=== PATIENT | male | born 1950 | race Caucasian/White ===

== ENCOUNTER 2023-04-04 08:30 | Observation (INO) | payer MEDICARE, SELFPAY ==
[2023-04-04] VITALS (8 sets, daily range): BP systolic 93–149; BP diastolic 61–101; PULSE 55–84; RESP 16–18; TEMP 36.4–36.7; O2SAT 92–99; BMI 20.8; BMI 21.0
--- NOTE | 2023-04-04 09:00 | ED_ITS ---
HPI - General Adult General Chief complaint: Urogenital-Male Stated complaint: BLOOD IN URINE Time Seen by Provider: 04/04/23 08:40 Source: patient Source information: patient Mode of arrival: walk-in Limitations: no limitations History of Present Illness HPI narrative: 73-year-old male presents to the emergency department for blood in the toilet. He urinated and defecated during the night and there was blood in it. He doesn't have any abdominal pain now. He doesn't seem take any blood thinners. He has a history of some dementia and isn't able to provide extensive history. Related Data Home Medications Medication Instructions Recorded Confirmed aspirin 81 mg chewable tablet 1 tab PO DAILY 04/04/23 04/04/23 carbidopa 25 mg-levodopa 100 mg 1 tab PO TID 04/04/23 04/04/23 tablet donepezil 10 mg tablet 10 mg PO BEDTIME 04/04/23 04/04/23 potassium chloride 20 mEq 20 meq PO BID 04/04/23 04/04/23 tablet,extended release(part/cryst) (Klor-Con M) Allergies Allergy/AdvReac Type Severity Reaction Status Date / Time Penicillins Allergy Intermediate Verified 04/04/23 08:48 PFSH PFSH Social History Smoking status: Former smoker Exam Narrative Exam Narrative: Nurses note and vital signs reviewed and patient is not hypoxic. General: The patient appears well and in no apparent distress. Patient is resting comfortably on cart. Skin: Warm, dry, no pallor noted. There is no rash noted. Head: Normocephalic, atraumatic Eye: Normal conjunctiva, no drainage Ears, Nose, Mouth, and Throat: oral mucosa is moist. Nares patent. Cardiovascular: Regular Rate and Rhythm Respiratory: Patient is in no distress, no accessory muscle use, lungs are clear to auscultation, no wheezing, rales or rhonchi Back: non-tender GI: no tenderness to palpation, no masses appreciated. No rebound, guarding, or rigidity noted. rectal portion shows no external hemorrhoids. Musculoskeletal: The patient has no evidence of calf tenderness, no pitting edema, symmetrical pulses noted bilaterally Neurological: A&O, normal speech Psychiatric: Cooperative Constitutional Vital Signs, click to edit/add: Last Vital Signs Temp 97.6 F 04/04/23 08:38 Pulse 81 04/04/23 11:26 Resp 18 04/04/23 11:26 BP 149/100 H 04/04/23 11:26 Pulse Ox 98 04/04/23 11:26 O2 Del Method Room Air 04/04/23 08:38 Course Vital Signs Vital signs: Vital Signs Temperature 97.6 F 04/04/23 08:38 Pulse Rate 84 04/04/23 08:38 Respiratory Rate 16 04/04/23 08:38 Blood Pressure 130/101 H 04/04/23 08:38 Pulse Oximetry 98 04/04/23 08:38 Oxygen Delivery Method Room Air 04/04/23 08:38 Temperature 97.6 F 04/04/23 08:38 Pulse Rate 81 04/04/23 11:26 Respiratory Rate 18 04/04/23 11:26 Blood Pressure 149/100 H 04/04/23 11:26 Pulse Oximetry 98 04/04/23 11:26 Oxygen Delivery Method Room Air 04/04/23 08:38 Medical Decision Making MDM Narrative Medical decision making narrative: The patient is found to have acute diverticulitis. He will be admitted for IV antibiotics, Cipro and Flagyl was started here. Treatment diagnosis and disposition were discussed with the patient. Differential Diagnosis Differential Diagnosis: acute diverticulitis, abscess, perforation, polyp, upper GI bleed Lab Data Lab results reviewed: Yes I reviewed the patient's lab results Labs: Lab Results 04/04/23 04/04/23 Range/Units 08:08 11:32 WBC 8.1 (4.0-11.0) 10^3/uL RBC 4.53 L (4.70-6.10) 10^6/uL Hgb 12.9 L (14.0-18.0) g/dL Hct 40.0 L (42.0-54.0) % MCV 88.3 (80.0-94.0) fL MCH 28.5 (25.9-34.0) pg MCHC 32.3 (29.9-35.2) g/dL RDW 16.0 H (11.0-15.0) % Plt Count 267 (150-450) 10^3/uL MPV 9.5 (9.5-13.5) fL Neut % (Auto) 69.5 (43.0-75.0) % Lymph % (Auto) 19.9 L (20.5-60.0) % [place] % (Auto) 8.4 (1.7-12.0) % Eos % (Auto) 1.4 (0.9-7.0) % Baso % (Auto) 0.6 (0.2-2.0) % Neut # (Auto) 5.6 (1.4-6.5) 10^3/uL Lymph # (Auto) 1.6 (1.2-3.8) 10^3/uL [place] # (Auto) 0.7 (0.3-0.8) 10^3/uL Eos # (Auto) 0.1 (0.0-0.7) 10^3/uL Baso # (Auto) 0.1 (0.0-0.1) 10^3/uL Abs Immat Gran (auto) 0.02 (0.00-0.03) 10^3/uL Imm/Tot Granulo (auto) 0.2 (0.0-0.5) % Sodium 137 (136-145) mmol/L Potassium 4.3 (3.5-5.1) mmol/L Chloride 105 (98-107) mmol/L Carbon Dioxide 24.8 (21.0-32.0) mmol/L Anion Gap 11.5 BUN 18.0 (7.0-18.0) mg/dL Creatinine 1.67 H (0.70-1.30) mg/dL Est GFR ( Amer) 49 L (>=60) Est GFR (Non-Af Amer) 41 L (>=60) BUN/Creatinine Ratio 10.8 Glucose 84 (74-106) mg/dL Calcium 8.9 (8.5-10.1) mg/dL Urine Color Lt. yellow (YELLOW) Urine Clarity Clear (CLEAR) Urine pH 5.5 (5.0-9.0) Ur Specific [place] <=1.005 A (1.005-1.025) Urine Protein Negative (NEG/TRACE) mg/dL Urine Glucose (UA) Negative (NEGATIVE) mg/dL Urine Ketones Negative (NEGATIVE) mg/dL Urine Occult Blood Negative (NEGATIVE) Urine Nitrite Negative (NEGATIVE) Urine Bilirubin Negative (NEGATIVE) Urine Urobilinogen 0.2 (0.2-1.0) EU/dL Ur Leukocyte Esterase Negative (NEGATIVE) Discharge Plan Discharge Chief Complaint: Urogenital-Male Clinical Impression: Acute diverticulitis Patient Disposition: Admitted As Inpatient Time of Disposition Decision: 12:05 Condition: Good Prescriptions / Home Meds: No Action donepezil 10 mg tablet 10 mg PO BEDTIME Patient Comments: 1-2 tabs potassium chloride [Klor-Con M20] 20 mEq tablet,ER particles/crystals 20 meq PO BID aspirin 81 mg tablet,chewable 1 tab PO DAILY carbidopa-levodopa 25-100 mg tablet 1 tab PO TID Referrals: Uche Mike MD [Primary Care Provider] - 1 week
[2023-04-04 09:11] LABS: Basophils Absolute Auto 0.1 10^3/uL (0.0-0.1); Basophils Percent Auto 0.6 % (0.2-2.0); Eosinophils Absolute Auto 0.1 10^3/uL (0.0-0.7); Eosinophils Percent Auto 1.4 % (0.9-7.0); Hemoglobin 12.9 g/dL (14.0-18.0); Immature Granulocytes Abs Auto 0.02 10^3/uL (0.00-0.03); Immature Granulocytes Pct Auto 0.2 % (0.0-0.5); Lymphocytes Absolute Auto 1.6 10^3/uL (1.2-3.8); Lymphocytes Percent Auto 19.9 % (20.5-60.0); Mean Corpuscular HGB Conc 32.3 g/dL (29.9-35.2); Mean Corpuscular Hemoglobin 28.5 pg (25.9-34.0); Mean Corpuscular Volume 88.3 fL (80.0-94.0); Mean Platelet Volume 9.5 fL (9.5-13.5); Monocytes Absolute Auto 0.7 10^3/uL (0.3-0.8); Monocytes Percent Auto 8.4 % (1.7-12.0); Neutrophils Absolute Auto 5.6 10^3/uL (1.4-6.5); Neutrophils Percent Auto 69.5 % (43.0-75.0); Platelet Count 267 10^3/uL (150-450); Red Blood Count 4.53 10^6/uL (4.70-6.10); White Blood Count 8.1 10^3/uL (4.0-11.0)
--- NOTE | 2023-04-04 09:16 | CT_ITS ---
The [address] [address] Patient Name: EFRAÍN RAMON MRN: [id number] date: 1950 Sex: M Assigned Patient Location: ER Current Patient Location: ER Accession/Order Number: [id number] Exam Date: 04/04/2023 09:53 Report Date: 04/04/2023 10:31 At the request of: ODELL RODRÍGUEZ Procedure: CT abdomen pelvis w con EXAM: CT abdomen pelvis w con HISTORY: rectal bleeding COMPARISON: 07/29/2022. TECHNIQUE: Axial CT imaging was performed through the abdomen and pelvis with intravenous contrast. Multiplanar reformats were performed. Dose reduction techniques were achieved by using automated exposure control and/or adjustment of mA and/or kV according to patient size and/or use of iterative reconstruction technique. FINDINGS: Lung bases: Chronic granulomatous calcifications are demonstrated within lung bases. GI upper: Unremarkable. Liver: Hepatic steatosis. Normal size and contour. Gallbladder: Cholecystectomy. Biliary system: No intra or extrahepatic biliary ductal dilatation. Spleen: Normal size. Pancreas: Unremarkable. Adrenal glands: Normal adrenal glands. Kidneys/ureters: Normal contours. No hydronephrosis or ureterolithiasis. No nephrolithiasis. Simple fluid attenuation bilateral renal cysts are again demonstrated. Vessels: No aneurysmal dilatation of the aorta. Atherosclerotic disease is noted. Lymph Nodes: No lymphadenopathy. Small bowel: No wall thickening or dilatation. Colon: No dilatation. Colonic diverticulosis. There is mild wall thickening and adjacent stranding associated with the proximal sigmoid colon. No active extravasation is appreciated on single phase of contrast. Appendix: No findings of appendicitis. Peritoneal cavity: No free fluid or peritoneum. Lower : Treatment related findings of the prostate. Bones: Degenerative findings without acute bony abnormality. Soft tissues: No acute finding. Additional findings: None. IMPRESSION: 1. Findings suspicious for mild, uncomplicated acute diverticulitis the proximal sigmoid colon. 2. Please see above for additional findings/discussion. Electronically authenticated by: VALENTINO CUELLAR Date: 04/04/2023 10:31
[2023-04-04 09:27] LABS: Anion Gap 11.5; BUN Creatinine Ratio 10.8; Calcium 8.9 mg/dL (8.5-10.1); Carbon Dioxide 24.8 mmol/L (21.0-32.0); Chloride 105 mmol/L (98-107); Estimated GFR (African America 49 (>=60); Estimated GFR (Non-African Ame 41 (>=60); Glucose 84 mg/dL (74-106); Potassium 4.3 mmol/L (3.5-5.1); Sodium 137 mmol/L (136-145)
[2023-04-04] MEDS: CIPROFLOXACIN IN 5 % DEXTROSE 400 MG/200 ML PIGGYBACK IV (10:44)
[2023-04-04] MEDS: METRONIDAZOLE/SODIUM CHLORIDE 500 MG/100 ML PREMIX 100 MG IV ×3 (11:44→23:13)
[2023-04-04 11:49] LABS: Bilirubin Urine NEGATIVE (NEGATIVE); Blood Urine NEGATIVE (NEGATIVE); Clarity Urine CLEAR (CLEAR); Color Urine LT. YELLOW (YELLOW); Glucose Urine UA NEGATIVE (NEGATIVE); Ketones Urine NEGATIVE (NEGATIVE); Leukocyte Esterase Urine NEGATIVE (NEGATIVE); Nitrite Urine NEGATIVE (NEGATIVE); Protein Urine NEGATIVE (NEG/TRACE); Specific Gravity Urine <=1.005 (1.005-1.025); Urobilinogen Urine 0.2 EU/dL (0.2-1.0); pH Urine 5.5 (5.0-9.0)
[2023-04-04 11:51] LABS: Urine Microscopic Indicated NO
--- NOTE | 2023-04-04 14:03 | P.HP_ITS ---
H&P: HPI History of Present Illness Chief complaint: BLOOD IN URINE Narrative: Patient managed with in ER for acute abdominal pain. Also some altered mental status. In ER found to have acute diverticulitis with complication of the altered mental status. Patient will be admitted for work-up and treatment of sa wv Review of Systems ROS Status of ROS 10 or more systems reviewed and unremarkable except as noted in history and below [facility] Medical History (Updated 04/04/23 @ 14:50 by Yancy Grayson) Surgical History (Updated 04/04/23 @ 14:50 by Yancy Grayson) Social History Smoking status: Former smoker Meds Home Medications and Allergies Home Medications Medication Instructions Recorded Confirmed Type aspirin 81 mg chewable tablet 1 tab PO DAILY 04/04/23 04/04/23 History carbidopa 25 mg-levodopa 100 mg 1 tab PO TID 04/04/23 04/04/23 History tablet donepezil 10 mg tablet 10 mg PO BEDTIME 04/04/23 04/04/23 History potassium chloride 20 mEq 20 meq PO BID 04/04/23 04/04/23 History tablet,extended release(part/cryst) (Klor-Con M) Allergies Allergy/AdvReac Type Severity Reaction Status Date / Time Penicillins Allergy Intermediate Verified 04/04/23 08:48 Exam Constitutional Vital Signs, click to edit/add: Last Vital Signs Temp 97.7 F 04/04/23 13:13 Pulse 55 L 04/04/23 13:13 Resp 18 04/04/23 13:13 BP 148/85 H 04/04/23 13:13 Pulse Ox 95 04/04/23 13:13 O2 Del Method Room Air 04/04/23 13:13 Documenting provider has reviewed patient's vital signs: yes Common normals: no apparent distress Exam limitations: altered mental status (Confusion as to time period) Respiratory Common normals: normal respiratory effort, no retractions, no use of accessory muscles and clear to auscultation bilaterally Cardio Common normals: regular rate, regular rhythm and no murmurs GI Common normals: Normal to inspection, nondistended, normoactive bowel sounds present Inspection: normal to inspection Palpation: tender Details: LLQ Neuro Speech: speech normal Gait (neuro): normal gait Sensory exam: extremities Results Labs Labs: Short CBC 04/04/23 Range/Units 08:08 WBC 8.1 (4.0-11.0) 10^3/uL Hgb 12.9 L (14.0-18.0) g/dL Hct 40.0 L (42.0-54.0) % Plt Count 267 (150-450) 10^3/uL BMP 04/04/23 08:08 Sodium 137 Potassium 4.3 Chloride 105 Carbon Dioxide 24.8 BUN 18.0 Creatinine 1.67 H Glucose 84 Calcium 8.9 Urine 04/04/23 Range/Units 11:32 Urine Color Lt. yellow (YELLOW) Urine Clarity Clear (CLEAR) Urine pH 5.5 (5.0-9.0) Ur Specific [place] <=1.005 A (1.005-1.025) Urine Protein Negative (NEG/TRACE) mg/dL Urine Glucose (UA) Negative (NEGATIVE) mg/dL Assessment and Plan Assessment and Plan (1) Acute diverticulitis: (2) Hypokalemia: (3) Parkinsons disease: Plan Uncontrolled hypertension sick and increasing abdominal pain secondary to acute diverticulitis resulting in altered mental status. Continue with IV antibiotics. If patient much improved tomorrow possible discharge to home tomorrow. Iron deficiency anemia-monitor daily Chronic kidney disease stage II-deteriorated secondary to the above-Continue with current managementRepeat labs in a.m. Mild dementia at home is on medication, will continue with that. Parkinson's disease-maintain current medication
[2023-04-04 14:35] LABS: C Reactive Protein 0.2 mg/dL (<=1.0)
[2023-04-04] MEDS: CARBIDOPA PO ×2 (14:40→17:08)
[2023-04-04] MEDS: LEVODOPA PO ×2 (14:40→17:08)
[2023-04-04] MEDS: LACTATED RINGER'S SOLUTION 1,000 ML 50 ML IV (14:40)
[2023-04-04] MEDS: HYOSCYAMINE SULFATE 0.125 MG TAB.SUBL PO ×2 (17:08→21:10)
[2023-04-04] MEDS: PANTOPRAZOLE SODIUM 40 MG VIAL IV (17:08)
[2023-04-04] MEDS: CIPROFLOXACIN IN 5 % DEXTROSE 400 MG/200 ML PIGGYBACK 200 MG IV (21:10)
[2023-04-04] MEDS: DONEPEZIL HCL 10 MG TABLET PO (21:11)
[2023-04-04] MEDS: L. ACIDOPHILUS/L.BULGARICUS 1 PACKET GRAN.PACK PO (21:11)
[2023-04-04] MEDS: POTASSIUM CHLORIDE 10 MEQ ER TABLET 20 MEQ PO (21:11)
[2023-04-05 05:05] LABS: Basophils Percent Auto 0.5 % (0.2-2.0); Eosinophils Absolute Auto 0.1 10^3/uL (0.0-0.7); Eosinophils Percent Auto 1.7 % (0.9-7.0); Hemoglobin 11.8 g/dL (14.0-18.0); Immature Granulocytes Abs Auto 0.04 10^3/uL (0.00-0.03); Immature Granulocytes Pct Auto 0.5 % (0.0-0.5); Lymphocytes Absolute Auto 1.6 10^3/uL (1.2-3.8); Lymphocytes Percent Auto 20.5 % (20.5-60.0); Mean Corpuscular HGB Conc 31.9 g/dL (29.9-35.2); Mean Corpuscular Hemoglobin 28.2 pg (25.9-34.0); Mean Corpuscular Volume 88.5 fL (80.0-94.0); Mean Platelet Volume 9.9 fL (9.5-13.5); Monocytes Absolute Auto 0.7 10^3/uL (0.3-0.8); Monocytes Percent Auto 9.3 % (1.7-12.0); Neutrophils Absolute Auto 5.1 10^3/uL (1.4-6.5); Neutrophils Percent Auto 67.5 % (43.0-75.0); Platelet Count 242 10^3/uL (150-450); Red Blood Count 4.18 10^6/uL (4.70-6.10); Red Cell Distribution Width 16.2 % (11.0-15.0); White Blood Count 7.6 10^3/uL (4.0-11.0)
[2023-04-05 05:39] LABS: Alanine Aminotransferase <6 U/L (16-63); Albumin Globulin Ratio 0.9; Albumin Level 2.9 g/dL (3.4-5.0); Alkaline Phosphatase 72 U/L (46-116); Anion Gap 10.2; Aspartate Amino Transferase 14 U/L (15-37); BUN Creatinine Ratio 10.8; Bilirubin Total 0.7 mg/dL (0.2-1.0); Calcium 8.5 mg/dL (8.5-10.1); Carbon Dioxide 24.6 mmol/L (21.0-32.0); Chloride 107 mmol/L (98-107); Estimated GFR (African America 44 (>=60); Estimated GFR (Non-African Ame 36 (>=60); Globulin 3.1 g/dL; Glucose 92 mg/dL (74-106); Potassium 4.8 mmol/L (3.5-5.1); Sodium 137 mmol/L (136-145)
[2023-04-05] MEDS: METRONIDAZOLE/SODIUM CHLORIDE 500 MG/100 ML PREMIX 100 MG IV ×2 (05:45→11:36)
[2023-04-05] MEDS: CARBIDOPA PO ×2 (05:46→11:36)
[2023-04-05] MEDS: LEVODOPA PO ×2 (05:46→11:36)
[2023-04-05 05:47] VITALS: BP 107/70; PULSE 60; RESP 18; TEMP 36.8; O2SAT 96
[2023-04-05] MEDS: HYOSCYAMINE SULFATE 0.125 MG TAB.SUBL PO ×2 (07:51→11:36)
[2023-04-05] MEDS: ENSURE HP 237 ML LIQUID PO (08:28)
[2023-04-05] MEDS: POTASSIUM CHLORIDE 10 MEQ ER TABLET 20 MEQ PO (08:28)
[2023-04-05] MEDS: L. ACIDOPHILUS/L.BULGARICUS 1 PACKET GRAN.PACK PO (08:28)
[2023-04-05] MEDS: 0.9 % SODIUM CHLORIDE 1,000 ML 500 ML IV (08:28)
[2023-04-05] MEDS: CIPROFLOXACIN IN 5 % DEXTROSE 400 MG/200 ML PIGGYBACK 200 MG IV (10:28)
--- NOTE | 2023-04-05 10:35 | P.DS_ITS ---
DS: Providers Provider Date of admission: 04/04/23 12:25 Primary care physician: Uche Mike MD Consults: 04/04/23 13:43 Physical Therapy Eval and Treat Routine DS: Diagnosis Discharge Diagnosis (1) Acute diverticulitis: (2) Hypokalemia: (3) Parkinsons disease: Plan Uncontrolled hypertension sick and increasing abdominal pain secondary to acute diverticulitis resulting in altered mental status.? Iron deficiency anemia Chronic kidney disease stage II Mild dementia at home Parkinson's disease DS: Summary Hospital Course Hospital Course: Pt admitted with altered mental status, worse than baseline, and llq abd pain and ct findings of acute diverticulitis. With altered mental status elected to admit for IV antibiotics. Pt wbc count is good this am, he feels back to baseline., Pain is much improved. ambulating well in room. Will discharge to home in improving condition, medications see list, see me in office next week Status at Discharge Functional status at discharge: uses cane/walker Overall status at discharge: patient is back to baseline Time Spent with Patient Time attestation: Total time spent providing and/or coordinating discharge services: Exam Constitutional Vital Signs, click to edit/add: Last Vital Signs Temp 98.2 F 04/05/23 05:47 Pulse 60 04/05/23 05:47 Resp 18 04/05/23 05:47 BP 107/70 04/05/23 05:47 Pulse Ox 96 04/05/23 05:47 O2 Del Method Room Air 04/05/23 05:47 Common normals: no apparent distress and oriented x3 HENMT Common normals: normocephalic Chest Common normals: inspection of chest normal Respiratory Common normals: normal respiratory effort and clear to auscultation bilaterally Cardio Common normals: regular rate, regular rhythm and no murmurs GI Common normals: Normal to inspection, nondistended, normoactive bowel sounds present, soft to palpation and non-tender (much improved) DS: Data Data Completed and Pending Labs on day of discharge: Labs from last 24 hours 04/05/23 04/04/23 04/04/23 04:20 14:05 11:32 WBC 7.6 RBC 4.18 L Hgb 11.8 L Hct 37.0 L MCV 88.5 MCH 28.2 MCHC 31.9 RDW 16.2 H Plt Count 242 MPV 9.9 Neut % (Auto) 67.5 Lymph % (Auto) 20.5 [place] % (Auto) 9.3 Eos % (Auto) 1.7 Baso % (Auto) 0.5 Neut # (Auto) 5.1 Lymph # (Auto) 1.6 [place] # (Auto) 0.7 Eos # (Auto) 0.1 Baso # (Auto) 0.0 Abs Immat Gran (auto) 0.04 H Imm/Tot Granulo (auto) 0.5 Sodium 137 Potassium 4.8 Chloride 107 Carbon Dioxide 24.6 Anion Gap 10.2 BUN 20.0 H Creatinine 1.85 H Est GFR ( Amer) 44 L Est GFR (Non-Af Amer) 36 L BUN/Creatinine Ratio 10.8 Glucose 92 Lactate 1.0 Calcium 8.5 Total Bilirubin 0.7 AST 14 L ALT <6 L Alkaline Phosphatase 72 C-Reactive Protein 0.2 Total Protein 6.0 L Albumin 2.9 L Globulin 3.1 Albumin/Globulin Ratio 0.9 Urine Color Lt. yellow Urine Clarity Clear Urine pH 5.5 Ur Specific [place] <=1.005 A Urine Protein Negative Urine Glucose (UA) Negative Urine Ketones Negative Urine Occult Blood Negative Urine Nitrite Negative Urine Bilirubin Negative Urine Urobilinogen 0.2 Ur Leukocyte Esterase Negative Discharge Plan Discharge Disposition: Home, Self-Care Condition: Good Discharge Medications: New ciprofloxacin HCl [Cipro] 500 mg tablet 500 mg PO Q12H Qty: 20 0RF metronidazole 500 mg tablet 500 mg PO TID Qty: 30 0RF Continued potassium chloride [Klor-Con M20] 20 mEq tablet,ER particles/crystals 20 meq PO BID aspirin 81 mg tablet,chewable 1 tab PO DAILY carbidopa-levodopa 25-100 mg tablet 1 tab PO TID Activity: increase activity as tolerated Diet: advance to your usual diet Patient Instructions: Diverticulitis (DC) Forms: Portal Instructions Follow Up Appointments: Follow up with Dr Mike in 1 week [phone] Discharge Date/Time: 04/05/23 12:57
[2023-04-05 12:05] VITALS: O2SAT 99
--- NOTE | 2023-04-09 10:37 | CM.DCFOLLOWU ---
Third attempt at completing a discharge follow up phone call and the patient did not answer.
== END 2023-04-05 12:57 | disposition home or self-care (01) ==
LOC: ER 12:05 → MS 16:46
PROVIDERS: Admitting Provider Family Medicine; Emergency Provider Emergency Medicine; PCP Family Medicine; Visit Provider Family Medicine
DX: K57.32 Diverticulitis of large intestine without perforation or abscess without bleeding (principal); E87.6 Hypokalemia; G20 Parkinson's disease; R41.82 Altered mental status, unspecified; D50.9 Iron deficiency anemia, unspecified; I12.9 Hypertensive chronic kidney disease with stage 1 through stage 4 chronic kidney disease, or unspecified chronic kidney disease; N18.2 Chronic kidney disease, stage 2 (mild); F02.80 Dementia in other diseases classified elsewhere, unspecified severity, without behavioral disturbance, psychotic disturbance, mood disturbance, and anxiety; Z87.891 Personal history of nicotine dependence; Z79.82 Long term (current) use of aspirin; Z79.899 Other long term (current) drug therapy
CPT/HCPCS: 36415; 74177; 80048; 80053; 81003; 83605; 85025; 86140; 94667; 94668; 94761; 96365; 96366; 96367; 96375; 96376; 99285; G0328; G0378; Q9966

== ENCOUNTER 2023-04-13 08:21 | Outpatient (OUT) | payer MEDICARE, SELFPAY ==
--- NOTE | 2023-04-13 | PCN_ITS ---
CARDIAC STRESS TEST Requesting Physician:? Procedure Date:? 04/13/2023 This was a treadmill stress test performed at the [facility] on 04/13/2023.? Informed consent was obtained.? The patient was attached to electrocardiographic monitoring.? Baseline ECG was obtained.? The patient exercised on the treadmill according to the Abner protocol for 4 minutes and 8 seconds and reached stage 2 and achieved 7 METS.? Resting heart rate was 76 BPM and peak heart rate was 127 BPM, representing 85% of maximal predicted heart rate. Resting blood pressure was 116/94 and peak blood pressure was 152/102.? Resting ECG showed normal sinus rhythm with poor R-wave progression. ECG during exercise showed evidence of sinus tachycardia with occasional PVCs.? There was no evidence of ischemic ECG changes noted.? SUMMARY OF THE FINDINGS: 1.? Negative treadmill exercise stress test for exercise induced ischemic ECG changes. 2.? Duran treadmill score of +4 is associated with intermediate risk for intermediate manager cardiac events.? 3.? Resting hypertension with appropriate blood pressure response to exercise. MTDD
== END 2023-04-13 08:22 | disposition home or self-care (01) ==
LOC: CARD 08:22
PROVIDERS: PCP Family Medicine; Visit Provider Nurse Practitioner
DX: I44.30 Unspecified atrioventricular block (principal); R94.31 Abnormal electrocardiogram [ECG] [EKG]
CPT/HCPCS: 93017

== ENCOUNTER 2023-05-18 16:18 | Outpatient (OUT) | payer MEDICARE, SELFPAY | END 2023-05-18 16:19 | disposition home or self-care (01) | LOC: PST 16:18 | PROVIDERS: PCP Family Medicine; Visit Provider Surgery | DX: Z01.818 Encounter for other preprocedural examination (principal); K62.5 Hemorrhage of anus and rectum; R93.5 Abnormal findings on diagnostic imaging of other abdominal regions, including retroperitoneum ==

== ENCOUNTER 2023-05-25 14:27 | Outpatient (OUT) | payer MEDICARE, SELFPAY | END 2023-05-25 14:28 | disposition home or self-care (01) | LOC: PST 14:27 | PROVIDERS: PCP Family Medicine; Visit Provider Surgery | DX: Z01.818 Encounter for other preprocedural examination (principal); K62.5 Hemorrhage of anus and rectum; R93.5 Abnormal findings on diagnostic imaging of other abdominal regions, including retroperitoneum ==

== ENCOUNTER 2023-05-27 08:35 | Day surgery (SDC) | payer MEDICARE, SELFPAY ==
--- NOTE | 2023-05-27 | OP_ITS ---
OPERATION DATE: ??05/27/2023 PREOPERATIVE DIAGNOSIS:? Rectal bleeding, abnormal CT scan. POSTOPERATIVE DIAGNOSIS:? Moderate sigmoid diverticulosis.? PROCEDURE:? Colonoscopy to cecum. SURGEON:? Payam Ojeda M.D. ANESTHESIA:? Monitored anesthesia care. ESTIMATED BLOOD LOSS:? Zero. INDICATIONS AND CONSENT:? Patient is a 73-year-old male presents for episode of rectal bleeding.? CT scan revealed sigmoid diverticulosis.? Indications, risks, benefits, alternatives of proceeding with colonoscopy were explained extensively to the patient, including the risks of bleeding, colon perforation or anesthetic complications.? All of his questions were answered.? Informed consent was obtained. PROCEDURE:? Patient brought to the operating room, placed in the left lateral decubitus position.? Monitored anesthesia care was provided.? Rectal exam was performed which revealed no masses or blood.? The scope was then inserted into the anal canal.? Under direct visualization was advanced.? It was advanced to the cecum where cecal markings were clearly identified.? Upon withdrawal of the scope, mucosal surfaces were carefully examined.? There were no mass lesions or polyps.? No inflammatory changes or ulcerations.? There was moderate sigmoid diverticulosis without inflammatory changes or scarring.? The scope was retroflexed in the anal canal.? There were several small hypertrophic anal papillae, prominent rectal veins, no significant hemorrhoidal disease.? The scope was then withdrawn.? Patient tolerated procedure well, was sent to recovery room in good condition. f/u screening colonoscopy should be in 10 years CC:? Uche Mike M.D. MTDSolange
[2023-05-27 09:22] VITALS: BMI 20.2
[2023-05-27] MEDS: LACTATED RINGER'S SOLUTION 1,000 ML 50 ML IV (09:28)
[2023-05-27 10:36] VITALS: BP 123/88; PULSE 71; RESP 16; O2SAT 100
[2023-05-27 10:51] VITALS: BP 124/89; PULSE 78; RESP 16; O2SAT 95
[2023-05-27 11:07] VITALS: BP 128/84; PULSE 78; RESP 16; O2SAT 95
== END 2023-05-27 11:07 | disposition home or self-care (01) ==
PROVIDERS: PCP Family Medicine; Visit Provider Surgery
PROC: (CPT 45378; principal; 2023-05-27 10:15)
DX: K62.5 Hemorrhage of anus and rectum (principal); R93.5 Abnormal findings on diagnostic imaging of other abdominal regions, including retroperitoneum; K57.30 Diverticulosis of large intestine without perforation or abscess without bleeding; J44.9 Chronic obstructive pulmonary disease, unspecified; G20 Parkinson's disease; F02.80 Dementia in other diseases classified elsewhere, unspecified severity, without behavioral disturbance, psychotic disturbance, mood disturbance, and anxiety; Z90.49 Acquired absence of other specified parts of digestive tract; Z85.46 Personal history of malignant neoplasm of prostate; Z79.82 Long term (current) use of aspirin; Z87.891 Personal history of nicotine dependence; K21.9 Gastro-esophageal reflux disease without esophagitis
CPT/HCPCS: 45378; J2704

== ENCOUNTER 2023-09-26 16:43 | Emergency (ER) | payer MEDICARE, SELFPAY ==
[2023-09-26 16:54] VITALS: BP 126/83; PULSE 76; RESP 18; TEMP 36.4; O2SAT 99; BMI 25.1
--- NOTE | 2023-09-26 17:02 | XR_ITS ---
The [address] [address] Patient Name: EFRAÍN RAMON MRN: [id number] date: 1950 Sex: M Assigned Patient Location: ER Current Patient Location: ER Accession/Order Number: [id number] Exam Date: 09/26/2023 17:31 Report Date: 09/26/2023 18:36 At the request of: KATE CONTRERAS Procedure: XR chest 2V CXR- 2 VIEW HISTORY: Shortness of breath. COMPARISON: None. TECHNIQUE: 2 views of the chest are submitted for review. FINDINGS: There is a cardiac monitoring device overlying the left chest wall. There is a punctate radio opaque density seen overlying the right costophrenic angle. The lungs are adequately expanded without evidence of infiltrate and/or effusion. The cardiac silhouette measures within normal. Pulmonary vascularity is unremarkable. Osseous structures are within normal limits for age. XR/XR chest 2V IMPRESSION: No plain film evidence for acute cardiopulmonary disease. Electronically authenticated by: OSBALDO CRUZ Date: 09/26/2023 18:36
--- NOTE | 2023-09-26 17:52 | ED_ITS ---
HPI - General Adult General Chief complaint: Upper Respiratory Infection Stated complaint: SOB Time Seen by Provider: 09/26/23 17:02 Source: patient and family Mode of arrival: walk-in Limitations: no limitations History of Present Illness HPI narrative: Patient is a 73-year-old male who presents to the emergency department for the evaluation of runny nose, cough and congestion. He states he has had sinus drainage for 2 weeks, he was on a Z-Reic last week without improvement. He was not on any steroids or inhalers. He has no history of diabetes. He denies chest pain. He states when he is coughing he finds it hard to catch his breath. He has no significant sputum production. No fevers or vomiting. His states they came to the emergency department today because she does not want to wait until midnight to bring him out here . He feels as though he is still having sinus drainage that he is coughing up. Related Data Home Medications Medication Instructions Recorded Confirmed aspirin 81 mg chewable tablet 1 tab PO DAILY 04/04/23 09/26/23 carbidopa 25 mg-levodopa 100 mg 1 tab PO TID 04/04/23 09/26/23 tablet potassium chloride 20 mEq 20 meq PO BID 04/04/23 09/26/23 tablet,extended release(part/cryst) (Klor-Con M) donepezil 10 mg tablet 10 mg PO DAILY 05/25/23 09/26/23 Previous Rx's Medication Instructions Recorded albuterol sulfate 90 mcg/actuation 2 inh inhalation Q4H PRN shortness 09/26/23 aerosol inhaler of breath or wheezing #8.5 grams cefdinir 300 mg capsule 300 mg PO BID 10 days #20 caps 09/26/23 methylprednisolone 4 mg tablets in See Rx Instructions .Route 09/26/23 a dose pack (Medrol (Eric)) .COMPLEX #21 ea Allergies Allergy/AdvReac Type Severity Reaction Status Date / Time Penicillins Allergy Intermediate Verified 05/25/23 14:39 Review of Systems ROS Constitutional Denies: fever or chills Eyes Denies: change in vision Ears, nose, mouth, and throat Reports: nasal congestion and post nasal drip; Denies: throat pain Cardiovascular Denies: chest pain Respiratory Reports: shortness of breath and cough Gastrointestinal Denies: nausea, vomiting or diarrhea Genitourinary Denies: painful urination Musculoskeletal Denies: back pain Integumentary/Breast Denies: rash Neurological Denies: headache Hematologic/Lymphatic Denies: easy bruising PFSH PFSH Medical History (Updated 09/26/23 @ 18:42 by KIMMIE Ramirez) History of brachytherapy ?Z92.3 - Personal history of irradiation (ICD-10) Tardive dyskinesia ?G24.01 - Drug induced subacute dyskinesia (ICD-10) Right foot drop ?M21.371 - Foot drop, right foot (ICD-10) Rectal bleeding ?K62.5 - Hemorrhage of anus and rectum (ICD-10) Metabolic encephalopathy ?G93.41 - Metabolic encephalopathy (ICD-10) Lumbar disc disease ?M51.9 - Unspecified thoracic, thoracolumbar and lumbosacral intervertebral disc disorder (ICD-10) Hyperuricemia ?E79.0 - Hyperuricemia without signs of inflammatory arthritis and tophaceous disease (ICD-10) Hyperlipemia ?E78.5 - Hyperlipidemia, unspecified (ICD-10) Hypertension ?I10 - Essential (primary) hypertension (ICD-10) Gout ?M10.9 - Gout, unspecified (ICD-10) GERD (gastroesophageal reflux disease) ?K21.9 - Gastro-esophageal reflux disease without esophagitis (ICD-10) Elevated PSA ?R97.20 - Elevated prostate specific antigen [PSA] (ICD-10) Dementia ?F03.90 - Unspecified dementia, unspecified severity, without behavioral d isturbance, psychotic disturbance, mood disturbance, and anxiety (ICD-10) COPD (chronic obstructive pulmonary disease) ?J44.9 - Chronic obstructive pulmonary disease, unspecified (ICD-10) Cervical spondylosis ?M47.812 - Spondylosis without myelopathy or radiculopathy, cervical region (ICD-10) Adenocarcinoma of prostate ?C61 - Malignant neoplasm of prostate (ICD-10) Bradycardia ?R00.1 - Bradycardia, unspecified (ICD-10) Hypokalemia ?E87.6 - Hypokalemia (ICD-10) Parkinsons disease ?G20 - Parkinson's disease (ICD-10) Acute diverticulitis ?K57.92 - Diverticulitis of intestine, part unspecified, without perforation or abscess without bleeding (ICD-10) Surgical History (Updated 05/25/23 @ 14:31 by Cherie Cardoso) H/O vasectomy ?Z98.52 - Vasectomy status (ICD-10) H/O bone graft ?Z98.890 - Other specified postprocedural states (ICD-10) H/O colonoscopy ?Z98.890 - Other specified postprocedural states (ICD-10) H/O lumbar discectomy ?Z98.890 - Other specified postprocedural states (ICD-10) Status post excisional biopsy ?Z98.890 - Other specified postprocedural states (ICD-10) H/O skin graft ?Z94.5 - Skin transplant status (ICD-10) Hx of cholecystectomy ?Z90.49 - Acquired absence of other specified parts of digestive tract (ICD- 10) Family History (Updated 05/25/23 @ 14:33 by hCerie Cardoso) Mother Family history of stroke Dementia Cardiac arrest Father Cardiac arrest Social History Within the past year, how often did you have a drink containing alcohol: never Score interpretation: A score less than 4 is consistent with normal alcohol consumption. Smoking status: Former smoker Non-prescribed substance use: denies use Previous occupational history: retired Highest level of school completed/degree received: Associate degree: occupatio nal, technical, vocational program Exam Narrative Exam Narrative: Gen.: Awake, alert, in no distress Head: Normocephalic, atraumatic ENT: Moist mucous membranes Respiratory: No respiratory distress, lungs clear bilaterally; speaks in full sentences, no wheezing or rhonchi noted Cardio: Regular rate and rhythm Extremities: Moves extremities equally Psych: Normal mood and affect Neuro: No focal neuro deficit Skin: Warm, dry, intact Constitutional Vital Signs, click to edit/add: Last Vital Signs Temp 97.6 F 09/26/23 16:54 Pulse 74 09/26/23 18:23 Resp 18 09/26/23 18:23 BP 126/83 09/26/23 16:54 Pulse Ox 98 09/26/23 18:23 O2 Del Method Room Air 09/26/23 16:54 Course Vital Signs Vital signs: Vital Signs Temperature 97.6 F 09/26/23 16:54 Pulse Rate 76 09/26/23 16:54 Respiratory Rate 18 09/26/23 16:54 Blood Pressure 126/83 09/26/23 16:54 Pulse Oximetry 99 09/26/23 16:54 Oxygen Delivery Method Room Air 09/26/23 16:54 Temperature 97.6 F 09/26/23 16:54 Pulse Rate 74 09/26/23 18:23 Respiratory Rate 18 09/26/23 18:23 Blood Pressure 126/83 09/26/23 16:54 Pulse Oximetry 98 09/26/23 18:23 Oxygen Delivery Method Room Air 09/26/23 16:54 Medical Decision Making MDM Narrative Medical decision making narrative: Patient with stable vital signs in the ER, no tachycardia or hypoxia. Symptoms have been present for several weeks which have progressed from sinus drainage to cough and congestion. Chest x-ray with no evidence of acute cardiopulmonary changes, patient is negative for influenza, COVID. He was given a breathing treatment and steroids in the ER. He will be placed on cefdinir, Medrol Dosepak, albuterol inhaler. Follow-up with PCP and return to the ER if symptoms change or worsen. Medical Records Medical records reviewed: Yes I reviewed the patient's medical records Lab Data Lab results reviewed: Yes I reviewed the patient's lab results Labs: Lab Results 09/26/23 Range/Units 17:05 SARS-CoV-2 (PCR) Negative (NEGATIVE) Influenza Type A Ag Negative Influenza Type B Ag Negative Imaging Data Chest x-ray: Attestation: I have reviewed the pertinent imaging results. Discharge Plan Discharge Chief Complaint: Upper Respiratory Infection Clinical Impression: Upper respiratory infection Patient Disposition: Home, Self-Care Time of Disposition Decision: 18:42 Condition: Good Prescriptions / Home Meds: New methylprednisolone [Medrol (Eric)] 4 mg tablets,dose pack See Rx Instructions .ROUTE .COMPLEX Qty: 21 0RF Rx Instructions: Taper as directed albuterol sulfate 90 mcg/actuation HFA aerosol inhaler 2 inh inhalation Q4H PRN (Reason: shortness of breath or wheezing) Qty: 8.5 0RF cefdinir 300 mg capsule 300 mg PO BID 10 Days Qty: 20 0RF No Action potassium chloride [Klor-Con M20] 20 mEq tablet,ER particles/crystals 20 meq PO BID aspirin 81 mg tablet,chewable 1 tab PO DAILY carbidopa-levodopa 25-100 mg tablet 1 tab PO TID donepezil 10 mg tablet 10 mg PO DAILY Instructions: Upper Respiratory Infection (ED) Stand Alone Forms: Portal Instructions Referrals: Uche Mike MD [Primary Care Provider] - 1 week
[2023-09-26 17:58] LABS: Influenza Virus A Antigen Negative; Influenza Virus B Antigen Negative; Internal Control Within Normal Limits; SARS-CoV-2 Ag NEGATIVE (NEGATIVE)
[2023-09-26] MEDS: METHYLPREDNISOLONE SOD SUCC PF 125 MG/2 ML VIAL IM (18:17)
[2023-09-26 18:23] VITALS: PULSE 74; RESP 18; O2SAT 98
[2023-09-26] MEDS: ALBUTEROL SULFATE 2.5 MG/3 ML VIAL NEB IH (18:23)
[2023-09-27 10:24] LABS: SARS-CoV-2 NAA NOT DETECTED (NOT DETECTE)
== END 2023-09-26 18:48 | disposition home or self-care (01) ==
PROVIDERS: Physician Assistant; Emergency Provider Emergency Medicine; PCP Family Medicine
DX: J06.9 Acute upper respiratory infection, unspecified (principal); Z79.82 Long term (current) use of aspirin; I10 Essential (primary) hypertension; E78.5 Hyperlipidemia, unspecified; M10.9 Gout, unspecified; M51.9 Unspecified thoracic, thoracolumbar and lumbosacral intervertebral disc disorder; K21.9 Gastro-esophageal reflux disease without esophagitis; J44.9 Chronic obstructive pulmonary disease, unspecified; M47.812 Spondylosis without myelopathy or radiculopathy, cervical region; G20.A1 Parkinson's disease without dyskinesia, without mention of fluctuations; F02.80 Dementia in other diseases classified elsewhere, unspecified severity, without behavioral disturbance, psychotic disturbance, mood disturbance, and anxiety; Z90.49 Acquired absence of other specified parts of digestive tract; Z87.891 Personal history of nicotine dependence
CPT/HCPCS: 71046; 87635; 87804; 87811; 94640; 96374; 99285; J2930

== ENCOUNTER 2023-10-01 13:30 | Emergency (ER) | payer MEDICARE, SELFPAY ==
[2023-10-01] VITALS (12 sets, daily range): BP systolic 145–160; BP diastolic 74–104; PULSE 58–76; RESP 14–24; TEMP 36.6; O2SAT 93–99; BMI 20.8
--- NOTE | 2023-10-01 13:48 | XR_ITS ---
The [address] [address] Patient Name: EFRAÍN RAMON MRN: [id number] date: 1950 Sex: M Assigned Patient Location: ER Current Patient Location: ER Accession/Order Number: [id number] Exam Date: 10/01/2023 14:12 Report Date: 10/01/2023 14:26 At the request of: KATE CONTRERAS Procedure: XR chest 1V EXAM: XR chest 1V HISTORY: . Weakness . COMPARISON: 09/26/2023 TECHNIQUE: Single view of the chest. FINDINGS: Heart and vascularity are unremarkable. Lungs are free of focal infiltrates. Tortuosity of the thoracic aorta is noted. Loop recorder overlies left chest. EKG leads overlie the chest. XR/XR chest 1V Impression: No acute heart or lung disease identified. Electronically authenticated by: FABIAN ESCOBEDO Date: 10/01/2023 14:26
--- NOTE | 2023-10-01 13:48 | ECG_ITS ---
The [facility] Test Date: 2023-10-01 Pat Name: EFRAÍN RAMON Department: Room: - Gender: Male Supervisor Ovens: : 1950 Requested By: LIBRADO HELM Order Number: [id number] Reading MD: LIBRADO HELM Measurements Intervals [place] Rate: 67 P: 30 WA: 146 QRS: -50 QRSD: 84 T: 51 QT: 392 QTc: 407 Interpretive Statements 1100 Sinus rhythm 1470 with occasional supraventricular premature complexes 2630 Left anterior fascicular block 8003 Consistent with pulmonary disease 9150 abnormal ECG Compared to ECG 02/08/2023 15:02:37 Sinus bradycardia no longer present Electronically Signed On 10-02-2023 6:42:28 EST by LIBRADO HELM
--- NOTE | 2023-10-01 13:50 | CT_ITS ---
The [address] [address] Patient Name: EFRAÍN RAMON MRN: [id number] date: 1950 Sex: M Assigned Patient Location: ER Current Patient Location: ER Accession/Order Number: [id number] Exam Date: 10/01/2023 14:12 Report Date: 10/01/2023 14:32 At the request of: KATE CONTRERAS Procedure: CT head/brain wo con CT head/brain wo con, 10/01/2023 2:12 PM EST INDICATION: Weakness COMPARISON: MRI of the brain 11/12/2022, noncontrast CT of the head 11/14/2022 TECHNIQUE: Axial CT images of the brain from skull base to vertex, including portions of the face and sinuses, were obtained without contrast. Multiplanar reformatted images were generated and reviewed as needed. FINDINGS: No intracranial mass, hydrocephalus, midline shift or acute hemorrhage. No extra-axial collection. Periventricular and deep white matter microvascular ischemic change. Villalpando-white matter differentiation is preserved. There is retention cyst within a ethmoid air cell and mucosal thickening within the left maxillary sinus. The remaining visualized paranasal sinuses and mastoid air cells are clear. Orbits are within normal limits. No acute skull fracture. CT/CT head/brain wo con IMPRESSION: No acute intracranial abnormality. Electronically authenticated by: LIDIA ARECHIGA Date: 10/01/2023 14:32
--- NOTE | 2023-10-01 13:51 | ED.GENADUL1 ---
HPI - General Adult General Chief complaint: Weakness Stated complaint: CHEST PAIN/HEADACHE Time Seen by Provider: 10/01/23 13:48 History of Present Illness HPI narrative: Patient is a 73-year-old male who presents to the emergency department for generalized weakness, shortness of breath and chest tightness. Patient was seen in this emergency department 5 days ago for upper respiratory symptoms x 1 week. He had been having sinus symptoms for several weeks and had already completed a course of antibiotics. He was retreated with antibiotics, steroids, and inhaler last week. He states his cough is improving but last night he developed chest tightness and shortness of breath, although he admits he has no chest tightness or chest pain at this time. He states his primary concern is that he was having difficulty walking earlier, he states he felt generally weak and since yesterday has been having difficulty ambulating. His ex- at bedside states that he was unable to walk or move his limbs earlier today. He is currently able to sit up unassisted and is moving all of his limbs independently. He apparently went to the urologist yesterday to have his kidneys checked and was able to ambulate and move without difficulty. Related Data Home Medications Medication Instructions Recorded Confirmed aspirin 81 mg chewable tablet 1 tab PO DAILY 04/04/23 10/01/23 carbidopa 25 mg-levodopa 100 mg 1 tab PO TID 04/04/23 10/01/23 tablet potassium chloride 20 mEq 20 meq PO BID 04/04/23 10/01/23 tablet,extended release(part/cryst) (Klor-Con M) donepezil 10 mg tablet 10 mg PO DAILY 05/25/23 10/01/23 albuterol sulfate 90 mcg/actuation 2 inh inhalation Q4H PRN shortness 10/01/23 10/01/23 aerosol inhaler of breath or wheezing carbidopa ER 25 mg-levodopa 100 mg 1 tab PO TID 10/01/23 10/01/23 tablet,extended release cefdinir 300 mg capsule 300 mg PO Q12H 10/01/23 10/01/23 methylprednisolone 4 mg tablets in 4 mg PO DAILY 10/01/23 10/01/23 a dose pack Allergies Allergy/AdvReac Type Severity Reaction Status Date / Time Penicillins Allergy Intermediate Verified 10/01/23 13:35 Review of Systems ROS Constitutional Denies: fever or chills Ears, nose, mouth, and throat Denies: throat pain or nasal congestion Cardiovascular Denies: chest pain Respiratory Reports: shortness of breath and cough Gastrointestinal Denies: nausea, vomiting or diarrhea Genitourinary Denies: painful urination Musculoskeletal Denies: back pain Integumentary/Breast Denies: rash Neurological Reports: headache Hematologic/Lymphatic Denies: easy bruising or easy bleeding [facility] Medical History (Updated 10/01/23 @ 16:06 by KIMMIE Ramirez) History of brachytherapy ?Z92.3 - Personal history of irradiation (ICD-10) Tardive dyskinesia ?G24.01 - Drug induced subacute dyskinesia (ICD-10) Right foot drop ?M21.371 - Foot drop, right foot (ICD-10) Rectal bleeding ?K62.5 - Hemorrhage of anus and rectum (ICD-10) Metabolic encephalopathy ?G93.41 - Metabolic encephalopathy (ICD-10) Lumbar disc disease ?M51.9 - Unspecified thoracic, thoracolumbar and lumbosacral intervertebral disc disorder (ICD-10) Hyperuricemia ?E79.0 - Hyperuricemia without signs of inflammatory arthritis and tophaceous disease (ICD-10) Hyperlipemia ?E78.5 - Hyperlipidemia, unspecified (ICD-10) Hypertension ?I10 - Essential (primary) hypertension (ICD-10) Gout ?M10.9 - Gout, unspecified (ICD-10) GERD (gastroesophageal reflux disease) ?K21.9 - Gastro-esophageal reflux disease without esophagitis (ICD-10) Elevated PSA ?R97.20 - Elevated prostate specific antigen [PSA] (ICD-10) Dementia ?F03.90 - Unspecified dementia, unspecified severity, without behavioral disturbance, psychotic disturbance, mood disturbance, and anxiety (ICD-10) COPD (chronic obstructive pulmonary disease) ?J44.9 - Chronic obstructive pulmonary disease, unspecified (ICD-10) Cervical spondylosis ?M47.812 - Spondylosis without myelopathy or radiculopathy, cervical region (ICD-10) Adenocarcinoma of prostate ?C61 - Malignant neoplasm of prostate (ICD-10) Bradycardia ?R00.1 - Bradycardia, unspecified (ICD-10) Hypokalemia ?E87.6 - Hypokalemia (ICD-10) Parkinsons disease ?G20 - Parkinson's disease (ICD-10) Acute diverticulitis ?K57.92 - Diverticulitis of intestine, part unspecified, without perforation or abscess without bleeding (ICD-10) Surgical History (Updated 05/25/23 @ 14:31 by Cherie Cardoso) H/O vasectomy ?Z98.52 - Vasectomy status (ICD-10) H/O bone graft ?Z98.890 - Other specified postprocedural states (ICD-10) H/O colonoscopy ?Z98.890 - Other specified postprocedural states (ICD-10) H/O lumbar discectomy ?Z98.890 - Other specified postprocedural states (ICD-10) Status post excisional biopsy ?Z98.890 - Other specified postprocedural states (ICD-10) H/O skin graft ?Z94.5 - Skin transplant status (ICD-10) Hx of cholecystectomy ?Z90.49 - Acquired absence of other specified parts of digestive tract (ICD-10) Family History (Updated 05/25/23 @ 14:33 by Cherie Cardoso) Mother Family history of stroke Dementia Cardiac arrest Father Cardiac arrest Social History Within the past year, how often did you have a drink containing alcohol: never Score interpretation: A score less than 4 is consistent with normal alcohol consumption. Smoking status: Former smoker Non-prescribed substance use: denies use Previous occupational history: retired Highest level of school completed/degree received: Associate degree: occupational, technical, vocational program Exam Narrative Exam Narrative: Gen.: Awake, alert, in no distress Head: Normocephalic, atraumatic ENT: Moist mucous membranes Respiratory: No respiratory distress, lungs clear bilaterally; speaks in full sentences, no coughing noted Cardio: Regular rate and rhythm Gastrointestinal: Abdomen is soft, nondistended and nontender to palpation Extremities: Moves extremities equally, no injuries noted Psych: Normal mood and affect Neuro: No focal neuro deficit Skin: Warm, dry, intact Constitutional Vital Signs, click to edit/add: Last Vital Signs Temp 98 F 10/01/23 13:35 Pulse 67 10/01/23 15:04 Resp 16 10/01/23 15:04 BP 160/74 H 10/01/23 15:04 Pulse Ox 99 10/01/23 15:04 O2 Del Method Room Air 10/01/23 15:04 Course Vital Signs Vital signs: Vital Signs Temperature 98 F 10/01/23 13:35 Pulse Rate 76 10/01/23 13:35 Respiratory Rate 18 10/01/23 13:35 Blood Pressure 159/104 H 10/01/23 13:35 Pulse Oximetry 95 10/01/23 13:35 Oxygen Delivery Method Room Air 10/01/23 13:35 Temperature 98 F 10/01/23 13:35 Pulse Rate 67 10/01/23 15:04 Respiratory Rate 16 10/01/23 15:04 Blood Pressure 160/74 H 10/01/23 15:04 Pulse Oximetry 99 10/01/23 15:04 Oxygen Delivery Method Room Air 10/01/23 15:04 Medical Decision Making MDM Narrative Medical decision making narrative: Patient with no active complaints of chest pain or shortness of breath in the emergency department. He maintains normal vital signs. He and his ex- admit that his cough is better. He has no difficulty moving his extremities or ambulating to urinate in the ER. CT of the brain, repeat chest x-ray, lab studies show mildly elevated BUN but otherwise unremarkable labs. He was treated with IV fluids in the ER. He has no complaints of pain. No falls or syncope. I discussed the case with Dr. Mike, at this time there is no indication for emergent admission and the patient can be seen in the office tomorrow. Stable at time of reevaluation by attending physician and discharge. Medical Records Medical records reviewed: Yes I reviewed the patient's medical records Lab Data Lab results reviewed: Yes I reviewed the patient's lab results Labs: Lab Results 10/01/23 10/01/23 Range/Units 14:02 14:40 WBC 9.4 (4.0-11.0) 10^3/uL RBC 5.15 (4.70-6.10) 10^6/uL Hgb 14.3 (14.0-18.0) g/dL Hct 45.8 (42.0-54.0) % MCV 88.9 (80.0-94.0) fL MCH 27.8 (25.9-34.0) pg MCHC 31.2 (29.9-35.2) g/dL RDW 14.6 (11.0-15.0) % Plt Count 258 (150-450) 10^3/uL MPV 10.4 (9.5-13.5) fL Neut % (Auto) 81.0 H (43.0-75.0) % Lymph % (Auto) 12.7 L (20.5-60.0) % Miller % (Auto) 5.7 (1.7-12.0) % Eos % (Auto) 0.2 L (0.9-7.0) % Baso % (Auto) 0.1 L (0.2-2.0) % Neut # (Auto) 7.6 H (1.4-6.5) 10^3/uL Lymph # (Auto) 1.2 (1.2-3.8) 10^3/uL Miller # (Auto) 0.5 (0.3-0.8) 10^3/uL Eos # (Auto) 0.0 (0.0-0.7) 10^3/uL Baso # (Auto) 0.0 (0.0-0.1) 10^3/uL Abs Immat Gran (auto) 0.03 (0.00-0.03) 10^3/uL Imm/Tot Granulo (auto) 0.3 (0.0-0.5) % PT 10.4 (9.0-11.6) sec INR 0.98 Sodium 141 (136-145) mmol/L Potassium 5.2 H (3.5-5.1) mmol/L Chloride 106 (98-107) mmol/L Carbon Dioxide 26.4 (21.0-32.0) mmol/L Anion Gap 13.8 BUN 28.0 H (7.0-18.0) mg/dL Creatinine 1.82 H (0.70-1.30) mg/dL Est GFR ( Amer) 45 L (>=60) Est GFR (Non-Af Amer) 37 L (>=60) BUN/Creatinine Ratio 15.4 Glucose 97 (74-106) mg/dL Lactate 1.4 (0.4-2.0) mmol/L Calcium 8.9 (8.5-10.1) mg/dL Magnesium 2.0 (1.8-2.4) mg/dL Total Bilirubin 0.9 (0.2-1.0) mg/dL AST 15 (15-37) U/L ALT 7 L (16-63) U/L Alkaline Phosphatase 78 (46-116) U/L Troponin I High Sens 4.9 (4.0-76.1) pg/mL NT-Pro-B Natriuret Pep 165.0 (<=900.0) pg/mL Total Protein 6.7 (6.4-8.2) g/dL Albumin 3.5 (3.4-5.0) g/dL Globulin 3.2 g/dL Albumin/Globulin Ratio 1.1 TSH 0.913 (0.358-3.740) uIU/mL Urine Color Lt. yellow (YELLOW) Urine Clarity Clear (CLEAR) Urine pH 6.0 (5.0-9.0) Ur Specific [place] 1.025 (1.005-1.025) Urine Protein Negative (NEG/TRACE) mg/dL Urine Glucose (UA) Negative (NEGATIVE) mg/dL Urine Ketones Negative (NEGATIVE) mg/dL Urine Occult Blood Negative (NEGATIVE) Urine Nitrite Negative (NEGATIVE) Urine Bilirubin Negative (NEGATIVE) Urine Urobilinogen 0.2 (0.2-1.0) EU/dL Ur Leukocyte Esterase Negative (NEGATIVE) Imaging Data CT scan - head: Attestation: I have reviewed the pertinent imaging results. Radiologist's impression: ITS Impressions Chest X-Ray 10/01/23 13:48 Impression: No acute heart or lung disease identified. Electronically authenticated by: FABIAN ESCOBEDO Date: 10/01/2023 14:[address] 10/01/23 13:50 IMPRESSION: No acute intracranial abnormality. Electronically authenticated by: LIDIA ARECHIGA Date: 10/01/2023 14:32 Chest x-ray: Attestation: I have reviewed the pertinent imaging results. Radiologist's impression: ITS Impressions Chest X-Ray 10/01/23 13:48 Impression: No acute heart or lung disease identified. Electronically authenticated by: FABIAN ESCOBEDO Date: 10/01/2023 14:[address] 10/01/23 13:50 IMPRESSION: No acute intracranial abnormality. Electronically authenticated by: LIDIA ARECHIGA Date: 10/01/2023 14:32 ECG Data Attestation: I personally reviewed and interpreted this ECG as follows: (Normal sinus rhythm at a rate of 67 with occasional PVC, no acute ST elevation or ectopy. EKG reviewed by attending physician) Discharge Plan Discharge Chief Complaint: Weakness Clinical Impression: Weakness Patient Disposition: Home, Self-Care Time of Disposition Decision: 16:06 Condition: Good Prescriptions / Home Meds: No Action albuterol sulfate 90 mcg/actuation HFA aerosol inhaler 2 inh INHALATION Q4H PRN (Reason: shortness of breath or wheezing) carbidopa-levodopa 25-100 mg tablet extended release 1 tab PO TID methylprednisolone 4 mg tablets,dose pack 4 mg PO DAILY cefdinir 300 mg capsule 300 mg PO Q12H potassium chloride [Klor-Con M20] 20 mEq tablet,ER particles/crystals 20 meq PO BID aspirin 81 mg tablet,chewable 1 tab PO DAILY carbidopa-levodopa 25-100 mg tablet 1 tab PO TID donepezil 10 mg tablet 10 mg PO DAILY Instructions: Weakness (ED) Stand Alone Forms: Portal Instructions Referrals: Uche Mike MD [Primary Care Provider] - 10/02/23
[2023-10-01] MEDS: 0.9 % SODIUM CHLORIDE 1,000 ML 999 ML IV (13:54)
[2023-10-01 14:10] LABS: Bilirubin Urine NEGATIVE (NEGATIVE); Blood Urine NEGATIVE (NEGATIVE); Clarity Urine CLEAR (CLEAR); Color Urine LT. YELLOW (YELLOW); Glucose Urine UA NEGATIVE (NEGATIVE); Ketones Urine NEGATIVE (NEGATIVE); Leukocyte Esterase Urine NEGATIVE (NEGATIVE); Nitrite Urine NEGATIVE (NEGATIVE); Protein Urine NEGATIVE (NEG/TRACE); Specific Gravity Urine 1.025 (1.005-1.025); Urobilinogen Urine 0.2 EU/dL (0.2-1.0)
[2023-10-01 14:23] LABS: Urine Microscopic Indicated NO
[2023-10-01 15:04] LABS: INR 0.98; Prothrombin Time 10.4 sec (9.0-11.6)
[2023-10-01 15:07] LABS: Lactate/Lactic Acid 1.4 mmol/L (0.4-2.0)
[2023-10-01 15:14] LABS: Alanine Aminotransferase 7 U/L (16-63); Albumin Globulin Ratio 1.1; Albumin Level 3.5 g/dL (3.4-5.0); Alkaline Phosphatase 78 U/L (46-116); Anion Gap 13.8; Aspartate Amino Transferase 15 U/L (15-37); BUN Creatinine Ratio 15.4; Bilirubin Total 0.9 mg/dL (0.2-1.0); Calcium 8.9 mg/dL (8.5-10.1); Carbon Dioxide 26.4 mmol/L (21.0-32.0); Chloride 106 mmol/L (98-107); Estimated GFR (African America 45 (>=60); Estimated GFR (Non-African Ame 37 (>=60); Globulin 3.2 g/dL; Glucose 97 mg/dL (74-106); Potassium 5.2 mmol/L (3.5-5.1); Sodium 141 mmol/L (136-145); Thyroid Stimulating Hormone 0.913 uIU/mL (0.358-3.740); Total Protein 6.7 g/dL (6.4-8.2); Troponin I High Sensitivity 4.9 pg/mL (4.0-76.1)
[2023-10-01 15:16] LABS: Basophils Percent Auto 0.1 % (0.2-2.0); Eosinophils Percent Auto 0.2 % (0.9-7.0); Hematocrit 45.8 % (42.0-54.0); Hemoglobin 14.3 g/dL (14.0-18.0); Immature Granulocytes Abs Auto 0.03 10^3/uL (0.00-0.03); Immature Granulocytes Pct Auto 0.3 % (0.0-0.5); Lymphocytes Absolute Auto 1.2 10^3/uL (1.2-3.8); Lymphocytes Percent Auto 12.7 % (20.5-60.0); Mean Corpuscular HGB Conc 31.2 g/dL (29.9-35.2); Mean Corpuscular Hemoglobin 27.8 pg (25.9-34.0); Mean Corpuscular Volume 88.9 fL (80.0-94.0); Mean Platelet Volume 10.4 fL (9.5-13.5); Monocytes Absolute Auto 0.5 10^3/uL (0.3-0.8); Monocytes Percent Auto 5.7 % (1.7-12.0); Neutrophils Absolute Auto 7.6 10^3/uL (1.4-6.5); Platelet Count 258 10^3/uL (150-450); Red Blood Count 5.15 10^6/uL (4.70-6.10); Red Cell Distribution Width 14.6 % (11.0-15.0); White Blood Count 9.4 10^3/uL (4.0-11.0)
== END 2023-10-01 16:25 | disposition home or self-care (01) ==
PROVIDERS: Physician Assistant; Emergency Provider Emergency Medicine; PCP Family Medicine
DX: R53.1 Weakness (principal); R06.02 Shortness of breath; Z79.82 Long term (current) use of aspirin; Z79.899 Other long term (current) drug therapy; Z92.3 Personal history of irradiation; M51.9 Unspecified thoracic, thoracolumbar and lumbosacral intervertebral disc disorder; E78.5 Hyperlipidemia, unspecified; I10 Essential (primary) hypertension; M10.9 Gout, unspecified; K21.9 Gastro-esophageal reflux disease without esophagitis; F03.90 Unspecified dementia, unspecified severity, without behavioral disturbance, psychotic disturbance, mood disturbance, and anxiety; J44.9 Chronic obstructive pulmonary disease, unspecified; M47.812 Spondylosis without myelopathy or radiculopathy, cervical region; G20.A1 Parkinson's disease without dyskinesia, without mention of fluctuations; M21.371 Foot drop, right foot; Z85.46 Personal history of malignant neoplasm of prostate; Z98.890 Other specified postprocedural states; Z94.5 Skin transplant status; Z90.49 Acquired absence of other specified parts of digestive tract; Z98.52 Vasectomy status; Z87.891 Personal history of nicotine dependence
CPT/HCPCS: 36415; 70450; 71045; 80053; 81003; 83605; 83735; 83880; 84443; 84484; 85025; 85610; 93005; 99285

== ENCOUNTER 2023-10-03 08:49 | Outpatient (OUT) | payer MEDICARE, SELFPAY ==
--- NOTE | 2023-10-03 08:51 | US_ITS ---
The [address] [address] Patient Name: EFRAÍN RAMON MRN: [id number] date: 1950 Sex: M Assigned Patient Location: US Current Patient Location: US Accession/Order Number: [id number] Exam Date: 10/03/2023 08:55 Report Date: 10/03/2023 10:05 At the request of: NON-STAFF PHYSICIAN Procedure: US renal BI US renal BI EXAM DATE: 10/03/2023 6:55 AM MST COMPARISON: CT abdomen pelvis 04/04/2023. INDICATION: Chronic kidney disease stage III. TECHNIQUE: Real-time ultrasound scanning of the kidneys and bladder was performed by the development scientist. [employer] Screen Watcher static images are submitted for review. FINDINGS: Right Kidney: The right kidney measures 9 x 4.7 x 4.6 cm. No hydronephrosis. No shadowing calculi. Superior pole renal cyst measures 2.1 x 2.1 x 2 cm. Renal cortex measures 0.9 cm. Left Kidney: The left kidney measures 1.4 x 4.6 x 4.8 cm. No hydronephrosis. No shadowing calculi. Multiple renal cysts are seen. Index renal cysts measure 4.7 x 4.6 x 4.1 cm (inferior pole) and 1.8 x 1.9 x 1.6 cm (superior pole). Renal cortex measures 1.1 cm. Bladder: Bladder volume measures up to 599 mL. No focal or diffuse bladder wall thickening noted. Ureteral jets were not interrogated. US/US renal BI IMPRESSION: 1. Left greater than right renal cysts. 2. No hydronephrosis. Electronically authenticated by: SALAZAR BUCKLEY Date: 10/03/2023 10:05
--- OUTSIDE RECORDS SUMMARY | 2023-10-03 08:52 | XMS_ITS | CCD ---
Author Name Unknown Address [address] [facility] [address] [place] [address] Organization [facility] Care Team Providers Care Head Sawyer Automatic Name Role Phone MARCIA, DR FABIAN Guadararma Consulting Unavailable HIGHLANDER, KIMBERLI Narvaez Admitting Unavailable HIGHLANDER, PETER D Attending Unavailable HOY ., DR PAVON Primary Care Unavailable HIGHLANDER, PETER D Consulting Unavailable SHAWANDA BLEVINS Consulting Unavailable MALLORY ., AMBER RUBI Consulting Unavailable GEMBUSJUSTA Consulting Unavailable HOY ., DR PAVON Primary Care Unavailable HIGHLANDER, PETER D Admitting Unavailable HIGHLANDER, PETER D Attending Unavailable HIGHLANDER, PETER D Attending Unavailable HIGHLANDER, PETER D Admitting Unavailable HIGHLANDER, PETER D Consulting Unavailable HOY ., DR PAVON Primary Care Unavailable KESHA LE Consulting Unavailable HOY ., DR PAVON Primary Care Unavailable HIGHLANDER, PETER D Admitting Unavailable HIGHLANDER, PETER D Attending Unavailable HIGHLANDER, PETER D Admitting Unavailable HIGHLANDER, PETER D Consulting Unavailable HIGHLANDER, PETER D Attending Unavailable HOY ., DR PAVON Primary Care Unavailable HIGHLANDER, PETER D Attending Unavailable HIGHLANDER, PETER D Admitting Unavailable HIGHLANDER, PETER D Consulting Unavailable HOY ., DR PAVON Primary Care Unavailable HIGHLANDER, PETER D Attending Unavailable HIGHLANDER, PETER D Admitting Unavailable HIGHLANDER, PETER D Consulting Unavailable HOY ., DR PAVON Primary Care Unavailable NOÉ .JOVANI Consulting Unavailable NOÉ ., JOVANI Attending Unavailable NOÉ ., JOVANI Admitting Unavailable HOY ., DR PAVON Primary Care Unavailable HOY ., DR PAVON Primary Care Unavailable MARCIA, DR FABIAN Guadarrama Consulting Unavailable KRYSTIAN, MANOLO Admitting Unavailable KRYSTIAN, MANOLO Attending Unavailable KRYSTIAN, MANOLO Consulting Unavailable KRYSTIAN, MANOLO Admitting Unavailable KRYSTIAN, MANOLO Attending Unavailable HOY ., DR PAVON Primary Care Unavailable JOSEPH, DR VIC Dennison Consulting Unavailable MANOLO BOLAND Consulting Unavailable MANOLO BOLAND Attending Unavailable ALICJA ., DR PAVON Primary Care Unavailable WEST, DR FABIAN Guadarrama Consulting Unavailable KRYSTIAN, MANOLO Admitting Unavailable MANOLO BOLAND Consulting Unavailable ALICJA ., DR PAVON Primary Care Unavailable WEST, DR FABIAN Guadarrama Consulting Unavailable KOFFI, KIMBERLI Narvaez Admitting Unavailable HIGHLANDER, KIMBERLI Narvaez Attending Unavailable HIGHLKIMBERLI ALCANTARA Consulting Unavailable HOY ., DR PAVON Primary Care Unavailable HOY ., DR PAVON Admitting Unavailable HOY ., DR PAVON Consulting Unavailable HOConsuelo ., DR PAVON Attending Unavailable AHDOOT, CHINMAY Consulting Unavailable JAMES, VINAYA Consulting Unavailable YEH, MICHELINE Consulting Unavailable FALVO, MAYUR Consulting Unavailable ROCK, BRIEN Consulting Unavailable LIBRADO HAIDER Consulting Unavailable SISTER, POAL Consulting Unavailable YOBANY, YOLANDA LUUBAL Consulting Unavailable QUEENIE ., DEBBIE Consulting Unavailable JUNE ., CARIDAD Consulting Unavailable HOConsuelo ., DR PAVON Primary Care Unavailable HOY ., DR PAVON Admitting Unavailable HOY ., DR PAVON Consulting Unavailable HOConsuelo ., DR PAVON Attending Unavailable WEST, DR FABIAN Guadarrama Consulting Unavailable RENA ., GIOVANNI Consulting Unavailable MARKER, ASH Consulting Unavailable ALEX, LOURDES Consulting Unavailable FABIAN DSOUZA Consulting Unavailable ANGELA POWERS Consulting Unavailable LIBRADO HAIDER Consulting Unavailable SISTER, OPAL Consulting Unavailable BALJIT CHEN Consulting Unavailable ZONIA LAWRENCE Consulting Unavailable ALICJA ., DR PAVON Primary Care Unavailable HOY ., DR PAVON Admitting Unavailable HOConsuelo ., DR PAVON Attending Unavailable HOConsuelo ., DR PAVON Consulting Unavailable JOSEPH, DR VIC Dennison Consulting Unavailable ANEL, DR ZACH Valero Consulting Unavailable RENA ., GIOVANNI Consulting Unavailable MOUKARBEL, DR ASHFORD Consulting Unavailable NOÉ ., JOVANI Consulting Unavailable PRIYA, GRACIE Consulting Unavailable RHYS PARRA Consulting Unavailable Librado Mike Primary Care Physician [phone] Baljit DOSHI Attending Unavailable Baljit DOSHI Attending Unavailable MISSAEL CHAPARRO Attending Unavailable MISSAEL CHAPARRO Admitting Unavailable MISSAEL CHAPARRO Attending Unavailable ROBIN CAMARENA Attending Unavailable ROBIN CAMARENA Attending Unavailable Librado Mike MD Primary Care Provider Allergies Allergy Classification Reported Allergen(s) Allergy Type Date of Onset Reaction(s) Facility (2 sources) Penicillins; Translations: [PENICILLINS] Drug allergy (disorder) 4 [facility] Repository (2 sources) Penicillin; Translations: [penicillin] Drug Allergy Weal (disorder) [facility] [place] (1 source) Penicillins Propensity to adverse reactions to drug 0 [facility] Medications Current Medications Medication Drug Class(es) Dates Sig (Normalized) Sig (Original) amLODIPine 10 mg oral tablet (1 source) Dihydropyridine Calcium Channel Rohan Start: 07-21-2023 End: 07-20-2024 amLODIPine (NORVASC) 10 mg tablet Take 1 tablet (10 mg total) by mouth. 0 07/21/2023 07/20/2024 Active aspirin 81 mg chewable tablet (2 sources) Platelet Aggregation Inhibitor, Nonsteroidal Anti-inflammatory Drug Start: 08-19-2023 End: 02-15-2024 aspirin 81 mg chewable tablet Chew 1 tablet (81 mg total) and swallow in the morning for 180 days. 90 tablet 1 08/19/2023 02/15/2024 Active Start: 04-22-2023 take 1 tablet by elba th once daily aspirin 81 mg Oral EC Tab 81 mg = 1 tab(s), Oral, Daily, Refills(s) 0 Start Date: 04/22/23 Status: Ordered baclofen 10 mg oral tablet (1 source) gamma-Aminobutyric Acid-ergic Agonist Start: 09-18-2023 take 1 tablet by mouth once daily as needed for muscle spasms baclofen (LIORESAL) 10 mg tablet Indications: Chronic bilateral low back pain, unspecified whether sciatica present Take 1 tablet (10 mg total) by mouth nightly as needed for muscle spasms. 30 tablet 3 09/18/2023 Active carbidopa 25 mg / levodopa 100 mg extended release oral tablet (3 sources) Aromatic Amino Acid Decarboxylation Inhibitor, Aromatic Amino Acid Start: 08-26-2023 take 1 tablet by mouth three times daily before mealtime carbidopa-levodop a (SINEMET CR) 25-100 mg per CR tablet Indications: Parkinsonism, unspecified Parkinsonism type Take 1 tablet by mouth 3 (three) times a day. Please take at 0600/1200/1800, 30-45 mins before meals 270 tablet 1 08/26/2023 Active Start: 08-24-2023 take 1 tablet by elba th three times daily after mealtime carbidopa-levodopa (SINEMET) 25-100 mg per tablet Indications: Parkinsonism, unspecified Parkinsonism type Take 1 tablet by mouth 3 (three) times a day. Please take at 0600/1200/1800 30-45 mins after meals 270 tablet 1 08/24/2023 Active Start: 04-22-2023 carbidopa-levo dopa 25 mg-100 mg ER Tab Refill(s) 0 Start Date: 04/22/23 Status: Ordered donepezil hydrochloride 10 mg oral tablet (2 sources) Start: 04-22-2023 take 1 tablet by mouth in the morning donepeziL (ARICEPT) 10 mg tablet Take 1 tablet (10 mg total) by mouth in the morning. 0 04/22/2023 Active hydrALAZINE hydrochloride 10 mg oral tablet (1 source) Arteriolar Vasodilator Start: 08-13-2023 End: 08-12-2024 hydrALAZINE (APRESOLINE) 10 mg tablet Take 1 tablet (10 mg total) by mouth. 0 08/13/2023 08/12/2024 Active metoprolol tartrate 25 mg oral tablet (1 source) beta-Adrenergic Rohan take 1 tablet by mouth in the morning, then take 1 tablet by mouth at bedtime metoprolol tartrate (LOPRESSOR) 25 mg tablet Take 1 tablet (25 mg total) by mouth in the morning and 1 tablet (25 mg total) before bedtime. 0 Active Completed/Discontinued Medications Medication Drug Class(es) Dates Sig (Normalized) Sig (Original) potassium chloride 20 meq extended release oral tablet (2 sources) Start: 04-22-2023 take 1 tablet by mouth twice daily potassium chloride 20 mEq ER Tab 20 mEq = 1 tab(s), Oral, BID, Refills(s) 0 Start Date: 04/22/23 Status: Ordered Start: 03-05-2023 take 1 tablet by elba th in the morning KLOR-CON M20 20 mEq CR tablet Take 1 tablet (20 mEq total) by mouth in the morning and 1 tablet (20 mEq total) in the evening. Take before meals. 0 03/05/2023 Active Problems Active Problems Problem Classification Problem Date Documented Da te Episodic/Chronic Abdominal pain (1 source) Unspecified abdominal pain; Translations: [UNSPECIFIED ABDOMINAL PAIN] Onset: 3 Episodic Acquired foot deformities (5 sources) Hallux rigidus, right foot; Translations: [HALLUX RIGIDUS RIGHT FOOT] Onset: 2 Chronic Acquired foot deformities (1 source) Hallux rigidus, left foot; Translations: [HALLUX RIGIDUS LEFT FOOT] Onset: 2 Chronic Acquired foot deformities (1 source) Foot-drop 05-28-2020 Episodic Acute and unspecified renal failure (1 source) Acute kidney failure, unspecified; Translations: [ACUTE KIDNEY FAILURE UNSPECIFIED] Onset: 3 Episodic Biliary tract disease (2 sources) Biliary calculus; Translations: [Chronic cholecystitis with calculus] 05-30-2020 Episodic Cancer of prostate (2 sources) Adenocarcinoma of prostate; Translations: [Malignant tumor of prostate] Onset: 0 05-28-2020 Chronic Cancer of prostate (1 source) Personal history of malignant neoplasm of prostate; Translations: [PERSONAL HX MALIG NEOPLASM PROSTATE] Onset: 3 Episodic Cardiac dysrhythmias (4 sources) Bradycardia, unspecified; Translations: [Bradycardia] Onset: 3 04-22-2023 Episodic Chronic kidney disease (2 sources) Chronic kidney disease, stage 2 (mild); Translations: [Chronic kidney disease] Onset: 3 04-22-2023 Chronic Chronic obstructive pulmonary disease and bronchiectasis (2 sources) Chronic obstructive pulmonary disease with (acute) exacerbation; Translations: [Chronic obstructive lung disease] Onset: 2 04-22-2023 Chronic Chronic ulcer of skin (6 sources) Pressure ulcer of right heel, stage 1; Translations: [Chronic ulcer of foot] Onset: 3 Chronic Conduction disorders (2 sources) Unspecified atrioventricular block; Translations: [Unspecified atrioventricular block] Onset: 3 Chronic Deficiency and other anemia (1 source) Iron deficiency anemia, unspecified; Translations: [IRON DEFICIENCY ANEMIA UNSPECIFIED] Onset: 3 Episodic Delirium, dementia, and amnestic and other cognitive disorders (6 sources) Dementia in other diseases classified elsewhere without behavioral disturbance; Translations: [Dementia] Onset: 3 04-22-2023 Chronic Diseases of white blood cells (1 source) Elevated white blood cell count, unspecified; Translations: [ELEVATED WHITE BLOOD CELL COUNT UNS] Onset: 2 Chronic Disorders of lipid metabolism (3 sources) Pure hypercholesterolemia, unspecified; Translations: [Hyperlipidemia, unspecified] Onset: 3 05-28-2020 Chronic Esophageal disorders (2 sources) Gastro-esophageal reflux disease without esophagitis; Translations: [Gastroesophageal reflux disease] Onset: 2 04-22-2023 Chronic Essential hypertension (2 sources) Essential (primary) hypertension; Translations: [Hypertensive disorder] Onset: 3 05-28-2020 Chronic Fluid and electrolyte disorders (6 sources) Hypokalemia; Translations: [Hypo-osmolality and hyponatremia] Onset: 3 Episodic Gastrointestinal hemorrhage (2 sources) Hemorrhage of rectum and anus; Translations: [Hemorrhage of anus and rectum] Onset: 3 Episodic Genitourinary symptoms and ill-defined conditions (2 sources) Retention of urine; Translations: [Retention of urine, unspecified] Onset: 0 09-18-2023 Episodic Gout and other crystal arthropathies (4 sources) Gout, unspecified; Translations: [Idiopathic gout, left ankle and foot] Onset: 2 04-22-2023 Chronic Hypertension with complications and secondary hypertension (3 sources) Hypertensive chronic kidney disease with stage 1 through stage 4 chronic kidney disease, or unspecified chronic kidney disease; Translations: [Hypertensive heart disease without heart failure] Onset: 3 Chronic Malaise and fatigue (2 sources) Weakness; Translations: [WEAKNESS] Onset: 3 Episodic Nutritional deficiencies (1 source) Unspecified severe protein-calorie malnutrition; Translations: [UNS SEVERE PROTEIN-CALORIE MLNUTRIT] Onset: 2 Chronic Osteoarthritis (1 source) Unspecified osteoarthritis, unspecified site; Translations: [UNSPECIFIED OSTEOARTHRITIS UNS SITE] Onset: 3 Chronic Other aftercare (1 source) Other terminal make up operator (current) drug therapy; Translations: [OTH CORRECTION 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 THERAPY] Onset: 3 Episodic Other aftercare (1 source) keno terminal operator (current) use of aspirin; Translations: [CORRECTION CURRENT USE OF ASPIRIN] Onset: 3 Episodic Other connective tissue disease (5 sources) Pain in right foot; Translations: [PAIN IN RIGHT FOOT] Onset: 3 Episodic Other connective tissue disease (1 source) Muscle weakness (generalized); Translations: [MUSCLE WEAKNESS GENERALIZED] Onset: 3 Episodic Other hereditary and degenerative nervous system conditions (3 sources) Tardive dyskinesia; Translations: [Drug induced subacute dyskinesia] Onset: 3 04-22-2023 Episodic Other injuries and conditions due to external causes (1 source) History of falling; Translations: [HISTORY OF FALLING] Onset: 3 Episodic Other nervous system disorders (1 source) Metabolic encephalopathy; Translations: [METABOLIC ENCEPHALOPATHY] Onset: 2 Chronic Other nervous system disorders (1 source) Metabolic encephalopathy 04-22-2023 Chronic Other nervous system disorders (2 sources) Abnormal gait; Translations: [Unsteadiness on feet] Onset: 3 09-18-2023 Episodic Other nutritional; endocrine; and metabolic disorders (1 source) Hyperuricemia 05-28-2020 Episodic Other nutritional; endocrine; and metabolic disorders (1 source) Overweight 05-12-2023 Episodic Other nutritional; endocrine; and metabolic disorders (1 source) Overweight in adulthood with body mass index of 25 or more but less than 30 05-12-2023 Episodic Other skin disorders (1 source) Epidermoid cyst of skin of back 08-07-2020 Episodic Other skin disorders (1 source) Infection of sebaceous cyst 07-31-2020 Episodic Pancreatic disorders (not diabetes) (1 source) Gallstone acute pancreatitis 05-28-2020 Episodic Parkinson`s disease (5 sources) Parkinson's disease; Translations: [Parkinson's disease] Onset: 3 04-22-2023 Chronic Residual codes; unclassified (1 source) Insomnia co-occurrent and due to medical condition; Translations: [Insomnia due to medical condition] 09-18-2023 Chronic Residual codes; unclassified (1 source) Acquired absence of other specified parts of digestive tract; Translations: [ACQ ABSENCE OTH PART DIGESTV TRACT] Onset: 3 Episodic Residual codes; unclassified (1 source) Disorientation, unspecified; Translations: [DISORIENTATION UNSPECIFIED] Onset: 3 Episodic Residual codes; unclassified (2 sources) Other specified postprocedural states; Translations: [Other specified postprocedural states] Onset: 3 Episodic Screening and history of mental health and substance abuse codes (1 source) Personal history of nicotine dependence; Translations: [PERSONAL HISTORY OF NICOTINE DEPEND] Onset: 3 Episodic Spondylosis; intervertebral disc disorders; other back problems (5 sources) Cervical disc disorder, unspecified, unspecified cervical region; Translations: [Cervical spondylosis] Onset: 3 04-22-2023 Chronic Spondylosis; intervertebral disc disorders; other back problems (3 sources) Radiculopathy, cervical region; Translations: [Lumbar disc prolapse with radiculopathy] Onset: 3 05-28-2020 Episodic Syncope (2 sources) Syncope and collapse; Translations: [Syncope and collapse] Onset: 3 Episodic Unclassified (2 sources) Parkinsonism; Translations: [Parkinsonism, unspecified Parkinsonism type] Onset: 3 09-18-2023 Chronic Unclassified (1 source) CONTACT W/AND (SUSP) EXPOS COVID-19; Translations: [CONTACT W/AND (SUSP) EXPOS COVID-19] Onset: 2 Unclassified (1 source) ACIDOSIS UNSPECIFIED; Translations: [ACIDOSIS UNSPECIFIED] Onset: 2 Unclassified (1 source) CHRN KIDNEY DISEASE STG 3 UNSP; Translations: [CHRN KIDNEY DISEASE STG 3 UNSP] Onset: 2 Unclassified (1 source) Sebaceous cyst of skin 10-02-2020 Past or Other Problems Problem Classification Problem Date Documented Da te Episodic/Chronic Mood disorders (1 source) Mood disorders Onset: 09-18-2023 09-18-2023 Nutritional deficiencies (1 source) Deficiency of other specified B group vitamins; Translations: [DEFICIENCY SPEC B GROUP VITAMINS] Onset: 09-01-2022 Episodic Other connective tissue disease (1 source) Pain in left foot; Translations: [PAIN IN LEFT FOOT] Onset: 09-01-2022 Episodic Other connective tissue disease (1 source) Other specified soft tissue disorders; Translations: [OTHER SPEC SOFT TISSUE DISORDERS] Onset: 09-01-2022 Episodic Other connective tissue disease (1 source) Other symptoms and signs involving the musculoskeletal system; Translations: [Other musculoskeletal symptoms referable to limbs] Onset: 11-18-2022 11-18-2022 Episodic Other gastrointestinal disorders (1 source) Heartburn; Translations: [HEARTBURN] Onset: 09-01-2022 Episodic Other inflammatory condition of skin (1 source) Erythematous condition, unspecified; Translations: [ERYTHEMATOUS CONDITION UNSPECIFIED] Onset: 09-01-2022 Episodic Other lower respiratory disease (1 source) Acute respiratory distress; Translations: [ACUTE RESPIRATORY DISTRESS] Onset: 09-01-2022 Episodic Other screening for suspected conditions (not mental disorders or infectious disease) (6 sources) Elevated C-reactive protein (CRP); Translations: [Imaging of abdomen abnormal] Onset: 09-01-2022 Episodic Other upper respiratory disease (4 sources) Epistaxis; Translations: [EPISTAXIS] Onset: 08-15-2022 Episodic Residual codes; unclassified (1 source) Body mass index (BMI) 23.0-23.9, adult; Translations: [BODY MASS INDEX BMI 23.0-23.9 ADULT] Onset: 09-01-2022 Episodic Skin and subcutaneous tissue infections (1 source) Local infection of the skin and subcutaneous tissue, unspecified; Translations: [LOCAL INFECT SKIN SUBQ TISSUE UNS] Onset: 09-01-2022 Episodic Unclassified (1 source) Onset: 09-27-2023 09-27-2023 Results Test Name Value Interpretation Reference Range Facility Documentationon 09-18-2023 Documentation [id number] Efraín Johnson 1950 M Date Provider Department Center 09/18/2023 ROBIN BANUELOS [facility] Family History Problem Relation Age of Onset Stroke Father Stroke Paternal Grandmother Stroke Paternal Grandfather Family Status - Relation Status Age at Father Paternal Grandmother Paternal Grandfather Normal [facility] Office Visiton 09-14-2023 Follow-up visit [id number] Efraín Johnson 1950 M Date Provider Department Center 09/14/2023 ROBIN BANUELOS [facility] Family History Problem Relation Age of Onset Stroke Father Stroke Paternal Grandmother Stroke Paternal Grandfather Family Status - Relation Status Age at Father Paternal Grandmother Paternal Grandfather Level of Service:33276 ME OFFICE/OUTPATIENT ESTABLISHED MOD MDM 30 MIN Normal [facility] HPon 09-10-2023 [facility] Electrophysiology Consult Note Reason for visit: [facility] follow-up, bradycardia, holter monitor , new to EP HPI: Efraín Johnson is a 73 y.o. year old with past medical history of Hypertension, bradycardia, CKD wth baseline appearing around Cr1.5, anemia. Patient was seen in the [facility] for her sinus bradycardia. He was having heart rate ranging in the 50s but was asymptomatic and was discharged with event monitor. He was also dealing with an SHREYL and was found to be dehydrated, hypokalemic, hyponatremic. He was seen by neurology for lower extremity weakness who recommended MRI of C-spine, no concern for stroke. He was seen in [place] [facility] 11/11/2022 for weakness and difficulty getting out of bed and complaints of chronic lower extremity pain, at that time his heart rate was in the 60s and there was no concern for bradycardia. Patient had an event monitor on and had trouble with the patches and wore for about 7 days. Event monitor was shown sinus bradycardia and second-degree AV block type I. some of his bradycardic events were nocturnal but not all were. PCP restarted metoprolol tartrate 25 mg twice daily ,patient's has had no signs or symptoms of bradycardia. Labs 02/10/2023: Hemoglobin 13.2, sodium 143, K2.8, chloride 110, BUN 13, creatinine 1.35, GFR 52 patient accompanied by and daughter. Patient did have some confused conversation but was alert to self and place. He denies any symptoms of chest pain, shortness of breath, lightheadedness, dizziness. He has had some mild fatigue progressed over the last year. PMH: Medical History No past medical history on file. PSH: Surgical History No past surgical history on file. SH: Social Determinants of Health Tobacco Use: Not on file Alcohol Use: Not on file Financial Resource Strain: Not on file Food Insecurity: Not on file Transportation Needs: Not on file Physical Activity: Not on file Stress: Not on file Social Connections: Not on file Intimate Partner Violence: Not on file Depression: Not on file Housing Stability: Not on file Allergies: Allergies Allergen Reactions Penicillins Weight: 66.2kg Visit Vitals Ht 1.778 m (5' 10 ) Wt 66.2 kg (146 lb) BMI 20.95 kg/m??? BSA 1.81 m??? Meds: Current Outpatient Medications on File Prior to Visit Medication Sig Dispense Refill aspirin 81 mg chewable tablet Chew 81 mg in the morning. carbidopa-levodopa (Sinemet CR) 25-100 mg ER tablet Take 1 tablet by mouth 3 times a day. carbidopa-levodopa (Sinemet) 25-100 mg tablet TAKE 1 TABLET BY MOUTH 3 TIMES DAILY AT 6 AM, 12 PM, AND 6 PM BEFORE MEALS Klor-Con M20 20 mEq ER tablet TAKE 1 TABLET BY MOUTH TWICE A DAY BEFORE MEALS metoprolol tartrate (Lopressor) 25 mg tablet TAKE 1 TABLET BY MOUTH TWICE A DAY WITH FOOD FOR 30 DAYS No current facility-administered medications on file prior to visit. ROS: Cardio Basic Cardiovascular Symptoms: no lightheadedness, no leg edema, no syncope, no orthopnea, no PND, no claudication, Constitutional Constitutional: no fever, no night sweats, no significant weight gain, no significant weight loss, no exercise intolerance Eyes Eyes: no dry eyes, no irritation, no vision change ENMT Ears: no difficulty hearing, no ear pain Nose: no frequent nosebleeds, Mouth/Throat: no sore throat, no bleeding gums, no snoring, no dry mouth, no mouth ulcers, no oral abnormalities, no teeth problems Respiratory Respiratory: no cough, no wheezing, no coughing up blood, no sleep apnea Musculoskeletal Musculoskeletal: no muscle aches, no muscle weakness, joint pain+, no back pain, no swelling in the extremities Integumentary Skin no rash, no ulcer, no varicosities, no discoloration, no pruritus Neurologic Neurologic: no loss of consciousness, no weakness, no numbness, no seizures, no dizziness, no headaches Psychiatric Psych: no depression, feeling safe in relationship, no alcohol abuse, Hematologic/Lymphatic Hematologic/Lymphatic no swollen glands, no bruising Physical Exam: Constitutional General Appearance: well-nourished, well-developed, appears stated age Level of Distress: comfortable Psychiatric Mental Status: alert, normal affect Orientation: oriented to time, place, and person Insight: good judgement Eyes Lids and Conjunctivae: non-injected, no xanthelasma ENMT Ears: no lesions on external ear Nose: no lesions on external nose Oropharynx: no cyanosis, no pallor Neck Neck: supple, trachea midline Carotid Arteries: bilateral normal upstroke, no bruits Jugular Veins: normal jugular venous pressure Thyroid: not enlarged Lungs Respiratory Effort: unlabored Chest Exam: normal curvature, no thoracic deformity Auscultation: clear, no wheezing, no rales, no rhonchi Cardiovascular Rate And Rhythm: regular Heart Sounds: normal S1, normal s2, no gallop Systolic Murmur: not heard Diastolic Murmur: not heard (more content not included)... Normal [facility] NURSNOTEon 09-10-2023 NURSNOTE RN educated pt on d/ c instructions. RN encouraged pt to voice any questions or concerns. Pt verbalizes no questions or concerns at this time. Pt was wheeled off of unit with all of belongings. [facility] Hospital Orders Onlyon 08-13-2023 Orders Only [id number] Efraín Johnson 1950 M Date Provider Department Center 08/13/2023 TERRI MAHER Family History Problem Relation Age of Onset Stroke Father Stroke Paternal Grandmother Stroke Paternal Grandfather Family Status - Relation Status Age at Father Paternal Grandmother Paternal Grandfather [facility] Office Visiton 07-21-2023 Follow-up visit [id number] Efraín Johnson 1950 Date Provider Department Center 07/21/2023 MISSAEL PRINCE Family History Problem Relation Age of Onset Stroke Father Stroke Paternal Grandmother Stroke Paternal Grandfather Family Status - Relation Status Age at Father Paternal Grandmother Paternal Grandfather Level of Service:78765 ME OFFICE/OUTPATIENT NEW HIGH MDM 60-74 MINUTES [facility] Orders Onlyon 07-21-2023 Orders Only [id number] Efraín Johnson 1950 Date Provider Department Center 07/21/2023 TERRI MAHER Family History Problem Relation Age of Onset Stroke Father Stroke Paternal Grandmother Stroke Paternal Grandfather Family Status - Relation Status Age at Father Paternal Grandmother Paternal Grandfather Normal [facility] Outside Colonoscopyon 2022 Outside Colonoscopy [id number] .00CD:127 Normal [facility] Insurance Correspondenceon 0 05-14-2023 Insurance Correspondence [id number] 1.00CD:127 Normal [facility] Consent for Procedure/Surger yon 05-13-2023 Consent for Procedure/Surgery [id number] .00CD:127 Normal [facility] Ambulatory Visit Summaryon 0 05-12-2023 Ambulatory Visit Summary EFRAÍN JOHNSON :1950 Visit Date:05/12/2023 Ambulatory Visit Instructions Your Care Team Attending Physician - GLENDA ARVIZU, Baljit Dennison Primary Care Physician - Alicja ARVIZU, Librado This Is Your Medications List Contact prescribing physician if questions or concerns aspirin (aspirin 81 mg Oral EC Tab) carbidopa-levodopa (carbidopa-levodopa 25 mg-100 mg ER Tab) donepezil (donepezil 10 mg Tab) potassium chloride (potassium chloride 20 mEq ER Tab) Procedures Performed Excisional biopsy (09/19/2020), Laparoscopic cholecystectomy (06/20/2020), Brachytherapy of prostate using fluoroscopic guidance (09/28/2019), Lumbar discectomy (07/30/2015), Colonoscopy (08/14/2014), Colonoscopy (02/04/2008), Bone graft, Graft of skin, Vasectomy. Discharge Vitals Heart Rate (Peripheral) 70 Respiratory Rate 16 Blood Pressure 120/74 Height 167.6 cm Height 66 in Weight 83.5 kg Weight 183.7 lb BMI 29.73 Medications What How Much When Instructions Unchanged aspirin (aspirin 81 mg Oral EC Tab) 1 Tablets By Mouth Every day Contact prescribing physician if questions or concerns Unchanged carbidopa-levodopa (carbidopa-levodopa 25 mg-100 mg ER Tab) Contact prescribing physician if questions or concerns Unchanged donepezil (donepezil 10 mg Tab) 1 Tablets By Mouth Once a day (at bedtime) Contact prescribing physician if questions or concerns Unchanged potassium chloride (potassium chloride 20 mEq ER Tab) 1 Tablets By Mouth 2 times a day Contact prescribing physician if questions or concerns Allergies penicillin (Hives) Problems Ongoing - Any problem that you are currently receiving treatment for. Acute biliary pancreatitis with uninfected necrosis Adenocarcinoma of prostate BMI 29.0-29.9,adult Bradycardia Cervical spondylosis Chronic cholecystitis with calculus Chronic foot ulcer Chronic obstructive pulmonary disease CKD (chronic kidney disease) Dementia Elevated PSA GERD (gastroesophageal reflux disease) Gout HTN (hypertension) Hyperlipidemia Hyperuricemia Hypokalemia Infected sebaceous cyst Lumbar disc disease with radiculopathy Metabolic encephalopathy Overweight Parkinson disease Right foot drop Sebaceous cyst Symptomatic cholelithiasis Tardive dyskinesia Historical - Any problem that you are no longer receiving treatment for. Epidermoid cyst of skin of back Normal [facility] ED Note-Physicianon 04-15-20 23 ED Note-Physician [id number]#1 .00CD:127 Normal [facility] RAD - CT Reporton 04-15-2023 RAD - CT Report [id number]#1 .00CD:127 Normal [facility] Physician Referralon 023 Physician Referral [id number]#1 .00CD:127 Normal [facility] Physician Referralon 023 Physician Referral [id number] .00CD:127 Normal [facility] Office Visiton 04-01-2023 Follow-up visit [id number] Efraín Johnson 1950 M Date Provider Department Center 04/01/2023 1596-ROBIN CAMARENA PILAR Disha [facility] Family History Problem Relation Age of Onset Stroke Father Stroke Paternal Grandmother Stroke Paternal Grandfather Family Status - Relation Status Age at Father Paternal Grandmother Paternal Grandfather Level of Service:70252 ME OFFICE/OUTPATIENT ESTABLISHED MOD MDM 30-39 MIN Normal [facility] BLOOD CULTURE ID PANELon A. baumannii Not detected Normal NOT DETECTED The [facility] Comment on above: Performed By: #### B CID2 ####[facility] [address] [place] [id number]. Yiedith Otero Bacteriodes fragilis Not detected Normal NOT DETECTED The [facility] Comment on above: Performed By: #### B CID2 ####[facility] Lbrkricjay[address] [place] [id number]. Yiedith Otero BCID CONTROLS PASSED Normal The [facility] Comment on above: Performed By: #### B CID2 ####[facility] [address] [place] [id number]. Yiedith Otero BCIDBTHD BLOOD CULTURE BOTTLE INFORMATION Normal [facility] Comment on above: Performed By: #### B CID2 ####[facility] [address]cl[address] [place] [address]Dr. Yiedith Otero BCIDHD1 ANTIMICROBIAL RESISTANCE GENES [facility] Comment on above: Performed By: #### B CID2 ####[facility] Illkmnlpqk[address] [place], [place] [address]Dr. Yiedith Otero BCIDHD2 SEE BELOW Normal The [facility] Comment on above: Result Comment: Note : Antimicrobial resitance can occur via multiple mechanisms. A Not Detected result for the [employer] antomicrobial resistance gene assays does not indicate antimicrobial susceptibility. Subculturing is required for species identification and susceptibility testing of isolates. Performed By: #### B CID2 ####[facility] Lvganobcqy[address] [place], [place] [address]Dr. Flaco Otero BCIDHD3 Positive Normal [facility] Comment on above: Performed By: #### B CID2 ####[facility] [address] [place] [address]Dr. Yiedith Otero BCIDHD4 Negative Normal [facility] Comment on above: Performed By: #### B CID2 ####[facility] [address]om[address] [place] [address]Dr. Flaco Otero BCIDHD5 YEAST Normal The [facility] Comment on above: Performed By: #### B CID2 ####[facility] Rpgibt[address]wk[address] [place], [place] [address]Dr. Purvilan Otero Bottle Set: Set 2 Normal [facility] Comment on above: Performed By: #### B CID2 ####[facility] Q[address] [place] [address]Dr. Flaco Otero Bottle: Pediatric Normal [facility] Comment on above: Performed By: #### B CID2 ####[facility] [address]fkv[address] [place] [phone]. Flaco Otero C. neoformans/gattii Not detected Normal NOT DETECTED The [facility] Comment on above: Performed By: #### B CID2 ####[facility] Fgibqnotlv[address] [place] [address]Dr. Yiedith Otero Angela albicans Not detected Normal NOT DETECTED The [facility] Comment on above: Performed By: #### B CID2 ####[facility] Icrnoivttw[address] [place], [place] [address]Dr. Flaco Otero Angela auris Not detected Normal NOT DETECTED The [facility] Comment on above: Performed By: #### B CID2 ####[facility] Kpcuiktzlw[address] [place], [place] [address]Dr. Yiedith Otero Angela glabrata Not detected Normal NOT DETECTED The [facility] Comment on above: Performed By: #### B CID2 ####[facility] Emfwskykif18[address] [place], [place] [address]Dr. Flaco Otero Angela Krusei Not detected Normal NOT DETECTED The [facility] Comment on above: Performed By: #### B CID2 ####[facility] Whdkhmtfyn[address] [place], [place] [address]Dr. Flaco Otero Angela Parapsilosis Not detected Normal NOT DETECTED The [facility] Comment on above: Performed By: #### B CID2 ####[facility] Diwrflbyqx[address] [place] [address]Dr. Flaco Otero Angela Tropicalis Not detected Normal NOT DETECTED [facility] Comment on above: Performed By: #### B CID2 ####[facility] Qrjuzohvkq[address] [place] [address]Dr. Flaco Otero CTX-M Resistant Gene Not Applicable Normal NOT DETECTE D [facility] Comment on above: Performed By: #### B CID2 ####[facility] Exiropyngv[address] [place], [place] [address]Dr. Flaco Otero E. Cloacae complex Not detected Normal NOT DETECTED [facility] Comment on above: Performed By: #### B CID2 ####[facility] Vyldpbgvpd[address] [place], [place] [address]Dr. Flaco Otero E. faecalis Not detected Normal NOT DETECTED The [facility] Comment on above: Performed By: #### B CID2 ####[facility] Wcyqqkqsow[address] [place], [place] [address]Dr. Flaco Otero E. faecium Not detected Normal NOT DETECTED The [facility] Comment on above: Performed By: #### B CID2 ####[facility] Mvaxecikdf[address] [place], [place] [address]Dr. Flaco Otero Enterobacteriaceae Not detected Normal NOT DETECTED [facility] Comment on above: Performed By: #### B CID2 ####[facility] Byfwadnjvl[address] [place], [place] [address]Dr. Flaco Otero Escherichia coli Not detected Normal NOT DETECTED The [facility] Comment on above: Performed By: #### B CID2 ####[facility] Cjknwbguuo[address] [place], [place] [address]Dr. Flaco Otero H. influenzae Not detected Normal NOT DETECTED The [facility] Comment on above: Performed By: #### B CID2 ####[facility] Qfonyvnegm6[address] [place], [place] [address]Dr. Flaco Otero IMP Resistant Gene Not Applicable Normal NOT DETECTED The [facility] Comment on above: Performed By: #### B CID2 ####[facility] Lytckeywkb[address]66[address] [place], [place] [address]Dr. Flaco Otero K. oxytoca Not detected Normal NOT DETECTED The [facility] Comment on above: Performed By: #### B CID2 ####[facility] Gdimnbcclb[address] [place], [place] [address]Dr. Flaco Otero K. pneumoniae Not detected Normal NOT DETECTED The [facility] Comment on above: Performed By: #### B CID2 ####[facility] Itqqrcxwjv[address]24[address] [place], [place] [address]Dr. Flaco Otero Klebsiella aerogenes Not detected Normal NOT DETECTED The [facility] Comment on above: Performed By: #### B CID2 ####[facility] Exomhwofnk[address] [place], [place] [address]Dr. Flaco Otero KPC Resistant Gene Not detected Normal NOT DETECTED [facility] Comment on above: Performed By: #### B CID2 ####[facility] Vyjbhpzdhk[address] [place], [place] [address]Dr. Flaco Otero List. monocytogenes Not detected Normal NOT DETECTED [facility] Comment on above: Performed By: #### B CID2 ####[facility] Zdewabkkjt[address] [place], [place] [address]Dr. Flaco Otero Mcr-1 Resistant Gene Not Applicable Normal NOT DETECTE D [facility] Comment on above: Performed By: #### B CID2 ####[facility] Otksbhxtiv6333[address] [place], [place] [address]Dr. Flaco Otero mecA/C Not Applicable Normal NOT DETECTED The [facility] Comment on above: Performed By: #### B CID2 ####[facility] Xpsmgfrblm[address] [place], [place] [address]Dr. Flaco Otero mecA/C MREJ Not Applicable Normal NOT DETECTED The [facility] Comment on above: Performed By: #### B CID2 ####[facility] Kuyhvrtvtw[address] [place], [place] [address]Dr. Flaco Otero N. meningitidis Not detected Normal NOT DETECTED The [facility] Comment on above: Performed By: #### B CID2 ####[facility] Owirtzyasc11[address] [place], [place] [address]Dr. Flaco Otero NDM Resistant Gene Not Applicable Normal NOT DETECTED The [facility] Comment on above: Performed By: #### B CID2 ####[facility] Dhzfqdsquu[address] [place], [place] [address]Dr. Flaco Otero Oxa-48-like Not Applicable Normal NOT DETECTED The [facility] Comment on above: Performed By: #### B CID2 ####[facility] Uqdvnigjjk074[address] [place], [place] [address]Dr. Flaco Otero Proteus Not detected Normal NOT DETECTED The [facility] Comment on above: Performed By: #### B CID2 ####[facility] Irnxctweko[address] [place], [place] [address]Dr. Flaco Otero Pseud. aeruginosa Not detected Normal NOT DETECTED The [facility] Comment on above: Performed By: #### B CID2 ####[facility] Tqfdrgvtgo[address] [place], [place] [address]Dr. Flaco Otero S. maltophilia Not detected Normal NOT DETECTED The [facility] Comment on above: Performed By: #### B CID2 ####[facility] Ygxbatfbib396[address] [place], [place] [address]Dr. Flaco Otero Salmonella Not detected Normal NOT DETECTED The [facility] Comment on above: Performed By: #### B CID2 ####[facility] Wzdyrtzgfr40[address] [place], [place] [address]Dr. Flaco Otero Seratia marcescens Not detected Normal NOT DETECTED [facility] Comment on above: Performed By: #### B CID2 ####[facility] Wokwbibjzx54[address] [place], [place] [address]Dr. Flaco Otero Site: left hand Normal The [facility] Comment on above: Performed By: #### B CID2 ####[facility] Vdrpqlfoqa[address]26[address] [place], [place] [address]Dr. Flaco Otero Staph. aureus Not detected Normal NOT DETECTED The [facility] Comment on above: Performed By: #### B CID2 ####[facility] Uxlycpjvzg[address]384[address] [place], [place] [address]Dr. Flaco Otero Staph. epidermidis Not detected Normal NOT DETECTED [facility] Comment on above: Performed By: #### B CID2 ####[facility] Noxtbtvibi[address] [place], [place] [address]Dr. Flaco Otero Staph. lugdunensis Not detected Normal NOT DETECTED [facility] Comment on above: Performed By: #### B CID2 ####[facility] Wputhofqrs4734[address] [place], [place] [address]Dr. Flaco Otero Staphylococcus Not detected Normal NOT DETECTED The [facility] Comment on above: Performed By: #### B CID2 ####[facility] Ibrmwqpnxt[address] [place], [place] [address]Dr. Flaco Otero Strep. agalactiae Not detected Normal NOT DETECTED The [facility] Comment on above: Performed By: #### B CID2 ####[facility] Ydmjrpipus[address] [place], [place] [address]Dr. Flaco Otero Strep. pneumoniae Not detected Normal NOT DETECTED [facility] Comment on above: Performed By: #### B CID2 ####[facility] Ylmnfnydqg[address] [place], [place] [address]Dr. Flaco Otero Strep. pyogenes Not detected Normal NOT DETECTED The [facility] Comment on above: Performed By: #### B CID2 ####[facility] Wkaicmzvdb[address] [place], [place] [address]Dr. Flaco Otero Streptococcus Detected Critically abnormal NOT DETECTED The [facility] Comment on above: Performed By: #### B CID2 ####[facility] Pbltxqyuov[address]64[address] [place], [place] [address]Dr. Flaco Otero Hao/B Resist. Gene Not detected Normal NOT DETECTED [facility] Comment on above: Performed By: #### B CID2 ####[facility] Hwzpkwbbwk[address] [place], [place] [address]Dr. Flaco Otero VIM Resistant Gene Not Applicable Normal NOT DETECTED [facility] Comment on above: Performed By: #### B CID2 ####[facility] Kowstizwjw[address] [place], [place] [address]Dr. Flaco Otero CBC AUTO DIFFon 02-10-2023 BASO # 0.0 103/ul Normal 0.0-0.1 [facility] Comment on above: Performed By: #### C BC ####[facility] Nixlydpwyb[address] [place], [place] [address]Dr. Flaco Otero Basophils/100 WBC (Bld) 0.5 % Normal 0.2-2.0 [facility] Comment on above: Performed By: #### C BC ####[facility] Upxlvnpewm[address] [place], [place] [address]Dr. Flaco Otero EO # 0.1 103/ul Normal 0.0-0.7 [facility] Comment on above: Performed By: #### C BC ####[facility] [address] [place] [address]Dr. Flaco Branden Eosinophils/100 WBC (Bld) 1.1 % Normal 0.9-7.0 [facility] Comment on above: Performed By: #### C BC ####[facility] Vdxfidyhxd[address] [place], [place] [address]Dr. Purviedith Branden Erythrocyte distribution width (RBC) [Ratio] 16.0 % Critically high 11.0-15.0 [facility] Comment on above: Performed By: #### C BC ####[facility] Aeuyfhknql[address] [place], [place] [address]Dr. Flaco Otero Hematocrit (Bld) [Volume fraction] 40.1 % Critically low 42.0-54.0 [facility] Comment on above: Performed By: #### C BC ####[facility] Pjoueyfewy[address] [place], [place] [address]Dr. Flaco Otero Hemoglobin (Bld) [Mass/Vol] 13.2 g/dL Critically low 14.0-18.0 [facility] Comment on above: Performed By: #### C BC ####[facility] Paixadvrhd[address] [place], [place] [address]Dr. Flaco Otero IG # 0.01 10e3/ul Normal 0.00-0.03 [facility] Comment on above: Performed By: #### C BC ####[facility] Nbzeffivog[address] [place], [place] [address]Dr. Flaco Otero IG % 0.2 % Normal 0.0-0.5 [facility] Comment on above: Performed By: #### C BC ####[facility] Ynbqljhuft[address] [place], [place] [address]Dr. Flaco Otero LYMPH # 1.8 103/ul Normal 1.2-3.8 [facility] Comment on above: Performed By: #### C BC ####[facility] Ogcpljmdqs[address] [place], [place] [address]Dr. Flaco Otero Lymphocytes/100 WBC (Bld) 28.1 % Normal 20.5-60.0 [facility] Comment on above: Performed By: #### C BC ####[facility] H[address]jvj[address] [place] [address]DrJeramie Otero MANUAL DIFF REQ NO Normal [facility] Comment on above: Performed By: #### C BC ####[facility] Twhks[address]aiil[address] [place] [address]Dr. Flaco Otero MCH (RBC) [Entitic mass] 28.0 pg Normal 25.9-34.0 [facility] Comment on above: Performed By: #### C BC ####[facility] Ahvkhlxhlh[address] [place], [place] [address]DrJeramie Otero MCHC (RBC) [Mass/Vol] 32.9 g/dL Normal 29.9-35.2 [facility] Comment on above: Performed By: #### C BC ####[facility] Oimczjqeul[address] [place], [place] [address]DrJeramie Otero MCV (RBC) [Entitic vol] 85.0 fL Normal 80.0-94.0 [facility] Comment on above: Performed By: #### C BC ####[facility] Tcsthpmkbs[address] [place], [place] [address]DrJeramie Otero MONO # 0.5 103/ul Normal 0.3-0.8 [facility] Comment on above: Performed By: #### C BC ####[facility] Ex[address]iurux[address] [place], [place] [address]DrJeramie Otero Monocytes/100 WBC (Bld) 7.2 % Normal 1.7-12.0 [facility] Comment on above: Performed By: #### C BC ####[facility] Bxfsytppbv[address] [place], [place] [address]DrJeramie Otero NEUT # 4.1 103/ul Normal 1.4-6.5 [facility] Comment on above: Performed By: #### C BC ####[facility] Rpbxyrmolx[address] [place], [place] [address]DrJeramie Otero Neutrophils/100 WBC (Bld) 62.9 % Normal 43.0-75.0 [facility] Comment on above: Performed By: #### C BC ####[facility] [address] [place] [address]DrJeramie Otero Platelet mean volume (Bld) [Entitic vol] 10.7 fL Normal 9.5-13.5 [facility] Comment on above: Performed By: #### C BC ####[facility] Hzmlqpvyei7[address] [place] [address]DrJeramie Otero PLT 180 103/ul Normal 150-450 [facility] Comment on above: Performed By: #### C BC ####[facility] Mmghuiauiw[address] [place], [place] [address]Dr. Flaco Otero RBC 4.72 106/ul Normal 4.70-6.10 [facility] Comment on above: Performed By: #### C BC ####[facility] Yafgdcsbfn[address] [place], [place] [address]DrJeramie Otero WBC 6.5 103/ul Normal 4.0-11.0 [facility] Comment on above: Performed By: #### C BC ####[facility] Tyizbuvjjq[address] [place], [place] [address]DrJeramie Otero PROF 14(COMP METB)on 023 Albumin [Mass/Vol] 2.8 g/dL Critically low 3.4-5.0 [facility] Comment on above: Performed By: #### C MP ####[facility] Tfblfdwjkw[address] [place], [place] [address]DrJeramie Otero Albumin/Globulin [Mass ratio] 1.2 {ratio} Normal [facility] Comment on above: Performed By: #### C MP ####[facility] Snqarolyde[address] [place], [place] [address]DrJeramie Otero ALP [Catalytic activity/Vol] 71 U/L Normal 46-116 [facility] Comment on above: Performed By: #### C MP ####[facility] Cvgdqbnnhs[address] [place], [place] [address]DrJeramie Otero ALT [Catalytic activity/Vol] 9 U/L Critically low 16-63 [facility] Comment on above: Performed By: #### C MP ####[facility] [address] [place] [address]Dr. Flaco Otero Anion gap [Moles/Vol] 11.5 mmol/L Normal Th [facility] Comment on above: Performed By: #### C MP ####[facility] [address]yy[address]tydon[address] [place] [address]Dr. Flaco Branden AST [Catalytic activity/Vol] 13 U/L Critically low 15-37 [facility] Comment on above: Performed By: #### C MP ####[facility] [address] [place] [address]Dr. Purviedith Branden Bilirubin [Mass/Vol] 1.4 mg/dL Critically high 0.2-1.0 [facility] Comment on above: Performed By: #### C MP ####[facility] Dnsornlrgk[address] [place], [place] [address]Dr. Flaco Otero Calcium [Mass/Vol] 7.9 mg/dL Critically low 8.5-10.1 [facility] Comment on above: Performed By: #### C MP ####[facility] Ibnqdldrdc[address] [place], [place] [address]Dr. Flaco Otero Chloride [Moles/Vol] 110 mmol/L Critically high 98-107 [facility] Comment on above: Performed By: #### C MP ####[facility] Nycxfirfgc[address] [place], [place] [address]Dr. Purviedith Branden CO2 [Moles/Vol] 26.4 mmol/L Normal 21.0-32.[address] [facility] Comment on above: Performed By: #### C MP ####[facility] Dzdbgzjenz[address] [place], [place] [address]Dr. Flaco Otero Creatinine [Mass/Vol] 1.35 mg/dL Critically high 0.70-1.30 [facility] Comment on above: Performed By: #### C MP ####[facility] Sqpyjupoid7[address] [place], [place] [address]Dr. Flaco Otero EGFR-AF EGYPTIAN >60 Normal >=60 [facility] Comment on above: Performed By: #### C MP ####[facility] [address] [place] [phone]. Flaco Otero EGFR-NON AF EGYPTIAN 52 mL/min/1.73m2 Critically low >=60 [facility] Comment on above: Performed By: #### C MP ####[facility] Oesuuvkruy[address] [place] [phone]. Flaco Otero Globulin (S) [Mass/Vol] 2.4 g/dL Normal [facility] Comment on above: Performed By: #### C MP ####[facility] Nmgmitfxou[address] [place] [address]Dr. Flaco Otero Glucose [Mass/Vol] 90 mg/dL Normal 74-106 [facility] Comment on above: Performed By: #### C MP ####[facility] Jgvxvxhsla[address] [place] [address]Dr. Flaco Branden Potassium [Moles/Vol] 2.8 mmol/L Critically low 3.5-5.1 [facility] Comment on above: Performed By: #### C MP ####[facility] Lyxswqbtwd[address] [place] [address]Dr. Flaco Otero Protein [Mass/Vol] 5.2 g/dL Critically low 6.4-8.2 Th [facility] Comment on above: Performed By: #### C MP ####[facility] Theiesxdwl[address] [place] [address]Dr. Flaco Otero Sodium [Moles/Vol] 143 mmol/L Normal 136-145 [facility] Comment on above: Performed By: #### C MP ####[facility] Njorfgxrit[address] [place] [phone]. Flaco Otero Urea nitrogen [Mass/Vol] 13.0 mg/dL Normal 7.0-18.0 [facility] Comment on above: Performed By: #### C MP ####[facility] Wlmfqlublm[address] [place] [phone]. Flaco Branden Urea nitrogen/Creatinine [Mass ratio] 9.6 mg/mg Normal The [facility] Comment on above: Performed By: #### C MP ####[facility] Njqbjobzqy96[address] [place], [place] [address]Dr. Flaco Otero AMMONIAon 02-09-2023 Ammonia (P) [Mass/Vol] ug/dL Critically low 11-32 [facility] Comment on above: Performed By: #### A MM ####[facility] Epoqfizlzz[address] [place], [place] [address]Dr. Flaco Otero CBC AUTO DIFFon 02-09-2023 BASO # 0.0 103/ul Normal 0.0-0.1 [facility] Comment on above: Performed By: #### C BC ####[facility] Cffaqtnzhm[address] [place], [place] [address]DrJeramie Otero Basophils/100 WBC (Bld) 0.6 % Normal 0.2-2.0 The [facility] Comment on above: Performed By: #### C BC ####[facility] Sufjaivmdj8[address] [place], [place] [address]Dr. Flaco Otero EO # 0.0 103/ul Normal 0.0-0.7 The [facility] Comment on above: Performed By: #### C BC ####[facility] Omszdkjsoq98[address] [place], [place] [address]DrJeramie Otero Eosinophils/100 WBC (Bld) 0.8 % Critically low 0.9-7.0 [facility] Comment on above: Performed By: #### C BC ####[facility] Ehmfxcojpj05[address] [place], [place] [address]Dr. Flaco Otero Erythrocyte distribution width (RBC) [Ratio] 15.9 % Critically high 11.0-15.0 The [facility] Comment on above: Performed By: #### C BC ####[facility] Pxgufifhuk[address] [place], [place] [address]DrJeramie Otero Hematocrit (Bld) [Volume fraction] 40.6 % Critically low 42.0-54.0 [facility] Comment on above: Performed By: #### C BC ####[facility] Icxfymigry[address] [place], [place] [address]Dr. Flaco Otero Hemoglobin (Bld) [Mass/Vol] 13.1 g/dL Critically low 14.0-18.0 The [facility] Comment on above: Performed By: #### C BC ####[facility] Ripkbdukmo[address] [place] [address]Dr. Flaco Otero IG # 0.01 10e3/ul Normal 0.00-0.03 The [facility] Comment on above: Performed By: #### C BC ####[facility] Tutolcychr1837[address] [place], [place] [address]Dr. Flaco Otero IG % 0.2 % Normal 0.0-0.5 The [facility] Comment on above: Performed By: #### C BC ####[facility] Lebqdayhpi6229[address] [place], [place] [address]Dr. Flaco Otero LYMPH # 1.3 103/ul Normal 1.2-3.8 The [facility] Comment on above: Performed By: #### C BC ####[facility] Wplqmvjsaa8[address] [place], [place] [address]Dr. Flaco Otero Lymphocytes/100 WBC (Bld) 26.3 % Normal 20.5-60.0 The [facility] Comment on above: Performed By: #### C BC ####[facility] Bfkelsybdu09[address] [place], [place] [address]DrJeramie Otero MANUAL DIFF REQ NO Normal The [facility] Comment on above: Performed By: #### C BC ####[facility] Mrvlnmyzcr9339[address] [place], [place] [address]Dr. Flaco Otero MCH (RBC) [Entitic mass] 27.5 pg Normal 25.9-34.0 The [facility] Comment on above: Performed By: #### C BC ####[facility] Mfuuvutceu0032[address] [place], [place] [address]Dr. Flaco Otero MCHC (RBC) [Mass/Vol] 32.3 g/dL Normal 29.9-35.2 The [facility] Comment on above: Performed By: #### C BC ####[facility] Svppauilgd[address]14[address] [place], [place] [address]Dr. Flaco Otero MCV (RBC) [Entitic vol] 85.3 fL Normal 80.0-94.0 The [facility] Comment on above: Performed By: #### C BC ####[facility] Nbgfxruogh4143[address] [place], [place] [address]DrJeramie Otero MONO # 0.4 103/ul Normal 0.3-0.8 The [facility] Comment on above: Performed By: #### C BC ####[facility] Vfapzqrazr600[address] [place], [place] [address]Dr. Flaco Otero Monocytes/100 WBC (Bld) 7.6 % Normal 1.7-12.0 The [facility] Comment on above: Performed By: #### C BC ####[facility] Yarukenvxd16[address] [place], [place] [address]DrJeramie Flaco Otero NEUT # 3.2 103/ul Normal 1.4-6.5 The [facility] Comment on above: Performed By: #### C BC ####[facility] Ypjbvoqwgc076[address] [place], [place] [address]Dr. Flaco Otero Neutrophils/100 WBC (Bld) 64.5 % Normal 43.0-75.0 The [facility] Comment on above: Performed By: #### C BC ####[facility] Taocvngoff3938[address] [place], [place] [address]Dr. Flaco Otero Platelet mean volume (Bld) [Entitic vol] 10.6 fL Normal 9.5-13.5 The [facility] Comment on above: Performed By: #### C BC ####[facility] Ftyjwbrpan1757[address] [place], [place] [address]Dr. Flaco Branden PLT 195 103/ul Normal 150-450 [facility] Comment on above: Performed By: #### C BC ####[facility] Xnmgzunmhv2666[address] [place], [place] [address]Dr. Flaco Branden RBC 4.76 106/ul Normal 4.70-6.10 The [facility] Comment on above: Performed By: #### C BC ####[facility] Zmvzlakxpi9[address] [place], [place] [address]DrJeramie Lojaedith Branden WBC 5.0 103/ul Normal 4.0-11.0 [facility] Comment on above: Performed By: #### C BC ####[facility] Bskluolzew2364[address] [place], [place] [address]Dr. Flaco Otero PROF 14(COMP METB)on 023 Albumin [Mass/Vol] 3.0 g/dL Critically low 3.4-5.0 [facility] Comment on above: Performed By: #### C MP ####[facility] Qcpmtdyqvq13[address] [place], [place] [address]Dr. Flaco Otero Albumin/Globulin [Mass ratio] 1.2 {ratio} Normal [facility] Comment on above: Performed By: #### C MP ####[facility] Lwpbnngbcr69[address] [place], [place] [address]Dr. Flaco Otero ALP [Catalytic activity/Vol] 67 U/L Normal 46-116 [facility] Comment on above: Performed By: #### C MP ####[facility] Lmtncimyow2839[address] [place], [place] [address]Dr. Flaco Otero ALT [Catalytic activity/Vol] 7 U/L Critically low 16-63 [facility] Comment on above: Performed By: #### C MP ####[facility] Mftwgluful2706[address] [place], [place] [address]Dr. Flaco Otero Anion gap [Moles/Vol] 12.8 mmol/L Normal Th [facility] Comment on above: Performed By: #### C MP ####[facility] Supygzhmyc5156[address] [place], [place] [address]Dr. Flaco Otero AST [Catalytic activity/Vol] 16 U/L Normal 15-37 [facility] Comment on above: Performed By: #### C MP ####[facility] Hnlrinbhws2739[address] [place], [place] [address]Dr. Flaco Otero Bilirubin [Mass/Vol] 2.1 mg/dL Critically high 0.2-1.0 [facility] Comment on above: Performed By: #### C MP ####[facility] Zrbdejskas25[address] [place], [place] [address]Dr. Flaco Otero Calcium [Mass/Vol] 8.1 mg/dL Critically low 8.5-10.1 Th e [facility] Comment on above: Performed By: #### C MP ####[facility] Gyksbioada6166[address] [place], [place] [address]Dr. Flaco Otero Chloride [Moles/Vol] 110 mmol/L Critically high 98-107 [facility] Comment on above: Performed By: #### C MP ####[facility] Lbtaeipxko276[address] [place], [place] [address]Dr. Flaco Otero CO2 [Moles/Vol] 26.0 mmol/L Normal 21.0-32.[address] [facility] Comment on above: Performed By: #### C MP ####[facility] Muzpqpoelk65[address] [place], [place] [address]Dr. Flaco Otero Creatinine [Mass/Vol] 1.43 mg/dL Critically high 0.70-1.30 [facility] Comment on above: Performed By: #### C MP ####[facility] Gblicwvdog042[address] [place], [place] [address]Dr. Flaco Otero EGFR-AF EGYPTIAN 59 mL/min/1.73m2 Critically low >=60 [facility] Comment on above: Performed By: #### C MP ####[facility] Hrvriryzdj067[address] [place], [place] [address]Dr. Flaco Otero EGFR-NON AF EGYPTIAN 49 mL/min/1.73m2 Critically low >=60 [facility] Comment on above: Performed By: #### C MP ####[facility] Kyiisajpop47[address] [place], [place] [address]Dr. Flaco Otero Globulin (S) [Mass/Vol] 2.4 g/dL Normal [facility] Comment on above: Performed By: #### C MP ####[facility] Whjtjorpka0687[address] [place], [place] [address]Dr. Flaco Otero Glucose [Mass/Vol] 77 mg/dL Normal 74-106 [facility] Comment on above: Performed By: #### C MP ####[facility] Ukwlfupcjo9833[address] [place], [place] [address]Dr. Flaco Otero Potassium [Moles/Vol] 2.8 mmol/L Critically low 3.5-5.1 [facility] Comment on above: Performed By: #### C MP ####[facility] Qxjcsmijoq2436[address] [place], [place] [address]Dr. Flaco Otero Protein [Mass/Vol] 5.4 g/dL Critically low 6.4-8.2 Th [facility] Comment on above: Performed By: #### C MP ####[facility] Ujlxhuctpq1658[address] [place], [place] [address]Dr. Flaco Otero Sodium [Moles/Vol] 145 mmol/L Normal 136-145 [facility] Comment on above: Performed By: #### C MP ####[facility] Ktvicyycan1128[address] [place], [place] [address]Dr. Flaco Otero Urea nitrogen [Mass/Vol] 8.0 mg/dL Normal 7.0-18.0 [facility] Comment on above: Performed By: #### C MP ####[facility] Cnuiwaoeuc[address]15[address] [place], [place] [address]Dr. Flaco Otero Urea nitrogen/Creatinine [Mass ratio] 5.6 mg/mg Normal [facility] Comment on above: Performed By: #### C MP ####[facility] Pjhktjcvlw0186[address] [place], [place] [address]Dr. Flaco Otero T4on 02-09-2023 T4 [Mass/Vol] 7.10 ug/dL Normal 4.50-12.10 [facility] Comment on above: Performed By: #### T SH, T4 ####[facility] Xuznixjukw[address]86[address] [place], [place] [address]Dr. Flaco Otero TSHon 02-09-2023 TSH 0.633 uIU/mL Normal 0.358-3.740 The [facility] Comment on above: Performed By: #### T SH, T4 ####[facility] Tdcpmwljln4713[address] [place], [place] [address]Dr. Flaco Branden US SINGLE QUAD RT UPPERon US SINGLE QUAD RT UPPER Normal The [facility] AMYLASEon 02-08-2023 Amylase [Catalytic activity/Vol] 41 U/L Normal 25-115 [facility] Comment on above: Performed By: #### A MY, LIPA, CMP ####[facility] V[address]yyjacma[address] [place] [address]Dr. Flaco Otero CBC AUTO DIFFon 02-08-2023 BASO # 0.0 103/ul Normal 0.0-0.1 [facility] Comment on above: Performed By: #### C BC ####[facility] Shzqrvogra1617[address] [place], [place] [address]Dr. Flaco Branden Basophils/100 WBC (Bld) 0.7 % Normal 0.2-2.0 The [facility] Comment on above: Performed By: #### C BC ####[facility] Zdtanzwhtd88[address] [place], [place] [address]Dr. Flaco Otero EO # 0.0 103/ul Normal 0.0-0.7 [facility] Comment on above: Performed By: #### C BC ####[facility] Jyknllmhby7627[address] [place], [place] [address]Dr. Flaco Branden Eosinophils/100 WBC (Bld) 0.5 % Critically low 0.9-7.0 [facility] Comment on above: Performed By: #### C BC ####[facility] Qrcdevlsmv5123[address] [place], [place] [address]Dr. Flaco Otero Erythrocyte distribution width (RBC) [Ratio] 15.9 % Critically high 11.0-15.0 [facility] Comment on above: Performed By: #### C BC ####[facility] Lhqqgxilkp6[address] [place], [place] [address]Dr. Flaco Otero Hematocrit (Bld) [Volume fraction] 46.1 % Normal 42.0-54.0 [facility] Comment on above: Performed By: #### C BC ####[facility] Txirzwfwjz80[address] [place], [place] [address]Dr. Flaco Otero Hemoglobin (Bld) [Mass/Vol] 15.2 g/dL Normal 14.0-18.0 [facility] Comment on above: Performed By: #### C BC ####[facility] Snnpcylobk[address] [place] [address]Dr. Flaco Branden IG # 0.02 10e3/ul Normal 0.00-0.03 [facility] Comment on above: Performed By: #### C BC ####[facility] Pebkbmlimf6044[address] [place], [place] [address]Dr. Purviedith Otero IG % 0.3 % Normal 0.0-0.5 [facility] Comment on above: Performed By: #### C BC ####[facility] Puwcismdil80[address] [place], [place] [address]DrJeramie Otero LYMPH # 1.5 103/ul Normal 1.2-3.8 [facility] Comment on above: Performed By: #### C BC ####[facility] Xjfebqroln18[address] [place], [place] [address]DrJeramie Otero Lymphocytes/100 WBC (Bld) 26.1 % Normal 20.5-60.0 [facility] Comment on above: Performed By: #### C BC ####[facility] Zrfoywyrbk18[address] [place], [place] [address]DrJeramie Purviedith Otero MANUAL DIFF REQ NO Normal [facility] Comment on above: Performed By: #### C BC ####[facility] Qiaqyrkins[address] [place], [place] [address]Dr. Flaco Branden MCH (RBC) [Entitic mass] 27.9 pg Normal 25.9-34.0 [facility] Comment on above: Performed By: #### C BC ####[facility] Xqratkoxrp[address] [place], [place] [address]DreJramie Flaco Branden MCHC (RBC) [Mass/Vol] 33.0 g/dL Normal 29.9-35.2 [facility] Comment on above: Performed By: #### C BC ####[facility] Snsogkgujb[address] [place], [place] [address]DrJeramie Purviedith Otero MCV (RBC) [Entitic vol] 84.6 fL Normal 80.0-94.0 [facility] Comment on above: Performed By: #### C BC ####[facility] Mcchxlvmha248[address] [place], [place] [address]DrJeramie Otero MONO # 0.6 103/ul Normal 0.3-0.8 [facility] Comment on above: Performed By: #### C BC ####[facility] Klzxqaqcca[address] [place] [id number]. Flaco Otero Monocytes/100 WBC (Bld) 9.6 % Normal 1.7-12.0 [facility] Comment on above: Performed By: #### C BC ####[facility] [address]jok[address]hdjiz[address] [place] [address]Dr. Flaco Otero NEUT # 3.7 103/ul Normal 1.4-6.5 [facility] Comment on above: Performed By: #### C BC ####[facility] Sqbnpiytqd[address] [place], [place] [address]Dr. Flaco Otero Neutrophils/100 WBC (Bld) 62.8 % Normal 43.0-75.0 [facility] Comment on above: Performed By: #### C BC ####[facility] Ugckfanjwi8947[address] [place], [place] [address]Dr. Flaco Otero Platelet mean volume (Bld) [Entitic vol] 10.6 fL Normal 9.5-13.5 [facility] Comment on above: Performed By: #### C BC ####[facility] Ajwzrybeyl[address] [place] [address]Dr. Flaco Otero PLT 255 103/ul Normal 150-450 [facility] Comment on above: Performed By: #### C BC ####[facility] Akzdcsuwjs[address] [place] [phone]. Flaco Otero RBC 5.45 106/ul Normal 4.70-6.10 [facility] Comment on above: Performed By: #### C BC ####[facility] Lzgcikxdiz50[address] [place] [phone]. Flaco Otero WBC 5.8 103/ul Normal 4.0-11.0 [facility] Comment on above: Performed By: #### C BC ####[facility] Ffclyoqcyc[address] [place], [place] [address]Dr. Flaco Otero CULTURE BLOODon 02-08-2023 Microscopic examination of blood, culture Culture Observations: NO GROWTH AT 36-48 HOURS. FINAL TO FOLLOW. Normal The [facility] Comment on above: Performed By: #### B LDCX1 ####[facility] Fvfbmndlpw4139[address] [place], [place] [address]Dr. Purviedith Otero ER URINE PROFILEon 3 Bilirubin Ql (U) Negative Normal NEGATIVE The [facility] Comment on above: Performed By: #### E RUR ####[facility] Yvaebfyyde74[address] [place], [place] [address]Dr. Purviedith Otero Clarity (U) CLEAR Normal CLEAR [facility] Comment on above: Performed By: #### E RUR ####[facility] Floxbiqwsm[address] [place], [place] [address]Dr. Purviedith Otero Color (U) YELLOW Normal YELLOW [facility] Comment on above: Performed By: #### E RUR ####[facility] Zwstlkzpzi[address] [place], [place] [address]Dr. Flaco Otero ERUAHD A micrscopic examination will be performed if indicated. Normal [facility] Comment on above: Performed By: #### E RUR ####[facility] Wizofcbqoz00[address] [place], [place] [address]Dr. Purviedith Branden Glucose Ql (U) Negative Normal NEGATIVE The [facility] Comment on above: Performed By: #### E RUR ####[facility] Edjnckfsuz3329[address] [place], [place] [address]Dr. Purviedith Otero Hemoglobin Ql (U) Negative Normal NEGATIVE The [facility] Comment on above: Performed By: #### E RUR ####[facility] Wjjkcqqbrd4636[address] [place], [place] [address]Dr. Flaco Otero Ketones Ql (U) 15 mg/dl Abnormal NEGATIVE The [facility] Comment on above: Performed By: #### E RUR ####[facility] Qmsfutvhne[address] [place], [place] [address]Dr. Flaco Otero LEUKOCYTES Negative Normal NEGATIVE [facility] Comment on above: Performed By: #### E RUR ####[facility] Orzwokammd3190[address] [place], [place] [address]Dr. Flaco Otero Nitrite Ql (U) Negative Normal NEGATIVE The [facility] Comment on above: Performed By: #### E RUR ####[facility] Kwikqlsnih[address] [place] [address]Dr. Flaco Otero pH (U) 6.5 [pH] Normal 5-9 [facility] Comment on above: Performed By: #### E RUR ####[facility] Xluuvdpcmd[address] [place] [address]Dr. Flaco Otero SPEC GRAVITY 1.010 Normal 1.005-<=1.02 5 [facility] Comment on above: Performed By: #### E RUR ####[facility] Hytmsaxlok[address] [place] [address]Dr. Flaco Otero UA PROTEIN Negative Normal NEGATIVE/ TRACE [facility] Comment on above: Performed By: #### E RUR ####[facility] Uptasbqlll[address] [place] [address]Dr. Flaco Branden UR MICRO IND NOT INDICATED Normal [facility] Comment on above: Performed By: #### E RUR ####[facility] Srlxyvjyni[address] [place] [address]Dr. Flaco Otero Urobilinogen Qn (U) 2.0 {Tuan'U}/dL Abnormal 0.2 - 1. 0 [facility] Comment on above: Performed By: #### E RUR ####[facility] Aopth[address]zzdn[address] [place] [address]Dr. Flaco Branden LIPASEon 02-08-2023 Lipase [Catalytic activity/Vol] 280.0 U/L Normal 73.0-393.0 [facility] Comment on above: Performed By: #### A RICCARDO LIPA, CMP ####[facility] Bhdvogeyib[address] [place] [address]DrJeramie Otero PROF 14(COMP METB)on 023 Albumin [Mass/Vol] 3.5 g/dL Normal 3.4-5.0 [facility] Comment on above: Performed By: #### A MY LIPA, CMP ####[facility] Nbpdetxlrf[address] [place] [address]Dr. Flaco Otero Albumin/Globulin [Mass ratio] 1.2 {ratio} Normal [facility] Comment on above: Performed By: #### A HONORIO GUA, CMP ####[facility] [address]xtjv[address]ngq[address] [place] [address]Dr. Flaco Branden ALP [Catalytic activity/Vol] 81 U/L Normal 46-116 [facility] Comment on above: Performed By: #### A RICCARDO LIPA, CMP ####[facility] [address]nec[address] [place] [address]Dr. Purviedith Otero ALT [Catalytic activity/Vol] 7 U/L Critically low 16-63 [facility] Comment on above: Performed By: #### A RICCARDO LIPA, CMP ####[facility] Ssvxokiwzb[address] [place], [place] [address]Dr. Flaco Otero Anion gap [Moles/Vol] 10.3 mmol/L Normal [facility] Comment on above: Performed By: #### A RICCARDO LIPA, CMP ####[facility] [address]clcw[address] [address] [place], [place] [address]Dr. Flaco Otero AST [Catalytic activity/Vol] 20 U/L Normal 15-37 [facility] Comment on above: Performed By: #### A RICCARDO LIPA, CMP ####[facility] B[address]jvq[address] [place], [place] [address]Dr. Flaco Otero Bilirubin [Mass/Vol] 3.1 mg/dL Critically high 0.2-1.0 [facility] Comment on above: Performed By: #### A RICCARDO LIPA, CMP ####[facility] Plbxgeydxy[address] [place], [place] [address]Dr. Flaco Otero Calcium [Mass/Vol] 8.7 mg/dL Normal 8.5-10.1 [facility] Comment on above: Performed By: #### A RICCARDO LIPA, CMP ####[facility] Honmqmjqib[address] [place], [place] [address]Dr. Flaco Otero Chloride [Moles/Vol] 103 mmol/L Normal 98-107 [facility] Comment on above: Performed By: #### A HONORIO GUA, CMP ####[facility] [address]sp[address]cexs[address] [place] [address]Dr. Flaco Otero CO2 [Moles/Vol] 30.5 mmol/L Normal 21.0-32.[address] [facility] Comment on above: Performed By: #### A RICCARDO LIPA, CMP ####[facility] Tlywekdmxx[address] [place] [address]Dr. Flaco Otero Creatinine [Mass/Vol] 1.81 mg/dL Critically high 0.70-1.30 [facility] Comment on above: Performed By: #### A DEMOND GU, CMP ####[facility] Xmdqczztss[address] [place], [place] [address]Dr. Flaco Otero EGFR-AF EGYPTIAN 45 mL/min/1.73m2 Critically low >=60 [facility] Comment on above: Performed By: #### A DEMOND GU, CMP ####[facility] Hovrzharqy[address] [place], [place] [address]Dr. Flaco Otero EGFR-NON AF EGYPTIAN 37 mL/min/1.73m2 Critically low >=60 [facility] Comment on above: Performed By: #### A DEMOND GU, CMP ####[facility] Tnaaaxqmjd3[address] [place], [place] [address]Dr. Flaco Otero Globulin (S) [Mass/Vol] 3.0 g/dL Normal [facility] Comment on above: Performed By: #### A DEMOND GU, CMP ####[facility] Acryiihcji[address] [place] [address]Dr. Flaco Otero Glucose [Mass/Vol] 94 mg/dL Normal 74-106 [facility] Comment on above: Performed By: #### A DEMOND GU, CMP ####[facility] Gkwwyikegr7[address] [place], [place] [address]Dr. Flaco Otero Potassium [Moles/Vol] 2.5 mmol/L Critically low 3.5-5.1 [facility] Comment on above: Performed By: #### A DEMOND GU, CMP ####[facility] Ietcfwjkbe5[address] [place] [address]Dr. Flaco Otero Protein [Mass/Vol] 6.5 g/dL Normal 6.4-8.2 [facility] Comment on above: Performed By: #### A DEMOND GU, CMP ####[facility] Wmvqaywoxc6[address] [place] [address]Dr. Flaco Otero Sodium [Moles/Vol] 133 mmol/L Critically low 136-145 [facility] Comment on above: Performed By: #### A DEMOND GU, CMP ####[facility] Exzjplldud[address] [place], [place] [address]Dr. Flaco Otero Urea nitrogen [Mass/Vol] 10.0 mg/dL Normal 7.0-18.0 [facility] Comment on above: Performed By: #### A DEMOND GU, CMP ####[facility] Dehageujtd9[address] [place], [place] [address]Dr. Flaco Otero Urea nitrogen/Creatinine [Mass ratio] 5.5 mg/mg Normal [facility] Comment on above: Performed By: #### A DEMOND GU, CMP ####[facility] Orshdsxqwa[address] [place], [place] [address]Dr. Flaco Otero PROF CHEM 8 (BAS METB)on Anion gap [Moles/Vol] 16.8 mmol/L Normal [facility] Comment on above: Performed By: #### B MP ####[facility] Pmsvsmluzb2[address] [place], [place] [address]Dr. Flaco Otero Calcium [Mass/Vol] 8.5 mg/dL Normal 8.5-10.1 [facility] Comment on above: Performed By: #### B MP ####[facility] Eeoleluoid38[address] [place], [place] [address]Dr. Flaco Otero Chloride [Moles/Vol] 107 mmol/L Normal 98-107 [facility] Comment on above: Performed By: #### B MP ####[facility] Ooyefhdfat15[address] [place], [place] [address]Dr. Flaco Otero CO2 [Moles/Vol] 25.0 mmol/L Normal 21.0-32.0 [facility] Comment on above: Performed By: #### B MP ####[facility] Rbewneesrm[address] [place] [address]Dr. Flaco Otero Creatinine [Mass/Vol] 1.62 mg/dL Critically high 0.70-1.30 [facility] Comment on above: Performed By: #### B MP ####[facility] Ugunindwpu786[address] [place], [place] [address]Dr. Flaco Otero EGFR-AF EGYPTIAN 51 mL/min/1.73m2 Critically low >=60 [facility] Comment on above: Performed By: #### B MP ####[facility] Vqevofsxia0647[address] [place], [place] [address]Dr. Flaco Otero EGFR-NON AF EGYPTIAN 42 mL/min/1.73m2 Critically low >=60 [facility] Comment on above: Performed By: #### B MP ####[facility] Blkafoprfx278[address] [place], [place] [address]Dr. Flaco Otero Glucose [Mass/Vol] 73 mg/dL Critically low 74-106 [facility] Comment on above: Performed By: #### B MP ####[facility] Fnncdesrhc5746[address] [place], [place] [address]Dr. Flaco Otero Potassium [Moles/Vol] 3.8 mmol/L Normal 3.5-5.1 [facility] Comment on above: Performed By: #### B MP ####[facility] Obpljnletz6840[address] [place], [place] [address]Dr. Flaco Otero Sodium [Moles/Vol] 145 mmol/L Normal 136-145 [facility] Comment on above: Performed By: #### B MP ####[facility] Kwwonqdipo[address] [place], [place] [address]Dr. Flaco Otero Urea nitrogen [Mass/Vol] 10.0 mg/dL Normal 7.0-18.0 [facility] Comment on above: Performed By: #### B MP ####[facility] Wwoeqntdwa4539[address] [place], [place] [address]Dr. Flaco Otero Urea nitrogen/Creatinine [Mass ratio] 6.2 mg/mg Normal [facility] Comment on above: Performed By: #### B MP ####[facility] Topndqcoyj030[address] [place], [place] [address]Dr. Flaco Otero XR CHEST 1 Von 02-08-2023 XR CHEST 1 V Normal [facility] XR FOOT RT MIN 3 VIEWSon XR FOOT RT MIN 3 VIEWS Normal Th e [facility] CBC AUTO DIFFon 11-18-2022 BASO # 0.1 103/ul Normal 0.0-0.1 [facility] Comment on above: Performed By: #### C BC ####[facility] Idplelqrkl7598[address] [place], [place] [address]Dr. Flaco Otero Basophils/100 WBC (Bld) 0.6 % Normal 0.2-2.0 [facility] Comment on above: Performed By: #### C BC ####[facility] Pbgpavxyad5[address] [place], [place] [address]Dr. Flaco Otero EO # 0.2 103/ul Normal 0.0-0.7 [facility] Comment on above: Performed By: #### C BC ####[facility] Qkdiocycvr5786[address] [place], [place] [address]Dr. Flaco Otero Eosinophils/100 WBC (Bld) 1.5 % Normal 0.9-7.0 [facility] Comment on above: Performed By: #### C BC ####[facility] Hwotjqguvw[address] [place], [place] [address]Dr. Flaco Otero Erythrocyte distribution width (RBC) [Ratio] 16.2 % Critically high 11.0-15.0 [facility] Comment on above: Performed By: #### C BC ####[facility] Chdnubknaa[address] [place], [place] [address]Dr. Flaco Otero Hematocrit (Bld) [Volume fraction] 35.1 % Critically low 42.0-54.0 [facility] Comment on above: Performed By: #### C BC ####[facility] Zorilemvnm[address] [place], [place] [address]Dr. Flaco Otero Hemoglobin (Bld) [Mass/Vol] 11.5 g/dL Critically low 14.0-18.0 [facility] Comment on above: Performed By: #### C BC ####[facility] Yuqachaavz94[address] [place] [address]DrJeramie Otero IG # 0.05 10e3/ul Critically high 0.00-0.03 [facility] Comment on above: Performed By: #### C BC ####[facility] Yhkgpbetek7[address] [place] [address]DrJeramie Otero IG % 0.5 % Normal 0.0-0.5 [facility] Comment on above: Performed By: #### C BC ####[facility] Zffychydwm5223 [place] [address]DrJeramie Otero LYMPH # 2.1 103/ul Normal 1.2-3.8 [facility] Comment on above: Performed By: #### C BC ####[facility] Orwepnmhgc6636 [place] [address]DrJeramie Otero Lymphocytes/100 WBC (Bld) 20.5 % Normal 20.5-60.0 [facility] Comment on above: Performed By: #### C BC ####[facility] Ozdgsfqmim9[address] [place] [address]DrJeramie Otero MANUAL DIFF REQ NO Normal [facility] Comment on above: Performed By: #### C BC ####[facility] Wfrtkxojfv1680 [place] [address]DrJeramie Otero MCH (RBC) [Entitic mass] 28.1 pg Normal 25.9-34.0 [facility] Comment on above: Performed By: #### C BC ####[facility] Ghywubwhhp6024 [place] [address]DrJeramie Otero MCHC (RBC) [Mass/Vol] 32.8 g/dL Normal 29.9-35.2 [facility] Comment on above: Performed By: #### C BC ####[facility] Uwhzwrbynp26[address] [place] [address]DrJeramie Otero MCV (RBC) [Entitic vol] 85.8 fL Normal 80.0-94.0 [facility] Comment on above: Performed By: #### C BC ####[facility] Xbbvxuwlut8[address] [place] [address]DrJeramie Flaco Branden MONO # 1.2 103/ul Critically high 0.3-0.8 The [facility] Comment on above: Performed By: #### C BC ####[facility] Nwkrkhgacf9[address] [place] [address]DrJeramie Otero Monocytes/100 WBC (Bld) 11.5 % Normal 1.7-12.0 [facility] Comment on above: Performed By: #### C BC ####[facility] Ljrmxmqoau9198 [place] [address]Dr. Purviedith Otero NEUT # 6.5 103/ul Normal 1.4-6.5 [facility] Comment on above: Performed By: #### C BC ####[facility] Bjxkwdkfit7322 [place] [address]Dr. Flaco Otero Neutrophils/100 WBC (Bld) 65.4 % Normal 43.0-75.0 [facility] Comment on above: Performed By: #### C BC ####[facility] Ebukqllrlf[address] [place], [place] [address]Dr. Purviedith Otero Platelet mean volume (Bld) [Entitic vol] 10.3 fL Normal 9.5-13.5 [facility] Comment on above: Performed By: #### C BC ####[facility] Gdlrvfmrmt18[address] [place] [address]Dr. Purviedith Branden PLT 399 103/ul Normal 150-450 [facility] Comment on above: Performed By: #### C BC ####[facility] Bgskebdapj0394 [place] [phone] Otero RBC 4.09 106/ul Critically low 4.70-6.10 [facility] Comment on above: Performed By: #### C BC ####[facility] Cbtwriivtd7826 [place] [phone] Otero WBC 10.0 103/ul Normal 4.0-11.0 [facility] Comment on above: Performed By: #### C BC ####[facility] Vsqigulxqw4136 [place] [address]DrJeramie Otero PROF 14(COMP METB)on 023 Albumin [Mass/Vol] 2.4 g/dL Critically low 3.4-5.0 [facility] Comment on above: Performed By: #### C MP ####[facility] Mxrmcghlum6292 [place] [address]DrJeramie Otero Albumin/Globulin [Mass ratio] 0.6 {ratio} Normal [facility] Comment on above: Performed By: #### C MP ####[facility] Lufudkhvtf23[address] [place], [place] [address]Dr. Flaco Otero ALP [Catalytic activity/Vol] 130 U/L Critically high 46-116 [facility] Comment on above: Performed By: #### C MP ####[facility] Pypkfkjtrl9[address] [place], [place] [address]Dr. Flaco Otero ALT [Catalytic activity/Vol] 12 U/L Critically low 16-63 [facility] Comment on above: Performed By: #### C MP ####[facility] Gzueytxavn8964[address] [place], [place] [address]DrJeramie Otero Anion gap [Moles/Vol] 13.6 mmol/L Normal [facility] Comment on above: Performed By: #### C MP ####[facility] Skcbpdxfxd9787 [place] [address]Dr. Flaco Otero AST [Catalytic activity/Vol] 27 U/L Normal 15-37 [facility] Comment on above: Performed By: #### C MP ####[facility] Paefzmcdyj2668 [place] [address]DrJeramie Otero Bilirubin [Mass/Vol] 0.5 mg/dL Normal 0.2-1.0 [facility] Comment on above: Performed By: #### C MP ####[facility] Gvmfwbilul8434 [place] [address]DrJeramie Otero Calcium [Mass/Vol] 9.2 mg/dL Normal 8.5-10.1 [facility] Comment on above: Performed By: #### C MP ####[facility] Bnrbkbukwq7329 [place] [address]Dr. Flaco Otero Chloride [Moles/Vol] 98 mmol/L Normal 98-107 [facility] Comment on above: Performed By: #### C MP ####[facility] Oamliegjmw9597 [place] [address]Dr. Flaco Otero CO2 [Moles/Vol] 24.0 mmol/L Normal 21.0-32.0 [facility] Comment on above: Performed By: #### C MP ####[facility] Ylaitnxpvl5385 [place] [address]Dr. Flaco Branden Creatinine [Mass/Vol] 1.67 mg/dL Critically high 0.70-1.30 [facility] Comment on above: Performed By: #### C MP ####[facility] Vnfvdanogj1674[address] [place], [place] [address]Dr. Flaco Branden EGFR-AF EGYPTIAN 49 mL/min/1.73m2 Critically low >=60 [facility] Comment on above: Performed By: #### C MP ####[facility] Xmpzgfqldn[address]253[address] [place], [place] [address]Dr. Flaco Branden EGFR-NON AF EGYPTIAN 41 mL/min/1.73m2 Critically low >=60 [facility] Comment on above: Performed By: #### C MP ####[facility] Ngwnwctbxq7816[address] [place], [place] [address]Dr. Flaco Branden Globulin (S) [Mass/Vol] 4.3 g/dL Normal [facility] Comment on above: Performed By: #### C MP ####[facility] Vnzfbiccpn0085[address] [place], [place] [address]Dr. Flaco Branden Glucose [Mass/Vol] 103 mg/dL Normal 74-106 [facility] Comment on above: Performed By: #### C MP ####[facility] Zanovnnvmb1348 [place] [address]Dr. Flaco Otero Potassium [Moles/Vol] 3.6 mmol/L Normal 3.5-5.1 [facility] Comment on above: Performed By: #### C MP ####[facility] Nbtnjpprll0738[address] [place], [place] [address]Dr. Flaco Branden Protein [Mass/Vol] 6.7 g/dL Normal 6.4-8.2 [facility] Comment on above: Performed By: #### C MP ####[facility] Nryhiwceje6995[address] [place], [place] [address]Dr. Flaco Otero Sodium [Moles/Vol] 132 mmol/L Critically low 136-145 [facility] Comment on above: Performed By: #### C MP ####[facility] Tvldysoaqv088[address] [place], [place] [address]Dr. Flaco Otero Urea nitrogen [Mass/Vol] 26.0 mg/dL Critically high 7.0-18.0 [facility] Comment on above: Performed By: #### C MP ####[facility] Njjbjnnpwb7398[address] [place], [place] [address]Dr. Flaco Branden Urea nitrogen/Creatinine [Mass ratio] 15.6 mg/mg Normal [facility] Comment on above: Performed By: #### C MP ####[facility] Tbgqiwdjoq4355[address] [place], [place] [address]Dr. Flaco Branden CBC AUTO DIFFon 11-17-2022 BASO # 0.0 103/ul Normal 0.0-0.1 [facility] Comment on above: Performed By: #### C BC ####[facility] Qkrjbtmpjl340[address] [place], [place] [address]Dr. Flaco Otero Basophils/100 WBC (Bld) 0.4 % Normal 0.2-2.0 [facility] Comment on above: Performed By: #### C BC ####[facility] Antixjdwrp976[address] [place], [place] [address]Dr. Flaco Otero EO # 0.0 103/ul Normal 0.0-0.7 [facility] Comment on above: Performed By: #### C BC ####[facility] Qeqfnqgyyk7986[address] [place], [place] [address]Dr. Flaco Otero Eosinophils/100 WBC (Bld) 0.4 % Critically low 0.9-7.0 [facility] Comment on above: Performed By: #### C BC ####[facility] Sdburtuiae2736[address] [place], [place] [address]Dr. Flaco Otero Erythrocyte distribution width (RBC) [Ratio] 16.0 % Critically high 11.0-15.0 [facility] Comment on above: Performed By: #### C BC ####[facility] Ifzrfarthm7040[address] [place], [place] [address]Dr. Flaco Otero Hematocrit (Bld) [Volume fraction] 36.4 % Critically low 42.0-54.0 [facility] Comment on above: Performed By: #### C BC ####[facility] Xvcwkzksls0186[address] [place], [place] [address]Dr. Flaco Otero Hemoglobin (Bld) [Mass/Vol] 12.0 g/dL Critically low 14.0-18.0 [facility] Comment on above: Performed By: #### C BC ####[facility] Mstovtrynd169[address] [place], [place] [address]Dr. Flaco Otero IG # 0.03 10e3/ul Normal 0.00-0.03 [facility] Comment on above: Performed By: #### C BC ####[facility] Bnbatqflvl2220[address] [place], [place] [address]Dr. Flaco Otero IG % 0.3 % Normal 0.0-0.5 [facility] Comment on above: Performed By: #### C BC ####[facility] Ktxfcdhcuk9[address] [place], [place] [address]Dr. Flaco Otero LYMPH # 1.6 103/ul Normal 1.2-3.8 [facility] Comment on above: Performed By: #### C BC ####[facility] Caaupwrwgv2632[address] [place], [place] [address]Dr. Flaco Otero Lymphocytes/100 WBC (Bld) 14.7 % Critically low 20.5-60.0 [facility] Comment on above: Performed By: #### C BC ####[facility] Mavnpooioe[address] [place], [place] [address]Dr. Yiedith Otero MANUAL DIFF REQ NO Normal [facility] Comment on above: Performed By: #### C BC ####[facility] Lknalpsuxq4646 [place] [address]Dr. Flaoc Branden MCH (RBC) [Entitic mass] 28.2 pg Normal 25.9-34.0 [facility] Comment on above: Performed By: #### C BC ####[facility] Hhmurmtckg6635 [place] [address]Dr. Flaco Branden MCHC (RBC) [Mass/Vol] 33.0 g/dL Normal 29.9-35.2 [facility] Comment on above: Performed By: #### C BC ####[facility] Gcwboxdmku4[address] [place], [place] [address]DrJeramie Otero MCV (RBC) [Entitic vol] 85.4 fL Normal 80.0-94.0 [facility] Comment on above: Performed By: #### C BC ####[facility] Eoklhlnbiu23[address] [place], [place] [address]DrJeramie Otero MONO # 1.4 103/ul Critically high 0.3-0.8 [facility] Comment on above: Performed By: #### C BC ####[facility] Fmyslgotwi8063[address] [place], [place] [address]Dr. Flaco Otero Monocytes/100 WBC (Bld) 12.6 % Critically high 1.7-12.0 [facility] Comment on above: Performed By: #### C BC ####[facility] Rnscrswrpr[address] [place], [place] [address]DrJeramie Otero NEUT # 7.7 103/ul Critically high 1.4-6.5 [facility] Comment on above: Performed By: #### C BC ####[facility] Astwhgpxsp7706[address] [place], [place] [address]DrJeramie Otero Neutrophils/100 WBC (Bld) 71.6 % Normal 43.0-75.0 [facility] Comment on above: Performed By: #### C BC ####[facility] Efkkgulwlk[address] [place], [place] [address]Dr. Flaco Otero Platelet mean volume (Bld) [Entitic vol] 9.5 fL Normal 9.5-13.5 [facility] Comment on above: Performed By: #### C BC ####[facility] Xknzrvalzs5431 [place] [address]Dr. Flaco Otero PLT 462 103/ul Critically high 150-450 [facility] Comment on above: Performed By: #### C BC ####[facility] Kfxyosgylp7359 [place] [address]Dr. Flaco Otero RBC 4.26 106/ul Critically low 4.70-6.10 [facility] Comment on above: Performed By: #### C BC ####[facility] Ivngqxiuhx6151 [place] [address]Dr. Flaco Otero WBC 10.8 103/ul Normal 4.0-11.0 [facility] Comment on above: Performed By: #### C BC ####[facility] Lagaxhkgeh3890 [place] [address]Dr. Flaco Otero MRI CSPINE WO CONon 11-17-19 23 MRI CSPINE WO CON Normal The [facility] PROF 14(COMP METB)on 023 Albumin [Mass/Vol] 2.4 g/dL Critically low 3.4-5.0 Th [facility] Comment on above: Performed By: #### C MP ####[facility] Uhaolklpvj8733 [place] [address]Dr. Flaco Otero Albumin/Globulin [Mass ratio] 0.5 {ratio} Normal [facility] Comment on above: Performed By: #### C MP ####[facility] Mbirwpbkvu3083 [place] [address]Dr. Flaco Otero ALP [Catalytic activity/Vol] 132 U/L Critically high 46-116 [facility] Comment on above: Performed By: #### C MP ####[facility] Wmnejuwgip8659 [place] [address]Dr. Flaco Otero ALT [Catalytic activity/Vol] 18 U/L Normal 16-63 [facility] Comment on above: Performed By: #### C MP ####[facility] Blcvempldf6959 [place] [phone]. Flaco Otero Anion gap [Moles/Vol] 15.7 mmol/L Normal [facility] Comment on above: Performed By: #### C MP ####[facility] Iwcvqxzowz3145 [place] [phone]. Flaco Otero AST [Catalytic activity/Vol] 26 U/L Normal 15-37 [facility] Comment on above: Performed By: #### C MP ####[facility] Aoyxghtzbc1201 [place] [phone]. Flaco Otero Bilirubin [Mass/Vol] 0.5 mg/dL Normal 0.2-1.0 [facility] Comment on above: Performed By: #### C MP ####[facility] Okpahmjgdj60[address] [place], [place] [address]Dr. Flaco Otero Calcium [Mass/Vol] 9.2 mg/dL Normal 8.5-10.1 [facility] Comment on above: Performed By: #### C MP ####[facility] Gijrttojln8[address] [place], [place] [address]Dr. Flaco Otero Chloride [Moles/Vol] 99 mmol/L Normal 98-107 [facility] Comment on above: Performed By: #### C MP ####[facility] Uhkruhlkgv[address] [place], [place] [id number]. Flaco Otero CO2 [Moles/Vol] 23.9 mmol/L Normal 21.0-32.[address] [facility] Comment on above: Performed By: #### C MP ####[facility] Ogchsrjrav902[address] [place], [place] [address]Dr. Flaco Otero Creatinine [Mass/Vol] 1.65 mg/dL Critically high 0.70-1.30 [facility] Comment on above: Performed By: #### C MP ####[facility] Ctubbmdnay[address] [place], [place] [id number]. Flaco Otero EGFR-AF EGYPTIAN 50 mL/min/1.73m2 Critically low >=60 [facility] Comment on above: Performed By: #### C MP ####[facility] Updiqvidvb6154 [place] [phone]. Flaco Otero EGFR-NON AF EGYPTIAN 41 mL/min/1.73m2 Critically low >=60 [facility] Comment on above: Performed By: #### C MP ####[facility] Bvvsxmvqgb3088 [place] [phone]. Flaco Otero Globulin (S) [Mass/Vol] 4.5 g/dL Normal [facility] Comment on above: Performed By: #### C MP ####[facility] Wbqlvxbiyw6647 [place] [phone]. Flaco Otero Glucose [Mass/Vol] 116 mg/dL Critically high 74-106 [facility] Comment on above: Performed By: #### C MP ####[facility] Usphssfnue[address] [place] [address]Dr. Flaco Otero Potassium [Moles/Vol] 3.6 mmol/L Normal 3.5-5.1 [facility] Comment on above: Performed By: #### C MP ####[facility] Mwtfabdcpt[address] [place], [place] [address]Dr. Flaco Otero Protein [Mass/Vol] 6.9 g/dL Normal 6.4-8.2 [facility] Comment on above: Performed By: #### C MP ####[facility] Pqtrrahisl[address] [place] [address]Dr. Flaco Otero Sodium [Moles/Vol] 135 mmol/L Critically low 136-145 Th [facility] Comment on above: Performed By: #### C MP ####[facility] Ntpzodiqos8352 [place] [phone]. Flaco Otero Urea nitrogen [Mass/Vol] 21.0 mg/dL Critically high 7.0-18.0 [facility] Comment on above: Performed By: #### C MP ####[facility] Wjwzhrmutc40[address] [place] [phone]. Flaco Otero Urea nitrogen/Creatinine [Mass ratio] 12.7 mg/mg Normal [facility] Comment on above: Performed By: #### C MP ####[facility] Xewpentimf00[address] [place] [address]Dr. Flaco Otero CBC W MANUAL DIFFon 11-16-19 23 ATYPICAL LYMPH # Normal The [facility] Comment on above: Performed By: #### C [place] ####[facility] Aqkwhafuml6[address] [place] [address]Dr. Flaco Otero ATYPICAL LYMPH % Normal The [facility] Comment on above: Performed By: #### C C[place] ####[facility] Bsltfdcvmj[address] [place], [place] [address]Dr. Flaco Otero BAND # 0.0 103/ul Normal 0.0-0.3 The [facility] Comment on above: Performed By: #### C [place] ####[facility] Ddpgygdqhp40[address] [place], [place] [address]Dr. Flaco Otero BAND % 0 % Normal 0-5 The [facility] Comment on above: Performed By: #### C [place] ####[facility] Ksjqwpvgoo9[address] [place], [place] [address]Dr. Flaco Otero BASOM # 0.00 103/ul Normal 0.00-0.10 The [facility] Comment on above: Performed By: #### C [place] ####[facility] Gjjudnwrxj[address] [place], [place] [address]Dr. Flaco Otero BASOM % 0.0 % Critically low 0.2-2.0 The [facility] Comment on above: Performed By: #### C [place] ####[facility] Majxyfcjny3[address] [place], [place] [address]Dr. Flaco Otero BLAST # Normal The [facility] Comment on above: Performed By: #### C [place] ####[facility] Oukxevwhqu[address] [place], [place] [address]Dr. Flaco Otero BLAST % Normal The [facility] Comment on above: Performed By: #### C [place] ####[facility] Koulyzcois[address] [place], [place] [address]Dr. Flaco Otero CORRECTED WBC Normal 4.0-11.0 The [facility] Comment on above: Performed By: #### C [place] ####[facility] Hktjlhkchp9482 [place], [place] [address]Eg. Flaco Otero EOS # 0.00 103/ul Normal 0.00-0.70 [facility] Comment on above: Performed By: #### C [place] ####[facility] Fcwruspdfo8901 [place], [place] [address]Hx. Flaco Otero EOS% 0.0 % Critically low 0.9-7.0 The [facility] Comment on above: Performed By: #### C [place] ####[facility] Lkuzlbxqeu3284 [place] [phone]. Flaco Otero HCT 35.9 % Critically low 42.0-54.0 The [facility] Comment on above: Performed By: #### C [place] ####[facility] Uczyoflyjb7106 [place] [phone]. Flaco Otero HGB 12.0 g/dl Critically low 14.0-18.0 The [facility] Comment on above: Performed By: #### C [place] ####[facility] Beqjbvxpbr5312 [place] [phone]. Flaco Otero LYMPHM # 1.42 103/ul Normal 1.20-3.80 [facility] Comment on above: Performed By: #### C [place] ####[facility] Gvgqckqbsr2065 [place] [phone]. Flaco Otero LYMPHM% 11.0 % Critically low 20.5-60.0 The [facility] Comment on above: Performed By: #### C [place] ####[facility] Fdawgsuvfj7475 [place] [phone]. Flaco Otero MCH 28.6 pg Normal 25.9-34.0 The [facility] Comment on above: Performed By: #### C C[place] ####[facility] Oigzwrllva0391 [place] [phone]. Flaco Otero MCHC 33.4 g/dl Normal 29.9-35.2 The [facility] Comment on above: Performed By: #### C [place] ####[facility] Vcfjtzlvws6605 [place], [place] [address]Nk. Flaco Otero MCV 85.5 fL Normal 80.0-94.0 The [facility] Comment on above: Performed By: #### C BCMAN ####[facility] Ovrjliuisv3936 [place] [phone]. Flaco Otero METAMYELOCYTE # Normal The [facility] Comment on above: Performed By: #### C BCGAYATHRI ####[facility] Xgixvekagb7889 [place] [phone]. Flaco Otero METAMYELOCYTE % Normal The [facility] Comment on above: Performed By: #### C [place] ####[facility] Uhgczjwnxa8409 [place] [phone]. Flaco Otero MONOM# 1.42 103/ul Critically high 0.30-0.80 [facility] Comment on above: Performed By: #### C [place] ####[facility] Fqjvvgeply8076 [place] [phone]. Flaco Otero MONOM% 11.0 % Normal 1.7-12.0 [facility] Comment on above: Performed By: #### C [place] ####[facility] Kqxbffcuin[address] [place], [place] [phone]. Flaco Branden MPV 9.5 fL Normal 9.5-13.5 [facility] Comment on above: Performed By: #### C [place] ####[facility] Avsmphzhog6596 [place] [phone]. Flaco Otero MYELOCYTE # Normal The [facility] Comment on above: Performed By: #### C [place] ####[facility] Svksdkgdqi9664 [place] [phone]. Flaco Otero MYELOCYTE % Normal The [facility] Comment on above: Performed By: #### C [place] ####[facility] Galcztsges8763 [place] [phone]. Flaco Otero NRBC Normal The [facility] Comment on above: Performed By: #### C [place] ####[facility] Fgmkjmjimv23[address] [place], [place] [phone]. Flaco Otero PLT 469 103/ul Critically high 150-450 The [facility] Comment on above: Performed By: #### C [place] ####[facility] Gfmqrebulc3465 [place], [place] [address]EsJeramie Flaco Branden RBC 4.20 106/ul Critically low 4.70-6.10 [facility] Comment on above: Performed By: #### C [place] ####[facility] Iumsjkwftl8471 [place] [phone]. Flaco Branden RDW 16.3 % Critically high 11.0-15.0 [facility] Comment on above: Performed By: #### C [place] ####[facility] Jndrvtjipb0000 [place] [phone] Otero SEG # 10.06 103/ul Critically high 1.40-6.50 [facility] Comment on above: Performed By: #### Corina GUTHRIE ####[facility] Wgvvvlnhmi4451 [place] [phone] Flaco Branden SEG % 78.0 % Critically high 43.0-75.0 [facility] Comment on above: Performed By: #### C [place] ####[facility] Cduwvmvuwb6549 [place] [phone] Purviedith Otero WBC 12.9 103/ul Critically high 4.0-11.0 [facility] Comment on above: Performed By: #### Corina GUTHRIE ####[facility] Nglhybkqyq2556 [place] [phone]. Flaco Otero PROF 14(COMP METB)on 023 Albumin [Mass/Vol] 2.5 g/dL Critically low 3.4-5.0 Th [facility] Comment on above: Performed By: #### C MP ####[facility] Qemltzjuyi6569 [place] [phone] Otero Albumin/Globulin [Mass ratio] 0.6 {ratio} Normal [facility] Comment on above: Performed By: #### C YEHUDA ####[facility] Dcqmisimdq2051 [place] [phone]. Flaco Otero ALP [Catalytic activity/Vol] 118 U/L Critically high 46-116 [facility] Comment on above: Performed By: #### C MP ####[facility] Tvciaceckj3998 [place] [address]Dr. Flaco Otero ALT [Catalytic activity/Vol] 12 U/L Critically low 16-63 [facility] Comment on above: Performed By: #### C MP ####[facility] Xvkwpbfrzt0476 [place] [address]Dr. Flaco Branden Anion gap [Moles/Vol] 15.8 mmol/L Normal Th e [facility] Comment on above: Performed By: #### C MP ####[facility] Jfoxuyihls65[address] [place], [place] [address]Dr. Flaco Branden AST [Catalytic activity/Vol] 22 U/L Normal 15-37 [facility] Comment on above: Performed By: #### C MP ####[facility] Cnoalivbih[address] [place], [place] [address]Dr. Flaco Branden Bilirubin [Mass/Vol] 0.8 mg/dL Normal 0.2-1.0 [facility] Comment on above: Performed By: #### C MP ####[facility] Jqqnwhevdp97[address] [place], [place] [address]Dr. Flaco Branden Calcium [Mass/Vol] 8.9 mg/dL Normal 8.5-10.1 [facility] Comment on above: Performed By: #### C MP ####[facility] Qfvblqkghd4125[address] [place], [place] [address]Dr. Flaco Branden Chloride [Moles/Vol] 97 mmol/L Critically low 98-107 [facility] Comment on above: Performed By: #### C MP ####[facility] Badwebttna57[address] [place], [place] [address]Dr. Flaco Otero CO2 [Moles/Vol] 22.8 mmol/L Normal 21.0-32.0 [facility] Comment on above: Performed By: #### C MP ####[facility] Xkgllreuvs[address] [place], [place] [address]DrJeramie Otero Creatinine [Mass/Vol] 1.64 mg/dL Critically high 0.70-1.30 [facility] Comment on above: Performed By: #### C MP ####[facility] Qlavvhagrr0031 [place] [phone]. Flaco Branden EGFR-AF EGYPTIAN 50 mL/min/1.73m2 Critically low >=60 [facility] Comment on above: Performed By: #### C MP ####[facility] Cixkyuhfvo4064 [place] [phone]. Flaco Otreo EGFR-NON AF EGYPTIAN 42 mL/min/1.73m2 Critically low >=60 [facility] Comment on above: Performed By: #### C MP ####[facility] Ulwhbomnrt2787 [place] [address]Dr. Flaco Otero Globulin (S) [Mass/Vol] 4.2 g/dL Normal [facility] Comment on above: Performed By: #### C MP ####[facility] Pwpcornqbu4682 [place] [address]Dr. Flaco Otero Glucose [Mass/Vol] 110 mg/dL Critically high 74-106 T [facility] Comment on above: Performed By: #### C MP ####[facility] Fqrjxgdysv1136 [place] [address]Dr. Flaco Otero Potassium [Moles/Vol] 3.6 mmol/L Normal 3.5-5.1 [facility] Comment on above: Performed By: #### C MP ####[facility] Vcniwzpgjv0685 [place] [phone]. Flaco Otero Protein [Mass/Vol] 6.7 g/dL Normal 6.4-8.2 [facility] Comment on above: Performed By: #### C MP ####[facility] Dzlocikknl6456 [place] [address]Dr. Flaco Otero Sodium [Moles/Vol] 132 mmol/L Critically low 136-145 Th [facility] Comment on above: Performed By: #### C MP ####[facility] Surbszjlgf2261 [place] [address]Dr. Flaco Otero Urea nitrogen [Mass/Vol] 20.0 mg/dL Critically high 7.0-18.0 The [facility] Comment on above: Performed By: #### C MP ####[facility] Uigsttddic7[address] [place], [place] [address]Dr. Flaco Otero Urea nitrogen/Creatinine [Mass ratio] 12.2 mg/mg Normal The [facility] Comment on above: Performed By: #### C MP ####[facility] Epfldpjrzn507[address] [place], [place] [address]Dr. Flaco Otero AMMONIAon 11-15-2022 Ammonia (P) [Moles/Vol] 22 umol/L Normal 11-32 The [facility] Comment on above: Performed By: #### A MM ####[facility] Xjjztgucsv07[address] [place], [place] [address]Dr. Flaco Otero CBC AUTO DIFFon 11-15-2022 BASO # 0.0 103/ul Normal 0.0-0.1 The [facility] Comment on above: Performed By: #### C BC ####[facility] Dupfmqwqbt4019[address] [place], [place] [address]Dr. Flaco Otero Basophils/100 WBC (Bld) 0.3 % Normal 0.2-2.0 The [facility] Comment on above: Performed By: #### C BC ####[facility] Mabtlmpujy[address] [place], [place] [address]Dr. Flaco Otero EO # 0.0 103/ul Normal 0.0-0.7 The [facility] Comment on above: Performed By: #### C BC ####[facility] Nyertupncw1617[address] [place], [place] [address]Dr. Flaco Otero Eosinophils/100 WBC (Bld) 0.3 % Critically low 0.9-7.0 The [facility] Comment on above: Performed By: #### C BC ####[facility] Vlfbswjura817[address] [place], [place] [address]Dr. Flaco Otero Erythrocyte distribution width (RBC) [Ratio] 16.3 % Critically high 11.0-15.0 The [facility] Comment on above: Performed By: #### C BC ####[facility] Hoplzfszdq5268 [place] [address]Dr. Purviedith Otero Hematocrit (Bld) [Volume fraction] 39.2 % Critically low 42.0-54.0 The [facility] Comment on above: Performed By: #### C BC ####[facility] Elvyklnfpa8869 [place] [address]Dr. Flaco Otero Hemoglobin (Bld) [Mass/Vol] 12.9 g/dL Critically low 14.0-18.0 The [facility] Comment on above: Performed By: #### C BC ####[facility] Vvclatepzm3[address] [place], [place] [address]Dr. Flaco Otero IG # 0.05 10e3/ul Critically high 0.00-0.03 [facility] Comment on above: Performed By: #### C BC ####[facility] Yysuxgwfph6038[address] [place], [place] [address]Dr. Flaco Otero IG % 0.4 % Normal 0.0-0.5 [facility] Comment on above: Performed By: #### C BC ####[facility] Ugqrsakqqt5708[address] [place], [place] [address]Dr. Flaco Otero LYMPH # 1.6 103/ul Normal 1.2-3.8 The [facility] Comment on above: Performed By: #### C BC ####[facility] Tusftxtttk5795[address] [place], [place] [address]Dr. Flaco Otero Lymphocytes/100 WBC (Bld) 12.5 % Critically low 20.5-60.0 The [facility] Comment on above: Performed By: #### C BC ####[facility] Ruxheqhxcx4[address] [place], [place] [address]Dr. Flaco Otero MANUAL DIFF REQ NO Normal The [facility] Comment on above: Performed By: #### C BC ####[facility] Jxiqtzckdw6725[address] [place], [place] [address]Dr. Flaco Otero MCH (RBC) [Entitic mass] 28.7 pg Normal 25.9-34.0 The [facility] Comment on above: Performed By: #### C BC ####[facility] Fljtwednun9440 [place] [phone]. Flaco Otero MCHC (RBC) [Mass/Vol] 32.9 g/dL Normal 29.9-35.2 The [facility] Comment on above: Performed By: #### C BC ####[facility] Pvdardwntn7728 [place] [phone]. Flaco Otero MCV (RBC) [Entitic vol] 87.1 fL Normal 80.0-94.0 The [facility] Comment on above: Performed By: #### C BC ####[facility] Afcgehxqjq075[address] [place], [place] [address]Dr. Flaco Otero MONO # 1.4 103/ul Critically high 0.3-0.8 The [facility] Comment on above: Performed By: #### C BC ####[facility] Iwwepaecen6934 [place] [phone]. Purviedith Otero Monocytes/100 WBC (Bld) 11.2 % Normal 1.7-12.0 The [facility] Comment on above: Performed By: #### C BC ####[facility] Rsaqnevsxj69[address] [place], [place] [address]Dr. Flaco Otero NEUT # 9.4 103/ul Critically high 1.4-6.5 The [facility] Comment on above: Performed By: #### C BC ####[facility] Hztnroyoat8326 [place] [phone]. Purviedith Otero Neutrophils/100 WBC (Bld) 75.3 % Critically high 43.0-75.0 The [facility] Comment on above: Performed By: #### C BC ####[facility] Ipwhhstxvd5500 [place] [phone]. Flaco Otero Platelet mean volume (Bld) [Entitic vol] 9.3 fL Critically low 9.5-13.5 The [facility] Comment on above: Performed By: #### C BC ####[facility] Wonzjxomgy0019[address] [place], [place] [address]Dr. Purviedith Branden PLT 532 103/ul Critically high 150-450 The [facility] Comment on above: Performed By: #### C BC ####[facility] Ibjbvczcww3082 [place] [phone]. Flaco Otero RBC 4.50 106/ul Critically low 4.70-6.10 [facility] Comment on above: Performed By: #### C BC ####[facility] Xnxryhxfph7260 [place] [phone]. Flaco Otero WBC 12.5 103/ul Critically high 4.0-11.0 [facility] Comment on above: Performed By: #### C BC ####[facility] Ekoaheheag1572 [place] [address]Dr. Flaco Otero PROF 14(COMP METB)on 023 Albumin [Mass/Vol] 3.0 g/dL Critically low 3.4-5.0 [facility] Comment on above: Performed By: #### C MP ####[facility] Nyevfmknvx5620 [place] [address]Dr. Flaco Otero Albumin/Globulin [Mass ratio] 0.5 {ratio} Normal [facility] Comment on above: Performed By: #### C MP ####[facility] Bvezqcebkn7369 [place] [address]Dr. Flaco Otero ALP [Catalytic activity/Vol] 103 U/L Normal 46-116 [facility] Comment on above: Performed By: #### C MP ####[facility] Eepvybisvw4139 [place] [address]Dr. Flaco Otero ALT [Catalytic activity/Vol] 12 U/L Critically low 16-63 [facility] Comment on above: Performed By: #### C MP ####[facility] Lfaydblhnq9865 [place] [address]Dr. Flaco Otero Anion gap [Moles/Vol] 16.8 mmol/L Normal [facility] Comment on above: Performed By: #### C MP ####[facility] Qzwjyitkpj7562 [place] [address]Dr. Flaco Otero AST [Catalytic activity/Vol] 16 U/L Normal 15-37 [facility] Comment on above: Performed By: #### C MP ####[facility] Xskbxkrrqp4971 [place] [phone]. Flaco Otero Bilirubin [Mass/Vol] 1.0 mg/dL Normal 0.2-1.0 The [facility] Comment on above: Performed By: #### C MP ####[facility] Mmeghzjfid4077 [place] [phone]. Flaco Otero Calcium [Mass/Vol] 9.8 mg/dL Normal 8.5-10.1 [facility] Comment on above: Performed By: #### C MP ####[facility] Rzojdrnmgd3283 [place] [phone]. Flaco Otero Chloride [Moles/Vol] 98 mmol/L Normal 98-107 [facility] Comment on above: Performed By: #### C MP ####[facility] Yrzchpaspc69[address] [place], [place] [address]Dr. Flaco Otero CO2 [Moles/Vol] 24.3 mmol/L Normal 21.0-32.[address] [facility] Comment on above: Performed By: #### C MP ####[facility] Nckatctpsp9[address] [place], [place] [address]Dr. Flaco Otero Creatinine [Mass/Vol] 1.86 mg/dL Critically high 0.70-1.30 [facility] Comment on above: Performed By: #### C MP ####[facility] Byecklvurv3[address] [place], [place] [address]Dr. Flaco Otero EGFR-AF EGYPTIAN 44 mL/min/1.73m2 Critically low >=60 The [facility] Comment on above: Performed By: #### C MP ####[facility] Xohuyakugp5[address] [place], [place] [address]Dr. Flaco Otero EGFR-NON AF EGYPTIAN 36 mL/min/1.73m2 Critically low >=60 The [facility] Comment on above: Performed By: #### C MP ####[facility] Mgvbrlzjvm67[address] [place], [place] [address]Dr. Flaco Otero Globulin (S) [Mass/Vol] 5.6 g/dL Normal [facility] Comment on above: Performed By: #### C MP ####[facility] Czqeffwhnv6041 [place] [phone]. Flaco Otero Glucose [Mass/Vol] 108 mg/dL Critically high 74-106 [facility] Comment on above: Performed By: #### C MP ####[facility] Udhfjkjroi3368 [place] [phone]. Flaco Otero Potassium [Moles/Vol] 4.1 mmol/L Normal 3.5-5.1 [facility] Comment on above: Performed By: #### C MP ####[facility] Gsxxypwhvk9672 [place] [address]Dr. Flaco Otero Protein [Mass/Vol] 8.6 g/dL Critically high 6.4-8.2 [facility] Comment on above: Performed By: #### C MP ####[facility] Lptfrnpkwf1684 [place] [address]Dr. Flaco Otero Sodium [Moles/Vol] 135 mmol/L Critically low 136-145 [facility] Comment on above: Performed By: #### C MP ####[facility] Muonolnssx2079 [place] [address]Dr. Flaco Otero Urea nitrogen [Mass/Vol] 18.0 mg/dL Normal 7.0-18.0 [facility] Comment on above: Performed By: #### C MP ####[facility] Bqyecazjyo2554 [place] [address]Dr. Flaco Otero Urea nitrogen/Creatinine [Mass ratio] 9.7 mg/mg Normal [facility] Comment on above: Performed By: #### C MP ####[facility] Bexeanqtwb3324 [place] [address]Dr. Flaco Otero CT HEAD WO CONon 11-14-2022 CT HEAD WO CON Normal [facility] MRI LSPINE WO CONon 11-14-19 MRI LSPINE WO CON Normal [facility] CBC AUTO DIFFon 11-13-2022 BASO # 0.0 103/ul Normal 0.0-0.1 [facility] Comment on above: Performed By: #### C BC ####[facility] Uyqqlzyvfm9360 [place] [phone]. Flaco Otero Basophils/100 WBC (Bld) 0.4 % Normal 0.2-2.0 [facility] Comment on above: Performed By: #### C BC ####[facility] Afclimvcum5545 [place] [phone]. Flaco Otero EO # 0.1 103/ul Normal 0.0-0.7 [facility] Comment on above: Performed By: #### C BC ####[facility] [address]afemcqwlh[address] [place], [place] [phone]. Flaco Otero Eosinophils/100 WBC (Bld) 1.0 % Normal 0.9-7.0 [facility] Comment on above: Performed By: #### C BC ####[facility] Obnfdpsmqm95[address] [place], [place] [address]Dr. Flaco Otero Erythrocyte distribution width (RBC) [Ratio] 15.9 % Critically high 11.0-15.0 [facility] Comment on above: Performed By: #### C BC ####[facility] Kehecktqzq4[address] [place], [place] [address]Dr. Flaco Otero Hematocrit (Bld) [Volume fraction] 35.9 % Critically low 42.0-54.0 [facility] Comment on above: Performed By: #### C BC ####[facility] Yldrayktyy2261 [place] [phone]. Flaco Otero Hemoglobin (Bld) [Mass/Vol] 11.9 g/dL Critically low 14.0-18.0 [facility] Comment on above: Performed By: #### C BC ####[facility] Ovhmdefdhp6452 [place] [phone]. Flaco Otero IG # 0.03 10e3/ul Normal 0.00-0.03 [facility] Comment on above: Performed By: #### C BC ####[facility] Laprhhblvj[address] [place], [place] [address]Dr. Flaco Otero IG % 0.4 % Normal 0.0-0.5 [facility] Comment on above: Performed By: #### C BC ####[facility] Kmesshlbvl6085 [place], [place] [address]Nh. Flaco Otero LYMPH # 1.8 103/ul Normal 1.2-3.8 [facility] Comment on above: Performed By: #### C BC ####[facility] Fvjzxnzttb1204 [place], [place] [address]Fi. Flaco Otero Lymphocytes/100 WBC (Bld) 22.2 % Normal 20.5-60.0 [facility] Comment on above: Performed By: #### C BC ####[facility] Hsygqwsrqz1899 [place] [phone]. Flaco Otero MANUAL DIFF REQ NO Normal [facility] Comment on above: Performed By: #### C BC ####[facility] Hwtpguocki9377 [place] [phone]. Flaco Otero MCH (RBC) [Entitic mass] 28.8 pg Normal 25.9-34.0 [facility] Comment on above: Performed By: #### C BC ####[facility] Hzykgjlnvo7693 [place] [phone]. Flaco Otero MCHC (RBC) [Mass/Vol] 33.1 g/dL Normal 29.9-35.2 [facility] Comment on above: Performed By: #### C BC ####[facility] Rlqozdrckj0369 [place] [phone]. Flaco Otero MCV (RBC) [Entitic vol] 86.9 fL Normal 80.0-94.0 [facility] Comment on above: Performed By: #### C BC ####[facility] Rgucpewxbd7313 [place] [phone]. Flaco Otero MONO # 1.0 103/ul Critically high 0.3-0.8 The [facility] Comment on above: Performed By: #### C BC ####[facility] Angvbscrgx8975 [place] [phone]. Flaco Otero Monocytes/100 WBC (Bld) 13.0 % Critically high 1.7-12.0 [facility] Comment on above: Performed By: #### C BC ####[facility] Zfzdnndtdj3588 [place] [phone]. Flaco Otero NEUT # 5.0 103/ul Normal 1.4-6.5 [facility] Comment on above: Performed By: #### C BC ####[facility] Ltugjfsvmd8670 [place] [phone]. Flaco Otero Neutrophils/100 WBC (Bld) 63.0 % Normal 43.0-75.0 [facility] Comment on above: Performed By: #### C BC ####[facility] Qgkitinzvi1855 [place] [phone]. Flaco Otero Platelet mean volume (Bld) [Entitic vol] 9.5 fL Normal 9.5-13.5 [facility] Comment on above: Performed By: #### C BC ####[facility] Slfqlcpspq1664 [place] [phone]. Flaco Otero PLT 335 103/ul Normal 150-450 [facility] Comment on above: Performed By: #### C BC ####[facility] Wmtuuuhxsh5921 [place] [phone]. Flaco Otero RBC 4.13 106/ul Critically low 4.70-6.10 [facility] Comment on above: Performed By: #### C BC ####[facility] Dnwtmrqynj3980 [place] [phone]. Flaco Otero WBC 7.9 103/ul Normal 4.0-11.0 [facility] Comment on above: Performed By: #### C BC ####[facility] Ydvotpxtxv3897 [place] [phone]. Flaco Otero ER URINE PROFILEon 3 Bilirubin Ql (U) Negative Normal NEGATIVE The [facility] Comment on above: Performed By: #### E RUR ####[facility] Qdshhojdbq5595 [place] [phone]. Flaco Otero Clarity (U) CLEAR Normal CLEAR [facility] Comment on above: Performed By: #### E RUR ####[facility] Qqrkpkcxjt[address] [place], [place] [address]Dr. Flaco Otero Color (U) LT. YELLOW Normal YELLOW [facility] Comment on above: Performed By: #### E RUR ####[facility] Zhaxxwxvii7[address] [place], [place] [address]Dr. Flaco Otero ERUAHD A micrscopic examination will be performed if indicated. Normal [facility] Comment on above: Performed By: #### E RUR ####[facility] Lloulmpvtl[address] [place], [place] [address]Dr. Flaco Branden Glucose Ql (U) Negative Normal NEGATIVE [facility] Comment on above: Performed By: #### E RUR ####[facility] Zmcuicfjxp[address] [place], [place] [address]Dr. Flaco Otero Hemoglobin Ql (U) Negative Normal NEGATIVE [facility] Comment on above: Performed By: #### E RUR ####[facility] Gvzcctgjhd7[address] [place], [place] [address]Dr. Flaco Otero Ketones Ql (U) Negative Normal NEGATIVE The [facility] Comment on above: Performed By: #### E RUR ####[facility] Qzurvingxq4254[address] [place], [place] [address]Dr. Flaco Otero LEUKOCYTES Negative Normal NEGATIVE [facility] Comment on above: Performed By: #### E RUR ####[facility] Dxrqveirtj1139[address] [place], [place] [address]Dr. Flaco Otero Nitrite Ql (U) Negative Normal NEGATIVE [facility] Comment on above: Performed By: #### E RUR ####[facility] Jsoozbnbbh9[address] [place], [place] [address]Dr. Flaco Otero pH (U) 5.5 [pH] Normal 5-9 [facility] Comment on above: Performed By: #### E RUR ####[facility] Zbcfnhiviu227[address] [place], [place] [address]Dr. Flaco Otero SPEC GRAVITY <=1.005 Abnormal 1.005-<=1.02 5 [facility] Comment on above: Performed By: #### E RUR ####[facility] Easpoxsger74[address] [place], [place] [address]Dr. Flaco Otero UA PROTEIN Negative Normal NEGATIVE/ TRACE [facility] Comment on above: Performed By: #### E RUR ####[facility] Gmsczwgyjf65[address] [place], [place] [address]Dr. Flaco Otero UR MICRO IND NOT INDICATED Normal [facility] Comment on above: Performed By: #### E RUR ####[facility] Enorpgalhe7023 [place] [address]Dr. Flaco Otero Urobilinogen Qn (U) 0.2 {Tuan'U}/dL Normal 0.2 - 1. 0 [facility] Comment on above: Performed By: #### E RUR ####[facility] Kwgwzcwcqv[address] [place], [place] [address]Dr. Flaco Otero PROF CHEM 8 (BAS METB)on Anion gap [Moles/Vol] 13.6 mmol/L Normal [facility] Comment on above: Performed By: #### B MP ####[facility] Pxkdopjxvi[address] [place], [place] [address]Dr. Flaco Otero Calcium [Mass/Vol] 9.2 mg/dL Normal 8.5-10.1 [facility] Comment on above: Performed By: #### B MP ####[facility] Uzrqqwgrhi[address] [place], [place] [address]Dr. Flaco Otero Chloride [Moles/Vol] 104 mmol/L Normal 98-107 [facility] Comment on above: Performed By: #### B MP ####[facility] Qzwuiejfrq1317 [place] [address]Dr. Flaco Otero CO2 [Moles/Vol] 24.9 mmol/L Normal 21.0-32.[address] [facility] Comment on above: Performed By: #### B MP ####[facility] Erzvhhvpca4550 [place] [address]Dr. Flaco Otero Creatinine [Mass/Vol] 1.59 mg/dL Critically high 0.70-1.30 [facility] Comment on above: Performed By: #### B MP ####[facility] Lquuetmvun9098 [place] [phone]. Flaco Otero EGFR-AF EGYPTIAN 52 mL/min/1.73m2 Critically low >=60 [facility] Comment on above: Performed By: #### B MP ####[facility] Ypmifymlef1757 [place] [address]Dr. Flaco Otero EGFR-NON AF EGYPTIAN 43 mL/min/1.73m2 Critically low >=60 [facility] Comment on above: Performed By: #### B MP ####[facility] Aoevsptbta0504 [place] [address]Dr. Flaco Otero Glucose [Mass/Vol] 119 mg/dL Critically high 74-106 [facility] Comment on above: Performed By: #### B MP ####[facility] Agbvntniby6858 [place] [address]Dr. Flaco Otero Potassium [Moles/Vol] 3.5 mmol/L Normal 3.5-5.1 [facility] Comment on above: Performed By: #### B MP ####[facility] Gzuahmrwxz0048 [place] [address]Dr. Flaco Otero Sodium [Moles/Vol] 139 mmol/L Normal 136-145 [facility] Comment on above: Performed By: #### B MP ####[facility] Naxqifaisg5383 [place] [address]Dr. Flaco Otero Urea nitrogen [Mass/Vol] 12.0 mg/dL Normal 7.0-18.0 [facility] Comment on above: Performed By: #### B MP ####[facility] Ilgfkqpdlv2655 [place] [address]Dr. Flaco Otero Urea nitrogen/Creatinine [Mass ratio] 7.5 mg/mg Normal [facility] Comment on above: Performed By: #### B MP ####[facility] Pkiwxrqukc5762 [place] [address]Dr. Flaco Otero CBC AUTO DIFFon 11-12-2022 BASO # 0.0 103/ul Normal 0.0-0.1 [facility] Comment on above: Performed By: #### C BC ####[facility] Hpadiummso9700 [place] [phone]. Flaco Otero Basophils/100 WBC (Bld) 0.4 % Normal 0.2-2.0 [facility] Comment on above: Performed By: #### C BC ####[facility] Lqcctacrjh2469 [place] [phone]. Flaco Otero EO # 0.1 103/ul Normal 0.0-0.7 [facility] Comment on above: Performed By: #### C BC ####[facility] Hftgvketip[address] [place], [place] [address]Dr. Flaco Otero Eosinophils/100 WBC (Bld) 0.6 % Critically low 0.9-7.0 [facility] Comment on above: Performed By: #### C BC ####[facility] Yzzfxayqtr[address] [place], [place] [address]Dr. Flaco Otero Erythrocyte distribution width (RBC) [Ratio] 15.9 % Critically high 11.0-15.0 [facility] Comment on above: Performed By: #### C BC ####[facility] Jjjzxzhbwj[address] [place], [place] [address]Dr. Flaco Otero Hematocrit (Bld) [Volume fraction] 36.0 % Critically low 42.0-54.0 [facility] Comment on above: Performed By: #### C BC ####[facility] Yvvgfwtofr[address] [place], [place] [address]Dr. Flaco Otero Hemoglobin (Bld) [Mass/Vol] 11.9 g/dL Critically low 14.0-18.0 [facility] Comment on above: Performed By: #### C BC ####[facility] Pejvfiklek97[address] [place], [place] [address]Dr. Flaco Otero IG # 0.03 10e3/ul Normal 0.00-0.03 [facility] Comment on above: Performed By: #### C BC ####[facility] Mbkhxzcrpc7[address] [place], [place] [address]Dr. Flaco Otero IG % 0.3 % Normal 0.0-0.5 [facility] Comment on above: Performed By: #### C BC ####[facility] Ppejjljorb9673 [place], [place] [address]Wx. Flaco Otero LYMPH # 1.9 103/ul Normal 1.2-3.8 [facility] Comment on above: Performed By: #### C BC ####[facility] Fknrqmahtv8600 [place], [place] [address]Bm. Flaco Otero Lymphocytes/100 WBC (Bld) 19.3 % Critically low 20.5-60.0 [facility] Comment on above: Performed By: #### C BC ####[facility] Jrmnxphrhx6067 [place] [phone]. Flaco Branden MANUAL DIFF REQ NO Normal [facility] Comment on above: Performed By: #### C BC ####[facility] Qgqzcsbgve7077 [place] [phone]. Flaco Otero MCH (RBC) [Entitic mass] 28.6 pg Normal 25.9-34.0 [facility] Comment on above: Performed By: #### C BC ####[facility] Ksddsgeewz2707 [place] [phone]. Flaco Otero MCHC (RBC) [Mass/Vol] 33.1 g/dL Normal 29.9-35.2 [facility] Comment on above: Performed By: #### C BC ####[facility] Wbwietmqcp8535 [place] [phone]. Flaco Otero MCV (RBC) [Entitic vol] 86.5 fL Normal 80.0-94.0 [facility] Comment on above: Performed By: #### C BC ####[facility] Tsuesmguzi7160 [place] [phone]. Flaco Otero MONO # 1.2 103/ul Critically high 0.3-0.8 [facility] Comment on above: Performed By: #### C BC ####[facility] Dfkqfaceyd8493 [place] [phone]. Flaco Otero Monocytes/100 WBC (Bld) 12.5 % Critically high 1.7-12.0 [facility] Comment on above: Performed By: #### C BC ####[facility] Uyhyjyhlfw8000 [place] [phone]. Flaco Otero NEUT # 6.5 103/ul Normal 1.4-6.5 [facility] Comment on above: Performed By: #### C BC ####[facility] Tigrzlxmot5443 [place] [phone]. Flaco Otero Neutrophils/100 WBC (Bld) 66.9 % Normal 43.0-75.0 [facility] Comment on above: Performed By: #### C BC ####[facility] Perkxmjfbf9336 [place] [phone]. Flaco Otero Platelet mean volume (Bld) [Entitic vol] 9.6 fL Normal 9.5-13.5 [facility] Comment on above: Performed By: #### C BC ####[facility] Buciomyapu[address] [place] [address]Dr. Flaco Otero PLT 345 103/ul Normal 150-450 [facility] Comment on above: Performed By: #### C BC ####[facility] Shacqdmjga8886 [place] [phone]. Flaco Otero RBC 4.16 106/ul Critically low 4.70-6.10 [facility] Comment on above: Performed By: #### C BC ####[facility] Xmkiepkywv2824 [place] [phone]. Flaco Otero WBC 9.7 103/ul Normal 4.0-11.0 [facility] Comment on above: Performed By: #### C BC ####[facility] Viiyvijpzt[address] [place], [place] [address]Dr. Flaco Otero ECHOCARDIO M/2D COMPLETEon 0 11-12-2022 ECHOCARDIO M/2D COMPLETE Normal [facility] MRA NECK WO CONon 11-12-2022 MRA NECK WO CON Normal [facility] MRI BRAIN WO CONon MRI BRAIN WO CON Normal The [facility] PROF CHEM 8 (BAS METB)on Anion gap [Moles/Vol] 12.7 mmol/L Normal Th [facility] Comment on above: Performed By: #### B MP ####[facility] Wfnqikmywp3391 [place] [phone]. Flaco Otero Calcium [Mass/Vol] 8.8 mg/dL Normal 8.5-10.1 [facility] Comment on above: Performed By: #### B MP ####[facility] Aifyqxbaqu2094 [place] [phone]. Flaco Otero Chloride [Moles/Vol] 102 mmol/L Normal 98-107 [facility] Comment on above: Performed By: #### B MP ####[facility] Sgqqbgilml9091 [place] [phone]. Flaco Otero CO2 [Moles/Vol] 24.9 mmol/L Normal 21.0-32.0 [facility] Comment on above: Performed By: #### B MP ####[facility] Fwezmmojpl5920 [place] [address]Dr. Flaco Otero Creatinine [Mass/Vol] 1.58 mg/dL Critically high 0.70-1.30 [facility] Comment on above: Performed By: #### B MP ####[facility] Bjrfkdfaka6550 [place] [address]Dr. Flaco Branden EGFR-AF EGYPTIAN 53 mL/min/1.73m2 Critically low >=60 [facility] Comment on above: Performed By: #### B MP ####[facility] Pwberpqzee5133 [place] [address]Dr. Flaco Barnden EGFR-NON AF EGYPTIAN 43 mL/min/1.73m2 Critically low >=60 [facility] Comment on above: Performed By: #### B MP ####[facility] Mvoesduvec4511 [place] [phone]. Flaco Otero Glucose [Mass/Vol] 107 mg/dL Critically high 74-106 [facility] Comment on above: Performed By: #### B MP ####[facility] Vasuplkehf0732 [place] [phone]. Flaco Otero Potassium [Moles/Vol] 3.6 mmol/L Normal 3.5-5.1 [facility] Comment on above: Performed By: #### B MP ####[facility] Vcblxsgplt2033 [place] [address]Dr. Flaco Otero Sodium [Moles/Vol] 136 mmol/L Normal 136-145 [facility] Comment on above: Performed By: #### B MP ####[facility] Uyffheylfe[address] [place], [place] [address]Dr. Flaco Otero Urea nitrogen [Mass/Vol] 10.0 mg/dL Normal 7.0-18.0 [facility] Comment on above: Performed By: #### B MP ####[facility] Gojojscpgp12[address] [place], [place] [address]Dr. Flaco Otero Urea nitrogen/Creatinine [Mass ratio] 6.3 mg/mg Normal [facility] Comment on above: Performed By: #### B MP ####[facility] Fuzflzgoce17[address] [place], [place] [address]Dr. Flaco Branden CBC AUTO DIFFon 11-11-2022 BASO # 0.0 103/ul Normal 0.0-0.1 [facility] Comment on above: Performed By: #### C BC ####[facility] Ftbmzucnwc53[address] [place], [place] [address]Dr. Flaco Branden Basophils/100 WBC (Bld) 0.4 % Normal 0.2-2.0 [facility] Comment on above: Performed By: #### C BC ####[facility] Mkcqhcdmra20[address] [place], [place] [address]Dr. Flaco Otero EO # 0.1 103/ul Normal 0.0-0.7 [facility] Comment on above: Performed By: #### C BC ####[facility] Brjdkdkcvz2290[address] [place], [place] [address]Dr. Flaco Branden Eosinophils/100 WBC (Bld) 0.7 % Critically low 0.9-7.0 [facility] Comment on above: Performed By: #### C BC ####[facility] Dpejtfurom537[address] [place], [place] [address]Dr. Flaco Branden Erythrocyte distribution width (RBC) [Ratio] 16.3 % Critically high 11.0-15.0 [facility] Comment on above: Performed By: #### C BC ####[facility] Gkgtbrmkdc3004 [place] [address]DrJeramie Otero Hematocrit (Bld) [Volume fraction] 37.4 % Critically low 42.0-54.0 [facility] Comment on above: Performed By: #### C BC ####[facility] Mjtdsvykwr7173 [place] [address]DrJeramie Otero Hemoglobin (Bld) [Mass/Vol] 12.5 g/dL Critically low 14.0-18.0 [facility] Comment on above: Performed By: #### C BC ####[facility] Hvazsysboz24[address] [place], [place] [address]DrJeramie Otero IG # 0.03 10e3/ul Normal 0.00-0.03 [facility] Comment on above: Performed By: #### C BC ####[facility] Sxohxnvaej4[address] [place], [place] [address]DrJeramie Otero IG % 0.3 % Normal 0.0-0.5 [facility] Comment on above: Performed By: #### C BC ####[facility] Uuztcyohyi68[address] [place], [place] [address]DrJeramie Otero LYMPH # 2.0 103/ul Normal 1.2-3.8 [facility] Comment on above: Performed By: #### C BC ####[facility] Mbuoutfuay[address] [place], [place] [address]DrJeramie Otero Lymphocytes/100 WBC (Bld) 18.8 % Critically low 20.5-60.0 [facility] Comment on above: Performed By: #### C BC ####[facility] Dopjqnkoxp5[address] [place], [place] [address]DrJeramie Otero MANUAL DIFF REQ NO Normal [facility] Comment on above: Performed By: #### C BC ####[facility] Gwcxiklees3821 [place] [address]DrJeramie Otero MCH (RBC) [Entitic mass] 29.1 pg Normal 25.9-34.0 [facility] Comment on above: Performed By: #### C BC ####[facility] Rfaaqiqqnq3145 [place] [address]DrJeramie Otero MCHC (RBC) [Mass/Vol] 33.4 g/dL Normal 29.9-35.2 [facility] Comment on above: Performed By: #### C BC ####[facility] Wmceamyfwg9[address] [place], [place] [address]DrJeramie Otero MCV (RBC) [Entitic vol] 87.2 fL Normal 80.0-94.0 [facility] Comment on above: Performed By: #### C BC ####[facility] Zgojqobink43[address] [place], [place] [address]DrJeramie Otero MONO # 1.2 103/ul Critically high 0.3-0.8 [facility] Comment on above: Performed By: #### C BC ####[facility] Teiqjwytmo03[address] [place], [place] [address]DrJeramie Otero Monocytes/100 WBC (Bld) 11.2 % Normal 1.7-12.0 [facility] Comment on above: Performed By: #### C BC ####[facility] Ypmddccadt9[address] [place], [place] [address]DrJeramie Otero NEUT # 7.1 103/ul Critically high 1.4-6.5 [facility] Comment on above: Performed By: #### C BC ####[facility] Xcwclxguwv[address] [place], [place] [address]DrJeramie Otero Neutrophils/100 WBC (Bld) 68.6 % Normal 43.0-75.0 [facility] Comment on above: Performed By: #### C BC ####[facility] Glqbiekeij35[address] [place], [place] [address]DrJeramie Otero Platelet mean volume (Bld) [Entitic vol] 9.5 fL Normal 9.5-13.5 [facility] Comment on above: Performed By: #### C BC ####[facility] F[address]xaukdfnk[address] [place], [place] [address]DrJeramie Otero PLT 351 103/ul Normal 150-450 [facility] Comment on above: Performed By: #### C BC ####[facility] Phhoqntubl2107 [place], [place] [address]Ok. Flaco Otero RBC 4.29 106/ul Critically low 4.70-6.10 [facility] Comment on above: Performed By: #### C BC ####[facility] Efdzfxypby1514 [place], [place] [address]Wu. Flaco Otero WBC 10.4 103/ul Normal 4.0-11.0 [facility] Comment on above: Performed By: #### C BC ####[facility] Wftviwlruk8801 [place], [place] [address]Pm. Flaco Otero CT HEAD WO CONon 11-11-2022 CT HEAD WO CON Normal [facility] Covid-19 PCR (CVDTB)on 10-29 SARS-CoV-2 (COVID-19) RNA MARCO ANTONIO+probe Ql (Unsp spec) Not detected Normal NOT DETECTED [facility] Comment on above: Result Comment: When diagnostic testing is negative, the possibility of a false negative should be considered inthe context of a patient's recent exposures and the presence of clinical signs and symptomsconsistent with SARS-CoV-2.This test is not yet approved or cleared by the [place] FDA. When there are no FDA-approved or cleared tests available, and other criteria are met, FDA can make tests available under an emergency access mechanism called an Emergency Use Authorization (EUA). The EUA for this test is supported by the Director Of Psychology of Health and Human Service's declaration that circumstances exist to justify the emergency use of in vitro diagnostics for the detection and/or diagnosis of the virus that causes COVID-19. This EUA will remain in effect for the duration of the COVID-19 declaration justifying emergency of IVDs, unless it is terminated or revoked by the FDA (after which the test may no longer be used). Performed By: #### C VDTBH ####[facility] Rzuyqotqlj7772 [place], [place] [address]Bq. Flaco Otero LIPID PROFILEon 11-11-2022 CHOL-HDL RATIO NORM SEE BELOW Normal The [facility] Comment on above: Result Comment: 3.3 - 4.4 LOW RISK 4.4 - 7.1 AVERAGE RISK 7.1 - 11.0 MODERATE RISK >11.0 HIGH RISK Performed By: #### L IPID, TSH ####[facility] Clttxnzunq4194 [place], [place] [address]Xw. Flaco Otero Cholesterol [Mass/Vol] 176 mg/dL Normal <=200 Th [facility] Comment on above: Performed By: #### L IPID, TSH ####[facility] Vpqshgfqpd7292 [place], [place] [address]Fu. Purvilan Otero Cholesterol in HDL [Mass/Vol] 40 mg/dL Normal 40-60 [facility] Comment on above: Performed By: #### L IPID, TSH ####[facility] Krvmfzlefm0755 [place] [phone]. Purviedith Otero Cholesterol in LDL [Mass/Vol] 117.6 mg/dL Normal [facility] Comment on above: Performed By: #### L IPID, TSH ####[facility] Zbasyqcdoh4933 [place] [place] [id number]. Purvilan Otero Cholesterol.total/Chol esterol in HDL [Mass ratio] 4.4 {ratio} Normal [facility] Comment on above: Performed By: #### L IPID, TSH ####[facility] Mxtblgmkbi6[address] [place] [id number]. Purvilan Otero HDL NORMAL > or = 60 mg/dl - LO W CARDIOVASCULAR RISK <40 mg/dl - HIGH CARDIOVASCULAR RISK Normal [facility] Comment on above: Performed By: #### L IPID, TSH ####[facility] Uqcrukxfab8[address] [place] [phone]. Purvilan Otero LDL CALC NORMAL SEE BELOW Normal [facility] Comment on above: Result Comment: <100 mg/dl OPTIMAL 100 - 129 mg/dl NEAR OR ABOVE OPTIMAL 130 - 159 mg/dl BORDERLINE HIGH 160 - 189 mg/dl HIGH >190 mg/dl VERY HIGH Performed By: #### L IPID, TSH ####[facility] Nwqfiudqwv82[address] [place] [phone]. Yilan Otero Triglyceride [Mass/Vol] 92 mg/dL Normal <=150 [facility] Comment on above: Performed By: #### L IPID, TSH ####[facility] Xlutawxqhp9536 [place] [address]Dr. Flaco Otero VLDL CALC 18.4 mg/dL Normal [facility] Comment on above: Performed By: #### L IPID, TSH ####[facility] Vbiidnawid44[address] [place] [address]Dr. Flaco Otero PROF CHEM 8 (BAS METB)on Anion gap [Moles/Vol] 13.0 mmol/L Normal [facility] Comment on above: Performed By: #### B YEHUDA, HSTROPN ####[facility] Ynaeeiblge[address] [place] [address]Dr. Flaco Otero Calcium [Mass/Vol] 9.3 mg/dL Normal 8.5-10.1 [facility] Comment on above: Performed By: #### B YEHUDA, HSTROPN ####[facility] Ouvkqoooel[address] [place], [place] [address]Dr. Flaco Otero Chloride [Moles/Vol] 101 mmol/L Normal 98-107 [facility] Comment on above: Performed By: #### B YEHUDA, HSTROPN ####[facility] Nrdzuzch[address] [place], [place] [address]Dr. Flaco Otero CO2 [Moles/Vol] 27.7 mmol/L Normal 21.0-32.0 [facility] Comment on above: Performed By: #### B MP, HSTROPN ####[facility] Nlznfshelh7870 [place] [address]Dr. Flaco Otero Creatinine [Mass/Vol] 1.75 mg/dL Critically high 0.70-1.30 [facility] Comment on above: Performed By: #### B MP, HSTROPN ####[facility] Ujvhgmeaah[address] [place], [place] [address]Dr. Flaco Otero EGFR-AF EGYPTIAN 47 mL/min/1.73m2 Critically low >=60 [facility] Comment on above: Performed By: #### B YEHUDA, HSTROPN ####[facility] Ecdkiylhqk13[address] [place] [address]Dr. Flaco Otero EGFR-NON AF EGYPTIAN 39 mL/min/1.73m2 Critically low >=60 [facility] Comment on above: Performed By: #### B YEHUDA, HSTROPN ####[facility] Yxrrznrmki9146 [place] [address]Dr. Flaco Otero Glucose [Mass/Vol] 97 mg/dL Normal 74-106 [facility] Comment on above: Performed By: #### B YEHUDA, HSTROPN ####[facility] Yaprdquqdz9180 [place] [address]Dr. Flaco Otero Potassium [Moles/Vol] 3.7 mmol/L Normal 3.5-5.1 [facility] Comment on above: Performed By: #### Robyn BLACKMAN HSTROPN ####[facility] Ignyyxqxdw24[address] [place], [place] [address]Dr. Flaco Otero Sodium [Moles/Vol] 138 mmol/L Normal 136-145 [facility] Comment on above: Performed By: #### B YEHUDA HSTROPN ####[facility] Lbvdmtjdyt[address] [place], [place] [address]Dr. Flaco Otero Urea nitrogen [Mass/Vol] 13.0 mg/dL Normal 7.0-18.0 [facility] Comment on above: Performed By: #### B YEHUDA HSTROPN ####[facility] Swbwdyqzrz[address] [place], [place] [address]Dr. Flaco Branden Urea nitrogen/Creatinine [Mass ratio] 7.4 mg/mg Normal [facility] Comment on above: Performed By: #### B YEHUDA HSTROPN ####[facility] Mnnhgedtjn[address] [place], [place] [address]Dr. Flaco Branden PROTIMEon 11-11-2022 INR Coag (PPP) [Relative time] 1.05 {INR} Normal [facility] Comment on above: Performed By: #### P T, PTT ####[facility] Tobixnoohm14[address] [place] [address]Dr. Flaco Otero INR GUIDELINES SEE BELOW Normal [facility] Comment on above: Result Comment: RON RED INR: 2.0 - 3.0 CONDITIONS NOT LISTED BELOW 2.5 - 3.5 FOR PROSTHETIC HEART VALVE REPLACEMENT 2.5 - 3.5 RECURRENT THROMBOSIS Performed By: #### P T, PTT ####[facility] Alhszytgqd9941 [place] [address]Dr. Flaco Otero PT Coag (PPP) [Time] 11.1 s Normal 9.0-11.6 [facility] Comment on above: Performed By: #### P T, PTT ####[facility] Iglesjxzib348[address] [place], [place] [address]Dr. Flaco Otero PTTon 11-11-2022 aPTT Coag (Bld) [Time] 34.3 s Normal 22.3-36.2 [facility] Comment on above: Performed By: #### P T, PTT ####[facility] Fyyllrgbpf8[address] [place], [place] [address]Dr. Flaco Otero TROPONIN, HIGH SENSITIVITYon 11-11-2022 HSTROP 4.7 pg/mL Normal 4.0-76.1 [facility] Comment on above: Result Comment: CUT- OFF POINTS HAVE BEEN ESTABLISHED BASED ON THE FOURTH UNIVERSAL DEFINITIONS OF MYOCARDIALINFARCTION. THE UPPER REFERENCE LIMIT (URL) OF TROPONIN, DEFINED THE 99TH PERCENTILE OFcTnI DISTRIBUTION IN A REFERENCE POPULATION, HAS BEEN CONFIRMED THE DECISION THRESHOLDFOR SC DIAGNOSIS. Performed By: #### B MP, HSTROPN ####[facility] Qupczhblob8483 [place] [address]Dr. Flaco Otero TSHon 11-11-2022 TSH 0.829 uIU/mL Normal 0.358-3.740 [facility] Comment on above: Performed By: #### L IPID, TSH ####[facility] Chliquijte8357 [place] [address]Dr. Flaco Otero XR CHEST 1 Von 11-11-2022 XR CHEST 1 V Normal [facility] XR FOOT RT MIN 3 VIEWSon XR FOOT RT MIN 3 VIEWS Normal Th e [facility] XR FOOT RT MIN 3 VIEWSon XR FOOT RT MIN 3 VIEWS Normal Th e [facility] POINT OF CARE GLUCOSEon 08-29 Glucose [Mass/Vol] 87 mg/dL Normal 74-106 [facility] Comment on above: Performed By: #### P OCGLUC ####[facility] Eogwenmwpi6715 [place], [place] [address]Ia. Flaco Otero Glucose [Mass/Vol] 94 mg/dL Normal 74-106 [facility] Comment on above: Performed By: #### P OCGLUC ####[facility] Wwrvkyhzfi5541 [place], [place] [address]Hk. Flaco Otero XR FOOT RT 2Von 09-25-2022 XR FOOT RT 2V Normal [facility] XR FOOT RT MIN 3 VIEWSon XR FOOT RT MIN 3 VIEWS Normal [facility] XR WRIST RT MIN 3 Von 2021 XR WRIST RT MIN [address] [facility]on 08-29 SARS-CoV-2 (COVID-19) RNA MARCO ANTONIO+probe Ql (Unsp spec) Not detected Normal NOT DETECTED [facility] Comment on above: Result Comment: This test is not yet approved or cleared by the [place] FDA. When there are no FDA-approved or cleared tests available, and other criteria are met, FDA can make tests available under an emergency access mechanism called an Emergency Use Authorization (EUA). The EUA for this test is supported by the [place] of Health and Human Service's (HHS's) declaration that circumstances exist to justify the emergency use of in vitro diagnostics for the detection and/or diagnosis of the virus that causes COVID-19. This EUA will remain in effect (meaning this test can be used) for the duration of the COVID-19 declaration justifying emergency of IVDs, unless it is terminated or revoked by FDA (after which the test may no longer be used).When diagnostic testing is negative, the possibility of a false negative should be considered inthe context of a patient's recent exposures and the presence of clinical signs and symptomsconsistent with SARS-CoV-2. Performed By: #### C VDTB ####[facility] Bpxehwxyll3746 [place] [address]Dr. Flaco Otero PROF CHEM 8 (BAS METB)on Anion gap [Moles/Vol] 10.4 mmol/L Normal [facility] Comment on above: Performed By: #### B MP ####[facility] Hunlxmqpgt8[address] [place], [place] [address]Dr. Flaco Otero Calcium [Mass/Vol] 8.7 mg/dL Normal 8.5-10.1 [facility] Comment on above: Performed By: #### B MP ####[facility] Xqjjhcmutv[address] [place], [place] [address]Dr. Flaco Otero Chloride [Moles/Vol] 104 mmol/L Normal 98-107 [facility] Comment on above: Performed By: #### B MP ####[facility] Khbrgkjonx3775[address] [place], [place] [address]Dr. Flaco Otero CO2 [Moles/Vol] 27.2 mmol/L Normal 21.0-32.0 [facility] Comment on above: Performed By: #### B MP ####[facility] Dorfuhoomd[address] [place], [place] [address]Dr. Flaco Otero Creatinine [Mass/Vol] 2.02 mg/dL Critically high 0.70-1.30 [facility] Comment on above: Performed By: #### B MP ####[facility] Baqbgfxegb[address] [place], [place] [address]Dr. Flaco Otero EGFR-AF EGYPTIAN 40 mL/min/1.73m2 Critically low >=60 [facility] Comment on above: Performed By: #### B MP ####[facility] Uhdqxoibvr[address] [place], [place] [address]Dr. Flaco Otero EGFR-NON AF EGYPTIAN 33 mL/min/1.73m2 Critically low >=60 [facility] Comment on above: Performed By: #### B MP ####[facility] Dipldeoakz[address] [place], [place] [address]Dr. Flaco Otero Glucose [Mass/Vol] 91 mg/dL Normal 74-106 [facility] Comment on above: Performed By: #### B MP ####[facility] Yxsuqmqkgl5912 [place] [address]Dr. Flaco Branden Potassium [Moles/Vol] 3.6 mmol/L Normal 3.5-5.1 [facility] Comment on above: Performed By: #### B MP ####[facility] Ithzgpgfin7[address] [place], [place] [address]Dr. Flaco Otero Sodium [Moles/Vol] 138 mmol/L Normal 136-145 [facility] Comment on above: Performed By: #### B MP ####[facility] Xcyoefkskz135[address] [place], [place] [address]Dr. Flaco Otero Urea nitrogen [Mass/Vol] 14.0 mg/dL Normal 7.0-18.0 [facility] Comment on above: Performed By: #### B MP ####[facility] Wcebyskczj12[address] [place], [place] [address]Dr. Flaco Otero Urea nitrogen/Creatinine [Mass ratio] 6.9 mg/mg Normal [facility] Comment on above: Performed By: #### B MP ####[facility] Brojwjltvy[address] [place], [place] [address]Dr. Flaco Otero CBC AUTO DIFFon 08-15-2022 BASO # 0.1 103/ul Normal 0.0-0.1 [facility] Comment on above: Performed By: #### C BC ####[facility] Ifaaeukhin8639[address] [place], [place] [address]Dr. Flaco Otero Basophils/100 WBC (Bld) 0.8 % Normal 0.2-2.0 [facility] Comment on above: Performed By: #### C BC ####[facility] Tqrqzubpkg[address] [place], [place] [address]Dr. Flaco Otero EO # 0.1 103/ul Normal 0.0-0.7 [facility] Comment on above: Performed By: #### C BC ####[facility] Vczjttqwnj232[address] [place], [place] [address]Dr. Flaco Otero Eosinophils/100 WBC (Bld) 1.4 % Normal 0.9-7.0 [facility] Comment on above: Performed By: #### C BC ####[facility] Nppuocqssj5[address] [place], [place] [address]Dr. Flaco Otero Erythrocyte distribution width (RBC) [Ratio] 13.6 % Normal 11.0-15.0 [facility] Comment on above: Performed By: #### C BC ####[facility] Yulieyaqqr8713[address] [place], [place] [address]Dr. Flaco Otero Hematocrit (Bld) [Volume fraction] 46.2 % Normal 42.0-54.0 [facility] Comment on above: Performed By: #### C BC ####[facility] Rqqgtmkrtk7620[address] [place], [place] [address]Dr. Flaco Otero Hemoglobin (Bld) [Mass/Vol] 15.2 g/dL Normal 14.0-18.0 [facility] Comment on above: Performed By: #### C BC ####[facility] Raoccdorqc86[address] [place], [place] [address]Dr. Flaco Otero IG # 0.02 10e3/ul Normal 0.00-0.03 [facility] Comment on above: Performed By: #### C BC ####[facility] Irkuhwhlkj1230[address] [place], [place] [address]Dr. Flaco Otero IG % 0.2 % Normal 0.0-0.5 [facility] Comment on above: Performed By: #### C BC ####[facility] Ofcbjlkjkv9875[address] [place], [place] [address]Dr. Flaco Otero LYMPH # 1.8 103/ul Normal 1.2-3.8 [facility] Comment on above: Performed By: #### C BC ####[facility] Rdhozytire1299[address] [place], [place] [address]Dr. Flaco Otero Lymphocytes/100 WBC (Bld) 19.2 % Critically low 20.5-60.0 [facility] Comment on above: Performed By: #### C BC ####[facility] Rfuuyyvyii5817[address] [place], [place] [address]Dr. Flaco Otero MANUAL DIFF REQ NO Normal [facility] Comment on above: Performed By: #### C BC ####[facility] Ugqojzucyd1073 [place] [address]Dr. Flaco Otero MCH (RBC) [Entitic mass] 28.6 pg Normal 25.9-34.0 [facility] Comment on above: Performed By: #### C BC ####[facility] Yavhwsfivh7594 [place] [address]Dr. Flaco Otero MCHC (RBC) [Mass/Vol] 32.9 g/dL Normal 29.9-35.2 [facility] Comment on above: Performed By: #### C BC ####[facility] Qxatzfyviy[address] [place], [place] [address]DrJeramie Otero MCV (RBC) [Entitic vol] 86.8 fL Normal 80.0-94.0 [facility] Comment on above: Performed By: #### C BC ####[facility] Lybvdmstpd[address] [place], [place] [address]DrJeramie Otero MONO # 0.8 103/ul Normal 0.3-0.8 [facility] Comment on above: Performed By: #### C BC ####[facility] Wvjbqhnume287[address] [place], [place] [address]DrJeramie Otero Monocytes/100 WBC (Bld) 8.7 % Normal 1.7-12.0 [facility] Comment on above: Performed By: #### C BC ####[facility] Sqfvtpnzyp9[address] [place], [place] [address]DrJeramie Otero NEUT # 6.5 103/ul Normal 1.4-6.5 [facility] Comment on above: Performed By: #### C BC ####[facility] Clwwfrfgsj7769[address] [place], [place] [address]DrJeramie Otero Neutrophils/100 WBC (Bld) 69.7 % Normal 43.0-75.0 [facility] Comment on above: Performed By: #### C BC ####[facility] Obrppdhidx[address] [place], [place] [address]DrJeramie Otero Platelet mean volume (Bld) [Entitic vol] 9.8 fL Normal 9.5-13.5 [facility] Comment on above: Performed By: #### C BC ####[facility] Ncsznohgju3360 [place] [address]Dr. Flaco Otero PLT 503 103/ul Critically high 150-450 [facility] Comment on above: Performed By: #### C BC ####[facility] Siywyshvbv4670 [place] [address]Dr. Flaco Otero RBC 5.32 106/ul Normal 4.70-6.10 [facility] Comment on above: Performed By: #### C BC ####[facility] Hecittxagx6[address] [place], [place] [address]Dr. Flaco Otero WBC 9.3 103/ul Normal 4.0-11.0 [facility] Comment on above: Performed By: #### C BC ####[facility] Ngzpuwkgtd[address] [place], [place] [address]Dr. Flaco Branden PROTIMEon 08-15-2022 INR Coag (PPP) [Relative time] 1.73 {INR} Normal [facility] Comment on above: Performed By: #### P TT, PT ####[facility] Biwdfgsgrw7786[address] [place], [place] [address]Dr. Flaco Otero INR GUIDELINES SEE BELOW Normal [facility] Comment on above: Result Comment: RON RED INR: 2.0 - 3.0 CONDITIONS NOT LISTED BELOW 2.5 - 3.5 FOR PROSTHETIC HEART VALVE REPLACEMENT 2.5 - 3.5 RECURRENT THROMBOSIS Performed By: #### P TT, PT ####[facility] Rtvhuhtpxs[address] [place], [place] [address]Dr. Flaco Branden PT Coag (PPP) [Time] 18.0 s Critically high 9.0-11.6 [facility] Comment on above: Performed By: #### P TT, PT ####[facility] Cioglhzcgr2418[address] [place], [place] [address]Dr. Falco Branden PTTon 08-15-2022 aPTT Coag (Bld) [Time] 34.8 s Normal 22.3-36.2 Th e [facility] Comment on above: Performed By: #### P TT, PT ####[facility] Nljlamesge7686[address] [place], [place] [address]Dr. Flaco Otero CBC AUTO DIFFon 08-02-2022 BASO # 0.0 103/ul Normal 0.0-0.1 [facility] Comment on above: Performed By: #### C BC ####[facility] Ncmjomquih[address] [place], [place] [address]DrJeramie Otero Basophils/100 WBC (Bld) 0.2 % Normal 0.2-2.0 [facility] Comment on above: Performed By: #### C BC ####[facility] Tmusiczbrq[address] [place], [place] [address]DrJeramie Otero EO # 0.1 103/ul Normal 0.0-0.7 [facility] Comment on above: Performed By: #### C BC ####[facility] Afudgiqtjg8423[address] [place], [place] [address]DrJeramie Otero Eosinophils/100 WBC (Bld) 1.2 % Normal 0.9-7.0 [facility] Comment on above: Performed By: #### C BC ####[facility] Uynpibhfjq78[address] [place], [place] [address]DrJeramie Otero Erythrocyte distribution width (RBC) [Ratio] 13.2 % Normal 11.0-15.0 [facility] Comment on above: Performed By: #### C BC ####[facility] Jrkvjkgrma0505[address] [place], [place] [address]Dr. Flaco Otero Hematocrit (Bld) [Volume fraction] 42.6 % Normal 42.0-54.0 [facility] Comment on above: Performed By: #### C BC ####[facility] Cpinamangz97[address] [place], [place] [address]DrJeramie Otero Hemoglobin (Bld) [Mass/Vol] 14.0 g/dL Normal 14.0-18.0 [facility] Comment on above: Performed By: #### C BC ####[facility] Rpxhftnsup65[address] [place], [place] [address]DrJeramie Otero IG # 0.05 10e3/ul Critically high 0.00-0.03 [facility] Comment on above: Performed By: #### C BC ####[facility] Rhoysoiecf2727 [place] [address]DrJeramie Otero IG % 0.5 % Normal 0.0-0.5 [facility] Comment on above: Performed By: #### C BC ####[facility] Qudtyqpgbh0774 [place] [address]DrJeramie Otero LYMPH # 1.5 103/ul Normal 1.2-3.8 [facility] Comment on above: Performed By: #### C BC ####[facility] Gxpouuoaau9677 [place] [address]DrJeramie Otero Lymphocytes/100 WBC (Bld) 13.5 % Critically low 20.5-60.0 [facility] Comment on above: Performed By: #### C BC ####[facility] Jdnrlltaqx24[address] [place], [place] [address]DrJeramie Otero MANUAL DIFF REQ NO Normal [facility] Comment on above: Performed By: #### C BC ####[facility] Wixkuxkxnv6955 [place] [address]DrJeramie Otero MCH (RBC) [Entitic mass] 29.0 pg Normal 25.9-34.0 [facility] Comment on above: Performed By: #### C BC ####[facility] Uewclwrlyw7631 [place] [address]DrJeramie Otero MCHC (RBC) [Mass/Vol] 32.9 g/dL Normal 29.9-35.2 [facility] Comment on above: Performed By: #### C BC ####[facility] Siquvfrbmm[address] [place], [place] [address]DrJeramie Otero MCV (RBC) [Entitic vol] 88.2 fL Normal 80.0-94.0 [facility] Comment on above: Performed By: #### C BC ####[facility] Phodeifwxm6754[address] [place], [place] [address]DrJeramie Otero MONO # 1.0 103/ul Critically high 0.3-0.8 [facility] Comment on above: Performed By: #### C BC ####[facility] Tuczfmftyr1728 [place] [address]Dr. Flaco Otero Monocytes/100 WBC (Bld) 8.8 % Normal 1.7-12.0 [facility] Comment on above: Performed By: #### C BC ####[facility] Twtojuayld2872 [place] [address]Dr. Flaco Otero NEUT # 8.4 103/ul Critically high 1.4-6.5 [facility] Comment on above: Performed By: #### C BC ####[facility] Hizmdcvpud7078 [place] [address]Dr. Flaco Otero Neutrophils/100 WBC (Bld) 75.8 % Critically high 43.0-75.0 [facility] Comment on above: Performed By: #### C BC ####[facility] Zdckrnzfav[address] [place], [place] [address]Dr. Flaco Otero Platelet mean volume (Bld) [Entitic vol] 10.2 fL Normal 9.5-13.5 [facility] Comment on above: Performed By: #### C BC ####[facility] Lsgyjyrazz[address] [place], [place] [address]Dr. Flaco Otero PLT 329 103/ul Normal 150-450 [facility] Comment on above: Performed By: #### C BC ####[facility] Qppzyjbhaa5[address] [place], [place] [address]Dr. Flaco Otero RBC 4.83 106/ul Normal 4.70-6.10 [facility] Comment on above: Performed By: #### C BC ####[facility] Ikhxtolwrz5411 [place] [id number]. Flaco Otero WBC 11.0 103/ul Normal 4.0-11.0 [facility] Comment on above: Performed By: #### C BC ####[facility] Lybxrgzaox[address] [place], [place] [address]DrJeramie Otero PROF 14(COMP METB)on 022 Albumin [Mass/Vol] 2.6 g/dL Critically low 3.4-5.0 [facility] Comment on above: Performed By: #### C MP ####[facility] Qkjoyyxwdi3989 [place] [address]Dr. Flaco Otero Albumin/Globulin [Mass ratio] 0.6 {ratio} Normal [facility] Comment on above: Performed By: #### C MP ####[facility] Sdtjaezmfm5319 [place] [address]Dr. Flaco Otero ALP [Catalytic activity/Vol] 58 U/L Normal 46-116 [facility] Comment on above: Performed By: #### C MP ####[facility] Fshackdmdr[address] [place], [place] [address]Dr. Flaco Otero ALT [Catalytic activity/Vol] 23 U/L Normal 16-63 [facility] Comment on above: Performed By: #### C MP ####[facility] Omvaquszxr56[address] [place], [place] [address]Dr. Flaco Otero Anion gap [Moles/Vol] 14.9 mmol/L Normal [facility] Comment on above: Performed By: #### C MP ####[facility] Xxanlhayrh7[address] [place], [place] [address]Dr. Flaco Otero AST [Catalytic activity/Vol] 23 U/L Normal 15-37 [facility] Comment on above: Performed By: #### C MP ####[facility] Axdqvoflsf[address] [place], [place] [address]Dr. Flaco Otero Bilirubin [Mass/Vol] 0.6 mg/dL Normal 0.2-1.0 [facility] Comment on above: Performed By: #### C MP ####[facility] Fkrprrwlin15[address] [place], [place] [address]Dr. Falco Otero Calcium [Mass/Vol] 8.8 mg/dL Normal 8.5-10.1 [facility] Comment on above: Performed By: #### C MP ####[facility] Accjhjditw[address] [place], [place] [address]Dr. Flaco Otero Chloride [Moles/Vol] 104 mmol/L Normal 98-107 [facility] Comment on above: Performed By: #### C MP ####[facility] Nqwbpwvfrc6172 [place] [address]Dr. Flaco Otero CO2 [Moles/Vol] 21.3 mmol/L Normal 21.0-32.0 [facility] Comment on above: Performed By: #### C MP ####[facility] Ythhzsctha0915 [place] [address]Dr. Flaco Otero Creatinine [Mass/Vol] 2.08 mg/dL Critically high 0.70-1.30 [facility] Comment on above: Performed By: #### C MP ####[facility] [address] [place], [place] [address]Dr. Flaco Otero EGFR-AF EGYPTIAN 38 mL/min/1.73m2 Critically low >=60 [facility] Comment on above: Performed By: #### C MP ####[facility] Tsynkjbbmy[address] [place], [place] [address]Dr. Flaco Otero EGFR-NON AF EGYPTIAN 32 mL/min/1.73m2 Critically low >=60 [facility] Comment on above: Performed By: #### C MP ####[facility] Qkgogdzyfb242[address] [place], [place] [address]Dr. Flaco Otero Globulin (S) [Mass/Vol] 4.1 g/dL Normal [facility] Comment on above: Performed By: #### C MP ####[facility] Oqbuligueh[address] [place] [address]Dr. Flaco Otero Glucose [Mass/Vol] 87 mg/dL Normal 74-106 [facility] Comment on above: Performed By: #### C MP ####[facility] Wgwzrojtjw[address] [place], [place] [address]Dr. Flaco Otero Potassium [Moles/Vol] 4.2 mmol/L Normal 3.5-5.1 [facility] Comment on above: Performed By: #### C MP ####[facility] Hhnldygcny13[address] [place], [place] [address]Dr. Flaco Otero Protein [Mass/Vol] 6.7 g/dL Normal 6.4-8.2 [facility] Comment on above: Performed By: #### C MP ####[facility] Mqawupvbzz378[address] [place], [place] [address]Dr. Flaco Otero Sodium [Moles/Vol] 136 mmol/L Normal 136-145 [facility] Comment on above: Performed By: #### C MP ####[facility] Qcluvoimuh378[address] [place], [place] [address]Dr. Flaco Otero Urea nitrogen [Mass/Vol] 32.0 mg/dL Critically high 7.0-18.0 The [facility] Comment on above: Performed By: #### C MP ####[facility] Dfdyrkafqy94[address] [place], [place] [address]Dr. Flaco Otero Urea nitrogen/Creatinine [Mass ratio] 15.4 mg/mg Normal [facility] Comment on above: Performed By: #### C MP ####[facility] Ihjjtybmse[address] [place], [place] [address]Dr. Flaco Otero CBC AUTO DIFFon 08-01-2022 BASO # 0.0 103/ul Normal 0.0-0.1 [facility] Comment on above: Performed By: #### C BC ####[facility] Yzfsgrgeal[address] [place], [place] [address]Dr. Flaco Otero Basophils/100 WBC (Bld) 0.1 % Critically low 0.2-2.0 The [facility] Comment on above: Performed By: #### C BC ####[facility] Jzumzcsspq[address] [place], [place] [address]Dr. Flaco Otero EO # 0.0 103/ul Normal 0.0-0.7 The [facility] Comment on above: Performed By: #### C BC ####[facility] Nnrgjmkzrr[address] [place], [place] [address]Dr. Flaco Otero Eosinophils/100 WBC (Bld) 0.3 % Critically low 0.9-7.0 The [facility] Comment on above: Performed By: #### C BC ####[facility] Nyrnvjrvjp6[address] [place], [place] [address]Dr. Flaco Otero Erythrocyte distribution width (RBC) [Ratio] 13.5 % Normal 11.0-15.0 The [facility] Comment on above: Performed By: #### C BC ####[facility] Flqpsjfiqm7[address] [place] [address]Dr. Flaco Otero Hematocrit (Bld) [Volume fraction] 42.0 % Normal 42.0-54.0 The [facility] Comment on above: Performed By: #### C BC ####[facility] Jsrorittne43[address] [place] [address]Dr. Purviedith Otero Hemoglobin (Bld) [Mass/Vol] 13.6 g/dL Critically low 14.0-18.0 The [facility] Comment on above: Performed By: #### C BC ####[facility] Mahglirllf[address] [place] [address]Dr. Flaco Otero IG # 0.04 10e3/ul Critically high 0.00-0.03 [facility] Comment on above: Performed By: #### C BC ####[facility] Vrjxnmbqky5[address] [place], [place] [address]Dr. Flaco Otero IG % 0.4 % Normal 0.0-0.5 [facility] Comment on above: Performed By: #### C BC ####[facility] Frrhhmojwt4727[address] [place], [place] [address]Dr. Flaco Otero LYMPH # 1.0 103/ul Critically low 1.2-3.8 The [facility] Comment on above: Performed By: #### C BC ####[facility] Vyscsxnefn9[address] [place], [place] [address]Dr. Flaco Otero Lymphocytes/100 WBC (Bld) 9.3 % Critically low 20.5-60.0 The [facility] Comment on above: Performed By: #### C BC ####[facility] Rlvipaqqfs[address] [place], [place] [address]Dr. Flaco Otero MANUAL DIFF REQ NO Normal [facility] Comment on above: Performed By: #### C BC ####[facility] Rnxdlngvwn8[address] [place], [place] [address]Dr. Flaco Otero MCH (RBC) [Entitic mass] 28.7 pg Normal 25.9-34.0 The [facility] Comment on above: Performed By: #### C BC ####[facility] Ehustvnmtb60[address] [place] [phone]. Flaco Otero MCHC (RBC) [Mass/Vol] 32.4 g/dL Normal 29.9-35.2 The [facility] Comment on above: Performed By: #### C BC ####[facility] Sthvggstwr3308 [place] [phone]. Flaco Otero MCV (RBC) [Entitic vol] 88.6 fL Normal 80.0-94.0 The [facility] Comment on above: Performed By: #### C BC ####[facility] Pvlfifzfiu10[address] [place] [address]Dr. Flaco Branden MONO # 1.2 103/ul Critically high 0.3-0.8 [facility] Comment on above: Performed By: #### C BC ####[facility] Ivvtnsflhv3628 [place] [address]Dr. Purviedith Otero Monocytes/100 WBC (Bld) 11.0 % Normal 1.7-12.0 The [facility] Comment on above: Performed By: #### C BC ####[facility] Nqaiodthma5[address] [place] [phone]. Flaco Otero NEUT # 8.4 103/ul Critically high 1.4-6.5 [facility] Comment on above: Performed By: #### C BC ####[facility] Qfjfjtttxs9568 [place] [phone]. Purviedith Otero Neutrophils/100 WBC (Bld) 78.9 % Critically high 43.0-75.0 The [facility] Comment on above: Performed By: #### C BC ####[facility] Utkhelgosf4550 [place] [phone]. Flaco Otero Platelet mean volume (Bld) [Entitic vol] 10.0 fL Normal 9.5-13.5 The [facility] Comment on above: Performed By: #### C BC ####[facility] Dlbjlablpu2687 [place] [phone]. Flaco Branden PLT 308 103/ul Normal 150-450 [facility] Comment on above: Performed By: #### C BC ####[facility] Outlnahswg09[address] [place] [address]Dr. Flaco Otero RBC 4.74 106/ul Normal 4.70-6.10 [facility] Comment on above: Performed By: #### C BC ####[facility] Qbxyxnylzf5364 [place] [address]Dr. Flaco Otero WBC 10.7 103/ul Normal 4.0-11.0 [facility] Comment on above: Performed By: #### C BC ####[facility] Bumorpohci[address] [place] [address]Dr. Flaco Otero PROF 14(COMP METB)on 022 Albumin [Mass/Vol] 2.6 g/dL Critically low 3.4-5.0 [facility] Comment on above: Performed By: #### C MP ####[facility] Fxyjrzeigq7249 [place] [address]Dr. Flaco Otero Albumin/Globulin [Mass ratio] 0.6 {ratio} Normal [facility] Comment on above: Performed By: #### C MP ####[facility] Pdjhyyngyu8575 [place] [address]Dr. Flaco Otero ALP [Catalytic activity/Vol] 58 U/L Normal 46-116 [facility] Comment on above: Performed By: #### C MP ####[facility] Xsxqbzyqkf8924 [place] [address]Dr. Flaco Otero ALT [Catalytic activity/Vol] 24 U/L Normal 16-63 [facility] Comment on above: Performed By: #### C MP ####[facility] Vrqvfyrgco5704 [place] [address]Dr. Flaco Otero Anion gap [Moles/Vol] 14.8 mmol/L Normal [facility] Comment on above: Performed By: #### C MP ####[facility] Hxgqdvxsic[address] [place], [place] [address]Dr. Flaco Otero AST [Catalytic activity/Vol] 33 U/L Normal 15-37 The [facility] Comment on above: Performed By: #### C MP ####[facility] Djilkqxrum9967 [place] [address]Dr. Flaco Otero Bilirubin [Mass/Vol] 1.0 mg/dL Normal 0.2-1.0 The [facility] Comment on above: Performed By: #### C MP ####[facility] Pzhjlrdxnd4593 [place] [address]Dr. Flaco Otero Calcium [Mass/Vol] 8.7 mg/dL Normal 8.5-10.1 [facility] Comment on above: Performed By: #### C MP ####[facility] Qsoztuepfb[address] [place], [place] [address]Dr. Flaco Otero Chloride [Moles/Vol] 104 mmol/L Normal 98-107 [facility] Comment on above: Performed By: #### C MP ####[facility] Nizoydovfp1827[address] [place], [place] [address]Dr. Flaco Otero CO2 [Moles/Vol] 21.2 mmol/L Normal 21.0-32.[address] [facility] Comment on above: Performed By: #### C MP ####[facility] Janhuxqdon[address] [place], [place] [address]Dr. Flaco Otero Creatinine [Mass/Vol] 1.90 mg/dL Critically high 0.70-1.30 [facility] Comment on above: Performed By: #### C MP ####[facility] Boxgjehfdn[address] [place], [place] [address]Dr. Flaco Otero EGFR-AF EGYPTIAN 43 mL/min/1.73m2 Critically low >=60 The [facility] Comment on above: Performed By: #### C MP ####[facility] Vzoiavpqlg28[address] [place], [place] [address]Dr. Flaco Branden EGFR-NON AF EGYPTIAN 35 mL/min/1.73m2 Critically low >=60 The [facility] Comment on above: Performed By: #### C MP ####[facility] Xwbopotfzx50[address] [place], [place] [address]Dr. Flaco Otero Globulin (S) [Mass/Vol] 4.0 g/dL Normal [facility] Comment on above: Performed By: #### C MP ####[facility] Hrklflpcex9951 [place] [address]Dr. Flaco Otero Glucose [Mass/Vol] 82 mg/dL Normal 74-106 [facility] Comment on above: Performed By: #### C MP ####[facility] Cjtxkxufbn7[address] [place], [place] [address]Dr. Flaco Otero Potassium [Moles/Vol] 4.0 mmol/L Normal 3.5-5.1 The [facility] Comment on above: Performed By: #### C MP ####[facility] Krahwswvbw[address] [place], [place] [address]Dr. Flaco Otero Protein [Mass/Vol] 6.6 g/dL Normal 6.4-8.2 [facility] Comment on above: Performed By: #### C MP ####[facility] Gqqhdgexrc[address] [place], [place] [address]Dr. Flaco Otero Sodium [Moles/Vol] 136 mmol/L Normal 136-145 [facility] Comment on above: Performed By: #### C MP ####[facility] Rvtqufgbvu[address] [place], [place] [address]Dr. Flaco Otero Urea nitrogen [Mass/Vol] 29.0 mg/dL Critically high 7.0-18.0 The [facility] Comment on above: Performed By: #### C MP ####[facility] Blqzxmkyql[address] [place], [place] [address]Dr. Flaco Otero Urea nitrogen/Creatinine [Mass ratio] 15.3 mg/mg Normal [facility] Comment on above: Performed By: #### C MP ####[facility] Bvfoevgado[address] [place], [place] [address]Dr. Flaco Branden CBC AUTO DIFFon 07-31-2022 BASO # 0.0 103/ul Normal 0.0-0.1 The [facility] Comment on above: Performed By: #### C BC ####[facility] Xyqriwmqjd1120 [place] [address]Dr. Flaco Otero Basophils/100 WBC (Bld) 0.2 % Normal 0.2-2.0 The [facility] Comment on above: Performed By: #### C BC ####[facility] Yndihozejt0210 [place] [address]Dr. Flaco Otero EO # 0.0 103/ul Normal 0.0-0.7 The [facility] Comment on above: Performed By: #### C BC ####[facility] Tjgpgwvtbn[address] [place], [place] [address]Dr. Flaco Otero Eosinophils/100 WBC (Bld) 0.1 % Critically low 0.9-7.0 The [facility] Comment on above: Performed By: #### C BC ####[facility] Fsliymfdpr[address] [place], [place] [address]Dr. Flaco Otero Erythrocyte distribution width (RBC) [Ratio] 13.7 % Normal 11.0-15.0 The [facility] Comment on above: Performed By: #### C BC ####[facility] Vsdktarqrh[address] [place], [place] [address]Dr. Flaco Otero Hematocrit (Bld) [Volume fraction] 40.1 % Critically low 42.0-54.0 The [facility] Comment on above: Performed By: #### C BC ####[facility] Cngsogpzqu[address] [place], [place] [address]Dr. Flaco Otero Hemoglobin (Bld) [Mass/Vol] 13.1 g/dL Critically low 14.0-18.0 The [facility] Comment on above: Performed By: #### C BC ####[facility] Ekfwayhrcw[address] [place], [place] [address]Dr. Flaco Otero IG # 0.03 10e3/ul Normal 0.00-0.03 [facility] Comment on above: Performed By: #### C BC ####[facility] Ywjcvlvjui[address] [place], [place] [address]Dr. Flaco Otero IG % 0.3 % Normal 0.0-0.5 The [facility] Comment on above: Performed By: #### C BC ####[facility] Ooyxqrtmte8026 [place] [phone]. Flaco Otero LYMPH # 1.7 103/ul Normal 1.2-3.8 The [facility] Comment on above: Performed By: #### C BC ####[facility] Xhpxdwbpjz4823 [place] [phone]. Flaco Otero Lymphocytes/100 WBC (Bld) 16.2 % Critically low 20.5-60.0 The [facility] Comment on above: Performed By: #### C BC ####[facility] Stbhoioexb4986 [place] [phone]. Flaco Otero MANUAL DIFF REQ NO Normal [facility] Comment on above: Performed By: #### C BC ####[facility] Rtjeobheah1227 [place] [phone]. Flaco Otero MCH (RBC) [Entitic mass] 29.2 pg Normal 25.9-34.0 The [facility] Comment on above: Performed By: #### C BC ####[facility] Fxbtgfboxw5422 [place] [phone]. Flaco Otero MCHC (RBC) [Mass/Vol] 32.7 g/dL Normal 29.9-35.2 The [facility] Comment on above: Performed By: #### C BC ####[facility] Netspxrsnj9317 [place] [phone]. Flaco Otero MCV (RBC) [Entitic vol] 89.3 fL Normal 80.0-94.0 The [facility] Comment on above: Performed By: #### C BC ####[facility] Gpabzmdbmk5775 [place] [phone]. lFaco Otero MONO # 1.2 103/ul Critically high 0.3-0.8 [facility] Comment on above: Performed By: #### C BC ####[facility] Sqrwcnzghk0445 [place] [phone]. Flaco Otero Monocytes/100 WBC (Bld) 11.1 % Normal 1.7-12.0 The [facility] Comment on above: Performed By: #### C BC ####[facility] Htfdasaelg4521 [place] [phone]. Flaco Otero NEUT # 7.7 103/ul Critically high 1.4-6.5 [facility] Comment on above: Performed By: #### C BC ####[facility] Szlvatnirf1103 [place] [phone]. Flaco Otero Neutrophils/100 WBC (Bld) 72.1 % Normal 43.0-75.0 [facility] Comment on above: Performed By: #### C BC ####[facility] Aajczhxhks7416 [place] [phone]. Flaco Otero Platelet mean volume (Bld) [Entitic vol] 9.9 fL Normal 9.5-13.5 [facility] Comment on above: Performed By: #### C BC ####[facility] Updrgapacr8630 [place] [phone]. Purviedith Branden PLT 263 103/ul Normal 150-450 [facility] Comment on above: Performed By: #### C BC ####[facility] Sscubjtzkr7794 [place] [phone]. Flaco Otero RBC 4.49 106/ul Critically low 4.70-6.10 [facility] Comment on above: Performed By: #### C BC ####[facility] Nghkshgaah6436 [place] [phone]. Flaco Otero WBC 10.7 103/ul Normal 4.0-11.0 [facility] Comment on above: Performed By: #### C BC ####[facility] Dezeuroila7382 [place] [phone]. Flaco Otero PROF 14(COMP METB)on 022 Albumin [Mass/Vol] 2.8 g/dL Critically low 3.4-5.0 [facility] Comment on above: Performed By: #### C MP ####[facility] Dkiajkitmb4957 [place] [phone]. Flaco Otero Albumin/Globulin [Mass ratio] 0.8 {ratio} Normal [facility] Comment on above: Performed By: #### C MP ####[facility] Envizhivny0218 [place] [phone]. Flaco Otero ALP [Catalytic activity/Vol] 59 U/L Normal 46-116 [facility] Comment on above: Performed By: #### C MP ####[facility] Bjpblbmbln3274 [place] [phone]. Flaco Otero ALT [Catalytic activity/Vol] 30 U/L Normal 16-63 [facility] Comment on above: Performed By: #### C MP ####[facility] Kkrxnmgvwn5563 [place] [phone]. Flaco Otero Anion gap [Moles/Vol] 14.8 mmol/L Normal Th e [facility] Comment on above: Performed By: #### C MP ####[facility] Uchwjwqsmh5904 [place] [address]Dr. Flaco Otero AST [Catalytic activity/Vol] 56 U/L Critically high 15-37 [facility] Comment on above: Performed By: #### C MP ####[facility] Tcbnsyuvsk[address] [place], [place] [address]Dr. Flaco Otero Bilirubin [Mass/Vol] 0.8 mg/dL Normal 0.2-1.0 [facility] Comment on above: Performed By: #### C MP ####[facility] Okwtaewvxj[address] [place], [place] [address]Dr. Flaco Otero Calcium [Mass/Vol] 9.0 mg/dL Normal 8.5-10.1 [facility] Comment on above: Performed By: #### C MP ####[facility] Xmqbjtssms4403 [place] [address]Dr. Flaco Otero Chloride [Moles/Vol] 106 mmol/L Normal 98-107 [facility] Comment on above: Performed By: #### C MP ####[facility] Xhhqaarbal4772 [place] [address]Dr. Flaco Otero CO2 [Moles/Vol] 24.7 mmol/L Normal 21.0-32.[address] [facility] Comment on above: Performed By: #### C MP ####[facility] Eyxmcmific9343 [place] [phone]. Flaco Otero Creatinine [Mass/Vol] 2.12 mg/dL Critically high 0.70-1.30 The [facility] Comment on above: Performed By: #### C MP ####[facility] Cmbuljadik8451 [place] [phone]. Flaco Otero EGFR-AF EGYPTIAN 38 mL/min/1.73m2 Critically low >=60 The [facility] Comment on above: Performed By: #### C MP ####[facility] Vxiftbuqcj4780 [place] [phone]. Flaco Otero EGFR-NON AF EGYPTIAN 31 mL/min/1.73m2 Critically low >=60 The [facility] Comment on above: Performed By: #### C MP ####[facility] Wcxsyyjghn8109 [place] [address]Dr. Flaco Otero Globulin (S) [Mass/Vol] 3.7 g/dL Normal [facility] Comment on above: Performed By: #### C MP ####[facility] Aneinwpeua3716 [place] [phone]. Flaco Otero Glucose [Mass/Vol] 79 mg/dL Normal 74-106 [facility] Comment on above: Performed By: #### C MP ####[facility] Ekquggbupc4837 [place] [address]Dr. Flaco Otero Potassium [Moles/Vol] 3.5 mmol/L Normal 3.5-5.1 The [facility] Comment on above: Performed By: #### C MP ####[facility] Yeqvqdgmnn0889 [place] [phone]. Flaco Otero Protein [Mass/Vol] 6.5 g/dL Normal 6.4-8.2 [facility] Comment on above: Performed By: #### C MP ####[facility] Cwgxdgjxuh4947 [place] [address]Dr. Flaco Otero Sodium [Moles/Vol] 142 mmol/L Normal 136-145 [facility] Comment on above: Performed By: #### C MP ####[facility] Vahrpxhqsc92[address] [place], [place] [address]Dr. Flaco Otero Urea nitrogen [Mass/Vol] 32.0 mg/dL Critically high 7.0-18.0 The [facility] Comment on above: Performed By: #### C MP ####[facility] Pubcjozcjf[address] [place], [place] [address]Dr. Flaco Otero Urea nitrogen/Creatinine [Mass ratio] 15.1 mg/mg Normal [facility] Comment on above: Performed By: #### C MP ####[facility] Egpqmeyjae8[address] [place], [place] [address]Dr. Flaco Otero T4on 07-31-2022 T4 [Mass/Vol] 7.10 ug/dL Normal 4.50-12.10 The [facility] Comment on above: Performed By: #### T SH, T4 ####[facility] Thndmhqexq6[address] [place], [place] [address]Dr. Flaco Otero TSHon 07-31-2022 TSH 0.871 uIU/mL Normal 0.358-3.740 The [facility] Comment on above: Performed By: #### T SH, T4 ####[facility] Yrwzxnlbrr[address] [place], [place] [address]Dr. Flaco Otero VIT B12 AND FOLATEon 022 Cobalamin (Vitamin B12) [Mass/Vol] 130.0 pg/mL Critically low 193.0-986.0 [facility] Comment on above: Performed By: #### B 12FOL ####[facility] Qapabdueqd6[address] [place], [place] [address]Dr. Flaco Otero FOLATE 6.20 ng/mL Critically low 8.60-58.90 The [facility] Comment on above: Performed By: #### B 12FOL ####[facility] Oukaxqkilj67[address] [place], [place] [address]Dr. Flaco Otero AMMONIAon 07-30-2022 Ammonia (P) [Mass/Vol] ug/dL Critically low 11-32 The [facility] Comment on above: Performed By: #### A MM ####[facility] Rippzpaxfr[address] [place], [place] [address]Dr. Flaco Otero CBC AUTO DIFFon 07-30-2022 BASO # 0.0 103/ul Normal 0.0-0.1 The [facility] Comment on above: Performed By: #### C BC ####[facility] Mfiwgdnbiv0481 [place] [address]Dr. Flaco Otero Basophils/100 WBC (Bld) 0.1 % Critically low 0.2-2.0 The [facility] Comment on above: Performed By: #### C BC ####[facility] Rmcjhiuoet0666 [place] [address]Dr. Flaco Otero EO # 0.0 103/ul Normal 0.0-0.7 [facility] Comment on above: Performed By: #### C BC ####[facility] Nyweoijblh9685 [place] [address]Dr. Flaco Otero Eosinophils/100 WBC (Bld) 0.1 % Critically low 0.9-7.0 [facility] Comment on above: Performed By: #### C BC ####[facility] Grbjevoxhr1123 [place] [address]Dr. Flaco Otero Erythrocyte distribution width (RBC) [Ratio] 13.5 % Normal 11.0-15.0 The [facility] Comment on above: Performed By: #### C BC ####[facility] Kkgjcecisa8210 [place] [address]Dr. Flaco Otero Hematocrit (Bld) [Volume fraction] 37.8 % Critically low 42.0-54.0 The [facility] Comment on above: Performed By: #### C BC ####[facility] Csewzwucfy1640 [place] [address]Dr. Flaco Otero Hemoglobin (Bld) [Mass/Vol] 12.8 g/dL Critically low 14.0-18.0 The [facility] Comment on above: Performed By: #### C BC ####[facility] Iljwmwfhqt9261 [place] [address]Dr. Flaco Branden IG # 0.06 10e3/ul Critically high 0.00-0.03 The [facility] Comment on above: Performed By: #### C BC ####[facility] Akvyvkwatf6456 [place] [phone]. Flaco Otero IG % 0.4 % Normal 0.0-0.5 [facility] [facility] Comment on above: Performed By: #### C BC ####[facility] Mcgcuxvxrj4[address] [place] [phone]. Flaco Otero LYMPH # 1.0 103/ul Critically low 1.2-3.8 The [facility] Comment on above: Performed By: #### C BC ####[facility] Ofrcpmjhdj3025 [place] [phone]. Flaco Otero Lymphocytes/100 WBC (Bld) 7.0 % Critically low 20.5-60.0 [facility] Comment on above: Performed By: #### C BC ####[facility] Lntyyurfaf1456 [place] [phone]. Flaco Otero MANUAL DIFF REQ NO Normal The [facility] Comment on above: Performed By: #### C BC ####[facility] Aptruboxyn7941 [place] [phone]. Flaco Otero MCH (RBC) [Entitic mass] 29.6 pg Normal 25.9-34.0 [facility] Comment on above: Performed By: #### C BC ####[facility] Hdzoxtrgph6836 [place] [phone]. Flaco Otero MCHC (RBC) [Mass/Vol] 33.9 g/dL Normal 29.9-35.2 [facility] Comment on above: Performed By: #### C BC ####[facility] Nknolopzmg1220 [place] [phone]. Flaco Otero MCV (RBC) [Entitic vol] 87.3 fL Normal 80.0-94.0 [facility] Comment on above: Performed By: #### C BC ####[facility] Ibulzkabzc8238 [place] [phone]. Flaco Otero MONO # 1.4 103/ul Critically high 0.3-0.8 The [facility] Comment on above: Performed By: #### C BC ####[facility] Wuigmxdvai7637 [place] [phone]. Flaco Otero Monocytes/100 WBC (Bld) 9.2 % Normal 1.7-12.0 [facility] Comment on above: Performed By: #### C BC ####[facility] Tjyoaaylcp0756 [place] [phone]. Flaco Otero NEUT # 12.3 103/ul Critically high 1.4-6.[address] [facility] Comment on above: Performed By: #### C BC ####[facility] Tdajaxfazm2707 [place] [phone]. Flaco Otero Neutrophils/100 WBC (Bld) 83.2 % Critically high 43.0-75.0 [facility] Comment on above: Performed By: #### C BC ####[facility] Nzqbavxmqd9051 [place] [phone]. Flaco Otero Platelet mean volume (Bld) [Entitic vol] 10.4 fL Normal 9.5-13.5 [facility] Comment on above: Performed By: #### C BC ####[facility] Afvsjwyubw7230 [place] [phone]. Flaco Otero PLT 266 103/ul Normal 150-450 [facility] Comment on above: Performed By: #### C BC ####[facility] Klmbiocnip5865 [place] [phone]. Flaco Otero RBC 4.33 106/ul Critically low 4.70-6.10 The [facility] Comment on above: Performed By: #### C BC ####[facility] Cvrq[address]opvl[address] [place], [place] [phone]. Flaco Otero WBC 14.8 103/ul Critically high 4.0-11.[address] [facility] Comment on above: Performed By: #### C BC ####[facility] Qzdtwozteq7053 [place] [phone]. Flaco Otero CRPon 07-30-2022 CRP 12.2 mg/dL Critically high <=1.0 The [facility] Comment on above: Performed By: #### C RP ####[facility] Ngirrtsinc0939 [place] [phone]. Flaco Otero CT FOOT RT WO CONon 07-30-[address] FOOT RT WO CON Normal The [facility] MRI BRAIN WO CONon 2 MRI BRAIN WO CON Normal The [facility] PROF 14(COMP METB)on 022 Albumin [Mass/Vol] 2.7 g/dL Critically low 3.4-5.0 [facility] Comment on above: Performed By: #### C MP ####[facility] Wfglicetgu6438 [place] [address]Dr. Flaco Otero Albumin/Globulin [Mass ratio] 0.7 {ratio} Normal [facility] Comment on above: Performed By: #### C MP ####[facility] Vnyuwpgqxp2637 [place] [address]Dr. Flaco Otero ALP [Catalytic activity/Vol] 61 U/L Normal 46-116 [facility] Comment on above: Performed By: #### C MP ####[facility] Zceesqvpuo90[address] [place], [place] [address]Dr. Flaco Otero ALT [Catalytic activity/Vol] 27 U/L Normal 16-63 [facility] Comment on above: Performed By: #### C MP ####[facility] Eltwbyczdn0701 [place] [address]Dr. Flaco Otero Anion gap [Moles/Vol] 16.1 mmol/L Normal [facility] Comment on above: Performed By: #### C MP ####[facility] Rfumpiquno9442 [place] [address]Dr. Flaco Otero AST [Catalytic activity/Vol] 39 U/L Critically high 15-37 [facility] Comment on above: Performed By: #### C MP ####[facility] Hywdoyvhqz1083 [place] [address]Dr. Flaco Otero Bilirubin [Mass/Vol] 1.1 mg/dL Critically high 0.2-1.0 [facility] Comment on above: Performed By: #### C MP ####[facility] Fiqqkfjbbp34[address] [place], [place] [address]Dr. Flaco Otero Calcium [Mass/Vol] 9.0 mg/dL Normal 8.5-10.1 [facility] Comment on above: Performed By: #### C MP ####[facility] Iuvujuxnto9790 [place] [address]Dr. Flaco Otero Chloride [Moles/Vol] 103 mmol/L Normal 98-107 [facility] Comment on above: Performed By: #### C MP ####[facility] Uurzqujitb8630 [place] [address]Dr. Flaco Otero CO2 [Moles/Vol] 21.8 mmol/L Normal 21.0-32.0 [facility] Comment on above: Performed By: #### C MP ####[facility] Uggnjkpruc[address] [place], [place] [address]Dr. Purviedith Branden Creatinine [Mass/Vol] 2.03 mg/dL Critically high 0.70-1.30 [facility] Comment on above: Performed By: #### C MP ####[facility] Syffcchxoo[address] [place], [place] [address]Dr. Flaco Branden EGFR-AF EGYPTIAN 39 mL/min/1.73m2 Critically low >=60 [facility] Comment on above: Performed By: #### C MP ####[facility] Womrlvxeax9[address] [place], [place] [address]Dr. Purviedith Branden EGFR-NON AF EGYPTIAN 33 mL/min/1.73m2 Critically low >=60 [facility] Comment on above: Performed By: #### C MP ####[facility] Rmmyczrweo3184 [place] [address]Dr. Flaco Otero Globulin (S) [Mass/Vol] 3.9 g/dL Normal [facility] Comment on above: Performed By: #### C MP ####[facility] Yrcmwtxluk[address] [place], [place] [address]Dr. Flaco Otero Glucose [Mass/Vol] 122 mg/dL Critically high 74-106 T [facility] Comment on above: Performed By: #### C MP ####[facility] Opbcqqqzea8224[address] [place], [place] [address]Dr. Flaco Otero Potassium [Moles/Vol] 2.9 mmol/L Critically low 3.5-5.1 [facility] Comment on above: Performed By: #### C MP ####[facility] Qjdqgjwvyk0719 [place] [address]Dr. Flaco Otero Protein [Mass/Vol] 6.6 g/dL Normal 6.4-8.2 The [facility] Comment on above: Performed By: #### C MP ####[facility] Ufedtirvpy[address] [place], [place] [address]Dr. Flaco Otero Sodium [Moles/Vol] 139 mmol/L Normal 136-145 [facility] Comment on above: Performed By: #### C MP ####[facility] Rszuvoopue9[address] [place], [place] [address]Dr. Flaco Otero Urea nitrogen [Mass/Vol] 30.0 mg/dL Critically high 7.0-18.0 [facility] Comment on above: Performed By: #### C MP ####[facility] Bbalcpknve52[address] [place], [place] [address]Dr. Flaco Otero Urea nitrogen/Creatinine [Mass ratio] 14.8 mg/mg Normal [facility] Comment on above: Performed By: #### C MP ####[facility] Fcrctbejcs[address] [place], [place] [address]Dr. Flaco Otero URIC ACID SERUMon 07-30-2022 Urate [Mass/Vol] 8.8 mg/dL Critically high 3.5-7.2 [facility] Comment on above: Performed By: #### U DAVID ####[facility] Damaryhrbn32[address] [place], [place] [address]Dr. Flaco Otero AMMONIAon 07-29-2022 Ammonia (P) [Mass/Vol] ug/dL Critically low 11-32 [facility] Comment on above: Performed By: #### A MM ####[facility] Ysayfpbzpm5484 [place] [address]Dr. Flaco Branden BLOOD GASES BTYon 07-29-2022 02 MODE ROOM AIR Normal [facility] Comment on above: Performed By: #### A BG ####[facility] Bjqepxqmby8453 [place] [address]Dr. Flaco Otero ALLENS TEST Positive Normal [facility] Comment on above: Performed By: #### A BG ####[facility] Wfzjnrikea3142 [place] [address]Dr. Flaco Otero Base excess Calc (Bld) [Moles/Vol] -3.7000 mmol/L Critically low -2.0-2.0 [facility] Comment on above: Performed By: #### A BG ####[facility] Wzuzjqmvvt65[address] [place], [place] [address]Dr. Flaco Otero BIPAP PRESSURE Normal The [facility] Comment on above: Performed By: #### A BG ####[facility] Efinivrbyc[address] [place], [place] [address]Dr. Flaco Otero CPAP Normal [facility] Comment on above: Performed By: #### A BG ####[facility] Tsslwrgkht8[address] [place], [place] [address]Dr. Flaco Otero FIO2 Normal [facility] Comment on above: Performed By: #### A BG ####[facility] Cwspulxdrf8[address] [place], [place] [address]Dr. Flaco Otero HCO3 (Bld) [Moles/Vol] 20.4 mmol/L Critically low 22.0-26. 0 [facility] Comment on above: Performed By: #### A BG ####[facility] Qzaznqfzch[address] [place], [place] [address]Dr. Flaco Otero LPM Normal [facility] Comment on above: Performed By: #### A BG ####[facility] Kxqnveysfu[address] [place], [place] [address]Dr. Flaco Otero MINUTE VOLUME Normal The [facility] Comment on above: Performed By: #### A BG ####[facility] Qzmauslxpz110[address] [place], [place] [address]Dr. Flaco Otero Oxygen (Bld) [Partial pressure] 73.0 mm[Hg] Critically low 80.0-100.0 [facility] Comment on above: Performed By: #### A BG ####[facility] Nbwkbsixli3423 [place] [address]Dr. Flaco Otero Oxygen saturation in Blood 95.5 % Normal 95.0-100.0 [facility] Comment on above: Performed By: #### A BG ####[facility] Sobvphfhzo9590 [place] [address]Dr. Flaco Otero PCO2 29.7 mmHg Critically low 35.0-45.0 [facility] Comment on above: Performed By: #### A BG ####[facility] Lsecgkcqgx7684 [place] [address]Dr. Flaco Otero PEEP [facility] Comment on above: Performed By: #### A BG ####[facility] Uovcgppodt[address] [place] [address]Dr. Flaco Otero pH (Bld) 7.445 [pH] Normal 7.350-7.450 [facility] Comment on above: Performed By: #### A BG ####[facility] Agqliunjkh[address] [place], [place] [address]Dr. Flaco Otero PIP [facility] Comment on above: Performed By: #### A BG ####[facility] Ubegmakfak[address] [place], [place] [address]Dr. Flaco Otero PS [facility] Comment on above: Performed By: #### A BG ####[facility] Pvrrdckgza6[address] [place], [place] [address]Dr. Flaco Otero PUNCTURE SITE RR Normal [facility] Comment on above: Performed By: #### A BG ####[facility] Bjadfbzdsl[address] [place], [place] [address]Dr. Flaco Otero RATE [facility] Comment on above: Performed By: #### A BG ####[facility] Jqfniswwog756[address] [place], [place] [address]Dr. Flaco Otero VENT MODE [facility] Comment on above: Performed By: #### A BG ####[facility] Targhiuqik[address] [place], [place] [address]Dr. Flaco Otero VT [facility] Comment on above: Performed By: #### A BG ####[facility] Pdhuyjjtzt7103 [place] [phone]. Flaco Otero CBC W MANUAL DIFFon 07-29-20 22 ATYPICAL LYMPH # Normal The [facility] Comment on above: Performed By: #### C CLEVELAND ####[facility] Dpliiepexo4495 [place] [phone]. Flaco Otero ATYPICAL LYMPH % Normal [facility] Comment on above: Performed By: #### C CLEVELAND ####[facility] Bodvfoimdo[address] [place], [place] [address]Dr. Flaco Otero BAND # 0.6 103/ul Critically high 0.0-0.3 [facility] Comment on above: Performed By: #### C CLEVELAND ####[facility] Klqnegwlma43[address] [place], [place] [address]Dr. Flaco Otero BAND % 4 % Normal 0-5 [facility] Comment on above: Performed By: #### C C[place]AND ####[facility] Fpnaiaxzkk37[address] [place], [place] [address]Dr. Flaco Otero BASOM # 0.00 103/ul Normal 0.00-0.10 [facility] Comment on above: Performed By: #### Corina GUTHRIE ####[facility] Jtzyqgpgdy[address] [place], [place] [address]Dr. Flaco Otero BASOM % 0.0 % Critically low 0.2-2.0 The [facility] Comment on above: Performed By: #### C C[place]AND ####[facility] Wxwbswksmy0[address] [place], [place] [address]Dr. Flaco Otero BLAST # Normal [facility] Comment on above: Performed By: #### C C[place]AND ####[facility] Jnruxlcgxz4632[address] [place], [place] [address]Dr. Flaco Otero BLAST % Normal [facility] Comment on above: Performed By: #### C C[place]AND ####[facility] Qllsqoasaw96[address] [place], [place] [address]Dr. Flaco Otero CORRECTED WBC Normal 4.0-11.0 [facility] Comment on above: Performed By: #### C C[place]AND ####[facility] Yvpeualplz8950 [place] [phone]. Flaco Otero EOS # 0.00 103/ul Normal 0.00-0.70 [facility] Comment on above: Performed By: #### C C[place]AND ####[facility] Ougjnvhjxm0545 [place] [phone]. Flaco Otero EOS% 0.0 % Critically low 0.9-7.0 [facility] Comment on above: Performed By: #### C CLEVELAND ####[facility] Ywezgrodgs0267 [place] [phone]. Flaco Otero HCT 43.8 % Normal 42.0-54.0 [facility] Comment on above: Performed By: #### C CLEVELAND ####[facility] Fdfmrgbcmq6908 [place] [phone]. Flaco Otero HGB 14.6 g/dl Normal 14.0-18.0 [facility] Comment on above: Performed By: #### Corina GUTHRIE ####[facility] Gtspfogdix8591 [place] [phone]. Flaco Otero LYMPHM # 0.72 103/ul Critically low 1.20-3.80 [facility] Comment on above: Performed By: #### Corina GUTHRIE ####[facility] Prpobsbsal9041 [place] [phone]. Flaco Otero LYMPHM% 5.0 % Critically low 20.5-60.0 [facility] Comment on above: Performed By: #### Corina GUTHRIE ####[facility] Szmbxyasgp1896 [place] [phone]. Flaco Otero MCH 29.6 pg Normal 25.9-34.0 [facility] Comment on above: Performed By: #### C C[place]AND ####[facility] Snbmihrnqn9038 [place] [phone]. Flaco Otero MCHC 33.3 g/dl Normal 29.9-35.2 [facility] Comment on above: Performed By: #### Corina GUTHRIE ####[facility] Lpszmnjdwm0216 [place] [phone]. Flaco Otero MCV 88.7 fL Normal 80.0-94.0 [facility] Comment on above: Performed By: #### C C[place]AND ####[facility] Rhxraemuvf7157 [place] [phone]. Flaco Otero METAMYELOCYTE # Normal [facility] Comment on above: Performed By: #### C C[place]AND ####[facility] Slcdtjzpzz6776 [place] [phone]. Flaco Otero METAMYELOCYTE % Normal [facility] Comment on above: Performed By: #### C CLEVELAND ####[facility] Layaydkixf2839 [place] [address]Dr. Flaco Otero MONOM# 0.14 103/ul Critically low 0.30-0.80 [facility] Comment on above: Performed By: #### C C[place]AND ####[facility] Sggysquhes3929 [place] [address]Dr. Flaco Otero MONOM% 1.0 % Critically low 1.7-12.0 [facility] Comment on above: Performed By: #### C C[place]AND ####[facility] Abskvkzdnc96[address] [place], [place] [address]Dr. Flaco Otero MPV 10.6 fL Normal 9.5-13.5 [facility] Comment on above: Performed By: #### C C[place]AND ####[facility] Gyxyezfoif2966 [place] [address]Dr. Flaco Otero MYELOCYTE # Normal [facility] Comment on above: Performed By: #### C CLEVELAND ####[facility] Pwvdrwcooi5912 [place] [phone]. Flaco Otero MYELOCYTE % Normal [facility] Comment on above: Performed By: #### C CLEVELAND ####[facility] Rtfgxfkfzh4862 [place] [phone]. Flaco Otero NRBC Normal [facility] Comment on above: Performed By: #### C CLEVELAND ####[facility] Liiqgnxwjk1441 [place], [place] [address]Qj. Flaco Otero PLT 267 103/ul Normal 150-450 [facility] Comment on above: Performed By: #### C CLEVELAND ####[facility] Fhusgbgkrx7785 [place] [phone]. Flaco Otero RBC 4.94 106/ul Normal 4.70-6.10 [facility] Comment on above: Performed By: #### C CLEVELAND ####[facility] Xakoodswio8456 [place] [phone]. Flaco Otero RDW 13.6 % Normal 11.0-15.0 [facility] Comment on above: Performed By: #### C C[place]AND ####[facility] Czifnnzmnq4920 [place] [address]Dr. Flaco Otero SEG # 12.96 103/ul Critically high 1.40-6.50 [facility] Comment on above: Performed By: #### C CLEVELAND ####[facility] Ttizuzylya8758 [place] [address]Dr. Flaco Otero SEG % 90.0 % Critically high 43.0-75.0 [facility] Comment on above: Performed By: #### C CLEVELNAD ####[facility] Skwftlblqo9498 [place] [phone]. Flaco Otero TOXIC GRANULATION 2+ Normal The [facility] Comment on above: Performed By: #### C C[place]AND ####[facility] Tzxzuxzirh5476 [place] [phone]. Flaco Otero WBC 14.4 103/ul Critically high 4.0-11.[address] [facility] Comment on above: Performed By: #### C CLEVELAND ####[facility] Oshusrkjph6340 [place] [phone]. Flaco Otero CT ABD/PELVIS WO CONon 07-29 CT ABD/PELVIS WO CON Normal [facility] CT HEAD WO CONon 07-29-2022 CT HEAD WO CON Normal [facility] CULTURE URINEon 07-29-2022 CULTURE URINE Culture Observations : NO GROWTH. Normal [facility] Comment on above: Performed By: #### U RCX ####[facility] Izqakyuukj0702 [place] [address]Dr. Flaco Otero ER URINE PROFILEon 2 Bilirubin Ql (U) MODERATE Abnormal NEGATIVE [facility] Comment on above: Performed By: #### EVETTE RAMON ####[facility] Rbxncxhriy2375 [place] [address]Dr. Flaco Otero Clarity (U) CLEAR Normal CLEAR [facility] Comment on above: Performed By: #### EVERARDO RAMONRO ####[facility] Vmmomrwhhz[address] [place], [place] [address]Dr. Flaco Otero Color (U) YELLOW Normal YELLOW [facility] Comment on above: Performed By: #### EVERARDO RAMONRO ####[facility] Evjrbijnyd[address] [place], [place] [address]Dr. Flaco Otero ERUAHD A micrscopic examination will be performed if indicated. Normal [facility] Comment on above: Performed By: #### EVERARDO RAMONRO ####[facility] Fsfysswsfa[address] [place], [place] [address]Dr. Flaco Otero Glucose Ql (U) Negative Normal NEGATIVE [facility] Comment on above: Performed By: #### EVERARDO RAMONRO ####[facility] Sognzcjqpo39[address] [place], [place] [address]Dr. Flaco Otero Hemoglobin Ql (U) MODERATE Abnormal NEGATIVE The [facility] Comment on above: Performed By: #### EVERARDO RAMONRO ####[facility] Vjfzvmttoh[address] [place], [place] [address]Dr. Flaco Otero Ketones Ql (U) 40 mg/dl Abnormal NEGATIVE [facility] Comment on above: Performed By: #### EVERARDO RAMONRO ####[facility] Rgefjtvzcj[address] [place], [place] [address]Dr. Flaco Otero LEUKOCYTES Negative Normal NEGATIVE [facility] Comment on above: Performed By: #### EVETTE RAMON ####[facility] Kluafuxvsd34[address] [place], [place] [address]Dr. Flaco Otero Nitrite Ql (U) Negative Normal NEGATIVE [facility] Comment on above: Performed By: #### EVETTE RAMON ####[facility] Pbqlxrnygx4392 [place] [address]Dr. Flaco Otero pH (U) 5.5 [pH] Normal 5-9 [facility] Comment on above: Performed By: #### EVETTE RAMON ####[facility] Ylepaasvqf[address] [place], [place] [address]Dr. Flaco Otero Protein (U) [Mass/Vol] 100 mg/dL Abnormal NEGAT LIANNE/ TRACE [facility] Comment on above: Performed By: #### EVETTE RAMON ####[facility] Ozbmgsykum[address] [place], [place] [address]Dr. Flaco Otero SPEC GRAVITY >=1.030 Abnormal 1.005-<=1.02 5 [facility] Comment on above: Performed By: #### EVETTE RAMON ####[facility] Ozhwsrfnww[address] [place], [place] [address]DrJeramie Otero UR MICRO IND INDICATED Normal [facility] Comment on above: Performed By: #### EVETTE RAMON ####[facility] Ymntxewirr[address] [place], [place] [address]Dr. Flaco Otero Urobilinogen Qn (U) 1.0 {Tuan'U}/dL Normal 0.2 - 1. 0 [facility] Comment on above: Performed By: #### EVETTE RAMON ####[facility] Pslvecfhlu[address] [place], [place] [address]DrJeramie Otero LACTATE/LACTIC ACIDon 2021 Lactate [Moles/Vol] 2.3 mmol/L Critically high 0.4-1.9 [facility] Comment on above: Performed By: #### L ACT ####[facility] Qruegwlnbz8[address] [place], [place] [address]DrJeramie Otero PROF 14(COMP METB)on 022 Albumin [Mass/Vol] 2.9 g/dL Critically low 3.4-5.0 [facility] Comment on above: Performed By: #### C MP ####[facility] Oqaybclvvk8851 [place] [address]Dr. Purviedith Branden Albumin/Globulin [Mass ratio] 0.7 {ratio} Normal [facility] Comment on above: Performed By: #### C MP ####[facility] Szyyyrhrsz32[address] [place] [address]Dr. Purviedith Branden ALP [Catalytic activity/Vol] 78 U/L Normal 46-116 [facility] Comment on above: Performed By: #### C MP ####[facility] Xewnbbzkqt43[address] [place] [address]Dr. Flaco Otero ALT [Catalytic activity/Vol] 33 U/L Normal 16-63 [facility] Comment on above: Performed By: #### C MP ####[facility] Yliikkrjrd[address] [place], [place] [address]Dr. Flaco Otero Anion gap [Moles/Vol] 14.5 mmol/L Normal [facility] Comment on above: Performed By: #### C MP ####[facility] Mlnwjerhew[address] [place], [place] [address]Dr. Flaco Otero AST [Catalytic activity/Vol] 38 U/L Critically high 15-37 [facility] Comment on above: Performed By: #### C MP ####[facility] Mqllzzphmb[address] [place], [place] [address]Dr. Flaco Otero Bilirubin [Mass/Vol] 1.6 mg/dL Critically high 0.2-1.0 [facility] Comment on above: Performed By: #### C MP ####[facility] Jzkuovpjkp50[address] [place] [address]Dr. Flaco Otero Calcium [Mass/Vol] 9.2 mg/dL Normal 8.5-10.1 [facility] Comment on above: Performed By: #### C MP ####[facility] Israuxizjg54[address] [place] [address]Dr. Flaco Otero Chloride [Moles/Vol] 104 mmol/L Normal 98-107 [facility] Comment on above: Performed By: #### C MP ####[facility] Efupqxecsj7045 [place] [phone]. Flaco Otero CO2 [Moles/Vol] 23.5 mmol/L Normal 21.0-32.0 [facility] Comment on above: Performed By: #### C MP ####[facility] Otuubgmtzw8433 [place] [phone]. Flaco Otero Creatinine [Mass/Vol] 1.95 mg/dL Critically high 0.70-1.30 [facility] Comment on above: Performed By: #### C MP ####[facility] Hlnzwiveyv8551 [place] [phone]. Flaco Otero EGFR-AF EGYPTIAN 41 mL/min/1.73m2 Critically low >=60 [facility] Comment on above: Performed By: #### C MP ####[facility] Vtknrbxtnd8877 [place] [address]Dr. Flaco Otero EGFR-NON AF EGYPTIAN 34 mL/min/1.73m2 Critically low >=60 [facility] Comment on above: Performed By: #### C MP ####[facility] Gydnnlhybj0415 [place] [address]Dr. Flaco Otero Globulin (S) [Mass/Vol] 4.3 g/dL Normal [facility] Comment on above: Performed By: #### C MP ####[facility] Nxzfciznrv6977 [place] [address]Dr. Flaco Otero Glucose [Mass/Vol] 169 mg/dL Critically high 74-106 [facility] Comment on above: Performed By: #### C MP ####[facility] Suotevqjhz8846 [place] [phone]. Flaco Otero Potassium [Moles/Vol] 4.0 mmol/L Normal 3.5-5.1 [facility] Comment on above: Performed By: #### C MP ####[facility] Jwkooyxeyw3207 [place] [phone]. Flaco Otero Protein [Mass/Vol] 7.2 g/dL Normal 6.4-8.2 [facility] Comment on above: Performed By: #### C MP ####[facility] Jhkmedpxka5695 [place] [address]Dr. Flaco Otero Sodium [Moles/Vol] 138 mmol/L Normal 136-145 [facility] Comment on above: Performed By: #### C MP ####[facility] Valebiqwtc0320 [place] [address]Dr. Flaco Otero Urea nitrogen [Mass/Vol] 29.0 mg/dL Critically high 7.0-18.0 [facility] Comment on above: Performed By: #### C MP ####[facility] Bbkzasaeom0826 [place] [address]Dr. Flaco Otero Urea nitrogen/Creatinine [Mass ratio] 14.9 mg/mg Normal [facility] Comment on above: Performed By: #### C MP ####[facility] Mnmxktgcsp[address] [place], [place] [address]Dr. Flaco Otero URINE MICROSCOPIC ONLYon AMORPHOUS CRYSTALS MODERATE Normal [facility] Comment on above: Performed By: #### Riccardo SENA UMICRO ####[facility] Tvyygilqeu5[address] [place], [place] [address]Dr. Flaco Otero BACTERIA MODERATE Abnormal NONE SEEN [facility] Comment on above: Performed By: #### Riccardo SENA UMICRO ####[facility] Sipvbwaikr9[address] [place], [place] [address]Dr. Flaco Otero Bacteria identified Cx Nom (U) INDICATED Normal [facility] Comment on above: Performed By: #### Riccardo SENA UMICRO ####[facility] Bbunbmtzuq2214[address] [place], [place] [address]Dr. Flaco Otero CAST SEEN Abnormal NONE SEEN [facility] Comment on above: Performed By: #### Riccardo SENA UMICRO ####[facility] Mqbivpfbix[address] [place], [place] [address]Dr. Flaco Otero COARSE GRANULAR CAST RARE Normal [facility] Comment on above: Performed By: #### Riccardo SENA UMICRO ####[facility] Avkubmpzkp3511[address] [place], [place] [address]Dr. Flaco Otero Crystals LM Nom (Urine sed) SEEN Abnormal NONE SEEN [facility] Comment on above: Performed By: #### EVETTE RAMON ####[facility] Pmfiudlfvr6032 [place] [address]Dr. Flaco Otero Epithelial cells LM Ql (Urine sed) RARE Normal NONE SEEN /RARE [facility] Comment on above: Performed By: #### EVETTE RAMON ####[facility] Lypsmuroud4976 [place] [address]Dr. Flaco Otero MUCOUS TRACE Abnormal NONE SEEN [facility] Comment on above: Performed By: #### EVETTE RAMON ####[facility] Qznfkkabiz2274[address] [place], [place] [address]Dr. Flaco Otero RBC 0-2 Normal 0-2 [facility] Comment on above: Performed By: #### EVETTE RAMON ####[facility] Dphvdxctnh87[address] [place], [place] [address]Dr. Flaco Otero WBC 0-2 Abnormal NONE SEEN [facility] Comment on above: Performed By: #### EVETTE RAMON ####[facility] Mkehtyggtb04[address] [place], [place] [address]Dr. Flaco Otero BNPon 07-28-2022 Natriuretic peptide B (Bld) [Mass/Vol] 258.0 pg/mL Normal <=900.0 [facility] Comment on above: Performed By: #### C MP, BNP, HSTROPN ####[facility] Rppyowflah8324 [place] [address]Dr. Flaco Otero CBC W MANUAL DIFFon 07-28-20 22 ATYPICAL LYMPH # 0.21 103/ul Normal [facility] Comment on above: Performed By: #### Corina GUTHRIE ####[facility] Utsbwwujjp[address] [place], [place] [address]Dr. Flaco Otero ATYPICAL LYMPH % 1 % Normal The [facility] Comment on above: Performed By: #### Corina GUTHRIE ####[facility] Dajzhptvek5268[address] [place], [place] [address]Dr. Yilan Otero BAND # 0.0 103/ul Normal 0.0-0.3 [facility] Comment on above: Performed By: #### C BCMAN ####[facility] Mqmldyfkao6156 [place] [address]Dr. Yilan Otero BAND % 0 % Normal 0-5 [facility] Comment on above: Performed By: #### C BCMAN ####[facility] Qdzdzzatuz0506 [place] [address]Dr. Yilan Otero BASOM # 0.00 103/ul Normal 0.00-0.10 [facility] Comment on above: Performed By: #### C BCGAYATHRI ####[facility] Sybbzxopbu5991 [place] [address]Dr. Yilan Otero BASOM % 0.0 % Critically low 0.2-2.0 The [facility] Comment on above: Performed By: #### C BCGAYATHRI ####[facility] Ranlegzoza6868[address] [place], [place] [address]Dr. Yilan Otero BLAST # Normal [facility] Comment on above: Performed By: #### C CLEVELAND ####[facility] Axuqijlchw64[address] [place], [place] [address]Dr. Yilan Otero BLAST % Normal [facility] Comment on above: Performed By: #### C BCGAYATHRI ####[facility] Mlzazkcjic[address] [place], [place] [address]Dr. Flaco Otero CORRECTED WBC Normal 4.0-11.0 The [facility] Comment on above: Performed By: #### C BCGAYATHRI ####[facility] Iowcfyskuq4510[address] [place], [place] [address]Dr. Yiedith Otero EOS # 0.00 103/ul Normal 0.00-0.70 [facility] Comment on above: Performed By: #### C BCMAN ####[facility] Oobqbwklrg9454[address] [place], [place] [address]Dr. Yiedith Otero EOS% 0.0 % Critically low 0.9-7.0 The [facility] Comment on above: Performed By: #### C BCGAYATHRI ####[facility] Cctfrmcier6836[address] [place], [place] [address]Dr. Flaco Otero HCT 48.8 % Normal 42.0-54.0 [facility] Comment on above: Performed By: #### C C[place] ####[facility] Ynksthxxay2603 [place] [phone]. Flaco Otero HGB 16.2 g/dl Normal 14.0-18.0 [facility] Comment on above: Performed By: #### C C[place] ####[facility] Anvyagnype6010 [place] [phone]. Flaco Otero LYMPHM # 0.62 103/ul Critically low 1.20-3.80 [facility] Comment on above: Performed By: #### C C[place] ####[facility] Tndgdggilm0637 [place] [address]Dr. Flaco Otero LYMPHM% 3.0 % Critically low 20.5-60.0 [facility] Comment on above: Performed By: #### C C[place] ####[facility] Mutyfvkisx2846 [place] [address]Dr. Flaco Otero MCH 29.5 pg Normal 25.9-34.0 [facility] Comment on above: Performed By: #### C C[place]AND ####[facility] Dvbrbeuifb5172 [place] [address]Dr. Flaco Otero MCHC 33.2 g/dl Normal 29.9-35.2 [facility] Comment on above: Performed By: #### C C[place] ####[facility] Qtjidsmzlk6210 [place] [phone]. Flaco Otero MCV 88.7 fL Normal 80.0-94.0 [facility] Comment on above: Performed By: #### C C[place]AND ####[facility] Anpledtqon4431 [place] [address]Dr. Flaco Otero METAMYELOCYTE # Normal [facility] Comment on above: Performed By: #### C C[place]AND ####[facility] Mvmmumzbzf4953 [place] [phone]. Flaco Otero METAMYELOCYTE % Normal [facility] Comment on above: Performed By: #### C C[place]AND ####[facility] Pjmjwjwoai7482 [place], [place] [address]Kp. Flaco Otero MONOM# 2.28 103/ul Critically high 0.30-0.80 [facility] Comment on above: Performed By: #### C C[place]AND ####[facility] Jipqcmmlyo9014 [place], [place] [address]Iw. Flaco Otero MONOM% 11.0 % Normal 1.7-12.0 [facility] Comment on above: Performed By: #### C C[place]AND ####[facility] Xamjwuuizg2622 [place] [phone]. Flaco Otero MPV 10.5 fL Normal 9.5-13.5 [facility] Comment on above: Performed By: #### C C[place] ####[facility] Dnotfdsnau[address] [place], [place] [phone]. Flaco Otero MYELOCYTE # Normal [facility] Comment on above: Performed By: #### Corina GUTHRIE ####[facility] Plyznkhsqg47[address] [place], [place] [phone]. Flaco Otero MYELOCYTE % Normal [facility] Comment on above: Performed By: #### Corina GUTHRIE ####[facility] Rvgtajoima8[address] [place], [place] [phone]. Flaco Otero NRBC Normal [facility] Comment on above: Performed By: #### Corina GUTHRIE ####[facility] Rbkksdbiui3865 [place] [phone]. Flaco Otero PLT 317 103/ul Normal 150-450 [facility] Comment on above: Performed By: #### C C[place]AND ####[facility] Gqmepocuwl8[address] [place], [place] [address]Dr. Flaco Otero RBC 5.50 106/ul Normal 4.70-6.10 [facility] Comment on above: Performed By: #### C C[place] ####[facility] Qeqkcyzbuv4642 [place] [phone]. Flaco Otero RDW 13.6 % Normal 11.0-15.0 [facility] Comment on above: Performed By: #### C BCMAN ####[facility] Irfzjphynr9114 [place], [place] [address]Zm. Flaco Otero SEG # 17.59 103/ul Critically high 1.40-6.50 The [facility] Comment on above: Performed By: #### C BCMAN ####[facility] Tgqkflshyd2070 [place], [place] [address]Ft. Flaco Otero SEG % 85.0 % Critically high 43.0-75.0 [facility] Comment on above: Performed By: #### C BCMAN ####[facility] Vzyakyrkhn9262 [place], [place] [address]Sx. Falco Otero WBC 20.7 103/ul Critically high 4.0-11.0 [facility] Comment on above: Performed By: #### C BCMAN ####[facility] Izemyxefrw8001 [place], [place] [address]Bw. Flaco Otero CULTURE BLOODon 07-28-2022 Microscopic examination of blood, culture Culture Observations: NO GROWTH AT 5 DAYS. Normal [facility] Comment on above: Performed By: #### B LDCX2 ####[facility] Wfpuzdliab3182 [place] [phone]. Flaco Otero Microscopic examination of blood, culture Culture Observations: NO GROWTH AT 5 DAYS. Normal [facility] Comment on above: Performed By: #### B LDCX1 ####[facility] Nqytdauatm0522 [place] [phone]. Flaco Otero Covid-19 PCR (CVDTB)on 06-30 SARS-CoV-2 (COVID-19) RNA MARCO ANTONIO+probe Ql (Unsp spec) Not detected Normal NOT DETECTED [facility] Comment on above: Result Comment: When diagnostic testing is negative, the possibility of a false negative should be considered inthe context of a patient's recent exposures and the presence of clinical signs and symptomsconsistent with SARS-CoV-2.This test is not yet approved or cleared by the [place] FDA. When there are no FDA-approved or cleared tests available, and other criteria are met, FDA can make tests available under an emergency access mechanism called an Emergency Use Authorization (EUA). The EUA for this test is supported by the Director Of Psychology of Health and Human Service's declaration that circumstances exist to justify the emergency use of in vitro diagnostics for the detection and/or diagnosis of the virus that causes COVID-19. This EUA will remain in effect for the duration of the COVID-19 declaration justifying emergency of IVDs, unless it is terminated or revoked by the FDA (after which the test may no longer be used). Performed By: #### C VDTBH ####[facility] Lghisegnwi199[address] [place], [place] [address]Dr. Flaco Otero INFLUENZA A AND B AGon 06-30 INFLUENZA A AG Negative Normal NEGATIVE SEE COMMENT [facility] Comment on above: Performed By: #### I NFLUAB ####[facility] Tzlkiwckxp54[address] [place], [place] [address]Dr. Flaco Otero INFLUENZA B AG Negative Normal NEGATIVE SEE COMMENT [facility] Comment on above: Performed By: #### I NFLUAB ####[facility] Uskuejjdpc5232[address] [place], [place] [address]Dr. Flaco Otero INTERNAL CONTROLS Within Normal Limits Normal Wi thin Normal Limits [facility] Comment on above: Performed By: #### I NFLUAB ####[facility] Nggqaxezno5108[address] [place], [place] [address]Dr. Flaco Otero LACTATE/LACTIC ACIDon 2021 Lactate [Moles/Vol] 2.6 mmol/L Critically high 0.4-1.9 [facility] Comment on above: Performed By: #### L ACT ####[facility] Llhcmdkxdt3[address] [place], [place] [address]Dr. Flaco Otero PROF 14(COMP METB)on 022 Albumin [Mass/Vol] 3.7 g/dL Normal 3.4-5.0 [facility] Comment on above: Performed By: #### C MP, BNP, HSTROPN ####[facility] Ufukrdgamc[address] [place], [place] [address]Dr. Flaco Otero Albumin/Globulin [Mass ratio] 0.8 {ratio} Normal [facility] Comment on above: Performed By: #### C MP, BNP, HSTROPN ####[facility] Kiphanpqpc3773 [place] [address]Dr. Flaco Otero ALP [Catalytic activity/Vol] 95 U/L Normal 46-116 [facility] Comment on above: Performed By: #### C MP, BNP, HSTROPN ####[facility] Bttmrcuzys0655 [place] [address]Dr. Flaco Otero ALT [Catalytic activity/Vol] 38 U/L Normal 16-63 [facility] Comment on above: Performed By: #### C MP, BNP, HSTROPN ####[facility] Ocnizbghnd7244 [place] [address]Dr. Flaco Otero Anion gap [Moles/Vol] 16.8 mmol/L Normal [facility] Comment on above: Performed By: #### C MP, BNP, HSTROPN ####[facility] Ealzbuswmy2286[address] [place], [place] [address]Dr. Flaco Otero AST [Catalytic activity/Vol] 44 U/L Critically high 15-37 [facility] Comment on above: Performed By: #### C MP, BNP, HSTROPN ####[facility] Lgjdeemkgp[address] [place], [place] [address]Dr. Flaco Otero Bilirubin [Mass/Vol] 2.7 mg/dL Critically high 0.2-1.0 [facility] Comment on above: Performed By: #### C MP, BNP, HSTROPN ####[facility] Rpfnviexks[address] [place], [place] [address]Dr. Flaco Otero Calcium [Mass/Vol] 9.8 mg/dL Normal 8.5-10.1 [facility] Comment on above: Performed By: #### C MP, BNP, HSTROPN ####[facility] Lnibqonkbx[address] [place], [place] [address]Dr. Flaco Otero Chloride [Moles/Vol] 102 mmol/L Normal 98-107 [facility] Comment on above: Performed By: #### C MP, BNP, HSTROPN ####[facility] Msjswlpekb3640 [place] [address]Dr. Flaco Otero CO2 [Moles/Vol] 23.0 mmol/L Normal 21.0-32.[address] [facility] Comment on above: Performed By: #### C MP, BNP, HSTROPN ####[facility] Xwziqowpbh6004 [place] [address]Dr. Flaco Otero Creatinine [Mass/Vol] 2.22 mg/dL Critically high 0.70-1.30 [facility] Comment on above: Performed By: #### C MP, BNP, HSTROPN ####[facility] Wsnijnpeqd3924[address] [place], [place] [address]Dr. Flaco Brandne EGFR-AF EGYPTIAN 36 mL/min/1.73m2 Critically low >=60 [facility] Comment on above: Performed By: #### C MP, BNP, HSTROPN ####[facility] Tesixliyvz[address] [place], [place] [address]Dr. Flaco Branden EGFR-NON AF EGYPTIAN 29 mL/min/1.73m2 Critically low >=60 [facility] Comment on above: Performed By: #### C MP, BNP, HSTROPN ####[facility] Gbbrcexlpd[address] [place], [place] [address]Dr. Flaco Branden Globulin (S) [Mass/Vol] 4.7 g/dL Normal [facility] Comment on above: Performed By: #### C MP, BNP, HSTROPN ####[facility] Bszapmsjvf7[address] [place], [place] [address]Dr. Flaco Branden Glucose [Mass/Vol] 145 mg/dL Critically high 74-106 [facility] Comment on above: Performed By: #### C MP, BNP, HSTROPN ####[facility] Brourtkmrq1637[address] [place], [place] [address]Dr. Flaco Branden Potassium [Moles/Vol] 3.8 mmol/L Normal 3.5-5.1 [facility] Comment on above: Performed By: #### C MP, BNP, HSTROPN ####[facility] Hhcclxxqzc[address] [place], [place] [address]Dr. Flaco Otero Protein [Mass/Vol] 8.4 g/dL Critically high 6.4-8.2 [facility] Comment on above: Performed By: #### C MP, BNP, HSTROPN ####[facility] Ojgqsgzsmz2912 [place] [address]Dr. Flaco Otero Sodium [Moles/Vol] 138 mmol/L Normal 136-145 [facility] Comment on above: Performed By: #### C MP, BNP, HSTROPN ####[facility] Eraoimoxwj2743 [place] [address]Dr. Flaco Otero Urea nitrogen [Mass/Vol] 29.0 mg/dL Critically high 7.0-18.0 [facility] Comment on above: Performed By: #### C MP, BNP, HSTROPN ####[facility] Jjoqjdtcif8120 [place] [address]Dr. Flaco Otero Urea nitrogen/Creatinine [Mass ratio] 13.1 mg/mg Normal [facility] Comment on above: Performed By: #### C MP, BNP, HSTROPN ####[facility] Lmzhrlgaeo2943 [place] [address]Dr. Flaco Otero TROPONIN, HIGH SENSITIVITYon 07-28-2022 HSTROP 13.6 pg/mL Normal 4.0-76.1 [facility] Comment on above: Result Comment: CUT- OFF POINTS HAVE BEEN ESTABLISHED BASED ON THE FOURTH UNIVERSAL DEFINITIONS OF MYOCARDIALINFARCTION. THE UPPER REFERENCE LIMIT (URL) OF TROPONIN, DEFINED THE 99TH PERCENTILE OFcTnI DISTRIBUTION IN A REFERENCE POPULATION, HAS BEEN CONFIRMED THE DECISION THRESHOLDFOR SC DIAGNOSIS. Performed By: #### C MP, BNP, HSTROPN ####[facility] Wrxoezbivc3010 [place] [address]Dr. Flaco Otero XR CHEST 1 Von 07-28-2022 XR CHEST 1 V Normal [facility] Covid-19 PCR (CVDTBH)on 06-29 SARS-CoV-2 (COVID-19) RNA MARCO ANTONIO+probe Ql (Unsp spec) Not detected Normal NOT DETECTED [facility] Comment on above: Result Comment: This test is not yet approved or cleared by the [place] FDA. When there are no FDA-approved or cleared tests available, and other criteria are met, FDA can make tests available under an emergency access mechanism called an Emergency Use Authorization (EUA). The EUA for this test is supported by the Director Of Psychology of Health and Human Service's (HHS's) declaration that circumstances exist to justify the emergency use of in vitro diagnostics for the detection and/or diagnosis of the virus that causes COVID-19. This EUA will remain in effect (meaning this test can be used) for the duration of the COVID-19 declaration justifying emergency of IVDs, unless it is terminated or revoked by FDA (after which the test may no longer be used).When diagnostic testing is negative, the possibility of a false negative should be considered inthe context of a patient's recent exposures and the presence of clinical signs and symptomsconsistent with SARS-CoV-2. Performed By: #### C VDTB ####[facility] Eblwsfnlql[address] [place], [place] [address]DrJeramie Otero PROF CHEM 8 (BAS METB)on Anion gap [Moles/Vol] 11.2 mmol/L Normal [facility] Comment on above: Performed By: #### B MP ####[facility] Fhoqvdvomn[address] [place], [place] [address]Dr. Flaco Otero Calcium [Mass/Vol] 8.7 mg/dL Normal 8.5-10.1 [facility] Comment on above: Performed By: #### B MP ####[facility] Yvdxluosaf[address] [place], [place] [address]Dr. Flaco Otero Chloride [Moles/Vol] 108 mmol/L Critically high 98-107 [facility] Comment on above: Performed By: #### B MP ####[facility] Covqrznxvj3366[address] [place], [place] [address]Dr. Flaco Otero CO2 [Moles/Vol] 26.9 mmol/L Normal 21.0-32.0 [facility] Comment on above: Performed By: #### B MP ####[facility] Pyhhdvmqem6[address] [place], [place] [address]Dr. Flaco Otero Creatinine [Mass/Vol] 1.77 mg/dL Critically high 0.70-1.30 [facility] Comment on above: Performed By: #### B MP ####[facility] Tzbnjptfav1808 [place] [address]Dr. Flaco Otero EGFR-AF EGYPTIAN 46 mL/min/1.73m2 Critically low >=60 [facility] Comment on above: Performed By: #### B MP ####[facility] Snbnqetioj[address] [place], [place] [address]Dr. Flaco Otero EGFR-NON AF EGYPTIAN 38 mL/min/1.73m2 Critically low >=60 [facility] Comment on above: Performed By: #### B MP ####[facility] Zfjnombhzn[address] [place], [place] [address]Dr. Flaco Otero Glucose [Mass/Vol] 89 mg/dL Normal 74-106 [facility] Comment on above: Performed By: #### B MP ####[facility] [address] [place], [place] [address]Dr. Flaco Otero Potassium [Moles/Vol] 4.1 mmol/L Normal 3.5-5.1 [facility] Comment on above: Performed By: #### B MP ####[facility] [address] [place], [place] [address]Dr. Flaco Otero Sodium [Moles/Vol] 142 mmol/L Normal 136-145 [facility] Comment on above: Performed By: #### B MP ####[facility] [address] [place], [place] [address]Dr. Flaco Otero Urea nitrogen [Mass/Vol] 15.0 mg/dL Normal 7.0-18.0 [facility] Comment on above: Performed By: #### B MP ####[facility] [address] [place], [place] [address]Dr. Flaco Otero Urea nitrogen/Creatinine [Mass ratio] 8.5 mg/mg Normal [facility] Comment on above: Performed By: #### B MP ####[facility] [address] [place], [place] [address]Dr. Flaco Otero XR FOOT RT MIN 3 VIEWSon XR FOOT RT MIN 3 VIEWS Normal [facility] Vital Signs Date Time Vital Sign Value Performing Clinician Bill woodard 09-18-2023 13:33-0500 Body height 170.2 cm Alyssa Camacho MD Work Phone: [facility] 09-18-2023 13:33-0500 Body mass index (BMI) [Ratio] 23.49 kg/m2 Alyssa Camacho MD Work Phone: [facility] 09-18-2023 13:33-0500 Body weight 68.04 kg Alyssa Camacho MD Work Phone: [facility] 09-18-2023 13:33-0500 Diastolic blood pressure 79 mm[Hg] Alyssa Camacho MD Work Phone: [facility] 09-18-2023 13:33-0500 Heart rate 61 /min Alyssa Camacho MD Work Phone: [facility] 09-18-2023 13:33-0500 Systolic blood pressure 121 mm[Hg] Alyssa Camacho MD Work Phone: [facility] 05-12-2023 13:51-0400 Blood Pressure Location Baljit DOSHI [facility] [place] 05-12-2023 13:51-0400 Diastolic blood pressure 74 mm[Hg] Baljit DOSHI [facility] [place] 05-12-2023 13:51-0400 Heart rate 70 /min Baljit DOSHI [facility] [place] 05-12-2023 13:51-0400 Respiratory rate 16 /min Baljit DOSHI [facility] [place] 05-12-2023 13:51-0400 Systolic blood pressure 120 mm[Hg] Baljit DOSHI [facility] Encounters Encounter Date Encounter Type Care Provider Facility Start: 09-18-2023 End: 09-18-2023 Office outpatient visit 25 minutes Alyssa Camacho MD Work Phone: [facility] Comment on above: Parkinsonism, unspec ified Parkinsonism type (Primary Dx); Tardive dyskinesia; Mild dementia with agitation, unspecified dementia type (CMS-HCC); Gait instability; Urinary retention; Spondylosis of cervical spine; Sundowning; Chronic bilateral low back pain, unspecified whether sciatica present; Insomnia due to medical condition Start: 09-14-2023 End: 09-14-2023 ambulatory [facility] Start: 09-10-2023 End: 09-10-2023 ambulatory [facility] Start: 07-21-2023 End: 07-21-2023 ambulatory [facility] Start: 05-27-2023 End: 05-28-2023 ambulatory Baljit DOSHI Facility:CD:[id number] Start: 05-12-2023 End: 05-13-2023 ambulatory Baljit DOSIH Facility:[facility] Start: 05-12-2023 End: 05-12-2023 Patient encounter procedure Baljit DOSHI [facility] Start: 04-01-2023 End: 04-01-2023 ambulatory [facility] Start: 02-09-2023 End: 02-10-2023 Evaluation and management of inpatient DR LIBRADO MIKE . Facility:[facility] Start: 01-20-2023 End: 01-21-[address] LIBRADO MKIE . Facility:[facility] Start: 01-06-2023 End: 01-07-[address] LIBRADO MIKE . Facility:[facility] Start: 12-16-2022 End: 12-17-[address] LIBRADO MIKE . Facility:[facility] Start: 11-17-2022 End: 11-18-2022 Evaluation and management of inpatient DR LIBRADO MIKE . Facility:[facility] Start: 11-06-2022 End: 11-07-2022 ambulatory MANOLO BOLAND Facility:[facility] Start: 10-16-2022 End: 10-17-2022 ambulatory MANOLO BOLAND Facility:[facility] Start: 09-25-2022 Encounter for preprocedural laboratory examination [facility] Start: 09-25-2022 End: 09-25-[address] FABIAN KENNEDY Facility:[facility]1 Start: 09-22-2022 End: 09-23-[address] [facility] Facility:[facility]1 Start: 09-22-2022 End: 09-23-2022 Encounter for preprocedural laboratory examination [facility] Facility:[facility]1 Start: 09-15-2022 Encounter for preprocedural cardiovascular examination [facility] Start: 09-11-2022 End: 09-12-2022 ambulatory [facility] Facility:[facility] Start: 08-15-2022 End: 08-15-2022 ambulatory JOVANI UMANZOR . Facility:[facility]1 Start: 07-30-2022 End: 08-02-2022 Evaluation and management of inpatient DR LIBRADO MIKE . Facility:[facility] Start: 07-24-2022 End: 07-25-[address] [facility] Facility:H1 Start: 07-17-2022 Encounter for preprocedural cardiovascular examination [facility] Start: 07-17-2022 Encounter for preprocedural laboratory examination [facility] Start: 07-15-2022 End: 07-16-[address] [facility] Facility:H1 Start: 07-15-2022 End: 07-16-2022 Encounter for preprocedural cardiovascular examination [facility] Facility:H1 Start: 06-18-2022 End: 06-19-[address] LIBRADO MIKE . Facility: Procedures Date Procedure Procedure Detail Performing Clinician Start: 09-18-2023 Adult depression scr eening assessment Ehad Janice ARVIZU Work Phone: Start: 09-19-2020 Excisional biopsy Karlos luzmaria DOSHI Comment on above: mid back Start: 06-20-2020 Laparoscopic cholecystectomy Baljit DOSHI Start: 09-28-2019 Brachytherapy of [place] state using fluoroscopic guidance Baljit DOSHI Start: 07-30-2015 Excision of lumbar intervertebral disc Baljit DOSHI Comment on above: L3-L5 Start: 08-14-[address] Start: 02-04-[address] Bone graft Baljit DOSHI Comment on above: right great toe Skin graft material (substance) Baljit DOSHI Comment on above: right great toe Vasectomy Baljit DOSHI Plan of Treatment Date Care Activity Detail Author Start: 09-18-2024 Adult BMI Screening Adult BMI Screening [facility] Start: 09-18-2024 Depression Screening Depression Screening [facility] Start: 09-18-2024 Tobacco Screening Tobacco Screening [facility] Start: 02-12-2024 End: 02-12-2024 Patient encounter procedure 02/12/2024 2:00 PM EDT Office Visit [facility] [address] [place] [address] Alyssa Camacho MD [address] [place] [address], [address] [address] [facility] Start: 05-29-2023 COVID-19 Vaccine ( season) COVID-19 Vaccine ( season) [facility] Start: 05-29-2023 Influenza vaccination Influenza Vaccine [facility] Start: 02-08-2016 Fall Risk Screening Fall Risk Screening [facility] Start: 1970 Administration of varicella zoster vaccine Zoster (Shingles) Vaccine (1 of 2) [facility] Start: 1970 DTaP,Tdap and Td Vaccines (1 - Tdap) DTaP,Tdap and Td Vaccines (1 - Tdap) [facility] Start: 1950 Medicare Annual Wellness Visit Medicare Annual Wellness Visit [facility] Immunizations Immunization Date Immunization Notes Care Provider Fa cility 09-15-2021 Influenza Vaccine, Quadrivalent, Adjuvanted Alyssa Camacho MD Work Phone: [facility] 09-15-2021 influenza virus vaccine, unspecified formulation Alyssa Camacho MD Work Phone: [facility] 07-22-2021 SARS-CoV-2 (COVID-19 ) mRNA-1273 vaccine Baljit DOSHI [facility] Comment on above: Result Comment: 2022: [id number] 12-19-2020 SARS-CoV-2 (COVID-19 ) mRNA-1273 vaccine Baljit DOSHI [facility] 11-22-2020 SARS-CoV-2 (COVID-19 ) mRNA-1273 vaccine Baljit DOSHI [facility] 06-05-2020 influenza, seasonal, injectable Alyssa Camacho MD Work Phone: [facility] 05-28-2020 pneumococcal conjuga te vaccine, 13 valent Alyssa Camacho MD Work Phone: [facility] Payers Date Payer Category Payer Medicare A[employer] MEDICARE A ETNA MEDICARE PLAN (HMO) [id number] 2021-Present [phone] [address] [place] [address] [id number] 1958 Medicare [id number] 1950 Unknown [id number] 1950 Unknown [id number] [id number] 1950 Unknown [id number] [id number] 1950 Unknown [id number] 2.16.840.1.440346.3.579.2.59 1950 Unknown [id number] 2.16.840.1.657440.3.579.2.593 1950 Unknown [id number] 2.16.840.1.016479.3.579.2.593 1951 Unknown [id number] 2.16.840.1.938886.3.579.2.593 1951 Unknown [id number] 2.16.840.1.423881.3.579.2.593 1951 Unknown [id number] 2.16.840.1.550821.3.579.2.593 1951 Unknown [id number] 2.16.840.1.300819.3.579.2.593 1951 Unknown [id number] 2.16.840.1.995068.3.579.2.593 1951 Unknown [id number] 2.16.840.1.229922.3.579.2.593 1951 Unknown [id number] 2.16.840.1.532970.3.579.2.593 1951 Unknown [id number] 2.16.840.1.393354.3.579.2.593 1951 Unknown [id number] 2.16.840.1.679575.3.579.2.593 1950 Unknown [id number] [id number] 1950 Unknown [id number] [id number] Social History Date Type Detail Facility Start: 05-12-2023 Tobacco smoking status Ex-smoker (fi nding) [facility] Tobacco smoking status Never [facility] [place] Start: 07-03-2020 End: 11-08-2020 Sex Assigned At Male [facility] Start: 12-17-2022 Tobacco smoking stat us NHIS Never smoked tobacco [facility] Start: 12-17-2022 Tobacco use and exposure Smokeless tobacco non-user [facility] Start: 09-27-2023 Alcohol intake Ex-drinker (finding) [facility] Start: 07-03-2020 End: 11-08-2020 History of Social function [facility] How often to you hav e a drink containing alcohol? Never [facility] Start: 1950 Sex Assigned At Not on file P [facility] Functional Status Date Assessment Result Facility 05-12-2023 Functional Status N/A [facility] [place] Clinical Notes 04-01-2023 to 09-18-2023 Alyssa Camacho MD - 09/18/2023 1:30 PM EST Note Date & Type Note Facility 09-18-2023 Note Patient stopped into office for wound check Continues to heal well There is still a scab over the incision site and mild ecchymosis but otherwises no swelling, erhythmia, drainage Ok to leave open to air Recommend he covers it while he sleeps at least for a few more days, he almost done with antibiotics Will have him RTC in 3 months to review loop Instructed if there is any concern with loop insertion site to call office immediately [facility] 09-18-2023 History of Present illness Narrative Images from the original note were not included. [address] [place] [facility] [address] Patient: Efraín Johnson Date of : 1950 Encounter Date: 09/18/2023 Patient Care Team: Librado Mike MD as PCP - General (Family Medicine) History of Present Illness: The patient is a 73 y.o. male, an established patient, and is following up after a hospitalization for gait instability and dementia. Patient is currently accompanied to the clinic by his spouse. Summary of Condition: The patient was initially admitted at [facility] 2021 with complaints of subacute left lower extremity weakness and gait instability. Subsequently was seen by the tele Stroke Service and had a stroke workup which was unremarkable. Was seen subsequently seen by the tele neurology service, and then had MRI of the entire spine which showed multilevel degenerative changes, however nothing that required urgent neurosurgical intervention. Was then transferred to [facility] for further evaluation and management. Was admitted under the primary neurology service([place]), where he was identified to have signs of parkinsonism, involuntary lower facial twitching consistent with extrapyramidal symptoms(tardive dyskinesias?). On initial evaluation at [facility], was not identified to have any lower extremity weakness or other focal neurological deficits. He was on doxepin and Zyprexa, which were started about 6 months ago for behavioral disturbances and agitation. Those medications were discontinued during the hospitalization. Was eventually started on Sinemet IR and seemed to respond with improved gait and decreased facial movements. Was eventually started on Sinemet CR as well. Was then discharged home with home health care services. At the last clinic visit patient had reported significant improvement in lower facial twitching. At the time, had a nonhealing ulcer on his right heel, for which he was seeing vascular surgery/wound care. Was ambulating using a walker. Denied having any falls. Did c/o of long standing h/o short term memory problems. MOCA from last clinic visit . Was instructed to get NM HERVE scan. NM HERVE scan from December, very subtle and early changes of Parkinson's syndrome particularly within the posterior left lentiform nucleus. Interval history 09/18/2023: - reports gait, ambulatory function has been stable since the last clinic visit. Has not had any falls since the last clinic visit. - memory and forgetfulness have been stable since last clinic visit. Has not had hallucinations, behavioral disturbances, fluctuation in the consciousness, mental status changes over the last few months. - is currently living with family, appears to be fairly independent with ADLs and IADLs. - has not had any facial twitching since the last clinic visit. - currently taking Sinemet IR 25-100 mg tablet and Sinemet CR 25-100 mg tablet--> 1 tab of each t.i.d.(6 am, 12 pm, 6 pm, usually 30- 60 minutes before snacks/meals). Denies any adverse events related to Sinemet intake. - denies tremors, constipation, dream enactment behavior, dysphagia, dysarthria, language impairment, fusion states, loss of consciousness, falls, fever, palpitations, constitutional symptoms, rash, language impairment, behavioral disturbances since being discharged from the hospital. Allergies: Penicillins Review of Relevant Patient Questionnaires: HIT 6: No data to display PHQ-9: 09/18/2023 1:38 PM 03/20/2023 1:33 PM 12/17/2022 2:42 PM PM AMB PHQ 9 Little interest or pleasure in doing things 0 0 0 Feeling down, depressed, or hopeless 0 0 0 Trouble falling or staying asleep, or sleeping too much 0 0 0 Feeling tired or having little energy 0 0 0 Poor appetite or overeating 0 0 0 Feeling bad about yourself - or that you are a failure or have let yourself or your family down 0 0 0 Trouble concentrating on things, such as reading the newspaper or watching television 0 0 0 Moving or speaking so slowly that other people could have noticed. Or the opposite - being so fidgety or restless that you have been moving around a lot more than usual 0 0 0 Thoughts that you would be better off , or of hurting yourself in some way 0 0 0 Total Score 0 0 0 If you checked off any problems, how difficult have these problems made it for you to do your work, take care of things at home, or get along with other people? Not difficult at all Not difficult at all Not difficult at all PHQ-15: No data to display VLADIMIR-7: No data to display PTSD: No data to display [place]: No data to display NATTY-10: No data to display Past Medical, Family, Surgical, and Social History Update: The following portions of the patient's history were reviewed and updated as appropriate: allergies, current medications, past family history, past medical history, past social history, past surgical history and problem list. Past Medical History: Diagnosis Date Anxiety Chronic kidney disease Dementia (CMS-HCC) Hypertension Family History Problem Relation Age of Onset No Known Problems Father No Known Problems Mother No Known Problems Brother No Known Problems Sister Past Surgical History: Procedure Laterality Date BACK SURGERY CHOLECYSTECTOMY removal. Current Outpatient Medications Medication Sig Dispense Refill amLODIPine (NORVASC) 10 mg tablet Take 1 tablet (10 mg total) by mouth. aspirin 81 mg chewable tablet Chew 1 tablet (81 mg total) and swallow in the morning for 180 days. 90 tablet 1 carbidopa-levodopa (SINEMET CR) 25-100 mg per CR tablet Take 1 tablet by mouth 3 (three) times a day. Please take at 0600/1200/1800, 30-45 mins before meals 270 tablet 1 carbidopa-levodopa (SINEMET) 25-100 mg per tablet Take 1 tablet by mouth 3 (three) times a day. Please take at 0600/1200/1800 30-45 mins after meals 270 tablet 1 donepeziL (ARICEPT) 10 mg tablet Take 1 tablet (10 mg total) by mouth in the morning. hydrALAZINE (APRESOLINE) 10 mg tablet Take 1 tablet (10 mg total) by mouth. KLOR-CON M20 20 mEq CR tablet Take 1 tablet (20 mEq total) by mouth in the morning and 1 tablet (20 mEq total) in the evening. Take before meals. baclofen (LIORESAL) 10 mg tablet Take 1 tablet (10 mg total) by mouth nightly as needed for muscle spasms. 30 tablet 3 metoprolol tartrate (LOPRESSOR) 25 mg tablet Take 1 tablet (25 mg total) by mouth in the morning and 1 tablet (25 mg total) before bedtime. (Patient not taking: Reported on 09/18/2023) No current facility-administered medications for this visit. (All medications reviewed and updated by provider since last office visit or hospitalization) Tobacco History: Social History Tobacco Use Smoking Status Never Smokeless Tobacco Never (If patient a smoker, smoking cessation counseling offered) Social History: Social History Substance and Sexual Activity Alcohol Use Not Currently Review of Systems: 14 systems were reviewed and negative except those mentioned in HPI . Physical Exam: Vitals: Vitals: 09/18/23 1333 BP: 121/79 Pulse: 61 Weight: 68 kg (150 lb) Height: 170.2 cm (5' 7 ) Patient consulted for exercise: encouragement to exercise. Neurological Physical Exam: Physical Exam: Mental Status: Orientation: Oriented to person and place. Oriented to month and year but not to day or date.. Level of consciousness: Follows commands: 3 step. Knowledge: good. Memory: Delayed recall 0/5. Attention span is normal. Concentration is abnormal. Speech: Normal quality and patient has normal vocabulary. Language: Normal. Cranial Nerves: CN II: Visual miguel full to confrontation. CN II - Visual Acuity: Normal with correction in right eye and left eye. Optic Discs: No pallor/atrophy on right or left. No edema on right or left. Pupils: Relative afferent pupillary defect absent. CN III, IV, : CN III: PERRLA, EOM full, no nystagmus, no ptosis and no DIPIKA. Pupils: right pupil regular and left pupil regular. Pupil Size: right = left. Pupil reactivity: Right and left pupil constrict(s) to light. Right and left pupil appropriately dilates in dark. Consensual response intact on right and Consensual response intact on left. CN V: Facial sensation intact to pin. CN VII: Facial expression fully symmetric. CN VIII: CN VIII normal. Hearing intact. CN IX, X: CN IX and X normal. CN XI: CN XI normal. CN XII: CN XII normal. Tongue protrudes midline. Motor: Muscle Bulk: Normal. Muscle Tone: Right upper extremity cogwheel rigidity present. Left upper extremity muscle tone normal.Right lower extremity muscle tone normal.Left lower extremity muscle tone normal. Power: Normal strength throughout. Right bradykinesia and left bradykinesia. Pronator drift: None. Muscle Strength: Mild bradykinesia, left worse than right.. Fasciculations: No Myotonia: No myotonia. Sensory: Light touch normal in upper and lower extremities. Vibration normal in upper and lower extremities. Proprioception: Normal in upper and lower extremities. Pinprick normal in upper and lower extremities. Gait/Coord/DTR: Abnormal Gait: stooped and abnormal gait (Decreased associated arm movements, turned sequentially.. Decreased pace of walking, normal stride length.). Able to heel walk on right, able to heel walk on left, and . Unable to tandem walk. Coordination: Normal. Tremor: Absent. Involuntary Movements: Negative findings: asterixis, athetosis, blepharospasm, dystonia, flailing, grimacing or opisthotonos. Myoclonus: None. Infrequent twitching of the lower part of the face, lips.. General Exam: Constitutional: Well-developed, well-nourished . Eyes: Normal appearance, no icterus. Pulmonary: Effort: Pulmonary effort is normal. Data Reviewed: Lab Results Component Value Date CREATININE 1.80 (H) 11/18/2022 BUN 27 11/18/2022 K 4.4 11/20/2022 CL 98 11/18/2022 CO2 24 11/18/2022 Lab Results Component Value Date WBC 9.7 11/18/2022 HGB 12.6 (L) 11/18/2022 HCT 38.6 (L) 11/18/2022 MCV 87 11/18/2022 PLT 616 (H) 11/18/2022 Lab Results Component Value Date ALT 9 11/18/2022 AST 24 11/18/2022 ALKPHOS 123 11/18/2022 No results found for: INR , PROTIME No results found for: PTT Diagnostic Study Results: CT No results found. CTA No results found. MRI No results found. Angio No results found. Assessment and Plan: Efraín was seen today for follow-up. Diagnoses and all orders for this visit: Parkinsonism, unspecified Parkinsonism type Tardive dyskinesia Mild dementia with agitation, unspecified dementia type (CMS-HCC) Gait instability Urinary retention Spondylosis of cervical spine Sundowning Chronic bilateral low back pain, unspecified whether sciatica present - baclofen (LIORESAL) 10 mg tablet; Take 1 tablet (10 mg total) by mouth nightly as needed for muscle spasms. Insomnia due to medical condition The patient is a 73-year-old right-handed male, with past medical history of hypertension, CKD 3b, dementia with history of sundowning, anxiety, who was initially admitted at [facility] in October 2021 with complaints of subacute left lower extremity weakness and gait instability. Subsequently was seen by the tele Stroke Service and had a stroke workup which was unremarkable. Was seen subsequently seen by the tele neurology service, and then had MRI of the entire spine which showed multilevel degenerative changes, however nothing that required urgent neurosurgical intervention. Was then transferred to [facility] for further evaluation and management. Was admitted under the primary neurology service([place]), where he was identified to have signs of extrapyramidal symptoms(parkinsonism with mild bradykinesia L>R, involuntary lower facial twitching consistent with tardive dyskinesias). On initial evaluation at [facility], was not identified to have any lower extremity weakness or other focal neurological deficits. He was on doxepin and Zyprexa, which were started about 6 months ago for behavioral disturbances and agitation. Those medications were discontinued during the hospitalization. Was eventually started on Sinemet IR and seemed to respond with improved gait and decreased facial movements. Was eventually started on Sinemet CR as well. Was then discharged home with home health care services. Patient was last seen in clinic in February 2023. Since that time, he denies having any lower facial twitching. Currently ambulating without any assistive devices. NM HERVE scan from December, very subtle and early changes of Parkinson's syndrome particularly within the posterior left lentiform nucleus. Interval history 09/18/2023: - reports gait, ambulatory function has been stable since the last clinic visit. Currently ambulating without any assistive devices. Has not had any falls since the last clinic visit. - memory and forgetfulness have been stable since last clinic visit. Has not had hallucinations, behavioral disturbances, fluctuation in the consciousness, mental status changes over the last few months. - is currently living with family, appears to be fairly independent with ADLs and IADLs. - has not had any facial twitching since the last clinic visit. - currently taking Sinemet IR 25-100 mg tablet and Sinemet CR 25-100 mg tablet--> 1 tab of each t.i.d.(6 am, 12 pm, 6 pm, usually 30- 60 minutes before snacks/meals). Denies any adverse events related to Sinemet intake. - denies tremors, constipation, dream enactment behavior, dysphagia, dysarthria, language impairment, fusion states, loss of consciousness, falls, fever, palpitations, constitutional symptoms, rash, language impairment, behavioral disturbances since being discharged from the hospital. Current neurological examination continues to show evidence of mild bradykinesia, left worse than right, mild cogwheel rigidity the right upper extremity, mild gait instability, poor delayed recall, poor concentration , previously MOCA 18--> exam has been stable/unchanged since the last clinic visit Clinical impression: - Parkinsonism--> primary vs secondary?? NM HERVE scan from December,, shows very subtle abnormalities with slightly decreased uptake in the posterior left lentiform nucleus. - mild dementia with behavioral disturbances--> patient has had history of visual hallucinations in the past however those were possibly related to delirium/metabolic disturbances. Has not had visual hallucinations for more than 12 months now. Does not appear to have history of fluctuating level of consciousness or alertness. Given the cognitive decline, and signs of Parkinsonism, we could be dealing with possible Lewy Body Dementia. - Gait instability--> stable since last clinic visit - tardive dyskinesia--> resolved\ - Chronic bilateral lower back pain, patient reports recent exacerbation of pain symptoms associated with frequent severe muscle spasms affecting the lower back. Frequently makes it difficult to initiate sleep Recommendations: - continue current regimen of Sinemet IR and CR. - will consider repeating NM HERVE scan in 2023 - continue PT for gait and balance training -after discussing pros and cons, will give a trial of baclofen 10 mg q.h.s. p.r.n. for symptomatic relief of muscle spasms associated with lower back pain - continue Aricept 10 mg q.h.s. - supportive care, later follow-up with PCP. - return to clinic in 6 months. Problem List Nervous and Auditory Mild dementia with agitation (CMS-HCC) Relevant Medications donepeziL (ARICEPT) 10 mg tablet Parkinsonism - Primary Relevant Medications donepeziL (ARICEPT) 10 mg tablet Tardive dyskinesia Relevant Medications donepeziL (ARICEPT) 10 mg tablet Musculoskeletal and Integument Spondylosis of cervical spine Genitourinary Urinary retention Relevant Medications hydrALAZINE (APRESOLINE) 10 mg tablet Other Gait instability Sundowning Follow-up: 6 months. Alyssa Camacho MD Vascular Neurologist [facility] Neurology Clinic # [phone] I have personally participated in the care of this patient. I have reviewed all pertinent clinical information, including history, physical exam, investigation results and plan. I spent 30 minutes caring for this patient, and more than 50% of that time was spent on counseling the patient/dispatch clerk/care team and coordinating care. Important Notice: This note was created with the assistance of a speech recognition program. While intending to generate a timely document that accurately reflects the content of the encounter, no guarantee can be provided that every grammatical or spelling mistake has been or will be identified or corrected. Thank you for your understanding. documented in this encounter [facility] 09-14-2023 Note [facility] Consult Note Reason for visit: Bradycardia/ Syncope, s/p loop 09/14/23: Patient is here for follow-up s/p loop implant and wound check Has been feeling with no complaints of chest pain, shortness of breath, LUEVANO, aches, chills, fever, palpitations Wound is healing well, there is a big scab but no drainage erythema or swelling Tolerating abx well 07/21/23 dr. Chaparro HPI: Efraín Johnson is a 73 y.o. with a past medical history of hypertension bradycardia and CKD was previously admitted at [facility] for sinus bradycardia. At that time his heart rate was noted to be in the 50s but he was asymptomatic and subsequently discharged with an event monitor. During that admission he was noted to be in SHERYL and was noted to be dehydrated. Evaluation at that time with neurology and an MRI that was performed to rule out stroke patient patient endorsed problem with wearing the event monitor impactions. And evaluation of the showed sinus bradycardia with evidence of second-degree AV block type I. He was asymptomatic as most of them are nocturnal. Subsequently he was started on metoprolol tartrate 25 mg by his PCP. he was seen by Robin GREENWOOD who had ordered a treadmill stress test to look for exercise-induced AV block. Metoprolol was discontinued at last apt in March 2023 by Robin Camarena DNP. Denies chest pain and palpitations. Admits to dizziness with 3 recent falls. Think he's had 1 syncopal episode. states he gets very SOB and diaphoretic while eating, and with minimal exertion. Patient states he had the first episode in spring while he was cutting grass with a sudden onset of syncope and he regained consciousness fairly soon. he had 2 other episodes also which was similar and on the second episode of syncope he actually soiled himself. he states that when he wore the monitor he did not have any episodes of syncope. blood pressure reading today is in the 150s and his blood pressure readings are elevated since the metoprolol was stopped Treadmill stress test that was done on 04/13/2023 showed his resting heart rate was 76 bpm achieving 127 with peak activity representing 85% of maximal predicted rate. there was an appropriate response of blood pressure to the exercise. there was presence of occasional PVCs noted during exercise but no ischemia was seen. this ruled out chronotropic incompetence. Review of Systems Constitutional: Positive for diaphoresis and malaise/fatigue. Cardiovascular: Positive for dyspnea on exertion and leg swelling (intermittent). Musculoskeletal: Positive for falls, joint pain, joint swelling and muscle weakness. Neurological: Positive for light-headedness. All other systems reviewed and are negative. Labs 02/10/2023: Hemoglobin 13.2, sodium 143, K2.8, chloride 110, BUN 13, creatinine 1.35, GFR 52 Stress test PMH: Past Medical History: Diagnosis Date Bradycardia Chronic kidney disease Dementia (CMS/HCC) Hypokalemia Hyponatremia Parkinson disease PSH: Past Surgical History: Procedure Laterality Date BACK SURGERY CHOLECYSTECTOMY PROSTATE SURGERY TOE SURGERY SH: Social Determinants of Health Tobacco Use: Medium Risk (04/01/2023) Patient History Smoking Tobacco Use: Former Smokeless Tobacco Use: Never Passive Exposure: Not on file Alcohol Use: Not on file Financial Resource Strain: Not on file Food Insecurity: Not on file Transportation Needs: Not on file Physical Activity: Not on file Stress: Not on file Social Connections: Not on file Intimate Partner Violence: Not on file Depression: Not on file Housing Stability: Not on file Allergies: Allergies Allergen Reactions Penicillins Weight: No weight available Visit Vitals Ht 1.778 m (5' 10 ) BMI 22.53 kg/m??? Smoking Status Former BSA 1.88 m??? Meds: Current Outpatient Medications on File Prior to Visit Medication Sig Dispense Refill amLODIPine (Norvasc) 10 mg tablet Take 1 tablet (10 mg) by mouth once daily as directed. 90 tablet 3 aspirin 81 mg EC tablet Take 81 mg by mouth in the morning. azithromycin (Zithromax) 1 gram powder Take 1 packet by mouth 1 (one) time. azithromycin (Zithromax) 250 mg tablet Take 500 mg by mouth in the morning. carbidopa-levodopa (Sinemet CR) 25-100 mg ER tablet Take 1 tablet by mouth 3 times a day. carbidopa-levodopa (Sinemet) 25-100 mg tablet TAKE 1 TABLET BY MOUTH 3 TIMES DAILY AT 6 AM, 12 PM, AND 6 PM BEFORE MEALS donepezil (Aricept) 10 mg tablet Take 10 mg by mouth in the morning. doxycycline (Vibra-Tabs) 100 mg tablet Take 1 tablet (100 mg) by mouth in the morning and at bedtime for 7 days. Take with a full glass of water and do not lie down for at least 30 minutes after. 14 tablet 0 hydrALAZINE (Apresoline) 10 mg tablet Take 1 tablet (10 mg) by mouth in the morning, at noon, and at bedtime. 270 tablet 3 Klor-Con M20 20 mEq ER tablet Take 20 mEq by mouth in the morning. metoprolol (more content not included)... [facility] 09-14-2023 Note Patient here for wou nd check 4 days s/p loop monitor insertion. [facility] 09-10-2023 Note LOOP IMPLANT PROCEDU RE NOTE DATE OF PROCEDURE: 09/10/23 PERFORMING PHYSICIAN: Dr. Missael Chaparro MELTER SUPERVISOR OXYGEN FURNACE: MERARY INDICATIONS FOR PROCEDURE: 1. Syncope CONSENT: Patient LOCATION: EP lab PROCEDURAL SEDATION: None FLUOROSCOPY TIME: 0min PREPARATION: Preoperative antibiotics was administered. EBL:5cc SPECIMEN REMOVED: None PROCEDURES PERFORMED: 1. LOOP implant PROCEDURE NOTE: Patient was brought to the EP lab in the post absorptive state. A procedural pause was performed verifying the patient, the procedure. Sterile prep and drape were performed over the left precordium and anesthesia with 1% lidocaine was followed by a small incision was made in the 3rd intercostal space near the sternum on the left using the Fara tool. The loop recorder was then injected subcutaneously and noted to have good sensing parameters. Technical details of the device as noted below. The skin was then closed with 3-0 absorbable monofilament suture and glue applied to hold the edges together. Tegaderm was applied to cover the wound. The patient appeared to tolerate the procedure well and was returned to the room in stable condition. No complications were immediately observed. Sensin.2mV. IMPRESSION: Successful placement of LOOP implant with excellent sensing parameters. COMPLICATIONS: None RECOMMENDATIONS: 1. Occlusive dressing to be changed after 7 days. 2. Do not wet the incision. Missael Chaparro MD Cardiac Electrophysiology. [facility] 09-10-2023 Note Patient: Efraín correa Procedure Information Date/Time: 09/10/23 1200 Procedure: Loop insertion Location: [facility] / [facility] (Cath) Providers: Missael Chaparro MD Clinical information reviewed: Allergies Meds Physical Exam Airway Mallampati: III Cardiovascular Rhythm: regular Rate: normal Dental Pulmonary Breath sounds clear to auscultation Abdominal Abdomen: soft Anesthesia Plan ASA 3 CSE (Conscious Sedation) intravenous induction Anesthetic plan and risks discussed with patient. Use of blood products discussed with patient who consented to blood products. Plan discussed with attending. Additional Equipment Requests [facility] 07-21-2023 Note [facility] Electrophysiology Consult Note Reason for visit: Bradycardia/ Syncope HPI: Efraín Johnson is a 73 y.o. with a past medical history of hypertension bradycardia and CKD was previously admitted at [facility] for sinus bradycardia. At that time his heart rate was noted to be in the 50s but he was asymptomatic and subsequently discharged with an event monitor. During that admission he was noted to be in SHERYL and was noted to be dehydrated. Evaluation at that time with neurology and an MRI that was performed to rule out stroke patient patient endorsed problem with wearing the event monitor impactions. And evaluation of the showed sinus bradycardia with evidence of second-degree AV block type I. He was asymptomatic as most of them are nocturnal. Subsequently he was started on metoprolol tartrate 25 mg by his PCP. he was seen by Robin GERENWOOD who had ordered a treadmill stress test to look for exercise-induced AV block. Metoprolol was discontinued at last apt in March 2023 by Robin Camarena DNP. Denies chest pain and palpitations. Admits to dizziness with 3 recent falls. Think he's had 1 syncopal episode. states he gets very SOB and diaphoretic while eating, and with minimal exertion. Patient states he had the first episode in spring while he was cutting grass with a sudden onset of syncope and he regained consciousness fairly soon. he had 2 other episodes also which was similar and on the second episode of syncope he actually soiled himself. he states that when he wore the monitor he did not have any episodes of syncope. blood pressure reading today is in the 150s and his blood pressure readings are elevated since the metoprolol was stopped Treadmill stress test that was done on 04/13/2023 showed his resting heart rate was 76 bpm achieving 127 with peak activity representing 85% of maximal predicted rate. there was an appropriate response of blood pressure to the exercise. there was presence of occasional PVCs noted during exercise but no ischemia was seen. this ruled out chronotropic incompetence. Review of Systems Constitutional: Positive for diaphoresis and malaise/fatigue. Cardiovascular: Positive for dyspnea on exertion and leg swelling (intermittent). Musculoskeletal: Positive for falls, joint pain, joint swelling and muscle weakness. Neurological: Positive for light-headedness. All other systems reviewed and are negative. Labs 02/10/2023: Hemoglobin 13.2, sodium 143, K2.8, chloride 110, BUN 13, creatinine 1.35, GFR 52 Stress test PMH: Past Medical History: Diagnosis Date Bradycardia Chronic kidney disease Dementia (CMS/HCC) Hypokalemia Hyponatremia Parkinson disease (CMS/HCC) PSH: Past Surgical History: Procedure Laterality Date BACK SURGERY CHOLECYSTECTOMY PROSTATE SURGERY TOE SURGERY SH: Social Determinants of Health Tobacco Use: Medium Risk (04/01/2023) Patient History Smoking Tobacco Use: Former Smokeless Tobacco Use: Never Passive Exposure: Not on file Alcohol Use: Not on file Financial Resource Strain: Not on file Food Insecurity: Not on file Transportation Needs: Not on file Physical Activity: Not on file Stress: Not on file Social Connections: Not on file Intimate Partner Violence: Not on file Depression: Not on file Housing Stability: Not on file Allergies: Allergies Allergen Reactions Penicillins Weight: 71.2kg Visit Vitals BP (!) 150/104 (BP Location: Left arm, Patient Position: Sitting) Pulse 70 Ht 1.778 m (5' 10 ) Wt 71.2 kg (157 lb) SpO2 98% BMI 22.53 kg/m??? Smoking Status Former BSA 1.88 m??? Meds: Current Outpatient Medications on File Prior to Visit Medication Sig Dispense Refill aspirin 81 mg chewable tablet Chew 81 mg in the morning. carbidopa-levodopa (Sinemet CR) 25-100 mg ER tablet Take 1 tablet by mouth 3 times a day. carbidopa-levodopa (Sinemet) 25-100 mg tablet TAKE 1 TABLET BY MOUTH 3 TIMES DAILY AT 6 AM, 12 PM, AND 6 PM BEFORE MEALS donepezil (Aricept) 10 mg tablet Take 10 mg by mouth in the morning. Klor-Con M20 20 mEq ER tablet Take 20 mEq by mouth in the morning. metoprolol tartrate (Lopressor) 25 mg tablet TAKE 1 TABLET BY MOUTH TWICE A DAY WITH FOOD FOR 30 DAYS No current facility-administered medications on file prior to visit. Physical Exam: Constitutional General Appearance: well-nourished, well-developed, appears stated age Level of Distress: comfortable Psychiatric Mental Status: alert, normal affect Orientation: oriented to time, place, and person Insight: good judgement Eyes Lids and Conjunctivae: non-injected, no xanthelasma ENMT Ears: no lesions on external ear Nose: no lesions on external nose Oropharynx: no cyanosis, no pallor Neck Neck: supple, trachea midline Carotid Arteries: bilateral normal upstroke, no bruits Jugular Veins: normal jugular venous pressure Thyroid: not enlarged Lungs Respiratory Effort: unlabored Chest (more content not included)... [facility] 05-12-2023 Note Chief Complaint consultation for diverticulitis HPI Staff 73 year old male presents on consultation from Dr. Mike for diverticulitis. Presented to [place] ED 04/04 with complaint of rectal bleeding. States rectal bleeding spontaneously resolved. Denies abdominal pain or fever at time of rectal bleeding. CT with diverticulitis. Never had diverticulitis diagnoses prior to this. Last colonoscopy completed 07/2014 with internal hemorrhoids. Currently, patient denies abdominal or rectal pain. No rectal bleeding or change in bowel habits. Denies nausea or vomiting. No unexplained weight loss. History of Present Illness 73 yo male with h/o htn, hyperlipidemia, COPD, Parkinson's disease, dementia, CKD, referred for episodes of rectal bleeding; seen in ED and abd/pelvic ct scan read as possible mild sigmoid diverticulitis; no significant inflammation noted on review of images; treated with antibiotics, no further bleeding; no significant abd pain at that time, did have some rectal irritation/pressure; no N/V; no fevers; abd operations significant for cholecystectomy, had brachytherapy to prostate for cancer 3 years ago; last colonoscopy over 8 years ago, reportedly wnl; on baby asa daily, no NSAIDs, no SBE prophylaxis, no fmhx of GI malignancy or IBD; no tobacco use. Review of Systems PHQ Score Initial Depression Screen Score: 0 ROS - Provider Constitutional: no fever, no sweats, no weight loss. Eyes: yes glasses, no blurred vision, no visual loss. ENMT: no dentures, no hoarseness, no swallowing difficulties, no hearing loss, no ear infection(s), no nose bleeds. Cardiovascular: normal blood pressure, no chest pain, regular heartbeat, no heart murmur. Respiratory: no shortness of breath, no cough, no asthma, no wheezing. Gastrointestinal: no nausea, no vomiting, no diarrhea, no constipation, no blood in stool, no change in bowel habits, no abdominal pain, no hepatitis. Genitourinary: no kidney stones, no urine infection, no dysuria. Musculoskeletal: no pain, no weakness. Skin: no changing moles, no rash, no skin lumps. Neurologic: no seizures, no epilepsy, no headache. Psychiatric: no emotional or psychiatric problem. Heme/Lymph: no bleeding problems, no anemia, no blood clots, no transfusions. Allergy/Immunologic: no swollen lymph nodes/glands, no IV drug abuse. Other: Additional ROS info: Except as noted in the above Review of Systems and in the History of Present Illness, all other systems have been reviewed and are negative or noncontributory. Physical Exam Vitals & Measurements HR: 70(Peripheral) RR: 16 BP: 120/74 HT: 66 in HT: 167.6 cm WT: 83.5 kg WT: 183.7 lb BMI: 29.73 HEENT: normal conjunctiva, sclera clear, no scleral icterus, EOM intact, PERRLA, oral mucosa moist without lesions. Neck: trachea midline, no mass, symmetric, no thyromegaly or nodules, no adenopathy Respiratory: lungs CTA, respirations non labored. Cardiovascular: regular rate and rhythm, no murmur, no pedal edema or varicosities. Gastrointestinal: soft, non distended, no tenderness, no masses, no palpable hernias, diastasis recti no, no hepatosplenomegaly; normal bs Lymphatic: no cervical adenopathy, no supraclavicular adenopathy. Musculoskeletal: abnormal gait, digits and nails without infection, nodes, cyanosis, clubbing. Skin: no rashes, no lesions, no ulcers, no subcutaneous nodules, induration. Psychiatric/Neuro: oriented to time, place, person, judgement normal, affect appropriate for age, insight intact, no focal deficits. Tests: labs reviewed, x-rays reviewed, review of old records completed, Discussed surgical options, risks, and possible complications with patient. Assessment/Plan 1. Rectal bleeding (K62.5: Hemorrhage of anus and rectum) plan colonoscopy under anesthesia for further evaluation, informed consent obtained. 2. Abnormal abdominal CT scan (R93.5: Abnormal findings on diagnostic imaging of other abdominal regions, including retroperitoneum) see # 1 Follow-up No qualifying data available Problem List/Past Medical History Ongoing Abnormal abdominal CT scan Acute biliary pancreatitis with uninfected necrosis Adenocarcinoma of prostate BMI 29.0-29.9,adult Bradycardia Cervical spondylosis Chronic cholecystitis with calculus Chronic foot ulcer Chronic obstructive pulmonary disease CKD (chronic kidney disease) Dementia Elevated PSA GERD (gastroesophageal reflux disease) Gout HTN (hypertension) Hyperlipidemia Hyperuricemia Hypokalemia Infected sebaceous cyst Lumbar disc disease with radiculopathy Metabolic encephalopathy Overweight Parkinson disease Rectal bleeding Right foot drop Sebaceous cyst Symptomatic cholelithiasis Tardive dyskinesia Historical Epidermoid cyst of skin of back Procedure/Surgical History Excisional biopsy (09/19/2020), Laparoscopic cholecystectomy (06/20/2020), Brachytherapy of prostate using fluoroscopic guidance (09/28/2019), Lumbar discectomy ( (more content not included)... [facility] Comment on above: Result Comment: Elec tronically Signed By: GLENDA ARVIZU, Baljit Estrada\Date and Time Signed: 05/12/23 17:27 EDT 04-01-2023 Note - sinus bradycardia noted on event monitor with heart rates as low in the 40s - some bradycardic events were not nocturnal although patient was asymptomatic - second-degree type I block found on event monitor - he does have cognitive issues at baseline with mild dementia so it is difficult to rely on all of his answers - we will discontinue metoprolol tartrate 25 mg twice daily and order treadmill test for AV block - ECG today shows [facility] 04-01-2023 Note -being seen by neurology [facility] 04-01-2023 Note [facility] Consult Note Reason for visit: [facility] follow-up, bradycardia, holter monitor , new to EP HPI: Efraín Johnson is a 73 y.o. year old with past medical history of Hypertension, bradycardia, CKD wth baseline appearing around Cr1.5, anemia. Patient was seen in the [facility] for her sinus bradycardia. He was having heart rate ranging in the 50s but was asymptomatic and was discharged with event monitor. He was also dealing with an SHERYL and was found to be dehydrated, hypokalemic, hyponatremic. He was seen by neurology for lower extremity weakness who recommended MRI of C-spine, no concern for stroke. He was seen in [place] ER 11/11/2022 for weakness and difficulty getting out of bed and complaints of chronic lower extremity pain, at that time his heart rate was in the 60s and there was no concern for bradycardia. Patient had an event monitor on and had trouble with the patches and wore for about 7 days. Event monitor was shown sinus bradycardia and second-degree AV block type I. some of his bradycardic events were nocturnal but not all were. PCP restarted metoprolol tartrate 25 mg twice daily ,patient's has had no signs or symptoms of bradycardia. Labs 02/10/2023: Hemoglobin 13.2, sodium 143, K2.8, chloride 110, BUN 13, creatinine 1.35, GFR 52 patient accompanied by and daughter. Patient did have some confused conversation but was alert to self and place. He denies any symptoms of chest pain, shortness of breath, lightheadedness, dizziness. He has had some mild fatigue progressed over the last year. PMH: No past medical history on file. PSH: No past surgical history on file. SH: Social Determinants of Health Tobacco Use: Not on file Alcohol Use: Not on file Financial Resource Strain: Not on file Food Insecurity: Not on file Transportation Needs: Not on file Physical Activity: Not on file Stress: Not on file Social Connections: Not on file Intimate Partner Violence: Not on file Depression: Not on file Housing Stability: Not on file Allergies: Allergies Allergen Reactions Penicillins Weight: 66.2kg Visit Vitals Ht 1.778 m (5' 10 ) Wt 66.2 kg (146 lb) BMI 20.95 kg/m??? BSA 1.81 m??? Meds: Current Outpatient Medications on File Prior to Visit Medication Sig Dispense Refill aspirin 81 mg chewable tablet Chew 81 mg in the morning. carbidopa-levodopa (Sinemet CR) 25-100 mg ER tablet Take 1 tablet by mouth 3 times a day. carbidopa-levodopa (Sinemet) 25-100 mg tablet TAKE 1 TABLET BY MOUTH 3 TIMES DAILY AT 6 AM, 12 PM, AND 6 PM BEFORE MEALS Klor-Con M20 20 mEq ER tablet TAKE 1 TABLET BY MOUTH TWICE A DAY BEFORE MEALS metoprolol tartrate (Lopressor) 25 mg tablet TAKE 1 TABLET BY MOUTH TWICE A DAY WITH FOOD FOR 30 DAYS No current facility-administered medications on file prior to visit. ROS: Cardio Basic Cardiovascular Symptoms: no lightheadedness, no leg edema, no syncope, no orthopnea, no PND, no claudication, Constitutional Constitutional: no fever, no night sweats, no significant weight gain, no significant weight loss, no exercise intolerance Eyes Eyes: no dry eyes, no irritation, no vision change ENMT Ears: no difficulty hearing, no ear pain Nose: no frequent nosebleeds, Mouth/Throat: no sore throat, no bleeding gums, no snoring, no dry mouth, no mouth ulcers, no oral abnormalities, no teeth problems Respiratory Respiratory: no cough, no wheezing, no coughing up blood, no sleep apnea Musculoskeletal Musculoskeletal: no muscle aches, no muscle weakness, joint pain+, no back pain, no swelling in the extremities Integumentary Skin no rash, no ulcer, no varicosities, no discoloration, no pruritus Neurologic Neurologic: no loss of consciousness, no weakness, no numbness, no seizures, no dizziness, no headaches Psychiatric Psych: no depression, feeling safe in relationship, no alcohol abuse, Hematologic/Lymphatic Hematologic/Lymphatic no swollen glands, no bruising Physical Exam: Constitutional General Appearance: well-nourished, well-developed, appears stated age Level of Distress: comfortable Psychiatric Mental Status: alert, normal affect Orientation: oriented to time, place, and person Insight: good judgement Eyes Lids and Conjunctivae: non-injected, no xanthelasma ENMT Ears: no lesions on external ear Nose: no lesions on external nose Oropharynx: no cyanosis, no pallor Neck Neck: supple, trachea midline Carotid Arteries: bilateral normal upstroke, no bruits Jugular Veins: normal jugular venous pressure Thyroid: not enlarged Lungs Respiratory Effort: unlabored Chest Exam: normal curvature, no thoracic deformity Auscultation: clear, no wheezing, no rales, no rhonchi Cardiovascular Rate And Rhythm: regular Heart Sounds: normal S1, normal s2, no gallop Systolic Murmur: not heard Diastolic Murmur: not heard Extremities: no cyanosis, no edema, no p (more content not included)... [facility] 04-01-2023 Note Patient here for [facility] follow up for bradycardia. He was seen as inpatient consult on 02/[address] Argueta. He wore Holter monitor upon discharge. Metoprolol was stopped, and then resumed after Dr. Mike got Holter results. Review of Systems Constitutional: Positive for malaise/fatigue. Cardiovascular: Positive for leg swelling (intermittent). Musculoskeletal: Positive for muscle weakness. All other systems reviewed and are negative. [facility] Evaluation + Plan note No data available for this section General Surgery [place] Evaluation note Diagnosis Parkinsonism, unspecified Parkinsonism type- Primary Tardive dyskinesia Subacute dyskinesia due to drugs Mild dementia with agitation, unspecified dementia type ([facility]) Gait instability Abnormality of gait Urinary retention Unspecified retention of urine Spondylosis of cervical spine Sundowning Chronic bilateral low back pain, unspecified whether sciatica present Insomnia due to medical condition Organic insomnia, unspecified [facility] No data available for this section General Surgery [place] InstructionsNot on filedocumented in this encounter [facility] System[facility] note No data available for this section General Surgery [place] Summary Purpose Family History No Family History Records FoundNo Family History Records FoundNo Family History Records Found Advance Directives Documents on File Type Date Recorded Patient Surveyor Geodetic Expl anation Living Will 09/18/2023 1:20 PM POA/Livin g Will 12/26/22 Additional Source Comments (unrecognized sect ion and content) No Status Records FoundNo Status Records FoundNo Status Records Found INFORMATION SOURCE (unrecogn ized section and content) DATE CREATED AUTHOR 02/11/2023 [facility] DATE CREATED AUTHOR AUTHOR'S ORGANIZ ATION 06/02/2023 [facility] DATE CREATED AUTHOR AUTHOR'S ORGANIZ ATION 09/19/2023 [facility] Patient Care team informatio n (unrecognized section and content) Head Sawyer Automatic Relationship Specialty Start Date End Date Librado Mike MD [address] [id number] PCP - General Family Medicine 07/03/20 Reason for Visit (unrecogniz ed section and content) Reason Comments Follow-up Patient is here toda y for a 6 month follow up on Parkinsonism, unspecified Parkinsonism type. FOR RECORDS PERTAINING TO PATIENTS WHO ARE OR HAVE BEEN ENROLLED IN A CHEMICAL DEPENDENCY/SUBSTANCEABUSE PROGRAM, SOME INFORMATION MAY BE OMITTED. This clinical summary was aggregated from multiple sources. Caution should be exercised in using it in the provision of clinical care. This summary normalizes information from multiple sources, and as a consequence, information in this document may materially change the coding, format and clinical context of patient data. In addition, data may be omitted in some cases. CLINICAL DECISIONS SHOULD BE BASED ON THE PRIMARY CLINICAL RECORDS. [facility] [employer] [facility] provides no warranty or guarantee of the accuracy or completeness of information in this document.
[2023-10-03 09:40] LABS: Basophils Percent Auto 0.1 % (0.2-2.0); Hematocrit 49.1 % (42.0-54.0); Hemoglobin 15.6 g/dL (14.0-18.0); Immature Granulocytes Pct Auto 0.6 % (0.0-0.5); Lymphocytes Absolute Auto 0.9 10^3/uL (1.2-3.8); Lymphocytes Percent Auto 5.4 % (20.5-60.0); Mean Corpuscular HGB Conc 31.8 g/dL (29.9-35.2); Mean Corpuscular Hemoglobin 27.9 pg (25.9-34.0); Mean Corpuscular Volume 87.7 fL (80.0-94.0); Monocytes Absolute Auto 0.7 10^3/uL (0.3-0.8); Monocytes Percent Auto 3.7 % (1.7-12.0); Neutrophils Absolute Auto 15.9 10^3/uL (1.4-6.5); Neutrophils Percent Auto 90.2 % (43.0-75.0); Platelet Count 345 10^3/uL (150-450); Red Cell Distribution Width 14.6 % (11.0-15.0); White Blood Count 17.6 10^3/uL (4.0-11.0)
[2023-10-03 12:17] LABS: Alanine Aminotransferase 9 U/L (16-63); Albumin Level 3.8 g/dL (3.4-5.0); Alkaline Phosphatase 86 U/L (46-116); Anion Gap 16.2; Aspartate Amino Transferase 12 U/L (15-37); BUN Creatinine Ratio 19.3; Bilirubin Total 1.2 mg/dL (0.2-1.0); Calcium 9.2 mg/dL (8.5-10.1); Chloride 99 mmol/L (98-107); Estimated GFR (African America 45 (>=60); Estimated GFR (Non-African Ame 37 (>=60); Globulin 3.9 g/dL; Glucose 97 mg/dL (74-106); Potassium 4.2 mmol/L (3.5-5.1); Sodium 134 mmol/L (136-145); Total Protein 7.7 g/dL (6.4-8.2); Uric Acid 6.8 mg/dL (3.5-7.2)
[2023-10-03 12:37] LABS: Bilirubin Urine NEGATIVE (NEGATIVE); Blood Urine NEGATIVE (NEGATIVE); Clarity Urine CLEAR (CLEAR); Color Urine LT. YELLOW (YELLOW); Glucose Urine UA NEGATIVE (NEGATIVE); Ketones Urine NEGATIVE (NEGATIVE); Leukocyte Esterase Urine NEGATIVE (NEGATIVE); Nitrite Urine NEGATIVE (NEGATIVE); Protein Urine NEGATIVE (NEG/TRACE); Specific Gravity Urine <=1.005 (1.005-1.025); Urobilinogen Urine 0.2 EU/dL (0.2-1.0); pH Urine 5.5 (5.0-9.0)
[2023-10-03 12:47] LABS: Bacteria Urine TRACE #/HPF (NONE SEEN); Cast Seen? NONE SEEN #/LPF (NONE SEEN); Crystals Seen? None Seen #/HPF (None Seen); Mucus Urine NONE SEEN (NONE SEEN); RBC Urine 0-2 #/HPF (0-2); Squamous Epithelial Cell Urine NONE SEEN #/LPF (NONE/RARE); WBC Urine 0-2 #/HPF (NONE SEEN)
[2023-10-03 13:07] LABS: Creatinine Urine Random 18.78 mg/dL (20.00-300.00); Microalbum Creatinine Ratio Ur 69.2 mg/g (0.0-29.9); Microalbumin Urine Random <1.3 mg/dL (<=30.0)
[2023-10-04 08:09] LABS: Complement C3, Serum 152 mg/dL (82-167); Complement C4, Serum 37 mg/dL (12-38)
[2023-10-04 12:08] LABS: PTH, Intact 93 pg/mL (15-65)
[2023-10-05 16:09] LABS: Complement, Total (CH50) 58 U/mL (>41); Immunoglobulin A, Qn, Serum 198 mg/dL (61-437); Immunoglobulin G, Qn, Serum 693 mg/dL (603-1613); Immunoglobulin M, Qn, Serum 172 mg/dL (15-143)
== END 2023-10-03 08:50 | disposition home or self-care (01) ==
LOC: US 08:49
PROVIDERS: PCP Family Medicine
DX: N18.30 Chronic kidney disease, stage 3 unspecified (principal); Q61.02 Congenital multiple renal cysts
CPT/HCPCS: 36415; 76775; 80053; 81001; 82043; 82306; 82570; 83970; 84156; 84166; 84550; 85025; 86160; 86162; 86335

== ENCOUNTER 2024-02-12 08:38 | Outpatient (OUT) | payer MEDICARE, SELFPAY ==
--- OUTSIDE RECORDS SUMMARY | 2024-02-12 09:02 | XMS_ITS | CCD ---
Author Organization [employer] Care Team Providers Care Actuarial Intern Name Role Phone DR FABIAN KENNEDY V Consulting Unavailable HIGHLANDER, PETER D Admitting Unavailable HIGHLANDER, PETER D Attending Unavailable HOY ., DR PAVON Primary Care Unavailable HIGHLANDER, KIMBERLI D Consulting Unavailable SHAWANDA BLEVINS Consulting Unavailable MALLORY .AMBER Consulting Unavailable GEMBUSJUSTA Consulting Unavailable HOY ., [...] ., DR PAVON Primary Care Unavailable NOÉ ., JOVANI Consulting Unavailable NOÉ ., JOVANI Attending Unavailable NOÉ ., JOVANI Admitting Unavailable HOY ., DR PAVON Primary Care Unavailable HOY ., DR PAVON Primary Care Unavailable DR FABIAN KENNEDY V Consulting Unavailable KRYSTIAN, MANOLO Admitting Unavailable KRYSTIAN, MANOLO Attending Unavailable KRYSTIAN, MANOLO Consulting Unavailable KRYSTIAN, MANOLO Admitting Unavailable KRYSTIAN, MANOLO Attending Unavailable HOY ., DR PAVON Primary Care Unavailable JOSEPH, DR VIC Dennison Consulting Unavailable KRYSTIAN, MANOLO Consulting Unavailable KRYSTIAN, MANOLO Attending Unavailable ALICJA ., DR PAVON Primary Care Unavailable PERRYVILLE, DR FABIAN Guadarrama Consulting Unavailable MANOLO BOLAND Admitting Unavailable MANOLO BOLAND Consulting Unavailable ALICJA ., DR PAVON Primary Care Unavailable WEST, DR FABIAN Guadarrama Consulting Unavailable KIMBERLI RAIN Admitting Unavailable HIGHLANDER, KIMBERLI Narvaez Attending Unavailable HIGHLKIMBERLI ALCANTARA Consulting Unavailable ALICJA ., DR PAVON Primary Care Unavailable HOConsuelo ., DR PAVON Admitting Unavailable HOY ., DR PAVON Consulting Unavailable HOConsuelo ., DR PAVON Attending Unavailable AHDOOT, CHINMAY Consulting Unavailable JAMES, VINAYA Consulting Unavailable YEH, MICHELINE Consulting Unavailable FALVO, MAYUR Consulting Unavailable ROCK, BRIEN Consulting Unavailable MELIZA, LIBRADO Consulting Unavailable SISTER, OPAL Consulting Unavailable YOBANY, SABCASSANDRAA REGALADO Consulting Unavailable QUEENIE ., DEBBIE Consulting Unavailable JUNE ., CARIDAD Consulting Unavailable ALICJA ., DR PAVON Primary Care Unavailable HOConsuelo ., DR PAVON Admitting Unavailable HOConsuelo ., DR PAVON Consulting Unavailable HOConsuelo ., DR PAVON Attending Unavailable WEST, DR FABIAN Guadarrama Consulting Unavailable RENA ., GIOVANNI Consulting Unavailable MARKER, ASH Consulting Unavailable JOHNSON, LOURDES Consulting Unavailable KLIPPFABIAN CRAVEN Consulting Unavailable POWERS, ANGELA Consulting Unavailable MELIZA, LIBRADO Consulting Unavailable SISTER, OPAL Consulting Unavailable BALJIT CHEN Consulting Unavailable ZONIA LAWRENCE Consulting Unavailable ALICJA ., DR PAVON Primary Care Unavailable HOY ., DR PAVON Admitting Unavailable HOY ., DR PAVON Attending Unavailable HOConsuelo ., DR PAVON Consulting Unavailable ZIAMIRAHER, DR VIC Dennison Consulting Unavailable NADEREJuma, DR ZACH Valero Consulting Unavailable RENA ., GIOVANNI Consulting Unavailable MOUKARBEL, DR ASHFORD Consulting Unavailable NOÉ ., JOVANI Consulting Unavailable PRIYA, GRACIE Consulting Unavailable RHYS PARRA Consulting Unavailable Librado Mike Primary Care Physician Baljit DOSHI Attending Unavailable Baljit DOSHI Attending Unavailable Librado Mike MD Primary Care Provider [phone] MISSAEL CHAPARRO Attending Unavailable ROBIN CAMARENA Attending Unavailable MISSAEL CHAPARRO Admitting Unavailable MISSAEL CHAPARRO Attending Unavailable ROBIN CAMARENA Attending Unavailable MISSAEL CHAPARRO Attending Unavailable Allergies Allergy Classification Reported Allergen(s) Allergy Type Date of Onset Reaction(s) Facility (2 sources) Penicillins; Translations: [PENICILLINS] Drug allergy (disorder) 4 [facility] Repository (2 sources) Penicillin; Translations: [penicillin] Drug Allergy Weal (disorder) [facility] (1 source) Penicillins Propensity to adverse reactions [facility] drug [facility] Medications Current Medications Medication Drug Class(es) [...] abdominal pain; Translations: [UNSPECIFIED ABDOMINAL PAIN] Onset: 05-16-202 3 Episodic Acquired foot deformities (5 sources) [...] 3 Chronic Other aftercare (1 source) 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) drug therapy; Translations: [OTH DETENTION 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 THERAPY] Onset: 3 Episodic Other aftercare (1 source) care home (current) use of aspirin; Translations: [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 ASPIRIN] Onset: 3 Episodic [...] Translations: [OTHER SPEC SOFT TISSUE DISORDERS] Onset: 12-05-2022 Episodic Other connective tissue disease (1 source) [...] Test Name Value Interpretation Reference Range Facility Office Visiton 12-08-2023 Follow-up visit [id number] Efraín Johnson 1950 M Date Provider Department Center 12/08/2023 Seven-MISSAEL CHAPARRO PILAR [facility] Family History Problem Relation Age of Onset Stroke Father Stroke Paternal Grandmother Stroke Paternal Grandfather Family Status - Relation Status Age at Father Paternal Grandmother Paternal Grandfather Level of Service:41387 [place] OFFICE/OUTPATIENT ESTABLISHED LOW MDM 20 MIN Normal [facility] Documentationon 09-18-2023 Documentation [id number] Efraín Johnson 1950 M Date Provider Department Center 09/18/2023 ROBIN BANUELOS G[facility] Family History Problem Relation Age of Onset Stroke Father Stroke Paternal Grandmother Stroke Paternal Grandfather Family Status - Relation Status Age at Father Paternal Grandmother Paternal Grandfather [facility] Office Visiton 09-14-2023 Follow-up visit [id number] Efraín Johnson 1950 M Date Provider Department Center 09/14/2023 1596-ROBIN CAMARENA CARD [facility] Family History Problem Relation Age of Onset Stroke Father Stroke Paternal Grandmother Stroke Paternal Grandfather Family Status - Relation Status Age at Father Paternal Grandmother Paternal Grandfather Level of Service:34663 [place] OFFICE/OUTPATIENT ESTABLISHED MOD MDM 30 MIN [facility] HPon 09-10-2023 [facility] Electrophysiology Consult Note Reason for visit: [facility] follow-up, bradycardia, holter monitor , new to EP HPI: Efraín Johnson is a 73 y.o. year old with past medical history of Hypertension, bradycardia, CKD wth baseline appearing around Cr1.5, anemia. Patient was seen in the [facility] for her sinus bradycardia. He was having heart rate ranging in the 50s but was asymptomatic and was discharged with event monitor. He was also dealing with an SHERYL and was found to be dehydrated, hypokalemic, hyponatremic. He was seen by neurology for lower extremity weakness who recommended MRI of C-spine, no concern for stroke. He was seen in [facility] 11/11/2022 for weakness and difficulty getting [...] Murmur: not heard (more content not included)... [facility] NURSNOTEon 09-10-2023 NURSNOTE RN educated pt on d/ c instructions. RN encouraged pt to voice any questions or concerns. Pt verbalizes no questions or concerns at this time. Pt was wheeled off of unit with all of belongings. [facility] Orders Onlyon 08-13-2023 Orders Only [id number] Efraín Johnson 1950 M Date Provider Department Center 08/13/2023 TERRI MAHER PILAR Fry Family History Problem Relation Age of Onset Stroke Father Stroke Paternal Grandmother Stroke Paternal Grandfather Family Status - Relation Status Age at Father Paternal Grandmother Paternal Grandfather [facility] Office Visiton 07-21-2023 Follow-up visit [id number] Efraín Johnson 1950 M Date Provider Department Center 07/21/2023 MISSAEL PRINCE Family History Problem Relation Age of Onset Stroke Father Stroke Paternal Grandmother Stroke Paternal Grandfather Family Status - Relation Status Age at Father Paternal Grandmother Paternal Grandfather Level of Service:07821 [place] OFFICE/OUTPATIENT NEW HIGH MDM 60-74 MINUTES Normal [facility] Orders Onlyon 07-21-2023 Orders Only [id number] Efraín Johnson 1950 M Date Provider Department Center 07/21/2023 TERRI MAHER Family History Problem Relation Age of Onset Stroke Father Stroke Paternal Grandmother Stroke Paternal Grandfather Family Status - Relation Status Age at Father Paternal Grandmother Paternal Grandfather Normal [facility] Outside Colonoscopyon 2022 Outside Colonoscopy [id number] .00CD:127 [facility] Insurance Correspondenceon 0 05-14-2023 Insurance Correspondence [id number] 1.00CD:127 [facility] Consent for Procedure/Surger yon 05-13-2023 Consent for Procedure/Surgery [id number] .00CD:127 [facility] Ambulatory Visit Summaryon 0 05-12-2023 Ambulatory Visit [...] for. Epidermoid cyst of skin of back [facility] ED Note-Physicianon 04-15-20 23 ED Note-Physician [id number] .00CD:127 [facility] RAD - CT Reporton 04-15-2023 RAD - CT Report [id number] .00CD:127 [facility] Physician Referralon 023 Physician Referral [id number] .[id number]:127 [facility] Physician Referralon 023 Physician Referral [id number] .[id number]:127 [facility] Office Visiton 04-01-2023 Follow-up visit [id number] Efraín Johnson 1950 M Date Provider Department Center 04/01/2023 Nahum6-ROBIN CAMARENA [facility] Family History Problem Relation Age of Onset Stroke Father Stroke Paternal Grandmother Stroke Paternal Grandfather Family Status - Relation Status Age at Father Paternal Grandmother Paternal Grandfather Level of Service:5[address]20 [place] OFFICE/OUTPATIENT ESTABLISHED MOD MDM 30-39 MIN Normal [facility] BLOOD CULTURE ID PANELon A. baumannii Not detected Normal NOT DETECTED [facility] Comment on above: Performed By: #### B CID2 ####[facility] [address] [place] [address]Dr. Flaco Otero Bacteriodes fragilis Not detected Normal NOT DETECTED [facility] Comment on above: Performed By: #### B CID2 ####[facility] [address] [place] [address]Dr. Flaco Branden BCID CONTROLS PASSED Normal The [facility] Comment on above: Performed By: #### B CID2 ####[facility] Z[address] [place], [place] [address]Dr. Flaco Otero BCIDBTHD BLOOD CULTURE BOTTLE INFORMATION Normal [facility] Comment on above: Performed By: #### B CID2 ####[facility] [address] [place] [address]Dr. Flaco Otero BCIDHD1 ANTIMICROBIAL RESISTANCE GENES Normal [facility] Comment on above: Performed By: #### B CID2 ####[facility] [address] [place], [place] [address]Dr. Flaco Otero BCIDHD2 SEE BELOW Normal [facility] Comment on above: Result Comment: Note : Antimicrobial resitance can occur via multiple mechanisms. A Not Detected result for the [employer] antomicrobial resistance gene assays does not indicate antimicrobial susceptibility. Subculturing is required for species identification and susceptibility testing of isolates. Performed By: #### B CID2 ####[facility] [address] [place] [address]Dr. Flaco Otero BCIDHD3 Positive Normal [facility] Comment on above: Performed By: #### B CID2 ####[facility] [address] [place] [address]Dr. Flaco Otero BCIDHD4 Negative Normal [facility] Comment on above: Performed By: #### B CID2 ####[facility] [address] [place] [address]Dr. Flaco Otero BCIDHD5 YEAST Normal [facility] Comment on above: Performed By: #### B CID2 ####[facility] [address] [place] [address]Dr. Flaco Otero Bottle Set: Set 2 Normal [facility] Comment on above: Performed By: #### B CID2 ####[facility] [address] [place], [place] [address]Dr. Flaco Otero Bottle: Pediatric Normal [facility] Comment on above: Performed By: #### B CID2 ####[facility] Ozbef[address] [place], [place] [address]Dr. Flaco Otero C. neoformans/gattii Not detected Normal NOT DETECTED [facility] Comment on above: Performed By: #### B CID2 ####[facility] Dagxayonfl[address] [place], [place] [address]Dr. Flaco Otero Angela albicans Not detected Normal NOT DETECTED [facility] Comment on above: Performed By: #### B CID2 ####[facility] [address] [place], [place] [address]Dr. Flaco Otero Angela auris Not detected Normal NOT DETECTED [facility] Comment on above: Performed By: #### B CID2 ####[facility] Xpiw[address]cikq[address] [place], [place] [address]Dr. Flaco Otero Angela glabrata Not detected Normal NOT DETECTED [facility] Comment on above: Performed By: #### B CID2 ####[facility] Iagewgnqbf9[address] [place], [place] [address]Dr. Flaco Otero Angela Krusei Not detected Normal NOT DETECTED [facility] Comment on above: Performed By: #### B CID2 ####[facility] Q[address]merbrsrd[address] [place], [place] [address]Dr. Flaco Otero Angela Parapsilosis Not detected Normal NOT DETECTED [facility] Comment on above: Performed By: #### B CID2 ####[facility] Xnopdvablc[address] [place], [place] [address]Dr. Yilan Otero Angela Tropicalis Not detected Normal NOT DETECTED [facility] Comment on above: Performed By: #### B CID2 ####[facility] Hzynmymlvz[address] [place], [place] [address]Dr. Flaco Otero CTX-M Resistant Gene Not Applicable Normal NOT DETECTE D [facility] Comment on above: Performed By: #### B CID2 ####[facility] Otcsronmtr[address] [place], [place] [address]Dr. Flaco Otero E. Cloacae complex Not detected Normal NOT DETECTED [facility] Comment on above: Performed By: #### B CID2 ####[facility] Xcgdrovasm[address] [place], [place] [address]Dr. Flaco Otero E. faecalis Not detected Normal NOT DETECTED [facility] Comment on above: Performed By: #### B CID2 ####[facility] Ohpzdgtlyz[address] [place], [place] [address]Dr. Flaco Otero E. faecium Not detected Normal NOT DETECTED [facility] Comment on above: Performed By: #### B CID2 ####[facility] W[address]cr[address]cf[address] [place], [place] [address]Dr. Flaco Otero Enterobacteriaceae Not detected Normal NOT DETECTED [facility] Comment on above: Performed By: #### B CID2 ####[facility] Smthempasg[address] [place], [place] [address]Dr. Flaco Otero Escherichia coli Not detected Normal NOT DETECTED [facility] Comment on above: Performed By: #### B CID2 ####[facility] Xsuvjoypns[address] [place], [place] [address]Dr. Flaco Otero H. influenzae Not detected Normal NOT DETECTED [facility] Comment on above: Performed By: #### B CID2 ####[facility] Okpvntomec[address] [place], [place] [address]Dr. Flaco Otero IMP Resistant Gene Not Applicable Normal NOT DETECTED [facility] Comment on above: Performed By: #### B CID2 ####[facility] Wphsyiqfmn[address] [place], [place] [address]Dr. Flaco Otero K. oxytoca Not detected Normal NOT DETECTED [facility] Comment on above: Performed By: #### B CID2 ####[facility] [address] [place] [address]Dr. Purviedith Branden K. pneumoniae Not detected Normal NOT DETECTED [facility] Comment on above: Performed By: #### B CID2 ####[facility] [address] [place] [address]Dr. Purviedith Branden Klebsiella aerogenes Not detected Normal NOT DETECTED [facility] Comment on above: Performed By: #### B CID2 ####[facility] Fpifruzdzb[address] [place], [place] [address]Dr. Flaco Otero KPC Resistant Gene Not detected Normal NOT DETECTED [facility] Comment on above: Performed By: #### B CID2 ####[facility] Hovgxvshpg[address] [place], [place] [address]Dr. Flaco Otero List. monocytogenes Not detected Normal NOT DETECTED [facility] Comment on above: Performed By: #### B CID2 ####[facility] Rmucgwlyjz[address] [place], [place] [address]Dr. Flaco Otero Mcr-1 Resistant Gene Not Applicable Normal NOT DETECTE D [facility] Comment on above: Performed By: #### B CID2 ####[facility] Zpuwkfobri[address] [place], [place] [address]Dr. Purvilan Otero mecA/C Not Applicable Normal NOT DETECTED [facility] Comment on above: Performed By: #### B CID2 ####[facility] Rr[address] [place], [place] [address]Dr. Flaco Otero mecA/C MREJ Not Applicable Normal NOT DETECTED [facility] Comment on above: Performed By: #### B CID2 ####[facility] R[address]hnbjypm[address] [place], [place] [address]Dr. Flaco Otero N. meningitidis Not detected Normal NOT DETECTED [facility] Comment on above: Performed By: #### B CID2 ####[facility] Eszakjfpfa[address] [place], [place] [address]Dr. Flaco Otero NDM Resistant Gene Not Applicable Normal NOT DETECTED [facility] Comment on above: Performed By: #### B CID2 ####[facility] Vqef[address]bpzy[address] [place], [place] [address]Dr. Purviedith Otero Oxa-48-like Not Applicable Normal NOT DETECTED [facility] Comment on above: Performed By: #### B CID2 ####[facility] Breehhxwop[address] [place], [place] [address]Dr. Flaco Otero Proteus Not detected Normal NOT DETECTED [facility] Comment on above: Performed By: #### B CID2 ####[facility] Pwejuozzqp[address] [place], [place] [address]Dr. Flaco Otero Pseud. aeruginosa Not detected Normal NOT DETECTED [facility] Comment on above: Performed By: #### B CID2 ####[facility] [address]wdtuevveu[address] [place], [place] [address]Dr. Flaco Otero S. maltophilia Not detected Normal NOT DETECTED [facility] Comment on above: Performed By: #### B CID2 ####[facility] Bldbgiiict[address] [place], [place] [address]Dr. Flaco Otero Salmonella Not detected Normal NOT DETECTED [facility] Comment on above: Performed By: #### B CID2 ####[facility] Tjiqtwrvgr[address] [place], [place] [address]Dr. Purviedith Otero Seratia marcescens Not detected Normal NOT DETECTED [facility] Comment on above: Performed By: #### B CID2 ####[facility] Evwelidzye[address] [place], [place] [address]Dr. Flaco Otero Site: left hand Normal [facility] Comment on above: Performed By: #### B CID2 ####[facility] C[address]cnz[address] [place], [place] [address]Dr. Flaco Otero Staph. aureus Not detected Normal NOT DETECTED [facility] Comment on above: Performed By: #### B CID2 ####[facility] V[address]ceh[address]rm[address] [place], [place] [address]Dr. Flaco Otero Staph. epidermidis Not detected Normal NOT DETECTED [facility] Comment on above: Performed By: #### B CID2 ####[facility] Ikbtufvwpx[address] [place], [place] [address]Dr. Flaco Otero Staph. lugdunensis Not detected Normal NOT DETECTED [facility] Comment on above: Performed By: #### B CID2 ####[facility] Gqxngfburi[address] [place], [place] [address]Dr. Flaco Otero Staphylococcus Not detected Normal NOT DETECTED [facility] Comment on above: Performed By: #### B CID2 ####[facility] Muxiixtvir[address] [place], [place] [address]Dr. Flaco Otero Strep. agalactiae Not detected Normal NOT DETECTED [facility] Comment on above: Performed By: #### B CID2 ####[facility] Okty[address]mtzzh[address] [place], [place] [address]Dr. Flaco Otero Strep. pneumoniae Not detected Normal NOT DETECTED [facility] Comment on above: Performed By: #### B CID2 ####[facility] W[address]cl[address] [place], [place] [address]Dr. Flaco Otero Strep. pyogenes Not detected Normal NOT DETECTED [facility] Comment on above: Performed By: #### B CID2 ####[facility] Laltge[address]lei[address] [place], [place] [address]Dr. Flaco Otero Streptococcus Detected Critically abnormal NOT DETECTED [facility] Comment on above: Performed By: #### B CID2 ####[facility] Snzvnxucro[address] [place], [place] [address]Dr. Flaco Otero Hao/B Resist. Gene Not detected Normal NOT DETECTED [facility] Comment on above: Performed By: #### B CID2 ####[facility] Xmltotycmp[address] [place], [place] [address]Dr. Flaco Otero VIM Resistant Gene Not Applicable Normal NOT DETECTED [facility] Comment on above: Performed By: #### B CID2 ####[facility] Xbtyibeocp[address] [place], [place] [address]Dr. Flaco Otero CBC AUTO DIFFon 02-10-2023 BASO # 0.0 103/ul Normal 0.0-0.1 [facility] Comment on above: Performed By: #### C BC ####[facility] [address] [place] [id number]. Flaco Otero Basophils/100 WBC (Bld) 0.5 % Normal 0.2-2.0 [facility] Comment on above: Performed By: #### C BC ####[facility] [address] [place], [place] [id number]. Flaco Otero EO # 0.1 103/ul Normal 0.0-0.7 [facility] Comment on above: Performed By: #### C BC ####[facility] Fcdubunmqj[address] [place], [place] [address]Dr. Flaco Otero Eosinophils/100 WBC (Bld) 1.1 % Normal 0.9-7.0 [facility] Comment on above: Performed By: #### C BC ####[facility] [address]ce[address]qxd[address] [place], [place] [address]Dr. Flaco Otero Erythrocyte distribution width (RBC) [Ratio] 16.0 % Critically high 11.0-15.0 [facility] Comment on above: Performed By: #### C BC ####[facility] Yyg[address]swzca[address] [place], [place] [address]Dr. Flaco Otero Hematocrit (Bld) [Volume fraction] 40.1 % Critically low 42.0-54.0 [facility] Comment on above: Performed By: #### C BC ####[facility] [address]qgbizrgl[address] [place], [place] [address]Dr. Flaco Otero Hemoglobin (Bld) [Mass/Vol] 13.2 g/dL Critically low 14.0-18.0 [facility] Comment on above: Performed By: #### C BC ####[facility] [address]cu[address] [place], [place] [address]Dr. Flaco Otero IG # 0.01 10e3/ul Normal 0.00-0.03 [facility] Comment on above: Performed By: #### C BC ####[facility] Sxstgthw[address] [place], [place] [address]Dr. Flaco Otero IG % 0.2 % Normal 0.0-0.5 [facility] Comment on above: Performed By: #### C BC ####[facility] Bulfisvpzt[address] [place] [id number]. Flaco Otero LYMPH # 1.8 103/ul Normal 1.2-3.8 [facility] Comment on above: Performed By: #### C BC ####[facility] Bwptemkunk4327 [place] [id number]. Flaco Branden Lymphocytes/100 WBC (Bld) 28.1 % Normal 20.5-60.0 [facility] Comment on above: Performed By: #### C BC ####[facility] Uotjrffsrb6194 [place] [id number]. Flaco Otero MANUAL DIFF REQ NO Normal [facility] Comment on above: Performed By: #### C BC ####[facility] Kngvvtrfkr9372 [place] [id number]. Purviedith Otero MCH (RBC) [Entitic mass] 28.0 pg Normal 25.9-34.0 [facility] Comment on above: Performed By: #### C BC ####[facility] Ktoyjudftz0829 [place] [id number]. Flaco Otero MCHC (RBC) [Mass/Vol] 32.9 g/dL Normal 29.9-35.2 [facility] Comment on above: Performed By: #### C BC ####[facility] Vrjkjwkeoc4598 [place] [phone]. Flaco Otero MCV (RBC) [Entitic vol] 85.0 fL Normal 80.0-94.0 [facility] Comment on above: Performed By: #### C BC ####[facility] Fsmnlolkmu8828 [place] [id number]. Flaco Branden MONO # 0.5 103/ul Normal 0.3-0.8 [facility] Comment on above: Performed By: #### C BC ####[facility] Ncwrbrcqdn0825 [place] [id number]. Flaco Otero Monocytes/100 WBC (Bld) 7.2 % Normal 1.7-12.0 [facility] Comment on above: Performed By: #### C BC ####[facility] Arxpprvebf0625 [place] [id number]. Flaco Otero NEUT # 4.1 103/ul Normal 1.4-6.5 [facility] Comment on above: Performed By: #### C BC ####[facility] Ebmkerxdhk1435 [place] [id number]. Flaco Otero Neutrophils/100 WBC (Bld) 62.9 % Normal 43.0-75.0 [facility] Comment on above: Performed By: #### C BC ####[facility] Pdanvqatsh4336 [place] [address]Dr. Flaco Branden Platelet mean volume (Bld) [Entitic vol] 10.7 fL Normal 9.5-13.5 [facility] Comment on above: Performed By: #### C BC ####[facility] Yzxeefwsli264[address] [place], [place] [address]Dr. Purviedith Branden PLT 180 103/ul Normal 150-450 [facility] Comment on above: Performed By: #### C BC ####[facility] Rvzdfmnhev40[address] [place], [place] [address]Dr. Flaco Otero RBC 4.72 106/ul Normal 4.70-6.10 [facility] Comment on above: Performed By: #### C BC ####[facility] Zxammrhdtu9[address] [place], [place] [address]Dr. Flaco Otero WBC 6.5 103/ul Normal 4.0-11.0 [facility] Comment on above: Performed By: #### C BC ####[facility] Pimtmpidft4988[address] [place], [place] [address]Dr. Flaco Otero PROF 14(COMP METB)on 023 Albumin [Mass/Vol] 2.8 g/dL Critically low 3.4-5.0 [facility] Comment on above: Performed By: #### C MP ####[facility] Rtwxeyopvy305[address] [place], [place] [address]Dr. Flaco Otero Albumin/Globulin [Mass ratio] 1.2 {ratio} Normal [facility] Comment on above: Performed By: #### C MP ####[facility] Mxxblaqice7424 [place] [phone]. Flaco Otero ALP [Catalytic activity/Vol] 71 U/L Normal 46-116 [facility] Comment on above: Performed By: #### C MP ####[facility] Ejprujmhiw0729 [place] [phone]. Flaco Otero ALT [Catalytic activity/Vol] 9 U/L Critically low 16-63 [facility] Comment on above: Performed By: #### C MP ####[facility] Agqoyufunm4478 [place] [phone]. Flaco Otero Anion gap [Moles/Vol] 11.5 mmol/L Normal [facility] Comment on above: Performed By: #### C MP ####[facility] Dmngyzyody7108 [place] [address]Dr. Flaco Otero AST [Catalytic activity/Vol] 13 U/L Critically low 15-37 [facility] Comment on above: Performed By: #### C MP ####[facility] Wfalqkyusv0080 [place] [address]Dr. Flaco Otero Bilirubin [Mass/Vol] 1.4 mg/dL Critically high 0.2-1.0 [facility] Comment on above: Performed By: #### C MP ####[facility] Mlidoccoeo9945 [place] [phone]. Flaco Otero Calcium [Mass/Vol] 7.9 mg/dL Critically low 8.5-10.1 [facility] Comment on above: Performed By: #### C MP ####[facility] Qajzikzecs5479 [place] [address]Dr. Flaco Otero Chloride [Moles/Vol] 110 mmol/L Critically high 98-107 [facility] Comment on above: Performed By: #### C MP ####[facility] Tvzzpuoubk0387 [place] [phone]. Flaco Otero CO2 [Moles/Vol] 26.4 mmol/L Normal 21.0-32.0 [facility] Comment on above: Performed By: #### C MP ####[facility] Jnzhetipwc3982 [place], [place] [address]Ib. Flaco Otero Creatinine [Mass/Vol] 1.35 mg/dL Critically high 0.70-1.30 [facility] Comment on above: Performed By: #### C MP ####[facility] Uqlsyqmqyj2910 [place], [place] [address]Or. Flaco Otero EGFR-AF SAMOAN >60 Normal >=60 [facility] Comment on above: Performed By: #### C MP ####[facility] Xzvikmcrff3506 [place] [phone]. Flaco Otero EGFR-NON AF SAMOAN 52 mL/min/1.73m2 Critically low >=60 [facility] Comment on above: Performed By: #### C MP ####[facility] Osdwscvoiy8752 [place] [phone]. Flaco Otero Globulin (S) [Mass/Vol] 2.4 g/dL Normal [facility] Comment on above: Performed By: #### C MP ####[facility] Vyexnxpila6123 [place] [phone]. Flaco Otero Glucose [Mass/Vol] 90 mg/dL Normal 74-106 [facility] Comment on above: Performed By: #### C MP ####[facility] Rejdgaccwg3606 [place] [phone]. Flaco Otero Potassium [Moles/Vol] 2.8 mmol/L Critically low 3.5-5.1 [facility] Comment on above: Performed By: #### C MP ####[facility] Mtyxxhkckw2231 [place] [id number]. Flaco Otero Protein [Mass/Vol] 5.2 g/dL Critically low 6.4-8.2 [facility] Comment on above: Performed By: #### C MP ####[facility] Qynholuckq7545 [place] [phone]. Flaco Otero Sodium [Moles/Vol] 143 mmol/L Normal 136-145 [facility] Comment on above: Performed By: #### C MP ####[facility] Ayvjfqqhai2760 [place] [address]Dr. Flaco Otero Urea nitrogen [Mass/Vol] 13.0 mg/dL Normal 7.0-18.0 [facility] Comment on above: Performed By: #### C MP ####[facility] Ltsweysihm25[address] [place], [place] [address]Dr. Flaco Otero Urea nitrogen/Creatinine [Mass ratio] 9.6 mg/mg Normal [facility] Comment on above: Performed By: #### C MP ####[facility] Uoxpskyqec698[address] [place], [place] [address]Dr. Flaco Otero AMMONIAon 02-09-2023 Ammonia (P) [Mass/Vol] ug/dL Critically low 11-32 [facility] Comment on above: Performed By: #### A MM ####[facility] Gkrppjdyfq53[address] [place], [place] [address]Dr. Flaco Otero CBC AUTO DIFFon 02-09-2023 BASO # 0.0 103/ul Normal 0.0-0.1 [facility] Comment on above: Performed By: #### C BC ####[facility] Gthahqpysj94[address] [place], [place] [address]Dr. Flaco Otero Basophils/100 WBC (Bld) 0.6 % Normal 0.2-2.0 [facility] Comment on above: Performed By: #### C BC ####[facility] Nlmxyhciwk94[address] [place], [place] [address]Dr. Flaco Otero EO # 0.0 103/ul Normal 0.0-0.7 [facility] Comment on above: Performed By: #### C BC ####[facility] Gldljgusxd7158[address] [place], [place] [address]Dr. Flaco Otero Eosinophils/100 WBC (Bld) 0.8 % Critically low 0.9-7.0 [facility] Comment on above: Performed By: #### C BC ####[facility] Lehtrihple220[address] [place], [place] [address]Dr. Flaco Otero Erythrocyte distribution width (RBC) [Ratio] 15.9 % Critically high 11.0-15.0 [facility] Comment on above: Performed By: #### C BC ####[facility] Zdkcjbjage4448 [place] [address]Dr. Flaco Otero Hematocrit (Bld) [Volume fraction] 40.6 % Critically low 42.0-54.0 [facility] Comment on above: Performed By: #### C BC ####[facility] Vmihaemceb5634 [place] [address]DrJeramie Flaco Branden Hemoglobin (Bld) [Mass/Vol] 13.1 g/dL Critically low 14.0-18.0 [facility] Comment on above: Performed By: #### C BC ####[facility] Dauabjppxn[address] [place], [place] [address]DrJeramie Purviedith Otero IG # 0.01 10e3/ul Normal 0.00-0.03 [facility] Comment on above: Performed By: #### C BC ####[facility] Gquatayqeq045[address] [place], [place] [address]Dr. Flaco Otero IG % 0.2 % Normal 0.0-0.5 [facility] Comment on above: Performed By: #### C BC ####[facility] Bbwdoilptv6[address] [place], [place] [address]DrJeramie Purviedith Otero LYMPH # 1.3 103/ul Normal 1.2-3.8 [facility] Comment on above: Performed By: #### C BC ####[facility] Fdqksgrmmk5999[address] [place], [place] [address]DrJeramie Otero Lymphocytes/100 WBC (Bld) 26.3 % Normal 20.5-60.0 [facility] Comment on above: Performed By: #### C BC ####[facility] Lbrwvdaekr3[address] [place], [place] [address]DrJeramie Otero MANUAL DIFF REQ NO Normal [facility] Comment on above: Performed By: #### C BC ####[facility] Uoshvvgajl1899 [place] [address]DrJeramie Otero MCH (RBC) [Entitic mass] 27.5 pg Normal 25.9-34.0 [facility] Comment on above: Performed By: #### C BC ####[facility] Onkkmldssm0090 [place] [id number]. Flaco Otero MCHC (RBC) [Mass/Vol] 32.3 g/dL Normal 29.9-35.2 [facility] Comment on above: Performed By: #### C BC ####[facility] Olyyiyrrge8659 [place] [phone] Otero MCV (RBC) [Entitic vol] 85.3 fL Normal 80.0-94.0 [facility] Comment on above: Performed By: #### C BC ####[facility] Vkcqkhsiec27[address] [place], [place] [address]DrJeramie Otero MONO # 0.4 103/ul Normal 0.3-0.8 [facility] Comment on above: Performed By: #### C BC ####[facility] Uvgbllrizj074[address] [place], [place] [address]Dr. Flaco Otero Monocytes/100 WBC (Bld) 7.6 % Normal 1.7-12.0 [facility] Comment on above: Performed By: #### C BC ####[facility] Sbpwfrdgzu352[address] [place], [place] [address]Dr. Flaco Otero NEUT # 3.2 103/ul Normal 1.4-6.5 [facility] Comment on above: Performed By: #### C BC ####[facility] Weesqocrps05[address] [place], [place] [address]DrJeramie Otero Neutrophils/100 WBC (Bld) 64.5 % Normal 43.0-75.0 [facility] Comment on above: Performed By: #### C BC ####[facility] Vhjlkhfbws[address] [place], [place] [id number] Otero Platelet mean volume (Bld) [Entitic vol] 10.6 fL Normal 9.5-13.5 [facility] Comment on above: Performed By: #### C BC ####[facility] Jwphrafvbe[address] [place], [place] [id number]. Flaco Otero PLT 195 103/ul Normal 150-450 [facility] Comment on above: Performed By: #### C BC ####[facility] Uzdsiigzzh0993 [place] [address]Dr. Flaco Otero RBC 4.76 106/ul Normal 4.70-6.10 [facility] Comment on above: Performed By: #### C BC ####[facility] Iaeigrvxho3369 [place] [address]Dr. Flcao Otero WBC 5.0 103/ul Normal 4.0-11.0 [facility] Comment on above: Performed By: #### C BC ####[facility] Vbteosjjiv2632 [place] [address]Dr. Flaco Otero PROF 14(COMP METB)on 023 Albumin [Mass/Vol] 3.0 g/dL Critically low 3.4-5.0 [facility] Comment on above: Performed By: #### C MP ####[facility] Yajkjsgxoq125[address] [place], [place] [address]Dr. Flaco Otero Albumin/Globulin [Mass ratio] 1.2 {ratio} Normal [facility] Comment on above: Performed By: #### C MP ####[facility] Lfjfwsyjcq07[address] [place], [place] [address]Dr. Flaco Otero ALP [Catalytic activity/Vol] 67 U/L Normal 46-116 [facility] Comment on above: Performed By: #### C MP ####[facility] Mgyezqlylv[address] [place], [place] [address]Dr. Flaco Otero ALT [Catalytic activity/Vol] 7 U/L Critically low 16-63 [facility] Comment on above: Performed By: #### C MP ####[facility] Lsbikjtlss672[address] [place], [place] [address]Dr. Flaco Otero Anion gap [Moles/Vol] 12.8 mmol/L Normal [facility] Comment on above: Performed By: #### C MP ####[facility] Ipscugkmlh414[address] [place], [place] [address]Dr. Flaco Otero AST [Catalytic activity/Vol] 16 U/L Normal 15-37 [facility] Comment on above: Performed By: #### C MP ####[facility] Avcuiaxsyq8642 [place] [id number]. Flaco Otero Bilirubin [Mass/Vol] 2.1 mg/dL Critically high 0.2-1.0 [facility] Comment on above: Performed By: #### C MP ####[facility] Pvoghjngpp2603 [place] [id number]. Flaco Otero Calcium [Mass/Vol] 8.1 mg/dL Critically low 8.5-10.1 [facility] Comment on above: Performed By: #### C MP ####[facility] Yuzihoqbds4610 [place] [address]Dr. Flaco Otero Chloride [Moles/Vol] 110 mmol/L Critically high 98-107 [facility] Comment on above: Performed By: #### C MP ####[facility] Svkurpkpxp023[address] [place], [place] [address]Dr. Flaco Otero CO2 [Moles/Vol] 26.0 mmol/L Normal 21.0-32.0 [facility] Comment on above: Performed By: #### C MP ####[facility] Lmrzooqdnh9440[address] [place], [place] [address]Dr. Flaco Otero Creatinine [Mass/Vol] 1.43 mg/dL Critically high 0.70-1.30 [facility] Comment on above: Performed By: #### C MP ####[facility] Jpcmxmpjpc8496[address] [place], [place] [address]Dr. Flaco Otero EGFR-AF SAMOAN 59 mL/min/1.73m2 Critically low >=60 [facility] Comment on above: Performed By: #### C MP ####[facility] Oakwglzwys5126 [place] [id number]. Flaco Branden EGFR-NON AF SAMOAN 49 mL/min/1.73m2 Critically low >=60 [facility] Comment on above: Performed By: #### C MP ####[facility] Ltkpnjsezo8[address] [place], [place] [address]Dr. Flaco Branden Globulin (S) [Mass/Vol] 2.4 g/dL Normal [facility] Comment on above: Performed By: #### C MP ####[facility] Zwdtbjcrrp6080 [place] [address]Dr. Flaco Otero Glucose [Mass/Vol] 77 mg/dL Normal 74-106 [facility] Comment on above: Performed By: #### C MP ####[facility] Cwvjtcurvx1266 [place] [address]Dr. Flaco Otero Potassium [Moles/Vol] 2.8 mmol/L Critically low 3.5-5.1 [facility] Comment on above: Performed By: #### C MP ####[facility] Eyljwcrjdu0774 [place] [address]Dr. Flaco Otero Protein [Mass/Vol] 5.4 g/dL Critically low 6.4-8.2 [facility] Comment on above: Performed By: #### C MP ####[facility] Lxpckcstgy8[address] [place], [place] [address]Dr. Flaco Otero Sodium [Moles/Vol] 145 mmol/L Normal 136-145 [facility] Comment on above: Performed By: #### C MP ####[facility] Bwfgkptzes5169[address] [place], [place] [address]Dr. Flaco Otero Urea nitrogen [Mass/Vol] 8.0 mg/dL Normal 7.0-18.0 [facility] Comment on above: Performed By: #### C MP ####[facility] Uifvqleuia35[address] [place], [place] [address]Dr. Flaco Otero Urea nitrogen/Creatinine [Mass ratio] 5.6 mg/mg Normal [facility] Comment on above: Performed By: #### C MP ####[facility] Hlntvrbpfk7066[address] [place], [place] [address]Dr. Flaco Otero T4on 02-09-2023 T4 [Mass/Vol] 7.10 ug/dL Normal 4.50-12.10 [facility] Comment on above: Performed By: #### T SH, T4 ####[facility] Autmvakwia3365[address] [place], [place] [address]Dr. Flaco Otero TSHon 02-09-2023 TSH 0.633 uIU/mL Normal 0.358-3.740 [facility] Comment on above: Performed By: #### T SH, T4 ####[facility] Ewinxireld1635 [place] [address]Dr. Flaco Otero US SINGLE QUAD RT UPPERon US SINGLE QUAD RT UPPER Normal [facility] AMYLASEon 02-08-2023 Amylase [Catalytic activity/Vol] 41 U/L Normal 25-115 [facility] Comment on above: Performed By: #### A MY, LIPA, CMP ####[facility] Cyqhrqhbpt4[address] [place], [place] [address]Dr. Flaco Otero CBC AUTO DIFFon 02-08-2023 BASO # 0.0 103/ul Normal 0.0-0.1 [facility] Comment on above: Performed By: #### C BC ####[facility] Uhdnzsxaky347[address] [place], [place] [address]Dr. Flaco Otero Basophils/100 WBC (Bld) 0.7 % Normal 0.2-2.0 [facility] Comment on above: Performed By: #### C BC ####[facility] Dilavmqqki6924[address] [place], [place] [address]Dr. Flaco Otero EO # 0.0 103/ul Normal 0.0-0.7 [facility] Comment on above: Performed By: #### C BC ####[facility] Fcpsglcueh8406[address] [place], [place] [address]Dr. Flaco Otero Eosinophils/100 WBC (Bld) 0.5 % Critically low 0.9-7.0 [facility] Comment on above: Performed By: #### C BC ####[facility] Dthobpylzh7839[address] [place], [place] [address]Dr. Flaco Otero Erythrocyte distribution width (RBC) [Ratio] 15.9 % Critically high 11.0-15.0 [facility] Comment on above: Performed By: #### C BC ####[facility] Qealviqcqh777[address] [place], [place] [address]Dr. Flaco Otero Hematocrit (Bld) [Volume fraction] 46.1 % Normal 42.0-54.0 [facility] Comment on above: Performed By: #### C BC ####[facility] Zrqisjqlhl5431 [place] [address]Dr. Flaco Otero Hemoglobin (Bld) [Mass/Vol] 15.2 g/dL Normal 14.0-18.0 [facility] Comment on above: Performed By: #### C BC ####[facility] Czjfbspsls2043 [place] [address]Dr. Flaco Otero IG # 0.02 10e3/ul Normal 0.00-0.03 [facility] Comment on above: Performed By: #### C BC ####[facility] Gojvhhigiw6508 [place] [address]Dr. Flaco Otero IG % 0.3 % Normal 0.0-0.5 [facility] Comment on above: Performed By: #### C BC ####[facility] Xsxaeuowmd5839[address] [place], [place] [address]Dr. Flaco Otero LYMPH # 1.5 103/ul Normal 1.2-3.8 [facility] Comment on above: Performed By: #### C BC ####[facility] Ssbsciwuny7204[address] [place], [place] [address]Dr. Flaco Otero Lymphocytes/100 WBC (Bld) 26.1 % Normal 20.5-60.0 [facility] Comment on above: Performed By: #### C BC ####[facility] Ryjlsibzsd4312 [place] [address]Dr. Flaco Otero MANUAL DIFF REQ NO Normal [facility] Comment on above: Performed By: #### C BC ####[facility] Cmdtmtfflx4762 [place] [address]Dr. Flaco Otero MCH (RBC) [Entitic mass] 27.9 pg Normal 25.9-34.0 [facility] Comment on above: Performed By: #### C BC ####[facility] Olzhieqxop[address] [place], [place] [id number]. Flaco Otero MCHC (RBC) [Mass/Vol] 33.0 g/dL Normal 29.9-35.2 [facility] Comment on above: Performed By: #### C BC ####[facility] Ihaixdmrzt8519 [place] [id number]. Flaco Otero MCV (RBC) [Entitic vol] 84.6 fL Normal 80.0-94.0 [facility] Comment on above: Performed By: #### C BC ####[facility] Nhuouzllva6367 [place] [id number]. Flaco Otero MONO # 0.6 103/ul Normal 0.3-0.8 [facility] Comment on above: Performed By: #### C BC ####[facility] Vxmwddvwin4852 [place] [id number]. Flaco Branden Monocytes/100 WBC (Bld) 9.6 % Normal 1.7-12.0 [facility] Comment on above: Performed By: #### C BC ####[facility] Eqrazkupef13[address] [place], [place] [address]Dr. Flaco Otero NEUT # 3.7 103/ul Normal 1.4-6.5 [facility] Comment on above: Performed By: #### C BC ####[facility] Exmftpmste[address] [place], [place] [id number]. Purviedith Otero Neutrophils/100 WBC (Bld) 62.8 % Normal 43.0-75.0 [facility] Comment on above: Performed By: #### C BC ####[facility] Cqljpdpcjx[address] [place], [place] [id number]. Purviedith Otero Platelet mean volume (Bld) [Entitic vol] 10.6 fL Normal 9.5-13.5 [facility] Comment on above: Performed By: #### C BC ####[facility] Yfpmoctolk96[address] [place], [place] [id number]. Flaco Branden PLT 255 103/ul Normal 150-450 [facility] Comment on above: Performed By: #### C BC ####[facility] Snqyirhfur125[address] [place], [place] [id number]. Flaco Otero RBC 5.45 106/ul Normal 4.70-6.10 [facility] Comment on above: Performed By: #### C BC ####[facility] Creuukbgdn[address] [place], [place] [address]Dr. Flaco Otero WBC 5.8 103/ul Normal 4.0-11.0 [facility] Comment on above: Performed By: #### C BC ####[facility] Vvwaqmwsxy[address] [place], [place] [address]Dr. Flaco Otero CULTURE BLOODon 02-08-2023 Microscopic examination of blood, culture Culture Observations: NO GROWTH AT 36-48 HOURS. FINAL TO FOLLOW. Normal [facility] Comment on above: Performed By: #### B LDCX1 ####[facility] Wzdxeudylz[address] [place], [place] [address]Dr. Purviedith Branden ER URINE PROFILEon 3 Bilirubin Ql (U) Negative Normal NEGATIVE [facility] Comment on above: Performed By: #### E RUR ####[facility] Zfwugrzizc94[address] [place], [place] [address]Dr. Flaco Otero Clarity (U) CLEAR Normal CLEAR [facility] Comment on above: Performed By: #### E RUR ####[facility] Nesoatdxlc[address] [place], [place] [address]Dr. Flaco Otero Color (U) YELLOW Normal YELLOW [facility] Comment on above: Performed By: #### E RUR ####[facility] Uisbdsdnbo4[address] [place], [place] [address]Dr. Flaco Otero ERUAHD A micrscopic examination will be performed if indicated. Normal [facility] Comment on above: Performed By: #### E RUR ####[facility] Ljdxuszvof8[address] [place], [place] [address]Dr. Flaco Otero Glucose Ql (U) Negative Normal NEGATIVE [facility] Comment on above: Performed By: #### E RUR ####[facility] Sayprdveoi119[address] [place], [place] [address]Dr. Flaco Otero Hemoglobin Ql (U) Negative Normal NEGATIVE [facility] Comment on above: Performed By: #### E RUR ####[facility] Wyinbznplu040[address] [place], [place] [address]Dr. Flaco Otero Ketones Ql (U) 15 mg/dl Abnormal NEGATIVE [facility] Comment on above: Performed By: #### E RUR ####[facility] [address] [place] [address]Dr. Flaco Otero LEUKOCYTES Negative Normal NEGATIVE [facility] Comment on above: Performed By: #### E RUR ####[facility] Wsxwiudqaf2865[address] [place], [place] [address]Dr. Purviedith Branden Nitrite Ql (U) Negative Normal NEGATIVE [facility] Comment on above: Performed By: #### E RUR ####[facility] Uyyuofvawz9[address] [place], [place] [address]Dr. Purviedith Otero pH (U) 6.5 [pH] Normal 5-9 [facility] Comment on above: Performed By: #### E RUR ####[facility] Jwuysjqful483[address] [place], [place] [address]Dr. Flaco Otero SPEC GRAVITY 1.010 Normal 1.005-<=1.[address] [place] [address] Comment on above: Performed By: #### E RUR ####[facility] Fvabofmdoj46[address] [place], [place] [address]Dr. Flaco Otero UA PROTEIN Negative Normal NEGATIVE/ TRACE [facility] Comment on above: Performed By: #### E RUR ####[facility] Ijcfhyahlq4127[address] [place], [place] [address]Dr. Flaco Otero UR MICRO IND NOT INDICATED Normal [facility] Comment on above: Performed By: #### E RUR ####[facility] Jvfycigfeh24[address] [place], [place] [address]Dr. Flaco Otero Urobilinogen Qn (U) 2.0 {Tuan'U}/dL Abnormal 0.2 - 1. 0 [facility] Comment on above: Performed By: #### E RUR ####[facility] Jjlloclgty9[address] [place], [place] [address]Dr. Flaco Otero LIPASEon 02-08-2023 Lipase [Catalytic activity/Vol] 280.0 U/L Normal 73.0-393.0 [facility] Comment on above: Performed By: #### A RICCARDO LIPA, CMP ####[facility] Hliaxzinep64[address] [place] [address]Dr. Flaco Otero PROF 14(COMP METB)on 023 Albumin [Mass/Vol] 3.5 g/dL Normal 3.4-5.0 [facility] Comment on above: Performed By: #### A MY LIPA, CMP ####[facility] Bhukidbovu[address] [place] [address]Dr. Flaco Otero Albumin/Globulin [Mass ratio] 1.2 {ratio} Normal [facility] Comment on above: Performed By: #### A MY LIPA, CMP ####[facility] Vzjowanpns[address] [place], [place] [address]Dr. Flaco Otero ALP [Catalytic activity/Vol] 81 U/L Normal 46-116 [facility] Comment on above: Performed By: #### A RICCARDO LIPA, CMP ####[facility] Fdjsdsqliu12[address] [place], [place] [address]Dr. Flaco Otero ALT [Catalytic activity/Vol] 7 U/L Critically low 16-63 [facility] Comment on above: Performed By: #### A RICCARDO LIPA, CMP ####[facility] Flsxjilzrm1030[address] [place], [place] [address]Dr. Flaco Otero Anion gap [Moles/Vol] 10.3 mmol/L Normal [facility] Comment on above: Performed By: #### A MY LIPA, CMP ####[facility] Btsbxjqlcr399[address] [place], [place] [address]Dr. Flaco Otero AST [Catalytic activity/Vol] 20 U/L Normal 15-37 [facility] Comment on above: Performed By: #### A MY LIPA, CMP ####[facility] Xuzahbvpie01[address] [place], [place] [address]Dr. Flaco Otero Bilirubin [Mass/Vol] 3.1 mg/dL Critically high 0.2-1.0 [facility] Comment on above: Performed By: #### A MY LIPA, CMP ####[facility] Cdssbayhwb4[address] [place] [address]Dr. Flaco Otero Calcium [Mass/Vol] 8.7 mg/dL Normal 8.5-10.1 [facility] Comment on above: Performed By: #### A MY LIPA, CMP ####[facility] Madzxkjqkc[address] [place], [place] [address]Dr. Flaco Otero Chloride [Moles/Vol] 103 mmol/L Normal 98-107 [facility] Comment on above: Performed By: #### A MY LIPA, CMP ####[facility] Hjhtzvsajk39[address] [place], [place] [address]Dr. Flaco Otero CO2 [Moles/Vol] 30.5 mmol/L Normal 21.0-32.0 [facility] Comment on above: Performed By: #### A MY LIPA, CMP ####[facility] Jplllnintu5[address] [place], [place] [address]Dr. Flaco Otero Creatinine [Mass/Vol] 1.81 mg/dL Critically high 0.70-1.30 [facility] Comment on above: Performed By: #### A MY LIPA, CMP ####[facility] Mpxieprxdh937[address] [place], [place] [address]Dr. Flaco Otero EGFR-AF SAMOAN 45 mL/min/1.73m2 Critically low >=60 [facility] Comment on above: Performed By: #### A MY LIPA, CMP ####[facility] Phrebuqcxs[address] [place], [place] [address]Dr. Flaco Otero EGFR-NON AF SAMOAN 37 mL/min/1.73m2 Critically low >=60 [facility] Comment on above: Performed By: #### A MY, LIPA, CMP ####[facility] Slichbeoof5306[address] [place], [place] [address]Dr. Flaco Otero Globulin (S) [Mass/Vol] 3.0 g/dL Normal [facility] Comment on above: Performed By: #### A MY, LIPA, CMP ####[facility] Jrczdygcre289[address] [place], [place] [address]Dr. Flaco Otero Glucose [Mass/Vol] 94 mg/dL Normal 74-106 [facility] Comment on above: Performed By: #### A DEMOND GU, CMP ####[facility] Jbpcljvqqb6968[address] [place], [place] [address]Dr. Flaco Otero Potassium [Moles/Vol] 2.5 mmol/L Critically low 3.5-5.1 [facility] Comment on above: Performed By: #### A DEMOND GU, CMP ####[facility] Mizgkppwwu12[address] [place], [place] [address]Dr. Flaco Otero Protein [Mass/Vol] 6.5 g/dL Normal 6.4-8.2 [facility] Comment on above: Performed By: #### A DEMOND GU, CMP ####[facility] Iaucqzclmd78[address] [place], [place] [address]Dr. Flaco Otero Sodium [Moles/Vol] 133 mmol/L Critically low 136-145 [facility] Comment on above: Performed By: #### A DEMOND GU, CMP ####[facility] Ttqruirgzz9[address] [place], [place] [address]Dr. Flaco Otero Urea nitrogen [Mass/Vol] 10.0 mg/dL Normal 7.0-18.0 [facility] Comment on above: Performed By: #### A DEMOND GU, CMP ####[facility] Dstflkdtnz6074[address] [place], [place] [address]Dr. Flaco Otero Urea nitrogen/Creatinine [Mass ratio] 5.5 mg/mg Normal [facility] Comment on above: Performed By: #### A DEMOND GU, CMP ####[facility] Ozdawmyjpw5334[address] [place], [place] [address]Dr. Purviedith Otero PROF CHEM 8 (BAS METB)on Anion gap [Moles/Vol] 16.8 mmol/L Normal [facility] Comment on above: Performed By: #### B MP ####[facility] Piulfmzdvb[address] [place], [place] [address]Dr. Flaco Otero Calcium [Mass/Vol] 8.5 mg/dL Normal 8.5-10.1 [facility] Comment on above: Performed By: #### B MP ####[facility] P[address]qmvdrhqb[address] [place] [address]Dr. Flaco Otero Chloride [Moles/Vol] 107 mmol/L Normal 98-107 [facility] Comment on above: Performed By: #### B MP ####[facility] Lzotmiytxe60[address] [place] [address]Dr. Flaco Otero CO2 [Moles/Vol] 25.0 mmol/L Normal 21.0-32.0 [facility] Comment on above: Performed By: #### B MP ####[facility] Wwexpkzmpn[address] [place], [place] [address]Dr. Flaco Otero Creatinine [Mass/Vol] 1.62 mg/dL Critically high 0.70-1.30 [facility] Comment on above: Performed By: #### B MP ####[facility] Ltomnhrrwe[address] [place], [place] [address]Dr. Purviedith Branden EGFR-AF SAMOAN 51 mL/min/1.73m2 Critically low >=60 [facility] Comment on above: Performed By: #### B MP ####[facility] Cgrfzeljdk[address] [place], [place] [address]Dr. Flaco Branden EGFR-NON AF SAMOAN 42 mL/min/1.73m2 Critically low >=60 [facility] Comment on above: Performed By: #### B MP ####[facility] Cugpmjjcbc0674[address] [place], [place] [address]Dr. Purviedith Branden Glucose [Mass/Vol] 73 mg/dL Critically low 74-106 [facility] Comment on above: Performed By: #### B MP ####[facility] Jaokgvxvik[address] [place], [place] [address]Dr. Flaco Otero Potassium [Moles/Vol] 3.8 mmol/L Normal 3.5-5.1 [facility] Comment on above: Performed By: #### B MP ####[facility] Mlfnxtsrff022[address] [place], [place] [address]Dr. Flaco Otero Sodium [Moles/Vol] 145 mmol/L Normal 136-145 [facility] Comment on above: Performed By: #### B MP ####[facility] [address]ilsoabch[address] [place] [id number]. Flaco Otero Urea nitrogen [Mass/Vol] 10.0 mg/dL Normal 7.0-18.0 [facility] Comment on above: Performed By: #### B MP ####[facility] Ktdpsamfhr65[address] [place] [id number]. Flaco Otero Urea nitrogen/Creatinine [Mass ratio] 6.2 mg/mg Normal [facility] Comment on above: Performed By: #### B MP ####[facility] Hbllxpmoic[address] [place], [place] [id number]. Flaco Otero XR CHEST 1 Von 02-08-2023 XR CHEST 1 V Normal [facility] XR FOOT RT MIN 3 VIEWSon XR FOOT RT MIN 3 VIEWS Normal Th e [facility] CBC AUTO DIFFon 11-18-2022 BASO # 0.1 103/ul Normal 0.0-0.1 [facility] Comment on above: Performed By: #### C BC ####[facility] Hxuaipzqgg154[address] [place], [place] [address]Dr. Flaco Otero Basophils/100 WBC (Bld) 0.6 % Normal 0.2-2.0 [facility] Comment on above: Performed By: #### C BC ####[facility] Ovxuhstxkr[address] [place], [place] [address]Dr. Flaco Otero EO # 0.2 103/ul Normal 0.0-0.7 [facility] Comment on above: Performed By: #### C BC ####[facility] Qtovidbsit[address] [place], [place] [id number]. Flaco Otero Eosinophils/100 WBC (Bld) 1.5 % Normal 0.9-7.0 [facility] Comment on above: Performed By: #### C BC ####[facility] Lhsnibnzdn832[address] [place], [place] [address]Dr. Flaco Otero Erythrocyte distribution width (RBC) [Ratio] 16.2 % Critically high 11.0-15.0 [facility] Comment on above: Performed By: #### C BC ####[facility] Y[address]qlvpe[address] [place] [address]Dr. Flaco Otero Hematocrit (Bld) [Volume fraction] 35.1 % Critically low 42.0-54.0 [facility] Comment on above: Performed By: #### C BC ####[facility] Fdmjyhymmh8[address] [place] [address]Dr. Flaco Otero Hemoglobin (Bld) [Mass/Vol] 11.5 g/dL Critically low 14.0-18.0 [facility] Comment on above: Performed By: #### C BC ####[facility] Byqyzbspvc9795 [place] [address]Dr. Flaco Otero IG # 0.05 10e3/ul Critically high 0.00-0.03 [facility] Comment on above: Performed By: #### C BC ####[facility] Ifeqstikjk[address] [place], [place] [address]Dr. Flaco Otero IG % 0.5 % Normal 0.0-0.5 [facility] Comment on above: Performed By: #### C BC ####[facility] Wlkidqrede0[address] [place], [place] [address]Dr. Flaco Otero LYMPH # 2.1 103/ul Normal 1.2-3.8 [facility] Comment on above: Performed By: #### C BC ####[facility] Dwpwehmiov0583 [place] [address]Dr. Flaco Otero Lymphocytes/100 WBC (Bld) 20.5 % Normal 20.5-60.0 [facility] Comment on above: Performed By: #### C BC ####[facility] Xrtvdqprfh6[address] [place], [place] [address]Dr. Flaco Otero MANUAL DIFF REQ NO Normal [facility] Comment on above: Performed By: #### C BC ####[facility] Xwptgvwbxo25[address] [place], [place] [address]Dr. Flaco Otero MCH (RBC) [Entitic mass] 28.1 pg Normal 25.9-34.0 [facility] Comment on above: Performed By: #### C BC ####[facility] R[address]iel[address]uxi[address] [place] [id number]. Flaco Branden MCHC (RBC) [Mass/Vol] 32.8 g/dL Normal 29.9-35.2 [facility] Comment on above: Performed By: #### C BC ####[facility] Kilchebgsw35[address] [place] [id number]. Flaco Branden MCV (RBC) [Entitic vol] 85.8 fL Normal 80.0-94.0 [facility] Comment on above: Performed By: #### C BC ####[facility] Edxlvvfjfm4034 [place] [id number]. Flaco Otero MONO # 1.2 103/ul Critically high 0.3-0.8 [facility] Comment on above: Performed By: #### C BC ####[facility] Vwdjcnauub69[address] [place], [place] [address]Dr. Flaco Otero Monocytes/100 WBC (Bld) 11.5 % Normal 1.7-12.0 [facility] Comment on above: Performed By: #### C BC ####[facility] Ywuaoaakuj[address] [place], [place] [address]Dr. Purviedith Otero NEUT # 6.5 103/ul Normal 1.4-6.5 [facility] Comment on above: Performed By: #### C BC ####[facility] Yihdmwzpop3[address] [place], [place] [address]Dr. Flaco Otero Neutrophils/100 WBC (Bld) 65.4 % Normal 43.0-75.0 [facility] Comment on above: Performed By: #### C BC ####[facility] Xvlauamzdb84[address] [place], [place] [address]Dr. Flaco Otero Platelet mean volume (Bld) [Entitic vol] 10.3 fL Normal 9.5-13.5 [facility] Comment on above: Performed By: #### C BC ####[facility] Lybihohjjf[address] [place], [place] [id number]. Flaco Otero PLT 399 103/ul Normal 150-450 [facility] Comment on above: Performed By: #### C BC ####[facility] Cnxwpgmaxb5[address] [place] [id number]. Flaco Otero RBC 4.09 106/ul Critically low 4.70-6.10 [facility] Comment on above: Performed By: #### C BC ####[facility] Bjjgvxzazp32[address] [place] [id number]. Flaco Otero WBC 10.0 103/ul Normal 4.0-11.0 [facility] Comment on above: Performed By: #### C BC ####[facility] Kfkhakvoan[address] [place] [address]Dr. Flaco Otero PROF 14(COMP METB)on 023 Albumin [Mass/Vol] 2.4 g/dL Critically low 3.4-5.0 [facility] Comment on above: Performed By: #### C MP ####[facility] Ddveckzroj8750 [place] [address]Dr. Flaco Otero Albumin/Globulin [Mass ratio] 0.6 {ratio} Normal [facility] Comment on above: Performed By: #### C MP ####[facility] Tqbucdnivh49[address] [place] [address]Dr. Flaco Otero ALP [Catalytic activity/Vol] 130 U/L Critically high 46-116 [facility] Comment on above: Performed By: #### C MP ####[facility] Wndxwowfls4676 [place] [address]Dr. Flaco Otero ALT [Catalytic activity/Vol] 12 U/L Critically low 16-63 [facility] Comment on above: Performed By: #### C MP ####[facility] Ckvcsxpaki1127 [place] [address]Dr. Flaco Otero Anion gap [Moles/Vol] 13.6 mmol/L Normal [facility] Comment on above: Performed By: #### C MP ####[facility] Kffqbpvlwh9969 [place] [address]Dr. Flaco Otero AST [Catalytic activity/Vol] 27 U/L Normal 15-37 [facility] Comment on above: Performed By: #### C MP ####[facility] Xxnshxewzl9155 [place] [id number]. Flaco Otero Bilirubin [Mass/Vol] 0.5 mg/dL Normal 0.2-1.0 [facility] Comment on above: Performed By: #### C MP ####[facility] [address]hl[address] [place], [place] [address]Nu. Flaco Otero Calcium [Mass/Vol] 9.2 mg/dL Normal 8.5-10.1 [facility] Comment on above: Performed By: #### C MP ####[facility] Nmaarzadwv44[address] [place] [id number]. Flaco Otero Chloride [Moles/Vol] 98 mmol/L Normal 98-107 [facility] Comment on above: Performed By: #### C MP ####[facility] Xanggqpptq1257 [place] [id number]. Flaco Otero CO2 [Moles/Vol] 24.0 mmol/L Normal 21.0-32.0 [facility] Comment on above: Performed By: #### C MP ####[facility] Mxpwidhyed5787 [place] [phone]. Flaco Otero Creatinine [Mass/Vol] 1.67 mg/dL Critically high 0.70-1.30 [facility] Comment on above: Performed By: #### C MP ####[facility] Xqycppzgeg4522 [place] [id number]. Flaco Otero EGFR-AF SAMOAN 49 mL/min/1.73m2 Critically low >=60 [facility] Comment on above: Performed By: #### C MP ####[facility] Auhndrhjoz7[address] [place] [phone]. Flaco Otero EGFR-NON AF SAMOAN 41 mL/min/1.73m2 Critically low >=60 [facility] Comment on above: Performed By: #### C MP ####[facility] Khvpdlhkot[address] [place], [place] [id number]. Flaco Otero Globulin (S) [Mass/Vol] 4.3 g/dL Normal [facility] Comment on above: Performed By: #### C MP ####[facility] Xipbrdfgqk2985 [place] [id number]. Flaco Otero Glucose [Mass/Vol] 103 mg/dL Normal 74-106 [facility] Comment on above: Performed By: #### C MP ####[facility] Hbegwnypof0751 [place] [id number]. Flaco Otero Potassium [Moles/Vol] 3.6 mmol/L Normal 3.5-5.1 [facility] Comment on above: Performed By: #### C MP ####[facility] Onoogxqqff1626 [place] [id number]. Flaco Otero Protein [Mass/Vol] 6.7 g/dL Normal 6.4-8.2 [facility] Comment on above: Performed By: #### C MP ####[facility] Abgggstdux4[address] [place], [place] [address]Dr. Flaco Otero Sodium [Moles/Vol] 132 mmol/L Critically low 136-145 [facility] Comment on above: Performed By: #### C MP ####[facility] Cbbylfvggd7[address] [place], [place] [address]Dr. Flaco Otero Urea nitrogen [Mass/Vol] 26.0 mg/dL Critically high 7.0-18.0 [facility] Comment on above: Performed By: #### C MP ####[facility] Faqwhfwxth55[address] [place], [place] [address]Dr. Purviedith Branden Urea nitrogen/Creatinine [Mass ratio] 15.6 mg/mg Normal [facility] Comment on above: Performed By: #### C MP ####[facility] Fszivgpaah43[address] [place], [place] [address]Dr. Flaco Branden CBC AUTO DIFFon 11-17-2022 BASO # 0.0 103/ul Normal 0.0-0.1 [facility] Comment on above: Performed By: #### C BC ####[facility] Dlmhhezwex3550[address] [place], [place] [address]Dr. Flaco Branden Basophils/100 WBC (Bld) 0.4 % Normal 0.2-2.0 [facility] Comment on above: Performed By: #### C BC ####[facility] Fncxwipreh3522 [place] [id number]. Flaco Otero EO # 0.0 103/ul Normal 0.0-0.7 [facility] Comment on above: Performed By: #### C BC ####[facility] Lntqhukyxw466[address] [place], [place] [address]Dr. Flaco Otero Eosinophils/100 WBC (Bld) 0.4 % Critically low 0.9-7.0 [facility] Comment on above: Performed By: #### C BC ####[facility] Pctswzqoos32[address] [place], [place] [address]Dr. Flaco Otero Erythrocyte distribution width (RBC) [Ratio] 16.0 % Critically high 11.0-15.0 [facility] Comment on above: Performed By: #### C BC ####[facility] Tfvzysfuzx[address] [place], [place] [address]Dr. Flaco Otero Hematocrit (Bld) [Volume fraction] 36.4 % Critically low 42.0-54.0 [facility] Comment on above: Performed By: #### C BC ####[facility] Snffrxgwhc[address] [place], [place] [address]Dr. Flaco Otero Hemoglobin (Bld) [Mass/Vol] 12.0 g/dL Critically low 14.0-18.0 [facility] Comment on above: Performed By: #### C BC ####[facility] Rzhzctyxmk[address] [place], [place] [address]Dr. Flaco Otero IG # 0.03 10e3/ul Normal 0.00-0.03 [facility] Comment on above: Performed By: #### C BC ####[facility] Voagmcqocl[address] [place], [place] [address]Dr. Flaco Otero IG % 0.3 % Normal 0.0-0.5 [facility] Comment on above: Performed By: #### C BC ####[facility] Bcdosiybjj[address] [place], [place] [address]Dr. Purviedith Otero LYMPH # 1.6 103/ul Normal 1.2-3.8 [facility] Comment on above: Performed By: #### C BC ####[facility] Vlzkprhhux9[address] [place] [id number]. Purviedith Otero Lymphocytes/100 WBC (Bld) 14.7 % Critically low 20.5-60.0 [facility] Comment on above: Performed By: #### C BC ####[facility] Tzewbbmfxh26[address] [place] [id number]. Flaco Otero MANUAL DIFF REQ NO Normal [facility] Comment on above: Performed By: #### C BC ####[facility] Vacuorlxar4[address] [place] [phone]. Flaco Otero MCH (RBC) [Entitic mass] 28.2 pg Normal 25.9-34.0 [facility] Comment on above: Performed By: #### C BC ####[facility] Afxvxzbhmu[address] [place] [address]Dr. Flaco Otero MCHC (RBC) [Mass/Vol] 33.0 g/dL Normal 29.9-35.2 [facility] Comment on above: Performed By: #### C BC ####[facility] Cxjhroicya4[address] [place] [id number]. Flaco Otero MCV (RBC) [Entitic vol] 85.4 fL Normal 80.0-94.0 [facility] Comment on above: Performed By: #### C BC ####[facility] Lyqkpseylo[address] [place], [place] [id number]. Flaco Otero MONO # 1.4 103/ul Critically high 0.3-0.8 The [facility] Comment on above: Performed By: #### C BC ####[facility] Ileirwrgtb4066 [place] [id number]. Flaco Otero Monocytes/100 WBC (Bld) 12.6 % Critically high 1.7-12.0 [facility] Comment on above: Performed By: #### C BC ####[facility] Jyblpcrjjy44[address] [place] [id number]. Flaco Otero NEUT # 7.7 103/ul Critically high 1.4-6.5 [facility] Comment on above: Performed By: #### C BC ####[facility] Lwkuwnvven45[address] [place] [id number]. Flaco Otero Neutrophils/100 WBC (Bld) 71.6 % Normal 43.0-75.0 [facility] Comment on above: Performed By: #### C BC ####[facility] Qenrwjiuvk6930 [place] [id number]. Flaco Otero Platelet mean volume (Bld) [Entitic vol] 9.5 fL Normal 9.5-13.5 [facility] Comment on above: Performed By: #### C BC ####[facility] Ljuzxwcuic9352 [place] [address]Dr. Flaco Otero PLT 462 103/ul Critically high 150-450 [facility] Comment on above: Performed By: #### C BC ####[facility] Hfbxeeqbwg1875 [place] [address]Dr. Flaco Branden RBC 4.26 106/ul Critically low 4.70-6.10 [facility] Comment on above: Performed By: #### C BC ####[facility] Ddksxbpinc6082 [place] [address]Dr. Flaco Otero WBC 10.8 103/ul Normal 4.0-11.0 [facility] Comment on above: Performed By: #### C BC ####[facility] Peripqitpv7412 [place] [address]Dr. Flaco Otero MRI CSPINE WO CONon 11-17-19 23 MRI CSPINE WO CON Normal [facility] PROF 14(COMP METB)on 023 Albumin [Mass/Vol] 2.4 g/dL Critically low 3.4-5.0 [facility] Comment on above: Performed By: #### C MP ####[facility] Sloefaswvq1821 [place] [address]Dr. Flaco Otero Albumin/Globulin [Mass ratio] 0.5 {ratio} Normal [facility] Comment on above: Performed By: #### C MP ####[facility] Qlcocoorqe4986 [place] [address]Dr. Flaco Branden ALP [Catalytic activity/Vol] 132 U/L Critically high 46-116 [facility] Comment on above: Performed By: #### C MP ####[facility] Jzliimyvtz[address] [place], [place] [address]Dr. Flaco Branden ALT [Catalytic activity/Vol] 18 U/L Normal 16-63 [facility] Comment on above: Performed By: #### C MP ####[facility] Tcqihonfvp25[address] [place], [place] [address]Dr. Purviedith Branden Anion gap [Moles/Vol] 15.7 mmol/L Normal Th e [facility] Comment on above: Performed By: #### C MP ####[facility] Paanmiopyo[address] [place], [place] [address]Dr. Flaco Branden AST [Catalytic activity/Vol] 26 U/L Normal 15-37 [facility] Comment on above: Performed By: #### C MP ####[facility] Oswxpigggm0934[address] [place], [place] [address]Dr. Flaco Branden Bilirubin [Mass/Vol] 0.5 mg/dL Normal 0.2-1.0 [facility] Comment on above: Performed By: #### C MP ####[facility] Ksdtdjexwa37[address] [place], [place] [address]Dr. Flaco Otero Calcium [Mass/Vol] 9.2 mg/dL Normal 8.5-10.1 [facility] Comment on above: Performed By: #### C MP ####[facility] Towizlhkdn597[address] [place], [place] [address]Dr. Flaco Otero Chloride [Moles/Vol] 99 mmol/L Normal 98-107 [facility] Comment on above: Performed By: #### C MP ####[facility] Unkodnujjm422[address] [place], [place] [address]Dr. Flaco Otero CO2 [Moles/Vol] 23.9 mmol/L Normal 21.0-32.0 The [facility] Comment on above: Performed By: #### C MP ####[facility] Iizykkppvw01[address] [place], [place] [address]Dr. Flaco Otero Creatinine [Mass/Vol] 1.65 mg/dL Critically high 0.70-1.30 [facility] Comment on above: Performed By: #### C MP ####[facility] Bfbwqekbdv0543 [place] [address]Dr. Flaco Branden EGFR-AF SAMOAN 50 mL/min/1.73m2 Critically low >=60 [facility] Comment on above: Performed By: #### C MP ####[facility] Vrodrfytln4733 [place] [address]Dr. Purviedith Branden EGFR-NON AF SAMOAN 41 mL/min/1.73m2 Critically low >=60 [facility] Comment on above: Performed By: #### C MP ####[facility] Ivjknyruha5509 [place] [address]Dr. Flaco Otero Globulin (S) [Mass/Vol] 4.5 g/dL Normal [facility] Comment on above: Performed By: #### C MP ####[facility] Cuapmqchug2647 [place] [address]Dr. Flaco Otero Glucose [Mass/Vol] 116 mg/dL Critically high 74-106 [facility] Comment on above: Performed By: #### C MP ####[facility] Ovebeegfgd7940 [place] [address]Dr. Flaco Otero Potassium [Moles/Vol] 3.6 mmol/L Normal 3.5-5.1 [facility] Comment on above: Performed By: #### C MP ####[facility] Bwaleijpyw9251 [place] [address]Dr. Flaco Otero Protein [Mass/Vol] 6.9 g/dL Normal 6.4-8.2 [facility] Comment on above: Performed By: #### C MP ####[facility] Hybzkugsic9481 [place] [address]Dr. Flaco Otero Sodium [Moles/Vol] 135 mmol/L Critically low 136-145 Th [facility] Comment on above: Performed By: #### C MP ####[facility] Jumnhcyktw[address] [place], [place] [address]Dr. Flaco Otero Urea nitrogen [Mass/Vol] 21.0 mg/dL Critically high 7.0-18.0 [facility] Comment on above: Performed By: #### C MP ####[facility] Wqloseqsup6879 [place] [address]Dr. Flaco Otero Urea nitrogen/Creatinine [Mass ratio] 12.7 mg/mg Normal [facility] Comment on above: Performed By: #### C MP ####[facility] Mimlwezzjn6284 [place] [address]Dr. Flaco Otero CBC W MANUAL DIFFon 11-16-19 ATYPICAL LYMPH # Normal [facility] Comment on above: Performed By: #### C BCMAN ####[facility] Zailvjbznd[address] [place], [place] [address]Dr. Flaco Otero ATYPICAL LYMPH % Normal [facility] Comment on above: Performed By: #### C BCMAN ####[facility] Ddwdujuvhi24[address] [place], [place] [address]Dr. Flaco Otero BAND # 0.0 103/ul Normal 0.0-0.3 [facility] Comment on above: Performed By: #### C BCMAN ####[facility] Iopgmehyxf2[address] [place], [place] [address]Dr. Flaco Otero BAND % 0 % Normal 0-5 [facility] Comment on above: Performed By: #### C BCMAN ####[facility] Utirfouirb[address] [place], [place] [address]Dr. Flaco Otero BASOM # 0.00 103/ul Normal 0.00-0.10 [facility] Comment on above: Performed By: #### C BCMAN ####[facility] Krmssurpns[address] [place] [address]Dr. Flaco Otero BASOM % 0.0 % Critically low 0.2-2.0 [facility] Comment on above: Performed By: #### C BCMAN ####[facility] Xmqtszqlrm[address] [place], [place] [address]Dr. Flaco Otero BLAST # Normal [facility] Comment on above: Performed By: #### C BCMAN ####[facility] Vrtjuunmno[address] [place] [id number]. Flaco Otero BLAST % Normal [facility] Comment on above: Performed By: #### C C[place] ####[facility] Ixotidfmth6902 [place] [id number]. Flaco Otero CORRECTED WBC Normal 4.0-11.0 [facility] Comment on above: Performed By: #### C C[place] ####[facility] Bderusgfsz3812 [place] [id number]. Flaco Otero EOS # 0.00 103/ul Normal 0.00-0.70 [facility] Comment on above: Performed By: #### C [place] ####[facility] Lbwzboewzt1343 [place] [address]Dr. Flaco Otero EOS% 0.0 % Critically low 0.9-7.0 [facility] Comment on above: Performed By: #### C C[place] ####[facility] Icrhmlsmbu2631 [place] [id number]. Flaco Otero HCT 35.9 % Critically low 42.0-54.0 [facility] Comment on above: Performed By: #### C C[place] ####[facility] Ddqcjycjvs04[address] [place], [place] [id number]. Flaco Otero HGB 12.0 g/dl Critically low 14.0-18.0 [facility] Comment on above: Performed By: #### C [place] ####[facility] Ioupkzmbty6188 [place] [id number]. Flaco Otero LYMPHM # 1.42 103/ul Normal 1.20-3.80 [facility] Comment on above: Performed By: #### C [place] ####[facility] Brldrvmawu9[address] [place], [place] [id number]. Flaco Otero LYMPHM% 11.0 % Critically low 20.5-60.0 [facility] Comment on above: Performed By: #### C [place] ####[facility] Dnwpnfveof6[address] [place], [place] [id number]. Flaco Otero MCH 28.6 pg Normal 25.9-34.0 [facility] Comment on above: Performed By: #### C [place] ####[facility] Mccuctmoiv4011 [place] [id number]. Flaco Otero MCHC 33.4 g/dl Normal 29.9-35.2 [facility] Comment on above: Performed By: #### C [place] ####[facility] Hvxeqvfvtc3635 [place] [id number]. Flaco Otero MCV 85.5 fL Normal 80.0-94.0 [facility] Comment on above: Performed By: #### C BCGAYATHRI ####[facility] Dnqoelutnj[address] [place], [place] [id number]. Flaco Otero METAMYELOCYTE # Normal [facility] Comment on above: Performed By: #### C C[place] ####[facility] Yaqiaiyznc[address] [place], [place] [id number]. Flaco Otero METAMYELOCYTE % Normal [facility] Comment on above: Performed By: #### C [place] ####[facility] Eatsfjnbxr6202 [place] [id number]. lFaco Otero MONOM# 1.42 103/ul Critically high 0.30-0.80 [facility] Comment on above: Performed By: #### C C[place] ####[facility] Onuenfxbjo5970 [place] [id number]. Flaco Otero MONOM% 11.0 % Normal 1.7-12.0 [facility] Comment on above: Performed By: #### C C[place] ####[facility] Wcevgwrsop6576 [place] [id number]. Flaco Otero MPV 9.5 fL Normal 9.5-13.5 [facility] Comment on above: Performed By: #### C C[place] ####[facility] Fmjjkedkln5870 [place] [id number]. Flaco Otero MYELOCYTE # Normal [facility] Comment on above: Performed By: #### C C[place] ####[facility] Qtrannqxuw89[address] [place], [place] [id number]. Flaco Otero MYELOCYTE % Normal [facility] Comment on above: Performed By: #### C C[place] ####[facility] Ihyoxiaqub6082 [place], [place] [address]Jd. Flaco Otero NRBC Normal [facility] Comment on above: Performed By: #### C C[place] ####[facility] Zsjbkcidce1630 [place], [place] [address]Iq. Flaco Otero PLT 469 103/ul Critically high 150-450 [facility] Comment on above: Performed By: #### C C[place] ####[facility] Crclhughqo1940 [place], [place] [address]Ai. Flaco Otero RBC 4.20 106/ul Critically low 4.70-6.10 [facility] Comment on above: Performed By: #### C [place] ####[facility] Lamdnxyvuq8766 [place] [id number]. Flaco Otero RDW 16.3 % Critically high 11.0-15.0 [facility] Comment on above: Performed By: #### C [place] ####[facility] Odunzxealw1139 [place], [place] [address]Di. Flaco Branden SEG # 10.06 103/ul Critically high 1.40-6.50 [facility] Comment on above: Performed By: #### C [place] ####[facility] Thclwyphtw7428 [place], [place] [address]Yj. Flaco Otero SEG % 78.0 % Critically high 43.0-75.0 [facility] Comment on above: Performed By: #### C C[place] ####[facility] Xhzfbdlcnp1399 [place], [place] [address]Pa. Flaco Otero WBC 12.9 103/ul Critically high 4.0-11.0 [facility] Comment on above: Performed By: #### C [place] ####[facility] Muqtggkusb9615 [place], [place] [address]SkJeramie Otero PROF 14(COMP METB)on 023 Albumin [Mass/Vol] 2.5 g/dL Critically low 3.4-5.0 [facility] Comment on above: Performed By: #### C MP ####[facility] Fevnnzwmhu4803 [place] [address]Dr. Flaco Branden Albumin/Globulin [Mass ratio] 0.6 {ratio} Normal [facility] Comment on above: Performed By: #### C MP ####[facility] Millpblfiu5249 [place] [address]Dr. Flaco Branden ALP [Catalytic activity/Vol] 118 U/L Critically high 46-116 [facility] Comment on above: Performed By: #### C MP ####[facility] Ixyrekvxqx[address] [place], [place] [address]Dr. Flaco Branden ALT [Catalytic activity/Vol] 12 U/L Critically low 16-63 [facility] Comment on above: Performed By: #### C MP ####[facility] Hgpubqvine50[address] [place], [place] [address]Dr. Purviedith Branden Anion gap [Moles/Vol] 15.8 mmol/L Normal [facility] Comment on above: Performed By: #### C MP ####[facility] Msnotlkwgz29[address] [place], [place] [address]Dr. Flaco Branden AST [Catalytic activity/Vol] 22 U/L Normal 15-37 [facility] Comment on above: Performed By: #### C MP ####[facility] Iqhdmelfig49[address] [place], [place] [address]Dr. Flaco Otero Bilirubin [Mass/Vol] 0.8 mg/dL Normal 0.2-1.0 [facility] Comment on above: Performed By: #### C MP ####[facility] Xgictlfzcv2353 [place] [address]Dr. Flaco Otero Calcium [Mass/Vol] 8.9 mg/dL Normal 8.5-10.1 [facility] Comment on above: Performed By: #### C MP ####[facility] Dcjbjwbpmh3628 [place] [address]Dr. Flaco Otero Chloride [Moles/Vol] 97 mmol/L Critically low 98-107 [facility] Comment on above: Performed By: #### C MP ####[facility] Nxqrndjuye1314 [place] [id number]. Flaco Otero CO2 [Moles/Vol] 22.8 mmol/L Normal 21.0-32.0 [facility] Comment on above: Performed By: #### C MP ####[facility] Pgueliqpci4214 [place] [id number]. Flaco Otero Creatinine [Mass/Vol] 1.64 mg/dL Critically high 0.70-1.30 [facility] Comment on above: Performed By: #### C MP ####[facility] Yczcgchzzb7425 [place] [id number]. Flaco Otero EGFR-AF SAMOAN 50 mL/min/1.73m2 Critically low >=60 [facility] Comment on above: Performed By: #### C MP ####[facility] Jdazeniiyk0338 [place] [address]Dr. Flaco Otero EGFR-NON AF SAMOAN 42 mL/min/1.73m2 Critically low >=60 [facility] Comment on above: Performed By: #### C MP ####[facility] Gbwvflyprc2072 [place] [address]Dr. Flaco Otero Globulin (S) [Mass/Vol] 4.2 g/dL Normal [facility] Comment on above: Performed By: #### C MP ####[facility] Ocfcbcykon4596 [place] [address]Dr. Flaco Otero Glucose [Mass/Vol] 110 mg/dL Critically high 74-106 [facility] Comment on above: Performed By: #### C MP ####[facility] Fowvuqktfc0294 [place] [id number]. Flaco Otero Potassium [Moles/Vol] 3.6 mmol/L Normal 3.5-5.1 [facility] Comment on above: Performed By: #### C MP ####[facility] Bfqdpijhbc6132 [place] [id number]. Flaco Otero Protein [Mass/Vol] 6.7 g/dL Normal 6.4-8.2 [facility] Comment on above: Performed By: #### C MP ####[facility] Accgrhapbk9383 [place] [address]Dr. Flaco Branden Sodium [Moles/Vol] 132 mmol/L Critically low 136-145 [facility] Comment on above: Performed By: #### C MP ####[facility] Empjzrbqku04[address] [place], [place] [address]Dr. Flaco Branden Urea nitrogen [Mass/Vol] 20.0 mg/dL Critically high 7.0-18.0 [facility] Comment on above: Performed By: #### C MP ####[facility] Wqlvhgxmkh[address] [place], [place] [address]Dr. Flaco Branden Urea nitrogen/Creatinine [Mass ratio] 12.2 mg/mg Normal [facility] Comment on above: Performed By: #### C MP ####[facility] Nshxtwkvuw6039[address] [place], [place] [address]Dr. Purviedith Otero AMMONIAon 11-15-2022 Ammonia (P) [Moles/Vol] 22 umol/L Normal 11-32 [facility] Comment on above: Performed By: #### A MM ####[facility] Hrvztmenhq0616[address] [place], [place] [address]Dr. Flaco Branden CBC AUTO DIFFon 11-15-2022 BASO # 0.0 103/ul Normal 0.0-0.1 [facility] Comment on above: Performed By: #### C BC ####[facility] Mgeyutikmj7340[address] [place], [place] [address]Dr. Purviedith Otero Basophils/100 WBC (Bld) 0.3 % Normal 0.2-2.0 [facility] Comment on above: Performed By: #### C BC ####[facility] Idqmtwktre7148[address] [place], [place] [address]Dr. Flaco Otero EO # 0.0 103/ul Normal 0.0-0.7 [facility] Comment on above: Performed By: #### C BC ####[facility] Ebozytkxrr7786[address] [place], [place] [address]Dr. Flaco Otero Eosinophils/100 WBC (Bld) 0.3 % Critically low 0.9-7.0 [facility] Comment on above: Performed By: #### C BC ####[facility] Zukprzexmu5867[address] [place], [place] [address]DrJeramie Otero Erythrocyte distribution width (RBC) [Ratio] 16.3 % Critically high 11.0-15.0 [facility] Comment on above: Performed By: #### C BC ####[facility] Tyuctukjqw0123[address] [place], [place] [address]DrJeramie Otero Hematocrit (Bld) [Volume fraction] 39.2 % Critically low 42.0-54.0 [facility] Comment on above: Performed By: #### C BC ####[facility] Jgmphgxdda2455[address] [place], [place] [address]DrJeramie Otero Hemoglobin (Bld) [Mass/Vol] 12.9 g/dL Critically low 14.0-18.0 [facility] Comment on above: Performed By: #### C BC ####[facility] Pecheyktcy44[address] [place], [place] [address]DrJeramie Otero IG # 0.05 10e3/ul Critically high 0.00-0.03 [facility] Comment on above: Performed By: #### C BC ####[facility] Jfqbjsxmia3214[address] [place], [place] [address]DrJeramie Otero IG % 0.4 % Normal 0.0-0.5 [facility] Comment on above: Performed By: #### C BC ####[facility] Lkjcikxesh64[address] [place], [place] [address]DrJeramie Otero LYMPH # 1.6 103/ul Normal 1.2-3.8 [facility] Comment on above: Performed By: #### C BC ####[facility] Bjipctxgrj244[address] [place], [place] [address]DrJeramie Otero Lymphocytes/100 WBC (Bld) 12.5 % Critically low 20.5-60.0 [facility] Comment on above: Performed By: #### C BC ####[facility] Hqszochtks[address] [place], [place] [address]DrJeramie Otero MANUAL DIFF REQ NO Normal [facility] Comment on above: Performed By: #### C BC ####[facility] Umrcrllerq9667 [place] [id number] Otero MCH (RBC) [Entitic mass] 28.7 pg Normal 25.9-34.0 [facility] Comment on above: Performed By: #### C BC ####[facility] Oxemkooprn2374[address] [place], [place] [address]DrJeramie Otero MCHC (RBC) [Mass/Vol] 32.9 g/dL Normal 29.9-35.2 [facility] Comment on above: Performed By: #### C BC ####[facility] Thjfrmrdag73[address] [place], [place] [address]DrJeramie Otero MCV (RBC) [Entitic vol] 87.1 fL Normal 80.0-94.0 [facility] Comment on above: Performed By: #### C BC ####[facility] Bdcfoqvonu32[address] [place], [place] [address]DrJeramie Otero MONO # 1.4 103/ul Critically high 0.3-0.8 [facility] Comment on above: Performed By: #### C BC ####[facility] Wynbmqepsg[address] [place], [place] [address]DrJeramie Otero Monocytes/100 WBC (Bld) 11.2 % Normal 1.7-12.0 [facility] Comment on above: Performed By: #### C BC ####[facility] Lwhsyatbni[address] [place], [place] [address]DrJeramie Otero NEUT # 9.4 103/ul Critically high 1.4-6.5 [facility] Comment on above: Performed By: #### C BC ####[facility] Dxskopwwpj49[address] [place], [place] [address]DrJeramie Otero Neutrophils/100 WBC (Bld) 75.3 % Critically high 43.0-75.0 [facility] Comment on above: Performed By: #### C BC ####[facility] Erqwrxmwyd46[address] [place], [place] [address]DrJeramie Otero Platelet mean volume (Bld) [Entitic vol] 9.3 fL Critically low 9.5-13.5 [facility] Comment on above: Performed By: #### C BC ####[facility] Jlgignfvsg9780 [place] [address]Dr. Flaco Otero PLT 532 103/ul Critically high 150-450 [facility] Comment on above: Performed By: #### C BC ####[facility] Mchyjjhvta4497 [place] [address]Dr. Flaco Otero RBC 4.50 106/ul Critically low 4.70-6.10 [facility] Comment on above: Performed By: #### C BC ####[facility] Deahwwznwf7717 [place] [address]DrJeramie Otero WBC 12.5 103/ul Critically high 4.0-11.0 [facility] Comment on above: Performed By: #### C BC ####[facility] Hbxufhrfpg5176 [place] [address]DrJeramie Otero PROF 14(COMP METB)on 023 Albumin [Mass/Vol] 3.0 g/dL Critically low 3.4-5.0 [facility] Comment on above: Performed By: #### C MP ####[facility] Bqyhohpckw1903 [place] [address]DrJeramie Otero Albumin/Globulin [Mass ratio] 0.5 {ratio} Normal [facility] Comment on above: Performed By: #### C MP ####[facility] Pnusb[address]znr[address] [place] [address]DrJeramie Otero ALP [Catalytic activity/Vol] 103 U/L Normal 46-116 [facility] Comment on above: Performed By: #### C MP ####[facility] Sonnagiwve6206 [place] [address]DrJeramie Otero ALT [Catalytic activity/Vol] 12 U/L Critically low 16-63 [facility] Comment on above: Performed By: #### C MP ####[facility] Lokdzufxin[address] [place], [place] [address]DrJeramie Sam Branden Anion gap [Moles/Vol] 16.8 mmol/L Normal [facility] Comment on above: Performed By: #### C MP ####[facility] Hcmctnnerq58[address] [place] [address]Dr. Flaco Otero AST [Catalytic activity/Vol] 16 U/L Normal 15-37 [facility] Comment on above: Performed By: #### C MP ####[facility] Scnjvobiqe8086[address] [place], [place] [address]Dr. Flaco Branden Bilirubin [Mass/Vol] 1.0 mg/dL Normal 0.2-1.0 [facility] Comment on above: Performed By: #### C MP ####[facility] Yhtlaxdlob8[address] [place], [place] [address]Dr. Purviedith Otero Calcium [Mass/Vol] 9.8 mg/dL Normal 8.5-10.1 [facility] Comment on above: Performed By: #### C MP ####[facility] Gaqbndfxfr4[address] [place], [place] [address]Dr. uPrviedith Otero Chloride [Moles/Vol] 98 mmol/L Normal 98-107 [facility] Comment on above: Performed By: #### C MP ####[facility] Namclcihqq4225[address] [place], [place] [address]Dr. Purviedith Branden CO2 [Moles/Vol] 24.3 mmol/L Normal 21.0-32.0 [facility] Comment on above: Performed By: #### C MP ####[facility] Alnsoqsmhc0750[address] [place], [place] [address]Dr. Flaco Otero Creatinine [Mass/Vol] 1.86 mg/dL Critically high 0.70-1.30 [facility] Comment on above: Performed By: #### C MP ####[facility] Syvntjcwjh35[address] [place], [place] [address]Dr. Flaco Otero EGFR-AF SAMOAN 44 mL/min/1.73m2 Critically low >=60 [facility] Comment on above: Performed By: #### C MP ####[facility] Mqnkyvnyyl7667[address] [place], [place] [address]Dr. Flaco Otero EGFR-NON AF SAMOAN 36 mL/min/1.73m2 Critically low >=60 [facility] Comment on above: Performed By: #### C MP ####[facility] Tbxztlcwxd8234 [place] [address]Dr. Flaco Otero Globulin (S) [Mass/Vol] 5.6 g/dL Normal [facility] Comment on above: Performed By: #### C MP ####[facility] Ravqxxeoqf145[address] [place], [place] [address]Dr. Flaco Oetro Glucose [Mass/Vol] 108 mg/dL Critically high 74-106 [facility] Comment on above: Performed By: #### C MP ####[facility] Wjjphrvgtl0694[address] [place], [place] [address]Dr. Flaco Otero Potassium [Moles/Vol] 4.1 mmol/L Normal 3.5-5.1 [facility] Comment on above: Performed By: #### C MP ####[facility] Nycypzacux4007[address] [place], [place] [address]Dr. Flaco Otero Protein [Mass/Vol] 8.6 g/dL Critically high 6.4-8.2 [facility] Comment on above: Performed By: #### C MP ####[facility] Mszyyxudow5426[address] [place], [place] [address]Dr. Flaco Otero Sodium [Moles/Vol] 135 mmol/L Critically low 136-145 [facility] Comment on above: Performed By: #### C MP ####[facility] Avigaaenax2139[address] [place], [place] [address]Dr. Flaco Otero Urea nitrogen [Mass/Vol] 18.0 mg/dL Normal 7.0-18.0 [facility] Comment on above: Performed By: #### C MP ####[facility] Soduqqigbw60[address] [place], [place] [address]Dr. Flaco Otero Urea nitrogen/Creatinine [Mass ratio] 9.7 mg/mg Normal [facility] Comment on above: Performed By: #### C MP ####[facility] Qprtfdxdfx35[address] [place], [place] [address]Dr. lFaco Otero CT HEAD WO CONon 11-14-2022 CT HEAD WO CON Normal [facility] MRI LSPINE WO CONon 11-14-19 MRI LSPINE WO CON Normal [facility] CBC AUTO DIFFon 11-13-2022 BASO # 0.0 103/ul Normal 0.0-0.1 [facility] Comment on above: Performed By: #### C BC ####[facility] Evrnynnruk[address] [place] [address]Dr. Flaco Otero Basophils/100 WBC (Bld) 0.4 % Normal 0.2-2.0 [facility] Comment on above: Performed By: #### C BC ####[facility] Kiizoyvkwo2298 [place] [address]Dr. Flaco Otero EO # 0.1 103/ul Normal 0.0-0.7 [facility] Comment on above: Performed By: #### C BC ####[facility] Uhdygwnepi3612 [place] [address]Dr. Flaco Otero Eosinophils/100 WBC (Bld) 1.0 % Normal 0.9-7.0 [facility] Comment on above: Performed By: #### C BC ####[facility] Ckrqmmwkbg2474[address] [place], [place] [address]Dr. Flaco Otero Erythrocyte distribution width (RBC) [Ratio] 15.9 % Critically high 11.0-15.0 [facility] Comment on above: Performed By: #### C BC ####[facility] Jhmdazkune7586[address] [place], [place] [address]Dr. Flaco Otero Hematocrit (Bld) [Volume fraction] 35.9 % Critically low 42.0-54.0 [facility] Comment on above: Performed By: #### C BC ####[facility] Qlzbalhfro1796[address] [place], [place] [address]Dr. Flaco Otero Hemoglobin (Bld) [Mass/Vol] 11.9 g/dL Critically low 14.0-18.0 [facility] Comment on above: Performed By: #### C BC ####[facility] Zbqzsqjhqw9716[address] [place], [place] [address]DrJeramie Otero IG # 0.03 10e3/ul Normal 0.00-0.03 [facility] Comment on above: Performed By: #### C BC ####[facility] Hujjhgzxxk0175 [place] [address]DrJeramie Otero IG % 0.4 % Normal 0.0-0.5 [facility] Comment on above: Performed By: #### C BC ####[facility] Rqpxextzfb7888 [place] [address]DrJeramie Otero LYMPH # 1.8 103/ul Normal 1.2-3.8 [facility] Comment on above: Performed By: #### C BC ####[facility] Aykrkfoelm278[address] [place], [place] [address]DrJeramie Otero Lymphocytes/100 WBC (Bld) 22.2 % Normal 20.5-60.0 [facility] Comment on above: Performed By: #### C BC ####[facility] Rdatpnerfs407[address] [place], [place] [address]DrJeramie Otero MANUAL DIFF REQ NO Normal [facility] Comment on above: Performed By: #### C BC ####[facility] Nrfmdzgwjy3313[address] [place], [place] [address]DrJeramie Otero MCH (RBC) [Entitic mass] 28.8 pg Normal 25.9-34.0 [facility] Comment on above: Performed By: #### C BC ####[facility] Jrarthwzlv0144[address] [place], [place] [address]DrJeramie Otero MCHC (RBC) [Mass/Vol] 33.1 g/dL Normal 29.9-35.2 [facility] Comment on above: Performed By: #### C BC ####[facility] Bzgjoiamgz2465 [place] [address]DrJeramie Otero MCV (RBC) [Entitic vol] 86.9 fL Normal 80.0-94.0 [facility] Comment on above: Performed By: #### C BC ####[facility] Ouzaoskbdo069[address] [place], [place] [address]DrJeramie Otero MONO # 1.0 103/ul Critically high 0.3-0.8 [facility] Comment on above: Performed By: #### C BC ####[facility] Dnswkxuyfg7704 [place] [id number]. Flaco Otero Monocytes/100 WBC (Bld) 13.0 % Critically high 1.7-12.0 [facility] Comment on above: Performed By: #### C BC ####[facility] Rvuimdrxsb7116 [place] [address]Dr. Flaco Otero NEUT # 5.0 103/ul Normal 1.4-6.5 [facility] Comment on above: Performed By: #### C BC ####[facility] Qfzphpcioc6787 [place] [id number]. Flaco Otero Neutrophils/100 WBC (Bld) 63.0 % Normal 43.0-75.0 [facility] Comment on above: Performed By: #### C BC ####[facility] Hpajnhohlm28[address] [place], [place] [address]Dr. Flaco Otero Platelet mean volume (Bld) [Entitic vol] 9.5 fL Normal 9.5-13.5 [facility] Comment on above: Performed By: #### C BC ####[facility] Krvhqdsjpl[address] [place], [place] [id number]. Flaco Otero PLT 335 103/ul Normal 150-450 [facility] Comment on above: Performed By: #### C BC ####[facility] Yalbgdfazh1003 [place] [id number]. Flaco Otero RBC 4.13 106/ul Critically low 4.70-6.10 [facility] Comment on above: Performed By: #### C BC ####[facility] Hexpmxohmi2833 [place] [id number]. Flaco Otero WBC 7.9 103/ul Normal 4.0-11.0 [facility] Comment on above: Performed By: #### C BC ####[facility] Jnefntwvnf[address] [place], [place] [id number] Flaco Otero ER URINE PROFILEon 3 Bilirubin Ql (U) Negative Normal NEGATIVE [facility] Comment on above: Performed By: #### E RUR ####[facility] Kmafmvsczc29[address] [place], [place] [address]Dr. Flaco Otero Clarity (U) CLEAR Normal CLEAR [facility] Comment on above: Performed By: #### E RUR ####[facility] Obzcxynwfw682[address] [place], [place] [address]Dr. Flaco Otero Color (U) LT. YELLOW Normal YELLOW [facility] Comment on above: Performed By: #### E RUR ####[facility] Piwmfmbczf9715[address] [place], [place] [address]Dr. Flaco Otero ERUAHD A micrscopic examination will be performed if indicated. Normal [facility] Comment on above: Performed By: #### E RUR ####[facility] Hjvvwekdeh495[address] [place], [place] [address]Dr. Purviedith Branden Glucose Ql (U) Negative Normal NEGATIVE [facility] Comment on above: Performed By: #### E RUR ####[facility] Fkcsqaqweb8586[address] [place], [place] [address]Dr. Flaco Otero Hemoglobin Ql (U) Negative Normal NEGATIVE [facility] Comment on above: Performed By: #### E RUR ####[facility] Fdljtsxuhd1735[address] [place], [place] [address]Dr. Flaco Otero Ketones Ql (U) Negative Normal NEGATIVE [facility] Comment on above: Performed By: #### E RUR ####[facility] Ydsndlwvzm3301[address] [place], [place] [address]Dr. Flaco Otero LEUKOCYTES Negative Normal NEGATIVE [facility] Comment on above: Performed By: #### E RUR ####[facility] Licpuqffjv6064[address] [place], [place] [address]Dr. Flaco Otero Nitrite Ql (U) Negative Normal NEGATIVE [facility] Comment on above: Performed By: #### E RUR ####[facility] Yendwvfofs527[address] [place], [place] [address]Dr. Flaco Otero pH (U) 5.5 [pH] Normal 5-9 [facility] Comment on above: Performed By: #### E RUR ####[facility] Vtkbswhnki5814 [place] [address]Dr. Flaco Otero SPEC GRAVITY <=1.005 Abnormal 1.005-<=1.02 5 [facility] Comment on above: Performed By: #### E RUR ####[facility] Xxoyakcakb5101 [place] [address]Dr. Flaco Otero UA PROTEIN Negative Normal NEGATIVE/ TRACE [facility] Comment on above: Performed By: #### E RUR ####[facility] Dvvyammxgy0578[address] [place], [place] [address]Dr. Flaco Otero UR MICRO IND NOT INDICATED Normal [facility] Comment on above: Performed By: #### E RUR ####[facility] Hliteorsqb837[address] [place], [place] [address]Dr. Flaco Otero Urobilinogen Qn (U) 0.2 {Tuan'U}/dL Normal 0.2 - 1. 0 [facility] Comment on above: Performed By: #### E RUR ####[facility] Ahaqgbmizx[address] [place], [place] [address]Dr. Flaco Otero PROF CHEM 8 (BAS METB)on Anion gap [Moles/Vol] 13.6 mmol/L Normal [facility] Comment on above: Performed By: #### B MP ####[facility] Uoprqfzagu1500[address] [place], [place] [address]Dr. Flaco Otero Calcium [Mass/Vol] 9.2 mg/dL Normal 8.5-10.1 [facility] Comment on above: Performed By: #### B MP ####[facility] Lyzzvekvte6910[address] [place], [place] [address]Dr. Flaco Otero Chloride [Moles/Vol] 104 mmol/L Normal 98-107 [facility] Comment on above: Performed By: #### B MP ####[facility] Dahyffxtni0926[address] [place], [place] [address]Dr. Flaco Otero CO2 [Moles/Vol] 24.9 mmol/L Normal 21.0-32.0 [facility] Comment on above: Performed By: #### B MP ####[facility] Ztezfqhmtc0438 [place] [id number]. Flaco Branden Creatinine [Mass/Vol] 1.59 mg/dL Critically high 0.70-1.30 [facility] Comment on above: Performed By: #### B MP ####[facility] Cjekunlcjh9782 [place] [id number]. Flaco Otero EGFR-AF SAMOAN 52 mL/min/1.73m2 Critically low >=60 [facility] Comment on above: Performed By: #### B MP ####[facility] Racsdkryby3685 [place] [address]Dr. Flaco Otero EGFR-NON AF SAMOAN 43 mL/min/1.73m2 Critically low >=60 [facility] Comment on above: Performed By: #### B MP ####[facility] Ktxkqocsaf615[address] [place], [place] [address]Dr. Flaco Otero Glucose [Mass/Vol] 119 mg/dL Critically high 74-106 [facility] Comment on above: Performed By: #### B MP ####[facility] Qsmuneoyuh4969[address] [place], [place] [address]Dr. Flaco Otero Potassium [Moles/Vol] 3.5 mmol/L Normal 3.5-5.1 [facility] Comment on above: Performed By: #### B MP ####[facility] Uoywnvfrqf2483 [place] [address]Dr. Flaco Otero Sodium [Moles/Vol] 139 mmol/L Normal 136-145 [facility] Comment on above: Performed By: #### B MP ####[facility] Bdpakwfzah413[address] [place], [place] [id number]. Flaco Otero Urea nitrogen [Mass/Vol] 12.0 mg/dL Normal 7.0-18.0 [facility] Comment on above: Performed By: #### B MP ####[facility] Achngiaegl[address] [place], [place] [id number]. Flaco Otero Urea nitrogen/Creatinine [Mass ratio] 7.5 mg/mg Normal [facility] Comment on above: Performed By: #### B MP ####[facility] Wignxhgtds4972 [place] [address]Dr. Flaco Branden CBC AUTO DIFFon 11-12-2022 BASO # 0.0 103/ul Normal 0.0-0.1 [facility] Comment on above: Performed By: #### C BC ####[facility] Qbxskwbmyy3197[address] [place], [place] [address]Dr. Purviedith Otero Basophils/100 WBC (Bld) 0.4 % Normal 0.2-2.0 [facility] Comment on above: Performed By: #### C BC ####[facility] Kbxzqbhmon9[address] [place], [place] [address]Dr. Flaco Branden EO # 0.1 103/ul Normal 0.0-0.7 [facility] Comment on above: Performed By: #### C BC ####[facility] Uvtrovoegb6429[address] [place], [place] [address]Dr. Purviedith Otero Eosinophils/100 WBC (Bld) 0.6 % Critically low 0.9-7.0 [facility] Comment on above: Performed By: #### C BC ####[facility] Zlsfunlbgh9738[address] [place], [place] [address]Dr. Flaco Branden Erythrocyte distribution width (RBC) [Ratio] 15.9 % Critically high 11.0-15.0 [facility] Comment on above: Performed By: #### C BC ####[facility] Yxviucsjht647[address] [place], [place] [address]Dr. Flaco Branden Hematocrit (Bld) [Volume fraction] 36.0 % Critically low 42.0-54.0 [facility] Comment on above: Performed By: #### C BC ####[facility] Hyqhoklrib[address] [place], [place] [address]Dr. Flaco Branden Hemoglobin (Bld) [Mass/Vol] 11.9 g/dL Critically low 14.0-18.0 [facility] Comment on above: Performed By: #### C BC ####[facility] Kviebmbciw72[address] [place], [place] [address]DrJeramie Lojaedith Branden IG # 0.03 10e3/ul Normal 0.00-0.03 [facility] Comment on above: Performed By: #### C BC ####[facility] Ycfrqzhylf0286 [place] [address]DrJeramie Otero IG % 0.3 % Normal 0.0-0.5 [facility] Comment on above: Performed By: #### C BC ####[facility] Fbflkxzxfi3869 [place] [address]DrJeramie Otero LYMPH # 1.9 103/ul Normal 1.2-3.8 [facility] Comment on above: Performed By: #### C BC ####[facility] Ykjbueljjq7448 [place] [address]DrJeramie Otero Lymphocytes/100 WBC (Bld) 19.3 % Critically low 20.5-60.0 [facility] Comment on above: Performed By: #### C BC ####[facility] Bhnculcxea1517 [place] [address]DrJeramie Otero MANUAL DIFF REQ NO Normal [facility] Comment on above: Performed By: #### C BC ####[facility] Uhmlasirvq9153 [place] [address]DrJeramie Otero MCH (RBC) [Entitic mass] 28.6 pg Normal 25.9-34.0 [facility] Comment on above: Performed By: #### C BC ####[facility] Ycyktxcuyp4132 [place] [address]DrJeramie Otero MCHC (RBC) [Mass/Vol] 33.1 g/dL Normal 29.9-35.2 [facility] Comment on above: Performed By: #### C BC ####[facility] Exqrrcylhh4314 [place] [address]DrJeramie Otero MCV (RBC) [Entitic vol] 86.5 fL Normal 80.0-94.0 [facility] Comment on above: Performed By: #### C BC ####[facility] Selitpfmsk2004 [place] [address]DrJeramie Otero MONO # 1.2 103/ul Critically high 0.3-0.8 [facility] Comment on above: Performed By: #### C BC ####[facility] Bdbeedgkiu7922 [place] [address]Dr. Flaco Otero Monocytes/100 WBC (Bld) 12.5 % Critically high 1.7-12.0 [facility] Comment on above: Performed By: #### C BC ####[facility] Ldpokarvla8936 [place] [address]Dr. Flaco Otero NEUT # 6.5 103/ul Normal 1.4-6.5 [facility] Comment on above: Performed By: #### C BC ####[facility] Zmlwtsuvda[address] [place], [place] [address]Dr. Flaco Otero Neutrophils/100 WBC (Bld) 66.9 % Normal 43.0-75.0 [facility] Comment on above: Performed By: #### C BC ####[facility] Wjhnerlohl26[address] [place], [place] [address]Dr. Flaco Otero Platelet mean volume (Bld) [Entitic vol] 9.6 fL Normal 9.5-13.5 [facility] Comment on above: Performed By: #### C BC ####[facility] Wuzpzhhxyn50[address] [place] [address]Dr. Flaco Otero PLT 345 103/ul Normal 150-450 [facility] Comment on above: Performed By: #### C BC ####[facility] Ecalrcjqjr4596 [place] [address]Dr. Flaco Otero RBC 4.16 106/ul Critically low 4.70-6.10 [facility] Comment on above: Performed By: #### C BC ####[facility] Chifwstujy9914 [place] [address]Dr. Flaco Otero WBC 9.7 103/ul Normal 4.0-11.0 [facility] Comment on above: Performed By: #### C BC ####[facility] Gpamedkffw48[address] [place], [place] [address]Dr. Flaco Branden ECHOCARDIO M/2D COMPLETEon 0 2-15-2023 ECHOCARDIO M/2D COMPLETE Normal [facility] MRA NECK WO CONon 11-12-2022 MRA NECK WO CON Normal [facility] MRI BRAIN WO CONon MRI BRAIN WO CON Normal [facility] PROF CHEM 8 (BAS METB)on Anion gap [Moles/Vol] 12.7 mmol/L Normal [facility] Comment on above: Performed By: #### B MP ####[facility] Linasuxfet9596 [place] [address]Dr. Flaco Otero Calcium [Mass/Vol] 8.8 mg/dL Normal 8.5-10.1 [facility] Comment on above: Performed By: #### B MP ####[facility] Xjwhcwqqmg4629 [place] [address]Dr. Flaco Otero Chloride [Moles/Vol] 102 mmol/L Normal 98-107 [facility] Comment on above: Performed By: #### B MP ####[facility] Luuutvocyr6830 [place] [address]Dr. Flaco Otero CO2 [Moles/Vol] 24.9 mmol/L Normal 21.0-32.0 [facility] Comment on above: Performed By: #### B MP ####[facility] Tnuwabmjjz0991 [place] [address]Dr. Flaco Otero Creatinine [Mass/Vol] 1.58 mg/dL Critically high 0.70-1.30 [facility] Comment on above: Performed By: #### B MP ####[facility] Kjfffkrcbc5937 [place] [address]Dr. Flaco Otero EGFR-AF SAMOAN 53 mL/min/1.73m2 Critically low >=60 [facility] Comment on above: Performed By: #### B MP ####[facility] Dschdfxntw9768 [place] [address]Dr. Flaco Otero EGFR-NON AF SAMOAN 43 mL/min/1.73m2 Critically low >=60 [facility] Comment on above: Performed By: #### B MP ####[facility] Nizfcsauro6485 [place] [id number]. Flaco Otero Glucose [Mass/Vol] 107 mg/dL Critically high 74-106 [facility] Comment on above: Performed By: #### B MP ####[facility] Reobctujal1511 [place] [address]Dr. Flaco Otero Potassium [Moles/Vol] 3.6 mmol/L Normal 3.5-5.1 [facility] Comment on above: Performed By: #### B MP ####[facility] Gtglompplr1567 [place] [address]Dr. Flaco Toero Sodium [Moles/Vol] 136 mmol/L Normal 136-145 [facility] Comment on above: Performed By: #### B MP ####[facility] Uqnfhrmumq7[address] [place], [place] [address]Dr. Flaco Branden Urea nitrogen [Mass/Vol] 10.0 mg/dL Normal 7.0-18.0 [facility] Comment on above: Performed By: #### B MP ####[facility] Nswsxrhuer[address] [place], [place] [address]Dr. Flaco Branden Urea nitrogen/Creatinine [Mass ratio] 6.3 mg/mg Normal [facility] Comment on above: Performed By: #### B MP ####[facility] Esjbfvrjda2975 [place] [address]Dr. Flaco Branden CBC AUTO DIFFon 11-11-2022 BASO # 0.0 103/ul Normal 0.0-0.1 [facility] Comment on above: Performed By: #### C BC ####[facility] Oxkvtpwjjn6807 [place] [address]Dr. Flaco Branden Basophils/100 WBC (Bld) 0.4 % Normal 0.2-2.0 [facility] Comment on above: Performed By: #### C BC ####[facility] [address] [place] [address]Dr. Flaco Otero EO # 0.1 103/ul Normal 0.0-0.7 [facility] Comment on above: Performed By: #### C BC ####[facility] [address] [place] [id number]. Flaco Otero Eosinophils/100 WBC (Bld) 0.7 % Critically low 0.9-7.0 [facility] Comment on above: Performed By: #### C BC ####[facility] Yapflyksmy[address] [place] [address]Dr. Flaco Otero Erythrocyte distribution width (RBC) [Ratio] 16.3 % Critically high 11.0-15.0 [facility] Comment on above: Performed By: #### C BC ####[facility] Audneuijjl[address] [place], [place] [address]Dr. Flaco Otero Hematocrit (Bld) [Volume fraction] 37.4 % Critically low 42.0-54.0 [facility] Comment on above: Performed By: #### C BC ####[facility] Oasioiht[address] [place], [place] [address]Dr. Flaco Otero Hemoglobin (Bld) [Mass/Vol] 12.5 g/dL Critically low 14.0-18.0 [facility] Comment on above: Performed By: #### C BC ####[facility] Ozntkz[address] [place], [place] [address]Dr. Flaco Otero IG # 0.03 10e3/ul Normal 0.00-0.03 [facility] Comment on above: Performed By: #### C BC ####[facility] Izhqkqsugk[address] [place], [place] [address]Dr. Flaco Otero IG % 0.3 % Normal 0.0-0.5 [facility] Comment on above: Performed By: #### C BC ####[facility] Fjyeaulywo[address] [place], [place] [address]Dr. Flaco Otero LYMPH # 2.0 103/ul Normal 1.2-3.8 [facility] Comment on above: Performed By: #### C BC ####[facility] Xnv[address]dezqi[address] [place], [place] [address]Dr. Flaco Otero Lymphocytes/100 WBC (Bld) 18.8 % Critically low 20.5-60.0 [facility] Comment on above: Performed By: #### C BC ####[facility] Ylfuxdjxls[address] [place] [address]Dr. Purviedith Otero MANUAL DIFF REQ NO Normal [facility] Comment on above: Performed By: #### C BC ####[facility] Dgimwvhfcq7[address] [place] [id number]. Purviedith Branden MCH (RBC) [Entitic mass] 29.1 pg Normal 25.9-34.0 [facility] Comment on above: Performed By: #### C BC ####[facility] Mbpgoufael[address] [place], [place] [address]Dr. Flaco Branden MCHC (RBC) [Mass/Vol] 33.4 g/dL Normal 29.9-35.2 [facility] Comment on above: Performed By: #### C BC ####[facility] Bzhktlmp[address] [place], [place] [address]Dr. Flaco Otero MCV (RBC) [Entitic vol] 87.2 fL Normal 80.0-94.0 [facility] Comment on above: Performed By: #### C BC ####[facility] Jhzezfujid[address] [place], [place] [address]Dr. Flaco Otero MONO # 1.2 103/ul Critically high 0.3-0.8 [facility] Comment on above: Performed By: #### C BC ####[facility] Mkmmkjvkug[address] [place], [place] [address]Dr. Flaco Otero Monocytes/100 WBC (Bld) 11.2 % Normal 1.7-12.0 [facility] Comment on above: Performed By: #### C BC ####[facility] [address]wtrzzcslv[address] [place] [address]Dr. Flaco Otero NEUT # 7.1 103/ul Critically high 1.4-6.5 [facility] Comment on above: Performed By: #### C BC ####[facility] Xmchyimf[address] [place], [place] [address]Dr. Flaco Otero Neutrophils/100 WBC (Bld) 68.6 % Normal 43.0-75.0 [facility] Comment on above: Performed By: #### C BC ####[facility] S[address]xj[address] [place], [place] [address]Hp. Flaco Otero Platelet mean volume (Bld) [Entitic vol] 9.5 fL Normal 9.5-13.5 [facility] Comment on above: Performed By: #### C BC ####[facility] Guoaonbfnm[address] [place], [place] [address]Al. Flaco Otero PLT 351 103/ul Normal 150-450 [facility] Comment on above: Performed By: #### C BC ####[facility] Qynrrztaks7318 [place], [place] [address]Vp. Flaco Otero RBC 4.29 106/ul Critically low 4.70-6.10 [facility] Comment on above: Performed By: #### C BC ####[facility] Rhbjjexshd3697 [place], [place] [address]Vg. Flaco Otero WBC 10.4 103/ul Normal 4.0-11.0 [facility] Comment on above: Performed By: #### C BC ####[facility] Gxklowzbzy44[address] [place], [place] [address]Op. Flaco Otero CT HEAD WO CONon 11-11-2022 CT HEAD WO CON Normal [facility] 10-29 SARS-CoV-2 (COVID-19) RNA MARCO ANTONIO+probe Ql (Unsp spec) Not detected Normal NOT DETECTED [facility] Comment on above: Result Comment: When diagnostic [...] for this test is supported by the [employer] of Health and Human Service's declaration that [...] be used). Performed By: #### C VDTBH ####[facility] Fsbwpoublu6093 [place], [place] [address]Nh. Flaco Otero LIPID PROFILEon 11-11-2022 CHOL-HDL RATIO NORM SEE BELOW Normal [facility] Comment on above: Result Comment: 3.3 - 4.4 LOW RISK 4.4 - 7.1 AVERAGE RISK 7.1 - 11.0 MODERATE RISK >11.0 HIGH RISK Performed By: #### L IPID, TSH ####[facility] [address] [place] [id number]. Flaco Otero Cholesterol [Mass/Vol] 176 mg/dL Normal <=200 [facility] Comment on above: Performed By: #### L IPID, TSH ####[facility] K[address]dlzhe[address] [place] [phone]. Flaco Otero Cholesterol in HDL [Mass/Vol] 40 mg/dL Normal 40-60 [facility] Comment on above: Performed By: #### L IPID, TSH ####[facility] Zsefkvqone54[address] [place] [phone]. Flaco Otero Cholesterol in LDL [Mass/Vol] 117.6 mg/dL Normal [facility] Comment on above: Performed By: #### L IPID, TSH ####[facility] Yhmjpgeuze[address] [place] [id number]. Flaco Otero Cholesterol.total/Chol esterol in HDL [Mass ratio] 4.4 {ratio} Normal [facility] Comment on above: Performed By: #### L IPID, TSH ####[facility] Nfonz[address]we[address] [place] [phone]. Flaco Otero HDL NORMAL > or = 60 mg/dl - LO W CARDIOVASCULAR RISK <40 mg/dl - HIGH CARDIOVASCULAR RISK Normal [facility] Comment on above: Performed By: #### L IPID, TSH ####[facility] Fkjfxvzqit25[address] [place] [id number]. Flaco Otero LDL CALC NORMAL SEE BELOW Normal [facility] Comment on above: Result Comment: <100 mg/dl OPTIMAL 100 - 129 mg/dl NEAR OR ABOVE OPTIMAL 130 - 159 mg/dl BORDERLINE HIGH 160 - 189 mg/dl HIGH >190 mg/dl VERY HIGH Performed By: #### L IPID, TSH ####[facility] [address]utq[address] [place] [phone]. Flaco Otero Triglyceride [Mass/Vol] 92 mg/dL Normal <=150 [facility] Comment on above: Performed By: #### L IPID, TSH ####[facility] [address]afos[address] [place] [address]Dr. Flaco Otero VLDL CALC 18.4 mg/dL Normal [facility] Comment on above: Performed By: #### L IPID, TSH ####[facility] Wh[address]uigphx5[address] [place] [address]Dr. Flaco Otero PROF CHEM 8 (BAS METB)on Anion gap [Moles/Vol] 13.0 mmol/L Normal [facility] Comment on above: Performed By: #### B YEHUDA, HSTROPN ####[facility] Y[address] [place] [address]Dr. Flaco Otero Calcium [Mass/Vol] 9.3 mg/dL Normal 8.5-10.1 [facility] Comment on above: Performed By: #### B YEHUDA, HSTROPN ####[facility] Pjfklcog[address] [place] [address]Dr. Flaco Otero Chloride [Moles/Vol] 101 mmol/L Normal 98-107 [facility] Comment on above: Performed By: #### B YEHUDA, HSTROPN ####[facility] L[address]otfdjzk4[address] [place] [address]Dr. Flaco Otero CO2 [Moles/Vol] 27.7 mmol/L Normal 21.0-32.0 [facility] Comment on above: Performed By: #### B MP, HSTROPN ####[facility] M[address]ub[address]lp[address]26[address] [place] [address]Dr. Flaco Otero Creatinine [Mass/Vol] 1.75 mg/dL Critically high 0.70-1.30 [facility] Comment on above: Performed By: #### B YEHUDA, HSTROPN ####[facility] Gh[address]wu6[address] [place] [address]Dr. Flaco Otero EGFR-AF SAMOAN 47 mL/min/1.73m2 Critically low >=60 [facility] Comment on above: Performed By: #### B YEHUDA, HSTROPN ####[facility] Daves[address]nyj[address] [place] [address]Dr. Flaco Otero EGFR-NON AF SAMOAN 39 mL/min/1.73m2 Critically low >=60 [facility] Comment on above: Performed By: #### B YEHUDA, HSTROPN ####[facility] Uk[address]ueqbt[address] [place] [address]Dr. Flaco Otero Glucose [Mass/Vol] 97 mg/dL Normal 74-106 [facility] Comment on above: Performed By: #### B YEHUDA, HSTROPN ####[facility] Dcsyqnuvns4[address] [place] [address]Dr. Purviedith Otero Potassium [Moles/Vol] 3.7 mmol/L Normal 3.5-5.1 [facility] Comment on above: Performed By: #### Robyn BLACKMAN, HSTROPN ####[facility] Qvruiohhwi5490 [place] [address]Dr. Flaco Otero Sodium [Moles/Vol] 138 mmol/L Normal 136-145 [facility] Comment on above: Performed By: #### B YEHUDA, HSTROPN ####[facility] Erkzasxsnu[address] [place] [address]Dr. Flaco Otero Urea nitrogen [Mass/Vol] 13.0 mg/dL Normal 7.0-18.0 [facility] Comment on above: Performed By: #### B YEHUDA, HSTROPN ####[facility] Vecqyqegqj30[address] [place] [address]Dr. Flaco Otero Urea nitrogen/Creatinine [Mass ratio] 7.4 mg/mg Normal [facility] Comment on above: Performed By: #### B MP, HSTROPN ####[facility] Mms[address]naheq93[address] [place] [address]Dr. Flaco Otero PROTIMEon 11-11-2022 INR Coag (PPP) [Relative time] 1.05 {INR} Normal [facility] Comment on above: Performed By: #### P T, PTT ####[facility] U[address]fhkug[address] [place] [address]Dr. Flaco Otero INR GUIDELINES SEE BELOW Normal [facility] Comment on above: Result Comment: RON RED INR: 2.0 - 3.0 CONDITIONS NOT LISTED BELOW 2.5 - 3.5 FOR PROSTHETIC HEART VALVE REPLACEMENT 2.5 - 3.5 RECURRENT THROMBOSIS Performed By: #### P T, PTT ####[facility] Ifvljvfqef0934 [place] [address]Dr. Flaco Otero PT Coag (PPP) [Time] 11.1 s Normal 9.0-11.6 [facility] Comment on above: Performed By: #### P T, PTT ####[facility] Adlqcigywu57[address] [place] [address]Dr. Flaco Otero PTTon 11-11-2022 aPTT Coag (Bld) [Time] 34.3 s Normal 22.3-36.2 [facility] Comment on above: Performed By: #### P T, PTT ####[facility] Ztagtctqeu[address] [place] [address]Dr. Flaco Otero TROPONIN, HIGH SENSITIVITYon 11-11-2022 HSTROP 4.7 pg/mL Normal 4.0-76.1 [facility] Comment on above: Result Comment: CUT- OFF POINTS HAVE BEEN ESTABLISHED BASED ON THE FOURTH UNIVERSAL DEFINITIONS OF MYOCARDIALINFARCTION. THE UPPER REFERENCE LIMIT (URL) OF TROPONIN, DEFINED THE 99TH PERCENTILE OFcTnI DISTRIBUTION IN A REFERENCE POPULATION, HAS BEEN CONFIRMED THE DECISION THRESHOLDFOR HI DIAGNOSIS. Performed By: #### B MP, HSTROPN ####[facility] Ynenpjsmbu[address] [place] [address]Dr. Flaco Otero TSHon 11-11-2022 TSH 0.829 uIU/mL Normal 0.358-3.740 [facility] Comment on above: Performed By: #### L IPID, TSH ####[facility] Sfezzltifn[address] [place] [id number]. Flaco Otero XR CHEST 1 Von 11-11-2022 XR CHEST 1 V Normal [facility] XR FOOT RT MIN 3 VIEWSon XR FOOT RT MIN 3 VIEWS Normal [facility] XR FOOT RT MIN 3 VIEWSon XR FOOT RT MIN 3 VIEWS Normal [facility] POINT OF CARE GLUCOSEon 08-29 Glucose [Mass/Vol] 87 mg/dL Normal 74-106 [facility] Comment on above: Performed By: #### P OCGLUC ####[facility] Pnamnyszzq07[address] [place] [id number]. Flaco Otero Glucose [Mass/Vol] 94 mg/dL Normal 74-106 [facility] Comment on above: Performed By: #### P OCGLUC ####[facility] Bcafesntbx80[address] [place] [phone]. Flaco Otero XR FOOT RT 2Von 09-25-2022 XR FOOT RT 2V Normal [facility] XR FOOT RT MIN 3 VIEWSon XR FOOT RT MIN 3 VIEWS Normal [facility] XR WRIST RT MIN 3 Von 2021 XR WRIST RT MIN 3 V Normal [facility] ([facility]on 08-29 SARS-CoV-2 (COVID-19) RNA MARCO ANTONIO+probe Ql (Unsp spec) Not detected Normal NOT DETECTED [facility] Comment on above: Result Comment: This test is not yet approved or cleared by the [place] FDA. When there are no FDA-approved or cleared tests available, and other criteria are met, FDA can make tests available under an emergency access mechanism called an Emergency Use Authorization (EUA). The EUA for this test is supported by the [employer] of Health and Human Service's (HHS's) declaration [...] with SARS-CoV-2. Performed By: #### C VDTB ####[facility] Jbkildaooz9553 [place] [address]Dr. Flaco Otero PROF CHEM 8 (BAS METB)on Anion gap [Moles/Vol] 10.4 mmol/L Normal [facility] Comment on above: Performed By: #### B MP ####[facility] [address]rnb[address] [place], [place] [address]Dr. Flaco Otero Calcium [Mass/Vol] 8.7 mg/dL Normal 8.5-10.1 [facility] Comment on above: Performed By: #### B MP ####[facility] Amqphoefbu[address] [place], [place] [address]Dr. Flaco Otero Chloride [Moles/Vol] 104 mmol/L Normal 98-107 [facility] Comment on above: Performed By: #### B MP ####[facility] Dphknheilk[address] [place], [place] [address]Dr. Flaco Otero CO2 [Moles/Vol] 27.2 mmol/L Normal 21.0-32.0 [facility] Comment on above: Performed By: #### B MP ####[facility] Ijmupamizt[address] [place], [place] [address]Dr. Flaco Otero Creatinine [Mass/Vol] 2.02 mg/dL Critically high 0.70-1.30 [facility] Comment on above: Performed By: #### B MP ####[facility] Mwkgeseibs[address] [place], [place] [address]Dr. Flaco Otero EGFR-AF SAMOAN 40 mL/min/1.73m2 Critically low >=60 [facility] Comment on above: Performed By: #### B MP ####[facility] Aufuamzpgo7326 [place] [id number]. Flaco Otero EGFR-NON AF SAMOAN 33 mL/min/1.73m2 Critically low >=60 [facility] Comment on above: Performed By: #### B MP ####[facility] Dcvlbnnhtv2804 [place] [id number]. Flaco Otero Glucose [Mass/Vol] 91 mg/dL Normal 74-106 [facility] Comment on above: Performed By: #### B MP ####[facility] Hfndkkwwhg9608 [place] [phone]. Flaco Otero Potassium [Moles/Vol] 3.6 mmol/L Normal 3.5-5.1 [facility] Comment on above: Performed By: #### B MP ####[facility] Rebpvpysvp1333 [place] [address]Dr. Flaco Otero Sodium [Moles/Vol] 138 mmol/L Normal 136-145 [facility] Comment on above: Performed By: #### B MP ####[facility] Hwkulqoare29[address] [place] [address]Dr. Flaco Branden Urea nitrogen [Mass/Vol] 14.0 mg/dL Normal 7.0-18.0 [facility] Comment on above: Performed By: #### B MP ####[facility] Bahafqtuzw9[address] [place] [address]Dr. Flaco Otero Urea nitrogen/Creatinine [Mass ratio] 6.9 mg/mg Normal [facility] Comment on above: Performed By: #### B MP ####[facility] Txtaisus[address] [place], [place] [id number]. Flaco Branden CBC AUTO DIFFon 08-15-2022 BASO # 0.1 103/ul Normal 0.0-0.1 [facility] Comment on above: Performed By: #### C BC ####[facility] Nou[address]me[address] [place] [id number]. Purviedith Otero Basophils/100 WBC (Bld) 0.8 % Normal 0.2-2.0 [facility] Comment on above: Performed By: #### C BC ####[facility] Paiwwswxwp6387 [place] [id number]. Flaco Otero EO # 0.1 103/ul Normal 0.0-0.7 [facility] Comment on above: Performed By: #### C BC ####[facility] Paaxlbpajv[address] [place], [place] [address]Dr. Flaco Otero Eosinophils/100 WBC (Bld) 1.4 % Normal 0.9-7.0 [facility] Comment on above: Performed By: #### C BC ####[facility] Xinoyshvbz[address] [place], [place] [address]Dr. Flaco Otero Erythrocyte distribution width (RBC) [Ratio] 13.6 % Normal 11.0-15.0 [facility] Comment on above: Performed By: #### C BC ####[facility] Qefaghpccb[address] [place], [place] [address]Dr. Flaco Otero Hematocrit (Bld) [Volume fraction] 46.2 % Normal 42.0-54.0 [facility] Comment on above: Performed By: #### C BC ####[facility] Bcladskppt24[address] [place], [place] [address]Dr. Flaco Otero Hemoglobin (Bld) [Mass/Vol] 15.2 g/dL Normal 14.0-18.0 [facility] Comment on above: Performed By: #### C BC ####[facility] Talnrbcqsn[address] [place], [place] [address]Dr. Flaco Otero IG # 0.02 10e3/ul Normal 0.00-0.03 [facility] Comment on above: Performed By: #### C BC ####[facility] Nbyrwwqmyc[address] [place], [place] [address]Dr. Flaco Otero IG % 0.2 % Normal 0.0-0.5 [facility] Comment on above: Performed By: #### C BC ####[facility] Hgfjsachpj[address] [place], [place] [address]Dr. Flaco Otero LYMPH # 1.8 103/ul Normal 1.2-3.8 [facility] Comment on above: Performed By: #### C BC ####[facility] Xocnxegwgu9618 [place] [id number]. Flaco Otero Lymphocytes/100 WBC (Bld) 19.2 % Critically low 20.5-60.0 [facility] Comment on above: Performed By: #### C BC ####[facility] Afrrrfvnqm7898 [place] [id number]. Purviedith Otero MANUAL DIFF REQ NO Normal [facility] Comment on above: Performed By: #### C BC ####[facility] Znwyadbdio2399 [place] [id number]. Flaco Branden MCH (RBC) [Entitic mass] 28.6 pg Normal 25.9-34.0 [facility] Comment on above: Performed By: #### C BC ####[facility] Mvglpojjal[address] [place], [place] [address]Dr. Flaco Branden MCHC (RBC) [Mass/Vol] 32.9 g/dL Normal 29.9-35.2 [facility] Comment on above: Performed By: #### C BC ####[facility] Hxgcrxlegs[address] [place], [place] [id number]. Flaco Branden MCV (RBC) [Entitic vol] 86.8 fL Normal 80.0-94.0 [facility] Comment on above: Performed By: #### C BC ####[facility] Ujudmqnzdv18[address] [place], [place] [address]Dr. Flaco Branden MONO # 0.8 103/ul Normal 0.3-0.8 [facility] Comment on above: Performed By: #### C BC ####[facility] Qywdydcdyl[address] [place], [place] [id number]. Flaco Branden Monocytes/100 WBC (Bld) 8.7 % Normal 1.7-12.0 [facility] Comment on above: Performed By: #### C BC ####[facility] Viyhizlbmg[address] [place], [place] [id number]. Flaco Otero NEUT # 6.5 103/ul Normal 1.4-6.5 [facility] Comment on above: Performed By: #### C BC ####[facility] Ygsmxqbpme1501 [place] [id number]. Flaco Otero Neutrophils/100 WBC (Bld) 69.7 % Normal 43.0-75.0 [facility] Comment on above: Performed By: #### C BC ####[facility] Acwvojljlu8[address] [place] [id number]. Flaco Otero Platelet mean volume (Bld) [Entitic vol] 9.8 fL Normal 9.5-13.5 [facility] Comment on above: Performed By: #### C BC ####[facility] Qaoykfqimc3013 [place] [id number]. Flaco Otero PLT 503 103/ul Critically high 150-450 [facility] Comment on above: Performed By: #### C BC ####[facility] Jpvalazsoq[address] [place], [place] [address]Dr. Flaco Otero RBC 5.32 106/ul Normal 4.70-6.10 [facility] Comment on above: Performed By: #### C BC ####[facility] Rtwzbqnese[address] [place], [place] [id number]. Flaco Otero WBC 9.3 103/ul Normal 4.0-11.0 [facility] Comment on above: Performed By: #### C BC ####[facility] Ivaiqyvbpf[address] [place], [place] [address]Dr. Flaco Otero PROTIMEon 08-15-2022 INR Coag (PPP) [Relative time] 1.73 {INR} Normal [facility] Comment on above: Performed By: #### P TT, PT ####[facility] Yuab[address]ybmc[address] [place], [place] [id number]. Flaco Otero INR GUIDELINES SEE BELOW Normal [facility] Comment on above: Result Comment: RON RED INR: 2.0 - 3.0 CONDITIONS NOT LISTED BELOW 2.5 - 3.5 FOR PROSTHETIC HEART VALVE REPLACEMENT 2.5 - 3.5 RECURRENT THROMBOSIS Performed By: #### P TT, PT ####[facility] Subqofesmp[address] [place], [place] [address]Dr. Flaco Otero PT Coag (PPP) [Time] 18.0 s Critically high 9.0-11.6 [facility] Comment on above: Performed By: #### P TT, PT ####[facility] Pxmfvihuzh[address] [place], [place] [address]Dr. Flaco Otero PTTon 08-15-2022 aPTT Coag (Bld) [Time] 34.8 s Normal 22.3-36.2 [facility] Comment on above: Performed By: #### P TT, PT ####[facility] Foflyejmgh[address] [place], [place] [address]Dr. Flaco Otero CBC AUTO DIFFon 08-02-2022 BASO # 0.0 103/ul Normal 0.0-0.1 [facility] Comment on above: Performed By: #### C BC ####[facility] Lwgamkfrsj[address] [place], [place] [address]Dr. Purviedith Otero Basophils/100 WBC (Bld) 0.2 % Normal 0.2-2.0 [facility] Comment on above: Performed By: #### C BC ####[facility] Tauaztvhjw[address] [place], [place] [address]Dr. Flaco Otero EO # 0.1 103/ul Normal 0.0-0.7 [facility] Comment on above: Performed By: #### C BC ####[facility] Yvtzl[address]zppm[address] [place], [place] [address]Dr. Flaco Otero Eosinophils/100 WBC (Bld) 1.2 % Normal 0.9-7.0 [facility] Comment on above: Performed By: #### C BC ####[facility] Owdalsgrdc[address] [place], [place] [address]Dr. Flaco Otero Erythrocyte distribution width (RBC) [Ratio] 13.2 % Normal 11.0-15.0 [facility] Comment on above: Performed By: #### C BC ####[facility] [facility] Ghpctqpmyh[address] [place], [place] [address]Dr. Flaco Otero Hematocrit (Bld) [Volume fraction] 42.6 % Normal 42.0-54.0 [facility] Comment on above: Performed By: #### C BC ####[facility] Urvohdvpiy88[address] [place] [id number]. Flaco Otero Hemoglobin (Bld) [Mass/Vol] 14.0 g/dL Normal 14.0-18.0 [facility] Comment on above: Performed By: #### C BC ####[facility] Avknowosuh0869 [place] [id number]. Flaco Otero IG # 0.05 10e3/ul Critically high 0.00-0.03 [facility] Comment on above: Performed By: #### C BC ####[facility] Fmikipehgy5972 [place] [address]Dr. Flaco Otero IG % 0.5 % Normal 0.0-0.5 [facility] Comment on above: Performed By: #### C BC ####[facility] Eshzmaewdv3[address] [place] [address]Dr. Flaco Otero LYMPH # 1.5 103/ul Normal 1.2-3.8 [facility] Comment on above: Performed By: #### C BC ####[facility] Mkxokwclkm9254 [place] [id number]. Flaco Otero Lymphocytes/100 WBC (Bld) 13.5 % Critically low 20.5-60.0 [facility] Comment on above: Performed By: #### C BC ####[facility] Nijkadkffv7336 [place] [id number]. Flaco Otero MANUAL DIFF REQ NO Normal [facility] Comment on above: Performed By: #### C BC ####[facility] Acxhaowhhz9892 [place] [id number]. Flaco Otero MCH (RBC) [Entitic mass] 29.0 pg Normal 25.9-34.0 [facility] Comment on above: Performed By: #### C BC ####[facility] Xytvgimskb3447 [place] [phone]. Flaco Otero MCHC (RBC) [Mass/Vol] 32.9 g/dL Normal 29.9-35.2 [facility] Comment on above: Performed By: #### C BC ####[facility] Poqtteyulp7387 [place] [phone]. Flaco Otero MCV (RBC) [Entitic vol] 88.2 fL Normal 80.0-94.0 [facility] Comment on above: Performed By: #### C BC ####[facility] Xgpeyafgus3543 [place] [phone]. Flaco Otero MONO # 1.0 103/ul Critically high 0.3-0.8 [facility] Comment on above: Performed By: #### C BC ####[facility] Yyzeyqjmmo4645 [place] [id number]. Flaco Otero Monocytes/100 WBC (Bld) 8.8 % Normal 1.7-12.0 [facility] Comment on above: Performed By: #### C BC ####[facility] Fckzodajtp[address] [place], [place] [id number]. Flaco Otero NEUT # 8.4 103/ul Critically high 1.4-6.5 [facility] Comment on above: Performed By: #### C BC ####[facility] Xqxkjzwrmz39[address] [place], [place] [id number]. Flaco Otero Neutrophils/100 WBC (Bld) 75.8 % Critically high 43.0-75.0 [facility] Comment on above: Performed By: #### C BC ####[facility] Ztzeqnabfb[address] [place], [place] [id number]. Flaco Otero Platelet mean volume (Bld) [Entitic vol] 10.2 fL Normal 9.5-13.5 [facility] Comment on above: Performed By: #### C BC ####[facility] Xngfaouyhl9396 [place] [id number]. Flaco Otero PLT 329 103/ul Normal 150-450 [facility] Comment on above: Performed By: #### C BC ####[facility] Xjrxzgympp[address] [place], [place] [id number]. Flaco Otero RBC 4.83 106/ul Normal 4.70-6.10 [facility] Comment on above: Performed By: #### C BC ####[facility] Peoxhjfcmg9645 [place] [address]Dr. Flaco Otero WBC 11.0 103/ul Normal 4.0-11.0 [facility] Comment on above: Performed By: #### C BC ####[facility] Kmukeeomqx1877 [place] [address]Dr. Flaco Otero PROF 14(COMP METB)on 022 Albumin [Mass/Vol] 2.6 g/dL Critically low 3.4-5.0 [facility] Comment on above: Performed By: #### C MP ####[facility] Wwttdaqkoz12[address] [place], [place] [address]Dr. Flaco Otero Albumin/Globulin [Mass ratio] 0.6 {ratio} Normal [facility] Comment on above: Performed By: #### C MP ####[facility] Whvlkzfrfd44[address] [place], [place] [address]Dr. Flaco Otero ALP [Catalytic activity/Vol] 58 U/L Normal 46-116 [facility] Comment on above: Performed By: #### C MP ####[facility] Nomcthirbj[address] [place], [place] [address]Dr. Flaco Oteor ALT [Catalytic activity/Vol] 23 U/L Normal 16-63 [facility] Comment on above: Performed By: #### C MP ####[facility] Bhbqeulytb28[address] [place], [place] [address]Dr. Flaco Otero Anion gap [Moles/Vol] 14.9 mmol/L Normal [facility] Comment on above: Performed By: #### C MP ####[facility] Ajaxrueopc69[address] [place], [place] [address]Dr. Flaco Otero AST [Catalytic activity/Vol] 23 U/L Normal 15-37 [facility] Comment on above: Performed By: #### C MP ####[facility] Svknahidsb54[address] [place], [place] [address]Dr. Flaco Otero Bilirubin [Mass/Vol] 0.6 mg/dL Normal 0.2-1.0 [facility] Comment on above: Performed By: #### C MP ####[facility] Ixtrtjvrvr5490 [place] [address]Dr. Flaco Otero Calcium [Mass/Vol] 8.8 mg/dL Normal 8.5-10.1 [facility] Comment on above: Performed By: #### C MP ####[facility] Pdipphooms[address] [place], [place] [address]Dr. Flaco Otero Chloride [Moles/Vol] 104 mmol/L Normal 98-107 [facility] Comment on above: Performed By: #### C MP ####[facility] Tecyqbbgph7[address] [place], [place] [address]Dr. Flaco Otero CO2 [Moles/Vol] 21.3 mmol/L Normal 21.0-32.0 [facility] Comment on above: Performed By: #### C MP ####[facility] Nvqwziqjcj[address] [place], [place] [address]Dr. Flaco Otero Creatinine [Mass/Vol] 2.08 mg/dL Critically high 0.70-1.30 [facility] Comment on above: Performed By: #### C MP ####[facility] Jtrmokyumk[address] [place], [place] [address]Dr. Flaco Otero EGFR-AF SAMOAN 38 mL/min/1.73m2 Critically low >=60 [facility] Comment on above: Performed By: #### C MP ####[facility] Rlbwxoyenm4[address] [place], [place] [address]Dr. Flaco Otero EGFR-NON AF SAMOAN 32 mL/min/1.73m2 Critically low >=60 [facility] Comment on above: Performed By: #### C MP ####[facility] Mqpnhikund6450[address] [place], [place] [address]Dr. Flaco Otero Globulin (S) [Mass/Vol] 4.1 g/dL Normal [facility] Comment on above: Performed By: #### C MP ####[facility] Jubpfwoodk[address] [place], [place] [address]Dr. Flaco Otero Glucose [Mass/Vol] 87 mg/dL Normal 74-106 [facility] Comment on above: Performed By: #### C MP ####[facility] Blouiposwv4[address] [place], [place] [address]Dr. Purviedith Otero Potassium [Moles/Vol] 4.2 mmol/L Normal 3.5-5.1 [facility] Comment on above: Performed By: #### C MP ####[facility] Juzqcbvoxl47[address] [place], [place] [address]Dr. Purviedith Otero Protein [Mass/Vol] 6.7 g/dL Normal 6.4-8.2 [facility] Comment on above: Performed By: #### C MP ####[facility] Hibzcgbplc[address] [place], [place] [address]Dr. Flaco Otero Sodium [Moles/Vol] 136 mmol/L Normal 136-145 [facility] Comment on above: Performed By: #### C MP ####[facility] Vhqcschkiu26[address] [place], [place] [address]Dr. Flaco Otero Urea nitrogen [Mass/Vol] 32.0 mg/dL Critically high 7.0-18.0 [facility] Comment on above: Performed By: #### C MP ####[facility] Wsocqkouvm[address] [place], [place] [address]Dr. Flaco Otero Urea nitrogen/Creatinine [Mass ratio] 15.4 mg/mg Normal [facility] Comment on above: Performed By: #### C MP ####[facility] Vhcvlhyiwb[address] [place], [place] [address]Dr. Flaco Otero CBC AUTO DIFFon 08-01-2022 BASO # 0.0 103/ul Normal 0.0-0.1 [facility] Comment on above: Performed By: #### C BC ####[facility] Wjyozcnptk[address] [place], [place] [address]Dr. Flaco Otero Basophils/100 WBC (Bld) 0.1 % Critically low 0.2-2.0 [facility] Comment on above: Performed By: #### C BC ####[facility] Ptutasyxqi4175[address] [place], [place] [address]Dr. Flaco Otero EO # 0.0 103/ul Normal 0.0-0.7 [facility] Comment on above: Performed By: #### C BC ####[facility] Nbxyfhmgfj0890 [place] [id number]. Flaco Otero Eosinophils/100 WBC (Bld) 0.3 % Critically low 0.9-7.0 [facility] Comment on above: Performed By: #### C BC ####[facility] Vjgnlkcvew6208 [place] [phone]. Flaco Otero Erythrocyte distribution width (RBC) [Ratio] 13.5 % Normal 11.0-15.0 [facility] Comment on above: Performed By: #### C BC ####[facility] Rohofjfrvg[address] [place], [place] [address]Dr. Flaco Otero Hematocrit (Bld) [Volume fraction] 42.0 % Normal 42.0-54.0 [facility] Comment on above: Performed By: #### C BC ####[facility] Wbskbjvacn[address] [place], [place] [address]Dr. Flaco Otero Hemoglobin (Bld) [Mass/Vol] 13.6 g/dL Critically low 14.0-18.0 [facility] Comment on above: Performed By: #### C BC ####[facility] Drhmvzqbnl66[address] [place], [place] [address]Dr. Flaco Otero IG # 0.04 10e3/ul Critically high 0.00-0.03 [facility] Comment on above: Performed By: #### C BC ####[facility] Gizlopfvxu8898 [place] [address]Dr. Flaco Otero IG % 0.4 % Normal 0.0-0.5 [facility] Comment on above: Performed By: #### C BC ####[facility] Qcfcdidlpf[address] [place], [place] [address]DrJeramie Flaco Otero LYMPH # 1.0 103/ul Critically low 1.2-3.8 [facility] Comment on above: Performed By: #### C BC ####[facility] Aqgfcnjezj6276 [place] [id number]. Flaco Otero Lymphocytes/100 WBC (Bld) 9.3 % Critically low 20.5-60.0 [facility] Comment on above: Performed By: #### C BC ####[facility] Cuxprbybva1346 [place] [address]Dr. Flaco Otero MANUAL DIFF REQ NO Normal [facility] Comment on above: Performed By: #### C BC ####[facility] Fdykzhxbqs4268 [place] [id number]. Flaco Otero MCH (RBC) [Entitic mass] 28.7 pg Normal 25.9-34.0 [facility] Comment on above: Performed By: #### C BC ####[facility] Qlhjgorbmo8672 [place] [address]Dr. Flaco Otero MCHC (RBC) [Mass/Vol] 32.4 g/dL Normal 29.9-35.2 [facility] Comment on above: Performed By: #### C BC ####[facility] Uorukhwxfn[address] [place], [place] [address]Dr. Flaco Otero MCV (RBC) [Entitic vol] 88.6 fL Normal 80.0-94.0 [facility] Comment on above: Performed By: #### C BC ####[facility] Mkabswpesh4[address] [place], [place] [address]DrJeramie Otero MONO # 1.2 103/ul Critically high 0.3-0.8 [facility] Comment on above: Performed By: #### C BC ####[facility] Cnpederlbz[address] [place], [place] [address]Dr. Flaco Otero Monocytes/100 WBC (Bld) 11.0 % Normal 1.7-12.0 [facility] Comment on above: Performed By: #### C BC ####[facility] Zivrjtrhoj[address] [place], [place] [address]DrJeramie Otero NEUT # 8.4 103/ul Critically high 1.4-6.5 [facility] Comment on above: Performed By: #### C BC ####[facility] Npuypbnwik[address] [place], [place] [id number] Otero Neutrophils/100 WBC (Bld) 78.9 % Critically high 43.0-75.0 [facility] Comment on above: Performed By: #### C BC ####[facility] Gakpjydmkj9822 [place] [address]Dr. Flaco Otero Platelet mean volume (Bld) [Entitic vol] 10.0 fL Normal 9.5-13.5 [facility] Comment on above: Performed By: #### C BC ####[facility] Teyfeoqmxk1879 [place] [address]Dr. Flaco Otero PLT 308 103/ul Normal 150-450 [facility] Comment on above: Performed By: #### C BC ####[facility] Etbodxboig9716 [place] [address]Dr. Flaco Otero RBC 4.74 106/ul Normal 4.70-6.10 [facility] Comment on above: Performed By: #### C BC ####[facility] Syodscchkk[address] [place], [place] [address]Dr. Flaco Otero WBC 10.7 103/ul Normal 4.0-11.0 [facility] Comment on above: Performed By: #### C BC ####[facility] Ibpnckfmsp4520 [place] [address]DrJeramie Otero PROF 14(COMP METB)on 022 Albumin [Mass/Vol] 2.6 g/dL Critically low 3.4-5.0 [facility] Comment on above: Performed By: #### C MP ####[facility] Gyeqzsdcos[address] [place], [place] [address]DrJeramie Otero Albumin/Globulin [Mass ratio] 0.6 {ratio} Normal [facility] Comment on above: Performed By: #### C MP ####[facility] Gbvbqoveul5025 [place] [address]DrJeramie Otero ALP [Catalytic activity/Vol] 58 U/L Normal 46-116 [facility] Comment on above: Performed By: #### C MP ####[facility] Bstmfrmgaq7283 [place] [address]DrJeramie Otero ALT [Catalytic activity/Vol] 24 U/L Normal 16-63 [facility] Comment on above: Performed By: #### C MP ####[facility] Gobraksghb5675 [place] [id number]. Flaco Otero Anion gap [Moles/Vol] 14.8 mmol/L Normal Th e [facility] Comment on above: Performed By: #### C MP ####[facility] Qqtjotzjku0721 [place], [place] [address]Dz. Flaco Otero AST [Catalytic activity/Vol] 33 U/L Normal 15-37 [facility] Comment on above: Performed By: #### C MP ####[facility] Stsawxqmtb9335 [place] [id number]. Flaco Branden Bilirubin [Mass/Vol] 1.0 mg/dL Normal 0.2-1.0 [facility] Comment on above: Performed By: #### C MP ####[facility] Minhlykazd4004 [place] [id number]. Flaco Branden Calcium [Mass/Vol] 8.7 mg/dL Normal 8.5-10.1 [facility] Comment on above: Performed By: #### C MP ####[facility] Qjuzubjmnk1357 [place] [id number]. Flaco Branden Chloride [Moles/Vol] 104 mmol/L Normal 98-107 [facility] Comment on above: Performed By: #### C MP ####[facility] Ioxriqhmyw8556 [place] [phone]. Flaco Branden CO2 [Moles/Vol] 21.2 mmol/L Normal 21.0-32.0 [facility] Comment on above: Performed By: #### C MP ####[facility] Hzmrjfsksi5911 [place] [id number]. Flaco Branden Creatinine [Mass/Vol] 1.90 mg/dL Critically high 0.70-1.30 [facility] Comment on above: Performed By: #### C MP ####[facility] Ygydwuaqpb2804 [place] [id number]. Flaco Branden EGFR-AF SAMOAN 43 mL/min/1.73m2 Critically low >=60 [facility] Comment on above: Performed By: #### C MP ####[facility] Abjokqazvr0520 [place] [id number]. Flaco Otero EGFR-NON AF SAMOAN 35 mL/min/1.73m2 Critically low >=60 [facility] Comment on above: Performed By: #### C MP ####[facility] Lxlrpiybux7436 [place] [id number]. Flaco Otero Globulin (S) [Mass/Vol] 4.0 g/dL Normal [facility] Comment on above: Performed By: #### C MP ####[facility] Lnndachrnw9933 [place] [id number]. Flaco Otero Glucose [Mass/Vol] 82 mg/dL Normal 74-106 [facility] Comment on above: Performed By: #### C MP ####[facility] Ehhcclbcku4394 [place] [phone]. Flaco Otero Potassium [Moles/Vol] 4.0 mmol/L Normal 3.5-5.1 [facility] Comment on above: Performed By: #### C MP ####[facility] Hkpljmzfgd2274 [place] [phone]. Flaco Otero Protein [Mass/Vol] 6.6 g/dL Normal 6.4-8.2 [facility] Comment on above: Performed By: #### C MP ####[facility] Rnwecgipjb8362 [place] [phone]. Flaco Otero Sodium [Moles/Vol] 136 mmol/L Normal 136-145 [facility] Comment on above: Performed By: #### C MP ####[facility] Kygkwsmoyf6545 [place] [phone]. Flaco Otero Urea nitrogen [Mass/Vol] 29.0 mg/dL Critically high 7.0-18.0 [facility] Comment on above: Performed By: #### C MP ####[facility] Ikzncyeimm8180 [place] [id number]. Flaco Branden Urea nitrogen/Creatinine [Mass ratio] 15.3 mg/mg Normal [facility] Comment on above: Performed By: #### C MP ####[facility] Qvqwxewgxw1768 [place] [address]Dr. Flaco Otero CBC AUTO DIFFon 07-31-2022 BASO # 0.0 103/ul Normal 0.0-0.1 [facility] Comment on above: Performed By: #### C BC ####[facility] Aydbojftjy2[address] [place], [place] [address]Dr. Flaco Otero Basophils/100 WBC (Bld) 0.2 % Normal 0.2-2.0 [facility] Comment on above: Performed By: #### C BC ####[facility] Anxmfrdkav597[address] [place], [place] [address]Dr. Flaco Otero EO # 0.0 103/ul Normal 0.0-0.7 [facility] Comment on above: Performed By: #### C BC ####[facility] Lbrjiifooz9274[address] [place], [place] [address]Dr. Flaco Otero Eosinophils/100 WBC (Bld) 0.1 % Critically low 0.9-7.0 [facility] Comment on above: Performed By: #### C BC ####[facility] Fyriribbac27[address] [place], [place] [address]Dr. Flaco Otero Erythrocyte distribution width (RBC) [Ratio] 13.7 % Normal 11.0-15.0 [facility] Comment on above: Performed By: #### C BC ####[facility] Kelzruljta350[address] [place], [place] [address]Dr. Flaco Otero Hematocrit (Bld) [Volume fraction] 40.1 % Critically low 42.0-54.0 [facility] Comment on above: Performed By: #### C BC ####[facility] Zxjbuofosb1467[address] [place], [place] [address]Dr. Flaco Otero Hemoglobin (Bld) [Mass/Vol] 13.1 g/dL Critically low 14.0-18.0 [facility] Comment on above: Performed By: #### C BC ####[facility] Fesuvvjhtk35[address] [place], [place] [address]Dr. Flaco Otero IG # 0.03 10e3/ul Normal 0.00-0.03 [facility] Comment on above: Performed By: #### C BC ####[facility] Aleqmikmce7511 [place] [address]DrJeramie Flaco Branden IG % 0.3 % Normal 0.0-0.5 [facility] Comment on above: Performed By: #### C BC ####[facility] Rhqfaupcwn7197 [place] [address]DrJeramie Flaco Branden LYMPH # 1.7 103/ul Normal 1.2-3.8 [facility] Comment on above: Performed By: #### C BC ####[facility] Qspvnupbny9387 [place] [address]DrJeramie Flaco Branden Lymphocytes/100 WBC (Bld) 16.2 % Critically low 20.5-60.0 [facility] Comment on above: Performed By: #### C BC ####[facility] Zkonjczqbu[address] [place], [place] [address]DrJeramie Flaco Branden MANUAL DIFF REQ NO Normal [facility] Comment on above: Performed By: #### C BC ####[facility] Scqulhlhze3100 [place] [address]DrJeramie Flaco Branden MCH (RBC) [Entitic mass] 29.2 pg Normal 25.9-34.0 [facility] Comment on above: Performed By: #### C BC ####[facility] Ubyegluljd[address] [place], [place] [address]DrJeramie Flaco Branden MCHC (RBC) [Mass/Vol] 32.7 g/dL Normal 29.9-35.2 [facility] Comment on above: Performed By: #### C BC ####[facility] Erichbfwrw[address] [place], [place] [address]DrJeramie Otero MCV (RBC) [Entitic vol] 89.3 fL Normal 80.0-94.0 [facility] Comment on above: Performed By: #### C BC ####[facility] Hzbpdklodh[address] [place], [place] [address]DrJeramie Otero MONO # 1.2 103/ul Critically high 0.3-0.8 [facility] Comment on above: Performed By: #### C BC ####[facility] Ladspzltra1715 [place] [address]DrJeramie Flaco Otero Monocytes/100 WBC (Bld) 11.1 % Normal 1.7-12.0 [facility] Comment on above: Performed By: #### C BC ####[facility] Rypbziuakd8521 [place] [address]DrJeramie Flaco Otero NEUT # 7.7 103/ul Critically high 1.4-6.5 [facility] Comment on above: Performed By: #### C BC ####[facility] Owqzqyydzp4034 [place] [address]DrJeramie Flaco Otero Neutrophils/100 WBC (Bld) 72.1 % Normal 43.0-75.0 [facility] Comment on above: Performed By: #### C BC ####[facility] Vcexchzhhv4179 [place] [address]DrJeramie Flaco Otero Platelet mean volume (Bld) [Entitic vol] 9.9 fL Normal 9.5-13.5 [facility] Comment on above: Performed By: #### C BC ####[facility] Ghilyzxgfq5852 [place] [address]Dr. Flaco Otero PLT 263 103/ul Normal 150-450 [facility] Comment on above: Performed By: #### C BC ####[facility] Islggwaqqf4926 [place] [address]DrJeramie Flaco Otero RBC 4.49 106/ul Critically low 4.70-6.10 [facility] Comment on above: Performed By: #### C BC ####[facility] Uzdcdxtofi8074 [place] [address]DrJeramie Lojaedith Branden WBC 10.7 103/ul Normal 4.0-11.0 [facility] Comment on above: Performed By: #### C BC ####[facility] Sognytwpzw7331 [place] [address]DrJeramie Otero PROF 14(COMP METB)on 022 Albumin [Mass/Vol] 2.8 g/dL Critically low 3.4-5.0 [facility] Comment on above: Performed By: #### C MP ####[facility] Lhzmdireig8681 [place] [address]Dr. Flaco Otero Albumin/Globulin [Mass ratio] 0.8 {ratio} Normal [facility] Comment on above: Performed By: #### C MP ####[facility] Snrtuedirn0574 [place] [address]Dr. Flaco Otero ALP [Catalytic activity/Vol] 59 U/L Normal 46-116 [facility] Comment on above: Performed By: #### C MP ####[facility] [facility] Miqyoylitf[address] [place], [place] [address]Dr. Flaco Otero ALT [Catalytic activity/Vol] 30 U/L Normal 16-63 [facility] Comment on above: Performed By: #### C MP ####[facility] Dxveohabtr9[address] [place], [place] [address]Dr. Flaco Otero Anion gap [Moles/Vol] 14.8 mmol/L Normal [facility] Comment on above: Performed By: #### C MP ####[facility] Cbakoblbwl76[address] [place], [place] [address]Dr. Flaco Otero AST [Catalytic activity/Vol] 56 U/L Critically high 15-37 [facility] Comment on above: Performed By: #### C MP ####[facility] Yqqrtlgzwi4[address] [place], [place] [address]Dr. Flaco Otero Bilirubin [Mass/Vol] 0.8 mg/dL Normal 0.2-1.0 [facility] Comment on above: Performed By: #### C MP ####[facility] Tgqnemqalm0337[address] [place], [place] [address]Dr. Flaco Otero Calcium [Mass/Vol] 9.0 mg/dL Normal 8.5-10.1 [facility] Comment on above: Performed By: #### C MP ####[facility] Wctyrynmhk1489[address] [place], [place] [address]Dr. Flaco Otero Chloride [Moles/Vol] 106 mmol/L Normal 98-107 [facility] Comment on above: Performed By: #### C MP ####[facility] F[address]quav[address] [place] [address]Dr. Flaco Branden CO2 [Moles/Vol] 24.7 mmol/L Normal 21.0-32.0 [facility] Comment on above: Performed By: #### C MP ####[facility] Qqisdyoohs[address] [place] [address]Dr. Flaco Branden Creatinine [Mass/Vol] 2.12 mg/dL Critically high 0.70-1.30 [facility] Comment on above: Performed By: #### C MP ####[facility] Unsgfrtwrg15[address] [place] [address]Dr. Flaco Branden EGFR-AF SAMOAN 38 mL/min/1.73m2 Critically low >=60 [facility] Comment on above: Performed By: #### C MP ####[facility] Nvcdetibxe[address] [place], [place] [address]Dr. Flaco Branden EGFR-NON AF SAMOAN 31 mL/min/1.73m2 Critically low >=60 [facility] Comment on above: Performed By: #### C MP ####[facility] Ququfjphdx4[address] [place], [place] [address]Dr. Flaco Branden Globulin (S) [Mass/Vol] 3.7 g/dL Normal [facility] Comment on above: Performed By: #### C MP ####[facility] Ypojgujact[address] [place] [address]Dr. Flaco Otero Glucose [Mass/Vol] 79 mg/dL Normal 74-106 [facility] Comment on above: Performed By: #### C MP ####[facility] Jzgklwexpr80[address] [place] [id number]. Flaco Otero Potassium [Moles/Vol] 3.5 mmol/L Normal 3.5-5.1 [facility] Comment on above: Performed By: #### C MP ####[facility] Zhgljgskok[address] [place], [place] [address]Dr. Flaco Otero Protein [Mass/Vol] 6.5 g/dL Normal 6.4-8.2 [facility] Comment on above: Performed By: #### C MP ####[facility] Wxhbtolwgo4890[address] [place], [place] [address]Dr. Flaco Otero Sodium [Moles/Vol] 142 mmol/L Normal 136-145 [facility] Comment on above: Performed By: #### C MP ####[facility] Syuauqfcra01[address] [place], [place] [address]Dr. Flaco Otero Urea nitrogen [Mass/Vol] 32.0 mg/dL Critically high 7.0-18.0 [facility] Comment on above: Performed By: #### C MP ####[facility] Unntxttiia2811[address] [place], [place] [address]Dr. Flaco Otero Urea nitrogen/Creatinine [Mass ratio] 15.1 mg/mg Normal [facility] Comment on above: Performed By: #### C MP ####[facility] Nglarcqiub9909[address] [place], [place] [address]Dr. Flaco Otero T4on 07-31-2022 T4 [Mass/Vol] 7.10 ug/dL Normal 4.50-12.10 [facility] Comment on above: Performed By: #### T SH, T4 ####[facility] Ssulqqlbiw[address] [place], [place] [address]Dr. Flaco Otero TSHon 07-31-2022 TSH 0.871 uIU/mL Normal 0.358-3.740 [facility] Comment on above: Performed By: #### T SH, T4 ####[facility] Wotriuhsck6456[address] [place], [place] [address]Dr. Flaco Otero VIT B12 AND FOLATEon 022 Cobalamin (Vitamin B12) [Mass/Vol] 130.0 pg/mL Critically low 193.0-986.0 [facility] Comment on above: Performed By: #### B 12FOL ####[facility] Lrxjocxnue6335[address] [place], [place] [address]Dr. Flaco Otero FOLATE 6.20 ng/mL Critically low 8.60-58.90 [facility] Comment on above: Performed By: #### B 12FOL ####[facility] Wlmbqdlzqj[address] [place] [address]Dr. Flaco Branden AMMONIAon 07-30-2022 Ammonia (P) [Mass/Vol] ug/dL Critically low 11-32 [facility] Comment on above: Performed By: #### A MM ####[facility] Sneyuzeocu177[address] [place], [place] [address]Dr. Flaco Branden CBC AUTO DIFFon 07-30-2022 BASO # 0.0 103/ul Normal 0.0-0.1 [facility] Comment on above: Performed By: #### C BC ####[facility] Yoqfnlfvgu075[address] [place], [place] [address]Dr. Flaco Otero Basophils/100 WBC (Bld) 0.1 % Critically low 0.2-2.0 [facility] Comment on above: Performed By: #### C BC ####[facility] Amzrnzcikw25[address] [place], [place] [address]Dr. Flaco Otero EO # 0.0 103/ul Normal 0.0-0.7 [facility] Comment on above: Performed By: #### C BC ####[facility] Vjtlmobqst[address] [place], [place] [address]Dr. Flaco Otero Eosinophils/100 WBC (Bld) 0.1 % Critically low 0.9-7.0 [facility] Comment on above: Performed By: #### C BC ####[facility] Vwuqczwkpz8174[address] [place], [place] [address]Dr. Flaco Otero Erythrocyte distribution width (RBC) [Ratio] 13.5 % Normal 11.0-15.0 [facility] Comment on above: Performed By: #### C BC ####[facility] Ohdfttwwwj419[address] [place], [place] [address]Dr. Flaco Otero Hematocrit (Bld) [Volume fraction] 37.8 % Critically low 42.0-54.0 [facility] Comment on above: Performed By: #### C BC ####[facility] Wxwdgliwwl1208[address] [place], [place] [address]Dr. Flaco Otero Hemoglobin (Bld) [Mass/Vol] 12.8 g/dL Critically low 14.0-18.0 [facility] Comment on above: Performed By: #### C BC ####[facility] Vbpocztnug6[address] [place] [address]DrJeramie Otero IG # 0.06 10e3/ul Critically high 0.00-0.03 [facility] Comment on above: Performed By: #### C BC ####[facility] Luxvyjznxb4432 [place] [address]Dr. Flaco Otero IG % 0.4 % Normal 0.0-0.5 [facility] Comment on above: Performed By: #### C BC ####[facility] Phejzrrsiv1975[address] [place], [place] [address]DrJeramie Otero LYMPH # 1.0 103/ul Critically low 1.2-3.8 [facility] Comment on above: Performed By: #### C BC ####[facility] Hzngrbbppl4955[address] [place], [place] [address]DrJeramie Otero Lymphocytes/100 WBC (Bld) 7.0 % Critically low 20.5-60.0 [facility] Comment on above: Performed By: #### C BC ####[facility] Xfwirlmmll314[address] [place], [place] [address]DrJeramie Otero MANUAL DIFF REQ NO Normal [facility] Comment on above: Performed By: #### C BC ####[facility] Xykzuxtkzq[address] [place] [address]DrJeramie Otero MCH (RBC) [Entitic mass] 29.6 pg Normal 25.9-34.0 [facility] Comment on above: Performed By: #### C BC ####[facility] Mshxdqfgof29[address] [place], [place] [address]DrJeramie Otero MCHC (RBC) [Mass/Vol] 33.9 g/dL Normal 29.9-35.2 [facility] Comment on above: Performed By: #### C BC ####[facility] Mcuasyajnt5467[address] [place], [place] [address]DrJeramie Otero MCV (RBC) [Entitic vol] 87.3 fL Normal 80.0-94.0 [facility] Comment on above: Performed By: #### C BC ####[facility] E[address]zfvy[address] [place] [address]Dr. Flaco Otero MONO # 1.4 103/ul Critically high 0.3-0.8 [facility] Comment on above: Performed By: #### C BC ####[facility] Tyhxrcyeyh1627[address] [place], [place] [address]Dr. Flaco Branden Monocytes/100 WBC (Bld) 9.2 % Normal 1.7-12.0 [facility] Comment on above: Performed By: #### C BC ####[facility] Wdydcwkbrq6905[address] [place], [place] [address]Dr. Flaco Otero NEUT # 12.3 103/ul Critically high 1.4-6.5 [facility] Comment on above: Performed By: #### C BC ####[facility] Rzvceuadwi3598[address] [place], [place] [address]Dr. Flaco Branden Neutrophils/100 WBC (Bld) 83.2 % Critically high 43.0-75.0 [facility] Comment on above: Performed By: #### C BC ####[facility] Efgdnvezwv[address] [place], [place] [address]Dr. Flaco Branden Platelet mean volume (Bld) [Entitic vol] 10.4 fL Normal 9.5-13.5 [facility] Comment on above: Performed By: #### C BC ####[facility] Cnnkfjlbpy65[address] [place], [place] [address]Dr. Flaco Branden PLT 266 103/ul Normal 150-450 [facility] Comment on above: Performed By: #### C BC ####[facility] Htazlpsh[address] [place], [place] [id number] Otero RBC 4.33 106/ul Critically low 4.70-6.10 [facility] Comment on above: Performed By: #### C BC ####[facility] Cdsrltjrht0123[address] [place], [place] [address]DrJeramie Otero WBC 14.8 103/ul Critically high 4.0-11.0 [facility] Comment on above: Performed By: #### C BC ####[facility] Aayhorwibx[address] [place] [address]DrJeramie Otero CRPon 07-30-2022 CRP 12.2 mg/dL Critically high <=1.0 [facility] Comment on above: Performed By: #### C RP ####[facility] Osgvlxaggj4[address] [place] [address]DrJeramie Otero CT FOOT RT WO CONon 07-30-[address] FOOT RT WO CON Normal [facility] MRI BRAIN WO CONon 2 MRI BRAIN WO CON Normal [facility] PROF 14(COMP METB)on 022 Albumin [Mass/Vol] 2.7 g/dL Critically low 3.4-5.0 [facility] Comment on above: Performed By: #### C MP ####[facility] Kzpwxgtdaf60[address] [place] [address]Dr. Flaco Otero Albumin/Globulin [Mass ratio] 0.7 {ratio} Normal [facility] Comment on above: Performed By: #### C MP ####[facility] Itslndtscy7045 [place] [address]Dr. Flaco Otero ALP [Catalytic activity/Vol] 61 U/L Normal 46-116 [facility] Comment on above: Performed By: #### C MP ####[facility] Hxroveejxi6917 [place] [address]Dr. Flaco Otero ALT [Catalytic activity/Vol] 27 U/L Normal 16-63 [facility] Comment on above: Performed By: #### C MP ####[facility] Bihmffbbsq[address] [place] [id number] Otero Anion gap [Moles/Vol] 16.1 mmol/L Normal [facility] Comment on above: Performed By: #### C MP ####[facility] Iuuwwnmrxu37[address] [place] [address]Dr. Flaco Otero AST [Catalytic activity/Vol] 39 U/L Critically high 15-37 [facility] Comment on above: Performed By: #### C MP ####[facility] Rndamafatu25[address] [place] [id number]. Flaco Otero Bilirubin [Mass/Vol] 1.1 mg/dL Critically high 0.2-1.0 [facility] Comment on above: Performed By: #### C MP ####[facility] Ytaamfcyzv5974 [place] [id number]. Flaco Otero Calcium [Mass/Vol] 9.0 mg/dL Normal 8.5-10.1 [facility] Comment on above: Performed By: #### C MP ####[facility] Jkxaepmtyh72[address] [place] [address]Dr. Flaco Branden Chloride [Moles/Vol] 103 mmol/L Normal 98-107 [facility] Comment on above: Performed By: #### C MP ####[facility] Ezcxxhmbsb[address] [place], [place] [address]Dr. Flaco Branden CO2 [Moles/Vol] 21.8 mmol/L Normal 21.0-32.0 [facility] Comment on above: Performed By: #### C MP ####[facility] Wkfscthmwp[address] [place], [place] [id number]. Flaco Branden Creatinine [Mass/Vol] 2.03 mg/dL Critically high 0.70-1.30 [facility] Comment on above: Performed By: #### C MP ####[facility] Hzgkjsdsmg7091 [place] [id number]. Flaco Branden EGFR-AF SAMOAN 39 mL/min/1.73m2 Critically low >=60 [facility] Comment on above: Performed By: #### C MP ####[facility] Yhmpkykvor6[address] [place], [place] [address]Dr. Purviedith Branden EGFR-NON AF SAMOAN 33 mL/min/1.73m2 Critically low >=60 [facility] Comment on above: Performed By: #### C MP ####[facility] Zdparjtfxh8245 [place] [id number]. Flaco Otero Globulin (S) [Mass/Vol] 3.9 g/dL Normal [facility] Comment on above: Performed By: #### C MP ####[facility] Rxxpyjvpkk7807 [place] [address]Dr. Flaco Otero Glucose [Mass/Vol] 122 mg/dL Critically high 74-106 [facility] Comment on above: Performed By: #### C MP ####[facility] Fafduytsjm3998 [place] [address]Dr. Flaco Branden Potassium [Moles/Vol] 2.9 mmol/L Critically low 3.5-5.1 [facility] Comment on above: Performed By: #### C MP ####[facility] Zbnbjfgamr00[address] [place], [place] [address]Dr. Flaco Branden Protein [Mass/Vol] 6.6 g/dL Normal 6.4-8.2 [facility] Comment on above: Performed By: #### C MP ####[facility] Mnnymumeht8866[address] [place], [place] [address]Dr. Flaco Branden Sodium [Moles/Vol] 139 mmol/L Normal 136-145 [facility] Comment on above: Performed By: #### C MP ####[facility] Qigogzhmka4964[address] [place], [place] [address]Dr. Flaco Branden Urea nitrogen [Mass/Vol] 30.0 mg/dL Critically high 7.0-18.0 [facility] Comment on above: Performed By: #### C MP ####[facility] Uburcemeqk8896[address] [place], [place] [address]Dr. Flaco Branden Urea nitrogen/Creatinine [Mass ratio] 14.8 mg/mg Normal [facility] Comment on above: Performed By: #### C MP ####[facility] Cwbyhyhjgh1447[address] [place], [place] [address]Dr. Purviedith Branden URIC ACID SERUMon 07-30-2022 Urate [Mass/Vol] 8.8 mg/dL Critically high 3.5-7.2 [facility] Comment on above: Performed By: #### U DAVID ####[facility] Duxnlihmzt6388[address] [place], [place] [address]Dr. Flaco Otero AMMONIAon 07-29-2022 Ammonia (P) [Mass/Vol] ug/dL Critically low 32 [facility] Comment on above: Performed By: #### A MM ####[facility] Zyxyatvnaw2[address] [place] [address]Dr. Flaco Otero BLOOD GASES BTYon 07-29-2022 02 MODE ROOM AIR Normal [facility] Comment on above: Performed By: #### A BG ####[facility] Whktkngtfp0834[address] [place], [place] [address]Dr. Flaco tOero ALLENS TEST Positive [facility] Comment on above: Performed By: #### A BG ####[facility] Lnxjzanwmq268[address] [place], [place] [address]Dr. Flaco Otero Base excess Calc (Bld) [Moles/Vol] -3.7000 mmol/L Critically low -2.0-2.0 [facility] Comment on above: Performed By: #### A BG ####[facility] Ionbannlnc9109[address] [place], [place] [address]Dr. Flaco Otero BIPAP PRESSURE Normal [facility] Comment on above: Performed By: #### A BG ####[facility] Clblupdlio444[address] [place], [place] [address]Dr. Flaco Otero CPAP [facility] Comment on above: Performed By: #### A BG ####[facility] Cblxuuusgx3244[address] [place], [place] [address]Dr. Flaco Otero FIO2 Normal [facility] Comment on above: Performed By: #### A BG ####[facility] Dljsgxjkgv6[address] [place], [place] [address]Dr. Flaco Otero HCO3 (Bld) [Moles/Vol] 20.4 mmol/L Critically low 22.0-26. 0 [facility] Comment on above: Performed By: #### A BG ####[facility] Dqwvofopie[address] [place], [place] [address]Dr. Flaco Otero LPM Normal [facility] Comment on above: Performed By: #### A BG ####[facility] Nztzzfejks17[address] [place], [place] [address]DrJeramie Otero MINUTE VOLUME Normal [facility] Comment on above: Performed By: #### A BG ####[facility] Yrgzdxnagg0530[address] [place], [place] [address]Dr. Flaco Otero Oxygen (Bld) [Partial pressure] 73.0 mm[Hg] Critically low 80.0-100.0 [facility] Comment on above: Performed By: #### A BG ####[facility] Tauofgbtef8707[address] [place], [place] [address]Dr. Flaco Otero Oxygen saturation in Blood 95.5 % Normal 95.0-100.0 [facility] Comment on above: Performed By: #### A BG ####[facility] Datsfycczt3495[address] [place], [place] [address]DrJeramie Otero PCO2 29.7 mmHg Critically low 35.0-45.0 [facility] Comment on above: Performed By: #### A BG ####[facility] Xoclacirwr1840[address] [place], [place] [address]DrJeramie Otero PEEP [facility] Comment on above: Performed By: #### A BG ####[facility] Gfbkmbxbod[address] [place], [place] [address]DrJeramie Otero pH (Bld) 7.445 [pH] Normal 7.350-7.450 [facility] Comment on above: Performed By: #### A BG ####[facility] Hguhwksipc[address] [place], [place] [address]DrJeramie Otero PIP [facility] Comment on above: Performed By: #### A BG ####[facility] Mleqgouhbv4[address] [place], [place] [address]Dr. Flaco Otero PS [facility] Comment on above: Performed By: #### A BG ####[facility] Fgjvmavukg[address] [place], [place] [address]DrJeramie Otero PUNCTURE SITE RR Normal [facility] Comment on above: Performed By: #### A BG ####[facility] Nfuuxwjluj74[address] [place], [place] [address]Dr. Flaco Otero RATE [facility] Comment on above: Performed By: #### A BG ####[facility] C[address]qjcgvpzh75[address] [place] [address]Dr. Flaco Branden VENT MODE Normal [facility] Comment on above: Performed By: #### A BG ####[facility] Jjsdyutqtb4474 [place] [address]Dr. Flaco Branden VT Normal [facility] Comment on above: Performed By: #### A BG ####[facility] Inkroqskyh36[address] [place] [address]Dr. Purviedith Otero CBC W MANUAL DIFFon 07-29-20 22 ATYPICAL LYMPH # Normal [facility] Comment on above: Performed By: #### C C[place] ####[facility] Mxbblxsiit9[address] [place] [address]Dr. Purviedith Otero ATYPICAL LYMPH % Normal [facility] Comment on above: Performed By: #### C C[place] ####[facility] Kggkwgmkki9519 [place] [address]Dr. Flaco Branden BAND # 0.6 103/ul Critically high 0.0-0.3 [facility] Comment on above: Performed By: #### C [place] ####[facility] Yvvydrhaay5083 [place] [address]Dr. Flaco Branden BAND % 4 % Normal 0-5 [facility] Comment on above: Performed By: #### C C[place] ####[facility] Sbpdvjbzzs2747 [place] [address]Dr. Flaco Branden BASOM # 0.00 103/ul Normal 0.00-0.10 [facility] Comment on above: Performed By: #### C [place] ####[facility] Vjpsyrrush6139 [place] [address]Dr. Flaco Otero BASOM % 0.0 % Critically low 0.2-2.0 [facility] Comment on above: Performed By: #### C [place] ####[facility] Fgahxgzyfb0512 [place] [address]Dr. Flaco Otero BLAST # Normal [facility] Comment on above: Performed By: #### C [place] ####[facility] Jpowtcqkpo6[address] [place] [id number]. Flaco Otero BLAST % Normal [facility] Comment on above: Performed By: #### C [place] ####[facility] Jnqnopavlp1516 [place] [id number]. Flaco Otero CORRECTED WBC Normal 4.0-11.0 [facility] Comment on above: Performed By: #### C [place] ####[facility] Wbvgmavcwb2846 [place] [id number]. Flaco Otero EOS # 0.00 103/ul Normal 0.00-0.70 [facility] Comment on above: Performed By: #### C [place] ####[facility] Dmrjlpbers4160 [place] [address]Dr. Flaco Otero EOS% 0.0 % Critically low 0.9-7.0 [facility] Comment on above: Performed By: #### C [place] ####[facility] Yqoajkdkxn[address] [place], [place] [address]Dr. Flaco Otero HCT 43.8 % Normal 42.0-54.0 [facility] Comment on above: Performed By: #### C [place] ####[facility] Qxlaotuafk[address] [place], [place] [address]Dr. Flaco Otero HGB 14.6 g/dl Normal 14.0-18.0 [facility] Comment on above: Performed By: #### C [place] ####[facility] Jonobdmdzj5001 [place] [id number]. Flaco Otero LYMPHM # 0.72 103/ul Critically low 1.20-3.80 [facility] Comment on above: Performed By: #### C [place] ####[facility] Vsonlkmhre[address] [place], [place] [id number]. Flaco Otero LYMPHM% 5.0 % Critically low 20.5-60.0 [facility] Comment on above: Performed By: #### C [place] ####[facility] Ccikmxquhu[address] [place], [place] [address]Dr. Flaco Otero MCH 29.6 pg Normal 25.9-34.0 [facility] Comment on above: Performed By: #### C [place] ####[facility] Tubpdbzysk57[address] [place] [id number]. Flaco Otero MCHC 33.3 g/dl Normal 29.9-35.2 [facility] Comment on above: Performed By: #### C [place] ####[facility] Ucngycutbm8846 [place] [id number]. Flaco Otero MCV 88.7 fL Normal 80.0-94.0 [facility] Comment on above: Performed By: #### C BCGAYATHRI ####[facility] Nwtvoyrfkd3332 [place] [id number]. Flaco Otero METAMYELOCYTE # Normal [facility] Comment on above: Performed By: #### C [place] ####[facility] [facility] [address] [place], [place] [id number]. Flaco Otero METAMYELOCYTE % Normal [facility] Comment on above: Performed By: #### C [place] ####[facility] Fdakrbfyzq8840 [place] [id number]. Flaco Otero MONOM# 0.14 103/ul Critically low 0.30-0.80 [facility] Comment on above: Performed By: #### C C[place] ####[facility] Jkrhfqtugm4543 [place] [id number]. Flaco Otero MONOM% 1.0 % Critically low 1.7-12.0 [facility] Comment on above: Performed By: #### C C[place] ####[facility] Rgydjdxgif5839 [place] [id number]. Flaco Otero MPV 10.6 fL Normal 9.5-13.5 [facility] Comment on above: Performed By: #### C C[place] ####[facility] Eioxsdcifd4124 [place] [id number]. Flaco Otero MYELOCYTE # Normal [facility] Comment on above: Performed By: #### C C[place] ####[facility] Lsxnsgxmwv5222 [place], [place] [address]Al. Flaco Otero MYELOCYTE % Normal [facility] Comment on above: Performed By: #### C C[place] ####[facility] Lgxvrbxlus8195 [place] [id number]. Flaco Oetro NRBC Normal [facility] Comment on above: Performed By: #### C C[place] ####[facility] Jvncxwpxid7593 [place] [id number]. Flaco Otero PLT 267 103/ul Normal 150-450 [facility] Comment on above: Performed By: #### C C[place] ####[facility] Cofxfrqoks2836 [place] [id number]. Flaco Otero RBC 4.94 106/ul Normal 4.70-6.10 [facility] Comment on above: Performed By: #### C C[place] ####[facility] Hvmxxhqbnq1414 [place] [id number]. Flaco Otero RDW 13.6 % Normal 11.0-15.0 [facility] Comment on above: Performed By: #### C [place] ####[facility] Vmjsvxhtbu2322 [place] [id number]. Flaco Otero SEG # 12.96 103/ul Critically high 1.40-6.50 [facility] Comment on above: Performed By: #### C C[place] ####[facility] Myfkcybyjz6581 [place] [id number]. Flaco Otero SEG % 90.0 % Critically high 43.0-75.0 [facility] Comment on above: Performed By: #### C C[place] ####[facility] Hezwgfcivj8689 [place] [id number]. Flaco Otero TOXIC GRANULATION 2+ Normal [facility] Comment on above: Performed By: #### C [place] ####[facility] Nskcucxkbh7411 [place] [id number]. Flaco Otero WBC 14.4 103/ul Critically high 4.0-11.0 [facility] Comment on above: Performed By: #### C C[place] ####[facility] Wsbufkazzo23[address] [place], [place] [address]Dr. Flaco Otero CT ABD/PELVIS WO CONon 07-29 CT ABD/PELVIS WO CON Normal [facility] CT HEAD WO CONon 07-29-2022 CT HEAD WO CON Normal [facility] CULTURE URINEon 07-29-2022 CULTURE URINE Culture Observations : NO GROWTH. Normal [facility] Comment on above: Performed By: #### U RCX ####[facility] Cteqzvrekk32[address] [place], [place] [address]Dr. Flaco Otero ER URINE PROFILEon 2 Bilirubin Ql (U) MODERATE Abnormal NEGATIVE [facility] Comment on above: Performed By: #### EVERARDO RAMONRO ####[facility] Qxtzahuxow06[address] [place], [place] [address]Dr. Flaco Otero Clarity (U) CLEAR Normal CLEAR [facility] Comment on above: Performed By: #### EVERARDO RAMONRO ####[facility] Lteladgvqg56[address] [place], [place] [address]Dr. Flaco Otero Color (U) YELLOW Normal YELLOW [facility] Comment on above: Performed By: #### EVETTE RAMON ####[facility] Dxpymgfpgl[address] [place], [place] [address]Dr. Flaco Otero ERUAHD A micrscopic examination will be performed if indicated. Normal [facility] Comment on above: Performed By: #### EVERARDO RAMONRO ####[facility] Tnycdrmhyg5[address] [place], [place] [address]Dr. Flaco Otero Glucose Ql (U) Negative Normal NEGATIVE [facility] Comment on above: Performed By: #### EVERARDO RAMONRO ####[facility] Vbysfjcaiz[address] [place], [place] [address]Dr. Flaco Otero Hemoglobin Ql (U) MODERATE Abnormal NEGATIVE [facility] Comment on above: Performed By: #### EVERARDO RAMONRO ####[facility] Yxfnpfqhgb9068[address] [place], [place] [address]Dr. Flaco Otero Ketones Ql (U) 40 mg/dl Abnormal NEGATIVE [facility] Comment on above: Performed By: #### Riccardo SENA UMICRO ####[facility] Ktxarupwxs5267 [place] [address]Dr. Flaco Otero LEUKOCYTES Negative Normal NEGATIVE [facility] Comment on above: Performed By: #### Riccardo SENA UMICRO ####[facility] Kpoojgnuhr7994 [place] [address]Dr. Flaco Otero Nitrite Ql (U) Negative Normal NEGATIVE [facility] Comment on above: Performed By: #### Riccardo SENA UMICRO ####[facility] Pjrjwxgjmr0804 [place] [address]Dr. Flaco Otero pH (U) 5.5 [pH] Normal 5-9 [facility] Comment on above: Performed By: #### Riccardo SENA UMICRO ####[facility] Qlkhrjzgyv1311 [place] [address]Dr. Flaco Otero Protein (U) [Mass/Vol] 100 mg/dL Abnormal NEGAT LIANNE/ TRACE [facility] Comment on above: Performed By: #### JOHNATHAN RAMONICRO ####[facility] Goyznlktbi64[address] [place], [place] [address]Dr. Flaco Otero SPEC GRAVITY >=1.030 Abnormal 1.005-<=1.02 5 [facility] Comment on above: Performed By: #### Riccardo SENA UMICRO ####[facility] Bydoyruqri1184 [place] [address]Dr. Flaco Otero UR MICRO IND INDICATED Normal [facility] Comment on above: Performed By: #### JOHNATHAN RAMONICRO ####[facility] Kuihgnpnqx6397 [place] [address]Dr. Flaco Otero Urobilinogen Qn (U) 1.0 {Tuan'U}/dL Normal 0.2 - 1. 0 [facility] Comment on above: Performed By: #### Riccardo SENA UMICRO ####[facility] Rpkzrzuqxx4165 [place] [address]Dr. Flaco Otero LACTATE/LACTIC ACIDon 2021 Lactate [Moles/Vol] 2.3 mmol/L Critically high 0.4-1.9 [facility] Comment on above: Performed By: #### L ACT ####[facility] Vmpjurdwxu88[address] [place], [place] [address]Dr. Flaco Otero PROF 14(COMP METB)on 022 Albumin [Mass/Vol] 2.9 g/dL Critically low 3.4-5.0 [facility] Comment on above: Performed By: #### C MP ####[facility] Lygsssvxhl[address] [place], [place] [address]Dr. Flaco Otero Albumin/Globulin [Mass ratio] 0.7 {ratio} Normal [facility] Comment on above: Performed By: #### C MP ####[facility] Ryvjlpmotn72[address] [place], [place] [address]Dr. Flaco Otero ALP [Catalytic activity/Vol] 78 U/L Normal 46-116 [facility] Comment on above: Performed By: #### C MP ####[facility] Ilhnahumtr[address] [place], [place] [address]Dr. Flaco Otero ALT [Catalytic activity/Vol] 33 U/L Normal 16-63 [facility] Comment on above: Performed By: #### C MP ####[facility] Juvptlncvy[address] [place], [place] [address]Dr. Flaco Otero Anion gap [Moles/Vol] 14.5 mmol/L Normal [facility] Comment on above: Performed By: #### C MP ####[facility] Fkjsgmxrfx5[address] [place], [place] [address]Dr. Flaco Otero AST [Catalytic activity/Vol] 38 U/L Critically high 15-37 [facility] Comment on above: Performed By: #### C MP ####[facility] Uytipueqhc[address] [place], [place] [address]Dr. Flaco Otero Bilirubin [Mass/Vol] 1.6 mg/dL Critically high 0.2-1.0 [facility] Comment on above: Performed By: #### C MP ####[facility] Vcsztnrqly17[address] [place], [place] [address]Dr. Flaco Otero Calcium [Mass/Vol] 9.2 mg/dL Normal 8.5-10.1 [facility] Comment on above: Performed By: #### C MP ####[facility] Ojzuswlwci7854 [place] [address]Dr. Flaco Otero Chloride [Moles/Vol] 104 mmol/L Normal 98-107 [facility] Comment on above: Performed By: #### C MP ####[facility] Kzinlxifyx0964[address] [place], [place] [address]Dr. Flaco Otero CO2 [Moles/Vol] 23.5 mmol/L Normal 21.0-32.0 [facility] Comment on above: Performed By: #### C MP ####[facility] Jfdyuxobol88[address] [place], [place] [address]Dr. Flaco Otero Creatinine [Mass/Vol] 1.95 mg/dL Critically high 0.70-1.30 [facility] Comment on above: Performed By: #### C MP ####[facility] Odnawywvqy4[address] [place], [place] [address]Dr. Flaco Otero EGFR-AF SAMOAN 41 mL/min/1.73m2 Critically low >=60 [facility] Comment on above: Performed By: #### C MP ####[facility] Epaqsrdolc4[address] [place], [place] [address]Dr. Flaco Otero EGFR-NON AF SAMOAN 34 mL/min/1.73m2 Critically low >=60 [facility] Comment on above: Performed By: #### C MP ####[facility] Ubsddyagfs8606 [place] [address]Dr. Flaco Otero Globulin (S) [Mass/Vol] 4.3 g/dL Normal [facility] Comment on above: Performed By: #### C MP ####[facility] Iuppruszem9[address] [place], [place] [address]Dr. Flaco Otero Glucose [Mass/Vol] 169 mg/dL Critically high 74-106 [facility] Comment on above: Performed By: #### C MP ####[facility] Iqgecaqbkz3[address] [place], [place] [address]Dr. Flaco Otero Potassium [Moles/Vol] 4.0 mmol/L Normal 3.5-5.1 [facility] Comment on above: Performed By: #### C MP ####[facility] Lclxfjcqcb0303 [place] [address]Dr. Flaco Otero Protein [Mass/Vol] 7.2 g/dL Normal 6.4-8.2 [facility] Comment on above: Performed By: #### C MP ####[facility] Rhqurkvcyy5[address] [place], [place] [address]Dr. Flaco Otero Sodium [Moles/Vol] 138 mmol/L Normal 136-145 [facility] Comment on above: Performed By: #### C MP ####[facility] Bfgojrbkji8[address] [place], [place] [address]Dr. Flaco Otero Urea nitrogen [Mass/Vol] 29.0 mg/dL Critically high 7.0-18.0 [facility] Comment on above: Performed By: #### C MP ####[facility] Mtajrljitf[address] [place], [place] [address]Dr. Flaco Otero Urea nitrogen/Creatinine [Mass ratio] 14.9 mg/mg Normal [facility] Comment on above: Performed By: #### C MP ####[facility] Bhgvvupvko0[address] [place], [place] [address]Dr. Flaco Branden URINE MICROSCOPIC ONLYon AMORPHOUS CRYSTALS MODERATE Normal [facility] Comment on above: Performed By: #### EVERARDO RAMONRO ####[facility] Gvbncbkigo[address] [place], [place] [address]Dr. Purviedith Branden BACTERIA MODERATE Abnormal NONE SEEN [facility] Comment on above: Performed By: #### EVERARDO RAMONRO ####[facility] Ztrwxunebe8660[address] [place], [place] [address]Dr. Flaco Otero Bacteria identified Cx Nom (U) INDICATED Normal [facility] Comment on above: Performed By: #### EVERARDO RAMONRO ####[facility] Juzeerotff[address] [place], [place] [address]Dr. Flaco Otero CAST SEEN Abnormal NONE SEEN [facility] Comment on above: Performed By: #### Riccardo SENA UMICRO ####[facility] Nwwrtnrhsp8855 [place] [address]Dr. Flaco Otero COARSE GRANULAR CAST RARE Normal [facility] Comment on above: Performed By: #### Riccardo SENA UMICRO ####[facility] Wjfeetmmsa8515 [place] [address]Dr. Flaco Otero Crystals LM Nom (Urine sed) SEEN Abnormal NONE SEEN [facility] Comment on above: Performed By: #### Riccardo SENA UMICRO ####[facility] Yjhsbomuex20[address] [place], [place] [address]Dr. Flaco Otero Epithelial cells LM Ql (Urine sed) RARE Normal NONE SEEN /RARE [facility] Comment on above: Performed By: #### Riccardo SENA UMICRO ####[facility] Apdqhukrrq[address] [place], [place] [address]Dr. Flaco Otero MUCOUS TRACE Abnormal NONE SEEN [facility] Comment on above: Performed By: #### Riccardo SENA UMICRO ####[facility] Yhkcwkimvt8[address] [place], [place] [address]Dr. Flaco Otero RBC 0-2 Normal 0-2 [facility] Comment on above: Performed By: #### Riccardo SENA UMICRO ####[facility] Mwgdplvuwf47[address] [place], [place] [address]Dr. Flaco Otero WBC 0-2 Abnormal NONE SEEN [facility] Comment on above: Performed By: #### Riccardo SENA UMICRO ####[facility] Dvntywyofm[address] [place], [place] [address]Dr. Flaco Otero BNPon 07-28-2022 Natriuretic peptide B (Bld) [Mass/Vol] 258.0 pg/mL Normal <=900.0 [facility] Comment on above: Performed By: #### C MP, BNP, HSTROPN ####[facility] Aaoyshhdxu37[address] [place] [address]Dr. Flaco Otero CBC W MANUAL DIFFon 07-28-20 22 ATYPICAL LYMPH # 0.21 103/ul Normal [facility] Comment on above: Performed By: #### C [place] ####[facility] Gbtctnkzjq7719 [place] [id number]. Flaco Otero ATYPICAL LYMPH % 1 % Normal [facility] Comment on above: Performed By: #### C [place] ####[facility] Inggmieysy7464 [place] [id number]. Yilan Otero BAND # 0.0 103/ul Normal 0.0-0.3 [facility] Comment on above: Performed By: #### C [place] ####[facility] Dodrvghtpw5124 [place] [address]Dr. Yilan Otero BAND % 0 % Normal 0-5 [facility] Comment on above: Performed By: #### C [place] ####[facility] Azvcjfnrtz8714 [place] [address]Dr. Flaco Otero BASOM # 0.00 103/ul Normal 0.00-0.10 [facility] Comment on above: Performed By: #### C [place] ####[facility] Wymvdvkewm7607 [place] [address]Dr. Yiedith Otero BASOM % 0.0 % Critically low 0.2-2.0 [facility] Comment on above: Performed By: #### C [place] ####[facility] Wucckzjefp7807 [place] [address]Dr. Yiedith Otero BLAST # Normal [facility] Comment on above: Performed By: #### C [place] ####[facility] Baqaywucbl3890 [place] [address]Dr. Yilan Otero BLAST % Normal [facility] Comment on above: Performed By: #### C C[place] ####[facility] Dlgeaofqci3897 [place] [address]Dr. Flaco Otero CORRECTED WBC Normal 4.0-11.0 [facility] Comment on above: Performed By: #### C C[place] ####[facility] Sobybaujpx9396 [place] [id number]. Yilan Otero EOS # 0.00 103/ul Normal 0.00-0.70 [facility] Comment on above: Performed By: #### C C[place] ####[facility] Zbcmmguyks3006 [place], [place] [address]Zp. Flaco Otero EOS% 0.0 % Critically low 0.9-7.0 [facility] Comment on above: Performed By: #### C C[place] ####[facility] Fhmerdnxoi8765 [place], [place] [address]Rw. Flaco Otero HCT 48.8 % Normal 42.0-54.0 [facility] Comment on above: Performed By: #### C C[place] ####[facility] Znezlnimra4447 [place], [place] [address]Et. Flaco Otero HGB 16.2 g/dl Normal 14.0-18.0 [facility] Comment on above: Performed By: #### C [place] ####[facility] Leqfbwasyy0415 [place] [id number]. Flaco Otero LYMPHM # 0.62 103/ul Critically low 1.20-3.80 [facility] Comment on above: Performed By: #### C C[place] ####[facility] Euishmcaqz1587 [place], [place] [address]Nx. Flaco Otero LYMPHM% 3.0 % Critically low 20.5-60.0 [facility] Comment on above: Performed By: #### C C[place] ####[facility] Pwgmmbdjpl9957 [place] [id number]. Flaco Otero MCH 29.5 pg Normal 25.9-34.0 [facility] Comment on above: Performed By: #### C C[place] ####[facility] Avxxtpvccz9080 [place], [place] [address]Ze. Flaco Otero MCHC 33.2 g/dl Normal 29.9-35.2 [facility] Comment on above: Performed By: #### C C[place] ####[facility] Umiztyrtso9856 [place], [place] [address]Ge. Flaco Otero MCV 88.7 fL Normal 80.0-94.0 [facility] Comment on above: Performed By: #### C C[place] ####[facility] Ophlmottrt2445 [place] [id number]. Flaco Otero METAMYELOCYTE # Normal [facility] Comment on above: Performed By: #### C C[place] ####[facility] Uxmqjaqdlb6642 [place] [id number]. Flaco Otero METAMYELOCYTE % Normal [facility] Comment on above: Performed By: #### C C[place] ####[facility] Xphiiqzxup5347 [place] [id number]. Flaco Otero MONOM# 2.28 103/ul Critically high 0.30-0.80 [facility] Comment on above: Performed By: #### C C[place] ####[facility] Ogcolwctow9558 [place] [address]Dr. Flaco Otero MONOM% 11.0 % Normal 1.7-12.0 [facility] Comment on above: Performed By: #### C C[place] ####[facility] Tuewklwpuj39[address] [place], [place] [address]Dr. Flaco Otero MPV 10.5 fL Normal 9.5-13.5 [facility] Comment on above: Performed By: #### Corina GUTHRIE ####[facility] Mfprczeyzw[address] [place], [place] [address]Dr. Flaco Otero MYELOCYTE # Normal [facility] Comment on above: Performed By: #### C C[place] ####[facility] Xkqshnfzdx2224 [place] [address]Dr. Flaco Otero MYELOCYTE % Normal [facility] Comment on above: Performed By: #### C C[place] ####[facility] Cnyuvvlgfe7829 [place] [address]Dr. Flaco Otero NRBC Normal [facility] Comment on above: Performed By: #### C C[place] ####[facility] Pygkzivjab1627 [place] [address]Dr. Flaco Otero PLT 317 103/ul Normal 150-450 [facility] Comment on above: Performed By: #### C C[place] ####[facility] Cvayjxoalu0612 [place], [place] [address]Bl. Flaco Otero RBC 5.50 106/ul Normal 4.70-6.10 [facility] Comment on above: Performed By: #### Corina GUTHRIE ####[facility] Dncswctcaj6786 [place] [id number]. Flaco Otero RDW 13.6 % Normal 11.0-15.0 [facility] Comment on above: Performed By: #### Corina GUTHRIE ####[facility] Yjwlkjdrnu2434 [place] [id number]. Flaco Otero SEG # 17.59 103/ul Critically high 1.40-6.50 [facility] Comment on above: Performed By: #### Corina GUTHRIE ####[facility] Hzxxkyuuoc0023 [place] [id number]. Flaco Otero SEG % 85.0 % Critically high 43.0-75.0 [facility] Comment on above: Performed By: #### Corina GUTHRIE ####[facility] Cvcavlodkv0859 [place] [id number]. Flaco Otero WBC 20.7 103/ul Critically high 4.0-11.0 [facility] Comment on above: Performed By: #### Corina GUTHRIE ####[facility] Xwyjrogvvi9760 [place] [id number]. Flaco Otero CULTURE BLOODon 07-28-2022 Microscopic examination of blood, culture Culture Observations: NO GROWTH AT 5 DAYS. Normal [facility] Comment on above: Performed By: #### B LDCX2 ####[facility] Kkkcwotaab3282 [place] [id number]. Flaco Otero Microscopic examination of blood, culture Culture Observations: NO GROWTH AT 5 DAYS. Normal [facility] Comment on above: Performed By: #### B LDCX1 ####[facility] Kbmtkvklhv[address] [place], [place] [address]Dr. Flaco Otero Covid-19 PCR (CVDTB)on 06-30 SARS-CoV-2 (COVID-19) RNA MARCO ANTONIO+probe Ql (Unsp spec) Not detected Normal NOT DETECTED [facility] Comment on above: Result Comment: When diagnostic [...] for this test is supported by the [employer] and [employer]'s declaration that [...] longer be used). Performed By: #### C VDTB ####[facility] Phjqgzvgkx01[address] [place], [place] [address]Dr. Flaco Otero INFLUENZA A AND B AGon 07-28 INFLUENZA A AG Negative Normal NEGATIVE SEE COMMENT [facility] Comment on above: Performed By: #### I NFLUAB ####[facility] Tghalbedrs10[address] [place], [place] [address]Dr. Flaco Otero INFLUENZA B AG Negative Normal NEGATIVE SEE COMMENT [facility] Comment on above: Performed By: #### I NFLUAB ####[facility] Yxkrdsfhji98[address] [place], [place] [address]Dr. Flaco Otero INTERNAL CONTROLS Within Normal Limits Normal Wi thin Normal Limits [facility] Comment on above: Performed By: #### I NFLUAB ####[facility] Bgblftunxo90[address] [place], [place] [address]Dr. Flaco Otero LACTATE/LACTIC ACIDon 2021 Lactate [Moles/Vol] 2.6 mmol/L Critically high 0.4-1.9 [facility] Comment on above: Performed By: #### L ACT ####[facility] Erjdlavmza[address] [place], [place] [address]Dr. Flaco Otero PROF 14(COMP METB)on 022 Albumin [Mass/Vol] 3.7 g/dL Normal 3.4-5.0 [facility] Comment on above: Performed By: #### C MP, BNP, HSTROPN ####[facility] Iouvrrjdvw2023 [place] [address]Dr. Flaco Otero Albumin/Globulin [Mass ratio] 0.8 {ratio} Normal [facility] Comment on above: Performed By: #### C MP, BNP, HSTROPN ####[facility] Rrvjdkuqfp0584 [place] [address]Dr. Flaco Otero ALP [Catalytic activity/Vol] 95 U/L Normal 46-116 [facility] Comment on above: Performed By: #### C MP, BNP, HSTROPN ####[facility] Cjeqmakwhs[address] [place], [place] [address]Dr. Flaco Otero ALT [Catalytic activity/Vol] 38 U/L Normal 16-63 [facility] Comment on above: Performed By: #### C MP, BNP, HSTROPN ####[facility] [address]lwyasaakl[address] [place], [place] [address]Dr. Flaco Otero Anion gap [Moles/Vol] 16.8 mmol/L Normal [facility] Comment on above: Performed By: #### C MP, BNP, HSTROPN ####[facility] [address] [place], [place] [address]Dr. Flaco Otero AST [Catalytic activity/Vol] 44 U/L Critically high 15-37 [facility] Comment on above: Performed By: #### C MP, BNP, HSTROPN ####[facility] [address] [place] [address]Dr. Flaco Otero Bilirubin [Mass/Vol] 2.7 mg/dL Critically high 0.2-1.0 [facility] Comment on above: Performed By: #### C MP, BNP, HSTROPN ####[facility] [address] [place], [place] [address]Dr. Flaco Otero Calcium [Mass/Vol] 9.8 mg/dL Normal 8.5-10.1 [facility] Comment on above: Performed By: #### C MP, BNP, HSTROPN ####[facility] [address] [place] [address]Dr. Flaco Otero Chloride [Moles/Vol] 102 mmol/L Normal 98-107 [facility] Comment on above: Performed By: #### C MP, BNP, HSTROPN ####[facility] [address] [place] [address]Dr. Flaco Otero CO2 [Moles/Vol] 23.0 mmol/L Normal 21.0-32.0 [facility] Comment on above: Performed By: #### C MP, BNP, HSTROPN ####[facility] [address] [place], [place] [address]Dr. Flaco Otero Creatinine [Mass/Vol] 2.22 mg/dL Critically high 0.70-1.30 [facility] Comment on above: Performed By: #### C MP, BNP, HSTROPN ####[facility] [address] [place], [place] [address]Dr. Flaco Otero EGFR-AF SAMOAN 36 mL/min/1.73m2 Critically low >=60 [facility] Comment on above: Performed By: #### C MP, BNP, HSTROPN ####[facility] [address] [place] [address]Dr. Flaco Otero EGFR-NON AF SAMOAN 29 mL/min/1.73m2 Critically low >=60 [facility] Comment on above: Performed By: #### C MP, BNP, HSTROPN ####[facility] [address]qms[address] [place] [address]Dr. Flaco Otero Globulin (S) [Mass/Vol] 4.7 g/dL Normal [facility] Comment on above: Performed By: #### C MP, BNP, HSTROPN ####[facility] [address] [place] [address]Dr. Flaco Otero Glucose [Mass/Vol] 145 mg/dL Critically high 74-106 [facility] Comment on above: Performed By: #### C MP, BNP, HSTROPN ####[facility] [address] [place] [address]Dr. Flaco Otero Potassium [Moles/Vol] 3.8 mmol/L Normal 3.5-5.1 [facility] Comment on above: Performed By: #### C MP, BNP, HSTROPN ####[facility] [address] [place] [address]Dr. Flaco Otero Protein [Mass/Vol] 8.4 g/dL Critically high 6.4-8.2 [facility] Comment on above: Performed By: #### C MP, BNP, HSTROPN ####[facility] [address] [place] [address]Dr. Flaco Otero Sodium [Moles/Vol] 138 mmol/L Normal 136-145 [facility] Comment on above: Performed By: #### C MP, BNP, HSTROPN ####[facility] [address]rue[address] [place] [address]Dr. Flaco Otero Urea nitrogen [Mass/Vol] 29.0 mg/dL Critically high 7.0-18.0 [facility] Comment on above: Performed By: #### C MP, BNP, HSTROPN ####[facility] [address] [place] [address]Dr. Flaco Otero Urea nitrogen/Creatinine [Mass ratio] 13.1 mg/mg Normal [facility] Comment on above: Performed By: #### C MP, BNP, HSTROPN ####[facility] Nobwbks[address]kp[address] [place] [address]Dr. Flaco Otero TROPONIN, HIGH SENSITIVITYon 07-28-2022 HSTROP 13.6 pg/mL Normal 4.0-76.1 [facility] Comment on above: Result Comment: CUT- OFF POINTS HAVE BEEN ESTABLISHED BASED ON THE FOURTH UNIVERSAL DEFINITIONS OF MYOCARDIALINFARCTION. THE UPPER REFERENCE LIMIT (URL) OF TROPONIN, DEFINED THE 99TH PERCENTILE OFcTnI DISTRIBUTION IN A REFERENCE POPULATION, HAS BEEN CONFIRMED THE DECISION THRESHOLDFOR HI DIAGNOSIS. Performed By: #### C MP, BNP, HSTROPN ####[facility] [address] [place] [id number]. Flaco Otero XR CHEST 1 Von 07-28-2022 XR CHEST 1 V Normal [facility] Covid-19 PCR ([facility])on 06-29 SARS-CoV-2 (COVID-19) RNA MARCO ANTONIO+probe Ql (Unsp spec) Not detected Normal NOT DETECTED [facility] Comment on above: Result Comment: This test is not yet approved or cleared by the [place] FDA. When there are no FDA-approved or cleared tests available, and other criteria are met, FDA can make tests available under an emergency access mechanism called an Emergency Use Authorization (EUA). The EUA for this test is supported by the [employer] of Health and Human Service's (HHS's) declaration [...] symptomsconsistent with SARS-CoV-2. Performed By: #### C VDTBH ####[facility] [address] [place] [address]Dr. Flaco Otero PROF CHEM 8 (BAS METB)on Anion gap [Moles/Vol] 11.2 mmol/L Normal [facility] Comment on above: Performed By: #### B MP ####[facility] [address] [place] [address]Dr. Flaco Otero Calcium [Mass/Vol] 8.7 mg/dL Normal 8.5-10.1 [facility] Comment on above: Performed By: #### B MP ####[facility] [address] [place] [address]Dr. Flaco Otero Chloride [Moles/Vol] 108 mmol/L Critically high 98-107 [facility] Comment on above: Performed By: #### B MP ####[facility] Z[address]mpv[address] [place] [id number]. Flaco Otero CO2 [Moles/Vol] 26.9 mmol/L Normal 21.0-32.0 [facility] Comment on above: Performed By: #### B MP ####[facility] Q[address]rb[address] [place] [id number]. Flaco Otero Creatinine [Mass/Vol] 1.77 mg/dL Critically high 0.70-1.30 [facility] Comment on above: Performed By: #### B MP ####[facility] [address] [place] [id number]. Flaco Branden EGFR-AF SAMOAN 46 mL/min/1.73m2 Critically low >=60 [facility] Comment on above: Performed By: #### B MP ####[facility] X[address] [place] [address]Dr. Purviedith Branden EGFR-NON AF SAMOAN 38 mL/min/1.73m2 Critically low >=60 [facility] Comment on above: Performed By: #### B MP ####[facility] [address] [place] [address]Dr. Flaco Branden Glucose [Mass/Vol] 89 mg/dL Normal 74-106 [facility] Comment on above: Performed By: #### B MP ####[facility] [address]fts[address] [place] [address]Dr. Flaco Otero Potassium [Moles/Vol] 4.1 mmol/L Normal 3.5-5.1 [facility] Comment on above: Performed By: #### B MP ####[facility] Znfkw[address]oyoe[address] [place] [id number]. Flaco Otero Sodium [Moles/Vol] 142 mmol/L Normal 136-145 [facility] Comment on above: Performed By: #### B MP ####[facility] [address] [place] [id number]. Flaco Otero Urea nitrogen [Mass/Vol] 15.0 mg/dL Normal 7.0-18.0 [facility] Comment on above: Performed By: #### B MP ####[facility] [address] [place], [place] [address]Tg. Purviedith Branden Urea nitrogen/Creatinine [Mass ratio] 8.5 mg/mg Normal [facility] Comment on above: Performed By: #### B MP ####[facility] [address] [place], [place] [address]Ez. Flaco Otero XR FOOT RT MIN 3 VIEWSon XR FOOT RT MIN 3 VIEWS Normal [facility] Vital Signs Date Time Vital Sign Value Performing Clinician Faci lity 09-18-2023 13:33-0500 Body height 170.2 cm Alyssa Camacho MD Work Phone: [facility] 09-18-2023 13:33-0500 Body mass index (BMI) [Ratio] 23.49 kg/m2 Alyssa Camacho MD Work Phone: [facility] 09-18-2023 13:33-0500 Body weight 68.04 kg Alyssa Camacho MD Work Phone: [facility] 09-18-2023 13:33-0500 Diastolic blood pressure 79 mm[Hg] Alyssa Camacho MD Work Phone: [facility] 09-18-2023 13:33-0500 Heart rate 61 /min Alyssa Camacho MD Work Phone: [facility] 09-18-2023 13:33-0500 Systolic blood pressure 121 mm[Hg] Alyssa Camacho MD Work Phone: [facility] 05-12-2023 13:51-0400 Blood Pressure Location Baljit DOSHI [facility] 05-12-2023 13:51-0400 Diastolic blood pressure 74 mm[Hg] Baljit DOSHI [facility] 05-12-2023 13:51-0400 Heart rate 70 /min Baljit DOSHI [facility] 05-12-2023 13:51-0400 Respiratory rate 16 /min Baljit DOSHI [facility] 05-12-2023 13:51-0402 Systolic blood pressure 120 mm[Hg] Baljit DOSHI [facility] Encounters Encounter Date Encounter Type Care Provider Facility Start: 12-08-2023 End: 12-08-2023 ambulatory [facility] Start: 09-18-2023 End: 09-18-2023 Office outpatient visit [...] medical condition Start: 09-14-2023 End: 09-14-2023 ambulatory [facility] Start: 09-10-2023 End: 09-10-2023 ambulatory [facility] Start: 07-21-2023 End: 07-21-2023 ambulatory [facility] Start: 05-27-2023 End: 05-28-2023 ambulatory Baljit DOSHI Facility:CD:[id number] Start: 05-12-2023 End: 05-13-2023 ambulatory Baljit DOSHI Facility: [facility] Start: 05-12-2023 End: 05-12-2023 Patient encounter procedure Baljit DOSHI General Surgery Patrical/Jasmyne Gauthier Start: 04-01-2023 End: 04-01-2023 ambulatory [facility] Start: 02-09-2023 End: 02-10-2023 Evaluation and management of inpatient DR LIBRADO MIKE . Facility: Start: 01-20-2023 End: 01-21-[address] LIBRADO MIKE . Facility:[facility] Start: 01-06-2023 End: 01-07-[address] LIBRADO MIKE . Facility:[facility] Start: 12-16-2022 End: 12-17-[address] LIBRADO MIKE . Facility:[facility] Start: 11-17-2022 End: 11-18-2022 Evaluation and management of inpatient DR LIBRAOD MIKE . Facility:[facility] Start: 11-06-2022 End: 11-07-2022 ambulatory MANOLO BOLAND Facility:[facility]1 Start: 10-16-2022 End: 10-17-2022 ambulatory MANOLO BOLAND Facility:[facility]1 Start: 09-25-2022 Encounter for preprocedural laboratory examination [facility] Solange [facility] Start: 09-25-2022 End: 09-25-[address] FABIAN KENNEDY Facility:[facility]1 Start: 09-22-2022 End: 09-23-2022 ambulatory [facility] Facility:H1 Start: 09-22-2022 End: 09-23-2022 Encounter for preprocedural laboratory examination [facility] Solange [facility] Facility:H1 Start: 09-15-2022 Encounter for preprocedural cardiovascular examination [facility] Start: 09-11-2022 End: 09-12-[address] [facility] Solange [facility] Facility:H1 Start: 08-15-2022 End: 08-15-2022 ambulatory JOVANI UMANZOR . Facility:H1 Start: 07-30-2022 End: 08-02-2022 Evaluation and management of inpatient DR LIBRADO MIKE . Facility:[facility]1 Start: 07-24-2022 End: 07-25-[address] [facility] Solange [facility] Facility:H1 Start: 07-17-2022 Encounter for preprocedural cardiovascular examination [facility] Solange [facility] Start: 07-17-2022 Encounter for preprocedural laboratory examination [facility] Start: 07-15-2022 End: 07-16-2022 ambulatory [facility] Facility:H1 Start: 07-15-2022 End: 07-16-2022 Encounter for preprocedural cardiovascular examination KIMBERLI Narvaez [facility] Facility:H1 Start: 06-18-2022 End: 06-19-[address] LIBRADO MIKE . Facility:H1 Procedures Date Procedure Procedure Detail Performing Clinician Start: 09-18-2023 Adult depression scr eening assessment Alyssa Camacho MD Work Phone: Start: 09-19-2020 Excisional biopsy Karlos DOSHI Comment on above: mid back Start: 06-20-2020 Laparoscopic cholecystectomy Baljit HAIRPinky Start: 09-28-2019 Brachytherapy of [place] state using fluoroscopic guidance Baljit HAIRPinky Start: 07-30-2015 Excision of lumbar intervertebral disc Baljit HAIRPinky Comment on above: L3-L5 Start: 08-14-2014 Colonoscopy Baljit NI LL Start: 02-04-2008 Colonoscopy Baljit NI LL Bone graft Baljit HAIRPinky Comment on above: right great toe Skin graft material (substance) Baljit DOSHI Comment on above: right great toe Vasectomy Baljit HAIRPinky Plan of Treatment Date Care Activity Detail Author Start: 09-18-2024 Adult BMI Screening Adult BMI Screening [facility] Start: 09-18-2024 Depression Screening Depression Screening [facility] Start: 09-18-2024 Tobacco Screening Tobacco Screening [facility] Start: 02-12-2024 End: 02-12-2024 Patient encounter procedure 02/12/2024 2:00 PM EDT Office Visit [facility] [address] [facility] [place] [address] Alyssa Camacho MD [address] [place] [address], [address] [address] [facility] Start: 05-29-2023 COVID-19 Vaccine ( season) COVID-19 Vaccine () [facility] Start: 05-29-2023 Influenza vaccination Influenza Vaccine [facility] Start: 02-08-2016 Fall Risk Screening Fall Risk Screening [facility] Start: 1970 Administration of varicella zoster vaccine Zoster (Shingles) Vaccine (1 of 2) [facility] Start: 1970 DTaP,Tdap and Td Vaccines (1 - Tdap) DTaP,Tdap and Td Vaccines (1 - Tdap) [facility] Start: 1950 Medicare Annual Wellness Visit Medicare Annual Wellness Visit [facility] Immunizations Immunization Date Immunization Notes Care Provider Fa cili 09-15-2021 Influenza Vaccine, Quadrivalent, Adjuvanted Alyssa Camacho MD Work Phone: [facility] 09-15-2021 influenza virus vaccine, unspecified formulation Alyssa Camacho MD Work Phone: [facility] 07-22-2021 SARS-CoV-2 (COVID-19 ) mRNA-1273 vaccine Baljit DOSHI [facility] Comment on above: Result Comment: 2022: [id number] 12-19-2020 SARS-CoV-2 (COVID-19 ) mRNA-1273 vaccine Baljit DOSHI [facility] 11-22-2020 SARS-CoV-2 (COVID-19 ) mRNA-1273 vaccine Baljit DOSHI [facility] 06-05-2020 influenza, seasonal, injectable Alyssa Camacho MD Work Phone: [facility] 05-28-2020 pneumococcal conjuga te vaccine, 13 valent Alyssa Camacho MD Work Phone: [facility] Payers Date Payer Category Payer Medicare [employer] MEDICARE A ETNA MEDICARE PLAN (HMO) [id number] 2021-Present [phone] [address] [place] [address] [id number] 1958 Medicare [id number] 1950 Unknown [id number] 1951 Unknown [id number] [id number] 1951 Unknown [id number] [id number] 1951 Unknown [id number] 2.16.840.1.430893.3.579.2.593 1951 Unknown [id number] 2.16.840.1.559228.3.579.2.593 1951 Unknown [id number] 2.16.840.1.553110.3.579.2.593 1951 Unknown [id number] 2.16.840.1.078842.3.579.2.593 1951 Unknown [id number] 2.16.840.1.984357.3.579.2.593 1951 Unknown [id number] 2.16.840.1.449164.3.579.2.593 1951 Unknown [id number] 2.16.840.1.681265.3.579.2.593 1951 Unknown [id number] 2.16.840.1.826424.3.579.2.593 1951 Unknown [id number] 2.16.840.1.306383.3.579.2.593 1951 Unknown [id number] 2.16.840.1.645972.3.579.2.593 1951 Unknown [id number] 2.16.840.1.801821.3.579.2.593 1951 Unknown [id number] 2.16.840.1.901458.3.579.2.593 1951 Unknown [id number] [id number] 1950 Unknown [id number] [id number] Social History Date Type Detail Facility Start: 05-12-2023 Tobacco smoking status Ex-smoker (fi nding) [facility] Tobacco smoking status Never [facility] Start: 07-03-2020 End: 11-08-2020 [facility] Start: 12-17-2022 Tobacco smoking stat [facility] Never smoked tobacco [facility] Start: 12-17-2022 Tobacco use and exposure Smokeless tobacco non-user [facility] Start: 09-27-2023 Alcohol intake Ex-drinker (finding) [facility] Start: 07-03-2020 End: 11-08-2020 History of Social function [facility] How often to you hav e a drink containing alcohol? Never [facility] Start: 1950 Sex Assigned At Not on file P [facility] Functional Status Date Assessment Result Facility 05-12-2023 Functional Status N/A [facility] Clinical Notes 04-01-2023 to 12-08-2023 Alyssa Camacho MD - 09/18/2023 1:30 PM EST Note Date & Type Note Facility 12-08-2023 Note [facility] Reason for visit: Bradycardia/ Syncope, s/p loop 12/07/22 Patient here for 3 mo follow up. Loop recorder was placed in Aug 2023 for syncope. He was seen in [facility] ED in Sep 2023 for generalized weakness, SOB, and chest tightness. Still has some cough, wheezing, and orthopnea. He does not see pulmonology. Potassium was slightly elevated in the ED so supplement was stopped. He is not taking metoprolol. He has some ana events in afternoon but sleeps usually in the aftyernoon and goes into bed late at 5am and sleeps till 10am. 09/14/23: [employer] Patient is here for follow-up s/p loop [...] bradycardia and CKD was previously admitted at [facility] for sinus bradycardia. At that time his [...] was seen. this ruled out chronotropic incompetence. Labs 02/10/2023: Hemoglobin 13.2, sodium 143, K2.8, chloride 110, BUN 13, creatinine 1.35, GFR 52 Stress test PMH: Past Medical History: Diagnosis Date Bradycardia Chronic kidney disease Dementia (CMS/HCC) Hypokalemia Hyponatremia Parkinson disease PSH: Past Surgical History: Procedure Laterality Date BACK SURGERY CHOLECYSTECTOMY PROSTATE SURGERY TOE SURGERY SH: Social Determinants of Health Tobacco Use: Medium Risk (09/14/2023) Patient History Smoking Tobacco Use: Former Smokeless Tobacco Use: Never Passive Exposure: Not on file Alcohol Use: Not on file Financial Resource Strain: Not on file Food Insecurity: Not on file Transportation Needs: Not on file Physical Activity: Not on file Stress: Not on file Social Connections: Not on file Intimate Partner Violence: Unknown (11/19/2023) [place] Safety & Environment Fear of Current or Ex-Partner: Not on file Emotionally Abused: Not on file Physically Abused: Not on file Sexually Abused: Not on file Physically or Sexually Abused: Not on file Depression: Not on file Housing Stability: Not on file Utilities: Not on file Allergies: Allergies Allergen Reactions Penicillins Weight: 69.4kg Visit Vitals BP 137/89 (BP Location: Right arm, Patient Position: Sitting) Pulse 72 Ht 1.778 m (5' 10 ) Wt 69.4 kg (153 lb) SpO2 94% BMI 21.95 kg/m??? Smoking Status Former BSA 1.85 m??? Meds: Current Outpatient Medications on File Prior to Visit Medication Sig Dispense Refill amLODIPine (Norvasc) 10 mg tablet Take 1 tablet (10 mg) by mouth once daily as directed. 90 tablet 3 aspirin 81 mg EC tablet Take 81 mg by mouth in the morning. carbidopa-levodopa (Sinemet CR) 25-100 mg ER tablet Take 1 tablet by mouth 3 times a day. carbidopa-levodopa (Sinemet) 25-100 mg tablet TAKE 1 TABLET BY MOUTH 3 TIMES DAILY AT 6 AM, 12 PM, AND 6 PM BEFORE MEALS hydrALAZINE (Apresoline) 10 mg tablet Take 1 tablet (10 mg) by mouth in the morning, at noon, and at bedtime. 270 tablet 3 donepezil (Aricept) 10 mg tabl (more content not included)... [facility] 09-18-2023 Note Patient stopped into office for [...] loop insertion site to call office immediately [facility] 09-18-2023 History of Present illness Narrative Images from the original note were not included. [address] [place] [address] Patient: Efraín Johnson Date of : 1950 [...] Condition: The patient was initially admitted at [facility] 2021 with complaints of subacute left lower extremity weakness and gait instability. Subsequently was seen by the tele Stroke Service and had a stroke workup which was unremarkable. Was seen subsequently seen by the tele neurology service, and then had MRI of the entire spine which showed multilevel degenerative changes, however nothing that required urgent neurosurgical intervention. Was then transferred to [facility] for further evaluation and management. Was admitted under the primary neurology service([place]), where he was identified to have signs of parkinsonism, involuntary lower facial twitching consistent with extrapyramidal symptoms(tardive dyskinesias?). On initial evaluation at [facility], was not identified to have any [...] to display PTSD: No data to display [place]: No data to display NATTY-10: No data [...] Mild dementia with agitation, unspecified dementia type ([facility]) Gait instability Urinary retention Spondylosis of cervical [...] sundowning, anxiety, who was initially admitted at [facility] in October 2021 with complaints of subacute left lower extremity weakness and gait instability. Subsequently was seen by the tele Stroke Service and had a stroke workup which was unremarkable. Was seen subsequently seen by the tele neurology service, and then had MRI of the entire spine which showed multilevel degenerative changes, however nothing that required urgent neurosurgical intervention. Was then transferred to [facility] for further evaluation and management. Was admitted under the primary neurology service([place]), where he was identified to have signs of extrapyramidal symptoms(parkinsonism with mild bradykinesia L>R, involuntary lower facial twitching consistent with tardive dyskinesias). On initial evaluation at [facility], was not identified to have any [...] delayed recall, poor concentration , previously MOCA --> exam has been stable/unchanged since the last [...] 6 months. Alyssa Camacho MD Vascular Neurologist [facility] # [phone] I have personally participated in the care of this patient. I have reviewed all pertinent clinical information, including history, physical exam, investigation results and plan. 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 Important Notice: This note was created with the assistance of a speech recognition program. While intending to generate a timely document that accurately reflects the content of the encounter, no guarantee can be provided that every grammatical or spelling mistake has been or will be identified or corrected. Thank you for your understanding. documented in this encounter [facility] [address] [facility] 09-14-2023 Note [facility] Consult Note Reason [...] bradycardia and CKD was previously admitted at [facility] for sinus bradycardia. At that time his [...] the morning. metoprolol (more content not included)... [facility] 09-14-2023 Note Patient here for wou nd check 4 days s/p loop monitor insertion. [facility] 09-10-2023 Note LOOP IMPLANT PROCEDU RE NOTE DATE OF PROCEDURE: 09/10/23 PERFORMING PHYSICIAN: Dr. Missael Chaparro PROJECT HIRE: MERARY INDICATIONS FOR PROCEDURE: 1. Syncope CONSENT: [...] the sternum on the left using the [employer] tool. The loop recorder was then injected [...] the incision. Missael Chaparro MD Cardiac Electrophysiology. [facility] 09-10-2023 Note Patient: Efraín correa Procedure Information Date/Time: 09/10/23 1200 Procedure: Loop insertion Location: [facility] / [facility] (Cath) Providers: Missael Chaparro MD [...] Plan discussed with attending. Additional Equipment Requests [facility] 07-21-2023 Note [place] Electrophysiology Consult Note Reason for visit: Bradycardia/ Syncope HPI: Efraín Johnson is a 73 y.o. with a past medical history of hypertension bradycardia and CKD was previously admitted at [facility] for sinus bradycardia. At that time his [...] Effort: unlabored Chest (more content not included)... [facility] 05-12-2023 Note Chief Complaint consultation for diverticulitis HPI Staff 73 year old male presents on consultation from Dr. Mike for diverticulitis. Presented to [facility] 04/04 with complaint of rectal bleeding. [...] Lumbar discectomy ( (more content not included)... [facility] Comment on above: Result Comment: Elec tronically Signed By: GLENDA ARVIZU, Balijt Estrada\Date and Time Signed: 05/12/23 17:27 EDT [...] for AV block - ECG today shows [facility] 04-01-2023 Note -being seen by neurology [facility] 04-01-2023 Note [place] Electrophysiology Consult Note Reason for visit: [facility] follow-up, bradycardia, holter monitor , new to EP HPI: Efraín Johnson is a 73 y.o. year old with past medical history of Hypertension, bradycardia, CKD wth baseline appearing around Cr1.5, anemia. Patient was seen in the [facility] for her sinus bradycardia. He was having heart rate ranging in the 50s but was asymptomatic and was discharged with event monitor. He was also dealing with an SHERYL and was found to be dehydrated, hypokalemic, hyponatremic. He was seen by neurology for lower extremity weakness who recommended MRI of C-spine, no concern for stroke. He was seen in [facility] 11/11/2022 for weakness and difficulty getting [...] edema, no p (more content not included)... [facility] 04-01-2023 Note Patient here for [facility] follow up for bradycardia. He was seen as inpatient consult on 02/[address] Argueta. He wore Holter monitor upon discharge. Metoprolol was stopped, and then resumed after Dr. Mike got Holter results. Review of Systems Constitutional: Positive for malaise/fatigue. Cardiovascular: Positive for leg swelling (intermittent). Musculoskeletal: Positive for muscle weakness. All other systems reviewed and are negative. [facility] Evaluation + Plan note No data available for this section General Surgery [facility] Evaluation note Diagnosis Parkinsonism, unspecified Parkinsonism type- Primary Tardive dyskinesia Subacute dyskinesia due to drugs Mild dementia with agitation, unspecified dementia type ([facility]) Gait instability Abnormality of gait Urinary retention Unspecified retention of urine Spondylosis of cervical spine Sundowning Chronic bilateral low back pain, unspecified whether sciatica present Insomnia due to medical condition Organic insomnia, unspecified [facility] No data available for this section General Surgery [facility] InstructionsNot on filedocumented in this encounter [facility] No data available for this section General Surgery [facility] Summary Purpose Family History No Family History Records FoundNo Family History Records FoundNo Family History Records Found Advance Directives No Advanced Directives Records FoundDocuments on File Type Date Recorded 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 Living Will 09/18/2023 1:20 PM POA/Livin g Will 12/26/22 Additional Source Comments (unrecognized sect ion and content) No Status Records FoundNo Status Records FoundNo Status Records Found INFORMATION SOURCE (unrecogn ized section and content) DATE CREATED AUTHOR 02/11/2023 [facility] DATE CREATED AUTHOR AUTHOR'S ORGANIZ ATION [facility]/02/2023 [facility] DATE CREATED AUTHOR AUTHOR'S ORGANIZ ATION 12/10/2023 [facility] Patient Care team informatio n (unrecognized section and content) 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 [employer] provides no warranty or guarantee of the accuracy or completeness of information in this document.
[2024-02-12 09:04] LABS: Basophils Absolute Auto 0.1 10^3/uL (0.0-0.1); Basophils Percent Auto 0.8 % (0.2-2.0); Eosinophils Absolute Auto 0.1 10^3/uL (0.0-0.7); Eosinophils Percent Auto 1.2 % (0.9-7.0); Hematocrit 43.4 % (42.0-54.0); Hemoglobin 13.9 g/dL (14.0-18.0); Immature Granulocytes Abs Auto 0.02 10^3/uL (0.00-0.03); Immature Granulocytes Pct Auto 0.3 % (0.0-0.5); Lymphocytes Absolute Auto 1.8 10^3/uL (1.2-3.8); Lymphocytes Percent Auto 22.4 % (20.5-60.0); Mean Corpuscular Hemoglobin 27.2 pg (25.9-34.0); Mean Corpuscular Volume 84.9 fL (80.0-94.0); Mean Platelet Volume 10.1 fL (9.5-13.5); Monocytes Absolute Auto 0.8 10^3/uL (0.3-0.8); Monocytes Percent Auto 9.9 % (1.7-12.0); Neutrophils Absolute Auto 5.1 10^3/uL (1.4-6.5); Neutrophils Percent Auto 65.4 % (43.0-75.0); Platelet Count 350 10^3/uL (150-450); Red Blood Count 5.11 10^6/uL (4.70-6.10); Red Cell Distribution Width 13.5 % (11.0-15.0); White Blood Count 7.8 10^3/uL (4.0-11.0)
[2024-02-12 09:51] LABS: Anion Gap 14.7; BUN Creatinine Ratio 6.8; Calcium 9.3 mg/dL (8.5-10.1); Carbon Dioxide 24.5 mmol/L (21.0-32.0); Chloride 104 mmol/L (98-107); Estimated GFR (African America 46 (>=60); Estimated GFR (Non-African Ame 38 (>=60); Glucose 89 mg/dL (74-106); Potassium 3.2 mmol/L (3.5-5.1); Sodium 140 mmol/L (136-145)
[2024-02-12 13:26] LABS: Bilirubin Urine NEGATIVE (NEGATIVE); Blood Urine NEGATIVE (NEGATIVE); Clarity Urine CLEAR (CLEAR); Color Urine LT. YELLOW (YELLOW); Glucose Urine UA NEGATIVE (NEGATIVE); Ketones Urine NEGATIVE (NEGATIVE); Leukocyte Esterase Urine NEGATIVE (NEGATIVE); Nitrite Urine NEGATIVE (NEGATIVE); Protein Urine NEGATIVE (NEG/TRACE); Specific Gravity Urine <=1.005 (1.005-1.025); Urobilinogen Urine 0.2 EU/dL (0.2-1.0)
[2024-02-12 13:35] LABS: WBC Urine 0-2 #/HPF (NONE SEEN)
[2024-02-12 13:36] LABS: Bacteria Urine NONE SEEN #/HPF (NONE SEEN); Cast Seen? NONE SEEN #/LPF (NONE SEEN); Crystals Seen? None Seen #/HPF (None Seen); Mucus Urine NONE SEEN (NONE SEEN); RBC Urine 0-2 #/HPF (0-2); Squamous Epithelial Cell Urine RARE #/LPF (NONE/RARE)
[2024-02-12 13:45] LABS: Creatinine Urine Random 75.59 mg/dL (20.00-300.00); Microalbum Creatinine Ratio Ur 17.1 mg/g (0.0-29.9); Microalbumin Urine Random <1.3 mg/dL (<=30.0)
[2024-02-13 15:08] LABS: PTH, Intact 95 pg/mL (15-65)
== END 2024-02-12 08:39 | disposition home or self-care (01) ==
LOC: LAB 08:38
PROVIDERS: PCP Family Medicine
DX: N18.30 Chronic kidney disease, stage 3 unspecified (principal)
CPT/HCPCS: 36415; 80048; 81001; 82043; 82570; 83970; 85025

== ENCOUNTER 2024-06-11 09:28 | Outpatient (OUT) | payer MEDICARE, SELFPAY ==
--- OUTSIDE RECORDS SUMMARY | 2024-06-11 09:31 | XMS_ITS | CCD ---
Author Organization [facility] Care Team Providers Care Customer Consultant Name Role Phone DR FABIAN KENNEDY V [...] HOY ., DR PAVON Primary Care Unavailable ALICJA ., DR PAVON Primary Care Unavailable MARCIA, DR FABIAN Guadarrama Consulting Unavailable KRYSTIAN, MANOLO Admitting Unavailable KRYSTIAN, MANOLO Attending Unavailable KRYSTIAN, MANOLO Consulting Unavailable KRYSTIAN, MANOLO Admitting Unavailable KRYSTIAN, MANOLO Attending Unavailable HOY ., DR PAVON Primary Care Unavailable JOSEPH, DR VIC Dennison Consulting Unavailable KRYSTIAN, MANOLO Consulting Unavailable KRYSTIAN, MANOLO Attending Unavailable HOY ., DR PAVON Primary Care Unavailable WEST, DR FABIAN Guadarrama Consulting Unavailable MANOLO BOLAND Admitting Unavailable MANOLO BOLAND Consulting Unavailable ALICJA ., DR PAVON Primary Care Unavailable WEST, DR FABIAN Guadarrama Consulting Unavailable KIMBERLI RAIN Admitting Unavailable HIGHLQUINTON, KIMBERLI Narvaez Attending Unavailable KIMBERLI RAIN Consulting Unavailable ALICJA ., DR PAVON Primary Care Unavailable HOY ., DR PAVON Admitting Unavailable HOConsuelo ., DR PAVON Consulting Unavailable HOConsuelo ., DR PAVON Attending Unavailable AHDOOT, CHINMAY Consulting Unavailable JAMES, VINAYA Consulting Unavailable YEH, MICHELINE Consulting Unavailable FALVO, MAYUR Consulting Unavailable ROCK, BRIEN Consulting Unavailable READER, LIBRADO Consulting Unavailable SISTER, OPAL Consulting Unavailable YOBANY, SABCASSANDRAA REGALADO Consulting Unavailable QUEENIE ., DEBBIE Consulting Unavailable JUNE ., CARIDAD Consulting Unavailable HOY ., DR PAVON Primary Care Unavailable HOY ., DR PAVON Admitting Unavailable HOY ., DR PAVON Consulting Unavailable ALICJA ., DR PAVON Attending Unavailable WEST, DR FABIAN Guadarrama Consulting Unavailable RENA ., GIOVANNI Consulting Unavailable MARKER, ASH Consulting Unavailable JOHNSON, LOURDES Consulting Unavailable KLFABIAN THOMAS Consulting Unavailable ANGELA POWERS Consulting Unavailable MELIZA, LIBRADO Consulting Unavailable SISTER, OPAL Consulting Unavailable BALJIT CHEN Consulting Unavailable ZONIA LAWRENCE Consulting Unavailable ALICJA ., DR PAVON Primary Care Unavailable HOY ., DR PAVON Admitting Unavailable HOY ., DR PAVON Attending Unavailable HOY ., DR PAVON Consulting Unavailable ZIEBER, DR VIC Dennison Consulting Unavailable NADERER, DR ZACH Valero Consulting Unavailable RENA ., GIOVANNI Consulting Unavailable MOUKAFESTUSEL, DR ASHFORD Consulting Unavailable NOÉ ., JOVANI Consulting Unavailable GRACIE POWERS Consulting Unavailable RHYS PARRA Consulting Unavailable Librado Mike Primary Care Physician Baljit DOSHI Attending Unavailable Baljit DOSHI Attending Unavailable Librado Mike MD Primary Care Provider [phone] ANN, MEL Attending Unavailable LIBRADO MIKE Referring Unavailable LIBRADO MIKE Primary Care Unavailable ANN, MEL Attending Unavailable LIBRADO MIKE Referring Unavailable LIBRADO MIKE Primary Care Unavailable ROBIN CAMARENA Attending Unavailable MISSAEL CHAPARRO Admitting Unavailable MISSAEL CHAPARRO Attending Unavailable MISSAEL CHAPARRO Attending Unavailable ZEV VILLEGAS Attending Unavailable REJI, SPENCER Referring Unavailable REJI, SPENCER Referring Unavailable MISSAEL CHAPARRO Referring Unavailable REJI, SPENCER Referring Unavailable REJI, SPENCER Referring Unavailable REJI, SPENCER Referring Unavailable REJI, SPENCER Referring Unavailable MISSAEL CHAPARRO Attending Unavailable Allergies Allergy Classification Reported Allergen(s) Allergy Type Date of Onset Reaction(s) Facility (3 sources) Penicillins; Translations: [PENICILLINS] Drug allergy (disorder) [facility] Repository (2 sources) Penicillin; Translations: [penicillin] Drug Allergy Weal (disorder) General Surgery [place] (1 source) Penicillins Propensity to adverse reactions to drug 0 [employer] Medications Current Medications Medication Drug Class(es) Dates Sig (Normalized) Sig (Original) amLODIPine 10 mg oral tablet (1 source) Dihydropyridine Calcium Channel Tahmina Start: 07-21-2023 End: 07-20-2024 amLODIPine (NORVASC) 10 [...] Start: 08-24-2023 take 1 tablet by elba three times daily after mealtime carbidopa-levodopa (SINEMET) [...] 25 mg oral tablet (1 source) beta-Adrenergic Tahmina take 1 tablet by mouth in the [...] abdominal pain; Translations: [UNSPECIFIED ABDOMINAL PAIN] Onset: 02-10-2023 Episodic Acquired foot deformities (5 sources) Hallux rigidus, right foot; Translations: [HALLUX RIGIDUS RIGHT FOOT] Onset: 09-25-2022 Chronic Acquired foot deformities (1 source) Hallux rigidus, left foot; Translations: [HALLUX RIGIDUS LEFT FOOT] Onset: 09-01-2022 Chronic Acquired foot deformities (1 source) Foot-drop 05-28-2020 Episodic Acute and unspecified renal failure (1 source) Acute kidney failure, unspecified; Translations: [ACUTE KIDNEY FAILURE UNSPECIFIED] Onset: 02-10-2023 Episodic Biliary tract disease (2 sources) Biliary calculus; Translations: [Chronic cholecystitis with calculus] 05-30-2020 Episodic Cancer of prostate (3 sources) Adenocarcinoma of prostate; Translations: [Malignant tumor of prostate] Onset: 07-03-2020 05-28-2020 Chronic Cancer of prostate (1 source) Personal history of malignant neoplasm of prostate; Translations: [PERSONAL HX MALIG NEOPLASM PROSTATE] Onset: 02-10-2023 Episodic Cardiac dysrhythmias (6 sources) Bradycardia, unspecified; Translations: [Bradycardia] Onset: 02-10-2023 04-22-2023 Episodic Chronic kidney disease (2 sources) Chronic kidney disease, stage 2 (mild); Translations: [Chronic kidney disease] Onset: 02-10-2023 04-22-2023 Chronic Chronic obstructive pulmonary disease and bronchiectasis (2 sources) Chronic obstructive pulmonary disease with (acute) exacerbation; Translations: [Chronic obstructive lung disease] Onset: 09-01-2022 04-22-2023 Chronic Chronic ulcer of skin (6 sources) Pressure ulcer of right heel, stage 1; Translations: [Chronic ulcer of foot] Onset: 12-17-2022 Chronic Deficiency and other anemia (1 source) Iron deficiency anemia, unspecified; Translations: [IRON DEFICIENCY ANEMIA UNSPECIFIED] Onset: 02-10-2023 Episodic Delirium, dementia, and amnestic and other cognitive disorders (7 sources) Dementia in other diseases classified elsewhere without behavioral disturbance; Translations: [Dementia] Onset: 12-17-2022 04-22-2023 Chronic Diseases of white blood cells (1 source) Elevated white blood cell count, unspecified; Translations: [ELEVATED WHITE BLOOD CELL COUNT UNS] Onset: 09-01-2022 Chronic Disorders of lipid metabolism (5 sources) Pure hypercholesterolemia , unspecified; Translations: [Hyperlipidemia, unspecified] Onset: 10-08-2022 05-28-2020 Chronic Esophageal disorders (2 sources) Gastro-esophageal reflux disease without esophagitis; Translations: [Gastroesophageal reflux disease] Onset: 09-01-2022 04-22-2023 Chronic Essential hypertension (4 sources) Essential (primary) hypertension; Translations: [Hypertensive disorder] Onset: 02-10-2023 05-28-2020 Chronic Fluid and electrolyte disorders (6 sources) Hypokalemia; Translations: [Hypo-osmolality and hyponatremia] Onset: 02-09-2023 Episodic Gastrointestinal hemorrhage (2 sources) Hemorrhage of rectum and anus; Translations: [Hemorrhage of anus and rectum] Onset: 05-12-2023 Episodic Gout and other crystal arthropathies (4 sources) Gout, unspecified; Translations: [Idiopathic gout, left ankle and foot] Onset: 09-01-2022 04-22-2023 Chronic Hypertension with complications and secondary hypertension (3 sources) Hypertensive chronic kidney disease with stage 1 through stage 4 chronic kidney disease, or unspecified chronic kidney disease; Translations: [Hypertensive heart disease without heart failure] Onset: 12-16-2022 Chronic Malaise and fatigue (2 sources) Weakness; Translations: [WEAKNESS] Onset: 11-17-2022 Episodic Nutritional deficiencies (1 source) Unspecified severe protein-calorie malnutrition; Translations: [UNS SEVERE PROTEIN-CALORIE MLNUTRIT] Onset: 09-01-2022 Chronic Osteoarthritis (1 source) Unspecified osteoarthritis, unspecified site; Translations: [UNSPECIFIED OSTEOARTHRITIS UNS SITE] Onset: 02-10-2023 Chronic Other aftercare (1 source) Other long-term (current) drug therapy; Translations: [OTH 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 THERAPY] Onset: 02-10-2023 Episodic Other aftercare (1 source) 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; Translations: [SALES AGENT FIRE INSURANCE CURRENT USE OF ASPIRIN] Onset: 02-10-2023 Episodic Other connective tissue disease (5 sources) Pain in right foot; Translations: [PAIN IN RIGHT FOOT] Onset: 12-16-2022 Episodic Other connective tissue disease (1 source) Muscle weakness (generalized); Translations: [MUSCLE WEAKNESS GENERALIZED] Onset: 12-16-2022 Episodic Other hereditary and degenerative nervous system conditions (3 sources) Tardive dyskinesia; Translations: [Drug induced subacute dyskinesia] Onset: 12-17-2022 04-22-2023 Episodic Other injuries and conditions due to external causes (1 source) History of falling; Translations: [HISTORY OF FALLING] Onset: 12-16-2022 Episodic Other nervous system disorders (1 source) Metabolic encephalopathy; Translations: [METABOLIC ENCEPHALOPATHY] Onset: 09-01-2022 Chronic Other nervous system disorders (1 source) Metabolic encephalopathy 04-22-2023 Chronic Other nervous system disorders (1 source) Other chronic pain; Translations: [Other chronic pain] Onset: 02-12-2024 Chronic Other nervous system disorders (2 sources) Abnormal gait; Translations: [Unsteadiness on feet] Onset: 12-17-2022 09-18-2023 Episodic Other nutritional; endocrine; and metabolic disorders (1 source) Hyperuricemia 05-28-2020 Episodic Other nutritional; endocrine; and metabolic disorders (1 source) Overweight 05-12-2023 Episodic Other nutritional; endocrine; and metabolic disorders (1 source) Overweight in adulthood with body mass index of 25 or more but less than 30 05-12-2023 Episodic Other screening for suspected conditions (not mental disorders or infectious disease) (4 sources) Elevated C-reactive protein (CRP); Translations: [Imaging of abdomen abnormal] Onset: 09-01-2022 Episodic Other skin disorders (1 source) Epidermoid cyst of skin of back 08-07-2020 Episodic Other skin disorders (1 source) Infection of sebaceous cyst 07-31-2020 Episodic Pancreatic disorders (not diabetes) (1 source) Gallstone acute pancreatitis 05-28-2020 Episodic Parkinson`s disease (3 sources) Parkinson's disease; Translations: [Parkinson's disease] Onset: 12-16-2022 04-22-2023 Chronic Residual codes; unclassified (1 source) Insomnia co-occurrent and due to medical condition; Translations: [Insomnia due to medical condition] 09-18-2023 Chronic Residual codes; unclassified (1 source) Insomnia due to medical condition; Translations: [Insomnia due to medical condition] Onset: 02-12-2024 Chronic Residual codes; unclassified (1 source) Acquired absence of other specified parts of digestive tract; Translations: [ACQ ABSENCE OTH PART DIGESTV TRACT] Onset: 02-10-2023 Episodic Residual codes; unclassified (1 source) Disorientation, unspecified; Translations: [DISORIENTATION UNSPECIFIED] Onset: 12-16-2022 Episodic Screening and history of mental health and substance abuse codes (1 source) Personal history of nicotine dependence; Translations: [PERSONAL HISTORY OF NICOTINE DEPEND] Onset: 02-10-2023 Episodic Spondylosis; intervertebral disc disorders; other back problems (7 sources) Cervical disc disorder, unspecified, unspecified cervical region; Translations: [Cervical spondylosis] Onset: 10-08-2022 04-22-2023 Chronic Spondylosis; intervertebral disc disorders; other back problems (3 sources) Radiculopathy, cervical region; Translations: [Lumbar disc prolapse with radiculopathy] Onset: 12-16-2022 05-28-2020 Episodic Unclassified (2 sources) Parkinsonism; Translations: [Parkinsonism, unspecified Parkinsonism type] Onset: 12-17-2022 09-18-2023 Chronic Unclassified (1 source) CONTACT W/AND (SUSP) EXPOS COVID-19; Translations: [CONTACT W/AND (SUSP) EXPOS COVID-19] Onset: 09-25-2022 Unclassified (1 source) ACIDOSIS UNSPECIFIED; Translations: [ACIDOSIS UNSPECIFIED] Onset: 09-01-2022 Unclassified (1 source) CHRN KIDNEY DISEASE STG 3 UNSP; Translations: [CHRN KIDNEY DISEASE STG 3 UNSP] Onset: 09-01-2022 Unclassified (1 source) Sebaceous cyst of skin 10-02-2020 Unclassified (1 source) Parkinsonism, unspecified; Translations: [Parkinsonism, unspecified] Onset: 12-17-2022 Unclassified (1 source) Unspecified dementia, mild, with agitation; Translations: [Unspecified dementia, mild, with agitation] Onset: 12-17-2022 Unclassified (1 source) Low back pain, unspecified; Translations: [Low back pain, unspecified] Onset: 02-12-2024 Past or Other Problems Problem Classification Problem Date Documented Da te Episodic/Chronic Genitourinary symptoms and ill-defined conditions (3 sources) Retention of urine; Translations: [Retention of urine, unspecified] Onset: 07-03-2020 09-18-2023 Episodic Mood disorders (1 source) Mood disorders Onset: [...] Heartburn; Translations: [HEARTBURN] Onset: 09-01-2022 Episodic Other hereditary and degenerative nervous system conditions (1 source) Drug induced subacute dyskinesia; Translations: [Drug induced subacute dyskinesia] Onset: 12-17-2022 Episodic Other inflammatory condition of skin (1 source) Erythematous condition, unspecified; Translations: [ERYTHEMATOUS CONDITION UNSPECIFIED] Onset: 09-01-2022 Episodic Other lower respiratory disease (1 source) Acute respiratory distress; Translations: [ACUTE RESPIRATORY DISTRESS] Onset: 09-01-2022 Episodic Other nervous system disorders (1 source) Unsteadiness on feet; Translations: [Unsteadiness on feet] Onset: 12-17-2022 Episodic Other upper respiratory disease (4 sources) Epistaxis; Translations: [EPISTAXIS] Onset: 08-15-2022 Episodic Residual codes; unclassified (1 source) Body mass index (BMI) 23.0-23.9, adult; Translations: [BODY MASS INDEX BMI 23.0-23.9 ADULT] Onset: 09-01-2022 Episodic Residual codes; unclassified (2 sources) Other specified postprocedural states; Translations: [Other specified postprocedural states] Onset: 09-10-2023 Episodic Skin and subcutaneous tissue infections (1 source) Local infection of the skin and subcutaneous tissue, unspecified; Translations: [LOCAL INFECT SKIN SUBQ TISSUE UNS] Onset: 09-01-2022 Episodic Syncope (2 sources) Syncope and collapse; Translations: [Syncope and collapse] Onset: 07-21-2023 Episodic Unclassified (1 source) Onset: 09-27-2023 09-27-2023 Results Test Name Value Interpretation Reference Range Facility Office Visiton 06-01-2024 Follow-up visit [id number] Efraín Johnson Pinky 1950 M Date Provider Department Center 06/01/2024 ZEV JOHNSON PILAR [facility] Family History Problem Relation Age of Onset Stroke Father Stroke Paternal Grandmother Stroke Paternal Grandfather Family Status - Relation Status Age at Father Paternal Grandmother Paternal Grandfather Level of Service:47851 [place] OFFICE/OUTPATIENT ESTABLISHED MOD MDM 30 MIN Reason for Visit and Comments: Hyperlipidemia [182] Hypertension [511140] - Pt is here for a six month follow up. Normal [facility] Office Visiton 12-08-2023 Follow-up visit [id number] Efraín Johnson Pinky 1950 M Date Provider Department Center 12/08/2023 MISSAEL PRINCE PILAR [facility] Family History Problem Relation Age of Onset Stroke Father Stroke Paternal Grandmother Stroke Paternal Grandfather Family Status - Relation Status Age at Father Paternal Grandmother Paternal Grandfather Level of Service:75632 [place] OFFICE/OUTPATIENT ESTABLISHED LOW MDM 20 MIN Normal [facility] Documentationon 09-18-2023 Documentation [id number] AlexEfraín 1950 M Date Provider Department Center 09/18/2023 ROBIN BANUELOS Family History Problem Relation Age of Onset Stroke Father Stroke Paternal Grandmother Stroke Paternal Grandfather Family Status - Relation Status Age at Father Paternal Grandmother Paternal Grandfather Normal [facility] Office Visiton 09-14-2023 Follow-up visit [id number] AlexEfraín 1950 M Date Provider Department Center 09/14/2023 1596-ROBIN CAMARENA CARD [facility] Family History Problem Relation Age of Onset Stroke Father Stroke Paternal Grandmother Stroke Paternal Grandfather Family Status - Relation Status Age at Father Paternal Grandmother Paternal Grandfather Level of Service:44896 [place] OFFICE/OUTPATIENT ESTABLISHED MOD MDM 30 MIN Normal [facility] HPon 09-10-2023 [facility] Electrophysiology Consult Note Reason for visit: [facility] follow-up, bradycardia, holter monitor , new to EP HPI: Efraín Johnson is a 73 y.o. year old with past medical history of Hypertension, bradycardia, CKD wth baseline appearing around Cr1.5, anemia. Patient was seen in the [facility] for her sinus bradycardia. He was having heart rate ranging in the 50s but was asymptomatic and was discharged with event monitor. He was also dealing with an SHERYL and was found to be dehydrated, hypokalemic, hyponatremic. He was seen by neurology for lower extremity weakness who recommended MRI of C-spine, no concern for stroke. He was seen in [place] [facility] 11/11/2022 for weakness and difficulty getting [...] Murmur: not heard (more content not included)... [facility] NURSNOTEon 09-10-2023 NURSNOTE RN educated pt on d/ c instructions. RN encouraged pt to voice any questions or concerns. Pt verbalizes no questions or concerns at this time. Pt was wheeled off of unit with all of belongings. Normal [facility] Orders Onlyon 08-13-2023 Orders Only [id number] Efraín Johnson 1950 M Date Provider Department Center 08/13/2023 TERRI MAHER PILAR [facility] Family History Problem Relation Age of Onset Stroke Father Stroke Paternal Grandmother Stroke Paternal Grandfather Family Status - Relation Status Age at Father Paternal Grandmother Paternal Grandfather [facility] Office Visiton 07-21-2023 Follow-up visit [id number] Efraín Johnson 1950 M Date Provider Department Center 07/21/2023 MISSAEL PRINCE Family History Problem Relation Age of Onset Stroke Father Stroke Paternal Grandmother Stroke Paternal Grandfather Family Status - Relation Status Age at Father Paternal Grandmother Paternal Grandfather Level of Service:33214 [place] OFFICE/OUTPATIENT [facility] HIGH MDM 60-74 MINUTES [facility] Orders Onlyon 07-21-2023 Orders Only [id number] Efraín Johnson 1950 M Date Provider Department Center 07/21/2023 TERRI MAHER Family History Problem Relation Age of Onset Stroke Father Stroke Paternal Grandmother Stroke Paternal Grandfather Family Status - Relation Status Age at Father Paternal Grandmother Paternal Grandfather Normal [facility] Outside Colonoscopyon 2022 Outside Colonoscopy [id number] .00CD:127 Normal [facility] Insurance Correspondenceon 0 05-14-2023 Insurance Correspondence [id number] 1.00CD:127 Normal [facility] Consent for Procedure/Surger yon 05-13-2023 Consent for Procedure/Surgery [id number] .00CD:127 Normal [facility] Ambulatory Visit Summaryon 0 05-12-2023 Ambulatory Visit [...] Epidermoid cyst of skin of back Normal [facility] ED Note-Physicianon 04-15-20 ED Note-Physician [id number] .00CD:127 Normal [facility] RAD - CT Reporton 04-15-2023 RAD - CT Report [id number] .00CD:127 Normal [facility] Physician Referralon 023 Physician Referral [id number] .00CD:127 Normal [facility] Physician Referralon 023 Physician Referral [id number] .00CD:127 Normal [facility] BLOOD CULTURE ID PANELon A. baumannii Not detected Normal NOT DETECTED [facility] Comment on above: Performed By: #### B CID2 ####[facility] [address] [place] [id number] Otero Bacteriodes fragilis Not detected Normal NOT DETECTED [facility] Comment on above: Performed By: #### B CID2 ####[facility] [address] [place] [address]DrJeramie Otero BCID CONTROLS PASSED Normal [facility] Comment on above: Performed By: #### B CID2 ####[facility] [address] [place] [address]Dr. Flaco Otero BCIDBTHD BLOOD CULTURE BOTTLE INFORMATION [facility] Comment on above: Performed By: #### B CID2 ####[facility] [address] [place] [address]Dr. Yiedith Otero BCIDHD1 ANTIMICROBIAL RESISTANCE GENES [facility] Comment on above: Performed By: #### B CID2 ####[facility] [address] [place] [address]Dr. Yiedith Otero BCIDHD2 SEE BELOW [facility] Comment on above: Result Comment: Note : Antimicrobial resitance can occur via multiple mechanisms. A Not Detected result for the boolinoArray antomicrobial resistance gene assays does not indicate antimicrobial susceptibility. Subculturing is required for species identification and susceptibility testing of isolates. Performed By: #### B CID2 ####[facility] [address] [place], [place] [address]Dr. Purviedith Otero BCIDHD3 Positive [facility] Comment on above: Performed By: #### B CID2 ####[facility] [address] [place], [place] [address]Dr. Purviedith Otero BCIDHD4 Negative [facility] Comment on above: Performed By: #### B CID2 ####[facility] [address] [place] [address]Dr. Purviedith Otero BCIDHD5 YEAST [facility] Comment on above: Performed By: #### B CID2 ####[facility] [address] [place] [address]Dr. Purvilan Otero Bottle Set: Set 2 [place] [facility] Comment on above: Performed By: #### B CID2 ####[facility] O[address] [place], [place] [address]Dr. Flaco Otero Bottle: Pediatric [facility] Comment on above: Performed By: #### B CID2 ####[facility] [address] [place], [place] [address]Dr. Flaco Otero C. neoformans/gattii Not detected Normal NOT DETECTED [facility] Comment on above: Performed By: #### B CID2 ####[facility] [address] [place] [address]Dr. Yiedith Otero Angela albicans Not detected Normal NOT DETECTED [facility] Comment on above: Performed By: #### B CID2 ####[facility] [address] [place] [address]Dr. Yiedith Otero Angela auris Not detected Normal NOT DETECTED [facility] Comment on above: Performed By: #### B CID2 ####[facility] [address] [place] [address]Dr. Yiedith Otero Angela glabrata Not detected Normal NOT DETECTED [facility] Comment on above: Performed By: #### B CID2 ####[facility] [address] [place], [place] [address]Dr. Yiedith Otero Angela Krusei Not detected Normal NOT DETECTED [facility] Comment on above: Performed By: #### B CID2 ####[facility] [address] [place], [place] [address]Dr. Yiedith Otero Angela Parapsilosis Not detected Normal NOT DETECTED [facility] Comment on above: Performed By: #### B CID2 ####[facility] [address] [place], [place] [address]Dr. Yiedith Otero Angela Tropicalis Not detected Normal NOT DETECTED [facility] Comment on above: Performed By: #### B CID2 ####[facility] [address] [place] [address]Dr. Flaco Otero CTX-M Resistant Gene Not Applicable Normal NOT DETECTE D The [facility] Comment on above: Performed By: #### B CID2 ####[facility] Oqaycetpzt[address] [place], [place] [address]Dr. Yiedith Otero E. Cloacae complex Not detected Normal NOT DETECTED [facility] Comment on above: Performed By: #### B CID2 ####[facility] Kwzwsvnrlv[address] [place] [address]Dr. Yilan Otero E. faecalis Not detected Normal NOT DETECTED The [facility] Comment on above: Performed By: #### B CID2 ####[facility] Fwergfgpoa17[address] [place] [address]Dr. Flaco Otero E. faecium Not detected Normal NOT DETECTED [facility] Comment on above: Performed By: #### B CID2 ####[facility] Zxfgvneumi335[address] [place], [place] [address]Dr. Yilan Otero Enterobacteriaceae Not detected Normal NOT DETECTED [facility] Comment on above: Performed By: #### B CID2 ####[facility] Hegeiffikp795398 [address] [place], [place] [address]Dr. Flaco Otero Escherichia coli Not detected Normal NOT DETECTED The [facility] Comment on above: Performed By: #### B CID2 ####[facility] Htejqywsla56[address] [place], [place] [address]Dr. Flaco Otero H. influenzae Not detected Normal NOT DETECTED The [facility] Comment on above: Performed By: #### B CID2 ####[facility] Juwnjsyiht707698 [address] [place], [place] [address]Dr. Flaco Otero IMP Resistant Gene Not Applicable Normal NOT DETECTED The [facility] Comment on above: Performed By: #### B CID2 ####[facility] Dgrlwfpfto728698 [address] [place], [place] [address]Dr. Yiedith Otero K. oxytoca Not detected Normal NOT DETECTED [facility] Comment on above: Performed By: #### B CID2 ####[facility] Ltaglzwnop986198 [address] [place], [place] [address]Dr. Yilan Otero K. pneumoniae Not detected Normal NOT DETECTED The [facility] Comment on above: Performed By: #### B CID2 ####[facility] Huzpzsfnhg298[address] [place], [place] [address]Dr. Yilan Otero Klebsiella aerogenes Not detected Normal NOT DETECTED The [facility] Comment on above: Performed By: #### B CID2 ####[facility] Ccwdqpjvgp058198 [address] [place], [place] [address]Dr. Flaco Otero KPC Resistant Gene Not detected Normal NOT DETECTED [facility] Comment on above: Performed By: #### B CID2 ####[facility] Gscotbptml83[address] [place] [address]Dr. Flaco Otero List. monocytogenes Not detected Normal NOT DETECTED T [facility] Comment on above: Performed By: #### B CID2 ####[facility] Mjvhgfhcus957498 [address] [place], [place] [address]Dr. Flaco Branden Mcr-1 Resistant Gene Not Applicable Normal NOT DETECTE D [facility] Comment on above: Performed By: #### B CID2 ####[facility] Tihjgogfui525[address] [place], [place] [address]Dr. Flaco Otero mecA/C Not Applicable Normal NOT DETECTED [facility] Comment on above: Performed By: #### B CID2 ####[facility] Wppxuypqsa475498 [address] [place], [place] [address]Dr. Flaco Branden mecA/C MREJ Not Applicable Normal NOT DETECTED The [facility] Comment on above: Performed By: #### B CID2 ####[facility] Edveoryhda580598 [address] [place], [place] [address]Dr. Flaco Branden N. meningitidis Not detected Normal NOT DETECTED The [facility] Comment on above: Performed By: #### B CID2 ####[facility] Tsfjtfvkps845[address] [place], [place] [address]Dr. Purviedith Otero NDM Resistant Gene Not Applicable Normal NOT DETECTED The [facility] Comment on above: Performed By: #### B CID2 ####[facility] Zfaayapjqn796298 [address] [place], [place] [address]Dr. Purviedith Branden Oxa-48-like Not Applicable Normal NOT DETECTED [facility] Comment on above: Performed By: #### B CID2 ####[facility] Eghdfvnxrc808398 [address] [place], [place] [address]Dr. Flaco Otero Proteus Not detected Normal NOT DETECTED [facility] Comment on above: Performed By: #### B CID2 ####[facility] Okkuxytzod594998 [address] [place], [place] [address]Dr. Flaco Otero Pseud. aeruginosa Not detected Normal NOT DETECTED The [facility] Comment on above: Performed By: #### B CID2 ####[facility] Pedfowcnje6905 [place] [address]Dr. Flaco Otero S. maltophilia Not detected Normal NOT DETECTED The [facility] Comment on above: Performed By: #### B CID2 ####[facility] Isrzinovtu619398 [address] [place], [place] [address]Dr. Flaco Otreo Salmonella Not detected Normal NOT DETECTED [facility] Comment on above: Performed By: #### B CID2 ####[facility] Fogdepxcls057098 [address] [place], [place] [address]Dr. Flaco Otero Seratia marcescens Not detected Normal NOT DETECTED [facility] Comment on above: Performed By: #### B CID2 ####[facility] Csfezwddmn019998 [address] [place], [place] [address]Dr. Flaco Otero Site: left hand Normal The [facility] Comment on above: Performed By: #### B CID2 ####[facility] Hjohxtmqqg1538[address] [place], [place] [address]Dr. Flaco Otero Staph. aureus Not detected Normal NOT DETECTED [facility] Comment on above: Performed By: #### B CID2 ####[facility] Svbaudhamz843298 [address] [place], [place] [address]Dr. Flaco Otero Staph. epidermidis Not detected Normal NOT DETECTED [facility] Comment on above: Performed By: #### B CID2 ####[facility] Ramrojyfxs530198 [address] [place], [place] [address]Dr. Flaco Otero Staph. lugdunensis Not detected Normal NOT DETECTED [facility] Comment on above: Performed By: #### B CID2 ####[facility] Rqkflvjfeb4099[address] [place], [place] [address]Dr. Flaco Otero Staphylococcus Not detected Normal NOT DETECTED The [facility] Comment on above: Performed By: #### B CID2 ####[facility] Mlhckcgrfh7728[address] [place], [place] [address]Dr. Flaco Otero Strep. agalactiae Not detected Normal NOT DETECTED The [facility] Comment on above: Performed By: #### B CID2 ####[facility] Npvnuekrxc280098 [address] [place], [place] [address]Dr. Flaco Otero Strep. pneumoniae Not detected Normal NOT DETECTED [facility] Comment on above: Performed By: #### B CID2 ####[facility] Qxhkkeflco1487[address] [place], [place] [address]Dr. Flaco Otero Strep. pyogenes Not detected Normal NOT DETECTED [facility] Comment on above: Performed By: #### B CID2 ####[facility] Gzwklxngjn779798 [address] [place], [place] [address]Dr. Flaco Otero Streptococcus Detected Critically abnormal NOT DETECTED [facility] Comment on above: Performed By: #### B CID2 ####[facility] Ttppexvekd992698 [address] [place], [place] [address]Dr. Flaco Otero Hao/B Resist. Gene Not detected Normal NOT DETECTED [facility] Comment on above: Performed By: #### B CID2 ####[facility] Fzamltdqgl083398 [address] [place], [place] [address]Dr. Flaco Otero VIM Resistant Gene Not Applicable Normal NOT DETECTED The [facility] Comment on above: Performed By: #### B CID2 ####[facility] Pbwixfefnv907998 [address] [place], [place] [address]Dr. Flaco Otero CBC AUTO DIFFon 02-10-2023 BASO # 0.0 103/ul Normal 0.0-0.1 [facility] Comment on above: Performed By: #### C BC ####[facility] Embezlmjui349198 [address] [place], [place] [address]Dr. Flaco Otero Basophils/100 WBC (Bld) 0.5 % Normal 0.2-2.0 [facility] Comment on above: Performed By: #### C BC ####[facility] Ydzldtgdlq171498 [address] [place], [place] [address]Dr. Flaco Otero EO # 0.1 103/ul Normal 0.0-0.7 The [facility] Comment on above: Performed By: #### C BC ####[facility] Jkncwujizo4037[address] [place], [place] [address]Dr. Flaco Otero Eosinophils/100 WBC (Bld) 1.1 % Normal 0.9-7.0 [facility] Comment on above: Performed By: #### C BC ####[facility] Vccljwzzqb0248 [place] [address]Dr. Flaco Otero Erythrocyte distribution width (RBC) [Ratio] 16.0 % Critically high 11.0-15.0 [facility] Comment on above: Performed By: #### C BC ####[facility] Ngmfcdxojy232898 [address] [place], [place] [address]Dr. Flaco Otero Hematocrit (Bld) [Volume fraction] 40.1 % Critically low 42.0-54.0 [facility] Comment on above: Performed By: #### C BC ####[facility] Kmrhhcfowm558398 [address] [place], [place] [address]Dr. Flaco Otero Hemoglobin (Bld) [Mass/Vol] 13.2 g/dL Critically low 14.0-18.0 [facility] Comment on above: Performed By: #### C BC ####[facility] Vgotlqmzvd401[address] [place], [place] [address]Dr. Flaco Otero IG # 0.01 10e3/ul Normal 0.00-0.03 [facility] Comment on above: Performed By: #### C BC ####[facility] Lrmejuzwtl778798 [address] [place], [place] [address]Dr. Flaco Otero IG % 0.2 % Normal 0.0-0.5 [facility] Comment on above: Performed By: #### C BC ####[facility] Ptssckyufi648598 [address] [place], [place] [address]Dr. Flaco Otero LYMPH # 1.8 103/ul Normal 1.2-3.8 The [facility] Comment on above: Performed By: #### C BC ####[facility] Ogvpogwcln696[address] [place], [place] [address]Dr. Flaco Otero Lymphocytes/100 WBC (Bld) 28.1 % Normal 20.5-60.0 [facility] Comment on above: Performed By: #### C BC ####[facility] Zgepcqlsqq2668[address] [place], [place] [address]Dr. Flaco Otero MANUAL DIFF REQ NO Normal [facility] Comment on above: Performed By: #### C BC ####[facility] Bpcintkcfy[address] [place] [address]Dr. Flaco Branden MCH (RBC) [Entitic mass] 28.0 pg Normal 25.9-34.0 The [facility] Comment on above: Performed By: #### C BC ####[facility] Lmmoripopl0092 [place] [address]Dr. Flaco Branden MCHC (RBC) [Mass/Vol] 32.9 g/dL Normal 29.9-35.2 The [facility] Comment on above: Performed By: #### C BC ####[facility] Kpapjeoscm1142 [place] [address]Dr. Flaco Otero MCV (RBC) [Entitic vol] 85.0 fL Normal 80.0-94.0 The [facility] Comment on above: Performed By: #### C BC ####[facility] Slhuwjzekd445[address] [place], [place] [address]Dr. Flaco Otero MONO # 0.5 103/ul Normal 0.3-0.8 The [facility] Comment on above: Performed By: #### C BC ####[facility] Csnfqaotrt3270[address] [place], [place] [address]Dr. Flaco Otero Monocytes/100 WBC (Bld) 7.2 % Normal 1.7-12.0 The [facility] Comment on above: Performed By: #### C BC ####[facility] Icdjrimhcv9060[address] [place], [place] [address]Dr. Flaco Otero NEUT # 4.1 103/ul Normal 1.4-6.5 The [facility] Comment on above: Performed By: #### C BC ####[facility] Qailetoeez811[address] [place], [place] [address]Dr. Flaco Otero Neutrophils/100 WBC (Bld) 62.9 % Normal 43.0-75.0 The [facility] Comment on above: Performed By: #### C BC ####[facility] Pjbdvnccvk989[address] [place], [place] [address]Dr. Flaco Otero Platelet mean volume (Bld) [Entitic vol] 10.7 fL Normal 9.5-13.5 The [facility] Comment on above: Performed By: #### C BC ####[facility] Kibzgjhzqn1481 [place] [address]Dr. Purviedith Branden PLT 180 103/ul Normal 150-450 [facility] Comment on above: Performed By: #### C BC ####[facility] Lmoqufhzdk3078 [place] [address]Dr. Purviedith Branden RBC 4.72 106/ul Normal 4.70-6.10 [facility] Comment on above: Performed By: #### C BC ####[facility] Baqglnfhyt0394 [place] [address]Dr. Purviedith Branden WBC 6.5 103/ul Normal 4.0-11.0 [facility] Comment on above: Performed By: #### C BC ####[facility] Pxjzbkjsgn4817 [place] [address]Dr. Flaco Otero PROF 14(COMP METB)on 023 Albumin [Mass/Vol] 2.8 g/dL Critically low 3.4-5.0 [facility] Comment on above: Performed By: #### C MP ####[facility] Hrcrwiprds1726[address] [place], [place] [address]Dr. Flaco Otero Albumin/Globulin [Mass ratio] 1.2 {ratio} Normal [facility] Comment on above: Performed By: #### C MP ####[facility] Ualjyxcgjj3870 [place] [address]Dr. Flaco Otero ALP [Catalytic activity/Vol] 71 U/L Normal 46-116 [facility] Comment on above: Performed By: #### C MP ####[facility] Tvrnevlvxo7225 [place] [address]Dr. Flaco Otero ALT [Catalytic activity/Vol] 9 U/L Critically low 16-63 [facility] Comment on above: Performed By: #### C MP ####[facility] Zunyizvota3125 [place] [address]Dr. Flaco Otero Anion gap [Moles/Vol] 11.5 mmol/L Normal [facility] Comment on above: Performed By: #### C MP ####[facility] Nlhsdnrqoc3640 [place] [address]Dr. Flaco Otero AST [Catalytic activity/Vol] 13 U/L Critically low 15-37 [facility] Comment on above: Performed By: #### C MP ####[facility] Pnulixxicg2927 [place] [address]Dr. Flaco Otero Bilirubin [Mass/Vol] 1.4 mg/dL Critically high 0.2-1.0 [facility] Comment on above: Performed By: #### C MP ####[facility] Rzdskrgphr0899[address] [place], [place] [address]Dr. Flaco Otero Calcium [Mass/Vol] 7.9 mg/dL Critically low 8.5-10.1 Th e [facility] Comment on above: Performed By: #### C MP ####[facility] Eoytubkarh205[address] [place], [place] [address]Dr. Flaco Otero Chloride [Moles/Vol] 110 mmol/L Critically high 98-107 [facility] Comment on above: Performed By: #### C MP ####[facility] Oshgkvvqlu7585[address] [place], [place] [address]Dr. Flaco Otero CO2 [Moles/Vol] 26.4 mmol/L Normal 21.0-32.0 [facility] Comment on above: Performed By: #### C MP ####[facility] Tunlmllgki0048[address] [place], [place] [address]Dr. Flaco Otero Creatinine [Mass/Vol] 1.35 mg/dL Critically high 0.70-1.30 [facility] Comment on above: Performed By: #### C MP ####[facility] Zaagzfyywd3212[address] [place], [place] [address]Dr. Flaco Otero EGFR-AF CITIZEN OF [place] >60 Normal >=60 [facility] Comment on above: Performed By: #### C MP ####[facility] Shoyoojyyz447[address] [place], [place] [address]Dr. Flaco Otero EGFR-NON AF CITIZEN OF [place] 52 mL/min/1.73m2 Critically low >=60 The [facility] Comment on above: Performed By: #### C MP ####[facility] Uvrokwrjlw7899 [place] [address]Dr. Flaco Otero Globulin (S) [Mass/Vol] 2.4 g/dL Normal [facility] Comment on above: Performed By: #### C MP ####[facility] Xptmeyvvdz5067 [place] [address]Dr. Flaco Otero Glucose [Mass/Vol] 90 mg/dL Normal 74-106 [facility] Comment on above: Performed By: #### C MP ####[facility] Xipzdgntou9301[address] [place], [place] [address]Dr. Flaco Otero Potassium [Moles/Vol] 2.8 mmol/L Critically low 3.5-5.1 [facility] Comment on above: Performed By: #### C MP ####[facility] Pqnbvbeklf7917[address] [place], [place] [address]Dr. Flaco Otero Protein [Mass/Vol] 5.2 g/dL Critically low 6.4-8.2 [facility] Comment on above: Performed By: #### C MP ####[facility] Siuoaremrc7417[address] [place], [place] [address]Dr. Flaco Otero Sodium [Moles/Vol] 143 mmol/L Normal 136-145 [facility] Comment on above: Performed By: #### C MP ####[facility] Vobwpzcohx829[address] [place], [place] [address]Dr. Flaco Otero Urea nitrogen [Mass/Vol] 13.0 mg/dL Normal 7.0-18.0 [facility] Comment on above: Performed By: #### C MP ####[facility] Syybultybe139[address] [place], [place] [address]Dr. Flaco Otero Urea nitrogen/Creatinine [Mass ratio] 9.6 mg/mg Normal [facility] Comment on above: Performed By: #### C MP ####[facility] Pvmhiagvds0210[address] [place], [place] [address]Dr. Flaco Otero AMMONIAon 02-09-2023 Ammonia (P) [Mass/Vol] ug/dL Critically low 11-32 [facility] Comment on above: Performed By: #### A MM ####[facility] Apkpejtnmh3753 [place] [id number]. Flaco Otero CBC AUTO DIFFon 02-09-2023 BASO # 0.0 103/ul Normal 0.0-0.1 [facility] Comment on above: Performed By: #### C BC ####[facility] Rggvhxqsli9296 [place] [address]Dr. Flaco Branden Basophils/100 WBC (Bld) 0.6 % Normal 0.2-2.0 [facility] Comment on above: Performed By: #### C BC ####[facility] Hrqyehssve254[address] [place], [place] [address]Dr. Flaco Branden EO # 0.0 103/ul Normal 0.0-0.7 The [facility] Comment on above: Performed By: #### C BC ####[facility] Esuudmvtqr575[address] [place], [place] [address]Dr. Purviedith Otero Eosinophils/100 WBC (Bld) 0.8 % Critically low 0.9-7.0 [facility] Comment on above: Performed By: #### C BC ####[facility] Aklghzhfey674[address] [place], [place] [address]Dr. Flaco Otero Erythrocyte distribution width (RBC) [Ratio] 15.9 % Critically high 11.0-15.0 [facility] Comment on above: Performed By: #### C BC ####[facility] Tzepsssgnp53[address] [place], [place] [address]Dr. Flaco Otero Hematocrit (Bld) [Volume fraction] 40.6 % Critically low 42.0-54.0 The [facility] Comment on above: Performed By: #### C BC ####[facility] Niddahspbl646[address] [place], [place] [address]Dr. Flaco Otero Hemoglobin (Bld) [Mass/Vol] 13.1 g/dL Critically low 14.0-18.0 [facility] Comment on above: Performed By: #### C BC ####[facility] Eiwwthwgnx35[address] [place], [place] [address]Dr. Flaco Otero IG # 0.01 10e3/ul Normal 0.00-0.03 [facility] Comment on above: Performed By: #### C BC ####[facility] Gdnkqkjbmh6747 [place] [address]DrJeramie Otero IG % 0.2 % Normal 0.0-0.5 [facility] Comment on above: Performed By: #### C BC ####[facility] Vqlfpfzxln1452 [place] [address]DrJeramie Otero LYMPH # 1.3 103/ul Normal 1.2-3.8 [facility] Comment on above: Performed By: #### C BC ####[facility] Jwszsgizdf6992 [place] [address]DrJeramie Otero Lymphocytes/100 WBC (Bld) 26.3 % Normal 20.5-60.0 [facility] Comment on above: Performed By: #### C BC ####[facility] Nighbdqcot1681 [place] [address]DrJeramie Otero MANUAL DIFF REQ NO Normal [facility] Comment on above: Performed By: #### C BC ####[facility] Hhidcouzjc3579 [place] [address]Dr. Purviedith Otero MCH (RBC) [Entitic mass] 27.5 pg Normal 25.9-34.0 [facility] Comment on above: Performed By: #### C BC ####[facility] Siraachuml478[address] [place], [place] [address]DrJeramie Purviedith Otero MCHC (RBC) [Mass/Vol] 32.3 g/dL Normal 29.9-35.2 [facility] Comment on above: Performed By: #### C BC ####[facility] Anwgjcmrds[address] [place], [place] [id number] Otero MCV (RBC) [Entitic vol] 85.3 fL Normal 80.0-94.0 [facility] Comment on above: Performed By: #### C BC ####[facility] Thpetymsqa[address] [place], [place] [id number] Otero MONO # 0.4 103/ul Normal 0.3-0.8 [facility] Comment on above: Performed By: #### C BC ####[facility] Yuuewdogxj6927 [place] [address]Dr. Flaco Otero Monocytes/100 WBC (Bld) 7.6 % Normal 1.7-12.0 [facility] Comment on above: Performed By: #### C BC ####[facility] Rvawbtqyel7801 [place] [address]Dr. Flaco Otero NEUT # 3.2 103/ul Normal 1.4-6.5 [facility] Comment on above: Performed By: #### C BC ####[facility] Duzxxonnes5098 [place] [address]Dr. Flaco Otero Neutrophils/100 WBC (Bld) 64.5 % Normal 43.0-75.0 [facility] Comment on above: Performed By: #### C BC ####[facility] Tdsmuryaje8871 [place] [address]Dr. Flaco Otero Platelet mean volume (Bld) [Entitic vol] 10.6 fL Normal 9.5-13.5 [facility] Comment on above: Performed By: #### C BC ####[facility] Pvqjygfmzw5555 [place] [address]Dr. Flaco Otero PLT 195 103/ul Normal 150-450 [facility] Comment on above: Performed By: #### C BC ####[facility] Kzidciqvqh9838 [place] [address]Dr. Flaco Otero RBC 4.76 106/ul Normal 4.70-6.10 [facility] Comment on above: Performed By: #### C BC ####[facility] Ydedvqtyfb0588 [place] [address]Dr. Flaco Otero WBC 5.0 103/ul Normal 4.0-11.0 [facility] Comment on above: Performed By: #### C BC ####[facility] Tubumaqjui9954 [place] [address]DrJeramie Otero PROF 14(COMP METB)on 023 Albumin [Mass/Vol] 3.0 g/dL Critically low 3.4-5.0 Th [facility] Comment on above: Performed By: #### C MP ####[facility] Obrhepuyfz4789 [place] [address]Dr. Flaco Otero Albumin/Globulin [Mass ratio] 1.2 {ratio} Normal [facility] Comment on above: Performed By: #### C MP ####[facility] Fyvhfjwamg9709 [place] [id number]. Flaco Otero ALP [Catalytic activity/Vol] 67 U/L Normal 46-116 [facility] Comment on above: Performed By: #### C MP ####[facility] Kmxkcwteiz9974 [place] [address]Dr. Flaco Otero ALT [Catalytic activity/Vol] 7 U/L Critically low 16-63 [facility] Comment on above: Performed By: #### C MP ####[facility] Tvkxizivpf[address] [place], [place] [address]Dr. Flaco Otero Anion gap [Moles/Vol] 12.8 mmol/L Normal Th [facility] Comment on above: Performed By: #### C MP ####[facility] Lmpyovesag15[address] [place], [place] [address]Dr. Purviedith Otero AST [Catalytic activity/Vol] 16 U/L Normal 15-37 [facility] Comment on above: Performed By: #### C MP ####[facility] Nrnfchiwh[address] [place], [place] [id number]. Flaco Otero Bilirubin [Mass/Vol] 2.1 mg/dL Critically high 0.2-1.0 [facility] Comment on above: Performed By: #### C MP ####[facility] Novaulticp[address] [place] [id number]. Flaco Otero Calcium [Mass/Vol] 8.1 mg/dL Critically low 8.5-10.1 Th [facility] Comment on above: Performed By: #### C MP ####[facility] Qlmcgyyurz4755 [place] [id number]. Flaco Otero Chloride [Moles/Vol] 110 mmol/L Critically high 98-107 [facility] Comment on above: Performed By: #### C MP ####[facility] Cuztbpobsx7195 [place] [id number]. Flaco Otero CO2 [Moles/Vol] 26.0 mmol/L Normal 21.0-32.0 [facility] Comment on above: Performed By: #### C MP ####[facility] Iaqjpcxuub5946 [place] [id number]. Flaco Otero Creatinine [Mass/Vol] 1.43 mg/dL Critically high 0.70-1.30 [facility] Comment on above: Performed By: #### C MP ####[facility] Xomggcuujj2972 [place] [address]Dr. Flaco Otero EGFR-AF CITIZEN OF [place] 59 mL/min/1.73m2 Critically low >=60 [facility] Comment on above: Performed By: #### C MP ####[facility] Nfxlrulysq82[address] [place] [address]Dr. Flaco Otero EGFR-NON AF CITIZEN OF [place] 49 mL/min/1.73m2 Critically low >=60 [facility] Comment on above: Performed By: #### C MP ####[facility] Cshjxhlhch24[address] [place] [id number]. Flaco Otero Globulin (S) [Mass/Vol] 2.4 g/dL Normal [facility] Comment on above: Performed By: #### C MP ####[facility] Tepkwchaqt9986 [place] [id number]. Flaco Otero Glucose [Mass/Vol] 77 mg/dL Normal 74-106 [facility] Comment on above: Performed By: #### C MP ####[facility] Qfvdpjswaw5971 [place] [address]Dr. Flaco Otero Potassium [Moles/Vol] 2.8 mmol/L Critically low 3.5-5.1 [facility] Comment on above: Performed By: #### C MP ####[facility] Eaugjydtpz5109 [place] [id number]. Flaco Otero Protein [Mass/Vol] 5.4 g/dL Critically low 6.4-8.2 Th [facility] Comment on above: Performed By: #### C MP ####[facility] Becgrncyml2031 [place] [address]Dr. Flaco Otero Sodium [Moles/Vol] 145 mmol/L Normal 136-145 [facility] Comment on above: Performed By: #### C MP ####[facility] Rtrzxpidbd6074 [place] [address]Dr. Flaco Otero Urea nitrogen [Mass/Vol] 8.0 mg/dL Normal 7.0-18.0 [facility] Comment on above: Performed By: #### C MP ####[facility] Bvrotnqmjc[address] [place], [place] [address]Dr. Flaco Otero Urea nitrogen/Creatinine [Mass ratio] 5.6 mg/mg Normal [facility] Comment on above: Performed By: #### C MP ####[facility] Gjelefyarv04[address] [place], [place] [address]Dr. Flaco Otero T4on 02-09-2023 T4 [Mass/Vol] 7.10 ug/dL Normal 4.50-12.10 [facility] Comment on above: Performed By: #### T SH, T4 ####[facility] Hojmanqmve[address] [place], [place] [address]Dr. Flaco Otero TSHon 02-09-2023 TSH 0.633 uIU/mL Normal 0.358-3.740 [facility] Comment on above: Performed By: #### T SH, T4 ####[facility] Zshwcjfcla032[address] [place], [place] [address]Dr. Flaco Otero US SINGLE QUAD RT UPPERon US SINGLE QUAD RT UPPER Normal [facility] AMYLASEon 02-08-2023 Amylase [Catalytic activity/Vol] 41 U/L Normal 25-115 [facility] Comment on above: Performed By: #### A MY, LIPA, CMP ####[facility] Sunvmdpohm407[address] [place], [place] [address]Dr. Flaco Otero CBC AUTO DIFFon 02-08-2023 BASO # 0.0 103/ul Normal 0.0-0.1 [facility] Comment on above: Performed By: #### C BC ####[facility] Btplibqimd1081 [place] [address]Dr. Flaco Otero Basophils/100 WBC (Bld) 0.7 % Normal 0.2-2.0 [facility] Comment on above: Performed By: #### C BC ####[facility] Udxzryvxwm[address] [place], [place] [address]Dr. Flaco Otero EO # 0.0 103/ul Normal 0.0-0.7 [facility] Comment on above: Performed By: #### C BC ####[facility] Qceizklrjo34[address] [place], [place] [address]Dr. Flaco Otero Eosinophils/100 WBC (Bld) 0.5 % Critically low 0.9-7.0 [facility] Comment on above: Performed By: #### C BC ####[facility] Yhhjjybskm309[address] [place], [place] [address]Dr. Flaco Otero Erythrocyte distribution width (RBC) [Ratio] 15.9 % Critically high 11.0-15.0 [facility] Comment on above: Performed By: #### C BC ####[facility] Sexwmlrfkl6524[address] [place], [place] [address]Dr. Flaco Otero Hematocrit (Bld) [Volume fraction] 46.1 % Normal 42.0-54.0 [facility] Comment on above: Performed By: #### C BC ####[facility] Mtycqejcog[address] [place], [place] [address]Dr. Flaco Otero Hemoglobin (Bld) [Mass/Vol] 15.2 g/dL Normal 14.0-18.0 [facility] Comment on above: Performed By: #### C BC ####[facility] Falovkupfo2536[address] [place], [place] [address]Dr. Flaco Otero IG # 0.02 10e3/ul Normal 0.00-0.03 [facility] Comment on above: Performed By: #### C BC ####[facility] Aemxhfheot[address] [place], [place] [address]Dr. Flaco Otero IG % 0.3 % Normal 0.0-0.5 [facility] Comment on above: Performed By: #### C BC ####[facility] Zvmrctqcpe3554 [place] [address]Dr. Flaco Otero LYMPH # 1.5 103/ul Normal 1.2-3.8 [facility] Comment on above: Performed By: #### C BC ####[facility] Srdekpeuuu6154 [place] [address]Dr. Flaco Otero Lymphocytes/100 WBC (Bld) 26.1 % Normal 20.5-60.0 [facility] Comment on above: Performed By: #### C BC ####[facility] Xlmkkrzkty1317 [place] [address]Dr. Flaco Otero MANUAL DIFF REQ NO Normal [facility] Comment on above: Performed By: #### C BC ####[facility] Wslhrorqfp2447 [place] [address]Dr. Flaco Otero MCH (RBC) [Entitic mass] 27.9 pg Normal 25.9-34.0 [facility] Comment on above: Performed By: #### C BC ####[facility] Yhqmewnkyj5141 [place] [address]Dr. Flaco Otero MCHC (RBC) [Mass/Vol] 33.0 g/dL Normal 29.9-35.2 [facility] Comment on above: Performed By: #### C BC ####[facility] Xjxximcsua2155 [place] [address]Dr. Flaco Otero MCV (RBC) [Entitic vol] 84.6 fL Normal 80.0-94.0 [facility] Comment on above: Performed By: #### C BC ####[facility] Zbympootql4555 [place] [address]DrJeramie Otero MONO # 0.6 103/ul Normal 0.3-0.8 [facility] Comment on above: Performed By: #### C BC ####[facility] Ymyysydpxo7896 [place] [address]Dr. Flaco Otero Monocytes/100 WBC (Bld) 9.6 % Normal 1.7-12.0 [facility] Comment on above: Performed By: #### C BC ####[facility] Fhwivwvhha8402 [place] [address]Dr. Flaco Otero NEUT # 3.7 103/ul Normal 1.4-6.5 [facility] Comment on above: Performed By: #### C BC ####[facility] Ttbvyqitiq4661 [place] [address]Dr. Flaco Otero Neutrophils/100 WBC (Bld) 62.8 % Normal 43.0-75.0 [facility] Comment on above: Performed By: #### C BC ####[facility] Nlpgdhxcte3093 [place] [address]Dr. Flaco Otero Platelet mean volume (Bld) [Entitic vol] 10.6 fL Normal 9.5-13.5 [facility] Comment on above: Performed By: #### C BC ####[facility] Qsimylxsmt5208 [place] [address]Dr. Flaco Otero PLT 255 103/ul Normal 150-450 [facility] Comment on above: Performed By: #### C BC ####[facility] Hlvpfglruh[address] [place], [place] [address]Dr. Flaco Otero RBC 5.45 106/ul Normal 4.70-6.10 [facility] Comment on above: Performed By: #### C BC ####[facility] Lwhmijwqji7687 [place] [address]Dr. Flaco Otero WBC 5.8 103/ul Normal 4.0-11.0 [facility] Comment on above: Performed By: #### C BC ####[facility] Ejyehxvzza6265 [place] [address]Dr. Flaco Otero CULTURE BLOODon 02-08-2023 Microscopic examination of blood, culture Culture Observations: NO GROWTH AT 36-48 HOURS. FINAL TO FOLLOW. Normal [facility] Comment on above: Performed By: #### B LDCX1 ####[facility] Tbnjtionuk4854 [place] [address]Dr. Flaco Otero ER URINE PROFILEon 05-14-202 3 Bilirubin Ql (U) Negative Normal NEGATIVE [facility] Comment on above: Performed By: #### E RUR ####[facility] Uvwgwfefwm8[address] [place], [place] [address]Dr. Flaco Otero Clarity (U) CLEAR Normal CLEAR [facility] Comment on above: Performed By: #### E RUR ####[facility] Vjyytmwcvf[address] [place], [place] [address]Dr. Flaco Otero Color (U) YELLOW Normal YELLOW [facility] Comment on above: Performed By: #### E RUR ####[facility] Zwqwljpfda[address] [place], [place] [address]Dr. Flaco Otero ERUAHD A micrscopic examination will be performed if indicated. Normal [facility] Comment on above: Performed By: #### E RUR ####[facility] Eywryivtwb2417[address] [place], [place] [address]Dr. Purviedith Otero Glucose Ql (U) Negative Normal NEGATIVE [facility] Comment on above: Performed By: #### E RUR ####[facility] Oxabwpykqp419[address] [place], [place] [address]Dr. Flaco Otero Hemoglobin Ql (U) Negative Normal NEGATIVE [facility] Comment on above: Performed By: #### E RUR ####[facility] Qpclitwpge89[address] [place], [place] [address]Dr. Flaco Otero Ketones Ql (U) 15 mg/dl Abnormal NEGATIVE [facility] Comment on above: Performed By: #### E RUR ####[facility] Ptshgbpoqe66[address] [place], [place] [address]Dr. Flaco Otero LEUKOCYTES Negative Normal NEGATIVE [facility] Comment on above: Performed By: #### E RUR ####[facility] Vcrlddayzu783[address] [place], [place] [address]Dr. Flaco Otero Nitrite Ql (U) Negative Normal NEGATIVE [facility] Comment on above: Performed By: #### E RUR ####[facility] Xzzqoilisu9210[address] [place], [place] [address]Dr. Purviedith Otero pH (U) 6.5 [pH] Normal 5-9 [facility] Comment on above: Performed By: #### E RUR ####[facility] Dlyqzdwufp9605 [place] [address]Dr. Flaco Otero SPEC GRAVITY 1.010 Normal 1.005-<=1.02 5 [facility] Comment on above: Performed By: #### E RUR ####[facility] Phvjxelgte0531 [place] [address]Dr. Flaco Otero UA PROTEIN Negative Normal NEGATIVE/ TRACE [facility] Comment on above: Performed By: #### E RUR ####[facility] Talvtzzglw8720 [place] [address]Dr. Flaco Otero UR MICRO IND NOT INDICATED Normal The [facility] Comment on above: Performed By: #### E RUR ####[facility] Tkfzwonkis5748 [place] [address]Dr. Flaco Otero Urobilinogen Qn (U) 2.0 {Tuan'U}/dL Abnormal 0.2 - 1. 0 [facility] Comment on above: Performed By: #### E RUR ####[facility] Vmyvzjpzhx[address] [place], [place] [address]Dr. Flaco Otero LIPASEon 02-08-2023 Lipase [Catalytic activity/Vol] 280.0 U/L Normal 73.0-393.0 [facility] Comment on above: Performed By: #### A RICCARDO LIPA, CMP ####[facility] Bojoyyhnmw[address] [place], [place] [address]Dr. Flaco Otero PROF 14(COMP METB)on 023 Albumin [Mass/Vol] 3.5 g/dL Normal 3.4-5.0 [facility] Comment on above: Performed By: #### A RICCARDO LIPA, CMP ####[facility] Vagakpuhta[address] [place], [place] [address]Dr. Flaco Otero Albumin/Globulin [Mass ratio] 1.2 {ratio} Normal [facility] Comment on above: Performed By: #### A MY LIPA, CMP ####[facility] Jmknvtgcwc[address] [place], [place] [address]Dr. Flaco Otero ALP [Catalytic activity/Vol] 81 U/L Normal 46-116 [facility] Comment on above: Performed By: #### A DEMOND GU, CMP ####[facility] Fvmddxwwwr7696 [place] [address]Dr. Flaco Otero ALT [Catalytic activity/Vol] 7 U/L Critically low 16-63 [facility] Comment on above: Performed By: #### A RICCARDO LIPA, CMP ####[facility] Bvyignmnil7899 [place] [address]Dr. Flaco Otero Anion gap [Moles/Vol] 10.3 mmol/L Normal [facility] Comment on above: Performed By: #### A RICCARDO LIPAnjum, CMP ####[facility] Kuzcrytlkw17[address] [place], [place] [address]Dr. Flaco Otero AST [Catalytic activity/Vol] 20 U/L Normal 15-37 [facility] Comment on above: Performed By: #### A DEMOND GU, CMP ####[facility] Ywojpehkpo1164 [place] [address]Dr. Flaco Otero Bilirubin [Mass/Vol] 3.1 mg/dL Critically high 0.2-1.0 [facility] Comment on above: Performed By: #### A DEMOND GU, CMP ####[facility] Kaciujfjxh05[address] [place], [place] [address]Dr. Flaco Otero Calcium [Mass/Vol] 8.7 mg/dL Normal 8.5-10.1 [facility] Comment on above: Performed By: #### A RICCARDO LIPA, CMP ####[facility] Vhmsagjqdx2613 [place] [address]Dr. Flaco Otero Chloride [Moles/Vol] 103 mmol/L Normal 98-107 [facility] Comment on above: Performed By: #### A DEMOND GU, CMP ####[facility] Josoqjfnik7027 [place] [address]Dr. Flaco Otero CO2 [Moles/Vol] 30.5 mmol/L Normal 21.0-32.0 [facility] Comment on above: Performed By: #### A RICCARDO LIPA, CMP ####[facility] Vcebiojlog9340 [place] [address]Dr. Flaco Otero Creatinine [Mass/Vol] 1.81 mg/dL Critically high 0.70-1.30 [facility] Comment on above: Performed By: #### A MY LIPA, CMP ####[facility] Agcrwodryj6445 [place] [address]Dr. Flaco Otero EGFR-AF CITIZ[place] 45 mL/min/1.73m2 Critically low >=60 [facility] Comment on above: Performed By: #### A MY LIPA, CMP ####[facility] Pyfbvmpqxr[address] [place], [place] [address]Dr. Flaco Otero EGFR-NON AF CITIZEN OF [place] 37 mL/min/1.73m2 Critically low >=60 [facility] Comment on above: Performed By: #### A MY LIPA, CMP ####[facility] Iddjpkxyeu3817[address] [place], [place] [address]Dr. Flaco Otero Globulin (S) [Mass/Vol] 3.0 g/dL Normal [facility] Comment on above: Performed By: #### A MY LIPA, CMP ####[facility] Xgngcvmngo9[address] [place], [place] [address]Dr. Flaco Otero Glucose [Mass/Vol] 94 mg/dL Normal 74-106 The [facility] Comment on above: Performed By: #### A MY LIPA, CMP ####[facility] Rfcwmpjjqw128[address] [place], [place] [address]Dr. Flaco Otero Potassium [Moles/Vol] 2.5 mmol/L Critically low 3.5-5.1 [facility] Comment on above: Performed By: #### A MY LIPA, CMP ####[facility] Bslxzmtcok[address] [place], [place] [address]Dr. Flaco Otero Protein [Mass/Vol] 6.5 g/dL Normal 6.4-8.2 [facility] Comment on above: Performed By: #### A MY LIPA, CMP ####[facility] Ysoglucozg[address] [place], [place] [address]Dr. Flaco Otero Sodium [Moles/Vol] 133 mmol/L Critically low 136-145 [facility] Comment on above: Performed By: #### A DEMOND GU, CMP ####[facility] Kzpwryqcda911[address] [place], [place] [address]Dr. Flaco Otero Urea nitrogen [Mass/Vol] 10.0 mg/dL Normal 7.0-18.0 [facility] Comment on above: Performed By: #### A DEMOND GU, CMP ####[facility] Exgfplnnlo[address] [place], [place] [address]Dr. Flaco Otero Urea nitrogen/Creatinine [Mass ratio] 5.5 mg/mg Normal [facility] Comment on above: Performed By: #### A DEMOND GU, CMP ####[facility] Sltfovpgcn[address] [place], [place] [address]Dr. Flaco Otero PROF CHEM 8 (BAS METB)on Anion gap [Moles/Vol] 16.8 mmol/L Normal [facility] Comment on above: Performed By: #### B MP ####[facility] Rermvimdtc[address] [place], [place] [address]Dr. Flaco Otero Calcium [Mass/Vol] 8.5 mg/dL Normal 8.5-10.1 [facility] Comment on above: Performed By: #### B MP ####[facility] Hxhdufzmxx65[address] [place], [place] [address]Dr. Flaco Otero Chloride [Moles/Vol] 107 mmol/L Normal 98-107 [facility] Comment on above: Performed By: #### B MP ####[facility] Uxzbrunmpi[address] [place], [place] [address]Dr. Flaco Otero CO2 [Moles/Vol] 25.0 mmol/L Normal 21.0-32.0 [facility] Comment on above: Performed By: #### B MP ####[facility] Gcoglkqikp10[address] [place], [place] [address]Dr. Flaco Otero Creatinine [Mass/Vol] 1.62 mg/dL Critically high 0.70-1.30 [facility] Comment on above: Performed By: #### B MP ####[facility] Jofemjlwxb8314 [place] [address]Dr. Purviedith Branden EGFR-AF [place]IZ[place] 51 mL/min/1.73m2 Critically low >=60 [facility] Comment on above: Performed By: #### B MP ####[facility] Tytsvicnzk4994 [place] [address]Dr. Flaco Otero EGFR-NON AF CITIZEN OF [place] 42 mL/min/1.73m2 Critically low >=60 [facility] Comment on above: Performed By: #### B MP ####[facility] Kmjlpnnxsg2855 [place] [address]Dr. Flaco Otero Glucose [Mass/Vol] 73 mg/dL Critically low 74-106 [facility] Comment on above: Performed By: #### B MP ####[facility] Ewrcptcqzc5993 [place] [address]Dr. Flaco Otero Potassium [Moles/Vol] 3.8 mmol/L Normal 3.5-5.1 [facility] Comment on above: Performed By: #### B MP ####[facility] Jwvnsrkdfk3648 [place] [address]Dr. Flaco Otero Sodium [Moles/Vol] 145 mmol/L Normal 136-145 [facility] Comment on above: Performed By: #### B MP ####[facility] Mavxnenjpp2003 [place] [address]Dr. Flaco Otero Urea nitrogen [Mass/Vol] 10.0 mg/dL Normal 7.0-18.0 [facility] Comment on above: Performed By: #### B MP ####[facility] Teljzkvqts6551 [place] [address]Dr. Flaco Otero Urea nitrogen/Creatinine [Mass ratio] 6.2 mg/mg Normal [facility] Comment on above: Performed By: #### B MP ####[facility] Tkciakmtgr7109 [place] [address]Dr. Flaco Otero XR CHEST 1 Von 02-08-2023 XR CHEST 1 V Normal [facility] XR FOOT RT MIN 3 VIEWSon XR FOOT RT MIN 3 VIEWS Normal Th e [facility] CBC AUTO DIFFon 11-18-2022 BASO # 0.1 103/ul Normal 0.0-0.1 [facility] Comment on above: Performed By: #### C BC ####[facility] Hoyecaqesc0646 [place] [address]Dr. Flaco Otero Basophils/100 WBC (Bld) 0.6 % Normal 0.2-2.0 [facility] Comment on above: Performed By: #### C BC ####[facility] Qcgcwhqrml[address] [place], [place] [address]Dr. Flaco Otero EO # 0.2 103/ul Normal 0.0-0.7 [facility] Comment on above: Performed By: #### C BC ####[facility] Yfcswhwbmx[address] [place], [place] [address]Dr. Flaco Otero Eosinophils/100 WBC (Bld) 1.5 % Normal 0.9-7.0 [facility] Comment on above: Performed By: #### C BC ####[facility] Hvgsnviyah[address] [place], [place] [address]Dr. Flaco Otero Erythrocyte distribution width (RBC) [Ratio] 16.2 % Critically high 11.0-15.0 [facility] Comment on above: Performed By: #### C BC ####[facility] Tcuvflyhnk[address] [place], [place] [address]Dr. Flaco Oetro Hematocrit (Bld) [Volume fraction] 35.1 % Critically low 42.0-54.0 [facility] Comment on above: Performed By: #### C BC ####[facility] Jmqfdlbljv[address] [place], [place] [address]Dr. Flaco Otero Hemoglobin (Bld) [Mass/Vol] 11.5 g/dL Critically low 14.0-18.0 [facility] Comment on above: Performed By: #### C BC ####[facility] Agsyrklrtn[address] [place], [place] [address]Dr. Flaco Otero IG # 0.05 10e3/ul Critically high 0.00-0.03 [facility] Comment on above: Performed By: #### C BC ####[facility] Zoulxzzxyb5893 [place] [address]Dr. Flaco Otero IG % 0.5 % Normal 0.0-0.5 [facility] Comment on above: Performed By: #### C BC ####[facility] Cnmuggtuez6671 [place] [address]Dr. Flaco Otero LYMPH # 2.1 103/ul Normal 1.2-3.8 [facility] Comment on above: Performed By: #### C BC ####[facility] Ggvhjrabxf2479 [place] [address]Dr. Flaco Otero Lymphocytes/100 WBC (Bld) 20.5 % Normal 20.5-60.0 [facility] Comment on above: Performed By: #### C BC ####[facility] Wnmffahifk4981 [place] [address]Dr. Flaco Otero MANUAL DIFF REQ NO Normal [facility] Comment on above: Performed By: #### C BC ####[facility] Sugkdolyqy9589 [place] [address]Dr. Flaco Otero MCH (RBC) [Entitic mass] 28.1 pg Normal 25.9-34.0 [facility] Comment on above: Performed By: #### C BC ####[facility] Ehktmjnipg1016 [place] [address]Dr. Flaco Otero MCHC (RBC) [Mass/Vol] 32.8 g/dL Normal 29.9-35.2 [facility] Comment on above: Performed By: #### C BC ####[facility] Ihlpnwtwiw[address] [place], [place] [address]Dr. Flaco Otero MCV (RBC) [Entitic vol] 85.8 fL Normal 80.0-94.0 [facility] Comment on above: Performed By: #### C BC ####[facility] Uivxzxasvl[address] [place], [place] [address]Dr. Flaco Otero MONO # 1.2 103/ul Critically high 0.3-0.8 [facility] Comment on above: Performed By: #### C BC ####[facility] Tljsaakbto8661 [place] [id number]. Flaco Otero Monocytes/100 WBC (Bld) 11.5 % Normal 1.7-12.0 [facility] Comment on above: Performed By: #### C BC ####[facility] Imealpwypu6467 [place] [id number]. Flaco Otero NEUT # 6.5 103/ul Normal 1.4-6.5 [facility] Comment on above: Performed By: #### C BC ####[facility] Gyfgurkufd3782 [place] [address]Dr. Flaco Otero Neutrophils/100 WBC (Bld) 65.4 % Normal 43.0-75.0 [facility] Comment on above: Performed By: #### C BC ####[facility] Emcgbnlnrx5636 [place] [address]Dr. Flaco Otero Platelet mean volume (Bld) [Entitic vol] 10.3 fL Normal 9.5-13.5 [facility] Comment on above: Performed By: #### C BC ####[facility] Bgeqrdvcpx7966 [place] [address]Dr. Flaco Otero PLT 399 103/ul Normal 150-450 [facility] Comment on above: Performed By: #### C BC ####[facility] Pwthkkhpfh3247 [place] [address]Dr. Flaco Otero RBC 4.09 106/ul Critically low 4.70-6.10 [facility] Comment on above: Performed By: #### C BC ####[facility] Aqkanryxif2943 [place] [address]Dr. Flaco Otero WBC 10.0 103/ul Normal 4.0-11.0 [facility] Comment on above: Performed By: #### C BC ####[facility] Vpinqrdrrq7144 [place] [address]DrJeramie Otero PROF 14(COMP METB)on 023 Albumin [Mass/Vol] 2.4 g/dL Critically low 3.4-5.0 [facility] Comment on above: Performed By: #### C MP ####[facility] Xnsdojkvic3810 [place] [address]Dr. Flaco Branden Albumin/Globulin [Mass ratio] 0.6 {ratio} Normal [facility] Comment on above: Performed By: #### C MP ####[facility] Fiwlcjnylj6477 [place] [address]Dr. Flaco Branden ALP [Catalytic activity/Vol] 130 U/L Critically high 46-116 [facility] Comment on above: Performed By: #### C MP ####[facility] Mxhrsbmxko[address] [place], [place] [address]Dr. Flaco Branden ALT [Catalytic activity/Vol] 12 U/L Critically low 16-63 [facility] Comment on above: Performed By: #### C MP ####[facility] Nvwquaxdqb7[address] [place], [place] [address]Dr. Flaco Otero Anion gap [Moles/Vol] 13.6 mmol/L Normal [facility] Comment on above: Performed By: #### C MP ####[facility] Jtowjbsmbq74[address] [place], [place] [address]Dr. Flaco Branden AST [Catalytic activity/Vol] 27 U/L Normal 15-37 [facility] Comment on above: Performed By: #### C MP ####[facility] Emflqeebkv713[address] [place], [place] [address]Dr. Flaco Otero Bilirubin [Mass/Vol] 0.5 mg/dL Normal 0.2-1.0 [facility] Comment on above: Performed By: #### C MP ####[facility] Olhkjsoyhu68[address] [place], [place] [address]Dr. Flaco Otero Calcium [Mass/Vol] 9.2 mg/dL Normal 8.5-10.1 [facility] Comment on above: Performed By: #### C MP ####[facility] Qkwhpgqgag9[address] [place], [place] [address]Dr. Flaco Otero Chloride [Moles/Vol] 98 mmol/L Normal 98-107 [facility] Comment on above: Performed By: #### C MP ####[facility] Acwticrmuq9891 [place] [address]Dr. Flaco Otero CO2 [Moles/Vol] 24.0 mmol/L Normal 21.0-32.0 [facility] Comment on above: Performed By: #### C MP ####[facility] Klrllcynir5911 [place] [address]Dr. Flaco Otero Creatinine [Mass/Vol] 1.67 mg/dL Critically high 0.70-1.30 The [facility] Comment on above: Performed By: #### C MP ####[facility] Qvokehpbmo6438 [place] [address]Dr. Flaco Otero EGFR-AF CITIZEN OF [place] 49 mL/min/1.73m2 Critically low >=60 The [facility] Comment on above: Performed By: #### C MP ####[facility] Hcddzllegy1119 [place] [address]Dr. Flaco Otero EGFR-NON AF CITIZEN OF [place] 41 mL/min/1.73m2 Critically low >=60 The [facility] Comment on above: Performed By: #### C MP ####[facility] Lypauxoevu2526 [place] [address]Dr. Flaco Otero Globulin (S) [Mass/Vol] 4.3 g/dL Normal [facility] Comment on above: Performed By: #### C MP ####[facility] Ohuyfmmbxg1929 [place] [address]Dr. Flaco Otero Glucose [Mass/Vol] 103 mg/dL Normal 74-106 The [facility] Comment on above: Performed By: #### C MP ####[facility] Dwojplvnxa4904 [place] [address]Dr. Flaco Otero Potassium [Moles/Vol] 3.6 mmol/L Normal 3.5-5.1 The [facility] Comment on above: Performed By: #### C MP ####[facility] Ytwkjmuozy6194 [place] [address]Dr. Flaco Otero Protein [Mass/Vol] 6.7 g/dL Normal 6.4-8.2 [facility] Comment on above: Performed By: #### C MP ####[facility] Luedbsjojp3024 [place] [address]Dr. Flaco Otero Sodium [Moles/Vol] 132 mmol/L Critically low 136-145 Th e [facility] Comment on above: Performed By: #### C MP ####[facility] Tcoalviiag[address] [place], [place] [address]Dr. Flaco Otero Urea nitrogen [Mass/Vol] 26.0 mg/dL Critically high 7.0-18.0 [facility] Comment on above: Performed By: #### C MP ####[facility] Zbjnujjjtx3220[address] [place], [place] [address]Dr. Flaco Branden Urea nitrogen/Creatinine [Mass ratio] 15.6 mg/mg Normal The [facility] Comment on above: Performed By: #### C MP ####[facility] Srsinegcxl657[address] [place], [place] [address]Dr. Flaco Otero CBC AUTO DIFFon 11-17-2022 BASO # 0.0 103/ul Normal 0.0-0.1 [facility] Comment on above: Performed By: #### C BC ####[facility] Ciavyhtykv60[address] [place], [place] [address]Dr. Flaco Branden Basophils/100 WBC (Bld) 0.4 % Normal 0.2-2.0 [facility] Comment on above: Performed By: #### C BC ####[facility] Guqvcwrdaj906[address] [place], [place] [address]Dr. Flaco Otero EO # 0.0 103/ul Normal 0.0-0.7 [facility] Comment on above: Performed By: #### C BC ####[facility] Fcgeoafsco792198 [address] [place], [place] [address]Dr. Flaco Branden Eosinophils/100 WBC (Bld) 0.4 % Critically low 0.9-7.0 [facility] Comment on above: Performed By: #### C BC ####[facility] Wtonvesrxe180[address] [place], [place] [address]Dr. Flaco Otero Erythrocyte distribution width (RBC) [Ratio] 16.0 % Critically high 11.0-15.0 [facility] Comment on above: Performed By: #### C BC ####[facility] Vmdrkjfdlw7796 [place] [address]Dr. Flaco Otero Hematocrit (Bld) [Volume fraction] 36.4 % Critically low 42.0-54.0 [facility] Comment on above: Performed By: #### C BC ####[facility] Yngrmmcggu9747 [place] [address]Dr. Flaco Otero Hemoglobin (Bld) [Mass/Vol] 12.0 g/dL Critically low 14.0-18.0 [facility] Comment on above: Performed By: #### C BC ####[facility] Hmrgwlagxh5743 [place] [address]Dr. Flaco Otero IG # 0.03 10e3/ul Normal 0.00-0.03 [facility] Comment on above: Performed By: #### C BC ####[facility] Ufrdcxjanx737[address] [place], [place] [address]Dr. Flaco Otero IG % 0.3 % Normal 0.0-0.5 [facility] Comment on above: Performed By: #### C BC ####[facility] Imnnactwdr7664[address] [place], [place] [address]DrJeramie Otero LYMPH # 1.6 103/ul Normal 1.2-3.8 [facility] Comment on above: Performed By: #### C BC ####[facility] Laohcfkyas537[address] [place], [place] [address]Dr. Flaco Otero Lymphocytes/100 WBC (Bld) 14.7 % Critically low 20.5-60.0 The [facility] Comment on above: Performed By: #### C BC ####[facility] Zhnadqepdf234[address] [place], [place] [address]DrJeramie Otero MANUAL DIFF REQ NO Normal [facility] Comment on above: Performed By: #### C BC ####[facility] Bkcirvbars5492 [place] [address]Dr. Flaco Otero MCH (RBC) [Entitic mass] 28.2 pg Normal 25.9-34.0 [facility] Comment on above: Performed By: #### C BC ####[facility] Xgjkzuuxau4846 [place] [address]Dr. Flaco Branden MCHC (RBC) [Mass/Vol] 33.0 g/dL Normal 29.9-35.2 The [facility] Comment on above: Performed By: #### C BC ####[facility] Cgpijpjgek9702 [place] [address]Dr. Flaco Otero MCV (RBC) [Entitic vol] 85.4 fL Normal 80.0-94.0 The [facility] Comment on above: Performed By: #### C BC ####[facility] Lfkflrukvm2953 [place] [address]Dr. Flaco Otero MONO # 1.4 103/ul Critically high 0.3-0.[address] [facility] Comment on above: Performed By: #### C BC ####[facility] Wmgcfhawnu7488[address] [place], [place] [address]Dr. Flaco Otero Monocytes/100 WBC (Bld) 12.6 % Critically high 1.7-12.0 The [facility] Comment on above: Performed By: #### C BC ####[facility] Avtaxysbyl923[address] [place], [place] [address]Dr. Flaco Otero NEUT # 7.7 103/ul Critically high 1.4-6.[address] [facility] Comment on above: Performed By: #### C BC ####[facility] Lyonjqjhiu58[address] [place], [place] [address]Dr. Flaco Otero Neutrophils/100 WBC (Bld) 71.6 % Normal 43.0-75.0 The [facility] Comment on above: Performed By: #### C BC ####[facility] Syssrispnc[address] [place], [place] [address]Dr. Flaco Otero Platelet mean volume (Bld) [Entitic vol] 9.5 fL Normal 9.5-13.5 The [facility] Comment on above: Performed By: #### C BC ####[facility] Aewovcwjbg[address] [place], [place] [address]Dr. Flaco Otero PLT 462 103/ul Critically high 150-450 [facility] Comment on above: Performed By: #### C BC ####[facility] Eiogcrlpca5406 [place] [address]Dr. Flaco Otero RBC 4.26 106/ul Critically low 4.70-6.10 [facility] Comment on above: Performed By: #### C BC ####[facility] Chsaeqjons2560 [place] [address]Dr. Purviedith Branden WBC 10.8 103/ul Normal 4.0-11.0 [facility] Comment on above: Performed By: #### C BC ####[facility] Gztpvdkhod8724 [place] [address]Dr. Flaco Branden MRI CSPINE WO CONon 11-17-19 23 MRI CSPINE WO CON Normal [facility] PROF 14(COMP METB)on 023 Albumin [Mass/Vol] 2.4 g/dL Critically low 3.4-5.0 [facility] Comment on above: Performed By: #### C MP ####[facility] Nvtmkfpilk8946 [place] [address]Dr. Purviedith Branden Albumin/Globulin [Mass ratio] 0.5 {ratio} Normal [facility] Comment on above: Performed By: #### C MP ####[facility] Wlhfoqchcs2482 [place] [address]Dr. Purviedith Branden ALP [Catalytic activity/Vol] 132 U/L Critically high 46-116 [facility] Comment on above: Performed By: #### C MP ####[facility] Jvzohcanfn4993 [place] [address]Dr. Purviedith Branden ALT [Catalytic activity/Vol] 18 U/L Normal 16-63 [facility] Comment on above: Performed By: #### C MP ####[facility] Mysxuhqxci7642 [place] [address]Dr. Flaco Otero Anion gap [Moles/Vol] 15.7 mmol/L Normal [facility] Comment on above: Performed By: #### C MP ####[facility] Mlfoojhzee7790 [place] [address]Dr. Flaco Otero AST [Catalytic activity/Vol] 26 U/L Normal 15-37 The [facility] Comment on above: Performed By: #### C MP ####[facility] Ksoofhjmwr6582 [place] [address]Dr. Flaco Otero Bilirubin [Mass/Vol] 0.5 mg/dL Normal 0.2-1.0 The [facility] Comment on above: Performed By: #### C MP ####[facility] Jumvloixzb6543 [place] [address]Dr. Flaco Otero Calcium [Mass/Vol] 9.2 mg/dL Normal 8.5-10.1 [facility] Comment on above: Performed By: #### C MP ####[facility] Wvmoyhctkx2915 [place] [address]Dr. Flaco Otero Chloride [Moles/Vol] 99 mmol/L Normal 98-107 The [facility] Comment on above: Performed By: #### C MP ####[facility] Zlbgdcybxi5214 [place] [address]Dr. Flaco Otero CO2 [Moles/Vol] 23.9 mmol/L Normal 21.0-32.0 [facility] Comment on above: Performed By: #### C MP ####[facility] Cuupvamamt0338 [place] [address]Dr. Flaco Otero Creatinine [Mass/Vol] 1.65 mg/dL Critically high 0.70-1.30 The [facility] Comment on above: Performed By: #### C MP ####[facility] Sqxocivgxo1241 [place] [address]Dr. Flaco Branden EGFR-AF [place]IZ[place] 50 mL/min/1.73m2 Critically low >=60 The [facility] Comment on above: Performed By: #### C MP ####[facility] Nueguqofet6406 [place] [address]Dr. Flaco Branden EGFR-NON AF [place]IZ[place] OF [place] 41 mL/min/1.73m2 Critically low >=60 The [facility] Comment on above: Performed By: #### C MP ####[facility] Xsvkrvwxxc5040 [place] [address]Dr. Flaco Branden Globulin (S) [Mass/Vol] 4.5 g/dL Normal [facility] Comment on above: Performed By: #### C MP ####[facility] Bccwkjijqt[address] [place], [place] [address]Dr. Flaco Otero Glucose [Mass/Vol] 116 mg/dL Critically high 74-106 T [facility] Comment on above: Performed By: #### C MP ####[facility] Wxdszgklbp523[address] [place], [place] [address]Dr. Flaco Otero Potassium [Moles/Vol] 3.6 mmol/L Normal 3.5-5.1 [facility] Comment on above: Performed By: #### C MP ####[facility] Zktioisujk905[address] [place], [place] [address]Dr. Flaco Otero Protein [Mass/Vol] 6.9 g/dL Normal 6.4-8.2 [facility] Comment on above: Performed By: #### C MP ####[facility] Wmwtsrtcpg009[address] [place], [place] [address]Dr. Purviedith Otero Sodium [Moles/Vol] 135 mmol/L Critically low 136-145 Th [facility] Comment on above: Performed By: #### C MP ####[facility] Ftkmifvsvi[address] [place], [place] [address]Dr. Flaco Otero Urea nitrogen [Mass/Vol] 21.0 mg/dL Critically high 7.0-18.0 [facility] Comment on above: Performed By: #### C MP ####[facility] Dyuvhusged[address] [place], [place] [address]Dr. Flaco Otero Urea nitrogen/Creatinine [Mass ratio] 12.7 mg/mg Normal [facility] Comment on above: Performed By: #### C MP ####[facility] Tttttkyaap8[address] [place], [place] [address]Dr. Flaco Otero CBC W MANUAL DIFFon 11-16-19 23 ATYPICAL LYMPH # Normal [facility] Comment on above: Performed By: #### C BCMAN ####[facility] Jzbabbrgau87[address] [place], [place] [address]Dr. Flaco Otero ATYPICAL LYMPH % Normal [facility] Comment on above: Performed By: #### C BCMAN ####[facility] Hhtlqakxog7133 [place] [address]Dr. Yilan Otero BAND # 0.0 103/ul Normal 0.0-0.3 The [facility] Comment on above: Performed By: #### C BCMAN ####[facility] Qosfcqcvtv8110 [place] [address]Dr. Yilan Otero BAND % 0 % Normal 0-5 The [facility] Comment on above: Performed By: #### C BCGAYATHRI ####[facility] Wfrftoevyb6666 [place] [address]Dr. Yiedith Otero BASOM # 0.00 103/ul Normal 0.00-0.10 The [facility] Comment on above: Performed By: #### C BCGAYATHRI ####[facility] Abpnjwykqj8[address] [place], [place] [address]Dr. Flaco Otero BASOM % 0.0 % Critically low 0.2-2.0 [facility] Comment on above: Performed By: #### C C[place] ####[facility] Jvavupwwvd8[address] [place], [place] [address]Dr. Yiedith Otero BLAST # Normal The [facility] Comment on above: Performed By: #### C [place] ####[facility] Depqosysma6858 [place] [address]Dr. Flaco Otero BLAST % Normal [facility] Comment on above: Performed By: #### C BCGAYATHRI ####[facility] Nofvowvixi7381 [place] [address]Dr. Flaco Otero CORRECTED WBC Normal 4.0-11.0 [facility] Comment on above: Performed By: #### C [place] ####[facility] Xnwtdpeiqa225[address] [place], [place] [address]Dr. Flaco Otero EOS # 0.00 103/ul Normal 0.00-0.70 The [facility] Comment on above: Performed By: #### C [place] ####[facility] Vfvqdyatlf[address] [place], [place] [address]Dr. Flaco Otero EOS% 0.0 % Critically low 0.9-7.0 [facility] Comment on above: Performed By: #### C [place] ####[facility] Oyawldefxg8448 [place] [address]Dr. Flaco Otero HCT 35.9 % Critically low 42.0-54.0 [facility] Comment on above: Performed By: #### C [place] ####[facility] Cppqrustts2022 [place] [address]Dr. Flaco Otero HGB 12.0 g/dl Critically low 14.0-18.0 [facility] Comment on above: Performed By: #### C [place] ####[facility] Lqaoktcszw7163 [place] [address]Dr. Flaco Otero LYMPHM # 1.42 103/ul Normal 1.20-3.80 [facility] Comment on above: Performed By: #### C [place] ####[facility] Nwpkmejaxy6759 [place] [address]Dr. Flaco Otero LYMPHM% 11.0 % Critically low 20.5-60.0 [facility] Comment on above: Performed By: #### C [place] ####[facility] Ugktoqfvcx2110 [place] [address]Dr. Flaco Otero MCH 28.6 pg Normal 25.9-34.0 The [facility] Comment on above: Performed By: #### C [place] ####[facility] Eepzcnzpiw1469 [place] [address]Dr. Flaco Otero MCHC 33.4 g/dl Normal 29.9-35.2 The [facility] Comment on above: Performed By: #### C [place] ####[facility] Cyzefcljqk0815 [place] [address]Dr. Flaco Otero MCV 85.5 fL Normal 80.0-94.0 The [facility] Comment on above: Performed By: #### C [place] ####[facility] Xieciyybgp2791 [place] [address]Dr. Flaco Otero METAMYELOCYTE # Normal [facility] Comment on above: Performed By: #### C BCGAYATHRI ####[facility] Wxidpgnzsa6248 [place], [place] [address]Gm. Flaco Otero METAMYELOCYTE % Normal [facility] Comment on above: Performed By: #### C BCGAYATHRI ####[facility] Yxaadsjule1992 [place], [place] [address]Gh. Flaco Otero MONOM# 1.42 103/ul Critically high 0.30-0.80 [facility] Comment on above: Performed By: #### C [place] ####[facility] Oqvnnzrvbg6846 [place], [place] [address]Ww. Flaco Otero MONOM% 11.0 % Normal 1.7-12.0 [facility] Comment on above: Performed By: #### C [place] ####[facility] Jtqonqpqlg8058 [place] [address]Dr. Flaco Otero MPV 9.5 fL Normal 9.5-13.5 [facility] Comment on above: Performed By: #### C [place] ####[facility] Pirtoisdoj7285 [place], [place] [address]Pp. Flaco Otero MYELOCYTE # Normal [facility] Comment on above: Performed By: #### C [place] ####[facility] Mdicsqvafn1237 [place], [place] [address]Qs. Flaco Otero MYELOCYTE % Normal [facility] Comment on above: Performed By: #### C [place] ####[facility] Xdpalaegga7535 [place] [address]Dr. Flaco Otero NRBC Normal [facility] Comment on above: Performed By: #### C [place] ####[facility] Ojyhyifzxw2993 [place] [address]Dr. Flaco Otero PLT 469 103/ul Critically high 150-[address] [facility] Comment on above: Performed By: #### C [place] ####[facility] Naocirimlm1225 [place] [address]Dr. Flaco Otero RBC 4.20 106/ul Critically low 4.70-6.[address] [facility] Comment on above: Performed By: #### C WERNERMAN ####[facility] Ztkpplyoiz9741 [place], [place] [address]Iu. Flaco Otero RDW 16.3 % Critically high 11.0-15.[address] [facility] Comment on above: Performed By: #### C WERNERMAN ####[facility] Tdqppuufdh1438 [place], [place] [address]Ru. Flaco Otero SEG # 10.06 103/ul Critically high 1.40-6.50 [facility] Comment on above: Performed By: #### C [place] ####[facility] Hvwyyfwwji4259 [place], [place] [address]Eg. Flaco Otero SEG % 78.0 % Critically high 43.0-75.[address] [facility] Comment on above: Performed By: #### C [place] ####[facility] Hqftnaovwj9368 [place], [place] [address]Mk. Flaco Otero WBC 12.9 103/ul Critically high 4.0-11.0 [facility] Comment on above: Performed By: #### C [place] ####[facility] Gqbxmvayae9279 [place] [address]DrJeramie Otero PROF 14(COMP METB)on 023 Albumin [Mass/Vol] 2.5 g/dL Critically low 3.4-5.0 [facility] Comment on above: Performed By: #### C MP ####[facility] Fjsmkgujoy1319 [place] [address]DrJeramie Otero Albumin/Globulin [Mass ratio] 0.6 {ratio} Normal [facility] Comment on above: Performed By: #### C MP ####[facility] Bbgbiuerhn0035 [place] [address]DrJeramie Otero ALP [Catalytic activity/Vol] 118 U/L Critically high 46-116 [facility] Comment on above: Performed By: #### C MP ####[facility] Jcyrqbdoxo9348 [place], [place] [address]TpJeramie Otero ALT [Catalytic activity/Vol] 12 U/L Critically low 16-63 [facility] Comment on above: Performed By: #### C MP ####[facility] Sgxjmsrdcp1770 [place] [address]Dr. Flaco Otero Anion gap [Moles/Vol] 15.8 mmol/L Normal Th e [facility] Comment on above: Performed By: #### C MP ####[facility] Xyynjmzkpq3333 [place], [place] [address]Mv. Flaco Otero AST [Catalytic activity/Vol] 22 U/L Normal 15-37 [facility] Comment on above: Performed By: #### C MP ####[facility] Hfceaffosb8788 [place], [place] [address]Vm. Flaco Branden Bilirubin [Mass/Vol] 0.8 mg/dL Normal 0.2-1.0 [facility] Comment on above: Performed By: #### C MP ####[facility] Rzobaktjki9063 [place] [address]Dr. Purviedith Branden Calcium [Mass/Vol] 8.9 mg/dL Normal 8.5-10.1 [facility] Comment on above: Performed By: #### C MP ####[facility] Vefhbbvpex5564 [place] [address]Dr. Purviedith Otero Chloride [Moles/Vol] 97 mmol/L Critically low 98-107 The [facility] Comment on above: Performed By: #### C MP ####[facility] Tvbtjgcoyy43[address] [place] [id number]. Purviedith Branden CO2 [Moles/Vol] 22.8 mmol/L Normal 21.0-32.0 [facility] Comment on above: Performed By: #### C MP ####[facility] Qfpilqonbs8595 [place] [id number]. Flaco Branden Creatinine [Mass/Vol] 1.64 mg/dL Critically high 0.70-1.30 [facility] Comment on above: Performed By: #### C MP ####[facility] Dsmolvhpct3989 [place] [id number]. Purviedith Branden EGFR-AF CITIZEN OF [place] 50 mL/min/1.73m2 Critically low >=60 [facility] Comment on above: Performed By: #### C MP ####[facility] Ukymxypzkh1164 [place] [address]Dr. Flaco Otero EGFR-NON AF CITIZEN OF [place] 42 mL/min/1.73m2 Critically low >=60 [facility] Comment on above: Performed By: #### C MP ####[facility] Hpmbaokmgz1050 [place] [id number]. Flaco Otero Globulin (S) [Mass/Vol] 4.2 g/dL Normal [facility] Comment on above: Performed By: #### C MP ####[facility] Zyjsamacqg7733 [place] [id number]. Flaco Otero Glucose [Mass/Vol] 110 mg/dL Critically high 74-106 T [facility] Comment on above: Performed By: #### C MP ####[facility] Joxzlkrgvi7504 [place] [id number]. Flaco Branden Potassium [Moles/Vol] 3.6 mmol/L Normal 3.5-5.1 [facility] Comment on above: Performed By: #### C MP ####[facility] Seykkavboe5483 [place] [address]Dr. Flaco Otero Protein [Mass/Vol] 6.7 g/dL Normal 6.4-8.2 [facility] Comment on above: Performed By: #### C MP ####[facility] Lwdzbbzjuc6097 [place] [address]Dr. Flaco Otero Sodium [Moles/Vol] 132 mmol/L Critically low 136-145 Th [facility] Comment on above: Performed By: #### C MP ####[facility] Bfykozvszw3717 [place] [address]Dr. Flaco Branden Urea nitrogen [Mass/Vol] 20.0 mg/dL Critically high 7.0-18.0 [facility] Comment on above: Performed By: #### C MP ####[facility] Ovnqzvudtk7069 [place] [id number]. Purviedith Branden Urea nitrogen/Creatinine [Mass ratio] 12.2 mg/mg Normal [facility] Comment on above: Performed By: #### C MP ####[facility] Qxcxtndrvg187[address] [place], [place] [address]Dr. Flaco Branden AMMONIAon 11-15-2022 Ammonia (P) [Moles/Vol] 22 umol/L Normal 11-32 [facility] Comment on above: Performed By: #### A MM ####[facility] Sxdhgfcvrk855[address] [place], [place] [address]Dr. Flaco Otero CBC AUTO DIFFon 11-15-2022 BASO # 0.0 103/ul Normal 0.0-0.1 [facility] Comment on above: Performed By: #### C BC ####[facility] Ogayulamcv64[address] [place], [place] [address]DrJeramie tOero Basophils/100 WBC (Bld) 0.3 % Normal 0.2-2.0 [facility] Comment on above: Performed By: #### C BC ####[facility] Aoptliagsu719[address] [place], [place] [address]Dr. Flaco Otero EO # 0.0 103/ul Normal 0.0-0.7 [facility] Comment on above: Performed By: #### C BC ####[facility] Dzdayuzrfc916[address] [place], [place] [address]DrJeramie Otero Eosinophils/100 WBC (Bld) 0.3 % Critically low 0.9-7.0 [facility] Comment on above: Performed By: #### C BC ####[facility] Rvdquwiokf81999[address] [place], [place] [address]Dr. Flaco Otero Erythrocyte distribution width (RBC) [Ratio] 16.3 % Critically high 11.0-15.0 [facility] Comment on above: Performed By: #### C BC ####[facility] Wcpetthwej5099[address] [place], [place] [address]DrJeramie Otero Hematocrit (Bld) [Volume fraction] 39.2 % Critically low 42.0-54.0 [facility] Comment on above: Performed By: #### C BC ####[facility] Tkrlfklvxv912[address] [place], [place] [address]Dr. Flaco Otero Hemoglobin (Bld) [Mass/Vol] 12.9 g/dL Critically low 14.0-18.0 [facility] Comment on above: Performed By: #### C BC ####[facility] Duimemlvnl2724 [place] [address]Dr. Flaco Otero IG # 0.05 10e3/ul Critically high 0.00-0.03 [facility] Comment on above: Performed By: #### C BC ####[facility] Fvrfpiapuo2430 [place] [address]Dr. Flaco Otero IG % 0.4 % Normal 0.0-0.5 [facility] Comment on above: Performed By: #### C BC ####[facility] Inwjdaobjx4315[address] [place], [place] [address]Dr. Flaco Otero LYMPH # 1.6 103/ul Normal 1.2-3.8 [facility] Comment on above: Performed By: #### C BC ####[facility] Zdqxrdnwpe335[address] [place], [place] [address]Dr. Flaco Otero Lymphocytes/100 WBC (Bld) 12.5 % Critically low 20.5-60.0 [facility] Comment on above: Performed By: #### C BC ####[facility] Jsvcnbgygo837[address] [place], [place] [address]Dr. Flaco Otero MANUAL DIFF REQ NO Normal [facility] Comment on above: Performed By: #### C BC ####[facility] Cdtskvjlpv889498 [address] [place], [place] [address]Dr. Flaco Otero MCH (RBC) [Entitic mass] 28.7 pg Normal 25.9-34.0 [facility] Comment on above: Performed By: #### C BC ####[facility] Uifgqugzon236[address] [place], [place] [address]Dr. Flaco Otero MCHC (RBC) [Mass/Vol] 32.9 g/dL Normal 29.9-35.2 [facility] Comment on above: Performed By: #### C BC ####[facility] Hvwjyfjfhz847[address] [place], [place] [address]Dr. Flaco Otero MCV (RBC) [Entitic vol] 87.1 fL Normal 80.0-94.0 [facility] Comment on above: Performed By: #### C BC ####[facility] Fskxvqjdro6029 [place] [address]Dr. Flaco Otero MONO # 1.4 103/ul Critically high 0.3-0.[address] [facility] Comment on above: Performed By: #### C BC ####[facility] Jacnbdkass6453 [place] [address]Dr. Flaco Branden Monocytes/100 WBC (Bld) 11.2 % Normal 1.7-12.0 [facility] Comment on above: Performed By: #### C BC ####[facility] Enxgthsdui320[address] [place], [place] [address]Dr. Flaco Otero NEUT # 9.4 103/ul Critically high 1.4-6.[address] [facility] Comment on above: Performed By: #### C BC ####[facility] Irdglirhfh65[address] [place], [place] [address]Dr. Flaco Branden Neutrophils/100 WBC (Bld) 75.3 % Critically high 43.0-75.0 [facility] Comment on above: Performed By: #### C BC ####[facility] Uxhfuqvwyi195[address] [place], [place] [address]Dr. Flaco Branden Platelet mean volume (Bld) [Entitic vol] 9.3 fL Critically low 9.5-13.5 [facility] Comment on above: Performed By: #### C BC ####[facility] Golaazrkso9540 [place] [address]Dr. Purviedith Branden PLT 532 103/ul Critically high 150-[address] [facility] Comment on above: Performed By: #### C BC ####[facility] Ykqivedkhr717[address] [place], [place] [address]Dr. Flaco Otero RBC 4.50 106/ul Critically low 4.70-6.[address] [facility] Comment on above: Performed By: #### C BC ####[facility] Ssowtvztik309[address] [place], [place] [address]Dr. Flaco Otero WBC 12.5 103/ul Critically high 4.0-11.0 [facility] Comment on above: Performed By: #### C BC ####[facility] Pgacryqdah1518 [place] [address]Dr. Flaco Otero PROF 14(COMP METB)on 023 Albumin [Mass/Vol] 3.0 g/dL Critically low 3.4-5.0 [facility] Comment on above: Performed By: #### C MP ####[facility] Ocmifbkuwy0764 [place] [address]Dr. Flaco Otero Albumin/Globulin [Mass ratio] 0.5 {ratio} Normal [facility] Comment on above: Performed By: #### C MP ####[facility] Qbugiwgugq657198 [address] [place], [place] [address]Dr. Flaco Otero ALP [Catalytic activity/Vol] 103 U/L Normal 46-116 [facility] Comment on above: Performed By: #### C MP ####[facility] Pqecjecwha720[address] [place], [place] [address]Dr. Flaco Otero ALT [Catalytic activity/Vol] 12 U/L Critically low 16-63 [facility] Comment on above: Performed By: #### C MP ####[facility] Chjktjeutw9868[address] [place], [place] [address]Dr. Flaco Otero Anion gap [Moles/Vol] 16.8 mmol/L Normal [facility] Comment on above: Performed By: #### C MP ####[facility] Rgzqlnujku948[address] [place], [place] [address]Dr. Flaco Otero AST [Catalytic activity/Vol] 16 U/L Normal 15-37 [facility] Comment on above: Performed By: #### C MP ####[facility] Vhjwpgrfuh05[address] [place], [place] [address]Dr. Flaco Otero Bilirubin [Mass/Vol] 1.0 mg/dL Normal 0.2-1.0 [facility] Comment on above: Performed By: #### C MP ####[facility] Jwgujtnqbu313[address] [place], [place] [address]Dr. Flaco Otero Calcium [Mass/Vol] 9.8 mg/dL Normal 8.5-10.1 [facility] Comment on above: Performed By: #### C MP ####[facility] Fntzuruiur0599 [place] [address]Dr. Flaco Otero Chloride [Moles/Vol] 98 mmol/L Normal 98-107 [facility] Comment on above: Performed By: #### C MP ####[facility] Bippjgcrmy35[address] [place], [place] [address]Dr. Flaco Otero CO2 [Moles/Vol] 24.3 mmol/L Normal 21.0-32.0 [facility] Comment on above: Performed By: #### C MP ####[facility] Yrbljnfpir849[address] [place], [place] [address]Dr. Flaco Otero Creatinine [Mass/Vol] 1.86 mg/dL Critically high 0.70-1.30 [facility] Comment on above: Performed By: #### C MP ####[facility] Hdbwxonrzu41969[address] [place], [place] [address]Dr. Flaco Otero EGFR-AF CITIZ[place] OF [place] 44 mL/min/1.73m2 Critically low >=60 [facility] Comment on above: Performed By: #### C MP ####[facility] Cvfyxbhdgp9[address] [place], [place] [address]Dr. Flaco Otero EGFR-NON AF CITIZEN OF [place] 36 mL/min/1.73m2 Critically low >=60 [facility] Comment on above: Performed By: #### C MP ####[facility] Djxsgcitki0907 [place] [address]Dr. Flaco Otero Globulin (S) [Mass/Vol] 5.6 g/dL Normal [facility] Comment on above: Performed By: #### C MP ####[facility] Zyjqvyyakp7[address] [place], [place] [address]Dr. Flaco Otero Glucose [Mass/Vol] 108 mg/dL Critically high 74-106 T [facility] Comment on above: Performed By: #### C MP ####[facility] Dtllfkgnsx4870[address] [place], [place] [address]Dr. Flaco Otero Potassium [Moles/Vol] 4.1 mmol/L Normal 3.5-5.1 [facility] Comment on above: Performed By: #### C MP ####[facility] Rbnwhinigc3364 [place] [address]Dr. Flaco Otero Protein [Mass/Vol] 8.6 g/dL Critically high 6.4-8.2 [facility] Comment on above: Performed By: #### C MP ####[facility] Wkvdmcrjzx7877 [place] [address]Dr. Flaco Otero Sodium [Moles/Vol] 135 mmol/L Critically low 136-145 Th [facility] Comment on above: Performed By: #### C MP ####[facility] Xsbnklyxyx076[address] [place], [place] [address]Dr. Flaco Otero Urea nitrogen [Mass/Vol] 18.0 mg/dL Normal 7.0-18.0 [facility] Comment on above: Performed By: #### C MP ####[facility] Ltooktvbnr719198 [address] [place], [place] [address]Dr. Flaco Otero Urea nitrogen/Creatinine [Mass ratio] 9.7 mg/mg Normal [facility] Comment on above: Performed By: #### C MP ####[facility] Grijdueurr9577[address] [place], [place] [address]Dr. Flaco Otero CT HEAD WO CONon 11-14-2022 CT HEAD WO CON Normal [facility] MRI LSPINE WO CONon 11-14-19 MRI LSPINE WO CON Normal [facility] CBC AUTO DIFFon 11-13-2022 BASO # 0.0 103/ul Normal 0.0-0.1 [facility] Comment on above: Performed By: #### C BC ####[facility] Jaxzziekvn093[address] [place], [place] [address]Dr. Flaco Otero Basophils/100 WBC (Bld) 0.4 % Normal 0.2-2.0 [facility] Comment on above: Performed By: #### C BC ####[facility] Hqectdcyup5410[address] [place], [place] [address]Dr. Flaco Otero EO # 0.1 103/ul Normal 0.0-0.7 [facility] Comment on above: Performed By: #### C BC ####[facility] Gldubnowdw0549 [place] [address]DrJeramie Otero Eosinophils/100 WBC (Bld) 1.0 % Normal 0.9-7.0 [facility] Comment on above: Performed By: #### C BC ####[facility] Dscawtjsaa5088[address] [place], [place] [address]Dr. Flaco Otero Erythrocyte distribution width (RBC) [Ratio] 15.9 % Critically high 11.0-15.0 [facility] Comment on above: Performed By: #### C BC ####[facility] Gldnucuwyk508[address] [place], [place] [address]Dr. Flaco Otero Hematocrit (Bld) [Volume fraction] 35.9 % Critically low 42.0-54.0 [facility] Comment on above: Performed By: #### C BC ####[facility] Mrmmereahm1988[address] [place], [place] [address]Dr. Flaco Otero Hemoglobin (Bld) [Mass/Vol] 11.9 g/dL Critically low 14.0-18.0 [facility] Comment on above: Performed By: #### C BC ####[facility] Glaivkizvk232[address] [place], [place] [address]Dr. Flaco Otero IG # 0.03 10e3/ul Normal 0.00-0.03 [facility] Comment on above: Performed By: #### C BC ####[facility] Omudqrblcm7464[address] [place], [place] [address]Dr. Flaco Otero IG % 0.4 % Normal 0.0-0.5 [facility] Comment on above: Performed By: #### C BC ####[facility] Segqonfews393198 [address] [place], [place] [address]DrJeramie Flaco Otero LYMPH # 1.8 103/ul Normal 1.2-3.8 [facility] Comment on above: Performed By: #### C BC ####[facility] Uozfpxicwv585[address] [place], [place] [address]Dr. Flaco Otero Lymphocytes/100 WBC (Bld) 22.2 % Normal 20.5-60.0 [facility] Comment on above: Performed By: #### C BC ####[facility] Kvwzrldpqf8061 [place] [address]DrJeramie Otero MANUAL DIFF REQ NO Normal [facility] Comment on above: Performed By: #### C BC ####[facility] Xsnzieyiyi3871 [place] [address]Dr. Flaco Otero MCH (RBC) [Entitic mass] 28.8 pg Normal 25.9-34.0 [facility] Comment on above: Performed By: #### C BC ####[facility] Ialqckqqxa8045[address] [place], [place] [address]Dr. Flaco Otero MCHC (RBC) [Mass/Vol] 33.1 g/dL Normal 29.9-35.2 [facility] Comment on above: Performed By: #### C BC ####[facility] Ultswwlffu005[address] [place], [place] [address]Dr. Flaco Otero MCV (RBC) [Entitic vol] 86.9 fL Normal 80.0-94.0 [facility] Comment on above: Performed By: #### C BC ####[facility] Rpvjxigvmk0164[address] [place], [place] [address]Dr. Flaco Otero MONO # 1.0 103/ul Critically high 0.3-0.[address] [facility] Comment on above: Performed By: #### C BC ####[facility] Lllokhzywy115[address] [place], [place] [address]DrJeramie Otero Monocytes/100 WBC (Bld) 13.0 % Critically high 1.7-12.0 [facility] Comment on above: Performed By: #### C BC ####[facility] Imjmudgglc440[address] [place], [place] [address]DrJeramie Otero NEUT # 5.0 103/ul Normal 1.4-6.5 [facility] Comment on above: Performed By: #### C BC ####[facility] Yeapcylchx920498 [address] [place], [place] [address]Dr. Flaco Otero Neutrophils/100 WBC (Bld) 63.0 % Normal 43.0-75.0 [facility] Comment on above: Performed By: #### C BC ####[facility] Lywbkmjlte810[address] [place], [place] [address]Dr. Flaco Otero Platelet mean volume (Bld) [Entitic vol] 9.5 fL Normal 9.5-13.5 [facility] Comment on above: Performed By: #### C BC ####[facility] Lklglnqeom6961 [place] [address]Dr. Flaco Branden PLT 335 103/ul Normal 150-450 [facility] Comment on above: Performed By: #### C BC ####[facility] Xnmxdrxziz3112[address] [place], [place] [address]Dr. Purviedith Branden RBC 4.13 106/ul Critically low 4.70-6.[address] [facility] Comment on above: Performed By: #### C BC ####[facility] Zltvchipul309198 [address] [place], [place] [address]Dr. Purviedith Branden WBC 7.9 103/ul Normal 4.0-11.0 [facility] Comment on above: Performed By: #### C BC ####[facility] Erezrojdbb594[address] [place], [place] [address]DrJeramie Flaco Branden ER URINE PROFILEon 3 Bilirubin Ql (U) Negative Normal NEGATIVE [facility] Comment on above: Performed By: #### E RUR ####[facility] Uptvwjhkkj478[address] [place], [place] [address]DrJeramie Otero Clarity (U) CLEAR Normal CLEAR [facility] Comment on above: Performed By: #### E RUR ####[facility] Yallhtfnuj714[address] [place], [place] [address]Dr. Flaco Otero Color (U) LT. YELLOW Normal YELLOW [facility] Comment on above: Performed By: #### E RUR ####[facility] Mnqdzymnlq538[address] [place], [place] [address]Dr. Flaco Otero ERUAHD A micrscopic examination will be performed if indicated. Normal [facility] Comment on above: Performed By: #### E RUR ####[facility] Izxenweujf1692 [place] [address]Dr. Flaco Otero Glucose Ql (U) Negative Normal NEGATIVE [facility] Comment on above: Performed By: #### E RUR ####[facility] Levxwpfaqo072[address] [place], [place] [address]Dr. Flaco Otero Hemoglobin Ql (U) Negative Normal NEGATIVE [facility] Comment on above: Performed By: #### E RUR ####[facility] Xtcushjzzg404[address] [place], [place] [address]Dr. Flaco Otero Ketones Ql (U) Negative Normal NEGATIVE [facility] Comment on above: Performed By: #### E RUR ####[facility] Pvhgdiixog270[address] [place], [place] [address]Dr. Flaco Otero LEUKOCYTES Negative Normal NEGATIVE [facility] Comment on above: Performed By: #### E RUR ####[facility] Xdjclsixoy250[address] [place], [place] [address]Dr. Flaco Otero Nitrite Ql (U) Negative Normal NEGATIVE [facility] Comment on above: Performed By: #### E RUR ####[facility] Oykwnbxmpa583[address] [place], [place] [address]Dr. Flaco Otero pH (U) 5.5 [pH] Normal 5-9 [facility] Comment on above: Performed By: #### E RUR ####[facility] Ilhcqvyqrx7570[address] [place], [place] [address]Dr. Flaco Otero SPEC GRAVITY <=1.005 Abnormal 1.005-<=1.[address] [place] [address] Comment on above: Performed By: #### E RUR ####[facility] Pnqryfuacu3725[address] [place], [place] [address]Dr. Flaco Otero UA PROTEIN Negative Normal NEGATIVE/ TRACE [facility] Comment on above: Performed By: #### E RUR ####[facility] Geqewerhxq535[address] [place], [place] [address]Dr. Purviedith Branden UR MICRO IND NOT INDICATED Normal [facility] Comment on above: Performed By: #### E RUR ####[facility] Qqdxdbyrgd8591 [place] [address]Dr. Flaco Otero Urobilinogen Qn (U) 0.2 {Tuan'U}/dL Normal 0.2 - 1. 0 [facility] Comment on above: Performed By: #### E RUR ####[facility] Ukrudpvmyc663[address] [place], [place] [address]Dr. Flaco Otero PROF CHEM 8 (BAS METB)on Anion gap [Moles/Vol] 13.6 mmol/L Normal [facility] Comment on above: Performed By: #### B MP ####[facility] Hejtcsnyvg427[address] [place], [place] [address]Dr. Flaco Otero Calcium [Mass/Vol] 9.2 mg/dL Normal 8.5-10.1 [facility] Comment on above: Performed By: #### B MP ####[facility] Zjzqzxdvpw29[address] [place], [place] [address]Dr. Flaco Otero Chloride [Moles/Vol] 104 mmol/L Normal 98-107 [facility] Comment on above: Performed By: #### B MP ####[facility] Vkgnzbgpto326[address] [place], [place] [address]Dr. Flaco Otero CO2 [Moles/Vol] 24.9 mmol/L Normal 21.0-32.0 [facility] Comment on above: Performed By: #### B MP ####[facility] Dempocryuy788[address] [place], [place] [address]Dr. Flaco Otero Creatinine [Mass/Vol] 1.59 mg/dL Critically high 0.70-1.30 [facility] Comment on above: Performed By: #### B MP ####[facility] Nkouljxoxn386[address] [place], [place] [address]Dr. Flaco Otero EGFR-AF CITIZEN OF [place] 52 mL/min/1.73m2 Critically low >=60 [facility] Comment on above: Performed By: #### B MP ####[facility] Ysxlymqtur36[address] [place], [place] [address]Dr. Flaco Otero EGFR-NON AF CITIZEN OF [place] 43 mL/min/1.73m2 Critically low >=60 [facility] Comment on above: Performed By: #### B MP ####[facility] Jkdtszexln8890 [place] [address]Dr. Flaco Otero Glucose [Mass/Vol] 119 mg/dL Critically high 74-106 T [facility] Comment on above: Performed By: #### B MP ####[facility] Bavvepnpkp2758 [place] [address]Dr. Flaco Otero Potassium [Moles/Vol] 3.5 mmol/L Normal 3.5-5.1 [facility] Comment on above: Performed By: #### B MP ####[facility] Qtakdiaawt140[address] [place], [place] [address]Dr. Flaco Otero Sodium [Moles/Vol] 139 mmol/L Normal 136-145 [facility] Comment on above: Performed By: #### B MP ####[facility] Dbrkvwenar057[address] [place], [place] [address]Dr. Flaco Otero Urea nitrogen [Mass/Vol] 12.0 mg/dL Normal 7.0-18.0 [facility] Comment on above: Performed By: #### B MP ####[facility] Mucpjrpmcy[address] [place], [place] [address]Dr. Flaco Otero Urea nitrogen/Creatinine [Mass ratio] 7.5 mg/mg Normal [facility] Comment on above: Performed By: #### B MP ####[facility] Zfvstqxqhs20[address] [place], [place] [address]Dr. Flaco Otero CBC AUTO DIFFon 11-12-2022 BASO # 0.0 103/ul Normal 0.0-0.1 [facility] Comment on above: Performed By: #### C BC ####[facility] Eiwrzbjbvw[address] [place], [place] [address]Dr. Flaco Otero Basophils/100 WBC (Bld) 0.4 % Normal 0.2-2.0 [facility] Comment on above: Performed By: #### C BC ####[facility] Ufydxqclbd[address] [place], [place] [address]Dr. Flaco Otero EO # 0.1 103/ul Normal 0.0-0.7 [facility] Comment on above: Performed By: #### C BC ####[facility] Wtdkcdjhmq34[address] [place] [address]Dr. Flaco Otero Eosinophils/100 WBC (Bld) 0.6 % Critically low 0.9-7.0 [facility] Comment on above: Performed By: #### C BC ####[facility] Eyrcpodbim8[address] [place], [place] [address]Dr. Flaco Otero Erythrocyte distribution width (RBC) [Ratio] 15.9 % Critically high 11.0-15.0 [facility] Comment on above: Performed By: #### C BC ####[facility] Pemqafkfza[address] [place], [place] [address]Dr. Flaco Otero Hematocrit (Bld) [Volume fraction] 36.0 % Critically low 42.0-54.0 [facility] Comment on above: Performed By: #### C BC ####[facility] Hbwxyqnfjq2030[address] [place], [place] [address]Dr. Flaco Otero Hemoglobin (Bld) [Mass/Vol] 11.9 g/dL Critically low 14.0-18.0 [facility] Comment on above: Performed By: #### C BC ####[facility] Fplgeoogqz32[address] [place], [place] [address]Dr. Flaco Otero IG # 0.03 10e3/ul Normal 0.00-0.03 [facility] Comment on above: Performed By: #### C BC ####[facility] Qkazepzaxn[address] [place], [place] [address]Dr. Flaco Otero IG % 0.3 % Normal 0.0-0.5 [facility] Comment on above: Performed By: #### C BC ####[facility] Wtxjkirzao916[address] [place], [place] [address]Dr. Flaco Otero LYMPH # 1.9 103/ul Normal 1.2-3.8 [facility] Comment on above: Performed By: #### C BC ####[facility] Weehtkwens7518[address] [place], [place] [address]Dr. Flaco Otero Lymphocytes/100 WBC (Bld) 19.3 % Critically low 20.5-60.0 [facility] Comment on above: Performed By: #### C BC ####[facility] Mfijiyened6160 [place] [address]Dr. Flaco Otero MANUAL DIFF REQ NO Normal [facility] Comment on above: Performed By: #### C BC ####[facility] Rkhvkpqryj4669 [place] [address]Dr. Flaco Otero MCH (RBC) [Entitic mass] 28.6 pg Normal 25.9-34.0 [facility] Comment on above: Performed By: #### C BC ####[facility] Mopeirlzak34[address] [place], [place] [address]Dr. Flaco Otero MCHC (RBC) [Mass/Vol] 33.1 g/dL Normal 29.9-35.2 [facility] Comment on above: Performed By: #### C BC ####[facility] Bpbwwzqjmi094[address] [place], [place] [address]Dr. Flaco Otero MCV (RBC) [Entitic vol] 86.5 fL Normal 80.0-94.0 [facility] Comment on above: Performed By: #### C BC ####[facility] Gpiffbwnjf8509 [place] [address]Dr. Flaco Otero MONO # 1.2 103/ul Critically high 0.3-0.[address] [facility] Comment on above: Performed By: #### C BC ####[facility] Smegogxymz0587[address] [place], [place] [address]Dr. Flaco Otero Monocytes/100 WBC (Bld) 12.5 % Critically high 1.7-12.0 [facility] Comment on above: Performed By: #### C BC ####[facility] Lngtsablfg165[address] [place], [place] [address]Dr. Flaco Otero NEUT # 6.5 103/ul Normal 1.4-6.5 [facility] Comment on above: Performed By: #### C BC ####[facility] Sdrukrthrc9340[address] [place], [place] [address]Dr. Flaco Otero Neutrophils/100 WBC (Bld) 66.9 % Normal 43.0-75.0 [facility] Comment on above: Performed By: #### C BC ####[facility] Ihdjknnpjj2897 [place] [address]Dr. Flaco Otero Platelet mean volume (Bld) [Entitic vol] 9.6 fL Normal 9.5-13.5 [facility] Comment on above: Performed By: #### C BC ####[facility] Wontottfpr4957 [place] [address]Dr. Flaco Branden PLT 345 103/ul Normal 150-450 [facility] Comment on above: Performed By: #### C BC ####[facility] Rslrrxmgzd3398 [place] [address]Dr. Flaco Branden RBC 4.16 106/ul Critically low 4.70-6.[address] [facility] Comment on above: Performed By: #### C BC ####[facility] Booxgheaef1046 [place] [address]Dr. Flaco Otero WBC 9.7 103/ul Normal 4.0-11.0 [facility] Comment on above: Performed By: #### C BC ####[facility] Bsejotvffu9162 [place] [address]Dr. Flaco Otero ECHOCARDIO M/2D COMPLETEon 0 11-12-2022 ECHOCARDIO M/2D COMPLETE Normal [facility] MRA NECK WO CONon 11-12-2022 MRA NECK WO CON Normal [facility] MRI BRAIN WO CONon MRI BRAIN WO CON Normal [facility] PROF CHEM 8 (BAS METB)on Anion gap [Moles/Vol] 12.7 mmol/L Normal [facility] Comment on above: Performed By: #### B MP ####[facility] Hmdnrwwtxv3403 [place] [address]Dr. Flaco Branden Calcium [Mass/Vol] 8.8 mg/dL Normal 8.5-10.1 [facility] Comment on above: Performed By: #### B MP ####[facility] Nwcajjcfvs7173 [place] [address]Dr. Flaco Otero Chloride [Moles/Vol] 102 mmol/L Normal 98-107 [facility] Comment on above: Performed By: #### B MP ####[facility] Plzawwrfxe3110 [place] [address]Dr. Flaco Otero CO2 [Moles/Vol] 24.9 mmol/L Normal 21.0-32.0 [facility] Comment on above: Performed By: #### B MP ####[facility] Kbrxeweylz8275 [place] [address]Dr. Flaco Otero Creatinine [Mass/Vol] 1.58 mg/dL Critically high 0.70-1.30 [facility] Comment on above: Performed By: #### B MP ####[facility] Bopszalknq966[address] [place], [place] [address]Dr. Flaco Otero EGFR-AF CITIZEN [place] 53 mL/min/1.73m2 Critically low >=60 [facility] Comment on above: Performed By: #### B MP ####[facility] Qywpciidmx5668[address] [place], [place] [address]Dr. Flaco Branden EGFR-NON AF CITIZEN OF [place] 43 mL/min/1.73m2 Critically low >=60 [facility] Comment on above: Performed By: #### B MP ####[facility] Plibofdxjj177[address] [place], [place] [address]Dr. Purviedith Otero Glucose [Mass/Vol] 107 mg/dL Critically high 74-106 [facility] Comment on above: Performed By: #### B MP ####[facility] Svvrxkzvhk969[address] [place], [place] [address]Dr. Flaco Otero Potassium [Moles/Vol] 3.6 mmol/L Normal 3.5-5.1 [facility] Comment on above: Performed By: #### B MP ####[facility] Ryxvyvrfxa6779 [place] [address]Dr. Flaco Otero Sodium [Moles/Vol] 136 mmol/L Normal 136-145 [facility] Comment on above: Performed By: #### B MP ####[facility] Pmxlantmfb7283 [place] [address]Dr. Flaco Otero Urea nitrogen [Mass/Vol] 10.0 mg/dL Normal 7.0-18.0 [facility] Comment on above: Performed By: #### B MP ####[facility] Rbykdluvpf[address] [place], [place] [address]Dr. Flaco Branden Urea nitrogen/Creatinine [Mass ratio] 6.3 mg/mg Normal [facility] Comment on above: Performed By: #### B MP ####[facility] Dnrynvjfni15[address] [place], [place] [address]Dr. Flaco Branden CBC AUTO DIFFon 11-11-2022 BASO # 0.0 103/ul Normal 0.0-0.1 [facility] Comment on above: Performed By: #### C BC ####[facility] Mitwsiiida8813[address] [place], [place] [address]Dr. Flaco Otero Basophils/100 WBC (Bld) 0.4 % Normal 0.2-2.0 [facility] Comment on above: Performed By: #### C BC ####[facility] Btsgoxyaml710[address] [place], [place] [address]Dr. Purviedith Otero EO # 0.1 103/ul Normal 0.0-0.7 [facility] Comment on above: Performed By: #### C BC ####[facility] Ocgfovrmjm154[address] [place], [place] [address]Dr. Flaco Otero Eosinophils/100 WBC (Bld) 0.7 % Critically low 0.9-7.0 [facility] Comment on above: Performed By: #### C BC ####[facility] Xqvwfrgsmh[address] [place], [place] [address]Dr. Flaco Otero Erythrocyte distribution width (RBC) [Ratio] 16.3 % Critically high 11.0-15.0 [facility] Comment on above: Performed By: #### C BC ####[facility] Xwiillutls34[address] [place], [place] [address]Dr. Flaco Otero Hematocrit (Bld) [Volume fraction] 37.4 % Critically low 42.0-54.0 [facility] Comment on above: Performed By: #### C BC ####[facility] Uwzkiyzwjm2675 [place] [address]Dr. Flaco Otero Hemoglobin (Bld) [Mass/Vol] 12.5 g/dL Critically low 14.0-18.0 [facility] Comment on above: Performed By: #### C BC ####[facility] Invgoepbmq0150 [place] [address]Dr. Flaco Otero IG # 0.03 10e3/ul Normal 0.00-0.03 [facility] Comment on above: Performed By: #### C BC ####[facility] Kszlysdoac3410 [place] [address]Dr. Flaco Branden IG % 0.3 % Normal 0.0-0.5 [facility] Comment on above: Performed By: #### C BC ####[facility] Qulvalmvcm3624 [place] [address]Dr. Purviedith Otero LYMPH # 2.0 103/ul Normal 1.2-3.8 [facility] Comment on above: Performed By: #### C BC ####[facility] Ogckesukrl0193 [place] [address]Dr. Flaco Branden Lymphocytes/100 WBC (Bld) 18.8 % Critically low 20.5-60.0 [facility] Comment on above: Performed By: #### C BC ####[facility] Ysapktpbaf7745 [place] [address]Dr. Purviedith Otero MANUAL DIFF REQ NO Normal [facility] Comment on above: Performed By: #### C BC ####[facility] Ecogrvdfba2559 [place] [address]Dr. Flaco Branden MCH (RBC) [Entitic mass] 29.1 pg Normal 25.9-34.0 [facility] Comment on above: Performed By: #### C BC ####[facility] Kjibqbnwuh2057 [place] [address]Dr. Flaco Branden MCHC (RBC) [Mass/Vol] 33.4 g/dL Normal 29.9-35.2 [facility] Comment on above: Performed By: #### C BC ####[facility] Pazymjugbg3873 [place] [address]Dr. Flaco Otero MCV (RBC) [Entitic vol] 87.2 fL Normal 80.0-94.0 [facility] Comment on above: Performed By: #### C BC ####[facility] Wtkgnciwyk4788 [place] [address]Dr. Flaco Otero MONO # 1.2 103/ul Critically high 0.3-0.[address] [facility] Comment on above: Performed By: #### C BC ####[facility] Aptjvmotrm2927 [place] [address]Dr. Flaco Otero Monocytes/100 WBC (Bld) 11.2 % Normal 1.7-12.0 [facility] Comment on above: Performed By: #### C BC ####[facility] Dwafndtsei[address] [place], [place] [address]Dr. Flaco Otero NEUT # 7.1 103/ul Critically high 1.4-6.[address] [facility] Comment on above: Performed By: #### C BC ####[facility] Yvkcwfrpzg[address] [place], [place] [address]Dr. Flaco Otero Neutrophils/100 WBC (Bld) 68.6 % Normal 43.0-75.0 [facility] Comment on above: Performed By: #### C BC ####[facility] Ahecaxchza[address] [place], [place] [address]Dr. Flaco Otero Platelet mean volume (Bld) [Entitic vol] 9.5 fL Normal 9.5-13.5 [facility] Comment on above: Performed By: #### C BC ####[facility] Ipmkbfxgju307[address] [place], [place] [address]Dr. Flaco Otero PLT 351 103/ul Normal 150-450 [facility] Comment on above: Performed By: #### C BC ####[facility] Voonhugsli6[address] [place], [place] [address]Dr. Flaco Otero RBC 4.29 106/ul Critically low 4.70-6.[address] [facility] Comment on above: Performed By: #### C BC ####[facility] Ipdqkrnasr7188 [place], [place] [address]Wi. Flaco Otero WBC 10.4 103/ul Normal 4.0-11.0 [facility] Comment on above: Performed By: #### C BC ####[facility] Fcnnccqlbh9454 [place], [place] [address]Tw. [address] HEAD WO CONon 11-11-2022 CT HEAD WO CON Normal [facility] Covid-19 PCR (CVDTBH)on 10-29 SARS-CoV-2 (COVID-19) RNA MARCO ANTONIO+probe Ql (Unsp spec) Not detected Normal NOT DETECTED [facility] Comment on above: Result Comment: [...] for this test is supported by the [employer] of Health and Human Service's declaration that [...] be used). Performed By: #### C VDTBH ####[facility] Lsnsdigxnb9528 [place], [place] [address]Rb. Flaco Otero LIPID PROFILEon 11-11-2022 CHOL-HDL RATIO NORM SEE BELOW Normal [facility] Comment on above: Result Comment: 3.3 - 4.4 LOW RISK 4.4 - 7.1 AVERAGE RISK 7.1 - 11.0 MODERATE RISK >11.0 HIGH RISK Performed By: #### L IPID, TSH ####[facility] Ukhxrespni6026 [place], [place] [address]Bk. Flaco Otero Cholesterol [Mass/Vol] 176 mg/dL Normal <=200 [facility] Comment on above: Performed By: #### L IPID, TSH ####[facility] Omvgucbywd1444 [place], [place] [address]Sh. Flaco Otero Cholesterol in HDL [Mass/Vol] 40 mg/dL Normal 40-60 [facility] Comment on above: Performed By: #### L IPID, TSH ####[facility] Jtmtfgndox8322 [place] [address]Dr. Flaco Otero Cholesterol in LDL [Mass/Vol] 117.6 mg/dL Normal [facility] Comment on above: Performed By: #### L IPID, TSH ####[facility] Oolewptzqw6379 [place] [address]Dr. Flaco Otero Cholesterol.total/Chol esterol in HDL [Mass ratio] 4.4 {ratio} Normal [facility] Comment on above: Performed By: #### L IPID, TSH ####[facility] Wotekegzsl0465 [place] [address]Dr. Flaco Otero HDL NORMAL > or = 60 mg/dl - LO W CARDIOVASCULAR RISK <40 mg/dl - HIGH CARDIOVASCULAR RISK Normal [facility] Comment on above: Performed By: #### L IPID, TSH ####[facility] Qgiwbqsaxq3764 [place], [place] [address]Zd. Flaco Otero LDL CALC NORMAL SEE BELOW Normal [facility] Comment on above: Result Comment: <100 mg/dl OPTIMAL 100 - 129 mg/dl NEAR OR ABOVE OPTIMAL 130 - 159 mg/dl BORDERLINE HIGH 160 - 189 mg/dl HIGH >190 mg/dl VERY HIGH Performed By: #### L IPID, TSH ####[facility] Pgymsfnngq7527 [place] [address]Dr. Flaco Otero Triglyceride [Mass/Vol] 92 mg/dL Normal <=150 [facility] Comment on above: Performed By: #### L IPID, TSH ####[facility] Vdmoljcoxr1580 [place] [address]Dr. Flaco Branden VLDL CALC 18.4 mg/dL Normal [facility] Comment on above: Performed By: #### L IPID, TSH ####[facility] Oztfleyked8501 [place] [address]Dr. Purviedith Otero PROF CHEM 8 (BAS METB)on Anion gap [Moles/Vol] 13.0 mmol/L Normal [facility] Comment on above: Performed By: #### B YEHUDA, HSTROPN ####[facility] Btcsljylnp8913 [place] [address]Dr. Flaco Otero Calcium [Mass/Vol] 9.3 mg/dL Normal 8.5-10.1 [facility] Comment on above: Performed By: #### B YEHUDA, HSTROPN ####[facility] Glfsadpucx[address] [place], [place] [address]Dr. Flaco Otero Chloride [Moles/Vol] 101 mmol/L Normal 98-107 [facility] Comment on above: Performed By: #### B YEHUDA, HSTROPN ####[facility] Igvbsyrani604[address] [place], [place] [address]Dr. Flaco Otero CO2 [Moles/Vol] 27.7 mmol/L Normal 21.0-32.0 [facility] Comment on above: Performed By: #### B YEHUDA, HSTROPN ####[facility] Bsgsmjwned[address] [place], [place] [address]Dr. Flaco Otero Creatinine [Mass/Vol] 1.75 mg/dL Critically high 0.70-1.30 [facility] Comment on above: Performed By: #### B YEHUDA, HSTROPN ####[facility] Aqyvbgyjvm[address] [place], [place] [address]Dr. Flaco Otero EGFR-AF CITIZEN OF [place] 47 mL/min/1.73m2 Critically low >=60 [facility] Comment on above: Performed By: #### B YEHUDA, HSTROPN ####[facility] Rzfxmxsfvc75[address] [place], [place] [address]Dr. Flaco Otero EGFR-NON AF CITIZEN OF [place] 39 mL/min/1.73m2 Critically low >=60 [facility] Comment on above: Performed By: #### B YEHUDA, HSTROPN ####[facility] Xnjgtowkkc3150 [place] [address]Dr. Flaco Otero Glucose [Mass/Vol] 97 mg/dL Normal 74-106 [facility] Comment on above: Performed By: #### B YEHUDA, HSTROPN ####[facility] Socejelkyx1390 [place] [address]Dr. Flaco Otero Potassium [Moles/Vol] 3.7 mmol/L Normal 3.5-5.1 [facility] Comment on above: Performed By: #### B YEHUDA, HSTROPN ####[facility] Qykfkcnnor2781 [place] [address]Dr. Flaco Otero Sodium [Moles/Vol] 138 mmol/L Normal 136-145 [facility] Comment on above: Performed By: #### B YEHUDA, HSTROPN ####[facility] Jgxwuhddpx[address] [place], [place] [address]Dr. Flaco Otero Urea nitrogen [Mass/Vol] 13.0 mg/dL Normal 7.0-18.0 [facility] Comment on above: Performed By: #### B YEHUDA, HSTROPN ####[facility] Pwsivddbgf[address] [place], [place] [address]Dr. Flaco Otero Urea nitrogen/Creatinine [Mass ratio] 7.4 mg/mg Normal [facility] Comment on above: Performed By: #### B YEHUDA, HSTROPN ####[facility] Nacdgswrgr[address] [place], [place] [address]Dr. Flaco Otero PROTIMEon 11-11-2022 INR Coag (PPP) [Relative time] 1.05 {INR} Normal [facility] Comment on above: Performed By: #### P T, PTT ####[facility] Gxllfdqljs[address] [place], [place] [address]Dr. Flaco Otero INR GUIDELINES SEE BELOW Normal [facility] Comment on above: Result Comment: RON RED INR: 2.0 - 3.0 CONDITIONS NOT LISTED BELOW 2.5 - 3.5 FOR PROSTHETIC HEART VALVE REPLACEMENT 2.5 - 3.5 RECURRENT THROMBOSIS Performed By: #### P T, PTT ####[facility] Cvyoqwvubi9589 [place] [address]Dr. Flaco Otero PT Coag (PPP) [Time] 11.1 s Normal 9.0-11.6 [facility] Comment on above: Performed By: #### P T, PTT ####[facility] Fettmkomhh0603 [place] [address]Dr. Flaco Otero PTTon 11-11-2022 aPTT Coag (Bld) [Time] 34.3 s Normal 22.3-36.2 [facility] Comment on above: Performed By: #### P T, PTT ####[facility] Yphdengkqq2855 [place] [address]Dr. Flaco Otero TROPONIN, HIGH SENSITIVITYon 11-11-2022 HSTROP 4.7 pg/mL Normal 4.0-76.1 [facility] Comment on above: Result Comment: CUT- OFF POINTS HAVE BEEN ESTABLISHED BASED ON THE FOURTH UNIVERSAL DEFINITIONS OF MYOCARDIALINFARCTION. THE UPPER REFERENCE LIMIT (URL) OF TROPONIN, DEFINED THE 99TH PERCENTILE OFcTnI DISTRIBUTION IN A REFERENCE POPULATION, HAS BEEN CONFIRMED THE DECISION THRESHOLDFOR [place] DIAGNOSIS. Performed By: #### B MP, HSTROPN ####[facility] Klnkkrtpnh[address] [place], [place] [address]Dr. Flaco Otero TSHon 11-11-2022 TSH 0.829 uIU/mL Normal 0.358-3.740 [facility] Comment on above: Performed By: #### L IPID, TSH ####[facility] Mcltubkwtn3448 [place] [address]Dr. Flaco Otero XR CHEST 1 Von 11-11-2022 XR CHEST 1 V Normal [facility] XR FOOT RT MIN 3 VIEWSon XR FOOT RT MIN 3 VIEWS Normal [facility] XR FOOT RT MIN 3 VIEWSon XR FOOT RT MIN 3 VIEWS Normal [facility] POINT OF CARE GLUCOSEon 12-2 Glucose [Mass/Vol] 87 mg/dL Normal 74-106 [facility] Comment on above: Performed By: #### P OCGLUC ####[facility] Dwnaebczbg7771 [place], [place] [address]Cm. Flaco Otero Glucose [Mass/Vol] 94 mg/dL Normal 74-106 [facility] Comment on above: Performed By: #### P OCGLUC ####[facility] Jrgumbiiqe3750 [place], [place] [address]Dt. Flaco Otero XR FOOT RT 2Von 09-25-2022 XR FOOT RT 2V Normal [facility] XR FOOT RT MIN 3 VIEWSon XR FOOT RT MIN 3 VIEWS Normal [facility] XR WRIST RT MIN 3 Von 2021 XR WRIST RT MIN 3 V Normal [facility]-29 SARS-CoV-2 (COVID-19) RNA MARCO ANTONIO+probe Ql (Unsp spec) Not detected Normal NOT DETECTED [facility] Comment on above: Result Comment: This test is not yet approved or cleared by the [place] FDA. When there are no FDA-approved or cleared tests available, and other criteria are met, FDA can make tests available under an emergency access mechanism called an Emergency Use Authorization (EUA). The EUA for this test is supported by the [employer] of Health and Human Service's (HHS's) declaration [...] with SARS-CoV-2. Performed By: #### C VDTBH ####[facility] Mxumzuaxru2235 [place], [place] [address]Dj. Flaco Otero PROF CHEM 8 (BAS METB)on Anion gap [Moles/Vol] 10.4 mmol/L Normal [facility] Comment on above: Performed By: #### B MP ####[facility] Jgxvlmtdtc7660 [place] [address]Dr. Flaco Otero Calcium [Mass/Vol] 8.7 mg/dL Normal 8.5-10.1 [facility] Comment on above: Performed By: #### B MP ####[facility] Ziqnoswdyh[address] [place], [place] [address]Dr. Flaco Otero Chloride [Moles/Vol] 104 mmol/L Normal 98-107 [facility] Comment on above: Performed By: #### B MP ####[facility] Qbpfxtzhtu60[address] [place], [place] [address]Dr. Flaco Otero CO2 [Moles/Vol] 27.2 mmol/L Normal 21.0-32.0 [facility] Comment on above: Performed By: #### B MP ####[facility] Veajkmpahi[address] [place], [place] [address]Dr. Flaco Otero Creatinine [Mass/Vol] 2.02 mg/dL Critically high 0.70-1.30 [facility] Comment on above: Performed By: #### B MP ####[facility] Vicmwpxbst79[address] [place], [place] [address]Dr. Flaco Otero EGFR-AF [place]IZ[place] 40 mL/min/1.73m2 Critically low >=60 [facility] Comment on above: Performed By: #### B MP ####[facility] Rkyxcvqkdy[address] [place], [place] [address]Dr. Flaco Otero EGFR-NON AF [place]IZ[place] OF [place] 33 mL/min/1.73m2 Critically low >=60 [facility] Comment on above: Performed By: #### B MP ####[facility] Wxqcdrbwzz050[address] [place], [place] [address]Dr. Flaco Otero Glucose [Mass/Vol] 91 mg/dL Normal 74-106 [facility] Comment on above: Performed By: #### B MP ####[facility] Fiebvvlpcc1970[address] [place], [place] [address]Dr. Flaco Otero Potassium [Moles/Vol] 3.6 mmol/L Normal 3.5-5.1 [facility] Comment on above: Performed By: #### B MP ####[facility] Nryidjfjqm376[address] [place], [place] [address]Dr. Flaco Otero Sodium [Moles/Vol] 138 mmol/L Normal 136-145 [facility] Comment on above: Performed By: #### B MP ####[facility] Flbjlxlmfr081098 [address] [place], [place] [address]Dr. Flaco Otero Urea nitrogen [Mass/Vol] 14.0 mg/dL Normal 7.0-18.0 [facility] Comment on above: Performed By: #### B MP ####[facility] Qmbgpsdpua2888[address] [place], [place] [address]Dr. Flaco Branden Urea nitrogen/Creatinine [Mass ratio] 6.9 mg/mg Normal [facility] Comment on above: Performed By: #### B MP ####[facility] Ovgdlutybk7700[address] [place], [place] [address]Dr. Flaco Branden CBC AUTO DIFFon 08-15-2022 BASO # 0.1 103/ul Normal 0.0-0.1 [facility] Comment on above: Performed By: #### C BC ####[facility] Kzcptdvqzm359[address] [place], [place] [address]Dr. Flaco Branden Basophils/100 WBC (Bld) 0.8 % Normal 0.2-2.0 [facility] Comment on above: Performed By: #### C BC ####[facility] Vkjmhqvibb022[address] [place], [place] [address]Dr. Flaco Otero EO # 0.1 103/ul Normal 0.0-0.7 [facility] Comment on above: Performed By: #### C BC ####[facility] Gyinrwbtqs057[address] [place], [place] [address]Dr. Flaco Branden Eosinophils/100 WBC (Bld) 1.4 % Normal 0.9-7.0 [facility] Comment on above: Performed By: #### C BC ####[facility] Axveourdnv537[address] [place], [place] [address]Dr. Flaco Branden Erythrocyte distribution width (RBC) [Ratio] 13.6 % Normal 11.0-15.0 [facility] Comment on above: Performed By: #### C BC ####[facility] Bkghelebco30[address] [place] [address]Dr. Flaco Otero Hematocrit (Bld) [Volume fraction] 46.2 % Normal 42.0-54.0 [facility] Comment on above: Performed By: #### C BC ####[facility] Ednxvarmyy[address] [place] [address]DrJeramie Flaco Otero Hemoglobin (Bld) [Mass/Vol] 15.2 g/dL Normal 14.0-18.0 [facility] Comment on above: Performed By: #### C BC ####[facility] Smkdjfawpe528[address] [place], [place] [address]DrJeramie Flaco Otero IG # 0.02 10e3/ul Normal 0.00-0.03 [facility] Comment on above: Performed By: #### C BC ####[facility] Sdyrtfglle13[address] [place], [place] [address]DrJeramie Purviedith Otero IG % 0.2 % Normal 0.0-0.5 [facility] Comment on above: Performed By: #### C BC ####[facility] Jnzgfzbyck575[address] [place], [place] [address]DrJeramie Flaco Branden LYMPH # 1.8 103/ul Normal 1.2-3.8 [facility] Comment on above: Performed By: #### C BC ####[facility] Lnzyonvdur039[address] [place], [place] [address]DrJeramie Purviedith Otero Lymphocytes/100 WBC (Bld) 19.2 % Critically low 20.5-60.0 [facility] Comment on above: Performed By: #### C BC ####[facility] Ykrbrgbaty9438 [place] [address]DrJeramie Purviedith Otero MANUAL DIFF REQ NO Normal [facility] Comment on above: Performed By: #### C BC ####[facility] Pdoyasmreu3195 [place] [address]DrJeramie Purviedith Otero MCH (RBC) [Entitic mass] 28.6 pg Normal 25.9-34.0 [facility] Comment on above: Performed By: #### C BC ####[facility] Qznlhujidu5730 [place] [address]Dr. Flaco Otero MCHC (RBC) [Mass/Vol] 32.9 g/dL Normal 29.9-35.2 [facility] Comment on above: Performed By: #### C BC ####[facility] Drngkrbgvc3082 [place] [address]DrJeramie Otero MCV (RBC) [Entitic vol] 86.8 fL Normal 80.0-94.0 [facility] Comment on above: Performed By: #### C BC ####[facility] Uugarcscty0756 [place] [address]DrJeramie Otero MONO # 0.8 103/ul Normal 0.3-0.8 [facility] Comment on above: Performed By: #### C BC ####[facility] Jgbxffhyoi3409 [place] [address]DrJeramie Otero Monocytes/100 WBC (Bld) 8.7 % Normal 1.7-12.0 [facility] Comment on above: Performed By: #### C BC ####[facility] Ylcqygrqxb7[address] [place], [place] [address]Dr. Flaco Otero NEUT # 6.5 103/ul Normal 1.4-6.5 [facility] Comment on above: Performed By: #### C BC ####[facility] Mjmgspausi6093 [place] [address]DrJeramie Otero Neutrophils/100 WBC (Bld) 69.7 % Normal 43.0-75.0 [facility] Comment on above: Performed By: #### C BC ####[facility] Kapfldkfdx6760 [place] [address]DrJeramie Otero Platelet mean volume (Bld) [Entitic vol] 9.8 fL Normal 9.5-13.5 [facility] Comment on above: Performed By: #### C BC ####[facility] Drimqkugja1090 [place] [address]DrJeramie Otero PLT 503 103/ul Critically high 150-[address] [facility] Comment on above: Performed By: #### C BC ####[facility] Nszpasinmk5212 [place] [address]Dr. Flaco Otero RBC 5.32 106/ul Normal 4.70-6.10 [facility] Comment on above: Performed By: #### C BC ####[facility] Vtushubqgt7200 [place] [address]Dr. Purviedith Otero WBC 9.3 103/ul Normal 4.0-11.0 [facility] Comment on above: Performed By: #### C BC ####[facility] Mylhrlvbrj0996 [place] [address]Dr. Purviedith Otero PROTIMEon 08-15-2022 INR Coag (PPP) [Relative time] 1.73 {INR} Normal [facility] Comment on above: Performed By: #### P TT, PT ####[facility] Nfcmlzlbgb225[address] [place], [place] [address]Dr. Flaco Otero INR GUIDELINES SEE BELOW Normal [facility] Comment on above: Result Comment: RON RED INR: 2.0 - 3.0 CONDITIONS NOT LISTED BELOW 2.5 - 3.5 FOR PROSTHETIC HEART VALVE REPLACEMENT 2.5 - 3.5 RECURRENT THROMBOSIS Performed By: #### P TT, PT ####[facility] Gvlgwszrso7080[address] [place], [place] [address]Dr. Flaco Otero PT Coag (PPP) [Time] 18.0 s Critically high 9.0-11.6 [facility] Comment on above: Performed By: #### P TT, PT ####[facility] Mshcylknnw388[address] [place], [place] [address]Dr. Purviedith Otero PTTon 08-15-2022 aPTT Coag (Bld) [Time] 34.8 s Normal 22.3-36.2 Th [facility] Comment on above: Performed By: #### P TT, PT ####[facility] Dexemstnof964[address] [place], [place] [address]Dr. Flaco Otero CBC AUTO DIFFon 08-02-2022 BASO # 0.0 103/ul Normal 0.0-0.1 [facility] Comment on above: Performed By: #### C BC ####[facility] Zpgbenksoo2332 [place] [address]Dr. Flaco Otero Basophils/100 WBC (Bld) 0.2 % Normal 0.2-2.0 [facility] Comment on above: Performed By: #### C BC ####[facility] Vpubtyaret6223 [place] [address]Dr. Flaco Otero EO # 0.1 103/ul Normal 0.0-0.7 [facility] Comment on above: Performed By: #### C BC ####[facility] Xezormytdm4367 [place] [address]Dr. Flaco Otero Eosinophils/100 WBC (Bld) 1.2 % Normal 0.9-7.0 [facility] Comment on above: Performed By: #### C BC ####[facility] Fcwqaybhab9[address] [place], [place] [address]Dr. Flaco Otero Erythrocyte distribution width (RBC) [Ratio] 13.2 % Normal 11.0-15.0 [facility] Comment on above: Performed By: #### C BC ####[facility] Omzgtcrbcz847[address] [place], [place] [address]Dr. Flaco Otero Hematocrit (Bld) [Volume fraction] 42.6 % Normal 42.0-54.0 [facility] Comment on above: Performed By: #### C BC ####[facility] Ycsfbfsgwj[address] [place], [place] [address]Dr. Flaco Otero Hemoglobin (Bld) [Mass/Vol] 14.0 g/dL Normal 14.0-18.0 [facility] Comment on above: Performed By: #### C BC ####[facility] Slsxeayslm9150 [place] [address]Dr. Flaco Otero IG # 0.05 10e3/ul Critically high 0.00-0.03 [facility] Comment on above: Performed By: #### C BC ####[facility] Enhimbmtuo[address] [place], [place] [address]Dr. Flaco Otero IG % 0.5 % Normal 0.0-0.5 [facility] Comment on above: Performed By: #### C BC ####[facility] Wbqfryhewv8235 [place] [address]Dr. lFaco Otero LYMPH # 1.5 103/ul Normal 1.2-3.8 [facility] Comment on above: Performed By: #### C BC ####[facility] Mceguhcirn5379 [place] [address]Dr. Flaco Otero Lymphocytes/100 WBC (Bld) 13.5 % Critically low 20.5-60.0 [facility] Comment on above: Performed By: #### C BC ####[facility] Uztrhkccte6378 [place] [address]DrJeramie Otero MANUAL DIFF REQ NO Normal [facility] Comment on above: Performed By: #### C BC ####[facility] Wlwaokhowb2727 [place] [address]Dr. Flaco Otero MCH (RBC) [Entitic mass] 29.0 pg Normal 25.9-34.0 [facility] Comment on above: Performed By: #### C BC ####[facility] Qgcfiygszl0833 [place] [address]Dr. Flaco Otero MCHC (RBC) [Mass/Vol] 32.9 g/dL Normal 29.9-35.2 [facility] Comment on above: Performed By: #### C BC ####[facility] Ajdurdszfn9426 [place] [address]Dr. Flaco Otero MCV (RBC) [Entitic vol] 88.2 fL Normal 80.0-94.0 [facility] Comment on above: Performed By: #### C BC ####[facility] Veccyhnjvl9759 [place] [address]DrJeramie Otero MONO # 1.0 103/ul Critically high 0.3-0.[address] [facility] Comment on above: Performed By: #### C BC ####[facility] Fxduyjoxgu2353 [place] [address]Dr. Flaco Otero Monocytes/100 WBC (Bld) 8.8 % Normal 1.7-12.0 [facility] Comment on above: Performed By: #### C BC ####[facility] Dsvqvujwyq5084 [place] [address]Dr. Purviedith Otero NEUT # 8.4 103/ul Critically high 1.4-6.5 [facility] Comment on above: Performed By: #### C BC ####[facility] Smwjnznbhc7965 [place] [address]Dr. Flaco Otero Neutrophils/100 WBC (Bld) 75.8 % Critically high 43.0-75.0 [facility] Comment on above: Performed By: #### C BC ####[facility] Pwgyburrui1854 [place] [address]Dr. Flaco Otero Platelet mean volume (Bld) [Entitic vol] 10.2 fL Normal 9.5-13.5 [facility] Comment on above: Performed By: #### C BC ####[facility] Ymzdptfbkl0655 [place] [address]Dr. Flaco Otero PLT 329 103/ul Normal 150-450 [facility] Comment on above: Performed By: #### C BC ####[facility] Hzkcapjljj4758 [place] [address]Dr. Flaco Otero RBC 4.83 106/ul Normal 4.70-6.10 [facility] Comment on above: Performed By: #### C BC ####[facility] Sgzscuicjn2902 [place] [address]Dr. Flaco Otero WBC 11.0 103/ul Normal 4.0-11.0 [facility] Comment on above: Performed By: #### C BC ####[facility] Xmfrgsulxb7191 [place] [address]DrJeramie Otero PROF 14(COMP METB)on 022 Albumin [Mass/Vol] 2.6 g/dL Critically low 3.4-5.0 Th [facility] Comment on above: Performed By: #### C MP ####[facility] Werspeypdf6876 [place] [address]DrJeramie Otero Albumin/Globulin [Mass ratio] 0.6 {ratio} Normal [facility] Comment on above: Performed By: #### C MP ####[facility] Wypqjirodw1553 [place] [address]Dr. Flaco Otero ALP [Catalytic activity/Vol] 58 U/L Normal 46-116 [facility] Comment on above: Performed By: #### C MP ####[facility] Guhbzwckwz2202 [place] [address]Dr. Flaco Branden ALT [Catalytic activity/Vol] 23 U/L Normal 16-63 [facility] Comment on above: Performed By: #### C MP ####[facility] Nwwwicbcxq2034 [place] [address]Dr. Flaco Otero Anion gap [Moles/Vol] 14.9 mmol/L Normal Th [facility] Comment on above: Performed By: #### C MP ####[facility] Deboywxyfr59[address] [place], [place] [address]Dr. Purviedith Otero AST [Catalytic activity/Vol] 23 U/L Normal 15-37 [facility] Comment on above: Performed By: #### C MP ####[facility] Roqyzkktyh467[address] [place], [place] [address]Dr. Purviedith Branden Bilirubin [Mass/Vol] 0.6 mg/dL Normal 0.2-1.0 [facility] Comment on above: Performed By: #### C MP ####[facility] Xvzxggebhd5951 [place] [address]Dr. Flaco Otero Calcium [Mass/Vol] 8.8 mg/dL Normal 8.5-10.1 [facility] Comment on above: Performed By: #### C MP ####[facility] Njzefxzgyn9456 [place] [address]Dr. Flaco Otero Chloride [Moles/Vol] 104 mmol/L Normal 98-107 [facility] Comment on above: Performed By: #### C MP ####[facility] Cihvummnpj0788 [place] [address]Dr. Flaco Otero CO2 [Moles/Vol] 21.3 mmol/L Normal 21.0-32.0 [facility] Comment on above: Performed By: #### C MP ####[facility] Xkyroqgqok8027 [place] [address]Dr. Flaco Otero Creatinine [Mass/Vol] 2.08 mg/dL Critically high 0.70-1.30 [facility] Comment on above: Performed By: #### C MP ####[facility] Dpuljwxlpn8234 [place] [address]Dr. Flaco Otero EGFR-AF CITIZEN [place] 38 mL/min/1.73m2 Critically low >=60 [facility] Comment on above: Performed By: #### C MP ####[facility] Xnvjhihlfz8524 [place] [address]Dr. Flaco Branden EGFR-NON AF CITIZEN OF [place] 32 mL/min/1.73m2 Critically low >=60 [facility] Comment on above: Performed By: #### C MP ####[facility] Lzjrcxvuvk8[address] [place], [place] [address]Dr. Flaco Branden Globulin (S) [Mass/Vol] 4.1 g/dL Normal [facility] Comment on above: Performed By: #### C MP ####[facility] Jmehsbyuzr5971 [place] [address]Dr. Flaco Branden Glucose [Mass/Vol] 87 mg/dL Normal 74-106 [facility] Comment on above: Performed By: #### C MP ####[facility] Kcifrfycob6943 [place] [address]Dr. Flaco Branden Potassium [Moles/Vol] 4.2 mmol/L Normal 3.5-5.1 [facility] Comment on above: Performed By: #### C MP ####[facility] Gdfxxkjzyc3251 [place] [address]Dr. Flaco Otero Protein [Mass/Vol] 6.7 g/dL Normal 6.4-8.2 [facility] Comment on above: Performed By: #### C MP ####[facility] Cirlpiqkkk2926 [place] [address]Dr. Flaco Otero Sodium [Moles/Vol] 136 mmol/L Normal 136-145 [facility] Comment on above: Performed By: #### C MP ####[facility] Kfwaakonjk0532 [place] [address]Dr. Flaco Otero Urea nitrogen [Mass/Vol] 32.0 mg/dL Critically high 7.0-18.0 [facility] Comment on above: Performed By: #### C MP ####[facility] Lorirjbkyw[address] [place], [place] [address]Dr. Flaco Branden Urea nitrogen/Creatinine [Mass ratio] 15.4 mg/mg Normal [facility] Comment on above: Performed By: #### C MP ####[facility] Rmxrssdivn9230[address] [place], [place] [address]Dr. Flaco Branden CBC AUTO DIFFon 08-01-2022 BASO # 0.0 103/ul Normal 0.0-0.1 [facility] Comment on above: Performed By: #### C BC ####[facility] Aerxyqfbjx12[address] [place], [place] [address]Dr. Purviedith Otero Basophils/100 WBC (Bld) 0.1 % Critically low 0.2-2.0 [facility] Comment on above: Performed By: #### C BC ####[facility] Fhmwywcziq29[address] [place], [place] [address]Dr. Flaco Branden EO # 0.0 103/ul Normal 0.0-0.7 [facility] Comment on above: Performed By: #### C BC ####[facility] Zkkyyyvacq023[address] [place], [place] [address]Dr. Flaco Branden Eosinophils/100 WBC (Bld) 0.3 % Critically low 0.9-7.0 [facility] Comment on above: Performed By: #### C BC ####[facility] Pekyciiayi12[address] [place], [place] [address]Dr. Flaco Otero Erythrocyte distribution width (RBC) [Ratio] 13.5 % Normal 11.0-15.0 [facility] Comment on above: Performed By: #### C BC ####[facility] Zvisytibgo148[address] [place], [place] [address]Dr. Flaco Branden Hematocrit (Bld) [Volume fraction] 42.0 % Normal 42.0-54.0 [facility] Comment on above: Performed By: #### C BC ####[facility] Tgqjfswvmy9515 [place] [id number] Flaco Branden Hemoglobin (Bld) [Mass/Vol] 13.6 g/dL Critically low 14.0-18.0 [facility] Comment on above: Performed By: #### C BC ####[facility] Rydnaqmzis0330 [place] [address]DrJeramie Otero IG # 0.04 10e3/ul Critically high 0.00-0.03 [facility] Comment on above: Performed By: #### C BC ####[facility] Hhnvjkxvph4828 [place] [address]DrJeramie Otero IG % 0.4 % Normal 0.0-0.5 [facility] Comment on above: Performed By: #### C BC ####[facility] Qbrphbjwcl3086 [place] [address]DrJeramie Otero LYMPH # 1.0 103/ul Critically low 1.2-3.8 [facility] Comment on above: Performed By: #### C BC ####[facility] Dhfplptwuf2079 [place] [address]DrJeramie Otero Lymphocytes/100 WBC (Bld) 9.3 % Critically low 20.5-60.0 [facility] Comment on above: Performed By: #### C BC ####[facility] Ctjdzlwwdg3226 [place] [address]DrJeramie Otero MANUAL DIFF REQ NO Normal [facility] Comment on above: Performed By: #### C BC ####[facility] Qgqigynkbr6425 [place] [address]DrJeramie Otero MCH (RBC) [Entitic mass] 28.7 pg Normal 25.9-34.0 [facility] Comment on above: Performed By: #### C BC ####[facility] Paqyapqvwr4085 [place] [address]DrJeramie Otero MCHC (RBC) [Mass/Vol] 32.4 g/dL Normal 29.9-35.2 [facility] Comment on above: Performed By: #### C BC ####[facility] Glnoigazdy2076 [place] [address]DrJeramie Otero MCV (RBC) [Entitic vol] 88.6 fL Normal 80.0-94.0 [facility] Comment on above: Performed By: #### C BC ####[facility] Ypvspaetpb8548 [place] [address]DrJeramie Otero MONO # 1.2 103/ul Critically high 0.3-0.[address] [facility] Comment on above: Performed By: #### C BC ####[facility] Thhuaddehx8146 [place] [address]DrJeramie Otero Monocytes/100 WBC (Bld) 11.0 % Normal 1.7-12.0 [facility] Comment on above: Performed By: #### C BC ####[facility] Zhwsfxcijb529[address] [place], [place] [address]DrJeramie Otero NEUT # 8.4 103/ul Critically high 1.4-6.[address] [facility] Comment on above: Performed By: #### C BC ####[facility] Czlfwrsycs[address] [place], [place] [address]DrJeramie Otero Neutrophils/100 WBC (Bld) 78.9 % Critically high 43.0-75.0 [facility] Comment on above: Performed By: #### C BC ####[facility] Rfjzcjhybf[address] [place], [place] [address]DrJeramie Otero Platelet mean volume (Bld) [Entitic vol] 10.0 fL Normal 9.5-13.5 [facility] Comment on above: Performed By: #### C BC ####[facility] Vaiferttyu033[address] [place], [place] [address]DrJeramie Otero PLT 308 103/ul Normal 150-450 [facility] Comment on above: Performed By: #### C BC ####[facility] Cxyudojwld[address] [place], [place] [address]DrJeramie Otero RBC 4.74 106/ul Normal 4.70-6.10 [facility] Comment on above: Performed By: #### C BC ####[facility] Mbmfoiqfkh7710 [place] [address]Dr. Flaco Otero WBC 10.7 103/ul Normal 4.0-11.0 [facility] Comment on above: Performed By: #### C BC ####[facility] Mxauzfwmkk1351 [place] [address]DrJeramie Otero PROF 14(COMP METB)on 022 Albumin [Mass/Vol] 2.6 g/dL Critically low 3.4-5.0 [facility] Comment on above: Performed By: #### C MP ####[facility] Hwbmcobgvu[address] [place], [place] [address]DrJeramie Otero Albumin/Globulin [Mass ratio] 0.6 {ratio} Normal [facility] Comment on above: Performed By: #### C MP ####[facility] Wnpppkxcwc839[address] [place], [place] [address]Dr. Flaco Otero ALP [Catalytic activity/Vol] 58 U/L Normal 46-116 [facility] Comment on above: Performed By: #### C MP ####[facility] Amnxayamtt616[address] [place], [place] [address]Dr. Flaco Otero ALT [Catalytic activity/Vol] 24 U/L Normal 16-63 [facility] Comment on above: Performed By: #### C MP ####[facility] Ezkqbubfrq[address] [place], [place] [address]DrJeramie Otero Anion gap [Moles/Vol] 14.8 mmol/L Normal Th [facility] Comment on above: Performed By: #### C MP ####[facility] Mmgpmwgved[address] [place], [place] [address]DrJeramie Otero AST [Catalytic activity/Vol] 33 U/L Normal 15-37 [facility] Comment on above: Performed By: #### C MP ####[facility] Vlyzxvgqly9305 [place] [address]DrJeramie Otero Bilirubin [Mass/Vol] 1.0 mg/dL Normal 0.2-1.0 [facility] Comment on above: Performed By: #### C MP ####[facility] Ppadokhmua7105 [place] [address]Dr. Flaco Otero Calcium [Mass/Vol] 8.7 mg/dL Normal 8.5-10.1 [facility] Comment on above: Performed By: #### C MP ####[facility] Twddgbalkk5812 [place] [address]Dr. Flaco Otero Chloride [Moles/Vol] 104 mmol/L Normal 98-107 [facility] Comment on above: Performed By: #### C MP ####[facility] Fmauqoirtx9024 [place] [address]Dr. Flaco Otero CO2 [Moles/Vol] 21.2 mmol/L Normal 21.0-32.0 [facility] Comment on above: Performed By: #### C MP ####[facility] Iqehmiarnc[address] [place], [place] [address]Dr. Flaco Otero Creatinine [Mass/Vol] 1.90 mg/dL Critically high 0.70-1.30 [facility] Comment on above: Performed By: #### C MP ####[facility] Uuwkwibxhy05[address] [place], [place] [address]Dr. Flaco Otero EGFR-AF CITIZEN [place] 43 mL/min/1.73m2 Critically low >=60 [facility] Comment on above: Performed By: #### C MP ####[facility] Yeoovdeuwo235[address] [place], [place] [address]Dr. Flaco Otero EGFR-NON AF CITIZEN OF [place] 35 mL/min/1.73m2 Critically low >=60 [facility] Comment on above: Performed By: #### C MP ####[facility] Inindybsxa922[address] [place], [place] [address]Dr. Flaco Otero Globulin (S) [Mass/Vol] 4.0 g/dL Normal [facility] Comment on above: Performed By: #### C MP ####[facility] Ivzsydltge35[address] [place] [address]Dr. Flaco Branden Glucose [Mass/Vol] 82 mg/dL Normal 74-106 [facility] Comment on above: Performed By: #### C MP ####[facility] Vxxlgoowuy7062 [place] [address]Dr. Flaco Branden Potassium [Moles/Vol] 4.0 mmol/L Normal 3.5-5.1 [facility] Comment on above: Performed By: #### C MP ####[facility] Waybudhcjo6192 [place] [address]Dr. Purviedith Otero Protein [Mass/Vol] 6.6 g/dL Normal 6.4-8.2 [facility] Comment on above: Performed By: #### C MP ####[facility] Fsliqumdaa064[address] [place], [place] [address]Dr. Flaco Otero Sodium [Moles/Vol] 136 mmol/L Normal 136-145 [facility] Comment on above: Performed By: #### C MP ####[facility] Koyxwptxyl25[address] [place], [place] [address]Dr. Flaco Otero Urea nitrogen [Mass/Vol] 29.0 mg/dL Critically high 7.0-18.0 [facility] Comment on above: Performed By: #### C MP ####[facility] Rlmjnassgz844[address] [place], [place] [address]Dr. Flaco Otero Urea nitrogen/Creatinine [Mass ratio] 15.3 mg/mg Normal [facility] Comment on above: Performed By: #### C MP ####[facility] Qbskxunxdu5312[address] [place], [place] [address]Dr. Flaco Otero CBC AUTO DIFFon 07-31-2022 BASO # 0.0 103/ul Normal 0.0-0.1 [facility] Comment on above: Performed By: #### C BC ####[facility] Wlhmjxacic7627[address] [place], [place] [address]Dr. Flaco Otero Basophils/100 WBC (Bld) 0.2 % Normal 0.2-2.0 [facility] Comment on above: Performed By: #### C BC ####[facility] Engonblfxd706698 [address] [place], [place] [address]Dr. Flaco Otero EO # 0.0 103/ul Normal 0.0-0.7 [facility] Comment on above: Performed By: #### C BC ####[facility] Ndapywbtrm338[address] [place], [place] [address]Dr. Flaco Branden Eosinophils/100 WBC (Bld) 0.1 % Critically low 0.9-7.0 [facility] Comment on above: Performed By: #### C BC ####[facility] Lbmnltpubf871398 [address] [place], [place] [address]Dr. Flaco Branden Erythrocyte distribution width (RBC) [Ratio] 13.7 % Normal 11.0-15.0 [facility] Comment on above: Performed By: #### C BC ####[facility] Osocfwkbrm400[address] [place], [place] [address]Dr. Flaco Otero Hematocrit (Bld) [Volume fraction] 40.1 % Critically low 42.0-54.0 [facility] Comment on above: Performed By: #### C BC ####[facility] Zfqdkbymqs3037[address] [place], [place] [address]Dr. Flaco Otero Hemoglobin (Bld) [Mass/Vol] 13.1 g/dL Critically low 14.0-18.0 [facility] Comment on above: Performed By: #### C BC ####[facility] Xgximscugq548398 [address] [place], [place] [address]Dr. Flaco Otero IG # 0.03 10e3/ul Normal 0.00-0.03 [facility] Comment on above: Performed By: #### C BC ####[facility] Ywebneuoyr383[address] [place], [place] [address]Dr. Flaco Otero IG % 0.3 % Normal 0.0-0.5 [facility] Comment on above: Performed By: #### C BC ####[facility] Wvatmszmql0480[address] [place], [place] [address]Dr. Flaco Otero LYMPH # 1.7 103/ul Normal 1.2-3.8 [facility] Comment on above: Performed By: #### C BC ####[facility] Tdfbmuvayf949[address] [place], [place] [address]Dr. Flaco Otero Lymphocytes/100 WBC (Bld) 16.2 % Critically low 20.5-60.0 [facility] Comment on above: Performed By: #### C BC ####[facility] Howehxbzvp7122 [place] [address]DrJeramie Otero MANUAL DIFF REQ NO Normal [facility] Comment on above: Performed By: #### C BC ####[facility] Ymjiakmcxh8377 [place] [address]DrJeramie Otero MCH (RBC) [Entitic mass] 29.2 pg Normal 25.9-34.0 [facility] Comment on above: Performed By: #### C BC ####[facility] Ppnemtysmx0623[address] [place], [place] [address]DrJeramie Otero MCHC (RBC) [Mass/Vol] 32.7 g/dL Normal 29.9-35.2 [facility] Comment on above: Performed By: #### C BC ####[facility] Oowgezsaus[address] [place], [place] [address]DrJeramie Otero MCV (RBC) [Entitic vol] 89.3 fL Normal 80.0-94.0 [facility] Comment on above: Performed By: #### C BC ####[facility] Bjngaaoqni2944[address] [place], [place] [address]DrJeramie Otero MONO # 1.2 103/ul Critically high 0.3-0.[address] [facility] Comment on above: Performed By: #### C BC ####[facility] Vqjvewhpuh1888[address] [place], [place] [address]DrJeramie Otero Monocytes/100 WBC (Bld) 11.1 % Normal 1.7-12.0 [facility] Comment on above: Performed By: #### C BC ####[facility] Lelbtmefpb3633[address] [place], [place] [address]DrJeramie Otero NEUT # 7.7 103/ul Critically high 1.4-6.[address] [facility] Comment on above: Performed By: #### C BC ####[facility] Rntcdpymlz037[address] [place], [place] [address]DrJeramie Otero Neutrophils/100 WBC (Bld) 72.1 % Normal 43.0-75.0 [facility] Comment on above: Performed By: #### C BC ####[facility] Uydjwvjzru9222 [place] [id number] Otero Platelet mean volume (Bld) [Entitic vol] 9.9 fL Normal 9.5-13.5 [facility] Comment on above: Performed By: #### C BC ####[facility] Yunuaslbjl514[address] [place], [place] [address]DrJeramie Otero PLT 263 103/ul Normal 150-450 [facility] Comment on above: Performed By: #### C BC ####[facility] Elcpbpfcbc523[address] [place], [place] [address]DrJeramie Otero RBC 4.49 106/ul Critically low 4.70-6.10 [facility] Comment on above: Performed By: #### C BC ####[facility] Jjvzzokidh3524[address] [place], [place] [address]DrJeramie Otero WBC 10.7 103/ul Normal 4.0-11.0 [facility] Comment on above: Performed By: #### C BC ####[facility] Jxwxtpwwvz9350[address] [place], [place] [address]Dr. Flaco Otero PROF 14(COMP METB)on 022 Albumin [Mass/Vol] 2.8 g/dL Critically low 3.4-5.0 [facility] Comment on above: Performed By: #### C MP ####[facility] Rjanjqxvea211[address] [place], [place] [address]DrJeramie Otero Albumin/Globulin [Mass ratio] 0.8 {ratio} Normal [facility] Comment on above: Performed By: #### C MP ####[facility] Zauuuaqxiu266[address] [place], [place] [address]DrJeramie Otero ALP [Catalytic activity/Vol] 59 U/L Normal 46-116 [facility] Comment on above: Performed By: #### C MP ####[facility] Aozunhtmgz7960[address] [place], [place] [address]DrJeramie Otero ALT [Catalytic activity/Vol] 30 U/L Normal 16-63 [facility] Comment on above: Performed By: #### C MP ####[facility] Yxskbhcyyu5429 [place] [address]Dr. Flaco Otero Anion gap [Moles/Vol] 14.8 mmol/L Normal Th [facility] Comment on above: Performed By: #### C MP ####[facility] Ddpcybjqlu5745 [place] [address]Dr. Purviedith Otero AST [Catalytic activity/Vol] 56 U/L Critically high 15-37 [facility] Comment on above: Performed By: #### C MP ####[facility] Xalgvtzivo430[address] [place], [place] [address]Dr. Flaco Otero Bilirubin [Mass/Vol] 0.8 mg/dL Normal 0.2-1.0 [facility] Comment on above: Performed By: #### C MP ####[facility] Yccqcqkupe169[address] [place], [place] [address]Dr. Flaco Otero Calcium [Mass/Vol] 9.0 mg/dL Normal 8.5-10.1 [facility] Comment on above: Performed By: #### C MP ####[facility] Esfswzmikh060[address] [place], [place] [address]Dr. Flaco Otero Chloride [Moles/Vol] 106 mmol/L Normal 98-107 [facility] Comment on above: Performed By: #### C MP ####[facility] Onaulppmoj0827[address] [place], [place] [address]Dr. Flaco Otero CO2 [Moles/Vol] 24.7 mmol/L Normal 21.0-32.0 [facility] Comment on above: Performed By: #### C MP ####[facility] Dguxdytfbr94[address] [place], [place] [address]Dr. Flaco Otero Creatinine [Mass/Vol] 2.12 mg/dL Critically high 0.70-1.30 [facility] Comment on above: Performed By: #### C MP ####[facility] Szemhozdrb9523[address] [place], [place] [address]Dr. Flaco Otero EGFR-AF [place]IZ[place] 38 mL/min/1.73m2 Critically low >=60 [facility] Comment on above: Performed By: #### C MP ####[facility] Mcxiifuxds1805 [place] [address]Dr. Flaco Branden EGFR-NON AF [place]IZ[place] OF [place] 31 mL/min/1.73m2 Critically low >=60 [facility] Comment on above: Performed By: #### C MP ####[facility] Gjyuwjqubc0074 [place] [address]Dr. Flaco Branden Globulin (S) [Mass/Vol] 3.7 g/dL Normal [facility] Comment on above: Performed By: #### C MP ####[facility] Ushfkogfoo74[address] [place] [address]Dr. Flaco Branden Glucose [Mass/Vol] 79 mg/dL Normal 74-106 [facility] Comment on above: Performed By: #### C MP ####[facility] Vugisoqapt0284 [place] [address]Dr. Flaco Branden Potassium [Moles/Vol] 3.5 mmol/L Normal 3.5-5.1 [facility] Comment on above: Performed By: #### C MP ####[facility] Ciaibipczr6403 [place] [address]Dr. Flaco Branden Protein [Mass/Vol] 6.5 g/dL Normal 6.4-8.2 [facility] Comment on above: Performed By: #### C MP ####[facility] Iicvxshzrq0350 [place] [address]Dr. Flaco Branden Sodium [Moles/Vol] 142 mmol/L Normal 136-145 [facility] Comment on above: Performed By: #### C MP ####[facility] Aduuwmtjis0985 [place] [address]Dr. Flaco Otero Urea nitrogen [Mass/Vol] 32.0 mg/dL Critically high 7.0-18.0 [facility] Comment on above: Performed By: #### C MP ####[facility] Pysrlkegrd6624 [place] [address]Dr. Flaco Otero Urea nitrogen/Creatinine [Mass ratio] 15.1 mg/mg Normal [facility] Comment on above: Performed By: #### C MP ####[facility] Dmnqzpvpew455[address] [place], [place] [address]Dr. Flaco Otero T4on 07-31-2022 T4 [Mass/Vol] 7.10 ug/dL Normal 4.50-12.10 [facility] Comment on above: Performed By: #### T SH, T4 ####[facility] Pyxbragxle[address] [place] [address]Dr. Flaco Otero TSHon 07-31-2022 TSH 0.871 uIU/mL Normal 0.358-3.740 [facility] Comment on above: Performed By: #### T SH, T4 ####[facility] Knqbpsuwol279[address] [place], [place] [address]Dr. Flaco Otero VIT B12 AND FOLATEon 022 Cobalamin (Vitamin B12) [Mass/Vol] 130.0 pg/mL Critically low 193.0-986.0 [facility] Comment on above: Performed By: #### B 12FOL ####[facility] Pmgieuobfb35[address] [place], [place] [address]Dr. Flaco Otero FOLATE 6.20 ng/mL Critically low 8.60-58.90 [facility] Comment on above: Performed By: #### B 12FOL ####[facility] Qtdknabzvb3970[address] [place], [place] [address]Dr. Flaco Otero AMMONIAon 07-30-2022 Ammonia (P) [Mass/Vol] ug/dL Critically low 11-32 [facility] Comment on above: Performed By: #### A MM ####[facility] Qcjuplijpi7968[address] [place], [place] [address]Dr. Flaco Otero CBC AUTO DIFFon 07-30-2022 BASO # 0.0 103/ul Normal 0.0-0.1 [facility] Comment on above: Performed By: #### C BC ####[facility] Syvyilltew[address] [place], [place] [address]Dr. Flaco Otero Basophils/100 WBC (Bld) 0.1 % Critically low 0.2-2.0 [facility] Comment on above: Performed By: #### C BC ####[facility] Rthttttjjt[address] [place], [place] [address]DrJeramie Otero EO # 0.0 103/ul Normal 0.0-0.7 [facility] Comment on above: Performed By: #### C BC ####[facility] Edgwvoanbv2110[address] [place], [place] [address]DrJeramie Otero Eosinophils/100 WBC (Bld) 0.1 % Critically low 0.9-7.0 [facility] Comment on above: Performed By: #### C BC ####[facility] Qswlimxunz680[address] [place], [place] [address]Dr. Flaco Otero Erythrocyte distribution width (RBC) [Ratio] 13.5 % Normal 11.0-15.0 [facility] Comment on above: Performed By: #### C BC ####[facility] Ekyhmcpeyg055[address] [place], [place] [address]Dr. Flaco Otero Hematocrit (Bld) [Volume fraction] 37.8 % Critically low 42.0-54.0 [facility] Comment on above: Performed By: #### C BC ####[facility] Dcnziiumaa475[address] [place], [place] [address]Dr. Flaco Otero Hemoglobin (Bld) [Mass/Vol] 12.8 g/dL Critically low 14.0-18.0 [facility] Comment on above: Performed By: #### C BC ####[facility] Mebrhnpyxe116[address] [place], [place] [address]DrJeramie Otero IG # 0.06 10e3/ul Critically high 0.00-0.03 [facility] Comment on above: Performed By: #### C BC ####[facility] Dzqynbydvz739[address] [place], [place] [address]DrJeramie Otero IG % 0.4 % Normal 0.0-0.5 [facility] Comment on above: Performed By: #### C BC ####[facility] Vppjofmexx195[address] [place], [place] [address]Dr. Flaco Otero LYMPH # 1.0 103/ul Critically low 1.2-3.8 [facility] Comment on above: Performed By: #### C BC ####[facility] Vsfepmtkil6134 [place] [address]Dr. Flaco Otero Lymphocytes/100 WBC (Bld) 7.0 % Critically low 20.5-60.0 [facility] Comment on above: Performed By: #### C BC ####[facility] Jfjydrlwed6792 [place] [address]Dr. Flaco Otero MANUAL DIFF REQ NO Normal [facility] Comment on above: Performed By: #### C BC ####[facility] Xvzdcodrby2615 [place] [address]Dr. Flaco Otero MCH (RBC) [Entitic mass] 29.6 pg Normal 25.9-34.0 [facility] Comment on above: Performed By: #### C BC ####[facility] Sdhutfiquz[address] [place], [place] [address]Dr. Flaco Otero MCHC (RBC) [Mass/Vol] 33.9 g/dL Normal 29.9-35.2 [facility] Comment on above: Performed By: #### C BC ####[facility] Tiwochrzpc75[address] [place], [place] [address]Dr. Flaco Otero MCV (RBC) [Entitic vol] 87.3 fL Normal 80.0-94.0 [facility] Comment on above: Performed By: #### C BC ####[facility] Mctgudcadu7543 [place] [address]DrJeramie Otero MONO # 1.4 103/ul Critically high 0.3-0.[address] [facility] Comment on above: Performed By: #### C BC ####[facility] Zdttdbswym056[address] [place], [place] [address]DrJeramie Otero Monocytes/100 WBC (Bld) 9.2 % Normal 1.7-12.0 [facility] Comment on above: Performed By: #### C BC ####[facility] Bgbwsmqawf399[address] [place], [place] [address]Dr. Flaco Otero NEUT # 12.3 103/ul Critically high 1.4-6.5 [facility] Comment on above: Performed By: #### C BC ####[facility] Qiodvjvvsw7528 [place] [address]Dr. Flaco Otero Neutrophils/100 WBC (Bld) 83.2 % Critically high 43.0-75.0 [facility] Comment on above: Performed By: #### C BC ####[facility] Qqqbqbiilu8173 [place] [address]Dr. Flaco Otero Platelet mean volume (Bld) [Entitic vol] 10.4 fL Normal 9.5-13.5 [facility] Comment on above: Performed By: #### C BC ####[facility] Iqhnjnwgiu1179 [place] [address]Dr. Flaco Otero PLT 266 103/ul Normal 150-450 [facility] Comment on above: Performed By: #### C BC ####[facility] Odlqnvvfic2378 [place] [address]Dr. Flaco Otreo RBC 4.33 106/ul Critically low 4.70-6.[address] [facility] Comment on above: Performed By: #### C BC ####[facility] Dffnqnprqw5612 [place] [address]Dr. Flaco Otero WBC 14.8 103/ul Critically high 4.0-11.0 [facility] Comment on above: Performed By: #### C BC ####[facility] Zmmqoqitfk4044 [place] [address]Dr. Flaco Otero CRPon 07-30-2022 CRP 12.2 mg/dL Critically high <=1.[address] [facility] Comment on above: Performed By: #### C RP ####[facility] Tjmzicmtmh5725 [place] [address]Dr. Fl[address] O[address]o CT FOOT RT WO CONon 07-30-[address] FOOT RT WO CON Normal [facility] MRI BRAIN WO CONon 2 MRI BRAIN WO CON Normal [facility] PROF 14(COMP METB)on 022 Albumin [Mass/Vol] 2.7 g/dL Critically low 3.4-5.0 [facility] Comment on above: Performed By: #### C MP ####[facility] Wdzbrmyfrq8812 [place] [address]Dr. Purviedith Branden Albumin/Globulin [Mass ratio] 0.7 {ratio} Normal [facility] Comment on above: Performed By: #### C MP ####[facility] Qzdmvqthnb3921 [place] [address]Dr. Flaco Otero ALP [Catalytic activity/Vol] 61 U/L Normal 46-116 [facility] Comment on above: Performed By: #### C MP ####[facility] Wswlrhcmjp030[address] [place], [place] [address]Dr. Flaco Otero ALT [Catalytic activity/Vol] 27 U/L Normal 16-63 [facility] Comment on above: Performed By: #### C MP ####[facility] Jnckeehkyt168[address] [place], [place] [address]Dr. Flaco Otero Anion gap [Moles/Vol] 16.1 mmol/L Normal [facility] Comment on above: Performed By: #### C MP ####[facility] Kkjnusvzdl29[address] [place], [place] [address]Dr. Flaco Otero AST [Catalytic activity/Vol] 39 U/L Critically high 15-37 [facility] Comment on above: Performed By: #### C MP ####[facility] Albhtdmhdj727[address] [place], [place] [address]Dr. Flaco Otero Bilirubin [Mass/Vol] 1.1 mg/dL Critically high 0.2-1.0 [facility] Comment on above: Performed By: #### C MP ####[facility] Ihdpaixsor9[address] [place], [place] [address]Dr. Flaco Otero Calcium [Mass/Vol] 9.0 mg/dL Normal 8.5-10.1 [facility] Comment on above: Performed By: #### C MP ####[facility] Kxhnwnvdsr67[address] [place], [place] [address]Dr. Flaco Otero Chloride [Moles/Vol] 103 mmol/L Normal 98-107 [facility] Comment on above: Performed By: #### C MP ####[facility] Lmcmyzrlkm7913 [place] [address]Dr. Flaco Branden CO2 [Moles/Vol] 21.8 mmol/L Normal 21.0-32.0 [facility] Comment on above: Performed By: #### C MP ####[facility] Jgkntxgckz6057 [place] [address]Dr. Purviedith Otero Creatinine [Mass/Vol] 2.03 mg/dL Critically high 0.70-1.30 [facility] Comment on above: Performed By: #### C MP ####[facility] Zapbxsegjr886[address] [place], [place] [address]Dr. Purviedith Branden EGFR-AF [place]IZ[place] 39 mL/min/1.73m2 Critically low >=60 [facility] Comment on above: Performed By: #### C MP ####[facility] Kygkpjcakx213[address] [place], [place] [address]Dr. Purviedith Branden EGFR-NON AF CITIZEN OF [place] 33 mL/min/1.73m2 Critically low >=60 [facility] Comment on above: Performed By: #### C MP ####[facility] Txacvrkhzy4320[address] [place], [place] [address]Dr. Flaco Otero Globulin (S) [Mass/Vol] 3.9 g/dL Normal [facility] Comment on above: Performed By: #### C MP ####[facility] Yxmwiujefw1332 [place] [address]Dr. Flaco Otero Glucose [Mass/Vol] 122 mg/dL Critically high 74-106 [facility] Comment on above: Performed By: #### C MP ####[facility] Cnbdwyivkt1648 [place] [address]Dr. Flaco Otero Potassium [Moles/Vol] 2.9 mmol/L Critically low 3.5-5.1 [facility] Comment on above: Performed By: #### C MP ####[facility] Appzuzwmhu014[address] [place], [place] [address]Dr. Flaco Otero Protein [Mass/Vol] 6.6 g/dL Normal 6.4-8.2 [facility] Comment on above: Performed By: #### C MP ####[facility] Gdslswihgf8393 [place] [address]Dr. Flaco Otero Sodium [Moles/Vol] 139 mmol/L Normal 136-145 [facility] Comment on above: Performed By: #### C MP ####[facility] Wrgozugxaj405[address] [place], [place] [address]Dr. Flaco Otero Urea nitrogen [Mass/Vol] 30.0 mg/dL Critically high 7.0-18.0 [facility] Comment on above: Performed By: #### C MP ####[facility] Pfpyuonyhd09[address] [place], [place] [address]Dr. Flaco Otero Urea nitrogen/Creatinine [Mass ratio] 14.8 mg/mg Normal [facility] Comment on above: Performed By: #### C MP ####[facility] Uwbmqnhdax1734[address] [place], [place] [address]Dr. Flaco Otero URIC ACID SERUMon 07-30-2022 Urate [Mass/Vol] 8.8 mg/dL Critically high 3.5-7.2 [facility] Comment on above: Performed By: #### U DAVID ####[facility] Tzjhmxdatc9[address] [place], [place] [address]Dr. Flaco Otero AMMONIAon 07-29-2022 Ammonia (P) [Mass/Vol] ug/dL Critically low 11-32 [facility] Comment on above: Performed By: #### A MM ####[facility] Wfwbcnibvv[address] [place], [place] [address]Dr. Flaco Otero BLOOD GASES BTYon 07-29-2022 02 MODE ROOM AIR Normal [facility] Comment on above: Performed By: #### A BG ####[facility] Dgznsupbuc234[address] [place], [place] [address]Dr. Flaco Otero ALLENS TEST Positive Normal [facility] Comment on above: Performed By: #### A BG ####[facility] Rhnoaijxdc4201[address] [place], [place] [address]Dr. Flaco Otero Base excess Calc (Bld) [Moles/Vol] -3.7000 mmol/L Critically low -2.0-2.0 [facility] Comment on above: Performed By: #### A BG ####[facility] Lnwmaojybp8593 [place] [address]Dr. Flaco Otero BIPAP PRESSURE Normal [facility] Comment on above: Performed By: #### A BG ####[facility] Fjnshfboph7414 [place] [address]Dr. Flaco Otero CPAP Normal [facility] Comment on above: Performed By: #### A BG ####[facility] Cwgpvydemn8728 [place] [address]Dr. Flaco Otero FIO2 Shelby [facility] Comment on above: Performed By: #### A BG ####[facility] Uhyqppsqfi739[address] [place], [place] [address]Dr. Flaco Otero HCO3 (Bld) [Moles/Vol] 20.4 mmol/L Critically low 22.0-26. 0 [facility] Comment on above: Performed By: #### A BG ####[facility] Bkgrfhwwex816[address] [place], [place] [address]Dr. Flaco Otero LPM [facility] Comment on above: Performed By: #### A BG ####[facility] Tizmgthzsx0050[address] [place], [place] [address]Dr. Flaco Otero MINUTE VOLUME Normal [facility] Comment on above: Performed By: #### A BG ####[facility] Bckstlrmpv506[address] [place], [place] [address]Dr. Flaco Otero Oxygen (Bld) [Partial pressure] 73.0 mm[Hg] Critically low 80.0-100.0 [facility] Comment on above: Performed By: #### A BG ####[facility] Iumihznaxd3045[address] [place], [place] [address]Dr. Flaco Otero Oxygen saturation in Blood 95.5 % Normal 95.0-100.0 [facility] Comment on above: Performed By: #### A BG ####[facility] Ctapgnatsa8735[address] [place], [place] [address]Dr. Flaco Otero PCO2 29.7 mmHg Critically low 35.0-45.0 [facility] Comment on above: Performed By: #### A BG ####[facility] Tulxvrscva6034 [place] [address]Dr. Flaco Otero PEEP [facility] Comment on above: Performed By: #### A BG ####[facility] Apeoaynyxs3939 [place] [address]Dr. Flaco Otero pH (Bld) 7.445 [pH] Normal 7.350-7.450 [facility] Comment on above: Performed By: #### A BG ####[facility] Gqqvamijze7493 [place] [address]Dr. Flaco Otero PIP [facility] Comment on above: Performed By: #### A BG ####[facility] Pzcjphiybt228[address] [place], [place] [address]Dr. Flaco Otero PS [facility] Comment on above: Performed By: #### A BG ####[facility] Yjzdzahgjl408[address] [place], [place] [address]Dr. Flaco Otero PUNCTURE SITE RR [facility] Comment on above: Performed By: #### A BG ####[facility] Bmuacbzbyd204398 [address] [place], [place] [address]Dr. Flaco Otero RATE [facility] Comment on above: Performed By: #### A BG ####[facility] Fqvcktifym579[address] [place], [place] [address]Dr. Flaco Otero VENT MODE [facility] Comment on above: Performed By: #### A BG ####[facility] Pmehirjlal525[address] [place], [place] [address]Dr. Flaco Otero VT [facility] Comment on above: Performed By: #### A BG ####[facility] Rdxmcxpwse839[address] [place], [place] [address]Dr. Flaco Otero CBC W MANUAL DIFFon 07-29-20 22 ATYPICAL LYMPH # [facility] Comment on above: Performed By: #### C BCMAN ####[facility] Izijpoacta2773 [place] [address]Dr. Flaco Otero ATYPICAL LYMPH % Normal [facility] Comment on above: Performed By: #### C BCMAN ####[facility] Sjjpnknxat9257 [place] [address]Dr. Yiedith Otero BAND # 0.6 103/ul Critically high 0.0-0.[address] [facility] Comment on above: Performed By: #### C BCMAN ####[facility] Tsxlflnnwq0404 [place] [address]Dr. Yilan Otero BAND % 4 % Normal 0-5 [facility] Comment on above: Performed By: #### C BCMAN ####[facility] Odalzjplgz9765[address] [place], [place] [address]Dr. Flaco Otero BASOM # 0.00 103/ul Normal 0.00-0.10 [facility] Comment on above: Performed By: #### C BCGAYATHRI ####[facility] Pmajtyghfn079[address] [place], [place] [address]Dr. Flaco Otero BASOM % 0.0 % Critically low 0.2-2.0 [facility] Comment on above: Performed By: #### C BCGAYATHRI ####[facility] Elmnvltlyd587[address] [place], [place] [address]Dr. Yiedith Otero BLAST # Normal [facility] Comment on above: Performed By: #### C [place] ####[facility] Lkbeuiosfs300[address] [place], [place] [address]Dr. Flaco Otero BLAST % Normal [facility] Comment on above: Performed By: #### C BCGAYATHRI ####[facility] Mrgdxfmqmf3221 [place] [address]Dr. Flaco Otero CORRECTED WBC Normal 4.0-11.0 [facility] Comment on above: Performed By: #### C BCGAYATHRI ####[facility] Nwvykqisst813[address] [place], [place] [address]Dr. Flaco Otero EOS # 0.00 103/ul Normal 0.00-0.70 [facility] Comment on above: Performed By: #### C BCMAN ####[facility] Sxhceykpqs8339 [place] [address]Dr. Flaco Otero EOS% 0.0 % Critically low 0.9-7.0 [facility] Comment on above: Performed By: #### C [place] ####[facility] Vqketxolpb8968 [place] [address]Dr. Flaco Otero HCT 43.8 % Normal 42.0-54.0 [facility] Comment on above: Performed By: #### C [place] ####[facility] Jgkrbhokxr1094 [place] [address]Dr. Flaco Otero HGB 14.6 g/dl Normal 14.0-18.0 [facility] Comment on above: Performed By: #### C [place] ####[facility] Nciwukowyu7666 [place] [address]Dr. Flaco Otero LYMPHM # 0.72 103/ul Critically low 1.20-3.[address] [facility] Comment on above: Performed By: #### C [place] ####[facility] Tffzvzqtdt2391 [place] [address]Dr. Flaco Otero LYMPHM% 5.0 % Critically low 20.5-60.0 [facility] Comment on above: Performed By: #### C [place] ####[facility] Ysygryviwo8827 [place] [address]Dr. Flaco Otero MCH 29.6 pg Normal 25.9-34.0 [facility] Comment on above: Performed By: #### C [place] ####[facility] Zqgtujcstq3833 [place] [address]Dr. Flaco Otero MCHC 33.3 g/dl Normal 29.9-35.2 [facility] Comment on above: Performed By: #### C [place] ####[facility] Tyhjdhllcl[address] [place], [place] [address]Dr. Flaco Otero MCV 88.7 fL Normal 80.0-94.0 [facility] Comment on above: Performed By: #### C [place] ####[facility] Zkcvhczels7659 [place] [address]Dr. Flaco Otero METAMYELOCYTE # Normal [facility] Comment on above: Performed By: #### C [place] ####[facility] Vafwxvaqhp4500 [place] [address]Dr. Flaco Otero METAMYELOCYTE % Normal [facility] Comment on above: Performed By: #### C C[place] ####[facility] Ostjbmmyvw0152 [place], [place] [address]Eq. Flaco Otero MONOM# 0.14 103/ul Critically low 0.30-0.80 [facility] Comment on above: Performed By: #### C [place] ####[facility] Mugwsoisvz4328 [place] [address]Dr. Flaco Otero MONOM% 1.0 % Critically low 1.7-12.0 [facility] Comment on above: Performed By: #### C [place] ####[facility] Hhkalcrmpj0965 [place] [address]Dr. Flaco Otero MPV 10.6 fL Normal 9.5-13.5 [facility] Comment on above: Performed By: #### C [place] ####[facility] Kfpqqhzssz9466 [place] [address]Dr. Flaco Otero MYELOCYTE # Normal [facility] Comment on above: Performed By: #### C [place] ####[facility] Nokdpwfeye4780 [place] [address]Dr. Flaco Otero MYELOCYTE % Normal [facility] Comment on above: Performed By: #### C [place] ####[facility] Vhsofbcayk0500 [place] [address]Dr. Flaco Otero NRBC Normal [facility] Comment on above: Performed By: #### C [place] ####[facility] Vfeqflhkhe4404 [place] [address]Dr. Flaco Otero PLT 267 103/ul Normal 150-450 [facility] Comment on above: Performed By: #### C [place] ####[facility] Sjoghobqmn8540 [place] [address]Dr. Purviedith Branden RBC 4.94 106/ul Normal 4.70-6.10 [facility] Comment on above: Performed By: #### C [place] ####[facility] Uvmgnsjdgd1763 [place], [place] [address]Yx. Flaco Otero RDW 13.6 % Normal 11.0-15.0 [facility] Comment on above: Performed By: #### C [place] ####[facility] Kpdvaozrxf7852 [place], [place] [address]Au. Flaco Otero SEG # 12.96 103/ul Critically high 1.40-6.50 [facility] Comment on above: Performed By: #### C BCGAYATHRI ####[facility] Azoallmpyk0449 [place], [place] [address]Zy. Flaco Otero SEG % 90.0 % Critically high 43.0-75.[address] [facility] Comment on above: Performed By: #### C BCGAYATHRI ####[facility] Xqslsqaqzv4615 [place], [place] [address]Xw. Flaco Otero TOXIC GRANULATION 2+ Normal [facility] Comment on above: Performed By: #### C [place] ####[facility] Torcklbjzl3777 [place], [place] [address]Zs. Flaco Otero WBC 14.4 103/ul Critically high 4.0-11.0 [facility] Comment on above: Performed By: #### C [place] ####[facility] Iqrqokzmit1813 [place], [place] [address]Se. Flaco Otero CT ABD/PELVIS WO CONon 07-29 CT ABD/PELVIS WO CON Normal [facility] CT HEAD WO CONon 07-29-2022 CT HEAD WO CON Normal [facility] CULTURE URINEon 07-29-2022 CULTURE URINE Culture Observations : NO GROWTH. Normal [facility] Comment on above: Performed By: #### U RCX ####[facility] Kazqjulabt0283 [place] [phone]. Flaco Otero ER URINE PROFILEon 2 Bilirubin Ql (U) MODERATE Abnormal NEGATIVE [facility] Comment on above: Performed By: #### EVETTE RAMON ####[facility] Wrinjrgdui7330[address] [place], [place] [address]Dr. Flaco Otero Clarity (U) CLEAR Normal CLEAR [facility] Comment on above: Performed By: #### EVETTE RAMON ####[facility] Hmkjyknozi668[address] [place], [place] [address]Dr. Flaco Otero Color (U) YELLOW Normal YELLOW [facility] Comment on above: Performed By: #### EVERARDO RAMONRO ####[facility] Wehnmaombx769[address] [place], [place] [address]Dr. Flaco Otero ERUAHD A micrscopic examination will be performed if indicated. Normal [facility] Comment on above: Performed By: #### EVETTE RAMON ####[facility] Mcftdglioi088[address] [place], [place] [address]Dr. Flaco Otero Glucose Ql (U) Negative Normal NEGATIVE [facility] Comment on above: Performed By: #### EVERARDO RAMONRO ####[facility] Orksfdfaej680[address] [place], [place] [address]Dr. Flaco Otero Hemoglobin Ql (U) MODERATE Abnormal NEGATIVE [facility] Comment on above: Performed By: #### EVETTE RAMON ####[facility] Kfhmgmfbkq565[address] [place], [place] [address]Dr. Flaco Otero Ketones Ql (U) 40 mg/dl Abnormal NEGATIVE [facility] Comment on above: Performed By: #### EVERARDO RAMONRO ####[facility] Hwkzdxfnko3390[address] [place], [place] [address]Dr. Flaco Otero LEUKOCYTES Negative Normal NEGATIVE [facility] Comment on above: Performed By: #### EVERARDO RAMONRO ####[facility] Dazsyauywc510[address] [place], [place] [address]Dr. Flaco Otero Nitrite Ql (U) Negative Normal NEGATIVE [facility] Comment on above: Performed By: #### EVERARDO RAMONRO ####[facility] Kdnekntmbh348[address] [place], [place] [address]Dr. Flaco Otero pH (U) 5.5 [pH] Normal 5-9 [facility] Comment on above: Performed By: #### EVETTE RAMON ####[facility] Icxoihlugb1651 [place] [address]Dr. Flaco Otero Protein (U) [Mass/Vol] 100 mg/dL Abnormal NEGAT LIANNE/ TRACE [facility] Comment on above: Performed By: #### EVETTE RAMON ####[facility] Kcuosmuwvb7717 [place] [address]Dr. Flaco Otero SPEC GRAVITY >=1.030 Abnormal 1.005-<=1.02 5 [facility] Comment on above: Performed By: #### EVETTE RAMON ####[facility] Pkcgpmymnu5[address] [place], [place] [address]Dr. Flaco Otero UR MICRO IND INDICATED Normal [facility] Comment on above: Performed By: #### EVETTE RAMON ####[facility] Ptvqgqihqs8426[address] [place], [place] [address]Dr. Flaco Otero Urobilinogen Qn (U) 1.0 {Tuan'U}/dL Normal 0.2 - 1. 0 [facility] Comment on above: Performed By: #### EVETTE RAMON ####[facility] Cttwouirxh64[address] [place], [place] [address]Dr. Flaco Otero LACTATE/LACTIC ACIDon 2021 Lactate [Moles/Vol] 2.3 mmol/L Critically high 0.4-1.9 [facility] Comment on above: Performed By: #### L ACT ####[facility] Wltweuczvp480[address] [place], [place] [address]Dr. Flaco Otero PROF 14(COMP METB)on 022 Albumin [Mass/Vol] 2.9 g/dL Critically low 3.4-5.0 [facility] Comment on above: Performed By: #### C MP ####[facility] Hvqbyuiiss80[address] [place], [place] [address]Dr. Flaco Otero Albumin/Globulin [Mass ratio] 0.7 {ratio} Normal [facility] Comment on above: Performed By: #### C MP ####[facility] Mbsxgcuzun6089 [place] [address]Dr. Flaco Otero ALP [Catalytic activity/Vol] 78 U/L Normal 46-116 [facility] Comment on above: Performed By: #### C MP ####[facility] Xxjadxfvvo7574 [place] [address]Dr. Flaco Otero ALT [Catalytic activity/Vol] 33 U/L Normal 16-63 [facility] Comment on above: Performed By: #### C MP ####[facility] Ptkgroqkns0355 [place] [address]Dr. Flaco Otero Anion gap [Moles/Vol] 14.5 mmol/L Normal Th e [facility] Comment on above: Performed By: #### C MP ####[facility] Jbswyyvjca6493 [place] [address]Dr. Flaco Otero AST [Catalytic activity/Vol] 38 U/L Critically high 15-37 [facility] Comment on above: Performed By: #### C MP ####[facility] Fzjxjufmtx0691 [place] [address]Dr. Flaco Otero Bilirubin [Mass/Vol] 1.6 mg/dL Critically high 0.2-1.0 [facility] Comment on above: Performed By: #### C MP ####[facility] Ubdwxxuyud9877 [place] [address]Dr. Flaco Otero Calcium [Mass/Vol] 9.2 mg/dL Normal 8.5-10.1 [facility] Comment on above: Performed By: #### C MP ####[facility] Jpensdgwpx5419 [place] [address]Dr. Flaco Otero Chloride [Moles/Vol] 104 mmol/L Normal 98-107 [facility] Comment on above: Performed By: #### C MP ####[facility] Fczzvfnygz6527 [place] [address]Dr. Flaco Otero CO2 [Moles/Vol] 23.5 mmol/L Normal 21.0-32.0 [facility] Comment on above: Performed By: #### C MP ####[facility] Fszlaffosw8649 [place] [address]Dr. Flaco Otero Creatinine [Mass/Vol] 1.95 mg/dL Critically high 0.70-1.30 [facility] Comment on above: Performed By: #### C MP ####[facility] Tzitwaiywg2483 [place] [address]Dr. Flaco Otero EGFR-AF CITIZEN [place] 41 mL/min/1.73m2 Critically low >=60 [facility] Comment on above: Performed By: #### C MP ####[facility] Gkvlnplgjy7056 [place] [address]Dr. Flaco Otero EGFR-NON AF CITIZEN OF [place] 34 mL/min/1.73m2 Critically low >=60 [facility] Comment on above: Performed By: #### C MP ####[facility] Lfqiexezrd6309 [place] [address]Dr. Flaco Otero Globulin (S) [Mass/Vol] 4.3 g/dL Normal [facility] Comment on above: Performed By: #### C MP ####[facility] Xvnzdvdnnc9586 [place] [address]Dr. Flaco Otero Glucose [Mass/Vol] 169 mg/dL Critically high 74-106 [facility] Comment on above: Performed By: #### C MP ####[facility] Pzlgctevvs5614 [place] [address]Dr. Flaco Otero Potassium [Moles/Vol] 4.0 mmol/L Normal 3.5-5.1 The [facility] Comment on above: Performed By: #### C MP ####[facility] Sprodxhikw8603 [place] [address]Dr. Flaco Otero Protein [Mass/Vol] 7.2 g/dL Normal 6.4-8.2 The [facility] Comment on above: Performed By: #### C MP ####[facility] Cvoaykeeco1217 [place] [address]Dr. Flaco Otero Sodium [Moles/Vol] 138 mmol/L Normal 136-145 [facility] Comment on above: Performed By: #### C MP ####[facility] Erykxdynit0358 [place] [address]Dr. Flaco Otero Urea nitrogen [Mass/Vol] 29.0 mg/dL Critically high 7.0-18.0 The [facility] Comment on above: Performed By: #### C MP ####[facility] Qcsquscqek7113 [place] [address]Dr. Flaco Otero Urea nitrogen/Creatinine [Mass ratio] 14.9 mg/mg Normal [facility] Comment on above: Performed By: #### C MP ####[facility] Ziozxfrqoc2247 [place] [address]Dr. Purviedith Branden URINE MICROSCOPIC ONLYon AMORPHOUS CRYSTALS MODERATE Normal The [facility] Comment on above: Performed By: #### EVERARDO RAMONRO ####[facility] Etdsyvibtt[address] [place], [place] [address]Dr. Flaco Otero BACTERIA MODERATE Abnormal NONE SEEN [facility] Comment on above: Performed By: #### EVERARDO RAMONRO ####[facility] Sdlhptfncq5[address] [place], [place] [address]Dr. Flaco Otero Bacteria identified Cx Nom (U) INDICATED Normal [facility] Comment on above: Performed By: #### EVERARDO RAMONRO ####[facility] Wbxxiotity10[address] [place], [place] [address]Dr. Flaco Otero CAST SEEN Abnormal NONE SEEN [facility] Comment on above: Performed By: #### EVERARDO RAMONRO ####[facility] Ueriqzbdfu0588 [place] [address]Dr. Flaco Otero COARSE GRANULAR CAST RARE Normal The [facility] Comment on above: Performed By: #### JOHNATHAN RAMONICRO ####[facility] Iknkfingma9930 [place] [address]Dr. Flaco Otero Crystals LM Nom (Urine sed) SEEN Abnormal NONE SEEN The [facility] Comment on above: Performed By: #### Riccardo SENA UMICRO ####[facility] Hdxfeexhnv8439 [place] [address]Dr. Flaco Otero Epithelial cells LM Ql (Urine sed) RARE Normal NONE SEEN /RARE The [facility] Comment on above: Performed By: #### EVERARDO RAMONRO ####[facility] Oihdqtsyyk1533 [place] [address]Dr. Flaco Otero MUCOUS TRACE Abnormal NONE SEEN The [facility] Comment on above: Performed By: #### EVETTE RAMON ####[facility] Khfmfduwkb3344 [place] [address]Dr. Flaco Otero RBC 0-2 Normal 0-2 [facility] Comment on above: Performed By: #### EVETTE RAMON ####[facility] Dqrgykuika9055 [place] [address]Dr. Flaco Otero WBC 0-2 Abnormal NONE SEEN The [facility] Comment on above: Performed By: #### EVETTE RAMON ####[facility] Frazpupehc3746 [place] [address]Dr. Flaco Otero BNPon 07-28-2022 Natriuretic peptide B (Bld) [Mass/Vol] 258.0 pg/mL Normal <=900.0 The [facility] Comment on above: Performed By: #### C MP, BNP, HSTROPN ####[facility] Nfnrfmomfw9[address] [place], [place] [address]Dr. Flaco Otero CBC W MANUAL DIFFon 07-28-20 22 ATYPICAL LYMPH # 0.21 103/ul Normal The [facility] Comment on above: Performed By: #### Corina GUTHRIE ####[facility] Amutksxely2908 [place] [address]Dr. Flaco Branden ATYPICAL LYMPH % 1 % Normal [facility] Comment on above: Performed By: #### C BCGAYATHRI ####[facility] Grvjwpqwnh9181 [place] [address]Dr. Flaco Otero BAND # 0.0 103/ul Normal 0.0-0.3 [facility] Comment on above: Performed By: #### C [place] ####[facility] Ojwwgialpw1556 [place] [address]Dr. Flaco Otero BAND % 0 % Normal 0-5 [facility] Comment on above: Performed By: #### C [place] ####[facility] Bdosewswfy6367 [place] [address]Dr. Flaco Otero BASOM # 0.00 103/ul Normal 0.00-0.10 [facility] Comment on above: Performed By: #### C BCMAN ####[facility] Mfcvpvzefi0874 [place] [address]Dr. Flaco Otero BASOM % 0.0 % Critically low 0.2-2.0 [facility] Comment on above: Performed By: #### C BCMAN ####[facility] Mkjvmiapvk4219 [place] [address]Dr. Flaco Otero BLAST # Normal [facility] Comment on above: Performed By: #### C BCMAN ####[facility] Xtaettqfgb2682 [place] [address]Dr. Flaco Otero BLAST % Normal [facility] Comment on above: Performed By: #### C BCGAYATHRI ####[facility] Bvoseciorp9[address] [place], [place] [address]Dr. Flaco Otero CORRECTED WBC Normal 4.0-11.0 [facility] Comment on above: Performed By: #### C BCMAN ####[facility] Kkldbkvhym40[address] [place], [place] [address]Dr. Flaco Otero EOS # 0.00 103/ul Normal 0.00-0.70 [facility] Comment on above: Performed By: #### C BCMAN ####[facility] Ivbywtzcgj8492 [place] [address]Dr. Flaco Otero EOS% 0.0 % Critically low 0.9-7.0 [facility] Comment on above: Performed By: #### C BCMAN ####[facility] Zvibndleyy7538 [place] [address]Dr. Flaco Otero HCT 48.8 % Normal 42.0-54.0 [facility] Comment on above: Performed By: #### C BCMAN ####[facility] Gvxfdgcgps5789 [place] [id number]. Flaco Otero HGB 16.2 g/dl Normal 14.0-18.0 [facility] Comment on above: Performed By: #### C [place] ####[facility] Zdhroyztuq5110 [place] [address]Dr. Flaco Otero LYMPHM # 0.62 103/ul Critically low 1.20-3.[address] [facility] Comment on above: Performed By: #### C [place] ####[facility] Magcrcfgxx4698 [place] [address]Dr. Flaco Otero LYMPHM% 3.0 % Critically low 20.5-60.0 [facility] Comment on above: Performed By: #### C [place] ####[facility] Soujqklcuc6899 [place] [address]Dr. Flaco Otero MCH 29.5 pg Normal 25.9-34.0 [facility] Comment on above: Performed By: #### C [place] ####[facility] Qeplbimrzh8201 [place] [address]Dr. Flaco Otero MCHC 33.2 g/dl Normal 29.9-35.2 [facility] Comment on above: Performed By: #### C [place] ####[facility] Ccptasmbwh0970 [place] [address]Dr. Flaco Otero MCV 88.7 fL Normal 80.0-94.0 [facility] Comment on above: Performed By: #### C [place] ####[facility] Twurnnrfqu8363 [place] [address]Dr. Flaco Otero METAMYELOCYTE # Normal The [facility] Comment on above: Performed By: #### C [place] ####[facility] Wkfdhnfffo9829 [place] [address]Dr. Flaco Otero METAMYELOCYTE % Normal [facility] Comment on above: Performed By: #### C [place] ####[facility] Obvmjrlqzg3631 [place] [address]Dr. Flaco Otero MONOM# 2.28 103/ul Critically high 0.30-0.80 [facility] Comment on above: Performed By: #### C [place] ####[facility] Hiegrghmtw4087 [place] [address]Dr. Flaco Otero MONOM% 11.0 % Normal 1.7-12.0 The [facility] Comment on above: Performed By: #### C [place] ####[facility] Flkqqvyjct7223 [place] [address]Dr. Flaco Otero MPV 10.5 fL Normal 9.5-13.5 The [facility] Comment on above: Performed By: #### C [place] ####[facility] Bsosfcuzlx1818 [place] [address]Dr. Flaco Otero MYELOCYTE # Normal [facility] Comment on above: Performed By: #### C [place] ####[facility] Oespxlkqeg5709 [place] [address]Dr. Flaco Otero MYELOCYTE % Normal The [facility] Comment on above: Performed By: #### C [place] ####[facility] Dkgujeoahf6587 [place] [address]Dr. Flaco Otero NRBC Normal The [facility] Comment on above: Performed By: #### C [place] ####[facility] Ehbrvsjhpj3308 [place] [address]Dr. Flaco Otero PLT 317 103/ul Normal 150-450 The [facility] Comment on above: Performed By: #### C [place] ####[facility] Guhyeiowtf0007 [place] [address]Dr. Flaco Otero RBC 5.50 106/ul Normal 4.70-6.10 The [facility] Comment on above: Performed By: #### C [place] ####[facility] Vyljuygcbk4894 [place] [address]Dr. Flaco Otero RDW 13.6 % Normal 11.0-15.0 The [facility] Comment on above: Performed By: #### C [place] ####[facility] Qlrpjlwlyq9281 [place] [address]Dr. Flaco Otero SEG # 17.59 103/ul Critically high 1.40-6.50 [facility] Comment on above: Performed By: #### C [place] ####[facility] Nfewrnnedw1750 [place], [place] [address]La. Flaco Otero SEG % 85.0 % Critically high 43.0-75.[address] [facility] Comment on above: Performed By: #### C BCMAN ####[facility] Miiyjasspo2815 [place], [place] [address]Sk. Flaco Otero WBC 20.7 103/ul Critically high 4.0-11.0 The [facility] Comment on above: Performed By: #### C BCMAN ####[facility] Tljaxjvval1144 [place], [place] [address]Tn. Flaco Otero CULTURE BLOODon 07-28-2022 Microscopic examination of blood, culture Culture Observations: NO GROWTH AT 5 DAYS. Normal [facility] Comment on above: Performed By: #### B LDCX2 ####[facility] Shqxzkzmii6373 [place], [place] [address]Yp. Flaco Otero Microscopic examination of blood, culture Culture Observations: NO GROWTH AT 5 DAYS. Normal [facility] Comment on above: Performed By: #### B LDCX1 ####[facility] Pyxyyigtbb9594 [place], [place] [address]Ft. Flaco Otero Covid-19 PCR (CVDTB)on 06-30 SARS-CoV-2 (COVID-19) RNA MARCO ANTONIO+probe Ql (Unsp spec) Not detected Normal NOT DETECTED The [facility] Comment on above: Result Comment: [...] for this test is supported by the [place] of Health and Human Service's declaration that [...] be used). Performed By: #### C VDTBH ####[facility] Fibqyvdgrw[address] [place], [place] [address]Dr. Flaco Otero INFLUENZA A AND B AGon 07-28 INFLUENZA A AG Negative Normal NEGATIVE SEE COMMENT The [facility] Comment on above: Performed By: #### I NFLUAB ####[facility] Tyzniemami[address] [place], [place] [address]Dr. Flaco Otero INFLUENZA B AG Negative Normal NEGATIVE SEE COMMENT [facility] Comment on above: Performed By: #### I NFLUAB ####[facility] Bxdtjdwmof[address] [place], [place] [address]Dr. Flaco Otero INTERNAL CONTROLS Within Normal Limits Normal Wi thin Normal Limits [facility] Comment on above: Performed By: #### I NFLUAB ####[facility] Etwugtfvon[address] [place], [place] [address]Dr. Flaco Otero LACTATE/LACTIC ACIDon 2021 Lactate [Moles/Vol] 2.6 mmol/L Critically high 0.4-1.9 [facility] Comment on above: Performed By: #### L ACT ####[facility] Iydftnjarl[address] [place], [place] [address]Dr. Flaco Otero PROF 14(COMP METB)on 022 Albumin [Mass/Vol] 3.7 g/dL Normal 3.4-5.0 [facility] Comment on above: Performed By: #### C MP, BNP, HSTROPN ####[facility] Jpzamdcuoc[address] [place], [place] [address]Dr. Flaco Otero Albumin/Globulin [Mass ratio] 0.8 {ratio} Normal [facility] Comment on above: Performed By: #### C MP, BNP, HSTROPN ####[facility] Kjumkvmiuz[address] [place], [place] [address]Dr. Flaco Otero ALP [Catalytic activity/Vol] 95 U/L Normal 46-116 The [facility] Comment on above: Performed By: #### C MP, BNP, HSTROPN ####[facility] Gibvrpmuff9532 [place] [address]Dr. Flaco Otero ALT [Catalytic activity/Vol] 38 U/L Normal 16-63 [facility] Comment on above: Performed By: #### C MP, BNP, HSTROPN ####[facility] Ovrpzxpicy2037 [place] [address]Dr. Flaco Otero Anion gap [Moles/Vol] 16.8 mmol/L Normal Th e [facility] Comment on above: Performed By: #### C MP, BNP, HSTROPN ####[facility] Vprncsadnp3625 [place] [address]Dr. Flaco Otero AST [Catalytic activity/Vol] 44 U/L Critically high 15-37 [facility] Comment on above: Performed By: #### C MP, BNP, HSTROPN ####[facility] Fowgjyixzf1517 [place] [address]Dr. Flaco Otero Bilirubin [Mass/Vol] 2.7 mg/dL Critically high 0.2-1.0 [facility] Comment on above: Performed By: #### C MP, BNP, HSTROPN ####[facility] Gsvtseonfu[address] [place], [place] [address]Dr. Flaco Otero Calcium [Mass/Vol] 9.8 mg/dL Normal 8.5-10.1 [facility] Comment on above: Performed By: #### C MP, BNP, HSTROPN ####[facility] [address]vjwttmg[address] [place], [place] [address]Dr. Flaco Otero Chloride [Moles/Vol] 102 mmol/L Normal 98-107 [facility] Comment on above: Performed By: #### C MP, BNP, HSTROPN ####[facility] Lsesrbybnq[address] [place], [place] [address]Dr. Flaco Otero CO2 [Moles/Vol] 23.0 mmol/L Normal 21.0-32.0 [facility] Comment on above: Performed By: #### C MP, BNP, HSTROPN ####[facility] Uosoxjnoji[address] [place], [place] [address]Dr. Flaco Otero Creatinine [Mass/Vol] 2.22 mg/dL Critically high 0.70-1.30 [facility] Comment on above: Performed By: #### C MP, BNP, HSTROPN ####[facility] Vacaokairt6334 [place] [address]Dr. Flaco Otero EGFR-AF CITIZEN OF [place] 36 mL/min/1.73m2 Critically low >=60 [facility] Comment on above: Performed By: #### C MP, BNP, HSTROPN ####[facility] Rzzmdukfru3149 [place] [address]Dr. Flaco Otero EGFR-NON AF CITIZEN OF [place] 29 mL/min/1.73m2 Critically low >=60 [facility] Comment on above: Performed By: #### C MP, BNP, HSTROPN ####[facility] Nrwumzjxzd3611 [place] [address]Dr. Flaco Otero Globulin (S) [Mass/Vol] 4.7 g/dL Normal [facility] Comment on above: Performed By: #### C MP, BNP, HSTROPN ####[facility] Hswzhmgzuf4896 [place] [address]Dr. Flaco Otero Glucose [Mass/Vol] 145 mg/dL Critically high 74-106 [facility] Comment on above: Performed By: #### C MP, BNP, HSTROPN ####[facility] Vrvkxzimuj7886 [place] [address]Dr. Flaco Otero Potassium [Moles/Vol] 3.8 mmol/L Normal 3.5-5.1 [facility] Comment on above: Performed By: #### C MP, BNP, HSTROPN ####[facility] Evzgoaujip5851 [place] [address]Dr. Flaco Otero Protein [Mass/Vol] 8.4 g/dL Critically high 6.4-8.2 [facility] Comment on above: Performed By: #### C MP, BNP, HSTROPN ####[facility] Yyvnivgaec9989 [place] [address]Dr. Flaco Otero Sodium [Moles/Vol] 138 mmol/L Normal 136-145 The [facility] Comment on above: Performed By: #### C MP, BNP, HSTROPN ####[facility] Tpsuuxvkgn3282 [place] [address]Dr. Flaco Otero Urea nitrogen [Mass/Vol] 29.0 mg/dL Critically high 7.0-18.0 [facility] Comment on above: Performed By: #### C MP, BNP, HSTROPN ####[facility] Yswxxkdlkx2253 [place] [address]Dr. Flaco Otero Urea nitrogen/Creatinine [Mass ratio] 13.1 mg/mg Normal The [facility] Comment on above: Performed By: #### C MP, BNP, HSTROPN ####[facility] Jjyosckfzy9[address] [place] [address]Dr. Flaco Otero TROPONIN, HIGH SENSITIVITYon 07-28-2022 HSTROP 13.6 pg/mL Normal 4.0-76.1 The [facility] Comment on above: Result Comment: CUT- OFF POINTS HAVE BEEN ESTABLISHED BASED ON THE FOURTH UNIVERSAL DEFINITIONS OF MYOCARDIALINFARCTION. THE UPPER REFERENCE LIMIT (URL) OF TROPONIN, DEFINED THE 99TH PERCENTILE OFcTnI DISTRIBUTION IN A REFERENCE POPULATION, HAS BEEN CONFIRMED THE DECISION THRESHOLDFOR [place] DIAGNOSIS. Performed By: #### C MP, BNP, HSTROPN ####[facility] Qcbivsxmhz9706 [place] [address]Dr. Flaco Otero XR CHEST 1 Von 07-28-2022 XR CHEST 1 V Normal The [facility] Covid-19 PCR (CVDTBH)on 06-29 SARS-CoV-2 (COVID-19) RNA MARCO ANTONIO+probe Ql (Unsp spec) Not detected Normal NOT DETECTED The [facility] Comment on above: Result Comment: This test is not yet approved or cleared by the [place] FDA. When there are no FDA-approved or cleared tests available, and other criteria are met, FDA can make tests available under an emergency access mechanism called an Emergency Use Authorization (EUA). The EUA for this test is supported by the [place] of Health and Human Service's (HHS's) declaration [...] with SARS-CoV-2. Performed By: #### C VDTB ####[facility] Bildnlwbbb[address] [place], [place] [address]Dr. Flaco Otero PROF CHEM 8 (BAS METB)on Anion gap [Moles/Vol] 11.2 mmol/L Normal [facility] Comment on above: Performed By: #### B MP ####[facility] Hbmotmmrsx[address] [place], [place] [address]Dr. Flaco Otero Calcium [Mass/Vol] 8.7 mg/dL Normal 8.5-10.1 [facility] Comment on above: Performed By: #### B MP ####[facility] Vznpncgway[address] [place], [place] [address]Dr. Flaco Otero Chloride [Moles/Vol] 108 mmol/L Critically high 98-107 [facility] Comment on above: Performed By: #### B MP ####[facility] Vyympgeaqv[address] [place], [place] [address]Dr. Flaco Otero CO2 [Moles/Vol] 26.9 mmol/L Normal 21.0-32.0 [facility] Comment on above: Performed By: #### B MP ####[facility] Cbtdlqufri[address] [place], [place] [address]Dr. Flaco Otero Creatinine [Mass/Vol] 1.77 mg/dL Critically high 0.70-1.30 [facility] Comment on above: Performed By: #### B MP ####[facility] Lehoskcowc[address] [place], [place] [address]Dr. Flaco Otero EGFR-AF CITIZEN OF [place] 46 mL/min/1.73m2 Critically low >=60 [facility] Comment on above: Performed By: #### B MP ####[facility] Zkvvdwuzod0660 [place] [address]Dr. Flaco Branden EGFR-NON AF CITIZEN OF [place] 38 mL/min/1.73m2 Critically low >=60 [facility] Comment on above: Performed By: #### B MP ####[facility] Leqytotuxu6893 [place] [address]Dr. Flaco Otero Glucose [Mass/Vol] 89 mg/dL Normal 74-106 [facility] Comment on above: Performed By: #### B MP ####[facility] Ndqnxgzpwv7291 [place] [address]Dr. Flaco Otero Potassium [Moles/Vol] 4.1 mmol/L Normal 3.5-5.1 [facility] Comment on above: Performed By: #### B MP ####[facility] Rdapldzpls0571 [place] [address]Dr. Flaco Otero Sodium [Moles/Vol] 142 mmol/L Normal 136-145 [facility] Comment on above: Performed By: #### B MP ####[facility] Fwytuokmkn8617 [place] [address]Dr. Flaco Otero Urea nitrogen [Mass/Vol] 15.0 mg/dL Normal 7.0-18.0 [facility] Comment on above: Performed By: #### B MP ####[facility] Zmqbezlknb2210 [place] [address]Dr. Flaco Otero Urea nitrogen/Creatinine [Mass ratio] 8.5 mg/mg Normal [facility] Comment on above: Performed By: #### B MP ####[facility] Tifmtmkbvb8757 [place] [address]Dr. Flaco Otero XR FOOT RT MIN 3 VIEWSon XR FOOT RT MIN 3 VIEWS Normal [facility] Vital Signs Date Time Vital Sign Value Performing Clinician Bill lity 09-18-2023 13:33-0500 Body height 170.2 cm Mel Camacho MD Work Phone: [facility] 09-18-2023 13:33-0500 Body mass index (BMI) [Ratio] 23.49 kg/m2 Mel Camacho MD Work Phone: [facility] [place] 09-18-2023 13:33-0500 Body weight 68.04 kg Mel Camacho MD Work Phone: [facility] [place] 09-18-2023 13:33-0500 Diastolic blood pressure 79 mm[Hg] Mel Camacho MD Work Phone: [facility] [place] 09-18-2023 13:33-0500 Heart rate 61 /min Mel Camacho MD Work Phone: [facility] [place] 09-18-2023 13:33-0500 Systolic blood pressure 121 mm[Hg] Mel Camacho MD Work Phone: [facility] [place] 05-12-2023 13:51-0400 Blood Pressure Location Baljit DOSHI [facility] [place] 05-12-2023 13:51-0400 Diastolic blood pressure 74 mm[Hg] Baljit DOS[facility] 05-12-2023 13:51-0400 Heart rate 70 /min Baljit DOS[facility] 05-12-2023 13:51-0400 Respiratory rate 16 /min Baljit DOSHI [facility] [place] 05-12-2023 13:51-0400 Systolic blood pressure 120 mm[Hg] Baljit DOSHI [facility] [place] Encounters Encounter Date Encounter Type Care Provider Facility Start: 06-01-2024 End: [facility] Start: 04-28-2024 ambulatory [facility] Start: 03-23-2024 ambulatory MISSAEL CHAPARRO [facility] Start: 03-18-2024 ambulatory SPENCER WALSHUBB [facility] Start: 02-12-2024 End: 02-12-2024 ambulatory [facility] Start: 12-08-2023 End: 12-08-2023 ambulatory [facility] Start: 09-18-2023 End: 09-18-2023 ambulatory [facility] Start: 09-18-2023 End: 09-18-2023 Office outpatient visit 25 minutes Mel Camacho MD Work Phone: [facility] Comment on above: Parkinsonism, unspec ified Parkinsonism type (Primary Dx); Tardive dyskinesia; Mild dementia with agitation, unspecified dementia type (CMS-HCC); Gait instability; Urinary retention; Spondylosis of cervical spine; Sundowning; Chronic bilateral low back pain, unspecified whether sciatica present; Insomnia due to medical condition Start: 09-14-2023 End: 09-14-2023 ambulatory [facility] Start: 09-10-2023 End: 09-10-2023 ambulatory [facility] Start: 07-21-2023 End: 07-21-2023 ambulatory [facility] Start: 05-27-2023 End: 05-28-2023 ambulatory Baljit DOSHI Facility:CD:[id number] Start: 05-12-2023 End: 05-13-2023 ambulatory Baljit DOSHI Facility:[facility] Start: 05-12-2023 End: 05-12-2023 Patient encounter procedure Baljit DOSHI [facility] Start: 02-09-2023 End: 02-10-2023 Evaluation and management [...] Start: 09-25-2022 Encounter for preprocedural laboratory examination [facility] [place] [facility] Start: 09-25-2022 End: 09-25-[address] FABIAN KENNEDY Facility:[facility]1 Start: 09-22-2022 End: 09-23-2022 ambulatory [facility] [place] [facility] Facility:H1 Start: 09-22-2022 End: 09-23-2022 Encounter for preprocedural laboratory examination [facility] Facility:[facility]1 Start: 09-15-2022 Encounter for preprocedural cardiovascular examination [facility] Start: 09-11-2022 End: 09-12-2022 ambulatory [facility] [place] [facility] Facility:H1 Start: 08-15-2022 End: 08-15-2022 ambulatory JOVANI UMANZOR . Facility:[facility]1 Start: 07-30-2022 End: 08-02-2022 Evaluation and management of inpatient DR LIBRADO MIKE . Facility:[facility]1 Start: 07-24-2022 End: 07-25-2022 ambulatory [facility] [place] [facility] Facility:H1 Start: 07-17-2022 Encounter for preprocedural cardiovascular examination [facility] [place] [facility] Start: 07-17-2022 Encounter for preprocedural laboratory examination [facility] [place] [facility] Start: 07-15-2022 End: 07-16-2022 ambulatory [facility] [place] [facility] Facility:H1 Start: 07-15-2022 End: 07-16-2022 Encounter for preprocedural cardiovascular examination [facility] [place] [facility] Facility:H1 Start: 06-18-2022 End: 06-19-[address] LIBRADO MIKE . Facility:[facility]1 Procedures Date Procedure Procedure Detail Performing Clinician Start: 02-12-2024 Follow-up visit Follow-up MEL MONTENEGRO Start: 09-18-2023 Adult depression scr eening assessment Ehesther Camacho MD Work Phone: Start: 09-19-2020 Excisional biopsy Karlos DOSHI Comment on above: mid back Start: 06-20-2020 Laparoscopic cholecystectomy Baljit DOSHI Start: 09-28-2019 Brachytherapy of [place] using fluoroscopic guidance Baljit DOSHI Start: 07-30-2015 Excision of lumbar intervertebral disc Baljit DOSHI Comment on above: L3-L5 Start: 08-14-2014 Colonoscopy Baljit NI LL Start: 02-04-2008 Colonoscopy Baljit NI LL Bone graft Baljit DOSHI Comment on above: right great toe Skin graft material (substance) Baljit DOSHI Comment on above: right great toe Vasectomy Baljit DOSHI Plan of Treatment Date Care Activity Detail Author Start: 09-18-2024 Adult BMI Screening Adult BMI Screening [facility] [place] Start: 09-18-2024 Depression Screening Depression Screening [facility] [place] Start: 09-18-2024 Tobacco Screening Tobacco Screening [facility] [place] Start: 02-12-2024 End: 02-12-2024 Patient encounter procedure 02/12/2024 2:00 PM EDT Office Visit [facility] [address] [place] [id number] Mel Camacho MD [address] [place] [address], [address] [address] [facility] Start: 05-29-2023 COVID-19 Vaccine ( season) COVID-19 Vaccine ( season) [facility] Start: 05-29-2023 Influenza vaccination Influenza Vaccine [facility] [place] Start: 02-08-2016 Fall Risk Screening Fall Risk Screening [facility] [place] Start: 1970 Administration of varicella zoster vaccine Zoster (Shingles) Vaccine (1 of 2) [facility] [place] Start: 1970 DTaP,Tdap and Td Vaccines (1 - Tdap) DTaP,Tdap and Td Vaccines (1 - Tdap) [facility] [place] Start: 1950 Medicare Annual Wellness Visit Medicare Annual Wellness Visit [facility] [place] Immunizations Immunization Date Immunization Notes Care Provider Fa cristoty 09-15-2021 Influenza Vaccine, Quadrivalent, Adjuvanted Mel Camacho MD Work Phone: [facility] [place] 09-15-2021 influenza virus vaccine, unspecified formulation Mel Camacho MD Work Phone: [facility] [place] 07-22-2021 SARS-CoV-2 (COVID-19 ) mRNA-1273 vaccine Baljit DOSHI [facility] Comment on above: Result Comment: 2022: [id number] 12-19-2020 SARS-CoV-2 (COVID-19 ) mRNA-1273 vaccine Baljit DOSHI [facility] 11-22-2020 SARS-CoV-2 (COVID-19 ) mRNA-1273 vaccine Baljit DOSHI [facility] 06-05-2020 influenza, seasonal, injectable Mel Camacho MD Work Phone: [facility] [place] 05-28-2020 pneumococcal conjuga te vaccine, 13 valent Mel Camacho MD Work Phone: [facility] [place] Payers Date Payer Category Payer Medicare [employer] MEDICARE A ETNA MEDICARE PLAN (HMO)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
[2024-06-11 09:49] LABS: Bilirubin Urine NEGATIVE (NEGATIVE); Blood Urine NEGATIVE (NEGATIVE); Clarity Urine CLEAR (CLEAR); Color Urine LT. YELLOW (YELLOW); Glucose Urine UA NEGATIVE (NEGATIVE); Ketones Urine NEGATIVE (NEGATIVE); Leukocyte Esterase Urine NEGATIVE (NEGATIVE); Nitrite Urine NEGATIVE (NEGATIVE); Protein Urine NEGATIVE (NEG/TRACE); Specific Gravity Urine 1.025 (1.005-1.025); Urobilinogen Urine 0.2 EU/dL (0.2-1.0)
[2024-06-11 09:54] LABS: Basophils Absolute Auto 0.1 10^3/uL (0.0-0.1); Basophils Percent Auto 0.7 % (0.2-2.0); Eosinophils Absolute Auto 0.1 10^3/uL (0.0-0.7); Eosinophils Percent Auto 1.1 % (0.9-7.0); Hematocrit 46.2 % (42.0-54.0); Hemoglobin 14.8 g/dL (14.0-18.0); Immature Granulocytes Abs Auto 0.02 10^3/uL (0.00-0.03); Immature Granulocytes Pct Auto 0.3 % (0.0-0.5); Lymphocytes Absolute Auto 1.5 10^3/uL (1.2-3.8); Lymphocytes Percent Auto 20.6 % (20.5-60.0); Mean Corpuscular Hemoglobin 27.1 pg (25.9-34.0); Mean Corpuscular Volume 84.6 fL (80.0-94.0); Mean Platelet Volume 9.7 fL (9.5-13.5); Monocytes Absolute Auto 0.7 10^3/uL (0.3-0.8); Monocytes Percent Auto 9.4 % (1.7-12.0); Neutrophils Absolute Auto 4.8 10^3/uL (1.4-6.5); Neutrophils Percent Auto 67.9 % (43.0-75.0); Platelet Count 296 10^3/uL (150-450); Red Blood Count 5.46 10^6/uL (4.70-6.10); Red Cell Distribution Width 15.5 % (11.0-15.0); White Blood Count 7.1 10^3/uL (4.0-11.0)
[2024-06-11 09:59] LABS: Microalbum Creatinine Ratio Ur 18.6 mg/g (0.0-29.9); Microalbumin Urine Random 2.6 mg/dL (<=30.0)
[2024-06-11 10:03] LABS: Bacteria Urine NONE SEEN #/HPF (NONE SEEN); Cast Seen? NONE SEEN #/LPF (NONE SEEN); Crystals Seen? None Seen #/HPF (None Seen); Mucus Urine NONE SEEN (NONE SEEN); RBC Urine 0-2 #/HPF (0-2); Squamous Epithelial Cell Urine NONE SEEN #/LPF (NONE/RARE); WBC Urine NONE SEEN #/HPF (NONE SEEN)
[2024-06-11 10:06] LABS: Anion Gap 13.4; BUN Creatinine Ratio 6.9; Calcium 8.9 mg/dL (8.5-10.1); Carbon Dioxide 24.8 mmol/L (21.0-32.0); Chloride 101 mmol/L (98-107); Estimated GFR (African America 43 (>=60); Estimated GFR (Non-African Ame 35 (>=60); Glucose 94 mg/dL (74-106); Potassium 4.2 mmol/L (3.5-5.1); Sodium 135 mmol/L (136-145)
[2024-06-13 13:08] LABS: PTH, Intact 75 pg/mL (15-65)
== END 2024-06-11 09:29 | disposition home or self-care (01) ==
LOC: LAB 09:28
PROVIDERS: PCP Family Medicine
DX: N18.32 Chronic kidney disease, stage 3b (principal)
CPT/HCPCS: 36415; 80048; 81001; 82043; 82570; 83970; 85025

== ENCOUNTER 2024-09-03 11:37 | Emergency (ER) | payer MEDICARE, SELFPAY ==
[2024-09-03] VITALS (27 sets, daily range): BP systolic 120–149; BP diastolic 73–91; PULSE 47–75; TEMP 36.3; O2SAT 95–98; BMI 20.8
--- NOTE | 2024-09-03 11:30 | ECG_ITS ---
The [facility] Test Date: 2024-09-03 Pat Name: EFRAÍN RAMON Department: Room: - Gender: Male Cornetist: : 1950 Requested By: LIBRADO HELM Order Number: [id number] Reading MD: LIBRADO HELM Measurements Intervals [place] Rate: 51 P: -30080 NE: -84380 QRS: -32 QRSD: 84 T: 39 QT: 412 QTc: 388 Interpretive Statements 1210 Atrial fibrillation 7200 Abnormal left axis deviation 8003 Consistent with pulmonary disease 9150 abnormal ECG Compared to ECG 10/01/2023 13:39:40 Left-axis deviation now present Sinus rhythm no longer present Left anterior fascicular block no longer present Electronically Signed On 09-05-2024 5:28:27 EST by LIBRADO HELM
--- NOTE | 2024-09-03 11:31 | XR_ITS ---
The [address] [address] Patient Name: EFRAÍN RAMON MRN: [id number] date: 1950 Sex: M Assigned Patient Location: ED.MAIN Current Patient Location: ED.MAIN Accession/Order Number: [id number] Exam Date: 09/03/2024 11:50 Report Date: 09/03/2024 12:55 At the request of: ODELL RODRÍGUEZ Procedure: XR chest 1V EXAM: XR chest 1V HISTORY: Syncope . Prostate cancer. COPD. Fall from standing. COMPARISON: 10/01/2023 and earlier TECHNIQUE: AP upright chest x-ray. FINDINGS: Visualized lungs clear without consolidation, contusion or suspicious lung lesion. Opaque density over the lower left chest. Heart size prominent unchanged. Surgical clips near the left hilum. No pleural effusion or pneumothorax. No fracture. XR/XR chest 1V IMPRESSION: Stable chest x-ray, no acute findings. Electronically authenticated by: RUKHSANA BANKS Date: 09/03/2024 12:55
--- NOTE | 2024-09-03 11:31 | CT_ITS ---
The [address] [address] Patient Name: EFRAÍN RAMON MRN: [id number] date: 1950 Sex: M Assigned Patient Location: ED.MAIN Current Patient Location: ED.MAIN Accession/Order Number: [id number] Exam Date: 09/03/2024 11:50 Report Date: 09/03/2024 12:34 At the request of: ODELL RODRÍGUEZ Procedure: CT head/brain wo con EXAM: CT head/brain wo con HISTORY: Syncope, headache COMPARISON: 10/01/2023 TECHNIQUE: Multiple computed tomograms of the head were obtained, with sagittal and coronal reconstructions. Radiation reduction techniques and algorithms were utilized during the study. FINDINGS: The ventricles aren't enlarged, the lateral ventricles are symmetric and the third ventricles in the midline. The sylvian fissures and cortical sulci are mildly enlarged. There is no evidence of an intracranial hemorrhage, mass lesion or apparent acute infarct. Slight patchy diminished attenuation is seen in the deep white matter diffusely. The cerebellum and visualized brainstem are intact. A small amount of mucosal thickening is seen in the sphenoid and ethmoid sinuses. The middle ears are aerated. The mastoid sinuses are clear. There is no apparent acute skull fracture. Arterial vascular calcifications are seen in the distal vertebral and distal internal carotid arteries. CT/CT head/brain wo con IMPRESSION: There is no evidence of an intracranial hemorrhage, mass lesion or apparent acute infarct. Diffuse atrophy is present. Slight lead diminished attenuation the deep white matter indicates small vessel ischemic changes. Mild mucosal thickening is seen in some of the ethmoid and sphenoid sinuses. There is no evidence of acute sinusitis. The overall appearance of the brain has not changed significantly. Electronically authenticated by: KIMBERLI OCONNELL Date: 09/03/2024 12:34
--- NOTE | 2024-09-03 11:31 | ED.GENADUL1 ---
HPI HPI - General Adult General Chief complaint: Syncope Time Seen by Provider: 09/03/24 11:40 History of Present Illness HPI narrative: 74-year-old male presents to the emergency department for an apparent syncopal episode. He has a history of dementia and is not able to tell us what happened. He states that he just woke up on the floor. He has been having some headaches recently and does not have chest pain. He reportedly has a history of atrial fibrillation. This happened just before coming into the emergency department and he was transported here by paramedics. Initially no family members are present. Related Data Home Medications ?Medication ?Instructions ?Recorded ?Confirmed aspirin 81 mg chewable tablet 1 tab PO DAILY 04/04/23 09/03/24 carbidopa 25 mg-levodopa 100 mg 1 tab PO TID 04/04/23 09/03/24 tablet potassium chloride 20 mEq 20 meq PO BID 04/04/23 09/03/24 tablet,extended release(part/cryst) (Klor-Con M) donepezil 10 mg tablet 10 mg PO DAILY 05/25/23 09/03/24 albuterol sulfate 90 mcg/actuation 2 inh inhalation Q4H PRN shortness 10/01/23 09/03/24 aerosol inhaler of breath or wheezing carbidopa ER 25 mg-levodopa 100 mg 1 tab PO TID 10/01/23 09/03/24 tablet,extended release amlodipine 10 mg tablet 10 mg PO DAILY 09/03/24 09/03/24 baclofen 10 mg tablet 10 mg PO DAILY PRN muscle spasm 09/03/24 09/03/24 hydralazine 10 mg tablet 10 mg PO DAILY 09/03/24 09/03/24 memantine 5 mg tablet 5 mg PO BID 09/03/24 09/03/24 metoprolol tartrate 25 mg tablet 25 mg PO BID 09/03/24 09/03/24 Allergies Allergy/AdvReac Type Severity Reaction Status Date / Time Penicillins Allergy Unknown Unknown Verified 09/03/24 12:04 Opioid HPI Opioid Management Most Recent Opioid Data: No Data to Display Review of Systems ROS Narrative Not obtainable, [facility] History (Updated 09/03/24 @ 12:48 by Jaskaran Hernandez MD) History of brachytherapy ?Z92.3 - Personal history of irradiation (ICD-10) Tardive dyskinesia ?G24.01 - Drug induced subacute dyskinesia (ICD-10) Right foot drop ?M21.371 - Foot drop, right foot (ICD-10) Rectal bleeding ?K62.5 - Hemorrhage of anus and rectum (ICD-10) Metabolic encephalopathy ?G93.41 - Metabolic encephalopathy (ICD-10) Lumbar disc disease ?M51.9 - Unspecified thoracic, thoracolumbar and lumbosacral intervertebral disc disorder (ICD-10) Hyperuricemia ?E79.0 - Hyperuricemia without signs of inflammatory arthritis and tophaceous disease (ICD-10) Hyperlipemia ?E78.5 - Hyperlipidemia, unspecified (ICD-10) Hypertension ?I10 - Essential (primary) hypertension (ICD-10) Gout ?M10.9 - Gout, unspecified (ICD-10) GERD (gastroesophageal reflux disease) ?K21.9 - Gastro-esophageal reflux disease without esophagitis (ICD-10) Elevated PSA ?R97.20 - Elevated prostate specific antigen [PSA] (ICD-10) Dementia ?F03.90 - Unspecified dementia, unspecified severity, without behavioral disturbance, psychotic disturbance, mood disturbance, and anxiety (ICD-10) COPD (chronic obstructive pulmonary disease) ?J44.9 - Chronic obstructive pulmonary disease, unspecified (ICD-10) Cervical spondylosis ?M47.812 - Spondylosis without myelopathy or radiculopathy, cervical region (ICD-10) Adenocarcinoma of prostate ?C61 - Malignant neoplasm of prostate (ICD-10) Bradycardia ?R00.1 - Bradycardia, unspecified (ICD-10) Hypokalemia ?E87.6 - Hypokalemia (ICD-10) Parkinsons disease ?G20 - Parkinson's disease (ICD-10) Acute diverticulitis ?K57.92 - Diverticulitis of intestine, part unspecified, without perforation or abscess without bleeding (ICD-10) Surgical History (Updated 05/25/23 @ 14:31 by Cherie Cardoso) H/O vasectomy ?Z98.52 - Vasectomy status (ICD-10) H/O bone graft ?Z98.890 - Other specified postprocedural states (ICD-10) H/O colonoscopy ?Z98.890 - Other specified postprocedural states (ICD-10) H/O lumbar discectomy ?Z98.890 - Other specified postprocedural states (ICD-10) Status post excisional biopsy ?Z98.890 - Other specified postprocedural states (ICD-10) H/O skin graft ?Z94.5 - Skin transplant status (ICD-10) Hx of cholecystectomy ?Z90.49 - Acquired absence of other specified parts of digestive tract (ICD-10) Family History (Updated 05/25/23 @ 14:33 by Cherie Cardoso) Mother Family history of stroke Dementia Cardiac arrest Father Cardiac arrest Social History Within the past year, how often did you have a drink containing alcohol: never Score interpretation: A score less than 4 is consistent with normal alcohol consumption. Smoking status: Former smoker Non-prescribed substance use: denies use Previous occupational history: retired Highest level of school completed/degree received: Associate degree: occupational, technical, vocational program Exam Narrative Exam Narrative: Nurses note and vital signs reviewed and patient is not hypoxic. General: The patient appears well and in no apparent distress. Patient is resting comfortably on cart. Skin: Warm, dry, no pallor noted. There is no rash noted. Head: Normocephalic, atraumatic Eye: Normal conjunctiva, no drainage Ears, Nose, Mouth, and Throat: oral mucosa is moist. Nares patent. Cardiovascular: Irregularly irregular and bradycardic Respiratory: Patient is in no distress, no accessory muscle use, lungs are clear to auscultation, no wheezing, rales or rhonchi Back: non-tender GI: Soft and nontender Musculoskeletal: The patient has no evidence of calf tenderness, no pitting edema, symmetrical pulses noted bilaterally Neurological: He is awake and alert and conversive. He knows his name and that he is in a hospital but does not know which 1. Psychiatric: Cooperative Constitutional Vital Signs, click to edit/add: Last Vital Signs Temp 97.4 F L 09/03/24 11:30 Pulse 60 09/03/24 12:30 Resp 23 H 09/03/24 12:30 BP 130/73 09/03/24 12:30 Pulse Ox 96 09/03/24 12:30 O2 Del Method Room Air 09/03/24 11:30 Course Vital Signs Vital signs: Vital Signs Temperature 97.4 F L 09/03/24 11:30 Pulse Rate 74 09/03/24 11:30 Respiratory Rate 20 09/03/24 11:30 Blood Pressure 126/91 09/03/24 11:30 Pulse Oximetry 97 09/03/24 11:30 Oxygen Delivery Method Room Air 09/03/24 11:30 Temperature 97.4 F L 09/03/24 11:30 Pulse Rate 60 09/03/24 12:30 Respiratory Rate 23 H 09/03/24 12:30 Blood Pressure 130/73 09/03/24 12:30 Pulse Oximetry 96 09/03/24 12:30 Oxygen Delivery Method Room Air 09/03/24 11:30 Medical Decision Making MDM Narrative Medical decision making narrative: The patient appears to have new onset atrial fibrillation and has had a 1.6-second immediately followed by 1.8-second pause. He is on metoprolol. I have spoken to Dr. Christie, cardiology, and the patient will be transferred to [facility] for evaluation for possible pacemaker. Findings are discussed with the patient and his family. They are agreeable and he is stable for transfer. Differential Diagnosis Differential Diagnosis: Syncope, dysrhythmia Lab Data Lab results reviewed: Yes I reviewed the patient's lab results Labs: Lab Results 09/03/24 09/03/24 Range/Units 11:36 11:40 WBC 8.3 (4.0-11.0) 10^3/uL RBC 5.49 (4.70-6.10) 10^6/uL Hgb 15.2 (14.0-18.0) g/dL Hct 47.1 (42.0-54.0) % MCV 85.8 (80.0-94.0) fL MCH 27.7 (25.9-34.0) pg MCHC 32.3 (29.9-35.2) g/dL RDW 14.7 (11.0-15.0) % Plt Count 290 (150-450) 10^3/uL MPV 10.3 (9.5-13.5) fL Neut % (Auto) 69.3 (43.0-75.0) % Lymph % (Auto) 20.8 (20.5-60.0) % Canadian % (Auto) 8.6 (1.7-12.0) % Eos % (Auto) 0.6 L (0.9-7.0) % Baso % (Auto) 0.5 (0.2-2.0) % Neut # (Auto) 5.8 (1.4-6.5) 10^3/uL Lymph # (Auto) 1.7 (1.2-3.8) 10^3/uL Canadian # (Auto) 0.7 (0.3-0.8) 10^3/uL Eos # (Auto) 0.1 (0.0-0.7) 10^3/uL Baso # (Auto) 0.0 (0.0-0.1) 10^3/uL Abs Immat Gran (auto) 0.02 (0.00-0.03) 10^3/uL Imm/Tot Granulo (auto) 0.2 (0.0-0.5) % Sodium 144 (136-145) mmol/L Potassium 4.1 (3.5-5.1) mmol/L Chloride 109 H (98-107) mmol/L Carbon Dioxide 23.0 (21.0-32.0) mmol/L Anion Gap 16.1 BUN 14.0 (7.0-18.0) mg/dL Creatinine 1.97 H (0.70-1.30) mg/dL Est GFR ( Amer) 41 L (>=60 mL/min/1.73m^2) Est GFR (Non-Af Amer) 33 L (>=60 mL/min/1.73m^2) BUN/Creatinine Ratio 7.1 Glucose 134 H (74-106) mg/dL Calcium 8.9 (8.5-10.1) mg/dL Troponin I High Sens <4.0 L (4.0-76.1) pg/mL POC Glucose 126 H (74-106) mg/dL Imaging Data CT scan - head: Radiologist's impression: ITS Impressions Head CT 09/03/24 11:31 IMPRESSION: There is no evidence of an intracranial hemorrhage, mass lesion or apparent acute infarct. Diffuse atrophy is present. Slight lead diminished attenuation the deep white matter indicates small vessel ischemic changes. Mild mucosal thickening is seen in some of the ethmoid and sphenoid sinuses. There is no evidence of acute sinusitis. The overall appearance of the brain has not changed significantly. Electronically authenticated by: KIMBERLI OCONNELL Date: 09/03/2024 12:34 ECG Data Attestation: I personally reviewed and interpreted this ECG as follows: (EKG on my interpretation shows atrial fibrillation with an overall rate of 51 but there is a 1.6-second segment followed by a 1.8-second segment with no ventricular contraction) Discharge Plan Discharge Chief Complaint: Syncope Clinical Impression: Syncope Patient Disposition: [facility] Time of Disposition Decision: 12:48 Discharge Location: [facility] Condition: Fair Mode of Transportation: Private Vehicle
[2024-09-03 11:36] LABS: Glucometer 126 mg/dL (74-106)
[2024-09-03 11:53] LABS: Basophils Percent Auto 0.5 % (0.2-2.0); Eosinophils Absolute Auto 0.1 10^3/uL (0.0-0.7); Eosinophils Percent Auto 0.6 % (0.9-7.0); Hematocrit 47.1 % (42.0-54.0); Hemoglobin 15.2 g/dL (14.0-18.0); Immature Granulocytes Abs Auto 0.02 10^3/uL (0.00-0.03); Immature Granulocytes Pct Auto 0.2 % (0.0-0.5); Lymphocytes Absolute Auto 1.7 10^3/uL (1.2-3.8); Lymphocytes Percent Auto 20.8 % (20.5-60.0); Mean Corpuscular HGB Conc 32.3 g/dL (29.9-35.2); Mean Corpuscular Hemoglobin 27.7 pg (25.9-34.0); Mean Corpuscular Volume 85.8 fL (80.0-94.0); Mean Platelet Volume 10.3 fL (9.5-13.5); Monocytes Absolute Auto 0.7 10^3/uL (0.3-0.8); Monocytes Percent Auto 8.6 % (1.7-12.0); Neutrophils Absolute Auto 5.8 10^3/uL (1.4-6.5); Neutrophils Percent Auto 69.3 % (43.0-75.0); Platelet Count 290 10^3/uL (150-450); Red Blood Count 5.49 10^6/uL (4.70-6.10); Red Cell Distribution Width 14.7 % (11.0-15.0); White Blood Count 8.3 10^3/uL (4.0-11.0)
[2024-09-03 12:12] LABS: Anion Gap 16.1; BUN Creatinine Ratio 7.1; Calcium 8.9 mg/dL (8.5-10.1); Chloride 109 mmol/L (98-107); Estimated GFR (African America 41 (>=60 mL/min/1.73m^2); Estimated GFR (Non-African Ame 33 (>=60 mL/min/1.73m^2); Glucose 134 mg/dL (74-106); Potassium 4.1 mmol/L (3.5-5.1); Sodium 144 mmol/L (136-145)
[2024-09-03 12:17] LABS: Troponin I High Sensitivity <4.0 pg/mL (4.0-76.1)
--- NOTE | 2024-09-03 17:15 | PC.NURSE ---
[facility] arrives at this time for transport.
== END 2024-09-03 17:45 | disposition short-term general hospital (02) ==
PROVIDERS: Emergency Provider Emergency Medicine; PCP Family Medicine
DX: R55 Syncope and collapse (principal); I48.91 Unspecified atrial fibrillation; F03.90 Unspecified dementia, unspecified severity, without behavioral disturbance, psychotic disturbance, mood disturbance, and anxiety; Z98.52 Vasectomy status; Z90.49 Acquired absence of other specified parts of digestive tract; Z87.891 Personal history of nicotine dependence
CPT/HCPCS: 36415; 70450; 71045; 80048; 84484; 85025; 93005; 99285

== ENCOUNTER 2024-09-08 11:42 | Outpatient (OUT) | payer MEDICARE, SELFPAY ==
--- OUTSIDE RECORDS SUMMARY | 2024-09-08 11:56 | XMS_ITS | CCD ---
Author Organization [facility] Care Team Providers Care Field Support Specialist Name Role Phone DR FABIAN KENNEDY V [...] HOY ., DR PAVON Primary Care Unavailable CHIOY ., DR PAVON Primary Care Unavailable MARCIA, DR FABIAN Guadarrama Consulting Unavailable KRYSTIAN, MANOLO Admitting Unavailable KRYSTIAN, MANOLO Attending Unavailable KRYSTIAN, MANOLO Consulting Unavailable KRYSTIAN, MANOLO Admitting Unavailable KRYSTIAN, MANOLO Attending Unavailable HOY ., DR PAVON Primary Care Unavailable JOSEPH, DR VIC Dennison Consulting Unavailable KRYSTIAN, MANOLO Consulting Unavailable KRYSTIAN, MANOLO Attending Unavailable HOY ., DR PAVNO Primary Care Unavailable WEST, DR FABIAN Guadarrama Consulting Unavailable MANOLO BOLAND Admitting Unavailable MANOLO BOLAND Consulting Unavailable ALICJA ., DR PAVON Primary Care Unavailable WEST, DR FABIAN Guadarrama Consulting Unavailable KIMBERLI RAIN Admitting Unavailable HIGHLANDER, KIMBERLI Narvaez Attending Unavailable KIMBERLI RAIN Consulting Unavailable ALICJA ., DR PAVON Primary Care Unavailable HOConsuelo ., DR PAVON Admitting Unavailable HOConsuelo ., DR PAVON Consulting Unavailable HOY ., DR PAVON Attending Unavailable AHDOOT, CHINMAY Consulting Unavailable JAMES, VINAYA Consulting Unavailable YEH, MICHELINE Consulting Unavailable FALVO, MAYUR Consulting Unavailable ROCK, BRIEN Consulting Unavailable READER, LIBRADO Consulting Unavailable SISTER, OPAL Consulting Unavailable YOBANY, SABCASSANDRAA REGALADO Consulting Unavailable QUEENIE ., DEBBIE Consulting Unavailable JUNE ., CARIDAD Consulting Unavailable HOConsuelo ., DR PAVON Primary Care Unavailable HOConsuelo ., DR PAVON Admitting Unavailable HOConsuelo ., DR PAVON Consulting Unavailable ALICJA ., DR PAVON Attending Unavailable WEST, DR FABIAN Guadarrama Consulting Unavailable RENA ., GIOVANNI Consulting Unavailable MARKER, ASH Consulting Unavailable JOHNSON, LOURDES Consulting Unavailable KLIPPFABIAN CRAVEN Consulting Unavailable ANGELA POWERS Consulting Unavailable MELIZA, [...] Consulting Unavailable RHYS PARRA Consulting Unavailable Librado Helm Primary Care Physician Baljit DOSHI Attending Unavailable Baljit DOSHI Attending Unavailable Librado Helm MD Primary Care Provider [phone] MEL JUAREZ Attending Unavailable LIBRADO HELM Referring Unavailable LIBRADO HELM Primary Care Unavailable LIBRADO HELM Referring Unavailable LIBRADO HELM Primary Care Unavailable JOE JANG Attending Unavailable MEL JUAREZ Attending Unavailable LIBRADO EHLM Referring Unavailable LIBRADO HELM Primary Care Unavailable Librado Helm MD Primary Care Provider [phone] REJI, SPENCER Referring Unavailable KIKO, MISSAEL Referring Unavailable KIKO, MISSAEL Referring Unavailable REJI, SPENCER Referring Unavailable KIKO, MISSAEL Referring Unavailable ZEV VILLEGAS Attending Unavailable KIKO, MISSAEL Admitting Unavailable KIKO, MISSAEL Attending Unavailable ROBIN CAMARENA Attending Unavailable KIKO, MISSAEL Referring Unavailable REJI, SPENCER Referring Unavailable REJI, SPENCER Referring Unavailable REJI, SPENCER Referring Unavailable REJI, SPENCER Referring Unavailable KIKO, MISSAEL Referring Unavailable REJI, SPENCER Referring Unavailable LAWRENCE, RAMESH CHUL Referring Unavailable KIKO, MISSAEL Attending Unavailable LAWRENCE, RAMESH CHUL Referring Unavailable KATKIRTIODELL Referring Unavailable LAWRENCE, RAMESH CHUL Admitting Unavailable LAWRENCE, RAMESH CHUL Attending Unavailable ROSA, MAXX Referring Unavailable RAY, NORBERTO Referring Unavailable Allergies Allergy Classification Reported Allergen(s) Allergy Type Date of Onset Reaction(s) Facility (3 sources) Penicillins; Translations: [PENICILLINS] Drug allergy (disorder) 4 [facility] (2 sources) Penicillin; Translations: [penicillin] Drug Allergy Weal (disorder) [facility] [place] (3 sources) Penicillins Propensity to adverse reactions to drug 0 [facility] Medications Current Medications Medication Drug Class(es) Dates Sig (Normalized) Sig (Original) amLODIPine 10 mg oral tablet (3 sources) Dihydropyridine Calcium Channel Tahmina Start: 07-21-2023 End: 06-27-2025 amLODIPine (NORVASC) 10 mg tablet Take 1 tablet (10 mg total) by mouth. 06/27/2024 06/27/2025 Active aspirin 81 mg chewable tablet (4 sources) Platelet Aggregation Inhibitor, Nonsteroidal Anti-inflammatory Drug Start: 08-19-2023 End: 02-15-2024 aspirin 81 mg chewable tablet Chew 1 tablet (81 mg total) and swallow in the morning for 180 days. 90 tablet 1 08/19/2023 02/15/2024 Active Start: 04-22-2023 take 1 tablet by elba th in the morning aspirin 81 mg Take 1 tablet (81 mg total) by mouth in the morning. 04/22/2023 Active baclofen 10 mg oral tablet (3 sources) gamma-Aminobutyric Acid-ergic Agonist Start: 02-12-2024 take 1 tablet by mouth once daily as needed for muscle spasms baclofen (LIORESAL) 10 mg tablet Indications: Spondylosis of cervical spine , Chronic bilateral low back pain, unspecified whether sciatica present , Spondylosis of lumbar region without myelopathy or radiculopathy Take 1 tablet (10 mg total) by mouth nightly as needed for muscle spasms. 30 tablet 3 02/12/2024 Active Start: 09-18-2023 take 1 tablet by elba th once daily as needed for muscle spasms baclofen (LIORESAL) 10 mg tablet Indications: Chronic bilateral low back pain, unspecified whether sciatica present Take 1 tablet (10 mg total) by mouth nightly as needed for muscle spasms. 30 tablet 3 09/18/2023 Active carbidopa 25 mg / levodopa 100 mg oral tablet (9 sources) Aromatic Amino Acid Decarboxylation Inhibitor, Aromatic Amino Acid Start: 05-17-2024 End: 08-05-2024 take 1 tablet by mouth three times daily before mealtime carbidopa-levodopa (SINEMET CR) 25-100 mg per CR tablet Indications: Parkinsonism, unspecified Parkinsonism type (CMS-HCC) Take 1 tablet by mouth 3 (three) times a day. Please take at 0600/1200/1800, 30-45 mins before meals 270 tablet 08/05/2024 Active Start: 02-12-2024 End: 08-05-2024 take 1 tablet by mouth three times daily before mealtime carbidopa-levodopa (SINEMET) 25-100 mg per tablet Indications: Parkinsonism, unspecified Parkinsonism type (CMS-HCC) Take 1 tablet by mouth 3 (three) times a day. Please take at 0600/1200/1800 30-45 mins before meals 270 tablet 1 08/05/2024 Active Start: 08-26-2023 take 1 tablet by elba th three times daily before mealtime carbidopa-levodopa (SINEMET CR) 25-100 mg per CR [...] Ordered donepezil hydrochloride 10 mg oral tablet (5 sources) Start: 02-12-2024 End: 08-05-2024 take 1 tablet by mouth in the morning donepeziL (ARICEPT) 10 mg tablet Indications: Parkinsonism, unspecified Parkinsonism type (CMS-HCC) Take 1 tablet (10 mg total) by mouth in the morning. 30 tablet 5 08/05/2024 Active Start: 04-22-2023 take 1 tablet by elba th in the morning donepeziL (ARICEPT) 10 mg tablet Take 1 tablet (10 mg total) by mouth in the morning. 0 04/22/2023 Active hydrALAZINE hydrochloride 10 mg oral tablet (2 sources) Arteriolar Vasodilator Start: 08-13-2023 End: 08-12-2024 hydrALAZINE (APRESOLINE) 10 mg tablet Take 1 tablet (10 mg total) by mouth. 08/13/2023 08/12/2024 Active memantine hydrochloride 5 mg oral tablet (3 sources) J-bqmwtl-E-asparta te Receptor Antagonist Start: 08-05-2024 End: 08-28-2024 memantine (NAMENDA) 5 mg tablet Indications: Mild dementia with agitation, unspecified dementia type (CMS-HCC) TAKE 1 TABLET (5 MG) DAILY FOR 1 WEEK, THEN INCREASE TO 1 TABLET (5 MG) TWICE DAILY 180 tablet 1 08/28/2024 Active metoprolol tartrate 25 mg oral tablet (3 sources) beta-Adrenergic Tahmina take 1 tablet by mouth in the morning, then take 1 tablet by mouth at bedtime metoprolol tartrate (LOPRESSOR) 25 mg tablet Take 1 tablet (25 mg total) by mouth in the morning and 1 tablet (25 mg total) before bedtime. Active Completed/Discontinued Medications Medication Drug Class(es) Dates Sig (Normalized) Sig (Original) potassium chloride 20 meq extended release oral tablet (4 sources) Start: 04-22-2023 take 1 tablet by [...] total) in the evening. Take before meals. 03/05/2023 Active Problems Active Problems Problem Classification [...] with calculus] 05-30-2020 Episodic Cancer of prostate (5 sources) Adenocarcinoma of prostate; Translations: [Malignant tumor of prostate] Onset: 07-03-2020 05-28-2020 Chronic Cancer of prostate (1 source) Personal history of malignant neoplasm of prostate; Translations: [PERSONAL HX MALIG NEOPLASM PROSTATE] Onset: 02-10-2023 Episodic Cardiac dysrhythmias (2 sources) Unspecified atrial fibrillation; Translations: [Unspecified atrial fibrillation] Onset: 09-03-2024 Chronic Cardiac dysrhythmias (6 sources) Bradycardia, unspecified; Translations: [Bradycardia] Onset: 02-10-2023 04-22-2023 Episodic Chronic kidney disease (2 sources) Chronic kidney disease, stage 2 (mild); Translations: [Chronic kidney disease] Onset: 02-10-2023 04-22-2023 Chronic Chronic obstructive pulmonary disease and bronchiectasis (2 sources) Chronic obstructive pulmonary disease with (acute) exacerbation; Translations: [Chronic obstructive lung disease] Onset: 09-01-2022 04-22-2023 Chronic Chronic ulcer of skin (8 sources) Pressure ulcer of right heel, stage 1; Translations: [Chronic ulcer of foot] Onset: 12-17-2022 Chronic Deficiency and other anemia (1 source) Iron deficiency anemia, unspecified; Translations: [IRON DEFICIENCY ANEMIA UNSPECIFIED] Onset: 02-10-2023 Episodic Delirium, dementia, and amnestic and other cognitive disorders (13 sources) Dementia in other diseases classified elsewhere [...] disease] Onset: 09-01-2022 04-22-2023 Chronic Essential hypertension (6 sources) Essential (primary) hypertension; Translations: [Hypertensive disorder] [...] Chronic Hypertension with complications and secondary hypertension (1 source) Hypertensive chronic kidney disease with stage 1 through stage 4 chronic kidney disease, or unspecified chronic kidney disease; Translations: [HTN CKD W/STAGE 1-4 CKD/UNS CKD] Onset: 12-16-2022 Chronic Malaise and fatigue (2 sources) Weakness; Translations: [WEAKNESS] Onset: 11-17-2022 Episodic Nutritional deficiencies (1 source) Unspecified severe protein-calorie malnutrition; Translations: [UNS SEVERE PROTEIN-CALORIE MLNUTRIT] Onset: 09-01-2022 Chronic Osteoarthritis (1 source) Unspecified osteoarthritis, unspecified site; Translations: [UNSPECIFIED OSTEOARTHRITIS UNS SITE] Onset: 02-10-2023 Chronic Other aftercare (1 source) Other penitentiary (current) drug therapy; Translations: [OTH HALFWAY 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 THERAPY] Onset: 02-10-2023 Episodic Other aftercare (1 source) USP (current) use of aspirin; Translations: [INBOUND INGREDIENT LOGISTICS SPECIALIST CURRENT USE OF ASPIRIN] Onset: 02-10-2023 Episodic Other connective tissue disease (5 sources) Pain in right foot; Translations: [PAIN IN RIGHT FOOT] Onset: 12-16-2022 Episodic Other connective tissue disease (1 source) Muscle weakness (generalized); Translations: [MUSCLE WEAKNESS GENERALIZED] Onset: 12-16-2022 Episodic Other injuries and conditions due to external causes (1 source) History of falling; Translations: [HISTORY OF FALLING] Onset: 12-16-2022 Episodic Other nervous system disorders (1 source) Metabolic encephalopathy; Translations: [METABOLIC ENCEPHALOPATHY] Onset: 09-01-2022 Chronic Other nervous system disorders (1 source) Metabolic encephalopathy 04-22-2023 Chronic Other nervous system disorders (1 source) Other chronic pain; Translations: [Other chronic pain] Onset: 02-12-2024 Chronic Other nutritional; endocrine; and metabolic disorders (1 [...] Spondylosis; intervertebral disc disorders; other back problems (11 sources) Cervical disc disorder, unspecified, unspecified cervical region; Translations: [Cervical spondylosis] Onset: 10-08-2022 04-22-2023 Chronic Spondylosis; intervertebral disc disorders; other back problems (3 sources) Radiculopathy, cervical region; Translations: [Lumbar disc prolapse with radiculopathy] Onset: 12-16-2022 05-28-2020 Episodic Syncope (2 sources) Syncope and collapse; Translations: [Syncope and collapse] Onset: 09-03-2024 Episodic Unclassified (5 sources) Parkinsonism; Translations: [Parkinsonism, unspecified Parkinsonism type] [...] cyst of skin 10-02-2020 Unclassified (1 source) New Patient Onset: 08-05-2024 Unclassified (1 source) Parkinsonism, unspecified; Translations: [Parkinsonism, unspecified] Onset: 12-17-2022 Unclassified (1 source) Unspecified dementia, mild, with agitation; Translations: [Unspecified dementia, mild, with agitation] Onset: 12-17-2022 Unclassified (1 source) Low back pain, unspecified; Translations: [Low back pain, unspecified] Onset: 02-12-2024 Unclassified (1 source) Other pericardial effusion (noninflammatory); Translations: [Other pericardial effusion (noninflammatory)] Onset: 09-03-2024 Past or Other Problems Problem Classification Problem Date Documented Da te Episodic/Chronic Genitourinary symptoms and ill-defined conditions (5 sources) Retention of urine; Translations: [Retention of urine, unspecified] Onset: 07-03-2020 09-18-2023 Episodic Mood disorders (3 sources) Mood disorders Onset: 09-18-2023 09-18-2023 Nutritional deficiencies [...] Onset: 09-01-2022 Episodic Other connective tissue disease (3 sources) Other symptoms and signs involving the musculoskeletal system; Translations: [Other musculoskeletal symptoms referable to limbs] Onset: 11-18-2022 11-18-2022 Episodic Other gastrointestinal disorders (1 source) Heartburn; Translations: [HEARTBURN] Onset: 09-01-2022 Episodic Other hereditary and degenerative nervous system conditions (5 sources) Tardive dyskinesia; Translations: [Drug induced subacute dyskinesia] Onset: 12-17-2022 04-22-2023 Episodic Other hereditary and degenerative nervous system conditions (1 source) Drug induced subacute dyskinesia; Translations: [Drug induced subacute dyskinesia] Onset: 12-17-2022 Episodic Other inflammatory condition of skin (1 source) Erythematous condition, unspecified; Translations: [ERYTHEMATOUS CONDITION UNSPECIFIED] Onset: 09-01-2022 Episodic Other lower respiratory disease (1 source) Acute respiratory distress; Translations: [ACUTE RESPIRATORY DISTRESS] Onset: 09-01-2022 Episodic Other nervous system disorders (4 sources) Abnormal gait; Translations: [Unsteadiness on feet] Onset: 12-17-2022 09-18-2023 Episodic Other nervous system disorders (1 source) [...] SUBQ TISSUE UNS] Onset: 09-01-2022 Episodic Unclassified (3 sources) Onset: 09-27-2023 Resolved: 02-12-2024 09-27-2023 Unclassified (1 source) Other pericardial effusion (noninflammatory); Translations: [Other pericardial effusion (noninflammatory)] Onset: 09-03-2024 Results Test Name Value Interpretation Reference Range Facility 36on 09-06-2024 36 Attempted discharge follow up phone call. Spoke to pts daughter Mere that said he was not home presently. Left message with daughter. Normal [facility] Telephoneon 09-06-2024 Telephone [phone] Efraín Johnson 1950 M Date Provider Department Center 09/06/2024 VIVIAN DAMICO MS [facility] Family History Problem Relation Age of Onset Stroke Father Stroke Paternal Grandmother Stroke Paternal Grandfather Family Status - Relation Status Age at Father Paternal Grandmother Paternal Grandfather Normal [facility] 30on 09-05-2024 30 Problem: Pain - Adul t Goal: Verbalizes/displays adequate comfort level or baseline comfort level Outcome: Progressing Flowsheets (Taken 09/05/2024 0800) Verbalizes/displays adequate comfort level or baseline comfort level: Assess pain using appropriate pain scale Encourage patient to monitor pain and request assistance Administer analgesics based on type and severity of pain and evaluate response Implement non-pharmacological measures as appropriate and evaluate response Problem: Safety - Adult Goal: Free from fall injury Outcome: Progressing Flowsheets (Taken 09/05/2024799) Free from fall injury: Assess patient frequently for physical needs Identify cognitive and physical deficits and behaviors that affect risk of falls [place] fall precautions as indicated by assessment Educate patient/family on patient safety, including physical limitations Instruct patient to call for assistance with activity based on assessment Modify environment to reduce risk of injury Consider OT/PT consult to assist with strengthening/mobilit y Problem: Discharge Planning Goal: Discharge to home or other facility with appropriate resources Outcome: Progressing Flowsheets (Taken 09/05/2024799) Discharge to home or other facility with appropriate resources: Identify barriers to discharge with patient and caregiver Arrange for needed discharge resources and transportation as appropriate Identify discharge learning needs (meds, wound care, etc) Problem: Chronic Conditions and Co-morbidities Goal: Patient's chronic conditions and co-morbidity symptoms are monitored and maintained or improved Outcome: Progressing Flowsheets (Taken 09/05/2024799) Care Plan - Patient's Chronic Conditions and Co-Morbidity Symptoms are Monitored and Maintained or Improved: Monitor and assess patient's chronic conditions and comorbid symptoms for stability, deterioration, or improvement Collaborate with multidisciplinary team to address chronic and comorbid conditions and prevent exacerbation or deterioration Update acute care plan with appropriate goals if chronic or comorbid symptoms are exacerbated and prevent overall improvement and discharge Problem: Neurosensory - Adult Goal: Achieves stable or improved neurological status Outcome: Progressing Flowsheets (Taken 09/05/2024799) Achieves stable or improved neurological status: Assess for and report changes in neurological status Initiate measures to prevent increased intracranial pressure Maintain blood pressure and fluid volume within ordered parameters to optimize cerebral perfusion and minimize risk of hemorrhage Monitor temperature, glucose, and sodium. Initiate appropriate interventions as ordered Problem: Cardiovascular - Adult Goal: Maintains optimal cardiac output and hemodynamic stability Outcome: Progressing Flowsheets (Taken 09/05/2024799) Maintains optimal cardiac output and hemodynamic stability: Monitor blood pressure and heart rate Monitor urine output and notify Licensed Independent Practitioner for values outside of normal range Assess for signs of decreased cardiac output Goal: Absence of cardiac dysrhythmias or at baseline Outcome: Progressing Problem: Skin/Tissue Integrity - Adult Goal: Skin integrity remains intact Outcome: Progressing Flowsheets (Taken 09/05/2024799) Skin integrity remains intact: Monitor for areas of redness and/or skin breakdown Goal: Oral mucous membranes remain intact Outcome: Progressing Problem: Musculoskeletal - Adult Goal: Return mobility to safest level of function Outcome: Progressing Flowsheets (Taken 09/05/2024799) Return mobility to safest level of function: Assess patient stability and activity tolerance for standing, transferring and ambulating with or without assistive devices Assist with transfers and ambulation using safe patient handling equipment as needed Ensure adequate protection for wounds/incisions during mobilization Obtain physical therapy/occupational therapy consults as needed Instruct patient/family in ordered activity level Goal: Return ADL status to a safe level of function Outcome: Progressing Problem: Gastrointestinal - Adult Goal: Minimal or absence of nausea and vomiting Outcome: Progressing Goal: Maintains or returns to baseline bowel function Outcome: Progressing Flowsheets (Taken 09/05/2024799) Maintains or returns to baseline bowel function: Assess bowel function Encourage oral fluids to ensure adequate hydration Encourage mobilization and activity Goal: Maintains adequate nutritional intake Outcome: Progressing Problem: Genitourinary - Adult Goal: Absence of urinary retention Outcome: Progressing Flowsheets (Taken 09/05/2024799) Absence of urinary retention: Assess patient???s ability to void and empty bladder Monitor intake/output and perform bladder scan as needed Problem: Infection - Adult Goal: Absence of (more content not included)... Normal [facility] 30 The patient is Moderately Stable - Low risk of patient condition declining or worsening The patient's goals for the shift include Sleep The clinical goals for the shift include VSS, Safety Problem: Pain - Adult Goal: Verbalizes/displays adequate comfort level or baseline comfort level Outcome: Progressing Flowsheets (Taken 09/04/20241956) Verbalizes/displays adequate comfort level or baseline comfort level: Encourage patient to monitor pain and request assistance Assess pain using appropriate pain scale Implement non-pharmacological measures as appropriate and evaluate response Problem: Safety - Adult Goal: Free from fall injury Outcome: Progressing Flowsheets (Taken 09/04/20241956) Free from fall injury: Assess patient frequently for physical needs Identify cognitive and physical deficits and behaviors that affect risk of falls [place] fall precautions as indicated by assessment Educate patient/family on patient safety, including physical limitations Instruct patient to call for assistance with activity based on assessment Modify environment to reduce risk of injury Normal [facility] BASIC METABOLIC PANELon 12-0 Anion gap [Moles/Vol] 12 mmol/L Normal 7-20 [facility] Comment on above: Performed By: #### L AB15 #### [facility] ([facility]) [address] [place] [address] Calcium [Mass/Vol] 8.8 mg/dL Normal 8.6-10.3 [facility] Comment on above: Performed By: #### L AB15 #### [facility] ([facility]) [address] [place] [address] Chloride [Moles/Vol] 107 mmol/L Normal 98-107 [facility] Comment on above: Performed By: #### L AB15 #### [facility] ([facility]) [address] [place] [address] CO2 [Moles/Vol] 20 mmol/L Low 21-31 [facility] Comment on above: Performed By: #### L AB15 #### [facility] ([facility]) [address] [place] [address] Creatinine [Mass/Vol] 1.38 mg/dL High 0.70-1.30 [facility] Comment on above: Performed By: #### L AB15 #### [facility] ([facility]) [address] [place] [address] GLOMERULAR FILTRATION RATE ML/MIN/1.73 SQ M.PREDICTED 54.0 mL/min/1.73m*2 Low >60.0 [facility] Comment on above: Result Comment: [facility]???s estimated glomerular filtration rate (eGFR) will no longer include consideration of race in its calculation. The National Kid[employer] Foundation???s eGFR Task Force developed new recommendations for the estimation of the glomerular filtration rate in the [place] They recommend immediate implementation of the new equation refit without the race variable in all laboratories because the calculation does not include race. In addition to not including race in the calculation and reporting, it included diversity in its development, and has acceptable performance characteristics and potential consequences that do not disproportionately affect any one group of individuals. Performed By: #### L AB15 #### [facility] ([facility]) [address] [place] [address] Glucose [Mass/Vol] 89 mg/dL Normal 70-100 [facility] Comment on above: Performed By: #### L AB15 #### [facility] ([facility]) [address] [place] [address] Potassium [Moles/Vol] 3.6 mmol/L Normal 3.5-5.1 [facility] Comment on above: Performed By: #### L AB15 #### [facility] ([facility]) [address] [place] [address] Sodium [Moles/Vol] 135 mmol/L Low 136-145 [facility] Comment on above: Performed By: #### L AB15 #### [facility] ([facility] [place]) [address] [place] [address] Urea nitrogen [Mass/Vol] 18 mg/dL Normal 7-25 [facility] Comment on above: Performed By: #### L [id number] #### [facility] ([facility]) [address] [place] [address] UREA NITROGEN/CREATININE (MASS RATIO) IN SER/PLAS 13.0 Normal [facility] Comment on above: Performed By: #### L [id number] #### [facility] ([facility]) [address] [place] [address] CBCon 09-05-2024 Erythrocyte distribution width (RBC) [Ratio] 14.9 % Normal 11.5-15.0 [facility] Comment on above: Performed By: #### L [id number] ####[facility] ([facility])[address] [place] [address] ERYTHROCYTE MEAN CORPUSCULAR HEMOGLOBIN CONCENTRATION (G/DL) BY AUTOMATED 33.2 g/dL Normal 32.0-35.0 [facility] Comment on above: Performed By: #### L [id number] ####[facility] ([facility])[address] [place] [address] Hematocrit (Bld) [Volume fraction] 45.2 % Normal 39.0-55.0 [facility] Comment on above: Performed By: #### L [id number] ####[facility] ([facility])[address] [place] [address] Hemoglobin (Bld) [Mass/Vol] 15.0 g/dL Normal 13.0-17.0 [facility] Comment on above: Performed By: #### L [id number] ####[facility] ([facility])[address] [place] [address] MCH (RBC) [Entitic mass] 27.3 pg Normal 27.0-33.0 [facility] Comment on above: Performed By: #### L [id number] ####[facility] ([facility])[address] [place] [address] MCV (RBC) [Entitic vol] 82.2 fL Normal 82.0-98.0 [facility] Comment on above: Performed By: #### L [id number] ####[facility] ([facility])[address] [place] [address] PLATELETS (10*3/UL) IN BLOOD AUTOMATED COUNT 267 10*3/uL Normal 150-400 [facility] Comment on above: Performed By: #### L [id number] ####[facility] ([facility])[address] [place] [address] RBC (Bld) [#/Vol] 5.50 10*6/uL Normal 4.20-5.70 [facility] Comment on above: Performed By: #### L [id number] ####[facility] ([facility])[address] [place] [address] WBC (Bld) [#/Vol] 7.60 10*3/uL Normal 4.00-10.60 [facility] Comment on above: Performed By: #### L [id number] ####[facility] ([facility])[address] [place] [address] CT HEAD WO IV CONTRASTon CT HEAD WO IV CONTRAST CT HEAD WITHOUT CONTRAST HISTORY: Fall, syncope COMPARISON: None. TECHNIQUE: Routine noncontrast CT head. All CT scans at this facility use dose modulation, iterative reconstruction, and/or weight based dosing when appropriate to reduce radiation dose to as low as reasonably achievable. FINDINGS: There is no acute intracranial hemorrhage, mass, mass-effect, or shift of midline structures. There are no abnormal extra-axial fluid collections. Normal goldsmith matter-white matter differentiation. The brain volume and ventricular size are appropriate for the patient's age and there is no evidence of ventricular outflow obstruction. The basal cisterns are patent. No depressed calvarial fractures. The visualized paranasal sinuses and temporal bone structures are clear. IMPRESSION: No acute intracranial abnormality. Electronically signed: Rafi Macias MD. Not Vldtd Invalid Interpretation Code [facility] 30on 09-04-2024 30 The patient is Moderately Stable - Low risk of patient condition declining or worsening The patient's goals for the shift include sleep The clinical goals for the shift include stable vs Problem: Pain - Adult Goal: Verbalizes/displays adequate comfort level or baseline comfort level Outcome: Progressing Flowsheets (Taken 09/04/2024899) Verbalizes/displays adequate comfort level or baseline comfort level: Encourage patient to monitor pain and request assistance Administer analgesics based on type and severity of pain and evaluate response Assess pain using appropriate pain scale Implement non-pharmacological measures as appropriate and evaluate response Consider cultural and social influences on pain and pain management Notify Licensed Independent Practitioner if interventions unsuccessful or patient reports new pain Problem: Safety - Adult Goal: Free from fall injury Outcome: Progressing Flowsheets (Taken 09/04/2024899) Free from fall injury: Assess patient frequently for physical needs Identify cognitive and physical deficits and behaviors that affect risk of falls [place]ana fall precautions as indicated by assessment Instruct patient to call for assistance with activity based on assessment Educate patient/family on patient safety, including physical limitations Modify environment to reduce risk of injury Consider OT/PT consult to assist with strengthening/mobilit y Problem: Discharge Planning Goal: Discharge to home or other facility with appropriate resources Outcome: Progressing Flowsheets (Taken 09/04/2024899) Discharge to home or other facility with appropriate resources: Identify barriers to discharge with patient and caregiver Arrange for needed discharge resources and transportation as appropriate Identify discharge learning needs (meds, wound care, etc) Arrange for interpreters to assist at discharge as needed Refer to discharge planning if patient needs post-hospital services based on physician order or complex needs related to functional status, cognitive ability or social support system Problem: Chronic Conditions and Co-morbidities Goal: Patient's chronic conditions and co-morbidity symptoms are monitored and maintained or improved Outcome: Progressing Flowsheets (Taken 09/04/2024 0900) Care Plan - Patient's Chronic Conditions and Co-Morbidity Symptoms are Monitored and Maintained or Improved: Monitor and assess patient's chronic conditions and comorbid symptoms for stability, deterioration, or improvement Collaborate with multidisciplinary team to address chronic and comorbid conditions and prevent exacerbation or deterioration Update acute care plan with appropriate goals if chronic or comorbid symptoms are exacerbated and prevent overall improvement and discharge Normal [facility] 30 The patient is Moderately Stable - Low risk of patient condition declining or worsening The patient's goals for the shift include The clinical goals for the shift include vss Normal [facility] 30 The patient is Moderately Stable - Low risk of patient condition declining or worsening The patient's goals for the shift include COMFORT The clinical goals for the shift include vss Normal [facility] CBC WITH AUTO DIFFERENTIALon 09-04-2024 Basophils (Bld) [#/Vol] 0.04 10*3/uL Normal 0.00-0.20 [facility] Comment on above: Performed By: #### L [id number] #### [facility] ([facility]) [address] [place] [address] Basophils/100 WBC (Bld) 0.4 % Normal 0.0-1.0 [facility] Comment on above: Performed By: #### L [id number] #### [facility] ([facility]) [address] [place] [address] Eosinophils (Bld) [#/Vol] 0.01 10*3/uL Normal 0.00-0.50 [facility] Comment on above: Performed By: #### L [id number] #### [facility] ([facility]) [address] [place] [address] Eosinophils/100 WBC (Bld) 0.1 % Normal 0.0-6.0 [facility] Comment on above: Performed By: #### L [id number] #### [facility] ([facility]) [address] [place] [address] Erythrocyte distribution width (RBC) [Ratio] 14.9 % Normal 11.5-15.0 [facility] Comment on above: Performed By: #### L [id number] #### [facility] ([facility]) [address] [place] [address] ERYTHROCYTE MEAN CORPUSCULAR HEMOGLOBIN CONCENTRATION (G/DL) BY AUTOMATED 32.4 g/dL Normal 32.0-35.0 [facility] Comment on above: Performed By: #### L [id number] #### [facility] ([facility]) [address] [place] [address] Hematocrit (Bld) [Volume fraction] 45.0 % Normal 39.0-55.0 [facility] Comment on above: Performed By: #### L [id number] #### [facility] ([facility]) [address] [place] [address] Hemoglobin (Bld) [Mass/Vol] 14.6 g/dL Normal 13.0-17.0 [facility] Comment on above: Performed By: #### L [id number] #### [facility] ([facility]) [address] [place] [address] Immature granulocytes (Bld) [#/Vol] 0.02 10*3/uL Normal 0.00-0.20 [facility] Comment on above: Performed By: #### L [id number] #### [facility] ([facility]) [address] [place] [address] Immature granulocytes/100 WBC (Bld) 0.2 % Normal 0.0-1.0 [facility] Comment on above: Performed By: #### L [id number] #### [facility] ([facility]) [address] [place] [address] Lymphocytes (Bld) [#/Vol] 1.17 10*3/uL Low 1.20-4.00 [facility] Comment on above: Performed By: #### L [id number] #### [facility] ([facility]) [address] [place] [address] Lymphocytes/100 WBC (Bld) 11.8 % Low 20.0-45.0 [facility] Comment on above: Performed By: #### L [id number] #### [facility] ([facility]) [address] [place] [address] MCH (RBC) [Entitic mass] 27.2 pg Normal 27.0-33.0 [facility] Comment on above: Performed By: #### L [id number] #### [facility] ([facility]) [address] [place] [address] MCV (RBC) [Entitic vol] 83.8 fL Normal 82.0-98.0 [facility] Comment on above: Performed By: #### L [id number] #### [facility] ([facility]) [address] [place] [address] Monocytes (Bld) [#/Vol] 0.89 10*3/uL Normal 0.10-1.00 [facility] Comment on above: Performed By: #### L [id number] #### [facility] ([facility]) [address] [place] [address] Monocytes/100 WBC (Bld) 9.0 % Normal 5.0-12.0 [facility] Comment on above: Performed By: #### L [id number] #### [facility] ([facility]) [address] [place] [address] Neutrophils (Bld) [#/Vol] 7.78 10*3/uL High 1.60-7.60 [facility] Comment on above: Performed By: #### L [id number] #### [facility] ([facility]) [address] [facility] [place] [address] Neutrophils/100 WBC (Bld) 78.5 % High 40.0-72.0 [facility] Comment on above: Performed By: #### L [id number] #### [facility] ([facility]) [address] [place] [address] NRBC (PER 100 WBCS) BY AUTOMATED COUNT 0.0 % Normal 0 [facility] Comment on above: Performed By: #### L [id number] #### [facility] ([facility]) [address] [place] [address] PLATELETS (10*3/UL) IN BLOOD AUTOMATED COUNT 279 10*3/uL Normal 150-400 [facility] Comment on above: Performed By: #### L [id number] #### [facility] ([facility]) [address] [place] [address] RBC (Bld) [#/Vol] 5.37 10*6/uL Normal 4.20-5.70 [facility] Comment on above: Performed By: #### L [id number] #### [facility] ([facility]) [address] [place] [address] WBC (Bld) [#/Vol] 9.91 10*3/uL Normal 4.00-10.60 [facility] Comment on above: Performed By: #### L [id number] #### [facility] ([facility]) [address] [place] [address] COMPREHENSIVE METABOLIC PANE Peter 09-04-2024 Albumin [Mass/Vol] 4.3 g/dL Normal 3.5-5.7 [facility] Comment on above: Performed By: #### L [id number] #### [facility] ([facility]) [address] [place] [address] ALP [Catalytic activity/Vol] 70 U/L Normal 34-104 [facility] Comment on above: Performed By: #### L [id number] #### [facility] ([facility]) [address] [place] [address] ALT [Catalytic activity/Vol] 8 U/L Normal 7-52 [facility] Comment on above: Performed By: #### L [id number] #### [facility] ([facility]) [address] [place] [address] Anion gap [Moles/Vol] 14 mmol/L Normal 7-20 [facility] Comment on above: Performed By: #### L [id number] #### [facility] ([facility]) [address] [place] [address] AST [Catalytic activity/Vol] 14 U/L Normal 13-39 [facility] Comment on above: Performed By: #### L [id number] #### [facility] ([facility]) [address] [place] [address] Bilirubin [Mass/Vol] 1.4 mg/dL High 0.3-1.0 [facility] Comment on above: Performed By: #### L [id number] #### [facility] ([facility]) [address] [place] [address] Calcium [Mass/Vol] 9.1 mg/dL Normal 8.6-10.3 [facility] Comment on above: Performed By: #### L [id number] #### [facility] ([facility]) [address] [place] [address] Chloride [Moles/Vol] 110 mmol/L High 98-107 [facility] Comment on above: Performed By: #### L [id number] #### [facility] ([facility]) [address] [place] [address] CO2 [Moles/Vol] 19 mmol/L Low 21-31 [facility] Comment on above: Performed By: #### L [id number] #### [facility] ([facility]) [address] [place] [address] Creatinine [Mass/Vol] 1.47 mg/dL High 0.70-1.30 [facility] Comment on above: Performed By: #### L [id number] #### [facility] ([facility]) [address] [place] [address] GLOMERULAR FILTRATION RATE ML/MIN/1.73 SQ M.PREDICTED 50.1 mL/min/1.73m*2 Low >60.0 [facility] Comment on above: Result Comment: The [facility]???s estimated glomerular filtration rate (eGFR) will no longer include consideration of race in its calculation. The National Kidney Foundation???s eGFR Task Force developed new recommendations for the estimation of the glomerular filtration rate in the [place] They recommend immediate implementation of the new equation refit without the race variable in all laboratories because the calculation does not include race. In addition to not including race in the calculation and reporting, it included diversity in its development, and has acceptable performance characteristics and potential consequences that do not disproportionately affect any one group of individuals. Performed By: #### L [id number] #### [facility] ([facility]) [address] [place] [address] Glucose [Mass/Vol] 87 mg/dL Normal 70-100 [facility] Comment on above: Performed By: #### L [id number] #### [facility] ([facility]) [address] [place] [address] Potassium [Moles/Vol] 4.0 mmol/L Normal 3.5-5.1 [facility] Comment on above: Performed By: #### L [id number] #### [facility] ([facility]) [address] [place] [address] Protein [Mass/Vol] 6.6 g/dL Normal 6.0-8.3 [facility] Comment on above: Performed By: #### L [id number] #### [facility] ([facility]) [address] [place] [address] Sodium [Moles/Vol] 139 mmol/L Normal 136-145 [facility] Comment on above: Performed By: #### L [id number] #### [facility] ([facility]) [address] [place] [address] Urea nitrogen [Mass/Vol] 18 mg/dL Normal 7-25 [facility] Comment on above: Performed By: #### L [id number] #### [facility] ([facility]) [address] [place] [address] UREA NITROGEN/CREATININE (MASS RATIO) IN SER/PLAS 12.2 Normal [facility] Comment on above: Performed By: #### L [id number] #### [facility] ([facility]) [address] [place] [address] CONSULTon 09-04-2024 CONSULT - Attestation signed by Norberto Ray MD at 09/04/2024 4:39 PM By using the attestations below, the signing clinician agrees that I have read and verify that the documentation has been personally reviewed by me and ensure that the documentation accurately reflects the encounter. GC: I personally saw this patient on the day of the encounter, performed the reynoso portion(s) of the service and participated in the management and confirm the resident's documentation. Please note there may be an additional personal documentation from me. Additional Comments: Check echo Check with EP Likely discharge following echo since ILR interrogation did not reveal a pause or significant bradyarrhythmia Cardiology Consult Note Reason for Consult: Syncope, symptomatic bradycardia HPI: Efraín Johnson is a 74 y.o. male with past medical history of hypertension, hyperlipidemia, chronic kidney disease, Parkinson's disease presenting for syncope. Patient has prior history of recurrent syncopal episodes and follows with [facility] cardiology clinic outpatient. Patient was on Holter monitoring outpatient which shows sinus bradycardia with second-degree AV block type I which was initially nocturnal and asymptomatic, however patient now presenting with fall due to syncopal episode. Per family, witnessed patient walking in the kitchen then moments later heard a big thump in which the patient fell. Patient does not recall much of the incident, however does report regaining consciousness by the time EMS came. On examination, patient is alert, awake, oriented X3 however does have difficulty reporting details of the syncopal event. Troponin negative. Patient denies any chest pain, shortness of breath, lightheadedness, dizziness at this time. Prior treadmill stress test showed normal heart rate and blood pressure in response to exercise. S/p loop recorder implant 09/10/2023 with all device checks since implant not showing any significant arrhythmia. Cardiology ROS: GENERAL: Denies fever, chills, night sweats, weight loss. CARDIOVASCULAR: Denies chest pain, exertional dyspnea, orthopnea/PND, lower extremity edema, palpitations, lightheadedness/dizzi ness, syncope. RESPIRATORY: Denies SOB, coughing, wheezing GI: Denies abdominal pain, nausea/vomiting. PSYCH: Denies anxiety. Past Medical History He has a past medical history of Bradycardia, Chronic kidney disease, Dementia (CMS/HCC), Hypokalemia, Hyponatremia, and Parkinson disease. Surgical History He has a past surgical history that includes Back surgery; Cholecystectomy; Prostate surgery; and Toe Surgery. Social History He reports that he has quit smoking. His smoking use included cigarettes. He has never used smokeless tobacco. He reports that he does not currently use alcohol. No history on file for drug use. Family History Family History Problem Relation Name Age of Onset Stroke Father Stroke Paternal Grandmother Stroke Paternal Grandfather Allergies Penicillins Medications Medications Prior to Admission Medication Sig Dispense Refill Last Dose albuterol 90 mcg/actuation inhaler Inhale 2 puffs every 4 (four) hours if needed for wheezing or shortness of breath. amLODIPine (Norvasc) 10 mg tablet Take 1 tablet (10 mg) by mouth once daily as directed. 90 tablet 3 aspirin 81 mg EC tablet Take 81 mg by mouth in the morning. baclofen (Lioresal) 10 mg tablet Take 10 mg by mouth if needed each day for muscle spasms. carbidopa-levodopa (Sinemet CR) 25-100 mg ER tablet Take 1 tablet by mouth 3 times a day. carbidopa-levodopa (Sinemet) 25-100 mg tablet TAKE 1 TABLET BY MOUTH 3 TIMES DAILY AT 6 AM, 12 PM, AND 6 PM BEFORE MEALS donepezil (Aricept) 10 mg tablet Take 10 mg by mouth in the morning. hydrALAZINE (Apresoline) 10 mg tablet TAKE 1 TABLET BY MOUTH IN THE MORNING AT NOON AND AT BEDTIME 270 tablet 3 Klor-Con M20 20 mEq ER tablet Take 20 mEq by mouth in the morning. memantine (Namenda) 5 mg tablet Take 5 mg by mouth two times daily. metoprolol tartrate (Lopressor) 25 mg tablet Take 25 mg by mouth two times daily. Last Recorded Vitals Patient Vitals for the past 24 hrs: BP Temp Temp src Pulse Resp SpO2 Height Weight 09/04/24 0342 119/72 36.9 ???C (98.4 ???F) Temporal 68 18 95 % -- -- 09/04/24 0144 -- -- -- -- -- -- 1.778 m (5' 10 ) 70.8 kg (156 lb 1.4 oz) 09/04/24 0000 (!) 134/93 -- -- 70 21 95 % -- -- 09/03/24 2326 (!) 145/94 -- -- -- -- -- -- -- 09/03/24 2320 (!) 145/94 -- -- 84 15 94 % -- -- 09/03/242038 -- -- -- -- -- -- 1.778 m (5' 10 ) -- 09/03/241999 132/88 36.6 ???C (97.9 ???F) Temporal 78 20 97 % -- -- 09/03/24 1910 (!) 144/96 -- -- 81 23 -- -- -- Physical Examination: GENERAL: AOx3, in no acute distress. HEAD: Atraumatic, normocephalic. EYES: P (more content not included)... Normal [facility] NURSNOTEon 09-04-2024 NURSNOTE Patient pleasantly confused and restless this shift. Pulled IV x3 near start of shift. IV's replaced x2, warren sleeves ordered and applied. [employer] Attendants Supervisor notified Dr. Hale that patient continues to be restless with several attempts to rise from bed without assistance. Melatonin administered at HS, ineffective for sleep promotion. Order received for Ativan 0.5mg PO. Patient compliant with medication administration. Will continue to monitor this shift. Normal [facility] TSHon 09-04-2024 THYROTROPIN (MIU/L) IN SER/PLAS BY DETECTION LIMIT <= 0.05 MIU/L 0.56 mIU/L Normal 0.34-5.60 [facility] Comment on above: Performed By: #### L [id number] #### [facility] ([facility]) [address] [place] [address] POCT GLUCOSE METER UNSOLICIT ED RESULTSon 09-03-2024 Glucose [Mass/Vol] 107 mg/dL High 70-105 [facility] Comment on above: Order Comment: Waive d Testing in the ED is performed under the ED CLIA certificate #[id number]. Result Comment: [email or web address] Performed By: #### L [id number] ####[facility] ([facility])[address] [place] [address] TROPONIN Ion 09-03-2024 Troponin I.cardiac [Mass/Vol] 0.01 ng/mL Normal 0.00-0.04 [facility] Comment on above: Performed By: #### L [id number] #### [facility] ([facility]) [address] [place] [address] Office Visiton 06-01-2024 Follow-up visit [id number] Efraín Johnson 1950 M [facility] Provider Department Center 06/01/2024 ZEV JOHNSON PILAR [facility] Family History Problem Relation Age of Onset Stroke Father Stroke Paternal Grandmother Stroke Paternal Grandfather Family Status - Relation Status Age at Father Paternal Grandmother Paternal Grandfather Level of Service:35583 DE OFFICE/OUTPATIENT ESTABLISHED MOD MDM 30 MIN Reason for Visit and Comments: Hyperlipidemia [182] Hypertension [906288] - Pt is here for a six month follow up. Normal [facility] Office Visiton 12-08-2023 Follow-up visit [id number] Efraín Johnson 1950 M Date Provider Department Center 12/08/2023 MISSAEL PRINCE PILAR [facility] Family History Problem Relation Age of Onset Stroke Father Stroke Paternal Grandmother Stroke Paternal Grandfather Family Status - Relation Status Age at Father Paternal Grandmother Paternal Grandfather Level of Service:83663 DE OFFICE/OUTPATIENT ESTABLISHED LOW MDM 20 MIN Normal [facility] Documentationon 09-18-2023 Documentation [id number] Efraín Johnsno 1950 M [facility] Provider Department Center 09/18/2023 ROBIN BANUELOS [facility] Family History Problem Relation Age of Onset Stroke Father Stroke Paternal Grandmother Stroke Paternal Grandfather Family Status - Relation Status Age at Father Paternal Grandmother Paternal Grandfather Normal [facility] Office Visiton 09-14-2023 Follow-up visit [id number] Efraín Johnson 1950 M [facility] Provider Department Center 09/14/2023 ROBIN BANUELOS [facility] Family History Problem Relation Age of Onset Stroke Father Stroke Paternal Grandmother Stroke Paternal Grandfather Family Status - Relation Status Age at Father Paternal Grandmother Paternal Grandfather Level of Service:72158 DE OFFICE/OUTPATIENT ESTABLISHED MOD MDM 30 MIN Normal [facility] HPon 09-10-2023 [facility] Electrophysiology Consult Note Reason for visit: [facility] follow-up, bradycardia, holter monitor , new to EP HPI: Efraín Johnson is a 73 y.o. year old with past medical history of Hypertension, bradycardia, CKD wth baseline appearing around Cr1.5, anemia. Patient was seen in the [facility] for her sinus bradycardia. He was having heart rate ranging in the 50s but was asymptomatic and was discharged with event monitor. He was also dealing with an SHERYL and was found to be dehydrated, hypokalemic, hyponatremic. He was seen by neurology for lower extremity weakness who recommended MRI of C-spine, no concern for stroke. He was seen in [facility] 11/11/2022 for weakness and difficulty getting [...] Murmur: not heard (more content not included)... [facility] NURSNOTEon 09-10-2023 NURSNOTE RN educated pt on d/ c instructions. RN encouraged pt to voice any questions or concerns. Pt verbalizes no questions or concerns at this time. Pt was wheeled off of unit with all of belongings. [facility] Outside Colonoscopyon 2022 Outside Colonoscopy [id number]#1 .00CD:127 [facility] Insurance Correspondenceon 0 05-14-2023 Insurance Correspondence [id number]# 1.00CD:127 Normal [facility] Consent for Procedure/Surger yon 05-13-2023 Consent for Procedure/Surgery [id number] .00CD:127 Normal [facility] Ambulatory Visit Summaryon 0 05-12-2023 [...] Epidermoid cyst of skin of back Normal [facility] ED Note-Physicianon 04-15-20 ED Note-Physician [id number]#1 .00CD:127 Normal [facility] RAD - CT Reporton 04-15-2023 RAD - CT Report [id number]#1 .00CD:127 Normal [facility] Physician Referralon 023 Physician Referral [id number] .00CD:127 Normal [facility] Physician Referralon 023 Physician Referral [id number] .00CD:127 Normal [facility] BLOOD CULTURE ID PANELon A. baumannii Not detected Normal NOT DETECTED The [facility] Comment on above: Performed By: #### B CID2 ####[facility] [address]ypme[address] [place] [address]Dr. Flaco Lawrence Bacteriodes fragilis Not detected Normal NOT DETECTED The [facility] Comment on above: Performed By: #### B CID2 ####[facility] L[address]kyqircx[address] [place] [id number]. Flaco Lawrence BCID CONTROLS PASSED Normal The [facility] Comment on above: Performed By: #### B CID2 ####[facility] Glpmonoylb14[address] [place] [id number]. Flaco Lawrence BCIDBTHD BLOOD CULTURE BOTTLE INFORMATION Normal [facility] Comment on above: Performed By: #### B CID2 ####[facility] Ncaqgyaxpm34[address] [place] [id number]. Yiedith Lawrence BCIDHD1 ANTIMICROBIAL RESISTANCE GENES Normal The [facility] Comment on above: Performed By: #### B CID2 ####[facility] Ytuzekoodc[address] [place] [address]Dr. Yiedith Lawrence BCIDHD2 SEE BELOW Normal [facility] Comment on above: Result Comment: Note : Antimicrobial resitance can occur via multiple mechanisms. A Not Detected result for the [employer] antomicrobial resistance gene assays does not indicate antimicrobial susceptibility. Subculturing is required for species identification and susceptibility testing of isolates. Performed By: #### B CID2 ####[facility] Eypxcratuf[address] [place], [place] [address]Dr. Yiedith Lawrence BCIDHD3 Positive Normal [facility] Comment on above: Performed By: #### B CID2 ####[facility] Lmjpwdrxgk[address] [place], [place] [address]Dr. Yiedith Lawrence BCIDHD4 Negative Normal [facility] Comment on above: Performed By: #### B CID2 ####[facility] Abejgtbdug6[address] [place], [place] [address]Dr. Yiedith Lawrence BCIDHD5 YEAST Normal The [facility] Comment on above: Performed By: #### B CID2 ####[facility] Vaaoorihry66[address] [place], [place] [address]Dr. Yilan Lawrence Bottle Set: Set 2 Normal [facility] Comment on above: Performed By: #### B CID2 ####[facility] Jklnuensel[address] [place], [place] [address]Dr. Yiedith Lawrence Bottle: Pediatric Normal The [facility] Comment on above: Performed By: #### B CID2 ####[facility] Uqlewhcczq43[address] [place], [place] [address]Dr. Yilan Lawrence C. neoformans/gattii Not detected Normal NOT DETECTED The [facility] Comment on above: Performed By: #### B CID2 ####[facility] Njvpiirvts[address] [place], [place] [address]Dr. Yiedith Lawrence Angela albicans Not detected Normal NOT DETECTED The [facility] Comment on above: Performed By: #### B CID2 ####[facility] Agnhltgpbu6[address] [place] [id number]. Yiedith Lawrence Angela auris Not detected Normal NOT DETECTED The [facility] Comment on above: Performed By: #### B CID2 ####[facility] Nunrnwaume47[address] [place] [id number]. Yilan Lawrence Angela glabrata Not detected Normal NOT DETECTED The [facility] Comment on above: Performed By: #### B CID2 ####[facility] Wrlglfamgz9[address] [place] [id number]. Yilan Lawrence Angela Krusei Not detected Normal NOT DETECTED The [facility] Comment on above: Performed By: #### B CID2 ####[facility] Cxtyrebnwi9[address] [place] [address]Dr. Yilan Lawrence Angela Parapsilosis Not detected Normal NOT DETECTED The [facility] Comment on above: Performed By: #### B CID2 ####[facility] Leplynozoq[address] [place] [address]Dr. Yiedith Lawrence Angela Tropicalis Not detected Normal NOT DETECTED [facility] Comment on above: Performed By: #### B CID2 ####[facility] Yvrmcihfwo6[address] [place], [place] [address]Dr. Flaco Lawrence CTX-M Resistant Gene Not Applicable Normal NOT DETECTE D [facility] Comment on above: Performed By: #### B CID2 ####[facility] Rddprrxtia[address] [place] [address]Dr. Yiedith Lawrence E. Cloacae complex Not detected Normal NOT DETECTED [facility] Comment on above: Performed By: #### B CID2 ####[facility] Uxwwrxnzng8514 [place] [id number]. Yilan Lawrence E. faecalis Not detected Normal NOT DETECTED The [facility] Comment on above: Performed By: #### B CID2 ####[facility] Gpwpntzpqp12[address] [place] [address]Dr. Yiedith Lawrence E. faecium Not detected Normal NOT DETECTED The [facility] Comment on above: Performed By: #### B CID2 ####[facility] Zxmyygeytw[address] [place], [place] [address]Dr. Flaco Lawrence Enterobacteriaceae Not detected Normal NOT DETECTED [facility] Comment on above: Performed By: #### B CID2 ####[facility] Pchkgdivga[address] [place], [place] [address]Dr. Flaco Lawrence Escherichia coli Not detected Normal NOT DETECTED The [facility] Comment on above: Performed By: #### B CID2 ####[facility] Wlxzrwdvqf614[address] [place], [place] [address]Dr. Flaco Lawrence H. influenzae Not detected Normal NOT DETECTED The [facility] Comment on above: Performed By: #### B CID2 ####[facility] Hvavaudeem47[address] [place], [place] [address]Dr. Flaco Lawrence IMP Resistant Gene Not Applicable Normal NOT DETECTED [facility] Comment on above: Performed By: #### B CID2 ####[facility] Cmhohlnxzm309[address] [place], [place] [address]Dr. Flaco Lawrence K. oxytoca Not detected Normal NOT DETECTED The [facility] Comment on above: Performed By: #### B CID2 ####[facility] Lycqjurwvn4[address] [place], [place] [address]Dr. Flaco Lawrence K. pneumoniae Not detected Normal NOT DETECTED The [facility] Comment on above: Performed By: #### B CID2 ####[facility] Ciphdwlzni0718[address] [place], [place] [address]Dr. Flaco Lawrence Klebsiella aerogenes Not detected Normal NOT DETECTED [facility] Comment on above: Performed By: #### B CID2 ####[facility] Jujorjouoe32[address] [place], [place] [address]Dr. Flaco Lawrence KPC Resistant Gene Not detected Normal NOT DETECTED [facility] Comment on above: Performed By: #### B CID2 ####[facility] Qvdztrtxci917[address] [place], [place] [address]Dr. Flaco Lawrence List. monocytogenes Not detected Normal NOT DETECTED [facility] Comment on above: Performed By: #### B CID2 ####[facility] Neuwfhmnqu875[address] [place], [place] [address]Dr. Flaco Lawrence Mcr-1 Resistant Gene Not Applicable Normal NOT DETECTE D [facility] Comment on above: Performed By: #### B CID2 ####[facility] Kazlbgnsbs4830[address] [place], [place] [address]Dr. Purvilan Lawrence mecA/C Not Applicable Normal NOT DETECTED The [facility] Comment on above: Performed By: #### B CID2 ####[facility] Asemgijlwb6109[address] [place], [place] [address]Dr. Flaco Lawrence mecA/C MREJ Not Applicable Normal NOT DETECTED The [facility] Comment on above: Performed By: #### B CID2 ####[facility] Kryynvsdmd6423[address] [place], [place] [address]Dr. Flaco Lawrence N. meningitidis Not detected Normal NOT DETECTED The [facility] Comment on above: Performed By: #### B CID2 ####[facility] Nxgkcusiex3208[address] [place], [place] [address]Dr. Flaco Lawrence NDM Resistant Gene Not Applicable Normal NOT DETECTED The [facility] Comment on above: Performed By: #### B CID2 ####[facility] Jndlqpptqg4911[address] [place], [place] [address]Dr. Flaco Lawrence Oxa-48-like Not Applicable Normal NOT DETECTED The [facility] Comment on above: Performed By: #### B CID2 ####[facility] Bqmbtpagqw2877[address] [place], [place] [address]Dr. Flaco Lawrence Proteus Not detected Normal NOT DETECTED [facility] Comment on above: Performed By: #### B CID2 ####[facility] Xpjqixsgza5737[address] [place], [place] [address]Dr. Flaco Lawrence Pseud. aeruginosa Not detected Normal NOT DETECTED The [facility] Comment on above: Performed By: #### B CID2 ####[facility] Rputjyksft875[address] [place], [place] [address]Dr. Flaco Lawrence S. maltophilia Not detected Normal NOT DETECTED The [facility] Comment on above: Performed By: #### B CID2 ####[facility] Pyslpmjwhg2308[address] [place], [place] [address]Dr. Flaco Lawrence Salmonella Not detected Normal NOT DETECTED [facility] Comment on above: Performed By: #### B CID2 ####[facility] Inejbwnopm545[address] [place], [place] [address]Dr. Flaco Lawrence Seratia marcescens Not detected Normal NOT DETECTED [facility] Comment on above: Performed By: #### B CID2 ####[facility] Mzavkuyyec5[address] [place], [place] [address]Dr. Flaco Lawrence Site: left hand Normal [facility] Comment on above: Performed By: #### B CID2 ####[facility] Iyzijjtunv045[address] [place], [place] [address]Dr. Flaco Lawrence Staph. aureus Not detected Normal NOT DETECTED [facility] Comment on above: Performed By: #### B CID2 ####[facility] Rapwlvzzsr20[address] [place], [place] [address]Dr. Flaco Lawrence Staph. epidermidis Not detected Normal NOT DETECTED [facility] Comment on above: Performed By: #### B CID2 ####[facility] Nbrtktvhnw0218[address] [place], [place] [address]Dr. Flaco Lawrence Staph. lugdunensis Not detected Normal NOT DETECTED [facility] Comment on above: Performed By: #### B CID2 ####[facility] Fzhcmsvtgj688[address] [place], [place] [address]Dr. Flaco Lawrence Staphylococcus Not detected Normal NOT DETECTED [facility] Comment on above: Performed By: #### B CID2 ####[facility] Tfxmwoqtam409[address] [place], [place] [address]Dr. Yilan Lawrence Strep. agalactiae Not detected Normal NOT DETECTED [facility] Comment on above: Performed By: #### B CID2 ####[facility] Xrzrkjtufv404[address] [place], [place] [address]Dr. Purvilan Lawrence Strep. pneumoniae Not detected Normal NOT DETECTED [facility] Comment on above: Performed By: #### B CID2 ####[facility] Qtstzzodhf8708[address] [place], [place] [address]Dr. Yiedith Lawrence Strep. pyogenes Not detected Normal NOT DETECTED The [facility] Comment on above: Performed By: #### B CID2 ####[facility] Anyhqumfxw2970[address] [place], [place] [address]Dr. Flaco Branden Streptococcus Detected Critically abnormal NOT DETECTED [facility] Comment on above: Performed By: #### B CID2 ####[facility] Qvvjrzwxqj4939[address] [place], [place] [address]Dr. Purviedith Lawrence Hao/B Resist. Gene Not detected Normal NOT DETECTED [facility] Comment on above: Performed By: #### B CID2 ####[facility] Tdwcrpymjb2630[address] [place], [place] [address]Dr. Purviedith Lawrence VIM Resistant Gene Not Applicable Normal NOT DETECTED [facility] Comment on above: Performed By: #### B CID2 ####[facility] Avckrqhlcw129[address] [place], [place] [address]Dr. Flaco Branden CBC AUTO DIFFon 02-10-2023 BASO # 0.0 103/ul Normal 0.0-0.1 [facility] Comment on above: Performed By: #### C BC ####[facility] Ihlqfbmdvw7378[address] [place], [place] [address]Dr. Purviedith Lawrence Basophils/100 WBC (Bld) 0.5 % Normal 0.2-2.0 [facility] Comment on above: Performed By: #### C BC ####[facility] Ymfjwzvwdr896[address] [place], [place] [address]Dr. Purviedith Lawrence EO # 0.1 103/ul Normal 0.0-0.7 [facility] Comment on above: Performed By: #### C BC ####[facility] Wssvvosfrj1200[address] [place], [place] [address]Dr. Flaco Lawrence Eosinophils/100 WBC (Bld) 1.1 % Normal 0.9-7.0 [facility] Comment on above: Performed By: #### C BC ####[facility] Dzqgwedxma626[address] [place], [place] [address]Dr. Flaco Lawrence Erythrocyte distribution width (RBC) [Ratio] 16.0 % Critically high 11.0-15.0 [facility] Comment on above: Performed By: #### C BC ####[facility] Cwgonggini[address] [place] [address]Dr. Flaco Lawrence Hematocrit (Bld) [Volume fraction] 40.1 % Critically low 42.0-54.0 [facility] Comment on above: Performed By: #### C BC ####[facility] Vwbhcwioin18[address] [place] [address]Dr. Flaco Lawrence Hemoglobin (Bld) [Mass/Vol] 13.2 g/dL Critically low 14.0-18.0 [facility] Comment on above: Performed By: #### C BC ####[facility] Lmbcngbdop1814[address] [place], [place] [address]Dr. Flaco Lawrence IG # 0.01 10e3/ul Normal 0.00-0.03 [facility] Comment on above: Performed By: #### C BC ####[facility] Lmzleuyoix[address] [place], [place] [address]Dr. Flaco Lawrence IG % 0.2 % Normal 0.0-0.5 [facility] Comment on above: Performed By: #### C BC ####[facility] Hsggdlewjw4059[address] [place], [place] [address]Dr. Flaco Lawrence LYMPH # 1.8 103/ul Normal 1.2-3.8 [facility] Comment on above: Performed By: #### C BC ####[facility] Iwwoietrlz0[address] [place], [place] [address]Dr. Flaco Lawrence Lymphocytes/100 WBC (Bld) 28.1 % Normal 20.5-60.0 [facility] Comment on above: Performed By: #### C BC ####[facility] Ighjdsvbpo57[address] [place] [address]Dr. Flaco Lawrence MANUAL DIFF REQ NO Normal The [facility] Comment on above: Performed By: #### C BC ####[facility] Kgaodoshhy9599[address] [place], [place] [address]Dr. Flaco Lawrence MCH (RBC) [Entitic mass] 28.0 pg Normal 25.9-34.0 [facility] Comment on above: Performed By: #### C BC ####[facility] Gkxkcmpewn8689[address] [place], [place] [address]Dr. Flaco Lawrence MCHC (RBC) [Mass/Vol] 32.9 g/dL Normal 29.9-35.2 [facility] Comment on above: Performed By: #### C BC ####[facility] Upwxnapuvp72[address] [place] [address]Dr. Flaco Lawrence MCV (RBC) [Entitic vol] 85.0 fL Normal 80.0-94.0 [facility] Comment on above: Performed By: #### C BC ####[facility] Gvegsmirkc[address] [place] [address]Dr. Flaco Branden MONO # 0.5 103/ul Normal 0.3-0.8 [facility] Comment on above: Performed By: #### C BC ####[facility] Iicupwlhqm9044 [place] [address]Dr. Flaco Lawrence Monocytes/100 WBC (Bld) 7.2 % Normal 1.7-12.0 [facility] Comment on above: Performed By: #### C BC ####[facility] Grfvmjvvbe[address] [place], [place] [address]Dr. Flaco Lawrence NEUT # 4.1 103/ul Normal 1.4-6.5 [facility] Comment on above: Performed By: #### C BC ####[facility] Ojowlwpshc40[address] [place] [address]Dr. Purviedith Lawrence Neutrophils/100 WBC (Bld) 62.9 % Normal 43.0-75.0 [facility] Comment on above: Performed By: #### C BC ####[facility] Mnhrqsfcqb50[address] [place] [address]Dr. Purviedith Lawrence Platelet mean volume (Bld) [Entitic vol] 10.7 fL Normal 9.5-13.5 [facility] Comment on above: Performed By: #### C BC ####[facility] Ummslohlim5[address] [place] [address]Dr. Flaco Lawrence PLT 180 103/ul Normal 150-450 [facility] Comment on above: Performed By: #### C BC ####[facility] Wuwpebcnpi38[address] [place] [address]Dr. Flaco Lawrence RBC 4.72 106/ul Normal 4.70-6.10 [facility] Comment on above: Performed By: #### C BC ####[facility] Sugvxkxxvm9[address] [place] [address]Dr. Flaco Lawrence WBC 6.5 103/ul Normal 4.0-11.0 [facility] Comment on above: Performed By: #### C BC ####[facility] Vloxyqqqdz[address] [place] [address]Dr. Flaco Lawrence PROF 14(COMP METB)on 023 Albumin [Mass/Vol] 2.8 g/dL Critically low 3.4-5.0 [facility] Comment on above: Performed By: #### C MP ####[facility] Flivekevug[address] [place] [address]Dr. Flaco Lawrence Albumin/Globulin [Mass ratio] 1.2 {ratio} Normal [facility] Comment on above: Performed By: #### C MP ####[facility] Ayuztsyggz[address] [place] [address]Dr. Flaco Lawrence ALP [Catalytic activity/Vol] 71 U/L Normal 46-116 [facility] Comment on above: Performed By: #### C MP ####[facility] Scpkumdxza3518 [place] [address]Dr. Flaco Lawrence ALT [Catalytic activity/Vol] 9 U/L Critically low 16-63 [facility] Comment on above: Performed By: #### C MP ####[facility] Vihoxxsidr[address] [place] [address]Dr. Flaco Lawrence Anion gap [Moles/Vol] 11.5 mmol/L Normal Th [facility] Comment on above: Performed By: #### C MP ####[facility] Cisxyihmzt5[address] [place] [address]Dr. Flaco Lawrence AST [Catalytic activity/Vol] 13 U/L Critically low 15-37 [facility] Comment on above: Performed By: #### C MP ####[facility] Oohhbtdgdk90[address] [place] [address]Dr. Flaco Lawrence Bilirubin [Mass/Vol] 1.4 mg/dL Critically high 0.2-1.0 [facility] Comment on above: Performed By: #### C MP ####[facility] Drynshtpba9[address] [place], [place] [address]Dr. Purviedith Branden Calcium [Mass/Vol] 7.9 mg/dL Critically low 8.5-10.1 Th e [facility] Comment on above: Performed By: #### C MP ####[facility] Stadxvazjf85[address] [place], [place] [address]Dr. Flaco Lawrence Chloride [Moles/Vol] 110 mmol/L Critically high 98-107 [facility] Comment on above: Performed By: #### C MP ####[facility] Xuvbiisnbq2267[address] [place], [place] [address]Dr. Flaco Lawrence CO2 [Moles/Vol] 26.4 mmol/L Normal 21.0-32.0 The [facility] Comment on above: Performed By: #### C MP ####[facility] Nuijlgsypi4469[address] [place], [place] [address]Dr. Flaco Lawrence Creatinine [Mass/Vol] 1.35 mg/dL Critically high 0.70-1.30 [facility] Comment on above: Performed By: #### C MP ####[facility] Wbytdzkyna8[address] [place], [place] [address]Dr. Flaco Lawrence EGFR-AF PANAMANIAN >60 Normal >=60 The [facility] Comment on above: Performed By: #### C MP ####[facility] Xxrgwyajpt[address] [place], [place] [address]Dr. Flaco Lawrence EGFR-NON AF PANAMANIAN 52 mL/min/1.73m2 Critically low >=60 [facility] Comment on above: Performed By: #### C MP ####[facility] Pklffwzrcy363[address] [place], [place] [address]Dr. Flaco Lawrence Globulin (S) [Mass/Vol] 2.4 g/dL Normal [facility] Comment on above: Performed By: #### C MP ####[facility] Lqruphultk73[address] [place], [place] [address]Dr. Flaco Lawrence Glucose [Mass/Vol] 90 mg/dL Normal 74-106 [facility] Comment on above: Performed By: #### C MP ####[facility] Bieceyiyzz[address] [place] [address]Dr. Flaco Lawrence Potassium [Moles/Vol] 2.8 mmol/L Critically low 3.5-5.1 [facility] Comment on above: Performed By: #### C MP ####[facility] Sqfhwuhkbw17[address] [place], [place] [address]Dr. Flaco Lawrence Protein [Mass/Vol] 5.2 g/dL Critically low 6.4-8.2 Th e [facility] Comment on above: Performed By: #### C MP ####[facility] Bclwiyfzgx1097[address] [place], [place] [address]Dr. Flaco Lawrence Sodium [Moles/Vol] 143 mmol/L Normal 136-145 [facility] Comment on above: Performed By: #### C MP ####[facility] Nobvdlxugu1110[address] [place], [place] [address]Dr. Flaco Lawrence Urea nitrogen [Mass/Vol] 13.0 mg/dL Normal 7.0-18.0 [facility] Comment on above: Performed By: #### C MP ####[facility] Sjmrumbnty9280[address] [place], [place] [address]Dr. Flaco Lawrence Urea nitrogen/Creatinine [Mass ratio] 9.6 mg/mg Normal [facility] Comment on above: Performed By: #### C MP ####[facility] Ykcqxygavj6768[address] [place], [place] [address]Dr. Flaco Lawrence AMMONIAon 02-09-2023 Ammonia (P) [Mass/Vol] ug/dL Critically low 11-32 [facility] Comment on above: Performed By: #### A MM ####[facility] Gzvctssmiw6125[address] [place], [place] [address]Dr. Flaco Lawrence CBC AUTO DIFFon 02-09-2023 BASO # 0.0 103/ul Normal 0.0-0.1 [facility] Comment on above: Performed By: #### C BC ####[facility] Mnrysehgxl34[address] [place] [id number]. Flaco Lawrence Basophils/100 WBC (Bld) 0.6 % Normal 0.2-2.0 [facility] Comment on above: Performed By: #### C BC ####[facility] Pdmwyudbao8255[address] [place], [place] [address]Dr. Flaco Lawrence EO # 0.0 103/ul Normal 0.0-0.7 [facility] Comment on above: Performed By: #### C BC ####[facility] Qhbjmrqfrc1816[address] [place], [place] [address]Dr. Flaco Lawrence Eosinophils/100 WBC (Bld) 0.8 % Critically low 0.9-7.0 [facility] Comment on above: Performed By: #### C BC ####[facility] Dfgrhgddnt50[address] [place], [place] [address]Dr. Flaco Lawrence Erythrocyte distribution width (RBC) [Ratio] 15.9 % Critically high 11.0-15.0 [facility] Comment on above: Performed By: #### C BC ####[facility] Nbldofmqle[address] [place], [place] [address]Dr. Flaco Lawrence Hematocrit (Bld) [Volume fraction] 40.6 % Critically low 42.0-54.0 [facility] Comment on above: Performed By: #### C BC ####[facility] Glilrfswtf[address] [place], [place] [id number]. Flaco Lawrence Hemoglobin (Bld) [Mass/Vol] 13.1 g/dL Critically low 14.0-18.0 [facility] Comment on above: Performed By: #### C BC ####[facility] Hugfhqdguw3[address] [place] [address]Dr. Flaco Lawrence IG # 0.01 10e3/ul Normal 0.00-0.03 [facility] Comment on above: Performed By: #### C BC ####[facility] Jeljrferhh[address] [place], [place] [address]Dr. Flaco Lawrence IG % 0.2 % Normal 0.0-0.5 [facility] Comment on above: Performed By: #### C BC ####[facility] Nsxndkgxxe4190 [place] [id number]. Flaco Lawrence LYMPH # 1.3 103/ul Normal 1.2-3.8 [facility] Comment on above: Performed By: #### C BC ####[facility] Yhdmzrmsnc9593 [place] [id number]. Flaco Branden Lymphocytes/100 WBC (Bld) 26.3 % Normal 20.5-60.0 [facility] Comment on above: Performed By: #### C BC ####[facility] Jhiqryscng9089 [place] [id number]. Purviedith Lawrence MANUAL DIFF REQ NO Normal [facility] Comment on above: Performed By: #### C BC ####[facility] Wzwgijxjaz7746 [place] [id number]. Flaco Branden MCH (RBC) [Entitic mass] 27.5 pg Normal 25.9-34.0 [facility] Comment on above: Performed By: #### C BC ####[facility] Llvywxlfcr9009 [place] [id number]. Flaco Lawrence MCHC (RBC) [Mass/Vol] 32.3 g/dL Normal 29.9-35.2 [facility] Comment on above: Performed By: #### C BC ####[facility] Wsgnuofwnv6351 [place] [id number]. Purviedith Branden MCV (RBC) [Entitic vol] 85.3 fL Normal 80.0-94.0 [facility] Comment on above: Performed By: #### C BC ####[facility] Xwpymkxrhv0166 [place] [id number]. Flaco Branden MONO # 0.4 103/ul Normal 0.3-0.8 [facility] Comment on above: Performed By: #### C BC ####[facility] Bvkwledzyr8231 [place] [id number]. Flaco Branden Monocytes/100 WBC (Bld) 7.6 % Normal 1.7-12.0 [facility] Comment on above: Performed By: #### C BC ####[facility] Jdjpmwhvdx8185 [place] [id number]. Flaco Lawrence NEUT # 3.2 103/ul Normal 1.4-6.5 [facility] Comment on above: Performed By: #### C BC ####[facility] Qhjbglgxje4548 [place] [id number]. Flaco Lawrence Neutrophils/100 WBC (Bld) 64.5 % Normal 43.0-75.0 [facility] Comment on above: Performed By: #### C BC ####[facility] Wanknrhoue5448 [place] [id number]. Flaco Lawrence Platelet mean volume (Bld) [Entitic vol] 10.6 fL Normal 9.5-13.5 [facility] Comment on above: Performed By: #### C BC ####[facility] Doeudwczkb4420 [place] [id number]. Flaco Branden PLT 195 103/ul Normal 150-450 [facility] Comment on above: Performed By: #### C BC ####[facility] Sinlbufqxc7122 [place] [id number]. Flaco Lawrence RBC 4.76 106/ul Normal 4.70-6.10 [facility] Comment on above: Performed By: #### C BC ####[facility] Jfveejakhj6803 [place] [id number]. Flaco Lawrence WBC 5.0 103/ul Normal 4.0-11.0 [facility] Comment on above: Performed By: #### C BC ####[facility] Fiecxihopd18[address] [place] [address]Dr. Flaco Lawrence PROF 14(COMP METB)on 023 Albumin [Mass/Vol] 3.0 g/dL Critically low 3.4-5.0 [facility] Comment on above: Performed By: #### C MP ####[facility] Pjxzpavjgv4825 [place] [id number]. Purviedith Branden Albumin/Globulin [Mass ratio] 1.2 {ratio} Normal [facility] Comment on above: Performed By: #### C MP ####[facility] Lkeqphetea3894 [place] [id number]. Flaco Lawrence ALP [Catalytic activity/Vol] 67 U/L Normal 46-116 [facility] Comment on above: Performed By: #### C MP ####[facility] Mfbqyhkluu4866 [place] [id number]. Flaco Lawrence ALT [Catalytic activity/Vol] 7 U/L Critically low 16-63 [facility] Comment on above: Performed By: #### C MP ####[facility] Qhgoaskpzd4697 [place] [id number]. Flaco Lawrence Anion gap [Moles/Vol] 12.8 mmol/L Normal Th [facility] Comment on above: Performed By: #### C MP ####[facility] Vsfikpjmzp4445 [place] [address]Dr. Flaco Lawrence AST [Catalytic activity/Vol] 16 U/L Normal 15-37 [facility] Comment on above: Performed By: #### C MP ####[facility] Rkxnvfakkn3089 [place] [address]Dr. Flaco Lawrence Bilirubin [Mass/Vol] 2.1 mg/dL Critically high 0.2-1.0 [facility] Comment on above: Performed By: #### C MP ####[facility] Tyruyrueeb[address] [place], [place] [id number]. Flaco Lawrence Calcium [Mass/Vol] 8.1 mg/dL Critically low 8.5-10.1 [facility] Comment on above: Performed By: #### C MP ####[facility] Poxbfxstkb9058 [place] [id number]. Flaco Lawrence Chloride [Moles/Vol] 110 mmol/L Critically high 98-107 [facility] Comment on above: Performed By: #### C MP ####[facility] Kpwymymesi0945 [place] [address]Dr. Flaco Lawrence CO2 [Moles/Vol] 26.0 mmol/L Normal 21.0-32.0 [facility] Comment on above: Performed By: #### C MP ####[facility] Bshoipfurw6119 [place], [place] [address]Hl. Flaco Lawrence Creatinine [Mass/Vol] 1.43 mg/dL Critically high 0.70-1.30 [facility] Comment on above: Performed By: #### C MP ####[facility] Tkvfmkrvrv2038 [place], [place] [address]Hi. Flaco Lawrence EGFR-AF PANAMANIAN 59 mL/min/1.73m2 Critically low >=60 [facility] Comment on above: Performed By: #### C MP ####[facility] Tvaykeqqib8865 [place] [id number]. Flaco Lawrence EGFR-NON AF PANAMANIAN 49 mL/min/1.73m2 Critically low >=60 [facility] Comment on above: Performed By: #### C MP ####[facility] Rrhxeszmms7409 [place] [id number]. Flaco Lawrence Globulin (S) [Mass/Vol] 2.4 g/dL Normal [facility] Comment on above: Performed By: #### C MP ####[facility] Mgqfxstrxe6820 [place] [id number]. Flaco Lawrence Glucose [Mass/Vol] 77 mg/dL Normal 74-106 [facility] Comment on above: Performed By: #### C MP ####[facility] Zxoumusrlf0642 [place] [id number]. Flaco Lawrence Potassium [Moles/Vol] 2.8 mmol/L Critically low 3.5-5.1 [facility] Comment on above: Performed By: #### C MP ####[facility] Uctxnybmta8957 [place] [id number]. Flaco Lawrence Protein [Mass/Vol] 5.4 g/dL Critically low 6.4-8.2 Th [facility] Comment on above: Performed By: #### C MP ####[facility] Zgtjlkkzpy4605 [place] [id number]. Flaco Lawrence Sodium [Moles/Vol] 145 mmol/L Normal 136-145 [facility] Comment on above: Performed By: #### C MP ####[facility] Hftulobgwe0127 [place] [id number]. Flaco Lawrence Urea nitrogen [Mass/Vol] 8.0 mg/dL Normal 7.0-18.0 [facility] Comment on above: Performed By: #### C MP ####[facility] Wywkzutavj2456 [place] [phone]. Flaco Lawrence Urea nitrogen/Creatinine [Mass ratio] 5.6 mg/mg Normal [facility] Comment on above: Performed By: #### C MP ####[facility] Eeiwcbwgxy[address] [place], [place] [address]Dr. Flaco Lawrence T4on 02-09-2023 T4 [Mass/Vol] 7.10 ug/dL Normal 4.50-12.10 [facility] Comment on above: Performed By: #### T SH, T4 ####[facility] Csufenruyh[address] [place], [place] [address]Dr. Flcao Lawrence TSHon 02-09-2023 TSH 0.633 uIU/mL Normal 0.358-3.740 [facility] Comment on above: Performed By: #### T SH, T4 ####[facility] Mkxrfrtwhi20[address] [place], [place] [address]Dr. Flaco Lawrence US SINGLE QUAD RT UPPERon US SINGLE QUAD RT UPPER Normal [facility] AMYLASEon 02-08-2023 Amylase [Catalytic activity/Vol] 41 U/L Normal 25-115 [facility] Comment on above: Performed By: #### A MY, LIPA, CMP ####[facility] Twuafrglpn[address] [place], [place] [address]Dr. Flaco Lawrence CBC AUTO DIFFon 02-08-2023 BASO # 0.0 103/ul Normal 0.0-0.1 [facility] Comment on above: Performed By: #### C BC ####[facility] Nblczlgofy1020 [place] [address]Dr. Flaco Lawrence Basophils/100 WBC (Bld) 0.7 % Normal 0.2-2.0 [facility] Comment on above: Performed By: #### C BC ####[facility] Dqvabgkjnf0860 [place] [id number]. Flaco Lawrence EO # 0.0 103/ul Normal 0.0-0.7 [facility] Comment on above: Performed By: #### C BC ####[facility] Wquirdzyqq4628 [place] [address]Dr. Flaco Lawrence Eosinophils/100 WBC (Bld) 0.5 % Critically low 0.9-7.0 [facility] Comment on above: Performed By: #### C BC ####[facility] Dfdrwfzaji45[address] [place], [place] [address]Dr. Flaco Lawrence Erythrocyte distribution width (RBC) [Ratio] 15.9 % Critically high 11.0-15.0 [facility] Comment on above: Performed By: #### C BC ####[facility] Rjkozgkwao[address] [place], [place] [address]Dr. Flaco Lawrence Hematocrit (Bld) [Volume fraction] 46.1 % Normal 42.0-54.0 [facility] Comment on above: Performed By: #### C BC ####[facility] Inghojpswa[address] [place], [place] [address]Dr. Flaco Lawrence Hemoglobin (Bld) [Mass/Vol] 15.2 g/dL Normal 14.0-18.0 [facility] Comment on above: Performed By: #### C BC ####[facility] Ydioddkeyf[address] [place], [place] [address]Dr. Flaco Lawrence IG # 0.02 10e3/ul Normal 0.00-0.03 [facility] Comment on above: Performed By: #### C BC ####[facility] Fdfsyuqjox57[address] [place], [place] [address]Dr. Flaco Lawrence IG % 0.3 % Normal 0.0-0.5 [facility] Comment on above: Performed By: #### C BC ####[facility] Nhxbaiviba14[address] [place], [place] [address]Dr. Flaco Lawrence LYMPH # 1.5 103/ul Normal 1.2-3.8 [facility] Comment on above: Performed By: #### C BC ####[facility] Edmhrosjuj8452 [place] [id number]. Flaco Lawrence Lymphocytes/100 WBC (Bld) 26.1 % Normal 20.5-60.0 [facility] Comment on above: Performed By: #### C BC ####[facility] Ummgxyikgh7265 [place] [id number]. Flaco Branden MANUAL DIFF REQ NO Normal [facility] Comment on above: Performed By: #### C BC ####[facility] Dismxaogub6803 [place] [phone]. Flaco Branden MCH (RBC) [Entitic mass] 27.9 pg Normal 25.9-34.0 [facility] Comment on above: Performed By: #### C BC ####[facility] Cvlveveonu6634 [place] [address]Dr. Flaco Lawrence MCHC (RBC) [Mass/Vol] 33.0 g/dL Normal 29.9-35.2 [facility] Comment on above: Performed By: #### C BC ####[facility] Gnobacmsis3583 [place] [id number]. Flaco Branden MCV (RBC) [Entitic vol] 84.6 fL Normal 80.0-94.0 [facility] Comment on above: Performed By: #### C BC ####[facility] Zbmpgckqva8539 [place] [id number]. Pruviedith Branden MONO # 0.6 103/ul Normal 0.3-0.8 [facility] Comment on above: Performed By: #### C BC ####[facility] Kfimibxzql7304 [place] [id number]. Flaco Branden Monocytes/100 WBC (Bld) 9.6 % Normal 1.7-12.0 [facility] Comment on above: Performed By: #### C BC ####[facility] Vlaqoalppd9541 [place] [id number]. Flaco Lawrence NEUT # 3.7 103/ul Normal 1.4-6.5 [facility] Comment on above: Performed By: #### C BC ####[facility] Cjdwlulyot4243 [place] [id number]. Flaco Lawrence Neutrophils/100 WBC (Bld) 62.8 % Normal 43.0-75.0 [facility] Comment on above: Performed By: #### C BC ####[facility] Lmdxtacpgs4046 [place] [id number]. Flaco Lawrence Platelet mean volume (Bld) [Entitic vol] 10.6 fL Normal 9.5-13.5 [facility] Comment on above: Performed By: #### C BC ####[facility] Hcwfvmrysc1209 [place] [id number]. Flaco Lawrence PLT 255 103/ul Normal 150-450 [facility] Comment on above: Performed By: #### C BC ####[facility] Isfukdywla[address] [place], [place] [address]Dr. Flaco Lawrence RBC 5.45 106/ul Normal 4.70-6.10 [facility] Comment on above: Performed By: #### C BC ####[facility] Gpmpipsmnt9[address] [place], [place] [address]Dr. Flaco Lawrence WBC 5.8 103/ul Normal 4.0-11.0 [facility] Comment on above: Performed By: #### C BC ####[facility] Mxfxwjwpkp[address] [place], [place] [address]Dr. Flaco Lawrence CULTURE BLOODon 02-08-2023 Microscopic examination of blood, culture Culture Observations: NO GROWTH AT 36-48 HOURS. FINAL TO FOLLOW. Normal [facility] Comment on above: Performed By: #### B LDCX1 ####[facility] Ikpskhwaug157[address] [place], [place] [address]Dr. Flaco Lawrence ER URINE PROFILEon 3 Bilirubin Ql (U) Negative Normal NEGATIVE [facility] Comment on above: Performed By: #### E RUR ####[facility] Joqgujiibd28[address] [place], [place] [address]Dr. Flaco Lawrence Clarity (U) CLEAR Normal CLEAR [facility] Comment on above: Performed By: #### E RUR ####[facility] Sbpcstrzyc8956 [place] [address]Dr. Flaco Lawrence Color (U) YELLOW Normal YELLOW [facility] Comment on above: Performed By: #### E RUR ####[facility] Nzxnjniylb8[address] [place], [place] [address]Dr. Flaco Lawrence ERUAHD A micrscopic examination will be performed if indicated. Normal [facility] Comment on above: Performed By: #### E RUR ####[facility] Ynfeguxwvm325[address] [place], [place] [address]Dr. Flaco Lawrence Glucose Ql (U) Negative Normal NEGATIVE [facility] Comment on above: Performed By: #### E RUR ####[facility] Rnssajawbz2223[address] [place], [place] [address]Dr. Flaco Lawrence Hemoglobin Ql (U) Negative Normal NEGATIVE [facility] Comment on above: Performed By: #### E RUR ####[facility] Ctriuerlzh355[address] [place], [place] [address]Dr. Flaco Lawrence Ketones Ql (U) 15 mg/dl Abnormal NEGATIVE [facility] Comment on above: Performed By: #### E RUR ####[facility] Xuewkzkvle86[address] [place], [place] [address]Dr. Flaco Lawrence LEUKOCYTES Negative Normal NEGATIVE [facility] Comment on above: Performed By: #### E RUR ####[facility] Svlgcbvpwx312[address] [place], [place] [address]Dr. Flaco Lawrence Nitrite Ql (U) Negative Normal NEGATIVE [facility] Comment on above: Performed By: #### E RUR ####[facility] Uyxovgeivq612[address] [place], [place] [address]Dr. Flaco Lawrence pH (U) 6.5 [pH] Normal 5-9 [facility] Comment on above: Performed By: #### E RUR ####[facility] Wenplvzeyp99[address] [place], [place] [address]Dr. Flaco Lawrence SPEC GRAVITY 1.010 Normal 1.005-<=1.02 5 [facility] Comment on above: Performed By: #### E RUR ####[facility] Jlabnqtryo3231 [place] [address]Dr. Flaco Lawrence UA PROTEIN Negative Normal NEGATIVE/ TRACE [facility] Comment on above: Performed By: #### E RUR ####[facility] Tzktvfpork1860 [place] [address]Dr. Flaco Lawrence UR MICRO IND NOT INDICATED Normal [facility] Comment on above: Performed By: #### E RUR ####[facility] Juyyawwjie9916 [place] [address]Dr. Flcao Lawrence Urobilinogen Qn (U) 2.0 {Tuan'U}/dL Abnormal 0.2 - 1. 0 [facility] Comment on above: Performed By: #### E RUR ####[facility] Bzbaevpuhc[address] [place], [place] [address]Dr. Flaco Lawrence LIPASEon 02-08-2023 Lipase [Catalytic activity/Vol] 280.0 U/L Normal 73.0-393.0 [facility] Comment on above: Performed By: #### A MY, LIPA, CMP ####[facility] Shorqopqsh[address] [place], [place] [address]Dr. Flaco Lawrence PROF 14(COMP METB)on 023 Albumin [Mass/Vol] 3.5 g/dL Normal 3.4-5.0 [facility] Comment on above: Performed By: #### A MY, LIPA, CMP ####[facility] Gardkdxvee27[address] [place], [place] [address]Dr. Flaco Lawrence Albumin/Globulin [Mass ratio] 1.2 {ratio} Normal [facility] Comment on above: Performed By: #### A MY, LIPA, CMP ####[facility] Razahbtuqd0728 [place] [address]Dr. Flaco Lawrence ALP [Catalytic activity/Vol] 81 U/L Normal 46-116 [facility] Comment on above: Performed By: #### A MY, LIPA, CMP ####[facility] Uewtmrylps9197 [place] [address]Dr. Flaco Lwarence ALT [Catalytic activity/Vol] 7 U/L Critically low 16-63 [facility] Comment on above: Performed By: #### A MY LIPA, CMP ####[facility] Znrfxrdsse4834 [place] [address]Dr. Flaco Lawrence Anion gap [Moles/Vol] 10.3 mmol/L Normal Th [facility] Comment on above: Performed By: #### A MY, LIPA, CMP ####[facility] Okwruooplm8737 [place] [address]Dr. Flaco Lawrence AST [Catalytic activity/Vol] 20 U/L Normal 15-37 [facility] Comment on above: Performed By: #### A MY LIPA, CMP ####[facility] Nlvytjqedz2098 [place] [address]Dr. Flaco Lawrence Bilirubin [Mass/Vol] 3.1 mg/dL Critically high 0.2-1.0 [facility] Comment on above: Performed By: #### A MY LIPA, CMP ####[facility] Vimcbdxmzt347[address] [place], [place] [address]Dr. Flaco Lawrence Calcium [Mass/Vol] 8.7 mg/dL Normal 8.5-10.1 [facility] Comment on above: Performed By: #### A MY LIPA, CMP ####[facility] Odzawionke74[address] [place], [place] [address]Dr. Flaco Lawrence Chloride [Moles/Vol] 103 mmol/L Normal 98-107 [facility] Comment on above: Performed By: #### A MY, LIPA, CMP ####[facility] Wnqctyjeyr[address] [place], [place] [address]Dr. Flaco Lawrence CO2 [Moles/Vol] 30.5 mmol/L Normal 21.0-32.0 [facility] Comment on above: Performed By: #### A MY, LIPA, CMP ####[facility] Seooiaisos7259 [place] [address]Dr. Flaco Lawrence Creatinine [Mass/Vol] 1.81 mg/dL Critically high 0.70-1.30 [facility] Comment on above: Performed By: #### A MY, LIPA, CMP ####[facility] Lbwmdpuoeb7572 [place] [address]Dr. Flaco Lawrence EGFR-AF PANAMANIAN 45 mL/min/1.73m2 Critically low >=60 [facility] Comment on above: Performed By: #### A MY LIPA, CMP ####[facility] Bepzqwjaeh2201 [place] [address]Dr. Flaco Lawrence EGFR-NON AF PANAMANIAN 37 mL/min/1.73m2 Critically low >=60 [facility] Comment on above: Performed By: #### A MY LIPA, CMP ####[facility] Hefwxdfmhy5687 [place] [address]Dr. Flaco Lawrence Globulin (S) [Mass/Vol] 3.0 g/dL Normal [facility] Comment on above: Performed By: #### A MY LIPA, CMP ####[facility] Ncttoeimhp419[address] [place], [place] [address]Dr. Flaco Lawrence Glucose [Mass/Vol] 94 mg/dL Normal 74-106 [facility] Comment on above: Performed By: #### A MY LIPA, CMP ####[facility] Blqtfxfjqg670[address] [place], [place] [address]Dr. Flaco Lawrence Potassium [Moles/Vol] 2.5 mmol/L Critically low 3.5-5.1 [facility] Comment on above: Performed By: #### A MY LIPA, CMP ####[facility] Oulsxhozqs4265[address] [place], [place] [address]Dr. Flaco Lawrence Protein [Mass/Vol] 6.5 g/dL Normal 6.4-8.2 [facility] Comment on above: Performed By: #### A MY, LIPA, CMP ####[facility] Pattwiyteb054[address] [place], [place] [address]Dr. Flaco Lawrence Sodium [Moles/Vol] 133 mmol/L Critically low 136-145 Th [facility] Comment on above: Performed By: #### A MY, LIPA, CMP ####[facility] Qwbvopayqr[address] [place], [place] [address]Dr. Flaco Lawrence Urea nitrogen [Mass/Vol] 10.0 mg/dL Normal 7.0-18.0 [facility] Comment on above: Performed By: #### A DEMOND GU, CMP ####[facility] Cyhzxulnby25[address] [place], [place] [address]Dr. Flaco Lawrence Urea nitrogen/Creatinine [Mass ratio] 5.5 mg/mg Normal [facility] Comment on above: Performed By: #### A DEMOND GU, CMP ####[facility] Dggflbcndn87[address] [place], [place] [address]Dr. Flaco Lawrence PROF CHEM 8 (BAS METB)on Anion gap [Moles/Vol] 16.8 mmol/L Normal [facility] Comment on above: Performed By: #### B MP ####[facility] Lphileqbkv894[address] [place], [place] [address]Dr. Flaco Lawrence Calcium [Mass/Vol] 8.5 mg/dL Normal 8.5-10.1 [facility] Comment on above: Performed By: #### B MP ####[facility] Jfjjznhaxd8817[address] [place], [place] [address]Dr. Flaco Lawrence Chloride [Moles/Vol] 107 mmol/L Normal 98-107 [facility] Comment on above: Performed By: #### B MP ####[facility] Xgotgdcwip6311[address] [place], [place] [address]Dr. Flaco Lawrence CO2 [Moles/Vol] 25.0 mmol/L Normal 21.0-32.0 [facility] Comment on above: Performed By: #### B MP ####[facility] Nlfhpvoyky01[address] [place], [place] [address]Dr. Flaco Lawrence Creatinine [Mass/Vol] 1.62 mg/dL Critically high 0.70-1.30 [facility] Comment on above: Performed By: #### B MP ####[facility] Hvykbgzadm468[address] [place], [place] [address]Dr. Flaco Lawrence EGFR-AF PANAMANIAN 51 mL/min/1.73m2 Critically low >=60 [facility] Comment on above: Performed By: #### B MP ####[facility] Olothdcvmo0720 [place] [address]Dr. Flaco Lawrence EGFR-NON AF PANAMANIAN 42 mL/min/1.73m2 Critically low >=60 [facility] Comment on above: Performed By: #### B MP ####[facility] Ozhnyesswn8274 [place] [address]Dr. Flaco Lawrence Glucose [Mass/Vol] 73 mg/dL Critically low 74-106 Th [facility] Comment on above: Performed By: #### B MP ####[facility] Epscwjhtog2190 [place] [address]Dr. Flaco Lawrence Potassium [Moles/Vol] 3.8 mmol/L Normal 3.5-5.1 [facility] Comment on above: Performed By: #### B MP ####[facility] Nhzbosttyi201[address] [place], [place] [address]Dr. Flaco Lawrence Sodium [Moles/Vol] 145 mmol/L Normal 136-145 [facility] Comment on above: Performed By: #### B MP ####[facility] Xxnvivonmt11[address] [place], [place] [address]Dr. Flaco Branden Urea nitrogen [Mass/Vol] 10.0 mg/dL Normal 7.0-18.0 [facility] Comment on above: Performed By: #### B MP ####[facility] Kgifecndcc17[address] [place], [place] [address]Dr. Flaco Branden Urea nitrogen/Creatinine [Mass ratio] 6.2 mg/mg Normal [facility] Comment on above: Performed By: #### B MP ####[facility] Yhsxbubwyw64[address] [place], [place] [address]Dr. Flaco Branden XR CHEST 1 Von 02-08-2023 XR CHEST 1 V Normal [facility] XR FOOT RT MIN 3 VIEWSon XR FOOT RT MIN 3 VIEWS Normal [facility] CBC AUTO DIFFon 11-18-2022 BASO # 0.1 103/ul Normal 0.0-0.1 [facility] Comment on above: Performed By: #### C BC ####[facility] Vqinixafdd035[address] [place], [place] [address]Dr. Flaco Lawrence Basophils/100 WBC (Bld) 0.6 % Normal 0.2-2.0 [facility] Comment on above: Performed By: #### C BC ####[facility] Tehxqnwrcj5005 [place] [address]Dr. Flaco Lawrence EO # 0.2 103/ul Normal 0.0-0.7 [facility] Comment on above: Performed By: #### C BC ####[facility] Znttjafkee8526 [place] [address]Dr. Flaco Lawrence Eosinophils/100 WBC (Bld) 1.5 % Normal 0.9-7.0 [facility] Comment on above: Performed By: #### C BC ####[facility] Plbyaonlhf[address] [place], [place] [address]Dr. Flaco Lawrence Erythrocyte distribution width (RBC) [Ratio] 16.2 % Critically high 11.0-15.0 [facility] Comment on above: Performed By: #### C BC ####[facility] Frzswsanie[address] [place], [place] [address]Dr. Flaco Lawrence Hematocrit (Bld) [Volume fraction] 35.1 % Critically low 42.0-54.0 [facility] Comment on above: Performed By: #### C BC ####[facility] Qvjuamvfhw778[address] [place], [place] [address]Dr. Flaco Lawrence Hemoglobin (Bld) [Mass/Vol] 11.5 g/dL Critically low 14.0-18.0 [facility] Comment on above: Performed By: #### C BC ####[facility] Lzsaxtnkey[address] [place], [place] [address]Dr. Flaco Lawrence IG # 0.05 10e3/ul Critically high 0.00-0.03 [facility] Comment on above: Performed By: #### C BC ####[facility] Pdiiudjtzd7[address] [place], [place] [address]Dr. Flaco Lawrence IG % 0.5 % Normal 0.0-0.5 [facility] Comment on above: Performed By: #### C BC ####[facility] Rzdtfollaj2375 [place] [id number]. Flaco Branden LYMPH # 2.1 103/ul Normal 1.2-3.8 [facility] Comment on above: Performed By: #### C BC ####[facility] Zaxskduhpv0737 [place] [id number]. Purviedith Lawrence Lymphocytes/100 WBC (Bld) 20.5 % Normal 20.5-60.0 [facility] Comment on above: Performed By: #### C BC ####[facility] Phorzhhyoa8[address] [place] [address]Dr. Purviedith Lawrence MANUAL DIFF REQ NO Normal [facility] Comment on above: Performed By: #### C BC ####[facility] Irhohvidwe4419 [place] [address]Dr. Flaco Branden MCH (RBC) [Entitic mass] 28.1 pg Normal 25.9-34.0 [facility] Comment on above: Performed By: #### C BC ####[facility] Biadlyemor9[address] [place], [place] [address]Dr. Flaco Branden MCHC (RBC) [Mass/Vol] 32.8 g/dL Normal 29.9-35.2 [facility] Comment on above: Performed By: #### C BC ####[facility] Qinqpqkwfx4743 [place] [address]Dr. Flaco Lawrence MCV (RBC) [Entitic vol] 85.8 fL Normal 80.0-94.0 [facility] Comment on above: Performed By: #### C BC ####[facility] Zrotuikhcs8827 [place] [address]Dr. Flaco Lawrence MONO # 1.2 103/ul Critically high 0.3-0.8 [facility] Comment on above: Performed By: #### C BC ####[facility] Gejmrnddhv8953 [place] [address]Dr. Flaco Lawrence Monocytes/100 WBC (Bld) 11.5 % Normal 1.7-12.0 [facility] Comment on above: Performed By: #### C BC ####[facility] Phncjeiftv3795 [place] [id number]. Flaco Lawrence NEUT # 6.5 103/ul Normal 1.4-6.5 [facility] Comment on above: Performed By: #### C BC ####[facility] Vyaclcpdvy7185 [place] [address]Dr. Flaco Lawrence Neutrophils/100 WBC (Bld) 65.4 % Normal 43.0-75.0 [facility] Comment on above: Performed By: #### C BC ####[facility] Ngkaizwdzq2207 [place] [address]Dr. Flaco Branden Platelet mean volume (Bld) [Entitic vol] 10.3 fL Normal 9.5-13.5 [facility] Comment on above: Performed By: #### C BC ####[facility] Kuvacogsda[address] [place], [place] [address]Dr. Flaco Branden PLT 399 103/ul Normal 150-450 [facility] Comment on above: Performed By: #### C BC ####[facility] Achtjrufls[address] [place], [place] [address]Dr. Flaco Branden RBC 4.09 106/ul Critically low 4.70-6.10 [facility] Comment on above: Performed By: #### C BC ####[facility] Lecdmouivv363[address] [place], [place] [address]Dr. Flaco Branden WBC 10.0 103/ul Normal 4.0-11.0 [facility] Comment on above: Performed By: #### C BC ####[facility] Wiyjdgqrrj5140 [place] [address]Dr. Flaco Lawrence PROF 14(COMP METB)on 023 Albumin [Mass/Vol] 2.4 g/dL Critically low 3.4-5.0 [facility] Comment on above: Performed By: #### C MP ####[facility] Jtlibzqvvx1034 [place] [address]Dr. Flaco Lawrence Albumin/Globulin [Mass ratio] 0.6 {ratio} Normal [facility] Comment on above: Performed By: #### C MP ####[facility] Oauizgqpiw1937 [place] [address]Dr. Flaco Lawernce ALP [Catalytic activity/Vol] 130 U/L Critically high 46-116 [facility] Comment on above: Performed By: #### C MP ####[facility] Ofsavruolz75[address] [place], [place] [address]Dr. Flaco Lawrence ALT [Catalytic activity/Vol] 12 U/L Critically low 16-63 [facility] Comment on above: Performed By: #### C MP ####[facility] Byxjhioulw033[address] [place], [place] [address]Dr. Flaco Lawrence Anion gap [Moles/Vol] 13.6 mmol/L Normal Th [facility] Comment on above: Performed By: #### C MP ####[facility] Hcvwyvnoxc8940[address] [place], [place] [address]Dr. Flaco Lawrence AST [Catalytic activity/Vol] 27 U/L Normal 15-37 [facility] Comment on above: Performed By: #### C MP ####[facility] Jqjsvfneom2213[address] [place], [place] [address]Dr. Flaco Lawrence Bilirubin [Mass/Vol] 0.5 mg/dL Normal 0.2-1.0 [facility] Comment on above: Performed By: #### C MP ####[facility] Rmhlcqtwlr8[address] [place], [place] [address]Dr. Flaco Lawrence Calcium [Mass/Vol] 9.2 mg/dL Normal 8.5-10.1 [facility] Comment on above: Performed By: #### C MP ####[facility] Wjwlyfbard54[address] [place], [place] [address]Dr. Flaco Lawrence Chloride [Moles/Vol] 98 mmol/L Normal 98-107 [facility] Comment on above: Performed By: #### C MP ####[facility] Ehmhclkxff6615[address] [place], [place] [address]Dr. Flaco Lawrence CO2 [Moles/Vol] 24.0 mmol/L Normal 21.0-32.0 [facility] Comment on above: Performed By: #### C MP ####[facility] Qspwxbkcaz142248 [address] [place], [place] [address]Dr. Purviedith Lawrence Creatinine [Mass/Vol] 1.67 mg/dL Critically high 0.70-1.30 [facility] Comment on above: Performed By: #### C MP ####[facility] Mfbmhkpyia0515 [place] [address]Dr. Flaco Lawrence EGFR-AF PANAMANIAN 49 mL/min/1.73m2 Critically low >=60 [facility] Comment on above: Performed By: #### C MP ####[facility] Obexhwnvbc9281 [place] [address]Dr. Purviedith Branden EGFR-NON AF PANAMANIAN 41 mL/min/1.73m2 Critically low >=60 [facility] Comment on above: Performed By: #### C MP ####[facility] Zhfczdwifk7381 [place] [address]Dr. Flaco Lawrence Globulin (S) [Mass/Vol] 4.3 g/dL Normal [facility] Comment on above: Performed By: #### C MP ####[facility] Cksnaqrfyq23[address] [place], [place] [address]Dr. Flaco Lawrence Glucose [Mass/Vol] 103 mg/dL Normal 74-106 [facility] Comment on above: Performed By: #### C MP ####[facility] Bxvtlufinw495[address] [place], [place] [address]Dr. Flaco Lawrence Potassium [Moles/Vol] 3.6 mmol/L Normal 3.5-5.1 [facility] Comment on above: Performed By: #### C MP ####[facility] Litubkvvyq5876 [place] [address]Dr. Flaco Lawrence Protein [Mass/Vol] 6.7 g/dL Normal 6.4-8.2 [facility] Comment on above: Performed By: #### C MP ####[facility] Vbiuzlqxkp3653 [place] [address]Dr. Flaco Lawrence Sodium [Moles/Vol] 132 mmol/L Critically low 136-145 Th [facility] Comment on above: Performed By: #### C MP ####[facility] Adnmmgedyf2635 [place] [address]Dr. Flaco Lawrence Urea nitrogen [Mass/Vol] 26.0 mg/dL Critically high 7.0-18.0 [facility] Comment on above: Performed By: #### C MP ####[facility] Xicburywxt6869 [place] [address]Dr. Flaco Branden Urea nitrogen/Creatinine [Mass ratio] 15.6 mg/mg Normal [facility] Comment on above: Performed By: #### C MP ####[facility] Pokigrkkhi9316 [place] [address]Dr. Flaco Branden CBC AUTO DIFFon 11-17-2022 BASO # 0.0 103/ul Normal 0.0-0.1 [facility] Comment on above: Performed By: #### C BC ####[facility] Phbmxtljtd04[address] [place], [place] [address]Dr. Purviedith Lawrence Basophils/100 WBC (Bld) 0.4 % Normal 0.2-2.0 [facility] Comment on above: Performed By: #### C BC ####[facility] Lnoowyjyok64[address] [place], [place] [address]Dr. Flaco Branden EO # 0.0 103/ul Normal 0.0-0.7 [facility] Comment on above: Performed By: #### C BC ####[facility] Ngpmsjbdxm4201[address] [place], [place] [address]Dr. Flaco Branden Eosinophils/100 WBC (Bld) 0.4 % Critically low 0.9-7.0 [facility] Comment on above: Performed By: #### C BC ####[facility] Jfjpdqsoab8760[address] [place], [place] [address]Dr. Flaco Lawrence Erythrocyte distribution width (RBC) [Ratio] 16.0 % Critically high 11.0-15.0 [facility] Comment on above: Performed By: #### C BC ####[facility] Rabyftagof157[address] [place], [place] [address]Dr. Flaco Branden Hematocrit (Bld) [Volume fraction] 36.4 % Critically low 42.0-54.0 [facility] Comment on above: Performed By: #### C BC ####[facility] Tjgebbdmis0643 [place] [id number]. Flaco Lawrence Hemoglobin (Bld) [Mass/Vol] 12.0 g/dL Critically low 14.0-18.0 [facility] Comment on above: Performed By: #### C BC ####[facility] Gbwutjlgze3929 [place] [id number]. Flaco Lawrence IG # 0.03 10e3/ul Normal 0.00-0.03 [facility] Comment on above: Performed By: #### C BC ####[facility] Miybbzusyk9124 [place] [address]Dr. Flaco Lawrence IG % 0.3 % Normal 0.0-0.5 [facility] Comment on above: Performed By: #### C BC ####[facility] Eynpxoltbm1460 [place] [address]Dr. Flaco Lawrence LYMPH # 1.6 103/ul Normal 1.2-3.8 [facility] Comment on above: Performed By: #### C BC ####[facility] Prbwidfgbu[address] [place], [place] [address]Dr. Flaco Lawrence Lymphocytes/100 WBC (Bld) 14.7 % Critically low 20.5-60.0 [facility] Comment on above: Performed By: #### C BC ####[facility] Hoiwpmulvu9427 [place] [address]Dr. Flaco Lawrence MANUAL DIFF REQ NO Normal [facility] Comment on above: Performed By: #### C BC ####[facility] Ubrmrplzzx50[address] [place], [place] [address]Dr. Flaco Lawrence MCH (RBC) [Entitic mass] 28.2 pg Normal 25.9-34.0 [facility] Comment on above: Performed By: #### C BC ####[facility] Dpgjenctft65[address] [place], [place] [address]Dr. Flaco Lawrence MCHC (RBC) [Mass/Vol] 33.0 g/dL Normal 29.9-35.2 [facility] Comment on above: Performed By: #### C BC ####[facility] Prnugotpep3515 [place] [id number]. Flaco Lawrence MCV (RBC) [Entitic vol] 85.4 fL Normal 80.0-94.0 [facility] Comment on above: Performed By: #### C BC ####[facility] Onhktelcsi0580 [place] [id number]. Flaco Lawrence MONO # 1.4 103/ul Critically high 0.3-0.8 [facility] Comment on above: Performed By: #### C BC ####[facility] Cyllwoshyo6665 [place] [id number]. Flaco Lawrence Monocytes/100 WBC (Bld) 12.6 % Critically high 1.7-12.0 [facility] Comment on above: Performed By: #### C BC ####[facility] Tqoshiwzpc4754 [place] [id number]. Flaco Lawrence NEUT # 7.7 103/ul Critically high 1.4-6.5 [facility] Comment on above: Performed By: #### C BC ####[facility] Dfreoycwpb4691 [place] [id number]. Flaco Lawrence Neutrophils/100 WBC (Bld) 71.6 % Normal 43.0-75.0 [facility] Comment on above: Performed By: #### C BC ####[facility] Voyemgqyqt4643 [place] [id number]. Flaco Lawrence Platelet mean volume (Bld) [Entitic vol] 9.5 fL Normal 9.5-13.5 [facility] Comment on above: Performed By: #### C BC ####[facility] Jhnitymmeq7420 [place] [id number]. Flaco Lawrence PLT 462 103/ul Critically high 150-450 [facility] Comment on above: Performed By: #### C BC ####[facility] Cehkklzluf[address] [place], [place] [address]Dr. Flaco Lawrence RBC 4.26 106/ul Critically low 4.70-6.10 [facility] Comment on above: Performed By: #### C BC ####[facility] Pvoupoihhf5791 [place] [address]Dr. Flaco Lawrence WBC 10.8 103/ul Normal 4.0-11.0 [facility] Comment on above: Performed By: #### C BC ####[facility] Mljrzzahoa7866 [place] [address]Dr. Flaco Lawrence MRI CSPINE WO CONon 11-17-19 23 MRI CSPINE WO CON Normal [facility] PROF 14(COMP METB)on 023 Albumin [Mass/Vol] 2.4 g/dL Critically low 3.4-5.0 [facility] Comment on above: Performed By: #### C MP ####[facility] Grpxbtrhav5410 [place] [address]Dr. Flaco Lawrence Albumin/Globulin [Mass ratio] 0.5 {ratio} Normal [facility] Comment on above: Performed By: #### C MP ####[facility] Fafanpqwpb8314 [place] [address]Dr. Flaco Lawrence ALP [Catalytic activity/Vol] 132 U/L Critically high 46-116 [facility] Comment on above: Performed By: #### C MP ####[facility] Ydnytnexjc09[address] [place], [place] [address]Dr. Flaco Lawrence ALT [Catalytic activity/Vol] 18 U/L Normal 16-63 [facility] Comment on above: Performed By: #### C MP ####[facility] Bhqtqhejbb0832 [place] [address]Dr. Flaco Lawrence Anion gap [Moles/Vol] 15.7 mmol/L Normal Th [facility] Comment on above: Performed By: #### C MP ####[facility] Uxewammxgs4544 [place] [address]Dr. Flaco Lawrence AST [Catalytic activity/Vol] 26 U/L Normal 15-37 [facility] Comment on above: Performed By: #### C MP ####[facility] Rjgkwejkzl7676 [place] [address]Dr. Flaco Lawrence Bilirubin [Mass/Vol] 0.5 mg/dL Normal 0.2-1.0 [facility] Comment on above: Performed By: #### C MP ####[facility] Qxunpjswnc6645 [place] [id number]. Flaco Lawrence Calcium [Mass/Vol] 9.2 mg/dL Normal 8.5-10.1 [facility] Comment on above: Performed By: #### C MP ####[facility] Hiwjupqpqh6394 [place] [id number]. Flaco Lawrence Chloride [Moles/Vol] 99 mmol/L Normal 98-107 [facility] Comment on above: Performed By: #### C MP ####[facility] Srwitftvif4777 [place] [address]Dr. Flaco Lawrence CO2 [Moles/Vol] 23.9 mmol/L Normal 21.0-32.0 [facility] Comment on above: Performed By: #### C MP ####[facility] Rwstnqnwhe9[address] [place], [place] [address]Dr. Flaco Branden Creatinine [Mass/Vol] 1.65 mg/dL Critically high 0.70-1.30 [facility] Comment on above: Performed By: #### C MP ####[facility] Shtabkgbqr030[address] [place], [place] [address]Dr. Flaco Branden EGFR-AF PANAMANIAN 50 mL/min/1.73m2 Critically low >=60 [facility] Comment on above: Performed By: #### C MP ####[facility] Tnuhxgguvh[address] [place], [place] [address]Dr. Flaco Branden EGFR-NON AF PANAMANIAN 41 mL/min/1.73m2 Critically low >=60 [facility] Comment on above: Performed By: #### C MP ####[facility] Cngnzwedio1424[address] [place], [place] [address]Dr. Purviedith Branden Globulin (S) [Mass/Vol] 4.5 g/dL Normal [facility] Comment on above: Performed By: #### C MP ####[facility] Wpmpzddltf9311 [place] [id number]. Flaco Lawrence Glucose [Mass/Vol] 116 mg/dL Critically high 74-106 [facility] Comment on above: Performed By: #### C MP ####[facility] Tjnmxybvcs4947 [place] [address]Dr. Flaco Lawrence Potassium [Moles/Vol] 3.6 mmol/L Normal 3.5-5.1 [facility] Comment on above: Performed By: #### C MP ####[facility] Auduxyudty2715 [place] [address]Dr. Flaco Lawrence Protein [Mass/Vol] 6.9 g/dL Normal 6.4-8.2 [facility] Comment on above: Performed By: #### C MP ####[facility] Slwkcritig0934 [place] [address]Dr. Flaco Lawrence Sodium [Moles/Vol] 135 mmol/L Critically low 136-145 Th [facility] Comment on above: Performed By: #### C MP ####[facility] Wbkzqzsvlk996[address] [place], [place] [address]Dr. Flaco Lawrence Urea nitrogen [Mass/Vol] 21.0 mg/dL Critically high 7.0-18.0 [facility] Comment on above: Performed By: #### C MP ####[facility] Rpuzjlvpca480[address] [place], [place] [address]Dr. Flaco Lawrence Urea nitrogen/Creatinine [Mass ratio] 12.7 mg/mg Normal [facility] Comment on above: Performed By: #### C MP ####[facility] Ekamqpnbos99[address] [place], [place] [address]Dr. Flaco Lawrence CBC W MANUAL DIFFon 11-16-19 23 ATYPICAL LYMPH # Normal [facility] Comment on above: Performed By: #### C BCMAN ####[facility] Acgzegtiqj359[address] [place], [place] [address]Dr. Flaco Lawrence ATYPICAL LYMPH % Normal [facility] Comment on above: Performed By: #### C BCMAN ####[facility] Fhmwfaxggm7141 [place] [address]Dr. Flaco Lawrence BAND # 0.0 103/ul Normal 0.0-0.3 [facility] Comment on above: Performed By: #### C BCMAN ####[facility] Pzdmlrlzkl1957 [place] [id number]. Flaco Lawrence BAND % 0 % Normal 0-5 [facility] Comment on above: Performed By: #### C BCMAN ####[facility] Mjbfrezflg4865 [place] [id number]. Yiedith Lawrence BASOM # 0.00 103/ul Normal 0.00-0.10 [facility] Comment on above: Performed By: #### C BCMAN ####[facility] Yhmoqshfst5830 [place] [id number]. Yiedith Lawrence BASOM % 0.0 % Critically low 0.2-2.0 [facility] Comment on above: Performed By: #### C BCMAN ####[facility] Pmzchnqnwx3000 [place] [address]Dr. Yiedith Lawrence BLAST # Normal [facility] Comment on above: Performed By: #### C BCGAYATHRI ####[facility] Ucxqwkdxmz2504 [place] [address]Dr. Yiedith Lawrence BLAST % Normal [facility] Comment on above: Performed By: #### C BCGAYATHRI ####[facility] Nyoydknemx0546 [place] [address]Dr. Flaco Lawrence CORRECTED WBC Normal 4.0-11.0 [facility] Comment on above: Performed By: #### C BCMAN ####[facility] Kvjnyzqjzs8862 [place] [address]Dr. Yiedith Lawrence EOS # 0.00 103/ul Normal 0.00-0.70 [facility] Comment on above: Performed By: #### C BCMAN ####[facility] Ejwikchwlx6790 [place] [address]Dr. Flaco Lawrence EOS% 0.0 % Critically low 0.9-7.0 [facility] Comment on above: Performed By: #### C BCMAN ####[facility] Mgoflxrxqy1050 [place] [address]Dr. Flaco Lawrence HCT 35.9 % Critically low 42.0-54.0 [facility] Comment on above: Performed By: #### C C[place] ####[facility] Tupzxoczte7583 [place], [place] [address]Dh. Flaco Lawrence HGB 12.0 g/dl Critically low 14.0-18.0 [facility] Comment on above: Performed By: #### C C[place] ####[facility] Gwpwgdbubg0975 [place], [place] [address]Mw. Flaco Lawrence LYMPHM # 1.42 103/ul Normal 1.20-3.80 [facility] Comment on above: Performed By: #### C C[place] ####[facility] Gxjsecviuk8641 [place], [place] [address]Aa. Flaco Lawrence LYMPHM% 11.0 % Critically low 20.5-60.0 [facility] Comment on above: Performed By: #### C [place] ####[facility] Rakesfbufh4339 [place] [id number]. Flaco Lawrence MCH 28.6 pg Normal 25.9-34.0 [facility] Comment on above: Performed By: #### C C[place] ####[facility] Bhrerqeywv1913 [place], [place] [address]Yc. Flaco Lawrence MCHC 33.4 g/dl Normal 29.9-35.2 [facility] Comment on above: Performed By: #### C C[place] ####[facility] Txmvwmqtxz7042 [place], [place] [address]Ub. Flaco Lawrence MCV 85.5 fL Normal 80.0-94.0 [facility] Comment on above: Performed By: #### C [place] ####[facility] Vlbxztbyny9996 [place], [place] [address]Lp. Flaco Lawrence METAMYELOCYTE # Normal [facility] Comment on above: Performed By: #### C C[place] ####[facility] Gnyjyoukkf4514 [place], [place] [address]Za. Flaco Lawrence METAMYELOCYTE % Normal [facility] Comment on above: Performed By: #### C C[place] ####[facility] Qwlzvevawx6449 [place] [id number]. Flaco Lawrence MONOM# 1.42 103/ul Critically high 0.30-0.80 [facility] Comment on above: Performed By: #### C C[place] ####[facility] Krsnfpxynq1362 [place] [id number]. Flaco Lawrence MONOM% 11.0 % Normal 1.7-12.0 [facility] Comment on above: Performed By: #### C [place] ####[facility] Tdvyagmels5541 [place] [id number]. Flaco Lawrence MPV 9.5 fL Normal 9.5-13.5 [facility] Comment on above: Performed By: #### C [place] ####[facility] Zfafwwkmtw0685 [place] [address]Dr. Flaco Lawrence MYELOCYTE # Normal [facility] Comment on above: Performed By: #### C [place] ####[facility] Aniolksubf4775 [place] [id number]. Flaco Lawrence MYELOCYTE % Normal [facility] Comment on above: Performed By: #### C C[place] ####[facility] Paupcqzrgj4563 [place] [address]Dr. Flaco Lawrence NRBC Normal [facility] Comment on above: Performed By: #### C C[place] ####[facility] Sguuuaglrt1892 [place] [id number]. Flaco Lawrence PLT 469 103/ul Critically high 150-450 [facility] Comment on above: Performed By: #### C C[place] ####[facility] Fycjogecdt7694 [place] [id number]. Flaco Lawrence RBC 4.20 106/ul Critically low 4.70-6.10 [facility] Comment on above: Performed By: #### C [place] ####[facility] Eczmzvhprd0635 [place] [id number]. Flaco Lawrence RDW 16.3 % Critically high 11.0-15.0 [facility] Comment on above: Performed By: #### C [place] ####[facility] Otbffayqir9795 [place] [id number]. Flaco Branden SEG # 10.06 103/ul Critically high 1.40-6.50 [facility] Comment on above: Performed By: #### C [place] ####[facility] Mcugllduxn0554 [place] [address]Dr. Flaco Branden SEG % 78.0 % Critically high 43.0-75.0 [facility] Comment on above: Performed By: #### C BCMAN ####[facility] Qqrmiwnvpa9354 [place] [address]Dr. Flaco Lawrence WBC 12.9 103/ul Critically high 4.0-11.0 [facility] Comment on above: Performed By: #### C [place] ####[facility] Pyhusuoxlj3348 [place] [address]Dr. Flaco Lawrence PROF 14(COMP METB)on 023 Albumin [Mass/Vol] 2.5 g/dL Critically low 3.4-5.0 [facility] Comment on above: Performed By: #### C MP ####[facility] Msyslviptv9059 [place] [address]Dr. Flaco Lawrence Albumin/Globulin [Mass ratio] 0.6 {ratio} Normal [facility] Comment on above: Performed By: #### C MP ####[facility] Wqlwrigfit0205 [place] [address]Dr. Flaco Lawrence ALP [Catalytic activity/Vol] 118 U/L Critically high 46-116 [facility] Comment on above: Performed By: #### C MP ####[facility] Fxuqfyweuo3161 [place] [address]Dr. Flaco Lawrence ALT [Catalytic activity/Vol] 12 U/L Critically low 16-63 [facility] Comment on above: Performed By: #### C MP ####[facility] [address] [place] [address]Dr. Flaco Lawrence Anion gap [Moles/Vol] 15.8 mmol/L Normal [facility] Comment on above: Performed By: #### C MP ####[facility] Epmbghwmws225[address] [place] [id number]. Flaco Lawrence AST [Catalytic activity/Vol] 22 U/L Normal 15-37 [facility] Comment on above: Performed By: #### C MP ####[facility] Lssqhkhfzk6534 [place] [id number]. Flaco Lawrence Bilirubin [Mass/Vol] 0.8 mg/dL Normal 0.2-1.0 [facility] Comment on above: Performed By: #### C MP ####[facility] Ylysiryjza77[address] [place] [id number]. Flaco Lawrence Calcium [Mass/Vol] 8.9 mg/dL Normal 8.5-10.1 [facility] Comment on above: Performed By: #### C MP ####[facility] Ybuctytfos8765 [place] [id number]. Flaco Lawrence Chloride [Moles/Vol] 97 mmol/L Critically low 98-107 [facility] Comment on above: Performed By: #### C MP ####[facility] Zmurmguohy6313 [place] [id number]. Flaco Lawrence CO2 [Moles/Vol] 22.8 mmol/L Normal 21.0-32.0 The [facility] Comment on above: Performed By: #### C MP ####[facility] Qicyisllke4906 [place] [id number]. Flaco Lawrence Creatinine [Mass/Vol] 1.64 mg/dL Critically high 0.70-1.30 [facility] Comment on above: Performed By: #### C MP ####[facility] Ptpebxfcbk0197 [place] [id number]. Flaco Lawrence EGFR-AF PANAMANIAN 50 mL/min/1.73m2 Critically low >=60 [facility] Comment on above: Performed By: #### C MP ####[facility] Jitqvoorvv3316 [place] [id number]. Flaco Lawrence EGFR-NON AF PANAMANIAN 42 mL/min/1.73m2 Critically low >=60 [facility] Comment on above: Performed By: #### C MP ####[facility] Llpylpccev1449 [place] [id number]. Flaco Lawrence Globulin (S) [Mass/Vol] 4.2 g/dL Normal [facility] Comment on above: Performed By: #### C MP ####[facility] Dsgqveevwp1264 [place] [address]Dr. Flaco Lawrence Glucose [Mass/Vol] 110 mg/dL Critically high 74-106 T [facility] Comment on above: Performed By: #### C MP ####[facility] Amwafjwwxy76[address] [place] [address]Dr. Flaco Lawrence Potassium [Moles/Vol] 3.6 mmol/L Normal 3.5-5.1 [facility] Comment on above: Performed By: #### C MP ####[facility] Xossuzewdc6983 [place] [address]Dr. Flaco Lawrence Protein [Mass/Vol] 6.7 g/dL Normal 6.4-8.2 [facility] Comment on above: Performed By: #### C MP ####[facility] Wukddzakmr66[address] [place] [address]Dr. Flaco Lawrence Sodium [Moles/Vol] 132 mmol/L Critically low 136-145 Th [facility] Comment on above: Performed By: #### C MP ####[facility] Fwmxcyuysa26[address] [place] [address]Dr. Flaco Lawrence Urea nitrogen [Mass/Vol] 20.0 mg/dL Critically high 7.0-18.0 [facility] Comment on above: Performed By: #### C MP ####[facility] Pvoevwiesa30[address] [place] [address]Dr. Flaco Lawrence Urea nitrogen/Creatinine [Mass ratio] 12.2 mg/mg Normal [facility] Comment on above: Performed By: #### C MP ####[facility] Pcjgamwutc78[address] [place] [address]Dr. Flaco Lawrence AMMONIAon 11-15-2022 Ammonia (P) [Moles/Vol] 22 umol/L Normal 11-32 [facility] Comment on above: Performed By: #### A MM ####[facility] Zderfexqpy0662 [place] [id number]. Flaco Branden CBC AUTO DIFFon 11-15-2022 BASO # 0.0 103/ul Normal 0.0-0.1 [facility] Comment on above: Performed By: #### C BC ####[facility] Yspchbddli2381 [place] [address]Dr. Purviedith Lawrence Basophils/100 WBC (Bld) 0.3 % Normal 0.2-2.0 [facility] Comment on above: Performed By: #### C BC ####[facility] Gjymuisaft1774 [place] [address]Dr. Purviedith Lawrence EO # 0.0 103/ul Normal 0.0-0.7 [facility] Comment on above: Performed By: #### C BC ####[facility] Eshlwnxbpl[address] [place], [place] [address]Dr. Purviedith Lawrence Eosinophils/100 WBC (Bld) 0.3 % Critically low 0.9-7.0 [facility] Comment on above: Performed By: #### C BC ####[facility] Lyawrmpbsv[address] [place], [place] [address]Dr. Flaco Branden Erythrocyte distribution width (RBC) [Ratio] 16.3 % Critically high 11.0-15.0 [facility] Comment on above: Performed By: #### C BC ####[facility] Xhbeiywlie52[address] [place], [place] [address]Dr. Purviedith Lawrence Hematocrit (Bld) [Volume fraction] 39.2 % Critically low 42.0-54.0 [facility] Comment on above: Performed By: #### C BC ####[facility] Xblrgabgiw9165[address] [place], [place] [address]Dr. Purviedith Lawrence Hemoglobin (Bld) [Mass/Vol] 12.9 g/dL Critically low 14.0-18.0 [facility] Comment on above: Performed By: #### C BC ####[facility] Tjaelomudd[address] [place], [place] [address]Dr. Flaco Lawrence IG # 0.05 10e3/ul Critically high 0.00-0.03 [facility] Comment on above: Performed By: #### C BC ####[facility] Jzridookpt0813 [place] [id number] Purviedith Lawrence IG % 0.4 % Normal 0.0-0.5 [facility] Comment on above: Performed By: #### C BC ####[facility] Aftcjbwoso3762 [place] [id number] Purviedith Lawrence LYMPH # 1.6 103/ul Normal 1.2-3.8 [facility] Comment on above: Performed By: #### C BC ####[facility] Voovwndoxl8247 [place] [id number] Lawrence Lymphocytes/100 WBC (Bld) 12.5 % Critically low 20.5-60.0 [facility] Comment on above: Performed By: #### C BC ####[facility] Ucselmmbus0367 [place] [address]DrJeramie Lawrence MANUAL DIFF REQ NO Normal [facility] Comment on above: Performed By: #### C BC ####[facility] Mchkotudme7180 [place] [id number]. Flaco Branden MCH (RBC) [Entitic mass] 28.7 pg Normal 25.9-34.0 [facility] Comment on above: Performed By: #### C BC ####[facility] Dbvfpqihdm4356 [place] [id number] Flaco Branden MCHC (RBC) [Mass/Vol] 32.9 g/dL Normal 29.9-35.2 [facility] Comment on above: Performed By: #### C BC ####[facility] Zutxeqdwev2344 [place] [id number] Purviedith Lawrence MCV (RBC) [Entitic vol] 87.1 fL Normal 80.0-94.0 [facility] Comment on above: Performed By: #### C BC ####[facility] Rphbzfaewe3049 [place] [id number] Lawrence MONO # 1.4 103/ul Critically high 0.3-0.8 [facility] Comment on above: Performed By: #### C BC ####[facility] Ibstcvlvlo5764 [place] [id number]. Flaco Lawrence Monocytes/100 WBC (Bld) 11.2 % Normal 1.7-12.0 [facility] Comment on above: Performed By: #### C BC ####[facility] Tkidzyekky4261 [place] [id number]. Flaco Lawrence NEUT # 9.4 103/ul Critically high 1.4-6.5 [facility] Comment on above: Performed By: #### C BC ####[facility] Pmsmgoypdb6460 [place] [address]Dr. Flaco Lawrence Neutrophils/100 WBC (Bld) 75.3 % Critically high 43.0-75.0 [facility] Comment on above: Performed By: #### C BC ####[facility] Fcncpxymeh6943 [place] [address]Dr. Flaco Lawrence Platelet mean volume (Bld) [Entitic vol] 9.3 fL Critically low 9.5-13.5 [facility] Comment on above: Performed By: #### C BC ####[facility] Hcnprvwvnv23[address] [place] [address]Dr. Flaco Lawrence PLT 532 103/ul Critically high 150-450 [facility] Comment on above: Performed By: #### C BC ####[facility] Yriinbtdvf6655 [place] [address]Dr. Flaco Lawrence RBC 4.50 106/ul Critically low 4.70-6.10 [facility] Comment on above: Performed By: #### C BC ####[facility] Nzoduhmfcf4603 [place] [id number] Flaco Lawrence WBC 12.5 103/ul Critically high 4.0-11.0 [facility] Comment on above: Performed By: #### C BC ####[facility] Sbrxhrbrfb3850 [place] [address]DrJeramie Lawrence PROF 14(COMP METB)on 023 Albumin [Mass/Vol] 3.0 g/dL Critically low 3.4-5.0 [facility] Comment on above: Performed By: #### C MP ####[facility] Juhvfyoddp0436 [place] [address]Dr. Flaco Branden Albumin/Globulin [Mass ratio] 0.5 {ratio} Normal [facility] Comment on above: Performed By: #### C MP ####[facility] Wefjlghtyh2959 [place] [address]Dr. Flaco Branden ALP [Catalytic activity/Vol] 103 U/L Normal 46-116 [facility] Comment on above: Performed By: #### C MP ####[facility] Aumussatzv97[address] [place], [place] [address]Dr. Flaco Lawrence ALT [Catalytic activity/Vol] 12 U/L Critically low 16-63 [facility] Comment on above: Performed By: #### C MP ####[facility] Wnhrjrbynm5302 [place] [address]Dr. Flaco Lawrence Anion gap [Moles/Vol] 16.8 mmol/L Normal Th [facility] Comment on above: Performed By: #### C MP ####[facility] Kgehhymwgf08[address] [place], [place] [address]Dr. Flaco Branden AST [Catalytic activity/Vol] 16 U/L Normal 15-37 [facility] Comment on above: Performed By: #### C MP ####[facility] Ippchaxefe3[address] [place], [place] [address]Dr. Flaco Lawrence Bilirubin [Mass/Vol] 1.0 mg/dL Normal 0.2-1.0 [facility] Comment on above: Performed By: #### C MP ####[facility] Btqghhkuhf0756 [place] [address]Dr. Flaco Lawrence Calcium [Mass/Vol] 9.8 mg/dL Normal 8.5-10.1 [facility] Comment on above: Performed By: #### C MP ####[facility] Mtohlsqnjg4491 [place] [address]Dr. Flaco Lawrence Chloride [Moles/Vol] 98 mmol/L Normal 98-107 [facility] Comment on above: Performed By: #### C MP ####[facility] Yssujlhtxn5972 [place] [id number]. Flaco Lawrence CO2 [Moles/Vol] 24.3 mmol/L Normal 21.0-32.0 [facility] Comment on above: Performed By: #### C MP ####[facility] Cqzjnwgvrv6294 [place] [id number]. Flaco Branden Creatinine [Mass/Vol] 1.86 mg/dL Critically high 0.70-1.30 [facility] Comment on above: Performed By: #### C MP ####[facility] Knlzrpvdcy0796 [place] [address]Dr. Flaco Branden EGFR-AF PANAMANIAN 44 mL/min/1.73m2 Critically low >=60 [facility] Comment on above: Performed By: #### C MP ####[facility] Ywwbhmpkky9199 [place] [address]Dr. Flaco Branden EGFR-NON AF PANAMANIAN 36 mL/min/1.73m2 Critically low >=60 [facility] Comment on above: Performed By: #### C MP ####[facility] Quwrlmzhzr7454 [place] [address]Dr. Flaco Branden Globulin (S) [Mass/Vol] 5.6 g/dL Normal [facility] Comment on above: Performed By: #### C MP ####[facility] Jlqtnbfvmf7396 [place] [address]Dr. Flaco Lawrence Glucose [Mass/Vol] 108 mg/dL Critically high 74-106 [facility] Comment on above: Performed By: #### C MP ####[facility] Rpsfidkfhh7261 [place] [id number]. Flaco Branden Potassium [Moles/Vol] 4.1 mmol/L Normal 3.5-5.1 [facility] Comment on above: Performed By: #### C MP ####[facility] Wrzfottcua0868 [place] [id number]. Purviedith Lawrence Protein [Mass/Vol] 8.6 g/dL Critically high 6.4-8.2 [facility] Comment on above: Performed By: #### C MP ####[facility] Xubsfmjeiw9738 [place] [address]Dr. Flaco Lawrence Sodium [Moles/Vol] 135 mmol/L Critically low 136-145 Th e [facility] Comment on above: Performed By: #### C MP ####[facility] Kykjgpqodw0714 [place] [address]Dr. Flaco Lawrence Urea nitrogen [Mass/Vol] 18.0 mg/dL Normal 7.0-18.0 [facility] Comment on above: Performed By: #### C MP ####[facility] Aagdkoxzet77[address] [place], [place] [address]Dr. Flaco Lawrence Urea nitrogen/Creatinine [Mass ratio] 9.7 mg/mg Normal [facility] Comment on above: Performed By: #### C MP ####[facility] Oykyftiwmk967[address] [place], [place] [address]Dr. Flaco Lawrence CT HEAD WO CONon 11-14-2022 CT HEAD WO CON Normal [facility] MRI LSPINE WO CONon 11-14-19 MRI LSPINE WO CON Normal [facility] CBC AUTO DIFFon 11-13-2022 BASO # 0.0 103/ul Normal 0.0-0.1 [facility] Comment on above: Performed By: #### C BC ####[facility] Kutjhnmuqz079[address] [place], [place] [address]Dr. Flaco Lawrence Basophils/100 WBC (Bld) 0.4 % Normal 0.2-2.0 [facility] Comment on above: Performed By: #### C BC ####[facility] Phslixkgwx1850 [place] [id number]. Flaco Lawrence EO # 0.1 103/ul Normal 0.0-0.7 [facility] Comment on above: Performed By: #### C BC ####[facility] Ijngwxfvqn1391 [place] [id number]. Flaco Lawrence Eosinophils/100 WBC (Bld) 1.0 % Normal 0.9-7.0 [facility] Comment on above: Performed By: #### C BC ####[facility] Vliwjqxkgd4539 [place] [address]Dr. Flaco Lawrence Erythrocyte distribution width (RBC) [Ratio] 15.9 % Critically high 11.0-15.0 [facility] Comment on above: Performed By: #### C BC ####[facility] Ukcgvaaypr9648 [place] [address]Dr. Flaco Lawrence Hematocrit (Bld) [Volume fraction] 35.9 % Critically low 42.0-54.0 [facility] Comment on above: Performed By: #### C BC ####[facility] Drnnwpsjgo003[address] [place], [place] [address]Dr. Flaco Lawrence Hemoglobin (Bld) [Mass/Vol] 11.9 g/dL Critically low 14.0-18.0 [facility] Comment on above: Performed By: #### C BC ####[facility] Ujgouivalx6[address] [place], [place] [address]Dr. Flaco Lawrence IG # 0.03 10e3/ul Normal 0.00-0.03 [facility] Comment on above: Performed By: #### C BC ####[facility] Zbviuoxjtb575[address] [place], [place] [address]Dr. Flaco Lawrence IG % 0.4 % Normal 0.0-0.5 [facility] Comment on above: Performed By: #### C BC ####[facility] Khnqyddbql59[address] [place], [place] [address]DrJeramie Flaco Lawrence LYMPH # 1.8 103/ul Normal 1.2-3.8 [facility] Comment on above: Performed By: #### C BC ####[facility] Lfvhhmqfyd6218[address] [place], [place] [address]DrJeramie Flaco Lawrence Lymphocytes/100 WBC (Bld) 22.2 % Normal 20.5-60.0 [facility] Comment on above: Performed By: #### C BC ####[facility] Ssfvtdiotp[address] [place], [place] [address]DrJeramie Flaco Lawrence MANUAL DIFF REQ NO Normal [facility] Comment on above: Performed By: #### C BC ####[facility] Zkfbqoguvm9094 [place] [id number]. Flaco Branden MCH (RBC) [Entitic mass] 28.8 pg Normal 25.9-34.0 [facility] Comment on above: Performed By: #### C BC ####[facility] Stghfsuhle7566 [place] [phone]. Flaco Branden MCHC (RBC) [Mass/Vol] 33.1 g/dL Normal 29.9-35.2 [facility] Comment on above: Performed By: #### C BC ####[facility] Sqerjerpee2160 [place] [address]Dr. Flaco Lawrence MCV (RBC) [Entitic vol] 86.9 fL Normal 80.0-94.0 [facility] Comment on above: Performed By: #### C BC ####[facility] Fgrypztsar29[address] [place], [place] [address]Dr. Flaco Lawrence MONO # 1.0 103/ul Critically high 0.3-0.8 [facility] Comment on above: Performed By: #### C BC ####[facility] Fjfusojxdo978[address] [place], [place] [address]Dr. Falco Lawrence Monocytes/100 WBC (Bld) 13.0 % Critically high 1.7-12.0 [facility] Comment on above: Performed By: #### C BC ####[facility] Fbweepvyin0715[address] [place], [place] [address]Dr. Flaco Lawrence NEUT # 5.0 103/ul Normal 1.4-6.5 [facility] Comment on above: Performed By: #### C BC ####[facility] Cvpaapwepc[address] [place], [place] [id number] Lawrence Neutrophils/100 WBC (Bld) 63.0 % Normal 43.0-75.0 [facility] Comment on above: Performed By: #### C BC ####[facility] Qdvlcyxlet12[address] [place], [place] [id number] Lawrence Platelet mean volume (Bld) [Entitic vol] 9.5 fL Normal 9.5-13.5 [facility] Comment on above: Performed By: #### C BC ####[facility] Xanweijkwy4935 [place] [address]Dr. Flaco Lawrence PLT 335 103/ul Normal 150-450 [facility] Comment on above: Performed By: #### C BC ####[facility] Xxeuhifjwp2001 [place] [id number]. Flaco Lawrence RBC 4.13 106/ul Critically low 4.70-6.10 [facility] Comment on above: Performed By: #### C BC ####[facility] Jbwinwlamf7146 [place] [id number]. Flaco Lawrence WBC 7.9 103/ul Normal 4.0-11.0 [facility] Comment on above: Performed By: #### C BC ####[facility] Jqztspysbj6[address] [place], [place] [address]Dr. Flaco Lawrence ER URINE PROFILEon 3 Bilirubin Ql (U) Negative Normal NEGATIVE [facility] Comment on above: Performed By: #### E RUR ####[facility] Ltbzrbjufg89364[address] [place], [place] [address]Dr. Flaco Lawrence Clarity (U) CLEAR Normal CLEAR [facility] Comment on above: Performed By: #### E RUR ####[facility] Lcmlfnbuiu6516 [place] [address]Dr. Flaco Lawrence Color (U) LT. YELLOW Normal YELLOW [facility] Comment on above: Performed By: #### E RUR ####[facility] Pzgfxqmdub9[address] [place], [place] [address]Dr. Flaco Lawrence ERUAHD A micrscopic examination will be performed if indicated. Normal [facility] Comment on above: Performed By: #### E RUR ####[facility] Fqyyrrpajh1180[address] [place], [place] [address]Dr. Flaco Lawrence Glucose Ql (U) Negative Normal NEGATIVE [facility] Comment on above: Performed By: #### E RUR ####[facility] Stotwpwpvc377[address] [place], [place] [address]Dr. Flaco Lawrence Hemoglobin Ql (U) Negative Normal NEGATIVE [facility] Comment on above: Performed By: #### E RUR ####[facility] Rlwosjixpu3211[address] [place], [place] [address]Dr. Flaco Lawrence Ketones Ql (U) Negative Normal NEGATIVE [facility] Comment on above: Performed By: #### E RUR ####[facility] Jhlfgyueat387[address] [place], [place] [address]Dr. Flaco Lawrence LEUKOCYTES Negative Normal NEGATIVE [facility] Comment on above: Performed By: #### E RUR ####[facility] Jqtvyzdatg379[address] [place], [place] [address]Dr. Flaco Lawrence Nitrite Ql (U) Negative Normal NEGATIVE [facility] Comment on above: Performed By: #### E RUR ####[facility] Sclavktfon9[address] [place], [place] [address]Dr. Purviedith Branden pH (U) 5.5 [pH] Normal 5-9 [facility] Comment on above: Performed By: #### E RUR ####[facility] Vpuuhezjqr6947[address] [place], [place] [address]Dr. Flaco Branden SPEC GRAVITY <=1.005 Abnormal 1.005-<=1.02 5 [facility] Comment on above: Performed By: #### E RUR ####[facility] Qsqautdmvw5720[address] [place], [place] [address]Dr. Purviedith Branden UA PROTEIN Negative Normal NEGATIVE/ TRACE [facility] Comment on above: Performed By: #### E RUR ####[facility] Htbxqxvxyq424[address] [place], [place] [address]Dr. Flaco Lawrence UR MICRO IND NOT INDICATED Normal [facility] Comment on above: Performed By: #### E RUR ####[facility] Dgdosprrwi3835[address] [place], [place] [address]Dr. Purviedith Branden Urobilinogen Qn (U) 0.2 {Tuan'U}/dL Normal 0.2 - 1. 0 [facility] Comment on above: Performed By: #### E RUR ####[facility] Awsuxnrfrr44[address] [place] [address]Dr. Purviedith Branden PROF CHEM 8 (BAS METB)on Anion gap [Moles/Vol] 13.6 mmol/L Normal [facility] Comment on above: Performed By: #### B MP ####[facility] Pbpjqnxiig2181 [place] [address]Dr. Flaco Lawrence Calcium [Mass/Vol] 9.2 mg/dL Normal 8.5-10.1 [facility] Comment on above: Performed By: #### B MP ####[facility] Cobtrggvzm3141 [place] [address]Dr. Flaco Lawrence Chloride [Moles/Vol] 104 mmol/L Normal 98-107 [facility] Comment on above: Performed By: #### B MP ####[facility] Ldeertyjbn6415[address] [place], [place] [address]Dr. Flaco Lawrence CO2 [Moles/Vol] 24.9 mmol/L Normal 21.0-32.0 [facility] Comment on above: Performed By: #### B MP ####[facility] Jcbvkvyygt0512[address] [place], [place] [address]Dr. Flaco Lawrence Creatinine [Mass/Vol] 1.59 mg/dL Critically high 0.70-1.30 [facility] Comment on above: Performed By: #### B MP ####[facility] Drymtnprmi645[address] [place], [place] [address]Dr. Flaco Lawrence EGFR-AF PANAMANIAN 52 mL/min/1.73m2 Critically low >=60 [facility] Comment on above: Performed By: #### B MP ####[facility] Taquzhaiua8[address] [place], [place] [address]Dr. Flaco Lawrence EGFR-NON AF PANAMANIAN 43 mL/min/1.73m2 Critically low >=60 [facility] Comment on above: Performed By: #### B MP ####[facility] Eccldrbtcp87[address] [place], [place] [address]Dr. Flaco Lawrence Glucose [Mass/Vol] 119 mg/dL Critically high 74-106 [facility] Comment on above: Performed By: #### B MP ####[facility] Vocisiywfv5220 [place] [address]Dr. Flaco Lawrence Potassium [Moles/Vol] 3.5 mmol/L Normal 3.5-5.1 [facility] Comment on above: Performed By: #### B MP ####[facility] Hvrdeopgwj4[address] [place], [place] [address]Dr. Flaco Branden Sodium [Moles/Vol] 139 mmol/L Normal 136-145 [facility] Comment on above: Performed By: #### B MP ####[facility] Hikpyjrlhu[address] [place], [place] [address]Dr. Flaco Lawrence Urea nitrogen [Mass/Vol] 12.0 mg/dL Normal 7.0-18.0 [facility] Comment on above: Performed By: #### B MP ####[facility] Coqqrzwjzn7049[address] [place], [place] [address]Dr. Flaco Bradnen Urea nitrogen/Creatinine [Mass ratio] 7.5 mg/mg Normal [facility] Comment on above: Performed By: #### B MP ####[facility] Qnxvbgyglt695[address] [place], [place] [address]Dr. Flaco Branden CBC AUTO DIFFon 11-12-2022 BASO # 0.0 103/ul Normal 0.0-0.1 [facility] Comment on above: Performed By: #### C BC ####[facility] Cesqtgkxjc8500[address] [place], [place] [address]Dr. Purviedith Branden Basophils/100 WBC (Bld) 0.4 % Normal 0.2-2.0 [facility] Comment on above: Performed By: #### C BC ####[facility] Kcquvtqhzi9[address] [place], [place] [address]Dr. Flaco Branden EO # 0.1 103/ul Normal 0.0-0.7 [facility] Comment on above: Performed By: #### C BC ####[facility] Stapqzhnqb28[address] [place], [place] [address]Dr. Flaco Lawrence Eosinophils/100 WBC (Bld) 0.6 % Critically low 0.9-7.0 [facility] Comment on above: Performed By: #### C BC ####[facility] Nyeiqqwkaj2720 [place] [address]Dr. Flaco Lawrence Erythrocyte distribution width (RBC) [Ratio] 15.9 % Critically high 11.0-15.0 [facility] Comment on above: Performed By: #### C BC ####[facility] Mbrwpdhkwg4164 [place] [address]Dr. Flaco Lawrence Hematocrit (Bld) [Volume fraction] 36.0 % Critically low 42.0-54.0 [facility] [facility] Comment on above: Performed By: #### C BC ####[facility] Nfsoesigik[address] [place], [place] [address]Dr. Flaco Lawrence Hemoglobin (Bld) [Mass/Vol] 11.9 g/dL Critically low 14.0-18.0 [facility] Comment on above: Performed By: #### C BC ####[facility] Dltkjvlyjm7[address] [place], [place] [address]Dr. Flaco Lawrence IG # 0.03 10e3/ul Normal 0.00-0.03 [facility] Comment on above: Performed By: #### C BC ####[facility] Xopuswhtlg8501[address] [place], [place] [address]Dr. Flaco Lawrence IG % 0.3 % Normal 0.0-0.5 [facility] Comment on above: Performed By: #### C BC ####[facility] Bmbnybanev[address] [place], [place] [address]DrJeramie Flaco Lawrence LYMPH # 1.9 103/ul Normal 1.2-3.8 [facility] Comment on above: Performed By: #### C BC ####[facility] Kyprjhqqxj73[address] [place], [place] [address]DrJeramie Flaco Lawrence Lymphocytes/100 WBC (Bld) 19.3 % Critically low 20.5-60.0 [facility] Comment on above: Performed By: #### C BC ####[facility] Esfvnyjkpa47[address] [place], [place] [address]Dr. Flaco Branden MANUAL DIFF REQ NO Normal [facility] Comment on above: Performed By: #### C BC ####[facility] Wenwfrwmtt84[address] [place] [address]Dr. Flaco Branden MCH (RBC) [Entitic mass] 28.6 pg Normal 25.9-34.0 [facility] Comment on above: Performed By: #### C BC ####[facility] Smdpsbramo93[address] [place] [address]Dr. Purviedith Branden MCHC (RBC) [Mass/Vol] 33.1 g/dL Normal 29.9-35.2 [facility] Comment on above: Performed By: #### C BC ####[facility] Fgyubvxgju5[address] [place] [address]Dr. Flaco Lawrence MCV (RBC) [Entitic vol] 86.5 fL Normal 80.0-94.0 [facility] Comment on above: Performed By: #### C BC ####[facility] Synqyvrtcp[address] [place], [place] [address]Dr. Flaco Lawrence MONO # 1.2 103/ul Critically high 0.3-0.8 [facility] Comment on above: Performed By: #### C BC ####[facility] Wopcocfhkm0812[address] [place], [place] [address]Dr. Flaco Lawrence Monocytes/100 WBC (Bld) 12.5 % Critically high 1.7-12.0 [facility] Comment on above: Performed By: #### C BC ####[facility] Pgprzkbvwo255[address] [place], [place] [address]Dr. Flaco Lawrence NEUT # 6.5 103/ul Normal 1.4-6.5 [facility] Comment on above: Performed By: #### C BC ####[facility] Dbcqvlmekq[address] [place], [place] [address]DrJeramie Lawrence Neutrophils/100 WBC (Bld) 66.9 % Normal 43.0-75.0 [facility] Comment on above: Performed By: #### C BC ####[facility] Sqfmvbvxmt509[address] [place], [place] [address]DrJeramie Lawrence Platelet mean volume (Bld) [Entitic vol] 9.6 fL Normal 9.5-13.5 [facility] Comment on above: Performed By: #### C BC ####[facility] Viofcbsoij60[address] [place] [id number]. Flaco Lawrence PLT 345 103/ul Normal 150-450 [facility] Comment on above: Performed By: #### C BC ####[facility] Mdzdligmey65[address] [place] [id number]. Flaco Lawrence RBC 4.16 106/ul Critically low 4.70-6.10 [facility] Comment on above: Performed By: #### C BC ####[facility] Xknrfvbxkr3193 [place] [id number]. Flaco Lawrence WBC 9.7 103/ul Normal 4.0-11.0 [facility] Comment on above: Performed By: #### C BC ####[facility] Qqogpqdazm6[address] [place] [address]Dr. Flaco Lawrence ECHOCARDIO M/2D COMPLETEon 0 11-12-2022 ECHOCARDIO M/2D COMPLETE Normal [facility] MRA NECK WO CONon 11-12-2022 MRA NECK WO CON Normal [facility] MRI BRAIN WO CONon MRI BRAIN WO CON Normal [facility] PROF CHEM 8 (BAS METB)on Anion gap [Moles/Vol] 12.7 mmol/L Normal [facility] Comment on above: Performed By: #### B MP ####[facility] Cjuoogvhig6[address] [place] [id number] Lawrence Calcium [Mass/Vol] 8.8 mg/dL Normal 8.5-10.1 [facility] Comment on above: Performed By: #### B MP ####[facility] Vdyjhyrvua5190 [place] [address]DrJeramie Lawrence Chloride [Moles/Vol] 102 mmol/L Normal 98-107 [facility] Comment on above: Performed By: #### B MP ####[facility] Wddyefaanh8827 [place] [address]DrJeramie Lawrence CO2 [Moles/Vol] 24.9 mmol/L Normal 21.0-32.0 [facility] Comment on above: Performed By: #### B MP ####[facility] Geowstkynm54[address] [place], [place] [address]Dr. Flaco Lawrence Creatinine [Mass/Vol] 1.58 mg/dL Critically high 0.70-1.30 [facility] Comment on above: Performed By: #### B MP ####[facility] Bammnhdlqk4827[address] [place], [place] [address]Dr. Purviedith Branden EGFR-AF PANAMANIAN 53 mL/min/1.73m2 Critically low >=60 [facility] Comment on above: Performed By: #### B MP ####[facility] Nusxdcpmpe525[address] [place], [place] [address]Dr. Purviedith Branden EGFR-NON AF PANAMANIAN 43 mL/min/1.73m2 Critically low >=60 [facility] Comment on above: Performed By: #### B MP ####[facility] Lthdqvvwfb4420[address] [place], [place] [address]Dr. Flaco Lawrence Glucose [Mass/Vol] 107 mg/dL Critically high 74-106 [facility] Comment on above: Performed By: #### B MP ####[facility] Cuozihhpvf329[address] [place], [place] [address]Dr. Flaco Lawrence Potassium [Moles/Vol] 3.6 mmol/L Normal 3.5-5.1 [facility] Comment on above: Performed By: #### B MP ####[facility] Oafyjzbaww50[address] [place], [place] [address]Dr. Flaco Lawrence Sodium [Moles/Vol] 136 mmol/L Normal 136-145 [facility] Comment on above: Performed By: #### B MP ####[facility] Rtqnburcpr7359[address] [place], [place] [address]Dr. Flaco Lawrence Urea nitrogen [Mass/Vol] 10.0 mg/dL Normal 7.0-18.0 [facility] Comment on above: Performed By: #### B MP ####[facility] Tnepbwpbqd[address] [place], [place] [address]Dr. Flaco Lawrence Urea nitrogen/Creatinine [Mass ratio] 6.3 mg/mg Normal [facility] Comment on above: Performed By: #### B MP ####[facility] Qwmsrutgez0817 [place] [address]Dr. Flaco Lawrence CBC AUTO DIFFon 11-11-2022 BASO # 0.0 103/ul Normal 0.0-0.1 [facility] Comment on above: Performed By: #### C BC ####[facility] Memeddbfrm350[address] [place], [place] [address]Dr. Flaco Lawrence Basophils/100 WBC (Bld) 0.4 % Normal 0.2-2.0 [facility] Comment on above: Performed By: #### C BC ####[facility] Hjvasrhioq5327[address] [place], [place] [address]Dr. Flaco Lawrence EO # 0.1 103/ul Normal 0.0-0.7 [facility] Comment on above: Performed By: #### C BC ####[facility] Sxcwerusrv9080[address] [place], [place] [address]Dr. Flaco Lawrence Eosinophils/100 WBC (Bld) 0.7 % Critically low 0.9-7.0 [facility] Comment on above: Performed By: #### C BC ####[facility] Eimxuhmtde258[address] [place], [place] [address]Dr. Flaco Lawrence Erythrocyte distribution width (RBC) [Ratio] 16.3 % Critically high 11.0-15.0 [facility] Comment on above: Performed By: #### C BC ####[facility] Zoajhceazv385[address] [place], [place] [address]Dr. Flaco Lawrence Hematocrit (Bld) [Volume fraction] 37.4 % Critically low 42.0-54.0 [facility] Comment on above: Performed By: #### C BC ####[facility] Usehlajgkd505[address] [place], [place] [address]Dr. Flaco Lawrence Hemoglobin (Bld) [Mass/Vol] 12.5 g/dL Critically low 14.0-18.0 [facility] Comment on above: Performed By: #### C BC ####[facility] Vsetxaptfz034[address] [place] [id number]. Flaco Lawrence IG # 0.03 10e3/ul Normal 0.00-0.03 [facility] Comment on above: Performed By: #### C BC ####[facility] Wxtvxvvccq7535 [place] [address]Dr. Flaco Lawrence IG % 0.3 % Normal 0.0-0.5 [facility] Comment on above: Performed By: #### C BC ####[facility] Ykxtbzbljg6298 [place] [address]Dr. Flaco Branden LYMPH # 2.0 103/ul Normal 1.2-3.8 [facility] Comment on above: Performed By: #### C BC ####[facility] Ctgkyocnsd9940 [place] [address]Dr. Flaco Lawrence Lymphocytes/100 WBC (Bld) 18.8 % Critically low 20.5-60.0 [facility] Comment on above: Performed By: #### C BC ####[facility] Tdxsuaoado8[address] [place] [address]Dr. Purviedith Lawrence MANUAL DIFF REQ NO Normal [facility] Comment on above: Performed By: #### C BC ####[facility] Pehnhnxfdj55[address] [place] [address]Dr. Flaco Lawrence MCH (RBC) [Entitic mass] 29.1 pg Normal 25.9-34.0 [facility] Comment on above: Performed By: #### C BC ####[facility] Ccmnrqfqsp7216 [place] [address]Dr. Flaco Lawrence MCHC (RBC) [Mass/Vol] 33.4 g/dL Normal 29.9-35.2 [facility] Comment on above: Performed By: #### C BC ####[facility] Wzoduaokst5[address] [place], [place] [address]Dr. Flaco Lawrence MCV (RBC) [Entitic vol] 87.2 fL Normal 80.0-94.0 [facility] Comment on above: Performed By: #### C BC ####[facility] Saevjowqca78[address] [place] [id number]. Flaco Lawrence MONO # 1.2 103/ul Critically high 0.3-0.8 [facility] Comment on above: Performed By: #### C BC ####[facility] Roaukkqhbv3734 [place] [id number]. Flaco Lawrence Monocytes/100 WBC (Bld) 11.2 % Normal 1.7-12.0 [facility] Comment on above: Performed By: #### C BC ####[facility] Cvzifeorkk3680 [place] [id number]. lFaco Lawrence NEUT # 7.1 103/ul Critically high 1.4-6.5 [facility] Comment on above: Performed By: #### C BC ####[facility] Zgnqdrtovc6916 [place] [address]Dr. Flaco Lawrence Neutrophils/100 WBC (Bld) 68.6 % Normal 43.0-75.0 [facility] Comment on above: Performed By: #### C BC ####[facility] Ityejpuivc9126 [place] [address]Dr. Flaco Lawrence Platelet mean volume (Bld) [Entitic vol] 9.5 fL Normal 9.5-13.5 [facility] Comment on above: Performed By: #### C BC ####[facility] Xklredltjo6578 [place] [id number]. Flaco Lawrence PLT 351 103/ul Normal 150-450 [facility] Comment on above: Performed By: #### C BC ####[facility] Cgpxujuhgl7158 [place] [id number]. Flaco Lawrence RBC 4.29 106/ul Critically low 4.70-6.10 [facility] Comment on above: Performed By: #### C BC ####[facility] Hwrishtnj[address] [place], [place] [id number]. Flaco Lawrence WBC 10.4 103/ul Normal 4.0-11.0 [facility] Comment on above: Performed By: #### C BC ####[facility] Ejquzasahz[address] [place], [place] [id number]. Flaco Lawrence CT HEAD WO CONon 11-11-2022 CT HEAD WO CON Normal [facility] Covid-19 PCR (CVDTB)on 10-29 SARS-CoV-2 (COVID-19) RNA MARCO ANTONIO+probe Ql (Unsp spec) Not detected Normal NOT DETECTED [facility] Comment on above: Result Comment: When [...] for this test is supported by the [place] of Health and Human Service's declaration that [...] be used). Performed By: #### C VDTBH ####[facility] Rabwafpuzo[address] [place] [id number]. Flaco Branden LIPID PROFILEon 11-11-2022 CHOL-HDL RATIO NORM SEE BELOW Normal [facility] Comment on above: Result Comment: 3.3 - 4.4 LOW RISK 4.4 - 7.1 AVERAGE RISK 7.1 - 11.0 MODERATE RISK >11.0 HIGH RISK Performed By: #### L IPID, TSH ####[facility] Yuqgfrknqp1419 [place] [id number]. Flaco Lawrence Cholesterol [Mass/Vol] 176 mg/dL Normal <=200 [facility] Comment on above: Performed By: #### L IPID, TSH ####[facility] Ctrlxidvzq1213 [place] [id number]. Flaco Lawrence Cholesterol in HDL [Mass/Vol] 40 mg/dL Normal 40-60 [facility] Comment on above: Performed By: #### L IPID, TSH ####[facility] Ttushvnulr2954 [place] [address]Dr. Flaco Lawrence Cholesterol in LDL [Mass/Vol] 117.6 mg/dL Normal [facility] Comment on above: Performed By: #### L IPID, TSH ####[facility] Vruamkkaqe5654 [place] [address]Dr. Flaco Lawrence Cholesterol.total/Chol esterol in HDL [Mass ratio] 4.4 {ratio} Normal [facility] Comment on above: Performed By: #### L IPID, TSH ####[facility] Kkiwzxzjlg4889 [place] [address]Dr. Flaco Lawrence HDL NORMAL > or = 60 mg/dl - LO W CARDIOVASCULAR RISK <40 mg/dl - HIGH CARDIOVASCULAR RISK Normal [facility] Comment on above: Performed By: #### L IPID, TSH ####[facility] Dgsmvxdlxa1216 [place] [address]Dr. Flaco Lawrence LDL CALC NORMAL SEE BELOW Normal [facility] Comment on above: Result Comment: <100 mg/dl OPTIMAL 100 - 129 mg/dl NEAR OR ABOVE OPTIMAL 130 - 159 mg/dl BORDERLINE HIGH 160 - 189 mg/dl HIGH >190 mg/dl VERY HIGH Performed By: #### L IPID, TSH ####[facility] Xilcivebbq7[address] [place] [address]Dr. Flaco Lawrence Triglyceride [Mass/Vol] 92 mg/dL Normal <=150 [facility] Comment on above: Performed By: #### L IPID, TSH ####[facility] Nzjdrdkjgq4720 [place] [address]Dr. Flaco Lawrence VLDL CALC 18.4 mg/dL Normal [facility] Comment on above: Performed By: #### L IPID, TSH ####[facility] Pxbidcduof1566 [place] [address]Dr. Flaco Lawrence PROF CHEM 8 (BAS METB)on Anion gap [Moles/Vol] 13.0 mmol/L Normal [facility] Comment on above: Performed By: #### B MP, HSTROPN ####[facility] Iegyrsegrz5745 [place] [address]Dr. Flaco Lawrence Calcium [Mass/Vol] 9.3 mg/dL Normal 8.5-10.1 [facility] Comment on above: Performed By: #### B YEHUDA, HSTROPN ####[facility] Shknhkscqv9671 [place] [address]Dr. Flaco Lawrence Chloride [Moles/Vol] 101 mmol/L Normal 98-107 [facility] Comment on above: Performed By: #### B YEHUDA, HSTROPN ####[facility] Xphqewpnyv9924 [place] [address]Dr. Flaco Lawrence CO2 [Moles/Vol] 27.7 mmol/L Normal 21.0-32.0 [facility] Comment on above: Performed By: #### B YEHUDA, HSTROPN ####[facility] Vfzqmpbjmy0683 [place] [address]Dr. Flaco Lawrence Creatinine [Mass/Vol] 1.75 mg/dL Critically high 0.70-1.30 [facility] Comment on above: Performed By: #### B YEHUDA, HSTROPN ####[facility] Bmkmgzflbq[address] [place], [place] [address]Dr. Flaco Lawrence EGFR-AF PANAMANIAN 47 mL/min/1.73m2 Critically low >=60 [facility] Comment on above: Performed By: #### B YEHUDA, HSTROPN ####[facility] Ytpfpllfdq[address] [place], [place] [address]Dr. Flaco Lawrence EGFR-NON AF PANAMANIAN 39 mL/min/1.73m2 Critically low >=60 [facility] Comment on above: Performed By: #### B YEHUDA, HSTROPN ####[facility] Ynctlprfhe[address] [place], [place] [address]Dr. Flaco Lawrence Glucose [Mass/Vol] 97 mg/dL Normal 74-106 [facility] Comment on above: Performed By: #### B YEHUDA, HSTROPN ####[facility] Lhjkhbnddn4[address] [place], [place] [address]Dr. Flaco Lawrence Potassium [Moles/Vol] 3.7 mmol/L Normal 3.5-5.1 [facility] Comment on above: Performed By: #### B YEHUDA, HSTROPN ####[facility] Gcherfgrax2220 [place] [address]Dr. Flaco Lawrence Sodium [Moles/Vol] 138 mmol/L Normal 136-145 [facility] Comment on above: Performed By: #### B YEHUDA, HSTROPN ####[facility] Ppcuqwvdra01[address] [place], [place] [address]Dr. Flaco Lawrence Urea nitrogen [Mass/Vol] 13.0 mg/dL Normal 7.0-18.0 [facility] Comment on above: Performed By: #### B YEHUDA, HSTROPN ####[facility] Yfrnuxotnu[address] [place], [place] [address]Dr. Flaco Lawrence Urea nitrogen/Creatinine [Mass ratio] 7.4 mg/mg Normal [facility] Comment on above: Performed By: #### B YEHUDA, HSTROPN ####[facility] Gcasezdvaj[address] [place], [place] [address]Dr. Flaco Lawrence PROTIMEon 11-11-2022 INR Coag (PPP) [Relative time] 1.05 {INR} Normal [facility] Comment on above: Performed By: #### P T, PTT ####[facility] Uyutbeorvw52[address] [place], [place] [address]Dr. Flaco Lawrence INR GUIDELINES SEE BELOW Normal [facility] Comment on above: Result Comment: RON RED INR: 2.0 - 3.0 CONDITIONS NOT LISTED BELOW 2.5 - 3.5 FOR PROSTHETIC HEART VALVE REPLACEMENT 2.5 - 3.5 RECURRENT THROMBOSIS Performed By: #### P T, PTT ####[facility] Nhuqeidklk94[address] [place], [place] [address]Dr. Flaco Lawrence PT Coag (PPP) [Time] 11.1 s Normal 9.0-11.6 [facility] Comment on above: Performed By: #### P T, PTT ####[facility] Nqvapupyei644[address] [place], [place] [address]Dr. Flaco Lawrence PTTon 11-11-2022 aPTT Coag (Bld) [Time] 34.3 s Normal 22.3-36.2 [facility] Comment on above: Performed By: #### P T, PTT ####[facility] Kdxkqjkhwo16[address] [place] [address]Dr. Flaco Lawrence TROPONIN, HIGH SENSITIVITYon 11-11-2022 HSTROP 4.7 pg/mL Normal 4.0-76.1 [facility] Comment on above: Result Comment: CUT- OFF POINTS HAVE BEEN ESTABLISHED BASED ON THE FOURTH UNIVERSAL DEFINITIONS OF MYOCARDIALINFARCTION. THE UPPER REFERENCE LIMIT (URL) OF TROPONIN, DEFINED THE 99TH PERCENTILE OFcTnI DISTRIBUTION IN A REFERENCE POPULATION, HAS BEEN CONFIRMED THE DECISION THRESHOLDFOR MT DIAGNOSIS. Performed By: #### B MP, HSTROPN ####[facility] Kjuvfjwvbq[address] [place], [place] [address]Dr. Flaco Lawrence TSHon 11-11-2022 TSH 0.829 uIU/mL Normal 0.358-3.740 [facility] Comment on above: Performed By: #### L IPID, TSH ####[facility] Nwwkaywolh12[address] [place], [place] [address]Dr. Flaco Lawrence XR CHEST 1 Von 11-11-2022 XR CHEST 1 V Normal [facility] XR FOOT RT MIN 3 VIEWSon XR FOOT RT MIN 3 VIEWS Normal [facility] XR FOOT RT MIN 3 VIEWSon XR FOOT RT MIN 3 VIEWS Normal [facility] POINT OF CARE GLUCOSEon 12-2 Glucose [Mass/Vol] 87 mg/dL Normal 74-106 [facility] Comment on above: Performed By: #### P OCGLUC ####[facility] Matxlrobxt[address] [place], [place] [address]Dr. Flaco Lawrence Glucose [Mass/Vol] 94 mg/dL Normal 74-106 [facility] Comment on above: Performed By: #### P OCGLUC ####[facility] Fzsmnxasfs972[address] [place], [place] [address]Dr. Flaco Lawrence XR FOOT RT 2Von 09-25-2022 XR FOOT RT 2V Normal [facility] XR FOOT RT MIN 3 VIEWSon XR FOOT RT MIN 3 VIEWS Normal e [facility] XR WRIST RT MIN 3 Von 2021 XR WRIST RT MIN 3 V Normal [facility]on 08-29 SARS-CoV-2 (COVID-19) RNA MARCO ANTONIO+probe Ql (Unsp spec) Not detected Normal NOT DETECTED [facility] Comment on above: Result Comment: This test is not yet approved or cleared by the [place] FDA. When there are no FDA-approved or cleared tests available, and other criteria are met, FDA can make tests available under an emergency access mechanism called an Emergency Use Authorization (EUA). The EUA for this test is supported by the [place] of Health and Human Service's (HHS's) declaration [...] with SARS-CoV-2. Performed By: #### C VDTBH ####[facility] [address]zmawyphof[address] [place] [address]Dr. Flaco Lawrence PROF CHEM 8 (BAS METB)on Anion gap [Moles/Vol] 10.4 mmol/L Normal [facility] Comment on above: Performed By: #### B MP ####[facility] Dscdsxuotb7766 [place] [id number]. Flaco Lawrence Calcium [Mass/Vol] 8.7 mg/dL Normal 8.5-10.1 [facility] Comment on above: Performed By: #### B MP ####[facility] Bfnrtkhkqc5811 [place] [id number]. Flaco Lawrence Chloride [Moles/Vol] 104 mmol/L Normal 98-107 [facility] Comment on above: Performed By: #### B MP ####[facility] Qpoaavqxaa9725 [place] [address]Dr. Flaco Lawrence CO2 [Moles/Vol] 27.2 mmol/L Normal 21.0-32.0 [facility] Comment on above: Performed By: #### B MP ####[facility] Cjhnmpcasy[address] [place], [place] [address]Dr. Flaco Lawrence Creatinine [Mass/Vol] 2.02 mg/dL Critically high 0.70-1.30 [facility] Comment on above: Performed By: #### B MP ####[facility] Rqbpnrvpzh190[address] [place], [place] [address]Dr. Flaco Lawrence EGFR-AF PANAMANIAN 40 mL/min/1.73m2 Critically low >=60 [facility] Comment on above: Performed By: #### B MP ####[facility] Xqgownbvtb6[address] [place], [place] [address]Dr. Flaco Lawrence EGFR-NON AF PANAMANIAN 33 mL/min/1.73m2 Critically low >=60 [facility] Comment on above: Performed By: #### B MP ####[facility] Ifgolattcp475[address] [place], [place] [address]Dr. Flaco Lawrence Glucose [Mass/Vol] 91 mg/dL Normal 74-106 [facility] Comment on above: Performed By: #### B MP ####[facility] Vrykuvxbaq4[address] [place], [place] [address]Dr. Flaco Lawrence Potassium [Moles/Vol] 3.6 mmol/L Normal 3.5-5.1 [facility] Comment on above: Performed By: #### B MP ####[facility] Idyyschidv05[address] [place], [place] [address]Dr. Flaco Lawrence Sodium [Moles/Vol] 138 mmol/L Normal 136-145 [facility] Comment on above: Performed By: #### B MP ####[facility] Ltpuldwspu1830[address] [place], [place] [address]Dr. Flaco Lawrence Urea nitrogen [Mass/Vol] 14.0 mg/dL Normal 7.0-18.0 [facility] Comment on above: Performed By: #### B MP ####[facility] Acxqhauqnq70[address] [place] [address]Dr. Flaco Branden Urea nitrogen/Creatinine [Mass ratio] 6.9 mg/mg Normal [facility] Comment on above: Performed By: #### B MP ####[facility] Rtmwkeyovw6146 [place] [address]Dr. Flaco Branden CBC AUTO DIFFon 08-15-2022 BASO # 0.1 103/ul Normal 0.0-0.1 [facility] Comment on above: Performed By: #### C BC ####[facility] Cytletcuaw8085 [place] [address]Dr. Purviedith Lawrence Basophils/100 WBC (Bld) 0.8 % Normal 0.2-2.0 [facility] Comment on above: Performed By: #### C BC ####[facility] Eunbmoamar8[address] [place], [place] [address]Dr. Flaco Branden EO # 0.1 103/ul Normal 0.0-0.7 [facility] Comment on above: Performed By: #### C BC ####[facility] Znsqutbetm67[address] [place], [place] [address]Dr. Flaco Branden Eosinophils/100 WBC (Bld) 1.4 % Normal 0.9-7.0 [facility] Comment on above: Performed By: #### C BC ####[facility] Edebadetke18[address] [place], [place] [address]Dr. Flaco Lawrence Erythrocyte distribution width (RBC) [Ratio] 13.6 % Normal 11.0-15.0 [facility] Comment on above: Performed By: #### C BC ####[facility] Oibhveldnh39[address] [place], [place] [address]Dr. Flaco Branden Hematocrit (Bld) [Volume fraction] 46.2 % Normal 42.0-54.0 [facility] Comment on above: Performed By: #### C BC ####[facility] Svqrzbjvdd4684 [place] [id number]. Flaco Lawrence Hemoglobin (Bld) [Mass/Vol] 15.2 g/dL Normal 14.0-18.0 [facility] Comment on above: Performed By: #### C BC ####[facility] Gkhweaaroe34[address] [place] [id number]. Flaco Lawrence IG # 0.02 10e3/ul Normal 0.00-0.03 [facility] Comment on above: Performed By: #### C BC ####[facility] Uxmnfkgujw4[address] [place] [address]Dr. Flaco Lawrence IG % 0.2 % Normal 0.0-0.5 [facility] Comment on above: Performed By: #### C BC ####[facility] Jownvmzskq[address] [place], [place] [address]Dr. Flaco Lawrence LYMPH # 1.8 103/ul Normal 1.2-3.8 [facility] Comment on above: Performed By: #### C BC ####[facility] [facility] [address]rrnhel[address] [place], [place] [address]Dr. Flaco Lawrence Lymphocytes/100 WBC (Bld) 19.2 % Critically low 20.5-60.0 [facility] Comment on above: Performed By: #### C BC ####[facility] [address]zslauns[address] [place] [address]Dr. Flaco Lawrence MANUAL DIFF REQ NO Normal [facility] Comment on above: Performed By: #### C BC ####[facility] Durkmpkhua[address] [place] [address]Dr. Flaco Lawrence MCH (RBC) [Entitic mass] 28.6 pg Normal 25.9-34.0 [facility] Comment on above: Performed By: #### C BC ####[facility] Pumbalcxmd[address] [place], [place] [address]Dr. Flaco Lawrence MCHC (RBC) [Mass/Vol] 32.9 g/dL Normal 29.9-35.2 [facility] Comment on above: Performed By: #### C BC ####[facility] Pijayhkykg8[address] [place] [id number]. Flaco Lawrence MCV (RBC) [Entitic vol] 86.8 fL Normal 80.0-94.0 [facility] Comment on above: Performed By: #### C BC ####[facility] Xcxfrirqpr5680 [place] [id number]. Flaco Lawrence MONO # 0.8 103/ul Normal 0.3-0.8 [facility] Comment on above: Performed By: #### C BC ####[facility] Tbytohqufl0119 [place] [id number]. Flaco Lawrence Monocytes/100 WBC (Bld) 8.7 % Normal 1.7-12.0 [facility] Comment on above: Performed By: #### C BC ####[facility] Fdevtphwhy8603 [place] [id number]. Flaco Lawrence NEUT # 6.5 103/ul Normal 1.4-6.5 [facility] Comment on above: Performed By: #### C BC ####[facility] Lrsvlmbmcx3714 [place] [id number]. Flaco Lawrence Neutrophils/100 WBC (Bld) 69.7 % Normal 43.0-75.0 [facility] Comment on above: Performed By: #### C BC ####[facility] Uqhcwakvny3652 [place] [id number]. Flaco Lawrence Platelet mean volume (Bld) [Entitic vol] 9.8 fL Normal 9.5-13.5 [facility] Comment on above: Performed By: #### C BC ####[facility] Awjqyigcqb4826 [place] [id number]. Flaco Branden PLT 503 103/ul Critically high 150-450 [facility] Comment on above: Performed By: #### C BC ####[facility] Ijlomwzmzj1924 [place] [id number]. Flaco Branden RBC 5.32 106/ul Normal 4.70-6.10 [facility] Comment on above: Performed By: #### C BC ####[facility] C[address]hr[address]jxssz[address] [place], [place] [id number]. Flaco Lawrence WBC 9.3 103/ul Normal 4.0-11.0 [facility] Comment on above: Performed By: #### C BC ####[facility] Zenvduimuj62[address] [place] [address]Dr. Flaco Lawrence PROTIMEon 08-15-2022 INR Coag (PPP) [Relative time] 1.73 {INR} Normal [facility] Comment on above: Performed By: #### P TT, PT ####[facility] Enswizcvwl8[address] [place], [place] [address]Dr. Flaco Lawrence INR GUIDELINES SEE BELOW Normal [facility] Comment on above: Result Comment: RON RED INR: 2.0 - 3.0 CONDITIONS NOT LISTED BELOW 2.5 - 3.5 FOR PROSTHETIC HEART VALVE REPLACEMENT 2.5 - 3.5 RECURRENT THROMBOSIS Performed By: #### P TT, PT ####[facility] Ivrlmjfqbg[address] [place], [place] [address]Dr. Flaco Branden PT Coag (PPP) [Time] 18.0 s Critically high 9.0-11.6 [facility] Comment on above: Performed By: #### P TT, PT ####[facility] Bsxsfqlicb7[address] [place], [place] [address]Dr. Flaco Lawrence PTTon 08-15-2022 aPTT Coag (Bld) [Time] 34.8 s Normal 22.3-36.2 [facility] Comment on above: Performed By: #### P TT, PT ####[facility] Qqjxnmhntu[address] [place], [place] [address]Dr. Flaco Lawrence CBC AUTO DIFFon 08-02-2022 BASO # 0.0 103/ul Normal 0.0-0.1 [facility] Comment on above: Performed By: #### C BC ####[facility] Uchsnaklwn[address] [place], [place] [address]Dr. Flaco Branden Basophils/100 WBC (Bld) 0.2 % Normal 0.2-2.0 [facility] Comment on above: Performed By: #### C BC ####[facility] Boebbttcgj7[address] [place] [address]Dr. Flaco Lawrence EO # 0.1 103/ul Normal 0.0-0.7 [facility] Comment on above: Performed By: #### C BC ####[facility] Tpmdenbodw8422 [place] [address]Dr. Flaco Lawrence Eosinophils/100 WBC (Bld) 1.2 % Normal 0.9-7.0 [facility] Comment on above: Performed By: #### C BC ####[facility] Wgeyuljzsx60[address] [place], [place] [address]Dr. Flaco Lawrence Erythrocyte distribution width (RBC) [Ratio] 13.2 % Normal 11.0-15.0 [facility] Comment on above: Performed By: #### C BC ####[facility] Rrzodotepq[address] [place], [place] [address]Dr. Flaco Lawrence Hematocrit (Bld) [Volume fraction] 42.6 % Normal 42.0-54.0 [facility] Comment on above: Performed By: #### C BC ####[facility] Coryupkmxk069[address] [place], [place] [address]Dr. Flaco Lawrence Hemoglobin (Bld) [Mass/Vol] 14.0 g/dL Normal 14.0-18.0 [facility] Comment on above: Performed By: #### C BC ####[facility] Rullcopxly[address] [place], [place] [address]Dr. Flaco Lawrence IG # 0.05 10e3/ul Critically high 0.00-0.03 [facility] Comment on above: Performed By: #### C BC ####[facility] Mvcdcljoye736[address] [place], [place] [address]Dr. Flaco Lawrenec IG % 0.5 % Normal 0.0-0.5 [facility] Comment on above: Performed By: #### C BC ####[facility] Jgmgbjvivq29[address] [place], [place] [address]Dr. Purviedith Lawrence LYMPH # 1.5 103/ul Normal 1.2-3.8 [facility] Comment on above: Performed By: #### C BC ####[facility] Qeayxwuwxy1616 [place] [address]Dr. Flaco Branden Lymphocytes/100 WBC (Bld) 13.5 % Critically low 20.5-60.0 [facility] Comment on above: Performed By: #### C BC ####[facility] Gglpvqpvme53[address] [place] [address]Dr. Purviedith Lawrence MANUAL DIFF REQ NO Normal [facility] Comment on above: Performed By: #### C BC ####[facility] Eboalnrrsd4[address] [place] [address]Dr. Flaco Branden MCH (RBC) [Entitic mass] 29.0 pg Normal 25.9-34.0 [facility] Comment on above: Performed By: #### C BC ####[facility] Kkjsnaeohm[address] [place], [place] [address]Dr. Flaco Branden MCHC (RBC) [Mass/Vol] 32.9 g/dL Normal 29.9-35.2 [facility] Comment on above: Performed By: #### C BC ####[facility] Anufqpymwm17[address] [place], [place] [address]Dr. Purviedith Lawrence MCV (RBC) [Entitic vol] 88.2 fL Normal 80.0-94.0 [facility] Comment on above: Performed By: #### C BC ####[facility] Fgrcgwywbl[address] [place], [place] [address]Dr. Flaco Lawrence MONO # 1.0 103/ul Critically high 0.3-0.8 [facility] Comment on above: Performed By: #### C BC ####[facility] Brnhiwyrol5701 [place] [address]Dr. Purviedith Lawrence Monocytes/100 WBC (Bld) 8.8 % Normal 1.7-12.0 [facility] Comment on above: Performed By: #### C BC ####[facility] Oluwgyhqty16[address] [place], [place] [address]Dr. Flaco Lawrence NEUT # 8.4 103/ul Critically high 1.4-6.5 [facility] Comment on above: Performed By: #### C BC ####[facility] Uvzejhcsnz8554 [place] [id number]. Flaco Lawrence Neutrophils/100 WBC (Bld) 75.8 % Critically high 43.0-75.0 [facility] Comment on above: Performed By: #### C BC ####[facility] Pgacudvkjz9146 [place] [id number]. Flaco Lawrence Platelet mean volume (Bld) [Entitic vol] 10.2 fL Normal 9.5-13.5 [facility] Comment on above: Performed By: #### C BC ####[facility] Hhchjbczmv0069 [place] [id number]. Flaco Lawrence PLT 329 103/ul Normal 150-450 [facility] Comment on above: Performed By: #### C BC ####[facility] Uoglyttasr1313 [place] [id number]. Flaco Lawrence RBC 4.83 106/ul Normal 4.70-6.10 [facility] Comment on above: Performed By: #### C BC ####[facility] Tfqmdjeqaw4792 [place] [id number]. Flaco Lawrence WBC 11.0 103/ul Normal 4.0-11.0 [facility] Comment on above: Performed By: #### C BC ####[facility] Txsazynaao75[address] [place] [id number]. Flaco Lawrence PROF 14(COMP METB)on 022 Albumin [Mass/Vol] 2.6 g/dL Critically low 3.4-5.0 [facility] Comment on above: Performed By: #### C MP ####[facility] Wzrunuwdzy3662 [place] [id number]. Flaco Lawrence Albumin/Globulin [Mass ratio] 0.6 {ratio} Normal [facility] Comment on above: Performed By: #### C MP ####[facility] Iuvejwyqnh4507 [place] [id number]. Flaco Branden ALP [Catalytic activity/Vol] 58 U/L Normal 46-116 [facility] Comment on above: Performed By: #### C MP ####[facility] Hmgidbhcjp0281 [place] [id number]. Flaco Lawrence ALT [Catalytic activity/Vol] 23 U/L Normal 16-63 [facility] Comment on above: Performed By: #### C MP ####[facility] Jcuhilrhbg8[address] [place] [address]Dr. Flaco Lawrence Anion gap [Moles/Vol] 14.9 mmol/L Normal Th [facility] Comment on above: Performed By: #### C MP ####[facility] Ibdlscxwiy6127 [place] [address]Dr. Flaco Lawrence AST [Catalytic activity/Vol] 23 U/L Normal 15-37 [facility] Comment on above: Performed By: #### C MP ####[facility] Ewtpckvlxw[address] [place], [place] [address]Dr. Flaco Lawrence Bilirubin [Mass/Vol] 0.6 mg/dL Normal 0.2-1.0 [facility] Comment on above: Performed By: #### C MP ####[facility] Sgcygfhgub[address] [place], [place] [address]Dr. Flaco Lawrence Calcium [Mass/Vol] 8.8 mg/dL Normal 8.5-10.1 [facility] Comment on above: Performed By: #### C MP ####[facility] Pnhcjbjrnt[address] [place], [place] [address]Dr. Flaco Lawrence Chloride [Moles/Vol] 104 mmol/L Normal 98-107 [facility] Comment on above: Performed By: #### C MP ####[facility] Zaugmzrpvq5575 [place] [address]Dr. Flaco Lawrence CO2 [Moles/Vol] 21.3 mmol/L Normal 21.0-32.0 [facility] Comment on above: Performed By: #### C MP ####[facility] Ywpycofmkj[address] [place], [place] [address]Dr. Flaco Lawrence Creatinine [Mass/Vol] 2.08 mg/dL Critically high 0.70-1.30 [facility] Comment on above: Performed By: #### C MP ####[facility] Qydxlhqlzc1771 [place] [address]Dr. Flaco Lawrence EGFR-AF PANAMANIAN 38 mL/min/1.73m2 Critically low >=60 [facility] Comment on above: Performed By: #### C MP ####[facility] Zemtbhjvvy4995 [place] [address]Dr. Flaco Lawrence EGFR-NON AF PANAMANIAN 32 mL/min/1.73m2 Critically low >=60 [facility] Comment on above: Performed By: #### C MP ####[facility] Xlffmejrel3260 [place] [address]Dr. Flaco Lawrence Globulin (S) [Mass/Vol] 4.1 g/dL Normal [facility] Comment on above: Performed By: #### C MP ####[facility] Gumigergei5517 [place] [address]Dr. Flaco Lawrence Glucose [Mass/Vol] 87 mg/dL Normal 74-106 [facility] Comment on above: Performed By: #### C MP ####[facility] Xcysfovnki8202 [place] [address]Dr. Flaco Lawrence Potassium [Moles/Vol] 4.2 mmol/L Normal 3.5-5.1 [facility] Comment on above: Performed By: #### C MP ####[facility] Rmmrexwlgh3934 [place] [address]Dr. Flaco Lawrence Protein [Mass/Vol] 6.7 g/dL Normal 6.4-8.2 [facility] Comment on above: Performed By: #### C MP ####[facility] Kpofohyjao2215 [place] [address]Dr. Flaco Lawrence Sodium [Moles/Vol] 136 mmol/L Normal 136-145 [facility] Comment on above: Performed By: #### C MP ####[facility] Wvveqsfjib7003 [place] [address]Dr. Flaco Lawrence Urea nitrogen [Mass/Vol] 32.0 mg/dL Critically high 7.0-18.0 [facility] Comment on above: Performed By: #### C MP ####[facility] Allmmkqfbk0900 [place] [address]Dr. Flaco Lawrence Urea nitrogen/Creatinine [Mass ratio] 15.4 mg/mg Normal [facility] Comment on above: Performed By: #### C MP ####[facility] Plwhhwatje7425 [place] [address]Dr. Flaco Lawrence CBC AUTO DIFFon 08-01-2022 BASO # 0.0 103/ul Normal 0.0-0.1 [facility] Comment on above: Performed By: #### C BC ####[facility] Jvxvcobqoq[address] [place], [place] [address]Dr. Flaco Lawrence Basophils/100 WBC (Bld) 0.1 % Critically low 0.2-2.0 [facility] Comment on above: Performed By: #### C BC ####[facility] Ueehkppdpl[address] [place], [place] [address]Dr. Flaco Lawrence EO # 0.0 103/ul Normal 0.0-0.7 [facility] Comment on above: Performed By: #### C BC ####[facility] Nehthtcpgo[address] [place], [place] [address]Dr. Flaco Lawrence Eosinophils/100 WBC (Bld) 0.3 % Critically low 0.9-7.0 [facility] Comment on above: Performed By: #### C BC ####[facility] Dznsqgiooa45[address] [place], [place] [address]Dr. Flaco Lawrence Erythrocyte distribution width (RBC) [Ratio] 13.5 % Normal 11.0-15.0 [facility] Comment on above: Performed By: #### C BC ####[facility] Ytlqbxoxbv324[address] [place], [place] [address]Dr. Flaco Lawrence Hematocrit (Bld) [Volume fraction] 42.0 % Normal 42.0-54.0 [facility] Comment on above: Performed By: #### C BC ####[facility] Gqodneqhjx6[address] [place], [place] [address]Dr. Flaco Lawrence Hemoglobin (Bld) [Mass/Vol] 13.6 g/dL Critically low 14.0-18.0 [facility] Comment on above: Performed By: #### C BC ####[facility] Zubdgbmsyj6990 [place] [id number]. Flaco Lawrence IG # 0.04 10e3/ul Critically high 0.00-0.03 [facility] Comment on above: Performed By: #### C BC ####[facility] Cqmzfjfviu8898 [place] [id number]. Flaco Lawrence IG % 0.4 % Normal 0.0-0.5 [facility] Comment on above: Performed By: #### C BC ####[facility] Ryxtuepnco4237 [place] [address]Dr. Flaco Lawrence LYMPH # 1.0 103/ul Critically low 1.2-3.8 [facility] Comment on above: Performed By: #### C BC ####[facility] Vvkivqjcbe6414 [place] [address]Dr. Flaco Lawrence Lymphocytes/100 WBC (Bld) 9.3 % Critically low 20.5-60.0 [facility] Comment on above: Performed By: #### C BC ####[facility] Nbadmiflka0334 [place] [address]Dr. Flaco Lawrence MANUAL DIFF REQ NO Normal [facility] Comment on above: Performed By: #### C BC ####[facility] Faxevjkqht0803 [place] [address]Dr. Flaco Lawrence MCH (RBC) [Entitic mass] 28.7 pg Normal 25.9-34.0 [facility] Comment on above: Performed By: #### C BC ####[facility] Jilrpefxot988[address] [place], [place] [address]Dr. Flaco Lawrence MCHC (RBC) [Mass/Vol] 32.4 g/dL Normal 29.9-35.2 [facility] Comment on above: Performed By: #### C BC ####[facility] Tcmunwtepz3577 [place] [address]Dr. Flaco Lawrence MCV (RBC) [Entitic vol] 88.6 fL Normal 80.0-94.0 [facility] Comment on above: Performed By: #### C BC ####[facility] Cveltbfbnw4001 [place] [id number]. Flaco Lawrence MONO # 1.2 103/ul Critically high 0.3-0.8 [facility] Comment on above: Performed By: #### C BC ####[facility] Oxinnorqlj3216 [place] [id number]. Flaco Lawrence Monocytes/100 WBC (Bld) 11.0 % Normal 1.7-12.0 [facility] Comment on above: Performed By: #### C BC ####[facility] Ylzwzvvbsl2958 [place] [id number]. Flaco Lawrence NEUT # 8.4 103/ul Critically high 1.4-6.5 [facility] Comment on above: Performed By: #### C BC ####[facility] Byjpewdpxb13[address] [place], [place] [address]Dr. Flaco Lawrence Neutrophils/100 WBC (Bld) 78.9 % Critically high 43.0-75.0 [facility] Comment on above: Performed By: #### C BC ####[facility] Mtmhmgyabr[address] [place], [place] [address]Dr. Flaco Lawrence Platelet mean volume (Bld) [Entitic vol] 10.0 fL Normal 9.5-13.5 [facility] Comment on above: Performed By: #### C BC ####[facility] Wzgziyremm38[address] [place], [place] [address]Dr. Flaco Lawrence PLT 308 103/ul Normal 150-450 [facility] Comment on above: Performed By: #### C BC ####[facility] H[address]zfezkon[address] [place], [place] [id number]. Flaco Lawrence RBC 4.74 106/ul Normal 4.70-6.10 [facility] Comment on above: Performed By: #### C BC ####[facility] Gqorcaexkg[address] [place], [place] [id number]. Flaco Lawrence WBC 10.7 103/ul Normal 4.0-11.0 [facility] Comment on above: Performed By: #### C BC ####[facility] Nkqmtwqxfo6133 [place] [address]Dr. Flaco Lawrence PROF 14(COMP METB)on 022 Albumin [Mass/Vol] 2.6 g/dL Critically low 3.4-5.0 [facility] Comment on above: Performed By: #### C MP ####[facility] Ohvwkxxcck0362 [place] [address]Dr. Flaco Lawrence Albumin/Globulin [Mass ratio] 0.6 {ratio} Normal [facility] Comment on above: Performed By: #### C MP ####[facility] Qazjqzegnk7388 [place] [address]Dr. Flaco Lawrence ALP [Catalytic activity/Vol] 58 U/L Normal 46-116 [facility] Comment on above: Performed By: #### C MP ####[facility] Nknvpgsvgy8395 [place] [address]Dr. Flaco Lawrence ALT [Catalytic activity/Vol] 24 U/L Normal 16-63 [facility] Comment on above: Performed By: #### C MP ####[facility] Heeihgpyir8[address] [place], [place] [address]Dr. Flaco Lawrence Anion gap [Moles/Vol] 14.8 mmol/L Normal [facility] Comment on above: Performed By: #### C MP ####[facility] Obxzwsomdj478[address] [place], [place] [address]Dr. Flaco Lawrence AST [Catalytic activity/Vol] 33 U/L Normal 15-37 [facility] Comment on above: Performed By: #### C MP ####[facility] Yrixfteajn7[address] [place], [place] [address]Dr. Flaco Lawrence Bilirubin [Mass/Vol] 1.0 mg/dL Normal 0.2-1.0 [facility] Comment on above: Performed By: #### C MP ####[facility] Yassyelais5873 [place] [address]Dr. Flaco Lawrence Calcium [Mass/Vol] 8.7 mg/dL Normal 8.5-10.1 [facility] Comment on above: Performed By: #### C MP ####[facility] Swdtuayqhn8732 [place] [id number]. Flaco Lawrence Chloride [Moles/Vol] 104 mmol/L Normal 98-107 [facility] Comment on above: Performed By: #### C MP ####[facility] Ijsafcdhdj9510 [place] [id number]. Flaco Lawrence CO2 [Moles/Vol] 21.2 mmol/L Normal 21.0-32.0 [facility] Comment on above: Performed By: #### C MP ####[facility] Vdbutsgvws1299[address] [place], [place] [address]Dr. Flaco Lawrence Creatinine [Mass/Vol] 1.90 mg/dL Critically high 0.70-1.30 [facility] Comment on above: Performed By: #### C MP ####[facility] Plsyzoedos[address] [place], [place] [address]Dr. Flaco Lawrence EGFR-AF PANAMANIAN 43 mL/min/1.73m2 Critically low >=60 [facility] Comment on above: Performed By: #### C MP ####[facility] Zqqhjvense16[address] [place], [place] [address]Dr. Flaco Lawrence EGFR-NON AF PANAMANIAN 35 mL/min/1.73m2 Critically low >=60 [facility] Comment on above: Performed By: #### C MP ####[facility] Jhuuzrplrc614[address] [place], [place] [address]Dr. Flaco Lawrence Globulin (S) [Mass/Vol] 4.0 g/dL Normal [facility] Comment on above: Performed By: #### C MP ####[facility] Xpcycsvcfw7624[address] [place], [place] [address]Dr. Flaco Lawrence Glucose [Mass/Vol] 82 mg/dL Normal 74-106 [facility] Comment on above: Performed By: #### C MP ####[facility] Kdgagaaobt7364[address] [place], [place] [address]Dr. Flaco Lawrence Potassium [Moles/Vol] 4.0 mmol/L Normal 3.5-5.1 [facility] Comment on above: Performed By: #### C MP ####[facility] Fxfaazyihq1088 [place] [id number]. Flaco Lawrence Protein [Mass/Vol] 6.6 g/dL Normal 6.4-8.2 [facility] Comment on above: Performed By: #### C MP ####[facility] Sfjfiwzjmg897[address] [place], [place] [address]Dr. Flaco Lawrence Sodium [Moles/Vol] 136 mmol/L Normal 136-145 [facility] Comment on above: Performed By: #### C MP ####[facility] Jodxqmuonp4145[address] [place], [place] [address]Dr. Flaco Lawrence Urea nitrogen [Mass/Vol] 29.0 mg/dL Critically high 7.0-18.0 [facility] Comment on above: Performed By: #### C MP ####[facility] Sgioiznyqs188[address] [place], [place] [address]Dr. Flaco Lawrence Urea nitrogen/Creatinine [Mass ratio] 15.3 mg/mg Normal [facility] Comment on above: Performed By: #### C MP ####[facility] Oeysaqbgwt908[address] [place], [place] [address]Dr. Flaco Lawrence CBC AUTO DIFFon 07-31-2022 BASO # 0.0 103/ul Normal 0.0-0.1 [facility] Comment on above: Performed By: #### C BC ####[facility] Obgxngxmee637[address] [place], [place] [address]Dr. Flaco Lawrence Basophils/100 WBC (Bld) 0.2 % Normal 0.2-2.0 [facility] Comment on above: Performed By: #### C BC ####[facility] Uluuytidvc8925[address] [place], [place] [address]Dr. Flaco Lawrence EO # 0.0 103/ul Normal 0.0-0.7 [facility] Comment on above: Performed By: #### C BC ####[facility] Gbakcatdcj0760[address] [place], [place] [address]Dr. Flaco Lawrence Eosinophils/100 WBC (Bld) 0.1 % Critically low 0.9-7.0 [facility] Comment on above: Performed By: #### C BC ####[facility] Ynrtdednkm7356 [place] [address]Dr. Flaco Lawrence Erythrocyte distribution width (RBC) [Ratio] 13.7 % Normal 11.0-15.0 [facility] Comment on above: Performed By: #### C BC ####[facility] Sisgszmmle45[address] [place], [place] [address]Dr. Flaco Lawrence Hematocrit (Bld) [Volume fraction] 40.1 % Critically low 42.0-54.0 [facility] Comment on above: Performed By: #### C BC ####[facility] Omaumzzdrr023[address] [place], [place] [address]Dr. Flaco Lawrence Hemoglobin (Bld) [Mass/Vol] 13.1 g/dL Critically low 14.0-18.0 [facility] Comment on above: Performed By: #### C BC ####[facility] Ansdereplq43[address] [place], [place] [address]Dr. Flaco Lawrence IG # 0.03 10e3/ul Normal 0.00-0.03 [facility] Comment on above: Performed By: #### C BC ####[facility] Lsdxzaylsq[address] [place], [place] [address]Dr. Flaco Lawrence IG % 0.3 % Normal 0.0-0.5 [facility] Comment on above: Performed By: #### C BC ####[facility] Hkqeaqqtvp68[address] [place], [place] [address]Dr. Flaco Lawrence LYMPH # 1.7 103/ul Normal 1.2-3.8 [facility] Comment on above: Performed By: #### C BC ####[facility] Ghiepinchi2198[address] [place], [place] [address]Dr. Flaco Lawrence Lymphocytes/100 WBC (Bld) 16.2 % Critically low 20.5-60.0 [facility] Comment on above: Performed By: #### C BC ####[facility] Miiquszohq[address] [place], [place] [address]Dr. Flaco Lawrence MANUAL DIFF REQ NO Normal [facility] Comment on above: Performed By: #### C BC ####[facility] Pgwgwmxwbg0894 [place] [id number]. Flaco Branden MCH (RBC) [Entitic mass] 29.2 pg Normal 25.9-34.0 [facility] Comment on above: Performed By: #### C BC ####[facility] Ghonnyajny2833 [place] [id number]. Flaco Branden MCHC (RBC) [Mass/Vol] 32.7 g/dL Normal 29.9-35.2 [facility] Comment on above: Performed By: #### C BC ####[facility] Vryrpgwfar7206 [place] [address]Dr. Purviedith Lawrence MCV (RBC) [Entitic vol] 89.3 fL Normal 80.0-94.0 [facility] Comment on above: Performed By: #### C BC ####[facility] Vhyuvmdscw[address] [place], [place] [address]Dr. Flaco Lawrence MONO # 1.2 103/ul Critically high 0.3-0.8 [facility] Comment on above: Performed By: #### C BC ####[facility] Dwamfwcjql27[address] [place], [place] [address]Dr. Flaco Lawrence Monocytes/100 WBC (Bld) 11.1 % Normal 1.7-12.0 [facility] Comment on above: Performed By: #### C BC ####[facility] Pmsyehkpgq6[address] [place], [place] [address]Dr. Flaco Lawrence NEUT # 7.7 103/ul Critically high 1.4-6.5 [facility] Comment on above: Performed By: #### C BC ####[facility] Zs[address]rzcssp[address] [place], [place] [address]DrJeramie Lawrence Neutrophils/100 WBC (Bld) 72.1 % Normal 43.0-75.0 [facility] Comment on above: Performed By: #### C BC ####[facility] S[address]zeugqx[address] [place] [address]Dr. Flaco Lawrence Platelet mean volume (Bld) [Entitic vol] 9.9 fL Normal 9.5-13.5 [facility] Comment on above: Performed By: #### C BC ####[facility] [address]oledizyyj[address] [place] [address]Dr. Purviedith Branden PLT 263 103/ul Normal 150-450 [facility] Comment on above: Performed By: #### C BC ####[facility] Eeytvrgbkc01[address] [place] [id number]. Purviedith Lawrence RBC 4.49 106/ul Critically low 4.70-6.10 [facility] Comment on above: Performed By: #### C BC ####[facility] Qeuadvkyll3710 [place] [id number]. Purviedith Branden WBC 10.7 103/ul Normal 4.0-11.0 [facility] Comment on above: Performed By: #### C BC ####[facility] Teerdyylvu56[address] [place] [address]Dr. Flaco Lawrence PROF 14(COMP METB)on 022 Albumin [Mass/Vol] 2.8 g/dL Critically low 3.4-5.0 [facility] Comment on above: Performed By: #### C MP ####[facility] Udscuqcypj64[address] [place] [address]Dr. Flaco Lawrence Albumin/Globulin [Mass ratio] 0.8 {ratio} Normal [facility] Comment on above: Performed By: #### C MP ####[facility] Fdihtfeqoj2451 [place] [address]Dr. Flaco Lawrence ALP [Catalytic activity/Vol] 59 U/L Normal 46-116 [facility] Comment on above: Performed By: #### C MP ####[facility] Hgtopwzagw4351 [place] [address]Dr. Flaco Lawrence ALT [Catalytic activity/Vol] 30 U/L Normal 16-63 [facility] Comment on above: Performed By: #### C MP ####[facility] Qqnddtaeaz8421 [place] [address]Dr. Flaco Lawrence Anion gap [Moles/Vol] 14.8 mmol/L Normal [facility] Comment on above: Performed By: #### C MP ####[facility] Vcghqipxzs9011 [place] [id number]. Flaco Lawrence AST [Catalytic activity/Vol] 56 U/L Critically high 15-37 [facility] Comment on above: Performed By: #### C MP ####[facility] Upssrzyybz7119 [place] [id number]. Flaco Lawrence Bilirubin [Mass/Vol] 0.8 mg/dL Normal 0.2-1.0 [facility] Comment on above: Performed By: #### C MP ####[facility] Jiilqaytlx6093 [place] [address]Dr. Flaco Lawrence Calcium [Mass/Vol] 9.0 mg/dL Normal 8.5-10.1 [facility] Comment on above: Performed By: #### C MP ####[facility] Swlghxiejh58[address] [place], [place] [address]Dr. Flaco Lawrence Chloride [Moles/Vol] 106 mmol/L Normal 98-107 [facility] Comment on above: Performed By: #### C MP ####[facility] Cvtnxxfpmc120[address] [place], [place] [address]Dr. Flaco Lawrence CO2 [Moles/Vol] 24.7 mmol/L Normal 21.0-32.0 [facility] Comment on above: Performed By: #### C MP ####[facility] Aysvoudabw8[address] [place], [place] [address]Dr. Flaco Lawrnece Creatinine [Mass/Vol] 2.12 mg/dL Critically high 0.70-1.30 [facility] Comment on above: Performed By: #### C MP ####[facility] Qivjcphzbp9033 [place] [id number]. Flaco Branden EGFR-AF PANAMANIAN 38 mL/min/1.73m2 Critically low >=60 [facility] Comment on above: Performed By: #### C MP ####[facility] Kdupfdzjot3305 [place] [id number]. Purviedith Branden EGFR-NON AF PANAMANIAN 31 mL/min/1.73m2 Critically low >=60 [facility] Comment on above: Performed By: #### C MP ####[facility] Syjntzdsoc9466 [place] [address]Dr. Flaco Lawrence Globulin (S) [Mass/Vol] 3.7 g/dL Normal [facility] Comment on above: Performed By: #### C MP ####[facility] Ddmfsizegd1621 [place] [address]Dr. Flaco Lawrence Glucose [Mass/Vol] 79 mg/dL Normal 74-106 [facility] Comment on above: Performed By: #### C MP ####[facility] Jjikcqipwe5793 [place] [address]Dr. Flaco Lawrence Potassium [Moles/Vol] 3.5 mmol/L Normal 3.5-5.1 [facility] Comment on above: Performed By: #### C MP ####[facility] Mzstyqxajt[address] [place], [place] [address]Dr. Flaco Lawrence Protein [Mass/Vol] 6.5 g/dL Normal 6.4-8.2 [facility] Comment on above: Performed By: #### C MP ####[facility] Hhejvveiga059[address] [place], [place] [address]Dr. Flaco Lawrence Sodium [Moles/Vol] 142 mmol/L Normal 136-145 [facility] Comment on above: Performed By: #### C MP ####[facility] Ctlbqfaini078[address] [place], [place] [address]Dr. Flaco Branden Urea nitrogen [Mass/Vol] 32.0 mg/dL Critically high 7.0-18.0 [facility] Comment on above: Performed By: #### C MP ####[facility] Ghzeluwfnk2156 [place] [address]Dr. Flaco Branden Urea nitrogen/Creatinine [Mass ratio] 15.1 mg/mg Normal [facility] Comment on above: Performed By: #### C MP ####[facility] Lykqyxasfh1146 [place] [address]Dr. Purviedith Branden T4on 07-31-2022 T4 [Mass/Vol] 7.10 ug/dL Normal 4.50-12.10 [facility] Comment on above: Performed By: #### T SH, T4 ####[facility] Dvivhlpywd9470 [place] [address]Dr. Flaco Lawrence TSHon 07-31-2022 TSH 0.871 uIU/mL Normal 0.358-3.740 [facility] Comment on above: Performed By: #### T SH, T4 ####[facility] Rdsielttzq317[address] [place], [place] [address]Dr. Flaco Lawrence VIT B12 AND FOLATEon 022 Cobalamin (Vitamin B12) [Mass/Vol] 130.0 pg/mL Critically low 193.0-986.0 [facility] Comment on above: Performed By: #### B 12FOL ####[facility] Tfjzkhttpu9[address] [place], [place] [address]Dr. Flaco Lawrence FOLATE 6.20 ng/mL Critically low 8.60-58.90 [facility] Comment on above: Performed By: #### B 12FOL ####[facility] Vyilwmddac6360[address] [place], [place] [address]Dr. Flaco Lawrence AMMONIAon 07-30-2022 Ammonia (P) [Mass/Vol] ug/dL Critically low 11-32 [facility] Comment on above: Performed By: #### A MM ####[facility] Zsulyumqzo5677[address] [place], [place] [address]Dr. Flaco Lawrence CBC AUTO DIFFon 07-30-2022 BASO # 0.0 103/ul Normal 0.0-0.1 [facility] Comment on above: Performed By: #### C BC ####[facility] Gcphimbuop0428[address] [place], [place] [address]Dr. Flaco Lawrence Basophils/100 WBC (Bld) 0.1 % Critically low 0.2-2.0 [facility] Comment on above: Performed By: #### C BC ####[facility] Mviyjwzfsr61[address] [place], [place] [address]Dr. Flaco Lawrence EO # 0.0 103/ul Normal 0.0-0.7 [facility] Comment on above: Performed By: #### C BC ####[facility] Hdxbjixods9425 [place] [id number]. Flaco Lawrence Eosinophils/100 WBC (Bld) 0.1 % Critically low 0.9-7.0 [facility] Comment on above: Performed By: #### C BC ####[facility] Ajvzkemuze4108 [place] [address]Dr. Flaco Lawrence Erythrocyte distribution width (RBC) [Ratio] 13.5 % Normal 11.0-15.0 [facility] Comment on above: Performed By: #### C BC ####[facility] Vmdwjsrncl18[address] [place], [place] [address]Dr. Flaco Lawrence Hematocrit (Bld) [Volume fraction] 37.8 % Critically low 42.0-54.0 [facility] Comment on above: Performed By: #### C BC ####[facility] Texeudfxlu8437[address] [place], [place] [address]Dr. Flaco Lawrence Hemoglobin (Bld) [Mass/Vol] 12.8 g/dL Critically low 14.0-18.0 [facility] Comment on above: Performed By: #### C BC ####[facility] Hgpzehfhor9037[address] [place], [place] [address]Dr. Flaco Lawrence IG # 0.06 10e3/ul Critically high 0.00-0.03 [facility] Comment on above: Performed By: #### C BC ####[facility] Mgzhnorfgq296[address] [place], [place] [address]Dr. Flaco Lawrence IG % 0.4 % Normal 0.0-0.5 [facility] Comment on above: Performed By: #### C BC ####[facility] Bfzqagtmzl69[address] [place], [place] [address]Dr. Flaco Lawrence LYMPH # 1.0 103/ul Critically low 1.2-3.8 [facility] Comment on above: Performed By: #### C BC ####[facility] Kutiwpejhz[address] [place], [place] [address]Dr. Flaco Lawrence Lymphocytes/100 WBC (Bld) 7.0 % Critically low 20.5-60.0 [facility] Comment on above: Performed By: #### C BC ####[facility] Qnvvgugwjm6973 [place] [address]Dr. Flaco Lawrence MANUAL DIFF REQ NO Normal [facility] Comment on above: Performed By: #### C BC ####[facility] Fjzeuzybfo7330 [place] [id number]. Flaco Lawrence MCH (RBC) [Entitic mass] 29.6 pg Normal 25.9-34.0 [facility] Comment on above: Performed By: #### C BC ####[facility] Lhevmxqvyk2422 [place] [address]Dr. Flaco Lawrence MCHC (RBC) [Mass/Vol] 33.9 g/dL Normal 29.9-35.2 [facility] Comment on above: Performed By: #### C BC ####[facility] Gfcuxxidbh54[address] [place], [place] [address]Dr. Flaco Lawrence MCV (RBC) [Entitic vol] 87.3 fL Normal 80.0-94.0 [facility] Comment on above: Performed By: #### C BC ####[facility] Dsfnejsqhp0525[address] [place], [place] [address]Dr. Flaco Lawrence MONO # 1.4 103/ul Critically high 0.3-0.8 [facility] Comment on above: Performed By: #### C BC ####[facility] Fxwsgkwmnx9[address] [place], [place] [address]Dr. Flaco Lawrence Monocytes/100 WBC (Bld) 9.2 % Normal 1.7-12.0 [facility] Comment on above: Performed By: #### C BC ####[facility] Yacztctwfc[address] [place], [place] [address]DrJeramie Lawrence NEUT # 12.3 103/ul Critically high 1.4-6.5 [facility] Comment on above: Performed By: #### C BC ####[facility] Ziynvimxir5[address] [place], [place] [address]Dr. Flaco Lawrence Neutrophils/100 WBC (Bld) 83.2 % Critically high 43.0-75.0 [facility] Comment on above: Performed By: #### C BC ####[facility] Xwccxlbqvs2404 [place] [id number]. Flaco Lawrence Platelet mean volume (Bld) [Entitic vol] 10.4 fL Normal 9.5-13.5 [facility] Comment on above: Performed By: #### C BC ####[facility] Jftdarowxr8868 [place] [id number]. Flaco Lawrence PLT 266 103/ul Normal 150-450 [facility] Comment on above: Performed By: #### C BC ####[facility] Mxlhgbmafk3693 [place] [id number]. Flaco Lawrence RBC 4.33 106/ul Critically low 4.70-6.10 [facility] Comment on above: Performed By: #### C BC ####[facility] Tvctclvljm3201 [place] [id number]. Flaco Branden WBC 14.8 103/ul Critically high 4.0-11.0 [facility] Comment on above: Performed By: #### C BC ####[facility] Dpfrbihajm6547 [place] [id number]. Flaco Branden CRPon 07-30-2022 CRP 12.2 mg/dL Critically high <=1.0 [facility] Comment on above: Performed By: #### C RP ####[facility] Deldpivghs7490 [place] [id number]. Purviedith Branden CT FOOT RT WO CONon 07-30-[address] FOOT RT WO CON Normal [facility] MRI BRAIN WO CONon 2 MRI BRAIN WO CON Normal [facility] PROF 14(COMP METB)on 022 Albumin [Mass/Vol] 2.7 g/dL Critically low 3.4-5.0 [facility] Comment on above: Performed By: #### C MP ####[facility] Fajkksvinz7366 [place] [id number]. Purviedith Lawrence Albumin/Globulin [Mass ratio] 0.7 {ratio} Normal [facility] Comment on above: Performed By: #### C MP ####[facility] Zyfztwcunv6677 [place] [address]Dr. Flaco Lawrence ALP [Catalytic activity/Vol] 61 U/L Normal 46-116 [facility] Comment on above: Performed By: #### C MP ####[facility] Oxdnlxnilk1865 [place] [address]Dr. Flaco Lawrence ALT [Catalytic activity/Vol] 27 U/L Normal 16-63 [facility] Comment on above: Performed By: #### C MP ####[facility] Zyqltlzjyb0396 [place] [address]Dr. Flaco Lawrence Anion gap [Moles/Vol] 16.1 mmol/L Normal [facility] Comment on above: Performed By: #### C MP ####[facility] Qaalqdhdts99[address] [place], [place] [address]Dr. Flaco Lawrence AST [Catalytic activity/Vol] 39 U/L Critically high 15-37 [facility] Comment on above: Performed By: #### C MP ####[facility] Hvutllgyep[address] [place], [place] [address]Dr. Flaco Lawrence Bilirubin [Mass/Vol] 1.1 mg/dL Critically high 0.2-1.0 [facility] Comment on above: Performed By: #### C MP ####[facility] Dmuixbaytt1645 [place] [address]Dr. Flaco Branden Calcium [Mass/Vol] 9.0 mg/dL Normal 8.5-10.1 [facility] Comment on above: Performed By: #### C MP ####[facility] Ifovgykpmz1023 [place] [address]Dr. Flaco Lawrence Chloride [Moles/Vol] 103 mmol/L Normal 98-107 [facility] Comment on above: Performed By: #### C MP ####[facility] Nfcpwyzvcm85[address] [place], [place] [address]Dr. Flaco Branden CO2 [Moles/Vol] 21.8 mmol/L Normal 21.0-32.0 [facility] Comment on above: Performed By: #### C MP ####[facility] Wdaakwzimv1411 [place] [address]Dr. Flaco Lawrence Creatinine [Mass/Vol] 2.03 mg/dL Critically high 0.70-1.30 [facility] Comment on above: Performed By: #### C MP ####[facility] Srllzlkqhh3339 [place] [id number]. Flaco Lawrence EGFR-AF PANAMANIAN 39 mL/min/1.73m2 Critically low >=60 [facility] Comment on above: Performed By: #### C MP ####[facility] Pfvhucruus1531 [place] [address]Dr. Flaco Lawrence EGFR-NON AF PANAMANIAN 33 mL/min/1.73m2 Critically low >=60 [facility] Comment on above: Performed By: #### C MP ####[facility] Dmdyzezzca8485 [place] [address]Dr. Flaco Lawrence Globulin (S) [Mass/Vol] 3.9 g/dL Normal [facility] Comment on above: Performed By: #### C MP ####[facility] Pqdqzbturw5726 [place] [address]Dr. Flaco Lawrence Glucose [Mass/Vol] 122 mg/dL Critically high 74-106 [facility] Comment on above: Performed By: #### C MP ####[facility] Uqumegvjtq0188 [place] [address]Dr. Flaco Lawrence Potassium [Moles/Vol] 2.9 mmol/L Critically low 3.5-5.1 [facility] Comment on above: Performed By: #### C MP ####[facility] Edaymsgllj8473 [place] [address]Dr. Flaco Lawrence Protein [Mass/Vol] 6.6 g/dL Normal 6.4-8.2 [facility] Comment on above: Performed By: #### C MP ####[facility] Wfstzlieck17[address] [place], [place] [address]Dr. Flaco Lawrence Sodium [Moles/Vol] 139 mmol/L Normal 136-145 [facility] Comment on above: Performed By: #### C MP ####[facility] Cqyzzmfwgh3424 [place] [address]Dr. Flaco Lawrence Urea nitrogen [Mass/Vol] 30.0 mg/dL Critically high 7.0-18.0 [facility] Comment on above: Performed By: #### C MP ####[facility] Rsnbgbxcbv415[address] [place], [place] [address]Dr. Flaco Lawrence Urea nitrogen/Creatinine [Mass ratio] 14.8 mg/mg Normal [facility] Comment on above: Performed By: #### C MP ####[facility] Ampqasjlpv9[address] [place], [place] [address]Dr. Flaco Lawrence URIC ACID SERUMon 07-30-2022 Urate [Mass/Vol] 8.8 mg/dL Critically high 3.5-7.2 [facility] Comment on above: Performed By: #### U DAVID ####[facility] Tseigwdhkf52[address] [place], [place] [address]Dr. Flaco Lawrence AMMONIAon 07-29-2022 Ammonia (P) [Mass/Vol] ug/dL Critically low 11-32 [facility] Comment on above: Performed By: #### A MM ####[facility] Umzfnegrkq317[address] [place], [place] [address]Dr. Flaco Lawrence BLOOD GASES BTYon 07-29-2022 02 MODE ROOM AIR Normal [facility] Comment on above: Performed By: #### A BG ####[facility] Sbbsbgsuvk75[address] [place], [place] [address]Dr. Flaco Lawrence ALLENS TEST Positive Normal [facility] Comment on above: Performed By: #### A BG ####[facility] Kvbryjrhji4720[address] [place], [place] [address]Dr. Flaco Lawrence Base excess Calc (Bld) [Moles/Vol] -3.7000 mmol/L Critically low -2.0-2.0 [facility] Comment on above: Performed By: #### A BG ####[facility] Jyeyaxcyzo036[address] [place], [place] [address]Dr. Flaco Lawrence BIPAP PRESSURE Normal [facility] Comment on above: Performed By: #### A BG ####[facility] Iqfxjoxeyo9807 [place] [address]Dr. Flaco Lawrence CPAP Normal [facility] Comment on above: Performed By: #### A BG ####[facility] Krtzqzrsfl0083 [place] [address]Dr. Flaco Lawrence FIO2 Normal [facility] Comment on above: Performed By: #### A BG ####[facility] Kbfaphdnco38[address] [place], [place] [address]Dr. Flaco Lawrence HCO3 (Bld) [Moles/Vol] 20.4 mmol/L Critically low 22.0-26. 0 [facility] Comment on above: Performed By: #### A BG ####[facility] Rihenzywee[address] [place], [place] [address]Dr. Flaco Lawrence LPM Normal [facility] Comment on above: Performed By: #### A BG ####[facility] Twqdbffktk6[address] [place], [place] [address]Dr. Flaco Lawrence MINUTE VOLUME Normal [facility] Comment on above: Performed By: #### A BG ####[facility] Hkstoozhhg8[address] [place], [place] [address]Dr. Flaco Lawrence Oxygen (Bld) [Partial pressure] 73.0 mm[Hg] Critically low 80.0-100.0 [facility] Comment on above: Performed By: #### A BG ####[facility] Zlrrnsfyen2357[address] [place], [place] [address]Dr. Flaco Lawrence Oxygen saturation in Blood 95.5 % Normal 95.0-100.0 [facility] Comment on above: Performed By: #### A BG ####[facility] Uvryqmeaxl0687[address] [place], [place] [address]Dr. Flaco Lawrence PCO2 29.7 mmHg Critically low 35.0-45.0 [facility] Comment on above: Performed By: #### A BG ####[facility] Qsgsxsqznq30[address] [place], [place] [address]Dr. Flaco Lawrence PEEP Normal [facility] Comment on above: Performed By: #### A BG ####[facility] Mcbadrrwqb7642 [place] [address]Dr. Flaco Lawrence pH (Bld) 7.445 [pH] Normal 7.350-7.450 [facility] Comment on above: Performed By: #### A BG ####[facility] Vhrpprjbra6426 [place] [address]Dr. Flaco Lawrence PIP Normal [facility] Comment on above: Performed By: #### A BG ####[facility] Tftjwbnsiq3631 [place] [address]Dr. Flaco Lawrence PS Normal [facility] Comment on above: Performed By: #### A BG ####[facility] Niulfvizte4331 [place] [address]Dr. Flaco Lawrence PUNCTURE SITE RR Normal [facility] Comment on above: Performed By: #### A BG ####[facility] Ujseflnuhb942[address] [place], [place] [address]Dr. Flaco Lawrence RATE [facility] Comment on above: Performed By: #### A BG ####[facility] Gweowngbjk7[address] [place], [place] [address]Dr. Flaco Lawrence VENT MODE [facility] Comment on above: Performed By: #### A BG ####[facility] Hyrwmmieec4215[address] [place], [place] [address]Dr. Flaco Lawrence [place] [facility] Comment on above: Performed By: #### A BG ####[facility] Lkqjqpyzop9147[address] [place], [place] [address]Dr. Flaco Lawrence CBC W MANUAL DIFFon 07-29-20 22 ATYPICAL LYMPH # Normal [facility] Comment on above: Performed By: #### C BCMAN ####[facility] Fradsynuhy6918 [place] [address]Dr. Flaco Lawrence ATYPICAL LYMPH % Normal [facility] Comment on above: Performed By: #### C BCMAN ####[facility] Uypvdxcejq8318 [place] [address]Dr. Flaco Lawrence BAND # 0.6 103/ul Critically high 0.0-0.3 [facility] Comment on above: Performed By: #### C BCMAN ####[facility] Dlgwnqfpee3867 [place] [id number]. Yilan Lawrence BAND % 4 % Normal 0-5 [facility] Comment on above: Performed By: #### C BCMAN ####[facility] Ewprgchybc0875 [place] [id number]. Yilan Lawrence BASOM # 0.00 103/ul Normal 0.00-0.10 [facility] Comment on above: Performed By: #### C BCMAN ####[facility] Frutufmhly2440 [place] [id number]. Yiedith Lawrence BASOM % 0.0 % Critically low 0.2-2.0 [facility] Comment on above: Performed By: #### C BCMAN ####[facility] Ebejzcwgnb3862 [place] [address]Dr. Yilan Lawrence BLAST # Normal [facility] Comment on above: Performed By: #### C BCGAYATHRI ####[facility] Puqlgiuwmn[address] [place], [place] [address]Dr. Yilan Lawrence BLAST % Normal [facility] Comment on above: Performed By: #### C BCMAN ####[facility] Rgskrgceyl[address] [place], [place] [address]Dr. Flaco Lawrence CORRECTED WBC Normal 4.0-11.0 [facility] Comment on above: Performed By: #### C BCMAN ####[facility] P[address]hvgtcsx[address] [place], [place] [address]Dr. Yiedith Lawrence EOS # 0.00 103/ul Normal 0.00-0.70 [facility] Comment on above: Performed By: #### C BCMAN ####[facility] Cdlxjiexie3[address] [place], [place] [address]Dr. Yilan Lawrence EOS% 0.0 % Critically low 0.9-7.0 [facility] Comment on above: Performed By: #### C BCMAN ####[facility] Yqxedgswzd8[address] [place], [place] [address]Dr. Yilan Lawrence HCT 43.8 % Normal 42.0-54.0 [facility] Comment on above: Performed By: #### C [place] ####[facility] Oceloccixb0562 [place], [place] [address]Md. Flaco Lawrence HGB 14.6 g/dl Normal 14.0-18.0 [facility] Comment on above: Performed By: #### C [place] ####[facility] Gljhfhzzzs6067 [place], [place] [address]Zb. Flaco Lawrence LYMPHM # 0.72 103/ul Critically low 1.20-3.80 [facility] Comment on above: Performed By: #### C [place] ####[facility] Fxrvzooxwp5897 [place], [place] [address]Ml. Flaco Lawrence LYMPHM% 5.0 % Critically low 20.5-60.0 [facility] Comment on above: Performed By: #### C [place] ####[facility] Bbvaivwwqc0038 [place], [place] [address]Xl. Flaco Lawrence MCH 29.6 pg Normal 25.9-34.0 [facility] Comment on above: Performed By: #### C [place] ####[facility] Zxfjltntrs6701 [place], [place] [address]Go. Flaco Lawrence MCHC 33.3 g/dl Normal 29.9-35.2 [facility] Comment on above: Performed By: #### C [place] ####[facility] [facility] K[address]slvnsdz1090 [place], [place] [address]Qg. Flaco Lawrence MCV 88.7 fL Normal 80.0-94.0 [facility] Comment on above: Performed By: #### C CLEVELAND ####[facility] Mmtqodjwcv5200 [place], [place] [address]Lq. Flaco Lawrence METAMYELOCYTE # Normal [facility] Comment on above: Performed By: #### C CLEVELAND ####[facility] Brevibiapo0702 [place], [place] [address]Nq. Flaco Lawrence METAMYELOCYTE % Normal [facility] Comment on above: Performed By: #### C CLEVELAND ####[facility] Afypvfpmpy4807 [place] [id number]. Flaco Lawrence MONOM# 0.14 103/ul Critically low 0.30-0.80 [facility] Comment on above: Performed By: #### C CLEVELAND ####[facility] Fcuoshqxxz7420 [place] [id number]. Flaco Lawrence MONOM% 1.0 % Critically low 1.7-12.0 [facility] Comment on above: Performed By: #### C CLEVELAND ####[facility] Gpiqemoxlh1494 [place] [id number]. Flaco Lawrence MPV 10.6 fL Normal 9.5-13.5 [facility] Comment on above: Performed By: #### C CLEVELAND ####[facility] Qenruzndyk[address] [place], [place] [address]Dr. Flaco Lawrence MYELOCYTE # Normal [facility] Comment on above: Performed By: #### C CLEVELAND ####[facility] Kyfnysxyxw[address] [place], [place] [id number]. Flaco Lawrence MYELOCYTE % Normal [facility] Comment on above: Performed By: #### C CLEVELAND ####[facility] Hwiyofwhxq[address] [place], [place] [address]Dr. Flaco Lawrence NRBC Normal [facility] Comment on above: Performed By: #### C CLEVELAND ####[facility] Xstzlqferx[address] [place], [place] [id number]. Flaco Lawrence PLT 267 103/ul Normal 150-450 [facility] Comment on above: Performed By: #### C CLEVELAND ####[facility] Zyucgkeqpj6132 [place] [id number]. Flaco Lawrence RBC 4.94 106/ul Normal 4.70-6.10 [facility] Comment on above: Performed By: #### C CLEVELAND ####[facility] Dclnurworo9370 [place] [id number]. Flaco Lawrence RDW 13.6 % Normal 11.0-15.0 [facility] Comment on above: Performed By: #### C CLEVELAND ####[facility] Ieeauqhcoj1074 [place] [id number]. Flaco Lawrence SEG # 12.96 103/ul Critically high 1.40-6.50 [facility] Comment on above: Performed By: #### C BCGAYATHRI ####[facility] Hoxpmfmzem0902 [place] [id number]. Flaco Lawrence SEG % 90.0 % Critically high 43.0-75.0 [facility] Comment on above: Performed By: #### C BCMAN ####[facility] Iwsesighbn0856 [place] [id number]. Flaco Lawrence TOXIC GRANULATION 2+ Normal [facility] Comment on above: Performed By: #### C CLEVELAND ####[facility] Robjpdyorq3821 [place] [id number]. Flaco Lawrence WBC 14.4 103/ul Critically high 4.0-11.0 [facility] Comment on above: Performed By: #### C CLEVELAND ####[facility] Mfrihwuetr23[address] [place] [address]Dr. Fl[address] Lawrence CT ABD/PELVIS WO CONon 07-29 CT ABD/PELVIS WO CON Normal [facility] CT HEAD WO CONon 07-29-2022 CT HEAD WO CON Normal [facility] CULTURE URINEon 07-29-2022 CULTURE URINE Culture Observations : NO GROWTH. Normal [facility] Comment on above: Performed By: #### U RCX ####[facility] Chxpyttchz6559 [place] [id number]. Purviedith Lawrence ER URINE PROFILEon 2 Bilirubin Ql (U) MODERATE Abnormal NEGATIVE [facility] Comment on above: Performed By: #### EVETTE RAMON ####[facility] Urxufelubq0171 [place] [id number]. Flaco Lawrence Clarity (U) CLEAR Normal CLEAR [facility] Comment on above: Performed By: #### Riccardo SENA UMICRO ####[facility] Gpdmurvmxh0594 [place] [id number]. Flaco Lawrence Color (U) YELLOW Normal YELLOW [facility] Comment on above: Performed By: #### EVERARDO RAOMNRO ####[facility] Flwkbwnqcb464[address] [place], [place] [address]Dr. Flaco CURRY A micrscopic examination will be performed if indicated. Normal [facility] Comment on above: Performed By: #### EVERARDO RAMONRO ####[facility] Sssjrlgbyo2647 [place] [address]Dr. Flaco Lawrence Glucose Ql (U) Negative Normal NEGATIVE [facility] Comment on above: Performed By: #### EVERARDO RAMONRO ####[facility] Ronqzvjvap06[address] [place], [place] [address]Dr. Flaco Lawrence Hemoglobin Ql (U) MODERATE Abnormal NEGATIVE [facility] Comment on above: Performed By: #### EVERARDO RAMONRO ####[facility] Ldlwqjddpu28[address] [place], [place] [address]Dr. Flaco Lawrence Ketones Ql (U) 40 mg/dl Abnormal NEGATIVE [facility] Comment on above: Performed By: #### EVERARDO RAMONRO ####[facility] Aedswncics2668[address] [place], [place] [address]Dr. Flaco Lawrence LEUKOCYTES Negative Normal NEGATIVE [facility] Comment on above: Performed By: #### EVERARDO RAMONRO ####[facility] Gqaixmqaue913[address] [place], [place] [address]Dr. Flaco Lawrence Nitrite Ql (U) Negative Normal NEGATIVE [facility] Comment on above: Performed By: #### EVERARDO RAMONRO ####[facility] Omjqvhgqda477[address] [place], [place] [address]Dr. Flaco Lawrence pH (U) 5.5 [pH] Normal 5-9 [facility] Comment on above: Performed By: #### EVERARDO RAMONRO ####[facility] Jolejgjsbf3705[address] [place], [place] [address]Dr. Flaco Lawrence Protein (U) [Mass/Vol] 100 mg/dL Abnormal NEGAT LIANNE/ TRACE [facility] Comment on above: Performed By: #### EVERARDO RAMONRO ####[facility] Pglagvzwfb7436 [place] [address]Dr. Flaco Lawrence SPEC GRAVITY >=1.030 Abnormal 1.005-<=1.02 5 [facility] Comment on above: Performed By: #### EVETTE RAMON ####[facility] Hytyvluwfa5934 [place] [address]Dr. Flaco Lawrence UR MICRO IND INDICATED Normal [facility] Comment on above: Performed By: #### EVETTE RAMON ####[facility] Ajormucngg3171 [place] [address]Dr. Flaco Lawrence Urobilinogen Qn (U) 1.0 {Tuan'U}/dL Normal 0.2 - 1. 0 [facility] Comment on above: Performed By: #### EVETTE RAMON ####[facility] Nezsjfzkth4246 [place] [address]Dr. Flaco Lawrence LACTATE/LACTIC ACIDon 2021 Lactate [Moles/Vol] 2.3 mmol/L Critically high 0.4-1.9 [facility] Comment on above: Performed By: #### L ACT ####[facility] Vvxpvdhqkq20[address] [place], [place] [address]Dr. Flaco Lawrence PROF 14(COMP METB)on 022 Albumin [Mass/Vol] 2.9 g/dL Critically low 3.4-5.0 [facility] Comment on above: Performed By: #### C MP ####[facility] Dpnrpigoye24[address] [place], [place] [address]Dr. Flaco Lawrence Albumin/Globulin [Mass ratio] 0.7 {ratio} Normal [facility] Comment on above: Performed By: #### C MP ####[facility] Didhelsuml215[address] [place], [place] [address]Dr. Flaco Lawrence ALP [Catalytic activity/Vol] 78 U/L Normal 46-116 [facility] Comment on above: Performed By: #### C MP ####[facility] Sasgtlknpv015[address] [place], [place] [address]Dr. Flaco Lawrence ALT [Catalytic activity/Vol] 33 U/L Normal 16-63 [facility] Comment on above: Performed By: #### C MP ####[facility] Ayoywpeqip9042 [place] [address]Dr. Purviedith Branden Anion gap [Moles/Vol] 14.5 mmol/L Normal [facility] Comment on above: Performed By: #### C MP ####[facility] Itxnpvhscj1834 [place] [address]Dr. Purviedith Lawrence AST [Catalytic activity/Vol] 38 U/L Critically high 15-37 [facility] Comment on above: Performed By: #### C MP ####[facility] Vvgenjfngi899[address] [place], [place] [address]Dr. Flaco Lawrence Bilirubin [Mass/Vol] 1.6 mg/dL Critically high 0.2-1.0 [facility] Comment on above: Performed By: #### C MP ####[facility] Cecxlsvcol1428[address] [place], [place] [address]Dr. Flaco Lawrence Calcium [Mass/Vol] 9.2 mg/dL Normal 8.5-10.1 [facility] Comment on above: Performed By: #### C MP ####[facility] Prhylnqrkj8050[address] [place], [place] [address]Dr. Flaco Lawrence Chloride [Moles/Vol] 104 mmol/L Normal 98-107 [facility] Comment on above: Performed By: #### C MP ####[facility] Zlotkyzghn3809[address] [place], [place] [address]Dr. Flaco Lawrence CO2 [Moles/Vol] 23.5 mmol/L Normal 21.0-32.0 [facility] Comment on above: Performed By: #### C MP ####[facility] Kyfsswvjpn2367[address] [place], [place] [address]Dr. Flaco Lawrence Creatinine [Mass/Vol] 1.95 mg/dL Critically high 0.70-1.30 [facility] Comment on above: Performed By: #### C MP ####[facility] Vaxsdmitrf513[address] [place], [place] [address]Dr. Flaco Lawrence EGFR-AF PANAMANIAN 41 mL/min/1.73m2 Critically low >=60 [facility] Comment on above: Performed By: #### C MP ####[facility] Tpolxzccip6275 [place] [address]Dr. Flaco Branden EGFR-NON AF PANAMANIAN 34 mL/min/1.73m2 Critically low >=60 [facility] Comment on above: Performed By: #### C MP ####[facility] Rddxzogljf9711 [place] [address]Dr. Flaco Lawrence Globulin (S) [Mass/Vol] 4.3 g/dL Normal [facility] Comment on above: Performed By: #### C MP ####[facility] Mirxvjewwu1735[address] [place], [place] [address]Dr. Flaco Lawrence Glucose [Mass/Vol] 169 mg/dL Critically high 74-106 [facility] Comment on above: Performed By: #### C MP ####[facility] Bniimzuwoi147348 [address] [place], [place] [address]Dr. Flaco Lawrence Potassium [Moles/Vol] 4.0 mmol/L Normal 3.5-5.1 [facility] Comment on above: Performed By: #### C MP ####[facility] Egyhgtnxku587348 [address] [place], [place] [address]Dr. Flaco Lawrence Protein [Mass/Vol] 7.2 g/dL Normal 6.4-8.2 [facility] Comment on above: Performed By: #### C MP ####[facility] Wsgkvafxlg1500[address] [place], [place] [address]Dr. Flaco Lawrence Sodium [Moles/Vol] 138 mmol/L Normal 136-145 [facility] Comment on above: Performed By: #### C MP ####[facility] Wchcdzxyyz8055[address] [place], [place] [address]Dr. Flaco Lawrence Urea nitrogen [Mass/Vol] 29.0 mg/dL Critically high 7.0-18.0 [facility] Comment on above: Performed By: #### C MP ####[facility] Sizbfhqeks3537[address] [place], [place] [address]Dr. Flaco Lawrence Urea nitrogen/Creatinine [Mass ratio] 14.9 mg/mg Normal [facility] Comment on above: Performed By: #### C MP ####[facility] Hlomettbbw757[address] [place], [place] [address]Dr. Flaco Lawrence URINE MICROSCOPIC ONLYon AMORPHOUS CRYSTALS MODERATE Normal [facility] Comment on above: Performed By: #### Riccardo SENA UMICRO ####[facility] Qsszxfxgkr7857[address] [place], [place] [address]Dr. Purviedith Branden BACTERIA MODERATE Abnormal NONE SEEN [facility] Comment on above: Performed By: #### Riccardo SENA UMICRO ####[facility] Linypvplcy2539[address] [place], [place] [address]Dr. Flaco Lawrence Bacteria identified Cx Nom (U) INDICATED Normal [facility] Comment on above: Performed By: #### Riccardo SENA UMICRO ####[facility] Juoonqbddj895248 [address] [place], [place] [address]Dr. Flaco Lawrence CAST SEEN Abnormal NONE SEEN [facility] Comment on above: Performed By: #### Riccardo SENA UMICRO ####[facility] Zimwungtwv733[address] [place], [place] [address]Dr. Flaco Lawrence COARSE GRANULAR CAST RARE Normal [facility] Comment on above: Performed By: #### Riccardo SENA UMICRO ####[facility] Tralfncrmj3799[address] [place], [place] [address]Dr. Flaco Lawrence Crystals LM Nom (Urine sed) SEEN Abnormal NONE SEEN [facility] Comment on above: Performed By: #### Riccardo SENA UMICRO ####[facility] Nzauemliwe9509[address] [place], [place] [address]Dr. Flaco Lawrence Epithelial cells LM Ql (Urine sed) RARE Normal NONE SEEN /RARE [facility] Comment on above: Performed By: #### Riccardo SENA UMICRO ####[facility] Uazkfpziji946[address] [place], [place] [address]Dr. Flaco Lawrence MUCOUS TRACE Abnormal NONE SEEN [facility] Comment on above: Performed By: #### Riccardo SENA UMICRO ####[facility] Sqvyxmorzs6542 [place] [address]Dr. Flaco Lawrence RBC 0-2 Normal 0-2 [facility] Comment on above: Performed By: #### EVETTE RAMON ####[facility] Rxiogsikrb9100 [place] [address]Dr. Flaco Lawrence WBC 0-2 Abnormal NONE SEEN [facility] Comment on above: Performed By: #### EVETTE RAMON ####[facility] Zbtcjzxwkj406[address] [place], [place] [address]Dr. Flaco Lawrence BNPon 07-28-2022 Natriuretic peptide B (Bld) [Mass/Vol] 258.0 pg/mL Normal <=900.0 [facility] Comment on above: Performed By: #### C MP, BNP, HSTROPN ####[facility] Eucjabteho5997[address] [place], [place] [address]Dr. Flaco Lawrence CBC W MANUAL DIFFon 07-28-20 22 ATYPICAL LYMPH # 0.21 103/ul Normal [facility] Comment on above: Performed By: #### Corina GUTHRIE ####[facility] Psoublrayx2670[address] [place], [place] [address]Dr. Flaco Lawrence ATYPICAL LYMPH % 1 % Normal [facility] Comment on above: Performed By: #### Corina GUTHRIE ####[facility] Qwkrkgrthl3332[address] [place], [place] [address]Dr. Flaco Lawrence BAND # 0.0 103/ul Normal 0.0-0.3 [facility] Comment on above: Performed By: #### C CLEVELAND ####[facility] Audaltdkfp87364[address] [place], [place] [address]Dr. Flaco Lawrence BAND % 0 % Normal 0-5 [facility] Comment on above: Performed By: #### C CLEVELAND ####[facility] Flsxdxexkd0808[address] [place], [place] [address]Dr. Flaco Lawrence BASOM # 0.00 103/ul Normal 0.00-0.10 [facility] Comment on above: Performed By: #### C C[place]AND ####[facility] Nrxpatkvfl24[address] [place], [place] [address]Dr. Flaco Lawrence BASOM % 0.0 % Critically low 0.2-2.0 [facility] Comment on above: Performed By: #### C BCMAN ####[facility] Cggvasamzv3131 [place] [id number]. Flaco Lawrence BLAST # Normal [facility] Comment on above: Performed By: #### C BCMAN ####[facility] Pyswlsfqix8499 [place] [address]Dr. Flaco Lawrence BLAST % Normal [facility] Comment on above: Performed By: #### C BCGAYATHRI ####[facility] Gthhntivhh2806 [place] [address]Dr. Flaco Lawrence CORRECTED WBC Normal 4.0-11.0 [facility] Comment on above: Performed By: #### C BCGAYATHRI ####[facility] Pmzzxkfbna88[address] [place], [place] [address]Dr. Flaco Lawrence EOS # 0.00 103/ul Normal 0.00-0.70 [facility] Comment on above: Performed By: #### C BCGAYATHRI ####[facility] Tqtfxmegon9420 [place] [address]Dr. Flaco Lawrence EOS% 0.0 % Critically low 0.9-7.0 [facility] Comment on above: Performed By: #### C BCGAYATHRI ####[facility] Ecyhillypy4277 [place] [address]Dr. Flaco Lawrence HCT 48.8 % Normal 42.0-54.0 [facility] Comment on above: Performed By: #### C BCGAYATHRI ####[facility] Nfgywrqktt235[address] [place], [place] [address]Dr. Flaco Lawrence HGB 16.2 g/dl Normal 14.0-18.0 [facility] Comment on above: Performed By: #### C BCGAYATHRI ####[facility] Lwqgmofzhw3117 [place] [address]Dr. Flaco Lawrence LYMPHM # 0.62 103/ul Critically low 1.20-3.80 [facility] Comment on above: Performed By: #### C BCGAYATHRI ####[facility] Janlyxqdoj0407 [place], [place] [address]Nq. Flaco Lawrence LYMPHM% 3.0 % Critically low 20.5-60.0 [facility] Comment on above: Performed By: #### C CLEVELAND ####[facility] Hqltaxwatj1162 [place], [place] [address]Pb. Flaco Lawrence MCH 29.5 pg Normal 25.9-34.0 [facility] Comment on above: Performed By: #### C CLEVELAND ####[facility] Dhyossifyr2234 [place] [id number]. Flaco Lawrence MCHC 33.2 g/dl Normal 29.9-35.2 [facility] Comment on above: Performed By: #### C CLEVELAND ####[facility] Smssfnqvki7756 [place] [id number]. Flaco Lawrence MCV 88.7 fL Normal 80.0-94.0 [facility] Comment on above: Performed By: #### C CLEVELAND ####[facility] Dvctnjutoc4860 [place] [id number]. Flaco Lawrence METAMYELOCYTE # Normal [facility] Comment on above: Performed By: #### C CLEVELAND ####[facility] Mglsquelqa8944 [place] [id number]. Flaco Lawrence METAMYELOCYTE % Normal [facility] Comment on above: Performed By: #### C CLEVELAND ####[facility] Ztvelpdnop5125 [place] [id number]. Flaco Lawrence MONOM# 2.28 103/ul Critically high 0.30-0.80 [facility] Comment on above: Performed By: #### C CLEVELAND ####[facility] Uwpotvtjhi2486 [place] [id number]. Flaco Lawrence MONOM% 11.0 % Normal 1.7-12.0 [facility] Comment on above: Performed By: #### C CLEVELAND ####[facility] Gjwacujjua9879 [place] [id number]. Flcao Lawrence MPV 10.5 fL Normal 9.5-13.5 [facility] Comment on above: Performed By: #### C CLEVELAND ####[facility] Bijnpedrha6638 [place], [place] [address]Hx. Flaco Lawrence MYELOCYTE # Normal [facility] Comment on above: Performed By: #### C CLEVELAND ####[facility] Sxftnjmcdm2203 [place], [place] [address]Cl. Flaco Lawrence MYELOCYTE % Normal [facility] Comment on above: Performed By: #### C CLEVELAND ####[facility] Esmndrswdr3346 [place] [id number]. Flaco Lawrence NRBC Normal [facility] Comment on above: Performed By: #### C CLEVELAND ####[facility] Crebmsukbi1034 [place] [id number]. Flaco Lawrence PLT 317 103/ul Normal 150-450 [facility] Comment on above: Performed By: #### C CLEVELAND ####[facility] Zvqwxenpqk8771 [place] [id number]. Flaco Lawrence RBC 5.50 106/ul Normal 4.70-6.10 [facility] Comment on above: Performed By: #### C CLEVELAND ####[facility] Yirjnhyraa4572 [place] [id number]. Flaco Lawrence RDW 13.6 % Normal 11.0-15.0 [facility] Comment on above: Performed By: #### C CLEVELAND ####[facility] Vuywvydcjy8066 [place] [id number]. Flaco Lawrence SEG # 17.59 103/ul Critically high 1.40-6.50 [facility] Comment on above: Performed By: #### C CLEVELAND ####[facility] Nxsiqyxkpn6727 [place] [id number]. Flaco Lawrence SEG % 85.0 % Critically high 43.0-75.0 [facility] Comment on above: Performed By: #### C CLEVELAND ####[facility] Jteqjqwzvy0803 [place] [id number]. Flaco Lawrence WBC 20.7 103/ul Critically high 4.0-11.0 [facility] Comment on above: Performed By: #### C BCMAN ####[facility] Nkdzajqaie4400 [place] [id number]. Flaco Lawrence CULTURE BLOODon 07-28-2022 Microscopic examination of blood, culture Culture Observations: NO GROWTH AT 5 DAYS. Normal [facility] Comment on above: Performed By: #### B LDCX2 ####[facility] Wgbrdkdtfp0270 [place] [id number]. Flaco Lawrence Microscopic examination of blood, culture Culture Observations: NO GROWTH AT 5 DAYS. Normal [facility] Comment on above: Performed By: #### B LDCX1 ####[facility] Qleawjjchv1432 [place] [address]Dr. Flaco Lawrence Covid-19 PCR (CVDTB)on 06-30 SARS-CoV-2 (COVID-19) RNA MARCO ANTONIO+probe Ql (Unsp spec) Not detected Normal NOT DETECTED [facility] Comment on above: Result Comment: When [...] for this test is supported by the [place] of [employer] and Human Service's declaration that [...] be used). Performed By: #### C VDTBH ####[facility] Puhxzlsmlk7897 [place] [id number]. Flaco Lawrence INFLUENZA A AND B AGon 07-28 INFLUENZA A AG Negative Normal NEGATIVE SEE COMMENT [facility] Comment on above: Performed By: #### I NFLUAB ####[facility] Phgpbgztrx6950 [place] [address]Dr. Flaco Lawrence INFLUENZA B AG Negative Normal NEGATIVE SEE COMMENT [facility] Comment on above: Performed By: #### I NFLUAB ####[facility] Pbbcgzhxei1750 [place] [address]Dr. Flaco Lawrence INTERNAL CONTROLS Within Normal Limits Normal Wi thin Normal Limits [facility] Comment on above: Performed By: #### I NFLUAB ####[facility] Kspperspyn3247 [place] [address]Dr. Flaco Lawrence LACTATE/LACTIC ACIDon 2021 Lactate [Moles/Vol] 2.6 mmol/L Critically high 0.4-1.9 [facility] Comment on above: Performed By: #### L ACT ####[facility] Vtlsqfoikw59[address] [place], [place] [address]Dr. Flaco Lawrence PROF 14(COMP METB)on 022 Albumin [Mass/Vol] 3.7 g/dL Normal 3.4-5.0 [facility] Comment on above: Performed By: #### C MP, BNP, HSTROPN ####[facility] Ipmmlsdqpg226[address] [place], [place] [address]Dr. Flaco Lawrence Albumin/Globulin [Mass ratio] 0.8 {ratio} Normal [facility] Comment on above: Performed By: #### C MP, BNP, HSTROPN ####[facility] Lfqxgffizb5887 [place] [address]Dr. Flaco Lawrence ALP [Catalytic activity/Vol] 95 U/L Normal 46-116 [facility] Comment on above: Performed By: #### C MP, BNP, HSTROPN ####[facility] Zlcyybukli2646 [place] [address]Dr. Flaco Lawrence ALT [Catalytic activity/Vol] 38 U/L Normal 16-63 [facility] Comment on above: Performed By: #### C MP, BNP, HSTROPN ####[facility] Zupjvwftye8609 [place] [address]Dr. Flaco Lawrence Anion gap [Moles/Vol] 16.8 mmol/L Normal [facility] Comment on above: Performed By: #### C MP, BNP, HSTROPN ####[facility] Vecdrzitjx9352 [place] [address]Dr. Flaco Lawrence AST [Catalytic activity/Vol] 44 U/L Critically high 15-37 [facility] Comment on above: Performed By: #### C MP, BNP, HSTROPN ####[facility] Bisvvuqrxb4635 [place] [address]Dr. Flaco Lawrence Bilirubin [Mass/Vol] 2.7 mg/dL Critically high 0.2-1.0 [facility] Comment on above: Performed By: #### C MP, BNP, HSTROPN ####[facility] Xgpfgwayhg899[address] [place], [place] [address]Dr. Flaco Lawrence Calcium [Mass/Vol] 9.8 mg/dL Normal 8.5-10.1 [facility] Comment on above: Performed By: #### C MP, BNP, HSTROPN ####[facility] Srsdojvshm20[address] [place], [place] [address]Dr. Flaco Lawrence Chloride [Moles/Vol] 102 mmol/L Normal 98-107 [facility] Comment on above: Performed By: #### C MP, BNP, HSTROPN ####[facility] Evzufrhgcg9178[address] [place], [place] [address]Dr. Flaco Lawrence CO2 [Moles/Vol] 23.0 mmol/L Normal 21.0-32.0 [facility] Comment on above: Performed By: #### C MP, BNP, HSTROPN ####[facility] Yakvtyrcle[address] [place], [place] [address]Dr. Flaco Lawrence Creatinine [Mass/Vol] 2.22 mg/dL Critically high 0.70-1.30 [facility] Comment on above: Performed By: #### C MP, BNP, HSTROPN ####[facility] Hycfuffusp34[address] [place], [place] [address]Dr. Flaco Lawrence EGFR-AF PANAMANIAN 36 mL/min/1.73m2 Critically low >=60 [facility] Comment on above: Performed By: #### C MP, BNP, HSTROPN ####[facility] Yjwggbeetm7433 [place] [address]Dr. Flaco Lawrence EGFR-NON AF PANAMANIAN 29 mL/min/1.73m2 Critically low >=60 [facility] Comment on above: Performed By: #### C MP, BNP, HSTROPN ####[facility] Dckqjdkrcu[address] [place], [place] [address]Dr. Flaco Lawrence Globulin (S) [Mass/Vol] 4.7 g/dL Normal [facility] Comment on above: Performed By: #### C MP, BNP, HSTROPN ####[facility] [address] [place], [place] [address]Dr. Flaco Lawrence Glucose [Mass/Vol] 145 mg/dL Critically high 74-106 [facility] Comment on above: Performed By: #### C MP, BNP, HSTROPN ####[facility] [address] [place], [place] [address]Dr. Flaco Lawrence Potassium [Moles/Vol] 3.8 mmol/L Normal 3.5-5.1 [facility] Comment on above: Performed By: #### C MP, BNP, HSTROPN ####[facility] K[address] [place], [place] [address]Dr. Flaco Lawrence Protein [Mass/Vol] 8.4 g/dL Critically high 6.4-8.2 [facility] Comment on above: Performed By: #### C MP, BNP, HSTROPN ####[facility] I[address] [place], [place] [address]Dr. Flaco Lawrence Sodium [Moles/Vol] 138 mmol/L Normal 136-145 [facility] Comment on above: Performed By: #### C MP, BNP, HSTROPN ####[facility] Dfzuywvchx[address] [place], [place] [address]Dr. Flaco Lawrence Urea nitrogen [Mass/Vol] 29.0 mg/dL Critically high 7.0-18.0 [facility] Comment on above: Performed By: #### C MP, BNP, HSTROPN ####[facility] [address] [place], [place] [address]Lw. Flaco Lawrence Urea nitrogen/Creatinine [Mass ratio] 13.1 mg/mg Normal [facility] Comment on above: Performed By: #### C MP, BNP, HSTROPN ####[facility] [address] [place], [place] [address]Px. Flaco Lawrence TROPONIN, HIGH SENSITIVITYon 07-28-2022 HSTROP 13.6 pg/mL Normal 4.0-76.1 [facility] Comment on above: Result Comment: CUT- OFF POINTS HAVE BEEN ESTABLISHED BASED ON THE FOURTH UNIVERSAL DEFINITIONS OF MYOCARDIALINFARCTION. THE UPPER REFERENCE LIMIT (URL) OF TROPONIN, DEFINED THE 99TH PERCENTILE OFcTnI DISTRIBUTION IN A REFERENCE POPULATION, HAS BEEN CONFIRMED THE DECISION THRESHOLDFOR MT DIAGNOSIS. Performed By: #### C MP, BNP, HSTROPN ####[facility] [address] [place], [place] [address]Js. Flaco Lawrence XR CHEST 1 Von 07-28-2022 XR CHEST 1 V Normal [facility] Covid-19 PCR (CVDTBH)on 06-29 SARS-CoV-2 (COVID-19) RNA MARCO ANTONIO+probe Ql (Unsp spec) Not detected Normal NOT DETECTED [facility] Comment on above: Result Comment: This test is not yet approved or cleared by the [place] FDA. When there are no FDA-approved or cleared tests available, and other criteria are met, FDA can make tests available under an emergency access mechanism called an Emergency Use Authorization (EUA). The EUA for this test is supported by the [place] of Health and Human Service's (HHS's) declaration [...] with SARS-CoV-2. Performed By: #### C VDTB ####[facility] [address] [place] [address]Dr. Flaco Lawrence PROF CHEM 8 (BAS METB)on Anion gap [Moles/Vol] 11.2 mmol/L Normal [facility] Comment on above: Performed By: #### B MP ####[facility] [address] [place], [place] [address]Dr. Flaco Lawrence Calcium [Mass/Vol] 8.7 mg/dL Normal 8.5-10.1 [facility] Comment on above: Performed By: #### B MP ####[facility] Q[address] [place], [place] [address]Dr. Flaco Lawrence Chloride [Moles/Vol] 108 mmol/L Critically high 98-107 [facility] Comment on above: Performed By: #### B MP ####[facility] F[address] [place], [place] [address]Dr. Flaco Lawrence CO2 [Moles/Vol] 26.9 mmol/L Normal 21.0-32.0 [facility] Comment on above: Performed By: #### B MP ####[facility] K[address]xlsyxor[address] [place], [place] [address]Dr. Flaco Lawrence Creatinine [Mass/Vol] 1.77 mg/dL Critically high 0.70-1.30 [facility] Comment on above: Performed By: #### B MP ####[facility] [address] [place], [place] [address]Dr. Flaco Lawrence EGFR-AF PANAMANIAN 46 mL/min/1.73m2 Critically low >=60 [facility] Comment on above: Performed By: #### B MP ####[facility] Gottq[address] [place], [place] [address]Dr. Flaco Lawrence EGFR-NON AF PANAMANIAN 38 mL/min/1.73m2 Critically low >=60 [facility] Comment on above: Performed By: #### B MP ####[facility] [address] [place], [place] [address]Rx. Flaco Lawrence Glucose [Mass/Vol] 89 mg/dL Normal 74-106 [facility] Comment on above: Performed By: #### B MP ####[facility] [address] [place], [place] [address]Hv. Flaco Lawrence Potassium [Moles/Vol] 4.1 mmol/L Normal 3.5-5.1 [facility] Comment on above: Performed By: #### B MP ####[facility] [address] [place], [place] [address]Wa. Flaco Lawrence Sodium [Moles/Vol] 142 mmol/L Normal 136-145 [facility] Comment on above: Performed By: #### B MP ####[facility] [address] [place], [place] [address]Ya. Flaco Lawrence Urea nitrogen [Mass/Vol] 15.0 mg/dL Normal 7.0-18.0 [facility] Comment on above: Performed By: #### B MP ####[facility] [address] [place], [place] [address]Ha. Flaco Lawrence Urea nitrogen/Creatinine [Mass ratio] 8.5 mg/mg Normal [facility] Comment on above: Performed By: #### B MP ####[facility] [address] [place], [place] [address]Px. Flaco Lawrence XR FOOT RT MIN 3 VIEWSon XR FOOT RT MIN 3 VIEWS Normal [facility] Vital Signs Date Time Vital Sign Value Performing Clinician Bill woodard 08-05-2024 15:050 Body height 177.8 cm Joe Jang PA-C [facility] 08-05-2024 15:050 Body mass index (BMI) [Ratio] 20.81 kg/m2 Joe Jang PA-C Work Phone: [facility] 08-05-2024 15:050 Body weight 65.77 kg Joe Jang PA-C Work Phone: [facility] 08-05-2024 15:21-0500 Diastolic blood pressure 107 mm[Hg] Joe Jang PA-C Work Phone: [facility] 08-05-2024 15:21-0500 Heart rate 66 /min Joe Jang PA-C Work Phone: [facility] 08-05-2024 15:21-0500 Systolic blood pressure 153 mm[Hg] Joe Jang PA-C Work Phone: [facility] 09-18-2023 13:33-0500 Body height 170.2 cm Mel Juarez MD Work Phone: [facility] 09-18-2023 13:33-0500 Body mass index (BMI) [Ratio] 23.49 kg/m2 Mel Juarez MD Work Phone: [facility] 09-18-2023 13:33-0500 Body weight 68.04 kg Mel Juarez MD Work Phone: [facility] 09-18-2023 13:33-0500 Diastolic blood pressure 79 mm[Hg] Mel Juarez MD Work Phone: [facility] 09-18-2023 13:33-0500 Heart rate 61 /min Mel Juarez MD Work Phone: [facility] 09-18-2023 13:33-0500 Systolic blood pressure 121 mm[Hg] Mel Juarez MD Work Phone: [facility] 05-12-2023 13:51-0400 Blood Pressure Location Baljit DOSHI [facility] [place] 05-12-2023 13:51-0400 Diastolic blood pressure 74 mm[Hg] Baljit DOSHI [facility] [place] 05-12-2023 13:51-0400 Heart rate 70 /min Baljit DOSHI [facility] [place] 05-12-2023 13:51-0400 Respiratory rate 16 /min Baljit DOSHI [facility] [place] 05-12-2023 13:51-0400 Systolic blood pressure 120 mm[Hg] Baljit GLENDA [facility] [place] Encounters Encounter Date Encounter Type Care Provider Facility Start: 09-05-2024 Evaluation and manag ement of inpatient RAMESH LAWRENCE [facility] Start: 09-05-2024 Evaluation and manag ement of inpatient NORBERTO RAY [facility] Start: 09-03-2024 Evaluation and manag ement of inpatient MAXX HALE [facility] Start: 09-03-2024 End: 09-05-2024 Evaluation and management of inpatient ODELL RODRÍGUEZ [facility] Start: 08-27-2024 End: 08-28-2024 Refill Joe Jang PA-C Work Phone: [facility] Comment on above: Mild dementia with a gitation, unspecified dementia type (CMS-HCC) Start: 08-19-2024 ambulatory [facility] Start: 08-05-2024 End: 08-05-2024 Office outpatient visit 25 minutes Joe Jang PA-C Work Phone: [facility] Comment on above: Parkinsonism, unspec ified Parkinsonism type (CMS-HCC) (Primary Dx); Mild dementia with agitation, unspecified dementia type (CMS-HCC) Start: 08-05-2024 End: 08-05-2024 ambulatory LIBRADO Ash [facility] Start: 08-05-2024 ambulatory [facility] Start: 07-28-2024 ambulatory [facility] Start: 07-20-2024 ambulatory [facility] Start: 06-17-2024 ambulatory [facility] Start: 06-01-2024 End: 06-01-2024 ambulatory [facility] Start: 04-28-2024 ambulatory [facility] Start: 03-23-2024 ambulatory [facility] Start: 03-18-2024 ambulatory SPENCER WALSHUBB [facility] Start: 02-12-2024 End: 02-12-2024 ambulatory [facility] Start: 12-08-2023 End: 12-08-2023 ambulatory [facility] Start: 09-18-2023 End: 09-18-2023 Office outpatient visit 25 minutes Mel Juarez MD Work Phone: [facility] Comment on above: Parkinsonism, unspec ified Parkinsonism type (Primary Dx); Tardive dyskinesia; Mild dementia with agitation, unspecified dementia type (CMS-HCC); Gait instability; Urinary retention; Spondylosis of cervical spine; Sundowning; Chronic bilateral low back pain, unspecified whether sciatica present; Insomnia due to medical condition Start: 09-18-2023 End: 09-18-2023 ambulatory [facility] Start: 09-14-2023 End: 09-14-2023 ambulatory ROBIN [facility] Start: 09-10-2023 End: 09-10-2023 ambulatory [facility] Start: 05-27-2023 End: 05-28-2023 ambulatory Baljit DOSHI Facility:CD:[id number] Start: 05-12-2023 End: 05-13-2023 ambulatory Baljit DOSHI Facility:[facility] Start: 05-12-2023 End: 05-12-2023 Patient encounter procedure Baljit DOSHI [facility] Start: 02-09-2023 End: 02-10-2023 Evaluation and management of inpatient DR LIBRADO HELM . Facility:[facility] Start: 01-20-2023 End: 01-21-[address] LIBRADO HELM . Facility:[facility] Start: 01-06-2023 End: 01-07-[address] LIBRADO HELM . Facility:[facility] Start: 12-16-2022 End: 12-17-[address] LIBRADO HELM . Facility:[facility] Start: 11-17-2022 End: 11-18-2022 Evaluation and management of inpatient DR LIBRADO HELM . Facility:[facility] Start: 11-06-2022 End: 11-07-2022 ambulatory MANOLO BOLAND Facility:[facility] Start: 10-16-2022 End: 10-17-2022 ambulatory MANOLO KRYSTIAN Facility:[facility] Start: 09-25-2022 Encounter for preprocedural laboratory examination [facility] Start: 09-25-2022 End: 09-25-[address] FABIAN KENNEDY Facility:[facility] Start: 09-22-2022 End: 09-23-2022 ambulatory [facility] Facility:[facility] Start: 09-22-2022 End: 09-23-2022 Encounter for preprocedural laboratory examination [facility] Facility:[facility] Start: 09-15-2022 Encounter for preprocedural cardiovascular examination [facility] Start: 09-11-2022 End: 09-12-2022 ambulatory [facility] Facility:[facility] Start: 08-15-2022 End: 08-15-2022 ambulatory JOVANI UMANZOR . Facility:[facility] Start: 07-30-2022 End: 08-02-2022 Evaluation and management of inpatient DR LIBRADO HELM . Facility:[facility] Start: 07-24-2022 End: 07-25-2022 ambulatory [facility] Facility:[facility] Start: 07-17-2022 Encounter for preprocedural cardiovascular examination [facility] Start: 07-17-2022 Encounter for preprocedural laboratory examination [facility] Start: 07-15-2022 End: 07-16-2022 ambulatory [facility] Facility:[facility] Start: 07-15-2022 End: 07-16-2022 Encounter for preprocedural cardiovascular examination [facility] Facility:[facility] Start: 06-18-2022 End: 06-19-[address] LIBRADO HELM . Facility: Procedures Date Procedure Procedure Detail Performing Clinician Start: 02-12-2024 Follow-up visit Follow-up MEL MONTENEGRO Start: 09-18-2023 Adult depression scr eening assessment Mel Juarez MD Work Phone: Start: 09-19-2020 Excisional biopsy Karlos HAIRPinky Comment on above: mid back Start: 06-20-2020 Laparoscopic cholecystectomy Baljit GLENDA Start: 09-28-2019 Brachytherapy of [place] using fluoroscopic guidance Baljit GLENDA Start: 07-30-2015 Excision of lumbar intervertebral disc Baljit DOSHI Comment on above: L3-L5 Start: 08-14-2014 Colonoscopy Baljit NI LL Start: 02-04-2008 Colonoscopy Baljit NI LL Bone graft Baljit HAIRPinky Comment on above: right great toe Skin graft material (substance) Baljit GLENDA Comment on above: right great toe Vasectomy Baljit GLENDA Plan of Treatment Date Care Activity Detail Author Start: 08-05-2025 Adult BMI Screening Adult BMI Screening [facility] Start: 08-05-2025 Tobacco Screening Tobacco Screening [facility] Start: 02-03-2025 End: 02-03-2025 Patient encounter procedure 02/03/2025 2:00 PM EDT Office Visit [facility] [address] [facility] [place] [address] Joe Jang, PA-C [address] [place] [address] [facility] Start: 09-18-2024 Adult BMI Screening Adult BMI Screening [facility] Start: 09-18-2024 Depression Screening Depression Screening [facility] Start: 09-18-2024 Tobacco Screening Tobacco Screening [facility] Start: 05-29-2024 COVID-19 Vaccine ( season) COVID-19 Vaccine () [facility] Start: 05-29-2024 Influenza vaccination Influenza Vaccine [facility] Start: 02-12-2024 End: 02-12-2024 Patient encounter procedure 02/12/2024 2:00 PM EDT Office Visit [facility] [address] [place] [address] Mel Juarez MD [address] [place] [address], [address] [address] [facility] Start: 05-29-2023 COVID-19 Vaccine ( season) COVID-19 Vaccine ( season) [facility] Start: 05-29-2023 Influenza vaccination Influenza Vaccine [facility] Start: 02-08-2016 Fall Risk Screening Fall Risk Screening [facility] Start: 1970 Administration of varicella zoster vaccine Zoster (Shingles) Vaccine (1 of 2) [facility] Start: 1970 DTaP,Tdap and Td Vaccines (1 - Tdap) DTaP,Tdap and Td Vaccines (1 - Tdap) [facility] Start: 1951 Medicare Annual Wellness Visit Medicare Annual Wellness Visit [facility] Immunizations Immunization Date Immunization Notes Care Provider Fa cility 09-15-2021 Influenza Vaccine, Quadrivalent, Adjuvanted Mel Juarez MD Work Phone: [facility] 09-15-2021 influenza virus vaccine, unspecified formulation Mel Juarez MD Work Phone: [facility] 07-22-2021 SARS-CoV-2 (COVID-19 ) mRNA-1273 vaccine Baljit DOSHI [facility] [place] Comment on above: Result Comment: 2022: [id number] 12-19-2020 SARS-CoV-2 (COVID-19 ) mRNA-1273 vaccine Baljit DOSHI [facility] [place] 11-22-2020 SARS-CoV-2 (COVID-19 ) mRNA-1273 vaccine Baljit DOSHI [facility] [place] 06-05-2020 influenza, seasonal, injectable Mel Juarez MD Work Phone: [facility] 05-28-2020 pneumococcal conjuga te vaccine, 13 valent Mel Juarez MD Work Phone: [facility] IPPLEX Payers Date Payer Category Payer Medicare A[employer] MEDICARE A ETNA MEDICARE PLAN (HMO) [id number] 2021-Present [phone] [address] [place] [address] [id number] 2021 Medicare HMO [employer] MEDICARE [id number] 1959 Medicare [id number] 1950 Unknown [id number] [id number] 1951 Unknown [id number] 2.16.840.1.810545.3.579.2.59 1951 Unknown [id number] 2.16.840.1.000858.3.579.2.59 1951 Unknown [id number] 2.16.840.1.484940.3.579.2.59 1951 Unknown [id number] 2.16.840.1.371051.3.579.2.593 1951 Unknown [id number] 2.16.840.1.645382.3.579.2.593 1951 Unknown [id number] 2.16.840.1.052062.3.579.2.593 1951 Unknown [id number] 2.16.840.1.046554.3.579.2.593 1951 Unknown [id number] 2.16.840.1.405331.3.579.2.593 1951 Unknown [id number] 2.16.840.1.990133.3.579.2.593 1951 Unknown [id number] 2.16.840.1.532940.3.579.2.593 1951 Unknown [id number] 2.16.840.1.014545.3.579.2.593 1951 Unknown [id number] 2.16.840.1.893853.3.579.2.593 1951 Unknown [id number] 2.16.840.1.498521.3.579.2.593 1951 Unknown [id number] 2.16.840.1.282083.3.579.2.593 1951 Unknown [id number] 2.16.840.1.867323.3.579.2.727 1951 Unknown [id number] 2.16.840.1.331899.3.579.2.727 1951 Unknown [id number] 2.16.840.1.702476.3.579.2.1286 1951 Unknown [id number] 2.16.840.1.698927.3.579.2.1286 1951 Unknown [id number] 2.16.840.1.048643.3.579.2.1286 Social History Date Type Detail Facility Start: 05-12-2023 Tobacco smoking status Ex-smoker (fi nding) [facility] Tobacco smoking status Never [facility] [place] Start: 07-03-2020 End: 11-08-2020 Sex Assigned At Male Ildefonso Anglin [facility] Start: 12-17-2022 Tobacco smoking stat NHIS Never smoked tobacco [facility] Start: 12-17-2022 Tobacco use and exposure Smokeless tobacco non-user [facility] Start: 09-27-2023 End: 08-05-2024 Alcohol intake Ex-drinker (finding) [facility] Start: 07-03-2020 End: 11-08-2020 History of Social function [facility] How often to you hav e a drink containing alcohol? Never [facility] Start: 1950 Sex Assigned At Not on file P [facility] Start: 06-22-2020 Sex Male (finding) [facility] Functional Status Date Assessment Result Facility 05-12-2023 Functional Status N/A General [facility] Clinical Notes 05-12-2023 to 09-05-2024 Joe Jang PA-C - 08/05/2024 3:00 PM Lisa Juarez MD - 09/18/2023 1:30 PM EST Note Date & Type Note Facility 09-05-2024 Note Attestation signed by Norberto Ray MD at 09/05/2024 4:36 PM By using the attestations below, the signing clinician agrees that I have read and verify that the documentation has been personally reviewed by me and ensure that the documentation accurately reflects the encounter. GC: I personally saw this patient on the day of the encounter, performed the reynoso portion(s) of the service and participated in the management and confirm the resident's documentation. Please note there may be an additional personal documentation from me. Additional Comments: none Cardiology Progress Note Subjective Interval history: Patient seen at bedside this morning. No overnight events. Patient resting comfortably in bed. Hemodynamically stable.No chest pain. Subjective: Efraín Johnson is a 74 y.o. male with past medical history of hypertension, hyperlipidemia, chronic kidney disease, Parkinson's disease presenting for syncope. Patient has prior history of recurrent syncopal episodes and follows with [facility] cardiology clinic outpatient. Patient was on Holter monitoring outpatient which shows sinus bradycardia with second-degree AV block type I which was initially nocturnal and asymptomatic, however patient now presenting with fall due to syncopal episode. Per family, witnessed patient walking in the kitchen then moments later heard a big thump in which the patient fell. Patient does not recall much of the incident, however does report regaining consciousness by the time EMS came. On examination, patient is alert, awake, oriented X3 however does have difficulty reporting details of the syncopal event. Troponin negative. Patient denies any chest pain, shortness of breath, lightheadedness, dizziness at this time. Prior treadmill stress test showed normal heart rate and blood pressure in response to exercise. S/p loop recorder implant 09/10/2023 with all device checks since implant not showing any significant arrhythmia. Objective Current Facility-Administered Medications: acetaminophen (Tylenol) tablet 650 mg, 650 mg, oral, q6h PRN, Maxx Hale MD, 650 mg at 09/05/24 09 albuterol 90 mcg/actuation inhaler 2 puff, 2 puff, inhalation, q4h PRN, Maxx Hale MD amLODIPine (Norvasc) tablet 10 mg, 10 mg, oral, Once Daily, Maxx Hale MD, 10 mg at 09/05/24 09 aspirin EC tablet 81 mg, 81 mg, oral, Daily, Maxx Hale MD, 81 mg at 09/05/24 09 atropine syringe 0.5 mg, 0.5 mg, intravenous, PRN, Maxx Hale MD baclofen (Lioresal) tablet 10 mg, 10 mg, oral, Daily PRN, Maxx Hale MD carbidopa-levodopa (Sinemet CR) 25-100 mg ER tablet 1 tablet, 1 tablet, oral, TID AC, Maxx Hale MD, 1 tablet at 09/05/24 1134 carbidopa-levodopa (Sinemet) 25-100 mg per tablet 1 tablet, 1 tablet, oral, TID, Maxx Hale MD, 1 tablet at 09/05/24 1133 [Held by provider] heparin (porcine) injection 5,000 Units, 5,000 Units, subcutaneous, q8h HENRY, Maxx Hale MD, 5,000 Units at 09/04/24 0650 hydrALAZINE (Apresoline) tablet 25 mg, 25 mg, oral, TID, Ramesh Lawrence MD, 25 mg at 09/05/24 0955 melatonin tablet 5 mg, 5 mg, oral, Nightly PRN, Maxx Hale MD, 5 mg at 09/04/242014 memantine (Namenda) tablet 5 mg, 5 mg, oral, BID, Maxx Hale MD, 5 mg at 09/05/24 09 potassium chloride CR (Klor-Con M20) ER tablet 20 mEq, 20 mEq, oral, Daily, Maxx Hale MD, 20 mEq at 09/05/24 0955 sennosides-docusate sodium (Jaye-Colace) 8.6-50 mg per tablet 1 tablet, 1 tablet, oral, Daily PRN, Maxx Hale MD Insert peripheral IV, , , Once AND Saline lock IV, , , Once AND sodium chloride flush 10 mL, 10 mL, intravenous, q8h PRN, Maxx Hale MD Objective: Patient Vitals for the past 24 hrs: BP Temp Temp src Pulse Resp SpO2 Weight 09/05/24 1131 -- 36.5 ???C (97.7 ???F) Temporal -- -- -- -- 09/05/24 0800 (!) 135/92 36.7 ???C (98.1 ???F) Temporal 80 18 95 % -- 09/05/24 0500 -- -- -- -- -- -- 71 kg (156 lb 8.4 oz) 09/05/24 0400 133/88 36.9 ???C (98.4 ???F) Temporal 60 19 94 % -- 09/05/24 0038 (!) 148/91 -- -- 71 21 90 % -- 09/04/24 1957 (!) 124/91 36.7 ???C (98.1 ???F) Temporal 81 19 97 % -- 09/04/24 1700 (!) 109/94 -- -- 71 20 95 % -- 09/04/24 1600 131/89 36.7 ???C (98.1 ???F) Temporal 67 23 96 % -- Physical Examination: GENERAL: AOx3, in no acute distress. HEAD: Atraumatic, normocephalic. EYES: DAYANNA, EOMI. NECK: No JVD present. CARDIAC: Bradycardic. No murmur, rubs, or gallops. RESPIRATORY: CTAB, no increased effort of breathing. ABDOMEN: Soft, nontender, nondistended. EXTREMITIES: No lower extremity edema, peripheral pulses are 2+ bilaterally. NEURO: No focal deficits Relevant Lab Results Encounter Date: 09/03/24 ECG 12 lead Result Value Ventricular Rate 76 At (more content not included)... [facility] 09-04-2024 Note Hospital Medicine Daily Progress Note - 09/04/2024 12:17 PM; Room: [address] [place] [address] Admission: 09/03/2024 7:05 PM; Length of stay: 1 days THE HOSPITALIST TEAM PREFERS TO USE [employer] CHAT FOR NON-URGENT COMMUNICATION 7AM-7PM. IF I DO NOT RESPOND WITHIN 20 MINUTES OR URGENT MATTERS, PLEASE CALL THROUGH THE CORROSION CONTROL SPECIALIST. FROM 7PM-7AM, PLEASE PAGE [phone](COVR). Code Status: Full Code Barriers to Discharge: tentative pacemaker placement on Thursday? Expected Discharge Date: 1-2 days Discharge Destination: home Overview Patient is seen for evaluation and management of syncopal episode. Subjective Patient seen and examined in the morning. He was resting in bed. In no acute distress. Vital signs reviewed. Other than mild hypertension, vitals are stable. Physical Exam Visit Vitals BP (!) 134/93 Pulse 62 Temp 36.8 ???C (98.2 ???F) (Temporal) Resp 18 Intake/Output Summary (Last 24 hours) at 09/04/2024 1217 Last data filed at 09/04/2024 0932 Gross per 24 hour Intake 540 ml Output -- Net 540 ml Physical Exam Vitals reviewed. Constitutional: General: He is not in acute distress. Appearance: He is not ill-appearing or toxic-appearing. HENT: Head: Normocephalic and atraumatic. Mouth/Throat: Mouth: Mucous membranes are moist. Eyes: General: No scleral icterus. Extraocular Movements: Extraocular movements intact. Pupils: Pupils are equal, round, and reactive to light. Cardiovascular: Rate and Rhythm: Normal rate and regular rhythm. Pulmonary: Effort: Pulmonary effort is normal. No respiratory distress. Breath sounds: No stridor. Abdominal: General: There is no distension. Palpations: Abdomen is soft. There is no mass. Tenderness: There is no abdominal tenderness. There is no guarding. Musculoskeletal: Right lower leg: No edema. Left lower leg: No edema. Skin: Findings: No rash. Neurological: Mental Status: He is alert. He is disoriented. Cranial Nerves: No cranial nerve deficit. Comments: Unable to give me location or month Psychiatric: Mood and Affect: Mood normal. Behavior: Behavior normal. Thought Content: Thought content normal. Judgment: Judgment normal. Estimated body mass index is 22.4 kg/m??? as calculated from the following: Height as of this encounter: 1.778 m (5' 10 ). Weight as of this encounter: 70.8 kg (156 lb 1.4 oz). Active Inpatient Problems Principal Problem: Cardiac syncope Active Problems: Gait instability GERD (gastroesophageal reflux disease) HTN (hypertension) Hyperlipidemia Chronic kidney disease, stage 3b (CMS/HCC) Dementia (CMS/HCC) Parkinson disease (CMS/HCC) Adenocarcinoma of prostate (CMS/HCC) Symptomatic bradycardia Sinus pause Atrial fibrillation (CMS/HCC) Assessment and Plan 1. Cardiac syncope 2. Symptomatic bradycardia 3. Sinus pauses - Vitals stable and no bradycardia noted since admission - Cardiology following, appreciate recommendations - Tentative pacemaker placement tomorrow - NPO at midnight 4. Parkinson's disease - Continue home sinemet 5. Dementia - Holding donepezil as it may cause bradycardia 6. CKD stage IIIb - 1.47 upon presentation, EGFR 50 - In 2021 and 2022, GFR was around 35 - Avoid nephrotoxic agents - Monitor with daily labs 7. Essential hypertension - Amlodipine and hydralazine resumed - Hold beta tahmina due to bradycardia/sinus pause VTE Prophylaxis: Will start AFTER PROCEDURE Scheduled Meds amLODIPine, 10 mg, oral, Once Daily aspirin, 81 mg, oral, Daily carbidopa-levodopa, 1 tablet, oral, TID AC carbidopa-levodopa, 1 tablet, oral, TID heparin (porcine), 5,000 Units, subcutaneous, q8h HENRY hydrALAZINE, 10 mg, oral, TID memantine, 5 mg, oral, BID potassium chloride CR, 20 mEq, oral, Daily Pertinent Investigations Hematology: Results from last 7 days Lab Units 09/04/24 0537 WBC AUTO 10*3/uL 9.91 HEMOGLOBIN g/dL 14.6 HEMATOCRIT % 45.0 MCV fL 83.8 PLATELETS AUTO 10*3/uL 279 Chemistry: Results from last 7 days Lab Units 09/04/24 0537 SODIUM mmol/L 139 POTASSIUM mmol/L 4.0 CHLORIDE mmol/L 110* CO2 mmol/L 19* BUN mg/dL 18 CREATININE mg/dL 1.47* GLUCOSE mg/dL 87 CALCIUM mg/dL 9.1 Results from last 7 days Lab Units 09/04/24 0537 AST U/L 14 ALT U/L 8 ALK PHOS U/L 70 BILIRUBIN TOTAL mg/dL 1.4* Results from last 7 days Lab Units 09/03/24 2213 POCT GLUCOSE mg/dL 107* Historical Values: (Includes values prior to this admission) No results found for: PREALBUMIN , TSH , T3FREE , FREET4 , CORTISOL , FEV1 , GSM8TVL , DLCO , RVSP , HDL , LDL No results found for: SSHIJSOE62 , IRON , TIBC , C3 , C4 , RONI , CANCA , ASO , PSA , CEA , CA125 , CA199 , AFP , CA153 Imaging ECG 12 lead Normal sinus rhythm Left axis deviation Possible Lateral infarct , age undetermined Abnormal ECG No previous ECGs available Discharge Planning Signed Ramesh Lawrence MD [facility] (more content not included)... [facility] 09-03-2024 Note Hospital Medicine History and Physical 09/03/2024 10:10 PM THE HOSPITALIST TEAM PREFERS TO USE [employer] CHAT FOR NON-URGENT COMMUNICATION 7AM-7PM. IF I DO NOT RESPOND WITHIN 20 MINUTES OR URGENT MATTERS, PLEASE CALL THROUGH THE CORROSION CONTROL SPECIALIST. FROM 7PM-7AM, PLEASE PAGE [phone](COVR). Chief Complaint Syncope History of Present Illness Efraín Johnson is an 74 y.o. male who came from [facility] with syncopal episode and sustained bradycardia. patient was found by at home after a fall that was unwitnessed. Patient is unable to describe the details of the falls and any precipitating events. He was taken to the ER where he was noted to be bradycardic. EKG showed atrial fibrillation which appears to be new. Patient was noted to have multiple pauses on telemetry at 1.6 and 1.8 seconds. He has had syncopal episodes in the past with no clear etiology identified. Previous notes from Dr. Chaparro suggested cardiac pauses as potential etiology. He recently had a treadmill stress test which showed appropriate heart rate and blood pressure response to exercise. He had a Holter monitor placed in the past which showed sinus bradycardia with second-degree AV block type I but this was nocturnal and asymptomatic. The note mentions that his beta-tahmina was discontinued. Loop recorder was implanted in August 2023 and device check later on showed no significant arrhythmia. The patient is a limited historian due to his dementia. He does state that he has had frequent episodes of syncope with no precipitating symptoms such as dizziness, lightheadedness, chest pain or shortness of breath. Past medical history: Parkinson's, CKD stage IIIb, dementia, GERD, essential hypertension, hyperlipidemia, prostate cancer, syncope, urinary retention, lumbar spondylosis Past surgical history: Back surgery, cholecystectomy Social history: Non-smoker, no alcohol use, no illicit drug use Family history: No known cardiac disease Review of System and Physical Exam Temp: [36.6 ???C (97.9 ???F)] 36.6 ???C (97.9 ???F) Heart Rate: [78-81] 78 Resp: [20-23] 20 BP: (132-144)/(88-96) 132/88 Physical Exam Vitals reviewed. Constitutional: Appearance: Normal appearance. He is normal weight. HENT: Head: Normocephalic and atraumatic. Right Ear: External ear normal. Left Ear: External ear normal. Mouth/Throat: Mouth: Mucous membranes are moist. Pharynx: Oropharynx is clear. Eyes: Extraocular Movements: Extraocular movements intact. Conjunctiva/sclera: Conjunctivae normal. Pupils: Pupils are equal, round, and reactive to light. Cardiovascular: Rate and Rhythm: Normal rate and regular rhythm. Pulses: Normal pulses. Heart sounds: Normal heart sounds. Pulmonary: Effort: Pulmonary effort is normal. Breath sounds: Normal breath sounds. Abdominal: General: Abdomen is flat. Bowel sounds are normal. Palpations: Abdomen is soft. Musculoskeletal: General: Normal range of motion. Cervical back: Normal range of motion and neck supple. Right lower leg: No edema. Left lower leg: No edema. Skin: General: Skin is warm. Capillary Refill: Capillary refill takes less than 2 seconds. Neurological: General: No focal deficit present. Mental Status: He is alert. He is disoriented. Psychiatric: Attention and Perception: Attention normal. Mood and Affect: Mood normal. Speech: Speech normal. Behavior: Behavior is hyperactive. Behavior is cooperative. Cognition and Memory: Cognition is impaired. Memory is impaired. Review of Systems Constitutional: Negative. HENT: Negative. Eyes: Negative. Respiratory: Negative. Cardiovascular: Negative. Gastrointestinal: Negative. Endocrine: Negative. Genitourinary: Negative. Musculoskeletal: Negative. Skin: Negative. Neurological: Positive for tremors and syncope. Negative for dizziness, seizures, facial asymmetry, speech difficulty, weakness, light-headedness, numbness and headaches. Hematological: Negative. Psychiatric/Behavioral: Positive for agitation, behavioral problems and confusion. Negative for decreased concentration, dysphoric mood, hallucinations, self-injury, sleep disturbance and suicidal ideas. The patient is not nervous/anxious and is not hyperactive. All other systems reviewed and are negative. Problem List Principal Problem: Cardiac syncope Active Problems: Gait instability GERD (gastroesophageal reflux disease) HTN (hypertension) Hyperlipidemia Chronic kidney disease, stage 3b (CMS/HCC) Dementia (CMS/HCC) Parkinson disease (CMS/HCC) Adenocarcinoma of prostate (CMS/HCC) Symptomatic bradycardia Sinus pause Assessment and Plan 1. Cardiac syncope 2. Symptomatic bradycardia 3. Sinus pauses 4. New onset atrial fibrillation 5. Parkinson's disease 6. Dementia 7. CKD stage IIIb 8. Essential hypertension Admit to stepdown Monitor on telemetry Cardiology consulted, may be planning for pacemaker (more content not included)... [facility] 08-05-2024 History of Present illness Narrative [facility] Neurology Office Note 08/04/2024 1:37 PM Patient info: Efraín Johnson is a 74 y.o. male Account No.: [id number] Acct: : 1950 PCP: LIBRADO HELM MD Chief Complaint: Patient, 74 year old right hand dominant male, presents for follow up Neurological evaluation regarding Parkinsonism and Dementia. Last seen in the office on 02/12/[address] Janice ARVIZU Efraín is present in the office today with his daughter. Interval Hx: Carbidopa-Levodopa 25-100 mg, 1 tab TID (6:00, 12:00, 18:00) 30-45 minutes prior to a small meal Carbidopa-Levodopa CR 25-100 mg, 1 tab TID (6:00, 12:00, 18:00) 30-45 minutes prior to a small meal Daughter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
[2024-09-08 12:22] LABS: Anion Gap 21.3; Calcium 9.5 mg/dL (8.5-10.1); Carbon Dioxide 19.5 mmol/L (21.0-32.0); Chloride 106 mmol/L (98-107); Estimated GFR (African America 42 (>=60 mL/min/1.73m^2); Estimated GFR (Non-African Ame 35 (>=60 mL/min/1.73m^2); Glucose 104 mg/dL (74-106); Sodium 142 mmol/L (136-145)
[2024-09-08 12:34] LABS: Potassium 4.8 mmol/L (3.5-5.1)
== END 2024-09-08 11:43 | disposition home or self-care (01) ==
LOC: LAB 11:42
PROVIDERS: PCP Family Medicine
DX: I48.91 Unspecified atrial fibrillation (principal)
CPT/HCPCS: 36415; 80048

== ENCOUNTER 2024-09-08 11:52 | Outpatient (OUT) | payer MEDICARE, SELFPAY ==
--- NOTE | 2024-09-08 11:54 | XR_ITS ---
The [address] [address] Patient Name: EFRAÍN RAMON MRN: [id number] date: 1950 Sex: M Assigned Patient Location: [facility] Current Patient Location: Accession/Order Number: [id number] Exam Date: 09/08/2024 12:00 Report Date: 09/09/2024 07:20 At the request of: SETH HOOVER Procedure: XR chest 2V PROCEDURE: XR chest 2V DATE: 09/08/2024 12:00 PM EST COMPARISONS: 08/30/2023 CLINICAL INDICATION: 74 years Male Atrial Fibrillation FINDINGS: The cardiomediastinal silhouette and pulmonary vasculature are within normal limits. Electronic cardiac device is now in place overlying the upper lateral left chest with wires extending to the heart. This appears to be in good position in these projections. 3 mm high density overlies the mid anterior right costophrenic angle, as before. Its etiology is unclear. The lungs are otherwise clear. There is no evidence of pleural effusion or pneumothorax. XR/XR chest 2V IMPRESSION: Electronic cardiac device now in place. No evidence of pneumothorax. Electronically authenticated by: MARCIA NUR Date: 09/09/2024 07:20
--- OUTSIDE RECORDS SUMMARY | 2024-09-08 12:03 | XMS_ITS | CCD ---
Author Organization [facility] Care Team Providers Care Manager Clinical Name Role Phone DR FABIAN KENNEDY V [...] Unavailable Librado Helm MD Primary Care Provider [phone] MEL JUAREZ Attending Unavailable LIBRADO HELM Referring Unavailable LIBRADO HELM Primary Care Unavailable LIBRADO HELM Referring Unavailable LIBRADO HELM Primary Care Unavailable JOE JANG Attending Unavailable MEL JUAREZ Attending Unavailable LIBRADO HELM Referring Unavailable LIBRADO HELM Primary Care Unavailable Librado Helm MD Primary Care Provider [phone] REJI, SPENCER Referring Unavailable KIKO, MISSAEL [...] Translations: [PENICILLINS] Drug allergy (disorder) 4 [facility] Repository (2 sources) Penicillin; Translations: [penicillin] Drug Allergy Weal (disorder) General Surgery [facility] (3 sources) Penicillins Propensity to adverse reactions to drug 0 [facility] Medications Current Medications Medication [...] hydrochloride 5 mg oral tablet (3 sources) I-pfbyvv-S-aspart[place] te 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 Left message with daughter. Normal [facility] Telephoneon 09-06-2024 Telephone [phone] Efraín Johnson 1950 M Date Provider Department Center 09/06/2024 VIVIAN DAMICO [place] [facility] Family History Problem Relation Age of Onset Stroke Father Stroke Paternal Grandmother Stroke Paternal Grandfather Family Status - Relation Status Age at Father Paternal Grandmother Paternal Grandfather Normal [facility] 30on 09-05-2024 30 Problem: Pain - Adul [...] and behaviors that affect risk of falls [place] fall precautions as indicated by assessment Educate [...] Absence of (more content not included)... Normal [facility] 30 The patient is Moderately Stable - [...] and behaviors that affect risk of falls [place] fall precautions as indicated by assessment Educate patient/family on patient safety, including physical limitations Instruct patient to call for assistance with activity based on assessment Modify environment to reduce risk of injury Normal [facility] BASIC METABOLIC PANELon 12-0 Anion gap [Moles/Vol] 12 mmol/L Normal 7-20 [facility] Comment on above: Performed By: #### L [id number] #### [facility] ([facility]) [address] [place] [address] Calcium [Mass/Vol] 8.8 mg/dL Normal 8.6-10.3 [facility] Comment on above: Performed By: #### L [id number] #### [facility] ([facility]) [address] [place] [address] Chloride [Moles/Vol] 107 mmol/L Normal 98-[address] [facility] Comment on above: Performed By: #### L [id number] #### [facility] ([facility]) [address] [place] [address] CO2 [Moles/Vol] 20 mmol/L Low 21-31 [facility] Comment on above: Performed By: #### L [id number] #### [facility] ([facility]) [address] [place] [address] Creatinine [Mass/Vol] 1.38 mg/dL High 0.70-1.30 [facility] Comment on above: Performed By: #### L [id number] #### [facility] ([facility]) [address] [place] [address] GLOMERULAR FILTRATION RATE ML/MIN/1.73 SQ M.PREDICTED 54.0 mL/min/1.73m*2 Low >60.0 [facility] Comment on above: Result Comment: [facility]???s estimated glomerular filtration rate (eGFR) will no [...] individuals. Performed By: #### L [id number] #### [facility] ([facility]) [address] [place] [address] Glucose [Mass/Vol] 89 mg/dL Normal 70-100 [facility] Comment on above: Performed By: #### L [id number] #### [facility] ([facility]) [address] [place] [address] Potassium [Moles/Vol] 3.6 mmol/L Normal 3.5-5.1 [facility] Comment on above: Performed By: #### L [id number] #### [facility] ([facility]) [address] [place] [address] Sodium [Moles/Vol] 135 mmol/L Low 136-145 [facility] Comment on above: Performed By: #### L [id number] #### [facility] ([facility]) [address] [place] [address] Urea nitrogen [Mass/Vol] 18 mg/dL Normal 7-25 [facility] Comment on above: Performed By: #### L [id number] #### [facility] ([facility]) [address] [place] [address] UREA NITROGEN/CREATININE (MASS RATIO) IN SER/PLAS 13.0 Normal [facility] Comment on above: Performed By: #### L [id number] #### [facility] ([facility]) [address] [place] [address] CBCon 09-05-2024 Erythrocyte distribution width (RBC) [Ratio] 14.9 % Normal 11.5-15.0 [facility] Comment on above: Performed By: #### L [id number] ####[facility] ([facility])[address] [place] [address] ERYTHROCYTE MEAN CORPUSCULAR HEMOGLOBIN CONCENTRATION (G/DL) BY AUTOMATED 33.2 g/dL Normal 32.0-35.0 [facility] Comment on above: Performed By: #### L [id number] ####[facility] [place] [address] Hematocrit (Bld) [Volume fraction] 45.2 % Normal 39.0-55.0 [facility] Comment on above: Performed By: #### L [id number] ####[facility] ([facility])[address] [place] [address] Hemoglobin (Bld) [Mass/Vol] 15.0 g/dL Normal 13.0-17.0 [facility] Comment on above: Performed By: #### L [id number] ####[facility] ([facility])[address] [place] [address] MCH (RBC) [Entitic mass] 27.3 pg Normal 27.0-33.0 [facility] Comment on above: Performed By: #### L [id number] ####[facility] ([facility])[address] [place] [address] MCV (RBC) [Entitic vol] 82.2 fL Normal 82.0-98.0 [facility] Comment on above: Performed By: #### L [id number] ####[facility] ([facility])[address] [place] [address] PLATELETS (10*3/UL) IN BLOOD AUTOMATED COUNT 267 10*3/uL Normal 150-400 [facility] Comment on above: Performed By: #### L [id number] ####[facility] ([facility])[address] [place] [address] RBC (Bld) [#/Vol] 5.50 10*6/uL Normal 4.20-5.[address] [facility] Comment on above: Performed By: #### L [id number] ####[facility] ([facility])[address] [place] [address] WBC (Bld) [#/Vol] 7.60 10*3/uL Normal 4.00-10.[address] [facility] Comment on above: Performed By: #### L [id number] ####[facility] ([facility])[address] [place] [address] CT HEAD WO IV CONTRASTon CT HEAD [...] Macias MD. Not Vldtd Invalid Interpretation Code [facility] 30on 09-04-2024 30 The patient is Moderately [...] and behaviors that affect risk of falls [place] fall precautions as indicated by assessment Instruct [...] and prevent overall improvement and discharge Normal [facility] 30 The patient is Moderately Stable - Low risk of patient condition declining or worsening The patient's goals for the shift include The clinical goals for the shift include vss Normal [facility] 30 The patient is Moderately Stable - Low risk of patient condition declining or worsening The patient's goals for the shift include COMFORT The clinical goals for the shift include vss Normal [facility] CBC WITH AUTO DIFFERENTIALon 09-04-2024 Basophils (Bld) [#/Vol] 0.04 10*3/uL Normal 0.00-0.20 [facility] Comment on above: Performed By: #### L [id number] #### [facility] ([facility]) [address] [place] [address] Basophils/100 WBC (Bld) 0.4 % Normal 0.0-1.0 [facility] Comment on above: Performed By: #### L [id number] #### [facility] ([facility]) [address] [place] [address] Eosinophils (Bld) [#/Vol] 0.01 10*3/uL Normal 0.00-0.50 [facility] Comment on above: Performed By: #### L [id number] #### [facility] ([facility]) [address] [place] [address] Eosinophils/100 WBC (Bld) 0.1 % Normal 0.0-6.0 [facility] Comment on above: Performed By: #### L [id number] #### [facility] ([facility]) [address] [place] [address] Erythrocyte distribution width (RBC) [Ratio] 14.9 % Normal 11.5-15.0 [facility] Comment on above: Performed By: #### L [id number] #### [facility] ([facility] [address] [place] [address] ERYTHROCYTE MEAN CORPUSCULAR HEMOGLOBIN CONCENTRATION (G/DL) BY AUTOMATED 32.4 g/dL Normal 32.0-35.0 [facility] Comment on above: Performed By: #### L [id number] #### [facility] ([facility]) [address] [place] [address] Hematocrit (Bld) [Volume fraction] 45.0 % Normal 39.0-55.0 [facility] Comment on above: Performed By: #### L [id number] #### [facility] ([facility]) [address] [place] [address] Hemoglobin (Bld) [Mass/Vol] 14.6 g/dL Normal 13.0-17.0 [facility] Comment on above: Performed By: #### L [id number] #### [facility] ([facility]) [address] [place] [address] Immature granulocytes (Bld) [#/Vol] 0.02 10*3/uL Normal 0.00-0.20 [facility] Comment on above: Performed By: #### L [id number] #### [facility] ([facility]) [address] [place] [address] Immature granulocytes/100 WBC (Bld) 0.2 % Normal 0.0-1.0 [facility] Comment on above: Performed By: #### L [id number] #### [facility] ([facility]) [address] [place] [address] Lymphocytes (Bld) [#/Vol] 1.17 10*3/uL Low 1.20-4.00 [facility] Comment on above: Performed By: #### L [id number] #### [facility] [address] [place] [address] Lymphocytes/100 WBC (Bld) 11.8 % Low 20.0-45.0 [facility] Comment on above: Performed By: #### L [id number] #### [facility] ([facility]) [address] [place] [address] MCH (RBC) [Entitic mass] 27.2 pg Normal 27.0-33.0 [facility] Comment on above: Performed By: #### L [id number] #### [facility] ([facility]) [address] [address] MCV (RBC) [Entitic vol] 83.8 fL Normal 82.0-98.0 [facility] Comment on above: Performed By: #### L [id number] #### [facility] ([facility]) [address] [place] [address] Monocytes (Bld) [#/Vol] 0.89 10*3/uL Normal 0.10-1.00 [facility] Comment on above: Performed By: #### L [id number] #### [facility] [address] [place] [address] Monocytes/100 WBC (Bld) 9.0 % Normal 5.0-12.0 [facility] Comment on above: Performed By: #### L [id number] #### [facility] [address] [place] [address] Neutrophils (Bld) [#/Vol] 7.78 10*3/uL High 1.60-7.60 [facility] Comment on above: Performed By: #### L [id number] #### [facility] ([facility]) [address] [place] [address] Neutrophils/100 WBC (Bld) 78.5 % High 40.0-72.0 [facility] Comment on above: Performed By: #### L [id number] #### [facility] ([facility]) [address] [place] [address] NRBC (PER 100 WBCS) BY AUTOMATED COUNT 0.0 % Normal 0 [facility] Comment on above: Performed By: #### L [id number] #### [facility] ([facility]) [address] [place] [address] PLATELETS (10*3/UL) IN BLOOD AUTOMATED COUNT 279 10*3/uL Normal 150-400 [facility] Comment on above: Performed By: #### L [id number] #### [facility] ([facility]) [address] [place] [address] RBC (Bld) [#/Vol] 5.37 10*6/uL Normal 4.20-5.[address] [facility] Comment on above: Performed By: #### L [id number] #### [facility] ([facility]) [address] [place] [address] WBC (Bld) [#/Vol] 9.91 10*3/uL Normal 4.00-10.[address] [facility] Comment on above: Performed By: #### L [id number] #### [facility] ([facility]) [address] [place] [address] COMPREHENSIVE METABOLIC PANE Peter 09-04-2024 Albumin [Mass/Vol] 4.3 g/dL Normal 3.5-5.7 [facility] Comment on above: Performed By: #### L [id number] #### [facility] ([facility]) [address] [place] [address] ALP [Catalytic activity/Vol] 70 U/L Normal 34-104 [facility] Comment on above: Performed By: #### L [id number] #### [facility] ([facility] [address] [place] [address] ALT [Catalytic activity/Vol] 8 U/L Normal 7-52 [facility] Comment on above: Performed By: #### L [id number] #### [facility] ([facility]) [address] [place] [address] Anion gap [Moles/Vol] 14 mmol/L Normal 7-20 [facility] Comment on above: Performed By: #### L [id number] #### [facility] ([facility]) [address] [place] [address] AST [Catalytic activity/Vol] 14 U/L Normal 13-39 [facility] Comment on above: Performed By: #### L [id number] #### [facility] ([facility]) [address] [place] [address] Bilirubin [Mass/Vol] 1.4 mg/dL High 0.3-1.[address] [facility] Comment on above: Performed By: #### L [id number] #### [facility] ([facility] [address] [place] [address] Calcium [Mass/Vol] 9.1 mg/dL Normal 8.6-10.3 [facility] Comment on above: Performed By: #### L [id number] #### [facility] ([facility]) [address] [place] [address] Chloride [Moles/Vol] 110 mmol/L High 98-[address] [facility] Comment on above: Performed By: #### L [id number] #### [facility] ([facility]) [address] [place] [address] CO2 [Moles/Vol] 19 mmol/L Low 21-31 [facility] Comment on above: Performed By: #### L [id number] #### [facility] ([facility]) [address] [place] [address] Creatinine [Mass/Vol] 1.47 mg/dL High 0.70-1.30 [facility] Comment on above: Performed By: #### L [id number] #### [facility] ([facility]) [address] [place] [address] GLOMERULAR FILTRATION RATE ML/MIN/1.73 SQ M.PREDICTED 50.1 mL/min/1.73m*2 Low >60.0 [facility] Comment on above: Result Comment: [facility]???s estimated glomerular filtration rate (eGFR) will no [...] individuals. Performed By: #### L [id number] #### [facility] ([facility]) [address] [place] [address] Glucose [Mass/Vol] 87 mg/dL Normal 70-100 [facility] Comment on above: Performed By: #### L [id number] #### [facility] ([facility]) [address] [place] [address] Potassium [Moles/Vol] 4.0 mmol/L Normal 3.5-5.1 [facility] Comment on above: Performed By: #### L [id number] #### [facility] ([facility]) [address] [place] [address] Protein [Mass/Vol] 6.6 g/dL Normal 6.0-8.3 [facility] Comment on above: Performed By: #### L [id number] #### [facility] ([facility]) [address] [place] [address] Sodium [Moles/Vol] 139 mmol/L Normal 136-145 [facility] Comment on above: Performed By: #### L [id number] #### [facility] ([facility]) [address] [place] [address] Urea nitrogen [Mass/Vol] 18 mg/dL Normal 7-25 [facility] Comment on above: Performed By: #### L [id number] #### [facility] ([facility]) [address] [place] [address] UREA NITROGEN/CREATININE (MASS RATIO) IN SER/PLAS 12.2 Normal [facility] Comment on above: Performed By: #### L [id number] #### [facility] ([facility]) [address] [place] [address] CONSULTon 09-04-2024 CONSULT - Attestation signed by [...] of recurrent syncopal episodes and follows with [facility] cardiology clinic outpatient. Patient was on Holter [...] EYES: P (more content not included)... Normal [facility] NURSNOTEon 09-04-2024 NURSNOTE Patient pleasantly confused and restless this shift. Pulled IV x3 near start of shift. IV's replaced x2, warren sleeves ordered and applied. Net Developer With [facility] notified Dr. Hale that patient continues to be restless with several attempts to rise from bed without assistance. Melatonin administered at HS, ineffective for sleep promotion. Order received for Ativan 0.5mg PO. Patient compliant with medication administration. Will continue to monitor this shift. Normal [facility] TSHon 09-04-2024 THYROTROPIN (MIU/L) IN SER/PLAS BY DETECTION LIMIT <= 0.05 MIU/L 0.56 mIU/L Normal 0.34-5.60 [facility] Comment on above: Performed By: #### L [id number] #### [facility] ([facility]) [address] [place] [address] POCT GLUCOSE METER UNSOLICIT ED RESULTSon 09-03-2024 Glucose [Mass/Vol] 107 mg/dL High 70-105 [facility] Comment on above: Order Comment: Waive d Testing in the ED is performed under the ED CLIA certificate #[id number]. Result Comment: [id number] [email or web address] Performed By: #### L [id number] ####[facility] ([facility])[address] [place] [address] TROPONIN Ion 09-03-2024 Troponin I.cardiac [Mass/Vol] 0.01 ng/mL Normal 0.00-0.04 [facility] Comment on above: Performed By: #### L [id number] #### [facility] ([facility]) [address] [place] [address] Office Visiton 06-01-2024 Follow-up visit [id number] Efraín Johnson 1950 M [facility] Provider Department Center 06/01/2024 ZEV JOHNSON PILAR [facility] Family History Problem Relation Age of Onset Stroke Father Stroke Paternal Grandmother Stroke Paternal Grandfather Family Status - Relation Status Age at Father Paternal Grandmother Paternal Grandfather Level of Service:43625 [place] OFFICE/OUTPATIENT ESTABLISHED MOD MDM 30 MIN Reason for Visit and Comments: Hyperlipidemia [182] Hypertension [677032] - Pt is here for a six month follow up. Normal [facility] Office Visiton 12-08-2023 Follow-up visit [id number] Efraín Johnson 1950 M Date Provider Department Center 12/08/2023 MISSAEL PRINCE PILAR [facility] Family History Problem Relation Age of Onset Stroke Father Stroke Paternal Grandmother Stroke Paternal Grandfather Family Status - Relation Status Age at Father Paternal Grandmother Paternal Grandfather Level of Service:13718 [place] OFFICE/OUTPATIENT ESTABLISHED LOW MDM 20 MIN Normal [facility] Documentationon 09-18-2023 Documentation [id number] Efraín Johnson 1950 M [facility] Provider Department Center 09/18/2023 ROBIN BANUELOS [facility] Family History Problem Relation Age of Onset Stroke Father Stroke Paternal Grandmother Stroke Paternal Grandfather Family Status - Relation Status Age at Father Paternal Grandmother Paternal Grandfather Normal [facility] Office Visiton 09-14-2023 Follow-up visit [id number] Efraín Johnson 1950 M [facility] Provider Department Center 09/14/2023 ROBIN BANUELOS [facility] Family History Problem Relation Age of Onset Stroke Father Stroke Paternal Grandmother Stroke Paternal Grandfather Family Status - Relation Status Age at Father Paternal Grandmother Paternal Grandfather Level of Service:45437 [place] OFFICE/OUTPATIENT ESTABLISHED MOD MDM 30 MIN Normal [facility] HPon 09-10-2023 [facility] Electrophysiology Consult Note Reason for visit: [facility] follow-up, bradycardia, holter monitor , new to EP HPI: Efraín Johnson is a 73 y.o. year old with past medical history of Hypertension, bradycardia, CKD wth baseline appearing around Cr1.5, anemia. Patient was seen in the [facility] for her sinus bradycardia. He was having heart rate ranging in the 50s but was asymptomatic and was discharged with event monitor. He was also dealing with an SHERYL and was found to be dehydrated, hypokalemic, hyponatremic. He was seen by neurology for lower extremity weakness who recommended MRI of C-spine, no concern for stroke. He was seen in [facility] 11/11/2022 for weakness and difficulty getting [...] Murmur: not heard (more content not included)... [facility] NURSNOTEon 09-10-2023 NURSNOTE RN educated pt on d/ c instructions. RN encouraged pt to voice any questions or concerns. Pt verbalizes no questions or concerns at this time. Pt was wheeled off of unit with all of belongings. [facility] Outside Colonoscopyon 2022 Outside Colonoscopy [id number] .00CD:127 [facility] Insurance Correspondenceon 0 05-14-2023 Insurance Correspondence [id number] 1.00CD:127 [facility] Consent for Procedure/Surger yon 05-13-2023 Consent for Procedure/Surgery [id number] .00CD:127 [facility] Ambulatory Visit Summaryon 0 05-12-2023 Ambulatory [...] Epidermoid cyst of skin of back Normal [facility] ED Note-Physicianon 04-15-20 ED Note-Physician [id number] .00CD:127 Normal [facility] RAD - CT Reporton 04-15-2023 RAD - CT Report [id number] .00CD:127 [facility] Physician Referralon 023 Physician Referral [id number] .00CD:127 [facility] Physician Referralon 023 Physician Referral [id number] .00CD:127 [facility] BLOOD CULTURE ID PANELon A. baumannii Not detected Normal NOT DETECTED [facility] Comment on above: Performed By: #### B CID2 ####[facility] [address] [place] [address]Dr. Flaco Lawrence Bacteriodes fragilis Not detected Normal NOT DETECTED [facility] Comment on above: Performed By: #### B CID2 ####[facility] [address] [place] [id number]. Flaco Lawrence BCID CONTROLS PASSED Normal [facility] Comment on above: Performed By: #### B CID2 ####[facility] [address] [place] [id number]. Flaco Lawrence BCIDBTHD BLOOD CULTURE BOTTLE INFORMATION Normal [facility] Comment on above: Performed By: #### B CID2 ####[facility] [address] [place] [id number]. Yiedith Lawrence BCIDHD1 ANTIMICROBIAL RESISTANCE GENES Normal [facility] Comment on above: Performed By: #### B CID2 ####[facility] [address] [place] [address]Dr. Yiedith Lawrence BCIDHD2 SEE BELOW Normal [facility] Comment on above: Result Comment: Note : Antimicrobial resitance can occur via multiple mechanisms. A Not Detected result for the [employer] antomicrobial resistance gene assays does not indicate antimicrobial susceptibility. Subculturing is required for species identification and susceptibility testing of isolates. Performed By: #### B CID2 ####[facility] [address] [place], [place] [address]Dr. Yiedith Lawrence BCIDHD3 Positive Normal [facility] Comment on above: Performed By: #### B CID2 ####[facility] [address] [place], [place] [address]Dr. Yiedith Lawrence BCIDHD4 Negative Normal [facility] Comment on above: Performed By: #### B CID2 ####[facility] [address] [place], [place] [address]Dr. Yiedith Lawrence BCIDHD5 YEAST Normal [facility] Comment on above: Performed By: #### B CID2 ####[facility] [address] [place], [place] [address]Dr. Yilan Lawrence Bottle Set: Set 2 Normal [facility] [facility] Comment on above: Performed By: #### B CID2 ####[facility] Cyvvbzfqxs[address] [place], [place] [address]Dr. Yiedith Lawrence Bottle: Pediatric Normal [facility] Comment on above: Performed By: #### B CID2 ####[facility] Gfhbswzkwh[address] [place], [place] [address]Dr. Yilan Lawrence C. neoformans/gattii Not detected Normal NOT DETECTED [facility] Comment on above: Performed By: #### B CID2 ####[facility] Cgtbqtpjyl[address] [place], [place] [address]Dr. Yiedith Lawrence Angela albicans Not detected Normal NOT DETECTED [facility] Comment on above: Performed By: #### B CID2 ####[facility] [address]rtmgem[address] [place] [phone]. Yiedith Lawrence Angela auris Not detected Normal NOT DETECTED [facility] Comment on above: Performed By: #### B CID2 ####[facility] Wqsdqeouzd55[address] [place] [phone]. Yilan Lawrence Angela glabrata Not detected Normal NOT DETECTED [facility] Comment on above: Performed By: #### B CID2 ####[facility] Ytqqpygfob6516 [place] [phone]. Yilan Lawrence Angela Krusei Not detected Normal NOT DETECTED The [facility] Comment on above: Performed By: #### B CID2 ####[facility] [address]umgstksnb[address] [place] [address]Dr. Yilan Lawrence Angela Parapsilosis Not detected Normal NOT DETECTED [facility] Comment on above: Performed By: #### B CID2 ####[facility] Ntetctmfgq92[address] [place] [address]Dr. Yiedith Lawrence Angela Tropicalis Not detected Normal NOT DETECTED [facility] Comment on above: Performed By: #### B CID2 ####[facility] Rpwnhdhjbp[address] [place], [place] [address]Dr. Flaco Lawrence CTX-M Resistant Gene Not Applicable Normal NOT DETECTE D [facility] Comment on above: Performed By: #### B CID2 ####[facility] Agofyfqddi[address] [place] [address]Dr. Yiedith Lawrence E. Cloacae complex Not detected Normal NOT DETECTED [facility] Comment on above: Performed By: #### B CID2 ####[facility] Waxmwpnwzg2353 [place] [phone]. Yilan Lawrence E. faecalis Not detected Normal NOT DETECTED The [facility] Comment on above: Performed By: #### B CID2 ####[facility] Kkcdszlkie3[address] [place] [address]Dr. Yiedith Lawrence E. faecium Not detected Normal NOT DETECTED The [facility] Comment on above: Performed By: #### B CID2 ####[facility] Frppljbvsi7[address] [place], [place] [address]Dr. Flaco Lawrence Enterobacteriaceae Not detected Normal NOT DETECTED [facility] Comment on above: Performed By: #### B CID2 ####[facility] Scqnwgirjh5487[address] [place], [place] [address]Dr. Flaco Lawrence Escherichia coli Not detected Normal NOT DETECTED [facility] Comment on above: Performed By: #### B CID2 ####[facility] Txtedjjxqu9320[address] [place], [place] [address]Dr. Flaco Lawrence H. influenzae Not detected Normal NOT DETECTED [facility] Comment on above: Performed By: #### B CID2 ####[facility] Vqirxnocyr[address] [place], [place] [address]Dr. Flaco Lawrence IMP Resistant Gene Not Applicable Normal NOT DETECTED [facility] Comment on above: Performed By: #### B CID2 ####[facility] Ejkqcbhvqy9675[address] [place], [place] [address]Dr. Flaco Lawrence K. oxytoca Not detected Normal NOT DETECTED The [facility] Comment on above: Performed By: #### B CID2 ####[facility] Cltubtzndk079[address] [place], [place] [address]Dr. Flaco Lawrence K. pneumoniae Not detected Normal NOT DETECTED [facility] Comment on above: Performed By: #### B CID2 ####[facility] Yspawwfsry4[address] [place], [place] [address]Dr. Flaco Lawrence Klebsiella aerogenes Not detected Normal NOT DETECTED [facility] Comment on above: Performed By: #### B CID2 ####[facility] Khbsqjnytc163[address] [place], [place] [address]Dr. Flaco Lawrence KPC Resistant Gene Not detected Normal NOT DETECTED [facility] Comment on above: Performed By: #### B CID2 ####[facility] Ipiollvvqm9280[address] [place], [place] [address]Dr. Flaco Lawrence List. monocytogenes Not detected Normal NOT DETECTED [facility] Comment on above: Performed By: #### B CID2 ####[facility] Fbmcixtzrn2749[address] [place], [place] [address]Dr. Flaco Lawrence Mcr-1 Resistant Gene Not Applicable Normal NOT DETECTE D [facility] Comment on above: Performed By: #### B CID2 ####[facility] Lhmpehwlhk8598[address] [place], [place] [address]Dr. Purvilan Lawrence mecA/C Not Applicable Normal NOT DETECTED The [facility] Comment on above: Performed By: #### B CID2 ####[facility] Dudhcsuqol4919[address] [place], [place] [address]Dr. Flaco Lawrence mecA/C MREJ Not Applicable Normal NOT DETECTED [facility] Comment on above: Performed By: #### B CID2 ####[facility] Nwajedrjuc4924[address] [place], [place] [address]Dr. Flaco Lawrence N. meningitidis Not detected Normal NOT DETECTED [facility] Comment on above: Performed By: #### B CID2 ####[facility] Ysnoetzlyo4299[address] [place], [place] [address]Dr. Flaco Lawrence NDM Resistant Gene Not Applicable Normal NOT DETECTED [facility] Comment on above: Performed By: #### B CID2 ####[facility] Lunhtanyow1669[address] [place], [place] [address]Dr. Flaco Lawrence Oxa-48-like Not Applicable Normal NOT DETECTED [facility] Comment on above: Performed By: #### B CID2 ####[facility] Eyaruyehat3355[address] [place], [place] [address]Dr. Flaco Lawrence Proteus Not detected Normal NOT DETECTED The [facility] Comment on above: Performed By: #### B CID2 ####[facility] Ichpqkmivb8215[address] [place], [place] [address]Dr. Flaco Lawrence Pseud. aeruginosa Not detected Normal NOT DETECTED [facility] Comment on above: Performed By: #### B CID2 ####[facility] Arkbxzpgtl180[address] [place], [place] [address]Dr. Flaco Lawrence S. maltophilia Not detected Normal NOT DETECTED The [facility] Comment on above: Performed By: #### B CID2 ####[facility] Havqranlwt8135[address] [place], [place] [address]Dr. Flaco Lawrence Salmonella Not detected Normal NOT DETECTED The [facility] Comment on above: Performed By: #### B CID2 ####[facility] Sxtmirwfrw3458[address] [place], [place] [address]Dr. Flaco Lawrence Seratia marcescens Not detected Normal NOT DETECTED [facility] Comment on above: Performed By: #### B CID2 ####[facility] Zbvmjcqhkc9844[address] [place], [place] [address]Dr. Falco Lawrence Site: left hand Normal [facility] Comment on above: Performed By: #### B CID2 ####[facility] Yjqwctwhtk2106[address] [place], [place] [address]Dr. Flaco Lawrence Staph. aureus Not detected Normal NOT DETECTED [facility] Comment on above: Performed By: #### B CID2 ####[facility] Vsykfawmse419[address] [place], [place] [address]Dr. Flaco Lawrence Staph. epidermidis Not detected Normal NOT DETECTED [facility] Comment on above: Performed By: #### B CID2 ####[facility] Lfzlcaidxf4559[address] [place], [place] [address]Dr. Flaco Lawrence Staph. lugdunensis Not detected Normal NOT DETECTED [facility] Comment on above: Performed By: #### B CID2 ####[facility] Ssfijzvkfo9280[address] [place], [place] [address]Dr. Flaco Lawrence Staphylococcus Not detected Normal NOT DETECTED The [facility] Comment on above: Performed By: #### B CID2 ####[facility] Ydutpqexsh4279[address] [place], [place] [address]Dr. Yilan Lawrence Strep. agalactiae Not detected Normal NOT DETECTED [facility] Comment on above: Performed By: #### B CID2 ####[facility] Kfwdugcpzz7075[address] [place], [place] [address]Dr. Purvilan Lawrence Strep. pneumoniae Not detected Normal NOT DETECTED [facility] Comment on above: Performed By: #### B CID2 ####[facility] Qkrajbpbxy5514[address] [place], [place] [address]Dr. Yiedith Lawrence Strep. pyogenes Not detected Normal NOT DETECTED [facility] Comment on above: Performed By: #### B CID2 ####[facility] Pldgyomvvp4037[address] [place], [place] [address]Dr. Flaco Branden Streptococcus Detected Critically abnormal NOT DETECTED [facility] Comment on above: Performed By: #### B CID2 ####[facility] Wpxcgqtgjm2468[address] [place], [place] [address]Dr. Purviedith Lawrence Hao/B Resist. Gene Not detected Normal NOT DETECTED [facility] Comment on above: Performed By: #### B CID2 ####[facility] Wbmnmqgdux450[address] [place], [place] [address]Dr. Purviedith Lawrence VIM Resistant Gene Not Applicable Normal NOT DETECTED [facility] Comment on above: Performed By: #### B CID2 ####[facility] Svrivmvnhk46232[address] [place], [place] [address]Dr. Flaco Branden CBC AUTO DIFFon 02-10-2023 BASO # 0.0 103/ul Normal 0.0-0.1 [facility] Comment on above: Performed By: #### C BC ####[facility] Trsxpkaezy0470[address] [place], [place] [address]Dr. Purviedith Lawrence Basophils/100 WBC (Bld) 0.5 % Normal 0.2-2.0 [facility] Comment on above: Performed By: #### C BC ####[facility] Wndjlzdmld252[address] [place], [place] [address]Dr. Purviedith Lawrence EO # 0.1 103/ul Normal 0.0-0.7 [facility] Comment on above: Performed By: #### C BC ####[facility] Yuumgljeqx0427[address] [place], [place] [address]Dr. Flaco Lawrence Eosinophils/100 WBC (Bld) 1.1 % Normal 0.9-7.0 [facility] Comment on above: Performed By: #### C BC ####[facility] Ihybnhdrwi7419[address] [place], [place] [address]Dr. Flaco Lawrence Erythrocyte distribution width (RBC) [Ratio] 16.0 % Critically high 11.0-15.0 [facility] Comment on above: Performed By: #### C BC ####[facility] [address]uitv[address] [place] [address]Dr. Flaco Lawrence Hematocrit (Bld) [Volume fraction] 40.1 % Critically low 42.0-54.0 [facility] Comment on above: Performed By: #### C BC ####[facility] Cnlpvppial6588 [place] [address]Dr. Flaco Lawrence Hemoglobin (Bld) [Mass/Vol] 13.2 g/dL Critically low 14.0-18.0 [facility] Comment on above: Performed By: #### C BC ####[facility] Ftrgqbimfg9367[address] [place], [place] [address]Dr. Flaco Lawrence IG # 0.01 10e3/ul Normal 0.00-0.03 [facility] Comment on above: Performed By: #### C BC ####[facility] Zaplejgwxc0497[address] [place], [place] [address]Dr. Flaco Lawrence IG % 0.2 % Normal 0.0-0.5 [facility] Comment on above: Performed By: #### C BC ####[facility] Lylejtyvth69[address] [place], [place] [address]Dr. Flaco Lawrence LYMPH # 1.8 103/ul Normal 1.2-3.8 [facility] Comment on above: Performed By: #### C BC ####[facility] Tnxmrtvlxm6939[address] [place], [place] [address]Dr. Flaco Lawrence Lymphocytes/100 WBC (Bld) 28.1 % Normal 20.5-60.0 [facility] Comment on above: Performed By: #### C BC ####[facility] Odkffwqjyl45[address] [place] [address]Dr. Flaco Lawrence MANUAL DIFF REQ NO Normal [facility] Comment on above: Performed By: #### C BC ####[facility] Rqngleydcx8[address] [place], [place] [address]Dr. Flaco Lawrence MCH (RBC) [Entitic mass] 28.0 pg Normal 25.9-34.0 [facility] Comment on above: Performed By: #### C BC ####[facility] Rtcuyztsnj[address] [place], [place] [address]Dr. Flaco Lawrence MCHC (RBC) [Mass/Vol] 32.9 g/dL Normal 29.9-35.2 [facility] Comment on above: Performed By: #### C BC ####[facility] Reifmlsbwl[address]41 [place] [address]Dr. Flaco Lawrence MCV (RBC) [Entitic vol] 85.0 fL Normal 80.0-94.0 [facility] Comment on above: Performed By: #### C BC ####[facility] Xmotzpvsyd2303 [place] [address]Dr. Flaco Branden MONO # 0.5 103/ul Normal 0.3-0.8 [facility] Comment on above: Performed By: #### C BC ####[facility] Lhxyydhkoo2152 [place] [address]Dr. Flaco Lawrence Monocytes/100 WBC (Bld) 7.2 % Normal 1.7-12.0 [facility] Comment on above: Performed By: #### C BC ####[facility] Leunpvmbbm4964[address] [place], [place] [address]Dr. Flaco Lawrence NEUT # 4.1 103/ul Normal 1.4-6.5 [facility] Comment on above: Performed By: #### C BC ####[facility] Wdyyrkvdgs1353 [place] [address]Dr. Purviedith Lawrence Neutrophils/100 WBC (Bld) 62.9 % Normal 43.0-75.0 [facility] Comment on above: Performed By: #### C BC ####[facility] Dtfbqmcxjy1568 [place] [address]Dr. Purviedith Lawrence Platelet mean volume (Bld) [Entitic vol] 10.7 fL Normal 9.5-13.5 [facility] Comment on above: Performed By: #### C BC ####[facility] Svyotuwayv7538 [place] [address]Dr. Flaco Lawrence PLT 180 103/ul Normal 150-450 [facility] Comment on above: Performed By: #### C BC ####[facility] Koysccfwxp6476 [place] [address]Dr. Flaco Lawrence RBC 4.72 106/ul Normal 4.70-6.10 [facility] Comment on above: Performed By: #### C BC ####[facility] Durywksbii56[address] [place] [address]Dr. Flaco Lawrence WBC 6.5 103/ul Normal 4.0-11.0 [facility] Comment on above: Performed By: #### C BC ####[facility] Hloznudqrh1620 [place] [address]Dr. Flaco Lawrence PROF 14(COMP METB)on 023 Albumin [Mass/Vol] 2.8 g/dL Critically low 3.4-5.0 [facility] Comment on above: Performed By: #### C MP ####[facility] Jvwcszwtvw4[address] [place] [address]Dr. Flaco Lawrence Albumin/Globulin [Mass ratio] 1.2 {ratio} Normal [facility] Comment on above: Performed By: #### C MP ####[facility] Tdzapgqjeo7326 [place] [address]Dr. Flaco Lawrence ALP [Catalytic activity/Vol] 71 U/L Normal 46-116 [facility] Comment on above: Performed By: #### C MP ####[facility] Tbwsypqgyn7143 [place] [address]Dr. Flaco Lawrence ALT [Catalytic activity/Vol] 9 U/L Critically low 16-63 [facility] Comment on above: Performed By: #### C MP ####[facility] Aoyxmuvyqx0503 [place] [address]Dr. Flaco Lawrence Anion gap [Moles/Vol] 11.5 mmol/L Normal Th [facility] Comment on above: Performed By: #### C MP ####[facility] Rrebdzterq5070 [place] [address]Dr. Flaco Lawrence AST [Catalytic activity/Vol] 13 U/L Critically low 15-37 [facility] Comment on above: Performed By: #### C MP ####[facility] Rpslyryhkp5506 [place] [address]Dr. Flaco Lawrence Bilirubin [Mass/Vol] 1.4 mg/dL Critically high 0.2-1.0 [facility] Comment on above: Performed By: #### C MP ####[facility] Zgvjlmfsjg13[address] [place], [place] [address]Dr. Purviedith Branden Calcium [Mass/Vol] 7.9 mg/dL Critically low 8.5-10.1 [facility] Comment on above: Performed By: #### C MP ####[facility] Ejfbhgefhg840[address] [place], [place] [address]Dr. Flaco Lawrence Chloride [Moles/Vol] 110 mmol/L Critically high 98-107 [facility] Comment on above: Performed By: #### C MP ####[facility] Tscgmtuwsm547[address] [place], [place] [address]Dr. Flaco Lawrence CO2 [Moles/Vol] 26.4 mmol/L Normal 21.0-32.0 [facility] Comment on above: Performed By: #### C MP ####[facility] Cbqyaatbqn47[address] [place], [place] [address]Dr. Flaco Lawrence Creatinine [Mass/Vol] 1.35 mg/dL Critically high 0.70-1.30 [facility] Comment on above: Performed By: #### C MP ####[facility] Amkiujatnz6460[address] [place], [place] [address]Dr. Flaco Lawrence EGFR-AF ANGOLAN >60 Normal >=60 [facility] Comment on above: Performed By: #### C MP ####[facility] Hamkjflwcm047[address] [place], [place] [address]Dr. Flaco Lawrence EGFR-NON AF ANGOLAN 52 mL/min/1.73m2 Critically low >=60 [facility] Comment on above: Performed By: #### C MP ####[facility] Ivtkiosrwf0813[address] [place], [place] [address]Dr. Flaco Lawrence Globulin (S) [Mass/Vol] 2.4 g/dL Normal [facility] Comment on above: Performed By: #### C MP ####[facility] Hfdhdjcgml618[address] [place], [place] [address]Dr. Flaco Lawrence Glucose [Mass/Vol] 90 mg/dL Normal 74-106 [facility] Comment on above: Performed By: #### C MP ####[facility] Rwndiwhvxh9491 [place] [address]Dr. Flaco Lawrence Potassium [Moles/Vol] 2.8 mmol/L Critically low 3.5-5.1 [facility] Comment on above: Performed By: #### C MP ####[facility] Cjlfijqrdn49[address] [place], [place] [address]Dr. Flaco Lawrence Protein [Mass/Vol] 5.2 g/dL Critically low 6.4-8.2 [facility] Comment on above: Performed By: #### C MP ####[facility] Jxzjncyyvy5697[address] [place], [place] [address]Dr. Flaco Lawrence Sodium [Moles/Vol] 143 mmol/L Normal 136-145 [facility] Comment on above: Performed By: #### C MP ####[facility] Nlqizthtek97[address] [place], [place] [address]Dr. Flaco Lawrence Urea nitrogen [Mass/Vol] 13.0 mg/dL Normal 7.0-18.0 [facility] Comment on above: Performed By: #### C MP ####[facility] Vgclleknha1427[address] [place], [place] [address]Dr. Flaco Lawrence Urea nitrogen/Creatinine [Mass ratio] 9.6 mg/mg Normal [facility] Comment on above: Performed By: #### C MP ####[facility] Japlhsgjmi0439[address] [place], [place] [address]Dr. Flaco Lawrence AMMONIAon 02-09-2023 Ammonia (P) [Mass/Vol] ug/dL Critically low 11-32 [facility] Comment on above: Performed By: #### A MM ####[facility] Ceyspqohei7987[address] [place], [place] [address]Dr. Flaco Lawrence CBC AUTO DIFFon 02-09-2023 BASO # 0.0 103/ul Normal 0.0-0.1 [facility] Comment on above: Performed By: #### C BC ####[facility] Ruawccmqom9616 [place] [phone]. Flaco Lawrence Basophils/100 WBC (Bld) 0.6 % Normal 0.2-2.0 [facility] Comment on above: Performed By: #### C BC ####[facility] Gljsitpfxt9395[address] [place], [place] [address]Dr. Flaco Lawrence EO # 0.0 103/ul Normal 0.0-0.7 [facility] Comment on above: Performed By: #### C BC ####[facility] Fujhfotcar6706[address] [place], [place] [address]Dr. Flaco Lawrence Eosinophils/100 WBC (Bld) 0.8 % Critically low 0.9-7.0 [facility] Comment on above: Performed By: #### C BC ####[facility] Vqsqqpxxzx9[address] [place], [place] [address]Dr. Flaco Lawrence Erythrocyte distribution width (RBC) [Ratio] 15.9 % Critically high 11.0-15.0 [facility] Comment on above: Performed By: #### C BC ####[facility] Spywtuzutr7[address] [place], [place] [address]Dr. Flaco Lawrence Hematocrit (Bld) [Volume fraction] 40.6 % Critically low 42.0-54.0 [facility] Comment on above: Performed By: #### C BC ####[facility] Rj[address]vhrtju[address] [place], [place] [id number]. Flaco Lawrence Hemoglobin (Bld) [Mass/Vol] 13.1 g/dL Critically low 14.0-18.0 [facility] Comment on above: Performed By: #### C BC ####[facility] Kjjobnyazf22[address] [place] [address]Dr. Flaco Lawrence IG # 0.01 10e3/ul Normal 0.00-0.03 [facility] Comment on above: Performed By: #### C BC ####[facility] Zreijnxtwh[address] [place], [place] [address]Dr. Flaco Lawrence IG % 0.2 % Normal 0.0-0.5 [facility] Comment on above: Performed By: #### C BC ####[facility] Ncqblniuus1276 [place] [phone]. Flaco Lawrence LYMPH # 1.3 103/ul Normal 1.2-3.8 [facility] Comment on above: Performed By: #### C BC ####[facility] Jwbrapldzm1665 [place] [phone]. Flaco Branden Lymphocytes/100 WBC (Bld) 26.3 % Normal 20.5-60.0 [facility] Comment on above: Performed By: #### C BC ####[facility] Aapewglwcc8412 [place] [phone]. Purviedith Lawrence MANUAL DIFF REQ NO Normal [facility] Comment on above: Performed By: #### C BC ####[facility] Lmautkmdwl8922 [place] [phone]. Flaco Branden MCH (RBC) [Entitic mass] 27.5 pg Normal 25.9-34.0 [facility] Comment on above: Performed By: #### C BC ####[facility] Faelpzygeo6043 [place] [phone]. Flaco Lawrence MCHC (RBC) [Mass/Vol] 32.3 g/dL Normal 29.9-35.2 [facility] Comment on above: Performed By: #### C BC ####[facility] Vjmakkssdt2066 [place] [phone]. Purviedith Branden MCV (RBC) [Entitic vol] 85.3 fL Normal 80.0-94.0 [facility] Comment on above: Performed By: #### C BC ####[facility] Jovbkifzzp9929 [place] [phone]. Flaco Branden MONO # 0.4 103/ul Normal 0.3-0.8 [facility] Comment on above: Performed By: #### C BC ####[facility] Vmfeqagyxa5822 [place] [phone]. Flaco Branden Monocytes/100 WBC (Bld) 7.6 % Normal 1.7-12.0 [facility] Comment on above: Performed By: #### C BC ####[facility] Llrtpizqfa7163 [place] [phone]. Flaco Lawrence NEUT # 3.2 103/ul Normal 1.4-6.5 [facility] Comment on above: Performed By: #### C BC ####[facility] Jkfreerqia2266 [place] [phone]. Flaco Lawrence Neutrophils/100 WBC (Bld) 64.5 % Normal 43.0-75.0 [facility] Comment on above: Performed By: #### C BC ####[facility] Zalzudleio1661 [place] [phone]. Flaco Lawrence Platelet mean volume (Bld) [Entitic vol] 10.6 fL Normal 9.5-13.5 [facility] Comment on above: Performed By: #### C BC ####[facility] Ybwdvecbtp8073 [place] [phone]. Flaco Branden PLT 195 103/ul Normal 150-450 [facility] Comment on above: Performed By: #### C BC ####[facility] Veoclefsjx8346 [place] [phone]. Flaco Lawrence RBC 4.76 106/ul Normal 4.70-6.10 [facility] Comment on above: Performed By: #### C BC ####[facility] Nerrgcqhng1460 [place] [phone]. Flaco Lawrence WBC 5.0 103/ul Normal 4.0-11.0 [facility] Comment on above: Performed By: #### C BC ####[facility] Gniifjgusm6448 [place] [address]Dr. Flaco Lawrence PROF 14(COMP METB)on 023 Albumin [Mass/Vol] 3.0 g/dL Critically low 3.4-5.0 [facility] Comment on above: Performed By: #### C MP ####[facility] Cijlvsfpeq2630 [place] [phone]. Purviedith Branden Albumin/Globulin [Mass ratio] 1.2 {ratio} Normal [facility] Comment on above: Performed By: #### C MP ####[facility] Lwcmycrfkb6971 [place] [phone]. Flaco Lawrence ALP [Catalytic activity/Vol] 67 U/L Normal 46-116 [facility] Comment on above: Performed By: #### C MP ####[facility] Qrcxhqkcke1084 [place] [phone]. Flaco Lawrence ALT [Catalytic activity/Vol] 7 U/L Critically low 16-63 [facility] Comment on above: Performed By: #### C MP ####[facility] Llpjgamqkw4296 [place] [phone]. Flaco Lawrence Anion gap [Moles/Vol] 12.8 mmol/L Normal Th [facility] Comment on above: Performed By: #### C MP ####[facility] Wrscfvnxql4021 [place] [address]Dr. Flaco Lawrence AST [Catalytic activity/Vol] 16 U/L Normal 15-37 [facility] Comment on above: Performed By: #### C MP ####[facility] Fnwbvsbfjj4980 [place] [address]Dr. Flaco Lawrence Bilirubin [Mass/Vol] 2.1 mg/dL Critically high 0.2-1.0 [facility] Comment on above: Performed By: #### C MP ####[facility] Rfntinqfbv[address] [place], [place] [id number]. Flaco Lawrence Calcium [Mass/Vol] 8.1 mg/dL Critically low 8.5-10.1 [facility] Comment on above: Performed By: #### C MP ####[facility] Nbjgeaqsee9476 [place] [phone]. Flaco Lawrence Chloride [Moles/Vol] 110 mmol/L Critically high 98-107 [facility] Comment on above: Performed By: #### C MP ####[facility] Jjfibhkmte6[address] [place] [address]Dr. Flaco Lawrence CO2 [Moles/Vol] 26.0 mmol/L Normal 21.0-32.0 [facility] Comment on above: Performed By: #### C MP ####[facility] Ophejpdarr8202 [place], [place] [address]Nn. Flaco Lawrence Creatinine [Mass/Vol] 1.43 mg/dL Critically high 0.70-1.30 [facility] Comment on above: Performed By: #### C MP ####[facility] Yiyvtxzlla3985 [place], [place] [address]Hn. Flaco Lawrence EGFR-AF ANGOLAN 59 mL/min/1.73m2 Critically low >=60 [facility] Comment on above: Performed By: #### C MP ####[facility] Vwbdjgfxys2639 [place] [phone]. Flaco Lawrence EGFR-NON AF ANGOLAN 49 mL/min/1.73m2 Critically low >=60 [facility] Comment on above: Performed By: #### C MP ####[facility] Qtlwmtjwma9282 [place] [phone]. Flaco Lawrence Globulin (S) [Mass/Vol] 2.4 g/dL Normal [facility] Comment on above: Performed By: #### C MP ####[facility] Ehucrsgqfu8283 [place] [phone]. Flaco Lawrence Glucose [Mass/Vol] 77 mg/dL Normal 74-106 [facility] Comment on above: Performed By: #### C MP ####[facility] Pykqgsslvn9233 [place] [phone]. Flaco Lawrence Potassium [Moles/Vol] 2.8 mmol/L Critically low 3.5-5.1 [facility] Comment on above: Performed By: #### C MP ####[facility] Yrqnxsqebg7910 [place] [phone]. Flaco Lawrence Protein [Mass/Vol] 5.4 g/dL Critically low 6.4-8.2 [facility] Comment on above: Performed By: #### C MP ####[facility] Zfpolhqqgj8238 [place] [phone]. Flaco Lawrence Sodium [Moles/Vol] 145 mmol/L Normal 136-145 [facility] Comment on above: Performed By: #### C MP ####[facility] Dkqiqpirny7971 [place] [phone]. lFaco Lawrence Urea nitrogen [Mass/Vol] 8.0 mg/dL Normal 7.0-18.0 [facility] Comment on above: Performed By: #### C MP ####[facility] Ztpajmrkrp3940 [place] [phone]. Flaco Lawrence Urea nitrogen/Creatinine [Mass ratio] 5.6 mg/mg Normal [facility] Comment on above: Performed By: #### C MP ####[facility] Voyaujwrdi[address] [place], [place] [address]Dr. Flaco Lawrence T4on 02-09-2023 T4 [Mass/Vol] 7.10 ug/dL Normal 4.50-12.10 [facility] Comment on above: Performed By: #### T SH, T4 ####[facility] Dcyyxtqmfq[address] [place], [place] [address]Dr. Flaco Lawrence TSHon 02-09-2023 TSH 0.633 uIU/mL Normal 0.358-3.740 [facility] Comment on above: Performed By: #### T SH, T4 ####[facility] Gcoyyjyraj7[address] [place], [place] [address]Dr. Flaco Lawrence US SINGLE QUAD RT UPPERon US SINGLE QUAD RT UPPER Normal [facility] AMYLASEon 02-08-2023 Amylase [Catalytic activity/Vol] 41 U/L Normal 25-115 [facility] Comment on above: Performed By: #### A MY, LIPA, CMP ####[facility] Qpyiwmhgsl64[address] [place], [place] [address]Dr. Flaco Lawrence CBC AUTO DIFFon 02-08-2023 BASO # 0.0 103/ul Normal 0.0-0.1 [facility] Comment on above: Performed By: #### C BC ####[facility] Nyqatzvqqm5520 [place] [address]Dr. Flcao Lawrence Basophils/100 WBC (Bld) 0.7 % Normal 0.2-2.0 [facility] Comment on above: Performed By: #### C BC ####[facility] Nqnupovphr8781 [place] [phone]. Flaco Lawrence EO # 0.0 103/ul Normal 0.0-0.7 [facility] Comment on above: Performed By: #### C BC ####[facility] Podldicagg4653 [place] [address]Dr. Flaco Lawrence Eosinophils/100 WBC (Bld) 0.5 % Critically low 0.9-7.0 [facility] Comment on above: Performed By: #### C BC ####[facility] Ibgwecvztd[address] [place], [place] [address]Dr. Flaco Lawrence Erythrocyte distribution width (RBC) [Ratio] 15.9 % Critically high 11.0-15.0 [facility] Comment on above: Performed By: #### C BC ####[facility] Fxampluzjp8801[address] [place], [place] [address]Dr. Flaco Lawrence Hematocrit (Bld) [Volume fraction] 46.1 % Normal 42.0-54.0 [facility] Comment on above: Performed By: #### C BC ####[facility] Drvasonasf44[address] [place], [place] [address]Dr. Flaco Lawrence Hemoglobin (Bld) [Mass/Vol] 15.2 g/dL Normal 14.0-18.0 [facility] Comment on above: Performed By: #### C BC ####[facility] Lqsksqynos9[address] [place], [place] [address]Dr. Flaco Lawrence IG # 0.02 10e3/ul Normal 0.00-0.03 [facility] Comment on above: Performed By: #### C BC ####[facility] Znekofgcjv[address] [place], [place] [address]Dr. Flaco Lawrence IG % 0.3 % Normal 0.0-0.5 [facility] Comment on above: Performed By: #### C BC ####[facility] Aknwomvxyb[address] [place], [place] [address]Dr. Flaco Lawrence LYMPH # 1.5 103/ul Normal 1.2-3.8 [facility] Comment on above: Performed By: #### C BC ####[facility] Wuhxbuyhoc2945 [place] [phone]. Flaco Lawrence Lymphocytes/100 WBC (Bld) 26.1 % Normal 20.5-60.0 [facility] Comment on above: Performed By: #### C BC ####[facility] Ijpbekwcpe5808 [place] [phone]. Flaco Branden MANUAL DIFF REQ NO Normal [facility] Comment on above: Performed By: #### C BC ####[facility] Bonibvoabb4052 [place] [phone]. Flaco Branden MCH (RBC) [Entitic mass] 27.9 pg Normal 25.9-34.0 [facility] Comment on above: Performed By: #### C BC ####[facility] Ycvowmyjnd3923 [place] [address]Dr. Flaco Lawrence MCHC (RBC) [Mass/Vol] 33.0 g/dL Normal 29.9-35.2 [facility] Comment on above: Performed By: #### C BC ####[facility] Hiqsvhuyzj4547 [place] [phone]. Flaco Branden MCV (RBC) [Entitic vol] 84.6 fL Normal 80.0-94.0 [facility] Comment on above: Performed By: #### C BC ####[facility] Jvuscpddpm3648 [place] [phone]. Purviedith Branden MONO # 0.6 103/ul Normal 0.3-0.8 [facility] Comment on above: Performed By: #### C BC ####[facility] Qsmqhmqpmr2672 [place] [phone]. Flaco Branden Monocytes/100 WBC (Bld) 9.6 % Normal 1.7-12.0 [facility] Comment on above: Performed By: #### C BC ####[facility] Cmtzyifgop7214 [place] [phone]. Flaco Lawrence NEUT # 3.7 103/ul Normal 1.4-6.5 [facility] Comment on above: Performed By: #### C BC ####[facility] Niphvwpomh3158 [place] [phone]. Flaco Lawrence Neutrophils/100 WBC (Bld) 62.8 % Normal 43.0-75.0 [facility] Comment on above: Performed By: #### C BC ####[facility] Rzcijyfatg1365 [place] [phone]. Flaco Lawrence Platelet mean volume (Bld) [Entitic vol] 10.6 fL Normal 9.5-13.5 [facility] Comment on above: Performed By: #### C BC ####[facility] Feucdabzfq5675 [place] [phone]. Flaco Lawrence PLT 255 103/ul Normal 150-450 [facility] Comment on above: Performed By: #### C BC ####[facility] Cwkeaehaof[address] [place], [place] [address]Dr. Flaco Lawrence RBC 5.45 106/ul Normal 4.70-6.10 [facility] Comment on above: Performed By: #### C BC ####[facility] Upuxghaeww60[address] [place], [place] [address]Dr. Flaco Lawrence WBC 5.8 103/ul Normal 4.0-11.0 [facility] Comment on above: Performed By: #### C BC ####[facility] Enwggdpfjn[address] [place], [place] [address]Dr. Flaco Lawrence CULTURE BLOODon 02-08-2023 Microscopic examination of blood, culture Culture Observations: NO GROWTH AT 36-48 HOURS. FINAL TO FOLLOW. Normal [facility] Comment on above: Performed By: #### B LDCX1 ####[facility] Wwyhrzfvlf[address] [place], [place] [address]Dr. Flaco Lawrence ER URINE PROFILEon 3 Bilirubin Ql (U) Negative Normal NEGATIVE [facility] Comment on above: Performed By: #### E RUR ####[facility] Mzjcmauekk[address] [place], [place] [address]Dr. Flaco Lawrence Clarity (U) CLEAR Normal CLEAR [facility] Comment on above: Performed By: #### E RUR ####[facility] Bwpxhpsqqh8717 [place] [address]Dr. Flaco Lawrence Color (U) YELLOW Normal YELLOW [facility] Comment on above: Performed By: #### E RUR ####[facility] Fjapxgjsrb[address] [place], [place] [address]Dr. Flaco Lawrence ERUAHD A micrscopic examination will be performed if indicated. Normal [facility] Comment on above: Performed By: #### E RUR ####[facility] Jgaikkymfv1275[address] [place], [place] [address]Dr. Flaco Lawrence Glucose Ql (U) Negative Normal NEGATIVE The [facility] Comment on above: Performed By: #### E RUR ####[facility] Gmcijwjlry8[address] [place], [place] [address]Dr. Flaco Lawrence Hemoglobin Ql (U) Negative Normal NEGATIVE [facility] Comment on above: Performed By: #### E RUR ####[facility] Fsqwqkyssw50[address] [place], [place] [address]Dr. Flaco Lawrence Ketones Ql (U) 15 mg/dl Abnormal NEGATIVE The [facility] Comment on above: Performed By: #### E RUR ####[facility] Hpyfnudrbx67[address] [place], [place] [address]Dr. Flaco Lawrence LEUKOCYTES Negative Normal NEGATIVE [facility] Comment on above: Performed By: #### E RUR ####[facility] Qvoraoempe12[address] [place], [place] [address]Dr. Flaco Lawrence Nitrite Ql (U) Negative Normal NEGATIVE [facility] Comment on above: Performed By: #### E RUR ####[facility] Zjbcbywphy07[address] [place], [place] [address]Dr. Flaco Lawrence pH (U) 6.5 [pH] Normal 5-9 [facility] Comment on above: Performed By: #### E RUR ####[facility] Ygepnziyyf16[address] [place], [place] [address]Dr. Flaco Lawrence SPEC GRAVITY 1.010 Normal 1.005-<=1.02 5 [facility] Comment on above: Performed By: #### E RUR ####[facility] Oszpyikzzw5308 [place] [address]Dr. Flaco Lawrence UA PROTEIN Negative Normal NEGATIVE/ TRACE [facility] Comment on above: Performed By: #### E RUR ####[facility] Idehzksasp3822 [place] [address]Dr. Flaco Lawrence UR MICRO IND NOT INDICATED Normal [facility] Comment on above: Performed By: #### E RUR ####[facility] Zsnemuwgnw6735 [place] [address]Dr. Flaco Lawrence Urobilinogen Qn (U) 2.0 {Tuan'U}/dL Abnormal 0.2 - 1. 0 [facility] Comment on above: Performed By: #### E RUR ####[facility] Jnistbehck3[address] [place], [place] [address]Dr. Flaco Lawrence LIPASEon 02-08-2023 Lipase [Catalytic activity/Vol] 280.0 U/L Normal 73.0-393.0 [facility] Comment on above: Performed By: #### A MY, LIPA, CMP ####[facility] Qknsvpfjlp[address] [place], [place] [address]Dr. Flaco Lawrence PROF 14(COMP METB)on 023 Albumin [Mass/Vol] 3.5 g/dL Normal 3.4-5.0 [facility] Comment on above: Performed By: #### A MY, LIPA, CMP ####[facility] Wulgtrbrss14[address] [place], [place] [address]Dr. Flaco Lawrence Albumin/Globulin [Mass ratio] 1.2 {ratio} Normal [facility] Comment on above: Performed By: #### A MY, LIPA, CMP ####[facility] Pdkztpadmp9031 [place] [address]Dr. Flaco Lawrence ALP [Catalytic activity/Vol] 81 U/L Normal 46-116 [facility] Comment on above: Performed By: #### A MY, LIPA, CMP ####[facility] Odrplcwooa6860 [place] [address]Dr. Flaco Lawrence ALT [Catalytic activity/Vol] 7 U/L Critically low 16-63 [facility] Comment on above: Performed By: #### A MY LIPA, CMP ####[facility] Gnxvfcqave2717 [place] [address]Dr. Flaco Lawrence Anion gap [Moles/Vol] 10.3 mmol/L Normal Th [facility] Comment on above: Performed By: #### A MY, LIPA, CMP ####[facility] Minixkkvau1813 [place] [address]Dr. Flaco Lawrence AST [Catalytic activity/Vol] 20 U/L Normal 15-37 [facility] Comment on above: Performed By: #### A MY LIPA, CMP ####[facility] Ajmnbhwnft6970 [place] [address]Dr. Flaco Lawrence Bilirubin [Mass/Vol] 3.1 mg/dL Critically high 0.2-1.0 [facility] Comment on above: Performed By: #### A MY LIPA, CMP ####[facility] Wtqmnlcijd[address] [place], [place] [address]Dr. Flaco Lawrence Calcium [Mass/Vol] 8.7 mg/dL Normal 8.5-10.1 [facility] Comment on above: Performed By: #### A MY LIPA, CMP ####[facility] Nwjxfxkuog0016[address] [place], [place] [address]Dr. Flaco Lawrence Chloride [Moles/Vol] 103 mmol/L Normal 98-107 [facility] Comment on above: Performed By: #### A MY, LIPA, CMP ####[facility] Iouepvssha[address] [place], [place] [address]Dr. Flaco Lawrence CO2 [Moles/Vol] 30.5 mmol/L Normal 21.0-32.0 [facility] Comment on above: Performed By: #### A MY, LIPA, CMP ####[facility] Euxfncmneu4561 [place] [address]Dr. Flaco Lawrence Creatinine [Mass/Vol] 1.81 mg/dL Critically high 0.70-1.30 [facility] Comment on above: Performed By: #### A MY, LIPA, CMP ####[facility] Aicgghsiuf6916 [place] [address]Dr. Flaco Lawrence EGFR-AF ANGOLAN 45 mL/min/1.73m2 Critically low >=60 [facility] Comment on above: Performed By: #### A MY LIPA, CMP ####[facility] Iqbqsemxrn9149 [place] [address]Dr. Flaco Lawrence EGFR-NON AF ANGOLAN 37 mL/min/1.73m2 Critically low >=60 [facility] Comment on above: Performed By: #### A MY LIPA, CMP ####[facility] Rosjufvkms8908 [place] [address]Dr. Flaco Lawrence Globulin (S) [Mass/Vol] 3.0 g/dL Normal [facility] Comment on above: Performed By: #### A MY LIPA, CMP ####[facility] Dphwtaffqw500[address] [place], [place] [address]Dr. Flaco Lawrence Glucose [Mass/Vol] 94 mg/dL Normal 74-106 [facility] Comment on above: Performed By: #### A MY LIPA, CMP ####[facility] Zxaemnumzt6884[address] [place], [place] [address]Dr. Flaco Lawrence Potassium [Moles/Vol] 2.5 mmol/L Critically low 3.5-5.1 [facility] Comment on above: Performed By: #### A MY LIPA, CMP ####[facility] Omeznrgilk[address] [place], [place] [address]Dr. Flaco Lawrence Protein [Mass/Vol] 6.5 g/dL Normal 6.4-8.2 The [facility] Comment on above: Performed By: #### A MY, LIPA, CMP ####[facility] Odcgrbuqac8216[address] [place], [place] [address]Dr. Flaco Lawrence Sodium [Moles/Vol] 133 mmol/L Critically low 136-145 Th [facility] Comment on above: Performed By: #### A MY, LIPA, CMP ####[facility] Ejwzwezbby4[address] [place], [place] [address]Dr. Flaco Lawrence Urea nitrogen [Mass/Vol] 10.0 mg/dL Normal 7.0-18.0 [facility] Comment on above: Performed By: #### A DEMOND GU, CMP ####[facility] Uaugzfanmx365[address] [place], [place] [address]Dr. Flaco Lawrence Urea nitrogen/Creatinine [Mass ratio] 5.5 mg/mg Normal [facility] Comment on above: Performed By: #### A DEMOND GU, CMP ####[facility] Watsdhqlxr6134[address] [place], [place] [address]Dr. Flaco Lawrence PROF CHEM 8 (BAS METB)on Anion gap [Moles/Vol] 16.8 mmol/L Normal [facility] Comment on above: Performed By: #### B MP ####[facility] Dhsrxgqmzl[address] [place], [place] [address]Dr. Flaco Lawrence Calcium [Mass/Vol] 8.5 mg/dL Normal 8.5-10.1 [facility] Comment on above: Performed By: #### B MP ####[facility] Ggrydyncfh[address] [place], [place] [address]Dr. Flaco Lawrence Chloride [Moles/Vol] 107 mmol/L Normal 98-107 [facility] Comment on above: Performed By: #### B MP ####[facility] Xmacqeaiwt760[address] [place], [place] [address]Dr. Flaco Lawrence CO2 [Moles/Vol] 25.0 mmol/L Normal 21.0-32.0 [facility] Comment on above: Performed By: #### B MP ####[facility] Sohtvlywge50[address] [place], [place] [address]Dr. Flaco Lawrence Creatinine [Mass/Vol] 1.62 mg/dL Critically high 0.70-1.30 [facility] Comment on above: Performed By: #### B MP ####[facility] Rrapywlurz6846[address] [place], [place] [address]Dr. Flaco Lawrence EGFR-AF ANGOLAN 51 mL/min/1.73m2 Critically low >=60 [facility] Comment on above: Performed By: #### B MP ####[facility] Rzsubaggvx5120 [place] [address]Dr. Flaco Lawrence EGFR-NON AF ANGOLAN 42 mL/min/1.73m2 Critically low >=60 [facility] Comment on above: Performed By: #### B MP ####[facility] Miighzcesr8070 [place] [address]Dr. Flaco Lawrence Glucose [Mass/Vol] 73 mg/dL Critically low 74-106 [facility] Comment on above: Performed By: #### B MP ####[facility] Qeobnowtxc7408 [place] [address]Dr. Flaco Lawrence Potassium [Moles/Vol] 3.8 mmol/L Normal 3.5-5.1 [facility] Comment on above: Performed By: #### B MP ####[facility] Bocdugzrgw65[address] [place], [place] [address]Dr. Flaco Lawrence Sodium [Moles/Vol] 145 mmol/L Normal 136-145 [facility] Comment on above: Performed By: #### B MP ####[facility] Hvaybszkid67[address] [place], [place] [address]Dr. Flaco Branden Urea nitrogen [Mass/Vol] 10.0 mg/dL Normal 7.0-18.0 [facility] Comment on above: Performed By: #### B MP ####[facility] Vpkatllsgu20[address] [place], [place] [address]Dr. Flaco Branden Urea nitrogen/Creatinine [Mass ratio] 6.2 mg/mg Normal [facility] Comment on above: Performed By: #### B MP ####[facility] Onhaaagqry8[address] [place], [place] [address]Dr. Flaco Branden XR CHEST 1 Von 02-08-2023 XR CHEST 1 V Normal [facility] XR FOOT RT MIN 3 VIEWSon XR FOOT RT MIN 3 VIEWS Normal [facility] CBC AUTO DIFFon 11-18-2022 BASO # 0.1 103/ul Normal 0.0-0.1 [facility] Comment on above: Performed By: #### C BC ####[facility] Anyvhghcex7[address] [place], [place] [address]Dr. Flaco Lawrence Basophils/100 WBC (Bld) 0.6 % Normal 0.2-2.0 [facility] Comment on above: Performed By: #### C BC ####[facility] Hdcuvijlsl7245 [place] [address]Dr. Flaco Lawrence EO # 0.2 103/ul Normal 0.0-0.7 [facility] Comment on above: Performed By: #### C BC ####[facility] Gbnspenmpa0396 [place] [address]Dr. Flaco Lawrence Eosinophils/100 WBC (Bld) 1.5 % Normal 0.9-7.0 [facility] Comment on above: Performed By: #### C BC ####[facility] Atetaoazvh0836[address] [place], [place] [address]Dr. Flaco Lawrence Erythrocyte distribution width (RBC) [Ratio] 16.2 % Critically high 11.0-15.0 [facility] Comment on above: Performed By: #### C BC ####[facility] Xeqkdlvlgy217[address] [place], [place] [address]Dr. Flaco Lawrence Hematocrit (Bld) [Volume fraction] 35.1 % Critically low 42.0-54.0 [facility] Comment on above: Performed By: #### C BC ####[facility] Fmdxaggznf33[address] [place], [place] [address]Dr. Flaco Lawrence Hemoglobin (Bld) [Mass/Vol] 11.5 g/dL Critically low 14.0-18.0 [facility] Comment on above: Performed By: #### C BC ####[facility] Zazojhebbg04[address] [place], [place] [address]Dr. Flaco Lawrence IG # 0.05 10e3/ul Critically high 0.00-0.03 [facility] Comment on above: Performed By: #### C BC ####[facility] Xirvowqysd12[address] [place], [place] [address]Dr. Flaco Lawrence IG % 0.5 % Normal 0.0-0.5 [facility] Comment on above: Performed By: #### C BC ####[facility] Coastygiui3156 [place] [phone]. Flaco Branden LYMPH # 2.1 103/ul Normal 1.2-3.8 [facility] Comment on above: Performed By: #### C BC ####[facility] Nqxltqmlxk8088 [place] [phone]. Purviedith Lawrence Lymphocytes/100 WBC (Bld) 20.5 % Normal 20.5-60.0 [facility] Comment on above: Performed By: #### C BC ####[facility] Zxayrdmiwq2405 [place] [address]Dr. Purviedith Lawrence MANUAL DIFF REQ NO Normal [facility] Comment on above: Performed By: #### C BC ####[facility] Kgziztqhli0111 [place] [address]Dr. Flaco Branden MCH (RBC) [Entitic mass] 28.1 pg Normal 25.9-34.0 [facility] Comment on above: Performed By: #### C BC ####[facility] Fkalzfxgyl[address] [place], [place] [address]Dr. Flaco Branden MCHC (RBC) [Mass/Vol] 32.8 g/dL Normal 29.9-35.2 [facility] Comment on above: Performed By: #### C BC ####[facility] Scqztaamuw9197 [place] [address]Dr. Flaco Lawrence MCV (RBC) [Entitic vol] 85.8 fL Normal 80.0-94.0 [facility] Comment on above: Performed By: #### C BC ####[facility] Oamfeylqiw5668 [place] [address]Dr. Flaco Lawrence MONO # 1.2 103/ul Critically high 0.3-0.8 [facility] Comment on above: Performed By: #### C BC ####[facility] Scwfhktmhk1102 [place] [address]Dr. Flaco Lawrence Monocytes/100 WBC (Bld) 11.5 % Normal 1.7-12.0 [facility] Comment on above: Performed By: #### C BC ####[facility] Soukdvresw7414 [place] [phone]. Flaco Lawrence NEUT # 6.5 103/ul Normal 1.4-6.5 [facility] Comment on above: Performed By: #### C BC ####[facility] Qyvfehxwek1755 [place] [address]Dr. Flaco Lawrence Neutrophils/100 WBC (Bld) 65.4 % Normal 43.0-75.0 [facility] Comment on above: Performed By: #### C BC ####[facility] Nrqobsupur2263 [place] [address]Dr. Flaco Branden Platelet mean volume (Bld) [Entitic vol] 10.3 fL Normal 9.5-13.5 [facility] Comment on above: Performed By: #### C BC ####[facility] Gyrahmwhzt[address] [place], [place] [address]Dr. Flaco Branden PLT 399 103/ul Normal 150-450 [facility] Comment on above: Performed By: #### C BC ####[facility] Rushmpptxr[address] [place], [place] [address]Dr. Flaco Branden RBC 4.09 106/ul Critically low 4.70-6.10 [facility] Comment on above: Performed By: #### C BC ####[facility] Ajetttyzjy[address] [place], [place] [address]Dr. Flaco Branden WBC 10.0 103/ul Normal 4.0-11.0 [facility] Comment on above: Performed By: #### C BC ####[facility] Vqyzwynrar4441 [place] [address]Dr. Flaco Lawrence PROF 14(COMP METB)on 023 Albumin [Mass/Vol] 2.4 g/dL Critically low 3.4-5.0 Th [facility] Comment on above: Performed By: #### C MP ####[facility] Unmrievyan5147 [place] [address]Dr. Flaco Lawrence Albumin/Globulin [Mass ratio] 0.6 {ratio} Normal [facility] Comment on above: Performed By: #### C MP ####[facility] Yvxuxmpexu6400 [place] [address]Dr. Flcao Lawrence ALP [Catalytic activity/Vol] 130 U/L Critically high 46-116 [facility] Comment on above: Performed By: #### C MP ####[facility] Xahweoibyr[address] [place], [place] [address]Dr. Flaco Lawrence ALT [Catalytic activity/Vol] 12 U/L Critically low 16-63 [facility] Comment on above: Performed By: #### C MP ####[facility] Ikhryurslx87[address] [place], [place] [address]Dr. Flaco Lawrence Anion gap [Moles/Vol] 13.6 mmol/L Normal [facility] Comment on above: Performed By: #### C MP ####[facility] [address] [place], [place] [address]Dr. Flaco Lawrence AST [Catalytic activity/Vol] 27 U/L Normal 15-37 [facility] Comment on above: Performed By: #### C MP ####[facility] M[address]asbflfk[address] [place], [place] [address]Dr. Flaco Lawrence Bilirubin [Mass/Vol] 0.5 mg/dL Normal 0.2-1.0 [facility] Comment on above: Performed By: #### C MP ####[facility] Iycoyhcudo[address] [place], [place] [address]Dr. Flaco Lawrence Calcium [Mass/Vol] 9.2 mg/dL Normal 8.5-10.1 [facility] Comment on above: Performed By: #### C MP ####[facility] Dzlirsjczz6[address] [place], [place] [address]Dr. Flaco Lawrence Chloride [Moles/Vol] 98 mmol/L Normal 98-107 [facility] Comment on above: Performed By: #### C MP ####[facility] Ruxiadhwrl[address] [place], [place] [address]Dr. Flaco Lawrence CO2 [Moles/Vol] 24.0 mmol/L Normal 21.0-32.0 The [facility] Comment on above: Performed By: #### C MP ####[facility] Yqmatvqgfw[address] [place], [place] [address]Dr. Purviedith Lawrence Creatinine [Mass/Vol] 1.67 mg/dL Critically high 0.70-1.30 [facility] Comment on above: Performed By: #### C MP ####[facility] Gib[address]fjvpd[address] [place] [address]Dr. Flaco Lawrence EGFR-AF ANGOLAN 49 mL/min/1.73m2 Critically low >=60 [facility] Comment on above: Performed By: #### C MP ####[facility] Dlyvbrrlta9[address] [place] [address]Dr. Purviedith Branden EGFR-NON AF ANGOLAN 41 mL/min/1.73m2 Critically low >=60 [facility] Comment on above: Performed By: #### C MP ####[facility] Akbuwvbhdl7699 [place] [address]Dr. Flaco Lawrence Globulin (S) [Mass/Vol] 4.3 g/dL Normal [facility] Comment on above: Performed By: #### C MP ####[facility] Zlzcblahha[address] [place], [place] [address]Dr. Flaco Lawrence Glucose [Mass/Vol] 103 mg/dL Normal 74-106 [facility] Comment on above: Performed By: #### C MP ####[facility] Hogukrvvlt[address] [place], [place] [address]Dr. Flaco Lawrence Potassium [Moles/Vol] 3.6 mmol/L Normal 3.5-5.1 [facility] Comment on above: Performed By: #### C MP ####[facility] Gdhqemwwxl2767 [place] [address]Dr. Flaco Lawrence Protein [Mass/Vol] 6.7 g/dL Normal 6.4-8.2 The [facility] Comment on above: Performed By: #### C MP ####[facility] Rhrsmjhrie4302 [place] [address]Dr. Flaco Lawrence Sodium [Moles/Vol] 132 mmol/L Critically low 136-145 [facility] Comment on above: Performed By: #### C MP ####[facility] Qqimksufgm9634 [place] [address]Dr. Flaco Lawrence Urea nitrogen [Mass/Vol] 26.0 mg/dL Critically high 7.0-18.0 [facility] Comment on above: Performed By: #### C MP ####[facility] Jzdlsolrfh2003 [place] [address]Dr. Flaco Branden Urea nitrogen/Creatinine [Mass ratio] 15.6 mg/mg Normal [facility] Comment on above: Performed By: #### C MP ####[facility] Vrloeamegt4874 [place] [address]Dr. Flaco Branden CBC AUTO DIFFon 11-17-2022 BASO # 0.0 103/ul Normal 0.0-0.1 [facility] Comment on above: Performed By: #### C BC ####[facility] Ybkmkijfil[address] [place], [place] [address]Dr. Purviedith Lawrence Basophils/100 WBC (Bld) 0.4 % Normal 0.2-2.0 [facility] Comment on above: Performed By: #### C BC ####[facility] Jsaceqlchl6[address] [place], [place] [address]Dr. Flaco Branden EO # 0.0 103/ul Normal 0.0-0.7 [facility] Comment on above: Performed By: #### C BC ####[facility] Tqoikukseb98[address] [place], [place] [address]Dr. Flaco Branden Eosinophils/100 WBC (Bld) 0.4 % Critically low 0.9-7.0 [facility] Comment on above: Performed By: #### C BC ####[facility] Crjkdutend7[address] [place], [place] [address]Dr. Flaco Lawrence Erythrocyte distribution width (RBC) [Ratio] 16.0 % Critically high 11.0-15.0 [facility] Comment on above: Performed By: #### C BC ####[facility] Wcsckwirwd[address] [place], [place] [address]Dr. Flaco Branden Hematocrit (Bld) [Volume fraction] 36.4 % Critically low 42.0-54.0 [facility] Comment on above: Performed By: #### C BC ####[facility] Akuwiopvyd2320 [place] [phone]. Flaco Lawrence Hemoglobin (Bld) [Mass/Vol] 12.0 g/dL Critically low 14.0-18.0 [facility] Comment on above: Performed By: #### C BC ####[facility] Yomzvfgarl2421 [place] [phone]. Flaco Lawrence IG # 0.03 10e3/ul Normal 0.00-0.03 [facility] Comment on above: Performed By: #### C BC ####[facility] Abmarlemsp8144 [place] [address]Dr. Flaco Lawrence IG % 0.3 % Normal 0.0-0.5 [facility] Comment on above: Performed By: #### C BC ####[facility] Jfjvrwbngx1026 [place] [address]Dr. Flaco Lawrence LYMPH # 1.6 103/ul Normal 1.2-3.8 [facility] Comment on above: Performed By: #### C BC ####[facility] Dtwqlovcbm[address] [place], [place] [address]Dr. Flaco Lawrence Lymphocytes/100 WBC (Bld) 14.7 % Critically low 20.5-60.0 [facility] Comment on above: Performed By: #### C BC ####[facility] Owwuxmvrhu4460 [place] [address]Dr. Flaco Lawrence MANUAL DIFF REQ NO Normal [facility] Comment on above: Performed By: #### C BC ####[facility] Hchavbvweu[address] [place], [place] [address]Dr. Flaco Lawrence MCH (RBC) [Entitic mass] 28.2 pg Normal 25.9-34.0 [facility] Comment on above: Performed By: #### C BC ####[facility] Krqhtpftpl[address] [place], [place] [address]Dr. Flaco Lawrence MCHC (RBC) [Mass/Vol] 33.0 g/dL Normal 29.9-35.2 [facility] Comment on above: Performed By: #### C BC ####[facility] Owjctywayo3072 [place] [phone]. Flaco Lawrence MCV (RBC) [Entitic vol] 85.4 fL Normal 80.0-94.0 [facility] Comment on above: Performed By: #### C BC ####[facility] Uvcfraggty4589 [place] [phone]. Flaco Lawrence MONO # 1.4 103/ul Critically high 0.3-0.8 [facility] Comment on above: Performed By: #### C BC ####[facility] Pjoagmefsw9843 [place] [phone]. Flaco Lawrence Monocytes/100 WBC (Bld) 12.6 % Critically high 1.7-12.0 [facility] Comment on above: Performed By: #### C BC ####[facility] Aiafkirlgn6018 [place] [phone]. Flaco Lawrence NEUT # 7.7 103/ul Critically high 1.4-6.5 [facility] Comment on above: Performed By: #### C BC ####[facility] Pzmpwjbfeb3889 [place] [phone]. Flaco Lawrence Neutrophils/100 WBC (Bld) 71.6 % Normal 43.0-75.0 [facility] Comment on above: Performed By: #### C BC ####[facility] Obvhkjiqzz4467 [place] [phone]. Flaco Lawrence Platelet mean volume (Bld) [Entitic vol] 9.5 fL Normal 9.5-13.5 [facility] Comment on above: Performed By: #### C BC ####[facility] Irmwpvpanx4807 [place] [phone]. Flaco Lawrence PLT 462 103/ul Critically high 150-450 [facility] Comment on above: Performed By: #### C BC ####[facility] Eptudbsdgo[address] [place], [place] [id number]. Flaco Lawrence RBC 4.26 106/ul Critically low 4.70-6.10 [facility] Comment on above: Performed By: #### C BC ####[facility] Jknbdtzguh4925 [place] [address]Dr. Flaco Lawrence WBC 10.8 103/ul Normal 4.0-11.0 [facility] Comment on above: Performed By: #### C BC ####[facility] Eytzvzeceo8911 [place] [address]Dr. Flaco Lawrence MRI CSPINE WO CONon 11-17-19 23 MRI CSPINE WO CON Normal [facility] PROF 14(COMP METB)on 023 Albumin [Mass/Vol] 2.4 g/dL Critically low 3.4-5.0 [facility] Comment on above: Performed By: #### C MP ####[facility] Sonybptmol2197 [place] [address]Dr. Flaco Lawrence Albumin/Globulin [Mass ratio] 0.5 {ratio} Normal [facility] Comment on above: Performed By: #### C MP ####[facility] Ctixbnnxji1830 [place] [address]Dr. Flaco Lawrence ALP [Catalytic activity/Vol] 132 U/L Critically high 46-116 [facility] Comment on above: Performed By: #### C MP ####[facility] Y[address]phbssvdp[address] [place], [place] [address]Dr. Flaco Lawrence ALT [Catalytic activity/Vol] 18 U/L Normal 16-63 [facility] Comment on above: Performed By: #### C MP ####[facility] Vyhqbbsbeb9548 [place] [address]Dr. Flaco Lawrence Anion gap [Moles/Vol] 15.7 mmol/L Normal Th [facility] Comment on above: Performed By: #### C MP ####[facility] Gqdcemhnpg7121 [place] [address]Dr. Flaco Lawrence AST [Catalytic activity/Vol] 26 U/L Normal 15-37 [facility] Comment on above: Performed By: #### C MP ####[facility] Yzqvmdpahu3261 [place] [address]Dr. Flaco Lawrence Bilirubin [Mass/Vol] 0.5 mg/dL Normal 0.2-1.0 [facility] Comment on above: Performed By: #### C MP ####[facility] Pxrsztnfgg8399 [place] [phone]. Flaco Lawrence Calcium [Mass/Vol] 9.2 mg/dL Normal 8.5-10.1 [facility] Comment on above: Performed By: #### C MP ####[facility] Lenvigjhen3143 [place] [phone]. Flaco Lawrence Chloride [Moles/Vol] 99 mmol/L Normal 98-107 [facility] Comment on above: Performed By: #### C MP ####[facility] Isvangqohs0428 [place] [address]Dr. Flaco Lawrence CO2 [Moles/Vol] 23.9 mmol/L Normal 21.0-32.0 [facility] Comment on above: Performed By: #### C MP ####[facility] Gyhybcsjyh7[address] [place], [place] [address]Dr. Flaco Branden Creatinine [Mass/Vol] 1.65 mg/dL Critically high 0.70-1.30 [facility] Comment on above: Performed By: #### C MP ####[facility] Ybapvbmhys7[address] [place], [place] [address]Dr. Flaco Branden EGFR-AF ANGOLAN 50 mL/min/1.73m2 Critically low >=60 [facility] Comment on above: Performed By: #### C MP ####[facility] Qxzvkehfns37[address] [place], [place] [address]Dr. Flaco Branden EGFR-NON AF ANGOLAN 41 mL/min/1.73m2 Critically low >=60 [facility] Comment on above: Performed By: #### C MP ####[facility] Fxhizcuzfh9037[address] [place], [place] [address]Dr. Purviedith Branden Globulin (S) [Mass/Vol] 4.5 g/dL Normal [facility] Comment on above: Performed By: #### C MP ####[facility] Zcwpjvysex8613 [place] [phone]. Flaco Lawrence Glucose [Mass/Vol] 116 mg/dL Critically high 74-106 T [facility] Comment on above: Performed By: #### C MP ####[facility] Vlyhqplvnk4509 [place] [address]Dr. Flaco Lawrence Potassium [Moles/Vol] 3.6 mmol/L Normal 3.5-5.1 [facility] Comment on above: Performed By: #### C MP ####[facility] Pplerfurrd6963 [place] [address]Dr. Flaco Lawrence Protein [Mass/Vol] 6.9 g/dL Normal 6.4-8.2 [facility] Comment on above: Performed By: #### C MP ####[facility] Xgzplkshjc8248 [place] [address]Dr. Flaco Lawrence Sodium [Moles/Vol] 135 mmol/L Critically low 136-145 Th [facility] Comment on above: Performed By: #### C MP ####[facility] Vmsxelbedw[address] [place], [place] [address]Dr. Flaco Lawrence Urea nitrogen [Mass/Vol] 21.0 mg/dL Critically high 7.0-18.0 [facility] Comment on above: Performed By: #### C MP ####[facility] Vpkyldyrza87[address] [place], [place] [address]Dr. Flaco Lawrence Urea nitrogen/Creatinine [Mass ratio] 12.7 mg/mg Normal [facility] Comment on above: Performed By: #### C MP ####[facility] Mpwzxglbps6860[address] [place], [place] [address]Dr. Flaco Lawrence CBC W MANUAL DIFFon 11-16-19 23 ATYPICAL LYMPH # Normal [facility] Comment on above: Performed By: #### C BCMAN ####[facility] Oedkqqbund14[address] [place], [place] [address]Dr. Flaco Lawrence ATYPICAL LYMPH % Normal [facility] Comment on above: Performed By: #### C BCMAN ####[facility] Hqncjrdzpy5852 [place] [address]Dr. Flaco Lawrence BAND # 0.0 103/ul Normal 0.0-0.3 [facility] Comment on above: Performed By: #### C BCMAN ####[facility] Lhmxifitht3874 [place] [phone]. Flaco Lawrence BAND % 0 % Normal 0-5 [facility] Comment on above: Performed By: #### C BCMAN ####[facility] Kbfvfjeesu6637 [place] [phone]. Yiedith Lawrence BASOM # 0.00 103/ul Normal 0.00-0.10 [facility] Comment on above: Performed By: #### C BCMAN ####[facility] Afoemjtlst1433 [place] [phone]. Yiedith Lawrence BASOM % 0.0 % Critically low 0.2-2.0 The [facility] Comment on above: Performed By: #### C BCMAN ####[facility] Rpkgqdhuoo2124 [place] [address]Dr. Yiedith Lawrence BLAST # Normal [facility] Comment on above: Performed By: #### C BCGAYATHRI ####[facility] Qqpbhyrzty1355 [place] [address]Dr. Yiedith Lawrence BLAST % Normal [facility] Comment on above: Performed By: #### C BCGAYATHRI ####[facility] Zrwpksmhds5188 [place] [address]Dr. Flaco Lawrence CORRECTED WBC Normal 4.0-11.0 [facility] Comment on above: Performed By: #### C BCMAN ####[facility] Qwnolarzip1954 [place] [address]Dr. Yiedith Lawrence EOS # 0.00 103/ul Normal 0.00-0.70 [facility] Comment on above: Performed By: #### C BCMAN ####[facility] Pnqwocjeme8576 [place] [address]Dr. Flaco Lawrence EOS% 0.0 % Critically low 0.9-7.0 [facility] Comment on above: Performed By: #### C BCMAN ####[facility] Lamttipnyv4458 [place] [address]Dr. Flaco Lawrence HCT 35.9 % Critically low 42.0-54.0 [facility] Comment on above: Performed By: #### C C[place] ####[facility] Nwggmaldyu7071 [place], [place] [address]Dl. Flaco Lawrence HGB 12.0 g/dl Critically low 14.0-18.0 [facility] Comment on above: Performed By: #### C C[place] ####[facility] Ywnlbnadfg0409 [place], [place] [address]Nr. Flaco Lawrence LYMPHM # 1.42 103/ul Normal 1.20-3.80 [facility] Comment on above: Performed By: #### C C[place] ####[facility] Ehdaxuwyde1124 [place], [place] [address]Nf. Flaco Lawrence LYMPHM% 11.0 % Critically low 20.5-60.0 [facility] Comment on above: Performed By: #### C C[place] ####[facility] Qzgmrkzrhw8213 [place] [phone]. Flaco Lawrence MCH 28.6 pg Normal 25.9-34.0 [facility] Comment on above: Performed By: #### C [place] ####[facility] Eiixfgjmzo7746 [place], [place] [address]Nw. Flaco Lawrence MCHC 33.4 g/dl Normal 29.9-35.2 [facility] Comment on above: Performed By: #### C C[place] ####[facility] Pkbhzlbtby2909 [place], [place] [address]Wu. Flaco Lawrence MCV 85.5 fL Normal 80.0-94.0 [facility] Comment on above: Performed By: #### C [place] ####[facility] Wlwzyactwv0567 [place], [place] [address]Zq. Flaco Lawrence METAMYELOCYTE # Normal [facility] Comment on above: Performed By: #### C [place] ####[facility] Ohczitistt0713 [place], [place] [address]Cx. Flaco Lawrence METAMYELOCYTE % Normal [facility] Comment on above: Performed By: #### C [place] ####[facility] Bizttbkfxv7449 [place] [phone]. Flaco Lawrence MONOM# 1.42 103/ul Critically high 0.30-0.80 [facility] Comment on above: Performed By: #### C C[place] ####[facility] Pyltaruihe3239 [place] [phone]. Flaco Lawrence MONOM% 11.0 % Normal 1.7-12.0 [facility] Comment on above: Performed By: #### C [place] ####[facility] Mqzgvincuc4844 [place] [phone]. Flaco Lawrence MPV 9.5 fL Normal 9.5-13.5 [facility] Comment on above: Performed By: #### C [place] ####[facility] Ymyehdlrsw8896 [place] [address]Dr. Flaco Lawrence MYELOCYTE # Normal [facility] Comment on above: Performed By: #### C [place] ####[facility] Kmgwyvnitr3584 [place] [phone]. Flaco Lawrence MYELOCYTE % Normal [facility] Comment on above: Performed By: #### C C[place] ####[facility] Pspuutmdrs2754 [place] [address]Dr. Flaco Lawrence NRBC Normal [facility] Comment on above: Performed By: #### C C[place] ####[facility] Clbcelhgyz0056 [place] [phone]. Flaco Lawrence PLT 469 103/ul Critically high 150-450 [facility] Comment on above: Performed By: #### C C[place] ####[facility] Nkmtoyhvae6072 [place] [phone]. Flaco Lawrence RBC 4.20 106/ul Critically low 4.70-6.10 [facility] Comment on above: Performed By: #### C [place] ####[facility] Pkuhxmrdbn9390 [place] [phone]. Flaco Lawrence RDW 16.3 % Critically high 11.0-15.0 [facility] Comment on above: Performed By: #### C [place] ####[facility] Gijmkcmaky0803 [place] [phone]. Flaco Branden SEG # 10.06 103/ul Critically high 1.40-6.50 [facility] Comment on above: Performed By: #### C [place] ####[facility] Ftwcbbasdz7784 [place] [address]Dr. Flaco Branden SEG % 78.0 % Critically high 43.0-75.0 [facility] Comment on above: Performed By: #### C BCMAN ####[facility] Mcjovusclo4683 [place] [address]Dr. Flaco Lawrence WBC 12.9 103/ul Critically high 4.0-11.0 [facility] Comment on above: Performed By: #### C [place] ####[facility] Ifmlskvbpl8655 [place] [address]Dr. Flaco Lawrence PROF 14(COMP METB)on 023 Albumin [Mass/Vol] 2.5 g/dL Critically low 3.4-5.0 [facility] Comment on above: Performed By: #### C MP ####[facility] Oobxdcdmpx2912 [place] [address]Dr. Flaco Lawrence Albumin/Globulin [Mass ratio] 0.6 {ratio} Normal [facility] Comment on above: Performed By: #### C MP ####[facility] Bpfzmekumw2538 [place] [address]Dr. Flaco Lawrence ALP [Catalytic activity/Vol] 118 U/L Critically high 46-116 [facility] Comment on above: Performed By: #### C MP ####[facility] Vnjubplycv8422 [place] [address]Dr. Flaco Lawrence ALT [Catalytic activity/Vol] 12 U/L Critically low 16-63 [facility] Comment on above: Performed By: #### C MP ####[facility] Daagrbrvyr7009 [place] [address]Dr. Flaco Lawrence Anion gap [Moles/Vol] 15.8 mmol/L Normal [facility] Comment on above: Performed By: #### C MP ####[facility] Gutorwstck2504 [place] [phone]. Flaco Lawrence AST [Catalytic activity/Vol] 22 U/L Normal 15-37 [facility] Comment on above: Performed By: #### C MP ####[facility] Bmjvculixu1390 [place] [phone]. Flaco Lawrence Bilirubin [Mass/Vol] 0.8 mg/dL Normal 0.2-1.0 [facility] Comment on above: Performed By: #### C MP ####[facility] Ylddljetdx6553 [place] [phone]. Flaco Lawrence Calcium [Mass/Vol] 8.9 mg/dL Normal 8.5-10.1 [facility] Comment on above: Performed By: #### C MP ####[facility] Atcsxpcisb6946 [place] [phone]. Flaco Lawrence Chloride [Moles/Vol] 97 mmol/L Critically low 98-107 [facility] Comment on above: Performed By: #### C MP ####[facility] Pmnrghvcte8204 [place] [phone]. Flaco Lawrence CO2 [Moles/Vol] 22.8 mmol/L Normal 21.0-32.0 [facility] Comment on above: Performed By: #### C MP ####[facility] Prwmkyitba0040 [place] [phone]. Flaco Lawrence Creatinine [Mass/Vol] 1.64 mg/dL Critically high 0.70-1.30 [facility] Comment on above: Performed By: #### C MP ####[facility] Ciorwjhcjy0696 [place] [phone]. Flaco Lawrence EGFR-AF ANGOLAN 50 mL/min/1.73m2 Critically low >=60 [facility] Comment on above: Performed By: #### C MP ####[facility] Abugziktsb0610 [place] [phone]. Flaco Lawrence EGFR-NON AF ANGOLAN 42 mL/min/1.73m2 Critically low >=60 [facility] Comment on above: Performed By: #### C MP ####[facility] Lsqjzegjyu8166 [place] [phone]. Flaco Lawrence Globulin (S) [Mass/Vol] 4.2 g/dL Normal [facility] Comment on above: Performed By: #### C MP ####[facility] Krefjoefdp9803 [place] [address]Dr. Flaco Lawrence Glucose [Mass/Vol] 110 mg/dL Critically high 74-106 T [facility] Comment on above: Performed By: #### C MP ####[facility] Mtqgrrlzoi4453 [place] [address]Dr. Flaco Lawrence Potassium [Moles/Vol] 3.6 mmol/L Normal 3.5-5.1 [facility] Comment on above: Performed By: #### C MP ####[facility] Tgxplilyyd5348 [place] [address]Dr. Flaco Lawrence Protein [Mass/Vol] 6.7 g/dL Normal 6.4-8.2 [facility] Comment on above: Performed By: #### C MP ####[facility] Mjylhaiiaq3650 [place] [address]Dr. Flaco Lawrence Sodium [Moles/Vol] 132 mmol/L Critically low 136-145 Th [facility] Comment on above: Performed By: #### C MP ####[facility] Wzojwuivzc3519 [place] [address]Dr. Flaco Lawrence Urea nitrogen [Mass/Vol] 20.0 mg/dL Critically high 7.0-18.0 [facility] Comment on above: Performed By: #### C MP ####[facility] Whyfucjyzr7468 [place] [address]Dr. Flaco Lawrence Urea nitrogen/Creatinine [Mass ratio] 12.2 mg/mg Normal [facility] Comment on above: Performed By: #### C MP ####[facility] Padoppjpyz0425 [place] [address]Dr. Flaco Lawrence AMMONIAon 11-15-2022 Ammonia (P) [Moles/Vol] 22 umol/L Normal 11-32 [facility] Comment on above: Performed By: #### A MM ####[facility] Ymlgtzqnin8033 [place] [phone]. Flaco Branden CBC AUTO DIFFon 11-15-2022 BASO # 0.0 103/ul Normal 0.0-0.1 [facility] Comment on above: Performed By: #### C BC ####[facility] Efdozyvqph5830 [place] [address]Dr. Purviedith Lawrence Basophils/100 WBC (Bld) 0.3 % Normal 0.2-2.0 [facility] Comment on above: Performed By: #### C BC ####[facility] Pwjiypkfrc5898 [place] [address]Dr. Purviedith Lawrence EO # 0.0 103/ul Normal 0.0-0.7 [facility] Comment on above: Performed By: #### C BC ####[facility] Rmphkkouix[address] [place], [place] [address]Dr. Purviedith Lawrence Eosinophils/100 WBC (Bld) 0.3 % Critically low 0.9-7.0 [facility] Comment on above: Performed By: #### C BC ####[facility] Bffuefidlg13[address] [place], [place] [address]Dr. Flaco Branden Erythrocyte distribution width (RBC) [Ratio] 16.3 % Critically high 11.0-15.0 [facility] Comment on above: Performed By: #### C BC ####[facility] C[address]qgwjuo04[address] [place], [place] [address]Dr. Purviedith Lawrence Hematocrit (Bld) [Volume fraction] 39.2 % Critically low 42.0-54.0 [facility] Comment on above: Performed By: #### C BC ####[facility] Lcakrxysgl199[address] [place], [place] [address]Dr. Purviedith Lawrence Hemoglobin (Bld) [Mass/Vol] 12.9 g/dL Critically low 14.0-18.0 [facility] Comment on above: Performed By: #### C BC ####[facility] Stvqbayfva8[address] [place], [place] [address]Dr. Flaco Lawrence IG # 0.05 10e3/ul Critically high 0.00-0.03 [facility] Comment on above: Performed By: #### C BC ####[facility] Aqotgatrds8097 [place] [phone] Purviedith Lawrence IG % 0.4 % Normal 0.0-0.5 [facility] Comment on above: Performed By: #### C BC ####[facility] Mvrxrgclzk1571 [place] [id number] Purviedith Lawrence LYMPH # 1.6 103/ul Normal 1.2-3.8 [facility] Comment on above: Performed By: #### C BC ####[facility] Mowsmobeet0916 [place] [phone] Lawrence Lymphocytes/100 WBC (Bld) 12.5 % Critically low 20.5-60.0 [facility] Comment on above: Performed By: #### C BC ####[facility] Arydldlpyk1210 [place] [address]DrJeramie Lawrence MANUAL DIFF REQ NO Normal [facility] Comment on above: Performed By: #### C BC ####[facility] Xrhmceobyh1808 [place] [phone]. Flaco Branden MCH (RBC) [Entitic mass] 28.7 pg Normal 25.9-34.0 [facility] Comment on above: Performed By: #### C BC ####[facility] Xzsyxenbvq5825 [place] [phone] Flaco Branden MCHC (RBC) [Mass/Vol] 32.9 g/dL Normal 29.9-35.2 [facility] Comment on above: Performed By: #### C BC ####[facility] Mhvzlzupbc9861 [place] [phone] Purviedith Lawrence MCV (RBC) [Entitic vol] 87.1 fL Normal 80.0-94.0 [facility] Comment on above: Performed By: #### C BC ####[facility] Nxhgxygxzj5429 [place] [phone] Lawrence MONO # 1.4 103/ul Critically high 0.3-0.8 [facility] Comment on above: Performed By: #### C BC ####[facility] Jklszvtuhe0863 [place] [phone]. Flaco Lawrence Monocytes/100 WBC (Bld) 11.2 % Normal 1.7-12.0 [facility] Comment on above: Performed By: #### C BC ####[facility] Kcczjqgqfh2474 [place] [phone]. Flaco Lawrence NEUT # 9.4 103/ul Critically high 1.4-6.5 [facility] Comment on above: Performed By: #### C BC ####[facility] Qqqiktdkaw2700 [place] [address]Dr. Flaco Lawrence Neutrophils/100 WBC (Bld) 75.3 % Critically high 43.0-75.0 [facility] Comment on above: Performed By: #### C BC ####[facility] Zwyrlxvfhn2446 [place] [address]Dr. Flaco Lawrence Platelet mean volume (Bld) [Entitic vol] 9.3 fL Critically low 9.5-13.5 [facility] Comment on above: Performed By: #### C BC ####[facility] Akfcoonpvx7528 [place] [address]Dr. Flaco Lawrence PLT 532 103/ul Critically high 150-450 [facility] Comment on above: Performed By: #### C BC ####[facility] Maioyspqgk3967 [place] [address]Dr. Flaco Lawrence RBC 4.50 106/ul Critically low 4.70-6.10 [facility] Comment on above: Performed By: #### C BC ####[facility] Nkiepxnzbk5523 [place] [phone] Flaco Lawrence WBC 12.5 103/ul Critically high 4.0-11.0 [facility] Comment on above: Performed By: #### C BC ####[facility] Vhicbvhjjz4903 [place] [address]DrJeramie Lawrence PROF 14(COMP METB)on 023 Albumin [Mass/Vol] 3.0 g/dL Critically low 3.4-5.0 [facility] Comment on above: Performed By: #### C MP ####[facility] Woxqnrdotr6640 [place] [address]Dr. Flaco Branden Albumin/Globulin [Mass ratio] 0.5 {ratio} Normal [facility] Comment on above: Performed By: #### C MP ####[facility] Wnasdxyicy1432 [place] [address]Dr. Flaco Branden ALP [Catalytic activity/Vol] 103 U/L Normal 46-116 [facility] Comment on above: Performed By: #### C MP ####[facility] Gbyuettcxn4[address] [place], [place] [address]Dr. Flaco Lawrence ALT [Catalytic activity/Vol] 12 U/L Critically low 16-63 [facility] Comment on above: Performed By: #### C MP ####[facility] Zbhromebqg7831 [place] [address]Dr. Flaco Lawrence Anion gap [Moles/Vol] 16.8 mmol/L Normal [facility] Comment on above: Performed By: #### C MP ####[facility] Zcezigvqmy30[address] [place], [place] [address]Dr. Flaco Branden AST [Catalytic activity/Vol] 16 U/L Normal 15-37 [facility] Comment on above: Performed By: #### C MP ####[facility] Cayxqwsmlh7867[address] [place], [place] [address]Dr. Flaco Lawrence Bilirubin [Mass/Vol] 1.0 mg/dL Normal 0.2-1.0 [facility] Comment on above: Performed By: #### C MP ####[facility] Ihobwkrshp3288 [place] [address]Dr. Flaco Lawrence Calcium [Mass/Vol] 9.8 mg/dL Normal 8.5-10.1 [facility] Comment on above: Performed By: #### C MP ####[facility] Iijvgqryhu7471 [place] [address]Dr. Flaco Lawrence Chloride [Moles/Vol] 98 mmol/L Normal 98-107 [facility] Comment on above: Performed By: #### C MP ####[facility] Uwrixlsabj2163 [place] [phone]. Flaco Lawrence CO2 [Moles/Vol] 24.3 mmol/L Normal 21.0-32.0 [facility] Comment on above: Performed By: #### C MP ####[facility] Mafmuupnut0148 [place] [phone]. Flaco Branden Creatinine [Mass/Vol] 1.86 mg/dL Critically high 0.70-1.30 [facility] Comment on above: Performed By: #### C MP ####[facility] Yhmiekzcaq2019 [place] [address]Dr. Flaco Branden EGFR-AF ANGOLAN 44 mL/min/1.73m2 Critically low >=60 [facility] Comment on above: Performed By: #### C MP ####[facility] Xdgkjibnws3436 [place] [address]Dr. Flaco Branden EGFR-NON AF ANGOLAN 36 mL/min/1.73m2 Critically low >=60 [facility] Comment on above: Performed By: #### C MP ####[facility] Fcysaslizr9030 [place] [address]Dr. Flaco Branden Globulin (S) [Mass/Vol] 5.6 g/dL Normal [facility] Comment on above: Performed By: #### C MP ####[facility] Gnvvxyqrfh1456 [place] [address]Dr. Flaco Lawrence Glucose [Mass/Vol] 108 mg/dL Critically high 74-106 [facility] Comment on above: Performed By: #### C MP ####[facility] Mnsxfqrydk0319 [place] [phone]. Flaco Branden Potassium [Moles/Vol] 4.1 mmol/L Normal 3.5-5.1 [facility] Comment on above: Performed By: #### C MP ####[facility] Xrkxqxzxht0140 [place] [phone]. Purviedith Lawrence Protein [Mass/Vol] 8.6 g/dL Critically high 6.4-8.2 T [facility] Comment on above: Performed By: #### C MP ####[facility] Kowcvswzbc7120 [place] [address]Dr. Flaco Lawrence Sodium [Moles/Vol] 135 mmol/L Critically low 136-145 [facility] Comment on above: Performed By: #### C MP ####[facility] Qwgftezerm7320 [place] [address]Dr. Flaco Lawrence Urea nitrogen [Mass/Vol] 18.0 mg/dL Normal 7.0-18.0 [facility] Comment on above: Performed By: #### C MP ####[facility] Dspyrqxnev1900[address] [place], [place] [address]Dr. Flaco Lawrence Urea nitrogen/Creatinine [Mass ratio] 9.7 mg/mg Normal [facility] Comment on above: Performed By: #### C MP ####[facility] Nalqvqkclf7[address] [place], [place] [address]Dr. Flaco Lawrence CT HEAD WO CONon 11-14-2022 CT HEAD WO CON Normal [facility] MRI LSPINE WO CONon 11-14-19 MRI LSPINE WO CON Normal [facility] CBC AUTO DIFFon 11-13-2022 BASO # 0.0 103/ul Normal 0.0-0.1 [facility] Comment on above: Performed By: #### C BC ####[facility] Skuuidvatt5924[address] [place], [place] [address]Dr. Flaco Lawrence Basophils/100 WBC (Bld) 0.4 % Normal 0.2-2.0 [facility] Comment on above: Performed By: #### C BC ####[facility] Cfojrfxtoo3261 [place] [phone]. Flaco Lawrence EO # 0.1 103/ul Normal 0.0-0.7 [facility] Comment on above: Performed By: #### C BC ####[facility] Koufhnpnxa1075 [place] [phone]. Flaco Lawrence Eosinophils/100 WBC (Bld) 1.0 % Normal 0.9-7.0 [facility] Comment on above: Performed By: #### C BC ####[facility] Vmxtwplpjd8722 [place] [address]Dr. Flaco Lawrence Erythrocyte distribution width (RBC) [Ratio] 15.9 % Critically high 11.0-15.0 [facility] Comment on above: Performed By: #### C BC ####[facility] Dpolykgyls3293 [place] [address]Dr. Flaco Lawrence Hematocrit (Bld) [Volume fraction] 35.9 % Critically low 42.0-54.0 [facility] Comment on above: Performed By: #### C BC ####[facility] Bajmigycss3064[address] [place], [place] [address]Dr. Flaco Lawrence Hemoglobin (Bld) [Mass/Vol] 11.9 g/dL Critically low 14.0-18.0 [facility] Comment on above: Performed By: #### C BC ####[facility] Boxyxchnol708[address] [place], [place] [address]Dr. Flaco Lawrence IG # 0.03 10e3/ul Normal 0.00-0.03 [facility] Comment on above: Performed By: #### C BC ####[facility] Viasicnybv8025[address] [place], [place] [address]Dr. Flaco Lawrence IG % 0.4 % Normal 0.0-0.5 [facility] Comment on above: Performed By: #### C BC ####[facility] Ezkkmnqowe8913[address] [place], [place] [address]DrJeramie Flaco Lawrence LYMPH # 1.8 103/ul Normal 1.2-3.8 [facility] Comment on above: Performed By: #### C BC ####[facility] Duyztosxqg0001[address] [place], [place] [address]DrJeramie Flaco Lawrence Lymphocytes/100 WBC (Bld) 22.2 % Normal 20.5-60.0 [facility] Comment on above: Performed By: #### C BC ####[facility] Dkddnkgbzy6485[address] [place], [place] [address]DrJeramie Flaco Lawrence MANUAL DIFF REQ NO Normal [facility] Comment on above: Performed By: #### C BC ####[facility] Dcpgyfsyhi6907 [place] [phone]. Flaco Branden MCH (RBC) [Entitic mass] 28.8 pg Normal 25.9-34.0 [facility] Comment on above: Performed By: #### C BC ####[facility] Ckchgbqdjf9139 [place] [phone]. Flaco Branden MCHC (RBC) [Mass/Vol] 33.1 g/dL Normal 29.9-35.2 [facility] Comment on above: Performed By: #### C BC ####[facility] Rhfwzcdswu6355 [place] [address]Dr. Flaco Lawrence MCV (RBC) [Entitic vol] 86.9 fL Normal 80.0-94.0 [facility] Comment on above: Performed By: #### C BC ####[facility] Buyojeoloe535[address] [place], [place] [address]Dr. Flaco Lawrence MONO # 1.0 103/ul Critically high 0.3-0.8 [facility] Comment on above: Performed By: #### C BC ####[facility] Pbisdacmma6668[address] [place], [place] [address]Dr. Flaco Lawrence Monocytes/100 WBC (Bld) 13.0 % Critically high 1.7-12.0 [facility] Comment on above: Performed By: #### C BC ####[facility] Ycmrzkhqsl1824[address] [place], [place] [address]Dr. Flaco Lawrence NEUT # 5.0 103/ul Normal 1.4-6.5 [facility] Comment on above: Performed By: #### C BC ####[facility] Dhhedlkwdv[address] [place], [place] [id number] Lawrence Neutrophils/100 WBC (Bld) 63.0 % Normal 43.0-75.0 [facility] Comment on above: Performed By: #### C BC ####[facility] Hofuydqbxe74[address] [place], [place] [phone] Lawrence Platelet mean volume (Bld) [Entitic vol] 9.5 fL Normal 9.5-13.5 [facility] Comment on above: Performed By: #### C BC ####[facility] Afmoffbgdm1311 [place] [address]Dr. Flaco Lawrence PLT 335 103/ul Normal 150-450 [facility] Comment on above: Performed By: #### C BC ####[facility] Kokcvyvsvn6113 [place] [phone]. Flaco Lawrence RBC 4.13 106/ul Critically low 4.70-6.10 [facility] Comment on above: Performed By: #### C BC ####[facility] Cuqgzlhlwi5187 [place] [phone]. Flaco Lawrence WBC 7.9 103/ul Normal 4.0-11.0 [facility] Comment on above: Performed By: #### C BC ####[facility] Zcnxbtokti0965[address] [place], [place] [address]Dr. Flaco Lawrence ER URINE PROFILEon 3 Bilirubin Ql (U) Negative Normal NEGATIVE [facility] Comment on above: Performed By: #### E RUR ####[facility] Duypznrrly3975[address] [place], [place] [address]Dr. Flaco Lawrence Clarity (U) CLEAR Normal CLEAR [facility] Comment on above: Performed By: #### E RUR ####[facility] Prccmnqstw3576 [place] [address]Dr. Flaco Lwarence Color (U) LT. YELLOW Normal YELLOW [facility] Comment on above: Performed By: #### E RUR ####[facility] Hpgtcwqlah9[address] [place], [place] [address]Dr. Flaco Lawrence ERUAHD A micrscopic examination will be performed if indicated. Normal [facility] Comment on above: Performed By: #### E RUR ####[facility] Mifaumpwaa2364[address] [place], [place] [address]Dr. Flaco Lawrence Glucose Ql (U) Negative Normal NEGATIVE [facility] Comment on above: Performed By: #### E RUR ####[facility] Vvftbzpeii9875[address] [place], [place] [address]Dr. Flaco Lawrence Hemoglobin Ql (U) Negative Normal NEGATIVE [facility] Comment on above: Performed By: #### E RUR ####[facility] Iktxknvmpg1329[address] [place], [place] [address]Dr. Flaco Lawrence Ketones Ql (U) Negative Normal NEGATIVE [facility] Comment on above: Performed By: #### E RUR ####[facility] Gexjgxlsnx259[address] [place], [place] [address]Dr. Flaco Lawrence LEUKOCYTES Negative Normal NEGATIVE [facility] Comment on above: Performed By: #### E RUR ####[facility] Dtygeovhem040[address] [place], [place] [address]Dr. Flaco Lawrence Nitrite Ql (U) Negative Normal NEGATIVE [facility] Comment on above: Performed By: #### E RUR ####[facility] Uktahxwpjf1512[address] [place], [place] [address]Dr. Purviedith Branden pH (U) 5.5 [pH] Normal 5-9 [facility] Comment on above: Performed By: #### E RUR ####[facility] Dxunikkbvj9508[address] [place], [place] [address]Dr. Flaco Branden SPEC GRAVITY <=1.005 Abnormal 1.005-<=1.02 5 [facility] Comment on above: Performed By: #### E RUR ####[facility] Ngtpjozbws9[address] [place], [place] [address]Dr. Purviedith Branden UA PROTEIN Negative Normal NEGATIVE/ TRACE [facility] Comment on above: Performed By: #### E RUR ####[facility] Offvzfauiz0110[address] [place], [place] [address]Dr. Flaco Lawrence UR MICRO IND NOT INDICATED Normal [facility] Comment on above: Performed By: #### E RUR ####[facility] Sznbzyzwpo287[address] [place], [place] [address]Dr. Purviedith Branden Urobilinogen Qn (U) 0.2 {Tuan'U}/dL Normal 0.2 - 1. 0 [facility] Comment on above: Performed By: #### E RUR ####[facility] Dvnluedmvm3251 [place] [address]Dr. Purviedith Branden PROF CHEM 8 (BAS METB)on Anion gap [Moles/Vol] 13.6 mmol/L Normal [facility] Comment on above: Performed By: #### B MP ####[facility] Urhyyukvce5709 [place] [address]Dr. Flaco Lawrence Calcium [Mass/Vol] 9.2 mg/dL Normal 8.5-10.1 [facility] Comment on above: Performed By: #### B MP ####[facility] Byvyhqnmrq8251 [place] [address]Dr. Flaco Lawrence Chloride [Moles/Vol] 104 mmol/L Normal 98-107 [facility] Comment on above: Performed By: #### B MP ####[facility] Yitdmxnjdj212[address] [place], [place] [address]Dr. Flaco Lawrence CO2 [Moles/Vol] 24.9 mmol/L Normal 21.0-32.0 [facility] Comment on above: Performed By: #### B MP ####[facility] Vtjgnbcwtf7664[address] [place], [place] [address]Dr. Flaco Lawrence Creatinine [Mass/Vol] 1.59 mg/dL Critically high 0.70-1.30 [facility] Comment on above: Performed By: #### B MP ####[facility] Cwqnoeyuga8566[address] [place], [place] [address]Dr. Flaco Lawrence EGFR-AF ANGOLAN 52 mL/min/1.73m2 Critically low >=60 [facility] Comment on above: Performed By: #### B MP ####[facility] Mfcrcfurbu4938[address] [place], [place] [address]Dr. Flaco Lawrence EGFR-NON AF ANGOLAN 43 mL/min/1.73m2 Critically low >=60 [facility] Comment on above: Performed By: #### B MP ####[facility] Tohsfkizyu6550[address] [place], [place] [address]Dr. Flaco Lawrence Glucose [Mass/Vol] 119 mg/dL Critically high 74-106 [facility] Comment on above: Performed By: #### B MP ####[facility] Iefliifplb5784 [place] [address]Dr. Flaco Lawrence Potassium [Moles/Vol] 3.5 mmol/L Normal 3.5-5.1 [facility] Comment on above: Performed By: #### B MP ####[facility] Arhqkbosju080[address] [place], [place] [address]Dr. Flaco Branden Sodium [Moles/Vol] 139 mmol/L Normal 136-145 [facility] Comment on above: Performed By: #### B MP ####[facility] Gilbaxxdeq8454[address] [place], [place] [address]Dr. Flaco Lawrence Urea nitrogen [Mass/Vol] 12.0 mg/dL Normal 7.0-18.0 [facility] Comment on above: Performed By: #### B MP ####[facility] Dqsexkmcuz799[address] [place], [place] [address]Dr. Flaco Branden Urea nitrogen/Creatinine [Mass ratio] 7.5 mg/mg Normal [facility] Comment on above: Performed By: #### B MP ####[facility] Iwleyzkzna9539[address] [place], [place] [address]Dr. Flaco Branden CBC AUTO DIFFon 11-12-2022 BASO # 0.0 103/ul Normal 0.0-0.1 [facility] Comment on above: Performed By: #### C BC ####[facility] Zirkqgfgtg7285[address] [place], [place] [address]Dr. Purviedith Branden Basophils/100 WBC (Bld) 0.4 % Normal 0.2-2.0 [facility] Comment on above: Performed By: #### C BC ####[facility] Djgaqqsjye1767[address] [place], [place] [address]Dr. Flaco Branden EO # 0.1 103/ul Normal 0.0-0.7 [facility] Comment on above: Performed By: #### C BC ####[facility] Btmdbdjzth318[address] [place], [place] [address]Dr. Flaco Lawrence Eosinophils/100 WBC (Bld) 0.6 % Critically low 0.9-7.0 [facility] Comment on above: Performed By: #### C BC ####[facility] Ykgiidrgrf7294 [place] [address]Dr. Flaco Lawrence Erythrocyte distribution width (RBC) [Ratio] 15.9 % Critically high 11.0-15.0 [facility] Comment on above: Performed By: #### C BC ####[facility] Uqnecupyra7943 [place] [address]Dr. Flaco Lawrence Hematocrit (Bld) [Volume fraction] 36.0 % Critically low 42.0-54.0 [facility] Comment on above: Performed By: #### C BC ####[facility] Htmdzuxegb419[address] [place], [place] [address]Dr. Flaco Lawrence Hemoglobin (Bld) [Mass/Vol] 11.9 g/dL Critically low 14.0-18.0 [facility] Comment on above: Performed By: #### C BC ####[facility] Ftbarydeua3768[address] [place], [place] [address]Dr. Flaco Lawrence IG # 0.03 10e3/ul Normal 0.00-0.03 [facility] Comment on above: Performed By: #### C BC ####[facility] Oscjydzdkw7976[address] [place], [place] [address]Dr. Flaco Lawrence IG % 0.3 % Normal 0.0-0.5 [facility] Comment on above: Performed By: #### C BC ####[facility] Vfmimevezc16[address] [place], [place] [address]DrJeramie Flaco Lawrence LYMPH # 1.9 103/ul Normal 1.2-3.8 [facility] Comment on above: Performed By: #### C BC ####[facility] Ozflgtuisi7015[address] [place], [place] [address]DrJeramie Flaco Lawrence Lymphocytes/100 WBC (Bld) 19.3 % Critically low 20.5-60.0 [facility] Comment on above: Performed By: #### C BC ####[facility] Pnopxdvqrp17[address] [place], [place] [address]Dr. Flaco Branden MANUAL DIFF REQ NO Normal [facility] Comment on above: Performed By: #### C BC ####[facility] Fqcniatdwp1462 [place] [address]Dr. Flaco Branden MCH (RBC) [Entitic mass] 28.6 pg Normal 25.9-34.0 [facility] Comment on above: Performed By: #### C BC ####[facility] Xqlawbnmlo3654 [place] [address]Dr. Purviedith Branden MCHC (RBC) [Mass/Vol] 33.1 g/dL Normal 29.9-35.2 [facility] Comment on above: Performed By: #### C BC ####[facility] Aaiphyxmew6060 [place] [address]Dr. Flaco Lawrence MCV (RBC) [Entitic vol] 86.5 fL Normal 80.0-94.0 [facility] Comment on above: Performed By: #### C BC ####[facility] Taqoohfura7[address] [place], [place] [address]Dr. Flaco Lawrence MONO # 1.2 103/ul Critically high 0.3-0.8 [facility] Comment on above: Performed By: #### C BC ####[facility] Qvfmaccwur8[address] [place], [place] [address]Dr. Flaco Lawrence Monocytes/100 WBC (Bld) 12.5 % Critically high 1.7-12.0 [facility] Comment on above: Performed By: #### C BC ####[facility] Fywnzsleiu9[address] [place], [place] [address]Dr. Flaco Lawrence NEUT # 6.5 103/ul Normal 1.4-6.5 [facility] Comment on above: Performed By: #### C BC ####[facility] Nkubeafkzk0640[address] [place], [place] [address]DrJeramie Lawrence Neutrophils/100 WBC (Bld) 66.9 % Normal 43.0-75.0 [facility] Comment on above: Performed By: #### C BC ####[facility] Ugarodkjjo385[address] [place], [place] [address]DrJeramie Lawrence Platelet mean volume (Bld) [Entitic vol] 9.6 fL Normal 9.5-13.5 [facility] Comment on above: Performed By: #### C BC ####[facility] Xqpqvbbqtq1720 [place] [id number]. Flaco Lawrence PLT 345 103/ul Normal 150-450 [facility] Comment on above: Performed By: #### C BC ####[facility] Qglkbgfedv5277 [place] [phone]. Flaco Lawrence RBC 4.16 106/ul Critically low 4.70-6.10 [facility] Comment on above: Performed By: #### C BC ####[facility] Pqhqiajsvk9219 [place] [phone]. Flaco Lawrence WBC 9.7 103/ul Normal 4.0-11.0 [facility] Comment on above: Performed By: #### C BC ####[facility] Mzkoeaykbn8217 [place] [address]Dr. Flaco Lawrence ECHOCARDIO M/2D COMPLETEon 0 11-12-2022 ECHOCARDIO M/2D COMPLETE Normal [facility] MRA NECK WO CONon 11-12-2022 MRA NECK WO CON Normal [facility] MRI BRAIN WO CONon MRI BRAIN WO CON Normal [facility] PROF CHEM 8 (BAS METB)on Anion gap [Moles/Vol] 12.7 mmol/L Normal [facility] Comment on above: Performed By: #### B MP ####[facility] Bapbcpmnzz9138 [place] [id number] Lawrence Calcium [Mass/Vol] 8.8 mg/dL Normal 8.5-10.1 [facility] Comment on above: Performed By: #### B MP ####[facility] Gtnomrxcmr2037 [place] [address]DrJeramie Lawrence Chloride [Moles/Vol] 102 mmol/L Normal 98-107 [facility] Comment on above: Performed By: #### B MP ####[facility] Jyvlhvqzeo8137 [place] [address]DrJeramie Lawrence CO2 [Moles/Vol] 24.9 mmol/L Normal 21.0-32.0 [facility] Comment on above: Performed By: #### B MP ####[facility] Ujtlpqorgk8[address] [place], [place] [address]Dr. Flaco Lawrence Creatinine [Mass/Vol] 1.58 mg/dL Critically high 0.70-1.30 [facility] Comment on above: Performed By: #### B MP ####[facility] Muhgrepwbu186[address] [place], [place] [address]Dr. Purviedith Branden EGFR-AF ANGOLAN 53 mL/min/1.73m2 Critically low >=60 [facility] Comment on above: Performed By: #### B MP ####[facility] [address]rmxadqnl[address] [place], [place] [address]Dr. Purviedith Branden EGFR-NON AF ANGOLAN 43 mL/min/1.73m2 Critically low >=60 [facility] Comment on above: Performed By: #### B MP ####[facility] Deajnqieao[address] [place], [place] [address]Dr. Flaco Lawrence Glucose [Mass/Vol] 107 mg/dL Critically high 74-106 [facility] Comment on above: Performed By: #### B MP ####[facility] Qxxxyiqjur68[address] [place], [place] [address]Dr. Flaco Lawrence Potassium [Moles/Vol] 3.6 mmol/L Normal 3.5-5.1 [facility] Comment on above: Performed By: #### B MP ####[facility] Hrkmpswndu78[address] [place], [place] [address]Dr. Flaco Lawrence Sodium [Moles/Vol] 136 mmol/L Normal 136-145 [facility] Comment on above: Performed By: #### B MP ####[facility] [address]jywgcjrul[address] [place], [place] [address]Dr. Flaco Lawrence Urea nitrogen [Mass/Vol] 10.0 mg/dL Normal 7.0-18.0 [facility] Comment on above: Performed By: #### B MP ####[facility] Hwfziybruj65[address] [place], [place] [address]Dr. Flaco Lawrence Urea nitrogen/Creatinine [Mass ratio] 6.3 mg/mg Normal [facility] Comment on above: Performed By: #### B MP ####[facility] [address]smdbpkhu[address] [place] [address]Dr. Flaco Lawrence CBC AUTO DIFFon 11-11-2022 BASO # 0.0 103/ul Normal 0.0-0.1 [facility] Comment on above: Performed By: #### C BC ####[facility] Qwyucycp[address] [place], [place] [address]Dr. Flaco Lawrence Basophils/100 WBC (Bld) 0.4 % Normal 0.2-2.0 [facility] Comment on above: Performed By: #### C BC ####[facility] Ldjdvnnvnj[address] [place], [place] [address]Dr. Flaco Lawrence EO # 0.1 103/ul Normal 0.0-0.7 [facility] Comment on above: Performed By: #### C BC ####[facility] Shgzlsfogu25[address] [place], [place] [address]Dr. Flaco Lawrence Eosinophils/100 WBC (Bld) 0.7 % Critically low 0.9-7.0 [facility] Comment on above: Performed By: #### C BC ####[facility] Gzejxdovgt[address] [place], [place] [address]Dr. Flaco Lawrence Erythrocyte distribution width (RBC) [Ratio] 16.3 % Critically high 11.0-15.0 [facility] Comment on above: Performed By: #### C BC ####[facility] Azflhyqflt[address] [place], [place] [address]Dr. Flaco Lawrence Hematocrit (Bld) [Volume fraction] 37.4 % Critically low 42.0-54.0 [facility] Comment on above: Performed By: #### C BC ####[facility] Mvdrqvzmum[address] [place], [place] [address]Dr. Flaco Lawrence Hemoglobin (Bld) [Mass/Vol] 12.5 g/dL Critically low 14.0-18.0 [facility] Comment on above: Performed By: #### C BC ####[facility] [address] [place] [phone]. Flaco Lawrence IG # 0.03 10e3/ul Normal 0.00-0.03 [facility] Comment on above: Performed By: #### C BC ####[facility] T[address]hlmvjdf39[address] [place] [address]Dr. Flaco Lawrence IG % 0.3 % Normal 0.0-0.5 [facility] Comment on above: Performed By: #### C BC ####[facility] Tdoiqngvey[address] [place] [address]Dr. Flaco Branden LYMPH # 2.0 103/ul Normal 1.2-3.8 [facility] Comment on above: Performed By: #### C BC ####[facility] Bbazhzhkrg7485 [place] [address]Dr. Flaco Lawrence Lymphocytes/100 WBC (Bld) 18.8 % Critically low 20.5-60.0 [facility] Comment on above: Performed By: #### C BC ####[facility] Dgdaxmakul1294 [place] [address]Dr. Purviedith Lawrence MANUAL DIFF REQ NO Normal [facility] Comment on above: Performed By: #### C BC ####[facility] Fruwvufgxp77[address] [place] [address]Dr. Flaco Lawrence MCH (RBC) [Entitic mass] 29.1 pg Normal 25.9-34.0 [facility] Comment on above: Performed By: #### C BC ####[facility] Fondlhztmq5[address] [place] [address]Dr. Flaco Lawrence MCHC (RBC) [Mass/Vol] 33.4 g/dL Normal 29.9-35.2 [facility] Comment on above: Performed By: #### C BC ####[facility] Uuivyvkhdm0[address] [place], [place] [address]Dr. Flaco Lawrence MCV (RBC) [Entitic vol] 87.2 fL Normal 80.0-94.0 [facility] Comment on above: Performed By: #### C BC ####[facility] P[address]bolivdp76[address] [place] [phone]. Flaco Lawrence MONO # 1.2 103/ul Critically high 0.3-0.8 [facility] Comment on above: Performed By: #### C BC ####[facility] Fsdonwhyrx9566 [place] [phone]. Flaco Lawrence Monocytes/100 WBC (Bld) 11.2 % Normal 1.7-12.0 [facility] Comment on above: Performed By: #### C BC ####[facility] Ceqxsbpcgs3498 [place] [phone]. Flaco Lawrence NEUT # 7.1 103/ul Critically high 1.4-6.5 [facility] Comment on above: Performed By: #### C BC ####[facility] Bwlelcoakr3088 [place] [address]Dr. Flaco Lawrence Neutrophils/100 WBC (Bld) 68.6 % Normal 43.0-75.0 [facility] Comment on above: Performed By: #### C BC ####[facility] Nwaswdzioy8067 [place] [address]Dr. Flaco Lawrence Platelet mean volume (Bld) [Entitic vol] 9.5 fL Normal 9.5-13.5 [facility] Comment on above: Performed By: #### C BC ####[facility] Ktjhmkmirv8[address] [place] [phone]. Flaco Lawrence PLT 351 103/ul Normal 150-450 [facility] Comment on above: Performed By: #### C BC ####[facility] Evqgslfxvz1873 [place] [phone]. Flaco Lawrence RBC 4.29 106/ul Critically low 4.70-6.10 [facility] Comment on above: Performed By: #### C BC ####[facility] [address]fpic[address] [place], [place] [id number]. Flaco Lawrence WBC 10.4 103/ul Normal 4.0-11.0 [facility] Comment on above: Performed By: #### C BC ####[facility] Ogdwnsvkde[address] [place], [place] [id number]. Flaco Lawrence CT HEAD WO CONon 11-11-2022 CT HEAD WO CON Normal [facility] Covid-19 PCR (CVDTB)on 10-29 SARS-CoV-2 (COVID-19) RNA MARCO ANTONIO+probe Ql (Unsp spec) Not detected Normal NOT DETECTED [facility] Comment on above: Result Comment: When [...] for this test is supported by the [place] of Health and Human Service's declaration that [...] be used). Performed By: #### C VDTBH ####[facility] Ivzkjvikwf5583 [place] [phone]. Flaco Branden LIPID PROFILEon 11-11-2022 CHOL-HDL RATIO NORM SEE BELOW Normal [facility] Comment on above: Result Comment: 3.3 - 4.4 LOW RISK 4.4 - 7.1 AVERAGE RISK 7.1 - 11.0 MODERATE RISK >11.0 HIGH RISK Performed By: #### L IPID, TSH ####[facility] Svijzbhosc5034 [place] [phone]. Flaco Lawrence Cholesterol [Mass/Vol] 176 mg/dL Normal <=200 [facility] Comment on above: Performed By: #### L IPID, TSH ####[facility] Hbgwzrvnue8633 [place] [phone]. Flaco Lawrence Cholesterol in HDL [Mass/Vol] 40 mg/dL Normal 40-60 [facility] Comment on above: Performed By: #### L IPID, TSH ####[facility] Vhwksfndzk8984 [place] [address]Dr. Flaco Lawrence Cholesterol in LDL [Mass/Vol] 117.6 mg/dL Normal [facility] Comment on above: Performed By: #### L IPID, TSH ####[facility] Cbggjdvtcs1707 [place] [address]Dr. Flaco Lawrence Cholesterol.total/Chol esterol in HDL [Mass ratio] 4.4 {ratio} Normal [facility] Comment on above: Performed By: #### L IPID, TSH ####[facility] Qnjcvmykfq7426 [place] [address]Dr. Flaco Lawrence HDL NORMAL > or = 60 mg/dl - LO W CARDIOVASCULAR RISK <40 mg/dl - HIGH CARDIOVASCULAR RISK Normal [facility] Comment on above: Performed By: #### L IPID, TSH ####[facility] Pkrqyjgzae2445 [place] [address]Dr. Flaco Lawrence LDL CALC NORMAL SEE BELOW Normal [facility] Comment on above: Result Comment: <100 mg/dl OPTIMAL 100 - 129 mg/dl NEAR OR ABOVE OPTIMAL 130 - 159 mg/dl BORDERLINE HIGH 160 - 189 mg/dl HIGH >190 mg/dl VERY HIGH Performed By: #### L IPID, TSH ####[facility] Lfclstwqkc9684 [place] [address]Dr. Flaco Lawrence Triglyceride [Mass/Vol] 92 mg/dL Normal <=150 [facility] Comment on above: Performed By: #### L IPID, TSH ####[facility] Jzugogjycb3396 [place] [address]Dr. Flaco Lawrence VLDL CALC 18.4 mg/dL Normal [facility] Comment on above: Performed By: #### L IPID, TSH ####[facility] Cremorbtfh5331 [place] [address]Dr. Flaco Lawrence PROF CHEM 8 (BAS METB)on Anion gap [Moles/Vol] 13.0 mmol/L Normal [facility] Comment on above: Performed By: #### B MP, HSTROPN ####[facility] Iiudjnyprd8161 [place] [address]Dr. Flaco Lawrence Calcium [Mass/Vol] 9.3 mg/dL Normal 8.5-10.1 [facility] Comment on above: Performed By: #### B YEHUDA, HSTROPN ####[facility] Jkamtnqwkr7555 [place] [address]Dr. lFaco Lawrence Chloride [Moles/Vol] 101 mmol/L Normal 98-107 [facility] Comment on above: Performed By: #### B YEHUDA, HSTROPN ####[facility] Jasfecfvvv7711 [place] [address]Dr. Flaco Lawrence CO2 [Moles/Vol] 27.7 mmol/L Normal 21.0-32.0 [facility] Comment on above: Performed By: #### B YEHUDA, HSTROPN ####[facility] Ojvacpmsax9217 [place] [address]Dr. Flaco Lawrence Creatinine [Mass/Vol] 1.75 mg/dL Critically high 0.70-1.30 [facility] Comment on above: Performed By: #### B YEHUDA, HSTROPN ####[facility] G[address]kvjjilg[address] [place], [place] [address]Dr. Flaco Lawrence EGFR-AF ANGOLAN 47 mL/min/1.73m2 Critically low >=60 [facility] Comment on above: Performed By: #### B YEHUDA, HSTROPN ####[facility] Belbzafkny[address] [place], [place] [address]Dr. Flaco Lawrence EGFR-NON AF ANGOLAN 39 mL/min/1.73m2 Critically low >=60 [facility] Comment on above: Performed By: #### B YEHUDA, HSTROPN ####[facility] Sawairybvs8[address] [place], [place] [address]Dr. Flaco Lawrence Glucose [Mass/Vol] 97 mg/dL Normal 74-106 [facility] Comment on above: Performed By: #### B YEHUDA, HSTROPN ####[facility] Fcmprulfvz[address] [place], [place] [address]Dr. Flaco Lawrence Potassium [Moles/Vol] 3.7 mmol/L Normal 3.5-5.1 [facility] Comment on above: Performed By: #### B YEHUDA, HSTROPN ####[facility] Bkyrirbhoi5788 [place] [address]Dr. Flaco Lawrence Sodium [Moles/Vol] 138 mmol/L Normal 136-145 [facility] Comment on above: Performed By: #### B YEHUDA, HSTROPN ####[facility] Prnxwcfqjr45[address] [place], [place] [address]Dr. Flaco Lawrence Urea nitrogen [Mass/Vol] 13.0 mg/dL Normal 7.0-18.0 [facility] Comment on above: Performed By: #### B YEHUDA, HSTROPN ####[facility] Tmvsqvmoqh[address] [place], [place] [address]Dr. Flaco Lawrence Urea nitrogen/Creatinine [Mass ratio] 7.4 mg/mg Normal [facility] Comment on above: Performed By: #### B YEHUDA, HSTROPN ####[facility] Lfqaectcrv97[address] [place], [place] [address]Dr. Flaco Lawrence PROTIMEon 11-11-2022 INR Coag (PPP) [Relative time] 1.05 {INR} Normal [facility] Comment on above: Performed By: #### P T, PTT ####[facility] Rafxwsqsbf4[address] [place], [place] [address]Dr. Flaco Lawrence INR GUIDELINES SEE BELOW Normal [facility] Comment on above: Result Comment: RON RED INR: 2.0 - 3.0 CONDITIONS NOT LISTED BELOW 2.5 - 3.5 FOR PROSTHETIC HEART VALVE REPLACEMENT 2.5 - 3.5 RECURRENT THROMBOSIS Performed By: #### P T, PTT ####[facility] Xgzaukaedy[address] [place], [place] [address]Dr. Flaco Lawrence PT Coag (PPP) [Time] 11.1 s Normal 9.0-11.6 [facility] Comment on above: Performed By: #### P T, PTT ####[facility] Cdsqojjlkh6[address] [place], [place] [address]Dr. Flaco Lawrence PTTon 11-11-2022 aPTT Coag (Bld) [Time] 34.3 s Normal 22.3-36.2 [facility] Comment on above: Performed By: #### P T, PTT ####[facility] Rgmcxqdqyl8657 [place] [address]Dr. Flaco Lawrence TROPONIN, HIGH SENSITIVITYon 11-11-2022 HSTROP 4.7 pg/mL Normal 4.0-76.1 [facility] Comment on above: Result Comment: CUT- OFF POINTS HAVE BEEN ESTABLISHED BASED ON THE FOURTH UNIVERSAL DEFINITIONS OF MYOCARDIALINFARCTION. THE UPPER REFERENCE LIMIT (URL) OF TROPONIN, DEFINED THE 99TH PERCENTILE OFcTnI DISTRIBUTION IN A REFERENCE POPULATION, HAS BEEN CONFIRMED THE DECISION THRESHOLDFOR [place] DIAGNOSIS. Performed By: #### B MP, HSTROPN ####[facility] Wimqontytt[address] [place], [place] [address]Dr. Flaco Lawrence TSHon 11-11-2022 TSH 0.829 uIU/mL Normal 0.358-3.740 [facility] Comment on above: Performed By: #### L IPID, TSH ####[facility] Kveowltolv[address] [place], [place] [address]Dr. Flaco Lawrence XR CHEST 1 Von 11-11-2022 XR CHEST 1 V Normal [facility] XR FOOT RT MIN 3 VIEWSon XR FOOT RT MIN 3 VIEWS Normal [facility] XR FOOT RT MIN 3 VIEWSon XR FOOT RT MIN 3 VIEWS Normal [facility] POINT OF CARE GLUCOSEon 12-2 Glucose [Mass/Vol] 87 mg/dL Normal 74-106 [facility] Comment on above: Performed By: #### P OCGLUC ####[facility] Zhzzekootm[address] [place], [place] [address]Dr. Flaco Lawrence Glucose [Mass/Vol] 94 mg/dL Normal 74-106 [facility] Comment on above: Performed By: #### P OCGLUC ####[facility] Afmstyxdow84[address] [place], [place] [address]Dr. Flaco Lawrence XR FOOT RT 2Von 09-25-2022 XR FOOT RT 2V Normal [facility] XR FOOT RT MIN 3 VIEWSon XR FOOT RT MIN 3 VIEWS Normal e [facility] XR WRIST RT MIN 3 Von 2021 XR WRIST RT MIN 3 V Normal [facility]on [facility]-29 SARS-CoV-2 (COVID-19) RNA MARCO ANTONIO+probe Ql (Unsp spec) Not detected Normal NOT DETECTED [facility] Comment on above: Result Comment: This test is not yet approved or cleared by the [place] FDA. When there are no FDA-approved or cleared tests available, and other criteria are met, FDA can make tests available under an emergency access mechanism called an Emergency Use Authorization (EUA). The EUA for this test is supported by the [place] of Health and Human Service's (HHS's) declaration [...] with SARS-CoV-2. Performed By: #### C VDTBH ####[facility] [address]ts[address]ajqj9097 [place] [address]Dr. Flaco Lawrence PROF CHEM 8 (BAS METB)on Anion gap [Moles/Vol] 10.4 mmol/L Normal [facility] Comment on above: Performed By: #### B MP ####[facility] Lydkclgzzi4618 [place] [phone]. Flaco Lawrence Calcium [Mass/Vol] 8.7 mg/dL Normal 8.5-10.1 [facility] Comment on above: Performed By: #### B MP ####[facility] Sflcfqkxqf9690 [place] [phone]. Flaco Lawrence Chloride [Moles/Vol] 104 mmol/L Normal 98-107 [facility] Comment on above: Performed By: #### B MP ####[facility] Azkfirnocr4187 [place] [address]Dr. Flaco Lawrence CO2 [Moles/Vol] 27.2 mmol/L Normal 21.0-32.0 [facility] Comment on above: Performed By: #### B MP ####[facility] Ftaytutlhr4[address] [place], [place] [address]Dr. Flaco Lawrence Creatinine [Mass/Vol] 2.02 mg/dL Critically high 0.70-1.30 [facility] Comment on above: Performed By: #### B MP ####[facility] Bgegkrexfd153[address] [place], [place] [address]Dr. Flaco Lawrence EGFR-AF ANGOLAN 40 mL/min/1.73m2 Critically low >=60 [facility] Comment on above: Performed By: #### B MP ####[facility] Gdmbebqmte6[address] [place], [place] [address]Dr. Flaco Lawrence EGFR-NON AF ANGOLAN 33 mL/min/1.73m2 Critically low >=60 [facility] Comment on above: Performed By: #### B MP ####[facility] Kvcziwiqyp[address] [place], [place] [address]Dr. Flaco Lawrence Glucose [Mass/Vol] 91 mg/dL Normal 74-106 [facility] Comment on above: Performed By: #### B MP ####[facility] Wtapjlprze27[address] [place], [place] [address]Dr. Flaco Lawrence Potassium [Moles/Vol] 3.6 mmol/L Normal 3.5-5.1 [facility] Comment on above: Performed By: #### B MP ####[facility] Mtvcgprtux17[address] [place], [place] [address]Dr. Flaco Lawrence Sodium [Moles/Vol] 138 mmol/L Normal 136-145 [facility] Comment on above: Performed By: #### B MP ####[facility] G[address]vcqvhnpv1117[address] [place], [place] [address]Dr. Flaco Lawrence Urea nitrogen [Mass/Vol] 14.0 mg/dL Normal 7.0-18.0 [facility] Comment on above: Performed By: #### B MP ####[facility] Cztjzzxmye6927 [place] [address]Dr. Flaco Branden Urea nitrogen/Creatinine [Mass ratio] 6.9 mg/mg Normal [facility] Comment on above: Performed By: #### B MP ####[facility] Whnxzmmbpn5294 [place] [address]Dr. Flaco Branden CBC AUTO DIFFon 08-15-2022 BASO # 0.1 103/ul Normal 0.0-0.1 [facility] Comment on above: Performed By: #### C BC ####[facility] Wewravvjrc6462 [place] [address]Dr. Purviedith Lawrence Basophils/100 WBC (Bld) 0.8 % Normal 0.2-2.0 [facility] Comment on above: Performed By: #### C BC ####[facility] Gvymtvntej[address] [place], [place] [address]Dr. Flaco Branden EO # 0.1 103/ul Normal 0.0-0.7 [facility] Comment on above: Performed By: #### C BC ####[facility] Kzukeawpvy[address] [place], [place] [address]Dr. Flaco Branden Eosinophils/100 WBC (Bld) 1.4 % Normal 0.9-7.0 [facility] Comment on above: Performed By: #### C BC ####[facility] Qdhitzgbgu2360[address] [place], [place] [address]Dr. Flaco Lawrence Erythrocyte distribution width (RBC) [Ratio] 13.6 % Normal 11.0-15.0 [facility] Comment on above: Performed By: #### C BC ####[facility] Wsgooaknvk9[address] [place], [place] [address]Dr. Flaco Branden Hematocrit (Bld) [Volume fraction] 46.2 % Normal 42.0-54.0 [facility] Comment on above: Performed By: #### C BC ####[facility] Bfydmgzfsw6975 [place] [phone]. Flaco Lawrence Hemoglobin (Bld) [Mass/Vol] 15.2 g/dL Normal 14.0-18.0 [facility] Comment on above: Performed By: #### C BC ####[facility] Ophljlfbus1865 [place] [phone]. Flaco Lawrence IG # 0.02 10e3/ul Normal 0.00-0.03 [facility] Comment on above: Performed By: #### C BC ####[facility] Wsuvyxewsw8496 [place] [address]Dr. Flaco Lawrence IG % 0.2 % Normal 0.0-0.5 [facility] Comment on above: Performed By: #### C BC ####[facility] [address]qdafjuuig[address] [place], [place] [address]Dr. Flaco Lawrence LYMPH # 1.8 103/ul Normal 1.2-3.8 [facility] Comment on above: Performed By: #### C BC ####[facility] Bunauafeob5[address] [place], [place] [address]Dr. Flaco Lawrence Lymphocytes/100 WBC (Bld) 19.2 % Critically low 20.5-60.0 [facility] Comment on above: Performed By: #### C BC ####[facility] Vgmymvmzmd1020 [place] [address]Dr. Flaco Lawrence MANUAL DIFF REQ NO Normal [facility] Comment on above: Performed By: #### C BC ####[facility] Nczpxrldrj4995 [place] [address]Dr. Flaco Lawrence MCH (RBC) [Entitic mass] 28.6 pg Normal 25.9-34.0 [facility] Comment on above: Performed By: #### C BC ####[facility] Nqpjcrsjnq9[address] [place], [place] [address]Dr. Flaco Lawrence MCHC (RBC) [Mass/Vol] 32.9 g/dL Normal 29.9-35.2 [facility] Comment on above: Performed By: #### C BC ####[facility] Rjhbiemyva4579 [place] [phone]. Flaco Lawrence MCV (RBC) [Entitic vol] 86.8 fL Normal 80.0-94.0 [facility] Comment on above: Performed By: #### C BC ####[facility] Mbjsaavftg4091 [place] [phone]. Flaco Lawrence MONO # 0.8 103/ul Normal 0.3-0.8 [facility] Comment on above: Performed By: #### C BC ####[facility] Eqfparlvjs5433 [place] [phone]. Flaco Lawrence Monocytes/100 WBC (Bld) 8.7 % Normal 1.7-12.0 [facility] Comment on above: Performed By: #### C BC ####[facility] Lyqjmydjqd9267 [place] [phone]. Flaco Lawrence NEUT # 6.5 103/ul Normal 1.4-6.5 [facility] Comment on above: Performed By: #### C BC ####[facility] Bkivpmrvbw7433 [place] [phone]. Flaco Lawrence Neutrophils/100 WBC (Bld) 69.7 % Normal 43.0-75.0 [facility] Comment on above: Performed By: #### C BC ####[facility] Nbcahxnkdu8718 [place] [phone]. Flaco Lawrence Platelet mean volume (Bld) [Entitic vol] 9.8 fL Normal 9.5-13.5 [facility] Comment on above: Performed By: #### C BC ####[facility] Wpwianetls6993 [place] [phone]. Flaco Branden PLT 503 103/ul Critically high 150-450 [facility] Comment on above: Performed By: #### C BC ####[facility] Tvpfbpcgbv7477 [place] [phone]. Flaco Branden RBC 5.32 106/ul Normal 4.70-6.10 [facility] Comment on above: Performed By: #### C BC ####[facility] Vofmucizyw[address] [place], [place] [address]Dr. Flaco Lawrence WBC 9.3 103/ul Normal 4.0-11.0 [facility] Comment on above: Performed By: #### C BC ####[facility] Kujzjcbemo8137 [place] [address]Dr. Flaco Lawrence PROTIMEon 08-15-2022 INR Coag (PPP) [Relative time] 1.73 {INR} Normal [facility] Comment on above: Performed By: #### P TT, PT ####[facility] Zadrjjfzft5[address] [place], [place] [address]Dr. Flaco Lawrence INR GUIDELINES SEE BELOW Normal [facility] Comment on above: Result Comment: RON RED INR: 2.0 - 3.0 CONDITIONS NOT LISTED BELOW 2.5 - 3.5 FOR PROSTHETIC HEART VALVE REPLACEMENT 2.5 - 3.5 RECURRENT THROMBOSIS Performed By: #### P TT, PT ####[facility] Qbhyoataeu5[address] [place], [place] [address]Dr. Flaco Branden PT Coag (PPP) [Time] 18.0 s Critically high 9.0-11.6 [facility] Comment on above: Performed By: #### P TT, PT ####[facility] Vgznnnmnhd3[address] [place], [place] [address]Dr. Flaco Lawrence PTTon 08-15-2022 aPTT Coag (Bld) [Time] 34.8 s Normal 22.3-36.2 [facility] Comment on above: Performed By: #### P TT, PT ####[facility] Iywutchyus42[address] [place], [place] [address]Dr. Flaco Lawrence CBC AUTO DIFFon 08-02-2022 BASO # 0.0 103/ul Normal 0.0-0.1 [facility] Comment on above: Performed By: #### C BC ####[facility] Rafshhiclw[address] [place], [place] [address]Dr. Flaco Branden Basophils/100 WBC (Bld) 0.2 % Normal 0.2-2.0 [facility] Comment on above: Performed By: #### C BC ####[facility] Ikanzwuafk6617 [place] [address]Dr. Flaco Lawrence EO # 0.1 103/ul Normal 0.0-0.7 [facility] Comment on above: Performed By: #### C BC ####[facility] Tjxshjelrp5143 [place] [address]Dr. Flaco Lawrence Eosinophils/100 WBC (Bld) 1.2 % Normal 0.9-7.0 [facility] Comment on above: Performed By: #### C BC ####[facility] Bcfjdttwcd4[address] [place], [place] [address]Dr. Flaco Lawrence Erythrocyte distribution width (RBC) [Ratio] 13.2 % Normal 11.0-15.0 [facility] Comment on above: Performed By: #### C BC ####[facility] Ozanrxotie3[address] [place], [place] [address]Dr. Flaco Lawrence Hematocrit (Bld) [Volume fraction] 42.6 % Normal 42.0-54.0 [facility] Comment on above: Performed By: #### C BC ####[facility] Cwhutlzqka[address] [place], [place] [address]Dr. Flaco Lawrence Hemoglobin (Bld) [Mass/Vol] 14.0 g/dL Normal 14.0-18.0 [facility] Comment on above: Performed By: #### C BC ####[facility] [address]iillitgq[address] [place] [id number]. Flaco Lawrence IG # 0.05 10e3/ul Critically high 0.00-0.03 [facility] Comment on above: Performed By: #### C BC ####[facility] Aznqiefmhc[address] [place], [place] [address]Dr. Flaco Lawrence IG % 0.5 % Normal 0.0-0.5 [facility] Comment on above: Performed By: #### C BC ####[facility] Ikmlysccwx[address] [place], [place] [address]Dr. Purviedith Lawrence LYMPH # 1.5 103/ul Normal 1.2-3.8 [facility] Comment on above: Performed By: #### C BC ####[facility] [address]ubouffto[address] [place] [address]Dr. Flaco Branden Lymphocytes/100 WBC (Bld) 13.5 % Critically low 20.5-60.0 [facility] Comment on above: Performed By: #### C BC ####[facility] Hdqessfcgp6864 [place] [address]Dr. Purviedith Lawrence MANUAL DIFF REQ NO Normal [facility] Comment on above: Performed By: #### C BC ####[facility] Kumniyxbbm1840 [place] [address]Dr. Flaco Branden MCH (RBC) [Entitic mass] 29.0 pg Normal 25.9-34.0 [facility] Comment on above: Performed By: #### C BC ####[facility] Nmayawwvuh7[address] [place], [place] [address]Dr. Flaco Branden MCHC (RBC) [Mass/Vol] 32.9 g/dL Normal 29.9-35.2 [facility] Comment on above: Performed By: #### C BC ####[facility] Exlvluwxfd90[address] [place], [place] [address]Dr. Purviedith Lawrence MCV (RBC) [Entitic vol] 88.2 fL Normal 80.0-94.0 [facility] Comment on above: Performed By: #### C BC ####[facility] Rwqlgtsovl35[address] [place], [place] [address]Dr. Flaco Lawrence MONO # 1.0 103/ul Critically high 0.3-0.8 [facility] Comment on above: Performed By: #### C BC ####[facility] Hkfctededi37[address] [place] [address]Dr. Purviedith Lawrence Monocytes/100 WBC (Bld) 8.8 % Normal 1.7-12.0 [facility] Comment on above: Performed By: #### C BC ####[facility] Kkvrsldtyj7[address] [place], [place] [address]Dr. Flaco Lawrence NEUT # 8.4 103/ul Critically high 1.4-6.5 [facility] Comment on above: Performed By: #### C BC ####[facility] Icngqnhdno5831 [place] [phone]. Flaco Lawrence Neutrophils/100 WBC (Bld) 75.8 % Critically high 43.0-75.0 [facility] Comment on above: Performed By: #### C BC ####[facility] Rclfvdhndh3569 [place] [phone]. Flaco Lawrence Platelet mean volume (Bld) [Entitic vol] 10.2 fL Normal 9.5-13.5 [facility] Comment on above: Performed By: #### C BC ####[facility] Cgsrsbssci6002 [place] [phone]. Flaco Lawrence PLT 329 103/ul Normal 150-450 [facility] Comment on above: Performed By: #### C BC ####[facility] Imswsungyv3816 [place] [phone]. Flaco Lawrence RBC 4.83 106/ul Normal 4.70-6.10 [facility] Comment on above: Performed By: #### C BC ####[facility] Gsfibppadb1882 [place] [phone]. Flaco Lawrence WBC 11.0 103/ul Normal 4.0-11.0 [facility] Comment on above: Performed By: #### C BC ####[facility] Aduyotxtcs3834 [place] [phone]. Flaco Lawrence PROF 14(COMP METB)on 022 Albumin [Mass/Vol] 2.6 g/dL Critically low 3.4-5.0 [facility] Comment on above: Performed By: #### C MP ####[facility] Jodwncgwaa7532 [place] [phone]. Flaco Lawrence Albumin/Globulin [Mass ratio] 0.6 {ratio} Normal [facility] Comment on above: Performed By: #### C MP ####[facility] Tjurdtnsjc5492 [place] [phone]. Flaco Branden ALP [Catalytic activity/Vol] 58 U/L Normal 46-116 [facility] Comment on above: Performed By: #### C MP ####[facility] Pdilvfdypt5952 [place] [phone]. Flaco Lawrence ALT [Catalytic activity/Vol] 23 U/L Normal 16-63 [facility] Comment on above: Performed By: #### C MP ####[facility] Ngppvfklvx4101 [place] [address]Dr. Flaco Lawrence Anion gap [Moles/Vol] 14.9 mmol/L Normal [facility] Comment on above: Performed By: #### C MP ####[facility] Jsjwrpkrsm6278 [place] [address]Dr. Flaco Lawrence AST [Catalytic activity/Vol] 23 U/L Normal 15-37 [facility] Comment on above: Performed By: #### C MP ####[facility] Huttyqvtwt[address] [place], [place] [address]Dr. Flaco Lawrence Bilirubin [Mass/Vol] 0.6 mg/dL Normal 0.2-1.0 [facility] Comment on above: Performed By: #### C MP ####[facility] Lpmeyjjgtz96[address] [place], [place] [address]Dr. Flaco Lawrence Calcium [Mass/Vol] 8.8 mg/dL Normal 8.5-10.1 [facility] Comment on above: Performed By: #### C MP ####[facility] Fiewepgzfa7[address] [place], [place] [address]Dr. Flaco Lawrence Chloride [Moles/Vol] 104 mmol/L Normal 98-107 [facility] Comment on above: Performed By: #### C MP ####[facility] Cdcmyfycll3652 [place] [address]Dr. Flaco Lawrence CO2 [Moles/Vol] 21.3 mmol/L Normal 21.0-32.0 [facility] Comment on above: Performed By: #### C MP ####[facility] Ycmttundix8184[address] [place], [place] [address]Dr. Flaco Lawrence Creatinine [Mass/Vol] 2.08 mg/dL Critically high 0.70-1.30 [facility] Comment on above: Performed By: #### C MP ####[facility] Clzheatbtq6338 [place] [address]Dr. Flaco Lawrence EGFR-AF ANGOLAN 38 mL/min/1.73m2 Critically low >=60 [facility] Comment on above: Performed By: #### C MP ####[facility] Tjyvfkiyha3513 [place] [address]Dr. Flaco Lawrence EGFR-NON AF ANGOLAN 32 mL/min/1.73m2 Critically low >=60 [facility] Comment on above: Performed By: #### C MP ####[facility] Jibcivfcmi3980 [place] [address]Dr. Flaco Lawrence Globulin (S) [Mass/Vol] 4.1 g/dL Normal [facility] Comment on above: Performed By: #### C MP ####[facility] Kyjyjiajnh5632 [place] [address]Dr. Flaco Lawrence Glucose [Mass/Vol] 87 mg/dL Normal 74-106 [facility] Comment on above: Performed By: #### C MP ####[facility] Lpmvsshtxz0064 [place] [address]Dr. Flaco Lawrence Potassium [Moles/Vol] 4.2 mmol/L Normal 3.5-5.1 [facility] Comment on above: Performed By: #### C MP ####[facility] Crxlfvcldn4334 [place] [address]Dr. Flaco Lawrence Protein [Mass/Vol] 6.7 g/dL Normal 6.4-8.2 [facility] Comment on above: Performed By: #### C MP ####[facility] Qvlhmecdgd9261 [place] [address]Dr. Flaco Lawrence Sodium [Moles/Vol] 136 mmol/L Normal 136-145 [facility] Comment on above: Performed By: #### C MP ####[facility] Noluroxsdt4087 [place] [address]Dr. Flaco Lawrence Urea nitrogen [Mass/Vol] 32.0 mg/dL Critically high 7.0-18.0 [facility] Comment on above: Performed By: #### C MP ####[facility] Tiizkdfyoj7671 [place] [address]Dr. Flaco Lawrence Urea nitrogen/Creatinine [Mass ratio] 15.4 mg/mg Normal [facility] Comment on above: Performed By: #### C MP ####[facility] Ulyzbdnbuw9099 [place] [address]Dr. Flaco Lawrence CBC AUTO DIFFon 08-01-2022 BASO # 0.0 103/ul Normal 0.0-0.1 [facility] Comment on above: Performed By: #### C BC ####[facility] Hgzmuognza5[address] [place], [place] [address]Dr. Flaco Lawrence Basophils/100 WBC (Bld) 0.1 % Critically low 0.2-2.0 [facility] Comment on above: Performed By: #### C BC ####[facility] Xbpuceoytj7764[address] [place], [place] [address]Dr. Flaco Lawrence EO # 0.0 103/ul Normal 0.0-0.7 [facility] Comment on above: Performed By: #### C BC ####[facility] Tsqvniotkd[address] [place], [place] [address]Dr. Flaco Lawrence Eosinophils/100 WBC (Bld) 0.3 % Critically low 0.9-7.0 [facility] Comment on above: Performed By: #### C BC ####[facility] Cdynerqlig5065[address] [place], [place] [address]Dr. Flaco Lawrence Erythrocyte distribution width (RBC) [Ratio] 13.5 % Normal 11.0-15.0 [facility] Comment on above: Performed By: #### C BC ####[facility] Rwmbyshkuu8335[address] [place], [place] [address]Dr. Flaco Lawrenec Hematocrit (Bld) [Volume fraction] 42.0 % Normal 42.0-54.0 [facility] Comment on above: Performed By: #### C BC ####[facility] Ypdevlsiwi4089[address] [place], [place] [address]Dr. Flaco Lawrence Hemoglobin (Bld) [Mass/Vol] 13.6 g/dL Critically low 14.0-18.0 [facility] Comment on above: Performed By: #### C BC ####[facility] Cxjlhlkviu3596 [place] [phone]. Flaco Lawrence IG # 0.04 10e3/ul Critically high 0.00-0.03 [facility] Comment on above: Performed By: #### C BC ####[facility] Edsmhubiay2234 [place] [phone]. Flaco Lawrence IG % 0.4 % Normal 0.0-0.5 [facility] Comment on above: Performed By: #### C BC ####[facility] Tzngyauhmv1507 [place] [address]Dr. Flaco Lawrence LYMPH # 1.0 103/ul Critically low 1.2-3.8 [facility] Comment on above: Performed By: #### C BC ####[facility] Jubcofofjg6438 [place] [address]Dr. Flaco Lawrence Lymphocytes/100 WBC (Bld) 9.3 % Critically low 20.5-60.0 [facility] Comment on above: Performed By: #### C BC ####[facility] Jfbkvushjb1735 [place] [address]Dr. Flaco Lawrence MANUAL DIFF REQ NO Normal [facility] Comment on above: Performed By: #### C BC ####[facility] Iwregsnmbn0416 [place] [address]Dr. Flaco Lawrence MCH (RBC) [Entitic mass] 28.7 pg Normal 25.9-34.0 [facility] Comment on above: Performed By: #### C BC ####[facility] Bhojmjoxrg408[address] [place], [place] [address]Dr. Flaco Lawrence MCHC (RBC) [Mass/Vol] 32.4 g/dL Normal 29.9-35.2 [facility] Comment on above: Performed By: #### C BC ####[facility] Ibwrjmjrra7010 [place] [address]Dr. Flaco Lawrence MCV (RBC) [Entitic vol] 88.6 fL Normal 80.0-94.0 [facility] Comment on above: Performed By: #### C BC ####[facility] Lavezyhdub7115 [place] [phone]. Flaco Lawrence MONO # 1.2 103/ul Critically high 0.3-0.8 [facility] Comment on above: Performed By: #### C BC ####[facility] Qmkkcsgzsy0717 [place] [phone]. Flaco Lawrence Monocytes/100 WBC (Bld) 11.0 % Normal 1.7-12.0 [facility] Comment on above: Performed By: #### C BC ####[facility] Yokitryabk7895 [place] [phone]. Flaco Lawrence NEUT # 8.4 103/ul Critically high 1.4-6.5 [facility] Comment on above: Performed By: #### C BC ####[facility] Oqxekgtizb20[address] [place], [place] [address]Dr. Flaco Lawrence Neutrophils/100 WBC (Bld) 78.9 % Critically high 43.0-75.0 [facility] Comment on above: Performed By: #### C BC ####[facility] Cjysgxqydv8[address] [place], [place] [address]Dr. Flaco Lawrence Platelet mean volume (Bld) [Entitic vol] 10.0 fL Normal 9.5-13.5 [facility] Comment on above: Performed By: #### C BC ####[facility] Ldkzzvbofm57[address] [place], [place] [address]Dr. Flaco Lawrence PLT 308 103/ul Normal 150-450 [facility] Comment on above: Performed By: #### C BC ####[facility] Vkksrotmyr[address] [place], [place] [id number]. Flaco Lawrence RBC 4.74 106/ul Normal 4.70-6.10 [facility] Comment on above: Performed By: #### C BC ####[facility] Gsojpxutws6[address] [place], [place] [id number]. Flaco Lawrence WBC 10.7 103/ul Normal 4.0-11.0 [facility] Comment on above: Performed By: #### C BC ####[facility] Uuadevtxwz4146 [place] [address]Dr. Flaco Lawrence PROF 14(COMP METB)on 022 Albumin [Mass/Vol] 2.6 g/dL Critically low 3.4-5.0 [facility] Comment on above: Performed By: #### C MP ####[facility] Denpcytzib4019 [place] [address]Dr. Flaco Lawrence Albumin/Globulin [Mass ratio] 0.6 {ratio} Normal [facility] Comment on above: Performed By: #### C MP ####[facility] Wmqjwhaprn7790 [place] [address]Dr. Flaco Lawrence ALP [Catalytic activity/Vol] 58 U/L Normal 46-116 [facility] Comment on above: Performed By: #### C MP ####[facility] Niuabhtvra4256 [place] [address]Dr. Flaco Lawrence ALT [Catalytic activity/Vol] 24 U/L Normal 16-63 [facility] Comment on above: Performed By: #### C MP ####[facility] Yamasedbqf1746[address] [place], [place] [address]Dr. Flaco Lawrence Anion gap [Moles/Vol] 14.8 mmol/L Normal [facility] Comment on above: Performed By: #### C MP ####[facility] Wfxpyghqzn319[address] [place], [place] [address]Dr. Flaco Lawrence AST [Catalytic activity/Vol] 33 U/L Normal 15-37 [facility] Comment on above: Performed By: #### C MP ####[facility] Ibmizbeogh3222[address] [place], [place] [address]Dr. Flaco Lawrence Bilirubin [Mass/Vol] 1.0 mg/dL Normal 0.2-1.0 [facility] Comment on above: Performed By: #### C MP ####[facility] Tbjzdalrxp6089 [place] [address]Dr. Flaco Lawrence Calcium [Mass/Vol] 8.7 mg/dL Normal 8.5-10.1 [facility] Comment on above: Performed By: #### C MP ####[facility] Hwhvtaumxk0094 [place] [phone]. Flaco Lawrence Chloride [Moles/Vol] 104 mmol/L Normal 98-107 [facility] Comment on above: Performed By: #### C MP ####[facility] Ftnpwiljke7540 [place] [phone]. Flaco Lawrence CO2 [Moles/Vol] 21.2 mmol/L Normal 21.0-32.0 [facility] Comment on above: Performed By: #### C MP ####[facility] Ygwkkjqgei8664[address] [place], [place] [address]Dr. Flaco Lawrence Creatinine [Mass/Vol] 1.90 mg/dL Critically high 0.70-1.30 [facility] Comment on above: Performed By: #### C MP ####[facility] Aunlpvlyta7[address] [place], [place] [address]Dr. Flaco Lawrence EGFR-AF ANGOLAN 43 mL/min/1.73m2 Critically low >=60 [facility] Comment on above: Performed By: #### C MP ####[facility] Haavtpylxx7239[address] [place], [place] [address]Dr. Flaco Lawrence EGFR-NON AF ANGOLAN 35 mL/min/1.73m2 Critically low >=60 [facility] Comment on above: Performed By: #### C MP ####[facility] Ojkiapjdkz9028[address] [place], [place] [address]Dr. Flaco Lawrence Globulin (S) [Mass/Vol] 4.0 g/dL Normal [facility] Comment on above: Performed By: #### C MP ####[facility] Zkymdnzpiz012[address] [place], [place] [address]Dr. Flaco Lawrence Glucose [Mass/Vol] 82 mg/dL Normal 74-106 [facility] Comment on above: Performed By: #### C MP ####[facility] Wikvwcnneo7422[address] [place], [place] [address]Dr. Flaco Lawrence Potassium [Moles/Vol] 4.0 mmol/L Normal 3.5-5.1 [facility] Comment on above: Performed By: #### C MP ####[facility] Wcirmsbekx7996 [place] [phone]. Flaco Lawrence Protein [Mass/Vol] 6.6 g/dL Normal 6.4-8.2 [facility] Comment on above: Performed By: #### C MP ####[facility] Llwateegva3584[address] [place], [place] [address]Dr. Flaco Lawrence Sodium [Moles/Vol] 136 mmol/L Normal 136-145 [facility] Comment on above: Performed By: #### C MP ####[facility] Vlstqudort5535[address] [place], [place] [address]Dr. Flaco Lawrence Urea nitrogen [Mass/Vol] 29.0 mg/dL Critically high 7.0-18.0 [facility] Comment on above: Performed By: #### C MP ####[facility] Vgbipdzbjb165[address] [place], [place] [address]Dr. Flaco Lawrence Urea nitrogen/Creatinine [Mass ratio] 15.3 mg/mg Normal [facility] Comment on above: Performed By: #### C MP ####[facility] Uwafohbksw406[address] [place], [place] [address]Dr. Flaco Lawrence CBC AUTO DIFFon 07-31-2022 BASO # 0.0 103/ul Normal 0.0-0.1 [facility] Comment on above: Performed By: #### C BC ####[facility] Oeuyotnjij213[address] [place], [place] [address]Dr. Flaco Lawrence Basophils/100 WBC (Bld) 0.2 % Normal 0.2-2.0 [facility] Comment on above: Performed By: #### C BC ####[facility] Tewdibmtfo7837[address] [place], [place] [address]Dr. Flaco Lawrence EO # 0.0 103/ul Normal 0.0-0.7 [facility] Comment on above: Performed By: #### C BC ####[facility] Junknagkmi045[address] [place], [place] [address]Dr. Flaco Lawrence Eosinophils/100 WBC (Bld) 0.1 % Critically low 0.9-7.0 [facility] Comment on above: Performed By: #### C BC ####[facility] Ypipicluei5146 [place] [address]Dr. Flaco Lawrence Erythrocyte distribution width (RBC) [Ratio] 13.7 % Normal 11.0-15.0 [facility] Comment on above: Performed By: #### C BC ####[facility] Mggnwhhdwp6769[address] [place], [place] [address]Dr. Flaco Lawrence Hematocrit (Bld) [Volume fraction] 40.1 % Critically low 42.0-54.0 [facility] Comment on above: Performed By: #### C BC ####[facility] Ghphrcjzyh4876[address] [place], [place] [address]Dr. Flaco Lawrence Hemoglobin (Bld) [Mass/Vol] 13.1 g/dL Critically low 14.0-18.0 [facility] Comment on above: Performed By: #### C BC ####[facility] Jvrxlbrmds17[address] [place], [place] [address]Dr. Flaco Lawrence IG # 0.03 10e3/ul Normal 0.00-0.03 [facility] Comment on above: Performed By: #### C BC ####[facility] Lxiaamdqjt6010[address] [place], [place] [address]Dr. Flaco Lawrence IG % 0.3 % Normal 0.0-0.5 [facility] Comment on above: Performed By: #### C BC ####[facility] Njlighxiue4174[address] [place], [place] [address]Dr. Flaco Lawrence LYMPH # 1.7 103/ul Normal 1.2-3.8 [facility] Comment on above: Performed By: #### C BC ####[facility] Xnnkfjodfs5[address] [place], [place] [address]Dr. Flaco Lawrence Lymphocytes/100 WBC (Bld) 16.2 % Critically low 20.5-60.0 [facility] Comment on above: Performed By: #### C BC ####[facility] Bogkjowvha85[address] [place], [place] [address]Dr. Flaco Lawrence MANUAL DIFF REQ NO Normal [facility] Comment on above: Performed By: #### C BC ####[facility] Qfmovjomox9497 [place] [phone]. Flaco Branden MCH (RBC) [Entitic mass] 29.2 pg Normal 25.9-34.0 [facility] Comment on above: Performed By: #### C BC ####[facility] Ogwpnqnlvh5956 [place] [phone]. Flaco Branden MCHC (RBC) [Mass/Vol] 32.7 g/dL Normal 29.9-35.2 [facility] Comment on above: Performed By: #### C BC ####[facility] Aqqbsuvxve5235 [place] [address]Dr. Purviedith Lawrence MCV (RBC) [Entitic vol] 89.3 fL Normal 80.0-94.0 [facility] Comment on above: Performed By: #### C BC ####[facility] Jiehitsvya37[address] [place], [place] [address]Dr. Flaco Lawrence MONO # 1.2 103/ul Critically high 0.3-0.8 [facility] Comment on above: Performed By: #### C BC ####[facility] Ynmzrhhmcg139[address] [place], [place] [address]Dr. Flaco Lawrence Monocytes/100 WBC (Bld) 11.1 % Normal 1.7-12.0 [facility] Comment on above: Performed By: #### C BC ####[facility] Pwlkwujhdh40[address] [place], [place] [address]Dr. Flaco Lawrence NEUT # 7.7 103/ul Critically high 1.4-6.5 [facility] Comment on above: Performed By: #### C BC ####[facility] Rmeivygznk[address] [place], [place] [id number] Lawrence Neutrophils/100 WBC (Bld) 72.1 % Normal 43.0-75.0 [facility] Comment on above: Performed By: #### C BC ####[facility] Xiufozmxee7058 [place] [address]Dr. Flaco Lawrence Platelet mean volume (Bld) [Entitic vol] 9.9 fL Normal 9.5-13.5 [facility] Comment on above: Performed By: #### C BC ####[facility] Bnyqylxneg2788 [place] [address]Dr. Purviedith Branden PLT 263 103/ul Normal 150-450 [facility] Comment on above: Performed By: #### C BC ####[facility] Jvvfwbjfpt9558 [place] [phone]. Purviedith Lawrence RBC 4.49 106/ul Critically low 4.70-6.10 [facility] Comment on above: Performed By: #### C BC ####[facility] Ceoplxlbsh9831 [place] [phone]. Purviedith Branden WBC 10.7 103/ul Normal 4.0-11.0 [facility] Comment on above: Performed By: #### C BC ####[facility] Cwvswegmzf5528 [place] [address]Dr. Flaco Lawrence PROF 14(COMP METB)on 022 Albumin [Mass/Vol] 2.8 g/dL Critically low 3.4-5.0 [facility] Comment on above: Performed By: #### C MP ####[facility] Oclxwzqacv2879 [place] [address]Dr. Flaco Lawrence Albumin/Globulin [Mass ratio] 0.8 {ratio} Normal [facility] Comment on above: Performed By: #### C MP ####[facility] Buabtnacrp4217 [place] [address]Dr. Flaco Lawrence ALP [Catalytic activity/Vol] 59 U/L Normal 46-116 [facility] Comment on above: Performed By: #### C MP ####[facility] Azqymmhgqc8876 [place] [address]Dr. Flaco Lawrence ALT [Catalytic activity/Vol] 30 U/L Normal 16-63 [facility] Comment on above: Performed By: #### C MP ####[facility] Pjhcvurnai5126 [place] [address]Dr. Flaco Lawrence Anion gap [Moles/Vol] 14.8 mmol/L Normal [facility] Comment on above: Performed By: #### C MP ####[facility] Wvheehwcog4368 [place] [phone]. Flaco Lawrence AST [Catalytic activity/Vol] 56 U/L Critically high 15-37 [facility] Comment on above: Performed By: #### C MP ####[facility] Jxuivtzjtg3403 [place] [phone]. Flaco Lawrence Bilirubin [Mass/Vol] 0.8 mg/dL Normal 0.2-1.0 [facility] Comment on above: Performed By: #### C MP ####[facility] Utamsmthac9896 [place] [address]Dr. Flaco Lawrence Calcium [Mass/Vol] 9.0 mg/dL Normal 8.5-10.1 [facility] Comment on above: Performed By: #### C MP ####[facility] Ianyjthbst[address] [place], [place] [address]Dr. Flaco Lawrence Chloride [Moles/Vol] 106 mmol/L Normal 98-107 [facility] Comment on above: Performed By: #### C MP ####[facility] Rlrglfaqig82[address] [place], [place] [address]Dr. Flaco Lawrence CO2 [Moles/Vol] 24.7 mmol/L Normal 21.0-32.0 [facility] Comment on above: Performed By: #### C MP ####[facility] Dxlfretzqu7[address] [place], [place] [id number]. Flaco Lawrence Creatinine [Mass/Vol] 2.12 mg/dL Critically high 0.70-1.30 [facility] Comment on above: Performed By: #### C MP ####[facility] Tkyfwfwvib1089 [place] [phone]. Flaco Branden EGFR-AF ANGOLAN 38 mL/min/1.73m2 Critically low >=60 [facility] Comment on above: Performed By: #### C MP ####[facility] Kdduxeasil4089 [place] [phone]. Purviedith Branden EGFR-NON AF ANGOLAN 31 mL/min/1.73m2 Critically low >=60 [facility] Comment on above: Performed By: #### C MP ####[facility] Orhldsjwkh3977 [place] [address]Dr. Flaco Lawrence Globulin (S) [Mass/Vol] 3.7 g/dL Normal [facility] Comment on above: Performed By: #### C MP ####[facility] Bizaiprbma8392 [place] [address]Dr. Flaco Lawrence Glucose [Mass/Vol] 79 mg/dL Normal 74-106 [facility] Comment on above: Performed By: #### C MP ####[facility] Hbypybuhki8776 [place] [address]Dr. Flaco Lawrence Potassium [Moles/Vol] 3.5 mmol/L Normal 3.5-5.1 [facility] Comment on above: Performed By: #### C MP ####[facility] [address]fzluzjiv[address] [place], [place] [address]Dr. Flaco Lawrence Protein [Mass/Vol] 6.5 g/dL Normal 6.4-8.2 The [facility] Comment on above: Performed By: #### C MP ####[facility] V[address]fsqpqove[address] [place], [place] [address]Dr. Flaco Lawrence Sodium [Moles/Vol] 142 mmol/L Normal 136-145 The [facility] Comment on above: Performed By: #### C MP ####[facility] Opasvwcpse[address] [place], [place] [address]Dr. Flaco Branden Urea nitrogen [Mass/Vol] 32.0 mg/dL Critically high 7.0-18.0 [facility] Comment on above: Performed By: #### C MP ####[facility] Nqbazmauax[address] [place] [address]Dr. Flaco Branden Urea nitrogen/Creatinine [Mass ratio] 15.1 mg/mg Normal [facility] Comment on above: Performed By: #### C MP ####[facility] Rvzwemmdjp0296 [place] [address]Dr. Purviedith Branden T4on 07-31-2022 T4 [Mass/Vol] 7.10 ug/dL Normal 4.50-12.10 The [facility] Comment on above: Performed By: #### T SH, T4 ####[facility] Hwnczjmzgi5[address] [place] [address]Dr. Flaco Lawrence TSHon 07-31-2022 TSH 0.871 uIU/mL Normal 0.358-3.740 The [facility] Comment on above: Performed By: #### T SH, T4 ####[facility] Zhloizqfww[address] [place], [place] [address]Dr. Flaco Lawrence VIT B12 AND FOLATEon 022 Cobalamin (Vitamin B12) [Mass/Vol] 130.0 pg/mL Critically low 193.0-986.0 [facility] Comment on above: Performed By: #### B 12FOL ####[facility] Vpwtrtdmuc50[address] [place], [place] [address]Dr. Flaco Lawrence FOLATE 6.20 ng/mL Critically low 8.60-58.90 The [facility] Comment on above: Performed By: #### B 12FOL ####[facility] Zpxolzdjym7[address] [place], [place] [address]Dr. Flaco Lawrence AMMONIAon 07-30-2022 Ammonia (P) [Mass/Vol] ug/dL Critically low 11-32 [facility] Comment on above: Performed By: #### A MM ####[facility] Qamrqpxvwf5[address] [place], [place] [address]Dr. Flaco Lawrence CBC AUTO DIFFon 07-30-2022 BASO # 0.0 103/ul Normal 0.0-0.1 [facility] Comment on above: Performed By: #### C BC ####[facility] Igwvphqrqb136[address] [place], [place] [address]Dr. Flaco Lawrence Basophils/100 WBC (Bld) 0.1 % Critically low 0.2-2.0 [facility] Comment on above: Performed By: #### C BC ####[facility] Gffnzcrmed60[address] [place], [place] [address]Dr. Flaco Lawrence EO # 0.0 103/ul Normal 0.0-0.7 [facility] Comment on above: Performed By: #### C BC ####[facility] Iojzmmsrlj5534 [place] [phone]. Flaco Lawrence Eosinophils/100 WBC (Bld) 0.1 % Critically low 0.9-7.0 [facility] Comment on above: Performed By: #### C BC ####[facility] Upvbgwskbi2826 [place] [address]Dr. Flaco Lawrence Erythrocyte distribution width (RBC) [Ratio] 13.5 % Normal 11.0-15.0 [facility] Comment on above: Performed By: #### C BC ####[facility] Znrtdgodim6366[address] [place], [place] [address]Dr. Flaco Lawrence Hematocrit (Bld) [Volume fraction] 37.8 % Critically low 42.0-54.0 [facility] Comment on above: Performed By: #### C BC ####[facility] Wzoeocujfv210[address] [place], [place] [address]Dr. Flaco Lawrence Hemoglobin (Bld) [Mass/Vol] 12.8 g/dL Critically low 14.0-18.0 [facility] Comment on above: Performed By: #### C BC ####[facility] Yqayltcivj5[address] [place], [place] [address]Dr. Flaco Lawrence IG # 0.06 10e3/ul Critically high 0.00-0.03 [facility] Comment on above: Performed By: #### C BC ####[facility] Oygwshzkiw5[address] [place], [place] [address]Dr. Flaco Lawrence IG % 0.4 % Normal 0.0-0.5 [facility] Comment on above: Performed By: #### C BC ####[facility] Ktekvuqxav2199[address] [place], [place] [address]Dr. Flaco Lawrence LYMPH # 1.0 103/ul Critically low 1.2-3.8 The [facility] Comment on above: Performed By: #### C BC ####[facility] Ldenivpyot[address] [place], [place] [address]Dr. Flaco Lawrence Lymphocytes/100 WBC (Bld) 7.0 % Critically low 20.5-60.0 [facility] Comment on above: Performed By: #### C BC ####[facility] Clqjdutpvs7462 [place] [address]Dr. Flaco Lawrence MANUAL DIFF REQ NO Normal The [facility] Comment on above: Performed By: #### C BC ####[facility] Xcxrbraiyz3208 [place] [phone]. Flaco Lawrence MCH (RBC) [Entitic mass] 29.6 pg Normal 25.9-34.0 [facility] Comment on above: Performed By: #### C BC ####[facility] Nkbriywsqp4880 [place] [address]Dr. Flaco Lawrence MCHC (RBC) [Mass/Vol] 33.9 g/dL Normal 29.9-35.2 [facility] Comment on above: Performed By: #### C BC ####[facility] Rhlnwezsgf044[address] [place], [place] [address]Dr. Flaco Lawrence MCV (RBC) [Entitic vol] 87.3 fL Normal 80.0-94.0 [facility] Comment on above: Performed By: #### C BC ####[facility] Ksihnpsbwn[address] [place], [place] [address]Dr. Flaco Lawrence MONO # 1.4 103/ul Critically high 0.3-0.8 [facility] Comment on above: Performed By: #### C BC ####[facility] Zbnuzootkk495[address] [place], [place] [address]Dr. Flaco Lawrence Monocytes/100 WBC (Bld) 9.2 % Normal 1.7-12.0 [facility] Comment on above: Performed By: #### C BC ####[facility] Qdtdyixmvj5975[address] [place], [place] [address]DrJeramie Lawrence NEUT # 12.3 103/ul Critically high 1.4-6.5 The [facility] Comment on above: Performed By: #### C BC ####[facility] Chmysskdfx1922[address] [place], [place] [address]Dr. Flaco Lawrence Neutrophils/100 WBC (Bld) 83.2 % Critically high 43.0-75.0 [facility] Comment on above: Performed By: #### C BC ####[facility] Wzlbvkukdy3281 [place] [phone]. Flaco Lawrence Platelet mean volume (Bld) [Entitic vol] 10.4 fL Normal 9.5-13.5 [facility] Comment on above: Performed By: #### C BC ####[facility] Oqfvlwuych5788 [place] [phone]. Flaco Lawrence PLT 266 103/ul Normal 150-450 [facility] Comment on above: Performed By: #### C BC ####[facility] Czjblkiygh9432 [place] [phone]. Flaco Lawrence RBC 4.33 106/ul Critically low 4.70-6.10 [facility] Comment on above: Performed By: #### C BC ####[facility] Nxjvajfrph9060 [place] [phone]. Flaco Branden WBC 14.8 103/ul Critically high 4.0-11.0 [facility] Comment on above: Performed By: #### C BC ####[facility] Zqhiomiisa0882 [place] [phone]. Flaco Branden CRPon 07-30-2022 CRP 12.2 mg/dL Critically high <=1.0 [facility] Comment on above: Performed By: #### C RP ####[facility] Aepreawywb4457 [place] [phone]. Purviedith Branden CT FOOT RT WO CONon 07-30-[address] FOOT RT WO CON Normal [facility] MRI BRAIN WO CONon 2 MRI BRAIN WO CON Normal The [facility] PROF 14(COMP METB)on 022 Albumin [Mass/Vol] 2.7 g/dL Critically low 3.4-5.0 [facility] Comment on above: Performed By: #### C MP ####[facility] Qnpogwafsf6239 [place] [phone]. Purviedith Lawrence Albumin/Globulin [Mass ratio] 0.7 {ratio} Normal [facility] Comment on above: Performed By: #### C MP ####[facility] Czgxtcxtde3221 [place] [address]Dr. Flaco Lawrence ALP [Catalytic activity/Vol] 61 U/L Normal 46-116 [facility] Comment on above: Performed By: #### C MP ####[facility] Spdkojaplf2335 [place] [address]Dr. Flaco Lawrence ALT [Catalytic activity/Vol] 27 U/L Normal 16-63 [facility] Comment on above: Performed By: #### C MP ####[facility] Mclqlzvucs9974 [place] [address]Dr. Flaco Lawrence Anion gap [Moles/Vol] 16.1 mmol/L Normal Th [facility] Comment on above: Performed By: #### C MP ####[facility] Mrwcelfqen01[address] [place], [place] [address]Dr. Flaco Lawrence AST [Catalytic activity/Vol] 39 U/L Critically high 15-37 [facility] Comment on above: Performed By: #### C MP ####[facility] Mmsqkobhjm04[address] [place], [place] [address]Dr. Flaco Lawrecne Bilirubin [Mass/Vol] 1.1 mg/dL Critically high 0.2-1.0 [facility] Comment on above: Performed By: #### C MP ####[facility] Abcomvazmc6169 [place] [address]Dr. Flaco Branden Calcium [Mass/Vol] 9.0 mg/dL Normal 8.5-10.1 [facility] Comment on above: Performed By: #### C MP ####[facility] Fadigpzkbb5149 [place] [address]Dr. Flaco Lawrence Chloride [Moles/Vol] 103 mmol/L Normal 98-107 [facility] Comment on above: Performed By: #### C MP ####[facility] Oungbvyaho[address] [place], [place] [address]Dr. Flaco Branden CO2 [Moles/Vol] 21.8 mmol/L Normal 21.0-32.0 [facility] Comment on above: Performed By: #### C MP ####[facility] Ifhwrhwqax6888 [place] [address]Dr. Flaco Lawrence Creatinine [Mass/Vol] 2.03 mg/dL Critically high 0.70-1.30 [facility] Comment on above: Performed By: #### C MP ####[facility] Dzgjizovry9361 [place] [phone]. Flaco Lawrence EGFR-AF ANGOLAN 39 mL/min/1.73m2 Critically low >=60 [facility] Comment on above: Performed By: #### C MP ####[facility] Zqzqkhkwtn1227 [place] [address]Dr. Flaco Lawrence EGFR-NON AF ANGOLAN 33 mL/min/1.73m2 Critically low >=60 [facility] Comment on above: Performed By: #### C MP ####[facility] Rrtdtyqpul0051 [place] [address]Dr. Flaco Lawrence Globulin (S) [Mass/Vol] 3.9 g/dL Normal [facility] Comment on above: Performed By: #### C MP ####[facility] Itygjhbusa2720 [place] [address]Dr. Flaco Lawrence Glucose [Mass/Vol] 122 mg/dL Critically high 74-106 [facility] Comment on above: Performed By: #### C MP ####[facility] Hfmxenlpkq2508 [place] [address]Dr. Flaco Lawrence Potassium [Moles/Vol] 2.9 mmol/L Critically low 3.5-5.1 [facility] Comment on above: Performed By: #### C MP ####[facility] Ybprzqqcgz7945 [place] [address]Dr. Flaco Lawrence Protein [Mass/Vol] 6.6 g/dL Normal 6.4-8.2 [facility] Comment on above: Performed By: #### C MP ####[facility] Fyfrmztibk[address] [place], [place] [address]Dr. Flaco Lawrence Sodium [Moles/Vol] 139 mmol/L Normal 136-145 [facility] Comment on above: Performed By: #### C MP ####[facility] Reptwoopgd2321 [place] [address]Dr. Flaco Lawrence Urea nitrogen [Mass/Vol] 30.0 mg/dL Critically high 7.0-18.0 [facility] Comment on above: Performed By: #### C MP ####[facility] Hnjdxrbkkk1746[address] [place], [place] [address]Dr. Flaco Lawrence Urea nitrogen/Creatinine [Mass ratio] 14.8 mg/mg Normal [facility] Comment on above: Performed By: #### C MP ####[facility] Lksgpjfzls7538[address] [place], [place] [address]Dr. Flaco Lawrence URIC ACID SERUMon 07-30-2022 Urate [Mass/Vol] 8.8 mg/dL Critically high 3.5-7.2 [facility] Comment on above: Performed By: #### U DAVID ####[facility] Vppavewoma44[address] [place], [place] [address]Dr. Flaco Lawrence AMMONIAon 07-29-2022 Ammonia (P) [Mass/Vol] ug/dL Critically low 11-32 [facility] Comment on above: Performed By: #### A MM ####[facility] Zjhiphizbh8230[address] [place], [place] [address]Dr. Flaco Lawrence BLOOD GASES BTYon 07-29-2022 02 MODE ROOM AIR Normal [facility] Comment on above: Performed By: #### A BG ####[facility] Yhnuqwlcuk[address] [place], [place] [address]Dr. Flaco Lawrence ALLENS TEST Positive Normal [facility] Comment on above: Performed By: #### A BG ####[facility] Rbasvzpuvr[address] [place], [place] [address]Dr. Flaco Lawrence Base excess Calc (Bld) [Moles/Vol] -3.7000 mmol/L Critically low -2.0-2.0 [facility] Comment on above: Performed By: #### A BG ####[facility] Bhhtayzixj3476[address] [place], [place] [address]Dr. Flaco Lawrence BIPAP PRESSURE Normal The [facility] Comment on above: Performed By: #### A BG ####[facility] Bbrneweumv6739 [place] [address]Dr. Flaco Lawrence CPAP Normal [facility] Comment on above: Performed By: #### A BG ####[facility] Zwrggqvzbu9780 [place] [address]Dr. Flaco Lawrence FIO2 Normal [facility] Comment on above: Performed By: #### A BG ####[facility] Ywpjkspdvm9314[address] [place], [place] [address]Dr. Flaco Lawrence HCO3 (Bld) [Moles/Vol] 20.4 mmol/L Critically low 22.0-26. 0 [facility] Comment on above: Performed By: #### A BG ####[facility] Ibzatlpekd316[address] [place], [place] [address]Dr. Flaco Larwence LPM Normal [facility] Comment on above: Performed By: #### A BG ####[facility] Ljxekgxjbk39[address] [place], [place] [address]Dr. Flaco Lawrence MINUTE VOLUME Normal [facility] Comment on above: Performed By: #### A BG ####[facility] Odzhiyfsgc2234[address] [place], [place] [address]Dr. Flaco Lawrence Oxygen (Bld) [Partial pressure] 73.0 mm[Hg] Critically low 80.0-100.0 [facility] Comment on above: Performed By: #### A BG ####[facility] Iiudymkmdc[address] [place], [place] [address]Dr. Flaco Lawrence Oxygen saturation in Blood 95.5 % Normal 95.0-100.0 [facility] Comment on above: Performed By: #### A BG ####[facility] Ccisudltjl232[address] [place], [place] [address]Dr. Flaco Lawrence PCO2 29.7 mmHg Critically low 35.0-45.0 The [facility] Comment on above: Performed By: #### A BG ####[facility] Hakvgfsvrt038[address] [place], [place] [address]Dr. Flaco Lawrence PEEP Normal [facility] Comment on above: Performed By: #### A BG ####[facility] Qfekxhictn3961 [place] [address]Dr. Flaco Lawrence pH (Bld) 7.445 [pH] Normal 7.350-7.450 [facility] Comment on above: Performed By: #### A BG ####[facility] Scwazgpaxy8869 [place] [address]Dr. Flaco Lawrence PIP Normal [facility] Comment on above: Performed By: #### A BG ####[facility] Bmbhaghgps5082 [place] [address]Dr. Flaco Lawrence PS Normal [facility] Comment on above: Performed By: #### A BG ####[facility] Tddkxwxnqq6988 [place] [address]Dr. Flaco Lawrence PUNCTURE SITE RR Normal [facility] Comment on above: Performed By: #### A BG ####[facility] Cktnsybghq[address] [place], [place] [address]Dr. Flaco Lawrence RATE [facility] Comment on above: Performed By: #### A BG ####[facility] Pxssugpynh15[address] [place], [place] [address]Dr. Flaco Lawrence VENT MODE [facility] Comment on above: Performed By: #### A BG ####[facility] Jbnzvfwolf4866[address] [place], [place] [address]Dr. Flaco Lawrence [place] [facility] Comment on above: Performed By: #### A BG ####[facility] Gyacrtlhcj[address] [place], [place] [address]Dr. Flaco Lawrence CBC W MANUAL DIFFon 07-29-20 22 ATYPICAL LYMPH # Normal [facility] Comment on above: Performed By: #### C BCMAN ####[facility] Dsmjngmuni3462 [place] [address]Dr. Flaco Lawrence ATYPICAL LYMPH % Normal [facility] Comment on above: Performed By: #### C BCMAN ####[facility] Ntuvrkradt4052 [place] [address]Dr. Flaco Lawrence BAND # 0.6 103/ul Critically high 0.0-0.3 [facility] Comment on above: Performed By: #### C BCMAN ####[facility] Vexdyqshii7414 [place] [phone]. Yilan Lawrence BAND % 4 % Normal 0-5 [facility] Comment on above: Performed By: #### C BCMAN ####[facility] Earmpoxcbd3882 [place] [phone]. Yilan Lawrence BASOM # 0.00 103/ul Normal 0.00-0.10 [facility] Comment on above: Performed By: #### C BCMAN ####[facility] Monqjplmxf5305 [place] [phone]. Yiedith Lawrence BASOM % 0.0 % Critically low 0.2-2.0 [facility] Comment on above: Performed By: #### C BCMAN ####[facility] Axndetczcf2101 [place] [address]Dr. Yilan Lawrence BLAST # Normal [facility] Comment on above: Performed By: #### C BCGAYATHRI ####[facility] Ranfulsjgh[address] [place], [place] [address]Dr. Yilan Lawrence BLAST % Normal [facility] Comment on above: Performed By: #### C BCMAN ####[facility] Nnucspghxa44[address] [place], [place] [address]Dr. Flaco Lawrence CORRECTED WBC Normal 4.0-11.0 [facility] Comment on above: Performed By: #### C BCMAN ####[facility] Pptxfxrsqs[address] [place], [place] [address]Dr. Yiedith Lawrence EOS # 0.00 103/ul Normal 0.00-0.70 [facility] Comment on above: Performed By: #### C BCMAN ####[facility] Nbyuvvuxbk[address] [place], [place] [address]Dr. Yilan Lawrence EOS% 0.0 % Critically low 0.9-7.0 The [facility] Comment on above: Performed By: #### C BCMAN ####[facility] Bfeqrdjlwg99[address] [place], [place] [address]Dr. Yilan Lawrence HCT 43.8 % Normal 42.0-54.0 [facility] Comment on above: Performed By: #### C CLEVELAND ####[facility] Stvvapwths0624 [place], [place] [address]Yr. Flaco Lawrence HGB 14.6 g/dl Normal 14.0-18.0 [facility] Comment on above: Performed By: #### C CLEVELAND ####[facility] Wqiqvjoesq9886 [place], [place] [address]Ue. Flaco Lawrence LYMPHM # 0.72 103/ul Critically low 1.20-3.80 [facility] Comment on above: Performed By: #### C C[place]AND ####[facility] Nixjtkxhuf3419 [place], [place] [address]Ug. Flaco Lawrence LYMPHM% 5.0 % Critically low 20.5-60.0 [facility] Comment on above: Performed By: #### C C[place]AND ####[facility] Lzwjoutsmo0461 [place], [place] [address]Kw. Flaco Lawrence MCH 29.6 pg Normal 25.9-34.0 [facility] Comment on above: Performed By: #### C C[place]AND ####[facility] Cqhbvxwwfo4830 [place], [place] [address]Vt. Flaco Lawrence MCHC 33.3 g/dl Normal 29.9-35.2 [facility] Comment on above: Performed By: #### C CLEVELAND ####[facility] Udsjembnyd4800 [place], [place] [address]Wu. Flaco Lawrence MCV 88.7 fL Normal 80.0-94.0 [facility] Comment on above: Performed By: #### C C[place]AND ####[facility] Cqswxztewy0675 [place], [place] [address]Lq. Flaco Lawrence METAMYELOCYTE # Normal [facility] Comment on above: Performed By: #### C C[place]AND ####[facility] Lsghxqxwpd5813 [place], [place] [address]Gd. Flaco Lawrence METAMYELOCYTE % Normal [facility] Comment on above: Performed By: #### C C[place]AND ####[facility] Iyzoubzxuw7240 [place] [phone]. Flaco Lawrence MONOM# 0.14 103/ul Critically low 0.30-0.80 [facility] Comment on above: Performed By: #### C C[place]AND ####[facility] Xuwjyhtogx7270 [place] [phone]. Flaco Lawrence MONOM% 1.0 % Critically low 1.7-12.0 [facility] Comment on above: Performed By: #### C C[place]AND ####[facility] Vrwerhizlb9467 [place] [phone]. Flaco Lawrence MPV 10.6 fL Normal 9.5-13.5 [facility] Comment on above: Performed By: #### C C[place]AND ####[facility] Qqygsekmxb[address] [place], [place] [address]Dr. Flaco Lawrence MYELOCYTE # Normal [facility] Comment on above: Performed By: #### C C[place]AND ####[facility] Arqkmnfph[address] [place], [place] [address]Dr. Flaco Lawrence MYELOCYTE % Normal [facility] Comment on above: Performed By: #### C C[place]AND ####[facility] Lqpgczhyjv94[address] [place], [place] [address]Dr. Flaco Lawrence NRBC Normal [facility] Comment on above: Performed By: #### C C[place]AND ####[facility] Mncpmggonr[address] [place], [place] [address]Dr. Flaco Lawrence PLT 267 103/ul Normal 150-450 [facility] Comment on above: Performed By: #### C C[place]AND ####[facility] Jdxvmpqziu9202 [place] [phone]. Flaco Lawrence RBC 4.94 106/ul Normal 4.70-6.10 [facility] Comment on above: Performed By: #### C C[place]AND ####[facility] Rnpccredgr1840 [place] [phone]. Flaco Lawrence RDW 13.6 % Normal 11.0-15.0 [facility] Comment on above: Performed By: #### C C[place]AND ####[facility] Zwiwvhwtmi4415 [place] [phone]. Flaco Lawrence SEG # 12.96 103/ul Critically high 1.40-6.50 [facility] Comment on above: Performed By: #### C BCGAYATHRI ####[facility] Yixwvevber8803 [place] [phone]. Flaco Lawrence SEG % 90.0 % Critically high 43.0-75.0 [facility] Comment on above: Performed By: #### C BCMAN ####[facility] Hzitcpmmld3400 [place] [phone]. Flaco Lawrence TOXIC GRANULATION 2+ Normal [facility] Comment on above: Performed By: #### C C[place] ####[facility] Uhozqisexg1021 [place] [phone]. Flaco Lawrence WBC 14.4 103/ul Critically high 4.0-11.0 [facility] Comment on above: Performed By: #### C C[place]AND ####[facility] Dxadvrfaar4205 [place] [address]Dr. Fl[address] Lawrence CT ABD/PELVIS WO CONon 07-29 CT ABD/PELVIS WO CON Normal [facility] CT HEAD WO CONon 07-29-2022 CT HEAD WO CON Normal [facility] CULTURE URINEon 07-29-2022 CULTURE URINE Culture Observations : NO GROWTH. Normal [facility] Comment on above: Performed By: #### U RCX ####[facility] Tqyntprdix5326 [place] [phone]. Purviedith Lawrence ER URINE PROFILEon 2 Bilirubin Ql (U) MODERATE Abnormal NEGATIVE [facility] Comment on above: Performed By: #### EVETTE RAMON ####[facility] Csayuksgoq4916 [place] [phone]. Flaco Lawrence Clarity (U) CLEAR Normal CLEAR [facility] Comment on above: Performed By: #### Riccardo SENA UMICRO ####[facility] Amzvvrafrp8461 [place] [phone]. Flaco Lawrence Color (U) YELLOW Normal YELLOW [facility] Comment on above: Performed By: #### EVERARDO RAMONRO ####[facility] Utyjqvmlnm[address] [place], [place] [address]Dr. Flaco CURRY A micrscopic examination will be performed if indicated. Normal [facility] Comment on above: Performed By: #### EVERARDO RAMONRO ####[facility] Ljwsplatoo8497 [place] [address]Dr. Flaco Lawrence Glucose Ql (U) Negative Normal NEGATIVE [facility] Comment on above: Performed By: #### EVERARDO RAMONRO ####[facility] Uigmhuisud6[address] [place], [place] [address]Dr. Flaco Lawrence Hemoglobin Ql (U) MODERATE Abnormal NEGATIVE [facility] Comment on above: Performed By: #### EVERARDO RAMONRO ####[facility] Sqlgsypwce85[address] [place], [place] [address]Dr. Flaco Lawrence Ketones Ql (U) 40 mg/dl Abnormal NEGATIVE [facility] Comment on above: Performed By: #### EVERARDO RAMONRO ####[facility] Fwsvlasopa[address] [place], [place] [address]Dr. Flaco Lawrence LEUKOCYTES Negative Normal NEGATIVE [facility] Comment on above: Performed By: #### EVERARDO RAMONRO ####[facility] Z[address]scsfrai[address] [place], [place] [address]Dr. Flaco Lawrence Nitrite Ql (U) Negative Normal NEGATIVE [facility] Comment on above: Performed By: #### EVERARDO RAMONRO ####[facility] Xfsazopdsa[address] [place], [place] [address]Dr. Flaco Lawrence pH (U) 5.5 [pH] Normal 5-9 [facility] Comment on above: Performed By: #### EVERARDO RAMONRO ####[facility] Gqdgamkhfw[address] [place], [place] [address]Dr. Flaco Lawrence Protein (U) [Mass/Vol] 100 mg/dL Abnormal NEGAT LIANNE/ TRACE [facility] Comment on above: Performed By: #### EVERARDO RAMONRO ####[facility] Z[address]ssndtclz[address] [place] [address]Dr. Flaco Lawrence SPEC GRAVITY >=1.030 Abnormal 1.005-<=1.02 5 [facility] Comment on above: Performed By: #### EVETTE RAMON ####[facility] Hopnpfrleh[address] [place] [address]Dr. Flaco Lawrence UR MICRO IND INDICATED Normal [facility] Comment on above: Performed By: #### EVETTE RAMON ####[facility] Tuygofgdnx4032 [place] [address]Dr. Flaco Lawrence Urobilinogen Qn (U) 1.0 {Tuan'U}/dL Normal 0.2 - 1. 0 [facility] Comment on above: Performed By: #### EVETTE RAMON ####[facility] Broheyvtns[address] [place] [address]Dr. Flaco Lawrence LACTATE/LACTIC ACIDon 2021 Lactate [Moles/Vol] 2.3 mmol/L Critically high 0.4-1.9 [facility] Comment on above: Performed By: #### L ACT ####[facility] Gyarskhxzg[address] [place], [place] [address]Dr. Flaco Lawrence PROF 14(COMP METB)on 022 Albumin [Mass/Vol] 2.9 g/dL Critically low 3.4-5.0 [facility] Comment on above: Performed By: #### C MP ####[facility] Rmtjuxpfes[address] [place], [place] [address]Dr. Flaco Lawrence Albumin/Globulin [Mass ratio] 0.7 {ratio} Normal [facility] Comment on above: Performed By: #### C MP ####[facility] Vziwpfhxxm[address] [place], [place] [address]Dr. Flaco Lawrence ALP [Catalytic activity/Vol] 78 U/L Normal 46-116 [facility] Comment on above: Performed By: #### C MP ####[facility] Xfmundvcay4[address] [place], [place] [address]Dr. Flaco Lawrence ALT [Catalytic activity/Vol] 33 U/L Normal 16-63 [facility] Comment on above: Performed By: #### C MP ####[facility] Jtycevpsyv79[address] [place] [address]Dr. Purviedith Branden Anion gap [Moles/Vol] 14.5 mmol/L Normal [facility] Comment on above: Performed By: #### C MP ####[facility] Nybgeostsk1679 [place] [address]Dr. Purviedith Lawrence AST [Catalytic activity/Vol] 38 U/L Critically high 15-37 [facility] Comment on above: Performed By: #### C MP ####[facility] Cotmyldyrx20[address] [place], [place] [address]Dr. Flaco Lawrence Bilirubin [Mass/Vol] 1.6 mg/dL Critically high 0.2-1.0 [facility] Comment on above: Performed By: #### C MP ####[facility] Xobrenrhlq[address] [place], [place] [address]Dr. Flaco Lawrence Calcium [Mass/Vol] 9.2 mg/dL Normal 8.5-10.1 [facility] Comment on above: Performed By: #### C MP ####[facility] Pebsyzofeu32[address] [place], [place] [address]Dr. Flaco Lawrence Chloride [Moles/Vol] 104 mmol/L Normal 98-107 [facility] Comment on above: Performed By: #### C MP ####[facility] Ksvpztccmw[address] [place], [place] [address]Dr. Flaco Lawrence CO2 [Moles/Vol] 23.5 mmol/L Normal 21.0-32.0 [facility] Comment on above: Performed By: #### C MP ####[facility] Dvcxiicwkj1938[address] [place], [place] [address]Dr. Flaco Lawrence Creatinine [Mass/Vol] 1.95 mg/dL Critically high 0.70-1.30 [facility] Comment on above: Performed By: #### C MP ####[facility] Kmnatifwaa[address] [place], [place] [address]Dr. Flaco Lawrence EGFR-AF ANGOLAN 41 mL/min/1.73m2 Critically low >=60 [facility] Comment on above: Performed By: #### C MP ####[facility] Rwzarhywpq3394 [place] [address]Dr. Flaco Branden EGFR-NON AF ANGOLAN 34 mL/min/1.73m2 Critically low >=60 [facility] Comment on above: Performed By: #### C MP ####[facility] Fptfwnyavq2127 [place] [address]Dr. Flaco Lawrence Globulin (S) [Mass/Vol] 4.3 g/dL Normal [facility] Comment on above: Performed By: #### C MP ####[facility] Kqugmgnbfe[address] [place], [place] [address]Dr. Flaco Lawrence Glucose [Mass/Vol] 169 mg/dL Critically high 74-106 T [facility] Comment on above: Performed By: #### C MP ####[facility] Wjklfxlpkx4257[address] [place], [place] [address]Dr. Flaco Lawrence Potassium [Moles/Vol] 4.0 mmol/L Normal 3.5-5.1 [facility] Comment on above: Performed By: #### C MP ####[facility] Xhojkngcfi44[address] [place], [place] [address]Dr. Flaco Lawrence Protein [Mass/Vol] 7.2 g/dL Normal 6.4-8.2 [facility] Comment on above: Performed By: #### C MP ####[facility] Xvvlcrmqws0[address] [place], [place] [address]Dr. Flaco Lawrence Sodium [Moles/Vol] 138 mmol/L Normal 136-145 [facility] Comment on above: Performed By: #### C MP ####[facility] Zzplijoqzq126[address] [place], [place] [address]Dr. Flaco Lawrence Urea nitrogen [Mass/Vol] 29.0 mg/dL Critically high 7.0-18.0 [facility] Comment on above: Performed By: #### C MP ####[facility] Bpdgbezkkl6[address] [place], [place] [address]Dr. Flaco Lawrence Urea nitrogen/Creatinine [Mass ratio] 14.9 mg/mg Normal [facility] Comment on above: Performed By: #### C MP ####[facility] Ytgaqdybmg[address] [place], [place] [address]Dr. Flaco Lawrence URINE MICROSCOPIC ONLYon AMORPHOUS CRYSTALS MODERATE Normal The [facility] Comment on above: Performed By: #### Riccardo SENA UMICRO ####[facility] Thnpwvhghk36[address] [place], [place] [address]Dr. Purviedith Branden BACTERIA MODERATE Abnormal NONE SEEN [facility] Comment on above: Performed By: #### Riccardo SENA UMICRO ####[facility] Pkbjtkozof4[address] [place], [place] [address]Dr. Flaco Lawrence Bacteria identified Cx Nom (U) INDICATED Normal [facility] Comment on above: Performed By: #### Riccardo SENA UMICRO ####[facility] Gmknbykbbe3234[address] [place], [place] [address]Dr. Flaco Lawrence CAST SEEN Abnormal NONE SEEN [facility] Comment on above: Performed By: #### Riccardo SENA UMICRO ####[facility] Nbtnymdeuj68[address] [place], [place] [address]Dr. Flaco Lawrence COARSE GRANULAR CAST RARE Normal [facility] Comment on above: Performed By: #### Riccardo SENA UMICRO ####[facility] Mqnnbivyed9[address] [place], [place] [address]Dr. Flaco Lawrence Crystals LM Nom (Urine sed) SEEN Abnormal NONE SEEN [facility] Comment on above: Performed By: #### Riccardo SENA UMICRO ####[facility] Gchflooyqb3446[address] [place], [place] [address]Dr. Flaco Lawrence Epithelial cells LM Ql (Urine sed) RARE Normal NONE SEEN /RARE [facility] Comment on above: Performed By: #### Riccardo SENA UMICRO ####[facility] Cyfkbokyrc1035[address] [place], [place] [address]Dr. Flaco Lawrence MUCOUS TRACE Abnormal NONE SEEN [facility] Comment on above: Performed By: #### Riccardo SENA UMICRO ####[facility] Canwmedioo[address] [place] [address]Dr. Flaco Lawrence RBC 0-2 Normal 0-2 [facility] Comment on above: Performed By: #### EVETTE RAMON ####[facility] Mtqverouhy9704 [place] [address]Dr. Flaco Lawrence WBC 0-2 Abnormal NONE SEEN [facility] Comment on above: Performed By: #### EVETTE RAMON ####[facility] Hgcjxxxrol4[address] [place], [place] [address]Dr. Flaco Lawrence BNPon 07-28-2022 Natriuretic peptide B (Bld) [Mass/Vol] 258.0 pg/mL Normal <=900.0 [facility] Comment on above: Performed By: #### C MP, BNP, HSTROPN ####[facility] Shanooazeo[address] [place], [place] [address]Dr. Flaco Lawrence CBC W MANUAL DIFFon 07-28-20 22 ATYPICAL LYMPH # 0.21 103/ul Normal [facility] Comment on above: Performed By: #### Corina GUTHRIE ####[facility] Rbblyyebjm[address] [place], [place] [address]Dr. Flaco Lawrence ATYPICAL LYMPH % 1 % Normal [facility] Comment on above: Performed By: #### Corina GUTHRIE ####[facility] Tkffimsgat8[address] [place], [place] [address]Dr. Flaco Lawrence BAND # 0.0 103/ul Normal 0.0-0.3 [facility] Comment on above: Performed By: #### C CLEVELAND ####[facility] Rpmdlftqdr[address] [place], [place] [address]Dr. Flaco Lawrence BAND % 0 % Normal 0-5 [facility] Comment on above: Performed By: #### C CLEVELAND ####[facility] Otyiztgvqe98[address] [place], [place] [address]Dr. Flaoc Lawrence BASOM # 0.00 103/ul Normal 0.00-0.10 [facility] Comment on above: Performed By: #### C CLEVELAND ####[facility] F[address]vwrkqwy[address] [place], [place] [address]Dr. Flaco Lawrence BASOM % 0.0 % Critically low 0.2-2.0 [facility] Comment on above: Performed By: #### C BCMAN ####[facility] F[address]qejfoxc[address] [place] [id number]. Flaco Lawrence BLAST # Normal [facility] Comment on above: Performed By: #### C BCMAN ####[facility] Vulffiaozi[address] [place] [address]Dr. Flaco Lawrence BLAST % Normal [facility] Comment on above: Performed By: #### C BCGAYATHRI ####[facility] Umtpeppmbx84[address] [place] [address]Dr. Flaco Lawrence CORRECTED WBC Normal 4.0-11.0 [facility] Comment on above: Performed By: #### C BCGAYATHRI ####[facility] Roywliodxd[address] [place], [place] [address]Dr. Flaco Lawrence EOS # 0.00 103/ul Normal 0.00-0.70 [facility] Comment on above: Performed By: #### C BCGAYATHRI ####[facility] Hkxaelwtwj26[address] [place] [address]Dr. Flaco Lawrence EOS% 0.0 % Critically low 0.9-7.0 [facility] Comment on above: Performed By: #### C BCGAYATHRI ####[facility] Qftlgccimz9805 [place] [address]Dr. Flaco Lawrence HCT 48.8 % Normal 42.0-54.0 [facility] Comment on above: Performed By: #### C BCGAYATHRI ####[facility] Cczpfuzbgn[address] [place], [place] [address]Dr. Flaco Lawrence HGB 16.2 g/dl Normal 14.0-18.0 [facility] Comment on above: Performed By: #### C BCGAYATHRI ####[facility] Ldvnjwmfkm[address] [place] [address]Dr. Flaco Lawrence LYMPHM # 0.62 103/ul Critically low 1.20-3.80 [facility] Comment on above: Performed By: #### C BCGAYATHRI ####[facility] [address]ce[address]xm[address] [place], [place] [address]Ug. Flaco Lawrence LYMPHM% 3.0 % Critically low 20.5-60.0 [facility] Comment on above: Performed By: #### C CLEVELAND ####[facility] Viczuiqaqa9215 [place], [place] [address]Qz. Flaco Lawrence MCH 29.5 pg Normal 25.9-34.0 [facility] Comment on above: Performed By: #### C CLEVELAND ####[facility] Ilqmuopymt3020 [place] [phone]. Flaco Lawrence MCHC 33.2 g/dl Normal 29.9-35.2 [facility] Comment on above: Performed By: #### C CLEVELAND ####[facility] Ihrrtqiyfk55[address] [place] [phone]. Flaco Lawrence MCV 88.7 fL Normal 80.0-94.0 [facility] Comment on above: Performed By: #### C CLEVELAND ####[facility] Nutyjfrpkb8224 [place] [phone]. Flaco Lawrence METAMYELOCYTE # Normal [facility] Comment on above: Performed By: #### C CLEVELAND ####[facility] Dgphblwxyz3435 [place] [phone]. Flaco Lawrence METAMYELOCYTE % Normal [facility] Comment on above: Performed By: #### C CLEVELAND ####[facility] Ccpfmwglyx3109 [place] [phone]. Flaco Lawrence MONOM# 2.28 103/ul Critically high 0.30-0.80 [facility] Comment on above: Performed By: #### C CLEVELAND ####[facility] Dbdxgopfsa1239 [place] [phone]. Flaco Lawrence MONOM% 11.0 % Normal 1.7-12.0 [facility] Comment on above: Performed By: #### C CLEVELAND ####[facility] Ufkpmfaizd7315 [place] [phone]. Flaco Lawrence MPV 10.5 fL Normal 9.5-13.5 [facility] Comment on above: Performed By: #### C CLEVELAND ####[facility] Awtwgmlogt0492 [place], [place] [address]Gh. Flaco Lawrence MYELOCYTE # Normal [facility] Comment on above: Performed By: #### C CLEVELAND ####[facility] Knjbvvpani0589 [place], [place] [address]Ja. Flaco Lawrence MYELOCYTE % Normal [facility] Comment on above: Performed By: #### C CLEVELAND ####[facility] Uhqsqdcfly5[address] [place] [phone]. Flaco Lawrence NRBC Normal [facility] Comment on above: Performed By: #### C CLEVELAND ####[facility] Vlwchivcml7129 [place] [phone]. Flaco Lawrence PLT 317 103/ul Normal 150-450 [facility] Comment on above: Performed By: #### C CLEVELAND ####[facility] Sggaokokgc3316 [place] [phone]. Flaco Lawrence RBC 5.50 106/ul Normal 4.70-6.10 [facility] Comment on above: Performed By: #### C CLEVELAND ####[facility] Rrqjbzgkuq1878 [place] [phone]. Flaco Lawrence RDW 13.6 % Normal 11.0-15.0 [facility] Comment on above: Performed By: #### C CLEVELAND ####[facility] Wylxkewwqb3327 [place] [phone]. Flaco Lawrence SEG # 17.59 103/ul Critically high 1.40-6.50 [facility] Comment on above: Performed By: #### C CLEVELAND ####[facility] Tqchpmvnbr1843 [place] [phone]. Flaco Lawrence SEG % 85.0 % Critically high 43.0-75.0 [facility] Comment on above: Performed By: #### C CLEVELAND ####[facility] Lqxmalzkes8823 [place] [phone]. Flaco Lawrence WBC 20.7 103/ul Critically high 4.0-11.0 [facility] Comment on above: Performed By: #### C BCMAN ####[facility] Towwcpxyat4898 [place] [phone]. Flaco Lawrence CULTURE BLOODon 07-28-2022 Microscopic examination of blood, culture Culture Observations: NO GROWTH AT 5 DAYS. Normal [facility] Comment on above: Performed By: #### B LDCX2 ####[facility] Nvgdivrtwv3210 [place] [phone]. Flaco Lawrence Microscopic examination of blood, culture Culture Observations: NO GROWTH AT 5 DAYS. Normal [facility] Comment on above: Performed By: #### B LDCX1 ####[facility] Twswzrxmmo4146 [place] [address]Dr. Flaco Lawrence Covid-19 PCR (CVDTB)on 06-30 SARS-CoV-2 (COVID-19) RNA MARCO ANTONIO+probe Ql (Unsp spec) Not detected Normal NOT DETECTED [facility] Comment on above: Result Comment: When [...] for this test is supported by the [place] of Health and Human Service's declaration that [...] be used). Performed By: #### C VDTBH ####[facility] Dwuafqlchf6895 [place] [phone]. Flaco Lawrence INFLUENZA A AND B AGon 07-28 INFLUENZA A AG Negative Normal NEGATIVE SEE COMMENT [facility] Comment on above: Performed By: #### I NFLUAB ####[facility] Olwrpynepe6707 [place] [address]Dr. Flaco Lawrence INFLUENZA B AG Negative Normal NEGATIVE SEE COMMENT [facility] Comment on above: Performed By: #### I NFLUAB ####[facility] Jlxipoglmc2103 [place] [address]Dr. Flaco Lawrence INTERNAL CONTROLS Within Normal Limits Normal Wi thin Normal Limits [facility] Comment on above: Performed By: #### I NFLUAB ####[facility] Rxvzkdynxl0852 [place] [address]Dr. Flaco Lawrence LACTATE/LACTIC ACIDon 2021 Lactate [Moles/Vol] 2.6 mmol/L Critically high 0.4-1.9 [facility] Comment on above: Performed By: #### L ACT ####[facility] Duvhzfouje[address] [place], [place] [address]Dr. Flaco Lawrence PROF 14(COMP METB)on 022 Albumin [Mass/Vol] 3.7 g/dL Normal 3.4-5.0 [facility] Comment on above: Performed By: #### C MP, BNP, HSTROPN ####[facility] Zzgyrhwpsb[address] [place], [place] [address]Dr. Flaco Lawrence Albumin/Globulin [Mass ratio] 0.8 {ratio} Normal [facility] Comment on above: Performed By: #### C MP, BNP, HSTROPN ####[facility] Jqvichbvgx1523 [place] [address]Dr. Flaco Lawrence ALP [Catalytic activity/Vol] 95 U/L Normal 46-116 [facility] Comment on above: Performed By: #### C MP, BNP, HSTROPN ####[facility] Aukdktzvcd4445 [place] [address]Dr. Flaco Lawrence ALT [Catalytic activity/Vol] 38 U/L Normal 16-63 [facility] Comment on above: Performed By: #### C MP, BNP, HSTROPN ####[facility] Akedsnyoqr5356 [place] [address]Dr. Flaco Lawrence Anion gap [Moles/Vol] 16.8 mmol/L Normal [facility] Comment on above: Performed By: #### C MP, BNP, HSTROPN ####[facility] Hawsowspsw7039 [place] [address]Dr. Flaco Lawrence AST [Catalytic activity/Vol] 44 U/L Critically high 15-37 [facility] Comment on above: Performed By: #### C MP, BNP, HSTROPN ####[facility] Stgelscmnj5160 [place] [address]Dr. Flaco Lawrence Bilirubin [Mass/Vol] 2.7 mg/dL Critically high 0.2-1.0 [facility] Comment on above: Performed By: #### C MP, BNP, HSTROPN ####[facility] Fxsbetjhnt[address] [place], [place] [address]Dr. Flaco Lawrence Calcium [Mass/Vol] 9.8 mg/dL Normal 8.5-10.1 [facility] Comment on above: Performed By: #### C MP, BNP, HSTROPN ####[facility] Jgiwpvmdcu24[address] [place], [place] [address]Dr. Flaco Lawrence Chloride [Moles/Vol] 102 mmol/L Normal 98-107 [facility] Comment on above: Performed By: #### C MP, BNP, HSTROPN ####[facility] Uyqnanidmq32[address] [place], [place] [address]Dr. Flaco Lawrence CO2 [Moles/Vol] 23.0 mmol/L Normal 21.0-32.0 [facility] Comment on above: Performed By: #### C MP, BNP, HSTROPN ####[facility] Hxwbbrlpfk05[address] [place], [place] [address]Dr. Flaco Lawrence Creatinine [Mass/Vol] 2.22 mg/dL Critically high 0.70-1.30 [facility] Comment on above: Performed By: #### C MP, BNP, HSTROPN ####[facility] Ahmdcakmwv8[address] [place], [place] [address]Dr. Flaco Lawrence EGFR-AF ANGOLAN 36 mL/min/1.73m2 Critically low >=60 [facility] Comment on above: Performed By: #### C MP, BNP, HSTROPN ####[facility] Sclxyzvzwh8057 [place] [address]Dr. Flaco Lawrence EGFR-NON AF ANGOLAN 29 mL/min/1.73m2 Critically low >=60 [facility] Comment on above: Performed By: #### C MP, BNP, HSTROPN ####[facility] Mepiddrala[address] [place], [place] [address]Dr. Flaco Lawrence Globulin (S) [Mass/Vol] 4.7 g/dL Normal [facility] Comment on above: Performed By: #### C MP, BNP, HSTROPN ####[facility] Pzcuthlwhv4[address] [place], [place] [address]Dr. Flaco Lawrence Glucose [Mass/Vol] 145 mg/dL Critically high 74-106 [facility] Comment on above: Performed By: #### C MP, BNP, HSTROPN ####[facility] Arzxupbuzk[address] [place], [place] [address]Dr. Flaco Lawrence Potassium [Moles/Vol] 3.8 mmol/L Normal 3.5-5.1 [facility] Comment on above: Performed By: #### C MP, BNP, HSTROPN ####[facility] Zmcequdutp12[address] [place], [place] [address]Dr. Flaco Lawrence Protein [Mass/Vol] 8.4 g/dL Critically high 6.4-8.2 [facility] Comment on above: Performed By: #### C MP, BNP, HSTROPN ####[facility] Z[address]whtfzeh[address] [place], [place] [address]Dr. Flaco Lawrence Sodium [Moles/Vol] 138 mmol/L Normal 136-145 [facility] Comment on above: Performed By: #### C MP, BNP, HSTROPN ####[facility] Eduhyqkbzt16[address] [place], [place] [address]Dr. Flaco Lawrence Urea nitrogen [Mass/Vol] 29.0 mg/dL Critically high 7.0-18.0 [facility] Comment on above: Performed By: #### C MP, BNP, HSTROPN ####[facility] Pcfhnmjwvy8714 [place], [place] [address]Ww. Flaco Lawrence Urea nitrogen/Creatinine [Mass ratio] 13.1 mg/mg Normal [facility] Comment on above: Performed By: #### C MP, BNP, HSTROPN ####[facility] Vlqvsihgqc4428 [place], [place] [address]Wa. Flaco Lawrence TROPONIN, HIGH SENSITIVITYon 07-28-2022 HSTROP 13.6 pg/mL Normal 4.0-76.1 [facility] Comment on above: Result Comment: CUT- OFF POINTS HAVE BEEN ESTABLISHED BASED ON THE FOURTH UNIVERSAL DEFINITIONS OF MYOCARDIALINFARCTION. THE UPPER REFERENCE LIMIT (URL) OF TROPONIN, DEFINED THE 99TH PERCENTILE OFcTnI DISTRIBUTION IN A REFERENCE POPULATION, HAS BEEN CONFIRMED THE DECISION THRESHOLDFOR [place] DIAGNOSIS. Performed By: #### C MP, BNP, HSTROPN ####[facility] Ol[address]fsrzca0430 [place], [place] [address]Mz. Flaco Lawrence XR CHEST 1 Von 07-28-2022 XR CHEST 1 V Normal [facility] Covid-19 PCR (CVDTBH)on 06-29 SARS-CoV-2 (COVID-19) RNA MARCO ANTONIO+probe Ql (Unsp spec) Not detected Normal NOT DETECTED [facility] Comment on above: Result Comment: This test is not yet approved or cleared by the [place] FDA. When there are no FDA-approved or cleared tests available, and other criteria are met, FDA can make tests available under an emergency access mechanism called an Emergency Use Authorization (EUA). The EUA for this test is supported by the [place] of Health and Human Service's (HHS's) declaration [...] with SARS-CoV-2. Performed By: #### C VDTB ####[facility] Gemmkrzone[address] [place] [address]Dr. Flaco Lawrence PROF CHEM 8 (BAS METB)on Anion gap [Moles/Vol] 11.2 mmol/L Normal [facility] Comment on above: Performed By: #### B MP ####[facility] Kljqainskc4[address] [place], [place] [address]Dr. Flaco Lawrence Calcium [Mass/Vol] 8.7 mg/dL Normal 8.5-10.1 [facility] Comment on above: Performed By: #### B MP ####[facility] Mqdlpbdpln[address] [place], [place] [address]Dr. Flaco Lawrence Chloride [Moles/Vol] 108 mmol/L Critically high 98-107 [facility] Comment on above: Performed By: #### B MP ####[facility] Pqaffnyyvf40[address] [place], [place] [address]Dr. Flaco Lawrence CO2 [Moles/Vol] 26.9 mmol/L Normal 21.0-32.0 [facility] Comment on above: Performed By: #### B MP ####[facility] Yundpwzjzw0[address] [place], [place] [address]Dr. Flaco Lawrence Creatinine [Mass/Vol] 1.77 mg/dL Critically high 0.70-1.30 [facility] Comment on above: Performed By: #### B MP ####[facility] Fsnsulhtjq7[address] [place], [place] [address]Dr. Flaco Lawrence EGFR-AF ANGOLAN 46 mL/min/1.73m2 Critically low >=60 [facility] Comment on above: Performed By: #### B MP ####[facility] M[address]azudiybg[address] [place], [place] [address]Dr. Flaco Lawrence EGFR-NON AF ANGOLAN 38 mL/min/1.73m2 Critically low >=60 [facility] Comment on above: Performed By: #### B MP ####[facility] Zqqgkfieqh4059 [place], [place] [address]If. Flaco Lawrence Glucose [Mass/Vol] 89 mg/dL Normal 74-106 [facility] Comment on above: Performed By: #### B MP ####[facility] Zvsyapbxvu3735 [place], [place] [address]Iy. Flaco Lawrence Potassium [Moles/Vol] 4.1 mmol/L Normal 3.5-5.1 [facility] Comment on above: Performed By: #### B MP ####[facility] [id number] [place], [place] [address]Gm. Flaco Lawrence Sodium [Moles/Vol] 142 mmol/L Normal 136-145 [facility] Comment on above: Performed By: #### B MP ####[facility] [id number] [place], [place] [address]Oo. Flaco Lawrence Urea nitrogen [Mass/Vol] 15.0 mg/dL Normal 7.0-18.0 [facility] Comment on above: Performed By: #### B MP ####[facility] [address] [place], [place] [address]Fu. Flaco Lawrence Urea nitrogen/Creatinine [Mass ratio] 8.5 mg/mg Normal [facility] Comment on above: Performed By: #### B MP ####[facility] [address] [place], [place] [address]Ld. Flaco Lawrence XR FOOT RT MIN 3 VIEWSon XR FOOT RT MIN 3 VIEWS Normal [facility] Vital Signs Date Time Vital Sign Value Performing Clinician Bill woodard 08-05-2024 15:050 Body height 177.8 cm Joe Jang PA-C Work Phone: [facility] 08-05-2024 15:050 Body mass index (BMI) [Ratio] 20.81 kg/m2 Joe Jang PA-C Work Phone: [facility] 08-05-2024 15:050 Body weight 65.77 kg Joe Jang PA-C Work Phone: [facility] 08-05-2024 15:21-0500 Diastolic blood pressure 107 mm[Hg] Joe Jang PA-C Work Phone: [facility] 08-05-2024 15:21-0500 Heart rate 66 /min Joe Jang PA-C Work Phone: [facility] 08-05-2024 15:21-0500 Systolic blood pressure 153 mm[Hg] Joe Jang PA-C Work Phone: [facility] 09-18-2023 13:33-0500 Body height 170.2 cm Mel Juarez MD Work Phone: [facility] 09-18-2023 13:33-0500 Body mass index (BMI) [Ratio] 23.49 kg/m2 Mel Juarez MD Work Phone: [facility] 09-18-2023 13:33-0500 Body weight 68.04 kg Mel Juarez MD Work Phone: [facility] 09-18-2023 13:33-0500 Diastolic blood pressure 79 mm[Hg] Mel Juarez MD Work Phone: [facility] 09-18-2023 13:33-0500 Heart rate 61 /min Mel Juarez MD Work Phone: [facility] 09-18-2023 13:33-0500 Systolic blood pressure 121 mm[Hg] Mel Juarez MD Work Phone: [facility] 05-12-2023 13:51-0400 Blood Pressure Location Baljit DOSHI [facility] 05-12-2023 13:51-0400 Diastolic blood pressure 74 mm[Hg] Baljit DOSHI [facility] 05-12-2023 13:51-0400 Heart rate 70 /min Baljit DOSHI [facility] 05-12-2023 13:51-0400 Respiratory rate 16 /min Baljit DOSHI [facility] 05-12-2023 13:51-0400 Systolic blood pressure 120 mm[Hg] Baljit GLENDA [facility] Encounters Encounter Date Encounter Type Care Provider Facility Start: 09-05-2024 Evaluation and manag ement of inpatient RAMESH LAWRENCE [facility] Start: 09-05-2024 Evaluation and manag ement of inpatient NORBERTO RAY [facility] Start: 09-03-2024 Evaluation and manag ement of inpatient MAXX HALE [facility] Start: 09-03-2024 End: 09-05-2024 Evaluation and management of inpatient ODELL RODRÍGUEZ [facility] Start: 08-27-2024 End: 08-28-2024 Refill Joe Jang PA-C Work Phone: [facility] Comment on above: Mild dementia with a gitation, unspecified dementia type (CMS-HCC) Start: 08-19-2024 ambulatory [facility] [place] Start: 08-05-2024 End: 08-05-2024 Office outpatient visit 25 minutes Joe Jang PA-C Work Phone: [facility] Comment on above: Parkinsonism, unspec ified Parkinsonism type (CMS-HCC) (Primary Dx); Mild dementia with agitation, unspecified dementia type (CMS-HCC) Start: 08-05-2024 End: 08-05-2024 ambulatory LIBRADO Ash [facility] Start: 08-05-2024 ambulatory [facility] Start: 07-28-2024 ambulatory [facility] Start: 07-20-2024 ambulatory [facility] Start: 06-17-2024 ambulatory [facility] Start: 06-01-2024 End: 06-01-2024 ambulatory [facility] Start: 04-28-2024 ambulatory [facility] [place] Start: 03-23-2024 ambulatory [facility] Start: 03-18-2024 ambulatory SPENCER WALSHUBB [facility] Start: 02-12-2024 End: 02-12-2024 ambulatory [facility] Start: 12-08-2023 End: 12-08-2023 ambulatory [facility] Start: 09-18-2023 End: 09-18-2023 Office outpatient visit 25 minutes Mel Juarez MD Work Phone: [facility] Comment on above: Parkinsonism, unspec ified Parkinsonism type (Primary Dx); Tardive dyskinesia; Mild dementia with agitation, unspecified dementia type (CMS-HCC); Gait instability; Urinary retention; Spondylosis of cervical spine; Sundowning; Chronic bilateral low back pain, unspecified whether sciatica present; Insomnia due to medical condition Start: 09-18-2023 End: 09-18-2023 ambulatory [facility] Start: 09-14-2023 End: 09-14-2023 ambulatory ROBIN [facility] Start: 09-10-2023 End: 09-10-2023 ambulatory [facility] Start: 05-27-2023 End: 05-28-2023 ambulatory Baljit DOSHI Facility:CD:[id number] Start: 05-12-2023 End: 05-13-2023 ambulatory [...] Start: 09-25-2022 Encounter for preprocedural laboratory examination [facility] Start: 09-25-2022 End: 09-25-[address] FABIAN KENNEDY Facility:H1 Start: 09-22-2022 End: 09-23-2022 ambulatory [facility] Solange [facility] Facility:H1 Start: 09-22-2022 End: 09-23-2022 Encounter for preprocedural laboratory examination [facility] Facility:H1 Start: 09-15-2022 Encounter for preprocedural cardiovascular examination [facility] Start: 09-11-2022 End: 09-12-2022 ambulatory [facility] Solange [facility] Facility:H1 Start: 08-15-2022 End: 08-15-2022 ambulatory JOVANI UMANZOR . Facility:H1 Start: 07-30-2022 End: 08-02-2022 Evaluation and management of inpatient DR LIBRADO HELM . Facility:H1 Start: 07-24-2022 End: 07-25-2022 ambulatory [facility] Solange [facility] Facility:H1 Start: 07-17-2022 Encounter for preprocedural cardiovascular examination [facility] Solange [facility] Start: 07-17-2022 Encounter for preprocedural laboratory examination [facility] Solange [facility] Start: 07-15-2022 End: 07-16-2022 ambulatory [facility] Solange [facility] Facility:H1 Start: 07-15-2022 End: 07-16-2022 Encounter for preprocedural cardiovascular examination [facility] Solange [facility] Facility:H1 Start: 06-18-2022 End: 06-19-[address] [...] 08-05-2025 Adult BMI Screening Adult BMI Screening [facility] Start: 08-05-2025 Tobacco Screening Tobacco Screening [facility] Start: 02-03-2025 End: 02-03-2025 Patient encounter procedure 02/03/2025 2:00 PM EDT Office Visit [facility] [address] [facility] [[email or web address] [place] [address] Joe Jang, PA-C [address] [place] [address] [facility] Start: 09-18-2024 Adult BMI Screening Adult BMI Screening [facility] Start: 09-18-2024 Depression Screening Depression Screening [facility] Start: 09-18-2024 Tobacco Screening Tobacco Screening [facility] Start: 05-29-2024 COVID-19 Vaccine ( season) COVID-19 Vaccine () [facility] Start: 05-29-2024 Influenza vaccination Influenza Vaccine [facility] Start: 02-12-2024 End: 02-12-2024 Patient encounter procedure 02/12/2024 2:00 PM EDT Office Visit [facility] [address] [place] [address] Mel Juarez MD [address] [place] [address], [address] [address] [facility]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
== END 2024-09-08 11:53 | disposition home or self-care (01) ==
LOC: RAD 11:52
PROVIDERS: PCP Family Medicine; Visit Provider Internal Medicine Cardiovascular Disease
DX: I48.91 Unspecified atrial fibrillation (principal)
CPT/HCPCS: 71046

== ENCOUNTER 2024-12-23 15:03 | Outpatient (OUT) | payer MEDICARE, SELFPAY ==
--- OUTSIDE RECORDS SUMMARY | 2024-12-23 11:23 | XMS_ITS | CCD ---
Author Organization [facility] Care Team Providers Care Train Conductor Name Role Phone DR FABIAN KENNEDY V [...] [place] Consulting Unavailable KIMBERLI RAIN Admitting Unavailable KIMBERLI RAIN Attending Unavailable KIMBERLI RAIN Consulting Unavailable ALICJA ., DR PAVON Primary Care Unavailable HOY ., DR PAVON Admitting Unavailable HOY ., DR PAVON Consulting Unavailable HOY ., DR PAVON Attending Unavailable AHDOOT, CHINMAY Consulting Unavailable JAMES, VINAYA Consulting Unavailable YEH, MICHELINE Consulting Unavailable FALVO, MAYUR Consulting Unavailable ROCK, BRIEN Consulting Unavailable READER, LIBRADO Consulting Unavailable SISTER, OPAL Consulting Unavailable YOBANY, SABEENA REGALADO Consulting Unavailable QUEENIE ., DEBBIE Consulting [...] Unavailable MOUKAFESTUSEL, DR ASHFORD Consulting Unavailable NOÉ Bobo, JOVANI Consulting Unavailable GRACIE POWERS Consulting Unavailable RHYS PARRA Consulting Unavailable Librado Helm Primary Care Physician [phone] Baljit DOSHI Attending Unavailable Baljit DOSHI Attending Unavailable ANN, MEL Attending Unavailable SHEREE HELMLAS M Referring Unavailable HOY, LIBRADO M Primary Care Unavailable HOY, LIBRADO M Referring Unavailable HOY, LIBRADO M Primary Care Unavailable JOE JANG Attending Unavailable ANN, MEL Attending Unavailable HOY, LIBRADO M Referring Unavailable HOY, LIBRADO M Primary Care Unavailable ODELL RODRÍGUEZ Referring Unavailable RAMESH LAWRENCE Admitting Unavailable RAMESH LAWRENCE Attending Unavailable JANE, BRUCEEED Attending Unavailable KIKO, MISSAEL Referring Unavailable REJI, SPENCER Referring Unavailable KIKO, MISSAEL Referring Unavailable KIKO, MISSAEL Referring Unavailable REJI, SPENCER Referring Unavailable KIKO, MISSAEL Referring Unavailable KIKO, MISSAEL Attending Unavailable NELLY, ZEV Attending Unavailable NELLY, ZEV Attending Unavailable REJI, SPENCER Referring Unavailable NELLY, CHASEAR Attending Unavailable REJI, SPENCER Referring Unavailable REJI, SPENCER Referring Unavailable REJI, SPENCER Referring Unavailable KIKO, MISSAEL Referring Unavailable REJI, SPENCER Referring Unavailable LAWRENCE, RAMESH CHUL Referring Unavailable RAY, NORBERTO Referring Unavailable ROSA, MAXX Referring Unavailable JANE, NASHEED Referring Unavailable KIKO, MISSAEL Referring Unavailable KIKO, MISSAEL Attending Unavailable LAWRENCE, RAMESH CHUL Referring Unavailable Librado Helm MD Primary Care Provider [phone] Librado Helm MD Primary Care Provider [phone] Allergies Allergy Classification Reported Allergen(s) Allergy Type Date of Onset Reaction(s) Facility (3 sources) Penicillins; Translations: [PENICILLINS] Drug allergy (disorder) 4 [facility] (2 sources) Penicillin; Translations: [penicillin] Drug Allergy Weal (disorder) [facility] [place] (7 sources) Penicillins Propensity to adverse reactions to drug [facility] Medications Current Medications Medication Drug Class(es) Dates Sig (Normalized) Sig (Original) amLODIPine 10 mg oral tablet (7 sources) Dihydropyridine Calcium Channel Tahmina Start: 07-21-2023 End: 06-27-2025 amLODIPine (NORVASC) 10 mg tablet Take 1 tablet (10 mg total) by mouth. 06/27/2024 06/27/2025 Active aspirin 81 mg chewable tablet (6 sources) Platelet Aggregation Inhibitor, Nonsteroidal Anti-inflammatory Drug [...] 04/22/2023 Active baclofen 10 mg oral tablet (9 sources) gamma-Aminobutyric Acid-ergic Agonist Start: 09-18-2023 End: 02-12-2024 take 1 tablet by mouth once daily as needed for muscle spasms baclofen (LIORESAL) 10 mg tablet Indications: Spondylosis of cervical spine , Chronic bilateral low back pain, unspecified whether sciatica present , Spondylosis of lumbar region without myelopathy or radiculopathy Take 1 tablet (10 mg total) by mouth nightly as needed for muscle spasms. 30 tablet 3 02/12/2024 Active carbidopa 25 mg / levodopa 100 mg oral tablet (20 sources) Aromatic Amino Acid Decarboxylation Inhibitor, Aromatic Amino Acid Start: 08-26-2023 End: 08-05-2024 take 1 tablet by mouth three times daily before mealtime carbidopa-levodopa (SINEMET CR) 25-100 mg per CR tablet Indications: Parkinsonism, unspecified Parkinsonism type (CMS-HCC) Take 1 tablet by mouth 3 (three) times a day. Please take at 0600/1200/1800, 30-45 mins before meals 270 tablet 08/05/2024 Active Start: 08-24-2023 End: 08-05-2024 take 1 tablet by mouth three times daily before mealtime carbidopa-levodopa (SINEMET) 25-100 mg per tablet Indications: Parkinsonism, unspecified Parkinsonism type (CMS-HCC) Take 1 tablet by mouth 3 (three) times a day. Please take at 0600/1200/1800 30-45 mins before meals 270 tablet 1 08/05/2024 Active Start: 04-22-2023 carbidopa-levo dopa 25 mg-100 mg ER Tab Refill(s) 0 Start Date: 04/22/23 Status: Ordered donepezil hydrochloride 10 mg oral tablet (10 sources) Start: 04-22-2023 End: 08-05-2024 take 1 tablet by mouth in the morning donepeziL (ARICEPT) 10 mg tablet Indications: Parkinsonism, unspecified Parkinsonism type (CMS-HCC) Take 1 tablet (10 mg total) by mouth in the morning. 30 tablet 5 08/05/2024 Active hydrALAZINE hydrochloride 10 mg oral tablet (6 sources) Arteriolar Vasodilator Start: 08-13-2023 End: 08-12-2024 hydrALAZINE (APRESOLINE) 10 mg tablet Take 1 tablet (10 mg total) by mouth. 08/13/2023 08/12/2024 Active memantine hydrochloride 5 mg oral tablet (3 sources) C-jjffxo-G-aspart ate Receptor Antagonist Start: 08-05-2024 End: 08-28-2024 memantine (NAMENDA) 5 mg tablet Indications: Mild dementia with agitation, unspecified dementia type ([facility]) TAKE 1 TABLET (5 MG) DAILY FOR 1 WEEK, THEN INCREASE TO 1 TABLET (5 MG) TWICE DAILY 180 tablet 1 08/28/2024 Active metoprolol tartrate 25 mg oral tablet (7 sources) beta-Adrenergic Tahmina take 1 tablet by mouth in the morning, then take 1 tablet by mouth at bedtime metoprolol tartrate (LOPRESSOR) 25 mg tablet Take 1 tablet (25 mg total) by mouth in the morning and 1 tablet (25 mg total) before bedtime. Active Completed/Discontinued Medications Medication Drug Class(es) Dates Sig (Normalized) Sig (Original) potassium chloride 20 meq extended release oral tablet (8 sources) Start: 04-22-2023 take 1 tablet by [...] with calculus] 05-30-2020 Episodic Cancer of prostate (10 sources) Adenocarcinoma of prostate; Translations: [Malignant neoplasm of prostate] Onset: 07-03-2020 05-28-2020 Chronic Cancer of prostate (1 source) Personal history of malignant neoplasm of prostate; Translations: [PERSONAL HX MALIG NEOPLASM PROSTATE] Onset: 02-10-2023 Episodic Cardiac dysrhythmias (4 sources) Sick sinus syndrome; Translations: [Unspecified atrial fibrillation] Onset: 09-03-2024 Chronic Chronic kidney disease (2 sources) Chronic kidney disease, stage 2 (mild); Translations: [Chronic kidney disease] Onset: 02-10-2023 04-22-2023 Chronic Chronic obstructive pulmonary disease and bronchiectasis (2 sources) Chronic obstructive pulmonary disease with (acute) exacerbation; Translations: [Chronic obstructive lung disease] Onset: 09-01-2022 04-22-2023 Chronic Chronic ulcer of skin (12 sources) Pressure ulcer of right heel, stage 1; Translations: [Chronic ulcer of foot] Onset: 12-17-2022 Chronic Conduction disorders (2 sources) Encounter for adjustment and management of automatic implantable cardiac defibrillator; Translations: [Encounter for adjustment and management of automatic implantable cardiac defibrillator] Onset: 10-25-2024 Chronic Deficiency and other anemia (1 source) Iron deficiency anemia, unspecified; Translations: [IRON DEFICIENCY ANEMIA UNSPECIFIED] Onset: 02-10-2023 Episodic Delirium, dementia, and amnestic and other cognitive disorders (20 sources) Dementia in other diseases classified elsewhere [...] 02-10-2023 Chronic Other aftercare (1 source) Other intermediate project manager (current) drug therapy; Translations: [OTH CUPBOARD BUILDER 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 THERAPY] Onset: 02-10-2023 Episodic Other aftercare (1 source) exterminator helper (current) use of aspirin; Translations: [PRISON CURRENT USE OF ASPIRIN] Onset: 02-10-2023 Episodic [...] condition] Onset: 02-12-2024 Chronic Residual codes; unclassified (2 sources) Insomnia co-occurrent and due to medical condition; [...] Spondylosis; intervertebral disc disorders; other back problems (20 sources) Cervical disc disorder, unspecified, unspecified cervical region; Translations: [Cervical spondylosis] Onset: 10-08-2022 04-22-2023 Chronic Syncope (2 sources) Syncope and collapse; Translations: [Syncope and collapse] Onset: 09-03-2024 Episodic Unclassified (11 sources) Parkinsonism; Translations: [Parkinsonism, unspecified Parkinsonism type] [...] [Low back pain, unspecified] Onset: 02-12-2024 Unclassified (2 sources) Wound Check; Translations: [Wound Check] Onset: 09-16-2024 Unclassified (1 source) Other pericardial effusion (noninflammatory); Translations: [Other pericardial effusion (noninflammatory)] Onset: 09-03-2024 Past or Other Problems Problem Classification Problem Date Documented Da te Episodic/Chronic Cardiac dysrhythmias (4 sources) Bradycardia, unspecified; Translations: [Bradycardia] Onset: 02-10-2023 04-22-2023 Episodic Genitourinary symptoms and ill-defined conditions (10 sources) Retention of urine, unspecified; Translations: [Retention of urine] Onset: 07-03-2020 09-18-2023 Episodic Mood disorders (7 sources) Mood disorders Onset: 09-18-2023 09-18-2023 Nutritional [...] Onset: 09-01-2022 Episodic Other connective tissue disease (7 sources) Other symptoms and signs involving the musculoskeletal system; Translations: [Other musculoskeletal symptoms referable to limbs] Onset: 11-18-2022 11-18-2022 Episodic Other gastrointestinal disorders (1 source) Heartburn; Translations: [HEARTBURN] Onset: 09-01-2022 Episodic Other hereditary and degenerative nervous system conditions (9 sources) Tardive dyskinesia; Translations: [Drug induced subacute [...] [Unsteadiness on feet] Onset: 12-17-2022 Episodic Other nervous system disorders (9 sources) Abnormal gait; Translations: [Unsteadiness on feet] Onset: 12-17-2022 09-18-2023 Episodic Other upper respiratory disease (4 sources) Epistaxis; Translations: [EPISTAXIS] Onset: 08-15-2022 Episodic Residual codes; unclassified (1 source) Body mass index (BMI) 23.0-23.9, adult; Translations: [BODY MASS INDEX BMI 23.0-23.9 ADULT] Onset: 09-01-2022 Episodic Skin and subcutaneous tissue infections (1 source) Local infection of the skin and subcutaneous tissue, unspecified; Translations: [LOCAL INFECT SKIN SUBQ TISSUE UNS] Onset: 09-01-2022 Episodic Spondylosis; intervertebral disc disorders; other back problems (5 sources) Radiculopathy, cervical region; Translations: [Lumbar disc prolapse with radiculopathy] Onset: 12-16-2022 05-28-2020 Episodic Unclassified (1 source) Other pericardial effusion (noninflammatory); Translations: [Other pericardial effusion (noninflammatory)] Onset: 09-03-2024 Unclassified (7 sources) Onset: 09-27-2023 Resolved: 02-12-2024 09-27-2023 Results Test Name Value Interpretation Reference Range Facility Office Visiton 10-25-2024 Follow-up visit [id number] Efraín Johnson 1950 M Date Provider Department Center 10/25/2024 MISSAEL PRINCE Family History Problem Relation Age of Onset Stroke Father Stroke Paternal Grandmother Stroke Paternal Grandfather Family Status - Relation Status Age at Father Paternal Grandmother Paternal Grandfather Level of Service:41633 [place] OFFICE/OUTPATIENT ESTABLISHED LOW MDM 20 MIN [facility] Office Visiton 09-26-2024 Follow-up visit [id number] Efraín Johnson 1950 M Date Provider Department Center 09/26/2024 ZEV JOHNSON Family History Problem Relation Age of Onset Stroke Father Stroke Paternal Grandmother Stroke Paternal Grandfather Family Status - Relation Status Age at Father Paternal Grandmother Paternal Grandfather Level of Service:87156 [place] POSTOP FOLLOW UP VISIT RELATED TO ORIGINAL PX [facility] Office [facility] 09-16-2024 Follow-up visit [id number] Efraín Johnson 1950 M Date Provider Department Center 09/16/2024 ZEV JOHNSON Family History Problem Relation Age of Onset Stroke Father Stroke Paternal Grandmother Stroke Paternal Grandfather Family Status - Relation Status Age at Father Paternal Grandmother Paternal Grandfather Level of Service:21425 [place] POSTOP FOLLOW UP VISIT RELATED TO ORIGINAL PX Reason for Visit and Comments: Wound Check [[id number]] - S/p PPM insertion with Dr. Chaparro on 09/07/2024 [facility] ANEMaxx 09-07-2024 ANES - Attestation signed by Missael Chaparro MD at 09/07/2024 2:15 PM By using the attestations below, the [...] be an additional personal documentation from me. Patient: Efraín Perryf Choose an anesthesia record to view details Clinical information reviewed: Tobacco Allergies Med Hx Surg Hx Fam Hx Soc Hx Physical Exam Airway Mallampati: II TM distance: >3 FB Neck ROM: full Cardiovascular Rhythm: regular Rate: normal (-) murmur Dental Pulmonary (-) decreased breath sounds, wheezes, rales Abdominal Abdomen: soft Bowel sounds: normal Anesthesia Plan ASA 3 (Conscious sedation) Anesthetic plan and risks discussed with patient. Use of blood products discussed with patient who consented to blood products. Plan discussed with attending and fellow. Additional Equipment Requests Normal [facility] APTTon 09-07-2024 ACTIVATED PARTIAL THROMBOPLASTIN TIME IN PPP BY COAGULATION ASSAY 31.9 Seconds Normal 25.0-35.0 [facility] Comment on above: Result Comment: Clin ical significance of the APTT is questionable in the presence of heparin. Performed By: #### L [id number] #### [facility] ([facility]) [address] [place] [address] CBC WITH AUTO DIFFERENTIALon 09-07-2024 Basophils (Bld) [#/Vol] 0.07 10*3/uL Normal 0.00-0.20 [facility] Comment on above: Performed By: #### L [id number] #### [facility] ([facility]) [address] [place] [address] Basophils/100 WBC (Bld) 0.9 % Normal 0.0-1.0 [facility] Comment on above: Performed By: #### L [id number] #### [facility] [address] [place] [address] Eosinophils (Bld) [#/Vol] 0.06 10*3/uL Normal 0.00-0.50 [facility] Comment on above: Performed By: #### L [id number] #### [facility] ([facility]) [address] [place] [address] Eosinophils/100 WBC (Bld) 0.7 % Normal 0.0-6.0 [facility] Comment on above: Performed By: #### L [id number] #### [facility] ([facility]) [address] [place] [address] Erythrocyte distribution width (RBC) [Ratio] 15.2 % High 11.5-15.0 [facility] Comment on above: Performed By: #### L [id number] #### [facility] ([facility]) [address] [place] [address] ERYTHROCYTE MEAN CORPUSCULAR HEMOGLOBIN CONCENTRATION (G/DL) BY AUTOMATED 31.9 g/dL Low 32.0-35.0 [facility] Comment on above: Performed By: #### L [id number] #### [facility] [address] [place] [address] Hematocrit (Bld) [Volume fraction] 44.2 % Normal 39.0-55.0 [facility] Comment on above: Performed By: #### L [id number] #### [facility] ([facility]) [address] [place] [address] Hemoglobin (Bld) [Mass/Vol] 14.1 g/dL Normal 13.0-17.0 [facility] Comment on above: Performed By: #### L [id number] #### [facility] ([facility]) [address] [place] [address] Immature granulocytes (Bld) [#/Vol] 0.01 10*3/uL Normal 0.00-0.20 [facility] Comment on above: Performed By: #### L [id number] #### [facility] ([facility]) [address] [place] [address] Immature granulocytes/100 WBC (Bld) 0.1 % Normal 0.0-1.0 [facility] Comment on above: Performed By: #### L [id number] #### [facility] ([facility]) [address] [place] [address] Lymphocytes (Bld) [#/Vol] 1.19 10*3/uL Low 1.20-4.00 [facility] Comment on above: Performed By: #### L [id number] #### [facility] ([facility]) [address] [place] [address] Lymphocytes/100 WBC (Bld) 14.8 % Low 20.0-45.0 [facility] Comment on above: Performed By: #### L [id number] #### [facility] ([facility]) [address] [place] [address] MCH (RBC) [Entitic mass] 27.5 pg Normal 27.0-33.0 [facility] Comment on above: Performed By: #### L [id number] #### [facility] ([facility]) [address] [place] [address] MCV (RBC) [Entitic vol] 86.2 fL Normal 82.0-98.0 [facility] Comment on above: Performed By: #### L [id number] #### [facility] ([facility]) [address] [place] [address] Monocytes (Bld) [#/Vol] 0.86 10*3/uL Normal 0.10-1.00 [facility] Comment on above: Performed By: #### L [id number] #### [facility] ([facility]) [address] [place] [address] Monocytes/100 WBC (Bld) 10.7 % Normal 5.0-12.0 [facility] Comment on above: Performed By: #### L [id number] #### [facility] ([facility]) [address] [place] [address] Neutrophils (Bld) [#/Vol] 5.83 10*3/uL Normal 1.60-7.60 [facility] Comment on above: Performed By: #### L [id number] #### [facility] ([facility]) [address] [place] [address] Neutrophils/100 WBC (Bld) 72.8 % High 40.0-72.0 [facility] Comment on above: Performed By: #### L [id number] #### [facility] ([facility]) [address] [place] [address] NRBC (PER 100 WBCS) BY AUTOMATED COUNT 0.0 % Normal 0 [facility] Comment on above: Performed By: #### L [id number] #### [facility] ([facility]) [address] [place] [address] PLATELETS (10*3/UL) IN BLOOD AUTOMATED COUNT 265 10*3/uL Normal 150-400 [facility] Comment on above: Performed By: #### L [id number] #### [facility] ([facility]) [address] [place] [address] RBC (Bld) [#/Vol] 5.13 10*6/uL Normal 4.20-5.70 [facility] Comment on above: Performed By: #### L [id number] #### [facility] ([facility]) [address] [place] [address] WBC (Bld) [#/Vol] 8.02 10*3/uL Normal 4.00-10.60 [facility] Comment on above: Performed By: #### L [id number] #### [facility] ([facility]) [address] [place] [address] COMPREHENSIVE METABOLIC PANE Peter 09-07-2024 Albumin [Mass/Vol] 4.4 g/dL Normal 3.5-5.7 [facility] Comment on above: Performed By: #### L [id number] #### [facility] ([facility]) [address] [place] [address] ALP [Catalytic activity/Vol] 72 U/L Normal 34-104 [facility] Comment on above: Performed By: #### L [id number] #### [facility] ([facility]) [address] [place] [address] ALT [Catalytic activity/Vol] 3 U/L Low 7-52 [facility] Comment on above: Performed By: #### L [id number] #### [facility] ([facility]) [address] [place] [address] Anion gap [Moles/Vol] 12 mmol/L Normal 7-20 [facility] Comment on above: Performed By: #### L [id number] #### [facility] ([facility]) [address] [place] [address] AST [Catalytic activity/Vol] 14 U/L Normal 13-39 [facility] Comment on above: Performed By: #### L [id number] #### [facility] ([facility]) [address] [place] [address] Bilirubin [Mass/Vol] 0.7 mg/dL Normal 0.3-1.0 [facility] Comment on above: Performed By: #### L [id number] #### [facility] ([facility]) [address] [place] [address] Calcium [Mass/Vol] 8.7 mg/dL Normal 8.6-10.3 [facility] Comment on above: Performed By: #### L [id number] #### [facility] ([facility]) [address] [place] [address] Chloride [Moles/Vol] 109 mmol/L High 98-107 [facility] Comment on above: Performed By: #### L [id number] #### [facility] ([facility]) [address] [place] [address] CO2 [Moles/Vol] 20 mmol/L Low 21-31 [facility] Comment on above: Performed By: #### L [id number] #### [facility] ([facility]) [address] [place] [address] Creatinine [Mass/Vol] 1.77 mg/dL High 0.70-1.30 [facility] Comment on above: Performed By: #### L [id number] #### [facility] ([facility]) [address] [place] [address] GLOMERULAR FILTRATION RATE ML/MIN/1.73 SQ M.PREDICTED 40.1 mL/min/1.73m*2 Low >60.0 [facility] Comment on above: Result Comment: [facility]???s estimated glomerular filtration rate (eGFR) will [...] individuals. Performed By: #### L [id number] #### [facility] ([facility]) [address] [place] [address] Glucose [Mass/Vol] 87 mg/dL Normal 70-100 [facility] Comment on above: Performed By: #### L [id number] #### [facility] ([facility]) [address] [place] [address] Potassium [Moles/Vol] 4.3 mmol/L Normal 3.5-5.1 [facility] Comment on above: Performed By: #### L [id number] #### [facility] ([facility]) [address] [place] [address] Protein [Mass/Vol] 6.5 g/dL Normal 6.0-8.3 [facility] Comment on above: Performed By: #### L [id number] #### [facility] ([facility]) [address] [place] [address] Sodium [Moles/Vol] 137 mmol/L Normal 136-145 [facility] Comment on above: Performed By: #### L [id number] #### [facility] ([facility]) [address] [place] [address] Urea nitrogen [Mass/Vol] 24 mg/dL Normal 7-25 [facility] Comment on above: Performed By: #### L [id number] #### [facility] ([facility]) [address] [place] [address] UREA NITROGEN/CREATININE (MASS RATIO) IN SER/PLAS 13.6 Normal [facility] Comment on above: Performed By: #### L [id number] #### [facility] ([facility]) [address] [place] [address] EDPROVon 09-07-2024 EDPROV History of Present Illness Chief Complaint Patient presents with Dizziness States he needs a pacemaker placed in. Initial evaluation completed by Dr. Lara at 1:01 PM. Efraín Johnson is a 74 y.o. male presenting to the ED with c/o dizziness. Pt reports a fall on 09/03 and admission to the hospital following. Discharge from the hospital was on 09/05. Pt denies any new symptoms since discharge. Pt is is in the ED because of loop monitor recording and being advised to come to the ED for pacemaker placement. Pt denies chest pain, SOB, fevers, blood in urine or stool, or hx of PR or stint placement. Pt is on aspirin and sees a sustainability executive director. . History provided by: Patient and caregiver (daughter) [place] Coma Scale Score: 15 History Past Medical History: Diagnosis Date Bradycardia Chronic kidney disease Dementia (CMS/HCC) Hypokalemia Hyponatremia Parkinson disease (CMS/HCC) Past Surgical History: Procedure Laterality Date BACK SURGERY CHOLECYSTECTOMY PROSTATE SURGERY TOE SURGERY Family History Problem Relation Name Age of Onset Stroke Father Stroke Paternal Grandmother Stroke Paternal Grandfather Social History Tobacco Use Smoking status: Former Types: Cigarettes Smokeless tobacco: Never Vaping Use Vaping status: Never Used Substance Use Topics Alcohol use: Not Currently Drug use: Never Review of Systems Review of Systems All other systems reviewed and are negative. Physical Exam ED Triage Vitals [09/07/24 1136] Temp Heart Rate Resp BP 36.6 ???C (97.8 ???F) 73 18 124/89 SpO2 Temp src Heart Rate Source Patient Position 100 % -- -- Sitting BP Location FiO2 (%) Left arm -- Physical Exam Vitals and nursing note reviewed. Constitutional: General: He is not in acute distress. Appearance: He is well-developed. HENT: Head: Normocephalic and atraumatic. Eyes: Conjunctiva/sclera: Conjunctivae normal. Cardiovascular: Rate and Rhythm: Normal rate and regular rhythm. Heart sounds: No murmur heard. Pulmonary: Effort: Pulmonary effort is normal. No respiratory distress. Breath sounds: Normal breath sounds. Abdominal: Palpations: Abdomen is soft. Tenderness: There is no abdominal tenderness. Musculoskeletal: General: No swelling. Cervical back: Neck supple. Skin: General: Skin is warm and dry. Capillary Refill: Capillary refill takes less than 2 seconds. Neurological: Mental Status: He is alert. Psychiatric: Mood and Affect: Mood normal. ECG 12 lead Performed by: Orlando Lara MD Authorized by: Orlando Lara MD Rate: ECG rate: 67 Rhythm: Rhythm: sinus rhythm Comments: Qtc-Baz: 420 ms. Left axis deviation, low voltage QRS, abnormal ECG. ED Course & MDM ED Course as of 09/07/24 1431 ThuSep 07, 2024 1410 Spoke to [employer] [facility] [employer] staff who took patient to EP lab to have pacemaker placed as patient was noted to have a 15-second pause on loop recorder contributing to his syncopal episode. Labs were performed and found be unremarkable. Patient was asymptomatic. Vital signs within normal limits. No recent syncopal episodes since discharge from hospital on Thursday. No chest pain or shortness of breath. after discussing case with [employer] nurse plan to discharge from [facility] [NF] ED Course User Index [NF] Orlando Lara MD Medical Decision Making I, Melly castro, documented on behalf of Dr. Lara. Chief complaint dizziness Differential Diagnosis includes but is not limited to near syncope from electrolyte abnormalities, unlikely infection, cardiac arrhythmia, unlikely ACS, no evidence of TIA or stroke.. Plan of Care: Evaluation for dizziness including cardiac workup to evaluate for any cardiac arrhythmias or pauses. Evaluate for any cardiac injury. Electro abnormality, or unlikely infection. Vital signs currently within normal limits. No neurological dysfunction. Patient low oriented no distress at this time. Labs notable for none. On re-evaluation, patient is resting comfortably. Monitor notes. Results were discussed. Based on the diagnostic results and physical exam, pt will be sent to [facility] for pacemaker placement due to 15-second pause identified on loop recorder. Cardiology aware and will be sending patient to [facility].. Dr. Lara has independently reviewed the radiologist report. Exam findings are as follows: Electrophysiology procedure Final Result 1. Successful dual chamber pacemaker with excellent pacing and sensing parameters. 2. LOOP removal. RECOMMENDATIONS: 1. Occlusive dressing to be removed after 2 weeks. 2. Do not wet the incision for 7 days. 3. No lifting heavy weights using arm on the same side x 3weeks 4. Do not lift elbow above the shoulder on the same side for 4-6 weeks. 5. No driving for 1 month. 6. F/u in device clinic 1 week from discharge or sooner for any concerns. Missael Chaparro MD Cardiac Electrophysiology XR chest 2 views (more content not included)... [facility] HPon 09-07-2024 - Attestation signed by Missael Chaparro MD at 09/07/2024 2:16 PM By using the attestations below, the [...] be an additional personal documentation from me. Pt noted to have a very significant pause with associated syncope. Will proceed with PPM and loop explant. I discussed the procedure in length with figures to the patient and went over the risks, benefits and alternatives of the PPM implantation procedure. I stated to the patient that the risk can be classified as major and minor complications. The minor include discomfort over the incision site, erythema. The major complications include pneumothorax, hemothorax, thromboembolism including DVT stroke systemic emboli endorgan damage and even . We also discussed the possibility of lead perforation leading to pericardial effusion or tamponade which may or may not require surgical intervention as well as the possibility of valve damage. Overall the risk of these complications ranged anywhere from 1-5%. Patient verbalized understanding and have agreed to proceed with the procedure. Cardiology Consult Note Reason for Consult: Sinus pause HPI: Efraín Johnson is a 74 y.o. male with past history remarkable for primary hypertension, mixed hyperlipidemia, chronic kidney disease, and Parkinson disease who presented to [facility] ED with fall after syncopal episode, his witnessed patient walking in the kitchen then she heard the patient fell down, patient did not recall much of the incident was not sure about the duration of passing out, denied having any presyncopal symptoms nausea or warmth, no post syncopal confusion, tongue biting or urinary incontinence, he denied having any chest pain or shortness of breath or dizziness. Treadmill stress test on 04/13/2023 was negative. 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 Cardiology ROS: Review of Systems Constitutional: Negative for activity change and appetite change. Respiratory: Negative for cough, chest tightness, shortness of breath and wheezing. Cardiovascular: Negative for chest pain, palpitations and leg swelling. Gastrointestinal: Negative for abdominal pain, nausea and vomiting. Genitourinary: Negative for dysuria and hematuria. Neurological: Negative for dizziness and light-headedness. Past Medical History He has a past medical history of Bradycardia, Chronic kidney disease, Dementia (CMS/HCC), Hypokalemia, Hyponatremia, and Parkinson disease ([facility] Surgical History He has a past surgical history that includes Back surgery; Cholecystectomy; Prostate surgery; and Toe Surgery. Social History He reports that he has quit smoking. His smoking use included cigarettes. He has never used smokeless tobacco. He reports that he does not currently use alcohol. He reports that he does not use drugs. Family History Family History Problem Relation Name Age of Onset Stroke Father Stroke Paternal Grandmother Stroke Paternal Grandfather Allergies Penicillins Medications Current Outpatient Medications Medication Instructions albuterol 90 mcg/actuation inhaler 2 puffs, inhalation, Every 4 hours PRN amLODIPine (NORVASC) 10 mg, oral, Once Daily aspirin 81 mg, oral, Daily baclofen (LIORESAL) 10 mg, oral, Daily PRN carbidopa-levodopa (Sinemet CR) 25-100 mg ER tablet 1 tablet, oral, 3 times daily carbidopa-levodopa (Sinemet) 25-100 mg tablet TAKE 1 TABLET BY MOUTH 3 TIMES DAILY AT 6 AM, 12 PM, AND 6 PM BEFORE MEALS hydrALAZINE (APRESOLINE) 25 mg, oral, 3 times daily Klor-Con M20 20 mEq ER tablet 20 mEq, oral, Daily memantine (NAMENDA) 5 mg, oral, 2 times daily (Not in a hospital admission) Last Recorded Vitals Patient Vitals for the past 24 hrs: Height Weight 09/07/24 1133 1.778 m (5' 10 ) 69.3 kg (152 lb 12.8 oz) Physical Examination: Physical Exam Constitutional: General: He is not in acute distress. Appearance: He is not ill-appearing. HENT: Head: Normocephalic and atraumatic. Cardiovascular: Rate and Rhy (more content not included)... [facility] Iraj 09-07-2024 TRICIA RN educated pt on d/ c instructions. This included: site care, limited physical activity, resume normal diet, future appointments, medications, and moderate sedation instructions. RN educated pt on when to notify physician and when to go to the hospital. RN provided pt with arm sling and educated pt on importance of not lifting arm above 90 degrees, weight bearing more than 5lbs, and driving for the next 4 weeks. RN encouraged pt to voice any questions or concerns, and answered any questions or concerns if pt verbalized. Pt was wheeled off of unit with all of belongings. [facility] PROTIME-INRon 09-07-2024 INR IN PPP BY COAGULATION ASSAY 1.04 Normal 0.90-1.10 [facility] Comment on above: Result Comment: ACCC P RECOMMENDED INR FOR [facility] THERAPY CONDITION INR PROPHYLAXIS OF VENOUS THROMBOSIS 2-3 (HIGH-RISK SURGERY) TREATMENT OF VENOUS THROMBOSIS 2-3 TREATMENT OF PULMONARY EMBOLISM 2-3 PREVENTION OF SYSTEMIC EMBOLISM: 2-3 ACUTE MYOCARDIAL INFARCTION TISSUE HEART VALVES VALVULAR HEART DISEASE ATRIAL FIBRILLATION RECURRENT SYSTEMIC EMBOLISM MECHANICAL HEART VALVE 2.5-3.5 FROM: ORAL ANTICOAGULANTS. MECHANISM OF ACTION, CLINICAL EFFECTIVENESS, AND OPTIMAL THERAPEUTIC RANGE. CHEST 1995;108:231S-246S. Performed By: #### L [id number] #### [facility] ([facility]AK[facility]) [address] [place] [address] PROTHROMBIN TIME (PT) IN PPP BY COAGULATION ASSAY 13.6 Seconds Normal 12.3-14.8 [facility] Comment on above: Performed By: #### L [id number] #### [facility] ([facility]) [address] [place] [address] TROPONIN Ion 09-07-2024 Troponin I.cardiac [Mass/Vol] 0.01 ng/mL Normal 0.00-0.04 [facility] Comment on above: Performed By: #### L [id number] #### [facility] ([facility]) [address] [place] [address] 36on 09-06-2024 36 Attempted discharge follow up phone call. Spoke to pts daughter Mere that said he was not home presently. Left message with daughter. Normal [facility] Telephoneon 09-06-2024 Telephone [phone] Efraín Johnson Pinky 1950 M Date Provider Department Center 09/06/2024 [facility] Family History Problem Relation Age of Onset Stroke Father Stroke Paternal Grandmother Stroke Paternal Grandfather Family Status - Relation Status Age at Father Paternal Grandmother Paternal Grandfather Normal [facility] 30on 09-05-2024 30 Problem: Pain - Adul t Goal: Verbalizes/displays adequate comfort level or baseline comfort level Outcome: Progressing Flowsheets (Taken 09/05/2024799) Verbalizes/displays adequate comfort level or baseline comfort [...] and behaviors that affect risk of falls [place] fall precautions as indicated by assessment Educate [...] of urinary retention Outcome: Progressing Flowsheets (Taken 09/05/2024 0800) Absence of urinary retention: Assess patient???s ability to void and empty bladder Monitor intake/output and perform bladder scan as needed Problem: Infection - Adult Goal: Absence of (more content not included)... Normal [facility] 30 The patient is Moderately Stable [...] and behaviors that affect risk of falls [place] fall precautions as indicated by assessment Educate patient/family on patient safety, including physical limitations Instruct patient to call for assistance with activity based on assessment Modify environment to reduce risk of injury [facility] BASIC METABOLIC PANELon 12-0 Anion gap [Moles/Vol] 12 mmol/L Normal 7-20 [facility] Comment on above: Performed By: #### L [id number] ####[facility] ([facility])[address] [place] [address] Calcium [Mass/Vol] 8.8 mg/dL Normal 8.6-10.3 [facility] Comment on above: Performed By: #### L [id number] ####[facility] ([facility])[address] [place] [address] Chloride [Moles/Vol] 107 mmol/L Normal 98-107 [facility] Comment on above: Performed By: #### L [id number] ####[facility] ([facility])[address] [place] [address] CO2 [Moles/Vol] 20 mmol/L Low 21-31 [facility] Comment on above: Performed By: #### L [id number] ####[facility] ([facility])[address] [place] [address] Creatinine [Mass/Vol] 1.38 mg/dL High 0.70-1.30 [facility] Comment on above: Performed By: #### L [id number] ####[facility] ([facility])[address] [place] [address] GLOMERULAR FILTRATION RATE ML/MIN/1.73 SQ M.PREDICTED 54.0 mL/min/1.73m*2 Low >60.0 [facility] Comment on above: Result Comment: [facility]???s estimated glomerular filtration rate (eGFR) will [...] of individuals. Performed By: #### L [id number] ####[facility] ([facility])[address] [place] [address] Glucose [Mass/Vol] 89 mg/dL Normal 70-100 [facility] Comment on above: Performed By: #### L [id number] ####[facility] ([facility])[address] [place] [address] Potassium [Moles/Vol] 3.6 mmol/L Normal 3.5-5.1 [facility] Comment on above: Performed By: #### L [id number] ####[facility] ([facility])[address] [place] [address] Sodium [Moles/Vol] 135 mmol/L Low 136-145 [facility] Comment on above: Performed By: #### L [id number] ####[facility] ([facility])[address] [place] [address] Urea nitrogen [Mass/Vol] 18 mg/dL Normal 7-25 [facility] Comment on above: Performed By: #### L [id number] ####[facility] [place] [address] UREA NITROGEN/CREATININE (MASS RATIO) IN SER/PLAS 13.0 Normal [facility] Comment on above: Performed By: #### L [id number] ####[facility] ([facility])[address] [place] [address] CBCon 09-05-2024 Erythrocyte distribution width (RBC) [Ratio] 14.9 % Normal 11.5-15.0 [facility] Comment on above: Performed By: #### L [id number] ####[facility] ([facility])[address] [place] [address] ERYTHROCYTE MEAN CORPUSCULAR HEMOGLOBIN CONCENTRATION (G/DL) BY AUTOMATED 33.2 g/dL Normal 32.0-35.0 [facility] Comment on above: Performed By: #### L [id number] ####[facility] [place] [address] Hematocrit (Bld) [Volume fraction] 45.2 % Normal 39.0-55.0 [facility] Comment on above: Performed By: #### L [id number] ####[facility] [place] [address] Hemoglobin (Bld) [Mass/Vol] 15.0 g/dL Normal 13.0-17.0 [facility] Comment on above: Performed By: #### L [id number] ####[facility] [place] [address] MCH (RBC) [Entitic mass] 27.3 pg Normal 27.0-33.0 [facility] Comment on above: Performed By: #### L [id number] ####[facility] ([facility])[address] [place] [address] MCV (RBC) [Entitic vol] 82.2 fL Normal 82.0-98.0 [facility] Comment on above: Performed By: #### L [id number] ####[facility] ([facility])[address] [facility] [address] PLATELETS (10*3/UL) IN BLOOD AUTOMATED COUNT 267 10*3/uL Normal 150-400 [facility] Comment on above: Performed By: #### L [id number] ####[facility] ([facility])[address] [facility] [place] [address] RBC (Bld) [#/Vol] 5.50 10*6/uL Normal 4.20-5.70 [facility] Comment on above: Performed By: #### L [id number] ####[facility] ([facility])[address] [facility] [place] [address] WBC (Bld) [#/Vol] 7.60 10*3/uL Normal 4.00-10.60 [facility] Comment on above: Performed By: #### L [id number] ####[facility] ([facility])[address] [place] [address] CONSULTon 09-05-2024 CONSULT - Attestation signed by Missael Chaparro MD at 09/09/2024 3:48 PM By using the attestations below, the [...] be an additional personal documentation from me. LOOP data provided to us did not reveal any arrhythmia to explain syncope. Pt was later discharged on this information. I was then informed later after discharge about the presence of singificant pause and sinus arrest. Patient was then contacted at home to come to ER for PPM. Cardiology Consult Note Reason for Consult: Syncope HPI: Efraín Johnson is a 74 y.o. male with past history remarkable for primary hypertension, mixed hyperlipidemia, chronic kidney disease, and Parkinson disease who presented to [facility] ED with fall after syncopal episode, his witnessed patient walking in the kitchen then she heard the patient fell down, patient did not recall much of the incident was not sure about the duration of passing out, denied having any presyncopal symptoms nausea or warmth, no post syncopal confusion, tongue biting or urinary incontinence, he denied having any chest pain or shortness of breath or dizziness. Treadmill stress test on 04/13/2023 was negative. 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 EKG with normal sinus rhythm with left axis deviation. EP team consulted for further evaluation and management. Cardiology ROS: Review of Systems Constitutional: Negative for activity change and appetite change. Respiratory: Negative for cough, chest tightness, shortness of breath and wheezing. Cardiovascular: Negative for chest pain, palpitations and leg swelling. Gastrointestinal: Negative for abdominal pain, nausea and vomiting. Genitourinary: Negative for dysuria and hematuria. Neurological: Positive for syncope. Negative for dizziness and light-headedness. Past Medical History He has a past [...] Grandmother Stroke Paternal Grandfather Allergies Penicillins Medications Current Outpatient Medications Medication Instructions albuterol 90 mcg/actuation inhaler 2 puffs, inhalation, Every 4 hours PRN amLODIPine (NORVASC) 10 mg, oral, Once Daily aspirin 81 mg, oral, Daily baclofen (LIORESAL) 10 mg, oral, Daily PRN carbidopa-levodopa (Sinemet CR) 25-100 mg ER tablet 1 tablet, oral, 3 times daily carbidopa-levodopa (Sinemet) 25-100 mg tablet TAKE 1 TABLET BY MOUTH 3 TIMES DAILY AT 6 AM, 12 PM, AND 6 PM BEFORE MEALS donepezil (ARICEPT) 10 mg, oral, Daily hydrALAZINE (Apresoline) 10 mg tablet TAKE 1 TABLET BY MOUTH IN THE MORNING AT NOON AND AT BEDTIME Klor-Con M20 20 mEq ER tablet 20 mEq, oral, Daily memantine (NAMENDA) 5 mg, oral, 2 times daily metoprolol tartrate (LOPRESSOR) 25 mg, oral, 2 times daily Medications Prior to Admission Medication Sig Dispense [...] mEq by mouth in the morning. memantine (N (more content not included)... [facility] CT HEAD WO IV CONTRASTon CT HEAD [...] Macias MD. Not Vldtd Invalid Interpretation Code [facility] 30on 09-04-2024 30 The patient is [...] and behaviors that affect risk of falls [place] fall precautions as indicated by assessment Instruct [...] and prevent overall improvement and discharge Normal [facility] 30 The patient is Moderately Stable - Low risk of patient condition declining or worsening The patient's goals for the shift include The clinical goals for the shift include vss Normal [facility] 30 The patient is Moderately Stable - Low risk of patient condition declining or worsening The patient's goals for the shift include COMFORT The clinical goals for the shift include vss Normal [facility] CBC WITH AUTO DIFFERENTIALon 09-04-2024 Basophils (Bld) [#/Vol] 0.04 10*3/uL Normal 0.00-0.20 [facility] Comment on above: Performed By: #### L [id number] #### [facility] ([facility]) [address] [place] [address] Basophils/100 WBC (Bld) 0.4 % Normal 0.0-1.0 [facility] Comment on above: Performed By: #### L [id number] #### [facility] ([facility]) [address] [place] [address] Eosinophils (Bld) [#/Vol] 0.01 10*3/uL Normal 0.00-0.50 [facility] Comment on above: Performed By: #### L [id number] #### [facility] ([facility]) [address] [place] [address] Eosinophils/100 WBC (Bld) 0.1 % Normal 0.0-6.0 [facility] Comment on above: Performed By: #### L [id number] #### [facility] ([facility]) [address] [place] [address] Erythrocyte distribution width (RBC) [Ratio] 14.9 % Normal 11.5-15.0 [facility] Comment on above: Performed By: #### L [id number] #### [facility] ([facility]) [address] [place] [address] ERYTHROCYTE MEAN CORPUSCULAR HEMOGLOBIN CONCENTRATION (G/DL) BY AUTOMATED 32.4 g/dL Normal 32.0-35.0 [facility] Comment on above: Performed By: #### L [id number] #### [facility] ([facility]) [address] [place] [address] Hematocrit (Bld) [Volume fraction] 45.0 % Normal 39.0-55.0 [facility] Comment on above: Performed By: #### L [id number] #### [facility] ([facility]) [address] [place] [address] Hemoglobin (Bld) [Mass/Vol] 14.6 g/dL Normal 13.0-17.0 [facility] Comment on above: Performed By: #### L [id number] #### [facility] ([facility]) [address] [place] [address] Immature granulocytes (Bld) [#/Vol] 0.02 10*3/uL Normal 0.00-0.20 [facility] Comment on above: Performed By: #### L [id number] #### [facility] ([facility]) [address] [address] Immature granulocytes/100 WBC (Bld) 0.2 % Normal 0.0-1.0 [facility] Comment on above: Performed By: #### L [id number] #### [facility] ([facility]) [address] [place] [address] Lymphocytes (Bld) [#/Vol] 1.17 10*3/uL Low 1.20-4.00 [facility] Comment on above: Performed By: #### L [id number] #### [facility] ([facility]) [address] [place] [address] Lymphocytes/100 WBC (Bld) 11.8 % Low 20.0-45.0 [facility] Comment on above: Performed By: #### L [id number] #### [facility] ([facility]) [address] [place] [address] MCH (RBC) [Entitic mass] 27.2 pg Normal 27.0-33.0 [facility] Comment on above: Performed By: #### L [id number] #### [facility] ([facility]) [address] [place] [address] MCV (RBC) [Entitic vol] 83.8 fL Normal 82.0-98.0 [facility] Comment on above: Performed By: #### L [id number] #### [facility] ([facility]) [address] [place] [address] Monocytes (Bld) [#/Vol] 0.89 10*3/uL Normal 0.10-1.00 [facility] Comment on above: Performed By: #### L [id number] #### [facility] ([facility]) [address] [place] [address] Monocytes/100 WBC (Bld) 9.0 % Normal 5.0-12.0 [facility] Comment on above: Performed By: #### L [id number] #### [facility] ([facility]) [address] [place] [address] Neutrophils (Bld) [#/Vol] 7.78 10*3/uL High 1.60-7.60 [facility] Comment on above: Performed By: #### L [id number] #### [facility] ([facility]) [address] [place] [address] Neutrophils/100 WBC (Bld) 78.5 % High 40.0-72.0 [facility] Comment on above: Performed By: #### L [id number] #### [facility] ([facility]) [address] [place] [address] NRBC (PER 100 WBCS) BY AUTOMATED COUNT 0.0 % Normal 0 [facility] Comment on above: Performed By: #### L [id number] #### [facility] ([facility]) [address] [place] [address] PLATELETS (10*3/UL) IN BLOOD AUTOMATED COUNT 279 10*3/uL Normal 150-400 [facility] Comment on above: Performed By: #### L [id number] #### [facility] ([facility]) [address] [place] [address] RBC (Bld) [#/Vol] 5.37 10*6/uL Normal 4.20-5.70 [facility] Comment on above: Performed By: #### L [id number] #### [facility] ([facility]) [address] [place] [address] WBC (Bld) [#/Vol] 9.91 10*3/uL Normal 4.00-10.60 [facility] Comment on above: Performed By: #### L [id number] #### [facility] ([facility]) [address] [place] [address] COMPREHENSIVE METABOLIC PANE Peter 09-04-2024 Albumin [Mass/Vol] 4.3 g/dL Normal 3.5-5.7 [facility] Comment on above: Performed By: #### L [id number] #### [facility] ([facility]) [address] [place] [address] ALP [Catalytic activity/Vol] 70 U/L Normal 34-104 [facility] Comment on above: Performed By: #### L [id number] #### [facility] ([facility]) [address] [place] [address] ALT [Catalytic activity/Vol] 8 U/L Normal 7-52 [facility] Comment on above: Performed By: #### L [id number] #### [facility] ([facility]) [address] [place] [address] Anion gap [Moles/Vol] 14 mmol/L Normal 7-20 [facility] Comment on above: Performed By: #### L [id number] #### [facility] ([facility]) [address] [place] [address] AST [Catalytic activity/Vol] 14 U/L Normal 13-39 [facility] Comment on above: Performed By: #### L [id number] #### [facility] ([facility]) [address] [place] [address] Bilirubin [Mass/Vol] 1.4 mg/dL High 0.3-1.0 [facility] Comment on above: Performed By: #### L [id number] #### [facility] [facility] ([facility]) [address] [place] [address] Calcium [Mass/Vol] 9.1 mg/dL Normal 8.6-10.3 [facility] Comment on above: Performed By: #### L AB325 #### [facility] [address] [place] [address] Chloride [Moles/Vol] 110 mmol/L High 98-107 [facility] Comment on above: Performed By: #### L AB325 #### [facility] [address] [place] [address] CO2 [Moles/Vol] 19 mmol/L Low 21-31 [facility] Comment on above: Performed By: #### L AB325 #### [facility] [address] [place] [address] Creatinine [Mass/Vol] 1.47 mg/dL High 0.70-1.30 [facility] Comment on above: Performed By: #### L AB325 #### [facility] [address] [place] [address] GLOMERULAR FILTRATION RATE ML/MIN/1.73 SQ M.PREDICTED 50.1 mL/min/1.73m*2 Low >60.0 [facility] Comment on above: Result Comment: [facility]???s estimated glomerular filtration rate (eGFR) will [...] group of individuals. Performed By: #### L AB325 #### [facility] ([facility]) [address] [place] [address] Glucose [Mass/Vol] 87 mg/dL Normal 70-100 [facility] Comment on above: Performed By: #### L AB325 #### [facility] ([facility]) [address] [place] [address] Potassium [Moles/Vol] 4.0 mmol/L Normal 3.5-5.1 [facility] Comment on above: Performed By: #### L AB325 #### [facility] ([facility]) [address] [place] [address] Protein [Mass/Vol] 6.6 g/dL Normal 6.0-8.3 [facility] Comment on above: Performed By: #### L AB325 #### [facility] ([facility]) [address] [place] [address] Sodium [Moles/Vol] 139 mmol/L Normal 136-145 [facility] Comment on above: Performed By: #### L AB325 #### [facility] ([facility] [address] [place] [address] Urea nitrogen [Mass/Vol] 18 mg/dL Normal 7-25 [facility] Comment on above: Performed By: #### L AB325 #### [facility] ([facility]) [address] [place] [address] UREA NITROGEN/CREATININE (MASS RATIO) IN SER/PLAS 12.2 Normal [facility] Comment on above: Performed By: #### L AB325 #### [facility] ([facility]) [place] [address] CONSULTon 09-04-2024 CONSULT - Attestation signed by [...] of recurrent syncopal episodes and follows with [facility] cardiology clinic outpatient. Patient was [...] -- 84 15 94 % -- -- 09/03/249 -- -- -- -- -- -- 1.778 m (5' 10 ) -- 09/03/241999 132/88 36.6 ???C (97.9 ???F) Temporal 78 20 97 % -- -- 09/03/24 1910 (!) 144/96 -- -- 81 23 -- -- -- Physical Examination: GENERAL: AOx3, in no acute distress. HEAD: Atraumatic, normocephalic. EYES: P (more content not included)... Normal [facility] NURSNOTEon 09-04-2024 NURSNOTE Patient pleasantly confused and restless this shift. Pulled IV x3 near start of shift. IV's replaced x2, warren sleeves ordered and applied. Travel Professional notified Dr. Hale that patient continues to be restless with several attempts to rise from bed without assistance. Melatonin administered at HS, ineffective for sleep promotion. Order received for Ativan 0.5mg PO. Patient compliant with medication administration. Will continue to monitor this shift. Normal [facility] TSHon 09-04-2024 THYROTROPIN (MIU/L) IN SER/PLAS BY DETECTION LIMIT <= 0.05 MIU/L 0.56 mIU/L Normal 0.34-5.60 [facility] Comment on above: Performed By: #### L AB129 #### [facility] ([facility]) [address] [place] [address] POCT GLUCOSE METER UNSOLICIT ED RESULTSon 09-03-2024 Glucose [Mass/Vol] 107 mg/dL High 70-105 [facility] Comment on above: Order Comment: Waive d Testing in the ED is performed under the ED CLIA certificate #[id number]. Result Comment: [email or web address] Performed By: #### L AB325 #### [facility] ([facility]) [address] [place] [address] TROPONIN Ion 09-03-2024 Troponin I.cardiac [Mass/Vol] 0.01 ng/mL Normal 0.00-0.04 [facility] Comment on above: Performed By: #### L [id number] #### [facility] ([facility]) [address] [place] [address] Office Visiton 06-01-2024 Follow-up visit [id number] Efraín Johnson Pinky 1950 M Date Provider Department Center 06/01/2024 ZEV JOHNSON PILAR Fry Family History Problem Relation Age of Onset Stroke Father Stroke Paternal Grandmother Stroke Paternal Grandfather Family Status - Relation Status Age at Father Paternal Grandmother Paternal Grandfather Level of Service:[address] [place] OFFICE/OUTPATIENT ESTABLISHED MOD MDM 30 MIN Reason for Visit and Comments: Hyperlipidemia [182] Hypertension [725535] - Pt is here for a six month follow up. Normal [facility] Office Visiton 12-08-2023 Follow-up visit [id number] AlexEfraín Vance 1950 M Date Provider Department Center 12/08/2023 MISSAEL PRINCE PILAR Fry Family History Problem Relation Age of Onset Stroke Father Stroke Paternal Grandmother Stroke Paternal Grandfather Family Status - Relation Status Age at Father Paternal Grandmother Paternal Grandfather Level of Service:[address]120 [place] OFFICE/OUTPATIENT ESTABLISHED LOW MDM 20 MIN Normal [facility] Outside Colonoscopyon 2022 Outside Colonoscopy [id number]#1 .00CD:127 Normal [facility] Insurance Correspondenceon 0 05-14-2023 Insurance Correspondence [id number]# 1.00CD:127 Normal [facility] Consent for Procedure/Surger yon 05-13-2023 Consent for Procedure/Surgery [id number]#1 .00CD:127 Normal [facility] Ambulatory Visit Summaryon 0 05-12-2023 Ambulatory Visit Summary EFRAÍN JOHNSON Pinky :1950 Visit Date:05/12/2023 Ambulatory Visit Instructions Your [...] Epidermoid cyst of skin of back Normal [facility] ED Note-Physicianon 04-15-20 ED Note-Physician [id number]#1 .00CD:127 Normal [facility] RAD - CT Reporton 04-15-2023 RAD - CT Report [id number]#1 .00CD:127 Normal [facility] Physician Referralon 023 Physician Referral [id number] .00CD:127 Normal [facility] Physician Referralon 023 Physician Referral [id number]#1 .00CD:127 Normal [facility] BLOOD CULTURE ID PANELon A. baumannii Not detected Normal NOT DETECTED [facility] Comment on above: Performed By: #### B CID2 ####[facility] [address] [place] [address]Dr. Flaco Lawrence Bacteriodes fragilis Not detected Normal NOT DETECTED [facility] Comment on above: Performed By: #### B CID2 ####[facility] [address], [place] [address]Yk. Yilan Lawrence BCID CONTROLS PASSED Normal [facility] Comment on above: Performed By: #### B CID2 ####[facility] Tas[address]dv[address] [place] [id number]. Yiedith Lawrence BCIDBTHD BLOOD CULTURE BOTTLE INFORMATION Normal [facility] Comment on above: Performed By: #### B CID2 ####[facility] Iq[address]uz[address]oz[address] [place] [id number]. Yiedith Lawrence BCIDHD1 ANTIMICROBIAL RESISTANCE GENES [facility] Comment on above: Performed By: #### B CID2 ####[facility] [address] [place] [address]Dr. Yiedith Lawrence BCIDHD2 SEE BELOW [facility] Comment on above: Result Comment: Note : Antimicrobial resitance can occur via multiple mechanisms. A Not Detected result for the Primary DataArray antomicrobial resistance gene assays does not indicate antimicrobial susceptibility. Subculturing is required for species identification and susceptibility testing of isolates. Performed By: #### B CID2 ####[facility] [address] [place] [id number]. Yiedith Lawrence BCIDHD3 Positive [facility] Comment on above: Performed By: #### B CID2 ####[facility] Dderkpzgey360[address] [place] [address]Dr. Yilan Lawrence BCIDHD4 Negative [facility] Comment on above: Performed By: #### B CID2 ####[facility] R[address]ymyfrtr[address] [place] [id number]. Yiedith Lawrence BCIDHD5 YEAST Normal [facility] Comment on above: Performed By: #### B CID2 ####[facility] Ovuexngapt05[address] [place] [id number]. Yilan Lawrence Bottle Set: Set 2 [place] [facility] Comment on above: Performed By: #### B CID2 ####[facility] Tglupvmkno60[address] [place] [id number]. Yilan Lawrence Bottle: Pediatric Normal [facility] Comment on above: Performed By: #### B CID2 ####[facility] Aoihkeyurz[address] [place] [id number]. Yiedith Lawrence C. neoformans/gattii Not detected Normal NOT DETECTED [facility] Comment on above: Performed By: #### B CID2 ####[facility] Wdpvlnbjzt[address] [place] [address]Dr. Yiedith Lawrence Angela albicans Not detected Normal NOT DETECTED [facility] Comment on above: Performed By: #### B CID2 ####[facility] Jtrmrspchc[address] [place] [id number]. Yiedith Lawrence Angela auris Not detected Normal NOT DETECTED [facility] Comment on above: Performed By: #### B CID2 ####[facility] B[address]vofqr[address] [place], [place] [address]Dr. Yiedith Lawrence Angela glabrata Not detected Normal NOT DETECTED [facility] Comment on above: Performed By: #### B CID2 ####[facility] Tukrxlgneo[address] [place], [place] [address]Dr. Yiedith Lawrence Angela Krusei Not detected Normal NOT DETECTED [facility] Comment on above: Performed By: #### B CID2 ####[facility] Mqvfynqwea[address] [place], [place] [address]Dr. Yiedith Lawrence Angela Parapsilosis Not detected Normal NOT DETECTED [facility] Comment on above: Performed By: #### B CID2 ####[facility] Gcmtexjhoh[address] [place] [address]Dr. Yiedith Lawrence Angela Tropicalis Not detected Normal NOT DETECTED [facility] Comment on above: Performed By: #### B CID2 ####[facility] Rnlauxeurz32[address] [place] [address]Dr. Flaco Lawrence CTX-M Resistant Gene Not Applicable Normal NOT DETECTE D [facility] Comment on above: Performed By: #### B CID2 ####[facility] Usrrvpnmsy9[address] [place] [address]Dr. Yiedith Lawrence E. Cloacae complex Not detected Normal NOT DETECTED [facility] Comment on above: Performed By: #### B CID2 ####[facility] Issgnqltyk10[address] [place], [place] [address]Dr. Yilan Lawrence E. faecalis Not detected Normal NOT DETECTED The [facility] Comment on above: Performed By: #### B CID2 ####[facility] Xhgblyswlj14[address] [place], [place] [address]Dr. Flaco Lawrence E. faecium Not detected Normal NOT DETECTED The [facility] Comment on above: Performed By: #### B CID2 ####[facility] Epbeooxphv6[address] [place], [place] [address]Dr. Flaco Lawrence Enterobacteriaceae Not detected Normal NOT DETECTED [facility] Comment on above: Performed By: #### B CID2 ####[facility] Hkfaxkucum35[address] [place], [place] [address]Dr. Flaco Lawrence Escherichia coli Not detected Normal NOT DETECTED [facility] Comment on above: Performed By: #### B CID2 ####[facility] Nevhdrqmyl777[address] [place], [place] [address]Dr. Flaco Lawrence H. influenzae Not detected Normal NOT DETECTED [facility] Comment on above: Performed By: #### B CID2 ####[facility] Hzlidshoaq5458[address] [place], [place] [address]Dr. Flaco Lawrence IMP Resistant Gene Not Applicable Normal NOT DETECTED [facility] Comment on above: Performed By: #### B CID2 ####[facility] Wcaslahpds[address] [place], [place] [address]Dr. Flaco Lawrence K. oxytoca Not detected Normal NOT DETECTED [facility] Comment on above: Performed By: #### B CID2 ####[facility] Skhzvblfra63[address] [place], [place] [address]Dr. Flaco Lawrence K. pneumoniae Not detected Normal NOT DETECTED [facility] Comment on above: Performed By: #### B CID2 ####[facility] Qkwikfyevs66[address] [place], [place] [address]Dr. Flaco Lawrence Klebsiella aerogenes Not detected Normal NOT DETECTED [facility] Comment on above: Performed By: #### B CID2 ####[facility] Qoxrfcknyu1901[address] [place], [place] [address]Dr. Flaco Lawrence KPC Resistant Gene Not detected Normal NOT DETECTED [facility] Comment on above: Performed By: #### B CID2 ####[facility] Kodgmfihaf[address] [place] [address]Dr. Flaco Lawrence List. monocytogenes Not detected Normal NOT DETECTED [facility] Comment on above: Performed By: #### B CID2 ####[facility] Slzdpmatam6[address] [place] [address]Dr. Flaco Lawrence Mcr-1 Resistant Gene Not Applicable Normal NOT DETECTE D [facility] Comment on above: Performed By: #### B CID2 ####[facility] Zlcqollxze2157[address] [place], [place] [address]Dr. Flaco Lawrence mecA/C Not Applicable Normal NOT DETECTED [facility] Comment on above: Performed By: #### B CID2 ####[facility] Mopyrsjpmk02[address] [place], [place] [address]Dr. Flaco Lawrence mecA/C MREJ Not Applicable Normal NOT DETECTED [facility] Comment on above: Performed By: #### B CID2 ####[facility] Hqmduroukh6188[address] [place], [place] [address]Dr. Flaco Lawrence N. meningitidis Not detected Normal NOT DETECTED [facility] Comment on above: Performed By: #### B CID2 ####[facility] Hbbpfmmhtt7798[address] [place], [place] [address]Dr. Flaco Lawrence NDM Resistant Gene Not Applicable Normal NOT DETECTED [facility] Comment on above: Performed By: #### B CID2 ####[facility] Oxuovasdwm565[address] [place], [place] [address]Dr. Flaco Lawrence Oxa-48-like Not Applicable Normal NOT DETECTED [facility] Comment on above: Performed By: #### B CID2 ####[facility] Ohknvecsap[address] [place], [place] [address]Dr. Flaco Lawrence Proteus Not detected Normal NOT DETECTED [facility] Comment on above: Performed By: #### B CID2 ####[facility] Hsekrkbuwb4[address] [place], [place] [address]Dr. Flaco Lawrence Pseud. aeruginosa Not detected Normal NOT DETECTED [facility] Comment on above: Performed By: #### B CID2 ####[facility] Hquadseqqg4906 [place] [address]Dr. Flaco Lawrence S. maltophilia Not detected Normal NOT DETECTED [facility] Comment on above: Performed By: #### B CID2 ####[facility] Wghpekfsnt15[address] [place], [place] [address]Dr. Flaco Lawrence Salmonella Not detected Normal NOT DETECTED [facility] Comment on above: Performed By: #### B CID2 ####[facility] Oozktnilyc33[address] [place], [place] [address]Dr. Flaco Lawrence Seratia marcescens Not detected Normal NOT DETECTED [facility] Comment on above: Performed By: #### B CID2 ####[facility] Seokzcoayx3897[address] [place], [place] [address]Dr. Flaco Lawrence Site: left hand Normal [facility] Comment on above: Performed By: #### B CID2 ####[facility] Vsasqsqwxh65[address] [place], [place] [address]Dr. Flaco Lawrence Staph. aureus Not detected Normal NOT DETECTED [facility] Comment on above: Performed By: #### B CID2 ####[facility] Wvaopgncgx745[address] [place], [place] [address]Dr. Flaco Lawrence Staph. epidermidis Not detected Normal NOT DETECTED [facility] Comment on above: Performed By: #### B CID2 ####[facility] Gukdgbsxda088[address] [place], [place] [address]Dr. Flaco Lawrence Staph. lugdunensis Not detected Normal NOT DETECTED [facility] Comment on above: Performed By: #### B CID2 ####[facility] Nvzpzxgttq5[address] [place], [place] [address]Dr. Flaco Lawrence Staphylococcus Not detected Normal NOT DETECTED [facility] Comment on above: Performed By: #### B CID2 ####[facility] Ydqheimbbn697[address] [place], [place] [address]Dr. Flaco Lawrence Strep. agalactiae Not detected Normal NOT DETECTED [facility] Comment on above: Performed By: #### B CID2 ####[facility] Pzrhifmkpw76[address] [place], [place] [address]Dr. Purviedith Lawrence Strep. pneumoniae Not detected Normal NOT DETECTED [facility] Comment on above: Performed By: #### B CID2 ####[facility] Wmdmpjbemn05[address] [place], [place] [address]Dr. Flaco Lawrence Strep. pyogenes Not detected Normal NOT DETECTED [facility] Comment on above: Performed By: #### B CID2 ####[facility] Wwvckjitvh[address] [place], [place] [address]Dr. Flaco Lawrence Streptococcus Detected Critically abnormal NOT DETECTED [facility] Comment on above: Performed By: #### B CID2 ####[facility] Suuorxufqo8[address] [place], [place] [address]Dr. Flaco Lawrence Hao/B Resist. Gene Not detected Normal NOT DETECTED [facility] Comment on above: Performed By: #### B CID2 ####[facility] Gtvnzcizdm2370[address] [place], [place] [address]Dr. Flaco Lawrence VIM Resistant Gene Not Applicable Normal NOT DETECTED [facility] Comment on above: Performed By: #### B CID2 ####[facility] Cgkmrrlxsz039[address] [place], [place] [address]Dr. Flaco Lawrence CBC AUTO DIFFon 02-10-2023 BASO # 0.0 103/ul Normal 0.0-0.1 [facility] Comment on above: Performed By: #### C BC ####[facility] Tthjqhvzyu3212[address] [place], [place] [address]Dr. Flaco Lawrence Basophils/100 WBC (Bld) 0.5 % Normal 0.2-2.0 [facility] Comment on above: Performed By: #### C BC ####[facility] Bcxsztsxld[address] [place], [place] [address]Dr. Flaco Lawrence EO # 0.1 103/ul Normal 0.0-0.7 [facility] Comment on above: Performed By: #### C BC ####[facility] Vyrfbjdixn[address] [place], [place] [address]Dr. Flaco Lawrence Eosinophils/100 WBC (Bld) 1.1 % Normal 0.9-7.0 [facility] Comment on above: Performed By: #### C BC ####[facility] Kbrywwdxne1327[address] [place], [place] [address]Dr. Flaco Lawrence Erythrocyte distribution width (RBC) [Ratio] 16.0 % Critically high 11.0-15.0 [facility] Comment on above: Performed By: #### C BC ####[facility] Jojhmsmorn8[address] [place], [place] [address]Dr. Flaco Lawrence Hematocrit (Bld) [Volume fraction] 40.1 % Critically low 42.0-54.0 [facility] Comment on above: Performed By: #### C BC ####[facility] Hsccdizwbm7[address] [place], [place] [address]Dr. Flaco Lawrence Hemoglobin (Bld) [Mass/Vol] 13.2 g/dL Critically low 14.0-18.0 [facility] Comment on above: Performed By: #### C BC ####[facility] Lqdrvkpgcl16[address] [place], [place] [address]Dr. Flaco Lawrence IG # 0.01 10e3/ul Normal 0.00-0.03 [facility] Comment on above: Performed By: #### C BC ####[facility] Cdpmzvnoxn[address] [place], [place] [address]Dr. Flaco Lawrence IG % 0.2 % Normal 0.0-0.5 [facility] Comment on above: Performed By: #### C BC ####[facility] Nwpkgglxej04[address] [place], [place] [address]Dr. Flaco Lawrence LYMPH # 1.8 103/ul Normal 1.2-3.8 [facility] Comment on above: Performed By: #### C BC ####[facility] Zrtlrhagrb0866[address] [place], [place] [address]Dr. Flaco Lawrence Lymphocytes/100 WBC (Bld) 28.1 % Normal 20.5-60.0 [facility] Comment on above: Performed By: #### C BC ####[facility] Hswmjbzmdk63[address] [place], [place] [address]Dr. Flaco Lawrence MANUAL DIFF REQ NO Normal [facility] Comment on above: Performed By: #### C BC ####[facility] Qduinbwlkg[address] [place] [address]Dr. Flaco Lawrence MCH (RBC) [Entitic mass] 28.0 pg Normal 25.9-34.0 [facility] Comment on above: Performed By: #### C BC ####[facility] Tcaeingqux[address] [place] [address]Dr. Flaco Lawrence MCHC (RBC) [Mass/Vol] 32.9 g/dL Normal 29.9-35.2 [facility] Comment on above: Performed By: #### C BC ####[facility] Drppeitzni6939[address] [place], [place] [address]DrJeramie Lawrence MCV (RBC) [Entitic vol] 85.0 fL Normal 80.0-94.0 [facility] Comment on above: Performed By: #### C BC ####[facility] Sdtqjzycel[address] [place], [place] [address]DrJeramie Lawrence MONO # 0.5 103/ul Normal 0.3-0.8 [facility] Comment on above: Performed By: #### C BC ####[facility] Fruffavmdh5[address] [place], [place] [address]DrJeramie Lawrence Monocytes/100 WBC (Bld) 7.2 % Normal 1.7-12.0 [facility] Comment on above: Performed By: #### C BC ####[facility] Tonxjmmmoo[address] [place], [place] [address]DrJeramie Lawrence NEUT # 4.1 103/ul Normal 1.4-6.5 [facility] Comment on above: Performed By: #### C BC ####[facility] Jlegwdmfuf264[address] [place], [place] [address]DrJeramie Lawrence Neutrophils/100 WBC (Bld) 62.9 % Normal 43.0-75.0 [facility] Comment on above: Performed By: #### C BC ####[facility] Cbedftrfjy[address] [place], [place] [address]DrJeramie Lawrence Platelet mean volume (Bld) [Entitic vol] 10.7 fL Normal 9.5-13.5 [facility] Comment on above: Performed By: #### C BC ####[facility] [address]ltixs[address] [place] [address]Dr. Flaco Lawrence PLT 180 103/ul Normal 150-450 [facility] Comment on above: Performed By: #### C BC ####[facility] Cypuebdgvy[address] [place] [address]Dr. Flaco Lawrence RBC 4.72 106/ul Normal 4.70-6.10 [facility] Comment on above: Performed By: #### C BC ####[facility] Dsxmxsztos2634 [place] [address]Dr. Flaco Lawrence WBC 6.5 103/ul Normal 4.0-11.0 [facility] Comment on above: Performed By: #### C BC ####[facility] Kfmtgffnpa0404 [place] [address]DrJeramie Lawrence PROF 14(COMP METB)on 023 Albumin [Mass/Vol] 2.8 g/dL Critically low 3.4-5.0 [facility] Comment on above: Performed By: #### C MP ####[facility] Wcgindvtry[address] [place], [place] [address]DrJeramie Lawrence Albumin/Globulin [Mass ratio] 1.2 {ratio} Normal [facility] Comment on above: Performed By: #### C MP ####[facility] [address]vhdlktb[address] [place] [address]Dr. Flaco Lawrence ALP [Catalytic activity/Vol] 71 U/L Normal 46-116 [facility] Comment on above: Performed By: #### C MP ####[facility] Nlssdqlwmz38[address] [place] [address]DrJeramie Lawrence ALT [Catalytic activity/Vol] 9 U/L Critically low 16-63 [facility] Comment on above: Performed By: #### C MP ####[facility] Liwwlxbvor3570 [place] [address]DrJeramie Lawrence Anion gap [Moles/Vol] 11.5 mmol/L Normal Th [facility] Comment on above: Performed By: #### C MP ####[facility] Hkjtayretv65[address] [place] [address]Dr. Flaco Lawrence AST [Catalytic activity/Vol] 13 U/L Critically low 15-37 [facility] Comment on above: Performed By: #### C MP ####[facility] Auugonjgno28[address] [place] [address]Dr. Flaco Lawrence Bilirubin [Mass/Vol] 1.4 mg/dL Critically high 0.2-1.0 [facility] Comment on above: Performed By: #### C MP ####[facility] Tpqjgubejd40[address] [place] [address]Dr. Flaco Lawrence Calcium [Mass/Vol] 7.9 mg/dL Critically low 8.5-10.1 Th [facility] Comment on above: Performed By: #### C MP ####[facility] Jtmmjqjmkh4[address] [place], [place] [address]Dr. Flaco Lawrence Chloride [Moles/Vol] 110 mmol/L Critically high 98-107 [facility] Comment on above: Performed By: #### C MP ####[facility] Ykaghrptqd17[address] [place], [place] [address]Dr. Flaco Lawrence CO2 [Moles/Vol] 26.4 mmol/L Normal 21.0-32.0 [facility] Comment on above: Performed By: #### C MP ####[facility] Ewrikxqbyw384[address] [place], [place] [address]Dr. Flaco Lawrence Creatinine [Mass/Vol] 1.35 mg/dL Critically high 0.70-1.30 [facility] Comment on above: Performed By: #### C MP ####[facility] Jbfyzlsqaz2385[address] [place], [place] [address]Dr. Flaco Lawrence EGFR-AF SERBIAN >60 Normal >=60 [facility] Comment on above: Performed By: #### C MP ####[facility] Dtuixadcox3736[address] [place], [place] [address]Dr. Flaco Lawrence EGFR-NON AF SERBIAN 52 mL/min/1.73m2 Critically low >=60 [facility] Comment on above: Performed By: #### C MP ####[facility] Nempldpnyp35[address] [place] [address]Dr. Flaco Lawrence Globulin (S) [Mass/Vol] 2.4 g/dL Normal [facility] Comment on above: Performed By: #### C MP ####[facility] Ijyzgdpeoo05[address] [place] [address]Dr. Flaco Lawrence Glucose [Mass/Vol] 90 mg/dL Normal 74-106 [facility] Comment on above: Performed By: #### C MP ####[facility] Ozlslcvkgs77[address] [place] [address]Dr. Flaco Lawrence Potassium [Moles/Vol] 2.8 mmol/L Critically low 3.5-5.1 [facility] Comment on above: Performed By: #### C MP ####[facility] Cardiattlt1486[address] [place], [place] [address]Dr. Flaco Lawrence Protein [Mass/Vol] 5.2 g/dL Critically low 6.4-8.2 [facility] Comment on above: Performed By: #### C MP ####[facility] Suqtlyrbth[address] [place] [address]Dr. Flaco Lawrence Sodium [Moles/Vol] 143 mmol/L Normal 136-145 [facility] Comment on above: Performed By: #### C MP ####[facility] Xgeeujoxiy37[address] [place] [address]Dr. Flaco Branden Urea nitrogen [Mass/Vol] 13.0 mg/dL Normal 7.0-18.0 [facility] Comment on above: Performed By: #### C MP ####[facility] Tekgdepqej3570[address] [place], [place] [address]Dr. Flaco Branden Urea nitrogen/Creatinine [Mass ratio] 9.6 mg/mg Normal [facility] Comment on above: Performed By: #### C MP ####[facility] Kpgiwszpap75[address] [place] [address]Dr. Purviedith Lawrence AMMONIAon 02-09-2023 Ammonia (P) [Mass/Vol] ug/dL Critically low 11-32 [facility] Comment on above: Performed By: #### A MM ####[facility] Aiwqazfqbx7[address] [place] [address]Dr. Flaco Lawrence CBC AUTO DIFFon 02-09-2023 BASO # 0.0 103/ul Normal 0.0-0.1 [facility] Comment on above: Performed By: #### C BC ####[facility] Puggwecbln6[address] [place] [address]Dr. Flaco Branden Basophils/100 WBC (Bld) 0.6 % Normal 0.2-2.0 [facility] Comment on above: Performed By: #### C BC ####[facility] Txmyalkhme9527[address] [place], [place] [address]Dr. Flaco Branden EO # 0.0 103/ul Normal 0.0-0.7 [facility] Comment on above: Performed By: #### C BC ####[facility] Btmnunugbd245237 [address] [place], [place] [address]Dr. Purviedith Lawrence Eosinophils/100 WBC (Bld) 0.8 % Critically low 0.9-7.0 [facility] Comment on above: Performed By: #### C BC ####[facility] Ycgdotsjjk236[address] [place], [place] [address]Dr. Flaco Lawrence Erythrocyte distribution width (RBC) [Ratio] 15.9 % Critically high 11.0-15.0 [facility] Comment on above: Performed By: #### C BC ####[facility] Frdivvvkxv0554[address] [place], [place] [address]Dr. Flaco Branden Hematocrit (Bld) [Volume fraction] 40.6 % Critically low 42.0-54.0 [facility] Comment on above: Performed By: #### C BC ####[facility] Atflaaygiv8198[address] [place], [place] [address]Dr. Flaco Branden Hemoglobin (Bld) [Mass/Vol] 13.1 g/dL Critically low 14.0-18.0 [facility] Comment on above: Performed By: #### C BC ####[facility] Bozmnhjxke[address] [place], [place] [id number]. Flaco Lawrence IG # 0.01 10e3/ul Normal 0.00-0.03 [facility] Comment on above: Performed By: #### C BC ####[facility] Queutaflzf60[address] [place] [address]Dr. Flaco Lawrence IG % 0.2 % Normal 0.0-0.5 [facility] Comment on above: Performed By: #### C BC ####[facility] Hwtpgncssw0[address] [place] [address]DrJeramie Lawrence LYMPH # 1.3 103/ul Normal 1.2-3.8 [facility] Comment on above: Performed By: #### C BC ####[facility] Hsapvbwlue3135[address] [place], [place] [address]DrJeramie Lawrence Lymphocytes/100 WBC (Bld) 26.3 % Normal 20.5-60.0 [facility] Comment on above: Performed By: #### C BC ####[facility] Mjvcgcrkcx512[address] [place], [place] [address]DrJeramie Lawrence MANUAL DIFF REQ NO Normal [facility] Comment on above: Performed By: #### C BC ####[facility] Zodlknbvxp2744[address] [place], [place] [address]DrJeramie Lawrence MCH (RBC) [Entitic mass] 27.5 pg Normal 25.9-34.0 [facility] Comment on above: Performed By: #### C BC ####[facility] Udjdxconom6729[address] [place], [place] [address]DrJeramie Lawrence MCHC (RBC) [Mass/Vol] 32.3 g/dL Normal 29.9-35.2 [facility] Comment on above: Performed By: #### C BC ####[facility] Eucpdumrdz3876[address] [place], [place] [address]DrJeramie Lawrence MCV (RBC) [Entitic vol] 85.3 fL Normal 80.0-94.0 [facility] Comment on above: Performed By: #### C BC ####[facility] Nutqeyjeyp2290[address] [place], [place] [address]DrJeramie Lawrence MONO # 0.4 103/ul Normal 0.3-0.8 [facility] Comment on above: Performed By: #### C BC ####[facility] Hztfiqtslm7934 [place] [address]DrJeramie Lawrence Monocytes/100 WBC (Bld) 7.6 % Normal 1.7-12.0 [facility] Comment on above: Performed By: #### C BC ####[facility] Pytmunibgm6976[address] [place], [place] [address]DrJeramie Lawrence NEUT # 3.2 103/ul Normal 1.4-6.5 [facility] Comment on above: Performed By: #### C BC ####[facility] Vytugbgvrz23[address] [place] [address]DrJeramie Flaco Lawrence Neutrophils/100 WBC (Bld) 64.5 % Normal 43.0-75.0 [facility] Comment on above: Performed By: #### C BC ####[facility] Cvdbsjrarp017[address] [place], [place] [address]DrJeramie Flaco Lawrence Platelet mean volume (Bld) [Entitic vol] 10.6 fL Normal 9.5-13.5 [facility] Comment on above: Performed By: #### C BC ####[facility] Tatphadtyc8623[address] [place], [place] [address]Dr. Flaco Lawrence PLT 195 103/ul Normal 150-450 [facility] Comment on above: Performed By: #### C BC ####[facility] Zuxrlzvdrk5258[address] [place], [place] [address]DrJeramie Flaco Lawrence RBC 4.76 106/ul Normal 4.70-6.10 [facility] Comment on above: Performed By: #### C BC ####[facility] Gbzysvnzyg820[address] [place], [place] [address]DrJeramie Flaco Lawrence WBC 5.0 103/ul Normal 4.0-11.0 [facility] Comment on above: Performed By: #### C BC ####[facility] Eihipwnnyz1233[address] [place], [place] [address]DrJeramie Lawrence PROF 14(COMP METB)on 023 Albumin [Mass/Vol] 3.0 g/dL Critically low 3.4-5.0 Th [facility] Comment on above: Performed By: #### C MP ####[facility] Zduskgkxuw23[address] [place] [address]Dr. Flaco Lawrence Albumin/Globulin [Mass ratio] 1.2 {ratio} Normal [facility] Comment on above: Performed By: #### C MP ####[facility] Riutnvgwzh7066[address] [place], [place] [address]Dr. Flaco Lawrence ALP [Catalytic activity/Vol] 67 U/L Normal 46-116 [facility] Comment on above: Performed By: #### C MP ####[facility] Gfbyqcogth4933[address] [place], [place] [address]Dr. Flaco Lawrence ALT [Catalytic activity/Vol] 7 U/L Critically low 16-63 [facility] Comment on above: Performed By: #### C MP ####[facility] Nqimwteufm1232[address] [place], [place] [address]Dr. Flaco Lawrence Anion gap [Moles/Vol] 12.8 mmol/L Normal Th [facility] Comment on above: Performed By: #### C MP ####[facility] Vecpsjrsrc486237 [address] [place], [place] [address]Dr. Flaco Lawrence AST [Catalytic activity/Vol] 16 U/L Normal 15-37 [facility] Comment on above: Performed By: #### C MP ####[facility] Upmwzxnbts5636[address] [place], [place] [address]Dr. Flaco Lawrence Bilirubin [Mass/Vol] 2.1 mg/dL Critically high 0.2-1.0 [facility] Comment on above: Performed By: #### C MP ####[facility] Veiflqxxnj9256[address] [place], [place] [address]Dr. Flaco Lawrence Calcium [Mass/Vol] 8.1 mg/dL Critically low 8.5-10.1 [facility] Comment on above: Performed By: #### C MP ####[facility] Bndzugucoi8835[address] [place], [place] [address]Dr. Flaco Lawrence Chloride [Moles/Vol] 110 mmol/L Critically high 98-107 [facility] Comment on above: Performed By: #### C MP ####[facility] Qfyrjdtyri1917 [place] [address]Dr. Purviedith Branden CO2 [Moles/Vol] 26.0 mmol/L Normal 21.0-32.0 [facility] Comment on above: Performed By: #### C MP ####[facility] Sowuhrwast0135[address] [place], [place] [address]Dr. Flaco Lawrence Creatinine [Mass/Vol] 1.43 mg/dL Critically high 0.70-1.30 [facility] Comment on above: Performed By: #### C MP ####[facility] Xzmlfeptzq1146[address] [place], [place] [address]Dr. Flaco Lawrence EGFR-AF SERBIAN 59 mL/min/1.73m2 Critically low >=60 [facility] Comment on above: Performed By: #### C MP ####[facility] Ocsbnybcfg759[address] [place], [place] [address]Dr. Flaco Lawrence EGFR-NON AF SERBIAN 49 mL/min/1.73m2 Critically low >=60 [facility] Comment on above: Performed By: #### C MP ####[facility] Bdvzenfbhm8824[address] [place], [place] [address]Dr. Flaco Lawrence Globulin (S) [Mass/Vol] 2.4 g/dL Normal [facility] Comment on above: Performed By: #### C MP ####[facility] Gygfkkmqsm050[address] [place], [place] [address]Dr. Flaco Lawrence Glucose [Mass/Vol] 77 mg/dL Normal 74-106 [facility] Comment on above: Performed By: #### C MP ####[facility] Pdbcbdwyol8976[address] [place], [place] [address]Dr. Flaco Lawrence Potassium [Moles/Vol] 2.8 mmol/L Critically low 3.5-5.1 [facility] Comment on above: Performed By: #### C MP ####[facility] Qazavvjblh9464[address] [place], [place] [address]Dr. Flaco Lawrence Protein [Mass/Vol] 5.4 g/dL Critically low 6.4-8.2 [facility] Comment on above: Performed By: #### C MP ####[facility] Hnvlilyyyc4174 [place] [address]Dr. Flaco Lawrence Sodium [Moles/Vol] 145 mmol/L Normal 136-145 [facility] Comment on above: Performed By: #### C MP ####[facility] Csptxzjdyl414137 [address] [place], [place] [address]Dr. Flaco Lawrence Urea nitrogen [Mass/Vol] 8.0 mg/dL Normal 7.0-18.0 [facility] Comment on above: Performed By: #### C MP ####[facility] Lnlkhaefln469137 [address] [place], [place] [address]Dr. Flaco Lawrence Urea nitrogen/Creatinine [Mass ratio] 5.6 mg/mg Normal [facility] Comment on above: Performed By: #### C MP ####[facility] Hoxlrxqawr355137 [address] [place], [place] [address]Dr. Flaco Lawrence T4on 02-09-2023 T4 [Mass/Vol] 7.10 ug/dL Normal 4.50-12.10 [facility] Comment on above: Performed By: #### T SH, T4 ####[facility] Vwybuwmqcg3164[address] [place], [place] [address]Dr. Flaco Lawrence TSHon 02-09-2023 TSH 0.633 uIU/mL Normal 0.358-3.740 [facility] Comment on above: Performed By: #### T SH, T4 ####[facility] Iqblsogfdm2814[address] [place], [place] [address]Dr. Flaco Lawrence US SINGLE QUAD RT UPPERon US SINGLE QUAD RT UPPER Normal [facility] AMYLASEon 02-08-2023 Amylase [Catalytic activity/Vol] 41 U/L Normal 25-115 [facility] Comment on above: Performed By: #### A MY, LIPA, CMP ####[facility] Lwopnkesxn432[address] [place], [place] [address]Dr. Flaco Lawrence CBC AUTO DIFFon 02-08-2023 BASO # 0.0 103/ul Normal 0.0-0.1 [facility] Comment on above: Performed By: #### C BC ####[facility] Whtqdzouos45[address] [place] [address]Dr. Flaco Branden Basophils/100 WBC (Bld) 0.7 % Normal 0.2-2.0 [facility] Comment on above: Performed By: #### C BC ####[facility] Ovvnrtqnsn078837 [address] [place], [place] [address]Dr. Purviedith Branden EO # 0.0 103/ul Normal 0.0-0.7 [facility] Comment on above: Performed By: #### C BC ####[facility] Cpjekgffdu128337 [address] [place], [place] [address]Dr. Flaco Lawrence Eosinophils/100 WBC (Bld) 0.5 % Critically low 0.9-7.0 [facility] Comment on above: Performed By: #### C BC ####[facility] Ypoumtfskz0104[address] [place], [place] [address]Dr. Flaco Lawrence Erythrocyte distribution width (RBC) [Ratio] 15.9 % Critically high 11.0-15.0 [facility] Comment on above: Performed By: #### C BC ####[facility] Euitasmwms3929[address] [place], [place] [address]Dr. Flaco Lawrence Hematocrit (Bld) [Volume fraction] 46.1 % Normal 42.0-54.0 [facility] Comment on above: Performed By: #### C BC ####[facility] Yfahtzvosn1087[address] [place], [place] [address]Dr. Flaco Lawrence Hemoglobin (Bld) [Mass/Vol] 15.2 g/dL Normal 14.0-18.0 [facility] Comment on above: Performed By: #### C BC ####[facility] Bmfqtupxpy5225[address] [place], [place] [address]Dr. Flaco Lawrence IG # 0.02 10e3/ul Normal 0.00-0.03 [facility] Comment on above: Performed By: #### C BC ####[facility] Vgfswttwhv4109[address] [place], [place] [address]Dr. Flaco Lawrence IG % 0.3 % Normal 0.0-0.5 [facility] Comment on above: Performed By: #### C BC ####[facility] Mzkfqcejyy8616 [place] [address]DrJeramie Lawrence LYMPH # 1.5 103/ul Normal 1.2-3.8 [facility] Comment on above: Performed By: #### C BC ####[facility] Ftpatonkqq0475 [place] [address]DrJeramie Lawrence Lymphocytes/100 WBC (Bld) 26.1 % Normal 20.5-60.0 [facility] Comment on above: Performed By: #### C BC ####[facility] Ftqfmsednz9033[address] [place], [place] [address]DrJeramie Lawrence MANUAL DIFF REQ NO Normal [facility] Comment on above: Performed By: #### C BC ####[facility] Jscjxywrth495[address] [place], [place] [address]Dr. Flaco Lawrence MCH (RBC) [Entitic mass] 27.9 pg Normal 25.9-34.0 [facility] Comment on above: Performed By: #### C BC ####[facility] Vehkzrqgsm862[address] [place], [place] [address]DrJeramie Purviedith Lawrence MCHC (RBC) [Mass/Vol] 33.0 g/dL Normal 29.9-35.2 [facility] Comment on above: Performed By: #### C BC ####[facility] Dhkijivrep7236[address] [place], [place] [address]DrJeramie Lawrence MCV (RBC) [Entitic vol] 84.6 fL Normal 80.0-94.0 [facility] Comment on above: Performed By: #### C BC ####[facility] Izptdnnxpe232[address] [place], [place] [address]DrJeramie Lawrence MONO # 0.6 103/ul Normal 0.3-0.8 [facility] Comment on above: Performed By: #### C BC ####[facility] Kuowrmlpsh067[address] [place], [place] [address]DrJeramie Lawrence Monocytes/100 WBC (Bld) 9.6 % Normal 1.7-12.0 [facility] Comment on above: Performed By: #### C BC ####[facility] Lxyvdnidyt8974[address] [place], [place] [address]Dr. Flaco Lawrence NEUT # 3.7 103/ul Normal 1.4-6.5 [facility] Comment on above: Performed By: #### C BC ####[facility] Umtlpgfwvn8889[address] [place], [place] [address]Dr. Flaco Lawrence Neutrophils/100 WBC (Bld) 62.8 % Normal 43.0-75.0 [facility] Comment on above: Performed By: #### C BC ####[facility] Icwplnojnj8215[address] [place], [place] [address]Dr. Flaco Lawrence Platelet mean volume (Bld) [Entitic vol] 10.6 fL Normal 9.5-13.5 [facility] Comment on above: Performed By: #### C BC ####[facility] Fxbfoydvmn6314[address] [place], [place] [address]Dr. Flaco Lawrence PLT 255 103/ul Normal 150-450 [facility] Comment on above: Performed By: #### C BC ####[facility] Ncyuphquho8925[address] [place], [place] [address]Dr. Flaco Lawrence RBC 5.45 106/ul Normal 4.70-6.10 [facility] Comment on above: Performed By: #### C BC ####[facility] Ybnfcvvcoe[address] [place], [place] [address]Dr. Flaco Lawrence WBC 5.8 103/ul Normal 4.0-11.0 [facility] Comment on above: Performed By: #### C BC ####[facility] Nyqlgidhje90[address] [place], [place] [address]Dr. Flaco Lawrence CULTURE BLOODon 02-08-2023 Microscopic examination of blood, culture Culture Observations: NO GROWTH AT 36-48 HOURS. FINAL TO FOLLOW. Normal [facility] Comment on above: Performed By: #### B LDCX1 ####[facility] Tbbvxfkdlc7158[address] [place], [place] [address]Dr. Flaco Branden ER URINE PROFILEon 3 Bilirubin Ql (U) Negative Normal NEGATIVE [facility] Comment on above: Performed By: #### E RUR ####[facility] Uepurmaiei3915[address] [place], [place] [address]Dr. Flaco Lawrence Clarity (U) CLEAR Normal CLEAR [facility] Comment on above: Performed By: #### E RUR ####[facility] Gujmtwckem9280[address] [place], [place] [address]Dr. Purviedith Lawrence Color (U) YELLOW Normal YELLOW [facility] Comment on above: Performed By: #### E RUR ####[facility] Mgfhfdrrdh1223[address] [place], [place] [address]Dr. Flaco Lawrence ERUAHD A micrscopic examination will be performed if indicated. Normal [facility] Comment on above: Performed By: #### E RUR ####[facility] Yijwoldrck855[address] [place], [place] [address]Dr. Flaco Lawrence Glucose Ql (U) Negative Normal NEGATIVE [facility] Comment on above: Performed By: #### E RUR ####[facility] Ruzlyrbjuh528[address] [place], [place] [address]Dr. Flaco Lawrence Hemoglobin Ql (U) Negative Normal NEGATIVE [facility] Comment on above: Performed By: #### E RUR ####[facility] Tpjxpmdfgu65[address] [place], [place] [address]Dr. Flaco Lawrence Ketones Ql (U) 15 mg/dl Abnormal NEGATIVE [facility] Comment on above: Performed By: #### E RUR ####[facility] Mzrgflaatb8134[address] [place], [place] [address]Dr. Flaco Lawrence LEUKOCYTES Negative Normal NEGATIVE [facility] Comment on above: Performed By: #### E RUR ####[facility] Pzwjkshsoh18[address] [place], [place] [address]Dr. Flaco Lawrence Nitrite Ql (U) Negative Normal NEGATIVE [facility] Comment on above: Performed By: #### E RUR ####[facility] Obkgrzonfb0569[address] [place], [place] [address]Dr. Flaco Lawrence pH (U) 6.5 [pH] Normal 5-9 [facility] Comment on above: Performed By: #### E RUR ####[facility] Vrxsmtkgdm[address] [place] [address]Dr. Flaco Lawrence SPEC GRAVITY 1.010 Normal 1.005-<=1.02 5 [facility] Comment on above: Performed By: #### E RUR ####[facility] Sfsflzhsfi[address] [place] [address]Dr. Flaco Lawrence UA PROTEIN Negative Normal NEGATIVE/ TRACE [facility] Comment on above: Performed By: #### E RUR ####[facility] Vofhhpitlh[address] [place] [address]Dr. Flaco Lawrence UR MICRO IND NOT INDICATED Normal [facility] Comment on above: Performed By: #### E RUR ####[facility] Vphndupvdr40[address] [place] [address]Dr. Flaco Lawrence Urobilinogen Qn (U) 2.0 {Tuan'U}/dL Abnormal 0.2 - 1. 0 [facility] Comment on above: Performed By: #### E RUR ####[facility] Qnjxasgbbf[address] [place] [address]Dr. Flaco Lawrence LIPASEon 02-08-2023 Lipase [Catalytic activity/Vol] 280.0 U/L Normal 73.0-393.0 [facility] Comment on above: Performed By: #### A RICCARDO LIPA, CMP ####[facility] [address]frfkfizdf[address] [place] [address]Dr. Flaco Lawrence PROF 14(COMP METB)on 023 Albumin [Mass/Vol] 3.5 g/dL Normal 3.4-5.0 [facility] Comment on above: Performed By: #### A RICCARDO LIPA, CMP ####[facility] [address]lq[address] [place] [address]Dr. Flaco Lawrence Albumin/Globulin [Mass ratio] 1.2 {ratio} Normal [facility] Comment on above: Performed By: #### A RICCARDO LIPA, CMP ####[facility] Eeb[address]rmzhd[address] [place] [address]Dr. Flaco Lawrence ALP [Catalytic activity/Vol] 81 U/L Normal 46-116 [facility] Comment on above: Performed By: #### A MY LIPA, CMP ####[facility] [facility] Sijaafwxvf[address] [place] [address]Dr. Flaco Lawrence ALT [Catalytic activity/Vol] 7 U/L Critically low 16-63 [facility] Comment on above: Performed By: #### A MY, LIPA, CMP ####[facility] Ivjsesdxth[address] [place] [address]Dr. Flaco Lawrence Anion gap [Moles/Vol] 10.3 mmol/L Normal [facility] Comment on above: Performed By: #### A MY, LIPA, CMP ####[facility] Mpowtymine[address] [place], [place] [address]Dr. Flaco Lawrence AST [Catalytic activity/Vol] 20 U/L Normal 15-37 [facility] Comment on above: Performed By: #### A MY, LIPA, CMP ####[facility] Ieehzbpgbb9[address] [place] [address]Dr. Flaco Lawrence Bilirubin [Mass/Vol] 3.1 mg/dL Critically high 0.2-1.0 [facility] Comment on above: Performed By: #### A MY, LIPA, CMP ####[facility] Pagmmssxuv3046[address] [place], [place] [address]Dr. Flaco Lawrence Calcium [Mass/Vol] 8.7 mg/dL Normal 8.5-10.1 [facility] Comment on above: Performed By: #### A MY, LIPA, CMP ####[facility] Bryndvdjng[address] [place] [address]Dr. Flaco Lawrence Chloride [Moles/Vol] 103 mmol/L Normal 98-107 [facility] Comment on above: Performed By: #### A MY, LIPA, CMP ####[facility] Wewatuzezx37[address] [place] [address]Dr. Flaco Lawrence CO2 [Moles/Vol] 30.5 mmol/L Normal 21.0-32.0 [facility] Comment on above: Performed By: #### A RICCARDO LIPA, CMP ####[facility] Hmqeozmmof[address] [place] [address]Dr. Flaco Lawrence Creatinine [Mass/Vol] 1.81 mg/dL Critically high 0.70-1.30 [facility] Comment on above: Performed By: #### A RICCARDO LIPA, CMP ####[facility] Ajxwpqbajq9[address] [place], [place] [address]Dr. Flaco Lawrence EGFR-AF SERBIAN 45 mL/min/1.73m2 Critically low >=60 [facility] Comment on above: Performed By: #### A RICCARDO LIPA, CMP ####[facility] Eluljpidlf9464[address] [place], [place] [address]Dr. Flaco Lawrence EGFR-NON AF SERBIAN 37 mL/min/1.73m2 Critically low >=60 [facility] Comment on above: Performed By: #### A RICCARDO LIPA, CMP ####[facility] Ldzphrbkwj59[address] [place], [place] [address]Dr. Flaco Lawrence Globulin (S) [Mass/Vol] 3.0 g/dL Normal [facility] Comment on above: Performed By: #### A RICCARDO LIPA, CMP ####[facility] Myuaodyktc8[address] [place], [place] [address]Dr. Flaco Lawrence Glucose [Mass/Vol] 94 mg/dL Normal 74-106 [facility] Comment on above: Performed By: #### A RICCARDO LIPA, CMP ####[facility] Cdlrdmsoki2058[address] [place], [place] [address]Dr. Flaco Lawrence Potassium [Moles/Vol] 2.5 mmol/L Critically low 3.5-5.1 [facility] Comment on above: Performed By: #### A MY LIPA, CMP ####[facility] Sgupsckrex1289[address] [place], [place] [address]Dr. Flaco Lawrence Protein [Mass/Vol] 6.5 g/dL Normal 6.4-8.2 [facility] Comment on above: Performed By: #### A MY LIPA, CMP ####[facility] Zzyzfklxrd3[address] [place] [address]Dr. Flaco Lawrence Sodium [Moles/Vol] 133 mmol/L Critically low 136-145 [facility] Comment on above: Performed By: #### A DEMOND GU, CMP ####[facility] Xtlnuznwhe9[address] [place] [address]Dr. Flaco Lawrence Urea nitrogen [Mass/Vol] 10.0 mg/dL Normal 7.0-18.0 [facility] Comment on above: Performed By: #### A DEMOND GU, CMP ####[facility] Knelgntksn45[address] [place], [place] [address]Dr. Flaco Lawrence Urea nitrogen/Creatinine [Mass ratio] 5.5 mg/mg Normal [facility] Comment on above: Performed By: #### A DEMOND GU, CMP ####[facility] Cfivmfomtj224[address] [place], [place] [address]Dr. Flaco Lawrence PROF CHEM 8 (BAS METB)on Anion gap [Moles/Vol] 16.8 mmol/L Normal [facility] Comment on above: Performed By: #### B MP ####[facility] Emxjmjojzb1740[address] [place], [place] [address]Dr. Flaco Lawrence Calcium [Mass/Vol] 8.5 mg/dL Normal 8.5-10.1 [facility] Comment on above: Performed By: #### B MP ####[facility] Tfcbzcujct8164[address] [place], [place] [address]Dr. Flaco Lawrence Chloride [Moles/Vol] 107 mmol/L Normal 98-107 [facility] Comment on above: Performed By: #### B MP ####[facility] Sgfdpudcro8034[address] [place], [place] [address]Dr. Flaco Lawrence CO2 [Moles/Vol] 25.0 mmol/L Normal 21.0-32.0 [facility] Comment on above: Performed By: #### B MP ####[facility] Slfhxdmbhl4530[address] [place], [place] [address]Dr. Flaco Lawrence Creatinine [Mass/Vol] 1.62 mg/dL Critically high 0.70-1.30 [facility] Comment on above: Performed By: #### B MP ####[facility] Kusgjvnnid8[address] [place] [address]Dr. Flaco Lawrence EGFR-AF SERBIAN 51 mL/min/1.73m2 Critically low >=60 [facility] Comment on above: Performed By: #### B MP ####[facility] Tbjrlcbgup8548 [place] [address]Dr. Falco Lawrence EGFR-NON AF SERBIAN 42 mL/min/1.73m2 Critically low >=60 [facility] Comment on above: Performed By: #### B MP ####[facility] Udmcmwkjnb6125[address] [place], [place] [address]Dr. Flaco Lawrence Glucose [Mass/Vol] 73 mg/dL Critically low 74-106 [facility] Comment on above: Performed By: #### B MP ####[facility] Okpgnobmzv8969[address] [place], [place] [address]Dr. Flaco Lawrence Potassium [Moles/Vol] 3.8 mmol/L Normal 3.5-5.1 [facility] Comment on above: Performed By: #### B MP ####[facility] Fiaxdbrrox9599[address] [place], [place] [address]Dr. Flaco Lawrence Sodium [Moles/Vol] 145 mmol/L Normal 136-145 [facility] Comment on above: Performed By: #### B MP ####[facility] Rkxgyostbr5574[address] [place], [place] [address]Dr. Flaco Lawrence Urea nitrogen [Mass/Vol] 10.0 mg/dL Normal 7.0-18.0 [facility] Comment on above: Performed By: #### B MP ####[facility] Xkyfjdeivn[address] [place], [place] [address]Dr. Flaco Lawrence Urea nitrogen/Creatinine [Mass ratio] 6.2 mg/mg Normal [facility] Comment on above: Performed By: #### B MP ####[facility] Dpuebvykfe7236[address] [place], [place] [address]Dr. Flaco Lawrence XR CHEST 1 Von 02-08-2023 XR CHEST 1 V Normal [facility] XR FOOT RT MIN 3 VIEWSon XR FOOT RT MIN 3 VIEWS Normal [facility] CBC AUTO DIFFon 11-18-2022 BASO # 0.1 103/ul Normal 0.0-0.1 [facility] Comment on above: Performed By: #### C BC ####[facility] Fvbgjfoyei37[address] [place] [address]Dr. Flaco Lawrence Basophils/100 WBC (Bld) 0.6 % Normal 0.2-2.0 [facility] Comment on above: Performed By: #### C BC ####[facility] Ruxjzxlnme7428[address] [place], [place] [address]Dr. Flaco Lawrence EO # 0.2 103/ul Normal 0.0-0.7 [facility] Comment on above: Performed By: #### C BC ####[facility] Mjbqbtkatf6320[address] [place], [place] [address]Dr. Flaco Lawrence Eosinophils/100 WBC (Bld) 1.5 % Normal 0.9-7.0 [facility] Comment on above: Performed By: #### C BC ####[facility] Bzmzrnibcg7148[address] [place], [place] [address]Dr. Flaco Lawrence Erythrocyte distribution width (RBC) [Ratio] 16.2 % Critically high 11.0-15.0 [facility] Comment on above: Performed By: #### C BC ####[facility] Oturycvafi057[address] [place], [place] [address]Dr. Flaco Lawrence Hematocrit (Bld) [Volume fraction] 35.1 % Critically low 42.0-54.0 [facility] Comment on above: Performed By: #### C BC ####[facility] Ukshkebamt[address] [place], [place] [address]Dr. Flaco Lawrence Hemoglobin (Bld) [Mass/Vol] 11.5 g/dL Critically low 14.0-18.0 [facility] Comment on above: Performed By: #### C BC ####[facility] Ujivcoizkc5127[address] [place], [place] [address]Dr. Flaco Lawrence IG # 0.05 10e3/ul Critically high 0.00-0.03 [facility] Comment on above: Performed By: #### C BC ####[facility] Bqtlipzfic[address] [place] [address]DrJeramie Flaco Branden IG % 0.5 % Normal 0.0-0.5 [facility] Comment on above: Performed By: #### C BC ####[facility] Hivzgnwpsc1424 [place] [address]DrJeramie Lawrence LYMPH # 2.1 103/ul Normal 1.2-3.8 [facility] Comment on above: Performed By: #### C BC ####[facility] Ckmwlkkcsn3722 [place] [address]DrJeramie Lawrence Lymphocytes/100 WBC (Bld) 20.5 % Normal 20.5-60.0 [facility] Comment on above: Performed By: #### C BC ####[facility] Wkvudahtut7988 [place] [address]DrJeramie Purviedith Lawrence MANUAL DIFF REQ NO Normal [facility] Comment on above: Performed By: #### C BC ####[facility] Csgdoarqdv2146 [place] [address]DrJeramie Flaco Branden MCH (RBC) [Entitic mass] 28.1 pg Normal 25.9-34.0 [facility] Comment on above: Performed By: #### C BC ####[facility] Ovwmqcvefm7[address] [place], [place] [address]DrJeramie Flaco Branden MCHC (RBC) [Mass/Vol] 32.8 g/dL Normal 29.9-35.2 [facility] Comment on above: Performed By: #### C BC ####[facility] Lwecahalbh46[address] [place] [address]DrJeramie Lawrence MCV (RBC) [Entitic vol] 85.8 fL Normal 80.0-94.0 [facility] Comment on above: Performed By: #### C BC ####[facility] Swyatnwmgd0862 [place] [address]DrJeramie Lawrence MONO # 1.2 103/ul Critically high 0.3-0.[address] [facility] Comment on above: Performed By: #### C BC ####[facility] Mrutppykds7145 [place] [address]Dr. Flaco Lawrence Monocytes/100 WBC (Bld) 11.5 % Normal 1.7-12.0 [facility] Comment on above: Performed By: #### C BC ####[facility] Hbllldmati4114 [place] [address]Dr. Flaco Lawrence NEUT # 6.5 103/ul Normal 1.4-6.5 [facility] Comment on above: Performed By: #### C BC ####[facility] Jfxqlzbysy5066 [place] [address]Dr. Flaco Lawrence Neutrophils/100 WBC (Bld) 65.4 % Normal 43.0-75.0 [facility] Comment on above: Performed By: #### C BC ####[facility] Widsiuvwjo4986 [place] [address]Dr. Flaco Lawrence Platelet mean volume (Bld) [Entitic vol] 10.3 fL Normal 9.5-13.5 [facility] Comment on above: Performed By: #### C BC ####[facility] Gvlykmdxjs80[address] [place], [place] [address]Dr. Flaco Lawrence PLT 399 103/ul Normal 150-450 [facility] Comment on above: Performed By: #### C BC ####[facility] Kicxnzotft3901 [place] [address]Dr. Flaco Lawrence RBC 4.09 106/ul Critically low 4.70-6.[address] [facility] Comment on above: Performed By: #### C BC ####[facility] Ytszibbkbi0481 [place] [address]Dr. Flaco Lawrence WBC 10.0 103/ul Normal 4.0-11.0 [facility] Comment on above: Performed By: #### C BC ####[facility] Bzssagykxs7348 [place] [address]DrJeramie Lawrence PROF 14(COMP METB)on 023 Albumin [Mass/Vol] 2.4 g/dL Critically low 3.4-5.0 [facility] Comment on above: Performed By: #### C MP ####[facility] Jmxpzemqbs1341 [place] [address]Dr. Flaco Branden Albumin/Globulin [Mass ratio] 0.6 {ratio} Normal [facility] Comment on above: Performed By: #### C MP ####[facility] Hgyragjuzu6456 [place] [address]Dr. Flaco Lawrence ALP [Catalytic activity/Vol] 130 U/L Critically high 46-116 [facility] Comment on above: Performed By: #### C MP ####[facility] Gnrhaquafa5793 [place] [address]Dr. Flaco Lawrence ALT [Catalytic activity/Vol] 12 U/L Critically low 16-63 [facility] Comment on above: Performed By: #### C MP ####[facility] Vbsexjljnx4764[address] [place], [place] [address]Dr. Flaco Lawrence Anion gap [Moles/Vol] 13.6 mmol/L Normal [facility] Comment on above: Performed By: #### C MP ####[facility] Vjkwcjcsnf0378[address] [place], [place] [address]Dr. Purviedith Lawrence AST [Catalytic activity/Vol] 27 U/L Normal 15-37 [facility] Comment on above: Performed By: #### C MP ####[facility] Xbiffrskuv5820[address] [place], [place] [address]Dr. Flaco Lawrence Bilirubin [Mass/Vol] 0.5 mg/dL Normal 0.2-1.0 [facility] Comment on above: Performed By: #### C MP ####[facility] Qatisebpxw4409 [place] [address]Dr. Flaco Lawrence Calcium [Mass/Vol] 9.2 mg/dL Normal 8.5-10.1 [facility] Comment on above: Performed By: #### C MP ####[facility] Zepezvpnva9546 [place] [address]Dr. Flaco Lawrence Chloride [Moles/Vol] 98 mmol/L Normal 98-107 [facility] Comment on above: Performed By: #### C MP ####[facility] Gfkluoxvss8244 [place] [id number]. Flaco Lawrence CO2 [Moles/Vol] 24.0 mmol/L Normal 21.0-32.0 [facility] Comment on above: Performed By: #### C MP ####[facility] Vlajvelpwu4246 [place] [id number]. Flaco Branden Creatinine [Mass/Vol] 1.67 mg/dL Critically high 0.70-1.30 [facility] Comment on above: Performed By: #### C MP ####[facility] Yvkdrftzdi9222 [place] [id number]. Flaco Branden EGFR-AF SERBIAN 49 mL/min/1.73m2 Critically low >=60 [facility] Comment on above: Performed By: #### C MP ####[facility] Ybadxrxefr1760 [place] [address]Dr. Flaco Branden EGFR-NON AF SERBIAN 41 mL/min/1.73m2 Critically low >=60 [facility] Comment on above: Performed By: #### C MP ####[facility] Xhuywbhlse6616 [place] [address]Dr. Flaco Lawrence Globulin (S) [Mass/Vol] 4.3 g/dL Normal [facility] Comment on above: Performed By: #### C MP ####[facility] Eawaxujdhp5749 [place] [id number]. Flaco Branden Glucose [Mass/Vol] 103 mg/dL Normal 74-106 [facility] Comment on above: Performed By: #### C MP ####[facility] Zxstpqphgy5950 [place] [id number]. Flaco Branden Potassium [Moles/Vol] 3.6 mmol/L Normal 3.5-5.1 [facility] Comment on above: Performed By: #### C MP ####[facility] Xfqjoycixp8919 [place] [id number]. Flaco Branden Protein [Mass/Vol] 6.7 g/dL Normal 6.4-8.2 [facility] Comment on above: Performed By: #### C MP ####[facility] Sqcfxfroaf8345[address] [place], [place] [address]Dr. Flaco Branden Sodium [Moles/Vol] 132 mmol/L Critically low 136-145 [facility] Comment on above: Performed By: #### C MP ####[facility] Oivqnklxzt1018[address] [place], [place] [address]Dr. Flaco Branden Urea nitrogen [Mass/Vol] 26.0 mg/dL Critically high 7.0-18.0 [facility] Comment on above: Performed By: #### C MP ####[facility] Gxjqumitkg6037[address] [place], [place] [address]Dr. Flaco Lawrence Urea nitrogen/Creatinine [Mass ratio] 15.6 mg/mg Normal [facility] Comment on above: Performed By: #### C MP ####[facility] Ikmdmiqjoy505337 [address] [place], [place] [address]Dr. Flaco Branden CBC AUTO DIFFon 11-17-2022 BASO # 0.0 103/ul Normal 0.0-0.1 [facility] Comment on above: Performed By: #### C BC ####[facility] Isxgmcotrz406[address] [place], [place] [address]Dr. Purviedith Lawrence Basophils/100 WBC (Bld) 0.4 % Normal 0.2-2.0 [facility] Comment on above: Performed By: #### C BC ####[facility] Qewdindmmc5245[address] [place], [place] [address]Dr. Flaco Branden EO # 0.0 103/ul Normal 0.0-0.7 [facility] Comment on above: Performed By: #### C BC ####[facility] Ovhhfklvxe1049[address] [place], [place] [address]Dr. Flaco Lawrence Eosinophils/100 WBC (Bld) 0.4 % Critically low 0.9-7.0 [facility] Comment on above: Performed By: #### C BC ####[facility] Pdomlijalq5569[address] [place], [place] [address]Dr. Flaco Lawrence Erythrocyte distribution width (RBC) [Ratio] 16.0 % Critically high 11.0-15.0 [facility] Comment on above: Performed By: #### C BC ####[facility] Svuckfleoj3753 [place] [address]Dr. Flaco Lawrence Hematocrit (Bld) [Volume fraction] 36.4 % Critically low 42.0-54.0 [facility] Comment on above: Performed By: #### C BC ####[facility] Nohymjdgwf3879[address] [place], [place] [address]Dr. Purviedith Lawrence Hemoglobin (Bld) [Mass/Vol] 12.0 g/dL Critically low 14.0-18.0 [facility] Comment on above: Performed By: #### C BC ####[facility] Vchzdsnfcn[address] [place], [place] [address]Dr. Flaco Lawrence IG # 0.03 10e3/ul Normal 0.00-0.03 [facility] Comment on above: Performed By: #### C BC ####[facility] Biprrhusqf364[address] [place], [place] [address]Dr. Purviedith Lawrence IG % 0.3 % Normal 0.0-0.5 [facility] Comment on above: Performed By: #### C BC ####[facility] Laezgaeuok6[address] [place], [place] [address]DrJeramie Flaco Branden LYMPH # 1.6 103/ul Normal 1.2-3.8 [facility] Comment on above: Performed By: #### C BC ####[facility] Ccyquulabj7095[address] [place], [place] [address]DrJeramie Purviedith Lawrence Lymphocytes/100 WBC (Bld) 14.7 % Critically low 20.5-60.0 [facility] Comment on above: Performed By: #### C BC ####[facility] Xtswldmrvi99[address] [place], [place] [address]DrJeramie Lawrence MANUAL DIFF REQ NO Normal [facility] Comment on above: Performed By: #### C BC ####[facility] Ybqgozfiuq118[address] [place], [place] [address]DrJeramie Lawrence MCH (RBC) [Entitic mass] 28.2 pg Normal 25.9-34.0 [facility] Comment on above: Performed By: #### C BC ####[facility] Bsyfdkdtrk5034 [place] [address]Dr. Flaco Lawrence MCHC (RBC) [Mass/Vol] 33.0 g/dL Normal 29.9-35.2 [facility] Comment on above: Performed By: #### C BC ####[facility] Aytyqrufqt8799 [place] [address]Dr. Flaco Lawrence MCV (RBC) [Entitic vol] 85.4 fL Normal 80.0-94.0 [facility] Comment on above: Performed By: #### C BC ####[facility] Osktsgpacv44[address] [place], [place] [address]DrJeramie Lawrence MONO # 1.4 103/ul Critically high 0.3-0.[address] [facility] Comment on above: Performed By: #### C BC ####[facility] Szlwichivi1890[address] [place], [place] [address]Dr. Flaco Lawrence Monocytes/100 WBC (Bld) 12.6 % Critically high 1.7-12.0 [facility] Comment on above: Performed By: #### C BC ####[facility] Qxxivlgrkn0[address] [place], [place] [address]Dr. Flaco Lawrence NEUT # 7.7 103/ul Critically high 1.4-6.[address] [facility] Comment on above: Performed By: #### C BC ####[facility] Swtrxcfqhl7244[address] [place], [place] [address]Dr. Flaco Lawrence Neutrophils/100 WBC (Bld) 71.6 % Normal 43.0-75.0 [facility] Comment on above: Performed By: #### C BC ####[facility] Zasnpjhthr9[address] [place], [place] [address]DrJeramie Lawrence Platelet mean volume (Bld) [Entitic vol] 9.5 fL Normal 9.5-13.5 [facility] Comment on above: Performed By: #### C BC ####[facility] [address]tefads[address] [place], [place] [id number]. Flaco Lawrence PLT 462 103/ul Critically high 150-450 [facility] Comment on above: Performed By: #### C BC ####[facility] Yonvbhsyhl[address] [place] [address]Dr. Flaco Lawrence RBC 4.26 106/ul Critically low 4.70-6.10 [facility] Comment on above: Performed By: #### C BC ####[facility] Modswmfbhd9559 [place] [address]Dr. Flaco Lawrence WBC 10.8 103/ul Normal 4.0-11.0 [facility] Comment on above: Performed By: #### C BC ####[facility] Habwcybkcx3254 [place] [address]Dr. Flaco Lawrence MRI CSPINE WO CONon 11-17-19 23 MRI CSPINE WO CON Normal [facility] PROF 14(COMP METB)on 023 Albumin [Mass/Vol] 2.4 g/dL Critically low 3.4-5.0 [facility] Comment on above: Performed By: #### C MP ####[facility] Imonqokcdv0768 [place] [address]Dr. Flaco Lawrence Albumin/Globulin [Mass ratio] 0.5 {ratio} Normal [facility] Comment on above: Performed By: #### C MP ####[facility] Fnjkhrahfe8719 [place] [address]Dr. Flaco Lawrence ALP [Catalytic activity/Vol] 132 U/L Critically high 46-116 [facility] Comment on above: Performed By: #### C MP ####[facility] Mopquhrmmt5060 [place] [address]Dr. Flaco Lawrence ALT [Catalytic activity/Vol] 18 U/L Normal 16-63 [facility] Comment on above: Performed By: #### C MP ####[facility] Qbqkjqltzq3296 [place] [address]Dr. Flaco Lawrence Anion gap [Moles/Vol] 15.7 mmol/L Normal [facility] Comment on above: Performed By: #### C MP ####[facility] Npnrnoqkow6223 [place] [id number]. Flaco Lawrence AST [Catalytic activity/Vol] 26 U/L Normal 15-37 [facility] Comment on above: Performed By: #### C MP ####[facility] Nruvjlqxiw8590 [place], [place] [address]Oq. Flaco Lawrence Bilirubin [Mass/Vol] 0.5 mg/dL Normal 0.2-1.0 [facility] Comment on above: Performed By: #### C MP ####[facility] Jcuxvtfxzz1842 [place] [id number]. Flaco Lawrence Calcium [Mass/Vol] 9.2 mg/dL Normal 8.5-10.1 [facility] Comment on above: Performed By: #### C MP ####[facility] Zvyharbbqm5281 [place] [id number]. Flaco Lawrence Chloride [Moles/Vol] 99 mmol/L Normal 98-107 [facility] Comment on above: Performed By: #### C MP ####[facility] Maspefmtsh4308 [place] [id number]. Flaco Lawrence CO2 [Moles/Vol] 23.9 mmol/L Normal 21.0-32.0 [facility] Comment on above: Performed By: #### C MP ####[facility] Qurcnqbhfy2073 [place] [id number]. Flaco Lawrence Creatinine [Mass/Vol] 1.65 mg/dL Critically high 0.70-1.30 [facility] Comment on above: Performed By: #### C MP ####[facility] Lffpvzhlif4972 [place] [id number]. Flaco Lawrence EGFR-AF SERBIAN 50 mL/min/1.73m2 Critically low >=60 [facility] Comment on above: Performed By: #### C MP ####[facility] Bxvqekqpap6589 [place] [id number]. Flaco Lawrence EGFR-NON AF SERBIAN 41 mL/min/1.73m2 Critically low >=60 [facility] Comment on above: Performed By: #### C MP ####[facility] Jxomycgoep1302 [place] [id number]. Flaco Lawrence Globulin (S) [Mass/Vol] 4.5 g/dL Normal [facility] Comment on above: Performed By: #### C MP ####[facility] Ooxilklcpx8744 [place] [id number]. Flaco Lawrence Glucose [Mass/Vol] 116 mg/dL Critically high 74-106 T [facility] Comment on above: Performed By: #### C MP ####[facility] Uyqvbrkxfm6241 [place] [id number]. Flaco Lawrence Potassium [Moles/Vol] 3.6 mmol/L Normal 3.5-5.1 [facility] Comment on above: Performed By: #### C MP ####[facility] Fjsievgmvi8591 [place] [address]Dr. Flaco Lawrence Protein [Mass/Vol] 6.9 g/dL Normal 6.4-8.2 [facility] Comment on above: Performed By: #### C MP ####[facility] Bvybippmcl3890 [place] [address]Dr. Flaco Lawrence Sodium [Moles/Vol] 135 mmol/L Critically low 136-145 Th [facility] Comment on above: Performed By: #### C MP ####[facility] Ttedfyudfn7681 [place] [address]Dr. Flaco Lawrence Urea nitrogen [Mass/Vol] 21.0 mg/dL Critically high 7.0-18.0 [facility] Comment on above: Performed By: #### C MP ####[facility] Udcrggtarx5544 [place] [address]Dr. Flaco Lawrence Urea nitrogen/Creatinine [Mass ratio] 12.7 mg/mg Normal [facility] Comment on above: Performed By: #### C MP ####[facility] Vuosnsmzsa21[address] [place], [place] [address]Dr. Flaco Branden CBC W MANUAL DIFFon 11-16-19 23 ATYPICAL LYMPH # Normal [facility] Comment on above: Performed By: #### C BCMAN ####[facility] Mcmvzidkts2010 [place] [id number]. Flaco Lawrence ATYPICAL LYMPH % Normal [facility] Comment on above: Performed By: #### C [place] ####[facility] Rcpzcoawua1104 [place] [id number]. Yilan Lawrence BAND # 0.0 103/ul Normal 0.0-0.3 [facility] Comment on above: Performed By: #### C [place] ####[facility] Eyfyxizgeb2618 [place] [address]Dr. Yilan Lawrence BAND % 0 % Normal 0-5 [facility] Comment on above: Performed By: #### C [place] ####[facility] Akpegjwlse0[address] [place], [place] [address]Dr. Yilan Lawrence BASOM # 0.00 103/ul Normal 0.00-0.10 [facility] Comment on above: Performed By: #### C C[place] ####[facility] Gcbjkolwzt020[address] [place], [place] [address]Dr. Yiedith Lawrence BASOM % 0.0 % Critically low 0.2-2.0 [facility] Comment on above: Performed By: #### C C[place] ####[facility] Fhapuduptt34[address] [place], [place] [address]Dr. Yilan Lawrence BLAST # Normal [facility] Comment on above: Performed By: #### C C[place] ####[facility] Fzgmawkuop9495 [place] [address]Dr. Yilan Lawrence BLAST % Normal [facility] Comment on above: Performed By: #### C [place] ####[facility] Beqnwzhigh4363 [place] [address]Dr. Flaco Lawrence CORRECTED WBC Normal 4.0-11.0 [facility] Comment on above: Performed By: #### C C[place] ####[facility] Mwilyalhjx74[address] [place], [place] [address]Dr. Yilan Lawrence EOS # 0.00 103/ul Normal 0.00-0.70 [facility] Comment on above: Performed By: #### C C[place] ####[facility] Mvkkeixaow1487 [place], [place] [address]Zc. Flaco Lawrence EOS% 0.0 % Critically low 0.9-7.0 [facility] Comment on above: Performed By: #### C C[place] ####[facility] Bruneppgef3322 [place], [place] [address]Nk. Flaco Lawrence HCT 35.9 % Critically low 42.0-54.0 [facility] Comment on above: Performed By: #### C C[place] ####[facility] Pobpigimfz1912 [place], [place] [address]Aw. Flaco Lawrence HGB 12.0 g/dl Critically low 14.0-18.0 [facility] Comment on above: Performed By: #### C [place] ####[facility] Ieerrwasgt5255 [place], [place] [address]Al. Flaco Lawrence LYMPHM # 1.42 103/ul Normal 1.20-3.80 [facility] Comment on above: Performed By: #### C C[place] ####[facility] Jthfeqkbii0042 [place], [place] [address]Lw. Flaco Lawrence LYMPHM% 11.0 % Critically low 20.5-60.0 [facility] Comment on above: Performed By: #### C C[place] ####[facility] Mnbwegghdd5755 [place] [id number]. Flaco Lawrence MCH 28.6 pg Normal 25.9-34.0 [facility] Comment on above: Performed By: #### C [place] ####[facility] Wrgzwjoclj5895 [place], [place] [address]Wh. Flaco Lawrence MCHC 33.4 g/dl Normal 29.9-35.2 [facility] Comment on above: Performed By: #### C C[place] ####[facility] Akcyhbivwo0313 [place], [place] [address]Se. Flaco Lawrence MCV 85.5 fL Normal 80.0-94.0 [facility] Comment on above: Performed By: #### C C[place] ####[facility] Jglaaiaoeo8497 [place] [id number]. Flaco Lawrence METAMYELOCYTE # Normal [facility] Comment on above: Performed By: #### C BCMAN ####[facility] Xurisrslrb9301 [place] [id number]. Flaco Lawrence METAMYELOCYTE % Normal [facility] Comment on above: Performed By: #### C BCMAN ####[facility] Pliwpxllon9494 [place] [id number]. Flaco Lawrence MONOM# 1.42 103/ul Critically high 0.30-0.80 [facility] Comment on above: Performed By: #### C BCMAN ####[facility] Fsfklaidqd0739 [place] [id number]. Flaco Lawrence MONOM% 11.0 % Normal 1.7-12.0 [facility] Comment on above: Performed By: #### C C[place] ####[facility] Xtjtssgowc1861 [place] [id number]. Flaco Lawrence MPV 9.5 fL Normal 9.5-13.5 [facility] Comment on above: Performed By: #### C BCMAN ####[facility] Hptftayrbz7157 [place] [id number]. Flaco Lawrence MYELOCYTE # Normal [facility] Comment on above: Performed By: #### C C[place] ####[facility] Dmhgaejxlo7129 [place] [id number]. Flaco Lawrence MYELOCYTE % Normal [facility] Comment on above: Performed By: #### C BCGAYATHRI ####[facility] Mnkeqrqank4845 [place] [id number]. Flaco Lawrence NRBC Normal [facility] Comment on above: Performed By: #### C BCMAN ####[facility] Ksttbwfuds0633 [place] [id number]. Flaco Lawrence PLT 469 103/ul Critically high 150-[address] [facility] Comment on above: Performed By: #### C BCGAYATHRI ####[facility] Ftpqnudlbv5977 [place] [id number]. Yiedith Lawrence RBC 4.20 106/ul Critically low 4.70-6.10 [facility] Comment on above: Performed By: #### C [place] ####[facility] Tqgcowpixc4844 [place] [id number]. Flaco Lawrence RDW 16.3 % Critically high 11.0-15.0 [facility] Comment on above: Performed By: #### C [place] ####[facility] Edfpyraxiv3192 [place] [address]DrJeramie Lawrence SEG # 10.06 103/ul Critically high 1.40-6.50 [facility] Comment on above: Performed By: #### C [place] ####[facility] Ryddfsahnm0564 [place] [address]DrJeramie Lawrence SEG % 78.0 % Critically high 43.0-75.0 [facility] Comment on above: Performed By: #### C [place] ####[facility] Dizcwejlis0084 [place] [address]DrJeramie Lawrence WBC 12.9 103/ul Critically high 4.0-11.0 [facility] Comment on above: Performed By: #### C [place] ####[facility] Tuaoyugkug6802 [place] [address]DrJeramie Lawrence PROF 14(COMP METB)on 023 Albumin [Mass/Vol] 2.5 g/dL Critically low 3.4-5.0 [facility] Comment on above: Performed By: #### C MP ####[facility] Mhsmtyjtrs1427 [place] [id number] Lawrence Albumin/Globulin [Mass ratio] 0.6 {ratio} Normal [facility] Comment on above: Performed By: #### C MP ####[facility] Vldyivjlod7567 [place] [address]DrJeramie Lawrence ALP [Catalytic activity/Vol] 118 U/L Critically high 46-116 [facility] Comment on above: Performed By: #### C MP ####[facility] Qzsgkhbyfu5207 [place] [address]DrJeramie Lawrence ALT [Catalytic activity/Vol] 12 U/L Critically low 16-63 [facility] Comment on above: Performed By: #### C MP ####[facility] Ozzmvvqlab6778 [place] [id number]. Flaco Lawrence Anion gap [Moles/Vol] 15.8 mmol/L Normal [facility] Comment on above: Performed By: #### C MP ####[facility] Obpaixeopa2899 [place] [id number]. Flaco Lawrence AST [Catalytic activity/Vol] 22 U/L Normal 15-37 [facility] Comment on above: Performed By: #### C MP ####[facility] Esbmqaqgqi6674[address] [place], [place] [address]Dr. Flaco Lawrence Bilirubin [Mass/Vol] 0.8 mg/dL Normal 0.2-1.0 [facility] Comment on above: Performed By: #### C MP ####[facility] Dbsqnkqlhi5086[address] [place], [place] [address]Dr. Flaco Lawrence Calcium [Mass/Vol] 8.9 mg/dL Normal 8.5-10.1 [facility] Comment on above: Performed By: #### C MP ####[facility] Bbmlrhlfpo8574[address] [place], [place] [address]Dr. Flaco Lawrence Chloride [Moles/Vol] 97 mmol/L Critically low 98-107 [facility] Comment on above: Performed By: #### C MP ####[facility] Lqzxcyqbbz654[address] [place], [place] [id number]. Flaco Lawrence CO2 [Moles/Vol] 22.8 mmol/L Normal 21.0-32.0 [facility] Comment on above: Performed By: #### C MP ####[facility] Zmjzfyqgpy9[address] [place], [place] [address]Dr. Flaco Lawrence Creatinine [Mass/Vol] 1.64 mg/dL Critically high 0.70-1.30 [facility] Comment on above: Performed By: #### C MP ####[facility] Ypmoweercn305837 [address] [place], [place] [address]Dr. Flaco Lawrence EGFR-AF SERBIAN 50 mL/min/1.73m2 Critically low >=60 [facility] Comment on above: Performed By: #### C MP ####[facility] Bnhvhjbhrg7427 [place] [id number]. Flaco Branden EGFR-NON AF SERBIAN 42 mL/min/1.73m2 Critically low >=60 [facility] Comment on above: Performed By: #### C MP ####[facility] Oeimqfpmwh0435 [place] [id number]. Flaco Lawrence Globulin (S) [Mass/Vol] 4.2 g/dL Normal [facility] Comment on above: Performed By: #### C MP ####[facility] Vgsdrbdixa7801[address] [place], [place] [address]Dr. Flaco Lawrence Glucose [Mass/Vol] 110 mg/dL Critically high 74-106 T [facility] Comment on above: Performed By: #### C MP ####[facility] Uksjsoaqaj889[address] [place], [place] [address]Dr. Flaco Lawrence Potassium [Moles/Vol] 3.6 mmol/L Normal 3.5-5.1 [facility] Comment on above: Performed By: #### C MP ####[facility] Ymwwificow980437 [address] [place], [place] [address]Dr. Flaco Lawrence Protein [Mass/Vol] 6.7 g/dL Normal 6.4-8.2 [facility] Comment on above: Performed By: #### C MP ####[facility] Oyuomvjshx2229 [place] [id number]. Flaco Lawrence Sodium [Moles/Vol] 132 mmol/L Critically low 136-145 Th [facility] Comment on above: Performed By: #### C MP ####[facility] Tjxwxjutxd8845[address] [place], [place] [address]Dr. Flaco Lawrence Urea nitrogen [Mass/Vol] 20.0 mg/dL Critically high 7.0-18.0 [facility] Comment on above: Performed By: #### C MP ####[facility] Tyeshbupjv0058[address] [place], [place] [address]Dr. Flaco Lawrence Urea nitrogen/Creatinine [Mass ratio] 12.2 mg/mg Normal [facility] Comment on above: Performed By: #### C MP ####[facility] Myrjutuuhw5818[address] [place], [place] [address]Dr. Flaco Lawrence AMMONIAon 11-15-2022 Ammonia (P) [Moles/Vol] 22 umol/L Normal 11-32 [facility] Comment on above: Performed By: #### A MM ####[facility] Zowybnaewf5432[address] [place], [place] [address]Dr. Flaco Lawrence CBC AUTO DIFFon 11-15-2022 BASO # 0.0 103/ul Normal 0.0-0.1 [facility] Comment on above: Performed By: #### C BC ####[facility] Esagnsszbi142837 [address] [place], [place] [address]Dr. Flaco Lawrence Basophils/100 WBC (Bld) 0.3 % Normal 0.2-2.0 [facility] Comment on above: Performed By: #### C BC ####[facility] Yepsneegpy436[address] [place], [place] [address]Dr. Flaco Lawrence EO # 0.0 103/ul Normal 0.0-0.7 [facility] Comment on above: Performed By: #### C BC ####[facility] Egdokyjhmr3922[address] [place], [place] [address]Dr. Flaco Lawrence Eosinophils/100 WBC (Bld) 0.3 % Critically low 0.9-7.0 [facility] Comment on above: Performed By: #### C BC ####[facility] Bamxsxwbkl4228[address] [place], [place] [address]Dr. Flaco Lawrence Erythrocyte distribution width (RBC) [Ratio] 16.3 % Critically high 11.0-15.0 [facility] Comment on above: Performed By: #### C BC ####[facility] Mxkkhrlomg4677[address] [place], [place] [address]Dr. Flaco Lawrence Hematocrit (Bld) [Volume fraction] 39.2 % Critically low 42.0-54.0 [facility] Comment on above: Performed By: #### C BC ####[facility] Pbysotrpsl9504 [place] [id number]. Flaco Lawrence Hemoglobin (Bld) [Mass/Vol] 12.9 g/dL Critically low 14.0-18.0 [facility] Comment on above: Performed By: #### C BC ####[facility] Mjgdifhkvt9214 [place] [id number]. Flaco Lawrence IG # 0.05 10e3/ul Critically high 0.00-0.03 [facility] Comment on above: Performed By: #### C BC ####[facility] Fqrjtauaaj9871 [place] [address]Dr. Flaco Lawrence IG % 0.4 % Normal 0.0-0.5 [facility] Comment on above: Performed By: #### C BC ####[facility] Itiferxmdq9186[address] [place], [place] [address]Dr. Flaco Lawrence LYMPH # 1.6 103/ul Normal 1.2-3.8 [facility] Comment on above: Performed By: #### C BC ####[facility] Rjlxxgkmig650[address] [place], [place] [address]Dr. Flaco Lawrence Lymphocytes/100 WBC (Bld) 12.5 % Critically low 20.5-60.0 [facility] Comment on above: Performed By: #### C BC ####[facility] Sntrkqaorr3372 [place] [address]Dr. Flaco Lawrence MANUAL DIFF REQ NO Normal [facility] Comment on above: Performed By: #### C BC ####[facility] Megxyvanqs473637 [address] [place], [place] [address]Dr. Flaco Lawrence MCH (RBC) [Entitic mass] 28.7 pg Normal 25.9-34.0 [facility] Comment on above: Performed By: #### C BC ####[facility] Xdqtwmizst6875[address] [place], [place] [address]Dr. Flaco Lawrence MCHC (RBC) [Mass/Vol] 32.9 g/dL Normal 29.9-35.2 [facility] Comment on above: Performed By: #### C BC ####[facility] Pauoeczybn4881 [place] [id number]. Flaco Lawrence MCV (RBC) [Entitic vol] 87.1 fL Normal 80.0-94.0 [facility] Comment on above: Performed By: #### C BC ####[facility] Caebxpqhyg2951 [place] [id number]. Flaco Lawrence MONO # 1.4 103/ul Critically high 0.3-0.[address] [facility] Comment on above: Performed By: #### C BC ####[facility] Rdmjiamjng8300 [place] [id number]. Flaco Lawrence Monocytes/100 WBC (Bld) 11.2 % Normal 1.7-12.0 [facility] Comment on above: Performed By: #### C BC ####[facility] Ebrxmjvlvt8560[address] [place], [place] [address]Dr. Flaco Lawrence NEUT # 9.4 103/ul Critically high 1.4-6.[address] [facility] Comment on above: Performed By: #### C BC ####[facility] Ckobmcvand0024 [place] [id number]. Flaco Lawrence Neutrophils/100 WBC (Bld) 75.3 % Critically high 43.0-75.0 [facility] Comment on above: Performed By: #### C BC ####[facility] Ozcycgbnps6244 [place] [id number]. Flaco Lawrence Platelet mean volume (Bld) [Entitic vol] 9.3 fL Critically low 9.5-13.5 [facility] Comment on above: Performed By: #### C BC ####[facility] Mlcjuhktth7602 [place] [id number]. Flaco Lawrence PLT 532 103/ul Critically high 150-[address] [facility] Comment on above: Performed By: #### C BC ####[facility] Rawathjuew[address] [place], [place] [address]Dr. Flaco Branden RBC 4.50 106/ul Critically low 4.70-6.[address] [facility] Comment on above: Performed By: #### C BC ####[facility] Usaykkpaog5339 [place] [address]Dr. Flaco Lawrence WBC 12.5 103/ul Critically high 4.0-11.0 [facility] Comment on above: Performed By: #### C BC ####[facility] Ufxhxgoyvv5439 [place] [address]Dr. Flaco Lawrence PROF 14(COMP METB)on 023 Albumin [Mass/Vol] 3.0 g/dL Critically low 3.4-5.0 [facility] Comment on above: Performed By: #### C MP ####[facility] Lvzkbpmyqv4211 [place] [address]Dr. Flaco Lawrence Albumin/Globulin [Mass ratio] 0.5 {ratio} Normal [facility] Comment on above: Performed By: #### C MP ####[facility] Uuujrjjjho3107 [place] [address]Dr. Flaco Lawrence ALP [Catalytic activity/Vol] 103 U/L Normal 46-116 [facility] Comment on above: Performed By: #### C MP ####[facility] Qmfhjfihfg2605 [place] [address]Dr. Flaco Lawrence ALT [Catalytic activity/Vol] 12 U/L Critically low 16-63 [facility] Comment on above: Performed By: #### C MP ####[facility] Yzoasxwsqw7859 [place] [address]Dr. Flaco Lawrence Anion gap [Moles/Vol] 16.8 mmol/L Normal [facility] Comment on above: Performed By: #### C MP ####[facility] Ksccloevzu7812 [place] [address]Dr. Flaco Lawrence AST [Catalytic activity/Vol] 16 U/L Normal 15-37 [facility] Comment on above: Performed By: #### C MP ####[facility] Xyjqezwbah9667 [place] [address]Dr. Flaco Lawrence Bilirubin [Mass/Vol] 1.0 mg/dL Normal 0.2-1.0 [facility] Comment on above: Performed By: #### C MP ####[facility] Wawhiffrcs8255 [place] [id number]. Flaco Lawrence Calcium [Mass/Vol] 9.8 mg/dL Normal 8.5-10.1 [facility] Comment on above: Performed By: #### C MP ####[facility] Rdhkpztrfb1031 [place] [id number]. Flaco Lawrence Chloride [Moles/Vol] 98 mmol/L Normal 98-107 [facility] Comment on above: Performed By: #### C MP ####[facility] Skiphxptsn2495 [place] [id number]. Flaco Lawrence CO2 [Moles/Vol] 24.3 mmol/L Normal 21.0-32.0 [facility] Comment on above: Performed By: #### C MP ####[facility] Dapotwkwfe2564[address] [place], [place] [address]Dr. Flaco Lawrence Creatinine [Mass/Vol] 1.86 mg/dL Critically high 0.70-1.30 [facility] Comment on above: Performed By: #### C MP ####[facility] Bxfcfcqjoo9038[address] [place], [place] [address]Dr. Flaco Lawrence EGFR-AF SERBIAN 44 mL/min/1.73m2 Critically low >=60 [facility] Comment on above: Performed By: #### C MP ####[facility] Pwkjdlgtfb7879[address] [place], [place] [address]Dr. Flaco Branden EGFR-NON AF SERBIAN 36 mL/min/1.73m2 Critically low >=60 [facility] Comment on above: Performed By: #### C MP ####[facility] Wdngvuohjq9940[address] [place], [place] [address]Dr. Flaco Lawrence Globulin (S) [Mass/Vol] 5.6 g/dL Normal [facility] Comment on above: Performed By: #### C MP ####[facility] Zgjbkujxhk0126[address] [place], [place] [address]Dr. Flaco Lawrence Glucose [Mass/Vol] 108 mg/dL Critically high 74-106 [facility] Comment on above: Performed By: #### C MP ####[facility] Axujamlbaz2733 [place] [id number]. Purviedith Lawrence Potassium [Moles/Vol] 4.1 mmol/L Normal 3.5-5.1 [facility] Comment on above: Performed By: #### C MP ####[facility] Khrdshwyrr2556 [place] [address]Dr. Purviedith Lawrence Protein [Mass/Vol] 8.6 g/dL Critically high 6.4-8.2 [facility] Comment on above: Performed By: #### C MP ####[facility] Epdtcjfeza5924 [place] [address]Dr. Flaco Lawrence Sodium [Moles/Vol] 135 mmol/L Critically low 136-145 Th [facility] Comment on above: Performed By: #### C MP ####[facility] Zktxrjmicv5208 [place] [address]Dr. Flaco Lawrence Urea nitrogen [Mass/Vol] 18.0 mg/dL Normal 7.0-18.0 [facility] Comment on above: Performed By: #### C MP ####[facility] Tawkjorqru7423[address] [place], [place] [address]Dr. Flaco Lawrence Urea nitrogen/Creatinine [Mass ratio] 9.7 mg/mg Normal [facility] Comment on above: Performed By: #### C MP ####[facility] Mgxyjjqone4075 [place] [address]Dr. Flaco Lawrence CT HEAD WO CONon 11-14-2022 CT HEAD WO CON Normal [facility] MRI LSPINE WO CONon 11-14-19 MRI LSPINE WO CON Normal [facility] CBC AUTO DIFFon 11-13-2022 BASO # 0.0 103/ul Normal 0.0-0.1 [facility] Comment on above: Performed By: #### C BC ####[facility] Oxkiipofpe0811[address] [place], [place] [address]Dr. Flaco Lawrence Basophils/100 WBC (Bld) 0.4 % Normal 0.2-2.0 [facility] Comment on above: Performed By: #### C BC ####[facility] Ijwbwtybrg6176 [place] [id number]. Flaco Lawrence EO # 0.1 103/ul Normal 0.0-0.7 [facility] Comment on above: Performed By: #### C BC ####[facility] Wffjqvcdyx1969 [place] [address]Dr. Flaco Lawrence Eosinophils/100 WBC (Bld) 1.0 % Normal 0.9-7.0 [facility] Comment on above: Performed By: #### C BC ####[facility] Dtaftahxnz6423[address] [place], [place] [address]Dr. Flaco Lawrence Erythrocyte distribution width (RBC) [Ratio] 15.9 % Critically high 11.0-15.0 [facility] Comment on above: Performed By: #### C BC ####[facility] Ycgaddtzeb038[address] [place], [place] [address]Dr. Flaco Lawrence Hematocrit (Bld) [Volume fraction] 35.9 % Critically low 42.0-54.0 [facility] Comment on above: Performed By: #### C BC ####[facility] Lktkwomigr997[address] [place], [place] [address]Dr. Flaco Lawrence Hemoglobin (Bld) [Mass/Vol] 11.9 g/dL Critically low 14.0-18.0 [facility] Comment on above: Performed By: #### C BC ####[facility] Yizczhowse2154[address] [place], [place] [address]Dr. Flaco Lawrence IG # 0.03 10e3/ul Normal 0.00-0.03 [facility] [facility] Comment on above: Performed By: #### C BC ####[facility] Wiwbfoacou[address] [place], [place] [address]Dr. Flaco Lawrence IG % 0.4 % Normal 0.0-0.5 [facility] Comment on above: Performed By: #### C BC ####[facility] Jbmlhkmfmy6[address] [place], [place] [address]Dr. Purviedith Lawrence LYMPH # 1.8 103/ul Normal 1.2-3.8 [facility] Comment on above: Performed By: #### C BC ####[facility] Dozrlxkzru7276 [place] [id number]. Flaco Branden Lymphocytes/100 WBC (Bld) 22.2 % Normal 20.5-60.0 [facility] Comment on above: Performed By: #### C BC ####[facility] Hsjrynrxqf8338 [place] [id number]. Purviedith Lawrence MANUAL DIFF REQ NO Normal [facility] Comment on above: Performed By: #### C BC ####[facility] Eesyhcuvlh7662 [place] [id number]. Purviedith Lawrence MCH (RBC) [Entitic mass] 28.8 pg Normal 25.9-34.0 [facility] Comment on above: Performed By: #### C BC ####[facility] Ceeodczknz0781 [place] [address]Dr. Flaco Branden MCHC (RBC) [Mass/Vol] 33.1 g/dL Normal 29.9-35.2 [facility] Comment on above: Performed By: #### C BC ####[facility] Nyhnjeaafg9299 [place] [id number]. Purviedith Lawrence MCV (RBC) [Entitic vol] 86.9 fL Normal 80.0-94.0 [facility] Comment on above: Performed By: #### C BC ####[facility] Fradelwogb6098 [place] [id number]. Flcao Lawrence MONO # 1.0 103/ul Critically high 0.3-0.[address] [facility] Comment on above: Performed By: #### C BC ####[facility] Wozqfkldix5046 [place] [id number]. Flaco Lawrence Monocytes/100 WBC (Bld) 13.0 % Critically high 1.7-12.0 [facility] Comment on above: Performed By: #### C BC ####[facility] Utjuivvyeg[address] [place], [place] [id number]. Flaco Lawrence NEUT # 5.0 103/ul Normal 1.4-6.5 [facility] Comment on above: Performed By: #### C BC ####[facility] Duyzjvibcq6097 [place] [id number]. Flaco Lawrence Neutrophils/100 WBC (Bld) 63.0 % Normal 43.0-75.0 [facility] Comment on above: Performed By: #### C BC ####[facility] Fkcaiuruot7598 [place] [address]Dr. Flaco Lawrence Platelet mean volume (Bld) [Entitic vol] 9.5 fL Normal 9.5-13.5 [facility] Comment on above: Performed By: #### C BC ####[facility] Lclfpovjtt9642 [place] [address]Dr. Flaco Branden PLT 335 103/ul Normal 150-450 [facility] Comment on above: Performed By: #### C BC ####[facility] Ozfqlnaoex6[address] [place], [place] [address]Dr. Flaco Lawrence RBC 4.13 106/ul Critically low 4.70-6.[address] [facility] Comment on above: Performed By: #### C BC ####[facility] Umjnvupndr6938[address] [place], [place] [address]Dr. Flaco Branden WBC 7.9 103/ul Normal 4.0-11.0 [facility] Comment on above: Performed By: #### C BC ####[facility] Qnjdtlpoxc5[address] [place], [place] [address]Dr. Flaco Branden ER URINE PROFILEon 3 Bilirubin Ql (U) Negative Normal NEGATIVE [facility] Comment on above: Performed By: #### E RUR ####[facility] Slbwefmeho5649[address] [place], [place] [address]Dr. Flaco Lawrence Clarity (U) CLEAR Normal CLEAR [facility] Comment on above: Performed By: #### E RUR ####[facility] Nkicuwvtli2410[address] [place], [place] [address]Dr. Flaco Lawrence Color (U) LT. YELLOW Normal YELLOW [facility] Comment on above: Performed By: #### E RUR ####[facility] Plmcplqsyn9925[address] [place], [place] [address]Dr. Yilan Lawrence ERUAHD A micrscopic examination will be performed if indicated. Normal [facility] Comment on above: Performed By: #### E RUR ####[facility] Ghiddxmzwb0977[address] [place], [place] [address]Dr. Flaco Lawrence Glucose Ql (U) Negative Normal NEGATIVE [facility] Comment on above: Performed By: #### E RUR ####[facility] Jidrlosfqk585[address] [place], [place] [address]Dr. Flaco Branden Hemoglobin Ql (U) Negative Normal NEGATIVE [facility] Comment on above: Performed By: #### E RUR ####[facility] Wstzjdipgr4668[address] [place], [place] [address]Dr. Purviedith Branden Ketones Ql (U) Negative Normal NEGATIVE [facility] Comment on above: Performed By: #### E RUR ####[facility] Lemzurqlre9717[address] [place], [place] [address]Dr. Flaco Lawrence LEUKOCYTES Negative Normal NEGATIVE [facility] Comment on above: Performed By: #### E RUR ####[facility] Hnmmrthubn8720[address] [place], [place] [address]Dr. Purviedith Branden Nitrite Ql (U) Negative Normal NEGATIVE [facility] Comment on above: Performed By: #### E RUR ####[facility] Pqcdeaqevz217[address] [place], [place] [address]Dr. Flaco Lawrence pH (U) 5.5 [pH] Normal 5-9 [facility] Comment on above: Performed By: #### E RUR ####[facility] Lzkqhyttbx2498[address] [place], [place] [address]Dr. Flaco Lawrence SPEC GRAVITY <=1.005 Abnormal 1.005-<=1.02 5 [facility] Comment on above: Performed By: #### E RUR ####[facility] Satxdxfzzb1457[address] [place], [place] [address]Dr. Flaco Lawrence UA PROTEIN Negative Normal NEGATIVE/ TRACE [facility] Comment on above: Performed By: #### E RUR ####[facility] Vtfuqttgza27[address] [place], [place] [address]Dr. Flaco Lawrence UR MICRO IND NOT INDICATED Normal [facility] Comment on above: Performed By: #### E RUR ####[facility] Qzcdrsxkzc3000 [place] [address]Dr. Flaco Lawrence Urobilinogen Qn (U) 0.2 {Tuan'U}/dL Normal 0.2 - 1. 0 [facility] Comment on above: Performed By: #### E RUR ####[facility] Zuhiwitbcx2340[address] [place], [place] [address]Dr. Flaco Lawrence PROF CHEM 8 (BAS METB)on Anion gap [Moles/Vol] 13.6 mmol/L Normal [facility] Comment on above: Performed By: #### B MP ####[facility] Vnqnqconyr1854[address] [place], [place] [address]Dr. Flaco Lawrence Calcium [Mass/Vol] 9.2 mg/dL Normal 8.5-10.1 [facility] Comment on above: Performed By: #### B MP ####[facility] Inwzyvckbe729[address] [place], [place] [address]Dr. Flaco Lawrence Chloride [Moles/Vol] 104 mmol/L Normal 98-107 [facility] Comment on above: Performed By: #### B MP ####[facility] Osgtllcquk0922[address] [place], [place] [address]Dr. Flaco Lawrence CO2 [Moles/Vol] 24.9 mmol/L Normal 21.0-32.0 [facility] Comment on above: Performed By: #### B MP ####[facility] Pfeasyftfc9879[address] [place], [place] [address]Dr. Flaco Lawrence Creatinine [Mass/Vol] 1.59 mg/dL Critically high 0.70-1.30 [facility] Comment on above: Performed By: #### B MP ####[facility] Udbwycfcqi150[address] [place], [place] [address]Dr. Flaco Lawrence EGFR-AF SERBIAN 52 mL/min/1.73m2 Critically low >=60 [facility] Comment on above: Performed By: #### B MP ####[facility] Fcvkwkarfi1902 [place] [address]Dr. Flaco Lawrence EGFR-NON AF SERBIAN 43 mL/min/1.73m2 Critically low >=60 [facility] Comment on above: Performed By: #### B MP ####[facility] Vvxetjikcd5431 [place] [address]Dr. Flaco Lawrence Glucose [Mass/Vol] 119 mg/dL Critically high 74-106 [facility] Comment on above: Performed By: #### B MP ####[facility] Iqbpogaehg7901 [place] [address]Dr. Flaco Lawrence Potassium [Moles/Vol] 3.5 mmol/L Normal 3.5-5.1 [facility] Comment on above: Performed By: #### B MP ####[facility] Mbkcpczjsl9[address] [place], [place] [address]Dr. Purviedith Lawrence Sodium [Moles/Vol] 139 mmol/L Normal 136-145 [facility] Comment on above: Performed By: #### B MP ####[facility] Keksfgobop0260[address] [place], [place] [address]Dr. Flaco Branden Urea nitrogen [Mass/Vol] 12.0 mg/dL Normal 7.0-18.0 [facility] Comment on above: Performed By: #### B MP ####[facility] Novzmupwpo6165[address] [place], [place] [address]Dr. Flaco Branden Urea nitrogen/Creatinine [Mass ratio] 7.5 mg/mg Normal [facility] Comment on above: Performed By: #### B MP ####[facility] Lnrjbxohsz6579[address] [place], [place] [address]Dr. Flaco Branden CBC AUTO DIFFon 11-12-2022 BASO # 0.0 103/ul Normal 0.0-0.1 [facility] Comment on above: Performed By: #### C BC ####[facility] Gycuavclgu9729 [place] [address]Dr. Flaco Lawrence Basophils/100 WBC (Bld) 0.4 % Normal 0.2-2.0 [facility] Comment on above: Performed By: #### C BC ####[facility] Mndletmaby2238 [place] [id number]. Flaco Lawrence EO # 0.1 103/ul Normal 0.0-0.7 [facility] Comment on above: Performed By: #### C BC ####[facility] Kvzzpijcvm2416 [place] [address]Dr. Flaco Lawrence Eosinophils/100 WBC (Bld) 0.6 % Critically low 0.9-7.0 [facility] Comment on above: Performed By: #### C BC ####[facility] Xitpoqbrmy262[address] [place], [place] [address]Dr. Flaco Lawrence Erythrocyte distribution width (RBC) [Ratio] 15.9 % Critically high 11.0-15.0 [facility] Comment on above: Performed By: #### C BC ####[facility] Conmmimbsq3689[address] [place], [place] [address]Dr. Flaco Lawrence Hematocrit (Bld) [Volume fraction] 36.0 % Critically low 42.0-54.0 [facility] Comment on above: Performed By: #### C BC ####[facility] Btcpeheush[address] [place], [place] [address]Dr. Flaco Lawrence Hemoglobin (Bld) [Mass/Vol] 11.9 g/dL Critically low 14.0-18.0 [facility] Comment on above: Performed By: #### C BC ####[facility] Cwkdgoiuur6000[address] [place], [place] [address]Dr. Flaco Lawrence IG # 0.03 10e3/ul Normal 0.00-0.03 [facility] Comment on above: Performed By: #### C BC ####[facility] Iguohlzueu2767[address] [place], [place] [address]Dr. Flaco Lawrence IG % 0.3 % Normal 0.0-0.5 [facility] Comment on above: Performed By: #### C BC ####[facility] Ogytttekja2586[address] [place], [place] [address]Dr. Flaco Lawrence LYMPH # 1.9 103/ul Normal 1.2-3.8 [facility] Comment on above: Performed By: #### C BC ####[facility] Boewdudscj2803 [place] [id number]. Flaco Branden Lymphocytes/100 WBC (Bld) 19.3 % Critically low 20.5-60.0 [facility] Comment on above: Performed By: #### C BC ####[facility] Siitnyrdxn3319 [place] [id number]. Purviedith Lawrence MANUAL DIFF REQ NO Normal [facility] Comment on above: Performed By: #### C BC ####[facility] Phpgwyivfp2915 [place] [id number]. Purviedith Lawrence MCH (RBC) [Entitic mass] 28.6 pg Normal 25.9-34.0 [facility] Comment on above: Performed By: #### C BC ####[facility] Twqtaruets2544[address] [place], [place] [address]Dr. Purviedith Lawrence MCHC (RBC) [Mass/Vol] 33.1 g/dL Normal 29.9-35.2 [facility] Comment on above: Performed By: #### C BC ####[facility] Vstqpgghkt9278 [place] [address]Dr. Purviedith Lawrence MCV (RBC) [Entitic vol] 86.5 fL Normal 80.0-94.0 [facility] Comment on above: Performed By: #### C BC ####[facility] Lhmbrbdifs5386 [place] [address]Dr. Flaco Lawrence MONO # 1.2 103/ul Critically high 0.3-0.[address] [facility] Comment on above: Performed By: #### C BC ####[facility] Dxiilbhxdz8106 [place] [id number]. Flaco Lawrence Monocytes/100 WBC (Bld) 12.5 % Critically high 1.7-12.0 [facility] Comment on above: Performed By: #### C BC ####[facility] Jqcjbigzpo0[address] [place], [place] [address]Dr. Flaco Lawrence NEUT # 6.5 103/ul Normal 1.4-6.5 [facility] Comment on above: Performed By: #### C BC ####[facility] Btlwltzvss1462 [place] [id number]. Flaco Lawrence Neutrophils/100 WBC (Bld) 66.9 % Normal 43.0-75.0 [facility] Comment on above: Performed By: #### C BC ####[facility] Svulwmzeoi3969 [place] [phone]. Flaco Lawrence Platelet mean volume (Bld) [Entitic vol] 9.6 fL Normal 9.5-13.5 [facility] Comment on above: Performed By: #### C BC ####[facility] Qqhwxgxbnt1069 [place] [id number]. Flaco Lawrence PLT 345 103/ul Normal 150-450 [facility] Comment on above: Performed By: #### C BC ####[facility] Alkyijqipc7236 [place] [id number]. Purviedith Lawrence RBC 4.16 106/ul Critically low 4.70-6.[address] [facility] Comment on above: Performed By: #### C BC ####[facility] Gdqhbsdtuo9785 [place] [id number]. Flaco Lawrence WBC 9.7 103/ul Normal 4.0-11.0 [facility] Comment on above: Performed By: #### C BC ####[facility] Mynkeeyeok8450 [place] [id number]. Flaco Branden ECHOCARDIO M/2D COMPLETEon 0 11-12-2022 ECHOCARDIO M/2D COMPLETE Normal [facility] MRA NECK WO CONon 11-12-2022 MRA NECK WO CON Normal [facility] MRI BRAIN WO CONon 3 MRI BRAIN WO CON Normal [facility] PROF CHEM 8 (BAS METB)on Anion gap [Moles/Vol] 12.7 mmol/L Normal [facility] Comment on above: Performed By: #### B MP ####[facility] Vrrdcsvjuo2387 [place] [address]Dr. Flaco Lawrence Calcium [Mass/Vol] 8.8 mg/dL Normal 8.5-10.1 [facility] Comment on above: Performed By: #### B MP ####[facility] Ccfgbkuhld2569 [place] [address]Dr. Flaco Branden Chloride [Moles/Vol] 102 mmol/L Normal 98-107 [facility] Comment on above: Performed By: #### B MP ####[facility] Ptfouqfmts4180 [place] [id number]. Flaco Lawrence CO2 [Moles/Vol] 24.9 mmol/L Normal 21.0-32.0 [facility] Comment on above: Performed By: #### B MP ####[facility] Jcnyyqsbls2247 [place] [address]Dr. Flaco Lawrence Creatinine [Mass/Vol] 1.58 mg/dL Critically high 0.70-1.30 [facility] Comment on above: Performed By: #### B MP ####[facility] Urkgwytxoc5[address] [place], [place] [address]Dr. Flaco Lawrence EGFR-AF SERBIAN 53 mL/min/1.73m2 Critically low >=60 [facility] Comment on above: Performed By: #### B MP ####[facility] Qvpjxdlcmy688[address] [place], [place] [address]Dr. Flaco Lawrence EGFR-NON AF SERBIAN 43 mL/min/1.73m2 Critically low >=60 [facility] Comment on above: Performed By: #### B MP ####[facility] Tygmedpbpz3822 [place] [address]Dr. Flaco Lawrence Glucose [Mass/Vol] 107 mg/dL Critically high 74-106 [facility] Comment on above: Performed By: #### B MP ####[facility] Gqldirlqtp3869[address] [place], [place] [address]Dr. Flaco Lawrence Potassium [Moles/Vol] 3.6 mmol/L Normal 3.5-5.1 [facility] Comment on above: Performed By: #### B MP ####[facility] Tbczcyyvpi9945[address] [place], [place] [address]Dr. Flaco Lawrence Sodium [Moles/Vol] 136 mmol/L Normal 136-145 [facility] Comment on above: Performed By: #### B MP ####[facility] Tyfwmcbfkb9934 [place] [id number]. Flaco Lawrence Urea nitrogen [Mass/Vol] 10.0 mg/dL Normal 7.0-18.0 [facility] Comment on above: Performed By: #### B MP ####[facility] Mqqxadsvdo2336[address] [place], [place] [address]Dr. Flaco Branden Urea nitrogen/Creatinine [Mass ratio] 6.3 mg/mg Normal [facility] Comment on above: Performed By: #### B MP ####[facility] Zemwzmgbrt194[address] [place], [place] [address]Dr. Flaco Branden CBC AUTO DIFFon 11-11-2022 BASO # 0.0 103/ul Normal 0.0-0.1 [facility] Comment on above: Performed By: #### C BC ####[facility] Tcptqcdmub5156[address] [place], [place] [address]Dr. Purviedith Lawrence Basophils/100 WBC (Bld) 0.4 % Normal 0.2-2.0 [facility] Comment on above: Performed By: #### C BC ####[facility] Fbxpgjackt643[address] [place], [place] [address]Dr. Flaco Branden EO # 0.1 103/ul Normal 0.0-0.7 [facility] Comment on above: Performed By: #### C BC ####[facility] Tpffnuqgne9[address] [place], [place] [address]Dr. Flaco Branden Eosinophils/100 WBC (Bld) 0.7 % Critically low 0.9-7.0 [facility] Comment on above: Performed By: #### C BC ####[facility] Cxflahdygt898[address] [place], [place] [address]Dr. Flaco Lawrence Erythrocyte distribution width (RBC) [Ratio] 16.3 % Critically high 11.0-15.0 [facility] Comment on above: Performed By: #### C BC ####[facility] Abewencnuc4374[address] [place], [place] [address]Dr. Flaco Lawrence Hematocrit (Bld) [Volume fraction] 37.4 % Critically low 42.0-54.0 [facility] Comment on above: Performed By: #### C BC ####[facility] Sskjocyzcb9855 [place] [address]DrJeramie Lawrence Hemoglobin (Bld) [Mass/Vol] 12.5 g/dL Critically low 14.0-18.0 [facility] Comment on above: Performed By: #### C BC ####[facility] Eznthyhqot2169 [place] [address]DrJeramie Lawrence IG # 0.03 10e3/ul Normal 0.00-0.03 [facility] Comment on above: Performed By: #### C BC ####[facility] Rroouvcycq3039[address] [place], [place] [address]DrJeramie Lawrence IG % 0.3 % Normal 0.0-0.5 [facility] Comment on above: Performed By: #### C BC ####[facility] Dscijjrvdm526[address] [place], [place] [address]DrJeramie Lawrence LYMPH # 2.0 103/ul Normal 1.2-3.8 [facility] Comment on above: Performed By: #### C BC ####[facility] Edpsgvasoi0016[address] [place], [place] [address]DrJeramie Lawrence Lymphocytes/100 WBC (Bld) 18.8 % Critically low 20.5-60.0 [facility] Comment on above: Performed By: #### C BC ####[facility] Iwvfkuthdh3953 [place] [address]DrJeramie Lawrence MANUAL DIFF REQ NO Normal [facility] Comment on above: Performed By: #### C BC ####[facility] Ywbbrtxmlz1058 [place] [id number] Lawrence MCH (RBC) [Entitic mass] 29.1 pg Normal 25.9-34.0 [facility] Comment on above: Performed By: #### C BC ####[facility] Isvrsonwiz7083 [place] [id number] Lawrence MCHC (RBC) [Mass/Vol] 33.4 g/dL Normal 29.9-35.2 [facility] Comment on above: Performed By: #### C BC ####[facility] Oqgvwfikoa0525 [place] [address]DrJeramie Flaco Branden MCV (RBC) [Entitic vol] 87.2 fL Normal 80.0-94.0 [facility] Comment on above: Performed By: #### C BC ####[facility] Fsjhnknksr0466 [place] [address]DrJeramie Lawrence MONO # 1.2 103/ul Critically high 0.3-0.[address] [facility] Comment on above: Performed By: #### C BC ####[facility] Tvfboztsrf8118 [place] [address]DrJeramie Lawrence Monocytes/100 WBC (Bld) 11.2 % Normal 1.7-12.0 [facility] Comment on above: Performed By: #### C BC ####[facility] Doqdegaine30[address] [place], [place] [address]DrJeramie Lawrence NEUT # 7.1 103/ul Critically high 1.4-6.[address] [facility] Comment on above: Performed By: #### C BC ####[facility] Mmbfutftsj6454[address] [place], [place] [address]DrJeramie Lawrence Neutrophils/100 WBC (Bld) 68.6 % Normal 43.0-75.0 [facility] Comment on above: Performed By: #### C BC ####[facility] Jdlkrdtjrg09[address] [place], [place] [address]DrJeramie Lawrence Platelet mean volume (Bld) [Entitic vol] 9.5 fL Normal 9.5-13.5 [facility] Comment on above: Performed By: #### C BC ####[facility] Wjebrtvcht37[address] [place], [place] [address]DrJeramie Lawrence PLT 351 103/ul Normal 150-450 [facility] Comment on above: Performed By: #### C BC ####[facility] [address]kuglsxb[address] [place], [place] [id number] Lawrence RBC 4.29 106/ul Critically low 4.70-6.[address] [facility] Comment on above: Performed By: #### C BC ####[facility] Lnkpravluy4955 [place], [place] [address]Yb. Flaco Lawrence WBC 10.4 103/ul Normal 4.0-11.0 [facility] Comment on above: Performed By: #### C BC ####[facility] Soczkfjmuk6584 [place], [place] [address]Ua. Flaco Lawrence CT HEAD WO CONon 11-11-2022 CT HEAD WO CON Normal [facility] Covid-19 PCR (CVDTBH)on 10-29 SARS-CoV-2 (COVID-19) RNA MARCO ANTONIO+probe Ql (Unsp spec) Not detected Normal NOT DETECTED [facility] Comment on above: Result Comment: [...] for this test is supported by the Delivery Crew Member of Health and Human Service's declaration that [...] be used). Performed By: #### C VDTBH ####[facility] Ptgxatoikw0804 [place], [place] [address]Yy. Flaco Lawrence LIPID PROFILEon 11-11-2022 CHOL-HDL RATIO NORM SEE BELOW Normal [facility] Comment on above: Result Comment: 3.3 - 4.4 LOW RISK 4.4 - 7.1 AVERAGE RISK 7.1 - 11.0 MODERATE RISK >11.0 HIGH RISK Performed By: #### L IPID, TSH ####[facility] Pvdexyngzr8851 [place], [place] [address]Ng. Flaco Lawrence Cholesterol [Mass/Vol] 176 mg/dL Normal <=200 [facility] Comment on above: Performed By: #### L IPID, TSH ####[facility] Pjomekxanz3182 [place], [place] [address]Ux. Flaco Lawrence Cholesterol in HDL [Mass/Vol] 40 mg/dL Normal 40-60 [facility] Comment on above: Performed By: #### L IPID, TSH ####[facility] Teafbuyivz8040 [place], [place] [address]Xp. Flaco Lawrence Cholesterol in LDL [Mass/Vol] 117.6 mg/dL Normal [facility] Comment on above: Performed By: #### L IPID, TSH ####[facility] Yhuyrsoqyw1242 [place], [place] [address]Sq. Purviedith Branden Cholesterol.total/Chol esterol in HDL [Mass ratio] 4.4 {ratio} Normal [facility] Comment on above: Performed By: #### L IPID, TSH ####[facility] Gbljgsghba8731 [place], [place] [address]Db. Purvilan Lawrence HDL NORMAL > or = 60 mg/dl - LO W CARDIOVASCULAR RISK <40 mg/dl - HIGH CARDIOVASCULAR RISK Normal [facility] Comment on above: Performed By: #### L IPID, TSH ####[facility] Bpexpujebx2356 [place], [place] [address]Tj. Purvilan Lawrence LDL CALC NORMAL SEE BELOW Normal [facility] Comment on above: Result Comment: <100 mg/dl OPTIMAL 100 - 129 mg/dl NEAR OR ABOVE OPTIMAL 130 - 159 mg/dl BORDERLINE HIGH 160 - 189 mg/dl HIGH >190 mg/dl VERY HIGH Performed By: #### L IPID, TSH ####[facility] Tlrmkjpwbm[address] [place] [id number]. Purvilan Lawrence Triglyceride [Mass/Vol] 92 mg/dL Normal <=150 [facility] Comment on above: Performed By: #### L IPID, TSH ####[facility] Oeoasybpza9[address] [place] [id number]. Purviedith Branden VLDL CALC 18.4 mg/dL Normal [facility] Comment on above: Performed By: #### L IPID, TSH ####[facility] Esowklnllp80[address] [place] [address]Dr. Flaco Lawrence PROF CHEM 8 (BAS METB)on Anion gap [Moles/Vol] 13.0 mmol/L Normal [facility] Comment on above: Performed By: #### B YEHUDA, HSTROPN ####[facility] Mpoilmkzcp20[address] [place] [address]Dr. Flaco Lawrence Calcium [Mass/Vol] 9.3 mg/dL Normal 8.5-10.1 [facility] Comment on above: Performed By: #### B YEHUDA, HSTROPN ####[facility] Zcbwocdpkb[address] [place], [place] [address]Dr. Flaco Lawrence Chloride [Moles/Vol] 101 mmol/L Normal 98-107 [facility] Comment on above: Performed By: #### B YEHUDA, HSTROPN ####[facility] Rpdkcpryjr[address] [place], [place] [address]Dr. Flaco Lawrence CO2 [Moles/Vol] 27.7 mmol/L Normal 21.0-32.0 [facility] Comment on above: Performed By: #### B YEHUDA, HSTROPN ####[facility] Umrfwsbbpt9[address] [place], [place] [address]Dr. Flaco Lawrence Creatinine [Mass/Vol] 1.75 mg/dL Critically high 0.70-1.30 [facility] Comment on above: Performed By: #### B YEHUDA, HSTROPN ####[facility] Mnrswymric8911[address] [place], [place] [address]Dr. Flaco Lawrence EGFR-AF SERBIAN 47 mL/min/1.73m2 Critically low >=60 [facility] Comment on above: Performed By: #### B YEHUDA, HSTROPN ####[facility] Kymnyxbaeq4[address] [place], [place] [address]Dr. Flaco Lawrence EGFR-NON AF SERBIAN 39 mL/min/1.73m2 Critically low >=60 [facility] Comment on above: Performed By: #### B YEHUDA, HSTROPN ####[facility] Yhjjisonps35[address] [place] [address]Dr. Flaco Lawrence Glucose [Mass/Vol] 97 mg/dL Normal 74-106 [facility] Comment on above: Performed By: #### B YEHUDA, HSTROPN ####[facility] Ohpbnkfgfn220[address] [place] [address]Dr. Flaco Lawrence Potassium [Moles/Vol] 3.7 mmol/L Normal 3.5-5.1 [facility] Comment on above: Performed By: #### B YEHUDA, HSTROPN ####[facility] Aryysryvjx52[address] [place] [address]Dr. Flaoc Lawrence Sodium [Moles/Vol] 138 mmol/L Normal 136-145 [facility] Comment on above: Performed By: #### B YEHUDA, HSTROPN ####[facility] Naicuhlzbs34[address] [place], [place] [address]Dr. Flaco Lawrence Urea nitrogen [Mass/Vol] 13.0 mg/dL Normal 7.0-18.0 [facility] Comment on above: Performed By: #### B YEHUDA, HSTROPN ####[facility] Dygsekgyka[address] [place], [place] [address]Dr. Flaco Lawrence Urea nitrogen/Creatinine [Mass ratio] 7.4 mg/mg Normal [facility] Comment on above: Performed By: #### B YEHUDA, HSTROPN ####[facility] Xuwbjyneeg5[address] [place], [place] [address]Dr. Flaco Lawrence PROTIMEon 11-11-2022 INR Coag (PPP) [Relative time] 1.05 {INR} Normal [facility] Comment on above: Performed By: #### P T, PTT ####[facility] Xlozipfato14[address] [place], [place] [address]Dr. Flaco Lawrence INR GUIDELINES SEE BELOW Normal [facility] Comment on above: Result Comment: RON RED INR: 2.0 - 3.0 CONDITIONS NOT LISTED BELOW 2.5 - 3.5 FOR PROSTHETIC HEART VALVE REPLACEMENT 2.5 - 3.5 RECURRENT THROMBOSIS Performed By: #### P T, PTT ####[facility] Dmqewymzym9872 [place] [address]Dr. Flaco Lawrence PT Coag (PPP) [Time] 11.1 s Normal 9.0-11.6 [facility] Comment on above: Performed By: #### P T, PTT ####[facility] Hjudvstkwx6587 [place] [address]Dr. Flaco Lawrence PTTon 11-11-2022 aPTT Coag (Bld) [Time] 34.3 s Normal 22.3-36.2 [facility] Comment on above: Performed By: #### P T, PTT ####[facility] Qhuqcursyd2668 [place] [address]Dr. Flaco Lawrence TROPONIN, HIGH SENSITIVITYon 11-11-2022 HSTROP 4.7 pg/mL Normal 4.0-76.1 [facility] Comment on above: Result Comment: CUT- OFF POINTS HAVE BEEN ESTABLISHED BASED ON THE FOURTH UNIVERSAL DEFINITIONS OF MYOCARDIALINFARCTION. THE UPPER REFERENCE LIMIT (URL) OF TROPONIN, DEFINED THE 99TH PERCENTILE OFcTnI DISTRIBUTION IN A REFERENCE POPULATION, HAS BEEN CONFIRMED THE DECISION THRESHOLDFOR PR DIAGNOSIS. Performed By: #### B MP, HSTROPN ####[facility] Ujchkrdzam[address] [place] [address]Dr. Flaco Lawrence TSHon 11-11-2022 TSH 0.829 uIU/mL Normal 0.358-3.740 [facility] Comment on above: Performed By: #### L IPID, TSH ####[facility] Mgobnpmbxa8977 [place] [address]Dr. Flaco Lawrence XR CHEST 1 Von 11-11-2022 XR CHEST 1 V Normal [facility] XR FOOT RT MIN 3 VIEWSon XR FOOT RT MIN 3 VIEWS Normal [facility] XR FOOT RT MIN 3 VIEWSon XR FOOT RT MIN 3 VIEWS Normal [facility] POINT OF CARE GLUCOSEon 12-2 Glucose [Mass/Vol] 87 mg/dL Normal 74-106 [facility] Comment on above: Performed By: #### P OCGLUC ####[facility] Wbtcbdzfdi3805 [place], [place] [address]Zq. Flaco Lawrence Glucose [Mass/Vol] 94 mg/dL Normal 74-106 [facility] Comment on above: Performed By: #### P OCGLUC ####[facility] Yys[address]xxio[address] [place], [place] [address]Ts. Flaco Lawrence XR FOOT RT 2Von 09-25-2022 XR FOOT RT 2V Normal [facility] XR FOOT RT MIN 3 VIEWSon XR FOOT RT MIN 3 VIEWS Normal [facility] XR WRIST RT MIN 3 Von 2021 XR WRIST RT MIN 3 V [facility] Covid-[facility] (CVDTB)on 08-29 SARS-CoV-2 (COVID-19) RNA MARCO ANTONIO+probe Ql (Unsp spec) Not detected Normal NOT DETECTED [facility] Comment on above: Result Comment: This test is not yet approved or cleared by the [place] FDA. When there are no FDA-approved or cleared tests available, and other criteria are met, FDA can make tests available under an emergency access mechanism called an Emergency Use Authorization (EUA). The EUA for this test is supported by the [place] of Health and Human Service's (HHS's) declaration [...] with SARS-CoV-2. Performed By: #### C VDTBH ####[facility] Idvvxutelr7853 [place], [place] [address]Xt. Flaco Lawrence PROF CHEM 8 (BAS METB)on Anion gap [Moles/Vol] 10.4 mmol/L Normal [facility] Comment on above: Performed By: #### B MP ####[facility] Ecgbysfwos4177 [place] [address]Dr. Flaco Lawrence Calcium [Mass/Vol] 8.7 mg/dL Normal 8.5-10.1 [facility] Comment on above: Performed By: #### B MP ####[facility] Cvgvovjzem6876 [place] [address]Dr. Flaco Lawrence Chloride [Moles/Vol] 104 mmol/L Normal 98-107 [facility] Comment on above: Performed By: #### B MP ####[facility] Lxdwkiombh0829[address] [place], [place] [address]Dr. Flaco Lwarence CO2 [Moles/Vol] 27.2 mmol/L Normal 21.0-32.0 [facility] Comment on above: Performed By: #### B MP ####[facility] Bqtqzwqupf279[address] [place], [place] [address]Dr. Flaco Lawrence Creatinine [Mass/Vol] 2.02 mg/dL Critically high 0.70-1.30 [facility] Comment on above: Performed By: #### B MP ####[facility] Nfaakhntll7949[address] [place], [place] [address]Dr. Flaco Lawrence EGFR-AF SERBIAN 40 mL/min/1.73m2 Critically low >=60 [facility] Comment on above: Performed By: #### B MP ####[facility] Iqtlqgytav[address] [place], [place] [address]Dr. Flaco Branden EGFR-NON AF SERBIAN 33 mL/min/1.73m2 Critically low >=60 [facility] Comment on above: Performed By: #### B MP ####[facility] Payrcimtyz432[address] [place], [place] [address]Dr. Purviedith Lawrence Glucose [Mass/Vol] 91 mg/dL Normal 74-106 [facility] Comment on above: Performed By: #### B MP ####[facility] Gqrvglfxvd0787[address] [place], [place] [address]Dr. Purviedith Branden Potassium [Moles/Vol] 3.6 mmol/L Normal 3.5-5.1 [facility] Comment on above: Performed By: #### B MP ####[facility] Ddcqmqkxwv1600[address] [place], [place] [address]Dr. Flaco Branden Sodium [Moles/Vol] 138 mmol/L Normal 136-145 [facility] Comment on above: Performed By: #### B MP ####[facility] Luaabtwawu2597[address] [place], [place] [address]Dr. Flaco Branden Urea nitrogen [Mass/Vol] 14.0 mg/dL Normal 7.0-18.0 [facility] Comment on above: Performed By: #### B MP ####[facility] Oqpmsgqovf5760[address] [place], [place] [address]Dr. Purviedith Branden Urea nitrogen/Creatinine [Mass ratio] 6.9 mg/mg Normal [facility] Comment on above: Performed By: #### B MP ####[facility] Vkmtywgjue2528[address] [place], [place] [address]Dr. Flaco Branden CBC AUTO DIFFon 08-15-2022 BASO # 0.1 103/ul Normal 0.0-0.1 [facility] Comment on above: Performed By: #### C BC ####[facility] Yxaiyxxbkn7639[address] [place], [place] [address]Dr. Flaco Branden Basophils/100 WBC (Bld) 0.8 % Normal 0.2-2.0 [facility] Comment on above: Performed By: #### C BC ####[facility] Ffvpafvkfh5868[address] [place], [place] [address]Dr. Flaco Branden EO # 0.1 103/ul Normal 0.0-0.7 [facility] Comment on above: Performed By: #### C BC ####[facility] Guevjavaug9065[address] [place], [place] [address]Dr. Flaco Lawrence Eosinophils/100 WBC (Bld) 1.4 % Normal 0.9-7.0 [facility] Comment on above: Performed By: #### C BC ####[facility] Nmjvffkhvp086[address] [place], [place] [address]Dr. Puvriedith Lawrence Erythrocyte distribution width (RBC) [Ratio] 13.6 % Normal 11.0-15.0 [facility] Comment on above: Performed By: #### C BC ####[facility] Junjjtinhl4705 [place] [address]DrJeramie Lawrence Hematocrit (Bld) [Volume fraction] 46.2 % Normal 42.0-54.0 [facility] Comment on above: Performed By: #### C BC ####[facility] Shevzkkiuq03[address] [place], [place] [address]DrJeramie Lawrence Hemoglobin (Bld) [Mass/Vol] 15.2 g/dL Normal 14.0-18.0 [facility] Comment on above: Performed By: #### C BC ####[facility] Okhuvquwjt5814[address] [place], [place] [address]DrJeramie Lawrence IG # 0.02 10e3/ul Normal 0.00-0.03 [facility] Comment on above: Performed By: #### C BC ####[facility] Vkwirvunmd[address] [place], [place] [address]DrJeramie Lawrence IG % 0.2 % Normal 0.0-0.5 [facility] Comment on above: Performed By: #### C BC ####[facility] Mzdqkbouzw65[address] [place], [place] [address]DrJeramie Lawrecne LYMPH # 1.8 103/ul Normal 1.2-3.8 [facility] Comment on above: Performed By: #### C BC ####[facility] Rucmvxvogx9550[address] [place], [place] [address]DrJeramie Lawrence Lymphocytes/100 WBC (Bld) 19.2 % Critically low 20.5-60.0 [facility] Comment on above: Performed By: #### C BC ####[facility] Yiymdsfrde5212[address] [place], [place] [address]DrJeramie Lawrence MANUAL DIFF REQ NO Normal [facility] Comment on above: Performed By: #### C BC ####[facility] Guorspabar528[address] [place], [place] [address]DrJeramie Lawrence MCH (RBC) [Entitic mass] 28.6 pg Normal 25.9-34.0 [facility] Comment on above: Performed By: #### C BC ####[facility] Hgvwbwdygm2609 [place] [address]Dr. Flaco Lawrence MCHC (RBC) [Mass/Vol] 32.9 g/dL Normal 29.9-35.2 [facility] Comment on above: Performed By: #### C BC ####[facility] Bmgatfhjen7645 [place] [address]DrJeramie Lawrence MCV (RBC) [Entitic vol] 86.8 fL Normal 80.0-94.0 [facility] Comment on above: Performed By: #### C BC ####[facility] Tdmiijdpar8139[address] [place], [place] [address]DrJeramie Lawrence MONO # 0.8 103/ul Normal 0.3-0.8 [facility] Comment on above: Performed By: #### C BC ####[facility] Mnyrrshdlv8[address] [place], [place] [address]Dr. Flaco Lawrence Monocytes/100 WBC (Bld) 8.7 % Normal 1.7-12.0 [facility] Comment on above: Performed By: #### C BC ####[facility] Uvohbrgppa4864[address] [place], [place] [address]DrJeramie Lawrence NEUT # 6.5 103/ul Normal 1.4-6.5 [facility] Comment on above: Performed By: #### C BC ####[facility] Iqmwwmezmt7588[address] [place], [place] [address]Dr. Flaco Lawrence Neutrophils/100 WBC (Bld) 69.7 % Normal 43.0-75.0 [facility] Comment on above: Performed By: #### C BC ####[facility] Elwwlqlbeb9167[address] [place], [place] [address]DrJeramie Lawrence Platelet mean volume (Bld) [Entitic vol] 9.8 fL Normal 9.5-13.5 [facility] Comment on above: Performed By: #### C BC ####[facility] Ghxlgaqlyy9622[address] [place], [place] [address]Dr. Flaco Lawrence PLT 503 103/ul Critically high 150-450 [facility] Comment on above: Performed By: #### C BC ####[facility] Ahmovpupko6122 [place] [address]Dr. Flaco Lawrence RBC 5.32 106/ul Normal 4.70-6.10 [facility] Comment on above: Performed By: #### C BC ####[facility] Aheyywdvgf4876[address] [place], [place] [address]Dr. Flaco Lawrence WBC 9.3 103/ul Normal 4.0-11.0 [facility] Comment on above: Performed By: #### C BC ####[facility] Fkodosvebw8706[address] [place], [place] [address]Dr. Flaco Branden PROTIMEon 08-15-2022 INR Coag (PPP) [Relative time] 1.73 {INR} Normal [facility] Comment on above: Performed By: #### P TT, PT ####[facility] Ihlwcmxjqa8711[address] [place], [place] [address]Dr. Flaco Lawrence INR GUIDELINES SEE BELOW Normal [facility] Comment on above: Result Comment: RON RED INR: 2.0 - 3.0 CONDITIONS NOT LISTED BELOW 2.5 - 3.5 FOR PROSTHETIC HEART VALVE REPLACEMENT 2.5 - 3.5 RECURRENT THROMBOSIS Performed By: #### P TT, PT ####[facility] Svlfciobtl9[address] [place], [place] [address]Dr. Flaco Lawrence PT Coag (PPP) [Time] 18.0 s Critically high 9.0-11.6 [facility] Comment on above: Performed By: #### P TT, PT ####[facility] Gqebbcrdyt388[address] [place], [place] [address]Dr. Flaco Branden PTTon 08-15-2022 aPTT Coag (Bld) [Time] 34.8 s Normal 22.3-36.2 [facility] Comment on above: Performed By: #### P TT, PT ####[facility] Ssdyozftnt7813[address] [place], [place] [address]Dr. Flaco Branden CBC AUTO DIFFon 08-02-2022 BASO # 0.0 103/ul Normal 0.0-0.1 [facility] Comment on above: Performed By: #### C BC ####[facility] Bcildincgr2264 [place] [address]Dr. Flaco Branden Basophils/100 WBC (Bld) 0.2 % Normal 0.2-2.0 [facility] Comment on above: Performed By: #### C BC ####[facility] Isipkpkorb6140[address] [place], [place] [address]Dr. Flaco Lawrence EO # 0.1 103/ul Normal 0.0-0.7 [facility] Comment on above: Performed By: #### C BC ####[facility] Hqvojulhvx7912[address] [place], [place] [address]Dr. Flaco Lawrence Eosinophils/100 WBC (Bld) 1.2 % Normal 0.9-7.0 [facility] Comment on above: Performed By: #### C BC ####[facility] Wgcjoalpap7684[address] [place], [place] [address]Dr. Purviedith Lawrence Erythrocyte distribution width (RBC) [Ratio] 13.2 % Normal 11.0-15.0 [facility] Comment on above: Performed By: #### C BC ####[facility] Qgfhzclgul7975[address] [place], [place] [address]Dr. Purviedith Lawrence Hematocrit (Bld) [Volume fraction] 42.6 % Normal 42.0-54.0 [facility] Comment on above: Performed By: #### C BC ####[facility] Npbqiowobz1474[address] [place], [place] [address]Dr. Flaco Lawrence Hemoglobin (Bld) [Mass/Vol] 14.0 g/dL Normal 14.0-18.0 [facility] Comment on above: Performed By: #### C BC ####[facility] Orkelmwhji374[address] [place], [place] [address]Dr. Flaco Lawrence IG # 0.05 10e3/ul Critically high 0.00-0.03 [facility] Comment on above: Performed By: #### C BC ####[facility] Xzwsydzcis37[address] [place], [place] [address]DrJeramie Lawrence IG % 0.5 % Normal 0.0-0.5 [facility] Comment on above: Performed By: #### C BC ####[facility] Igwdrcyqyu5165 [place] [address]DrJeramie Lawrence LYMPH # 1.5 103/ul Normal 1.2-3.8 [facility] Comment on above: Performed By: #### C BC ####[facility] Ekqoqpjsoc4142 [place] [id number] Lawrence Lymphocytes/100 WBC (Bld) 13.5 % Critically low 20.5-60.0 [facility] Comment on above: Performed By: #### C BC ####[facility] Wodijoviwo9967[address] [place], [place] [address]DrJeramie Lawrence MANUAL DIFF REQ NO Normal [facility] Comment on above: Performed By: #### C BC ####[facility] Kqejwtrnxn[address] [place], [place] [address]DrJeramie Lawrence MCH (RBC) [Entitic mass] 29.0 pg Normal 25.9-34.0 [facility] Comment on above: Performed By: #### C BC ####[facility] Llubdjlzhi7567[address] [place], [place] [address]DrJeramie Lawrence MCHC (RBC) [Mass/Vol] 32.9 g/dL Normal 29.9-35.2 [facility] Comment on above: Performed By: #### C BC ####[facility] [address]csbvy[address] [place], [place] [id number] Lawrence MCV (RBC) [Entitic vol] 88.2 fL Normal 80.0-94.0 [facility] Comment on above: Performed By: #### C BC ####[facility] Moborztfgx[address] [place], [place] [id number] Lawrence MONO # 1.0 103/ul Critically high 0.3-0.8 [facility] Comment on above: Performed By: #### C BC ####[facility] Gxmjhvlmtn[address] [place], [place] [id number] Lawrence Monocytes/100 WBC (Bld) 8.8 % Normal 1.7-12.0 [facility] Comment on above: Performed By: #### C BC ####[facility] Typfbntwsh8175 [place] [address]DrJeramie Flaco Lawrence NEUT # 8.4 103/ul Critically high 1.4-6.5 [facility] Comment on above: Performed By: #### C BC ####[facility] Ntypvpgurt3871 [place] [address]DrJeramie Lojaedith Branden Neutrophils/100 WBC (Bld) 75.8 % Critically high 43.0-75.0 [facility] Comment on above: Performed By: #### C BC ####[facility] Fdfaycewmo5850 [place] [address]DrJeramie Lawrence Platelet mean volume (Bld) [Entitic vol] 10.2 fL Normal 9.5-13.5 [facility] Comment on above: Performed By: #### C BC ####[facility] Yxisimgsjm0589 [place] [address]DrJeramie Lawrence PLT 329 103/ul Normal 150-450 [facility] Comment on above: Performed By: #### C BC ####[facility] Xkvhusyqqy64[address] [place], [place] [address]DrJeramie Lawrence RBC 4.83 106/ul Normal 4.70-6.10 [facility] Comment on above: Performed By: #### C BC ####[facility] Dgnhsyrbgs36[address] [place], [place] [address]DrJeramie Lawrence WBC 11.0 103/ul Normal 4.0-11.0 [facility] Comment on above: Performed By: #### C BC ####[facility] Cizutlsqko5580 [place] [address]DrJeramie Lawrence PROF 14(COMP METB)on 022 Albumin [Mass/Vol] 2.6 g/dL Critically low 3.4-5.0 [facility] Comment on above: Performed By: #### C MP ####[facility] Brkoxusxch9[address] [place], [place] [address]DrJeramie Sam Branden Albumin/Globulin [Mass ratio] 0.6 {ratio} Normal [facility] Comment on above: Performed By: #### C MP ####[facility] Leebslizol8498 [place] [address]Dr. Flaco Branden ALP [Catalytic activity/Vol] 58 U/L Normal 46-116 [facility] Comment on above: Performed By: #### C MP ####[facility] Oujnwgsbop4948 [place] [address]Dr. Flaco Branden ALT [Catalytic activity/Vol] 23 U/L Normal 16-63 [facility] Comment on above: Performed By: #### C MP ####[facility] Fhprkyubls2275[address] [place], [place] [address]Dr. Flaco Lawrence Anion gap [Moles/Vol] 14.9 mmol/L Normal [facility] Comment on above: Performed By: #### C MP ####[facility] Iryqjjqsnu7208[address] [place], [place] [address]Dr. Flaco Branden AST [Catalytic activity/Vol] 23 U/L Normal 15-37 [facility] Comment on above: Performed By: #### C MP ####[facility] Blkhewekbv17[address] [place], [place] [address]Dr. Purviedith Branden Bilirubin [Mass/Vol] 0.6 mg/dL Normal 0.2-1.0 [facility] Comment on above: Performed By: #### C MP ####[facility] Njfutjgvyk4971 [place] [address]Dr. Flaco Lawrence Calcium [Mass/Vol] 8.8 mg/dL Normal 8.5-10.1 [facility] Comment on above: Performed By: #### C MP ####[facility] Qjaddvcrxv[address] [place], [place] [address]Dr. Flaco Lawrence Chloride [Moles/Vol] 104 mmol/L Normal 98-107 [facility] Comment on above: Performed By: #### C MP ####[facility] Vgyqigifbm2224 [place] [address]Dr. Flaco Lawrence CO2 [Moles/Vol] 21.3 mmol/L Normal 21.0-32.0 [facility] Comment on above: Performed By: #### C MP ####[facility] Jiqguozgha6142 [place] [address]Dr. Flaco Branden Creatinine [Mass/Vol] 2.08 mg/dL Critically high 0.70-1.30 [facility] Comment on above: Performed By: #### C MP ####[facility] Soauevjpnh[address] [place] [address]Dr. Purviedith Lawrence EGFR-AF SERBIAN 38 mL/min/1.73m2 Critically low >=60 [facility] Comment on above: Performed By: #### C MP ####[facility] Pkpjsppshn1899 [place] [address]Dr. Flaco Lawrence EGFR-NON AF SERBIAN 32 mL/min/1.73m2 Critically low >=60 [facility] Comment on above: Performed By: #### C MP ####[facility] Gnusxpxwhy[address] [place], [place] [address]Dr. Purviedith Lawrence Globulin (S) [Mass/Vol] 4.1 g/dL Normal [facility] Comment on above: Performed By: #### C MP ####[facility] Zltsbqiuvv[address] [place], [place] [address]Dr. Flaco Lawrence Glucose [Mass/Vol] 87 mg/dL Normal 74-106 [facility] Comment on above: Performed By: #### C MP ####[facility] Xenhbioopu5175[address] [place], [place] [address]Dr. Flaco Lawrence Potassium [Moles/Vol] 4.2 mmol/L Normal 3.5-5.1 [facility] Comment on above: Performed By: #### C MP ####[facility] Icrcvbhgie9195[address] [place], [place] [address]Dr. Flaco Lawrence Protein [Mass/Vol] 6.7 g/dL Normal 6.4-8.2 [facility] Comment on above: Performed By: #### C MP ####[facility] Xufrldxuis1608[address] [place], [place] [address]Dr. Flaco Lawrence Sodium [Moles/Vol] 136 mmol/L Normal 136-145 [facility] Comment on above: Performed By: #### C MP ####[facility] Qvsbmcdseo918837 [address] [place], [place] [address]Dr. Flaco Lawrence Urea nitrogen [Mass/Vol] 32.0 mg/dL Critically high 7.0-18.0 [facility] Comment on above: Performed By: #### C MP ####[facility] Tttmaywvrw3574[address] [place], [place] [address]Dr. Flaco Lawrence Urea nitrogen/Creatinine [Mass ratio] 15.4 mg/mg Normal [facility] Comment on above: Performed By: #### C MP ####[facility] Cqifemmcqq9309[address] [place], [place] [address]Dr. Flaco Lawrence CBC AUTO DIFFon 08-01-2022 BASO # 0.0 103/ul Normal 0.0-0.1 [facility] Comment on above: Performed By: #### C BC ####[facility] Lmgncoikud9423[address] [place], [place] [address]Dr. Flaco Lawrence Basophils/100 WBC (Bld) 0.1 % Critically low 0.2-2.0 [facility] Comment on above: Performed By: #### C BC ####[facility] Qrsdvsgtqr9101[address] [place], [place] [address]Dr. Flaco Lawrence EO # 0.0 103/ul Normal 0.0-0.7 [facility] Comment on above: Performed By: #### C BC ####[facility] Bwkevmfkzz7675[address] [place], [place] [address]Dr. Flaco Lawrence Eosinophils/100 WBC (Bld) 0.3 % Critically low 0.9-7.0 [facility] Comment on above: Performed By: #### C BC ####[facility] Ojodgdmusw8766[address] [place], [place] [address]Dr. Flaco Lawrence Erythrocyte distribution width (RBC) [Ratio] 13.5 % Normal 11.0-15.0 [facility] Comment on above: Performed By: #### C BC ####[facility] Nzrxvqfjgv4997[address] [place], [place] [address]DrJeramie Lawrence Hematocrit (Bld) [Volume fraction] 42.0 % Normal 42.0-54.0 [facility] Comment on above: Performed By: #### C BC ####[facility] [address] [place] [address]Dr. Flaco Lawrence Hemoglobin (Bld) [Mass/Vol] 13.6 g/dL Critically low 14.0-18.0 [facility] Comment on above: Performed By: #### C BC ####[facility] Jqglssisxs23[address] [place], [place] [address]Dr. Flaco Lawrence IG # 0.04 10e3/ul Critically high 0.00-0.03 [facility] Comment on above: Performed By: #### C BC ####[facility] Ceapluxlpm1299[address] [place], [place] [address]Dr. Flaco Lawrence IG % 0.4 % Normal 0.0-0.5 [facility] Comment on above: Performed By: #### C BC ####[facility] Deqbyilyqq3415[address] [place], [place] [address]DrJeramie Lawrence LYMPH # 1.0 103/ul Critically low 1.2-3.8 [facility] Comment on above: Performed By: #### C BC ####[facility] Emncsqxxnh9823[address] [place], [place] [address]DrJeramie Lawrence Lymphocytes/100 WBC (Bld) 9.3 % Critically low 20.5-60.0 [facility] Comment on above: Performed By: #### C BC ####[facility] Dgybgwhobf119[address] [place], [place] [address]DrJeramie Lawrence MANUAL DIFF REQ NO Normal [facility] Comment on above: Performed By: #### C BC ####[facility] Lhrrdannin509[address] [place], [place] [address]DrJeramie Lawrence MCH (RBC) [Entitic mass] 28.7 pg Normal 25.9-34.0 [facility] Comment on above: Performed By: #### C BC ####[facility] Nvjgcvuedy7434[address] [place], [place] [address]Dr. Flaco Lawrence MCHC (RBC) [Mass/Vol] 32.4 g/dL Normal 29.9-35.2 [facility] Comment on above: Performed By: #### C BC ####[facility] Qxeyxebjgs37[address] [place] [id number]. Flaco Branden MCV (RBC) [Entitic vol] 88.6 fL Normal 80.0-94.0 [facility] Comment on above: Performed By: #### C BC ####[facility] Vvudjsurkz4030 [place] [id number]. Flaco Lawrence MONO # 1.2 103/ul Critically high 0.3-0.[address] [facility] Comment on above: Performed By: #### C BC ####[facility] Vnguvgkauq2429[address] [place], [place] [address]Dr. Flaco Lawrence Monocytes/100 WBC (Bld) 11.0 % Normal 1.7-12.0 [facility] Comment on above: Performed By: #### C BC ####[facility] Uqnxaozjaf7565[address] [place], [place] [address]Dr. Flaco Lawrence NEUT # 8.4 103/ul Critically high 1.4-6.[address] [facility] Comment on above: Performed By: #### C BC ####[facility] Lihnwtrtjg35[address] [place], [place] [address]Dr. Flaco Lawrence Neutrophils/100 WBC (Bld) 78.9 % Critically high 43.0-75.0 [facility] Comment on above: Performed By: #### C BC ####[facility] Fppfldpoad3978[address] [place], [place] [address]Dr. Falco Lawrence Platelet mean volume (Bld) [Entitic vol] 10.0 fL Normal 9.5-13.5 [facility] Comment on above: Performed By: #### C BC ####[facility] Ownxcifgky9825[address] [place], [place] [id number]. Flaco Lawrence PLT 308 103/ul Normal 150-450 [facility] Comment on above: Performed By: #### C BC ####[facility] Hbqkzinwiw4[address] [place] [address]Dr. Purviedith Branden RBC 4.74 106/ul Normal 4.70-6.10 [facility] Comment on above: Performed By: #### C BC ####[facility] Zwmxseinuy39[address] [place] [address]Dr. Purviedith Branden WBC 10.7 103/ul Normal 4.0-11.0 [facility] Comment on above: Performed By: #### C BC ####[facility] Ucnohhzhku2536[address] [place], [place] [address]DrJeramie Lawrence PROF 14(COMP METB)on 022 Albumin [Mass/Vol] 2.6 g/dL Critically low 3.4-5.0 [facility] Comment on above: Performed By: #### C MP ####[facility] Vwhjgqamnv2432[address] [place], [place] [address]Dr. Flaco Lawrence Albumin/Globulin [Mass ratio] 0.6 {ratio} Normal [facility] Comment on above: Performed By: #### C MP ####[facility] Maahiihhqe7165[address] [place], [place] [address]Dr. Flaco Lawrence ALP [Catalytic activity/Vol] 58 U/L Normal 46-116 [facility] Comment on above: Performed By: #### C MP ####[facility] Awnxmrnsdp8978[address] [place], [place] [address]Dr. Flaco Lawrence ALT [Catalytic activity/Vol] 24 U/L Normal 16-63 [facility] Comment on above: Performed By: #### C MP ####[facility] Ozjsddcgfo7495[address] [place], [place] [address]DrJeramie Lawrence Anion gap [Moles/Vol] 14.8 mmol/L Normal [facility] Comment on above: Performed By: #### C MP ####[facility] Elqeojuxgv8610[address] [place], [place] [address]DrJeramie Lawrence AST [Catalytic activity/Vol] 33 U/L Normal 15-37 [facility] Comment on above: Performed By: #### C MP ####[facility] Elpixokeor896[address] [place], [place] [address]Dr. Flaco Lawrence Bilirubin [Mass/Vol] 1.0 mg/dL Normal 0.2-1.0 [facility] Comment on above: Performed By: #### C MP ####[facility] Mikfinqmqs8792 [place] [id number]. Flaco Lawrence Calcium [Mass/Vol] 8.7 mg/dL Normal 8.5-10.1 [facility] Comment on above: Performed By: #### C MP ####[facility] Qkkzdcmtxw6127[address] [place], [place] [id number]. Flaco Branden Chloride [Moles/Vol] 104 mmol/L Normal 98-107 [facility] Comment on above: Performed By: #### C MP ####[facility] Papfznopkt2696[address] [place], [place] [address]Dr. Flaco Branden CO2 [Moles/Vol] 21.2 mmol/L Normal 21.0-32.0 [facility] Comment on above: Performed By: #### C MP ####[facility] Xhcbaroyqt2927[address] [place], [place] [address]Dr. Flaco Branden Creatinine [Mass/Vol] 1.90 mg/dL Critically high 0.70-1.30 [facility] Comment on above: Performed By: #### C MP ####[facility] Svwwbooanp9530[address] [place], [place] [address]Dr. Purviedith Branden EGFR-AF SERBIAN 43 mL/min/1.73m2 Critically low >=60 [facility] Comment on above: Performed By: #### C MP ####[facility] Rebmfbsidp0930[address] [place], [place] [address]Dr. Purviedith Branden EGFR-NON AF SERBIAN 35 mL/min/1.73m2 Critically low >=60 [facility] Comment on above: Performed By: #### C MP ####[facility] Mnzdbehnso5028[address] [place], [place] [address]Dr. Flaco Lawrence Globulin (S) [Mass/Vol] 4.0 g/dL Normal [facility] Comment on above: Performed By: #### C MP ####[facility] Zkwpbjuezx2808[address] [place], [place] [address]Dr. Flaco Lawrence Glucose [Mass/Vol] 82 mg/dL Normal 74-106 [facility] Comment on above: Performed By: #### C MP ####[facility] Kwgipfqsys[address] [place] [address]Dr. Flaco Lawrence Potassium [Moles/Vol] 4.0 mmol/L Normal 3.5-5.1 [facility] Comment on above: Performed By: #### C MP ####[facility] Yjallwojbf7384[address] [place], [place] [address]Dr. Flaco Lawrence Protein [Mass/Vol] 6.6 g/dL Normal 6.4-8.2 [facility] Comment on above: Performed By: #### C MP ####[facility] Ffnbeqfcco8640[address] [place], [place] [address]Dr. Flaco Lawrence Sodium [Moles/Vol] 136 mmol/L Normal 136-145 [facility] Comment on above: Performed By: #### C MP ####[facility] Yzkeboadam4034[address] [place], [place] [address]Dr. Flaco Lawrence Urea nitrogen [Mass/Vol] 29.0 mg/dL Critically high 7.0-18.0 [facility] Comment on above: Performed By: #### C MP ####[facility] Aawnnbckoh1730[address] [place], [place] [address]Dr. Flaco Lawrence Urea nitrogen/Creatinine [Mass ratio] 15.3 mg/mg Normal [facility] Comment on above: Performed By: #### C MP ####[facility] Vrstkjhttq8134[address] [place], [place] [address]Dr. Flaco Lawrence CBC AUTO DIFFon 07-31-2022 BASO # 0.0 103/ul Normal 0.0-0.1 [facility] Comment on above: Performed By: #### C BC ####[facility] Mofidzxnuf7339[address] [place], [place] [address]Dr. Flaco Lawrence Basophils/100 WBC (Bld) 0.2 % Normal 0.2-2.0 [facility] Comment on above: Performed By: #### C BC ####[facility] Sscp[address]taed[address] [place] [address]Dr. Flaco Lawrence EO # 0.0 103/ul Normal 0.0-0.7 [facility] Comment on above: Performed By: #### C BC ####[facility] Hxwqbarhvj[address] [place], [place] [address]Dr. Flaco Lawrence Eosinophils/100 WBC (Bld) 0.1 % Critically low 0.9-7.0 [facility] Comment on above: Performed By: #### C BC ####[facility] Nbugorayfk3637[address] [place], [place] [address]Dr. Flaco Lawrence Erythrocyte distribution width (RBC) [Ratio] 13.7 % Normal 11.0-15.0 [facility] Comment on above: Performed By: #### C BC ####[facility] Pshpcqnzoo0[address] [place], [place] [address]Dr. Flaco Lawrence Hematocrit (Bld) [Volume fraction] 40.1 % Critically low 42.0-54.0 [facility] Comment on above: Performed By: #### C BC ####[facility] Zsywpowwcn5[address] [place], [place] [address]Dr. Flaco Lawrence Hemoglobin (Bld) [Mass/Vol] 13.1 g/dL Critically low 14.0-18.0 [facility] Comment on above: Performed By: #### C BC ####[facility] Wvsxrwwoje3095[address] [place], [place] [address]Dr. Flaco Lawrence IG # 0.03 10e3/ul Normal 0.00-0.03 [facility] Comment on above: Performed By: #### C BC ####[facility] Tpnwmlvwnr7794[address] [place], [place] [address]Dr. Flaco Lawrence IG % 0.3 % Normal 0.0-0.5 [facility] Comment on above: Performed By: #### C BC ####[facility] Tholwelsbo[address] [place], [place] [address]Dr. Flaco Lawrence LYMPH # 1.7 103/ul Normal 1.2-3.8 [facility] Comment on above: Performed By: #### C BC ####[facility] Icougwtytg59[address] [place] [address]Dr. Flaco Branden Lymphocytes/100 WBC (Bld) 16.2 % Critically low 20.5-60.0 [facility] Comment on above: Performed By: #### C BC ####[facility] Ewwffaybjm03[address] [place] [address]Dr. Flaco Branden MANUAL DIFF REQ NO Normal [facility] Comment on above: Performed By: #### C BC ####[facility] Oemyapjtpb69[address] [place] [address]Dr. Flaco Branden MCH (RBC) [Entitic mass] 29.2 pg Normal 25.9-34.0 [facility] Comment on above: Performed By: #### C BC ####[facility] Wpvuqmyscl3344[address] [place], [place] [address]Dr. Flaco Branden MCHC (RBC) [Mass/Vol] 32.7 g/dL Normal 29.9-35.2 [facility] Comment on above: Performed By: #### C BC ####[facility] Tbhivlkljx15[address] [place] [address]Dr. Purviedith Lawrence MCV (RBC) [Entitic vol] 89.3 fL Normal 80.0-94.0 [facility] Comment on above: Performed By: #### C BC ####[facility] Emqhqcvjgs5[address] [place], [place] [address]Dr. Flaco Lawrence MONO # 1.2 103/ul Critically high 0.3-0.[address] [facility] Comment on above: Performed By: #### C BC ####[facility] Bpaafoprup23[address] [place] [address]Dr. Purviedith Lawrence Monocytes/100 WBC (Bld) 11.1 % Normal 1.7-12.0 [facility] Comment on above: Performed By: #### C BC ####[facility] Oyycklxsvz499[address] [place], [place] [address]Dr. Flaco Lawrence NEUT # 7.7 103/ul Critically high 1.4-6.[address] [facility] Comment on above: Performed By: #### C BC ####[facility] Dtmhpxbbyv4596 [place] [id number]. Flaco Lawrence Neutrophils/100 WBC (Bld) 72.1 % Normal 43.0-75.0 [facility] Comment on above: Performed By: #### C BC ####[facility] Gkycvdzwwe56[address] [place] [id number]. Flaco Lawrence Platelet mean volume (Bld) [Entitic vol] 9.9 fL Normal 9.5-13.5 [facility] Comment on above: Performed By: #### C BC ####[facility] Udjqmdzufx40[address] [place] [id number]. Flaco Lawrence PLT 263 103/ul Normal 150-450 [facility] Comment on above: Performed By: #### C BC ####[facility] Hkhrofafnf1871 [place] [id number]. Flaco Lawrence RBC 4.49 106/ul Critically low 4.70-6.10 [facility] Comment on above: Performed By: #### C BC ####[facility] Vejithsnyw8315 [place] [id number]. Purviedith Branden WBC 10.7 103/ul Normal 4.0-11.0 [facility] Comment on above: Performed By: #### C BC ####[facility] Ncaranxcrz3078 [place] [id number]. Flaco Lawrence PROF 14(COMP METB)on 022 Albumin [Mass/Vol] 2.8 g/dL Critically low 3.4-5.0 [facility] Comment on above: Performed By: #### C MP ####[facility] Ajpaxqwjqu5255 [place] [id number]. Flaco Lawrence Albumin/Globulin [Mass ratio] 0.8 {ratio} Normal [facility] Comment on above: Performed By: #### C MP ####[facility] Wrmdaxkevn3358 [place] [id number]. Flaco Branden ALP [Catalytic activity/Vol] 59 U/L Normal 46-116 [facility] Comment on above: Performed By: #### C MP ####[facility] Vdqlofdihq6250 [place] [id number]. Flaco Lawrence ALT [Catalytic activity/Vol] 30 U/L Normal 16-63 [facility] Comment on above: Performed By: #### C MP ####[facility] Xlmrynugru7171 [place] [address]Dr. Flaco Lawrence Anion gap [Moles/Vol] 14.8 mmol/L Normal [facility] Comment on above: Performed By: #### C MP ####[facility] Yrxdvfnlvp2219 [place] [address]Dr. Flaco Lawrence AST [Catalytic activity/Vol] 56 U/L Critically high 15-37 [facility] Comment on above: Performed By: #### C MP ####[facility] Cqqekqfxvw4[address] [place], [place] [address]Dr. Flaco Lawrence Bilirubin [Mass/Vol] 0.8 mg/dL Normal 0.2-1.0 [facility] Comment on above: Performed By: #### C MP ####[facility] Rzysgfagdy3[address] [place], [place] [address]Dr. Flaco Lawrence Calcium [Mass/Vol] 9.0 mg/dL Normal 8.5-10.1 [facility] Comment on above: Performed By: #### C MP ####[facility] Nhqkqrrxkr074[address] [place], [place] [address]Dr. Flaco Lawrence Chloride [Moles/Vol] 106 mmol/L Normal 98-107 [facility] Comment on above: Performed By: #### C MP ####[facility] Spdtwnkcqj9922 [place] [address]Dr. Flaco Lawrence CO2 [Moles/Vol] 24.7 mmol/L Normal 21.0-32.0 [facility] Comment on above: Performed By: #### C MP ####[facility] Hujlfiejly[address] [place], [place] [address]Dr. Flaco Lawrence Creatinine [Mass/Vol] 2.12 mg/dL Critically high 0.70-1.30 [facility] Comment on above: Performed By: #### C MP ####[facility] Uxdileuugl8961 [place] [id number]. Flaco Lawrence EGFR-AF SERBIAN 38 mL/min/1.73m2 Critically low >=60 [facility] Comment on above: Performed By: #### C MP ####[facility] Vsweemmbcc8375 [place] [id number]. Flaco Lawrence EGFR-NON AF SERBIAN 31 mL/min/1.73m2 Critically low >=60 [facility] Comment on above: Performed By: #### C MP ####[facility] Krpjfwsyky6756 [place] [id number]. Flaco Lawrence Globulin (S) [Mass/Vol] 3.7 g/dL Normal [facility] Comment on above: Performed By: #### C MP ####[facility] Ymmvavhewm7[address] [place] [address]Dr. Flaco Lawrence Glucose [Mass/Vol] 79 mg/dL Normal 74-106 [facility] Comment on above: Performed By: #### C MP ####[facility] Oteuwmerir[address] [place] [address]Dr. Flaco Lawrence Potassium [Moles/Vol] 3.5 mmol/L Normal 3.5-5.1 [facility] Comment on above: Performed By: #### C MP ####[facility] Njfqcnlcbo8544 [place] [address]Dr. Flaco Lawrence Protein [Mass/Vol] 6.5 g/dL Normal 6.4-8.2 [facility] Comment on above: Performed By: #### C MP ####[facility] Ojqmpfjifi2791 [place] [address]Dr. Flaco Lawrence Sodium [Moles/Vol] 142 mmol/L Normal 136-145 [facility] Comment on above: Performed By: #### C MP ####[facility] Rgaoqlhgbo0881 [place] [address]Dr. Flaco Lawrence Urea nitrogen [Mass/Vol] 32.0 mg/dL Critically high 7.0-18.0 [facility] Comment on above: Performed By: #### C MP ####[facility] Txyimyfeiv4341 [place] [address]Dr. Flaco Lawrence Urea nitrogen/Creatinine [Mass ratio] 15.1 mg/mg Normal [facility] Comment on above: Performed By: #### C MP ####[facility] Dihwsgxpzz5801[address] [place], [place] [address]Dr. Flaco Lawrence T4on 07-31-2022 T4 [Mass/Vol] 7.10 ug/dL Normal 4.50-12.10 [facility] Comment on above: Performed By: #### T SH, T4 ####[facility] Eguixwauur9384[address] [place], [place] [address]Dr. Flaco Lawrence TSHon 07-31-2022 TSH 0.871 uIU/mL Normal 0.358-3.740 [facility] Comment on above: Performed By: #### T SH, T4 ####[facility] Yuttaoszju4195[address] [place], [place] [address]Dr. Flaco Lawrence VIT B12 AND FOLATEon 022 Cobalamin (Vitamin B12) [Mass/Vol] 130.0 pg/mL Critically low 193.0-986.0 [facility] Comment on above: Performed By: #### B 12FOL ####[facility] Pyuuanyuvs7258[address] [place], [place] [address]Dr. Flaco Lawrence FOLATE 6.20 ng/mL Critically low 8.60-58.90 [facility] Comment on above: Performed By: #### B 12FOL ####[facility] Kupqknpbvr0170[address] [place], [place] [address]Dr. Flaco Lawrence AMMONIAon 07-30-2022 Ammonia (P) [Mass/Vol] ug/dL Critically low 11-32 [facility] Comment on above: Performed By: #### A MM ####[facility] Zooxwoqyui646[address] [place], [place] [address]Dr. Flaco Lawrence CBC AUTO DIFFon 07-30-2022 BASO # 0.0 103/ul Normal 0.0-0.1 [facility] Comment on above: Performed By: #### C BC ####[facility] Nulmrbjcqw12[address] [place] [address]Dr. Flaco Lawrence Basophils/100 WBC (Bld) 0.1 % Critically low 0.2-2.0 [facility] Comment on above: Performed By: #### C BC ####[facility] Mvdpaitjtz[address] [place], [place] [address]Dr. Flaco Lawrence EO # 0.0 103/ul Normal 0.0-0.7 [facility] Comment on above: Performed By: #### C BC ####[facility] Drmksfiryk6367[address] [place], [place] [address]Dr. Flaco Lawrence Eosinophils/100 WBC (Bld) 0.1 % Critically low 0.9-7.0 [facility] Comment on above: Performed By: #### C BC ####[facility] Vrgxltceud687[address] [place], [place] [address]Dr. Flaco Lawrence Erythrocyte distribution width (RBC) [Ratio] 13.5 % Normal 11.0-15.0 [facility] Comment on above: Performed By: #### C BC ####[facility] Uxfnbvqoxb[address] [place], [place] [address]Dr. Flaco Lawrence Hematocrit (Bld) [Volume fraction] 37.8 % Critically low 42.0-54.0 [facility] Comment on above: Performed By: #### C BC ####[facility] Nicihdqwlx2988[address] [place], [place] [address]Dr. Flaco Lawrence Hemoglobin (Bld) [Mass/Vol] 12.8 g/dL Critically low 14.0-18.0 [facility] Comment on above: Performed By: #### C BC ####[facility] Xwtshqllyv[address] [place], [place] [address]Dr. Flaco Lawrence IG # 0.06 10e3/ul Critically high 0.00-0.03 [facility] Comment on above: Performed By: #### C BC ####[facility] Aakggdbtoo[address] [place], [place] [address]Dr. Flaco Lawrence IG % 0.4 % Normal 0.0-0.5 [facility] Comment on above: Performed By: #### C BC ####[facility] Vnxmijhjyx1562 [place], [place] [address]Oy. Flaco Branden LYMPH # 1.0 103/ul Critically low 1.2-3.8 [facility] Comment on above: Performed By: #### C BC ####[facility] Fcvlfmwhis2008 [place], [place] [address]Xg. Flaco Branden Lymphocytes/100 WBC (Bld) 7.0 % Critically low 20.5-60.0 [facility] Comment on above: Performed By: #### C BC ####[facility] Atdjlaucag1826 [place] [id number]. Purviedith Lawrence MANUAL DIFF REQ NO Normal [facility] Comment on above: Performed By: #### C BC ####[facility] Txvqetddeu7701 [place] [id number]. Flaco Branden MCH (RBC) [Entitic mass] 29.6 pg Normal 25.9-34.0 [facility] Comment on above: Performed By: #### C BC ####[facility] Abwuaenatg5267 [place] [id number]. Flaco Branden MCHC (RBC) [Mass/Vol] 33.9 g/dL Normal 29.9-35.2 [facility] Comment on above: Performed By: #### C BC ####[facility] Xvtcmmdwfz0603 [place] [id number]. Flaco Lawrence MCV (RBC) [Entitic vol] 87.3 fL Normal 80.0-94.0 [facility] Comment on above: Performed By: #### C BC ####[facility] Nzdqjucfsj5156 [place] [id number]. Purviedith Lawrence MONO # 1.4 103/ul Critically high 0.3-0.[address] [facility] Comment on above: Performed By: #### C BC ####[facility] Tzhkvjcppt4115 [place] [id number]. Purviedith Lawrence Monocytes/100 WBC (Bld) 9.2 % Normal 1.7-12.0 [facility] Comment on above: Performed By: #### C BC ####[facility] Dsloqxxtwd3258 [place], [place] [address]Bj. Flaco Lawrence NEUT # 12.3 103/ul Critically high 1.4-6.5 [facility] Comment on above: Performed By: #### C BC ####[facility] Ijwqlfdhrb4687 [place], [place] [address]Oz. Flaco Lawrence Neutrophils/100 WBC (Bld) 83.2 % Critically high 43.0-75.0 [facility] Comment on above: Performed By: #### C BC ####[facility] Tvuifjaepb2593 [place] [id number]. Flaco Lawrence Platelet mean volume (Bld) [Entitic vol] 10.4 fL Normal 9.5-13.5 [facility] Comment on above: Performed By: #### C BC ####[facility] Ltkzqpzicl5568 [place] [id number]. Flaco Lawrence PLT 266 103/ul Normal 150-450 [facility] Comment on above: Performed By: #### C BC ####[facility] Rebzxdeppm2775 [place] [id number]. Flaco Lawrence RBC 4.33 106/ul Critically low 4.70-6.[address] [facility] Comment on above: Performed By: #### C BC ####[facility] Dqispdgtnx3570 [place] [id number]. Flaco Lawrence WBC 14.8 103/ul Critically high 4.0-11.0 [facility] Comment on above: Performed By: #### C BC ####[facility] Esqdjxlifl5119 [place] [id number]. Flaco Lawrence CRPon 07-30-2022 CRP 12.2 mg/dL Critically high <=1.[address] [facility] Comment on above: Performed By: #### C RP ####[facility] Bwtnrvlzol5422 [place] [id number]. Flaco Lawrence CT FOOT RT WO CONon 07-30-[address] FOOT RT WO CON Normal [facility] MRI BRAIN WO CONon 2 MRI BRAIN WO CON Normal [facility] PROF 14(COMP METB)on 022 Albumin [Mass/Vol] 2.7 g/dL Critically low 3.4-5.0 [facility] Comment on above: Performed By: #### C MP ####[facility] Wlzmeofiqv9418 [place] [address]Dr. Flaco Lawrence Albumin/Globulin [Mass ratio] 0.7 {ratio} Normal [facility] Comment on above: Performed By: #### C MP ####[facility] Pvjglguiuc6848 [place] [address]Dr. Flaco Lawrence ALP [Catalytic activity/Vol] 61 U/L Normal 46-116 [facility] Comment on above: Performed By: #### C MP ####[facility] Clgonxgqsm8343 [place] [address]Dr. Flaco Lawrence ALT [Catalytic activity/Vol] 27 U/L Normal 16-63 [facility] Comment on above: Performed By: #### C MP ####[facility] Cuquoyfebb[address] [place], [place] [address]Dr. Flaco Lawrence Anion gap [Moles/Vol] 16.1 mmol/L Normal [facility] Comment on above: Performed By: #### C MP ####[facility] Inpkvlmasl9575[address] [place], [place] [address]Dr. Flaco Lawrence AST [Catalytic activity/Vol] 39 U/L Critically high 15-37 [facility] Comment on above: Performed By: #### C MP ####[facility] Yglfpapytc2526[address] [place], [place] [address]Dr. Flaco Lawrence Bilirubin [Mass/Vol] 1.1 mg/dL Critically high 0.2-1.0 [facility] Comment on above: Performed By: #### C MP ####[facility] Rptljgbntq5458[address] [place], [place] [address]Dr. Flaco Lawrence Calcium [Mass/Vol] 9.0 mg/dL Normal 8.5-10.1 [facility] Comment on above: Performed By: #### C MP ####[facility] Hzkcsqrokc3370[address] [place], [place] [address]Dr. Flaco Lawrence Chloride [Moles/Vol] 103 mmol/L Normal 98-107 [facility] Comment on above: Performed By: #### C MP ####[facility] Rnfjinmlkx9715 [place] [address]Dr. Flaco Lawrence CO2 [Moles/Vol] 21.8 mmol/L Normal 21.0-32.0 [facility] Comment on above: Performed By: #### C MP ####[facility] Fbmerxghfv0036 [place] [address]Dr. Flaco Lawrence Creatinine [Mass/Vol] 2.03 mg/dL Critically high 0.70-1.30 [facility] Comment on above: Performed By: #### C MP ####[facility] Kxfvxktlaj8499[address] [place], [place] [address]Dr. Flaco Lawrence EGFR-AF SERBIAN 39 mL/min/1.73m2 Critically low >=60 [facility] Comment on above: Performed By: #### C MP ####[facility] Pxpfdxauhz436[address] [place], [place] [address]Dr. lFaco Lawrence EGFR-NON AF SERBIAN 33 mL/min/1.73m2 Critically low >=60 [facility] Comment on above: Performed By: #### C MP ####[facility] Rqtpufosmq124[address] [place], [place] [address]Dr. Flaco Branden Globulin (S) [Mass/Vol] 3.9 g/dL Normal [facility] Comment on above: Performed By: #### C MP ####[facility] Xriytakhke7408 [place] [address]Dr. Flaco Branden Glucose [Mass/Vol] 122 mg/dL Critically high 74-106 [facility] Comment on above: Performed By: #### C MP ####[facility] Fvibcmuqpc823[address] [place], [place] [address]Dr. Flaco Branden Potassium [Moles/Vol] 2.9 mmol/L Critically low 3.5-5.1 [facility] Comment on above: Performed By: #### C MP ####[facility] Hujddjpfqw8414[address] [place], [place] [address]Dr. Purviedith Lawrence Protein [Mass/Vol] 6.6 g/dL Normal 6.4-8.2 [facility] Comment on above: Performed By: #### C MP ####[facility] Hocobxismk5011 [place] [address]Dr. Flaco Lawrence Sodium [Moles/Vol] 139 mmol/L Normal 136-145 [facility] Comment on above: Performed By: #### C MP ####[facility] Jvhpsjhiap820[address] [place], [place] [address]Dr. Flaco Lawrence Urea nitrogen [Mass/Vol] 30.0 mg/dL Critically high 7.0-18.0 [facility] Comment on above: Performed By: #### C MP ####[facility] Gxmsfgoniv110337 [address] [place], [place] [address]Dr. Flaco Lawrence Urea nitrogen/Creatinine [Mass ratio] 14.8 mg/mg Normal [facility] Comment on above: Performed By: #### C MP ####[facility] Clzvkrukze454337 [address] [place], [place] [address]Dr. Flaco Lawrence URIC ACID SERUMon 07-30-2022 Urate [Mass/Vol] 8.8 mg/dL Critically high 3.5-7.2 [facility] Comment on above: Performed By: #### U DAVID ####[facility] Ghdklbicxf7835[address] [place], [place] [address]Dr. Flaco Lawrence AMMONIAon 07-29-2022 Ammonia (P) [Mass/Vol] ug/dL Critically low 11-32 [facility] Comment on above: Performed By: #### A MM ####[facility] Ljpebmvssr3877 [place] [address]Dr. Flaco Lawrence BLOOD GASES BTYon 07-29-2022 02 MODE ROOM AIR Normal [facility] Comment on above: Performed By: #### A BG ####[facility] Vnuoxhgfdu6000[address] [place], [place] [address]Dr. Flaco Lawrence ALLENS TEST Positive Normal [facility] Comment on above: Performed By: #### A BG ####[facility] Bewxokjwee6325 [place] [address]Dr. Flaco Lawrence Base excess Calc (Bld) [Moles/Vol] -3.7000 mmol/L Critically low -2.0-2.0 [facility] Comment on above: Performed By: #### A BG ####[facility] Mxdnjrmfat7450 [place] [address]Dr. Flaco Lawrence BIPAP PRESSURE Normal [facility] Comment on above: Performed By: #### A BG ####[facility] Bajlbsddpz0567[address] [place], [place] [address]Dr. Flaco Lawrence CPAP Normal [facility] Comment on above: Performed By: #### A BG ####[facility] Gjicxetofc8[address] [place], [place] [address]Dr. Flaco Lawrence FIO2 Normal [facility] Comment on above: Performed By: #### A BG ####[facility] Jmpixkmiii784[address] [place], [place] [address]Dr. Flaco Lawrence HCO3 (Bld) [Moles/Vol] 20.4 mmol/L Critically low 22.0-26. 0 [facility] Comment on above: Performed By: #### A BG ####[facility] Hsvfznrxzm5[address] [place], [place] [address]Dr. Flaco Lawrence LPM Normal [facility] Comment on above: Performed By: #### A BG ####[facility] Xeydrwkwar4[address] [place], [place] [address]Dr. Flaco Lawrence MINUTE VOLUME Normal [facility] Comment on above: Performed By: #### A BG ####[facility] Mluwtrqxtv1822[address] [place], [place] [address]Dr. Flaco Lawrence Oxygen (Bld) [Partial pressure] 73.0 mm[Hg] Critically low 80.0-100.0 [facility] Comment on above: Performed By: #### A BG ####[facility] Vmajywsaid3160[address] [place], [place] [address]Dr. Flaco Lawrence Oxygen saturation in Blood 95.5 % Normal 95.0-100.0 [facility] Comment on above: Performed By: #### A BG ####[facility] Dpoxhumhmf3797 [place] [address]Dr. Flaco Lawrence PCO2 29.7 mmHg Critically low 35.0-45.0 [facility] Comment on above: Performed By: #### A BG ####[facility] Vasweztcms0171 [place] [address]Dr. Flaco Lawrence PEEP [facility] Comment on above: Performed By: #### A BG ####[facility] Yatzzintwd0553 [place] [address]Dr. Flaco Lawrence pH (Bld) 7.445 [pH] Normal 7.350-7.450 [facility] Comment on above: Performed By: #### A BG ####[facility] Wjgmytroue2532 [place] [address]Dr. Flaco Lawrence PIP [facility] Comment on above: Performed By: #### A BG ####[facility] Cdpirehjdt0974 [place] [address]Dr. Flaco Lawrence PS [facility] Comment on above: Performed By: #### A BG ####[facility] Frcwjwybxt9916 [place] [address]Dr. Flaco Lawrence PUNCTURE SITE RR [place] [facility] Comment on above: Performed By: #### A BG ####[facility] Dlwxrvomrm9342 [place] [address]Dr. Flaco Lawrence RATE [facility] Comment on above: Performed By: #### A BG ####[facility] Kmrhweoitw1732 [place] [address]Dr. Flaco Lawrence VENT MODE [place] [facility] Comment on above: Performed By: #### A BG ####[facility] Gevgpocokx7569 [place] [address]Dr. Flaco Lawrence VT [facility] Comment on above: Performed By: #### A BG ####[facility] Viqvkjhjmk8361 [place] [address]Dr. Flaco Lawrence CBC W MANUAL DIFFon 07-29-20 22 ATYPICAL LYMPH # Normal [facility] Comment on above: Performed By: #### C BCMAN ####[facility] Lybtnztgdp2022 [place] [id number]. Flaco Lawrence ATYPICAL LYMPH % Normal [facility] Comment on above: Performed By: #### C CLEVELAND ####[facility] Plufeepbfn8583 [place] [id number]. Yilan Lawrence BAND # 0.6 103/ul Critically high 0.0-0.[address] [facility] Comment on above: Performed By: #### C C[place]AND ####[facility] Cyjqbiwudd6590 [place] [address]Dr. Yilan Lawrence BAND % 4 % Normal 0-5 [facility] Comment on above: Performed By: #### C C[place]AND ####[facility] Hiuqygwzfx3463 [place] [address]Dr. Flaco Lawrence BASOM # 0.00 103/ul Normal 0.00-0.10 [facility] Comment on above: Performed By: #### C C[place]AND ####[facility] Hojldgvfdz50[address] [place], [place] [address]Dr. Flaco Lawrence BASOM % 0.0 % Critically low 0.2-2.0 [facility] Comment on above: Performed By: #### C C[place]AND ####[facility] Mrcdknhreq0463 [place] [address]Dr. Flaco Lawrence BLAST # Normal [facility] Comment on above: Performed By: #### C C[place]AND ####[facility] Xecklsqhji6173 [place] [address]Dr. Yiedith Lawrence BLAST % Normal [facility] Comment on above: Performed By: #### C C[place]AND ####[facility] Rytzkqlhdu1151 [place] [address]Dr. Flaco Lawrence CORRECTED WBC Normal 4.0-11.0 [facility] Comment on above: Performed By: #### C C[place]AND ####[facility] Rqlprlpyhf3533 [place] [id number]. Flaco Lawrence EOS # 0.00 103/ul Normal 0.00-0.70 [facility] Comment on above: Performed By: #### C C[place]AND ####[facility] Pmhdvnrfxw5565 [place], [place] [address]Dv. Flaco Lawrence EOS% 0.0 % Critically low 0.9-7.0 [facility] Comment on above: Performed By: #### C C[place]AND ####[facility] Maotslzfkt1700 [place], [place] [address]Zt. Flaco Lawrence HCT 43.8 % Normal 42.0-54.0 [facility] Comment on above: Performed By: #### C C[place]AND ####[facility] Fdyyfpltls7200 [place], [place] [address]Oo. Flaco Lawrence HGB 14.6 g/dl Normal 14.0-18.0 [facility] Comment on above: Performed By: #### C C[place]AND ####[facility] Lwklmdjtor1713 [place] [id number]. Flaco Lawrence LYMPHM # 0.72 103/ul Critically low 1.20-3.[address] [facility] Comment on above: Performed By: #### C C[place]AND ####[facility] Edqtjqajse2974 [place], [place] [address]Ze. Flaco Lawrence LYMPHM% 5.0 % Critically low 20.5-60.0 [facility] Comment on above: Performed By: #### C C[place]AND ####[facility] Yhrkuurvxp3282 [place], [place] [address]Jb. Flaco Lawrence MCH 29.6 pg Normal 25.9-34.0 [facility] Comment on above: Performed By: #### C C[place]AND ####[facility] Dyqibyampa4066 [place], [place] [address]Yr. Flaco Lawrence MCHC 33.3 g/dl Normal 29.9-35.2 [facility] Comment on above: Performed By: #### C C[place]AND ####[facility] Fvpwpoiquf0051 [place] [id number]. Flaco Lawrence MCV 88.7 fL Normal 80.0-94.0 [facility] Comment on above: Performed By: #### C C[place]AND ####[facility] Ekmqyjttig6927 [place] [id number]. Purviedith Lawrence METAMYELOCYTE # Normal [facility] Comment on above: Performed By: #### C C[place]AND ####[facility] Jpclelfwjl4685 [place] [id number]. Flaco Branden METAMYELOCYTE % Normal [facility] Comment on above: Performed By: #### C C[place]AND ####[facility] Zstcztkpwt8550 [place] [id number]. Flaco Lawrence MONOM# 0.14 103/ul Critically low 0.30-0.80 [facility] Comment on above: Performed By: #### C C[place]AND ####[facility] Bbcvklbpyb1852 [place] [address]Dr. Flaco Lawrence MONOM% 1.0 % Critically low 1.7-12.0 [facility] Comment on above: Performed By: #### C C[place]AND ####[facility] Wkwpdrxoom3040[address] [place], [place] [address]Dr. Flaco Lawrence MPV 10.6 fL Normal 9.5-13.5 [facility] Comment on above: Performed By: #### C C[place]AND ####[facility] Pxvrwzwkrf5966[address] [place], [place] [address]Dr. Flaco Lawrence MYELOCYTE # Normal [facility] Comment on above: Performed By: #### C C[place]AND ####[facility] Yfekvfcgbm9501 [place] [id number]. Flaco Lawrence MYELOCYTE % Normal [facility] Comment on above: Performed By: #### C C[place]AND ####[facility] Smqdnvysdn2533 [place] [id number]. Flaco Lawrence NRBC Normal [facility] Comment on above: Performed By: #### C C[place]AND ####[facility] V[address]kbbbvhqy[address] [place], [place] [address]Dr. Flaco Lawrence PLT 267 103/ul Normal 150-450 [facility] Comment on above: Performed By: #### C C[place]AND ####[facility] Qyokacsjva8033 [place] [id number]. Flaco Lawrence RBC 4.94 106/ul Normal 4.70-6.10 [facility] Comment on above: Performed By: #### C C[place]AND ####[facility] Fisoouugtz9632 [place] [id number] Lawrence RDW 13.6 % Normal 11.0-15.0 [facility] Comment on above: Performed By: #### C C[place]AND ####[facility] Pfqneewdmv9032 [place] [id number] Lawrence SEG # 12.96 103/ul Critically high 1.40-6.50 [facility] Comment on above: Performed By: #### C C[place]AND ####[facility] Kwbytoaqgn6522 [place] [id number]. Flaco Lawrence SEG % 90.0 % Critically high 43.0-75.[address] [facility] Comment on above: Performed By: #### C BCGAYATHRI ####[facility] Ljgmjxrdmo5357 [place] [id number]. Flaco Lawrence TOXIC GRANULATION 2+ Normal [facility] Comment on above: Performed By: #### C C[place]AND ####[facility] Opjebizims6346 [place] [id number]. Flaco Lawrence WBC 14.4 103/ul Critically high 4.0-11.0 [facility] Comment on above: Performed By: #### C C[place]AND ####[facility] Lxecxfelzh5889 [place] [id number] Flaco Lawrence CT ABD/PELVIS WO CONon 07-29 CT ABD/PELVIS WO CON Normal [facility] CT HEAD WO CONon 07-29-2022 CT HEAD WO CON Normal [facility] CULTURE URINEon 07-29-2022 CULTURE URINE Culture Observations : NO GROWTH. Normal [facility] Comment on above: Performed By: #### U RCX ####[facility] Bqzovqigbh3042 [place] [phone] Flaco Lawrence ER URINE PROFILEon 2 Bilirubin Ql (U) MODERATE Abnormal NEGATIVE [facility] Comment on above: Performed By: #### E RUR, UMICRO ####[facility] Mvmepvxozf38[address] [place], [place] [address]Dr. Flaco Lawrence Clarity (U) CLEAR Normal CLEAR [facility] Comment on above: Performed By: #### EVERARDO RAMONRO ####[facility] Uteueleogb798[address] [place], [place] [address]Dr. Flaco Lawrence Color (U) YELLOW Normal YELLOW [facility] Comment on above: Performed By: #### EVERARDO RAMONRO ####[facility] Ntqwziuzbj4[address] [place], [place] [address]Dr. Flaco Lawrnece ERUAHD A micrscopic examination will be performed if indicated. Normal [facility] Comment on above: Performed By: #### EVETTE RAMON ####[facility] Zjjmatfdfy5584[address] [place], [place] [address]Dr. Flaco Lawrence Glucose Ql (U) Negative Normal NEGATIVE [facility] Comment on above: Performed By: #### EVETTE RAMON ####[facility] Xgrbowzwcs8560[address] [place], [place] [address]Dr. Flaco Lawrence Hemoglobin Ql (U) MODERATE Abnormal NEGATIVE [facility] Comment on above: Performed By: #### EVETTE RAMON ####[facility] Fzmhargpac526[address] [place], [place] [address]Dr. Flaco Lawrence Ketones Ql (U) 40 mg/dl Abnormal NEGATIVE [facility] Comment on above: Performed By: #### EVETTE RAMON ####[facility] Jycrbjghna9129[address] [place], [place] [address]Dr. Flaco Lawrence LEUKOCYTES Negative Normal NEGATIVE [facility] Comment on above: Performed By: #### EVETTE RAMON ####[facility] Tkhqpyafjo7433[address] [place], [place] [address]Dr. Flaco Lawrence Nitrite Ql (U) Negative Normal NEGATIVE [facility] Comment on above: Performed By: #### EVERARDO RAMONRO ####[facility] Fiquyqupsu7926[address] [place], [place] [address]Dr. Flaco Lawrence pH (U) 5.5 [pH] Normal 5-9 [facility] Comment on above: Performed By: #### EVETTE RAMON ####[facility] Zjpkvtpeqj9308[address] [place], [place] [address]Dr. Flaco Lawrence Protein (U) [Mass/Vol] 100 mg/dL Abnormal NEGAT LIANNE/ TRACE [facility] Comment on above: Performed By: #### EVETTE RAMON ####[facility] Knfrjantzz1389[address] [place], [place] [address]Dr. Flaco Lawrence SPEC GRAVITY >=1.030 Abnormal 1.005-<=1.02 5 [facility] Comment on above: Performed By: #### EVETET RAMON ####[facility] Lafphwkggi2384[address] [place], [place] [address]Dr. Flaco Lawrence UR MICRO IND INDICATED Normal [facility] Comment on above: Performed By: #### EVETTE RAMON ####[facility] Qmrqorgfdt2557[address] [place], [place] [address]Dr. Flaco Lawrence Urobilinogen Qn (U) 1.0 {Tuan'U}/dL Normal 0.2 - 1. 0 [facility] Comment on above: Performed By: #### EVETTE RAMON ####[facility] Xpphglfebm9070[address] [place], [place] [address]Dr. Flaco Lawrence LACTATE/LACTIC ACIDon 2021 Lactate [Moles/Vol] 2.3 mmol/L Critically high 0.4-1.9 [facility] Comment on above: Performed By: #### L ACT ####[facility] Zmsjravaha5920[address] [place], [place] [address]DrJeramie Lawrence PROF 14(COMP METB)on 022 Albumin [Mass/Vol] 2.9 g/dL Critically low 3.4-5.0 [facility] Comment on above: Performed By: #### C MP ####[facility] Cmjhhvnmhp3126[address] [place], [place] [address]Dr. Flaco Lawrence Albumin/Globulin [Mass ratio] 0.7 {ratio} Normal [facility] Comment on above: Performed By: #### C MP ####[facility] Gejtnpuskw2804 [place] [address]Dr. Flaco Lawrence ALP [Catalytic activity/Vol] 78 U/L Normal 46-116 [facility] Comment on above: Performed By: #### C MP ####[facility] Qcprtlcmmw8652 [place] [address]Dr. Flaco Lawrence ALT [Catalytic activity/Vol] 33 U/L Normal 16-63 [facility] Comment on above: Performed By: #### C MP ####[facility] Henhofmyxy5537 [place] [address]Dr. Purviedith Branden Anion gap [Moles/Vol] 14.5 mmol/L Normal [facility] Comment on above: Performed By: #### C MP ####[facility] Ifzvgjdyax382[address] [place], [place] [address]Dr. Flaco Branden AST [Catalytic activity/Vol] 38 U/L Critically high 15-37 [facility] Comment on above: Performed By: #### C MP ####[facility] Orsboszibj8674[address] [place], [place] [address]Dr. Flaco Branden Bilirubin [Mass/Vol] 1.6 mg/dL Critically high 0.2-1.0 [facility] Comment on above: Performed By: #### C MP ####[facility] [address] [place] [address]Dr. Purviedith Branden Calcium [Mass/Vol] 9.2 mg/dL Normal 8.5-10.1 [facility] Comment on above: Performed By: #### C MP ####[facility] Eoepjbuhga3653 [place] [address]Dr. Flaco Lawrence Chloride [Moles/Vol] 104 mmol/L Normal 98-107 [facility] Comment on above: Performed By: #### C MP ####[facility] Ytpjazonzd8822 [place] [address]Dr. Flaco Lawrence CO2 [Moles/Vol] 23.5 mmol/L Normal 21.0-32.0 [facility] Comment on above: Performed By: #### C MP ####[facility] Jcezazmgmu8607 [place] [address]Dr. Flaco Lawrence Creatinine [Mass/Vol] 1.95 mg/dL Critically high 0.70-1.30 [facility] Comment on above: Performed By: #### C MP ####[facility] Xeftrurxrv7109 [place] [address]Dr. Flaco Lawrence EGFR-AF SERBIAN 41 mL/min/1.73m2 Critically low >=60 [facility] Comment on above: Performed By: #### C MP ####[facility] Jpidzxmxch7428 [place] [address]Dr. Flaco Lawrence EGFR-NON AF SERBIAN 34 mL/min/1.73m2 Critically low >=60 [facility] Comment on above: Performed By: #### C MP ####[facility] Myzasnyqur[address] [place], [place] [address]Dr. Flaco Lawrence Globulin (S) [Mass/Vol] 4.3 g/dL Normal [facility] Comment on above: Performed By: #### C MP ####[facility] Pmkqsjpxmp88[address] [place], [place] [address]Dr. Flaco Lawrence Glucose [Mass/Vol] 169 mg/dL Critically high 74-106 [facility] Comment on above: Performed By: #### C MP ####[facility] Mcqaenmkww8871 [place] [address]Dr. Flaco Lawrence Potassium [Moles/Vol] 4.0 mmol/L Normal 3.5-5.1 [facility] Comment on above: Performed By: #### C MP ####[facility] Yxhvkgrikf[address] [place], [place] [address]Dr. Flaco Lawrence Protein [Mass/Vol] 7.2 g/dL Normal 6.4-8.2 [facility] Comment on above: Performed By: #### C MP ####[facility] Fxayhjkwda2700 [place] [address]Dr. Flaco Lawrence Sodium [Moles/Vol] 138 mmol/L Normal 136-145 [facility] Comment on above: Performed By: #### C MP ####[facility] Wyokpibrfh5975 [place] [address]Dr. Purviedith Branden Urea nitrogen [Mass/Vol] 29.0 mg/dL Critically high 7.0-18.0 [facility] Comment on above: Performed By: #### C MP ####[facility] Itzqcoyhjq3999 [place] [address]Dr. Flaco Lawrence Urea nitrogen/Creatinine [Mass ratio] 14.9 mg/mg Normal [facility] Comment on above: Performed By: #### C MP ####[facility] Epmykgjvdt1098[address] [place], [place] [address]Dr. Flaco Lawrence URINE MICROSCOPIC ONLYon AMORPHOUS CRYSTALS MODERATE Normal [facility] Comment on above: Performed By: #### EVERARDO RAMONRO ####[facility] Qoyfxvpabh4957 [place] [address]Dr. Flaco Lawrence BACTERIA MODERATE Abnormal NONE SEEN [facility] Comment on above: Performed By: #### Riccardo SENA UMICRO ####[facility] Honqmuoaer17[address] [place], [place] [address]Dr. Flaco Lawrence Bacteria identified Cx Nom (U) INDICATED Normal [facility] Comment on above: Performed By: #### Riccardo SENA UMICRO ####[facility] Nwnrzhnqns520[address] [place], [place] [address]Dr. Flaco Lawrence CAST SEEN Abnormal NONE SEEN [facility] Comment on above: Performed By: #### JOHNATHAN RAMONICRO ####[facility] Sukkyvbtda47[address] [place] [address]Dr. Flaco Lawrence COARSE GRANULAR CAST RARE Normal [facility] Comment on above: Performed By: #### Riccardo SENA UMICRO ####[facility] Txfiujstuz36[address] [place], [place] [address]Dr. Flaco Lawrence Crystals LM Nom (Urine sed) SEEN Abnormal NONE SEEN [facility] Comment on above: Performed By: #### Riccardo SENA UMICRO ####[facility] Ougrjeyudc4735[address] [place], [place] [address]Dr. Flaco Lawrence Epithelial cells LM Ql (Urine sed) RARE Normal NONE SEEN /RARE [facility] Comment on above: Performed By: #### EVETTE RAMON ####[facility] Qiqiswtrbe9125[address] [place], [place] [address]Dr. Purviedith Lawrence MUCOUS TRACE Abnormal NONE SEEN [facility] Comment on above: Performed By: #### EVETTE RMAON ####[facility] Lxbdjqtjfg0359 [place] [address]Dr. Flaco Lawrence RBC 0-2 Normal 0-2 [facility] Comment on above: Performed By: #### EVETTE RAMON ####[facility] Pelufidszm3204[address] [place], [place] [address]Dr. Flaco Lawrence WBC 0-2 Abnormal NONE SEEN [facility] Comment on above: Performed By: #### EVETTE RAMON ####[facility] Igtcdeiwev4188[address] [place], [place] [address]Dr. Flaco Lawrence BNPon 07-28-2022 Natriuretic peptide B (Bld) [Mass/Vol] 258.0 pg/mL Normal <=900.0 [facility] Comment on above: Performed By: #### C MP, BNP, HSTROPN ####[facility] Zpgdeqsnyv7938[address] [place], [place] [address]Dr. Flaco Branden CBC W MANUAL DIFFon 07-28-20 22 ATYPICAL LYMPH # 0.21 103/ul Normal [facility] Comment on above: Performed By: #### Corina GUTHRIE ####[facility] Ncogntqfgd29[address] [place], [place] [address]Dr. Purviedith Branden ATYPICAL LYMPH % 1 % Normal [facility] Comment on above: Performed By: #### C CLEVELAND ####[facility] Seitliltsk5[address] [place], [place] [address]Dr. Flaco Lawrence BAND # 0.0 103/ul Normal 0.0-0.3 [facility] Comment on above: Performed By: #### C CLEVELAND ####[facility] Gomdzqpzlf[address] [place], [place] [address]Dr. Flaco Lawrence BAND % 0 % Normal 0-5 [facility] Comment on above: Performed By: #### C BCMAN ####[facility] Hxnhxclrky69[address] [place] [id number]. Flaco Lawrence BASOM # 0.00 103/ul Normal 0.00-0.10 [facility] Comment on above: Performed By: #### C BCMAN ####[facility] Yweiefhxkh8830 [place] [id number]. Flaco Lawrence BASOM % 0.0 % Critically low 0.2-2.0 [facility] Comment on above: Performed By: #### C BCMAN ####[facility] Jjozfupffj5918 [place] [address]Dr. Flaco Lawrence BLAST # Normal [facility] Comment on above: Performed By: #### C BCGAYATHRI ####[facility] Zikuyzzdlw7540 [place] [address]Dr. Flaco Lawrence BLAST % Normal [facility] Comment on above: Performed By: #### C BCGAYATHRI ####[facility] Prqwflcbuq1126 [place] [address]Dr. Flaco Lawrence CORRECTED WBC Normal 4.0-11.0 [facility] Comment on above: Performed By: #### C BCGAYATHRI ####[facility] Ozigktwgov1439 [place] [address]Dr. Flaco Lawrence EOS # 0.00 103/ul Normal 0.00-0.70 [facility] Comment on above: Performed By: #### C BCGAYATHRI ####[facility] Iewffonoeq4908 [place] [address]Dr. Flaco Lawrence EOS% 0.0 % Critically low 0.9-7.0 [facility] Comment on above: Performed By: #### C BCGAYATHRI ####[facility] Nzftsgxmjc9883 [place] [address]Dr. Flaco Lawrence HCT 48.8 % Normal 42.0-54.0 [facility] Comment on above: Performed By: #### C BCGAYATHRI ####[facility] Yfcmmhdyca[address] [place], [place] [address]Dr. Flaco Lawrence HGB 16.2 g/dl Normal 14.0-18.0 [facility] Comment on above: Performed By: #### Corina GUTHRIE ####[facility] Qskauhzjdl1409 [place] [id number]. Flaco Lawrence LYMPHM # 0.62 103/ul Critically low 1.20-3.[address] [facility] Comment on above: Performed By: #### Corina GUTHRIE ####[facility] Blfyxuywif4617 [place] [id number]. Flaco Lawrence LYMPHM% 3.0 % Critically low 20.5-60.0 [facility] Comment on above: Performed By: #### Corina GUTHRIE ####[facility] Howxlufuyd7366 [place] [id number]. Flaco Lawrence MCH 29.5 pg Normal 25.9-34.0 [facility] Comment on above: Performed By: #### Corina GUTHRIE ####[facility] Mfejdtmwbd6250 [place] [id number]. Flaco Lawrence MCHC 33.2 g/dl Normal 29.9-35.2 [facility] Comment on above: Performed By: #### Corina GUTHRIE ####[facility] Ydyierwuas8997 [place] [id number]. Flaco Lawrence MCV 88.7 fL Normal 80.0-94.0 [facility] Comment on above: Performed By: #### Corina GUTHRIE ####[facility] Ucjlrncpdn2482 [place] [id number]. Flaco Lawrence METAMYELOCYTE # Normal [facility] Comment on above: Performed By: #### Corina GUTHRIE ####[facility] Couclcdxzj4500 [place] [id number]. Flaco Lawrence METAMYELOCYTE % Normal [facility] Comment on above: Performed By: #### Corina GUTHRIE ####[facility] Mawchtxvrn5857 [place] [id number]. Flaco Lawrence MONOM# 2.28 103/ul Critically high 0.30-0.80 [facility] Comment on above: Performed By: #### C C[place]AND ####[facility] Fuayvtrfmk6975 [place], [place] [address]Tw. Flaco Lawrence MONOM% 11.0 % Normal 1.7-12.0 [facility] Comment on above: Performed By: #### C CLEVELAND ####[facility] Qbmjqhagcg4186 [place], [place] [address]Wm. Flaco Lwarence MPV 10.5 fL Normal 9.5-13.5 [facility] Comment on above: Performed By: #### C CLEVELAND ####[facility] Ckrihfukua1355 [place] [id number]. Flaco Lawrence MYELOCYTE # Normal [facility] Comment on above: Performed By: #### Corina GUTHRIE ####[facility] Kcrwgqucym9367 [place] [id number]. Flaco Lawrence MYELOCYTE % Normal [facility] Comment on above: Performed By: #### Corina GUTHRIE ####[facility] Hhwbtgtfvk1015 [place] [id number]. Flaco Lawrence NRBC Normal [facility] Comment on above: Performed By: #### Corina GUTHRIE ####[facility] Xnciltpnio6790 [place] [id number]. Flaco Lawrence PLT 317 103/ul Normal 150-450 [facility] Comment on above: Performed By: #### Corina GUTHRIE ####[facility] Uqhqijhjca7075 [place] [id number]. Flaco Lawrence RBC 5.50 106/ul Normal 4.70-6.10 [facility] Comment on above: Performed By: #### C CLEVELAND ####[facility] Cnpxeemihv2372 [place] [id number]. Flaco Lawrence RDW 13.6 % Normal 11.0-15.0 [facility] Comment on above: Performed By: #### C CLEVELAND ####[facility] Wbgpoppjrr8091 [place] [id number]. Purviedith Lawrence SEG # 17.59 103/ul Critically high 1.40-6.50 [facility] Comment on above: Performed By: #### C CLEVELAND ####[facility] Aarrptyzdz8133 [place], [place] [address]Fi. Flaco Lawrence SEG % 85.0 % Critically high 43.0-75.0 [facility] Comment on above: Performed By: #### C BCMAN ####[facility] Ntjibrkjno1355 [place], [place] [address]Bw. Flaco Lawrence WBC 20.7 103/ul Critically high 4.0-11.0 [facility] Comment on above: Performed By: #### C BCMAN ####[facility] Yoitufrckl2610 [place], [place] [address]Xj. Flaco Lawrence CULTURE BLOODon 07-28-2022 Microscopic examination of blood, culture Culture Observations: NO GROWTH AT 5 DAYS. Normal [facility] Comment on above: Performed By: #### B LDCX2 ####[facility] Hremrwsgdx[address] [place], [place] [id number]. Flaco Lawrence Microscopic examination of blood, culture Culture Observations: NO GROWTH AT 5 DAYS. Normal [facility] Comment on above: Performed By: #### B LDCX1 ####[facility] Celcugjsjy[address] [place], [place] [id number]. Flaco Lawrence [facility]on 06-30 SARS-CoV-2 (COVID-19) RNA MARCO ANTONIO+probe Ql (Unsp spec) Not detected Normal NOT DETECTED [facility] Comment on above: Result Comment: When [...] for this test is supported by the [place] of Health and Human Service's declaration that [...] be used). Performed By: #### C VDTBH ####[facility] Aenyxmsrzd1326[address] [place], [place] [address]Dr. Flaco Lawrence INFLUENZA A AND B AGon 07-28 INFLUENZA A AG Negative Normal NEGATIVE SEE COMMENT [facility] Comment on above: Performed By: #### I NFLUAB ####[facility] Eyykfdxtyb030[address] [place], [place] [address]Dr. Flaco Lawrence INFLUENZA B AG Negative Normal NEGATIVE SEE COMMENT [facility] Comment on above: Performed By: #### I NFLUAB ####[facility] Pstavlqcgz9249[address] [place], [place] [address]Dr. Flaco Lawrence INTERNAL CONTROLS Within Normal Limits Normal Wi thin Normal Limits [facility] Comment on above: Performed By: #### I NFLUAB ####[facility] Exryfglonu880[address] [place], [place] [address]Dr. Flaco Lawrence LACTATE/LACTIC ACIDon 2021 Lactate [Moles/Vol] 2.6 mmol/L Critically high 0.4-1.9 [facility] Comment on above: Performed By: #### L ACT ####[facility] Gslxwkszpm9[address] [place], [place] [address]Dr. Flaco Lawrence PROF 14(COMP METB)on 022 Albumin [Mass/Vol] 3.7 g/dL Normal 3.4-5.0 [facility] Comment on above: Performed By: #### C MP, BNP, HSTROPN ####[facility] Tqburbycch17[address] [place], [place] [address]Dr. Flaco Lawrence Albumin/Globulin [Mass ratio] 0.8 {ratio} Normal [facility] Comment on above: Performed By: #### C MP, BNP, HSTROPN ####[facility] Ujpcvsshnk5213[address] [place], [place] [address]Dr. Flaco Lawrence ALP [Catalytic activity/Vol] 95 U/L Normal 46-116 [facility] Comment on above: Performed By: #### C MP, BNP, HSTROPN ####[facility] Bjdnaojhaz5487 [place] [address]Dr. Flaco Lawrence ALT [Catalytic activity/Vol] 38 U/L Normal 16-63 [facility] Comment on above: Performed By: #### C MP, BNP, HSTROPN ####[facility] Jjvwxsuojp5945 [place] [address]Dr. Flaco Lawrence Anion gap [Moles/Vol] 16.8 mmol/L Normal [facility] Comment on above: Performed By: #### C MP, BNP, HSTROPN ####[facility] Tsaurdxvla8313[address] [place], [place] [address]Dr. Flaco Lawrence AST [Catalytic activity/Vol] 44 U/L Critically high 15-37 [facility] Comment on above: Performed By: #### C MP, BNP, HSTROPN ####[facility] Irgsojhnvg7026[address] [place], [place] [address]Dr. Flaco Lawrence Bilirubin [Mass/Vol] 2.7 mg/dL Critically high 0.2-1.0 [facility] Comment on above: Performed By: #### C MP, BNP, HSTROPN ####[facility] Suhgwmeoes763[address] [place], [place] [address]Dr. Flaco Lawrence Calcium [Mass/Vol] 9.8 mg/dL Normal 8.5-10.1 [facility] Comment on above: Performed By: #### C MP, BNP, HSTROPN ####[facility] Oaydskisyj2895[address] [place], [place] [address]Dr. Flaco Lawrence Chloride [Moles/Vol] 102 mmol/L Normal 98-107 [facility] Comment on above: Performed By: #### C MP, BNP, HSTROPN ####[facility] Xmzwhnaopd93[address] [place], [place] [address]Dr. Flaco Lawrence CO2 [Moles/Vol] 23.0 mmol/L Normal 21.0-32.0 [facility] Comment on above: Performed By: #### C MP, BNP, HSTROPN ####[facility] Adjufcrbri1127 [place] [address]Dr. Flaco Lawrence Creatinine [Mass/Vol] 2.22 mg/dL Critically high 0.70-1.30 [facility] Comment on above: Performed By: #### C MP, BNP, HSTROPN ####[facility] Ewbqawdphj5415 [place] [address]Dr. Flaco Lawrence EGFR-AF SERBIAN 36 mL/min/1.73m2 Critically low >=60 [facility] Comment on above: Performed By: #### C MP, BNP, HSTROPN ####[facility] Sfuieefmhu8917 [place] [address]Dr. Flaco Lawrence EGFR-NON AF SERBIAN 29 mL/min/1.73m2 Critically low >=60 [facility] Comment on above: Performed By: #### C MP, BNP, HSTROPN ####[facility] Raaalleefd93[address] [place], [place] [address]Dr. Flaco Lawrence Globulin (S) [Mass/Vol] 4.7 g/dL Normal [facility] Comment on above: Performed By: #### C MP, BNP, HSTROPN ####[facility] Bbqagszcjf0174[address] [place], [place] [address]Dr. Flaco Lawrence Glucose [Mass/Vol] 145 mg/dL Critically high 74-106 [facility] Comment on above: Performed By: #### C MP, BNP, HSTROPN ####[facility] Lywrzuxmmq9[address] [place], [place] [address]Dr. Flaco Lawrence Potassium [Moles/Vol] 3.8 mmol/L Normal 3.5-5.1 [facility] Comment on above: Performed By: #### C MP, BNP, HSTROPN ####[facility] Tahfmscrha8[address] [place], [place] [address]Dr. Flaco Lawrence Protein [Mass/Vol] 8.4 g/dL Critically high 6.4-8.2 [facility] Comment on above: Performed By: #### C MP, BNP, HSTROPN ####[facility] Pdwr[address]uhz[address] [place] [address]Ip. Flaco Lawrence Sodium [Moles/Vol] 138 mmol/L Normal 136-145 [facility] Comment on above: Performed By: #### C MP, BNP, HSTROPN ####[facility] Jzdnawctys8565 [place] [id number]. Flaco Lawrence Urea nitrogen [Mass/Vol] 29.0 mg/dL Critically high 7.0-18.0 [facility] Comment on above: Performed By: #### C MP, BNP, HSTROPN ####[facility] Agmcrnjyki1900 [place] [id number]. Flaco Lawrence Urea nitrogen/Creatinine [Mass ratio] 13.1 mg/mg Normal [facility] Comment on above: Performed By: #### C MP, BNP, HSTROPN ####[facility] Oonmmawrak0313 [place] [address]Dr. Flaco Lawrence TROPONIN, HIGH SENSITIVITYon 07-28-2022 HSTROP 13.6 pg/mL Normal 4.0-76.1 [facility] Comment on above: Result Comment: CUT- OFF POINTS HAVE BEEN ESTABLISHED BASED ON THE FOURTH UNIVERSAL DEFINITIONS OF MYOCARDIALINFARCTION. THE UPPER REFERENCE LIMIT (URL) OF TROPONIN, DEFINED THE 99TH PERCENTILE OFcTnI DISTRIBUTION IN A REFERENCE POPULATION, HAS BEEN CONFIRMED THE DECISION THRESHOLDFOR PR DIAGNOSIS. Performed By: #### C MP, BNP, HSTROPN ####[facility] Glatfyyzam3449 [place] [address]Dr. Flaco Lawrence XR CHEST 1 Von 07-28-2022 XR CHEST 1 V Normal [facility] Covid-19 PCR ([facility]VD[facility])on 06-29 SARS-CoV-2 (COVID-19) RNA MARCO ANTONIO+probe Ql (Unsp spec) Not detected Normal NOT DETECTED [facility] Comment on above: Result Comment: This test is not yet approved or cleared by the [place] FDA. When there are no FDA-approved or cleared tests available, and other criteria are met, FDA can make tests available under an emergency access mechanism called an Emergency Use Authorization (EUA). The EUA for this test is supported by the [place] of Health and Human Service's (HHS's) declaration [...] with SARS-CoV-2. Performed By: #### C VDTB ####[facility] Zetfwspqlu32[address] [place], [place] [address]DrJeramie Lawrence PROF CHEM 8 (BAS METB)on Anion gap [Moles/Vol] 11.2 mmol/L Normal [facility] Comment on above: Performed By: #### B MP ####[facility] Ytbcjkbjqi[address] [place], [place] [address]Dr. Flaco Lawrence Calcium [Mass/Vol] 8.7 mg/dL Normal 8.5-10.1 [facility] Comment on above: Performed By: #### B MP ####[facility] Kfxouvqwps[address] [place], [place] [address]Dr. Flaco Lawrence Chloride [Moles/Vol] 108 mmol/L Critically high 98-107 [facility] Comment on above: Performed By: #### B MP ####[facility] Bqlasswmaz2223[address] [place], [place] [address]Dr. Flaco Lawrence CO2 [Moles/Vol] 26.9 mmol/L Normal 21.0-32.0 [facility] Comment on above: Performed By: #### B MP ####[facility] Dugslqvskk[address] [place], [place] [address]Dr. Flaco Lawrence Creatinine [Mass/Vol] 1.77 mg/dL Critically high 0.70-1.30 [facility] Comment on above: Performed By: #### B MP ####[facility] Frkhwkqetb6[address] [place], [place] [address]DrJeramie Lawrence EGFR-AF SERBIAN 46 mL/min/1.73m2 Critically low >=60 [facility] Comment on above: Performed By: #### B MP ####[facility] Hfyqyajmgj1896 [place] [address]Dr. Flaco Lawrence EGFR-NON AF SERBIAN 38 mL/min/1.73m2 Critically low >=60 [facility] Comment on above: Performed By: #### B MP ####[facility] Rlkxomrhrh6467 [place] [address]Dr. Flaco Branden Glucose [Mass/Vol] 89 mg/dL Normal 74-106 [facility] Comment on above: Performed By: #### B MP ####[facility] Lrqysnlvio0680 [place] [address]Dr. Flaco Branden Potassium [Moles/Vol] 4.1 mmol/L Normal 3.5-5.1 [facility] Comment on above: Performed By: #### B MP ####[facility] Gmcdkhrebg4[address] [place], [place] [address]Dr. Flaco Branden Sodium [Moles/Vol] 142 mmol/L Normal 136-145 [facility] Comment on above: Performed By: #### B MP ####[facility] Busojrjaor4013 [place] [address]Dr. Flaco Branden Urea nitrogen [Mass/Vol] 15.0 mg/dL Normal 7.0-18.0 [facility] Comment on above: Performed By: #### B MP ####[facility] Fggbniibkr0539 [place] [address]Dr. Flaco Branden Urea nitrogen/Creatinine [Mass ratio] 8.5 mg/mg Normal [facility] Comment on above: Performed By: #### B MP ####[facility] Cgfmaiaiqs[address] [place], [place] [address]Dr. Flaco Branden XR FOOT RT MIN 3 VIEWSon XR FOOT RT MIN 3 VIEWS Normal [facility] Vital Signs Date Time Vital Sign Value Performing Clinician Faci lity 08-05-2024 15:21-0500 Body height 177.8 cm Joe Jang PA-C Work Phone: [facility] [employer] [facility] 08-05-2024 15:21-0500 Body mass index (BMI) [Ratio] 20.81 kg/m2 Joe BOWENC Work Phone: [facility] [employer] [facility] 08-05-2024 15:21-0500 Body weight 65.77 kg Joe BURKS-C Work Phone: [facility] [employer] [facility] 08-05-2024 15:21-0500 Diastolic blood pressure 107 mm[Hg] Joe BURKS-C Work Phone: [facility] [employer] [facility] 08-05-2024 15:21-0500 Heart rate 66 /min Joe BURKS-C Work Phone: [facility] [employer] [facility] 08-05-2024 15:21-0500 Systolic blood pressure 153 mm[Hg] Joe BURKS-C Work Phone: [facility] [employer] [facility] 02-12-2024 13:46-0400 Body height 177.8 cm Mel Camacho MD Work Phone: [facility] [employer] [facility] 02-12-2024 13:46-0400 Body mass index (BMI) [Ratio] 20.09 kg/m2 Mel Camacho MD Work Phone: [facility] [employer] [facility] 02-12-2024 13:46-0400 Body weight 63.5 kg Mel Camacho MD Work Phone: [facility] [employer] [facility] 02-12-2024 13:46-0400 Diastolic blood pressure 76 mm[Hg] Mel Camacho MD Work Phone: [facility] [employer] [facility] 02-12-2024 13:46-0400 Heart rate 72 /min Mel Camacho MD Work Phone: [facility] [employer] [facility] 02-12-2024 13:46-0400 Systolic blood pressure 138 mm[Hg] Mel Camacho MD Work Phone: [facility] [employer] [facility] 09-18-2023 13:33-0500 Body height 170.2 cm Mel Camacho MD Work Phone: [facility] [employer] [facility] 09-18-2023 13:33-0500 Body mass index (BMI) [Ratio] 23.49 kg/m2 Mel Camacho MD Work Phone: [facility] [employer] [facility] 09-18-2023 13:33-0500 Body weight 68.04 kg Mel Camacho MD Work Phone: [facility] 09-18-2023 13:33-0500 Diastolic blood pressure 79 mm[Hg] Mel Camacho MD Work Phone: [facility] 09-18-2023 13:33-0500 Heart rate 61 /min Mel Camacho MD Work Phone: [facility] 09-18-2023 13:33-0500 Systolic blood pressure 121 mm[Hg] Mel Camacho MD Work Phone: [facility] 05-12-2023 13:51-0400 Blood Pressure Location Baljit DOSHI [facility] [place] 05-12-2023 13:51-0400 Diastolic blood pressure 74 mm[Hg] Baljit DOSHI [facility] [place] 05-12-2023 13:51-0400 Heart rate 70 /min Baljit DOSHI [facility] [place] 05-12-2023 13:51-0400 Respiratory rate 16 /min Baljit DOSHI [facility] [place] 05-12-2023 13:51-0400 Systolic blood pressure 120 mm[Hg] Baljit DOSHI [facility] [place] Encounters Encounter Date Encounter Type Care Provider Facility Start: 10-25-2024 End: 10-25-2024 ambulatory [facility] Start: 09-26-2024 End: 09-26-2024 ambulatory [facility] Start: 09-16-2024 End: 09-16-2024 ambulatory [facility] Start: 09-07-2024 End: 09-07-2024 Emergency department patient visit ORLANDO LARA [facility] Start: 09-05-2024 Evaluation and manag ement of inpatient RAMESH LAWRENCE [facility] Start: 09-05-2024 Evaluation and manag ement of inpatient NORBERTO RAY [facility] Start: 09-03-2024 Evaluation and manag ement of inpatient MAXX HALE [facility] Start: 09-03-2024 End: 09-05-2024 Evaluation and management of inpatient ODELL RODRÍGUEZ [facility] Start: 08-27-2024 End: 08-28-2024 Refill Joe Jang PA-C Work Phone: [facility] Comment on above: Mild dementia with a gitation, unspecified dementia type (CMS-HCC) Start: 08-19-2024 ambulatory SPENCER MENDOZA [facility] Start: 08-05-2024 End: 08-05-2024 Office outpatient visit 25 minutes Joe Jang PA-C Work Phone: [facility] Comment on above: Parkinsonism, unspec ified Parkinsonism type (CMS-HCC) (Primary Dx); Mild dementia with agitation, unspecified dementia type (CMS-HCC) Start: 08-05-2024 End: 08-05-2024 ambulatory [facility]RADO [facility] Start: 08-05-2024 ambulatory [facility] Start: 07-28-2024 ambulatory [facility] Start: 07-20-2024 ambulatory [facility] Start: 06-17-2024 ambulatory [facility] Start: 06-14-2024 End: 06-17-2024 Telephone encounter [facility] Comment on above: 08/19 Ann Start: 06-01-2024 End: 06-01-2024 ambulatory [facility] Start: 05-17-2024 End: 05-17-2024 Refill Jonathan Khai JUDICIAL REGISTRAR [facility] Comment on above: Parkinsonism, unspec ified Parkinsonism type (CMS-HCC) Start: 04-28-2024 ambulatory [facility] Start: 03-23-2024 ambulatory [facility] Start: 03-18-2024 ambulatory [facility] Start: 02-12-2024 End: 02-12-2024 Office outpatient visit 25 minutes Mel Camacho MD Work Phone: [facility] Comment on above: Parkinsonism, unspec ified Parkinsonism type (CMS-HCC) (Primary Dx); Mild dementia with agitation, unspecified dementia type (CMS-HCC); Gait instability; Urinary retention; Spondylosis of cervical spine; Sundowning; Chronic bilateral low back pain, unspecified whether sciatica present; Insomnia due to medical condition; Spondylosis of lumbar region without myelopathy or radiculopathy; Prostate cancer (CMS-HCC) Start: 02-12-2024 End: 02-12-2024 [facility] Start: 01-20-2024 End: 01-21-2024 Refkortney Ridley CMA [facility] Comment on above: Chronic bilateral lo w back pain, unspecified whether sciatica present Start: 12-08-2023 End: 12-08-2023 ambulatory [facility] Start: 09-18-2023 End: 09-18-2023 Office outpatient visit 25 minutes Mel Camacho MD Work Phone: [facility] Comment on above: Parkinsonism, unspec ified Parkinsonism type (Primary Dx); Tardive dyskinesia; Mild dementia with agitation, unspecified dementia type (CMS-HCC); Gait instability; Urinary retention; Spondylosis of cervical spine; Sundowning; Chronic bilateral low back pain, unspecified whether sciatica present; Insomnia due to medical condition Start: 09-18-2023 End: 09-18-2023 [facility] Start: 05-27-2023 End: 05-28-2023 ambulatory Baljit DOSHI Facility:CD:[id number] Start: 05-12-2023 End: 05-13-2023 ambulatory [...] Start: 09-25-2022 Encounter for preprocedural laboratory examination KIMBERLI RAIN [facility] Start: 09-25-2022 End: 09-25-[address] FABIAN KENNEDY Facility:[facility] Start: 09-22-2022 End: 09-23-2022 ambulatory KIMBERLI RAIN Facility:[facility] Start: 09-22-2022 End: 09-23-2022 Encounter for preprocedural laboratory examination KIMBERLI RAIN Facility:[facility] Start: 09-15-2022 Encounter for preprocedural cardiovascular examination [facility] Solange [facility] Start: 09-11-2022 End: 09-12-2022 ambulatory KIMBERLI RAIN Facility:[facility] Start: 08-15-2022 End: 08-15-2022 ambulatory JOVANI UMANZOR . Facility:[facility] Start: 07-30-2022 End: 08-02-2022 Evaluation and management of inpatient DR LIBRADO HELM . Facility:[facility] Start: 07-24-2022 End: 07-25-2022 ambulatory KIMBERLI RAIN Facility:[facility] Start: 07-17-2022 Encounter for preprocedural cardiovascular examination KIMBERLI [facility] Start: 07-17-2022 Encounter for preprocedural laboratory examination [facility] Start: 07-15-2022 End: 07-16-2022 ambulatory KIMBERLI Narvaez [facility] Facility:[facility] Start: 07-15-2022 End: 07-16-2022 Encounter for preprocedural cardiovascular examination [facility] Solange [facility] Facility:[facility] Start: 06-18-2022 End: 06-19-[address] LIBRADO HELM . Facility: Procedures Date Procedure Procedure Detail Performing Clinician Start: 02-12-2024 Follow-up visit Follow-up MEL MONTENEGRO Start: 09-18-2023 Adult depression scr eening assessment Ehesther CabreraAnn Work Phone: Start: 09-19-2020 Excisional biopsy Karlos [...] on above: right great toe Vasectomy Baljit NILPinky Plan of Treatment Date Care Activity Detail Author Start: 08-05-2025 Adult BMI Screening Adult BMI Screening [facility] Start: 08-05-2025 Tobacco Screening Tobacco Screening [facility] Start: 02-11-2025 Adult BMI Screening Adult BMI Screening [facility] Start: 02-11-2025 Tobacco Screening Tobacco Screening [facility] Start: 02-03-2025 End: 02-03-2025 Patient encounter procedure 02/03/2025 2:00 PM EDT Office Visit [facility] [address] [place] [address] Joe Jang PA-C [address], [address] [place] [phone] [facility] Start: 09-27-2024 Tobacco Screening Tobacco Screening [facility] Start: 09-18-2024 Adult BMI Screening Adult BMI Screening [facility] Start: 09-18-2024 Depression Screening Depression Screening [facility] Start: 09-18-2024 Tobacco Screening Tobacco Screening [facility] Start: 08-19-2024 End: 08-19-2024 Patient encounter procedure 08/19/2024 2:00 PM EST Office Visit [facility] [address] [facility] [place] [address] Mel Camacho MD [address] [place] [address], [address] [place] [id number] [facility] Start: 05-29-2024 COVID-19 Vaccine ( season) COVID-19 Vaccine ( season) [facility] Start: 05-29-2024 COVID-19 Vaccine ( season) COVID-19 Vaccine ( season) [facility] Start: 05-29-2024 Influenza vaccination Influenza Vaccine [facility] Start: 02-12-2024 End: 02-12-2024 Patient encounter procedure 02/12/2024 2:00 PM EDT Office Visit [facility] [address] [place] [address] Mel Camacho MD [address] [place] [address], [address] [place] [address] [facility] Start: 05-29-2023 COVID-19 Vaccine ( season) COVID-19 Vaccine ( season) [facility] Start: 05-29-2023 Influenza vaccination Influenza Vaccine [facility] Start: 02-08-2016 Fall Risk Screening Fall Risk Screening [facility] Start: 1970 Administration of varicella zoster vaccine Zoster (Shingles) Vaccine (1 of 2) [facility] Start: 1970 DTaP,Tdap and Td Vaccines (1 - Tdap) DTaP,Tdap and Td Vaccines (1 - Tdap) [facility] Start: 1950 Medicare Annual Wellness Visit Medicare Annual Wellness Visit [facility] Immunizations Immunization Date Immunization Notes Care Provider Fa cili 09-15-2021 Influenza Vaccine, Quadrivalent, Adjuvanted Mel Camacho MD Work Phone: [facility] 09-15-2021 influenza virus vaccine, unspecified formulation Mel Camacho MD Work Phone: [facility] 07-22-2021 SARS-CoV-2 (COVID-19 ) mRNA-1273 vaccine Baljit DOSHI [facility] [place] Comment on above: Result Comment: 2022: [id number] 12-19-2020 SARS-CoV-2 (COVID-19 ) mRNA-1273 vaccine Baljit DOSHI [facility] [place] 11-22-2020 SARS-CoV-2 (COVID-19 ) mRNA-1273 vaccine Baljit DOSHI [facility] [place] 06-05-2020 influenza, seasonal, injectable Mel Camacho MD Work Phone: [facility] 05-28-2020 pneumococcal conjuga te vaccine, 13 valent Mel Camacho MD Work Phone: [facility] Payers Date Payer Category Payer Medicare [employer] MEDICARE A ETNA MEDICARE PLAN (HMO) [id number] 2021-Present [phone] [address] [place] [address] [id number] 2021 Medicare HMO [employer] MEDICARE ember [id number] 1959 Medicare [id number] 1951 Unknown [id number] [id number] 1951 Unknown [id number] 2.16.840.1.076419.3.579.2.59 1951 Unknown [id number] 2.16.840.1.733373.3.579.2.593 1951 Unknown [id number] 2.16.840.1.350806.3.579.2.593 1951 Unknown [id number] 2.16.840.1.493595.3.579.2.593 1951 Unknown [id number] 2.16.840.1.233896.3.579.2.593 1951 Unknown [id number] 2.16.840.1.172753.3.579.2.593 1951 Unknown [id number] 2.16.840.1.405740.3.579.2.593 1951 Unknown [id number] 2.16.840.1.794448.3.579.2.593 1951 Unknown [id number] 2.16.840.1.029439.3.579.2.593 1951 Unknown [id number] 2.16.840.1.190705.3.579.2.593 1951 Unknown [id number] 2.16.840.1.029434.3.579.2.593 1951 Unknown [id number] 2.16.840.1.420693.3.579.2.593 1951 Unknown [id number] 2.16.840.1.050063.3.579.2.593 1951 Unknown [id number] 2.16.840.1.765326.3.579.2.593 1951 Unknown [id number] 2.16.840.1.295578.3.579.2.727 1951 Unknown [id number] 2.16.840.1.897062.3.579.2.727 1951 Unknown [id number] 2.16.840.1.878403.3.579.2.1286 1951 Unknown [id number] 2.16.840.1.328336.3.579.2.1286 1951 Unknown [id number] 2.16.840.1.014933.3.579.2.1286 Social History Date Type Detail Facility Start: 05-12-2023 Tobacco smoking status Ex-smoker (fi nding) [facility] Tobacco smoking status Never [facility] Start: 07-03-2020 End: 11-08-2020 Sex Assigned At Male [facility] Start: 12-17-2022 [facility] Start: 12-17-2022 Tobacco use and exposure Smokeless tobacco non-user [facility] Start: 09-27-2023 End: 11-08-2024 [facility] Start: 07-03-2020 End: 11-08-2020 History of Social function [facility] [employer] [facility] How often to you hav e a drink containing alcohol? Never [facility] Start: 1950 Sex Assigned At Not on file [facility] [employer] Start: 06-22-2020 [facility] (finding[facility] Functional Status Date Assessment Result Facility 05-12-2023 Functional Status N/A [facility] Clinical Notes 05-12-2023 to 10-25-2024 Joe Jang PA-C - 08/05/2024 3:00 PM ESTTelephone Encounter - Bhakti Soadrianna - 06/14/2024 11:00 AM EDTTelephone Encounter - JuanchoKeyonna Olea - 06/14/2024 11:00 AM EDT Note Date & Type Note Facility 10-25-2024 Note [facility] Consult Note Reason for visit: Bradycardia/ Syncope, s/p loop 10/26/27 Pt underwent Biotronik PPM implant and LOOP explant on 09/07/24. He had an episode of 11s pause on 09/03/24 which led to PPM. Pt s had episode of AF on that day. Device check today reveals normal function and no AF 12/07/22 Patient here for 3 mo follow up. Loop recorder was placed in Aug 2023 for syncope. He was seen in [facility] ED in Sep 2023 for generalized [...] at 5am and sleeps till 10am. 09/14/23: [employer] Patient is here for follow-up s/p loop implant and wound check Has been feeling with no complaints of chest pain, shortness of breath, LUEVANO, aches, chills, fever, palpitations Wound is healing well, there is a big scab but no drainage erythema or swelling Tolerating abx well 07/21/23 dr. Chaparro HPI: Efraín Johnson is a 74 y.o. with a past medical history of hypertension bradycardia and CKD was previously admitted at [facility] for sinus bradycardia. At that [...] by his PCP. he was seen by Mike GREENWOOD who had ordered a treadmill stress test to look for exercise-induced AV block. Metoprolol was discontinued at last apt in March 2023 by Mike Camarena DNP. Denies chest pain and palpitations. [...] Determinants of Health Tobacco Use: Medium Risk (09/07/2024) Patient History Smoking Tobacco Use: Former Smokeless Tobacco Use: Never Passive Exposure: Not on file Alcohol Use: Not At Risk (07/03/2020) Received from [employer] Frequency of Alcohol Consumption: Never Average Number of Drinks: Not on file Frequency of Binge Drinking: Not on file Financial Resource Strain: Low Risk (09/03/2024) Overall Financial Resource Strain (CARDIA) Difficulty of Paying Living Expenses: Not very hard Food Insecurity: No Food Insecurity (09/03/2024) Hunger Vital Sign Worried About Running Out of Food in the Last Year: Never true Ran Out of Food in the Last Year: Not on file Transportation Needs: No Transportation Needs (09/03/2024) Transportation Lack of Transportation (Medical): No Lack of Transportation (Non-Medical): Not on file Physical Activity: Not on file Stress: Not on file Social Connections: Not on file Intimate Partner Violence: Unknown (09/03/2024) Humiliation, Afraid, Rape, and Kick questionnaire Fear of Current or Ex-Partner: No Emotionally Abused: Not on file Physically Abused: Not on file Sexually Abused: Not on file Depression: Not at risk (09/18/2023) Received from [employer], [employer] PHQ-2 Total Score: 0 Housing Stability: Low Risk (09/03/2024) Housing Stability (more content not included)... [facility] 09-26-2024 Note Patient is here toda y for to follow-up on his pacemaker wound. Pacemaker implant wound and loop recorder explant wounds appear to be healing very well. There is no hematoma, no bruising, no swelling and no pain. The patient was advised that he can take a shower standing with the water running over him without covering the wound. He was advised not to sit in the past. Follow-up with Dr. Chaparro in 4 weeks [facility] 09-16-2024 Note Patient is here toda y for wound check after he underwent pacemaker implantation and removal of loop recorder on 09/07/2024. The patient states that he does well. He did not have any pain or swelling or oozing at the site Looking at the site he still has some redness due to bruising around both incisions, however no swelling or hematoma or oozing. One edge of the small incision of loop recorder removal appears to be white but no drainage. The patient is still taking antibiotics. I will bring him back in about 1 week to check the incision again. He was advised not to allow water to touch it and to cover it with 4 x 4 dry gauze and loose tape [facility] 09-07-2024 Note DUAL CHAMBER PACEMAK ER IMPLANT & LOOP EXPLANT PROCEDURE NOTE DATE OF PROCEDURE: 09/07/24 PERFORMING PHYSICIAN: Dr. Missael Chaparro CONSENT: Patient LOCATION: EP Lab PROCEDURE PERFORMED: 1. Implantation of dual chamber Pacemaker (Biotronik) 2. Ultrasound guided venous access 3. Removal of previously implanted LOOP ([employer]) INDICATIONS: 1. Sinus node dysfunction. 2. Syncope PROCEDURAL SEDATION: Versed and Fentanyl. Moderate sedation was administered by the sedation nurse under my supervision and noted in the CVL log. Intraprocedural face to face sedation time: 78min. Monitoring: Cardiac telemetry, Blood pressure, continuous pulse oxymetry. FLUOROSCOPY TIME: 4min/ 10mGray. EBL: 15cc SPECIMEN REMOVED: None PROCEDURAL DETAILS: Patient was placed in trendelenberg position and ultrasound was used to evaluate the patency of left axillary vein and for venous access. Left axillary venous access was obtained using modified seldinger technique using a 5 Chinese micro-puncture needle on two occasions and 0.35 wires were placed. Local infiltration of 1% Lidocaine was performed, and an incision was created in the left upper chest. Dissection was then performed using cautery down to the fascial plane above the muscle. The belly of the pectoralis was identified and with gentle blunt dissection a small pocket was created for the device above the muscle. 6 Chinese Safesheaths were placed over the wire. An active fixation Biotronik pacing lead was then delivered through the 6Fsheath tothe right ventricle. After confirmation of lead position on orthogonal views (OLIVAS and ALGERIAN) to confirm septal position, the screw was activated, and the lead was placed in the right ventricular mid cavity towards the septum. After confirmation of good sensing parameters, injury pattern and pacing thresholds, 10V pacing was done and no diaphragmatic stimulation was noted. It was then secured in the pocket using three 1-0 Silk sutures. Then an active fixation Biotronik lead was delivered through the 6Fsheath to the right atrial appendage. After confirmation of lead position on orthogonal views (OLIVAS and ALGERIAN), the screw was activated. Good sensing parameters, injury pattern and pacing thresholds, the lead was then tested using Lambert's maneuver. 10V pacing was done and no diaphragmatic stimulation was noted. It was then secured in the pocket using three 1-0 Silk sutures. Pocket hemostasis was secured, and it was then copiously and vigorously irrigated with antibiotic solution. The leads were attached to the generator and then wrapped under the device and the device was tacked to underlying muscle and placed in the pocket. The pocket was closed in layers: subcutaneous layer using 2-0 Vicryl; skin using 3-0 absorbable monofilament suture. Glue was applied and Tegaderm dressing was placed on top. Lead parameters were then rechecked through the device as noted below. I then proceeded to perform LOOP removal. Incision was made over the site of LOOP and the LOOP was identified and removed. The wound was closed with 3-0 Monocryl. The patient was returned to the short stay room for post procedural observation. No immediate procedural complications were noted. POST PROCEDURE EXAM: Patient was hemodynamically stable. COMPLICATIONS: None. IMPRESSION: 1. Successful dual chamber pacemaker with excellent pacing and sensing parameters. 2. LOOP removal. RECOMMENDATIONS: 1. Occlusive dressing to be removed after 2 weeks. 2. Do not wet the incision for 7 days. 3. No lifting heavy weights using arm on the same side x 3weeks 4. Do not lift elbow above the shoulder on the same side for 4-6 weeks. 5. No driving for 1 month. 6. F/u in device clinic 1 week from discharge or sooner for any concerns. Missael Chaparro MD Cardiac Electrophysiology [facility] 09-05-2024 Note Hospital Medicine Discharge Summary Final Discharge Diagnosis: Cardiac syncope Symptomatic bradycardia Sinus pauses Parkinson's disease Dementia without behavioral disturbance CKD stage IIIB Essential hypertension Admission Diagnosis: Cardiac syncope [R55] Hospital course: Efraín Johnson is an 74 y.o. male who came from [facility] with syncopal episode and sustained bradycardia. patient was found by at home after a fall that was unwitnessed. Past medical history is significant for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 Change [...] BE BASED ON THE PRIMARY CLINICAL RECORDS. [facility] [employer] provides no warranty or guarantee of the accuracy or completeness of information in this document.
[2024-12-23 15:29] LABS: Bilirubin Urine NEGATIVE (NEGATIVE); Blood Urine NEGATIVE (NEGATIVE); Clarity Urine CLEAR (CLEAR); Color Urine YELLOW (YELLOW); Glucose Urine UA NEGATIVE (NEGATIVE); Ketones Urine TRACE mg/dL (NEGATIVE); Leukocyte Esterase Urine NEGATIVE (NEGATIVE); Nitrite Urine NEGATIVE (NEGATIVE); Protein Urine NEGATIVE (NEG/TRACE); pH Urine 6.5 (5.0-9.0)
[2024-12-23 15:30] LABS: Basophils Absolute Auto 0.1 10^3/uL (0.0-0.1); Basophils Percent Auto 0.5 % (0.2-2.0); Eosinophils Absolute Auto 0.1 10^3/uL (0.0-0.7); Eosinophils Percent Auto 1.3 % (0.9-7.0); Hematocrit 48.6 % (42.0-54.0); Hemoglobin 15.6 g/dL (14.0-18.0); Immature Granulocytes Abs Auto 0.03 10^3/uL (0.00-0.03); Immature Granulocytes Pct Auto 0.3 % (0.0-0.5); Lymphocytes Absolute Auto 1.9 10^3/uL (1.2-3.8); Lymphocytes Percent Auto 19.1 % (20.5-60.0); Mean Corpuscular HGB Conc 32.1 g/dL (29.9-35.2); Mean Corpuscular Hemoglobin 26.9 pg (25.9-34.0); Mean Corpuscular Volume 83.9 fL (80.0-94.0); Mean Platelet Volume 9.9 fL (9.5-13.5); Monocytes Absolute Auto 0.9 10^3/uL (0.3-0.8); Monocytes Percent Auto 8.6 % (1.7-12.0); Neutrophils Absolute Auto 6.9 10^3/uL (1.4-6.5); Neutrophils Percent Auto 70.2 % (43.0-75.0); Platelet Count 355 10^3/uL (150-450); Red Blood Count 5.79 10^6/uL (4.70-6.10); Red Cell Distribution Width 14.9 % (11.0-15.0); White Blood Count 9.9 10^3/uL (4.0-11.0)
[2024-12-23 15:46] LABS: Bacteria Urine TRACE #/HPF (NONE SEEN); Cast Seen? NONE SEEN #/LPF (NONE SEEN); Crystals Seen? None Seen #/HPF (None Seen); Mucus Urine TRACE (NONE SEEN); RBC Urine NONE SEEN #/HPF (0-2); Squamous Epithelial Cell Urine RARE #/LPF (NONE/RARE); WBC Urine 0-2 #/HPF (NONE SEEN)
[2024-12-23 16:02] LABS: Protein Creatinine Ratio Urine 0.07
[2024-12-23 16:06] LABS: Alanine Aminotransferase <6 U/L (16-63); Albumin Globulin Ratio 1.1; Albumin Level 3.9 g/dL (3.4-5.0); Alkaline Phosphatase 103 U/L (46-116); Anion Gap 16.8; Aspartate Amino Transferase 19 U/L (15-37); BUN Creatinine Ratio 7.8; Bilirubin Total 0.8 mg/dL (0.2-1.0); Calcium 9.1 mg/dL (8.5-10.1); Carbon Dioxide 23.8 mmol/L (21.0-32.0); Chloride 106 mmol/L (98-107); Estimated GFR (African America 36 (>=60 mL/min/1.73m^2); Estimated GFR (Non-African Ame 30 (>=60 mL/min/1.73m^2); Globulin 3.4 g/dL; Glucose 98 mg/dL (74-106); Magnesium 2.1 mg/dL (1.8-2.4); Phosphorus 3.6 mg/dL (2.6-4.7); Potassium 4.6 mmol/L (3.5-5.1); Sodium 142 mmol/L (136-145); Total Protein 7.3 g/dL (6.4-8.2)
[2024-12-25 13:08] LABS: PTH, Intact 95 pg/mL (15-65)
[2024-12-27 13:09] LABS: Immunofixation, Urine Comment: (.)
[2024-12-27 14:09] LABS: Immunoglobulin A, Qn, Serum 159 mg/dL (61-437); Immunoglobulin G, Qn, Serum 600 mg/dL (603-1613); Immunoglobulin M, Qn, Serum 131 mg/dL (15-143)
== END 2024-12-23 15:04 | disposition home or self-care (01) ==
LOC: LAB 15:03
PROVIDERS: PCP Family Medicine
DX: N18.32 Chronic kidney disease, stage 3b (principal)
CPT/HCPCS: 36415; 80053; 81001; 82570; 83735; 83970; 84100; 84156; 84166; 85025; 86335

== ENCOUNTER 2025-01-01 16:07 | Emergency (ER) | payer MEDICARE, SELFPAY ==
[2025-01-01 16:12] VITALS: BP 139/78; PULSE 74; TEMP 36.7; O2SAT 96; BMI 25.1
--- OUTSIDE RECORDS SUMMARY | 2025-01-01 16:17 | XMS_ITS | CCD ---
Author Organization [facility] Care Team Providers Care Foreign Food Cook Specialty Name Role Phone DR FABIAN KENNEDY V [...] Unavailable Librado Helm MD Primary Care Provider [phone] Librado Helm MD Primary Care Provider [phone] Allergies Allergy Classification Reported Allergen(s) Allergy Type Date of Onset Reaction(s) Facility (3 sources) Penicillins; Translations: [PENICILLINS] Drug allergy (disorder) 4 [facility] (2 sources) Penicillin; Translations: [penicillin] Drug Allergy Weal (disorder) General Surgery [place] (7 sources) Penicillins Propensity to adverse reactions to drug 0 [facility] Medications Current Medications Medication Drug Class(es) [...] hydrochloride 5 mg oral tablet (3 sources) Z-cptsdy-Y-aspart ate Receptor Antagonist Start: 08-05-2024 End: 08-28-2024 memantine (NAMENDA) 5 mg tablet Indications: Mild dementia with agitation, unspecified dementia type ([facility]) TAKE 1 TABLET (5 MG) DAILY FOR [...] 02-10-2023 Chronic Other aftercare (1 source) Other senior living (current) drug therapy; Translations: [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 THERAPY] Onset: 02-10-2023 Episodic Other aftercare (1 source) long-term (current) use of aspirin; Translations: [RUBBER FLAP CUTTER CURRENT USE OF ASPIRIN] Onset: 02-10-2023 Episodic [...] Range Facility Office Visiton 10-25-2024 Follow-up visit [id number] Efraín Johnson 1950 M Date Provider Department Center 10/25/2024 MISSAEL PRINCE Family History Problem Relation Age of Onset Stroke Father Stroke Paternal Grandmother Stroke Paternal Grandfather Family Status - Relation Status Age at Father Paternal Grandmother Paternal Grandfather Level of Service:56274 [place] OFFICE/OUTPATIENT ESTABLISHED LOW MDM 20 MIN [facility] Office Visiton 09-26-2024 Follow-up visit [id number] Efraín Johnson 1950 M Date Provider Department Center 09/26/2024 ZEV JOHNSON Family History Problem Relation Age of Onset Stroke Father Stroke Paternal Grandmother Stroke Paternal Grandfather Family Status - Relation Status Age at Father Paternal Grandmother Paternal Grandfather Level of Service:01348 [place] POSTOP FOLLOW UP VISIT RELATED TO ORIGINAL PX [facility] Office Visiton 09-16-2024 Follow-up visit [id number] Efraín Johnson 1950 M Date Provider Department Center 09/16/2024 ZEV JOHNSON Family History Problem Relation Age of Onset Stroke Father Stroke Paternal Grandmother Stroke Paternal Grandfather Family Status - Relation Status Age at Father Paternal Grandmother Paternal Grandfather Level of Service:72059 [place] POSTOP FOLLOW UP VISIT RELATED TO ORIGINAL PX Reason for Visit and Comments: Wound Check [099904] - S/p PPM insertion with Dr. Chaparro on 09/07/2024 [facility] ANEMaxx 09-07-2024 ANES - Attestation signed by [...] attending and fellow. Additional Equipment Requests Normal [facility] APTTon 09-07-2024 ACTIVATED PARTIAL THROMBOPLASTIN TIME IN PPP BY COAGULATION ASSAY 31.9 Seconds Normal 25.0-35.0 [facility] Comment on above: Result Comment: Clin ical significance of the APTT is questionable in the presence of heparin. Performed By: #### L [id number] #### [facility] (BEAKER) [address] [place] [address] CBC WITH AUTO DIFFERENTIALon 09-07-2024 Basophils (Bld) [#/Vol] 0.07 10*3/uL Normal 0.00-0.20 [facility] Comment on above: Performed By: #### L [id number] #### [facility] (BEAKER) [address] [place] [address] Basophils/100 WBC (Bld) 0.9 % Normal 0.0-1.0 [facility] Comment on above: Performed By: #### L [id number] #### [facility] ([facility] [address] [place] [address] Eosinophils (Bld) [#/Vol] 0.06 10*3/uL Normal 0.00-0.50 [facility] Comment on above: Performed By: #### L [id number] #### [facility] ([facility]) [address] [place] [address] Eosinophils/100 WBC (Bld) 0.7 % Normal 0.0-6.0 [facility] Comment on above: Performed By: #### L [id number] #### [facility] ([facility]) [address] [place] [address] Erythrocyte distribution width (RBC) [Ratio] 15.2 % High 11.5-15.0 [facility] Comment on above: Performed By: #### L [id number] #### [facility] ([facility]) [address] [place] [address] ERYTHROCYTE MEAN CORPUSCULAR HEMOGLOBIN CONCENTRATION (G/DL) BY AUTOMATED 31.9 g/dL Low 32.0-35.0 [facility] Comment on above: Performed By: #### L [id number] #### [facility] ([facility] [address] [place] [address] Hematocrit (Bld) [Volume fraction] 44.2 % Normal 39.0-55.0 [facility] Comment on above: Performed By: #### L [id number] #### [facility] (BEAKER) [address] [place] [address] Hemoglobin (Bld) [Mass/Vol] 14.1 g/dL Normal 13.0-17.0 [facility] Comment on above: Performed By: #### L [id number] #### [facility] ([facility]) [address] [place] [address] Immature granulocytes (Bld) [#/Vol] 0.01 10*3/uL Normal 0.00-0.20 [facility] Comment on above: Performed By: #### L [id number] #### [facility] ([facility]) [address] [place] [address] Immature granulocytes/100 WBC (Bld) 0.1 % Normal 0.0-1.0 [facility] Comment on above: Performed By: #### L [id number] #### [facility] ([facility]) [address] [place] [address] Lymphocytes (Bld) [#/Vol] 1.19 10*3/uL Low 1.20-4.00 [facility] Comment on above: Performed By: #### L [id number] #### [facility] ([facility]) [address] [place] [address] Lymphocytes/100 WBC (Bld) 14.8 % Low 20.0-45.0 [facility] Comment on above: Performed By: #### L [id number] #### [facility] ([facility]) [address] [place] [address] MCH (RBC) [Entitic mass] 27.5 pg Normal 27.0-33.0 [facility] Comment on above: Performed By: #### L [id number] #### [facility] ([facility]) [address] [place] [address] MCV (RBC) [Entitic vol] 86.2 fL Normal 82.0-98.0 [facility] Comment on above: Performed By: #### L [id number] #### [facility] ([facility]) [address] [place] [address] Monocytes (Bld) [#/Vol] 0.86 10*3/uL Normal 0.10-1.00 [facility] Comment on above: Performed By: #### L [id number] #### [facility] (BEAKER) [address] [place] [address] Monocytes/100 WBC (Bld) 10.7 % Normal 5.0-12.0 [facility] Comment on above: Performed By: #### L [id number] #### [facility] ([facility]) [address] [place] [address] Neutrophils (Bld) [#/Vol] 5.83 10*3/uL Normal 1.60-7.60 [facility] Comment on above: Performed By: #### L [id number] #### [facility] ([facility]) [address] [place] [address] Neutrophils/100 WBC (Bld) 72.8 % High 40.0-72.0 [facility] Comment on above: Performed By: #### L [id number] #### [facility] ([facility]) [address] [place] [address] NRBC (PER 100 WBCS) BY AUTOMATED COUNT 0.0 % Normal 0 [facility] Comment on above: Performed By: #### L [id number] #### [facility] ([facility]) [address] [place] [address] PLATELETS (10*3/UL) IN BLOOD AUTOMATED COUNT 265 10*3/uL Normal 150-400 [facility] Comment on above: Performed By: #### L [id number] #### [facility] ([facility]) [address] [place] [address] RBC (Bld) [#/Vol] 5.13 10*6/uL Normal 4.20-5.70 [facility] Comment on above: Performed By: #### L [id number] #### [facility] ([facility]) [address] [place] [address] WBC (Bld) [#/Vol] 8.02 10*3/uL Normal 4.00-10.60 [facility] Comment on above: Performed By: #### L [id number] #### [facility] ([facility]) [address] [place] [address] COMPREHENSIVE METABOLIC PANE Peter 09-07-2024 Albumin [Mass/Vol] 4.4 g/dL Normal 3.5-5.7 [facility] Comment on above: Performed By: #### L [id number] #### [facility] (BEAKER) [address] [place] [address] ALP [Catalytic activity/Vol] 72 U/L Normal 34-104 [facility] Comment on above: Performed By: #### L [id number] #### [facility] (BEAKER) [address] [place] [address] ALT [Catalytic activity/Vol] 3 U/L Low 7-52 [facility] Comment on above: Performed By: #### L [id number] #### [facility] (BEAKER) [address] [place] [address] Anion gap [Moles/Vol] 12 mmol/L Normal 7-20 [facility] Comment on above: Performed By: #### L [id number] #### [facility] (BEAKER) [address] [place] [address] AST [Catalytic activity/Vol] 14 U/L Normal 13-39 [facility] Comment on above: Performed By: #### L [id number] #### [facility] (BEAKER) [address] [place] [address] Bilirubin [Mass/Vol] 0.7 mg/dL Normal 0.3-1.0 [facility] Comment on above: Performed By: #### L [id number] #### [facility] (BEAKER) [address] [place] [address] Calcium [Mass/Vol] 8.7 mg/dL Normal 8.6-10.3 [facility] Comment on above: Performed By: #### L [id number] #### [facility] (BEAKER) [address] [place] [address] Chloride [Moles/Vol] 109 mmol/L High 98-107 [facility] Comment on above: Performed By: #### L [id number] #### [facility] ([facility]) [address] [place] [address] CO2 [Moles/Vol] 20 mmol/L Low 21-31 [facility] Comment on above: Performed By: #### L [id number] #### [facility] ([facility]) [address] [place] [address] Creatinine [Mass/Vol] 1.77 mg/dL High 0.70-1.30 [facility] Comment on above: Performed By: #### L [id number] #### [facility] ([facility]) [address] [place] [address] GLOMERULAR FILTRATION RATE ML/MIN/1.73 SQ M.PREDICTED 40.1 mL/min/1.73m*2 Low >60.0 [facility] Comment on above: Result Comment: [facility]???s estimated glomerular filtration rate (eGFR) will [...] individuals. Performed By: #### L [id number] #### [facility] ([facility]) [address] [place] [address] Glucose [Mass/Vol] 87 mg/dL Normal 70-100 [facility] Comment on above: Performed By: #### L [id number] #### [facility] ([facility]) [address] [place] [address] Potassium [Moles/Vol] 4.3 mmol/L Normal 3.5-5.1 [facility] Comment on above: Performed By: #### L [id number] #### [facility] ([facility]) [address] [place] [address] Protein [Mass/Vol] 6.5 g/dL Normal 6.0-8.3 [facility] Comment on above: Performed By: #### L [id number] #### [facility] (BEAKER) [address] [place] [address] Sodium [Moles/Vol] 137 mmol/L Normal 136-145 [facility] Comment on above: Performed By: #### L [id number] #### [facility] (BEAKER) [address] [place] [address] Urea nitrogen [Mass/Vol] 24 mg/dL Normal 7-25 [facility] Comment on above: Performed By: #### L [id number] #### [facility] ([facility]) [address] [place] [address] UREA NITROGEN/CREATININE (MASS RATIO) IN SER/PLAS 13.6 Normal [facility] Comment on above: Performed By: #### L [id number] #### [facility] (BEAKER) [address] [place] [address] EDPROVon 09-07-2024 EDPROV History of Present Illness [...] in urine or stool, or hx of AL or stint placement. Pt is on aspirin and sees a call or contact centre team leader. . History provided by: Patient and caregiver (daughter) Edwin Coma Scale Score: 15 History Past Medical [...] 1431 ThuSep 07, 2024 1410 Spoke to [employer] staff who took patient to EP lab [...] shortness of breath. 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 Cardiology aware and will be sending patient to [facility] [employer] [facility].. Dr. Lara has independently reviewed the radiologist [...] 2 views (more content not included)... Normal [facility] HPon 09-07-2024 - Attestation signed by [...] disease, and Parkinson disease who presented to [facility] ED with fall after syncopal episode, his [...] Dementia (CMS/HCC), Hypokalemia, Hyponatremia, and Parkinson disease ([facility]). Surgical History He has a past surgical [...] Rate and Rhy (more content not included)... [facility] Iraj 09-07-2024 TRICIA RN educated pt on [...] of unit with all of belongings. Normal [facility] PROTIME-INRon 09-07-2024 INR IN PPP BY COAGULATION ASSAY 1.04 Normal 0.90-1.10 [facility] Comment on above: Result Comment: ACCC [...] 1995;[id number]. Performed By: #### L [id number] #### [facility] (BEAKER) [address] [place] [address] PROTHROMBIN TIME (PT) IN PPP BY COAGULATION ASSAY 13.6 Seconds Normal 12.3-14.8 [facility] Comment on above: Performed By: #### L [id number] #### [facility] (BEAKER) [address] [place] [address] TROPONIN Ion 09-07-2024 Troponin I.cardiac [Mass/Vol] 0.01 ng/mL Normal 0.00-0.04 [facility] Comment on above: Performed By: #### L [id number] #### [facility] (PAUL) [address] [place] [address] 36on 09-06-2024 36 Attempted discharge follow up phone call. Spoke to pts daughter Mere that said he was not home presently. Left message with daughter. Normal [facility] Telephoneon 09-06-2024 Telephone [id number] Efraín Johnson Pinky 1950 M Date Provider Department Center 09/06/2024 [facility] [place] [facility] Family History Problem Relation Age of Onset Stroke Father Stroke Paternal Grandmother Stroke Paternal Grandfather Family Status - Relation Status Age at Father Paternal Grandmother Paternal Grandfather Normal [facility] 30on 09-05-2024 30 Problem: Pain - [...] and behaviors that affect risk of falls [place] fall precautions as indicated by assessment Educate [...] Absence of (more content not included)... Normal [facility] 30 The patient is Moderately Stable [...] and behaviors that affect risk of falls [place] fall precautions as indicated by assessment Educate patient/family on patient safety, including physical limitations Instruct patient to call for assistance with activity based on assessment Modify environment to reduce risk of injury Normal [facility] BASIC METABOLIC PANELon 12-0 Anion gap [Moles/Vol] 12 mmol/L Normal 7-20 [facility] Comment on above: Performed By: #### L [id number] ####[facility] (BEAKER)[address] [place] [address] Calcium [Mass/Vol] 8.8 mg/dL Normal 8.6-10.3 [facility] Comment on above: Performed By: #### L [id number] ####[facility] (BEAKER)[address] [place] [address] Chloride [Moles/Vol] 107 mmol/L Normal 98-107 [facility] Comment on above: Performed By: #### L [id number] ####[facility] (BEAKER)[address] [facility] [place] [address] CO2 [Moles/Vol] 20 mmol/L Low 21-31 [facility] Comment on above: Performed By: #### L [id number] ####[facility] ([facility])[address] [place] [address] Creatinine [Mass/Vol] 1.38 mg/dL High 0.70-1.30 [facility] Comment on above: Performed By: #### L [id number] ####[facility] ([facility])[address] [place] [address] GLOMERULAR FILTRATION RATE ML/MIN/1.73 SQ M.PREDICTED 54.0 mL/min/1.73m*2 Low >60.0 [facility] Comment on above: Result Comment: [facility]???s estimated glomerular filtration rate (eGFR) will [...] of individuals. Performed By: #### L [id number] ####[facility] ([facility])[address] [place] [address] Glucose [Mass/Vol] 89 mg/dL Normal 70-100 [facility] Comment on above: Performed By: #### L [id number] ####[facility] ([facility])[address] [place] [address] Potassium [Moles/Vol] 3.6 mmol/L Normal 3.5-5.1 [facility] Comment on above: Performed By: #### L [id number] ####[facility] ([facility])[address] [place] [address] Sodium [Moles/Vol] 135 mmol/L Low 136-145 [facility] Comment on above: Performed By: #### L [id number] ####[facility] ([facility])[address] [place] [address] Urea nitrogen [Mass/Vol] 18 mg/dL Normal 7-25 [facility] Comment on above: Performed By: #### L [id number] ####[facility] ([facility] [place] [address] UREA NITROGEN/CREATININE (MASS RATIO) IN SER/PLAS 13.0 Normal [facility] Comment on above: Performed By: #### L [id number] ####[facility] ([facility])[address] [place] [id number] CBCon 09-05-2024 Erythrocyte distribution width (RBC) [Ratio] 14.9 % Normal 11.5-15.0 [facility] Comment on above: Performed By: #### L [id number] ####[facility] ([facility])[address] [place] [address] ERYTHROCYTE MEAN CORPUSCULAR HEMOGLOBIN CONCENTRATION (G/DL) BY AUTOMATED 33.2 g/dL Normal 32.0-35.0 [facility] Comment on above: Performed By: #### L [id number] ####[facility] ([facility] [place] [address] Hematocrit (Bld) [Volume fraction] 45.2 % Normal 39.0-55.0 [facility] Comment on above: Performed By: #### L [id number] ####[facility] ([facility] [place] [address] Hemoglobin (Bld) [Mass/Vol] 15.0 g/dL Normal 13.0-17.0 [facility] Comment on above: Performed By: #### L [id number] ####[facility] ([facility] [place] [address] MCH (RBC) [Entitic mass] 27.3 pg Normal 27.0-33.0 [facility] Comment on above: Performed By: #### L [id number] ####[facility] (BEAKER)[address] [place] [address] MCV (RBC) [Entitic vol] 82.2 fL Normal 82.0-98.0 [facility] Comment on above: Performed By: #### L [id number] ####[facility] ([facility])[address] [place] [address] PLATELETS (10*3/UL) IN BLOOD AUTOMATED COUNT 267 10*3/uL Normal 150-400 [facility] Comment on above: Performed By: #### L [id number] ####[facility] ([facility])[address] [place] [address] RBC (Bld) [#/Vol] 5.50 10*6/uL Normal 4.20-5.70 [facility] Comment on above: Performed By: #### L [id number] ####[facility] ([facility])[address] [place] [address] WBC (Bld) [#/Vol] 7.60 10*3/uL Normal 4.00-10.60 [facility] Comment on above: Performed By: #### L [id number] ####[facility] ([facility])[address] [place] [address] CONSULTon 09-05-2024 CONSULT - Attestation signed by [...] disease, and Parkinson disease who presented to [facility] ED with fall after syncopal episode, his [...] morning. memantine (N (more content not included)... [facility] CT HEAD WO IV CONTRASTon CT HEAD [...] Macias MD. Not Vldtd Invalid Interpretation Code [facility] 30on 09-04-2024 30 The patient is [...] and behaviors that affect risk of falls [place] fall precautions as indicated by assessment Instruct [...] and prevent overall improvement and discharge Normal [facility] 30 The patient is Moderately Stable - Low risk of patient condition declining or worsening The patient's goals for the shift include The clinical goals for the shift include vss Normal [facility] 30 The patient is Moderately Stable - Low risk of patient condition declining or worsening The patient's goals for the shift include COMFORT The clinical goals for the shift include vss Normal [facility] CBC WITH AUTO DIFFERENTIALon 09-04-2024 Basophils (Bld) [#/Vol] 0.04 10*3/uL Normal 0.00-0.20 [facility] Comment on above: Performed By: #### L [id number] #### [facility] (BEAKER) [address] [place] [address] Basophils/100 WBC (Bld) 0.4 % Normal 0.0-1.0 [facility] Comment on above: Performed By: #### L [id number] #### [facility] (BEAKER) [address] [place] [address] Eosinophils (Bld) [#/Vol] 0.01 10*3/uL Normal 0.00-0.50 [facility] Comment on above: Performed By: #### L [id number] #### [facility] (BEAKER) [address] [place] [address] Eosinophils/100 WBC (Bld) 0.1 % Normal 0.0-6.0 [facility] Comment on above: Performed By: #### L [id number] #### [facility] ([facility]) [address] [place] [address] Erythrocyte distribution width (RBC) [Ratio] 14.9 % Normal 11.5-15.0 [facility] Comment on above: Performed By: #### L [id number] #### [facility] ([facility]) [address] [place] [address] ERYTHROCYTE MEAN CORPUSCULAR HEMOGLOBIN CONCENTRATION (G/DL) BY AUTOMATED 32.4 g/dL Normal 32.0-35.0 [facility] Comment on above: Performed By: #### L [id number] #### [facility] ([facility]) [address] [place] [address] Hematocrit (Bld) [Volume fraction] 45.0 % Normal 39.0-55.0 [facility] Comment on above: Performed By: #### L [id number] #### [facility] ([facility]) [address] [place] [address] Hemoglobin (Bld) [Mass/Vol] 14.6 g/dL Normal 13.0-17.0 [facility] Comment on above: Performed By: #### L [id number] #### [facility] [facility] ([facility]) [address] [place] [address] Immature granulocytes (Bld) [#/Vol] 0.02 10*3/uL Normal 0.00-0.20 [facility] Comment on above: Performed By: #### L [id number] #### [facility] ([facility]) [address] [place] [address] Immature granulocytes/100 WBC (Bld) 0.2 % Normal 0.0-1.0 [facility] Comment on above: Performed By: #### L [id number] #### [facility] ([facility]) [address] [place] [address] Lymphocytes (Bld) [#/Vol] 1.17 10*3/uL Low 1.20-4.00 [facility] Comment on above: Performed By: #### L [id number] #### [facility] ([facility]) [address] [place] [id number] Lymphocytes/100 WBC (Bld) 11.8 % Low 20.0-45.0 [facility] Comment on above: Performed By: #### L [id number] #### [facility] ([facility]) [address] [place] [id number] MCH (RBC) [Entitic mass] 27.2 pg Normal 27.0-33.0 [facility] Comment on above: Performed By: #### L [id number] #### [facility] ([facility]) [address] [place] [address] MCV (RBC) [Entitic vol] 83.8 fL Normal 82.0-98.0 [facility] Comment on above: Performed By: #### L [id number] #### [facility] ([facility]) [address] [place] [address] Monocytes (Bld) [#/Vol] 0.89 10*3/uL Normal 0.10-1.00 [facility] Comment on above: Performed By: #### L [id number] #### [facility] ([facility]) [address] [place] [address] Monocytes/100 WBC (Bld) 9.0 % Normal 5.0-12.0 [facility] Comment on above: Performed By: #### L [id number] #### [facility] ([facility]) [address] [place] [address] Neutrophils (Bld) [#/Vol] 7.78 10*3/uL High 1.60-7.60 [facility] Comment on above: Performed By: #### L [id number] #### [facility] ([facility]) [address] [place] [address] Neutrophils/100 WBC (Bld) 78.5 % High 40.0-72.0 [facility] Comment on above: Performed By: #### L [id number] #### [facility] ([facility]) [address] [place] [address] NRBC (PER 100 WBCS) BY AUTOMATED COUNT 0.0 % Normal 0 [facility] Comment on above: Performed By: #### L [id number] #### [facility] ([facility]) [address] [place] [address] PLATELETS (10*3/UL) IN BLOOD AUTOMATED COUNT 279 10*3/uL Normal 150-400 [facility] Comment on above: Performed By: #### L [id number] #### [facility] ([facility]) [address] [place] [address] RBC (Bld) [#/Vol] 5.37 10*6/uL Normal 4.20-5.70 [facility] Comment on above: Performed By: #### L [id number] #### [facility] ([facility]) [address] [place] [address] WBC (Bld) [#/Vol] 9.91 10*3/uL Normal 4.00-10.60 [facility] Comment on above: Performed By: #### L [id number] #### [facility] ([facility]) [address] [place] [address] COMPREHENSIVE METABOLIC PANE Peter 09-04-2024 Albumin [Mass/Vol] 4.3 g/dL Normal 3.5-5.7 [facility] Comment on above: Performed By: #### L [id number] #### [facility] ([facility]) [address] [place] [address] ALP [Catalytic activity/Vol] 70 U/L Normal 34-104 [facility] Comment on above: Performed By: #### L [id number] #### [facility] ([facility]) [address] [place] [address] ALT [Catalytic activity/Vol] 8 U/L Normal 7-52 [facility] Comment on above: Performed By: #### L [id number] #### [facility] ([facility]) [address] [place] [address] Anion gap [Moles/Vol] 14 mmol/L Normal 7-20 [facility] Comment on above: Performed By: #### L [id number] #### [facility] ([facility]) [address] [place] [address] AST [Catalytic activity/Vol] 14 U/L Normal 13-39 [facility] Comment on above: Performed By: #### L [id number] #### [facility] ([facility]) [address] [place] [address] Bilirubin [Mass/Vol] 1.4 mg/dL High 0.3-1.0 [facility] Comment on above: Performed By: #### L [id number] #### [facility] ([facility]) [address] [place] [address] Calcium [Mass/Vol] 9.1 mg/dL Normal 8.6-10.3 [facility] Comment on above: Performed By: #### L [id number] #### [facility] [address] [place] [address] Chloride [Moles/Vol] 110 mmol/L High 98-107 [facility] Comment on above: Performed By: #### L [id number] #### [facility] [address] [place] [address] CO2 [Moles/Vol] 19 mmol/L Low 21-31 [facility] Comment on above: Performed By: #### L [id number] #### [facility] [address] [place] [address] Creatinine [Mass/Vol] 1.47 mg/dL High 0.70-1.30 [facility] Comment on above: Performed By: #### L [id number] #### [facility] [address] [place] [address] GLOMERULAR FILTRATION RATE ML/MIN/1.73 SQ M.PREDICTED 50.1 mL/min/1.73m*2 Low >60.0 [facility] Comment on above: Result Comment: [facility]???s estimated glomerular filtration rate (eGFR) will [...] individuals. Performed By: #### L [id number] #### [facility] ([facility]) [address] [place] [address] Glucose [Mass/Vol] 87 mg/dL Normal 70-100 [facility] Comment on above: Performed By: #### L [id number] #### [facility] ([facility]) [address] [place] [address] Potassium [Moles/Vol] 4.0 mmol/L Normal 3.5-5.1 [facility] Comment on above: Performed By: #### L [id number] #### [facility] ([facility]) [address] [place] [address] Protein [Mass/Vol] 6.6 g/dL Normal 6.0-8.3 [facility] Comment on above: Performed By: #### L [id number] #### [facility] ([facility]) [address] [place] [address] Sodium [Moles/Vol] 139 mmol/L Normal 136-145 [facility] Comment on above: Performed By: #### L [id number] #### [facility] [address] [place] [address] Urea nitrogen [Mass/Vol] 18 mg/dL Normal 7-25 [facility] Comment on above: Performed By: #### L [id number] #### [facility] ([facility]) [address] [place] [address] UREA NITROGEN/CREATININE (MASS RATIO) IN SER/PLAS 12.2 Normal [facility] Comment on above: Performed By: #### L [id number] #### [facility]) [place] [address] CONSULTon 09-04-2024 CONSULT - Attestation signed by [...] of recurrent syncopal episodes and follows with [facility] cardiology clinic outpatient. Patient was [...] EYES: P (more content not included)... Normal [facility] NURSNOTEon 09-04-2024 NURSNOTE Patient pleasantly confused and restless this shift. Pulled IV x3 near start of shift. IV's replaced x2, warren sleeves ordered and applied. Marketer notified Dr. Hale that patient continues to be restless with several attempts to rise from bed without assistance. Melatonin administered at HS, ineffective for sleep promotion. Order received for Ativan 0.5mg PO. Patient compliant with medication administration. Will continue to monitor this shift. Normal [facility] TSHon 09-04-2024 THYROTROPIN (MIU/L) IN SER/PLAS BY DETECTION LIMIT <= 0.05 MIU/L 0.56 mIU/L Normal 0.34-5.60 [facility] Comment on above: Performed By: #### L [id number] #### [facility] ([facility]) [address] [place] [address] POCT GLUCOSE METER UNSOLICIT ED RESULTSon 09-03-2024 Glucose [Mass/Vol] 107 mg/dL High 70-105 [facility] Comment on above: Order Comment: Waive d Testing in the ED is performed under the ED CLIA certificate #[id number]. Result Comment: [id number] Performed By: #### L [id number] #### [facility] ([facility]) [address] [place] [address] TROPONIN Ion 09-03-2024 Troponin I.cardiac [Mass/Vol] 0.01 ng/mL Normal 0.00-0.04 [facility] Comment on above: Performed By: #### L [id number] #### [facility] ([facility]) [address] [place] [address] Office Visiton 06-01-2024 Follow-up visit [id number] Efraín Johnson Pinky 1950 M Date Provider Department Center 06/01/2024 ZEV JOHNSON PILAR Fry Family History Problem Relation Age of Onset Stroke Father Stroke Paternal Grandmother Stroke Paternal Grandfather Family Status - Relation Status Age at Father Paternal Grandmother Paternal Grandfather Level of Service:86463 [place] OFFICE/OUTPATIENT ESTABLISHED MOD MDM 30 MIN Reason for Visit and Comments: Hyperlipidemia [182] Hypertension [770813] - Pt is here for a six month follow up. Normal [facility] Office Visiton 12-08-2023 Follow-up visit [id number] AlexEfraín Vance 1950 M Date Provider Department Center 12/08/2023 MISSAEL PRINCE PILAR Fry Family History Problem Relation Age of Onset Stroke Father Stroke Paternal Grandmother Stroke Paternal Grandfather Family Status - Relation Status Age at Father Paternal Grandmother Paternal Grandfather Level of Service:67578 [place] OFFICE/OUTPATIENT ESTABLISHED LOW MDM 20 MIN Normal [facility] Outside Colonoscopyon 2022 Outside Colonoscopy [id number] .00CD:127 Normal [facility] Insurance Correspondenceon 0 05-14-2023 Insurance Correspondence [id number]# 1.00CD:127 Normal [facility] Consent for Procedure/Surger yon 05-13-2023 Consent for Procedure/Surgery [id number] .00CD:127 Normal [facility] Ambulatory Visit Summaryon 0 05-12-2023 [...] Epidermoid cyst of skin of back Normal [facility] ED Note-Physicianon 04-15-20 ED Note-Physician [id number]#1 .00CD:127 Normal [facility] RAD - CT Reporton 04-15-2023 RAD - CT Report [id number]#1 .00CD:127 Normal [facility] Physician Referralon 023 Physician Referral [id number] .00CD:127 Normal [facility] Physician Referralon 023 Physician Referral [id number] .00CD:127 Normal [facility] BLOOD CULTURE ID PANELon A. baumannii Not detected Normal NOT DETECTED [facility] Comment on above: Performed By: #### B CID2 ####[facility] [address] [place] [address]Dr. Flaco Lawrence Bacteriodes fragilis Not detected Normal NOT DETECTED [facility] Comment on above: Performed By: #### B CID2 ####[facility] [address], [place] [address]Rk. Yilan Lawrence BCID CONTROLS PASSED Normal [facility] Comment on above: Performed By: #### B CID2 ####[facility] [address] [place] [address]Dr. Yiedith Lawrence BCIDBTHD BLOOD CULTURE BOTTLE INFORMATION Normal [facility] Comment on above: Performed By: #### B CID2 ####[facility] [address] [place] [address]Dr. Yiedith Lawrence BCIDHD1 ANTIMICROBIAL RESISTANCE GENES [facility] Comment on above: Performed By: #### B CID2 ####[facility] [address] [place] [address]Dr. Yiedith Lawrence BCIDHD2 SEE BELOW [facility] Comment on above: Result Comment: Note : Antimicrobial resitance can occur via multiple mechanisms. A Not Detected result for the [employer] antomicrobial resistance gene assays does not indicate antimicrobial susceptibility. Subculturing is required for species identification and susceptibility testing of isolates. Performed By: #### B CID2 ####[facility] [address] [place] [address]Dr. Yiedith Lawrence BCIDHD3 Positive [facility] Comment on above: Performed By: #### B CID2 ####[facility] [address] [place] [address]Dr. Yilan Lawrence BCIDHD4 Negative [facility] Comment on above: Performed By: #### B CID2 ####[facility] [address] [place] [address]Dr. Yiedith Lawrence BCIDHD5 YEAST Normal [facility] Comment on above: Performed By: #### B CID2 ####[facility] [address] [place] [address]Dr. Yilan Lawrence Bottle Set: Set 2 [place] [facility] Comment on above: Performed By: #### B CID2 ####[facility] [address] [place] [address]Dr. Yilan Lawrence Bottle: Pediatric Normal [facility] Comment on above: Performed By: #### B CID2 ####[facility] [address]wrfha[address] [place] [address]Dr. Yiedith Lawrence C. neoformans/gattii Not detected Normal NOT DETECTED [facility] Comment on above: Performed By: #### B CID2 ####[facility] [address]ci[address] [place] [address]Dr. Yiedith Lawrence Angela albicans Not detected Normal NOT DETECTED [facility] Comment on above: Performed By: #### B CID2 ####[facility] [address] [place] [address]Dr. Yiedith Lawrence Angela auris Not detected Normal NOT DETECTED The [facility] Comment on above: Performed By: #### B CID2 ####[facility] [address] [place], [place] [address]Dr. Yiedith Lawrence Angela glabrata Not detected Normal NOT DETECTED [facility] Comment on above: Performed By: #### B CID2 ####[facility] [address]zqkwabwl[address] [place], [place] [address]Dr. Yiedith Lawrence Angela Krusei Not detected Normal NOT DETECTED [facility] Comment on above: Performed By: #### B CID2 ####[facility] Qmdkagcneg[address] [place], [place] [address]Dr. Yiedith Lawrence Angela Parapsilosis Not detected Normal NOT DETECTED [facility] Comment on above: Performed By: #### B CID2 ####[facility] [address] [place] [address]Dr. Yiedith Lawrence Angela Tropicalis Not detected Normal NOT DETECTED [facility] Comment on above: Performed By: #### B CID2 ####[facility] [address] [place] [address]Dr. Flaco Lawrence CTX-M Resistant Gene Not Applicable Normal NOT DETECTE D [facility] Comment on above: Performed By: #### B CID2 ####[facility] D[address]xgfi[address] [place] [address]Dr. Yiedith Lawrence E. Cloacae complex Not detected Normal NOT DETECTED [facility] Comment on above: Performed By: #### B CID2 ####[facility] [address] [place], [place] [address]Dr. Yilan Lawrence E. faecalis Not detected Normal NOT DETECTED [facility] Comment on above: Performed By: #### B CID2 ####[facility] Hon[address]phf[address] [place], [place] [address]Dr. Flaco Lawrence E. faecium Not detected Normal NOT DETECTED [facility] Comment on above: Performed By: #### B CID2 ####[facility] A[address] [place], [place] [address]Dr. Flaco Lawrence Enterobacteriaceae Not detected Normal NOT DETECTED [facility] Comment on above: Performed By: #### B CID2 ####[facility] [address] [place], [place] [address]Dr. Flaco Lawrence Escherichia coli Not detected Normal NOT DETECTED [facility] Comment on above: Performed By: #### B CID2 ####[facility] Z[address]ub[address] [place], [place] [address]Dr. Flaco Lawrence H. influenzae Not detected Normal NOT DETECTED The [facility] Comment on above: Performed By: #### B CID2 ####[facility] T[address]yg[address] [place], [place] [address]Dr. Flaco Lawrence IMP Resistant Gene Not Applicable Normal NOT DETECTED [facility] Comment on above: Performed By: #### B CID2 ####[facility] [address]vs[address]em[address] [place], [place] [address]Dr. Flaco Lawrence K. oxytoca Not detected Normal NOT DETECTED [facility] Comment on above: Performed By: #### B CID2 ####[facility] [address]qicuoql[address] [place], [place] [address]Dr. Flaco Lawrence K. pneumoniae Not detected Normal NOT DETECTED [facility] Comment on above: Performed By: #### B CID2 ####[facility] [address]eltzjaekg[address] [place], [place] [address]Dr. Flaco Lawrence Klebsiella aerogenes Not detected Normal NOT DETECTED [facility] Comment on above: Performed By: #### B CID2 ####[facility] P[address]drqayefy[address] [place], [place] [address]Dr. Flaco Lawrence KPC Resistant Gene Not detected Normal NOT DETECTED [facility] Comment on above: Performed By: #### B CID2 ####[facility] [address] [place] [address]Dr. Flaco Lawrence List. monocytogenes Not detected Normal NOT DETECTED [facility] Comment on above: Performed By: #### B CID2 ####[facility] [address]ax[address] [place] [address]Dr. Flaco Lawrence Mcr-1 Resistant Gene Not Applicable Normal NOT DETECTE D [facility] Comment on above: Performed By: #### B CID2 ####[facility] Y[address]qc[address]tw[address] [place], [place] [address]Dr. Flaco Lawrence mecA/C Not Applicable Normal NOT DETECTED [facility] Comment on above: Performed By: #### B CID2 ####[facility] [address]wkbltvm[address] [place], [place] [address]Dr. Flaco Lawrence mecA/C MREJ Not Applicable Normal NOT DETECTED The [facility] Comment on above: Performed By: #### B CID2 ####[facility] Jnovhahohn[address] [place], [place] [address]Dr. Flaco Lawrence N. meningitidis Not detected Normal NOT DETECTED [facility] Comment on above: Performed By: #### B CID2 ####[facility] Buxvpamrwb[address] [place], [place] [address]Dr. Flaco Lawrence NDM Resistant Gene Not Applicable Normal NOT DETECTED [facility] Comment on above: Performed By: #### B CID2 ####[facility] Ofqwtgluwn[address] [place], [place] [address]Dr. Flaco Lawrence Oxa-48-like Not Applicable Normal NOT DETECTED [facility] Comment on above: Performed By: #### B CID2 ####[facility] Kwkggfyhbj[address] [place], [place] [address]Dr. Flaco Lawrence Proteus Not detected Normal NOT DETECTED [facility] Comment on above: Performed By: #### B CID2 ####[facility] Wmlypohacv[address] [place], [place] [address]Dr. Flaco Lawrence Pseud. aeruginosa Not detected Normal NOT DETECTED [facility] Comment on above: Performed By: #### B CID2 ####[facility] [address] [place] [address]Dr. Flaco Lawrence S. maltophilia Not detected Normal NOT DETECTED [facility] Comment on above: Performed By: #### B CID2 ####[facility] Bnxvyfr[address]ch[address] [place], [place] [address]Dr. Flaco Lawrence Salmonella Not detected Normal NOT DETECTED [facility] Comment on above: Performed By: #### B CID2 ####[facility] [address] [place], [place] [address]Dr. Flaco Lawrence Seratia marcescens Not detected Normal NOT DETECTED [facility] Comment on above: Performed By: #### B CID2 ####[facility] Rtmvhliyim[address] [place], [place] [address]Dr. Flaco Lawrence Site: left hand Normal [facility] Comment on above: Performed By: #### B CID2 ####[facility] Xvmdgvgron[address] [place], [place] [address]Dr. Flaco Lawrence Staph. aureus Not detected Normal NOT DETECTED [facility] Comment on above: Performed By: #### B CID2 ####[facility] R[address]clwxbf[address] [place], [place] [address]Dr. Flaco Lawrence Staph. epidermidis Not detected Normal NOT DETECTED [facility] Comment on above: Performed By: #### B CID2 ####[facility] [address]jktxvsn[address] [place], [place] [address]Dr. Flaco Lawrence Staph. lugdunensis Not detected Normal NOT DETECTED [facility] Comment on above: Performed By: #### B CID2 ####[facility] Rtmpqedfkx[address] [place], [place] [address]Dr. Flaco Lawrence Staphylococcus Not detected Normal NOT DETECTED [facility] Comment on above: Performed By: #### B CID2 ####[facility] [address]cfbstw[address] [place], [place] [address]Dr. Flaco Lawrence Strep. agalactiae Not detected Normal NOT DETECTED [facility] Comment on above: Performed By: #### B CID2 ####[facility] Z[address]zso[address] [place], [place] [address]Dr. Purviedith Lawrence Strep. pneumoniae Not detected Normal NOT DETECTED [facility] Comment on above: Performed By: #### B CID2 ####[facility] [address]zqartmbf[address] [place], [place] [address]Dr. Flaco Lawrence Strep. pyogenes Not detected Normal NOT DETECTED [facility] Comment on above: Performed By: #### B CID2 ####[facility] P[address]qcincrd[address] [place], [place] [address]Dr. Flaco Lawrence Streptococcus Detected Critically abnormal NOT DETECTED [facility] Comment on above: Performed By: #### B CID2 ####[facility] Oxgsoujiwl[address] [place], [place] [address]Dr. Flaco Lawrence Hao/B Resist. Gene Not detected Normal NOT DETECTED [facility] Comment on above: Performed By: #### B CID2 ####[facility] Kqbjntlnwi[address] [place], [place] [address]Dr. Flaco Lawrence VIM Resistant Gene Not Applicable Normal NOT DETECTED [facility] Comment on above: Performed By: #### B CID2 ####[facility] Ctmbufw[address] [place], [place] [address]Dr. Flaco Lawrence CBC AUTO DIFFon 02-10-2023 BASO # 0.0 103/ul Normal 0.0-0.1 [facility] Comment on above: Performed By: #### C BC ####[facility] [address]ys[address] [place], [place] [address]Dr. Flaco Lawrence Basophils/100 WBC (Bld) 0.5 % Normal 0.2-2.0 [facility] Comment on above: Performed By: #### C BC ####[facility] M[address]wtnyumz[address] [place], [place] [address]Dr. Flaco Lawrence EO # 0.1 103/ul Normal 0.0-0.7 [facility] Comment on above: Performed By: #### C BC ####[facility] Owrxjs[address]nev[address] [place], [place] [address]Dr. Flaco Lawrence Eosinophils/100 WBC (Bld) 1.1 % Normal 0.9-7.0 [facility] Comment on above: Performed By: #### C BC ####[facility] Rtrcccxbiz[address] [place], [place] [address]Dr. Flaco Lawrence Erythrocyte distribution width (RBC) [Ratio] 16.0 % Critically high 11.0-15.0 [facility] Comment on above: Performed By: #### C BC ####[facility] Iooxfygovj[address] [place], [place] [address]Dr. Flaco Lawrence Hematocrit (Bld) [Volume fraction] 40.1 % Critically low 42.0-54.0 [facility] Comment on above: Performed By: #### C BC ####[facility] Yjpgbgngld[address] [place], [place] [address]Dr. Flaco Lawrence Hemoglobin (Bld) [Mass/Vol] 13.2 g/dL Critically low 14.0-18.0 [facility] Comment on above: Performed By: #### C BC ####[facility] Q[address]utwiw[address] [place], [place] [address]Dr. Flaco Lawrence IG # 0.01 10e3/ul Normal 0.00-0.03 [facility] Comment on above: Performed By: #### C BC ####[facility] [address] [place], [place] [address]Dr. Flaco Lawrence IG % 0.2 % Normal 0.0-0.5 [facility] Comment on above: Performed By: #### C BC ####[facility] Mlbywwckit[address] [place], [place] [address]Dr. Flaco Lawrence LYMPH # 1.8 103/ul Normal 1.2-3.8 [facility] Comment on above: Performed By: #### C BC ####[facility] Atvrljbxhp213[address] [place], [place] [address]Dr. Flaco Lawrence Lymphocytes/100 WBC (Bld) 28.1 % Normal 20.5-60.0 [facility] Comment on above: Performed By: #### C BC ####[facility] Dzfigsurzu4410[address] [place], [place] [address]Dr. Flaco Lawrence MANUAL DIFF REQ NO Normal [facility] Comment on above: Performed By: #### C BC ####[facility] Ritjcqycou[address] [place] [address]Dr. Flaco Lawrence MCH (RBC) [Entitic mass] 28.0 pg Normal 25.9-34.0 [facility] Comment on above: Performed By: #### C BC ####[facility] Jenewyktdj8[address] [place] [address]Dr. Flaco Lawrence MCHC (RBC) [Mass/Vol] 32.9 g/dL Normal 29.9-35.2 [facility] Comment on above: Performed By: #### C BC ####[facility] Cgnluayxpa50[address] [place], [place] [address]DrJeramie Lawrence MCV (RBC) [Entitic vol] 85.0 fL Normal 80.0-94.0 [facility] Comment on above: Performed By: #### C BC ####[facility] Spxhrlxyjh5368[address] [place], [place] [address]DrJeramie Lawrence MONO # 0.5 103/ul Normal 0.3-0.8 [facility] Comment on above: Performed By: #### C BC ####[facility] Kacbypxuhd4764[address] [place], [place] [address]DrJeramie Lawrence Monocytes/100 WBC (Bld) 7.2 % Normal 1.7-12.0 [facility] Comment on above: Performed By: #### C BC ####[facility] Swtaobrkzs402[address] [place], [place] [address]DrJeramie Lawrence NEUT # 4.1 103/ul Normal 1.4-6.5 [facility] Comment on above: Performed By: #### C BC ####[facility] Kklxtwdfmj449[address] [place], [place] [address]DrJeramie Lawrence Neutrophils/100 WBC (Bld) 62.9 % Normal 43.0-75.0 [facility] Comment on above: Performed By: #### C BC ####[facility] Beeymqptqa0878[address] [place], [place] [address]DrJeramie Lawrence Platelet mean volume (Bld) [Entitic vol] 10.7 fL Normal 9.5-13.5 [facility] Comment on above: Performed By: #### C BC ####[facility] Jpmttzmkzp30[address] [place] [address]Dr. Flaco Lawrence PLT 180 103/ul Normal 150-450 [facility] Comment on above: Performed By: #### C BC ####[facility] Icxxkgexre6447 [place] [address]Dr. Flaco Lawrence RBC 4.72 106/ul Normal 4.70-6.10 [facility] Comment on above: Performed By: #### C BC ####[facility] Ceamksbkyo0084 [place] [address]Dr. Flaco Lawrence WBC 6.5 103/ul Normal 4.0-11.0 [facility] Comment on above: Performed By: #### C BC ####[facility] Xckzhfqktn1686 [place] [address]DrJeramie Lawrence PROF 14(COMP METB)on 023 Albumin [Mass/Vol] 2.8 g/dL Critically low 3.4-5.0 [facility] Comment on above: Performed By: #### C MP ####[facility] Lbxkixepdf9549[address] [place], [place] [address]DrJeramie Lawrence Albumin/Globulin [Mass ratio] 1.2 {ratio} Normal [facility] Comment on above: Performed By: #### C MP ####[facility] Dxmmvyldos1277 [place] [address]Dr. Flaco Lawrence ALP [Catalytic activity/Vol] 71 U/L Normal 46-116 [facility] Comment on above: Performed By: #### C MP ####[facility] Bmvxtffrrw5795 [place] [address]DrJeramie Lawrence ALT [Catalytic activity/Vol] 9 U/L Critically low 16-63 [facility] Comment on above: Performed By: #### C MP ####[facility] Aybfdqxkfc1624 [place] [address]DrJeramie Lawrence Anion gap [Moles/Vol] 11.5 mmol/L Normal Th [facility] Comment on above: Performed By: #### C MP ####[facility] Xnjylgzhpj6594 [place] [address]Dr. Flaco Lawrence AST [Catalytic activity/Vol] 13 U/L Critically low 15-37 [facility] Comment on above: Performed By: #### C MP ####[facility] Jkkjzfhyzx4109 [place] [address]Dr. Flaco Lawrence Bilirubin [Mass/Vol] 1.4 mg/dL Critically high 0.2-1.0 [facility] Comment on above: Performed By: #### C MP ####[facility] Atisseyihn9454 [place] [address]Dr. Flaco Lawrence Calcium [Mass/Vol] 7.9 mg/dL Critically low 8.5-10.1 [facility] Comment on above: Performed By: #### C MP ####[facility] Dbdlwsujvy419[address] [place], [place] [address]Dr. Flaco Lawrence Chloride [Moles/Vol] 110 mmol/L Critically high 98-107 [facility] Comment on above: Performed By: #### C MP ####[facility] Nulqahiqog9635[address] [place], [place] [address]Dr. Flaco Lawrence CO2 [Moles/Vol] 26.4 mmol/L Normal 21.0-32.0 [facility] Comment on above: Performed By: #### C MP ####[facility] Wflrapverh7539[address] [place], [place] [address]Dr. Flaco Lawrence Creatinine [Mass/Vol] 1.35 mg/dL Critically high 0.70-1.30 [facility] Comment on above: Performed By: #### C MP ####[facility] Wdxcwzeijf227[address] [place], [place] [address]Dr. Flaco Lawrence EGFR-AF BARBADIAN >60 Normal >=60 [facility] Comment on above: Performed By: #### C MP ####[facility] Fwoutwcntn9649[address] [place], [place] [address]Dr. Flaco Lawrence EGFR-NON AF BARBADIAN 52 mL/min/1.73m2 Critically low >=60 [facility] Comment on above: Performed By: #### C MP ####[facility] Tflplxphfo3061 [place] [address]Dr. Flaco Lawrence Globulin (S) [Mass/Vol] 2.4 g/dL Normal [facility] Comment on above: Performed By: #### C MP ####[facility] Mumismzotu7634 [place] [address]Dr. Flaco Lawrence Glucose [Mass/Vol] 90 mg/dL Normal 74-106 [facility] Comment on above: Performed By: #### C MP ####[facility] Kxzyjvkbrx3911 [place] [address]Dr. Flaco Lawrence Potassium [Moles/Vol] 2.8 mmol/L Critically low 3.5-5.1 [facility] Comment on above: Performed By: #### C MP ####[facility] Mfedxkqezn596348 [address] [place], [place] [address]Dr. Flaco Lawrence Protein [Mass/Vol] 5.2 g/dL Critically low 6.4-8.2 [facility] Comment on above: Performed By: #### C MP ####[facility] Rqukjoxmxe0089 [place] [address]Dr. Flaco Lawrence Sodium [Moles/Vol] 143 mmol/L Normal 136-145 [facility] Comment on above: Performed By: #### C MP ####[facility] Mhzfsoecey5104 [place] [address]Dr. Flaco Branden Urea nitrogen [Mass/Vol] 13.0 mg/dL Normal 7.0-18.0 [facility] Comment on above: Performed By: #### C MP ####[facility] Tjnldusjbb8768[address] [place], [place] [address]Dr. Flaco Branden Urea nitrogen/Creatinine [Mass ratio] 9.6 mg/mg Normal [facility] Comment on above: Performed By: #### C MP ####[facility] Ovdwzovkft55[address] [place] [address]Dr. Purviedith Lawrence AMMONIAon 02-09-2023 Ammonia (P) [Mass/Vol] ug/dL Critically low 11-32 [facility] Comment on above: Performed By: #### A MM ####[facility] Yaqqwgezqr7690 [place] [address]Dr. Flaco Lawrence CBC AUTO DIFFon 02-09-2023 BASO # 0.0 103/ul Normal 0.0-0.1 [facility] Comment on above: Performed By: #### C BC ####[facility] Amparecewn[address] [place] [address]Dr. Flaco Branden Basophils/100 WBC (Bld) 0.6 % Normal 0.2-2.0 [facility] Comment on above: Performed By: #### C BC ####[facility] Iqrxqrdezr8949[address] [place], [place] [address]Dr. Flaco Branden EO # 0.0 103/ul Normal 0.0-0.7 [facility] Comment on above: Performed By: #### C BC ####[facility] Cbqanrwjeu6715[address] [place], [place] [address]Dr. Purviedith Lawrence Eosinophils/100 WBC (Bld) 0.8 % Critically low 0.9-7.0 [facility] Comment on above: Performed By: #### C BC ####[facility] Ekmluaeavx474748 [address] [place], [place] [address]Dr. Flaco Lawrence Erythrocyte distribution width (RBC) [Ratio] 15.9 % Critically high 11.0-15.0 [facility] Comment on above: Performed By: #### C BC ####[facility] Jaxbfxndyf420848 [address] [place], [place] [address]Dr. Flaco Branden Hematocrit (Bld) [Volume fraction] 40.6 % Critically low 42.0-54.0 [facility] Comment on above: Performed By: #### C BC ####[facility] Iacjvylymc100[address] [place], [place] [address]Dr. Flaco Branden Hemoglobin (Bld) [Mass/Vol] 13.1 g/dL Critically low 14.0-18.0 [facility] Comment on above: Performed By: #### C BC ####[facility] Rgpjrfbgei90[address] [place], [place] [address]Dr. Flaco Lawrence IG # 0.01 10e3/ul Normal 0.00-0.03 [facility] Comment on above: Performed By: #### C BC ####[facility] Kflreicmff0872 [place] [address]Dr. Flaco Lawrence IG % 0.2 % Normal 0.0-0.5 [facility] Comment on above: Performed By: #### C BC ####[facility] Ddfsmafkbn8658 [place] [address]DrJeramie Lawrence LYMPH # 1.3 103/ul Normal 1.2-3.8 [facility] Comment on above: Performed By: #### C BC ####[facility] Hzhunwonez678248 [address] [place], [place] [address]DrJeramie Lawrence Lymphocytes/100 WBC (Bld) 26.3 % Normal 20.5-60.0 [facility] Comment on above: Performed By: #### C BC ####[facility] Qafozsxjah7713[address] [place], [place] [address]DrJeramie Lawrence MANUAL DIFF REQ NO Normal [facility] Comment on above: Performed By: #### C BC ####[facility] Deefxfjklr697[address] [place], [place] [address]DrJeramie Lawrence MCH (RBC) [Entitic mass] 27.5 pg Normal 25.9-34.0 [facility] Comment on above: Performed By: #### C BC ####[facility] Atebzlxcei980848 [address] [place], [place] [address]DrJeramie Lawrence MCHC (RBC) [Mass/Vol] 32.3 g/dL Normal 29.9-35.2 [facility] Comment on above: Performed By: #### C BC ####[facility] Tvyugmdzjq030648 [address] [place], [place] [address]DrJeramie Lawrence MCV (RBC) [Entitic vol] 85.3 fL Normal 80.0-94.0 [facility] Comment on above: Performed By: #### C BC ####[facility] Demtkwszdq315648 [address] [place], [place] [address]DrJeramie Lawrence MONO # 0.4 103/ul Normal 0.3-0.8 [facility] Comment on above: Performed By: #### C BC ####[facility] Fljicomalq9677 [place] [address]DrJeramie Lawrence Monocytes/100 WBC (Bld) 7.6 % Normal 1.7-12.0 [facility] Comment on above: Performed By: #### C BC ####[facility] Jftgqihaxl34364[address] [place], [place] [address]DrJeramie Lawrence NEUT # 3.2 103/ul Normal 1.4-6.5 [facility] Comment on above: Performed By: #### C BC ####[facility] Pvzxksgzoi5576 [place] [address]DrJeramie Flaco Lawrence Neutrophils/100 WBC (Bld) 64.5 % Normal 43.0-75.0 [facility] Comment on above: Performed By: #### C BC ####[facility] Skkvgpjzjk620748 [address] [place], [place] [address]DrJeramie Flaco Lawrence Platelet mean volume (Bld) [Entitic vol] 10.6 fL Normal 9.5-13.5 [facility] Comment on above: Performed By: #### C BC ####[facility] Lbpiraqzcu015148 [address] [place], [place] [address]Dr. Flaco Lawrence PLT 195 103/ul Normal 150-450 [facility] Comment on above: Performed By: #### C BC ####[facility] Qrsxdxpfsu747748 [address] [place], [place] [address]DrJeramie Flaco Lawrence RBC 4.76 106/ul Normal 4.70-6.10 [facility] Comment on above: Performed By: #### C BC ####[facility] Gdkaqmpueh145248 [address] [place], [place] [address]DrJeramie Flaco Lawrence WBC 5.0 103/ul Normal 4.0-11.0 [facility] Comment on above: Performed By: #### C BC ####[facility] Oehrpdycdp[address] [place], [place] [address]DrJeramie Lawrence PROF 14(COMP METB)on 023 Albumin [Mass/Vol] 3.0 g/dL Critically low 3.4-5.0 Th [facility] Comment on above: Performed By: #### C MP ####[facility] Vzldzqhuea2873 [place] [address]Dr. Flaco Lawrence Albumin/Globulin [Mass ratio] 1.2 {ratio} Normal [facility] Comment on above: Performed By: #### C MP ####[facility] Atqxxqkxmr411748 [address] [place], [place] [address]Dr. Flaco Lawrence ALP [Catalytic activity/Vol] 67 U/L Normal 46-116 [facility] Comment on above: Performed By: #### C MP ####[facility] Hybquoweqt682948 [address] [place], [place] [address]Dr. Flaco Lawrence ALT [Catalytic activity/Vol] 7 U/L Critically low 16-63 [facility] Comment on above: Performed By: #### C MP ####[facility] Fzupetrebp560948 [address] [place], [place] [address]Dr. Flaco Lawrence Anion gap [Moles/Vol] 12.8 mmol/L Normal Th [facility] Comment on above: Performed By: #### C MP ####[facility] Gptuujxmxf757[address] [place], [place] [address]Dr. Flaco Lawrence AST [Catalytic activity/Vol] 16 U/L Normal 15-37 [facility] Comment on above: Performed By: #### C MP ####[facility] Psgejnhtcb031148 [address] [place], [place] [address]Dr. Flaco Lawrence Bilirubin [Mass/Vol] 2.1 mg/dL Critically high 0.2-1.0 [facility] Comment on above: Performed By: #### C MP ####[facility] Dzcgfalenn436748 [address] [place], [place] [address]Dr. Flaco Lawrence Calcium [Mass/Vol] 8.1 mg/dL Critically low 8.5-10.1 Th [facility] Comment on above: Performed By: #### C MP ####[facility] Jkozlplshn000348 [address] [place], [place] [address]Dr. Flaco Lawrence Chloride [Moles/Vol] 110 mmol/L Critically high 98-107 [facility] Comment on above: Performed By: #### C MP ####[facility] Gripvcyedg0859 [place] [address]Dr. Purviedith Branden CO2 [Moles/Vol] 26.0 mmol/L Normal 21.0-32.0 [facility] Comment on above: Performed By: #### C MP ####[facility] Ptxitugajg1095[address] [place], [place] [address]Dr. Flaco Lawrence Creatinine [Mass/Vol] 1.43 mg/dL Critically high 0.70-1.30 [facility] Comment on above: Performed By: #### C MP ####[facility] Lraxhjrvjg947948 [address] [place], [place] [address]Dr. Flaco Lawrence EGFR-AF BARBADIAN 59 mL/min/1.73m2 Critically low >=60 [facility] Comment on above: Performed By: #### C MP ####[facility] Olrqpdadjt991848 [address] [place], [place] [address]Dr. Flaco Lawrence EGFR-NON AF BARBADIAN 49 mL/min/1.73m2 Critically low >=60 [facility] Comment on above: Performed By: #### C MP ####[facility] Bizcxkbdmi933948 [address] [place], [place] [address]Dr. Flaco Lawrence Globulin (S) [Mass/Vol] 2.4 g/dL Normal [facility] Comment on above: Performed By: #### C MP ####[facility] Swyxedkgxb117548 [address] [place], [place] [address]Dr. Flaco Lawrence Glucose [Mass/Vol] 77 mg/dL Normal 74-106 [facility] Comment on above: Performed By: #### C MP ####[facility] Lhykbmogak5230[address] [place], [place] [address]Dr. Flaco Lawrence Potassium [Moles/Vol] 2.8 mmol/L Critically low 3.5-5.1 [facility] Comment on above: Performed By: #### C MP ####[facility] Kcgrjxdqgu307148 [address] [place], [place] [address]Dr. Flaco Lawrence Protein [Mass/Vol] 5.4 g/dL Critically low 6.4-8.2 Th [facility] Comment on above: Performed By: #### C MP ####[facility] Avojobakwh5107 [place] [address]Dr. Flaco Lawrence Sodium [Moles/Vol] 145 mmol/L Normal 136-145 [facility] Comment on above: Performed By: #### C MP ####[facility] Icezhjlmyv196248 [address] [place], [place] [address]Dr. Flaco Lawrence Urea nitrogen [Mass/Vol] 8.0 mg/dL Normal 7.0-18.0 [facility] Comment on above: Performed By: #### C MP ####[facility] Duksucndql488648 [address] [place], [place] [address]Dr. Flaco Lawrence Urea nitrogen/Creatinine [Mass ratio] 5.6 mg/mg Normal [facility] Comment on above: Performed By: #### C MP ####[facility] Dcovstwzid1564[address] [place], [place] [address]Dr. Flaco Lawrence T4on 02-09-2023 T4 [Mass/Vol] 7.10 ug/dL Normal 4.50-12.10 [facility] Comment on above: Performed By: #### T SH, T4 ####[facility] Xdkulqrhsj6958[address] [place], [place] [address]Dr. Flaco Lawrence TSHon 02-09-2023 TSH 0.633 uIU/mL Normal 0.358-3.740 [facility] Comment on above: Performed By: #### T SH, T4 ####[facility] Hmtdwzlkmr6098[address] [place], [place] [address]Dr. Flaco Lawrence US SINGLE QUAD RT UPPERon US SINGLE QUAD RT UPPER Normal [facility] AMYLASEon 02-08-2023 Amylase [Catalytic activity/Vol] 41 U/L Normal 25-115 [facility] Comment on above: Performed By: #### A MY, LIPA, CMP ####[facility] Wpiebmwbxw8358[address] [place], [place] [address]Dr. Flcao Lawrence CBC AUTO DIFFon 02-08-2023 BASO # 0.0 103/ul Normal 0.0-0.1 [facility] Comment on above: Performed By: #### C BC ####[facility] Wlodntvudl3556 [place] [address]Dr. Flaco Branden Basophils/100 WBC (Bld) 0.7 % Normal 0.2-2.0 [facility] Comment on above: Performed By: #### C BC ####[facility] Vmignopyic0716[address] [place], [place] [address]Dr. Purviedith Branden EO # 0.0 103/ul Normal 0.0-0.7 [facility] Comment on above: Performed By: #### C BC ####[facility] Nfigehdswq591148 [address] [place], [place] [address]Dr. Flaco Lawrence Eosinophils/100 WBC (Bld) 0.5 % Critically low 0.9-7.0 [facility] Comment on above: Performed By: #### C BC ####[facility] Gdnxvcjchx1769[address] [place], [place] [address]Dr. Flaco Lawrence Erythrocyte distribution width (RBC) [Ratio] 15.9 % Critically high 11.0-15.0 [facility] Comment on above: Performed By: #### C BC ####[facility] Hcbwqsnsbk2485[address] [place], [place] [address]Dr. Flaco Lawrence Hematocrit (Bld) [Volume fraction] 46.1 % Normal 42.0-54.0 [facility] Comment on above: Performed By: #### C BC ####[facility] Bpcozlnjzn8901[address] [place], [place] [address]Dr. Flaco Lawrence Hemoglobin (Bld) [Mass/Vol] 15.2 g/dL Normal 14.0-18.0 [facility] Comment on above: Performed By: #### C BC ####[facility] Yptvcshtmm9860[address] [place], [place] [address]Dr. Flaco Lawrence IG # 0.02 10e3/ul Normal 0.00-0.03 [facility] Comment on above: Performed By: #### C BC ####[facility] Vepyrobtdu5275[address] [place], [place] [address]Dr. Flcao Lawrence IG % 0.3 % Normal 0.0-0.5 [facility] Comment on above: Performed By: #### C BC ####[facility] Lyuudgsbho1964 [place] [address]DrJeramie Lawrence LYMPH # 1.5 103/ul Normal 1.2-3.8 [facility] Comment on above: Performed By: #### C BC ####[facility] Jduqnqbmkk5172 [place] [address]DrJeramie Lawrence Lymphocytes/100 WBC (Bld) 26.1 % Normal 20.5-60.0 [facility] Comment on above: Performed By: #### C BC ####[facility] Tsfakmsetg859[address] [place], [place] [address]DrJeramie Lawrence MANUAL DIFF REQ NO Normal [facility] Comment on above: Performed By: #### C BC ####[facility] Lsnwqdnapu623[address] [place], [place] [address]Dr. Flaco Lawrence MCH (RBC) [Entitic mass] 27.9 pg Normal 25.9-34.0 [facility] Comment on above: Performed By: #### C BC ####[facility] Ouqrvawlyq1520[address] [place], [place] [address]DrJeramie Purviedith Lawrence MCHC (RBC) [Mass/Vol] 33.0 g/dL Normal 29.9-35.2 [facility] Comment on above: Performed By: #### C BC ####[facility] Tcpwqlsalz878[address] [place], [place] [address]DrJeramie Lawrence MCV (RBC) [Entitic vol] 84.6 fL Normal 80.0-94.0 [facility] Comment on above: Performed By: #### C BC ####[facility] Botiuczyce237348 [address] [place], [place] [address]DrJeramie Lawrence MONO # 0.6 103/ul Normal 0.3-0.8 [facility] Comment on above: Performed By: #### C BC ####[facility] Ovnppuggsz9518[address] [place], [place] [address]DrJeramie Lawrence Monocytes/100 WBC (Bld) 9.6 % Normal 1.7-12.0 [facility] Comment on above: Performed By: #### C BC ####[facility] Ddjzlyzvgs1311[address] [place], [place] [address]Dr. Flaco Lawrence NEUT # 3.7 103/ul Normal 1.4-6.5 [facility] Comment on above: Performed By: #### C BC ####[facility] Zvtvqylcfk2637[address] [place], [place] [address]Dr. Flaco Lawrence Neutrophils/100 WBC (Bld) 62.8 % Normal 43.0-75.0 [facility] Comment on above: Performed By: #### C BC ####[facility] Uvlruhqntv816248 [address] [place], [place] [address]Dr. Flaco Lawrence Platelet mean volume (Bld) [Entitic vol] 10.6 fL Normal 9.5-13.5 [facility] Comment on above: Performed By: #### C BC ####[facility] Pqnswwcmhw9924[address] [place], [place] [address]Dr. Flaco Lawrence PLT 255 103/ul Normal 150-450 [facility] Comment on above: Performed By: #### C BC ####[facility] Qdpjtjzfxd6633[address] [place], [place] [address]Dr. Flaco Lawrence RBC 5.45 106/ul Normal 4.70-6.10 [facility] Comment on above: Performed By: #### C BC ####[facility] Ijbzvdxusp079[address] [place], [place] [address]Dr. Flaco Lawrence WBC 5.8 103/ul Normal 4.0-11.0 [facility] Comment on above: Performed By: #### C BC ####[facility] Mtykkmlrcz220[address] [place], [place] [address]Dr. Flaco Lawrence CULTURE BLOODon 02-08-2023 Microscopic examination of blood, culture Culture Observations: NO GROWTH AT 36-48 HOURS. FINAL TO FOLLOW. Normal [facility] Comment on above: Performed By: #### B LDCX1 ####[facility] Jqwyxjuxsq8401[address] [place], [place] [address]Dr. Flaco Branden ER URINE PROFILEon 3 Bilirubin Ql (U) Negative Normal NEGATIVE [facility] Comment on above: Performed By: #### E RUR ####[facility] Vukblimvxc1748[address] [place], [place] [address]Dr. Flaco Lawrence Clarity (U) CLEAR Normal CLEAR [facility] Comment on above: Performed By: #### E RUR ####[facility] Fipkgimuwt2089[address] [place], [place] [address]Dr. Purviedith Lawrence Color (U) YELLOW Normal YELLOW [facility] Comment on above: Performed By: #### E RUR ####[facility] Wcmocsssxf6320[address] [place], [place] [address]Dr. Flaco Lawrence ERUAHD A micrscopic examination will be performed if indicated. Normal [facility] Comment on above: Performed By: #### E RUR ####[facility] Ixlhbausop087[address] [place], [place] [address]Dr. Flaco Lawrence Glucose Ql (U) Negative Normal NEGATIVE [facility] Comment on above: Performed By: #### E RUR ####[facility] Dppthvxoqw2500[address] [place], [place] [address]Dr. Flaco Lawrence Hemoglobin Ql (U) Negative Normal NEGATIVE [facility] Comment on above: Performed By: #### E RUR ####[facility] Mtxwhdkpdl9[address] [place], [place] [address]Dr. Flaco Lawrence Ketones Ql (U) 15 mg/dl Abnormal NEGATIVE [facility] Comment on above: Performed By: #### E RUR ####[facility] Tpzdpmcmpj35[address] [place], [place] [address]Dr. Flaco Lawrence LEUKOCYTES Negative Normal NEGATIVE [facility] Comment on above: Performed By: #### E RUR ####[facility] Dhkoiuifpl050[address] [place], [place] [address]Dr. Flaco Lawrence Nitrite Ql (U) Negative Normal NEGATIVE [facility] Comment on above: Performed By: #### E RUR ####[facility] Kwbxyoplvm23[address] [place], [place] [address]Dr. Flaco Lawrence pH (U) 6.5 [pH] Normal 5-9 [facility] Comment on above: Performed By: #### E RUR ####[facility] Jdmgqskaau[address] [place] [address]Dr. Flaco Lawrence SPEC GRAVITY 1.010 Normal 1.005-<=1.02 5 [facility] Comment on above: Performed By: #### E RUR ####[facility] Zgrkwpphco72[address] [place] [address]Dr. Flaco Lawrence UA PROTEIN Negative Normal NEGATIVE/ TRACE [facility] Comment on above: Performed By: #### E RUR ####[facility] Cavoyjxewq6253 [place] [address]Dr. Flaco Lawrence UR MICRO IND NOT INDICATED Normal [facility] Comment on above: Performed By: #### E RUR ####[facility] Uxevqamfvy[address] [place] [address]Dr. Flaco Lawrence Urobilinogen Qn (U) 2.0 {Tuan'U}/dL Abnormal 0.2 - 1. 0 [facility] Comment on above: Performed By: #### E RUR ####[facility] Hzhsbjiqby8479 [place] [address]Dr. Flaco Lawrence LIPASEon 02-08-2023 Lipase [Catalytic activity/Vol] 280.0 U/L Normal 73.0-393.0 [facility] Comment on above: Performed By: #### A RICCARDO LIPA, CMP ####[facility] Wupmbwfqtc[address] [place] [address]Dr. Flaco Lawrence PROF 14(COMP METB)on 023 Albumin [Mass/Vol] 3.5 g/dL Normal 3.4-5.0 [facility] Comment on above: Performed By: #### A RICCARDO LIPA, CMP ####[facility] Gphqbdidxr70[address] [place] [address]Dr. Flaco Lawrence Albumin/Globulin [Mass ratio] 1.2 {ratio} Normal [facility] Comment on above: Performed By: #### A RICCARDO LIPA, CMP ####[facility] Iedzhkkadk7201 [place] [address]Dr. Flaco Lawrence ALP [Catalytic activity/Vol] 81 U/L Normal 46-116 [facility] Comment on above: Performed By: #### A MY LIPA, CMP ####[facility] [address]tv[address]xb[address] [place] [address]Dr. Flaco Lawrence ALT [Catalytic activity/Vol] 7 U/L Critically low 16-63 [facility] Comment on above: Performed By: #### A MY, LIPA, CMP ####[facility] Nehonzzxut[address] [place] [address]Dr. Flaco Lawrence Anion gap [Moles/Vol] 10.3 mmol/L Normal [facility] Comment on above: Performed By: #### A MY, LIPA, CMP ####[facility] Muwncltfcy[address] [place], [place] [address]Dr. Flaco Lawrence AST [Catalytic activity/Vol] 20 U/L Normal 15-37 [facility] Comment on above: Performed By: #### A MY, LIPA, CMP ####[facility] Jexakhppye[address] [place] [address]Dr. Flaco Lawrence Bilirubin [Mass/Vol] 3.1 mg/dL Critically high 0.2-1.0 [facility] Comment on above: Performed By: #### A MY, LIPA, CMP ####[facility] Ptivxtgtxu[address] [place], [place] [address]Dr. Flaco Lawrence Calcium [Mass/Vol] 8.7 mg/dL Normal 8.5-10.1 [facility] Comment on above: Performed By: #### A MY, LIPA, CMP ####[facility] Hijtzkvukk[address] [place] [address]Dr. Flaco Lawrence Chloride [Moles/Vol] 103 mmol/L Normal 98-107 [facility] Comment on above: Performed By: #### A MY, LIPA, CMP ####[facility] Vcfzzleoui[address] [place] [address]Dr. Flaco Lawrence CO2 [Moles/Vol] 30.5 mmol/L Normal 21.0-32.0 [facility] Comment on above: Performed By: #### A RICCARDO LIPA, CMP ####[facility] Uwfybsfeku[address] [place] [address]Dr. Flaco Lawrence Creatinine [Mass/Vol] 1.81 mg/dL Critically high 0.70-1.30 [facility] Comment on above: Performed By: #### A RICCARDO LIPA, CMP ####[facility] Pckafihaiy[address] [place], [place] [address]Dr. Flaco Lawrence EGFR-AF BARBADIAN 45 mL/min/1.73m2 Critically low >=60 [facility] Comment on above: Performed By: #### A RICCARDO LIPA, CMP ####[facility] Tpmatvqtzw[address] [place], [place] [address]Dr. Flaco Lawrence EGFR-NON AF BARBADIAN 37 mL/min/1.73m2 Critically low >=60 [facility] Comment on above: Performed By: #### A RICCARDO LIPA, CMP ####[facility] Ojaofzpeua[address] [place], [place] [address]Dr. Flaco Lawrence Globulin (S) [Mass/Vol] 3.0 g/dL Normal [facility] Comment on above: Performed By: #### A RICCARDO LIPA, CMP ####[facility] Ndlapqyhey[address] [place], [place] [address]Dr. Flaco Lawrence Glucose [Mass/Vol] 94 mg/dL Normal 74-106 [facility] Comment on above: Performed By: #### A RICCARDO LIPA, CMP ####[facility] Atjqapkzkl82[address] [place], [place] [address]Dr. Flaco Lawrence Potassium [Moles/Vol] 2.5 mmol/L Critically low 3.5-5.1 [facility] Comment on above: Performed By: #### A MY LIPA, CMP ####[facility] Tbtfsidtcq[address] [place], [place] [address]Dr. Flaco Lawrence Protein [Mass/Vol] 6.5 g/dL Normal 6.4-8.2 [facility] Comment on above: Performed By: #### A MY LIPA, CMP ####[facility] Tnvsfhpbmn5[address] [place] [address]Dr. Flaco Lawrence Sodium [Moles/Vol] 133 mmol/L Critically low 136-145 [facility] Comment on above: Performed By: #### A DEMOND GU, CMP ####[facility] Ecbvpaldsi[address] [place] [address]Dr. Flaco Lawrence Urea nitrogen [Mass/Vol] 10.0 mg/dL Normal 7.0-18.0 [facility] Comment on above: Performed By: #### A DEMOND GU, CMP ####[facility] Eipvmjnbea102[address] [place], [place] [address]Dr. Flaco Lawrence Urea nitrogen/Creatinine [Mass ratio] 5.5 mg/mg Normal [facility] Comment on above: Performed By: #### A DEMOND GU, CMP ####[facility] Gmhvkoptod04[address] [place], [place] [address]Dr. Flaco Lawrence PROF CHEM 8 (BAS METB)on Anion gap [Moles/Vol] 16.8 mmol/L Normal [facility] Comment on above: Performed By: #### B MP ####[facility] Mxlyxxplvn[address] [place], [place] [address]Dr. Flaco Lawrence Calcium [Mass/Vol] 8.5 mg/dL Normal 8.5-10.1 [facility] Comment on above: Performed By: #### B MP ####[facility] Ruxtflbmob[address] [place], [place] [address]Dr. Flaco Lawrence Chloride [Moles/Vol] 107 mmol/L Normal 98-107 [facility] Comment on above: Performed By: #### B MP ####[facility] Bdkkijhjos[address] [place], [place] [address]Dr. Flaco Lawrence CO2 [Moles/Vol] 25.0 mmol/L Normal 21.0-32.0 [facility] Comment on above: Performed By: #### B MP ####[facility] Fjmddqpgdp4034[address] [place], [place] [address]Dr. Flaco Lawrence Creatinine [Mass/Vol] 1.62 mg/dL Critically high 0.70-1.30 [facility] Comment on above: Performed By: #### B MP ####[facility] Awqkhlwrwd[address] [place] [address]Dr. Flaco Lawrence EGFR-AF BARBADIAN 51 mL/min/1.73m2 Critically low >=60 [facility] Comment on above: Performed By: #### B MP ####[facility] Xcgjrqkwcl2460 [place] [address]Dr. Flaco Lawrence EGFR-NON AF BARBADIAN 42 mL/min/1.73m2 Critically low >=60 [facility] Comment on above: Performed By: #### B MP ####[facility] Rkqsndomym227[address] [place], [place] [address]Dr. Flaco Lawrence Glucose [Mass/Vol] 73 mg/dL Critically low 74-106 [facility] Comment on above: Performed By: #### B MP ####[facility] Khzdovnfse80[address] [place], [place] [address]Dr. Flaco Lawrence Potassium [Moles/Vol] 3.8 mmol/L Normal 3.5-5.1 [facility] Comment on above: Performed By: #### B MP ####[facility] Owckuvenft45[address] [place], [place] [address]Dr. Flaco Lawrence Sodium [Moles/Vol] 145 mmol/L Normal 136-145 [facility] Comment on above: Performed By: #### B MP ####[facility] Emhhdvfpaf[address] [place], [place] [address]Dr. Flaco Lawrence Urea nitrogen [Mass/Vol] 10.0 mg/dL Normal 7.0-18.0 [facility] Comment on above: Performed By: #### B MP ####[facility] Nbesrgqoev70[address] [place], [place] [address]Dr. Flaco Lawrence Urea nitrogen/Creatinine [Mass ratio] 6.2 mg/mg Normal [facility] Comment on above: Performed By: #### B MP ####[facility] Fgdahnsfoq8135[address] [place], [place] [address]Dr. Flaco Lawrence XR CHEST 1 Von 02-08-2023 XR CHEST 1 V Normal [facility] XR FOOT RT MIN 3 VIEWSon XR FOOT RT MIN 3 VIEWS Normal [facility] CBC AUTO DIFFon 11-18-2022 BASO # 0.1 103/ul Normal 0.0-0.1 [facility] Comment on above: Performed By: #### C BC ####[facility] Sc[address]swouxh[address] [place] [address]Dr. Flaco Lawrence Basophils/100 WBC (Bld) 0.6 % Normal 0.2-2.0 [facility] Comment on above: Performed By: #### C BC ####[facility] Tqhngltmjh8[address] [place], [place] [address]Dr. Flaco Lawrence EO # 0.2 103/ul Normal 0.0-0.7 [facility] Comment on above: Performed By: #### C BC ####[facility] Lrzvdpkgjs5925[address] [place], [place] [address]Dr. Flaco Lawrence Eosinophils/100 WBC (Bld) 1.5 % Normal 0.9-7.0 [facility] Comment on above: Performed By: #### C BC ####[facility] Zvgtazksnn489[address] [place], [place] [address]Dr. Flaco Lawrence Erythrocyte distribution width (RBC) [Ratio] 16.2 % Critically high 11.0-15.0 [facility] Comment on above: Performed By: #### C BC ####[facility] Ywgtgukrda9[address] [place], [place] [address]Dr. Flaoc Lawrence Hematocrit (Bld) [Volume fraction] 35.1 % Critically low 42.0-54.0 [facility] Comment on above: Performed By: #### C BC ####[facility] Xadqwiuewp8410[address] [place], [place] [address]Dr. Flaco Lawrence Hemoglobin (Bld) [Mass/Vol] 11.5 g/dL Critically low 14.0-18.0 [facility] Comment on above: Performed By: #### C BC ####[facility] Pmupktycwc064[address] [place], [place] [address]Dr. Flaco Lawrence IG # 0.05 10e3/ul Critically high 0.00-0.03 [facility] Comment on above: Performed By: #### C BC ####[facility] Mooswrdlge[address] [place] [address]DrJeramie Flaco Branden IG % 0.5 % Normal 0.0-0.5 [facility] Comment on above: Performed By: #### C BC ####[facility] Dotajjhhdr[address]64 [place] [address]DrJeramie Lawrence LYMPH # 2.1 103/ul Normal 1.2-3.8 [facility] Comment on above: Performed By: #### C BC ####[facility] Fnqwutynpf9368 [place] [address]DrJeramie Lawrence Lymphocytes/100 WBC (Bld) 20.5 % Normal 20.5-60.0 [facility] Comment on above: Performed By: #### C BC ####[facility] Chfuvutgrg6[address] [place] [address]DrJeramie Purviedith Lawrence MANUAL DIFF REQ NO Normal [facility] Comment on above: Performed By: #### C BC ####[facility] Tppwpvsltj4051 [place] [address]DrJeramie Flaco Branden MCH (RBC) [Entitic mass] 28.1 pg Normal 25.9-34.0 [facility] Comment on above: Performed By: #### C BC ####[facility] Cqjylygnse[address] [place], [place] [address]DrJeramie Flaco Branden MCHC (RBC) [Mass/Vol] 32.8 g/dL Normal 29.9-35.2 [facility] Comment on above: Performed By: #### C BC ####[facility] Ukceccvnoq4353 [place] [address]DrJeramie Lawrence MCV (RBC) [Entitic vol] 85.8 fL Normal 80.0-94.0 [facility] Comment on above: Performed By: #### C BC ####[facility] Nzehuqzvjo299[address] [place] [address]DrJeramie Lawrence MONO # 1.2 103/ul Critically high 0.3-0.8 [facility] Comment on above: Performed By: #### C BC ####[facility] Dnthrbskvs4804 [place] [address]Dr. Flaco Lawrence Monocytes/100 WBC (Bld) 11.5 % Normal 1.7-12.0 [facility] Comment on above: Performed By: #### C BC ####[facility] Okcifsmgge1388 [place] [address]Dr. Flaco Lawrence NEUT # 6.5 103/ul Normal 1.4-6.5 [facility] Comment on above: Performed By: #### C BC ####[facility] Odokgliomv8171 [place] [address]Dr. Flaco Lawrnece Neutrophils/100 WBC (Bld) 65.4 % Normal 43.0-75.0 [facility] Comment on above: Performed By: #### C BC ####[facility] Ntphngzrkn7705 [place] [address]Dr. Flaco Lawrence Platelet mean volume (Bld) [Entitic vol] 10.3 fL Normal 9.5-13.5 [facility] Comment on above: Performed By: #### C BC ####[facility] Vqqpkbvclq[address] [place], [place] [address]Dr. Flaco Lawrence PLT 399 103/ul Normal 150-450 [facility] Comment on above: Performed By: #### C BC ####[facility] Nwlgrpeahb2446 [place] [address]Dr. Flaco Lawrence RBC 4.09 106/ul Critically low 4.70-6.10 [facility] Comment on above: Performed By: #### C BC ####[facility] Ogqtswewcj3886 [place] [address]Dr. Flaco Lawrence WBC 10.0 103/ul Normal 4.0-11.0 [facility] Comment on above: Performed By: #### C BC ####[facility] Snskozgmts9241 [place] [address]DrJeramie Lawrence PROF 14(COMP METB)on 023 Albumin [Mass/Vol] 2.4 g/dL Critically low 3.4-5.0 [facility] Comment on above: Performed By: #### C MP ####[facility] Eyyffcrzvc9218 [place] [address]Dr. Flaco Branden Albumin/Globulin [Mass ratio] 0.6 {ratio} Normal [facility] Comment on above: Performed By: #### C MP ####[facility] Omciudwpsx8584 [place] [address]Dr. Flaco Lawrence ALP [Catalytic activity/Vol] 130 U/L Critically high 46-116 [facility] Comment on above: Performed By: #### C MP ####[facility] Kdpgunznsx1213 [place] [address]Dr. Flaco Lawrence ALT [Catalytic activity/Vol] 12 U/L Critically low 16-63 [facility] Comment on above: Performed By: #### C MP ####[facility] Kmmjmazmjl[address] [place], [place] [address]Dr. Flaco Lawrence Anion gap [Moles/Vol] 13.6 mmol/L Normal [facility] Comment on above: Performed By: #### C MP ####[facility] Cqqljghydj634[address] [place], [place] [address]Dr. Purviedith Lawrence AST [Catalytic activity/Vol] 27 U/L Normal 15-37 [facility] Comment on above: Performed By: #### C MP ####[facility] Rbncghohlf4[address] [place], [place] [address]Dr. Flaco Lawrence Bilirubin [Mass/Vol] 0.5 mg/dL Normal 0.2-1.0 [facility] Comment on above: Performed By: #### C MP ####[facility] Mpzzokffoq3651 [place] [address]Dr. Flaco Lawrence Calcium [Mass/Vol] 9.2 mg/dL Normal 8.5-10.1 [facility] Comment on above: Performed By: #### C MP ####[facility] Wjzayupdrk5734 [place] [address]Dr. Flaco Lawrence Chloride [Moles/Vol] 98 mmol/L Normal 98-107 [facility] Comment on above: Performed By: #### C MP ####[facility] Viyvjyjair85[address] [place] [phone]. Flaco Lawrence CO2 [Moles/Vol] 24.0 mmol/L Normal 21.0-32.0 [facility] Comment on above: Performed By: #### C MP ####[facility] Ucdkcucjby1155 [place] [phone]. Flaco Branden Creatinine [Mass/Vol] 1.67 mg/dL Critically high 0.70-1.30 [facility] Comment on above: Performed By: #### C MP ####[facility] Ygsgkbdxqu2164 [place] [phone]. Flaco Branden EGFR-AF BARBADIAN 49 mL/min/1.73m2 Critically low >=60 [facility] Comment on above: Performed By: #### C MP ####[facility] Grbojqhjna2568 [place] [address]Dr. Flaco Branden EGFR-NON AF BARBADIAN 41 mL/min/1.73m2 Critically low >=60 [facility] Comment on above: Performed By: #### C MP ####[facility] Phmxxthoqc0564 [place] [address]Dr. Flaco Lawrence Globulin (S) [Mass/Vol] 4.3 g/dL Normal [facility] Comment on above: Performed By: #### C MP ####[facility] Debvudqvdx5526 [place] [phone]. Flaco Branden Glucose [Mass/Vol] 103 mg/dL Normal 74-106 [facility] Comment on above: Performed By: #### C MP ####[facility] Oqkudvqljh2976 [place] [phone]. Flaco Branden Potassium [Moles/Vol] 3.6 mmol/L Normal 3.5-5.1 [facility] Comment on above: Performed By: #### C MP ####[facility] Olkqlxgwew9098 [place] [phone]. Flaco Branden Protein [Mass/Vol] 6.7 g/dL Normal 6.4-8.2 [facility] Comment on above: Performed By: #### C MP ####[facility] Dstggdlaxu9637[address] [place], [place] [address]Dr. Flaco Branden Sodium [Moles/Vol] 132 mmol/L Critically low 136-145 [facility] Comment on above: Performed By: #### C MP ####[facility] Sshsqxrwgg057[address] [place], [place] [address]Dr. Flaco Branden Urea nitrogen [Mass/Vol] 26.0 mg/dL Critically high 7.0-18.0 [facility] Comment on above: Performed By: #### C MP ####[facility] Rsaeffreju[address] [place], [place] [address]Dr. Flaco Lawrence Urea nitrogen/Creatinine [Mass ratio] 15.6 mg/mg Normal [facility] Comment on above: Performed By: #### C MP ####[facility] Nijspfaxfh6[address] [place], [place] [address]Dr. Flaco Branden CBC AUTO DIFFon 11-17-2022 BASO # 0.0 103/ul Normal 0.0-0.1 [facility] Comment on above: Performed By: #### C BC ####[facility] Kgnrctoiix453[address] [place], [place] [address]Dr. Purviedith Lawrence Basophils/100 WBC (Bld) 0.4 % Normal 0.2-2.0 [facility] Comment on above: Performed By: #### C BC ####[facility] Tdujobrxrr8125[address] [place], [place] [address]Dr. Flaco Branden EO # 0.0 103/ul Normal 0.0-0.7 [facility] Comment on above: Performed By: #### C BC ####[facility] Mbpzvjsakp166[address] [place], [place] [address]Dr. Flaco Lawrence Eosinophils/100 WBC (Bld) 0.4 % Critically low 0.9-7.0 [facility] Comment on above: Performed By: #### C BC ####[facility] Mcqrlkhvot049[address] [place], [place] [address]Dr. Flaco Lawrence Erythrocyte distribution width (RBC) [Ratio] 16.0 % Critically high 11.0-15.0 [facility] Comment on above: Performed By: #### C BC ####[facility] Lxrtthiqop6020 [place] [address]Dr. Flaco Lawrence Hematocrit (Bld) [Volume fraction] 36.4 % Critically low 42.0-54.0 [facility] Comment on above: Performed By: #### C BC ####[facility] Vphqnqhive327[address] [place], [place] [address]Dr. Purviedith Lawrence Hemoglobin (Bld) [Mass/Vol] 12.0 g/dL Critically low 14.0-18.0 [facility] Comment on above: Performed By: #### C BC ####[facility] Werrgiwjsi857[address] [place], [place] [address]Dr. Flaco Lawrence IG # 0.03 10e3/ul Normal 0.00-0.03 [facility] Comment on above: Performed By: #### C BC ####[facility] Kihnrgnqvc7018[address] [place], [place] [address]Dr. Purviedith Lawrence IG % 0.3 % Normal 0.0-0.5 [facility] Comment on above: Performed By: #### C BC ####[facility] Dkpakaqwxl5888[address] [place], [place] [address]DrJeramie Flaco Branden LYMPH # 1.6 103/ul Normal 1.2-3.8 [facility] Comment on above: Performed By: #### C BC ####[facility] Hnkxgzxcaf5645[address] [place], [place] [address]DrJeramie Purviedith Lawrence Lymphocytes/100 WBC (Bld) 14.7 % Critically low 20.5-60.0 [facility] Comment on above: Performed By: #### C BC ####[facility] Mfmlwjqxur101[address] [place], [place] [address]DrJeramie Lawrence MANUAL DIFF REQ NO Normal [facility] Comment on above: Performed By: #### C BC ####[facility] Saceomhpab[address] [place], [place] [address]DrJeramie Lawrence MCH (RBC) [Entitic mass] 28.2 pg Normal 25.9-34.0 [facility] Comment on above: Performed By: #### C BC ####[facility] Cfxfdwjplr0721 [place] [address]Dr. Flaco Lawrence MCHC (RBC) [Mass/Vol] 33.0 g/dL Normal 29.9-35.2 [facility] Comment on above: Performed By: #### C BC ####[facility] Hatrwnkybh2093 [place] [address]Dr. Flaco Lawrence MCV (RBC) [Entitic vol] 85.4 fL Normal 80.0-94.0 [facility] Comment on above: Performed By: #### C BC ####[facility] Etuwsdczsd[address] [place], [place] [address]DrJeramie Lawrence MONO # 1.4 103/ul Critically high 0.3-0.8 [facility] Comment on above: Performed By: #### C BC ####[facility] Dbtszgirrg426[address] [place], [place] [address]Dr. Flaco Lawrence Monocytes/100 WBC (Bld) 12.6 % Critically high 1.7-12.0 [facility] Comment on above: Performed By: #### C BC ####[facility] Yedtqafuwe[address] [place], [place] [address]Dr. Flaco Lawrence NEUT # 7.7 103/ul Critically high 1.4-6.5 [facility] Comment on above: Performed By: #### C BC ####[facility] Treiaecjsl04[address] [place], [place] [address]Dr. Flaco Lawrence Neutrophils/100 WBC (Bld) 71.6 % Normal 43.0-75.0 [facility] Comment on above: Performed By: #### C BC ####[facility] Wgngkfmsab[address] [place], [place] [address]DrJeramie Lawrence Platelet mean volume (Bld) [Entitic vol] 9.5 fL Normal 9.5-13.5 [facility] Comment on above: Performed By: #### C BC ####[facility] [address]zq[address] [place], [place] [address]Dr. Flaco Lawrence PLT 462 103/ul Critically high 150-450 [facility] Comment on above: Performed By: #### C BC ####[facility] Easpjabvyu8706 [place] [address]Dr. Flaco Lawrence RBC 4.26 106/ul Critically low 4.70-6.10 [facility] Comment on above: Performed By: #### C BC ####[facility] Oxsfyhwfgo4363 [place] [address]Dr. Flaco Lawrence WBC 10.8 103/ul Normal 4.0-11.0 [facility] Comment on above: Performed By: #### C BC ####[facility] Xqwbsrkrlj9958 [place] [address]Dr. Flaco Lawrence MRI CSPINE WO CONon 11-17-19 23 MRI CSPINE WO CON Normal [facility] PROF 14(COMP METB)on 023 Albumin [Mass/Vol] 2.4 g/dL Critically low 3.4-5.0 [facility] Comment on above: Performed By: #### C MP ####[facility] Eubctmgvey8717 [place] [address]Dr. Flaco Lawrence Albumin/Globulin [Mass ratio] 0.5 {ratio} Normal [facility] Comment on above: Performed By: #### C MP ####[facility] Dxirsrrmfa7035 [place] [address]Dr. Flaco Lawrence ALP [Catalytic activity/Vol] 132 U/L Critically high 46-116 [facility] Comment on above: Performed By: #### C MP ####[facility] Hprkbfntjq0924 [place] [address]Dr. Flaco Lawrence ALT [Catalytic activity/Vol] 18 U/L Normal 16-63 [facility] Comment on above: Performed By: #### C MP ####[facility] Inbgqifhfk8731 [place] [address]Dr. Flaco Lawrence Anion gap [Moles/Vol] 15.7 mmol/L Normal [facility] Comment on above: Performed By: #### C MP ####[facility] Cxmfrpqrae1377 [place] [phone]. Flaco Lawrence AST [Catalytic activity/Vol] 26 U/L Normal 15-37 [facility] Comment on above: Performed By: #### C MP ####[facility] Kuyoxzymhm6720 [place], [place] [address]Cm. Flaco Lawrence Bilirubin [Mass/Vol] 0.5 mg/dL Normal 0.2-1.0 [facility] Comment on above: Performed By: #### C MP ####[facility] Atoccujtdc1507 [place] [phone]. Flaco Lawrence Calcium [Mass/Vol] 9.2 mg/dL Normal 8.5-10.1 [facility] Comment on above: Performed By: #### C MP ####[facility] Dxkxstqfox6802 [place] [phone]. Flaco Lawrence Chloride [Moles/Vol] 99 mmol/L Normal 98-107 [facility] Comment on above: Performed By: #### C MP ####[facility] Afdmhbgniy7153 [place] [phone]. Flaco Lawrence CO2 [Moles/Vol] 23.9 mmol/L Normal 21.0-32.0 [facility] Comment on above: Performed By: #### C MP ####[facility] Ckzamngoqy2594 [place] [phone]. Flaco Lawrence Creatinine [Mass/Vol] 1.65 mg/dL Critically high 0.70-1.30 [facility] Comment on above: Performed By: #### C MP ####[facility] Ntrvxbsfoe2807 [place] [phone]. Flaco Lawrence EGFR-AF BARBADIAN 50 mL/min/1.73m2 Critically low >=60 [facility] Comment on above: Performed By: #### C MP ####[facility] Usphzxmjpx1793 [place] [phone]. Flaco Lawrence EGFR-NON AF BARBADIAN 41 mL/min/1.73m2 Critically low >=60 [facility] Comment on above: Performed By: #### C MP ####[facility] Ztaiwfxupc8908 [place] [phone]. Flaco Lawrence Globulin (S) [Mass/Vol] 4.5 g/dL Normal [facility] Comment on above: Performed By: #### C MP ####[facility] Dxxutkbpve4175 [place] [phone]. Flaco Lawrence Glucose [Mass/Vol] 116 mg/dL Critically high 74-106 [facility] [place] Comment on above: Performed By: #### C MP ####[facility] Bhaglisyps4406 [place] [phone]. Flaco Lawrence Potassium [Moles/Vol] 3.6 mmol/L Normal 3.5-5.1 [facility] Comment on above: Performed By: #### C MP ####[facility] Kliesmoklg4783 [place] [address]Dr. Flaco Lawrence Protein [Mass/Vol] 6.9 g/dL Normal 6.4-8.2 [facility] Comment on above: Performed By: #### C MP ####[facility] Mrajvtwluf7605 [place] [address]Dr. Flaco Lawrence Sodium [Moles/Vol] 135 mmol/L Critically low 136-145 [facility] Comment on above: Performed By: #### C MP ####[facility] Ocewgudbpc0599 [place] [address]Dr. Flaco Lawrence Urea nitrogen [Mass/Vol] 21.0 mg/dL Critically high 7.0-18.0 [facility] Comment on above: Performed By: #### C MP ####[facility] Ebxzkzwomj9053 [place] [address]Dr. Flaco Lawrence Urea nitrogen/Creatinine [Mass ratio] 12.7 mg/mg Normal [facility] Comment on above: Performed By: #### C MP ####[facility] Nsmyxmopzs[address] [place], [place] [address]Dr. Flaco Branden CBC W MANUAL DIFFon 11-16-19 23 ATYPICAL LYMPH # Normal [facility] Comment on above: Performed By: #### C BCMAN ####[facility] Jeksmddqjq9122 [place] [phone]. Flaco Lawrence ATYPICAL LYMPH % Normal [facility] Comment on above: Performed By: #### C [place] ####[facility] Amhysvjgqi9295 [place] [phone]. Yilan Lawrence BAND # 0.0 103/ul Normal 0.0-0.3 [facility] Comment on above: Performed By: #### C [place] ####[facility] Uvihqdfcms1583 [place] [address]Dr. Yilan Lawrence BAND % 0 % Normal 0-5 [facility] Comment on above: Performed By: #### C [place] ####[facility] Snywbcvjtb[address] [place], [place] [address]Dr. Yilan Lawrence BASOM # 0.00 103/ul Normal 0.00-0.10 [facility] Comment on above: Performed By: #### C [place] ####[facility] Gqtssdlkkl[address] [place], [place] [address]Dr. Yiedith Lawrence BASOM % 0.0 % Critically low 0.2-2.0 [facility] Comment on above: Performed By: #### C [place] ####[facility] Fdhcdbqfxc[address] [place], [place] [address]Dr. Yilan Lawrence BLAST # Normal [facility] Comment on above: Performed By: #### C [place] ####[facility] Awrwekikel6863 [place] [address]Dr. Yilan Lawrence BLAST % Normal [facility] Comment on above: Performed By: #### C [place] ####[facility] Tyrljnfdbu3857 [place] [address]Dr. Flaco Lawrence CORRECTED WBC Normal 4.0-11.0 [facility] [facility] Comment on above: Performed By: #### C CLEVELAND ####[facility] [address]ttjlsgyut[address] [place], [place] [address]Dr. Yilan Lawrence EOS # 0.00 103/ul Normal 0.00-0.70 [facility] Comment on above: Performed By: #### C C[place]AND ####[facility] Pmbpzilgac7814 [place], [place] [address]Zy. Flaco Lawrence EOS% 0.0 % Critically low 0.9-7.0 [facility] Comment on above: Performed By: #### C C[place]AND ####[facility] Oggeiuuqij3232 [place], [place] [address]Dd. Flaco Lawrence HCT 35.9 % Critically low 42.0-54.0 [facility] Comment on above: Performed By: #### C C[place]AND ####[facility] Fqvmaklkvb2921 [place], [place] [address]Hi. Flaco Lawrence HGB 12.0 g/dl Critically low 14.0-18.0 [facility] Comment on above: Performed By: #### C C[place]AND ####[facility] Pgfmyexfyc9105 [place], [place] [address]Dl. Flaco Lawrence LYMPHM # 1.42 103/ul Normal 1.20-3.80 [facility] Comment on above: Performed By: #### C C[place]AND ####[facility] Mqbtuakuvv9725 [place], [place] [address]Ru. Flaco Lawrence LYMPHM% 11.0 % Critically low 20.5-60.0 [facility] Comment on above: Performed By: #### C C[place]AND ####[facility] Uxrjcpdfyz8326 [place] [phone]. Flaco Lawrence MCH 28.6 pg Normal 25.9-34.0 [facility] Comment on above: Performed By: #### C C[place]AND ####[facility] Wmtrkccrws8010 [place], [place] [address]La. Flaco Lawrence MCHC 33.4 g/dl Normal 29.9-35.2 [facility] Comment on above: Performed By: #### C CLEVELAND ####[facility] Ktfkwhvnrm6895 [place], [place] [address]Pd. Flaco Lawrence MCV 85.5 fL Normal 80.0-94.0 [facility] Comment on above: Performed By: #### C C[place]AND ####[facility] Wtaayivuui9386 [place] [phone]. Flaco Lawrence METAMYELOCYTE # Normal [facility] Comment on above: Performed By: #### C BCMAN ####[facility] Obhnijbwdi0507 [place] [phone]. Flaco Lawrence METAMYELOCYTE % Normal [facility] Comment on above: Performed By: #### C BCMAN ####[facility] Zsqihqmncx6130 [place] [phone]. Flaco Lawrence MONOM# 1.42 103/ul Critically high 0.30-0.80 [facility] Comment on above: Performed By: #### C BCMAN ####[facility] Edtsiiruke1289 [place] [phone]. Flaco Lawrence MONOM% 11.0 % Normal 1.7-12.0 [facility] Comment on above: Performed By: #### C C[place]AND ####[facility] Iuvfcqhfyt7266 [place] [phone]. Flaco Lawrence MPV 9.5 fL Normal 9.5-13.5 [facility] Comment on above: Performed By: #### C BCMAN ####[facility] Dqxmbpvnco6563 [place] [phone]. Flaco Lawrence MYELOCYTE # Normal [facility] Comment on above: Performed By: #### C C[place]AND ####[facility] Klhovvzaab7928 [place] [phone]. Flaco Lawrence MYELOCYTE % Normal [facility] Comment on above: Performed By: #### C BCGAYATHRI ####[facility] Awykcjnqgf9936 [place] [phone]. Flaco Lawrence NRBC Normal [facility] Comment on above: Performed By: #### C BCMAN ####[facility] Yrhwclluxg7002 [place] [phone]. Flaco Lawrence PLT 469 103/ul Critically high 150-450 [facility] Comment on above: Performed By: #### C BCGAYATHRI ####[facility] Hdkrppbxzr4922 [place] [phone]. Yiedith Lawrence RBC 4.20 106/ul Critically low 4.70-6.10 [facility] Comment on above: Performed By: #### C C[place]AND ####[facility] Mclzfehhii7450 [place] [phone]. Flaco Lawrence RDW 16.3 % Critically high 11.0-15.0 [facility] Comment on above: Performed By: #### C C[place] ####[facility] Cbcqtzhwnc8901 [place] [address]DrJeramie Lawrence SEG # 10.06 103/ul Critically high 1.40-6.50 [facility] Comment on above: Performed By: #### C C[place]AND ####[facility] Oxnusqqnsf3800 [place] [address]DrJeramie Lawrence SEG % 78.0 % Critically high 43.0-75.0 [facility] Comment on above: Performed By: #### C C[place]AND ####[facility] Vogybmpuxc1239 [place] [address]DrJeramie Lawrence WBC 12.9 103/ul Critically high 4.0-11.0 [facility] Comment on above: Performed By: #### C C[place]AND ####[facility] Pjivkhfemf2985 [place] [address]DrJeramie Lawrence PROF 14(COMP METB)on 023 Albumin [Mass/Vol] 2.5 g/dL Critically low 3.4-5.0 [facility] Comment on above: Performed By: #### C MP ####[facility] Jpxennjcqp3217 [place] [phone] Lawrence Albumin/Globulin [Mass ratio] 0.6 {ratio} Normal [facility] Comment on above: Performed By: #### C MP ####[facility] Jucrvdpxcw7990 [place] [address]DrJeramie Lawrence ALP [Catalytic activity/Vol] 118 U/L Critically high 46-116 [facility] Comment on above: Performed By: #### C MP ####[facility] Jfyatcutov1671 [place] [address]DrJeramie Lawrence ALT [Catalytic activity/Vol] 12 U/L Critically low 16-63 [facility] Comment on above: Performed By: #### C MP ####[facility] Kdxjhurwzr1695 [place] [phone]. Flaco Lawrence Anion gap [Moles/Vol] 15.8 mmol/L Normal [facility] Comment on above: Performed By: #### C MP ####[facility] Lrqeuzkzpv5219 [place] [phone]. Flaco Lawrence AST [Catalytic activity/Vol] 22 U/L Normal 15-37 [facility] Comment on above: Performed By: #### C MP ####[facility] Vlfwufvdlx35[address] [place], [place] [address]Dr. Flaco Lawrence Bilirubin [Mass/Vol] 0.8 mg/dL Normal 0.2-1.0 [facility] Comment on above: Performed By: #### C MP ####[facility] Smaigulcea1539[address] [place], [place] [address]Dr. Flaco Lawrence Calcium [Mass/Vol] 8.9 mg/dL Normal 8.5-10.1 [facility] Comment on above: Performed By: #### C MP ####[facility] Vchuljtsum226[address] [place], [place] [address]Dr. Flaco Lawrence Chloride [Moles/Vol] 97 mmol/L Critically low 98-107 [facility] Comment on above: Performed By: #### C MP ####[facility] Rfpbnzjbxc22[address] [place], [place] [address]Dr. Flaco Lawrence CO2 [Moles/Vol] 22.8 mmol/L Normal 21.0-32.0 [facility] Comment on above: Performed By: #### C MP ####[facility] Glgbdbakpc0043[address] [place], [place] [address]Dr. Flaco Lawrence Creatinine [Mass/Vol] 1.64 mg/dL Critically high 0.70-1.30 [facility] Comment on above: Performed By: #### C MP ####[facility] Tlyavpihnb7980[address] [place], [place] [address]Dr. Flaco Lawrence EGFR-AF BARBADIAN 50 mL/min/1.73m2 Critically low >=60 [facility] Comment on above: Performed By: #### C MP ####[facility] Skobnilxwj8682 [place] [phone]. Flaco Branden EGFR-NON AF BARBADIAN 42 mL/min/1.73m2 Critically low >=60 [facility] Comment on above: Performed By: #### C MP ####[facility] Jktzlnzzyq1424 [place] [phone]. Flaco Lawrence Globulin (S) [Mass/Vol] 4.2 g/dL Normal [facility] Comment on above: Performed By: #### C MP ####[facility] Fqqiytrqtr177[address] [place], [place] [address]Dr. Flaco Lawrence Glucose [Mass/Vol] 110 mg/dL Critically high 74-106 T [facility] [place] Comment on above: Performed By: #### C MP ####[facility] Bbhbvfonko3269[address] [place], [place] [address]Dr. Flaco Lawrence Potassium [Moles/Vol] 3.6 mmol/L Normal 3.5-5.1 [facility] Comment on above: Performed By: #### C MP ####[facility] Bptsctdfdx639[address] [place], [place] [address]Dr. Flaco Lawrence Protein [Mass/Vol] 6.7 g/dL Normal 6.4-8.2 [facility] Comment on above: Performed By: #### C MP ####[facility] Uumhgvwtsz3253 [place] [phone]. Flaco Lawrence Sodium [Moles/Vol] 132 mmol/L Critically low 136-145 [facility] Comment on above: Performed By: #### C MP ####[facility] Dcqicpbuxd925[address] [place], [place] [address]Dr. Flaco Lawrence Urea nitrogen [Mass/Vol] 20.0 mg/dL Critically high 7.0-18.0 [facility] Comment on above: Performed By: #### C MP ####[facility] Lqdszkzxai759[address] [place], [place] [address]Dr. Flaco Lawrence Urea nitrogen/Creatinine [Mass ratio] 12.2 mg/mg Normal [facility] Comment on above: Performed By: #### C MP ####[facility] Uporckquve1244[address] [place], [place] [address]Dr. Flaco Lawrence AMMONIAon 11-15-2022 Ammonia (P) [Moles/Vol] 22 umol/L Normal 11-32 [facility] Comment on above: Performed By: #### A MM ####[facility] Qcngbnlunc100[address] [place], [place] [address]Dr. Flaco Lawrence CBC AUTO DIFFon 11-15-2022 BASO # 0.0 103/ul Normal 0.0-0.1 [facility] Comment on above: Performed By: #### C BC ####[facility] Apotapmvro9635[address] [place], [place] [address]Dr. Flaco Lawrence Basophils/100 WBC (Bld) 0.3 % Normal 0.2-2.0 [facility] Comment on above: Performed By: #### C BC ####[facility] Kwtrksuzen715[address] [place], [place] [address]Dr. Flaco Lawrence EO # 0.0 103/ul Normal 0.0-0.7 [facility] Comment on above: Performed By: #### C BC ####[facility] Cizgnchilz062[address] [place], [place] [address]Dr. Flaco Lawrence Eosinophils/100 WBC (Bld) 0.3 % Critically low 0.9-7.0 [facility] Comment on above: Performed By: #### C BC ####[facility] Zagcykpmpc507348 [address] [place], [place] [address]Dr. Flaco Lawrence Erythrocyte distribution width (RBC) [Ratio] 16.3 % Critically high 11.0-15.0 [facility] Comment on above: Performed By: #### C BC ####[facility] Zgkfdgrngp8[address] [place], [place] [address]Dr. Flaco Lawrence Hematocrit (Bld) [Volume fraction] 39.2 % Critically low 42.0-54.0 [facility] Comment on above: Performed By: #### C BC ####[facility] Gozjymhivd7575 [place] [phone]. Flaco Lawrence Hemoglobin (Bld) [Mass/Vol] 12.9 g/dL Critically low 14.0-18.0 [facility] Comment on above: Performed By: #### C BC ####[facility] Zqtcbjfblr3781 [place] [phone]. Flaco Lawrence IG # 0.05 10e3/ul Critically high 0.00-0.03 [facility] Comment on above: Performed By: #### C BC ####[facility] Liiwvbiglj1986 [place] [address]Dr. Flaco Lawrence IG % 0.4 % Normal 0.0-0.5 [facility] Comment on above: Performed By: #### C BC ####[facility] Kqdvovsmic[address] [place], [place] [address]Dr. Flaco Lawrence LYMPH # 1.6 103/ul Normal 1.2-3.8 [facility] Comment on above: Performed By: #### C BC ####[facility] Sjanryjyna35[address] [place], [place] [address]Dr. Flaco Lawrence Lymphocytes/100 WBC (Bld) 12.5 % Critically low 20.5-60.0 [facility] Comment on above: Performed By: #### C BC ####[facility] Dghfxujtxe8600 [place] [address]Dr. Flaco Lawrence MANUAL DIFF REQ NO Normal [facility] Comment on above: Performed By: #### C BC ####[facility] Qvkumzrqtl09[address] [place], [place] [address]Dr. Flaco Lawrence MCH (RBC) [Entitic mass] 28.7 pg Normal 25.9-34.0 [facility] Comment on above: Performed By: #### C BC ####[facility] Uyzcxuwjgf[address] [place], [place] [address]Dr. Flaco Lawrence MCHC (RBC) [Mass/Vol] 32.9 g/dL Normal 29.9-35.2 [facility] Comment on above: Performed By: #### C BC ####[facility] Hznfrxcude9674 [place] [phone]. Flaco Lawrence MCV (RBC) [Entitic vol] 87.1 fL Normal 80.0-94.0 [facility] Comment on above: Performed By: #### C BC ####[facility] Yivifqajco6548 [place] [phone]. Flaco Lawrence MONO # 1.4 103/ul Critically high 0.3-0.8 [facility] Comment on above: Performed By: #### C BC ####[facility] Gcfqtcneoo7413 [place] [phone]. Flaco Lawrence Monocytes/100 WBC (Bld) 11.2 % Normal 1.7-12.0 [facility] Comment on above: Performed By: #### C BC ####[facility] Ohdbgmvhyc8[address] [place], [place] [address]Dr. Flaco Lawrence NEUT # 9.4 103/ul Critically high 1.4-6.5 [facility] Comment on above: Performed By: #### C BC ####[facility] Nzbptsmnwq0266 [place] [phone]. Flaco Lawrence Neutrophils/100 WBC (Bld) 75.3 % Critically high 43.0-75.0 [facility] Comment on above: Performed By: #### C BC ####[facility] Tvoavqhsis2084 [place] [phone]. Flaco Lawrence Platelet mean volume (Bld) [Entitic vol] 9.3 fL Critically low 9.5-13.5 [facility] Comment on above: Performed By: #### C BC ####[facility] Gxktthdpjp1996 [place] [phone]. Flaco Lawrence PLT 532 103/ul Critically high 150-450 [facility] Comment on above: Performed By: #### C BC ####[facility] Plcluvtzwg[address] [place], [place] [address]Dr. Flaco Branden RBC 4.50 106/ul Critically low 4.70-6.10 [facility] Comment on above: Performed By: #### C BC ####[facility] Xxbzqkzgmi6201 [place] [address]Dr. Flaco Lawrence WBC 12.5 103/ul Critically high 4.0-11.0 [facility] Comment on above: Performed By: #### C BC ####[facility] Ajjwtvftuj2694 [place] [address]Dr. Flaco Lawrence PROF 14(COMP METB)on 023 Albumin [Mass/Vol] 3.0 g/dL Critically low 3.4-5.0 [facility] Comment on above: Performed By: #### C MP ####[facility] Rgumerorxe5519 [place] [address]Dr. Flaco Lawrence Albumin/Globulin [Mass ratio] 0.5 {ratio} Normal [facility] Comment on above: Performed By: #### C MP ####[facility] Bakluxujqp4561 [place] [address]Dr. Flaco Lawrence ALP [Catalytic activity/Vol] 103 U/L Normal 46-116 [facility] Comment on above: Performed By: #### C MP ####[facility] Zndnclqagg7409 [place] [address]Dr. Flaco Lawrence ALT [Catalytic activity/Vol] 12 U/L Critically low 16-63 [facility] Comment on above: Performed By: #### C MP ####[facility] Acpgmsxdvl9845 [place] [address]Dr. Flaco Lawrence Anion gap [Moles/Vol] 16.8 mmol/L Normal [facility] Comment on above: Performed By: #### C MP ####[facility] Vvzciskgrh9226 [place] [address]Dr. Flaco Lawrence AST [Catalytic activity/Vol] 16 U/L Normal 15-37 [facility] Comment on above: Performed By: #### C MP ####[facility] Vlvhdhwyvk9664 [place] [address]Dr. Flaco Lawrence Bilirubin [Mass/Vol] 1.0 mg/dL Normal 0.2-1.0 [facility] Comment on above: Performed By: #### C MP ####[facility] Efraouknqy9282 [place] [phone]. Flaco Lawrence Calcium [Mass/Vol] 9.8 mg/dL Normal 8.5-10.1 [facility] Comment on above: Performed By: #### C MP ####[facility] Xvutxxaery8437 [place] [phone]. Flaco Lawrence Chloride [Moles/Vol] 98 mmol/L Normal 98-107 [facility] Comment on above: Performed By: #### C MP ####[facility] Jodomxknfj5675 [place] [phone]. Flaco Lawrence CO2 [Moles/Vol] 24.3 mmol/L Normal 21.0-32.0 [facility] Comment on above: Performed By: #### C MP ####[facility] Ewocrsgyqz15[address] [place], [place] [address]Dr. Flaco Lawrence Creatinine [Mass/Vol] 1.86 mg/dL Critically high 0.70-1.30 [facility] Comment on above: Performed By: #### C MP ####[facility] Zobgyqojzy501[address] [place], [place] [address]Dr. Flaco Lawrence EGFR-AF BARBADIAN 44 mL/min/1.73m2 Critically low >=60 [facility] Comment on above: Performed By: #### C MP ####[facility] Fjvnijtxjj029[address] [place], [place] [address]Dr. Flaco Branden EGFR-NON AF BARBADIAN 36 mL/min/1.73m2 Critically low >=60 [facility] Comment on above: Performed By: #### C MP ####[facility] Ofnbgzwagv3224[address] [place], [place] [address]Dr. Flaco Lawrence Globulin (S) [Mass/Vol] 5.6 g/dL Normal [facility] Comment on above: Performed By: #### C MP ####[facility] Ulomjqgndn6844[address] [place], [place] [address]Dr. Flaco Lawrence Glucose [Mass/Vol] 108 mg/dL Critically high 74-106 [facility] Comment on above: Performed By: #### C MP ####[facility] Hdgmztvlxz5355 [place] [phone]. Purviedith Lawrence Potassium [Moles/Vol] 4.1 mmol/L Normal 3.5-5.1 [facility] Comment on above: Performed By: #### C MP ####[facility] Wdpfzjppwg3006 [place] [address]Dr. Purviedith Lawrence Protein [Mass/Vol] 8.6 g/dL Critically high 6.4-8.2 [facility] Comment on above: Performed By: #### C MP ####[facility] Xmddjjxwdv4311 [place] [address]Dr. Flaco Lawrence Sodium [Moles/Vol] 135 mmol/L Critically low 136-145 [facility] Comment on above: Performed By: #### C MP ####[facility] Fgvyppqxfw4131 [place] [address]Dr. Flaco Lawrence Urea nitrogen [Mass/Vol] 18.0 mg/dL Normal 7.0-18.0 [facility] Comment on above: Performed By: #### C MP ####[facility] Svxrjqwmau909[address] [place], [place] [address]Dr. Flaco Lawrence Urea nitrogen/Creatinine [Mass ratio] 9.7 mg/mg Normal [facility] Comment on above: Performed By: #### C MP ####[facility] Wbnqszaygt0533 [place] [address]Dr. Flaco Lawrence CT HEAD WO CONon 11-14-2022 CT HEAD WO CON Normal [facility] MRI LSPINE WO CONon 11-14-19 MRI LSPINE WO CON Normal [facility] CBC AUTO DIFFon 11-13-2022 BASO # 0.0 103/ul Normal 0.0-0.1 [facility] Comment on above: Performed By: #### C BC ####[facility] Zuqwsnvblq38[address] [place], [place] [address]Dr. Flaco Lawrence Basophils/100 WBC (Bld) 0.4 % Normal 0.2-2.0 [facility] Comment on above: Performed By: #### C BC ####[facility] Pnnqdzxrxl8892 [place] [phone]. Flaco Lawrence EO # 0.1 103/ul Normal 0.0-0.7 [facility] Comment on above: Performed By: #### C BC ####[facility] Rsgtfzxymf3823 [place] [address]Dr. Flaco Lawrence Eosinophils/100 WBC (Bld) 1.0 % Normal 0.9-7.0 [facility] Comment on above: Performed By: #### C BC ####[facility] Mgsfhrsqoz1640[address] [place], [place] [address]Dr. Flaco Lawrence Erythrocyte distribution width (RBC) [Ratio] 15.9 % Critically high 11.0-15.0 [facility] Comment on above: Performed By: #### C BC ####[facility] Cpejeldlrx84[address] [place], [place] [address]Dr. Flaco Lawrence Hematocrit (Bld) [Volume fraction] 35.9 % Critically low 42.0-54.0 [facility] Comment on above: Performed By: #### C BC ####[facility] Zsieddqebo8[address] [place], [place] [address]Dr. Flaco Lawrence Hemoglobin (Bld) [Mass/Vol] 11.9 g/dL Critically low 14.0-18.0 [facility] Comment on above: Performed By: #### C BC ####[facility] Yyekzhueay88[address] [place], [place] [address]Dr. Flaco Lawrence IG # 0.03 10e3/ul Normal 0.00-0.03 [facility] Comment on above: Performed By: #### C BC ####[facility] Vyvzssdmpe23[address] [place], [place] [address]Dr. Flaco Lawrence IG % 0.4 % Normal 0.0-0.5 [facility] Comment on above: Performed By: #### C BC ####[facility] Idoluptbne8[address] [place], [place] [address]Dr. Purviedith Lawrence LYMPH # 1.8 103/ul Normal 1.2-3.8 [facility] Comment on above: Performed By: #### C BC ####[facility] Irpwsqccda4721 [place] [phone]. Flaco Branden Lymphocytes/100 WBC (Bld) 22.2 % Normal 20.5-60.0 [facility] Comment on above: Performed By: #### C BC ####[facility] Qnmvvznhoy6579 [place] [phone]. Purviedith Lawrence MANUAL DIFF REQ NO Normal [facility] Comment on above: Performed By: #### C BC ####[facility] Bfeofybuvn4324 [place] [phone]. Purviedith Lawrence MCH (RBC) [Entitic mass] 28.8 pg Normal 25.9-34.0 [facility] Comment on above: Performed By: #### C BC ####[facility] Kjhodnmeli8520 [place] [address]Dr. Flaco Branden MCHC (RBC) [Mass/Vol] 33.1 g/dL Normal 29.9-35.2 [facility] Comment on above: Performed By: #### C BC ####[facility] Gvjelnlpbv0763 [place] [phone]. Purviedith Lawrence MCV (RBC) [Entitic vol] 86.9 fL Normal 80.0-94.0 [facility] Comment on above: Performed By: #### C BC ####[facility] Ltohbasqry7856 [place] [phone]. Flaco Lawrence MONO # 1.0 103/ul Critically high 0.3-0.8 [facility] Comment on above: Performed By: #### C BC ####[facility] Xypxdgjmsm1704 [place] [phone]. Flaco Lawrence Monocytes/100 WBC (Bld) 13.0 % Critically high 1.7-12.0 [facility] Comment on above: Performed By: #### C BC ####[facility] Dbhmvtqzjp[address] [place], [place] [address]Dr. Flaco Lawrence NEUT # 5.0 103/ul Normal 1.4-6.5 [facility] Comment on above: Performed By: #### C BC ####[facility] Qtqjtpnkwd0711 [place] [phone]. Flaco Lawrence Neutrophils/100 WBC (Bld) 63.0 % Normal 43.0-75.0 [facility] Comment on above: Performed By: #### C BC ####[facility] Hibpdyfiki8259 [place] [address]Dr. Flaco Lawrence Platelet mean volume (Bld) [Entitic vol] 9.5 fL Normal 9.5-13.5 [facility] Comment on above: Performed By: #### C BC ####[facility] Dbxvratqsq6557 [place] [address]Dr. Flaco Branden PLT 335 103/ul Normal 150-450 [facility] Comment on above: Performed By: #### C BC ####[facility] Zswftqthez39[address] [place], [place] [address]Dr. Flaco Lawrence RBC 4.13 106/ul Critically low 4.70-6.10 [facility] Comment on above: Performed By: #### C BC ####[facility] Ynveiouyhl67[address] [place], [place] [address]Dr. Flaco Branden WBC 7.9 103/ul Normal 4.0-11.0 [facility] Comment on above: Performed By: #### C BC ####[facility] Uzoxixymkl4[address] [place], [place] [address]Dr. Flaco Branden ER URINE PROFILEon 3 Bilirubin Ql (U) Negative Normal NEGATIVE [facility] Comment on above: Performed By: #### E RUR ####[facility] Xbwsdwxjie9118[address] [place], [place] [address]Dr. Flaco Lawrence Clarity (U) CLEAR Normal CLEAR [facility] Comment on above: Performed By: #### E RUR ####[facility] Ldfledaucz435[address] [place], [place] [address]Dr. Flaco Lawrence Color (U) LT. YELLOW Normal YELLOW [facility] Comment on above: Performed By: #### E RUR ####[facility] R[address]qjgfnbuc58[address] [place], [place] [address]Dr. Yilan Lawrence ERUAHD A micrscopic examination will be performed if indicated. Normal [facility] Comment on above: Performed By: #### E RUR ####[facility] Mguyfgmuvu019[address] [place], [place] [address]Dr. Flaco Lawrence Glucose Ql (U) Negative Normal NEGATIVE [facility] Comment on above: Performed By: #### E RUR ####[facility] Ytldtrofnk3465[address] [place], [place] [address]Dr. Flaco Branden Hemoglobin Ql (U) Negative Normal NEGATIVE [facility] Comment on above: Performed By: #### E RUR ####[facility] Qrlixodnqq8[address] [place], [place] [address]Dr. Purviedith Branden Ketones Ql (U) Negative Normal NEGATIVE [facility] Comment on above: Performed By: #### E RUR ####[facility] Baxjxyiwfu894[address] [place], [place] [address]Dr. Flaco Lawrence LEUKOCYTES Negative Normal NEGATIVE [facility] Comment on above: Performed By: #### E RUR ####[facility] Wwobrvshvr12[address] [place], [place] [address]Dr. Purviedith Branden Nitrite Ql (U) Negative Normal NEGATIVE [facility] Comment on above: Performed By: #### E RUR ####[facility] Svlwilpjnt[address] [place], [place] [address]Dr. Flaco Lawrence pH (U) 5.5 [pH] Normal 5-9 [facility] Comment on above: Performed By: #### E RUR ####[facility] Andpsllabu022[address] [place], [place] [address]Dr. Flaco Lawrence SPEC GRAVITY <=1.005 Abnormal 1.005-<=1.02 5 [facility] Comment on above: Performed By: #### E RUR ####[facility] Zxxwvitize040[address] [place], [place] [address]Dr. Flaco Lawrence UA PROTEIN Negative Normal NEGATIVE/ TRACE [facility] Comment on above: Performed By: #### E RUR ####[facility] Zcntwkqeor[address] [place], [place] [address]Dr. Flaco Lawrence UR MICRO IND NOT INDICATED Normal [facility] Comment on above: Performed By: #### E RUR ####[facility] Nidupjnrsz5306 [place] [address]Dr. Flaco Lawrence Urobilinogen Qn (U) 0.2 {Tuan'U}/dL Normal 0.2 - 1. 0 [facility] Comment on above: Performed By: #### E RUR ####[facility] [address]dtxbd[address] [place], [place] [address]Dr. Flaco Lawrence PROF CHEM 8 (BAS METB)on Anion gap [Moles/Vol] 13.6 mmol/L Normal [facility] Comment on above: Performed By: #### B MP ####[facility] Dwfhwhxbir[address] [place], [place] [address]Dr. Flaco Lawrence Calcium [Mass/Vol] 9.2 mg/dL Normal 8.5-10.1 [facility] Comment on above: Performed By: #### B MP ####[facility] Mjbpqhywiu[address] [place], [place] [address]Dr. Flaco Lawrence Chloride [Moles/Vol] 104 mmol/L Normal 98-107 [facility] Comment on above: Performed By: #### B MP ####[facility] Onvcctsczn[address] [place], [place] [address]Dr. Flaco Lawrence CO2 [Moles/Vol] 24.9 mmol/L Normal 21.0-32.0 [facility] Comment on above: Performed By: #### B MP ####[facility] Vqvlkbwdlu[address] [place], [place] [address]Dr. Flaco Lawrence Creatinine [Mass/Vol] 1.59 mg/dL Critically high 0.70-1.30 [facility] Comment on above: Performed By: #### B MP ####[facility] Zbeyvgyigq01[address] [place], [place] [address]Dr. Flaco Lawrence EGFR-AF BARBADIAN 52 mL/min/1.73m2 Critically low >=60 [facility] Comment on above: Performed By: #### B MP ####[facility] [address]ytfcmh[address] [place] [address]Dr. Flaco Lawrence EGFR-NON AF BARBADIAN 43 mL/min/1.73m2 Critically low >=60 [facility] Comment on above: Performed By: #### B MP ####[facility] Acbvkhnwfg2115 [place] [address]Dr. Flaco Lawrence Glucose [Mass/Vol] 119 mg/dL Critically high 74-106 T [facility] [place] Comment on above: Performed By: #### B MP ####[facility] Ixbnqrxhbo7164 [place] [address]Dr. Flaco Lawrence Potassium [Moles/Vol] 3.5 mmol/L Normal 3.5-5.1 [facility] Comment on above: Performed By: #### B MP ####[facility] Ktsmxccaap[address] [place], [place] [address]Dr. Purviedith Lawrence Sodium [Moles/Vol] 139 mmol/L Normal 136-145 [facility] Comment on above: Performed By: #### B MP ####[facility] Ltzazqqnyy60[address] [place], [place] [address]Dr. Flaco Branden Urea nitrogen [Mass/Vol] 12.0 mg/dL Normal 7.0-18.0 [facility] Comment on above: Performed By: #### B MP ####[facility] Ejltflxgkj99[address] [place], [place] [address]Dr. Flaco Branden Urea nitrogen/Creatinine [Mass ratio] 7.5 mg/mg Normal [facility] Comment on above: Performed By: #### B MP ####[facility] Eimcsocbsn18[address] [place], [place] [address]Dr. Flaco Branden CBC AUTO DIFFon 11-12-2022 BASO # 0.0 103/ul Normal 0.0-0.1 [facility] Comment on above: Performed By: #### C BC ####[facility] Eqbfxwudnh10[address] [place] [address]Dr. Flaco Lawrence Basophils/100 WBC (Bld) 0.4 % Normal 0.2-2.0 [facility] Comment on above: Performed By: #### C BC ####[facility] Uiimmzmcar7993 [place] [phone]. Flaco Lawrence EO # 0.1 103/ul Normal 0.0-0.7 [facility] Comment on above: Performed By: #### C BC ####[facility] Sutysstohb7823 [place] [address]Dr. Flaco Lawrence Eosinophils/100 WBC (Bld) 0.6 % Critically low 0.9-7.0 [facility] Comment on above: Performed By: #### C BC ####[facility] Pvizxkqhak[address] [place], [place] [address]Dr. Flaco Lawrence Erythrocyte distribution width (RBC) [Ratio] 15.9 % Critically high 11.0-15.0 [facility] Comment on above: Performed By: #### C BC ####[facility] Zezojgifds2864[address] [place], [place] [address]Dr. Flaco Lawrence Hematocrit (Bld) [Volume fraction] 36.0 % Critically low 42.0-54.0 [facility] Comment on above: Performed By: #### C BC ####[facility] Spckonedqs[address] [place], [place] [address]Dr. Flaco Lawrence Hemoglobin (Bld) [Mass/Vol] 11.9 g/dL Critically low 14.0-18.0 [facility] Comment on above: Performed By: #### C BC ####[facility] Szulaqsbct93[address] [place], [place] [address]Dr. Flaco Lawrence IG # 0.03 10e3/ul Normal 0.00-0.03 [facility] Comment on above: Performed By: #### C BC ####[facility] Kckvsbeywe3[address] [place], [place] [address]Dr. Flaco Lawrence IG % 0.3 % Normal 0.0-0.5 [facility] Comment on above: Performed By: #### C BC ####[facility] Zgsssjhdin[address] [place], [place] [address]Dr. Flaco Lawrence LYMPH # 1.9 103/ul Normal 1.2-3.8 [facility] Comment on above: Performed By: #### C BC ####[facility] Gblpxodtct2354 [place] [phone]. Flaco Branden Lymphocytes/100 WBC (Bld) 19.3 % Critically low 20.5-60.0 [facility] Comment on above: Performed By: #### C BC ####[facility] Gmuclmbhfx7476 [place] [phone]. Purviedith Lawrence MANUAL DIFF REQ NO Normal [facility] Comment on above: Performed By: #### C BC ####[facility] Gwtbqtwpaj2888 [place] [phone]. Purviedith Lawrence MCH (RBC) [Entitic mass] 28.6 pg Normal 25.9-34.0 [facility] Comment on above: Performed By: #### C BC ####[facility] Xcmoelaqnm3[address] [place], [place] [address]Dr. Purviedith Lawrence MCHC (RBC) [Mass/Vol] 33.1 g/dL Normal 29.9-35.2 [facility] Comment on above: Performed By: #### C BC ####[facility] Hangryzqym1696 [place] [address]Dr. Purviedith Lawrence MCV (RBC) [Entitic vol] 86.5 fL Normal 80.0-94.0 [facility] Comment on above: Performed By: #### C BC ####[facility] Wwajfibzzn9409 [place] [address]Dr. Flaco Lawrence MONO # 1.2 103/ul Critically high 0.3-0.8 [facility] Comment on above: Performed By: #### C BC ####[facility] Mrfzrtqkga2584 [place] [phone]. Flaco Lawrence Monocytes/100 WBC (Bld) 12.5 % Critically high 1.7-12.0 [facility] Comment on above: Performed By: #### C BC ####[facility] Lotbpfhfkn347[address] [place], [place] [address]Dr. Flaco Lawrence NEUT # 6.5 103/ul Normal 1.4-6.5 [facility] Comment on above: Performed By: #### C BC ####[facility] Ardigxrtoa2170 [place] [phone]. Flaco Lawrence Neutrophils/100 WBC (Bld) 66.9 % Normal 43.0-75.0 [facility] Comment on above: Performed By: #### C BC ####[facility] Hmzqjcvrpo8202 [place] [phone]. Flaco Lawrence Platelet mean volume (Bld) [Entitic vol] 9.6 fL Normal 9.5-13.5 [facility] Comment on above: Performed By: #### C BC ####[facility] Cnindvghuz9495 [place] [phone]. Flaco Lawrence PLT 345 103/ul Normal 150-450 [facility] Comment on above: Performed By: #### C BC ####[facility] Ggfwdblzpz9710 [place] [phone]. Purviedith Lawrence RBC 4.16 106/ul Critically low 4.70-6.10 [facility] Comment on above: Performed By: #### C BC ####[facility] Pjffkrfvrh3053 [place] [phone]. Flaco Lawrence WBC 9.7 103/ul Normal 4.0-11.0 [facility] Comment on above: Performed By: #### C BC ####[facility] Smumbaflel2835 [place] [phone]. Flaco Branden ECHOCARDIO M/2D COMPLETEon 0 11-12-2022 ECHOCARDIO M/2D COMPLETE Normal [facility] MRA NECK WO CONon 11-12-2022 MRA NECK WO CON Normal [facility] MRI BRAIN WO CONon 3 MRI BRAIN WO CON Normal [facility] PROF CHEM 8 (BAS METB)on Anion gap [Moles/Vol] 12.7 mmol/L Normal [facility] Comment on above: Performed By: #### B MP ####[facility] Gxvwngkdmg1507 [place] [address]Dr. Flaco Lawrence Calcium [Mass/Vol] 8.8 mg/dL Normal 8.5-10.1 [facility] Comment on above: Performed By: #### B MP ####[facility] Leemkuqnic0224 [place] [address]Dr. Flaco Branden Chloride [Moles/Vol] 102 mmol/L Normal 98-107 [facility] Comment on above: Performed By: #### B MP ####[facility] Ahuhjvywgu6879 [place] [phone]. Flaco Lawrence CO2 [Moles/Vol] 24.9 mmol/L Normal 21.0-32.0 [facility] Comment on above: Performed By: #### B MP ####[facility] Epahilatdl8913 [place] [address]Dr. Flaco Lawrence Creatinine [Mass/Vol] 1.58 mg/dL Critically high 0.70-1.30 [facility] Comment on above: Performed By: #### B MP ####[facility] Vwhthbtmpv[address] [place], [place] [address]Dr. Flaco Lawrence EGFR-AF BARBADIAN 53 mL/min/1.73m2 Critically low >=60 [facility] Comment on above: Performed By: #### B MP ####[facility] Ibnznividr16[address] [place], [place] [address]Dr. Flaco Lawrence EGFR-NON AF BARBADIAN 43 mL/min/1.73m2 Critically low >=60 [facility] Comment on above: Performed By: #### B MP ####[facility] Nwggwbawky1140 [place] [address]Dr. Flaco Lawrence Glucose [Mass/Vol] 107 mg/dL Critically high 74-106 [facility] Comment on above: Performed By: #### B MP ####[facility] Fqqoxuegeo267[address] [place], [place] [address]Dr. Flaco Lawrence Potassium [Moles/Vol] 3.6 mmol/L Normal 3.5-5.1 [facility] Comment on above: Performed By: #### B MP ####[facility] Imazknauer9960[address] [place], [place] [address]Dr. Flaco Lawrence Sodium [Moles/Vol] 136 mmol/L Normal 136-145 [facility] Comment on above: Performed By: #### B MP ####[facility] Qrywypyexf5464 [place] [phone]. Flaco Lawrence Urea nitrogen [Mass/Vol] 10.0 mg/dL Normal 7.0-18.0 [facility] Comment on above: Performed By: #### B MP ####[facility] Szhokzkcmf[address] [place], [place] [address]Dr. Flaco Branden Urea nitrogen/Creatinine [Mass ratio] 6.3 mg/mg Normal [facility] Comment on above: Performed By: #### B MP ####[facility] Jmnjaatqkt103[address] [place], [place] [address]Dr. Flaco Branden CBC AUTO DIFFon 11-11-2022 BASO # 0.0 103/ul Normal 0.0-0.1 [facility] Comment on above: Performed By: #### C BC ####[facility] Fcqmqaclhq[address] [place], [place] [address]Dr. Purviedith Lawrence Basophils/100 WBC (Bld) 0.4 % Normal 0.2-2.0 [facility] Comment on above: Performed By: #### C BC ####[facility] Gqcgutscgd3487[address] [place], [place] [address]Dr. Flaco Branden EO # 0.1 103/ul Normal 0.0-0.7 [facility] Comment on above: Performed By: #### C BC ####[facility] Zipvsvdfwm[address] [place], [place] [address]Dr. Flaco Branden Eosinophils/100 WBC (Bld) 0.7 % Critically low 0.9-7.0 [facility] Comment on above: Performed By: #### C BC ####[facility] Vepmukyxjw100[address] [place], [place] [address]Dr. Flaco Lawrence Erythrocyte distribution width (RBC) [Ratio] 16.3 % Critically high 11.0-15.0 [facility] Comment on above: Performed By: #### C BC ####[facility] Npatkpgdug40[address] [place], [place] [address]Dr. Flaco Lawrence Hematocrit (Bld) [Volume fraction] 37.4 % Critically low 42.0-54.0 [facility] Comment on above: Performed By: #### C BC ####[facility] Tdbrodphxk1910 [place] [address]DrJeramie Lawrence Hemoglobin (Bld) [Mass/Vol] 12.5 g/dL Critically low 14.0-18.0 [facility] Comment on above: Performed By: #### C BC ####[facility] Jbflccmkkc5903 [place] [address]DrJeramie Lawrence IG # 0.03 10e3/ul Normal 0.00-0.03 [facility] Comment on above: Performed By: #### C BC ####[facility] Nitozjvqjq76[address] [place], [place] [address]DrJeramie Lawrence IG % 0.3 % Normal 0.0-0.5 [facility] Comment on above: Performed By: #### C BC ####[facility] Uavmudubzo[address] [place], [place] [address]DrJeramie Lawrence LYMPH # 2.0 103/ul Normal 1.2-3.8 [facility] Comment on above: Performed By: #### C BC ####[facility] Dbfntmdtfz57[address] [place], [place] [address]DrJeramie Lawrence Lymphocytes/100 WBC (Bld) 18.8 % Critically low 20.5-60.0 [facility] Comment on above: Performed By: #### C BC ####[facility] Zcqxtdxmir3504 [place] [address]DrJeramie Lawrence MANUAL DIFF REQ NO Normal [facility] Comment on above: Performed By: #### C BC ####[facility] Bgkxaiwnzq6394 [place] [phone] Lawrence MCH (RBC) [Entitic mass] 29.1 pg Normal 25.9-34.0 [facility] Comment on above: Performed By: #### C BC ####[facility] Qtcqdxidze2284 [place] [phone] Larwence MCHC (RBC) [Mass/Vol] 33.4 g/dL Normal 29.9-35.2 [facility] Comment on above: Performed By: #### C BC ####[facility] Hptmzcyxib2007 [place] [address]DrJeramie Flaco Branden MCV (RBC) [Entitic vol] 87.2 fL Normal 80.0-94.0 [facility] Comment on above: Performed By: #### C BC ####[facility] Mpiddlwppf8313 [place] [address]DrJeramie Lawrence MONO # 1.2 103/ul Critically high 0.3-0.8 [facility] Comment on above: Performed By: #### C BC ####[facility] Ihvrptoxtd6149 [place] [address]DrJeramie Lawrence Monocytes/100 WBC (Bld) 11.2 % Normal 1.7-12.0 [facility] Comment on above: Performed By: #### C BC ####[facility] Cfatounyoy[address] [place], [place] [address]DrJeramie Lawrence NEUT # 7.1 103/ul Critically high 1.4-6.5 [facility] Comment on above: Performed By: #### C BC ####[facility] Xbvuycnrkg34[address] [place], [place] [address]DrJeramie Lawrence Neutrophils/100 WBC (Bld) 68.6 % Normal 43.0-75.0 [facility] Comment on above: Performed By: #### C BC ####[facility] Pasvezrgey[address] [place], [place] [address]DrJeramie Lawrence Platelet mean volume (Bld) [Entitic vol] 9.5 fL Normal 9.5-13.5 [facility] Comment on above: Performed By: #### C BC ####[facility] Qdwdgepfbf[address] [place], [place] [address]DrJeramie Lawrence PLT 351 103/ul Normal 150-450 [facility] Comment on above: Performed By: #### C BC ####[facility] [address]egas[address] [place], [place] [address]DrJeramie Lawrence RBC 4.29 106/ul Critically low 4.70-6.10 [facility] Comment on above: Performed By: #### C BC ####[facility] Yesbiayirg3572 [place], [place] [address]Uf. Flaco Lawrence WBC 10.4 103/ul Normal 4.0-11.0 [facility] Comment on above: Performed By: #### C BC ####[facility] Gawvswyfzy7[address] [place], [place] [address]Ev. Flaco [address] CT HEAD WO CONon 11-11-2022 CT HEAD WO CON Normal [facility] Covid-19 PCR (CVDTBH)on 10-29 SARS-CoV-2 (COVID-19) RNA MARCO ANTONIO+probe Ql (Unsp spec) Not detected Normal NOT DETECTED [facility] Comment on above: Result Comment: When [...] for this test is supported by the [place] of Health and Human Service's declaration that [...] be used). Performed By: #### C VDTBH ####[facility] Nhwihxbwnf8445 [place], [place] [address]Bc. Flaco Lawrence LIPID PROFILEon 11-11-2022 CHOL-HDL RATIO NORM SEE BELOW Normal [facility] Comment on above: Result Comment: 3.3 - 4.4 LOW RISK 4.4 - 7.1 AVERAGE RISK 7.1 - 11.0 MODERATE RISK >11.0 HIGH RISK Performed By: #### L IPID, TSH ####[facility] Izzkjtmxxp0637 [place], [place] [address]Jm. Flaco Lawrence Cholesterol [Mass/Vol] 176 mg/dL Normal <=200 [facility] Comment on above: Performed By: #### L IPID, TSH ####[facility] Bmqhtyryxs6404 [place], [place] [address]Uz. Flaco Lawrence Cholesterol in HDL [Mass/Vol] 40 mg/dL Normal 40-60 [facility] Comment on above: Performed By: #### L IPID, TSH ####[facility] Kfmgxkrkme0813 [place], [place] [address]Ai. Flaco Lawrence Cholesterol in LDL [Mass/Vol] 117.6 mg/dL Normal [facility] Comment on above: Performed By: #### L IPID, TSH ####[facility] Qdqwkhgnbc8057 [place], [place] [address]Sf. Purviedith Branden Cholesterol.total/Chol esterol in HDL [Mass ratio] 4.4 {ratio} Normal [facility] Comment on above: Performed By: #### L IPID, TSH ####[facility] Atvlehgrbl4236 [place], [place] [address]Kp. Purvilan Lawrence HDL NORMAL > or = 60 mg/dl - LO W CARDIOVASCULAR RISK <40 mg/dl - HIGH CARDIOVASCULAR RISK Normal [facility] Comment on above: Performed By: #### L IPID, TSH ####[facility] Ifjahszruq8711 [place], [place] [address]Cv. Purvilan Lawrence LDL CALC NORMAL SEE BELOW Normal [facility] Comment on above: Result Comment: <100 mg/dl OPTIMAL 100 - 129 mg/dl NEAR OR ABOVE OPTIMAL 130 - 159 mg/dl BORDERLINE HIGH 160 - 189 mg/dl HIGH >190 mg/dl VERY HIGH Performed By: #### L IPID, TSH ####[facility] Ywzdtbxajh7748 [place] [phone]. Purvilan Lawrence Triglyceride [Mass/Vol] 92 mg/dL Normal <=150 [facility] Comment on above: Performed By: #### L IPID, TSH ####[facility] Tpcitylpee4499 [place] [phone]. Purviedith Branden VLDL CALC 18.4 mg/dL Normal [facility] Comment on above: Performed By: #### L IPID, TSH ####[facility] Ixkplimgcl1757 [place] [address]Dr. Flaco Lawrence PROF CHEM 8 (BAS METB)on Anion gap [Moles/Vol] 13.0 mmol/L Normal [facility] Comment on above: Performed By: #### B YEHUDA, HSTROPN ####[facility] Lakewlaylv0966 [place] [address]Dr. Flaco Lawrence Calcium [Mass/Vol] 9.3 mg/dL Normal 8.5-10.1 [facility] Comment on above: Performed By: #### B YEHUDA, HSTROPN ####[facility] Rlzamnnpim[address] [place], [place] [address]Dr. Flaco Lawrence Chloride [Moles/Vol] 101 mmol/L Normal 98-107 [facility] Comment on above: Performed By: #### B YEHUDA, HSTROPN ####[facility] Kpeamvibvk43[address] [place], [place] [address]Dr. Flaco Lawrence CO2 [Moles/Vol] 27.7 mmol/L Normal 21.0-32.0 [facility] Comment on above: Performed By: #### B YEHUDA, HSTROPN ####[facility] Jbfwsnjdzj96[address] [place], [place] [address]Dr. Flaco Lawrence Creatinine [Mass/Vol] 1.75 mg/dL Critically high 0.70-1.30 [facility] Comment on above: Performed By: #### B YEHUDA, HSTROPN ####[facility] Ejadmhspss34[address] [place], [place] [address]Dr. Flaco Lawrence EGFR-AF BARBADIAN 47 mL/min/1.73m2 Critically low >=60 [facility] Comment on above: Performed By: #### B YEHUDA, HSTROPN ####[facility] Zwogcgxjgg304[address] [place], [place] [address]Dr. Flaco Lawrence EGFR-NON AF BARBADIAN 39 mL/min/1.73m2 Critically low >=60 [facility] Comment on above: Performed By: #### B YEHUDA, HSTROPN ####[facility] Zbiumkjwdv0442 [place] [address]Dr. Flaco Lawrence Glucose [Mass/Vol] 97 mg/dL Normal 74-106 [facility] Comment on above: Performed By: #### B YEHUDA, HSTROPN ####[facility] Ndqigyndra8290 [place] [address]Dr. Flaco Lawrence Potassium [Moles/Vol] 3.7 mmol/L Normal 3.5-5.1 [facility] Comment on above: Performed By: #### B YEHUDA, HSTROPN ####[facility] Hadbkjddoz5208 [place] [address]Dr. Flaco Lawrence Sodium [Moles/Vol] 138 mmol/L Normal 136-145 [facility] Comment on above: Performed By: #### B YEHUDA, HSTROPN ####[facility] Nopfizxbni249[address] [place], [place] [address]Dr. Flaco Lawrence Urea nitrogen [Mass/Vol] 13.0 mg/dL Normal 7.0-18.0 [facility] Comment on above: Performed By: #### B YEHUDA, HSTROPN ####[facility] Ypqevnwdsx[address] [place], [place] [address]Dr. Flaco Lawrence Urea nitrogen/Creatinine [Mass ratio] 7.4 mg/mg Normal [facility] Comment on above: Performed By: #### B YEHUDA, HSTROPN ####[facility] Fglnrfvlgh[address] [place], [place] [address]Dr. Flaco Lawrence PROTIMEon 11-11-2022 INR Coag (PPP) [Relative time] 1.05 {INR} Normal [facility] Comment on above: Performed By: #### P T, PTT ####[facility] Lxzembsehj[address] [place], [place] [address]Dr. Flaco Lawrence INR GUIDELINES SEE BELOW Normal [facility] Comment on above: Result Comment: RON RED INR: 2.0 - 3.0 CONDITIONS NOT LISTED BELOW 2.5 - 3.5 FOR PROSTHETIC HEART VALVE REPLACEMENT 2.5 - 3.5 RECURRENT THROMBOSIS Performed By: #### P T, PTT ####[facility] Jukaluoljk20[address] [place] [address]Dr. Flaco Lawrence PT Coag (PPP) [Time] 11.1 s Normal 9.0-11.6 [facility] Comment on above: Performed By: #### P T, PTT ####[facility] Wldxdzhbau4362 [place] [address]Dr. Flaco Lawrence PTTon 11-11-2022 aPTT Coag (Bld) [Time] 34.3 s Normal 22.3-36.2 [facility] Comment on above: Performed By: #### P T, PTT ####[facility] Aaaryfqjzn8819 [place] [address]Dr. Flaco Lawrence TROPONIN, HIGH SENSITIVITYon 11-11-2022 HSTROP 4.7 pg/mL Normal 4.0-76.1 [facility] Comment on above: Result Comment: CUT- OFF POINTS HAVE BEEN ESTABLISHED BASED ON THE FOURTH UNIVERSAL DEFINITIONS OF MYOCARDIALINFARCTION. THE UPPER REFERENCE LIMIT (URL) OF TROPONIN, DEFINED THE 99TH PERCENTILE OFcTnI DISTRIBUTION IN A REFERENCE POPULATION, HAS BEEN CONFIRMED THE DECISION THRESHOLDFOR AL DIAGNOSIS. Performed By: #### B MP, HSTROPN ####[facility] Xpvpnrqidy7146 [place] [address]Dr. Flaco Lawrence TSHon 11-11-2022 TSH 0.829 uIU/mL Normal 0.358-3.740 [facility] Comment on above: Performed By: #### L IPID, TSH ####[facility] Bpvvrzfbsv7370 [place] [address]Dr. Flaco Lawrence XR CHEST 1 Von 11-11-2022 XR CHEST 1 V Normal [facility] XR FOOT RT MIN 3 VIEWSon XR FOOT RT MIN 3 VIEWS Normal [facility] XR FOOT RT MIN 3 VIEWSon XR FOOT RT MIN 3 VIEWS Normal [facility] POINT OF CARE GLUCOSEon 12-2 Glucose [Mass/Vol] 87 mg/dL Normal 74-106 [facility] Comment on above: Performed By: #### P OCGLUC ####[facility] Bslqonkjnd7[address] [place], [place] [address]Si. Flaco Lawrence Glucose [Mass/Vol] 94 mg/dL Normal 74-106 [facility] Comment on above: Performed By: #### P OCGLUC ####[facility] Pcklrvakhy4490 [place], [place] [address]Xb. Flaco Lawrence XR FOOT RT 2Von 09-25-2022 XR FOOT RT 2V Normal [facility] XR FOOT RT MIN 3 VIEWSon XR FOOT RT MIN 3 VIEWS Normal [facility] XR WRIST RT MIN 3 Von 2021 XR WRIST RT MIN 3 V Normal [facility] Covid-19 PCR (CVDTB)on 08-29 SARS-CoV-2 (COVID-19) RNA MARCO ANTONIO+probe Ql (Unsp spec) Not detected Normal NOT DETECTED [facility] Comment on above: Result Comment: This test is not yet approved or cleared by the [place] FDA. When there are no FDA-approved or cleared tests available, and other criteria are met, FDA can make tests available under an emergency access mechanism called an Emergency Use Authorization (EUA). The EUA for this test is supported by the [place] of Health and Human Service's (HHS's) declaration [...] with SARS-CoV-2. Performed By: #### C VDTBH ####[facility] Cdnjiblpco0071 [place], [place] [address]Bx. Flaco Lawrence PROF CHEM 8 (BAS METB)on Anion gap [Moles/Vol] 10.4 mmol/L Normal [facility] Comment on above: Performed By: #### B MP ####[facility] Dzaaaotnxn5896 [place] [address]Dr. Flaco Lawrence Calcium [Mass/Vol] 8.7 mg/dL Normal 8.5-10.1 [facility] Comment on above: Performed By: #### B MP ####[facility] Qkggwcochs8127 [place] [address]Dr. Flaco Lawrence Chloride [Moles/Vol] 104 mmol/L Normal 98-107 [facility] Comment on above: Performed By: #### B MP ####[facility] Mtokesftzn[address] [place], [place] [address]Dr. Flaco Lawrence CO2 [Moles/Vol] 27.2 mmol/L Normal 21.0-32.0 [facility] Comment on above: Performed By: #### B MP ####[facility] Qxhrrfqtei[address] [place], [place] [address]Dr. Flaco Lawrence Creatinine [Mass/Vol] 2.02 mg/dL Critically high 0.70-1.30 [facility] Comment on above: Performed By: #### B MP ####[facility] Cvplqnrorq[address] [place], [place] [address]Dr. Flaco Lawrence EGFR-AF BARBADIAN 40 mL/min/1.73m2 Critically low >=60 [facility] Comment on above: Performed By: #### B MP ####[facility] Byqqiqzfmh754[address] [place], [place] [address]Dr. Flaco Branden EGFR-NON AF BARBADIAN 33 mL/min/1.73m2 Critically low >=60 [facility] Comment on above: Performed By: #### B MP ####[facility] Zzmhrlmkct[address] [place], [place] [address]Dr. Purviedith Lawrence Glucose [Mass/Vol] 91 mg/dL Normal 74-106 [facility] Comment on above: Performed By: #### B MP ####[facility] Ekdoleeqok6[address] [place], [place] [address]Dr. Purviedith Branden Potassium [Moles/Vol] 3.6 mmol/L Normal 3.5-5.1 [facility] Comment on above: Performed By: #### B MP ####[facility] Oykhcrjirb[address] [place], [place] [address]Dr. Flaco Branden Sodium [Moles/Vol] 138 mmol/L Normal 136-145 [facility] Comment on above: Performed By: #### B MP ####[facility] Bvyomtkpjq[address] [place], [place] [address]Dr. Flaco Branden Urea nitrogen [Mass/Vol] 14.0 mg/dL Normal 7.0-18.0 [facility] Comment on above: Performed By: #### B MP ####[facility] Wztwfcndiy866[address] [place], [place] [address]Dr. Purviedith Branden Urea nitrogen/Creatinine [Mass ratio] 6.9 mg/mg Normal [facility] Comment on above: Performed By: #### B MP ####[facility] Rlvuiriheg8398[address] [place], [place] [address]Dr. Flaco Branden CBC AUTO DIFFon 08-15-2022 BASO # 0.1 103/ul Normal 0.0-0.1 [facility] Comment on above: Performed By: #### C BC ####[facility] Wvkwdmsezd800[address] [place], [place] [address]Dr. Flaco Branden Basophils/100 WBC (Bld) 0.8 % Normal 0.2-2.0 [facility] Comment on above: Performed By: #### C BC ####[facility] Nbagrcoclp334[address] [place], [place] [address]Dr. Flaco Branden EO # 0.1 103/ul Normal 0.0-0.7 [facility] Comment on above: Performed By: #### C BC ####[facility] Goyubzffct1023[address] [place], [place] [address]Dr. Flaco Lawrence Eosinophils/100 WBC (Bld) 1.4 % Normal 0.9-7.0 [facility] Comment on above: Performed By: #### C BC ####[facility] Eviavdhagq9529[address] [place], [place] [address]Dr. Purviedith Lawrence Erythrocyte distribution width (RBC) [Ratio] 13.6 % Normal 11.0-15.0 [facility] Comment on above: Performed By: #### C BC ####[facility] [address] [place] [address]DrJeramie Lawrence Hematocrit (Bld) [Volume fraction] 46.2 % Normal 42.0-54.0 [facility] Comment on above: Performed By: #### C BC ####[facility] Svjzogwoyf84[address] [place], [place] [address]DrJeramie Lawrence Hemoglobin (Bld) [Mass/Vol] 15.2 g/dL Normal 14.0-18.0 [facility] Comment on above: Performed By: #### C BC ####[facility] Muhzkbdzhx4058[address] [place], [place] [address]DrJeramie Lawrence IG # 0.02 10e3/ul Normal 0.00-0.03 [facility] Comment on above: Performed By: #### C BC ####[facility] Poburmjsin396[address] [place], [place] [address]DrJeramie Lawrence IG % 0.2 % Normal 0.0-0.5 [facility] Comment on above: Performed By: #### C BC ####[facility] Hixafvkffw019[address] [place], [place] [address]DrJeramie Lawrence LYMPH # 1.8 103/ul Normal 1.2-3.8 [facility] Comment on above: Performed By: #### C BC ####[facility] Exbviailjz0814[address] [place], [place] [address]DrJeramie Lawrence Lymphocytes/100 WBC (Bld) 19.2 % Critically low 20.5-60.0 [facility] Comment on above: Performed By: #### C BC ####[facility] Glkoavogjj644248 [address] [place], [place] [address]DrJeramie Lawrence MANUAL DIFF REQ NO Normal [facility] Comment on above: Performed By: #### C BC ####[facility] Tamvbkywyv101[address] [place], [place] [address]DrJeramie Lawrence MCH (RBC) [Entitic mass] 28.6 pg Normal 25.9-34.0 [facility] Comment on above: Performed By: #### C BC ####[facility] Pip[address]ktte[address] [place] [address]Dr. Flaco Lawrence MCHC (RBC) [Mass/Vol] 32.9 g/dL Normal 29.9-35.2 [facility] Comment on above: Performed By: #### C BC ####[facility] Oxfsrcxqbf9226 [place] [address]DrJeramie Lawrence MCV (RBC) [Entitic vol] 86.8 fL Normal 80.0-94.0 [facility] Comment on above: Performed By: #### C BC ####[facility] Bdfgjqaenu1935[address] [place], [place] [address]DrJeramie Lawrence MONO # 0.8 103/ul Normal 0.3-0.8 [facility] Comment on above: Performed By: #### C BC ####[facility] Kszqbobkev317[address] [place], [place] [address]Dr. Flaco Lawrence Monocytes/100 WBC (Bld) 8.7 % Normal 1.7-12.0 [facility] Comment on above: Performed By: #### C BC ####[facility] Ewoyvwrazl526[address] [place], [place] [address]DrJeramie Lawrence NEUT # 6.5 103/ul Normal 1.4-6.5 [facility] Comment on above: Performed By: #### C BC ####[facility] Mhphwmefha119[address] [place], [place] [address]Dr. Flaco Lawrence Neutrophils/100 WBC (Bld) 69.7 % Normal 43.0-75.0 [facility] Comment on above: Performed By: #### C BC ####[facility] Jezcqkxscz4623[address] [place], [place] [address]DrJeramie Lawrence Platelet mean volume (Bld) [Entitic vol] 9.8 fL Normal 9.5-13.5 [facility] Comment on above: Performed By: #### C BC ####[facility] Bkvttkqeum173648 [address] [place], [place] [address]Dr. Flaco Lawrence PLT 503 103/ul Critically high 150-450 [facility] Comment on above: Performed By: #### C BC ####[facility] Pssfcecvji[address] [place] [address]Dr. Flaco Lawrence RBC 5.32 106/ul Normal 4.70-6.10 [facility] Comment on above: Performed By: #### C BC ####[facility] Eeihzwwykk568[address] [place], [place] [address]Dr. Flaco Lawrence WBC 9.3 103/ul Normal 4.0-11.0 [facility] Comment on above: Performed By: #### C BC ####[facility] Icisgrjpap4788[address] [place], [place] [address]Dr. Flaco Branden PROTIMEon 08-15-2022 INR Coag (PPP) [Relative time] 1.73 {INR} Normal [facility] Comment on above: Performed By: #### P TT, PT ####[facility] Nxxlblcviy349[address] [place], [place] [address]Dr. Flaco Lawrence INR GUIDELINES SEE BELOW Normal [facility] Comment on above: Result Comment: RON RED INR: 2.0 - 3.0 CONDITIONS NOT LISTED BELOW 2.5 - 3.5 FOR PROSTHETIC HEART VALVE REPLACEMENT 2.5 - 3.5 RECURRENT THROMBOSIS Performed By: #### P TT, PT ####[facility] Trsfvzzfyj916[address] [place], [place] [address]Dr. Flaco Lawrence PT Coag (PPP) [Time] 18.0 s Critically high 9.0-11.6 [facility] Comment on above: Performed By: #### P TT, PT ####[facility] Syfryqcaxk316[address] [place], [place] [address]Dr. Flaco Branden PTTon 08-15-2022 aPTT Coag (Bld) [Time] 34.8 s Normal 22.3-36.2 [facility] Comment on above: Performed By: #### P TT, PT ####[facility] Izqiklmwpj286[address] [place], [place] [address]Dr. Flaco Branden CBC AUTO DIFFon 08-02-2022 BASO # 0.0 103/ul Normal 0.0-0.1 [facility] Comment on above: Performed By: #### C BC ####[facility] Nqmanojcxv40[address] [place] [address]Dr. Flaco Branden Basophils/100 WBC (Bld) 0.2 % Normal 0.2-2.0 [facility] Comment on above: Performed By: #### C BC ####[facility] Capuujrpej3433[address] [place], [place] [address]Dr. Flaco Lawrence EO # 0.1 103/ul Normal 0.0-0.7 [facility] Comment on above: Performed By: #### C BC ####[facility] Plpsrhmjqq630348 [address] [place], [place] [address]Dr. Flaco Lawrence Eosinophils/100 WBC (Bld) 1.2 % Normal 0.9-7.0 [facility] Comment on above: Performed By: #### C BC ####[facility] Sjlerlndxf1078[address] [place], [place] [address]Dr. Purviedith Lawrence Erythrocyte distribution width (RBC) [Ratio] 13.2 % Normal 11.0-15.0 [facility] Comment on above: Performed By: #### C BC ####[facility] Yvfkpgudtl3633[address] [place], [place] [address]Dr. Purviedith Lawrence Hematocrit (Bld) [Volume fraction] 42.6 % Normal 42.0-54.0 [facility] Comment on above: Performed By: #### C BC ####[facility] Jdllkztljk997[address] [place], [place] [address]Dr. Flaco Lawrence Hemoglobin (Bld) [Mass/Vol] 14.0 g/dL Normal 14.0-18.0 [facility] Comment on above: Performed By: #### C BC ####[facility] Lhiflntomz044[address] [place], [place] [address]Dr. Flaco Lawrence IG # 0.05 10e3/ul Critically high 0.00-0.03 [facility] Comment on above: Performed By: #### C BC ####[facility] Wilksrvitq757[address] [place], [place] [address]DrJeramie Lawrence IG % 0.5 % Normal 0.0-0.5 [facility] Comment on above: Performed By: #### C BC ####[facility] Rvorcuiumn[address] [place] [address]DrJeramie Lawrence LYMPH # 1.5 103/ul Normal 1.2-3.8 [facility] Comment on above: Performed By: #### C BC ####[facility] [address]jtsr5[address] [place] [id number] Lawrence Lymphocytes/100 WBC (Bld) 13.5 % Critically low 20.5-60.0 [facility] Comment on above: Performed By: #### C BC ####[facility] Rgpxpfnqgz403[address] [place], [place] [address]DrJeramie Lawrence MANUAL DIFF REQ NO Normal [facility] Comment on above: Performed By: #### C BC ####[facility] Qqlahmzgsh245[address] [place], [place] [address]DrJeramie Lawrence MCH (RBC) [Entitic mass] 29.0 pg Normal 25.9-34.0 [facility] Comment on above: Performed By: #### C BC ####[facility] Ciahhivmpp213[address] [place], [place] [address]DrJeramie Lawrence MCHC (RBC) [Mass/Vol] 32.9 g/dL Normal 29.9-35.2 [facility] Comment on above: Performed By: #### C BC ####[facility] Qeykrtrooy[address] [place], [place] [address]DrJeramie Lawrence MCV (RBC) [Entitic vol] 88.2 fL Normal 80.0-94.0 [facility] Comment on above: Performed By: #### C BC ####[facility] Xwrtglurxc[address] [place], [place] [address]DrJeramie Lawrence MONO # 1.0 103/ul Critically high 0.3-0.8 [facility] Comment on above: Performed By: #### C BC ####[facility] Evowekgfkm7116[address] [place], [place] [address]DrJeramie Lawrence Monocytes/100 WBC (Bld) 8.8 % Normal 1.7-12.0 [facility] Comment on above: Performed By: #### C BC ####[facility] Pchpwonzqk55[address] [place] [address]DrJeramie Flaco Lawrence NEUT # 8.4 103/ul Critically high 1.4-6.5 [facility] Comment on above: Performed By: #### C BC ####[facility] Upzzgqicgq5944 [place] [address]DrJeramie Lojaedith Branden Neutrophils/100 WBC (Bld) 75.8 % Critically high 43.0-75.0 [facility] Comment on above: Performed By: #### C BC ####[facility] Qhizclejkc2778 [place] [address]DrJeramie Lawrence Platelet mean volume (Bld) [Entitic vol] 10.2 fL Normal 9.5-13.5 [facility] Comment on above: Performed By: #### C BC ####[facility] Taihspfysr65[address] [place] [address]DrJeramie Lawrence PLT 329 103/ul Normal 150-450 [facility] Comment on above: Performed By: #### C BC ####[facility] Khpqisqwmv754[address] [place], [place] [address]DrJeramie Lawrence RBC 4.83 106/ul Normal 4.70-6.10 [facility] Comment on above: Performed By: #### C BC ####[facility] Mdryxgbyyz804348 [address] [place], [place] [address]DrJeramie Lawrence WBC 11.0 103/ul Normal 4.0-11.0 [facility] Comment on above: Performed By: #### C BC ####[facility] Hozkdsnxly30[address] [place] [address]DrJeramie Lawrence PROF 14(COMP METB)on 022 Albumin [Mass/Vol] 2.6 g/dL Critically low 3.4-5.0 [facility] Comment on above: Performed By: #### C MP ####[facility] Pjojxhwvnp0938[address] [place], [place] [address]DrJeramie Sam Branden Albumin/Globulin [Mass ratio] 0.6 {ratio} Normal [facility] Comment on above: Performed By: #### C MP ####[facility] Ewdusxropr37[address] [place] [address]Dr. Flaco Branden ALP [Catalytic activity/Vol] 58 U/L Normal 46-116 [facility] Comment on above: Performed By: #### C MP ####[facility] Ptvwcvoutv5087 [place] [address]Dr. Flaco Branden ALT [Catalytic activity/Vol] 23 U/L Normal 16-63 [facility] Comment on above: Performed By: #### C MP ####[facility] Pozxunhkqr792[address] [place], [place] [address]Dr. Flaco Lawrence Anion gap [Moles/Vol] 14.9 mmol/L Normal [facility] Comment on above: Performed By: #### C MP ####[facility] Ojqnnwopkb6732[address] [place], [place] [address]Dr. Flaco Branden AST [Catalytic activity/Vol] 23 U/L Normal 15-37 [facility] Comment on above: Performed By: #### C MP ####[facility] Zfzduyvuza417[address] [place], [place] [address]Dr. Purviedith Branden Bilirubin [Mass/Vol] 0.6 mg/dL Normal 0.2-1.0 [facility] Comment on above: Performed By: #### C MP ####[facility] Glssactpro76[address] [place] [address]Dr. Flaco Lawrence Calcium [Mass/Vol] 8.8 mg/dL Normal 8.5-10.1 [facility] Comment on above: Performed By: #### C MP ####[facility] Gxodxrzjqn6340[address] [place], [place] [address]Dr. Flaco Lawrence Chloride [Moles/Vol] 104 mmol/L Normal 98-107 [facility] Comment on above: Performed By: #### C MP ####[facility] Btpwnpryfy9[address] [place] [address]Dr. Flaco Lawrence CO2 [Moles/Vol] 21.3 mmol/L Normal 21.0-32.0 [facility] Comment on above: Performed By: #### C MP ####[facility] Vcizdmydbe7398 [place] [address]Dr. Flaco Branden Creatinine [Mass/Vol] 2.08 mg/dL Critically high 0.70-1.30 [facility] Comment on above: Performed By: #### C MP ####[facility] Dmdbicxvmg5747 [place] [address]Dr. Purviedith Lawrence EGFR-AF BARBADIAN 38 mL/min/1.73m2 Critically low >=60 [facility] Comment on above: Performed By: #### C MP ####[facility] Zzizdxdkuv6579 [place] [address]Dr. Flaco Lawrence EGFR-NON AF BARBADIAN 32 mL/min/1.73m2 Critically low >=60 [facility] Comment on above: Performed By: #### C MP ####[facility] Xrepwfrqmf515[address] [place], [place] [address]Dr. Purviedith Lawrence Globulin (S) [Mass/Vol] 4.1 g/dL Normal [facility] Comment on above: Performed By: #### C MP ####[facility] Mbzjocnxpg5744[address] [place], [place] [address]Dr. Flaco Lawrence Glucose [Mass/Vol] 87 mg/dL Normal 74-106 [facility] Comment on above: Performed By: #### C MP ####[facility] Nknynbrptx714[address] [place], [place] [address]Dr. Flaco Lawrence Potassium [Moles/Vol] 4.2 mmol/L Normal 3.5-5.1 [facility] Comment on above: Performed By: #### C MP ####[facility] Yhxtotgast6314[address] [place], [place] [address]Dr. Flaco Lawrence Protein [Mass/Vol] 6.7 g/dL Normal 6.4-8.2 [facility] Comment on above: Performed By: #### C MP ####[facility] Brxwivzybz8727[address] [place], [place] [address]Dr. Flaco Lawrence Sodium [Moles/Vol] 136 mmol/L Normal 136-145 [facility] Comment on above: Performed By: #### C MP ####[facility] Mlyccmyhwc511348 [address] [place], [place] [address]Dr. Flaco Lawrence Urea nitrogen [Mass/Vol] 32.0 mg/dL Critically high 7.0-18.0 [facility] Comment on above: Performed By: #### C MP ####[facility] Pwqpqbejqo411648 [address] [place], [place] [address]Dr. Flaco Lawrence Urea nitrogen/Creatinine [Mass ratio] 15.4 mg/mg Normal [facility] Comment on above: Performed By: #### C MP ####[facility] Gbdxqfbvzq8517[address] [place], [place] [address]Dr. Flaco Lawrence CBC AUTO DIFFon 08-01-2022 BASO # 0.0 103/ul Normal 0.0-0.1 [facility] Comment on above: Performed By: #### C BC ####[facility] Oqrttbkbpm620[address] [place], [place] [address]Dr. Flaco Lawrence Basophils/100 WBC (Bld) 0.1 % Critically low 0.2-2.0 [facility] Comment on above: Performed By: #### C BC ####[facility] Miinxfojke775248 [address] [place], [place] [address]Dr. Flaco Lawrence EO # 0.0 103/ul Normal 0.0-0.7 [facility] Comment on above: Performed By: #### C BC ####[facility] Lnavxpkeqg670948 [address] [place], [place] [address]Dr. Flaco Lawrence Eosinophils/100 WBC (Bld) 0.3 % Critically low 0.9-7.0 [facility] Comment on above: Performed By: #### C BC ####[facility] Cozpcmzqzm884148 [address] [place], [place] [address]Dr. Flaco Lawrence Erythrocyte distribution width (RBC) [Ratio] 13.5 % Normal 11.0-15.0 [facility] Comment on above: Performed By: #### C BC ####[facility] Kwragnpxfw4778[address] [place], [place] [address]DrJeramie Lawrence Hematocrit (Bld) [Volume fraction] 42.0 % Normal 42.0-54.0 [facility] Comment on above: Performed By: #### C BC ####[facility] Wybqkqfqhr3838 [place] [address]Dr. Flaco Lawrence Hemoglobin (Bld) [Mass/Vol] 13.6 g/dL Critically low 14.0-18.0 [facility] Comment on above: Performed By: #### C BC ####[facility] Kwkniyuwmv7829[address] [place], [place] [address]Dr. Flaco Lawrence IG # 0.04 10e3/ul Critically high 0.00-0.03 [facility] Comment on above: Performed By: #### C BC ####[facility] Ofqhbodebn2917[address] [place], [place] [address]Dr. Flaco Lawrence IG % 0.4 % Normal 0.0-0.5 [facility] Comment on above: Performed By: #### C BC ####[facility] Eojlszmpsh68364[address] [place], [place] [address]DrJeramie Lawrence LYMPH # 1.0 103/ul Critically low 1.2-3.8 [facility] Comment on above: Performed By: #### C BC ####[facility] Tiqxnztjez0630[address] [place], [place] [address]DrJeramie Lawrence Lymphocytes/100 WBC (Bld) 9.3 % Critically low 20.5-60.0 [facility] Comment on above: Performed By: #### C BC ####[facility] Cqftusesxj733[address] [place], [place] [address]DrJeramie Lawrence MANUAL DIFF REQ NO Normal [facility] Comment on above: Performed By: #### C BC ####[facility] Wktxepgrvi938348 [address] [place], [place] [address]DrJeramie Lawrence MCH (RBC) [Entitic mass] 28.7 pg Normal 25.9-34.0 [facility] Comment on above: Performed By: #### C BC ####[facility] Pcjxapysve9588[address] [place], [place] [address]Dr. Flaco Lawrence MCHC (RBC) [Mass/Vol] 32.4 g/dL Normal 29.9-35.2 [facility] Comment on above: Performed By: #### C BC ####[facility] Zdqdrgkqdk9962 [place] [id number]. Flaco Branden MCV (RBC) [Entitic vol] 88.6 fL Normal 80.0-94.0 [facility] Comment on above: Performed By: #### C BC ####[facility] Qoibmitkmp8201 [place] [id number]. Flaco Lawrence MONO # 1.2 103/ul Critically high 0.3-0.8 [facility] Comment on above: Performed By: #### C BC ####[facility] Jiaymgfpga083148 [address] [place], [place] [address]Dr. Flaco Lawrence Monocytes/100 WBC (Bld) 11.0 % Normal 1.7-12.0 [facility] Comment on above: Performed By: #### C BC ####[facility] Xfebgfrzyd7938[address] [place], [place] [address]Dr. Flaco Lawrence NEUT # 8.4 103/ul Critically high 1.4-6.5 [facility] Comment on above: Performed By: #### C BC ####[facility] Xdbxoljbiw796[address] [place], [place] [address]Dr. Flaco Lawrence Neutrophils/100 WBC (Bld) 78.9 % Critically high 43.0-75.0 [facility] Comment on above: Performed By: #### C BC ####[facility] Csddjvgifq506[address] [place], [place] [address]Dr. Flaco Lawrence Platelet mean volume (Bld) [Entitic vol] 10.0 fL Normal 9.5-13.5 [facility] Comment on above: Performed By: #### C BC ####[facility] Rnjfcvxcnn[address] [place], [place] [address]Dr. Flaco Lawrence PLT 308 103/ul Normal 150-450 [facility] Comment on above: Performed By: #### C BC ####[facility] Bwnrfaiqxl9835 [place] [address]Dr. Purviedith Branden RBC 4.74 106/ul Normal 4.70-6.10 [facility] Comment on above: Performed By: #### C BC ####[facility] Frzlhbbnhg8855 [place] [address]Dr. Purviedith Branden WBC 10.7 103/ul Normal 4.0-11.0 [facility] Comment on above: Performed By: #### C BC ####[facility] Ogszdrcyeu464[address] [place], [place] [address]DrJeramie Lawrence PROF 14(COMP METB)on 022 Albumin [Mass/Vol] 2.6 g/dL Critically low 3.4-5.0 [facility] Comment on above: Performed By: #### C MP ####[facility] Wyflbvfklz0380[address] [place], [place] [address]Dr. Flaco Lawrence Albumin/Globulin [Mass ratio] 0.6 {ratio} Normal [facility] Comment on above: Performed By: #### C MP ####[facility] Omqfijtxks2811[address] [place], [place] [address]Dr. Flaco Lawrence ALP [Catalytic activity/Vol] 58 U/L Normal 46-116 [facility] Comment on above: Performed By: #### C MP ####[facility] Pathxhifgc718[address] [place], [place] [address]Dr. Flaco Lawrence ALT [Catalytic activity/Vol] 24 U/L Normal 16-63 [facility] Comment on above: Performed By: #### C MP ####[facility] Ourjyunyig845[address] [place], [place] [address]DrJeramie Lawrence Anion gap [Moles/Vol] 14.8 mmol/L Normal [facility] Comment on above: Performed By: #### C MP ####[facility] Kphuryowog634[address] [place], [place] [address]DrJeramie Lawrence AST [Catalytic activity/Vol] 33 U/L Normal 15-37 [facility] Comment on above: Performed By: #### C MP ####[facility] Syudduoxgy192[address] [place], [place] [address]Dr. Flaco Lawrence Bilirubin [Mass/Vol] 1.0 mg/dL Normal 0.2-1.0 [facility] Comment on above: Performed By: #### C MP ####[facility] Emurpsvixt4747 [place] [phone]. Flaco Lawrence Calcium [Mass/Vol] 8.7 mg/dL Normal 8.5-10.1 [facility] Comment on above: Performed By: #### C MP ####[facility] Huwcdrzsey[address] [place], [place] [address]Dr. Flaco Branden Chloride [Moles/Vol] 104 mmol/L Normal 98-107 [facility] Comment on above: Performed By: #### C MP ####[facility] Mymhnglclm2350[address] [place], [place] [address]Dr. Flaco Branden CO2 [Moles/Vol] 21.2 mmol/L Normal 21.0-32.0 [facility] Comment on above: Performed By: #### C MP ####[facility] Hgzlchzvkz1708[address] [place], [place] [address]Dr. Flaco Branden Creatinine [Mass/Vol] 1.90 mg/dL Critically high 0.70-1.30 [facility] Comment on above: Performed By: #### C MP ####[facility] Bpwapkudqz132[address] [place], [place] [address]Dr. Purviedith Branden EGFR-AF [place]IAN 43 mL/min/1.73m2 Critically low >=60 [facility] Comment on above: Performed By: #### C MP ####[facility] Vzzpnbdaru0998[address] [place], [place] [address]Dr. Purviedith Branden EGFR-NON AF [place] 35 mL/min/1.73m2 Critically low >=60 [facility] Comment on above: Performed By: #### C MP ####[facility] Dyuvjwndjc1597[address] [place], [place] [address]Dr. Flaco Lawrence Globulin (S) [Mass/Vol] 4.0 g/dL Normal [facility] Comment on above: Performed By: #### C MP ####[facility] Bleiffluvn2275[address] [place], [place] [address]Dr. Flaco Lawrence Glucose [Mass/Vol] 82 mg/dL Normal 74-106 [facility] Comment on above: Performed By: #### C MP ####[facility] Nxeqokjnor45[address] [place] [address]Dr. Flaco Lawrence Potassium [Moles/Vol] 4.0 mmol/L Normal 3.5-5.1 [facility] Comment on above: Performed By: #### C MP ####[facility] Etncyaclvr4711[address] [place], [place] [address]Dr. Flaco Lawrence Protein [Mass/Vol] 6.6 g/dL Normal 6.4-8.2 [facility] Comment on above: Performed By: #### C MP ####[facility] Zivnkqayzy5848[address] [place], [place] [address]Dr. Flaco Lawrence Sodium [Moles/Vol] 136 mmol/L Normal 136-145 [facility] Comment on above: Performed By: #### C MP ####[facility] Iylokoxwfd115[address] [place], [place] [address]Dr. Flaco Lawrence Urea nitrogen [Mass/Vol] 29.0 mg/dL Critically high 7.0-18.0 [facility] Comment on above: Performed By: #### C MP ####[facility] Hunuvrmpkr735[address] [place], [place] [address]Dr. Flaco Lawrence Urea nitrogen/Creatinine [Mass ratio] 15.3 mg/mg Normal [facility] Comment on above: Performed By: #### C MP ####[facility] Poyxieldxu798[address] [place], [place] [address]Dr. Flaco Lawrence CBC AUTO DIFFon 07-31-2022 BASO # 0.0 103/ul Normal 0.0-0.1 [facility] Comment on above: Performed By: #### C BC ####[facility] Epekmtzmuq050[address] [place], [place] [address]Dr. Flaco Lawrence Basophils/100 WBC (Bld) 0.2 % Normal 0.2-2.0 [facility] Comment on above: Performed By: #### C BC ####[facility] Lvvygttddm6[address] [place] [address]Dr. Flaco Lawrence EO # 0.0 103/ul Normal 0.0-0.7 [facility] Comment on above: Performed By: #### C BC ####[facility] Mljyfmunmq504[address] [place], [place] [address]Dr. Flaco Lawrence Eosinophils/100 WBC (Bld) 0.1 % Critically low 0.9-7.0 [facility] Comment on above: Performed By: #### C BC ####[facility] Vqlsiewems8[address] [place], [place] [address]Dr. Flaco Lawrence Erythrocyte distribution width (RBC) [Ratio] 13.7 % Normal 11.0-15.0 [facility] Comment on above: Performed By: #### C BC ####[facility] Wwzpculssq7[address] [place], [place] [address]Dr. Flaco Lawrence Hematocrit (Bld) [Volume fraction] 40.1 % Critically low 42.0-54.0 [facility] Comment on above: Performed By: #### C BC ####[facility] Fhfamcwzvt4867[address] [place], [place] [address]Dr. Flaco Lawrence Hemoglobin (Bld) [Mass/Vol] 13.1 g/dL Critically low 14.0-18.0 [facility] Comment on above: Performed By: #### C BC ####[facility] Wgvofsonuo77[address] [place], [place] [address]Dr. Flaco Lawrence IG # 0.03 10e3/ul Normal 0.00-0.03 [facility] Comment on above: Performed By: #### C BC ####[facility] Famabmfxuv[address] [place], [place] [address]Dr. Flaco Lawrence IG % 0.3 % Normal 0.0-0.5 [facility] Comment on above: Performed By: #### C BC ####[facility] Tvyaihdjat[address] [place], [place] [address]Dr. Flaco Lawrence LYMPH # 1.7 103/ul Normal 1.2-3.8 [facility] Comment on above: Performed By: #### C BC ####[facility] Xszjsjjkdm8094 [place] [address]Dr. Flaco Branden Lymphocytes/100 WBC (Bld) 16.2 % Critically low 20.5-60.0 [facility] Comment on above: Performed By: #### C BC ####[facility] Zmtmgqrolt9980 [place] [address]Dr. Flaco Branden MANUAL DIFF REQ NO Normal [facility] Comment on above: Performed By: #### C BC ####[facility] Quxasxrcbg6860 [place] [address]Dr. Flaco Branden MCH (RBC) [Entitic mass] 29.2 pg Normal 25.9-34.0 [facility] Comment on above: Performed By: #### C BC ####[facility] Zzlankprmw54[address] [place], [place] [address]Dr. Flaco Branden MCHC (RBC) [Mass/Vol] 32.7 g/dL Normal 29.9-35.2 [facility] Comment on above: Performed By: #### C BC ####[facility] Nacsucawtk7465 [place] [address]Dr. Purviedith Lawrence MCV (RBC) [Entitic vol] 89.3 fL Normal 80.0-94.0 [facility] Comment on above: Performed By: #### C BC ####[facility] Yqqfjgstsz5[address] [place], [place] [address]Dr. Flaco Lawrence MONO # 1.2 103/ul Critically high 0.3-0.8 [facility] Comment on above: Performed By: #### C BC ####[facility] Gndryvbplg2454 [place] [address]Dr. Purviedith Lawrence Monocytes/100 WBC (Bld) 11.1 % Normal 1.7-12.0 [facility] Comment on above: Performed By: #### C BC ####[facility] Toksjvwavo38[address] [place], [place] [address]Dr. Flaco Lawrence NEUT # 7.7 103/ul Critically high 1.4-6.5 [facility] Comment on above: Performed By: #### C BC ####[facility] Inpskhmcsx2210 [place] [phone]. Flaco Lawrence Neutrophils/100 WBC (Bld) 72.1 % Normal 43.0-75.0 [facility] Comment on above: Performed By: #### C BC ####[facility] Psunxmhddb7933 [place] [phone]. Flaco Lawrence Platelet mean volume (Bld) [Entitic vol] 9.9 fL Normal 9.5-13.5 [facility] Comment on above: Performed By: #### C BC ####[facility] Ikycizwdqw8825 [place] [phone]. Flaco Lawrence PLT 263 103/ul Normal 150-450 [facility] Comment on above: Performed By: #### C BC ####[facility] Zblvpqsciy3604 [place] [phone]. Flaco Lawrence RBC 4.49 106/ul Critically low 4.70-6.10 [facility] Comment on above: Performed By: #### C BC ####[facility] Wgkcoeyrwa8818 [place] [phone]. Purviedith Branden WBC 10.7 103/ul Normal 4.0-11.0 [facility] Comment on above: Performed By: #### C BC ####[facility] Enwqcyoowo8393 [place] [phone]. Flaco Lawrence PROF 14(COMP METB)on 022 Albumin [Mass/Vol] 2.8 g/dL Critically low 3.4-5.0 [facility] Comment on above: Performed By: #### C MP ####[facility] Fdhixaadtr7759 [place] [phone]. Flaco Lawrence Albumin/Globulin [Mass ratio] 0.8 {ratio} Normal [facility] Comment on above: Performed By: #### C MP ####[facility] Mzzdovdxbu2794 [place] [phone]. Flaco Branden ALP [Catalytic activity/Vol] 59 U/L Normal 46-116 [facility] Comment on above: Performed By: #### C MP ####[facility] Tmcadbwkaj2098 [place] [phone]. Flaco Lawrence ALT [Catalytic activity/Vol] 30 U/L Normal 16-63 [facility] Comment on above: Performed By: #### C MP ####[facility] Jvoxzvuiym5898 [place] [address]Dr. Flaco Lawrence Anion gap [Moles/Vol] 14.8 mmol/L Normal [facility] Comment on above: Performed By: #### C MP ####[facility] Khdbrpmesm2123 [place] [address]Dr. Flaco Lawrence AST [Catalytic activity/Vol] 56 U/L Critically high 15-37 [facility] Comment on above: Performed By: #### C MP ####[facility] Rxzgjteyyc26[address] [place], [place] [address]Dr. Flaco Lawrence Bilirubin [Mass/Vol] 0.8 mg/dL Normal 0.2-1.0 [facility] Comment on above: Performed By: #### C MP ####[facility] Bieipqzhvh55[address] [place], [place] [address]Dr. Flaco Lawrence Calcium [Mass/Vol] 9.0 mg/dL Normal 8.5-10.1 [facility] Comment on above: Performed By: #### C MP ####[facility] Siedgxquha478[address] [place], [place] [address]Dr. Flaco Lawrence Chloride [Moles/Vol] 106 mmol/L Normal 98-107 [facility] Comment on above: Performed By: #### C MP ####[facility] Aryoddgwwd3458 [place] [address]Dr. Flaco Lawrence CO2 [Moles/Vol] 24.7 mmol/L Normal 21.0-32.0 [facility] Comment on above: Performed By: #### C MP ####[facility] Gefusomagx9560[address] [place], [place] [address]Dr. Flaco Lawrence Creatinine [Mass/Vol] 2.12 mg/dL Critically high 0.70-1.30 [facility] Comment on above: Performed By: #### C MP ####[facility] Ryjcdfwgym2038 [place] [phone]. Flaco Lawrence EGFR-AF BARBADIAN 38 mL/min/1.73m2 Critically low >=60 [facility] Comment on above: Performed By: #### C MP ####[facility] Ijssdenxpe5716 [place] [phone]. Flaco Lawrence EGFR-NON AF BARBADIAN 31 mL/min/1.73m2 Critically low >=60 [facility] Comment on above: Performed By: #### C MP ####[facility] Vphqxscyao2902 [place] [phone]. Flaco Lawrence Globulin (S) [Mass/Vol] 3.7 g/dL Normal [facility] Comment on above: Performed By: #### C MP ####[facility] Cwqvouqrfi9632 [place] [address]Dr. Flaco Lawrence Glucose [Mass/Vol] 79 mg/dL Normal 74-106 [facility] Comment on above: Performed By: #### C MP ####[facility] Iihyrotaki0919 [place] [address]Dr. Flaco Lawrence Potassium [Moles/Vol] 3.5 mmol/L Normal 3.5-5.1 [facility] Comment on above: Performed By: #### C MP ####[facility] Njjjzjwxsg9235 [place] [address]Dr. Flaco Lawrence Protein [Mass/Vol] 6.5 g/dL Normal 6.4-8.2 [facility] Comment on above: Performed By: #### C MP ####[facility] Ahjfbhovht5167 [place] [address]Dr. Flaco Lawrence Sodium [Moles/Vol] 142 mmol/L Normal 136-145 [facility] Comment on above: Performed By: #### C MP ####[facility] Raprfnzdnl2635 [place] [address]Dr. Flaco Lawrence Urea nitrogen [Mass/Vol] 32.0 mg/dL Critically high 7.0-18.0 [facility] Comment on above: Performed By: #### C MP ####[facility] Wmcexkqycy5930 [place] [address]Dr. Flaco Lawrence Urea nitrogen/Creatinine [Mass ratio] 15.1 mg/mg Normal [facility] Comment on above: Performed By: #### C MP ####[facility] Yhlnbroprv908[address] [place], [place] [address]Dr. Flaco Lawrence T4on 07-31-2022 T4 [Mass/Vol] 7.10 ug/dL Normal 4.50-12.10 [facility] Comment on above: Performed By: #### T SH, T4 ####[facility] Yhgzplaoxa1112[address] [place], [place] [address]Dr. Flaco Lawrence TSHon 07-31-2022 TSH 0.871 uIU/mL Normal 0.358-3.740 [facility] Comment on above: Performed By: #### T SH, T4 ####[facility] Tgpbsrcfan744[address] [place], [place] [address]Dr. Flaco Lawrence VIT B12 AND FOLATEon 022 Cobalamin (Vitamin B12) [Mass/Vol] 130.0 pg/mL Critically low 193.0-986.0 [facility] Comment on above: Performed By: #### B 12FOL ####[facility] Gpnnwwgzhn6518[address] [place], [place] [address]Dr. Flaco Lawrence FOLATE 6.20 ng/mL Critically low 8.60-58.90 [facility] Comment on above: Performed By: #### B 12FOL ####[facility] Wmefkeluvz607[address] [place], [place] [address]Dr. Flaco Lawrence AMMONIAon 07-30-2022 Ammonia (P) [Mass/Vol] ug/dL Critically low 11-32 [facility] Comment on above: Performed By: #### A MM ####[facility] Aevqqcmync9544[address] [place], [place] [address]Dr. Flaco Lawrence CBC AUTO DIFFon 07-30-2022 BASO # 0.0 103/ul Normal 0.0-0.1 [facility] Comment on above: Performed By: #### C BC ####[facility] Zdrtdvocmk9683 [place] [address]Dr. Flaco Lawrence Basophils/100 WBC (Bld) 0.1 % Critically low 0.2-2.0 [facility] Comment on above: Performed By: #### C BC ####[facility] Axujxeamrr9101[address] [place], [place] [address]Dr. Flaco Lawrence EO # 0.0 103/ul Normal 0.0-0.7 [facility] Comment on above: Performed By: #### C BC ####[facility] Irahhlxqva7711[address] [place], [place] [address]Dr. Flaco Lawrence Eosinophils/100 WBC (Bld) 0.1 % Critically low 0.9-7.0 [facility] Comment on above: Performed By: #### C BC ####[facility] Qidzlutdvd538[address] [place], [place] [address]Dr. Flaco Lawrence Erythrocyte distribution width (RBC) [Ratio] 13.5 % Normal 11.0-15.0 [facility] Comment on above: Performed By: #### C BC ####[facility] Dutwwyotzu211[address] [place], [place] [address]Dr. Flaco Lawrence Hematocrit (Bld) [Volume fraction] 37.8 % Critically low 42.0-54.0 [facility] Comment on above: Performed By: #### C BC ####[facility] Hvfjhfgkoh046[address] [place], [place] [address]Dr. Flaco Lawrence Hemoglobin (Bld) [Mass/Vol] 12.8 g/dL Critically low 14.0-18.0 [facility] Comment on above: Performed By: #### C BC ####[facility] Sdcrmvtyhd7112[address] [place], [place] [address]Dr. Flaco Lawrence IG # 0.06 10e3/ul Critically high 0.00-0.03 The [facility] Comment on above: Performed By: #### C BC ####[facility] Vmsmfpedyo9057[address] [place], [place] [address]Dr. Flaco Lawrence IG % 0.4 % Normal 0.0-0.5 [facility] Comment on above: Performed By: #### C BC ####[facility] Mbgwzdenpa8946 [place], [place] [address]Kp. Flaco Branden LYMPH # 1.0 103/ul Critically low 1.2-3.8 [facility] Comment on above: Performed By: #### C BC ####[facility] Pmwlrkfutt4722 [place], [place] [address]Vp. Flaco Branden Lymphocytes/100 WBC (Bld) 7.0 % Critically low 20.5-60.0 [facility] Comment on above: Performed By: #### C BC ####[facility] Cnuvomttov2623 [place] [phone]. Purviedith Lawrence MANUAL DIFF REQ NO Normal [facility] Comment on above: Performed By: #### C BC ####[facility] Ewvofdrtpw9295 [place] [phone]. Flaco Branden MCH (RBC) [Entitic mass] 29.6 pg Normal 25.9-34.0 [facility] Comment on above: Performed By: #### C BC ####[facility] Vtgtbnwics7935 [place] [phone]. Flaco Branden MCHC (RBC) [Mass/Vol] 33.9 g/dL Normal 29.9-35.2 [facility] Comment on above: Performed By: #### C BC ####[facility] Tvqsqpinuo0562 [place] [phone]. Flaco Lawrence MCV (RBC) [Entitic vol] 87.3 fL Normal 80.0-94.0 [facility] Comment on above: Performed By: #### C BC ####[facility] Qnuknsmntm9610 [place] [phone]. Purviedith Lawrence MONO # 1.4 103/ul Critically high 0.3-0.8 [facility] Comment on above: Performed By: #### C BC ####[facility] Qpxofzihls5874 [place] [phone]. Purviedith Lawrence Monocytes/100 WBC (Bld) 9.2 % Normal 1.7-12.0 [facility] Comment on above: Performed By: #### C BC ####[facility] Hjtviemgle2802 [place], [place] [address]Du. Flaco Lawrence NEUT # 12.3 103/ul Critically high 1.4-6.5 [facility] Comment on above: Performed By: #### C BC ####[facility] Aczpdhdqdp4157 [place], [place] [address]Os. Flaco Lawrence Neutrophils/100 WBC (Bld) 83.2 % Critically high 43.0-75.0 [facility] Comment on above: Performed By: #### C BC ####[facility] Fbmdlmqtwx8258 [place] [phone]. Flaco Lawrence Platelet mean volume (Bld) [Entitic vol] 10.4 fL Normal 9.5-13.5 [facility] Comment on above: Performed By: #### C BC ####[facility] Kqbdchsqlk6846 [place] [phone]. Flaco Lawrence PLT 266 103/ul Normal 150-450 [facility] Comment on above: Performed By: #### C BC ####[facility] Pafheyhitg6070 [place] [phone]. Flaco Lawrence RBC 4.33 106/ul Critically low 4.70-6.10 [facility] Comment on above: Performed By: #### C BC ####[facility] Nrlsgumlyi2457 [place] [phone]. Flaco Lawrence WBC 14.8 103/ul Critically high 4.0-11.0 [facility] Comment on above: Performed By: #### C BC ####[facility] Yowfylzjwu3020 [place] [phone]. Flaco Lawrence CRPon 07-30-2022 CRP 12.2 mg/dL Critically high <=1.0 [facility] Comment on above: Performed By: #### C RP ####[facility] Chxeasjups8981 [place] [phone]. Flaco Lawrence CT FOOT RT WO CONon 07-30-[address] FOOT RT WO CON Normal The [facility] MRI BRAIN WO CONon 2 MRI BRAIN WO CON Normal [facility] PROF 14(COMP METB)on 022 Albumin [Mass/Vol] 2.7 g/dL Critically low 3.4-5.0 [facility] Comment on above: Performed By: #### C MP ####[facility] Vreenkzgcf7418 [place] [address]Dr. Flaco Lawrence Albumin/Globulin [Mass ratio] 0.7 {ratio} Normal [facility] Comment on above: Performed By: #### C MP ####[facility] Xqdosquuop6895 [place] [address]Dr. Flaco Lawrence ALP [Catalytic activity/Vol] 61 U/L Normal 46-116 [facility] Comment on above: Performed By: #### C MP ####[facility] Rekpdxtnav4043 [place] [address]Dr. Flaco Lawrence ALT [Catalytic activity/Vol] 27 U/L Normal 16-63 [facility] Comment on above: Performed By: #### C MP ####[facility] Lbrlxumisd9147[address] [place], [place] [address]Dr. Flaco Lawrence Anion gap [Moles/Vol] 16.1 mmol/L Normal [facility] Comment on above: Performed By: #### C MP ####[facility] Igswxqulph948648 [address] [place], [place] [address]Dr. Flaco Lawrence AST [Catalytic activity/Vol] 39 U/L Critically high 15-37 [facility] Comment on above: Performed By: #### C MP ####[facility] Eojxljpzcj556[address] [place], [place] [address]Dr. Flaco Lawrence Bilirubin [Mass/Vol] 1.1 mg/dL Critically high 0.2-1.0 [facility] Comment on above: Performed By: #### C MP ####[facility] Qjrevfpvtt811348 [address] [place], [place] [address]Dr. Flaco Lawrence Calcium [Mass/Vol] 9.0 mg/dL Normal 8.5-10.1 [facility] Comment on above: Performed By: #### C MP ####[facility] Tyyhwspoou7325[address] [place], [place] [address]Dr. Flaco Lawrence Chloride [Moles/Vol] 103 mmol/L Normal 98-107 [facility] Comment on above: Performed By: #### C MP ####[facility] Wyybvtyzgt1619 [place] [address]Dr. Flaco Lawrence CO2 [Moles/Vol] 21.8 mmol/L Normal 21.0-32.0 [facility] Comment on above: Performed By: #### C MP ####[facility] Phdfqfdgow3111 [place] [address]Dr. Flaco Lawrence Creatinine [Mass/Vol] 2.03 mg/dL Critically high 0.70-1.30 [facility] Comment on above: Performed By: #### C MP ####[facility] Kauldgvwhm0[address] [place], [place] [address]Dr. Flaco Lawrence EGFR-AF BARBADIAN 39 mL/min/1.73m2 Critically low >=60 [facility] Comment on above: Performed By: #### C MP ####[facility] Mfwtpxzpis67[address] [place], [place] [address]Dr. Flaco Lawrence EGFR-NON AF BARBADIAN 33 mL/min/1.73m2 Critically low >=60 [facility] Comment on above: Performed By: #### C MP ####[facility] Izquklcsxg709[address] [place], [place] [address]Dr. Flaco Branden Globulin (S) [Mass/Vol] 3.9 g/dL Normal [facility] Comment on above: Performed By: #### C MP ####[facility] Liapkudyir2049 [place] [address]Dr. Flaco Branden Glucose [Mass/Vol] 122 mg/dL Critically high 74-106 T [facility] [place] Comment on above: Performed By: #### C MP ####[facility] Eamvzjejyo455[address] [place], [place] [address]Dr. Flaco Branden Potassium [Moles/Vol] 2.9 mmol/L Critically low 3.5-5.1 [facility] Comment on above: Performed By: #### C MP ####[facility] Amnsgijvpa037[address] [place], [place] [address]Dr. Purviedith Lawrence Protein [Mass/Vol] 6.6 g/dL Normal 6.4-8.2 [facility] Comment on above: Performed By: #### C MP ####[facility] Vpoqfcclha7266 [place] [address]Dr. Flaco Lawrence Sodium [Moles/Vol] 139 mmol/L Normal 136-145 [facility] Comment on above: Performed By: #### C MP ####[facility] Hoqexxvcon5340[address] [place], [place] [address]Dr. Flaco Lawrence Urea nitrogen [Mass/Vol] 30.0 mg/dL Critically high 7.0-18.0 [facility] Comment on above: Performed By: #### C MP ####[facility] Cpzwpglipq3623[address] [place], [place] [address]Dr. Flaco Lawrence Urea nitrogen/Creatinine [Mass ratio] 14.8 mg/mg Normal [facility] Comment on above: Performed By: #### C MP ####[facility] Vkhulxzlht7749[address] [place], [place] [address]Dr. Flaco Lawrence URIC ACID SERUMon 07-30-2022 Urate [Mass/Vol] 8.8 mg/dL Critically high 3.5-7.2 [facility] Comment on above: Performed By: #### U DAVID ####[facility] Yvkiiekcsi818[address] [place], [place] [address]Dr. Flaco Lawrence AMMONIAon 07-29-2022 Ammonia (P) [Mass/Vol] ug/dL Critically low 11-32 [facility] Comment on above: Performed By: #### A MM ####[facility] Xrtbcjmbde3195 [place] [address]Dr. Flaco Lawrence BLOOD GASES BTYon 07-29-2022 02 MODE ROOM AIR Normal [facility] Comment on above: Performed By: #### A BG ####[facility] Jbtxzoremp8867[address] [place], [place] [address]Dr. Flaco Lawrence ALLENS TEST Positive Normal [facility] Comment on above: Performed By: #### A BG ####[facility] Ztkgwmwqed3215 [place] [address]Dr. Flaco Lawrence Base excess Calc (Bld) [Moles/Vol] -3.7000 mmol/L Critically low -2.0-2.0 [facility] Comment on above: Performed By: #### A BG ####[facility] Gnulwsdwur3606 [place] [address]Dr. Flaco Lawrence BIPAP PRESSURE Normal [facility] Comment on above: Performed By: #### A BG ####[facility] Dwxllyaqor462[address] [place], [place] [address]Dr. Flaco Lawrence CPAP Normal [facility] Comment on above: Performed By: #### A BG ####[facility] Dasxsngyna020[address] [place], [place] [address]Dr. Flaco Lawrence FIO2 Normal [facility] Comment on above: Performed By: #### A BG ####[facility] Btxtxbcnot9278[address] [place], [place] [address]Dr. Flaco Lawrence HCO3 (Bld) [Moles/Vol] 20.4 mmol/L Critically low 22.0-26. 0 [facility] Comment on above: Performed By: #### A BG ####[facility] Yznhridfwe7[address] [place], [place] [address]Dr. Flaco Lawrence LPM Normal [facility] Comment on above: Performed By: #### A BG ####[facility] Srwinubmlp0439[address] [place], [place] [address]Dr. Flaco Lawrence MINUTE VOLUME Normal [facility] Comment on above: Performed By: #### A BG ####[facility] Auqfndxrqv145[address] [place], [place] [address]Dr. Flaco Lawrence Oxygen (Bld) [Partial pressure] 73.0 mm[Hg] Critically low 80.0-100.0 [facility] Comment on above: Performed By: #### A BG ####[facility] Osjxyeprgi96[address] [place], [place] [address]Dr. Flaco Lawrence Oxygen saturation in Blood 95.5 % Normal 95.0-100.0 [facility] Comment on above: Performed By: #### A BG ####[facility] Xwsltmoeus6650 [place] [address]Dr. Flaco Lawrence PCO2 29.7 mmHg Critically low 35.0-45.0 [facility] Comment on above: Performed By: #### A BG ####[facility] Pfyibpposj0422 [place] [address]Dr. Flaco Lawrence PEEP [facility] Comment on above: Performed By: #### A BG ####[facility] Dllvbfssnu9414 [place] [address]Dr. Flaco Lawrence pH (Bld) 7.445 [pH] Normal 7.350-7.450 [facility] Comment on above: Performed By: #### A BG ####[facility] Ewwvcummxp0741 [place] [address]Dr. Flaco Lawrence PIP [facility] Comment on above: Performed By: #### A BG ####[facility] Lzsejtvveb1715 [place] [address]Dr. Flaco Lawrence PS [facility] Comment on above: Performed By: #### A BG ####[facility] Cpejtundgj8635 [place] [address]Dr. Flaco Lawrence PUNCTURE SITE RR [place] [facility] Comment on above: Performed By: #### A BG ####[facility] Qtebqcevkv6134 [place] [address]Dr. Flaco Lawrence RATE [facility] Comment on above: Performed By: #### A BG ####[facility] Kxauxnlofx4094 [place] [address]Dr. Flaco Lawrence VENT MODE [place] [facility] Comment on above: Performed By: #### A BG ####[facility] Qhuxsbvzgz3343 [place] [address]Dr. Flaco Lawrence VT [facility] Comment on above: Performed By: #### A BG ####[facility] Vdurvnlwbv2814 [place] [address]Dr. Flaco Lawrence CBC W MANUAL DIFFon 07-29-20 22 ATYPICAL LYMPH # Normal [facility] Comment on above: Performed By: #### C BCMAN ####[facility] Jhkbbobpis5358 [place] [phone]. Flaco Lawrence ATYPICAL LYMPH % Normal [facility] Comment on above: Performed By: #### C C[place] ####[facility] Qbqhnbmorq3652 [place] [phone]. Yilan Lawrence BAND # 0.6 103/ul Critically high 0.0-0.3 [facility] Comment on above: Performed By: #### C C[place]AND ####[facility] Kmknvpiiqc3503 [place] [address]Dr. Yilan Lawrence BAND % 4 % Normal 0-5 [facility] Comment on above: Performed By: #### C C[place]AND ####[facility] Mlnutkueqd7942 [place] [address]Dr. Flaco Lawrence BASOM # 0.00 103/ul Normal 0.00-0.10 [facility] Comment on above: Performed By: #### C C[place] ####[facility] Qbiuqgcnyo36[address] [place], [place] [address]Dr. Flaco Lawrence BASOM % 0.0 % Critically low 0.2-2.0 [facility] Comment on above: Performed By: #### C C[place]AND ####[facility] Vjpywnvznk9394 [place] [address]Dr. Flaco Lawrence BLAST # Normal [facility] Comment on above: Performed By: #### C C[place] ####[facility] Pjjzyufotl2085 [place] [address]Dr. Yiedith Lawrence BLAST % Normal [facility] Comment on above: Performed By: #### C C[place] ####[facility] Wonkyeonee4857 [place] [address]Dr. Flaco Lawrence CORRECTED WBC Normal 4.0-11.0 [facility] Comment on above: Performed By: #### C C[place] ####[facility] Fyzorsfaui1158 [place] [phone]. Flaco Lawrence EOS # 0.00 103/ul Normal 0.00-0.70 [facility] Comment on above: Performed By: #### C C[place] ####[facility] Whupmdkvra4744 [place], [place] [address]Tu. Flaco Lawrence EOS% 0.0 % Critically low 0.9-7.0 [facility] Comment on above: Performed By: #### C C[place] ####[facility] Psauiebzjm9316 [place], [place] [address]Lk. Flaco Lawrence HCT 43.8 % Normal 42.0-54.0 [facility] Comment on above: Performed By: #### C C[place] ####[facility] Bouombxhiv8758 [place], [place] [address]Zr. Flaco Lawrence HGB 14.6 g/dl Normal 14.0-18.0 [facility] Comment on above: Performed By: #### C [place] ####[facility] Hqrhjjraxc2054 [place] [phone]. Flaco Lawrence LYMPHM # 0.72 103/ul Critically low 1.20-3.80 [facility] Comment on above: Performed By: #### C C[place] ####[facility] Vnzecocgjl9168 [place], [place] [address]Em. Flaco Lawrence LYMPHM% 5.0 % Critically low 20.5-60.0 [facility] Comment on above: Performed By: #### C C[place] ####[facility] Jimmpdbyfe1870 [place], [place] [address]Ua. Flaco Lawrence MCH 29.6 pg Normal 25.9-34.0 [facility] Comment on above: Performed By: #### C C[place] ####[facility] Iutkkgwqho6242 [place], [place] [address]Le. Flaco Lawrence MCHC 33.3 g/dl Normal 29.9-35.2 [facility] Comment on above: Performed By: #### C C[place] ####[facility] Gaqfudkpfd7043 [place] [phone]. Flaco Lawrence MCV 88.7 fL Normal 80.0-94.0 [facility] Comment on above: Performed By: #### C [place] ####[facility] Phztfuqbsq7128 [place] [phone]. Purviedith Lawrence METAMYELOCYTE # Normal [facility] Comment on above: Performed By: #### C [place] ####[facility] Bkqbfoftwc0[address] [place] [phone]. Flaco Branden METAMYELOCYTE % Normal [facility] Comment on above: Performed By: #### C [place] ####[facility] Rmejmwpctw8367 [place] [phone]. Flaco Lawrence MONOM# 0.14 103/ul Critically low 0.30-0.80 [facility] Comment on above: Performed By: #### C [place] ####[facility] Lyizcbzobb[address] [place] [address]Dr. Flaco Lawrence MONOM% 1.0 % Critically low 1.7-12.0 [facility] Comment on above: Performed By: #### C [place] ####[facility] Uouygnqnwi6[address] [place], [place] [address]Dr. Flaco Lawrence MPV 10.6 fL Normal 9.5-13.5 [facility] Comment on above: Performed By: #### C [place] ####[facility] Mfixiwptbs36[address] [place], [place] [address]Dr. Flaco Lawrence MYELOCYTE # Normal [facility] Comment on above: Performed By: #### C [place] ####[facility] Sqhbdektan5599 [place] [phone]. Flaco Lawrence MYELOCYTE % Normal [facility] Comment on above: Performed By: #### C [place] ####[facility] Kjkrlwkudr3464 [place] [phone]. Flaco Lawrence NRBC Normal [facility] Comment on above: Performed By: #### C [place] ####[facility] [address]pcbyczlvx[address] [place], [place] [address]Dr. Flaco Lawrence PLT 267 103/ul Normal 150-450 [facility] Comment on above: Performed By: #### C [place] ####[facility] Jlfmgzpinq9865 [place] [phone]. Flaco Lawrence RBC 4.94 106/ul Normal 4.70-6.10 [facility] Comment on above: Performed By: #### C [place] ####[facility] Igmtignbih4548 [place] [phone] Lawrence RDW 13.6 % Normal 11.0-15.0 [facility] Comment on above: Performed By: #### C [place] ####[facility] Nrztukljsc9020 [place] [phone] Lawrence SEG # 12.96 103/ul Critically high 1.40-6.50 The [facility] Comment on above: Performed By: #### C [place] ####[facility] Ncmspujfnm0946 [place] [phone]. Flaco Lawrence SEG % 90.0 % Critically high 43.0-75.0 [facility] Comment on above: Performed By: #### C BCGAYATHRI ####[facility] Jyjpknettz6053 [place] [phone]. Flaco Larwence TOXIC GRANULATION 2+ Normal The [facility] Comment on above: Performed By: #### C [place] ####[facility] Lrdmmvbmnr7202 [place] [phone]. Flaco Lawrence WBC 14.4 103/ul Critically high 4.0-11.0 [facility] Comment on above: Performed By: #### C [place] ####[facility] Yjkhtwrtef7520 [place] [phone] Flaco Lawrence CT ABD/PELVIS WO CONon 07-29 CT ABD/PELVIS WO CON Normal [facility] CT HEAD WO CONon 07-29-2022 CT HEAD WO CON Normal [facility] CULTURE URINEon 07-29-2022 CULTURE URINE Culture Observations : NO GROWTH. Normal [facility] Comment on above: Performed By: #### U RCX ####[facility] Ulxnwdzlcs7051 [place] [phone] Flaco Lawrence ER URINE PROFILEon 2 Bilirubin Ql (U) MODERATE Abnormal NEGATIVE [facility] Comment on above: Performed By: #### E RUR, UMICRO ####[facility] Tbuabihlle[address] [place], [place] [address]Dr. Flaco Lawrence Clarity (U) CLEAR Normal CLEAR [facility] Comment on above: Performed By: #### EVERARDO RAMONRO ####[facility] Ucnrqphfyf320[address] [place], [place] [address]Dr. Flaco Lawrence Color (U) YELLOW Normal YELLOW [facility] Comment on above: Performed By: #### EVERARDO RAMONRO ####[facility] Spjkyiktzi2288[address] [place], [place] [address]Dr. Flaco Lawrence ERUAHD A micrscopic examination will be performed if indicated. Normal [facility] Comment on above: Performed By: #### EVETTE RAMON ####[facility] Aghcqxtcub8301[address] [place], [place] [address]Dr. Flaco Lawrence Glucose Ql (U) Negative Normal NEGATIVE [facility] Comment on above: Performed By: #### EVETTE RAMON ####[facility] Fakgtacbql9918[address] [place], [place] [address]Dr. Flaco Lawrence Hemoglobin Ql (U) MODERATE Abnormal NEGATIVE [facility] Comment on above: Performed By: #### EVETTE RAMON ####[facility] Wwuryhvzxw9828[address] [place], [place] [address]Dr. Flaco Lawrence Ketones Ql (U) 40 mg/dl Abnormal NEGATIVE [facility] Comment on above: Performed By: #### EVETTE RAMON ####[facility] Tflxowfwna685[address] [place], [place] [address]Dr. Flaco Lawrence LEUKOCYTES Negative Normal NEGATIVE [facility] Comment on above: Performed By: #### EVETTE RAMON ####[facility] Mmlrdjohug16[address] [place], [place] [address]Dr. Flaco Lawrence Nitrite Ql (U) Negative Normal NEGATIVE [facility] Comment on above: Performed By: #### EVERARDO RAMONRO ####[facility] Bdubmqlvqc3837[address] [place], [place] [address]Dr. Flaco Lawrence pH (U) 5.5 [pH] Normal 5-9 [facility] Comment on above: Performed By: #### EVETTE RAMON ####[facility] Lkggqfrqyg010[address] [place], [place] [address]Dr. Flaco Lawrence Protein (U) [Mass/Vol] 100 mg/dL Abnormal NEGAT LIANNE/ TRACE [facility] Comment on above: Performed By: #### EVETTE RAMON ####[facility] Kqzqzxdhcr3232[address] [place], [place] [address]Dr. Flaco Lawrence SPEC GRAVITY >=1.030 Abnormal 1.005-<=1.02 5 [facility] Comment on above: Performed By: #### EVETTE RAMON ####[facility] Bukvkrjxdw6760[address] [place], [place] [address]Dr. Flaco Lawrence UR MICRO IND INDICATED Normal [facility] Comment on above: Performed By: #### EVETTE RAMON ####[facility] Tlwfymujrk7413[address] [place], [place] [address]Dr. Flaco Lawrence Urobilinogen Qn (U) 1.0 {Tuan'U}/dL Normal 0.2 - 1. 0 [facility] Comment on above: Performed By: #### EVETTE RAMON ####[facility] Bwpcwvccrs[address] [place], [place] [address]Dr. Flaco Lawrence LACTATE/LACTIC ACIDon 2021 Lactate [Moles/Vol] 2.3 mmol/L Critically high 0.4-1.9 [facility] Comment on above: Performed By: #### L ACT ####[facility] Qgoyglhctc0616[address] [place], [place] [address]DrJeramie Lawrence PROF 14(COMP METB)on 022 Albumin [Mass/Vol] 2.9 g/dL Critically low 3.4-5.0 [facility] Comment on above: Performed By: #### C MP ####[facility] Qkvsqktdta8924[address] [place], [place] [address]Dr. Flaco Lawrence Albumin/Globulin [Mass ratio] 0.7 {ratio} Normal [facility] Comment on above: Performed By: #### C MP ####[facility] Hsbkzcomga8[address] [place] [address]Dr. Flaco Lawrence ALP [Catalytic activity/Vol] 78 U/L Normal 46-116 [facility] Comment on above: Performed By: #### C MP ####[facility] Rqjrulvzir7508 [place] [address]Dr. Flaco Lawrence ALT [Catalytic activity/Vol] 33 U/L Normal 16-63 [facility] Comment on above: Performed By: #### C MP ####[facility] Yeoqwxbwip3101 [place] [address]Dr. Purviedith Branden Anion gap [Moles/Vol] 14.5 mmol/L Normal [facility] Comment on above: Performed By: #### C MP ####[facility] Wlxuzdirvj5800[address] [place], [place] [address]Dr. Flaco Branden AST [Catalytic activity/Vol] 38 U/L Critically high 15-37 [facility] Comment on above: Performed By: #### C MP ####[facility] Mwoqeomkuu564[address] [place], [place] [address]Dr. Flaco Branden Bilirubin [Mass/Vol] 1.6 mg/dL Critically high 0.2-1.0 [facility] Comment on above: Performed By: #### C MP ####[facility] Ritkuxlucj1299 [place] [address]Dr. Purviedith Branden Calcium [Mass/Vol] 9.2 mg/dL Normal 8.5-10.1 [facility] Comment on above: Performed By: #### C MP ####[facility] Elivgymvos35[address] [place] [address]Dr. Flaco Lawrence Chloride [Moles/Vol] 104 mmol/L Normal 98-107 [facility] Comment on above: Performed By: #### C MP ####[facility] Dthkmsvpnk6329 [place] [address]Dr. Flaco Lawrence CO2 [Moles/Vol] 23.5 mmol/L Normal 21.0-32.0 [facility] Comment on above: Performed By: #### C MP ####[facility] Mvqmitcowm2321 [place] [address]Dr. Flaco Lawrence Creatinine [Mass/Vol] 1.95 mg/dL Critically high 0.70-1.30 [facility] Comment on above: Performed By: #### C MP ####[facility] Ojnqnltxdo27[address] [place] [address]Dr. Flaco Lawrence EGFR-AF BARBADIAN 41 mL/min/1.73m2 Critically low >=60 [facility] Comment on above: Performed By: #### C MP ####[facility] Brvmmdmypr7865 [place] [address]Dr. Flaco Lawrence EGFR-NON AF BARBADIAN 34 mL/min/1.73m2 Critically low >=60 [facility] Comment on above: Performed By: #### C MP ####[facility] Nehurxesbi5[address] [place], [place] [address]Dr. Flaco Lawrence Globulin (S) [Mass/Vol] 4.3 g/dL Normal [facility] Comment on above: Performed By: #### C MP ####[facility] Laqeptguwv699[address] [place], [place] [address]Dr. Flaco Lawrence Glucose [Mass/Vol] 169 mg/dL Critically high 74-106 [facility] Comment on above: Performed By: #### C MP ####[facility] Ahgzeooepa5[address] [place] [address]Dr. Flaco Lawrence Potassium [Moles/Vol] 4.0 mmol/L Normal 3.5-5.1 [facility] Comment on above: Performed By: #### C MP ####[facility] Qbqxsnokxa4915[address] [place], [place] [address]Dr. Flaco Lawrence Protein [Mass/Vol] 7.2 g/dL Normal 6.4-8.2 [facility] Comment on above: Performed By: #### C MP ####[facility] Vybpjosmsr6760 [place] [address]Dr. Flaco Lawrence Sodium [Moles/Vol] 138 mmol/L Normal 136-145 [facility] Comment on above: Performed By: #### C MP ####[facility] Vpsdztdzol3654 [place] [address]Dr. Purviedith Branden Urea nitrogen [Mass/Vol] 29.0 mg/dL Critically high 7.0-18.0 [facility] Comment on above: Performed By: #### C MP ####[facility] Akxtmbezet2288 [place] [address]Dr. Flaco Lawrence Urea nitrogen/Creatinine [Mass ratio] 14.9 mg/mg Normal [facility] Comment on above: Performed By: #### C MP ####[facility] Iubyeijhvs5667[address] [place], [place] [address]Dr. Flaco Lawrence URINE MICROSCOPIC ONLYon AMORPHOUS CRYSTALS MODERATE Normal [facility] Comment on above: Performed By: #### EVERARDO RAMONRO ####[facility] Ompjlfbhrm7083 [place] [address]Dr. Flaco Lawrence BACTERIA MODERATE Abnormal NONE SEEN [facility] Comment on above: Performed By: #### Riccardo SENA UMICRO ####[facility] Qeqnxjkzqf776[address] [place], [place] [address]Dr. Flaco Lawrence Bacteria identified Cx Nom (U) INDICATED Normal [facility] Comment on above: Performed By: #### Riccardo SENA UMICRO ####[facility] Hvvptxxwmb1567[address] [place], [place] [address]Dr. Flaco Lawrence CAST SEEN Abnormal NONE SEEN [facility] Comment on above: Performed By: #### JOHNATHAN RAMONICRO ####[facility] Xskmexmknv3998 [place] [address]Dr. Flaco Lawrence COARSE GRANULAR CAST RARE Normal [facility] Comment on above: Performed By: #### Riccardo SENA UMICRO ####[facility] Djgevrxlyn5900[address] [place], [place] [address]Dr. Flaco Lawrence Crystals LM Nom (Urine sed) SEEN Abnormal NONE SEEN [facility] Comment on above: Performed By: #### Riccardo SENA UMICRO ####[facility] Bttasnrxud801[address] [place], [place] [address]Dr. Flaco Lawrence Epithelial cells LM Ql (Urine sed) RARE Normal NONE SEEN /RARE [facility] Comment on above: Performed By: #### EVETTE RAMON ####[facility] Kqvgmfmibm8340[address] [place], [place] [address]Dr. Purviedith Lawrence MUCOUS TRACE Abnormal NONE SEEN [facility] Comment on above: Performed By: #### EVETTE RAMON ####[facility] Dgrxaelser3025 [place] [address]Dr. Flaco Lawrence RBC 0-2 Normal 0-2 [facility] Comment on above: Performed By: #### EVETTE RAMON ####[facility] Gvnrgdjvru2989[address] [place], [place] [address]Dr. Flaco Lawrence WBC 0-2 Abnormal NONE SEEN [facility] Comment on above: Performed By: #### EVETTE RAMON ####[facility] Ygpudhghyb2511[address] [place], [place] [address]Dr. Flaco Lawrence BNPon 07-28-2022 Natriuretic peptide B (Bld) [Mass/Vol] 258.0 pg/mL Normal <=900.0 [facility] Comment on above: Performed By: #### C MP, BNP, HSTROPN ####[facility] Wccgbdkjou[address] [place], [place] [address]Dr. Flaco Branden CBC W MANUAL DIFFon 07-28-20 22 ATYPICAL LYMPH # 0.21 103/ul Normal The [facility] Comment on above: Performed By: #### Corina GUTHRIE ####[facility] Iykxianexv3475[address] [place], [place] [address]Dr. Purviedith Branden ATYPICAL LYMPH % 1 % Normal [facility] Comment on above: Performed By: #### C [place] ####[facility] Amzfgxbxkj2660[address] [place], [place] [address]Dr. Flaco Lawrence BAND # 0.0 103/ul Normal 0.0-0.3 [facility] Comment on above: Performed By: #### C [place] ####[facility] Vwlgbbiazk812[address] [place], [place] [address]Dr. Flaco Lawrence BAND % 0 % Normal 0-5 [facility] Comment on above: Performed By: #### C BCMAN ####[facility] Mnjrixmnow3750 [place] [phone]. Flaco Lawrence BASOM # 0.00 103/ul Normal 0.00-0.10 [facility] Comment on above: Performed By: #### C BCMAN ####[facility] Tmczapimux8680 [place] [phone]. Flaco Lawrence BASOM % 0.0 % Critically low 0.2-2.0 [facility] Comment on above: Performed By: #### C BCMAN ####[facility] Nxxzfndcfg9977 [place] [address]Dr. Flaco Lawrence BLAST # Normal [facility] Comment on above: Performed By: #### C BCGAYATHRI ####[facility] Evmzeponck1904 [place] [address]Dr. Flaco Lawrence BLAST % Normal [facility] Comment on above: Performed By: #### C BCGAYATHRI ####[facility] Ekldzrobhq9087 [place] [address]Dr. Flaco Lawrence CORRECTED WBC Normal 4.0-11.0 [facility] Comment on above: Performed By: #### C BCGAYATHRI ####[facility] Iybtiulesy5749 [place] [address]Dr. Flaco Lawrence EOS # 0.00 103/ul Normal 0.00-0.70 [facility] Comment on above: Performed By: #### C BCGAYATHRI ####[facility] Rbnxantbum3195 [place] [address]Dr. Flaco Lawrence EOS% 0.0 % Critically low 0.9-7.0 [facility] Comment on above: Performed By: #### C BCGAYATHRI ####[facility] Htxyihkbbk5056 [place] [address]Dr. Flaco Lawrence HCT 48.8 % Normal 42.0-54.0 [facility] Comment on above: Performed By: #### C BCGAYATHRI ####[facility] Wixinfktvt5[address] [place], [place] [address]Dr. Flaco Lawrence HGB 16.2 g/dl Normal 14.0-18.0 [facility] Comment on above: Performed By: #### Corina GUTHRIE ####[facility] Pnwsvfgmxr9574 [place] [phone]. Flaco Lawrence LYMPHM # 0.62 103/ul Critically low 1.20-3.80 [facility] Comment on above: Performed By: #### Corina GUTHRIE ####[facility] Nvwikshadh1051 [place] [phone]. Flaco Lawrence LYMPHM% 3.0 % Critically low 20.5-60.0 [facility] Comment on above: Performed By: #### Corina GUTHRIE ####[facility] Drnofkmqhm2296 [place] [phone]. Flaco Lawrence MCH 29.5 pg Normal 25.9-34.0 [facility] Comment on above: Performed By: #### Corina GUTHRIE ####[facility] Bkndtrxxwt5112 [place] [phone]. Flaco Lawrence MCHC 33.2 g/dl Normal 29.9-35.2 [facility] Comment on above: Performed By: #### Corina GUTHRIE ####[facility] Wbrofmclxa5954 [place] [phone]. Flaco Lawrence MCV 88.7 fL Normal 80.0-94.0 [facility] Comment on above: Performed By: #### Corina GUTHRIE ####[facility] Wkolfwtjfp2658 [place] [phone]. Flaco Lawrence METAMYELOCYTE # Normal [facility] Comment on above: Performed By: #### Corina GUTHRIE ####[facility] Uzlmzdluda5090 [place] [phone]. Flaco Lawrence METAMYELOCYTE % Normal [facility] Comment on above: Performed By: #### Corina GUTHRIE ####[facility] Dkaxjyxhhi7426 [place] [phone]. Flaco Lawrence MONOM# 2.28 103/ul Critically high 0.30-0.80 [facility] Comment on above: Performed By: #### C [place] ####[facility] Zddvsrjxpt1254 [place], [place] [address]Tk. Flaco Lawrence MONOM% 11.0 % Normal 1.7-12.0 [facility] Comment on above: Performed By: #### C [place] ####[facility] Xxogwcpqoj2580 [place], [place] [address]Gp. Flaco Lawrence MPV 10.5 fL Normal 9.5-13.5 [facility] Comment on above: Performed By: #### C [place] ####[facility] Odsyrkgihq4463 [place] [phone]. Flaco Lawrence MYELOCYTE # Normal [facility] Comment on above: Performed By: #### Corina GUTHRIE ####[facility] Dcdnegqsrh1648 [place] [phone]. Flaco Lawrence MYELOCYTE % Normal [facility] Comment on above: Performed By: #### Corina GUTHRIE ####[facility] Rxleqjuhtj4873 [place] [phone]. Flaco Lawrence NRBC Normal [facility] Comment on above: Performed By: #### Corina GUTHRIE ####[facility] Rbdbamfqyl1635 [place] [phone]. Flaco Lawrence PLT 317 103/ul Normal 150-450 [facility] Comment on above: Performed By: #### Corina GUTHRIE ####[facility] Gqzchababv3882 [place] [phone]. Flaco Lawrence RBC 5.50 106/ul Normal 4.70-6.10 [facility] Comment on above: Performed By: #### C [place] ####[facility] Qqdybgepda0368 [place] [phone]. Flaco Lawrence RDW 13.6 % Normal 11.0-15.0 [facility] Comment on above: Performed By: #### C [place] ####[facility] Lfdchpisae8542 [place] [phone]. Purviedith Lawrence SEG # 17.59 103/ul Critically high 1.40-6.50 [facility] Comment on above: Performed By: #### C [place] ####[facility] Yexbnvqtji2908 [place], [place] [address]Bd. Flaco Lawrence SEG % 85.0 % Critically high 43.0-75.0 [facility] Comment on above: Performed By: #### C BCMAN ####[facility] Pvftdpjgar5087 [place], [place] [address]Ek. Flaco Lawrence WBC 20.7 103/ul Critically high 4.0-11.0 [facility] Comment on above: Performed By: #### C BCMAN ####[facility] Ppkpocylyl1846 [place], [place] [address]Bk. Flaco Lawrence CULTURE BLOODon 07-28-2022 Microscopic examination of blood, culture Culture Observations: NO GROWTH AT 5 DAYS. Normal [facility] Comment on above: Performed By: #### B LDCX2 ####[facility] [address]lfvqmch[address] [place], [place] [address]Dr. Flaco Lawrence Microscopic examination of blood, culture Culture Observations: NO GROWTH AT 5 DAYS. Normal [facility] Comment on above: Performed By: #### B LDCX1 ####[facility] Swlmeuvrgw436[address] [place], [place] [address]Dr. Flaco Lawrence [facility]30 SARS-CoV-2 (COVID-19) RNA MARCO ANTONIO+probe Ql (Unsp spec) Not detected Normal NOT DETECTED [facility] Comment on above: Result Comment: When [...] for this test is supported by the [place] of Health and Human Service's declaration that [...] be used). Performed By: #### C VDTBH ####[facility] Aukcvfevha3[address] [place], [place] [address]Dr. Flaco Lawrence INFLUENZA A AND B AGon 07-28 INFLUENZA A AG Negative Normal NEGATIVE SEE COMMENT [facility] Comment on above: Performed By: #### I NFLUAB ####[facility] Dctztihnkk6905[address] [place], [place] [address]Dr. Flaco Lawrence INFLUENZA B AG Negative Normal NEGATIVE SEE COMMENT [facility] Comment on above: Performed By: #### I NFLUAB ####[facility] Iafijfilfk439[address] [place], [place] [address]Dr. Flaco Lawrence INTERNAL CONTROLS Within Normal Limits Normal Wi thin Normal Limits [facility] Comment on above: Performed By: #### I NFLUAB ####[facility] Ixrbmywxni884[address] [place], [place] [address]Dr. Flaco Lawrence LACTATE/LACTIC ACIDon 2021 Lactate [Moles/Vol] 2.6 mmol/L Critically high 0.4-1.9 [facility] Comment on above: Performed By: #### L ACT ####[facility] Btelrrhpxm879[address] [place], [place] [address]Dr. Flaco Lawrence PROF 14(COMP METB)on 022 Albumin [Mass/Vol] 3.7 g/dL Normal 3.4-5.0 [facility] Comment on above: Performed By: #### C MP, BNP, HSTROPN ####[facility] Villuxhdmj77[address] [place], [place] [address]Dr. Flaco Lawrence Albumin/Globulin [Mass ratio] 0.8 {ratio} Normal [facility] Comment on above: Performed By: #### C MP, BNP, HSTROPN ####[facility] Lqkhtbvayg8277[address] [place], [place] [address]Dr. Flaco Lawrence ALP [Catalytic activity/Vol] 95 U/L Normal 46-116 [facility] Comment on above: Performed By: #### C MP, BNP, HSTROPN ####[facility] Fhxqhbejbs2755 [place] [address]Dr. Flaco Lawrence ALT [Catalytic activity/Vol] 38 U/L Normal 16-63 [facility] Comment on above: Performed By: #### C MP, BNP, HSTROPN ####[facility] Jfisgighds0255 [place] [address]Dr. Flaco Lawrence Anion gap [Moles/Vol] 16.8 mmol/L Normal [facility] Comment on above: Performed By: #### C MP, BNP, HSTROPN ####[facility] Aouhtppxon97[address] [place], [place] [address]Dr. Flaco Lawrence AST [Catalytic activity/Vol] 44 U/L Critically high 15-37 [facility] Comment on above: Performed By: #### C MP, BNP, HSTROPN ####[facility] Lnxcbfnfdu[address] [place], [place] [address]Dr. Flaco Lawrence Bilirubin [Mass/Vol] 2.7 mg/dL Critically high 0.2-1.0 [facility] Comment on above: Performed By: #### C MP, BNP, HSTROPN ####[facility] Cbcjklnkjz2914[address] [place], [place] [address]Dr. Flaco Lawrence Calcium [Mass/Vol] 9.8 mg/dL Normal 8.5-10.1 [facility] Comment on above: Performed By: #### C MP, BNP, HSTROPN ####[facility] Wyscgxqlfh904[address] [place], [place] [address]Dr. Flaco Lawrence Chloride [Moles/Vol] 102 mmol/L Normal 98-107 [facility] Comment on above: Performed By: #### C MP, BNP, HSTROPN ####[facility] Ujblwbzrjq3157[address] [place], [place] [address]Dr. Flaco Lawrence CO2 [Moles/Vol] 23.0 mmol/L Normal 21.0-32.0 [facility] Comment on above: Performed By: #### C MP, BNP, HSTROPN ####[facility] Cdqstcoaaz0648 [place] [address]Dr. Flaco Lawrence Creatinine [Mass/Vol] 2.22 mg/dL Critically high 0.70-1.30 [facility] Comment on above: Performed By: #### C MP, BNP, HSTROPN ####[facility] Drrvsccqjx0191 [place] [address]Dr. Flaco Lawrence EGFR-AF BARBADIAN 36 mL/min/1.73m2 Critically low >=60 [facility] Comment on above: Performed By: #### C MP, BNP, HSTROPN ####[facility] Lliopjickc1034 [place] [address]Dr. Flaco Lawrence EGFR-NON AF BARBADIAN 29 mL/min/1.73m2 Critically low >=60 [facility] Comment on above: Performed By: #### C MP, BNP, HSTROPN ####[facility] Clfokhzexm6[address] [place], [place] [address]Dr. Flaco Lawrence Globulin (S) [Mass/Vol] 4.7 g/dL Normal [facility] Comment on above: Performed By: #### C MP, BNP, HSTROPN ####[facility] Uekkplqbph109[address] [place], [place] [address]Dr. Flaco Lawrence Glucose [Mass/Vol] 145 mg/dL Critically high 74-106 [facility] Comment on above: Performed By: #### C MP, BNP, HSTROPN ####[facility] Dabvklipby8[address] [place], [place] [address]Dr. Flaco Lawrence Potassium [Moles/Vol] 3.8 mmol/L Normal 3.5-5.1 [facility] Comment on above: Performed By: #### C MP, BNP, HSTROPN ####[facility] Bpgztbvxwe7[address] [place], [place] [address]Dr. Flaco Lawrence Protein [Mass/Vol] 8.4 g/dL Critically high 6.4-8.2 [facility] Comment on above: Performed By: #### C MP, BNP, HSTROPN ####[facility] [address] [place] [address]Za. Flaco Lawrence Sodium [Moles/Vol] 138 mmol/L Normal 136-145 [facility] Comment on above: Performed By: #### C MP, BNP, HSTROPN ####[facility] Rcfkrscity0271 [place] [phone]. Flaco Lawrence Urea nitrogen [Mass/Vol] 29.0 mg/dL Critically high 7.0-18.0 [facility] Comment on above: Performed By: #### C MP, BNP, HSTROPN ####[facility] Ncfoesxrza1997 [place] [phone]. Flaco Lawrence Urea nitrogen/Creatinine [Mass ratio] 13.1 mg/mg Normal [facility] Comment on above: Performed By: #### C MP, BNP, HSTROPN ####[facility] [id number] [place] [address]Dr. Flaco Lawrence TROPONIN, HIGH SENSITIVITYon 07-28-2022 HSTROP 13.6 pg/mL Normal 4.0-76.1 [facility] Comment on above: Result Comment: CUT- OFF POINTS HAVE BEEN ESTABLISHED BASED ON THE FOURTH UNIVERSAL DEFINITIONS OF MYOCARDIALINFARCTION. THE UPPER REFERENCE LIMIT (URL) OF TROPONIN, DEFINED THE 99TH PERCENTILE OFcTnI DISTRIBUTION IN A REFERENCE POPULATION, HAS BEEN CONFIRMED THE DECISION THRESHOLDFOR AL DIAGNOSIS. Performed By: #### C MP, BNP, HSTROPN ####[facility] [address] [place] [address]Dr. Flaco Lawrence XR CHEST 1 Von 07-28-2022 XR CHEST 1 V Normal [facility] Covid-19 PCR (CVDTBH)on 06-29 SARS-CoV-2 (COVID-19) RNA MARCO ANTONIO+probe Ql (Unsp spec) Not detected Normal NOT DETECTED [facility] Comment on above: Result Comment: This test is not yet approved or cleared by the [place] FDA. When there are no FDA-approved or cleared tests available, and other criteria are met, FDA can make tests available under an emergency access mechanism called an Emergency Use Authorization (EUA). The EUA for this test is supported by the Local Truck Driver of Health and Human Service's (HHS's) declaration [...] with SARS-CoV-2. Performed By: #### C VDTB ####[facility] [address] [place], [place] [address]DrJeramie Lawrence PROF CHEM 8 (BAS METB)on Anion gap [Moles/Vol] 11.2 mmol/L Normal [facility] Comment on above: Performed By: #### B MP ####[facility] [address] [place], [place] [address]Dr. Flaco Lawrence Calcium [Mass/Vol] 8.7 mg/dL Normal 8.5-10.1 [facility] Comment on above: Performed By: #### B MP ####[facility] [address] [place], [place] [address]Dr. Flaco Lawrence Chloride [Moles/Vol] 108 mmol/L Critically high 98-107 [facility] Comment on above: Performed By: #### B MP ####[facility] [address] [place], [place] [address]Dr. Flaco Lawrence CO2 [Moles/Vol] 26.9 mmol/L Normal 21.0-32.0 [facility] Comment on above: Performed By: #### B MP ####[facility] [address] [place], [place] [address]Dr. Flaco Lawrence Creatinine [Mass/Vol] 1.77 mg/dL Critically high 0.70-1.30 [facility] Comment on above: Performed By: #### B MP ####[facility] [address] [place], [place] [address]DrJeramie Lawrence EGFR-AF BARBADIAN 46 mL/min/1.73m2 Critically low >=60 [facility] Comment on above: Performed By: #### B MP ####[facility] [address] [place] [address]Dr. Flaco Lawrence EGFR-NON AF BARBADIAN 38 mL/min/1.73m2 Critically low >=60 [facility] Comment on above: Performed By: #### B MP ####[facility] [address] [place] [address]Dr. Flaco Branden Glucose [Mass/Vol] 89 mg/dL Normal 74-106 [facility] Comment on above: Performed By: #### B MP ####[facility] [address]wt[address] [place] [address]Dr. Flaco Branden Potassium [Moles/Vol] 4.1 mmol/L Normal 3.5-5.1 [facility] Comment on above: Performed By: #### B MP ####[facility] [address] [place], [place] [address]Dr. Flaco Branden Sodium [Moles/Vol] 142 mmol/L Normal 136-145 [facility] Comment on above: Performed By: #### B MP ####[facility] [address] [place] [address]Dr. Flaco Branden Urea nitrogen [Mass/Vol] 15.0 mg/dL Normal 7.0-18.0 [facility] Comment on above: Performed By: #### B MP ####[facility] [address] [place] [address]Dr. Flaco Branden Urea nitrogen/Creatinine [Mass ratio] 8.5 mg/mg Normal [facility] Comment on above: Performed By: #### B MP ####[facility] [address] [place], [place] [address]Dr. Flaco Branden XR FOOT RT MIN 3 VIEWSon XR FOOT RT MIN 3 VIEWS Normal [facility] Vital Signs Date Time Vital Sign Value Performing Clinician Faci lity 08-05-2024 15:21-0500 Body height 177.8 cm Joe Jang PA-C Work Phone: [facility] [employer] [facility] 08-05-2024 15:21-0500 Body mass index (BMI) [Ratio] 20.81 kg/m2 Joe BOWENC Work Phone: [facility] [employer] [facility] 08-05-2024 15:21-0500 Body weight 65.77 kg Joe BURKS-C Work Phone: [facility] [employer] [facility] 08-05-2024 15:21-0500 Diastolic blood pressure 107 mm[Hg] Joe BURKS-C Work Phone: [facility] [employer] [facility] 08-05-2024 15:21-0500 Heart rate 66 /min Joe BURKS-C Work Phone: [facility] [employer] [facility] 08-05-2024 15:21-0500 Systolic blood pressure 153 mm[Hg] Joe BURKS-C Work Phone: [facility] [employer] [facility] 02-12-2024 13:46-0400 Body height 177.8 cm Mel Camacho MD Work Phone: [facility] [employer] [facility] 02-12-2024 13:46-0400 Body mass index (BMI) [Ratio] 20.09 kg/m2 Mel Camacho MD Work Phone: [facility] [employer] [facility] 02-12-2024 13:46-0400 Body weight 63.5 kg Mel Camacho MD Work Phone: [facility] [employer] [facility] 02-12-2024 13:46-0400 Diastolic blood pressure 76 mm[Hg] Mel Camacho MD Work Phone: [facility] [employer] [facility] 02-12-2024 13:46-0400 Heart rate 72 /min Mel Camacho MD Work Phone: [facility] [employer] [facility] 02-12-2024 13:46-0400 Systolic blood pressure 138 mm[Hg] Mel Camacho MD Work Phone: [facility] [employer] [facility] 09-18-2023 13:33-0500 Body height 170.2 cm Mel Camacho MD Work Phone: [facility] [employer] [facility] 09-18-2023 13:33-0500 Body mass index (BMI) [Ratio] 23.49 kg/m2 Mel Camacho MD Work Phone: [facility] [employer] [facility] 09-18-2023 13:33-0500 Body weight 68.04 kg Mel Camacho MD Work Phone: [facility] 09-18-2023 13:33-0500 Diastolic blood pressure 79 mm[Hg] Mel Camacho MD Work Phone: [facility] 09-18-2023 13:33-0500 Heart rate 61 /min Mel Camacho MD Work Phone: [facility] 09-18-2023 13:33-0500 Systolic blood pressure 121 mm[Hg] Mel Camacho MD Work Phone: [facility] 05-12-2023 13:51-0400 Blood Pressure Location Baljit DOSHI [facility] 05-12-2023 13:51-0400 Diastolic blood pressure 74 mm[Hg] Baljit DOSHI [facility] 05-12-2023 13:51-0400 Heart rate 70 /min Baljit DOSHI [facility] 05-12-2023 13:51-0400 Respiratory rate 16 /min Baljit DOSHI [facility] 05-12-2023 13:51-0400 Systolic blood pressure 120 mm[Hg] Baljit DOSHI [facility] [place] [facility] Encounters Encounter Date Encounter Type Care Provider Facility Start: 10-25-2024 End: 10-25-2024 ambulatory [facility] Start: 09-26-2024 End: 09-26-2024 ambulatory [facility] Start: 09-16-2024 End: 09-16-2024 ambulatory [facility] Start: 09-07-2024 End: 09-07-2024 Emergency department patient visit ORLANDO LARA [facility] Start: 09-05-2024 Evaluation and manag ement of inpatient RAMESH LAWRENCE [facility] Start: 09-05-2024 Evaluation and manag ement of inpatient NORBERTO RAY [facility] Start: 09-03-2024 Evaluation and manag ement of inpatient MAXX HALE [facility] Start: 09-03-2024 End: 09-05-2024 Evaluation and management of inpatient ODELL RODRÍGUEZ [facility] Start: 08-27-2024 End: 08-28-2024 Refill Joe Jang PA-C Work Phone: [facility] Comment on above: Mild dementia with a gitation, unspecified dementia type (CMS-HCC) Start: 08-19-2024 ambulatory SPENCER MENDOZA [facility] Start: 08-05-2024 End: 08-05-2024 Office outpatient visit 25 minutes Joe Jang PA-C Work Phone: [facility] Comment on above: Parkinsonism, unspec ified Parkinsonism type (CMS-HCC) (Primary Dx); Mild dementia with agitation, unspecified dementia type (CMS-HCC) Start: 08-05-2024 End: 08-05-2024 ambulatory LIBRADO Ash [facility] Start: 08-05-2024 ambulatory [facility] Start: 07-28-2024 ambulatory [facility] Start: 07-20-2024 ambulatory [facility] Start: 06-17-2024 ambulatory [facility] Start: 06-14-2024 End: 06-17-2024 Telephone encounter [facility] Comment on above: 08/19 Ann Start: 06-01-2024 End: 06-01-2024 ambulatory [facility] Start: 05-17-2024 End: 05-17-2024 Refill Jonathan Khai PAROLE OFFICER [facility] Comment on above: Parkinsonism, unspec ified Parkinsonism type (CMS-HCC) Start: 04-28-2024 ambulatory [facility] Start: 03-23-2024 ambulatory [facility] Start: 03-18-2024 ambulatory [facility] Start: 02-12-2024 End: 02-12-2024 Office outpatient visit [...] Prostate cancer (CMS-HCC) Start: 02-12-2024 End: 02-12-2024 [facility] Start: 01-20-2024 End: 01-21-2024 Refkortney Ridley CMA [facility] Comment on above: Chronic bilateral lo w back pain, unspecified whether sciatica present Start: 12-08-2023 End: 12-08-2023 ambulatory [facility] Start: 09-18-2023 End: 09-18-2023 Office outpatient [...] to medical condition Start: 09-18-2023 End: 09-18-2023 [facility] Start: 05-27-2023 End: 05-28-2023 ambulatory Baljit DOSHI Facility:CD:[id number] Start: 05-12-2023 End: 05-13-2023 ambulatory Baljit DOSHI Facility:[facility] Start: 05-12-2023 End: 05-12-2023 Patient encounter [...] Encounter for preprocedural laboratory examination KIMBERLI RAIN [facility] Start: 09-25-2022 End: 09-25-[address] FABIAN KENNEDY Facility:[facility] Start: 09-22-2022 End: 09-23-2022 ambulatory KIMBERLI RAIN Facility:[facility] Start: 09-22-2022 End: 09-23-2022 Encounter for preprocedural laboratory examination KIMBERLI RAIN Facility:[facility] Start: 09-15-2022 Encounter for preprocedural cardiovascular examination [facility] Start: 09-11-2022 End: 09-12-2022 ambulatory KIMBERLI RAIN Facility:[facility] Start: 08-15-2022 End: 08-15-2022 ambulatory JOVANI UMANZOR . Facility:[facility] Start: 07-30-2022 End: 08-02-2022 Evaluation and management of inpatient DR LIBRADO HELM . Facility:[facility] Start: 07-24-2022 End: 07-25-2022 ambulatory KIMBERLI RAIN Facility:[facility] Start: 07-17-2022 Encounter for preprocedural cardiovascular examination KIMBERLI Narvaez [facility] Start: 07-17-2022 Encounter for preprocedural laboratory examination [facility] Solange [facility] Start: 07-15-2022 End: 07-16-2022 ambulatory KIMBERLI Narvaez [facility] Facility:H1 Start: 07-15-2022 End: 07-16-2022 Encounter for preprocedural cardiovascular examination [facility] Solange [facility] Facility:[facility]1 Start: 06-18-2022 End: 06-19-[address] LIBRADO HELM . Facility: Procedures Date Procedure Procedure Detail Performing Clinician Start: 02-12-2024 Follow-up visit Follow-up MEL MONTENEGRO Start: 09-18-2023 Adult depression scr eening assessment Ehesther CbareraAnn Work Phone: Start: 09-19-2020 Excisional biopsy Karlos [...] 08-05-2025 Adult BMI Screening Adult BMI Screening [facility] Start: 08-05-2025 Tobacco Screening Tobacco Screening [facility] Start: 02-11-2025 Adult BMI Screening Adult BMI Screening [facility] Start: 02-11-2025 Tobacco Screening Tobacco Screening [facility] Start: 02-03-2025 End: 02-03-2025 Patient encounter procedure 02/03/2025 2:00 PM EDT Office Visit [facility] [address] [place] [address] Joe Jang PA-C [address] [facility], [address] [place] [id number] [facility] Start: 09-27-2024 Tobacco Screening Tobacco Screening [facility] Start: 09-18-2024 Adult BMI Screening Adult BMI Screening [facility] Start: 09-18-2024 Depression Screening Depression Screening [facility] Start: 09-18-2024 Tobacco Screening Tobacco Screening [facility] Start: 08-19-2024 End: 08-19-2024 Patient encounter procedure 08/19/2024 2:00 PM EST Office Visit [facility] [address] [facility] [place] [address] Mel Camacho MD [address] [place] [address], [address] [place] [phone] [facility] Start: 05-29-2024 COVID-19 Vaccine ( season) COVID-19 Vaccine ( season) [facility] Start: 05-29-2024 COVID-19 Vaccine ( season) COVID-19 Vaccine ( season) [facility] Start: 05-29-2024 Influenza vaccination Influenza Vaccine [facility] Start: 02-12-2024 End: 02-12-2024 Patient encounter procedure 02/12/2024 2:00 PM EDT Office Visit [facility] [address] [place] [address] Mel Camacho MD [address] [place] [address], [address] [place] [address] [facility] Start: 05-29-2023 COVID-19 Vaccine ( season) COVID-19 Vaccine ( season) [facility] Start: 05-29-2023 Influenza vaccination Influenza Vaccine [facility] Start: 02-08-2016 Fall Risk Screening Fall Risk Screening [facility] Start: 1970 Administration of varicella zoster vaccine Zoster (Shingles) Vaccine (1 of 2) [facility] Start: 1970 DTaP,Tdap and Td Vaccines (1 - Tdap) DTaP,Tdap and Td Vaccines (1 - Tdap) [facility] Start: 1950 Medicare Annual Wellness Visit Medicare Annual Wellness Visit [facility] Immunizations Immunization Date Immunization Notes Care Provider Fa cili 09-15-2021 Influenza Vaccine, Quadrivalent, Adjuvanted Mel Camacho MD Work Phone: [facility] 09-15-2021 influenza virus vaccine, unspecified formulation Mel Camacho MD Work Phone: [facility] 07-22-2021 SARS-CoV-2 (COVID-19 ) mRNA-1273 vaccine Baljit DOSHI [facility] Comment on above: Result Comment: 2022: [id number] 12-19-2020 SARS-CoV-2 (COVID-19 ) mRNA-1273 vaccine Baljit DOSHI [facility] 11-22-2020 SARS-CoV-2 (COVID-19 ) mRNA-1273 vaccine Baljit DOSHI [facility] 06-05-2020 influenza, seasonal, injectable Mel Camacho MD Work Phone: [facility] 05-28-2020 pneumococcal conjuga te vaccine, 13 valent Mel Camacho MD Work Phone: [facility] Payers Date Payer Category Payer Medicare AET[employer] MEDICARE A ETNA MEDICARE PLAN (HMO) [id number] 2021-Present [phone] [address] [place] [address] [id number] 2021 Medicare HMO [employer] MEDICARE ember [id number] 1959 Medicare [id number] 1950 Unknown [id number] [id number]3 1951 Unknown [id number] 2.16.840.1.570920.3.579.2.59 1951 Unknown [id number] 2.16.840.1.410935.3.579.2.593 1951 Unknown [id number] 2.16.840.1.350738.3.579.2.593 1951 Unknown [id number] 2.16.840.1.473646.3.579.2.593 1951 Unknown [id number] 2.16.840.1.707028.3.579.2.593 1951 Unknown [id number] 2.16.840.1.700636.3.579.2.593 1951 Unknown [id number] 2.16.840.1.768043.3.579.2.593 1951 Unknown [id number] 2.16.840.1.695285.3.579.2.593 1951 Unknown [id number] 2.16.840.1.036985.3.579.2.593 1951 Unknown [id number] 2.16.840.1.677026.3.579.2.593 1951 Unknown [id number] 2.16.840.1.695995.3.579.2.593 1951 Unknown [id number] 2.16.840.1.611726.3.579.2.593 1951 Unknown [id number] 2.16.840.1.015317.3.579.2.593 1951 Unknown [id number] 2.16.840.1.271266.3.579.2.593 1951 Unknown [id number] 2.16.840.1.282616.3.579.2.727 1951 Unknown [id number] 2.16.840.1.447211.3.579.2.727 1951 Unknown [id number] 2.16.840.1.649129.3.579.2.1286 1951 Unknown [id number] 2.16.840.1.681003.3.579.2.1286 1951 Unknown [id number] 2.16.840.1.717207.3.579.2.1286 Social History Date Type Detail Facility Start: 05-12-2023 Tobacco smoking status Ex-smoker (fi nding) [facility] Tobacco smoking status Never [facility] Start: 07-03-2020 End: 11-08-2020 Sex Assigned At Male Fregoso Derrek [facility] Start: 12-17-2022 [facility] Start: 12-17-2022 Tobacco use and exposure Smokeless tobacco non-user [facility] Start: 09-27-2023 End: 11-08-2024 Alcohol intake Ex-drinker (finding) [facility] Start: 07-03-2020 End: 11-08-2020 History of Social function [facility] [employer] [facility] How often to you hav e a drink containing alcohol? Never [facility] Start: 1950 Sex Assigned At Not on file P [facility] Start: 06-22-2020 Sex Male (finding) [facility] Functional Status Date Assessment Result Facility 05-12-2023 Functional Status N/A [facility] Clinical Notes 05-12-2023 to 10-25-2024 oJe Jang PA-C - 08/05/2024 3:00 PM ESTTelephone [...] 2023 for syncope. He was seen in [facility] ED in Sep 2023 for generalized [...] at 5am and sleeps till 10am. 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 At that time [...] Use: Not At Risk (07/03/2020) Received from [employer], [employer] AUDIT-C Frequency of Alcohol Consumption: Never Average [...] Depression: Not at risk (09/18/2023) Received from [employer], [employer] PHQ-2 Total Score: 0 Housing Stability: Low Risk (09/03/2024) Housing Stability (more content not included)... [facility] 09-26-2024 Note Patient is here toda [...] Follow-up with Dr. Chaparro in 4 weeks [facility] 09-16-2024 Note Patient is here toda [...] x 4 dry gauze and loose tape [facility] 09-07-2024 Note DUAL CHAMBER PACEMAK ER IMPLANT & LOOP EXPLANT PROCEDURE NOTE DATE OF PROCEDURE: 09/07/24 PERFORMING PHYSICIAN: Dr. Missael Chaparro CONSENT: Patient LOCATION: EP Lab PROCEDURE PERFORMED: 1. Implantation of dual chamber Pacemaker (Biotronik) 2. Ultrasound guided venous access 3. Removal of previously implanted LOOP ([employer]) INDICATIONS: 1. Sinus node dysfunction. 2. [...] using modified seldinger technique using a 5 Scottish micro-puncture needle on two occasions and 0.35 [...] for the device above the muscle. 6 Scottish Safesheaths were placed over the wire. An active fixation Biotronik pacing lead was then delivered through the 6Fsheath tothe right ventricle. After confirmation of lead position on orthogonal views (OLIVAS and YORUBA) to confirm septal position, the screw was [...] lead position on orthogonal views (OLIVAS and YORUBA), the screw was activated. Good sensing parameters, [...] from discharge or sooner for any concerns. Misseal Chaparro MD Cardiac Electrophysiology [facility] 09-05-2024 Note Hospital Medicine Discharge Summary Final Discharge Diagnosis: Cardiac syncope Symptomatic bradycardia Sinus pauses Parkinson's disease Dementia without behavioral disturbance CKD stage IIIB Essential hypertension Admission Diagnosis: Cardiac syncope [R55] Hospital course: Efraín Johnson is an 74 y.o. male who came from [facility] with syncopal episode and sustained bradycardia. [...] Medications These medications were sent to [facility] - [address] [place] [address] [address] [facility] [place] [address], [facility] [address] hydrALAZINE 25 mg tablet Efraín is allergic [...] Pending At Discharge: (more content not included)... [facility] 09-05-2024 Note Attestation signed by Norberto [...] of recurrent syncopal episodes and follows with [facility] cardiology clinic outpatient. Patient was [...] Rate 76 At (more content not included)... [facility] 09-04-2024 Note Hospital Medicine Daily Progress Note - 09/04/2024 12:17 PM; Room: 3182/3182-01 Admission: 09/03/2024 7:05 PM; Length of stay: 1 days THE HOSPITALIST TEAM PREFERS TO USE [employer] FOR NON-URGENT COMMUNICATION 7AM-7PM. IF I DO NOT RESPOND WITHIN 20 MINUTES OR URGENT MATTERS, PLEASE CALL THROUGH THE ELEVATOR INSTALLER. FROM 7PM-7AM, PLEASE PAGE [phone](COVR). Code Status: Full Code Barriers to Discharge: [...] Chronic kidney disease, stage 3b (CMS/HCC) Dementia ([facility]/HCC) Parkinson disease (CMS/HCC) Adenocarcinoma of prostate (CMS/HCC) [...] , FREET4 , CORTISOL , FEV1 , DTH4NSY , DLCO , RVSP , HDL , LDL No results found for: [id number] , IRON , TIBC , C3 , C4 , RONI , CANCA , ASO , PSA , CEA , CA125 , CA199 , AFP , CA153 Imaging ECG 12 lead Normal sinus rhythm Left axis deviation Possible Lateral infarct , age undetermined Abnormal ECG No previous ECGs available Discharge Planning Signed Ramesh Lawrence MD [facility] (more content not included)... [facility] 09-03-2024 Note Hospital Medicine History and Physical 09/03/2024 10:10 PM THE HOSPITALIST TEAM PREFERS TO USE [employer] FOR NON-URGENT COMMUNICATION 7AM-7PM. IF I DO NOT RESPOND WITHIN 20 MINUTES OR URGENT MATTERS, PLEASE CALL THROUGH THE ELEVATOR INSTALLER. FROM 7PM-7AM, PLEASE PAGE [phone](COVR). Chief Complaint Syncope History of Present Illness Efraín Johnson is an 74 y.o. male who came from [facility] with syncopal episode and sustained bradycardia. [...] planning for pacemaker (more content not included)... [facility] 08-05-2024 History of Present illness Narrative [facility] Office Note 08/04/2024 1:37 PM Patient info: Efraín Johnson is a 74 y.o. male Account No.: [id number] Acct: : 1950 PCP: LIBRADO HELM MD [...] Condition: The patient was initially admitted at [facility] 2021 with complaints of subacute left lower extremity weakness and gait instability. Subsequently was seen by the tele Stroke Service and had a stroke workup which was unremarkable. Was seen subsequently seen by the tele neurology service, and then had MRI of the entire spine which showed multilevel degenerative changes, however nothing that required urgent neurosurgical intervention. Was then transferred to [facility] for further evaluation and management. Was admitted under the primary neurology service([place]), where he was identified to have signs of parkinsonism, involuntary lower facial twitching consistent with extrapyramidal symptoms(tardive dyskinesias?). On initial evaluation at [facility], was not identified to have any [...] PA-C 08/08/24 [id number] documented in this encounter [facility] 06-14-2024 Miscellaneous Notes Patient's appointment needs to be rescheduled at this time due to provider out of clinic. Called and left message Date: 08/19 Provider:Dr Camacho Rescheduling Instructions: move to same time on 08/16 DaughterMere, stated she can ONLY come on Fridays. Showing Dr. Camacho is only in [place] on Tuesdays. Asking if patient can see Jake Jang in [place] so that patient can come on a THURSDAY? DX: Parkinsonism, unspecified Parkinsonism type Please call Mere bauer, to reschedule: [phone] Ok with me if patient can be seen by Joe. Okay. - [facility] 1st attempt: Marketer contacted patient and left a voicemail to inform them that their transfer of care request was approved. Marketer provided callback number to schedule with their new provider or address any questions or concerns they may have. 2nd attempt: Marketer contacted patient and left a voicemail to inform them that their transfer of care request was approved. Marketer provided callback number to schedule with their new provider or address any questions or concerns they may have. documented in this encounter [facility] 06-14-2024 Telephone encounter Note Patient's appointment needs to be rescheduled at this time due to provider out of clinic. Called and left message Date: 08/19 Provider:Dr Camacho Rescheduling Instructions: move to same time on 08/16 [facility] 06-14-2024 Telephone encounter Note DaughterMere, stated she can ONLY come on Fridays. Showing Dr. Camacho is only in [place] on Tuesdays. Asking if patient can see Jake Jang in [place] so that patient can come on a THURSDAY? DX: Parkinsonism, unspecified Parkinsonism type Please call daughterMere, to reschedule: [phone] [facility] 06-14-2024 Telephone encounter Note Ok with me if patient can be seen by Joe. [facility] 06-14-2024 Telephone encounter Note Okay. - [facility] [employer] [facility] Work Phone: 06-14-2024 Telephone encounter Note 1st attempt: Marketer contacted patient and left a voicemail to inform them that their transfer of care request was approved. Marketer provided callback number to schedule with their new provider or address any questions or concerns they may have. [facility] 06-14-2024 Telephone encounter Note 2nd attempt: Marketer contacted patient and left a voicemail to inform them that their transfer of care request was approved. Marketer provided callback number to schedule with their new provider or address any questions or concerns they may have. [facility] [employer] [facility] 06-01-2024 Note [place] Cardiology - [facility] Subjective Efraín Johnson is a [...] rate and bloo (more content not included)... [facility] 05-17-2024 Miscellaneous Notes Medication refill requested via fax from [facility] Medication: Carbidopa-levodopa 25-100tab Last filled: 05/13/24 Last seen: 02/12/24 Next appt: 08/19/24 documented in this encounter [facility] 05-17-2024 Telephone encounter Note Medication refill requested via fax from [facility] Medication: Carbidopa-levodopa 25-100tab Last filled: 05/13/24 Last seen: 02/12/24 Next appt: 08/19/24 [facility] 02-12-2024 History of Present illness Narrative Images from the original note were not included. [address] [place] [id number] Patient: Efraín Johnson Date of : 1950 [...] Condition: The patient was initially admitted at [facility] 2021 with complaints of subacute left lower extremity weakness and gait instability. Subsequently was seen by the tele Stroke Service and had a stroke workup which was unremarkable. Was seen subsequently seen by the tele neurology service, and then had MRI of the entire spine which showed multilevel degenerative changes, however nothing that required urgent neurosurgical intervention. Was then transferred to [facility] for further evaluation and management. Was admitted under the primary neurology service([place]), where he was identified to have signs of parkinsonism, involuntary lower facial twitching consistent with extrapyramidal symptoms(tardive dyskinesias?). On initial evaluation at [facility], was not identified to have any [...] to display PTSD: No data to display [place]: No data to display NATTY-10: No data [...] sundowning, anxiety, who was initially admitted at [facility] in October 2021 with complaints of [...] neurosurgical intervention. Was then transferred to [facility] for further evaluation and management. Was admitted under the primary neurology service([place]), where he was identified to have signs of extrapyramidal symptoms(parkinsonism with mild bradykinesia L>R, involuntary lower facial twitching consistent with tardive dyskinesias). On initial evaluation at [facility], was not identified to have any [...] 6 months. Mel Camacho MD Vascular Neurologist [facility] Neurology Clinic # [phone] I have personally participated in the care of this patient. I have reviewed all pertinent clinical information, including history, physical exam, investigation results and plan. 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 Important Notice: This note was created with the assistance of a speech recognition program. While intending to generate a timely document that accurately reflects the content of the encounter, no guarantee can be provided that every grammatical or spelling mistake has been or will be identified or corrected. Thank you for your understanding. documented in this encounter [facility] 01-20-2024 Miscellaneous Notes Medication Refill request received via fax from [facility]. Medication: Baclofen Last filled: 10/15/23 Last seen:09/18/23 Next appt: 02/12/24 documented in this encounter [facility] 01-20-2024 Telephone encounter Note Medication Refill request received via fax from [facility]. Medication: Baclofen Last filled: 10/15/23 Last seen:09/18/23 Next appt: 02/12/24 [facility] 12-08-2023 Note [place] Electrophysiology Consult Note Reason for visit: Bradycardia/ Syncope, s/p loop 12/07/22 Patient here for 3 mo follow up. Loop recorder was placed in Aug 2023 for syncope. He was seen in [facility] ED in Sep 2023 for generalized [...] at 5am and sleeps till 10am. 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 At that time [...] 10 mg tabl (more content not included)... [facility] 09-18-2023 History of Present illness Narrative Images from the original note were not included. [address] [place] [id number] Patient: Efraín Johnson Date of : 1950 [...] Condition: The patient was initially admitted at [facility] 2021 with complaints of subacute left lower extremity weakness and gait instability. Subsequently was seen by the tele Stroke Service and had a stroke workup which was unremarkable. Was seen subsequently seen by the tele neurology service, and then had MRI of the entire spine which showed multilevel degenerative changes, however nothing that required urgent neurosurgical intervention. Was then transferred to [facility] for further evaluation and management. Was admitted under the primary neurology service([place]), where he was identified to have signs of parkinsonism, involuntary lower facial twitching consistent with extrapyramidal symptoms(tardive dyskinesias?). On initial evaluation at [facility], was not identified to have any [...] to display PTSD: No data to display [place]: No data to display NATTY-10: No data [...] sundowning, anxiety, who was initially admitted at [facility] in October 2021 with complaints of [...] neurosurgical intervention. Was then transferred to [facility] for further evaluation and management. Was admitted under the primary neurology service([place]), where he was identified to have signs of extrapyramidal symptoms(parkinsonism with mild bradykinesia L>R, involuntary lower facial twitching consistent with tardive dyskinesias). On initial evaluation at [facility], was not identified to have any [...] 6 months. Mel Camacho MD Vascular Neurologist [facility] Neurology Clinic # [phone] I have personally participated in the care of this patient. I have reviewed all pertinent clinical information, including history, physical exam, investigation results and plan. 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 Important Notice: This note was created with the assistance of a speech recognition program. While intending to generate a timely document that accurately reflects the content of the encounter, no guarantee can be provided that every grammatical or spelling mistake has been or will be identified or corrected. Thank you for your understanding. documented in this encounter [facility] [employer] 05-12-2023 Note Chief Complaint consultation for diverticulitis HPI Staff 73 year old male presents on consultation from Dr. Helm for diverticulitis. Presented to [place] ED 04/04 with complaint of rectal bleeding. [...] Lumbar discectomy ( (more content not included)... [facility] Comment on above: Result Comment: Elec tronically Signed By: GLENDA ARVIZU, Baljit Estrada\Date and Time Signed: 05/12/23 17:27 EDT Evaluation + Plan note No data available for this section General Surgery [place] Evaluation note Diagnosis Parkinsonism, unspecified Parkinsonism type- [...] whether sciatica present documented in this encounter [facility]* Diagnosis Parkinsonism, unspecified Parkinsonism [...] neoplasm of prostate [facility] Diagnosis Parkinsonism, unspecified Parkinsonism type (CMS-HCC) [facility] Diagnosis Parkinsonism, unspecified Parkinsonism type (CMS-HCC)- Primary Mild dementia with agitation, unspecified dementia type (CMS-HCC) [facility] Diagnosis Mild dementia with agitation, unspecified dementia type (CMS-HCC) [facility] No data available for this section General Surgery [place] InstructionsNot on filedocumented in this encounter [facility] this [facility] filedocumented in this [facility] filedocumented in this encounter [facility] filedocumented in this [facility] filedocumented in this [facility] filedocumented in this encounter [facility] No data available for this section General Surgery [place] Summary Purpose Family History No Family History Records FoundNo Family History Records FoundNo Family History Records FoundNo Family History Records Found Advance Directives Documents on File Type Date Recorded 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 Living Will 09/18/2023 1:20 PM POA/Livin g Will 12/26/22 Additional Source Comments (unrecognized sect ion and content) No Status Records FoundNo Status Records FoundNo Status Records FoundNo Status Records Found INFORMATION SOURCE (unrecogn ized section and content) DATE CREATED AUTHOR 02/11/2023 [facility] DATE CREATED AUTHOR AUTHOR'S ORGANIZ ATION 06/02/2023 [facility] DATE CREATED AUTHOR AUTHOR'S ORGANIZ ATION 08/07/2024 [facility] DATE CREATED AUTHOR AUTHOR'S ORGANIZ ATION 10/26/2024 [facility] Patient Care team informatio n (unrecognized section and content) Foreign Food Cook Specialty Relationship Specialty Start Date End Date Librado Helm MD [address] [id number] PCP - General Family Medicine 07/03/20 [employer] Specialty Relationship Specialty Start Date End Date Librado Helm MD [address] [id number] PCP - General Family Medicine 07/03/20 Foreign [employer] Cook Specialty Relationship Specialty Start Date End Date Librado Helm MD [address] [id number] PCP - General Family Medicine 07/03/20 Foreign Food Cook Specialty Relationship Specialty Start Date End Date Librado Helm MD PCP - General Family Medicine 07/03/20 Foreign Food Cook Specialty Relationship Specialty Start Date End Date Librado Helm MD PCP - General Family Medicine 07/03/20 Foreign Food Cook Specialty Relationship Specialty Start Date End Date Librado [...] BE BASED ON THE PRIMARY CLINICAL RECORDS. [facility] [employer] provides no warranty or guarantee of the accuracy or completeness of information in this document.
--- NOTE | 2025-01-01 16:30 | ECG_ITS ---
[facility] Test Date: 2025-01-01 Pat Name: EFRAÍN RAMON Department: Room: - Gender: Male Personal Caregiver: : 1950 Requested By: [id number] Order Number: [id number] Reading MD: DEJON REDMOND M.D. Measurements Intervals [place] Rate: 73 P: -25 [place]: 182 QRS: -47 QRSD: 84 T: 38 QT: 368 QTc: 393 Interpretive Statements 24245 Electronic atrial pacemaker 2630 Left anterior fascicular block 8003 Consistent with pulmonary disease 9150 abnormal ECG Compared to ECG 09/03/2024 11:30:48 Left anterior fascicular block now present Atrial fibrillation no longer present Left-axis deviation no longer present Electronically Signed On 01-02-2025 7:13:34 EDT by DEJON REDMOND M.D.
[2025-01-01 16:38] LABS: Influenza Virus A Antigen Negative; Influenza Virus B Antigen Negative; Internal Control Within Normal Limits; SARS-CoV-2 Ag NEGATIVE (NEGATIVE)
[2025-01-01 16:42] LABS: Basophils Percent Auto 0.4 % (0.2-2.0); Eosinophils Absolute Auto 0.1 10^3/uL (0.0-0.7); Eosinophils Percent Auto 1.1 % (0.9-7.0); Hematocrit 42.4 % (42.0-54.0); Hemoglobin 13.8 g/dL (14.0-18.0); Immature Granulocytes Abs Auto 0.01 10^3/uL (0.00-0.03); Immature Granulocytes Pct Auto 0.1 % (0.0-0.5); Lymphocytes Absolute Auto 1.8 10^3/uL (1.2-3.8); Lymphocytes Percent Auto 19.4 % (20.5-60.0); Mean Corpuscular HGB Conc 32.5 g/dL (29.9-35.2); Mean Corpuscular Hemoglobin 27.4 pg (25.9-34.0); Mean Corpuscular Volume 84.3 fL (80.0-94.0); Mean Platelet Volume 10.4 fL (9.5-13.5); Monocytes Absolute Auto 0.8 10^3/uL (0.3-0.8); Monocytes Percent Auto 8.5 % (1.7-12.0); Neutrophils Absolute Auto 6.6 10^3/uL (1.4-6.5); Neutrophils Percent Auto 70.5 % (43.0-75.0); Platelet Count 279 10^3/uL (150-450); Red Blood Count 5.03 10^6/uL (4.70-6.10); Red Cell Distribution Width 14.8 % (11.0-15.0); White Blood Count 9.4 10^3/uL (4.0-11.0)
[2025-01-01] MEDS: IPRATROPIUM/ALBUTEROL SULFATE 3 ML AMPUL.NEB IH (16:44)
[2025-01-01 16:57] LABS: Alanine Aminotransferase <6 U/L (16-63); Albumin Globulin Ratio 1.2; Albumin Level 3.6 g/dL (3.4-5.0); Alkaline Phosphatase 77 U/L (46-116); Anion Gap 11.9; Aspartate Amino Transferase 19 U/L (15-37); BUN Creatinine Ratio 8.8; Bilirubin Total 0.8 mg/dL (0.2-1.0); Calcium 8.4 mg/dL (8.5-10.1); Carbon Dioxide 23.7 mmol/L (21.0-32.0); Chloride 110 mmol/L (98-107); Estimated GFR (African America 37 (>=60 mL/min/1.73m^2); Estimated GFR (Non-African Ame 30 (>=60 mL/min/1.73m^2); Globulin 2.9 g/dL; Glucose 99 mg/dL (74-106); Potassium 4.6 mmol/L (3.5-5.1); Sodium 141 mmol/L (136-145); Total Protein 6.5 g/dL (6.4-8.2); Troponin I High Sensitivity 7.1 pg/mL (4.0-76.1)
--- NOTE | 2025-01-01 17:04 | ED_ITS ---
HPI HPI - General Adult General Chief complaint: Upper Respiratory Infection Stated complaint: WEAKNESS Time Seen by Provider: 01/01/25 16:16 Source: patient Mode of arrival: walk-in History of Present Illness HPI narrative: 74-year-old male presents here with a chief complaint of a 1 week history of cough congestion. Patient's states he has been coughing. He will not use his inhaler at home. Patient does have a history of Alzheimer's dementia. He was in bed today when she got home he said he did not feel well because of his cough. Patient brought here for assessment. Patient's vital signs are stable is not currently febrile. Patient did have a replaced in September. He denies any chest pain. He has no upper or lower extremity edema noted. He does not appear toxic. Related Data Home Medications ?Medication ?Instructions ?Recorded ?Confirmed aspirin 81 mg chewable tablet 1 tab PO DAILY 04/04/23 09/03/24 carbidopa 25 mg-levodopa 100 mg 1 tab PO TID 04/04/23 09/03/24 tablet potassium chloride 20 mEq 20 meq PO BID 04/04/23 09/03/24 tablet,extended release(part/cryst) (Klor-Con M) donepezil 10 mg tablet 10 mg PO DAILY 05/25/23 09/03/24 albuterol sulfate 90 mcg/actuation 2 inh inhalation Q4H PRN shortness 10/01/23 09/03/24 aerosol inhaler of breath or wheezing carbidopa ER 25 mg-levodopa 100 mg 1 tab PO TID 10/01/23 09/03/24 tablet,extended release amlodipine 10 mg tablet 10 mg PO DAILY 09/03/24 09/03/24 baclofen 10 mg tablet 10 mg PO DAILY PRN muscle spasm 09/03/24 09/03/24 hydralazine 10 mg tablet 10 mg PO DAILY 09/03/24 09/03/24 memantine 5 mg tablet 5 mg PO BID 09/03/24 09/03/24 metoprolol tartrate 25 mg tablet 25 mg PO BID 09/03/24 09/03/24 Previous Rx's ?Medication ?Instructions ?Recorded albuterol sulfate 2.5 mg/3 mL 2.5 mg (3 mL) inhalation Q8H PRN 01/01/25 (0.083 %) solution for nebulization bronchospasm #75 mL Allergies Allergy/AdvReac Type Severity Reaction Status Date / Time Penicillins Allergy Unknown Unknown Verified 09/03/24 12:04 Opioid HPI Opioid Management Most Recent Opioid Data: No Data to Display Review of Systems ROS Narrative All Systems are negative except as noted/marked.All systems reviewed and otherwise negative [facility] Medical History (Updated 01/01/25 @ 17:28 by Sita Borges) History of brachytherapy ?Z92.3 - Personal history of irradiation (ICD-10) Tardive dyskinesia ?G24.01 - Drug induced subacute dyskinesia (ICD-10) Right foot drop ?M21.371 - Foot drop, right foot (ICD-10) Rectal bleeding ?K62.5 - Hemorrhage of anus and rectum (ICD-10) Metabolic encephalopathy ?G93.41 - Metabolic encephalopathy (ICD-10) Lumbar disc disease ?M51.9 - Unspecified thoracic, thoracolumbar and lumbosacral intervertebral disc disorder (ICD-10) Hyperuricemia ?E79.0 - Hyperuricemia without signs of inflammatory arthritis and tophaceous disease (ICD-10) Hyperlipemia ?E78.5 - Hyperlipidemia, unspecified (ICD-10) Hypertension ?I10 - Essential (primary) hypertension (ICD-10) Gout ?M10.9 - Gout, unspecified (ICD-10) GERD (gastroesophageal reflux disease) ?K21.9 - Gastro-esophageal reflux disease without esophagitis (ICD-10) Elevated PSA ?R97.20 - Elevated prostate specific antigen [PSA] (ICD-10) Dementia ?F03.90 - Unspecified dementia, unspecified severity, without behavioral disturbance, psychotic disturbance, mood disturbance, and anxiety (ICD-10) COPD (chronic obstructive pulmonary disease) ?J44.9 - Chronic obstructive pulmonary disease, unspecified (ICD-10) Cervical spondylosis ?M47.812 - Spondylosis without myelopathy or radiculopathy, cervical region (ICD-10) Adenocarcinoma of prostate ?C61 - Malignant neoplasm of prostate (ICD-10) Bradycardia ?R00.1 - Bradycardia, unspecified (ICD-10) Hypokalemia ?E87.6 - Hypokalemia (ICD-10) Parkinsons disease ?G20 - Parkinson's disease (ICD-10) Acute diverticulitis ?K57.92 - Diverticulitis of intestine, part unspecified, without perforation or abscess without bleeding (ICD-10) Surgical History (Updated 05/25/23 @ 14:31 by Cherie Cardoso) H/O vasectomy ?Z98.52 - Vasectomy status (ICD-10) H/O bone graft ?Z98.890 - Other specified postprocedural states (ICD-10) H/O colonoscopy ?Z98.890 - Other specified postprocedural states (ICD-10) H/O lumbar discectomy ?Z98.890 - Other specified postprocedural states (ICD-10) Status post excisional biopsy ?Z98.890 - Other specified postprocedural states (ICD-10) H/O skin graft ?Z94.5 - Skin transplant status (ICD-10) Hx of cholecystectomy ?Z90.49 - Acquired absence of other specified parts of digestive tract (ICD- 10) Family History (Updated 05/25/23 @ 14:33 by Cherie Cardoso) Mother Family history of stroke Dementia Cardiac arrest Father Cardiac arrest Social History Within the past year, how often did you have a drink containing alcohol: never Score interpretation: A score less than 4 is consistent with normal alcohol consumption. Smoking status: Former smoker Non-prescribed substance use: denies use Previous occupational history: retired Highest level of school completed/degree received: Associate degree: occupational, technical, vocational program Little interest or pleasure in doing things: not at all Feeling down, depressed, or hopeless: not at all Exam Narrative Exam Narrative: Nurses note and vital signs reviewed and patient is not hypoxic. General: The patient appears well and in no apparent distress. Patient is resting comfortably on cart. Skin: Warm, dry, no pallor noted. There is no rash noted. Head: Normocephalic, atraumatic Eye: Normal conjunctiva, no drainage, EOMI. PERRL Ears, Nose, Mouth, and Throat: oral mucosa is moist. Nares patent. Mouth without vesicles. Ear canals patent. Tm's without Erythema Cardiovascular: Regular Rate and Rhythm Respiratory: dry nonproductive cough. Patient is in no distress, no accessory muscle use, lungs are clear to auscultation, no wheezing, rales or rhonchi Back: non-tender, no CVA tenderness bilaterally to percussion. GI: Normal bowel sounds, no tenderness to palpation, no masses appreciated. No rebound, guarding, or rigidity noted. Musculoskeletal: The patient has no evidence of calf tenderness, no pitting edema, symmetrical pulses noted bilaterally Neurological: A&O x4, normal speech Psychiatric: Cooperative Constitutional Vital Signs, click to edit/add: Last Vital Signs Temp 98.1 F 01/01/25 16:12 Pulse 74 01/01/25 16:12 Resp 18 01/01/25 16:12 BP 139/78 01/01/25 16:12 Pulse Ox 96 01/01/25 16:12 O2 Del Method Room Air 01/01/25 16:12 Course Vital Signs Vital signs: Vital Signs Temperature 98.1 F 01/01/25 16:12 Pulse Rate 74 01/01/25 16:12 Respiratory Rate 18 01/01/25 16:12 Blood Pressure 139/78 01/01/25 16:12 Pulse Oximetry 96 01/01/25 16:12 Oxygen Delivery Method Room Air 01/01/25 16:12 Temperature 98.1 F 01/01/25 16:12 Pulse Rate 74 01/01/25 16:12 Respiratory Rate 18 01/01/25 16:12 Blood Pressure 139/78 01/01/25 16:12 Pulse Oximetry 96 01/01/25 16:12 Oxygen Delivery Method Room Air 01/01/25 16:12 Medical Decision Making MDM Narrative Medical decision making narrative: 74-year-old male presents here with a chief complaint of a 1 week history of cough congestion. Patient's states he has been coughing. He will not use his inhaler at home. Patient does have a history of Alzheimer's dementia. He was in bed today when she got home he said he did not feel well because of his c ough. Patient brought here for assessment. Patient's vital signs are stable is not currently febrile. Patient did have a replaced in September. He denies any chest pain. He has no upper or lower extremity edema noted. He does not appear toxic. On arrival to the emergency room, patient looks well. complaint of exacerbation of a chronic or new cough. Lung sounds were diminished with faint wheezing. states he would not use his inhaler at home. He does have a history of Alzheimer's dementia. He also complained of foot pain. There is no bruising or swelling noted to the foot on examination. Patient shows no other signs of distress. Workup including troponin BNP EKG and chest x-ray were all performed. Chest x-ray showed no acute infiltrates. Patient was medicated here with a DuoNeb breathing treatment. states they have access to a nebulizer machine at home I will give them prescription for albuterol since he does not want to use his inhalers. Patient and agree with plan of care diagnosis of URI, cough Differential Diagnosis Differential Diagnosis: cough, copd, uri Medical Records Medical records reviewed: Yes I reviewed the patient's medical records Lab Data Lab results reviewed: Yes I reviewed the patient's lab results Labs: Lab Results 01/01/25 Range/Units 16:19 WBC 9.4 (4.0-11.0) 10^3/uL RBC 5.03 (4.70-6.10) 10^6/uL Hgb 13.8 L (14.0-18.0) g/dL Hct 42.4 (42.0-54.0) % MCV 84.3 (80.0-94.0) fL MCH 27.4 (25.9-34.0) pg MCHC 32.5 (29.9-35.2) g/dL RDW 14.8 (11.0-15.0) % Plt Count 279 (150-450) 10^3/uL MPV 10.4 (9.5-13.5) fL Neut % (Auto) 70.5 (43.0-75.0) % Lymph % (Auto) 19.4 L (20.5-60.0) % [place] % (Auto) 8.5 (1.7-12.0) % Eos % (Auto) 1.1 (0.9-7.0) % Baso % (Auto) 0.4 (0.2-2.0) % Neut # (Auto) 6.6 H (1.4-6.5) 10^3/uL Lymph # (Auto) 1.8 (1.2-3.8) 10^3/uL [place] # (Auto) 0.8 (0.3-0.8) 10^3/uL Eos # (Auto) 0.1 (0.0-0.7) 10^3/uL Baso # (Auto) 0.0 (0.0-0.1) 10^3/uL Abs Immat Gran (auto) 0.01 (0.00-0.03) 10^3/uL Imm/Tot Granulo (auto) 0.1 (0.0-0.5) % Sodium 141 (136-145) mmol/L Potassium 4.6 (3.5-5.1) mmol/L Chloride 110 H (98-107) mmol/L Carbon Dioxide 23.7 (21.0-32.0) mmol/L Anion Gap 11.9 BUN 19.0 H (7.0-18.0) mg/dL Creatinine 2.15 H (0.70-1.30) mg/dL Est GFR ( Amer) 37 L (>=60 mL/min/1.73m^2) Est GFR (Non-Af Amer) 30 L (>=60 mL/min/1.73m^2) BUN/Creatinine Ratio 8.8 Glucose 99 (74-106) mg/dL Calcium 8.4 L (8.5-10.1) mg/dL Total Bilirubin 0.8 (0.2-1.0) mg/dL AST 19 (15-37) U/L ALT <6 L (16-63) U/L Alkaline Phosphatase 77 (46-116) U/L Troponin I High Sens 7.1 (4.0-76.1) pg/mL Total Protein 6.5 (6.4-8.2) g/dL Albumin 3.6 (3.4-5.0) g/dL Globulin 2.9 g/dL Albumin/Globulin Ratio 1.2 Influenza Type A Ag Negative Influenza Type B Ag Negative SARS-CoV-2 Ag (CV2AG) Negative (NEGATIVE) ECG Data Interpretation: 1641 sinus paced rhythm with a rate of 73 bpm [place] interval 182 ms QRS duration [address] depression or elevation no STEMI Discharge Plan Discharge Chief Complaint: Upper Respiratory Infection Clinical Impression: Cough, Upper respiratory infection Patient Disposition: Home, Self-Care Time of Disposition Decision: 17:25 Condition: Good Prescriptions / Home Meds: New albuterol sulfate 2.5 mg /3 mL (0.083 %) solution for nebulization 2.5 mg inhalation Q8H PRN (Reason: bronchospasm) Qty: 75 0RF No Action albuterol sulfate 90 mcg/actuation HFA aerosol inhaler 2 inh INHALATION Q4H PRN (Reason: shortness of breath or wheezing) carbidopa-levodopa 25-100 mg tablet extended release 1 tab PO TID amlodipine 10 mg tablet 10 mg PO DAILY baclofen 10 mg tablet 10 mg PO DAILY PRN (Reason: muscle spasm) hydralazine 10 mg tablet 10 mg PO DAILY memantine 5 mg tablet 5 mg PO BID metoprolol tartrate 25 mg tablet 25 mg PO BID potassium chloride [Klor-Con M20] 20 mEq tablet,ER particles/crystals 20 meq PO BID aspirin 81 mg tablet,chewable 1 tab PO DAILY carbidopa-levodopa 25-100 mg tablet 1 tab PO TID donepezil 10 mg tablet 10 mg PO DAILY Print Language: Danish Instructions: Upper Respiratory Infection (ED), Wheezing (ED) Referrals: Uche Mike MD [Primary Care Provider] - 1 week
== END 2025-01-01 17:36 | disposition home or self-care (01) ==
PROVIDERS: Physician Assistant; Emergency Provider Emergency Medicine; PCP Family Medicine
DX: R05.9 Cough, unspecified (principal); J06.9 Acute upper respiratory infection, unspecified
CPT/HCPCS: 36415; 71046; 80053; 84484; 85025; 87804; 87811; 93005; 94640; 99285

== ENCOUNTER 2025-03-15 17:05 | Outpatient (OUT) | payer MEDICARE, SELFPAY ==
--- NOTE | 2025-03-15 17:23 | XR_ITS ---
The [address] [address] Patient Name: EFRAÍN RAMON MRN: [id number] date: 1950 Sex: M Assigned Patient Location: [facility] Current Patient Location: [facility] Accession/Order Number: [id number] Exam Date: 03/15/2025 18:38 Report Date: 03/15/2025 18:41 At the request of: LIBRADO HELM MD Procedure: XR cervical spine 2-3V XR cervical spine 2-3V 03/15/2025 5:23 PM SIGNS AND SYMPTOMS: Chronic neck pain PROTOCOLS: Frontal and lateral radiographs of the cervical spine COMPARISON: 11/17/2022 FINDINGS: The bones are in anatomic alignment. There is preservation of the vertebral body heights. There is moderate to severe disc height loss at C4-C5 and C5-C6 with mild disc height loss throughout otherwise. This is similar to the prior exam. There is accompanying facet hypertrophy throughout. The atlantoaxial joint is preserved. The prevertebral soft tissues are within normal limits There is no fracture or destructive lesion. XR/XR cervical spine 2-3V IMPRESSION: Similar disc degenerative changes greatest at C4-C5 and C5-C6. No fracture or subluxation. Impression dictated by: Weston Klein M.D. 03/15/2025 6:41 PM Dictation Location: [place] [address] Electronically authenticated by: [id number] Y Date: 03/15/2025 18:41
--- NOTE | 2025-03-15 17:23 | XR_ITS ---
The [place] [id number] Patient Name: EFRAÍN RAMON MRN: [id number] date: 1950 Sex: M Assigned Patient Location: [facility] Current Patient Location: [facility] Accession/Order Number: [id number] Exam Date: 03/15/2025 18:41 Report Date: 03/15/2025 18:50 At the request of: LIBRADO HELM MD Procedure: XR lumbar spine min 4V XR lumbar spine min 4V 03/15/2025 5:23 PM SIGNS AND SYMPTOMS: Chronic low back pain PROTOCOLS: Frontal, lateral, and oblique radiographs of the lumbar spine COMPARISON: 11/14/2022 FINDINGS: The alignment, development and bony structures are normal. There is no fracture or destructive lesion. There is moderate to severe disc height loss at L4-5 with severe disc height loss at L5-S1. There is mild disc height loss at T12-L1 with anterior osteophyte formation. There is a coming facet hypertrophy which is greatest in the lower lumbar spine. The sacrum and sacroiliac joints are normal. Surgical clips are noted in the right upper quadrant consistent with prior cholecystectomy. Atherosclerotic changes are noted in the abdominal aorta. XR/XR lumbar spine min 4V IMPRESSION: No fracture or subluxation. Similar degenerative changes are noted in the lumbar spine, greatest at L4-5 and L5-S1. Impression dictated by: Wetson Klein M.D. 03/15/2025 6:50 PM Dictation Location: [place] [address] Electronically authenticated by: [id number] Y Date: 03/15/2025 18:50
== END 2025-03-15 17:06 | disposition home or self-care (01) ==
LOC: RAD 17:06
PROVIDERS: PCP Family Medicine; Visit Provider Family Medicine
DX: I49.5 Sick sinus syndrome (principal); M51.369 Other intervertebral disc degeneration, lumbar region without mention of lumbar back pain or lower extremity pain; M50.30 Other cervical disc degeneration, unspecified cervical region
CPT/HCPCS: 72040; 72110

== ENCOUNTER 2025-04-29 10:52 | Outpatient (OUT) | payer MEDICARE, SELFPAY ==
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
--- OUTSIDE RECORDS SUMMARY | 2025-03-15 16:26 | XMS_ITS ---
Author Organization The [facility] in [place] Address [address] [place] [address] Care Team Providers Care Metal Grinder Name Role Phone Ehsan Mike Primary Care Provider REASON FOR VISIT XR results- Problems Problem Type SNOMED Code ICD Code Onset Dates Problem Status W/U Status Risk Notes Problem Disorder of lumbar disc (858766894) Lumbar disc disease (M51.9) Active confirmed Encounters Encounter Location Date Provider Diagnosis [facility] [address] [place] [address] 03/15/2025 Ehsan Mike Lumbar disc disease M51.9 and Lumbar radiculopathy M54.16 Assessments Encounter Date Diagnosis (ICD Code) Assessment Notes Treatment Notes Treatment Clinical Notes Section Notes 03/15/2025 Lumbar disc disease (ICD-10 - M51.9) 03/15/2025 Lumbar radiculopathy (ICD-10 - M54.16) Plan Of Treatment Pending Test Test Name Order Date MRI Cervical Spine w/o contrast * 2024 MRI Lumbar Spine w/o contrast 03/15/2025 Progress Notes * TRISTEN RamyDOB:1950 (75 yo M)Acc No.[id number]:03/15/2025 Patient: Ramy HAMMER :1950 A ge:75 Y S ex:Male Address:[address], [address] Subjective: * Chief Complaints: * X R results- * Medical History: * Surgical History: * Hospitalization/Major Diagno stic Procedure: * Medications: Objective: * Vitals: * Physical Examination: Assessment: * Assessment: 1. L umbar disc disease - M51.9 (Primary) 2 . L umbar radiculopathy - M54.16 Plan: * Treatment: 2. L umbar radiculopathy I maging: MRI Cervical Spine w/o contrast * I maging: MRI Lumbar Spine w/o contrast * Procedure Codes: * true * Date: Generated for Valeriy stallworth/Marixa/Juliennesmitting on: 0 04/29/2025 10:54 AM EDT
--- OUTSIDE RECORDS SUMMARY | 2025-04-03 09:06 | XMS_ITS ---
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 Name Role Phone Ehsan Mike Primary Care Provider [phone] REASON FOR VISIT Arthritis Medications Medication SIG (Take, Route, Fr equency, Duration) Notes Start Date End Date Status predniSONE 5 MG 1 tablet with food o r milk Orally Once a day for 30 days 04/03/2025 Active Encounters Encounter Location Date Provider Diagnosis [facility] [address] [place] [address] 04/03/2025 Ehsan Mike Plan Of Treatment Medication Medication Name Sig Start Date Stop Date Notes predniSONE 5 MG 1 tablet with food o r milk Orally Once a day for 30 days 04/03/2025 Progress Notes * Ramy RAMONDOB:1950 (75 yo M)Acc No.[id number]:04/03/2025 Patient: Ramy HAMMER :1950 A ge:75 Y S ex:Male Address:[address], [address] * Refills Start predniSONE Tablet, 5 MG, Orally, 30, 1 tablet with food or milk, Once a day, 30 days, Refills=11 * true * Date: Generated for Valeriy stallworth/Marixa/eTransmitting on: 0 04/29/2025 10:54 AM EDT
--- NOTE | 2025-04-29 | US_ITS ---
The [address] [address] Patient Name: EFRAÍN RAMON MRN: [id number] date: 1950 Sex: M Assigned Patient Location: [place] Current Patient Location: [place] Accession/Order Number: [id number] Exam Date: 04/29/2025 20:00 Report Date: 04/29/2025 20:02 At the request of: CRYSTAL WINSLOW Procedure: US renal BI US renal BI 04/29/2025 11:26 AM SIGNS AND SYMPTOMS: STAGE 4 CHRONIC KIDNEY DISEASE N18.4 COMPARISON: 10/03/2023. FINDINGS: Right kidney measures 9.1 x 3.9 x 4.3 cm . The right renal cortex measures 1.4 cm in thickness. No hydronephrosis or mass. There is an anechoic cyst at the superior pole measuring up to 2.7 cm. Left kidney measures 10.7 x 3.8 x 5.6 cm . No hydronephrosis or mass. The left renal cortex measures 1.1 cm in thickness. Multiple anechoic cysts are noted measuring up to 5.1 cm in greatest dimension and 4.7 cm in greatest dimension. The urinary bladder is morphologically normal. No free fluid is seen in the pelvis. US/US renal BI IMPRESSION: No hydronephrosis or mass. Simple cysts are noted bilaterally. Impression dictated by: Weston Klein M.D. 04/29/2025 8:02 PM Dictation Location: [place] [address] Electronically authenticated by: [id number] Y Date: 04/29/2025 20:02
--- OUTSIDE RECORDS SUMMARY | 2025-04-29 10:54 | XMS_ITS | CCD ---
Author Organization [facility] Care Team Providers Care Digital Project Manager Name Role Phone DR FABIAN KENNEDY V [...] CHEN Consulting Unavailable ZONIA LAWRENCE Consulting Unavailable HOConsuelo ., DR PAVON Primary [...] DOSHI Attending Unavailable ANN, MEL Attending Unavailable LIBRADO HELM Referring Unavailable LIBRADO HELM Primary Care Unavailable LIBRADO HELM Referring Unavailable LIBRADO HELM Primary Care Unavailable JOE JANG Attending Unavailable ANN, MEL Attending Unavailable LIBRADO HELM Referring Unavailable LIBRADO HELM Primary Care Unavailable Librado Helm MD Primary Care Provider Librado Helm MD Primary Care Provider [phone] JOE JANG Attending Unavailable LIBRADO HELM Referring Unavailable LIBRADO HELM Primary Care Unavailable Librado Helm MD Primary Care Provider [phone] ODELL RODRÍGUEZ Referring Unavailable LAWRENCE, RAMESH CHUL Admitting Unavailable LAWRENCE, RAMESH CHUL Attending Unavailable JANE, BRUCEEED Attending Unavailable REJI, SPENCER Referring Unavailable KIKO, MISSAEL Referring Unavailable KIKO, MISSAEL Referring Unavailable JANE, NASHEED Referring Unavailable KIKO, MISSAEL Referring Unavailable KIKO, MISSAEL Referring Unavailable KIKO, MISSAEL Attending Unavailable KIKO, MISSAEL Referring Unavailable NELLY, ZEV Attending Unavailable NELLY, ZEV Attending Unavailable REJI, SPENCER Referring Unavailable NELLY, SAMAR Attending Unavailable REJI, SPENCER Referring Unavailable KIKO, MISSAEL Referring Unavailable KIKO, MISSAEL Referring Unavailable KIKO, MISSAEL Referring Unavailable RAY, NORBERTO Referring Unavailable ROSA, MAXX Referring Unavailable LAWRENCE, RAMESH CHUL Referring Unavailable LAWRENCE, RAMESH CHUL Referring Unavailable REJI, SPENCER Referring Unavailable REJI, SPENCER Referring Unavailable REJI, SPENCER Referring Unavailable KIKO, MISSAEL Referring Unavailable REJI, SPENCER Referring Unavailable Allergies Allergy Classification Reported Allergen(s) Allergy Type Date of Onset Reaction(s) Facility (4 sources) Penicillins; Translations: [PENICILLINS] Drug allergy (disorder) 4 [facility] (2 sources) Penicillin; Translations: [penicillin] Drug Allergy Weal (disorder) [facility] [place] (7 sources) Penicillins Propensity to adverse reactions to drug 0 [facility] (1 source) Penicillins Propensity to adverse reactions to drug 0 [facility] Medications Current Medications Medication Drug Class(es) Dates Sig (Normalized) Sig (Original) albuterol 0.83 mg/ml inhalation solution (2 sources) beta2-Adrenergic Agonist Start: 02-08-2025 take 2.5 mg by inhalation every six hours as needed Albuterol Sulfate 2.5 mg /3 mL (0.083 %) solution for nebulization Active 2.5 MG INHALATION Every 6 hours as needed February 08, 2025 12:00am take 2 puff(s) by in halation every four hours as needed albuterol (PROVENTIL HFA;VENTOLIN HFA) 9 0 mcg/actuation inhaler Inhale 2 puffs every 4 (four) hours as needed. Active amLODIPine 10 mg oral tablet (9 sources) Dihydropyridine Calcium Channel Tahmina Start: 07-21-2023 End: 06-27-2025 amLODIPine (NORVASC) 10 mg tablet Take 1 tablet (10 mg total) by mouth. 06/27/2024 06/27/2025 Active aspirin 81 mg delayed release oral tablet (8 sources) Platelet Aggregation Inhibitor, Nonsteroidal Anti-inflammatory Drug Start: 08-19-2023 End: 02-15-2024 aspirin 81 mg chewable tablet Chew 1 tablet (81 mg total) and swallow in the morning for 180 days. 90 tablet 1 08/19/2023 02/15/2024 Active Start: 04-22-2023 Aspirin (Adult Low Dose Aspirin) 81 mg tablet,delayed release (DR/EC) Active 81 MG PO Daily February 08, 2025 12:00am Carbidopa / Levodopa (20 sources) Aromatic Amino Acid Decarboxylation Inhibitor, Aromatic Amino Acid Start: 02-08-2025 take 1 tablet by mouth three times daily Carbidopa-Levodopa 25-100 mg tablet extended release Active 1 TAB PO Three times daily February 08, 2025 12:00am Start: 02-08-2025 take 1 tablet by elba th three times daily Carbidopa-Levodopa 25-100 mg tablet Active 1 TAB PO Three times daily February 08, 2025 12:00am Start: 08-26-2023 End: 02-03-2025 take 1 tablet by mouth three times daily before mealtime carbidopa-levodopa (SINEMET CR) 25-100 mg per CR tablet Indications: Parkinsonism, unspecified Parkinsonism type (CMS-HCC) Take 1 tablet by mouth 3 (three) times a day. Please take at 0600/1200/1800, 30-45 mins before meals 270 tablet 2 02/03/2025 Active Start: 08-24-2023 End: 02-03-2025 take 1 tablet by mouth three times daily before mealtime carbidopa-levodopa (SINEMET) 25-100 mg per tablet Indications: Parkinsonism, unspecified Parkinsonism type (CMS-HCC) Take 1 tablet by mouth 3 (three) times a day. Please take at 0600/1200/1800 30-45 mins before meals 270 tablet 2 02/03/2025 Active Start: 04-22-2023 carbidopa-levo dopa 25 mg-100 mg ER Tab Refill(s) 0 Start Date: 04/22/23 Status: Ordered hydrALAZINE hydrochloride 25 mg oral tablet (8 sources) Arteriolar Vasodilator Start: 02-08-2025 take 1 tablet by mouth once daily Hydralazine 25 mg tablet Active 25 MG PO Daily February 08, 2025 12:00am Start: 08-13-2023 End: 08-12-2024 hydrALAZINE (APRESOLINE) 10 mg tablet Take 1 tablet (10 mg total) by mouth. 08/13/2023 08/12/2024 Active memantine hydrochloride 10 mg oral tablet (6 sources) K-pomgwk-W-aspartate Receptor Antagonist Start: 02-03-2025 take 1 tablet by mouth twice daily Memantine 10 mg tablet Active 10 MG PO Twice daily February 08, 2025 12:00am Start: 08-05-2024 End: 02-03-2025 memantine (NAMENDA) 5 mg tab let Indications: Mild dementia with agitation, unspecified dementia type (CMS-HCC) TAKE 1 TABLET (5 MG) DAILY FOR 1 WEEK, THEN INCREASE TO 1 TABLET (5 MG) TWICE DAILY 180 tablet 1 08/28/2024 02/03/2025 Discontinued (Reorder) metoprolol tartrate 25 mg oral tablet (8 sources) beta-Adrenergic Tahmina take 1 tablet by mouth in the morning, then take 1 tablet by mouth at bedtime metoprolol tartrate (LOPRESSOR) 25 mg tablet Take 1 tablet (25 mg total) by mouth in the morning and 1 tablet (25 mg total) before bedtime. Active Potassium Chloride 20 mEq tablet,ER particles/crystals (1 source) Start: 02-09-20 take 1 tablet by mouth once daily Potassium Chloride 20 mEq tablet,ER particles/crystals Active 20 MEQ PO Daily February 08, 2025 12:00am Completed/Discontinued Medications Medication Drug Class(es) Dates Sig (Normalized) Sig (Original) baclofen 10 mg oral tablet (10 sources) gamma-Aminobutyr ic Acid-ergic Agonist Start: 09-18-2023 End: 02-03-2025 take 1 tablet by mouth once daily as needed for muscle spasms baclofen (LIORESAL) 10 mg tablet Indications: Spondylosis of cervical spine , Chronic bilateral low back pain, unspecified whether sciatica present , Spondylosis of lumbar region without myelopathy or radiculopathy Take 1 tablet (10 mg total) by mouth nightly as needed for muscle spasms. 30 tablet 3 02/12/2024 02/03/2025 Discontinued donepezil hydrochloride 10 mg oral tablet (11 sources) Start: 04-22-2023 End: 02-03-2025 take 1 tablet by mouth in the morning donepeziL (ARICEPT) 10 mg tablet Indications: Parkinsonism, unspecified Parkinsonism type (CMS-HCC) Take 1 tablet (10 mg total) by mouth in the morning. 30 tablet 5 08/05/2024 02/03/2025 Discontinued potassium chloride 20 meq extended release oral tablet (9 sources) Start: 04-22-2023 take 1 tablet by [...] with calculus] 05-30-2020 Episodic Cancer of prostate (11 sources) Adenocarcinoma of prostate; Translations: [Malignant neoplasm of prostate] Onset: 07-03-2020 05-28-2020 Chronic Cancer of prostate (1 source) Personal history of malignant neoplasm of prostate; Translations: [PERSONAL HX MALIG NEOPLASM PROSTATE] Onset: 02-10-2023 Episodic Cardiac dysrhythmias (4 sources) Sick sinus syndrome; Translations: [Unspecified atrial fibrillation] Onset: 09-03-2024 Chronic Chronic kidney disease (4 sources) Chronic kidney disease, stage 2 (mild); Translations: [Chronic kidney disease] Onset: 02-10-2023 04-22-2023 Chronic Chronic obstructive pulmonary disease and bronchiectasis (2 sources) Chronic obstructive pulmonary disease with (acute) exacerbation; Translations: [Chronic obstructive lung disease] Onset: 09-01-2022 04-22-2023 Chronic Chronic ulcer of skin (13 sources) Pressure ulcer of right heel, stage 1; Translations: [Chronic ulcer of foot] Onset: 12-17-2022 Chronic Conduction disorders (6 sources) Encounter for checking and testing of cardiac pacemaker pulse generator [battery]; Translations: [Encounter for adjustment and management of other part of cardiac pacemaker] Onset: 10-25-2024 Chronic Deficiency and other anemia [...] 02-10-2023 05-28-2020 Chronic Fluid and electrolyte disorders (8 sources) Hypokalemia; Translations: [Hypo-osmolality and hyponatremia] Onset: 02-09-2023 Episodic Gastrointestinal hemorrhage (2 sources) Hemorrhage of rectum and anus; Translations: [Hemorrhage of anus and rectum] Onset: 05-12-2023 Episodic Gout and other crystal arthropathies (4 sources) Gout, unspecified; Translations: [Idiopathic gout, left ankle and foot] Onset: 09-01-2022 04-22-2023 Chronic Hypertension with complications and secondary hypertension (5 sources) Hypertensive chronic kidney disease with stage 1 through stage 4 chronic kidney disease, or unspecified chronic kidney disease; Translations: [Hypertensive renal disease] Onset: 12-16-2022 02-08-2025 Chronic Malaise and fatigue (2 sources) Weakness; Translations: [WEAKNESS] Onset: 11-17-2022 Episodic Nutritional deficiencies (1 source) Unspecified severe protein-calorie malnutrition; Translations: [UNS SEVERE PROTEIN-CALORIE MLNUTRIT] Onset: 09-01-2022 Chronic Osteoarthritis (1 source) Unspecified osteoarthritis, unspecified site; Translations: [UNSPECIFIED OSTEOARTHRITIS UNS SITE] Onset: 02-10-2023 Chronic Other aftercare (1 source) Other jail (current) drug therapy; Translations: [OTH SENIOR CARE 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 THERAPY] Onset: 02-10-2023 Episodic Other aftercare (1 source) custodial (current) use of aspirin; Translations: [[employer] MAINTENANCE CURRENT USE OF ASPIRIN] Onset: 02-10-2023 Episodic [...] Translations: [Cervical spondylosis] Onset: 10-08-2022 04-22-2023 Chronic Unclassified (13 sources) Parkinsonism; Translations: [Parkinsonism, unspecified Parkinsonism type] [...] (1 source) New Patient Onset: 08-05-2024 Unclassified (2 sources) Parkinsonism, unspecified; Translations: [Parkinsonism, unspecified] Onset: 12-17-2022 Unclassified (2 sources) Unspecified dementia, mild, with agitation; Translations: [Unspecified [...] 04-22-2023 Episodic Genitourinary symptoms and ill-defined conditions (11 sources) Retention of urine, unspecified; Translations: [Retention of urine] Onset: 07-03-2020 09-18-2023 Episodic Mood disorders (8 sources) Mood disorders Onset: 09-18-2023 Resolved: 02-03-2025 09-18-2023 Nutritional deficiencies (1 source) Deficiency of other specified B group vitamins; Translations: [DEFICIENCY SPEC B GROUP VITAMINS] Onset: 09-01-2022 Episodic Other connective tissue disease (1 source) Pain in left foot; Translations: [PAIN IN LEFT FOOT] Onset: 09-01-2022 Episodic Other connective tissue disease (1 source) Other specified soft tissue disorders; Translations: [OTHER SPEC SOFT TISSUE DISORDERS] Onset: 09-01-2022 Episodic Other connective tissue disease (8 sources) Other symptoms and signs involving the musculoskeletal system; Translations: [Other musculoskeletal symptoms referable to limbs] Onset: 11-18-2022 11-18-2022 Episodic Other gastrointestinal disorders (1 source) Heartburn; Translations: [HEARTBURN] Onset: 09-01-2022 Episodic Other hereditary and degenerative nervous system conditions (10 sources) Tardive dyskinesia; Translations: [Drug induced subacute [...] Onset: 12-17-2022 Episodic Other nervous system disorders (10 sources) Abnormal gait; Translations: [Unsteadiness on feet] [...] [Syncope and collapse] Onset: 09-03-2024 Episodic Unclassified (8 sources) Onset: 09-27-2023 Resolved: 02-12-2024 09-27-2023 Unclassified (1 source) Other pericardial effusion (noninflammatory); Translations: [Other pericardial effusion (noninflammatory)] Onset: 09-03-2024 Results Test Name Value Interpretation Reference Range Facility Office [facility] 10-25-2024 Follow-up visit [id number] Efraín Johnson 1950 M Date Provider Department Center 10/25/2024 MISSAEL PRINCE Family History Problem Relation Age of Onset Stroke Father Stroke Paternal Grandmother Stroke Paternal Grandfather Family Status - Relation Status Age at Father Paternal Grandmother Paternal Grandfather Level of Service:69921 MO OFFICE/OUTPATIENT ESTABLISHED LOW MDM 20 MIN [facility] Office [facility] 09-26-2024 Follow-up visit [id number] Efraín Johnson 1950 M [facility] Provider Department Center 09/26/2024 ZEV JOHNSON Family History Problem Relation Age of Onset Stroke Father Stroke Paternal Grandmother Stroke Paternal Grandfather Family Status - Relation Status Age at Father Paternal Grandmother Paternal Grandfather Level of Service:51558 MO POSTOP FOLLOW UP VISIT RELATED TO ORIGINAL PX [facility] Office [facility] 09-16-2024 Follow-up visit [id number] Efraín Johnson 1950 [facility] Provider Department Center 09/16/2024 ZEV JOHNSON Family History Problem Relation Age of Onset Stroke Father Stroke Paternal Grandmother Stroke Paternal Grandfather Family Status - Relation Status Age at Father Paternal Grandmother Paternal Grandfather Level of Service:96030 MO POSTOP FOLLOW UP VISIT RELATED TO ORIGINAL PX Reason for Visit and Comments: Wound Check [[id number]] - S/p PPM insertion with Dr. Hoover on 09/07/2024 [facility] Bryan 09-07-2024 LUIS - Attestation signed by Missael Hoover MD at 09/07/2024 2:15 PM By using [...] additional personal documentation from me. Patient: Efraín Johnson Choose an anesthesia record to view details [...] attending and fellow. Additional Equipment Requests Normal [facility] APTTon 09-07-2024 ACTIVATED PARTIAL THROMBOPLASTIN TIME IN PPP BY COAGULATION ASSAY 31.9 Seconds Normal 25.0-35.0 [facility] Comment on above: Result Comment: Clin ical significance of the APTT is questionable in the presence of heparin. Performed By: #### L [id number] #### [facility] ([facility]) [address] [place] [address] CBC WITH AUTO DIFFERENTIALon 09-07-2024 Basophils (Bld) [#/Vol] 0.07 10*3/uL Normal 0.00-0.20 [facility] Comment on above: Performed By: #### L [id number] #### [facility] ([facility]) [address] [place] [address] Basophils/100 WBC (Bld) 0.9 % Normal 0.0-1.0 [facility] Comment on above: Performed By: #### L [id number] #### [facility] (BEAKER) [address] [place] [address] Eosinophils (Bld) [#/Vol] 0.06 10*3/uL Normal 0.00-0.50 [facility] Comment on above: Performed By: #### L [id number] #### [facility] [address] [place] [address] Eosinophils/100 WBC (Bld) 0.7 % Normal 0.0-6.0 [facility] Comment on above: Performed By: #### L [id number] #### [facility] ([facility]) [address] [place] [address] Erythrocyte distribution width (RBC) [Ratio] 15.2 % High 11.5-15.0 [facility] Comment on above: Performed By: #### L [id number] #### [facility] ([facility]) [address] [place] [address] ERYTHROCYTE MEAN CORPUSCULAR HEMOGLOBIN CONCENTRATION (G/DL) BY AUTOMATED 31.9 g/dL Low 32.0-35.0 [facility] Comment on above: Performed By: #### L [id number] #### [facility] ([facility]) [address] [place] [address] Hematocrit (Bld) [Volume fraction] 44.2 % Normal 39.0-55.0 [facility] Comment on above: Performed By: #### L [id number] #### [facility] (BEAKER) [address] [place] [address] Hemoglobin (Bld) [Mass/Vol] 14.1 g/dL Normal 13.0-17.0 [facility] Comment on above: Performed By: #### L [id number] #### [facility] (BEAKER) [address] [place] [address] Immature granulocytes (Bld) [#/Vol] 0.01 10*3/uL Normal 0.00-0.20 [facility] Comment on above: Performed By: #### L [id number] #### [facility] ([facility]) [address] [place] [address] Immature granulocytes/100 WBC (Bld) 0.1 % Normal 0.0-1.0 [facility] Comment on above: Performed By: #### L [id number] #### [facility] ([facility]) [address] [facility] [place] [address] Lymphocytes (Bld) [#/Vol] 1.19 10*3/uL Low 1.20-4.00 [facility] Comment on above: Performed By: #### L [id number] #### [facility] ([facility]) [address] [place] [address] Lymphocytes/100 WBC (Bld) 14.8 % Low 20.0-45.0 [facility] Comment on above: Performed By: #### L [id number] #### [facility] ([facility]) [address] [place] [address] MCH (RBC) [Entitic mass] 27.5 pg Normal 27.0-33.0 [facility] Comment on above: Performed By: #### L [id number] #### [facility] [address] [place] [address] MCV (RBC) [Entitic vol] 86.2 fL Normal 82.0-98.0 [facility] Comment on above: Performed By: #### L [id number] #### [facility] [address] [place] [address] Monocytes (Bld) [#/Vol] 0.86 10*3/uL Normal 0.10-1.00 [facility] Comment on above: Performed By: #### L [id number] #### [facility] (BEAKER) [address] [place] [address] Monocytes/100 WBC (Bld) 10.7 % Normal 5.0-12.0 [facility] Comment on above: Performed By: #### L [id number] #### [facility] ([facility]) [address] [place] [address] Neutrophils (Bld) [#/Vol] 5.83 10*3/uL Normal 1.60-7.60 [facility] Comment on above: Performed By: #### L [id number] #### [facility] ([facility]) [address] [place] [address] Neutrophils/100 WBC (Bld) 72.8 % High 40.0-72.0 [facility] Comment on above: Performed By: #### L [id number] #### [facility] ([facility]) [address] [place] [address] NRBC (PER 100 WBCS) BY AUTOMATED COUNT 0.0 % Normal 0 [facility] Comment on above: Performed By: #### L [id number] #### [facility] ([facility]) [address] [place] [address] PLATELETS (10*3/UL) IN BLOOD AUTOMATED COUNT 265 10*3/uL Normal 150-400 [facility] Comment on above: Performed By: #### L [id number] #### [facility] ([facility]) [address] [place] [address] RBC (Bld) [#/Vol] 5.13 10*6/uL Normal 4.20-5.70 [facility] Comment on above: Performed By: #### L [id number] #### [facility] ([facility]) [address] [place] [address] WBC (Bld) [#/Vol] 8.02 10*3/uL Normal 4.00-10.60 [facility] Comment on above: Performed By: #### L [id number] #### [facility] ([facility]) [address] [place] [address] COMPREHENSIVE METABOLIC PANE Peter 09-07-2024 Albumin [Mass/Vol] 4.4 g/dL Normal 3.5-5.7 [facility] Comment on above: Performed By: #### L [id number] #### [facility] ([facility]) [address] [place] [address] ALP [Catalytic activity/Vol] 72 U/L Normal 34-104 [facility] Comment on above: Performed By: #### L [id number] #### [facility] ([facility]) [address] [place] [address] ALT [Catalytic activity/Vol] 3 U/L Low 7-52 [facility] Comment on above: Performed By: #### L [id number] #### [facility] ([facility]) [address] [place] [address] Anion gap [Moles/Vol] 12 mmol/L Normal 7-20 [facility] Comment on above: Performed By: #### L [id number] #### [facility] ([facility]) [address] [place] [address] AST [Catalytic activity/Vol] 14 U/L Normal 13-39 [facility] Comment on above: Performed By: #### L [id number] #### [facility] ([facility]) [address] [place] [address] Bilirubin [Mass/Vol] 0.7 mg/dL Normal 0.3-1.0 [facility] Comment on above: Performed By: #### L [id number] #### [facility] ([facility]) [address] [place] [address] Calcium [Mass/Vol] 8.7 mg/dL Normal 8.6-10.3 [facility] Comment on above: Performed By: #### L [id number] #### [facility] ([facility]) [address] [place] [address] Chloride [Moles/Vol] 109 mmol/L High 98-107 [facility] Comment on above: Performed By: #### L [id number] #### [facility] ([facility]) [address] [place] [address] CO2 [Moles/Vol] 20 mmol/L Low 21-31 [facility] Comment on above: Performed By: #### L [id number] #### [facility] ([facility]) [address] [place] [address] Creatinine [Mass/Vol] 1.77 mg/dL High 0.70-1.30 [facility] Comment on above: Performed By: #### L [id number] #### [facility] ([facility]) [address] [place] [address] GLOMERULAR FILTRATION RATE ML/MIN/1.73 SQ M.PREDICTED 40.1 mL/min/1.73m*2 Low >60.0 [facility] Comment on above: Result Comment: The [facility]???s estimated glomerular filtration rate (eGFR) will no [...] individuals. Performed By: #### L [id number] #### [facility] ([facility]) [address] [place] [address] Glucose [Mass/Vol] 87 mg/dL Normal 70-100 [facility] Comment on above: Performed By: #### L [id number] #### [facility] ([facility]) [address] [place] [address] Potassium [Moles/Vol] 4.3 mmol/L Normal 3.5-5.1 [facility] Comment on above: Performed By: #### L [id number] #### [facility] ([facility]) [address] [place] [address] Protein [Mass/Vol] 6.5 g/dL Normal 6.0-8.3 [facility] Comment on above: Performed By: #### L [id number] #### [facility] (BEAKER) [address] [place] [address] Sodium [Moles/Vol] 137 mmol/L Normal 136-145 [facility] Comment on above: Performed By: #### L [id number] #### [facility] (BEAKER) [address] [place] [address] Urea nitrogen [Mass/Vol] 24 mg/dL Normal 7-25 [facility] Comment on above: Performed By: #### L [id number] #### [facility] ([facility]AKER) [address] [place] [address] UREA NITROGEN/CREATININE (MASS RATIO) IN SER/PLAS 13.6 Normal [facility] Comment on above: Performed By: #### L [id number] #### [facility] ([facility]AKER) [address] [place] [address] EDPROVon 09-07-2024 EDPROV History of Present Illness [...] Pt is on aspirin and sees a director customer. . History provided by: Patient and caregiver (daughter) [place] Coma Scale Score: 15 History Past Medical [...] 1431 ThuSep 07, 2024 1410 Spoke to Chief Medical Technologist staff who took patient to EP lab [...] shortness of breath. after discussing case with Chief Medical Technologist nurse plan to discharge from dentures lab technician [NF] ED Course User Index [NF] [place] [...] physical exam, pt will be sent to Chief Medical Technologist for pacemaker placement due to 15-second pause identified on loop recorder. Cardiology aware and will be sending patient to Chief Medical Technologist.. Dr. Lara has independently reviewed the radiologist [...] discharge or sooner for any concerns. Missael Hoover MD Cardiac Electrophysiology XR chest 2 views (more content not included)... Normal [facility] HPon 09-07-2024 - Attestation signed by Missael Hoover MD at 09/07/2024 2:16 PM By using [...] disease, and Parkinson disease who presented to [facility] ED with fall after [...] Dementia (CMS/HCC), Hypokalemia, Hyponatremia, and Parkinson disease (CMS/HCC). Surgical History He has a past surgical [...] Rate and Rhy (more content not included)... Normal [facility] NURSNOTEtl 09-07-2024 NURSNOTRiccardo RN educated pt on d/ c instructions. [...] of unit with all of belongings. Normal [facility] PROTIME-INRon 09-07-2024 INR IN PPP BY COAGULATION ASSAY 1.04 Normal 0.90-1.10 [facility] Comment on above: Result Comment: ACCC P [...] 1995;[id number]. Performed By: #### L [id number] #### [facility] (BEAKER) [address] [place] [address] PROTHROMBIN TIME (PT) IN PPP BY COAGULATION ASSAY 13.6 Seconds Normal 12.3-14.8 [facility] Comment on above: Performed By: #### L [id number] #### [facility] (BEAKER) [address] [place] [address] TROPONIN Ion 09-07-2024 Troponin I.cardiac [Mass/Vol] 0.01 ng/mL Normal 0.00-0.04 [facility] Comment on above: Performed By: #### L [id number] #### [facility] (PAUL) [address] [place] [address] 36on 09-06-2024 36 Attempted discharge follow up phone call. Spoke to pts daughter Mere that said he was not home presently. Left message with daughter. Normal [facility] Telephoneon 09-06-2024 Telephone [phone] Efraín Johnson 1950 M Date Provider Department Center 09/06/2024 VIVIAN DAMCIO [place] [facility] Family History Problem Relation Age of Onset Stroke Father Stroke Paternal Grandmother Stroke Paternal Grandfather Family Status - Relation Status Age at Father Paternal Grandmother Paternal Grandfather Normal [facility] 30on 09-05-2024 30 Problem: Pain - Adul [...] and behaviors that affect risk of falls [place] fall precautions as indicated by assessment Educate [...] Absence of (more content not included)... Normal [facility] 30 The patient is Moderately Stable - [...] and behaviors that affect risk of falls [place] fall precautions as indicated by assessment Educate patient/family on patient safety, including physical limitations Instruct patient to call for assistance with activity based on assessment Modify environment to reduce risk of injury Normal [facility] BASIC METABOLIC PANELon 12-0 Anion gap [Moles/Vol] 12 mmol/L Normal 7-20 [facility] Comment on above: Performed By: #### L [id number] ####[facility] ([facility])[address] [place] [address] Calcium [Mass/Vol] 8.8 mg/dL Normal 8.6-10.3 [facility] Comment on above: Performed By: #### L [id number] ####[facility] ([facility] [place] [address] Chloride [Moles/Vol] 107 mmol/L Normal 98-107 [facility] Comment on above: Performed By: #### L [id number] ####[facility] (BEAKER)[address] [place] [address] CO2 [Moles/Vol] 20 mmol/L Low 21-31 [facility] Comment on above: Performed By: #### L [id number] ####[facility] (BEAKER)[address] [place] [address] Creatinine [Mass/Vol] 1.38 mg/dL High 0.70-1.30 [facility] Comment on above: Performed By: #### L [id number] ####[facility] ([facility])[address] [address] GLOMERULAR FILTRATION RATE ML/MIN/1.73 SQ M.PREDICTED 54.0 mL/min/1.73m*2 Low >60.0 [facility] Comment on above: Result Comment: The [facility]???s estimated glomerular filtration rate (eGFR) will no [...] of individuals. Performed By: #### L [id number] ####[facility] ([facility])[address] [place] [address] Glucose [Mass/Vol] 89 mg/dL Normal 70-100 [facility] Comment on above: Performed By: #### L [id number] ####[facility] ([facility])[address] [place] [address] Potassium [Moles/Vol] 3.6 mmol/L Normal 3.5-5.1 [facility] Comment on above: Performed By: #### L [id number] ####[facility] ([facility])[address] [place] [address] Sodium [Moles/Vol] 135 mmol/L Low 136-145 [facility] Comment on above: Performed By: #### L [id number] ####[facility] ([facility])[address] [place] [address] Urea nitrogen [Mass/Vol] 18 mg/dL Normal 7-25 [facility] Comment on above: Performed By: #### L [id number] ####[facility] ([facility])[address] [place] [address] UREA NITROGEN/CREATININE (MASS RATIO) IN SER/PLAS 13.0 Normal [facility] Comment on above: Performed By: #### L [id number] ####[facility] ([facility])[address] [place] [address] CBCon 09-05-2024 Erythrocyte distribution width (RBC) [Ratio] 14.9 % Normal 11.5-15.0 [facility] Comment on above: Performed By: #### L [id number] #### [facility] ([facility]) [address] [place] [address] ERYTHROCYTE MEAN CORPUSCULAR HEMOGLOBIN CONCENTRATION (G/DL) BY AUTOMATED 33.2 g/dL Normal 32.0-35.0 [facility] Comment on above: Performed By: #### L [id number] #### [facility] ([facility]) [address] [place] [address] Hematocrit (Bld) [Volume fraction] 45.2 % Normal 39.0-55.0 [facility] Comment on above: Performed By: #### L [id number] #### [facility] ([facility]) [address] [place] [address] Hemoglobin (Bld) [Mass/Vol] 15.0 g/dL Normal 13.0-17.0 [facility] Comment on above: Performed By: #### L [id number] #### [facility] ([facility]) [address] [place] [address] MCH (RBC) [Entitic mass] 27.3 pg Normal 27.0-33.0 [facility] Comment on above: Performed By: #### L [id number] #### [facility] ([facility]) [address] [place] [address] MCV (RBC) [Entitic vol] 82.2 fL Normal 82.0-98.0 [facility] Comment on above: Performed By: #### L [id number] #### [facility] [address] [place] [address] PLATELETS (10*3/UL) IN BLOOD AUTOMATED COUNT 267 10*3/uL Normal 150-400 [facility] Comment on above: Performed By: #### L [id number] #### [facility] ([facility]) [address] [place] [address] RBC (Bld) [#/Vol] 5.50 10*6/uL Normal 4.20-5.70 [facility] Comment on above: Performed By: #### L [id number] #### [facility] ([facility]) [address] [place] [address] WBC (Bld) [#/Vol] 7.60 10*3/uL Normal 4.00-10.60 [facility] Comment on above: Performed By: #### L [id number] #### [facility] ([facility]) [address] [facility] [place] [address] CONSULTon 09-05-2024 CONSULT - Attestation signed by Missael Hoover MD at 09/09/2024 3:48 PM By using [...] disease, and Parkinson disease who presented to [facility] ED with fall after [...] morning. memantine (N (more content not included)... [facility] CT HEAD WO IV CONTRASTon CT [...] Macias MD. Not Vldtd Invalid Interpretation Code [facility] 30on 09-04-2024 30 The patient is Moderately [...] and behaviors that affect risk of falls [place] fall precautions as indicated by assessment Instruct [...] and prevent overall improvement and discharge Normal [facility] 30 The patient is Moderately Stable - Low risk of patient condition declining or worsening The patient's goals for the shift include The clinical goals for the shift include vss Normal [facility] 30 The patient is Moderately Stable - Low risk of patient condition declining or worsening The patient's goals for the shift include COMFORT The clinical goals for the shift include vss Normal [facility] CBC WITH AUTO DIFFERENTIALon 09-04-2024 Basophils (Bld) [#/Vol] 0.04 10*3/uL Normal 0.00-0.20 [facility] Comment on above: Performed By: #### L [id number] #### [facility] (AKER) [address] [place] [address] Basophils/100 WBC (Bld) 0.4 % Normal 0.0-1.0 [facility] Comment on above: Performed By: #### L [id number] #### [facility] (BEAKER) [address] [place] [address] Eosinophils (Bld) [#/Vol] 0.01 10*3/uL Normal 0.00-0.50 [facility] Comment on above: Performed By: #### L [id number] #### [facility] (BEAKER) [address] [place] [address] Eosinophils/100 WBC (Bld) 0.1 % Normal 0.0-6.0 [facility] Comment on above: Performed By: #### L [id number] #### [facility] (BEAKER) [address] [place] [address] Erythrocyte distribution width (RBC) [Ratio] 14.9 % Normal 11.5-15.0 [facility] Comment on above: Performed By: #### L [id number] #### [facility] ([facility] [address] [place] [address] ERYTHROCYTE MEAN CORPUSCULAR HEMOGLOBIN CONCENTRATION (G/DL) BY AUTOMATED 32.4 g/dL Normal 32.0-35.0 [facility] Comment on above: Performed By: #### L [id number] #### [facility] ([facility]) [address] [place] [address] Hematocrit (Bld) [Volume fraction] 45.0 % Normal 39.0-55.0 [facility] Comment on above: Performed By: #### L [id number] #### [facility] ([facility]) [address] [place] [address] Hemoglobin (Bld) [Mass/Vol] 14.6 g/dL Normal 13.0-17.0 [facility] Comment on above: Performed By: #### L [id number] #### [facility] ([facility] [address] [place] [address] Immature granulocytes (Bld) [#/Vol] 0.02 10*3/uL Normal 0.00-0.20 [facility] Comment on above: Performed By: #### L [id number] #### [facility] (BEAKER) [address] [place] [address] Immature granulocytes/100 WBC (Bld) 0.2 % Normal 0.0-1.0 [facility] Comment on above: Performed By: #### L [id number] #### [facility] (BEAKER) [address] [place] [address] Lymphocytes (Bld) [#/Vol] 1.17 10*3/uL Low 1.20-4.00 [facility] Comment on above: Performed By: #### L [id number] #### [facility] (BEAKER) [address] [place] [address] Lymphocytes/100 WBC (Bld) 11.8 % Low 20.0-45.0 [facility] Comment on above: Performed By: #### L [id number] #### [facility] ([facility]) [address] [place] [address] MCH (RBC) [Entitic mass] 27.2 pg Normal 27.0-33.0 [facility] Comment on above: Performed By: #### L [id number] #### [facility] ([facility]) [address] [facility] [place] [address] MCV (RBC) [Entitic vol] 83.8 fL Normal 82.0-98.0 [facility] Comment on above: Performed By: #### L [id number] #### [facility] ([facility]) [address] [place] [address] Monocytes (Bld) [#/Vol] 0.89 10*3/uL Normal 0.10-1.00 [facility] Comment on above: Performed By: #### L [id number] #### [facility] ([facility]) [address] [place] [address] Monocytes/100 WBC (Bld) 9.0 % Normal 5.0-12.0 [facility] Comment on above: Performed By: #### L [id number] #### [facility] ([facility]) [address] [place] [address] Neutrophils (Bld) [#/Vol] 7.78 10*3/uL High 1.60-7.60 [facility] Comment on above: Performed By: #### L [id number] #### [facility] ([facility]) [address] [facility] [place] [address] Neutrophils/100 WBC (Bld) 78.5 % High 40.0-72.0 [facility] Comment on above: Performed By: #### L [id number] #### [facility] [address] [place] [address] NRBC (PER 100 WBCS) BY AUTOMATED COUNT 0.0 % Normal 0 [facility] Comment on above: Performed By: #### L [id number] #### [facility] ([facility]) [address] [place] [address] PLATELETS (10*3/UL) IN BLOOD AUTOMATED COUNT 279 10*3/uL Normal 150-400 [facility] Comment on above: Performed By: #### L [id number] #### [facility] ([facility]) [address] [place] [address] RBC (Bld) [#/Vol] 5.37 10*6/uL Normal 4.20-5.70 [facility] Comment on above: Performed By: #### L [id number] #### [facility] ([facility]) [address] [place] [address] WBC (Bld) [#/Vol] 9.91 10*3/uL Normal 4.00-10.60 [facility] Comment on above: Performed By: #### L [id number] #### [facility] ([facility]) [address] [place] [address] COMPREHENSIVE METABOLIC PANE Peter 09-04-2024 Albumin [Mass/Vol] 4.3 g/dL Normal 3.5-5.7 [facility] Comment on above: Performed By: #### L [id number] ####[facility] ([facility])[address] [place] [address] ALP [Catalytic activity/Vol] 70 U/L Normal 34-104 [facility] Comment on above: Performed By: #### L [id number] ####[facility] ([facility])[address] [place] [address] ALT [Catalytic activity/Vol] 8 U/L Normal 7-52 [facility] Comment on above: Performed By: #### L [id number] ####[facility] ([facility] [place] [address] Anion gap [Moles/Vol] 14 mmol/L Normal 7-20 [facility] Comment on above: Performed By: #### L [id number] ####[facility] (BEAKER)[address] [place] [address] AST [Catalytic activity/Vol] 14 U/L Normal 13-39 [facility] Comment on above: Performed By: #### L [id number] ####[facility] (BEAKER)[address] [place] [address] Bilirubin [Mass/Vol] 1.4 mg/dL High 0.3-1.0 [facility] Comment on above: Performed By: #### L [id number] ####[facility] (BEAKER)[address] [place] [address] Calcium [Mass/Vol] 9.1 mg/dL Normal 8.6-10.3 [facility] Comment on above: Performed By: #### L [id number] ####[facility] (BEAKER)[address] [place] [address] Chloride [Moles/Vol] 110 mmol/L High 98-107 [facility] Comment on above: Performed By: #### L [id number] ####[facility] (BEAKER)[address] [place] [address] CO2 [Moles/Vol] 19 mmol/L Low 21-31 [facility] Comment on above: Performed By: #### L [id number] ####[facility] (BEAKER)[address] [place] [address] Creatinine [Mass/Vol] 1.47 mg/dL High 0.70-1.30 [facility] Comment on above: Performed By: #### L [id number] ####[facility] (BEAKER)[address] [place] [address] GLOMERULAR FILTRATION RATE ML/MIN/1.73 SQ M.PREDICTED 50.1 mL/min/1.73m*2 Low >60.0 [facility] Comment on above: Result Comment: The [facility]???s estimated glomerular filtration rate (eGFR) will no [...] of individuals. Performed By: #### L [id number] ####[facility] ([facility])[address] [place] [address] Glucose [Mass/Vol] 87 mg/dL Normal 70-100 [facility] Comment on above: Performed By: #### L [id number] ####[facility] ([facility])[address] [place] [address] Potassium [Moles/Vol] 4.0 mmol/L Normal 3.5-5.1 [facility] Comment on above: Performed By: #### L [id number] ####[facility] ([facility])[address] [place] [address] Protein [Mass/Vol] 6.6 g/dL Normal 6.0-8.3 [facility] Comment on above: Performed By: #### L [id number] ####[facility] ([facility])[address] [place] [address] Sodium [Moles/Vol] 139 mmol/L Normal 136-145 [facility] Comment on above: Performed By: #### L [id number] ####[facility] ([facility])[address] [place] [address] Urea nitrogen [Mass/Vol] 18 mg/dL Normal 7-25 [facility] Comment on above: Performed By: #### L [id number] ####[facility] ([facility])[address] [place] [address] UREA NITROGEN/CREATININE (MASS RATIO) IN SER/PLAS 12.2 Normal [facility] Comment on above: Performed By: #### L [id number] ####[facility] ([facility])[address] [place] [address] CONSULTon 12-08-2024 CONSULT - Attestation signed by Norberto Ray [...] of recurrent syncopal episodes and follows with [facility] cardiology clinic outpatient. Patient [...] -- -- -- -- -- -- -- 09/03/242319 (!) 145/94 -- -- 84 15 94 [...] EYES: P (more content not included)... Normal [facility] NURSNOTEon 09-04-2024 NURSNOTE Patient pleasantly confused and restless this shift. Pulled IV x3 near start of shift. IV's replaced x2, warren sleeves ordered and applied. Track Laying Supervisor notified Dr. Hale that patient continues to be restless with several attempts to rise from bed without assistance. Melatonin administered at HS, ineffective for sleep promotion. Order received for Ativan 0.5mg PO. Patient compliant with medication administration. Will continue to monitor this shift. Normal [facility] TSHon 09-04-2024 THYROTROPIN (MIU/L) IN SER/PLAS BY DETECTION LIMIT <= 0.05 MIU/L 0.56 mIU/L Normal 0.34-5.60 [facility] Comment on above: Performed By: #### L [id number] #### [facility] ([facility]) [address] [place] [address] POCT GLUCOSE METER UNSOLICIT ED RESULTSon 09-03-2024 Glucose [Mass/Vol] 107 mg/dL High 70-105 [facility] Comment on above: Order Comment: Waive d Testing in the ED is performed under the ED CLIA certificate #[id number]. Result Comment: [id number] [id number] Performed By: #### L [id number] #### [facility] ([facility]) [address] [place] [address] TROPONIN Ion 09-03-2024 Troponin I.cardiac [Mass/Vol] 0.01 ng/mL Normal 0.00-0.04 [facility] Comment on above: Performed By: #### L [id number] #### [facility] ([facility]) [address] [place] [address] Office Visiton 06-01-2024 Follow-up visit [id number] Efraín Johnson 1950 M Date Provider Department Center 06/01/2024 ZEV JOHNSON Family History Problem Relation Age of Onset Stroke Father Stroke Paternal Grandmother Stroke Paternal Grandfather Family Status - Relation Status Age at Father Paternal Grandmother Paternal Grandfather Level of Service:04569 MO OFFICE/OUTPATIENT ESTABLISHED MOD MDM 30 MIN Reason for Visit and Comments: Hyperlipidemia [182] Hypertension [317678] - Pt is here for a six month follow up. Normal [facility] Outside Colonoscopyon 2022 Outside Colonoscopy [id number] .00CD:127 Normal [facility] Insurance Correspondenceon 0 05-14-2023 Insurance Correspondence [id number]# 1.00CD:127 Normal [facility] Consent for Procedure/Surger yon 05-13-2023 Consent for Procedure/Surgery [id number] .00CD:127 Normal [facility] Ambulatory Visit Summaryon 0 05-12-2023 Ambulatory [...] Epidermoid cyst of skin of back Normal [facility] ED Note-Physicianon 04-15-20 ED Note-Physician [id number]#1 .00CD:127 Normal [facility] RAD - CT Reporton 04-15-2023 RAD - CT Report [id number] .00CD:127 Normal [facility] Physician Referralon 023 Physician Referral [id number] .00CD:127 Normal [facility] Physician Referralon 023 Physician Referral [id number] .00CD:127 Normal [facility] BLOOD CULTURE ID PANELon A. baumannii Not detected Normal NOT DETECTED [facility] Comment on above: Performed By: #### B CID2 ####[facility] [address] [place] [address]Dr. Flaco Lawrence Bacteriodes fragilis Not detected Normal NOT DETECTED [facility] Comment on above: Performed By: #### B CID2 ####[facility] [address] [place] [address]Dr. Flaco Lawrence BCID CONTROLS PASSED Normal [facility] Comment on above: Performed By: #### B CID2 ####[facility] [address] [place] [address]Dr. Flaco Lawrence BCIDBTHD BLOOD CULTURE BOTTLE INFORMATION Normal [facility] Comment on above: Performed By: #### B CID2 ####[facility] [address] [place] [address]Dr. Flaco Lawrence BCIDHD1 ANTIMICROBIAL RESISTANCE GENES Normal [facility] Comment on above: Performed By: #### B CID2 ####[facility] [address] [place] [address]Dr. Flaco Lawrence BCIDHD2 SEE BELOW Normal [facility] Comment on above: Result Comment: Note : Antimicrobial resitance can occur via multiple mechanisms. A Not Detected result for the [employer] antomicrobial resistance gene assays does not indicate antimicrobial susceptibility. Subculturing is required for species identification and susceptibility testing of isolates. Performed By: #### B CID2 ####[facility] [address] [place] [address]Dr. Flaco Lawrence BCIDHD3 Positive Normal [facility] Comment on above: Performed By: #### B CID2 ####[facility] Szuuhmltpd57[address] [place], [place] [address]Dr. Flaco Lawrence BCIDHD4 Negative Normal [facility] Comment on above: Performed By: #### B CID2 ####[facility] Ztvtrzdcup1522[address] [place], [place] [address]Dr. Flaco Lawrence BCIDHD5 YEAST Normal [facility] Comment on above: Performed By: #### B CID2 ####[facility] Bfbqwezoax4458[address] [place], [place] [address]Dr. Flaco Lawrence Bottle Set: Set 2 Normal [facility] Comment on above: Performed By: #### B CID2 ####[facility] Uaocuvhrmf4[address] [place], [place] [address]Dr. Flaco Lawrence Bottle: Pediatric Normal [facility] Comment on above: Performed By: #### B CID2 ####[facility] Rybrwtfwtp7086[address] [place], [place] [address]Dr. Purviedith Lawrence C. neoformans/gattii Not detected Normal NOT DETECTED [facility] Comment on above: Performed By: #### B CID2 ####[facility] Urzeumpkhm065[address] [place], [place] [address]Dr. Purviedith Lawrence Angela albicans Not detected Normal NOT DETECTED [facility] Comment on above: Performed By: #### B CID2 ####[facility] Cahuvilfvo6164[address] [place], [place] [address]Dr. Purviedith Lawrence Angela auris Not detected Normal NOT DETECTED [facility] Comment on above: Performed By: #### B CID2 ####[facility] Mcgpfdqsyg3298[address] [place], [place] [address]Dr. Flaco Lawrence Angela glabrata Not detected Normal NOT DETECTED [facility] Comment on above: Performed By: #### B CID2 ####[facility] Jdgwhggbut7329[address] [place], [place] [address]Dr. Flaco Lawrecne Angela Krusei Not detected Normal NOT DETECTED [facility] Comment on above: Performed By: #### B CID2 ####[facility] Jqfkmsetwb639[address] [place], [place] [address]Dr. Yiedith Lawrence Angela Parapsilosis Not detected Normal NOT DETECTED [facility] Comment on above: Performed By: #### B CID2 ####[facility] Ipqlmqdxyv6044[address] [place], [place] [address]Dr. Flaco Lawrence Angela Tropicalis Not detected Normal NOT DETECTED [facility] Comment on above: Performed By: #### B CID2 ####[facility] Ktfzhkikap4399[address] [place], [place] [address]Dr. Flaco Lawrence CTX-M Resistant Gene Not Applicable Normal NOT DETECTE D [facility] Comment on above: Performed By: #### B CID2 ####[facility] Jmhzpunwjc2596[address] [place], [place] [address]Dr. Flaco Lawrence E. Cloacae complex Not detected Normal NOT DETECTED [facility] Comment on above: Performed By: #### B CID2 ####[facility] Zhymowotam2844[address] [place], [place] [address]Dr. Flaco Lawrence E. faecalis Not detected Normal NOT DETECTED [facility] Comment on above: Performed By: #### B CID2 ####[facility] Xsffkmsaax2238[address] [place], [place] [address]Dr. Flaco Lawrence E. faecium Not detected Normal NOT DETECTED [facility] Comment on above: Performed By: #### B CID2 ####[facility] Ztuewpibls706[address] [place], [place] [address]Dr. Flaco Lawrence Enterobacteriaceae Not detected Normal NOT DETECTED [facility] Comment on above: Performed By: #### B CID2 ####[facility] Slfigsrban827[address] [place], [place] [address]Dr. Yiedith Lawrence Escherichia coli Not detected Normal NOT DETECTED [facility] Comment on above: Performed By: #### B CID2 ####[facility] Iolryetcev9306[address] [place], [place] [address]Dr. Flaco Lawrence H. influenzae Not detected Normal NOT DETECTED [facility] Comment on above: Performed By: #### B CID2 ####[facility] Braaazwgzo6158[address] [place], [place] [address]Dr. Flaco Lawrence IMP Resistant Gene Not Applicable Normal NOT DETECTED [facility] Comment on above: Performed By: #### B CID2 ####[facility] Bazxwzwjpj9701[address] [place], [place] [address]Dr. Flaco Lawrence K. oxytoca Not detected Normal NOT DETECTED [facility] Comment on above: Performed By: #### B CID2 ####[facility] Iihikippxs427[address] [place], [place] [address]Dr. Flaco Lawrence K. pneumoniae Not detected Normal NOT DETECTED [facility] Comment on above: Performed By: #### B CID2 ####[facility] Eodewwzvxh3374[address] [place], [place] [address]Dr. Flaco Branden Klebsiella aerogenes Not detected Normal NOT DETECTED [facility] Comment on above: Performed By: #### B CID2 ####[facility] Qselqamqwr865[address] [place], [place] [address]Dr. Flaco Lawrence KPC Resistant Gene Not detected Normal NOT DETECTED [facility] Comment on above: Performed By: #### B CID2 ####[facility] Nctyuktgpl7792[address] [place], [place] [address]Dr. Flaco Lawrence List. monocytogenes Not detected Normal NOT DETECTED [facility] Comment on above: Performed By: #### B CID2 ####[facility] Dpmjksihtc3841[address] [place], [place] [address]Dr. Flaco Lawrence Mcr-1 Resistant Gene Not Applicable Normal NOT DETECTE D [facility] Comment on above: Performed By: #### B CID2 ####[facility] Btdeyqthac7174[address] [place], [place] [address]Dr. Flaco Lawrence mecA/C Not Applicable Normal NOT DETECTED [facility] Comment on above: Performed By: #### B CID2 ####[facility] Jgzolqjwjg9265[address] [place], [place] [address]Dr. Flaco Lawrence mecA/C MREJ Not Applicable Normal NOT DETECTED [facility] Comment on above: Performed By: #### B CID2 ####[facility] Nepjzjscxs7457[address] [place], [place] [address]Dr. Flaco Lawrence N. meningitidis Not detected Normal NOT DETECTED The [facility] Comment on above: Performed By: #### B CID2 ####[facility] Qrovfjcbfq8962[address] [place], [place] [address]Dr. Flaco Lawrence NDM Resistant Gene Not Applicable Normal NOT DETECTED [facility] Comment on above: Performed By: #### B CID2 ####[facility] Aomexotqtd3964[address] [place], [place] [address]Dr. Flaco Lawrence Oxa-48-like Not Applicable Normal NOT DETECTED [facility] Comment on above: Performed By: #### B CID2 ####[facility] Wqnpwdvqww5389[address] [place], [place] [address]Dr. Flaco Lawrence Proteus Not detected Normal NOT DETECTED [facility] Comment on above: Performed By: #### B CID2 ####[facility] Qkvtpxbczz9969[address] [place], [place] [address]Dr. Flaco Lawrence Pseud. aeruginosa Not detected Normal NOT DETECTED [facility] Comment on above: Performed By: #### B CID2 ####[facility] Bkgjgiwjnt2973[address] [place], [place] [address]Dr. Flaco Lawrence S. maltophilia Not detected Normal NOT DETECTED [facility] Comment on above: Performed By: #### B CID2 ####[facility] Htqqpximjf9542[address] [place], [place] [address]Dr. Flaco Lawrence Salmonella Not detected Normal NOT DETECTED [facility] Comment on above: Performed By: #### B CID2 ####[facility] Sztkvxyulg4749[address] [place], [place] [address]Dr. Flaco Lawrence Seratia marcescens Not detected Normal NOT DETECTED [facility] Comment on above: Performed By: #### B CID2 ####[facility] Zarfoteqop7[address] [place] [id number]. Flaco Lawrence Site: left hand Normal [facility] Comment on above: Performed By: #### B CID2 ####[facility] Vqghhhheoh1379[address] [place], [place] [address]Dr. Yilan Lawrence Staph. aureus Not detected Normal NOT DETECTED [facility] Comment on above: Performed By: #### B CID2 ####[facility] Ttktisryit7768[address] [place], [place] [address]Dr. Yilan Lawrence Staph. epidermidis Not detected Normal NOT DETECTED [facility] Comment on above: Performed By: #### B CID2 ####[facility] Iggdglddvo796[address] [place], [place] [address]Dr. Yilan Lawrence Staph. lugdunensis Not detected Normal NOT DETECTED [facility] Comment on above: Performed By: #### B CID2 ####[facility] Fkkyydhnpc747[address] [place], [place] [address]Dr. Yilan Lawrence Staphylococcus Not detected Normal NOT DETECTED [facility] Comment on above: Performed By: #### B CID2 ####[facility] Rvkfhtpnud7705[address] [place], [place] [address]Dr. Yilan Lawrence Strep. agalactiae Not detected Normal NOT DETECTED [facility] Comment on above: Performed By: #### B CID2 ####[facility] Xgnqbukxcp0664[address] [place], [place] [address]Dr. Yilan Lawrence Strep. pneumoniae Not detected Normal NOT DETECTED [facility] Comment on above: Performed By: #### B CID2 ####[facility] Mhzqoeltxf0877[address] [place], [place] [address]Dr. Yilan Lawrence Strep. pyogenes Not detected Normal NOT DETECTED [facility] Comment on above: Performed By: #### B CID2 ####[facility] Mkowbsiydf5444[address] [place], [place] [address]Dr. Yilan Lwarence Streptococcus Detected Critically abnormal NOT DETECTED [facility] Comment on above: Performed By: #### B CID2 ####[facility] Dshwexufxx6742[address] [place], [place] [address]Dr. Flaco Lawrence Hao/B Resist. Gene Not detected Normal NOT DETECTED [facility] Comment on above: Performed By: #### B CID2 ####[facility] Tfsvgdrspw[address] [place] [address]Dr. Flaco Branden VIM Resistant Gene Not Applicable Normal NOT DETECTED [facility] Comment on above: Performed By: #### B CID2 ####[facility] Ptjldmecco6577 [place] [address]Dr. Purviedith Lawrence CBC AUTO DIFFon 02-10-2023 BASO # 0.0 103/ul Normal 0.0-0.1 [facility] Comment on above: Performed By: #### C BC ####[facility] Llsbpzlpyk4933[address] [place], [place] [address]Dr. Flaco Lawrence Basophils/100 WBC (Bld) 0.5 % Normal 0.2-2.0 [facility] Comment on above: Performed By: #### C BC ####[facility] Usuofuqzvb9856[address] [place], [place] [address]Dr. Flaco Lawrence EO # 0.1 103/ul Normal 0.0-0.7 [facility] Comment on above: Performed By: #### C BC ####[facility] Quzyobobbs988[address] [place], [place] [address]Dr. Flaco Lawrence Eosinophils/100 WBC (Bld) 1.1 % Normal 0.9-7.0 [facility] Comment on above: Performed By: #### C BC ####[facility] Goypctazye1778[address] [place], [place] [address]Dr. Flaco Lawrence Erythrocyte distribution width (RBC) [Ratio] 16.0 % Critically high 11.0-15.0 [facility] Comment on above: Performed By: #### C BC ####[facility] Dkvijignqz919[address] [place], [place] [address]Dr. Flaco Lawrence Hematocrit (Bld) [Volume fraction] 40.1 % Critically low 42.0-54.0 [facility] Comment on above: Performed By: #### C BC ####[facility] [address]ms[address]ewpo[address] [place] [address]. Flaco Lawrence Hemoglobin (Bld) [Mass/Vol] 13.2 g/dL Critically low 14.0-18.0 [facility] Comment on above: Performed By: #### C BC ####[facility] Hxuxbhinyb89[address] [place] [address]Dr. Flaco Lawrence IG # 0.01 10e3/ul Normal 0.00-0.03 [facility] Comment on above: Performed By: #### C BC ####[facility] Dfgfkqapap4306[address] [place], [place] [address]Dr. Flaco Branden IG % 0.2 % Normal 0.0-0.5 [facility] Comment on above: Performed By: #### C BC ####[facility] Ttrsfhqrvx3301[address] [place], [place] [address]Dr. Flaco Branden LYMPH # 1.8 103/ul Normal 1.2-3.8 [facility] Comment on above: Performed By: #### C BC ####[facility] Ucnlbfkpkb3481[address] [place], [place] [address]Dr. Flaco Branden Lymphocytes/100 WBC (Bld) 28.1 % Normal 20.5-60.0 [facility] Comment on above: Performed By: #### C BC ####[facility] Basjvruzqr8463[address] [place], [place] [address]Dr. Flaco Branden MANUAL DIFF REQ NO Normal [facility] Comment on above: Performed By: #### C BC ####[facility] Nifnkusesa9097 [place] [address]Dr. Flaco Lawrence MCH (RBC) [Entitic mass] 28.0 pg Normal 25.9-34.0 [facility] Comment on above: Performed By: #### C BC ####[facility] Stomrewgtt0225[address] [place], [place] [address]Dr. Flaco Branden MCHC (RBC) [Mass/Vol] 32.9 g/dL Normal 29.9-35.2 [facility] Comment on above: Performed By: #### C BC ####[facility] Iihglllywn2138[address] [place], [place] [address]Dr. Flaco Lawrence MCV (RBC) [Entitic vol] 85.0 fL Normal 80.0-94.0 [facility] Comment on above: Performed By: #### C BC ####[facility] Rhnprkmvxn6062 [place] [address]Dr. Flaco Lawrence MONO # 0.5 103/ul Normal 0.3-0.8 [facility] Comment on above: Performed By: #### C BC ####[facility] Ezzlqndvlf5199[address] [place], [place] [address]Dr. Flaco Branden Monocytes/100 WBC (Bld) 7.2 % Normal 1.7-12.0 [facility] Comment on above: Performed By: #### C BC ####[facility] Nrhacdgflu4159[address] [place], [place] [address]Dr. Flaco Lawrence NEUT # 4.1 103/ul Normal 1.4-6.5 [facility] Comment on above: Performed By: #### C BC ####[facility] Keeurrbofo1797[address] [place], [place] [address]Dr. Flaco Branden Neutrophils/100 WBC (Bld) 62.9 % Normal 43.0-75.0 [facility] Comment on above: Performed By: #### C BC ####[facility] Pjfrguaugj0895[address] [place], [place] [address]Dr. Flaco Branden Platelet mean volume (Bld) [Entitic vol] 10.7 fL Normal 9.5-13.5 [facility] Comment on above: Performed By: #### C BC ####[facility] Jsubwiwbcd5031[address] [place], [place] [address]Dr. Flaco Branden PLT 180 103/ul Normal 150-450 [facility] Comment on above: Performed By: #### C BC ####[facility] Kfsmgrscms7609[address] [place], [place] [address]Dr. Purviedith Branden RBC 4.72 106/ul Normal 4.70-6.10 [facility] Comment on above: Performed By: #### C BC ####[facility] Wublkcmkxf0963[address] [place], [place] [address]Dr. Flaco Lawrence WBC 6.5 103/ul Normal 4.0-11.0 [facility] Comment on above: Performed By: #### C BC ####[facility] Xjgdcbyqqr6451 [place] [address]Dr. Flaco Lawrence PROF 14(COMP METB)on 023 Albumin [Mass/Vol] 2.8 g/dL Critically low 3.4-5.0 [facility] Comment on above: Performed By: #### C MP ####[facility] Cjejdvmaab1408 [place] [address]DrJeramie Lawrence Albumin/Globulin [Mass ratio] 1.2 {ratio} Normal [facility] Comment on above: Performed By: #### C MP ####[facility] Gbxzubzjei1238[address] [place], [place] [address]Dr. Flaco Lawrence ALP [Catalytic activity/Vol] 71 U/L Normal 46-116 [facility] Comment on above: Performed By: #### C MP ####[facility] Ysmtmlxnra399[address] [place], [place] [address]DrJeramie Lawrence ALT [Catalytic activity/Vol] 9 U/L Critically low 16-63 [facility] Comment on above: Performed By: #### C MP ####[facility] Umekblllxs8496[address] [place], [place] [address]DrJeramie Lawrence Anion gap [Moles/Vol] 11.5 mmol/L Normal [facility] Comment on above: Performed By: #### C MP ####[facility] Hdkhojxkfc264[address] [place], [place] [address]DrJeramie Lawrence AST [Catalytic activity/Vol] 13 U/L Critically low 15-37 [facility] Comment on above: Performed By: #### C MP ####[facility] Whepqaxkjd6107[address] [place], [place] [address]DrJeramie Lawrence Bilirubin [Mass/Vol] 1.4 mg/dL Critically high 0.2-1.0 [facility] Comment on above: Performed By: #### C MP ####[facility] Lsbwimxmhn8498[address] [place], [place] [address]DrJeramie Lawrence Calcium [Mass/Vol] 7.9 mg/dL Critically low 8.5-10.1 [facility] Comment on above: Performed By: #### C MP ####[facility] Obdaptrtch86[address] [place] [address]Dr. Flaco Lawrence Chloride [Moles/Vol] 110 mmol/L Critically high 98-107 [facility] Comment on above: Performed By: #### C MP ####[facility] Wnleljajtt1505 [place] [address]Dr. Flaco Lawrence CO2 [Moles/Vol] 26.4 mmol/L Normal 21.0-32.0 [facility] Comment on above: Performed By: #### C MP ####[facility] Dkvwuuxtbi939[address] [place], [place] [address]Dr. Flaco Lawrence Creatinine [Mass/Vol] 1.35 mg/dL Critically high 0.70-1.30 [facility] Comment on above: Performed By: #### C MP ####[facility] Glxrhyikcd863[address] [place], [place] [address]Dr. Flaco Lawrence EGFR-AF EMIRATI >60 Normal >=60 [facility] Comment on above: Performed By: #### C MP ####[facility] Syettkqusb5675[address] [place], [place] [address]Dr. Flaco Lawrence EGFR-NON AF EMIRATI 52 mL/min/1.73m2 Critically low >=60 [facility] Comment on above: Performed By: #### C MP ####[facility] Rqxaiizino1497[address] [place], [place] [address]Dr. Flaco Branden Globulin (S) [Mass/Vol] 2.4 g/dL Normal [facility] Comment on above: Performed By: #### C MP ####[facility] Yjoeuqhdgo6094[address] [place], [place] [address]Dr. Flaco Branden Glucose [Mass/Vol] 90 mg/dL Normal 74-106 [facility] Comment on above: Performed By: #### C MP ####[facility] Uozgmvpjsa5308[address] [place], [place] [address]Dr. Flaco Branden Potassium [Moles/Vol] 2.8 mmol/L Critically low 3.5-5.1 [facility] Comment on above: Performed By: #### C MP ####[facility] Hjflonwimd5766[address] [place], [place] [address]Dr. Flaco Branden Protein [Mass/Vol] 5.2 g/dL Critically low 6.4-8.2 [facility] Comment on above: Performed By: #### C MP ####[facility] Dgfhydaofd1644[address] [place], [place] [address]Dr. Flaco Lawrence Sodium [Moles/Vol] 143 mmol/L Normal 136-145 [facility] Comment on above: Performed By: #### C MP ####[facility] Skkoeeprfo538[address] [place], [place] [address]Dr. Purviedith Branden Urea nitrogen [Mass/Vol] 13.0 mg/dL Normal 7.0-18.0 [facility] Comment on above: Performed By: #### C MP ####[facility] Feuipmkjkl2374[address] [place], [place] [address]Dr. Flaco Lawrence Urea nitrogen/Creatinine [Mass ratio] 9.6 mg/mg Normal [facility] Comment on above: Performed By: #### C MP ####[facility] Gjmnqmfqzn2829[address] [place], [place] [address]Dr. Flaco Branden AMMONIAon 02-09-2023 Ammonia (P) [Mass/Vol] ug/dL Critically low 11-32 [facility] Comment on above: Performed By: #### A MM ####[facility] Luqwktrzvo547[address] [place], [place] [address]Dr. Flaco Lawrence CBC AUTO DIFFon 02-09-2023 BASO # 0.0 103/ul Normal 0.0-0.1 [facility] Comment on above: Performed By: #### C BC ####[facility] Kyojwidavh1744[address] [place], [place] [address]Dr. Flaco Lawrence Basophils/100 WBC (Bld) 0.6 % Normal 0.2-2.0 [facility] Comment on above: Performed By: #### C BC ####[facility] Cdosgpwvqt1454 [place] [address]Dr. Flaco Lawrence EO # 0.0 103/ul Normal 0.0-0.7 [facility] Comment on above: Performed By: #### C BC ####[facility] Kdazitdpoq1812[address] [place], [place] [address]Dr. Flaco Lawrence Eosinophils/100 WBC (Bld) 0.8 % Critically low 0.9-7.0 [facility] Comment on above: Performed By: #### C BC ####[facility] Thqmjsaehu0654[address] [place], [place] [address]Dr. Flaco Lawrence Erythrocyte distribution width (RBC) [Ratio] 15.9 % Critically high 11.0-15.0 [facility] Comment on above: Performed By: #### C BC ####[facility] Hhufsvpiys4908[address] [place], [place] [address]Dr. Flaco Lawrence Hematocrit (Bld) [Volume fraction] 40.6 % Critically low 42.0-54.0 [facility] Comment on above: Performed By: #### C BC ####[facility] Hezxftwcxe16101[address] [place], [place] [address]Dr. Flaco Lawrence Hemoglobin (Bld) [Mass/Vol] 13.1 g/dL Critically low 14.0-18.0 [facility] Comment on above: Performed By: #### C BC ####[facility] Twxztisyko9547[address] [place], [place] [address]Dr. Flaco Lawrence IG # 0.01 10e3/ul Normal 0.00-0.03 [facility] Comment on above: Performed By: #### C BC ####[facility] Qndzjpjkhg4117[address] [place], [place] [address]Dr. Flaco Lawrence IG % 0.2 % Normal 0.0-0.5 [facility] Comment on above: Performed By: #### C BC ####[facility] Kzotewtyrk9562[address] [place], [place] [address]Dr. Purviedith Lawrence LYMPH # 1.3 103/ul Normal 1.2-3.8 [facility] Comment on above: Performed By: #### C BC ####[facility] Erjtjfywcb8104 [place] [id number]. Flaco Branden Lymphocytes/100 WBC (Bld) 26.3 % Normal 20.5-60.0 [facility] Comment on above: Performed By: #### C BC ####[facility] Xvkjxdemxa8580 [place] [id number]. Flaco Branden MANUAL DIFF REQ NO Normal [facility] Comment on above: Performed By: #### C BC ####[facility] Uhbxtefshv9848 [place] [address]Dr. Flaco Branden MCH (RBC) [Entitic mass] 27.5 pg Normal 25.9-34.0 [facility] Comment on above: Performed By: #### C BC ####[facility] Gdtcelnvrf527[address] [place], [place] [address]Dr. Flaco Branden MCHC (RBC) [Mass/Vol] 32.3 g/dL Normal 29.9-35.2 [facility] Comment on above: Performed By: #### C BC ####[facility] Vbbbuurmaf1346[address] [place], [place] [address]Dr. Flaco Branden MCV (RBC) [Entitic vol] 85.3 fL Normal 80.0-94.0 [facility] Comment on above: Performed By: #### C BC ####[facility] Ltqxjuloii9833[address] [place], [place] [address]Dr. Purviedith Branden MONO # 0.4 103/ul Normal 0.3-0.8 [facility] Comment on above: Performed By: #### C BC ####[facility] Avgbjloess8224 [place] [address]Dr. Purviedith Lawrence Monocytes/100 WBC (Bld) 7.6 % Normal 1.7-12.0 [facility] Comment on above: Performed By: #### C BC ####[facility] Qwzjafqarg9567[address] [place], [place] [address]Dr. Flaco Lawrence NEUT # 3.2 103/ul Normal 1.4-6.5 [facility] Comment on above: Performed By: #### C BC ####[facility] Raippedmui8802 [place] [address]Dr. Flaco Branden Neutrophils/100 WBC (Bld) 64.5 % Normal 43.0-75.0 [facility] Comment on above: Performed By: #### C BC ####[facility] Fnfhyqyrws2081 [place] [address]Dr. Flaco Lawrence Platelet mean volume (Bld) [Entitic vol] 10.6 fL Normal 9.5-13.5 [facility] Comment on above: Performed By: #### C BC ####[facility] Lgpdmbbihs9473 [place] [address]Dr. Flaco Lawrence PLT 195 103/ul Normal 150-450 [facility] Comment on above: Performed By: #### C BC ####[facility] Hgejfskwwg8401 [place] [address]Dr. Flaco Lawrence RBC 4.76 106/ul Normal 4.70-6.10 [facility] Comment on above: Performed By: #### C BC ####[facility] Pybvftstth0568 [place] [address]Dr. Flaco Lawrence WBC 5.0 103/ul Normal 4.0-11.0 [facility] Comment on above: Performed By: #### C BC ####[facility] Cxwwmphxkj6351 [place] [address]Dr. Flaco Lawrence PROF 14(COMP METB)on 023 Albumin [Mass/Vol] 3.0 g/dL Critically low 3.4-5.0 [facility] Comment on above: Performed By: #### C MP ####[facility] Mavzlkyfsg1349 [place] [id number]. Flaco Lawrence Albumin/Globulin [Mass ratio] 1.2 {ratio} Normal [facility] Comment on above: Performed By: #### C MP ####[facility] Ewvuvdcizs7434 [place] [address]Dr. Purviedith Lawrence ALP [Catalytic activity/Vol] 67 U/L Normal 46-116 [facility] Comment on above: Performed By: #### C MP ####[facility] Kdpangtrpw6263 [place] [address]Dr. Flaco Lawrence ALT [Catalytic activity/Vol] 7 U/L Critically low 16-63 [facility] Comment on above: Performed By: #### C MP ####[facility] Dvlnmjhxek1951[address] [place], [place] [address]Dr. Flaco Lawrence Anion gap [Moles/Vol] 12.8 mmol/L Normal [facility] Comment on above: Performed By: #### C MP ####[facility] Gteqziihtk87[address] [place], [place] [address]Dr. Flaco Lawrence AST [Catalytic activity/Vol] 16 U/L Normal 15-37 [facility] Comment on above: Performed By: #### C MP ####[facility] Yuixyijhpr01[address] [place], [place] [address]Dr. Flaco Lawrence Bilirubin [Mass/Vol] 2.1 mg/dL Critically high 0.2-1.0 [facility] Comment on above: Performed By: #### C MP ####[facility] Mzvltysnlr6[address] [place], [place] [address]Dr. Flaco Lawrence Calcium [Mass/Vol] 8.1 mg/dL Critically low 8.5-10.1 [facility] Comment on above: Performed By: #### C MP ####[facility] T[address]kkvogqn[address] [place], [place] [address]Dr. Flaco Lawrence Chloride [Moles/Vol] 110 mmol/L Critically high 98-107 [facility] Comment on above: Performed By: #### C MP ####[facility] Zdezoyqjbm39[address] [place], [place] [address]Dr. Flaco Branden CO2 [Moles/Vol] 26.0 mmol/L Normal 21.0-32.0 [facility] Comment on above: Performed By: #### C MP ####[facility] Bxhlxpmsuv8943[address] [place], [place] [address]Dr. Flaco Lawrence Creatinine [Mass/Vol] 1.43 mg/dL Critically high 0.70-1.30 [facility] Comment on above: Performed By: #### C MP ####[facility] [address]azvalff[address] [place] [address]Dr. Flaco Lawrence EGFR-AF EMIRATI 59 mL/min/1.73m2 Critically low >=60 [facility] Comment on above: Performed By: #### C MP ####[facility] Gkenjqvcnn6672 [place] [address]Dr. Flaco Lawrence EGFR-NON AF EMIRATI 49 mL/min/1.73m2 Critically low >=60 [facility] Comment on above: Performed By: #### C MP ####[facility] Rmsilujojo6374 [place] [address]Dr. Flaco Lawrence Globulin (S) [Mass/Vol] 2.4 g/dL Normal [facility] Comment on above: Performed By: #### C MP ####[facility] Ohzqkuplub1435 [place] [address]Dr. Flaco Lawrence Glucose [Mass/Vol] 77 mg/dL Normal 74-106 [facility] Comment on above: Performed By: #### C MP ####[facility] Mvqztcxfnl54[address] [place], [place] [address]Dr. Flaco Lawrence Potassium [Moles/Vol] 2.8 mmol/L Critically low 3.5-5.1 [facility] Comment on above: Performed By: #### C MP ####[facility] Oimcjjnfjm6[address] [place], [place] [address]Dr. Flaco Lawrence Protein [Mass/Vol] 5.4 g/dL Critically low 6.4-8.2 [facility] Comment on above: Performed By: #### C MP ####[facility] Nunbpiyrfu0273 [place] [address]Dr. Flaco Lawrence Sodium [Moles/Vol] 145 mmol/L Normal 136-145 [facility] Comment on above: Performed By: #### C MP ####[facility] Ljgndqkpjf[address] [place], [place] [address]Dr. Flaco Lawrence Urea nitrogen [Mass/Vol] 8.0 mg/dL Normal 7.0-18.0 [facility] Comment on above: Performed By: #### C MP ####[facility] Osijybbvzb58[address] [place] [address]Dr. Flaco Lawrence Urea nitrogen/Creatinine [Mass ratio] 5.6 mg/mg Normal [facility] Comment on above: Performed By: #### C MP ####[facility] Ykyjqhzeml[address] [place], [place] [address]Dr. Flaco Lawrence T4on 02-09-2023 T4 [Mass/Vol] 7.10 ug/dL Normal 4.50-12.10 [facility] Comment on above: Performed By: #### T SH, T4 ####[facility] Jiyqennlee36[address] [place], [place] [address]Dr. Purviedith Branden TSHon 02-09-2023 TSH 0.633 uIU/mL Normal 0.358-3.740 [facility] Comment on above: Performed By: #### T SH, T4 ####[facility] Mwnrglujcw9[address] [place], [place] [address]Dr. Flaco Lawrence US SINGLE QUAD RT UPPERon US SINGLE QUAD RT UPPER Normal [facility] AMYLASEon 02-08-2023 Amylase [Catalytic activity/Vol] 41 U/L Normal 25-115 [facility] Comment on above: Performed By: #### A MY, LIPA, CMP ####[facility] Aabpuwfvxu3569[address] [place], [place] [address]Dr. Flaco Lawrence CBC AUTO DIFFon 02-08-2023 BASO # 0.0 103/ul Normal 0.0-0.1 [facility] Comment on above: Performed By: #### C BC ####[facility] Rhsyvfxlyw6436[address] [place], [place] [address]Dr. Flaco Branden Basophils/100 WBC (Bld) 0.7 % Normal 0.2-2.0 [facility] Comment on above: Performed By: #### C BC ####[facility] Lsbhkdjegt1445[address] [place], [place] [address]Dr. Flaco Lawrence EO # 0.0 103/ul Normal 0.0-0.7 [facility] Comment on above: Performed By: #### C BC ####[facility] Yxmvjehoir7[address] [place] [address]Dr. Flaco Lawrence Eosinophils/100 WBC (Bld) 0.5 % Critically low 0.9-7.0 [facility] Comment on above: Performed By: #### C BC ####[facility] Ohoclrorvs475[address] [place], [place] [address]Dr. Flaco Lawrence Erythrocyte distribution width (RBC) [Ratio] 15.9 % Critically high 11.0-15.0 [facility] Comment on above: Performed By: #### C BC ####[facility] Oupwbpqlex0726[address] [place], [place] [address]Dr. Flaco Lawrence Hematocrit (Bld) [Volume fraction] 46.1 % Normal 42.0-54.0 [facility] Comment on above: Performed By: #### C BC ####[facility] Oclomizfwp5119[address] [place], [place] [address]Dr. Flaco Lawrence Hemoglobin (Bld) [Mass/Vol] 15.2 g/dL Normal 14.0-18.0 [facility] Comment on above: Performed By: #### C BC ####[facility] Yycjagjxjy97[address] [place], [place] [address]Dr. Flaco Lawrence IG # 0.02 10e3/ul Normal 0.00-0.03 [facility] Comment on above: Performed By: #### C BC ####[facility] Ylsvwcpivb65[address] [place], [place] [address]Dr. Flaco Lawrence IG % 0.3 % Normal 0.0-0.5 [facility] Comment on above: Performed By: #### C BC ####[facility] Snhdierwcw8047[address] [place], [place] [address]Dr. Flaco Lawrence LYMPH # 1.5 103/ul Normal 1.2-3.8 [facility] Comment on above: Performed By: #### C BC ####[facility] Txfiapjifb2425[address] [place], [place] [address]Dr. Flaco Lawrence Lymphocytes/100 WBC (Bld) 26.1 % Normal 20.5-60.0 [facility] Comment on above: Performed By: #### C BC ####[facility] Zqydlkkvry7[address] [place] [id number]. Flaco Lawrence MANUAL DIFF REQ NO Normal [facility] Comment on above: Performed By: #### C BC ####[facility] Lzmjisszzj2618 [place] [id number]. Flaco Lawrence MCH (RBC) [Entitic mass] 27.9 pg Normal 25.9-34.0 [facility] Comment on above: Performed By: #### C BC ####[facility] Tknyqsrpao8890 [place] [address]Dr. Flaco Lawrence MCHC (RBC) [Mass/Vol] 33.0 g/dL Normal 29.9-35.2 [facility] Comment on above: Performed By: #### C BC ####[facility] Cqzjfhmiha0779 [place] [address]Dr. Flaco Branden MCV (RBC) [Entitic vol] 84.6 fL Normal 80.0-94.0 [facility] Comment on above: Performed By: #### C BC ####[facility] Kureefltle6[address] [place], [place] [address]Dr. Flaco Branden MONO # 0.6 103/ul Normal 0.3-0.8 [facility] Comment on above: Performed By: #### C BC ####[facility] Rossufvirp8965[address] [place], [place] [address]Dr. Purviedith Lawrence Monocytes/100 WBC (Bld) 9.6 % Normal 1.7-12.0 [facility] Comment on above: Performed By: #### C BC ####[facility] Klptjypqvz6492[address] [place], [place] [address]Dr. Flaco Lawrence NEUT # 3.7 103/ul Normal 1.4-6.5 [facility] Comment on above: Performed By: #### C BC ####[facility] Aziwtzilcm6492[address] [place], [place] [address]Dr. Purviedith Lawrence Neutrophils/100 WBC (Bld) 62.8 % Normal 43.0-75.0 [facility] Comment on above: Performed By: #### C BC ####[facility] Gwhvozsnyi2541 [place] [address]Dr. Flaco Lawrence Platelet mean volume (Bld) [Entitic vol] 10.6 fL Normal 9.5-13.5 [facility] Comment on above: Performed By: #### C BC ####[facility] Gigbvuvuog8896 [place] [address]Dr. Flaco Lawrence PLT 255 103/ul Normal 150-450 [facility] Comment on above: Performed By: #### C BC ####[facility] Gdfycuqgxe067[address] [place], [place] [address]Dr. Flaco Branden RBC 5.45 106/ul Normal 4.70-6.10 [facility] Comment on above: Performed By: #### C BC ####[facility] Gmjmmcnlnn499[address] [place], [place] [address]Dr. Flaco Lawrence WBC 5.8 103/ul Normal 4.0-11.0 [facility] Comment on above: Performed By: #### C BC ####[facility] Wnlyuzqmmb0637[address] [place], [place] [address]Dr. Flaco Branden CULTURE BLOODon 02-08-2023 Microscopic examination of blood, culture Culture Observations: NO GROWTH AT 36-48 HOURS. FINAL TO FOLLOW. Normal [facility] Comment on above: Performed By: #### B LDCX1 ####[facility] Tavhjqfyuq7969[address] [place], [place] [address]Dr. Flaco Lawrence ER URINE PROFILEon 3 Bilirubin Ql (U) Negative Normal NEGATIVE [facility] Comment on above: Performed By: #### E RUR ####[facility] Mnffsttxdu3223[address] [place], [place] [address]Dr. Flaco Lawrence Clarity (U) CLEAR Normal CLEAR [facility] Comment on above: Performed By: #### E RUR ####[facility] Twdstydscy6599[address] [place], [place] [address]Dr. Flaco Lawrence Color (U) YELLOW Normal YELLOW [facility] Comment on above: Performed By: #### E RUR ####[facility] Okkfpulpoh4[address] [place], [place] [address]Dr. Flaco CURRY A micrscopic examination will be performed if indicated. Normal [facility] Comment on above: Performed By: #### E RUR ####[facility] Rrymgmfdgt3419[address] [place], [place] [address]Dr. Purviedtih Branden Glucose Ql (U) Negative Normal NEGATIVE [facility] Comment on above: Performed By: #### E RUR ####[facility] Hqstkjsymo7116[address] [place], [place] [address]Dr. Flaco Lawrence Hemoglobin Ql (U) Negative Normal NEGATIVE [facility] Comment on above: Performed By: #### E RUR ####[facility] Jwrhplfbai3662[address] [place], [place] [address]Dr. Flaco Lawrence Ketones Ql (U) 15 mg/dl Abnormal NEGATIVE [facility] Comment on above: Performed By: #### E RUR ####[facility] Kfcpzgmjvb7[address] [place], [place] [address]Dr. Flaco Lawrence LEUKOCYTES Negative Normal NEGATIVE [facility] Comment on above: Performed By: #### E RUR ####[facility] Fjdzqeuerx809[address] [place], [place] [address]Dr. Flaco Lawrence Nitrite Ql (U) Negative Normal NEGATIVE [facility] Comment on above: Performed By: #### E RUR ####[facility] Xsspcxojyh419[address] [place], [place] [address]Dr. Flaco Lawrence pH (U) 6.5 [pH] Normal 5-9 [facility] Comment on above: Performed By: #### E RUR ####[facility] Zbqkbqcryt1687[address] [place], [place] [address]Dr. Flaco Lawrence SPEC GRAVITY 1.010 Normal 1.005-<=1.02 5 [facility] Comment on above: Performed By: #### E RUR ####[facility] Evyztscmbz1942[address] [place], [place] [address]Dr. Flaco Lawrence UA PROTEIN Negative Normal NEGATIVE/ TRACE [facility] Comment on above: Performed By: #### E RUR ####[facility] Baapboccpp9163[address] [place], [place] [address]Dr. Flaco Lawrence UR MICRO IND NOT INDICATED Normal [facility] Comment on above: Performed By: #### E RUR ####[facility] Nmropvqnzn6130 [place] [address]Dr. Flaco Lawrence Urobilinogen Qn (U) 2.0 {Tuan'U}/dL Abnormal 0.2 - 1. 0 [facility] Comment on above: Performed By: #### E RUR ####[facility] Jbixuilgfq4807 [place] [address]Dr. Flaco Lawrence LIPASEon 02-08-2023 Lipase [Catalytic activity/Vol] 280.0 U/L Normal 73.0-393.0 [facility] Comment on above: Performed By: #### A MY, LIPA, CMP ####[facility] Zmlcmwouhb4862 [place] [address]Dr. Flaco Lawrence PROF 14(COMP METB)on 023 Albumin [Mass/Vol] 3.5 g/dL Normal 3.4-5.0 [facility] Comment on above: Performed By: #### A MY, LIPA, CMP ####[facility] Veuaxgwnnm9122 [place] [address]Dr. Flaco Lawrence Albumin/Globulin [Mass ratio] 1.2 {ratio} Normal [facility] Comment on above: Performed By: #### A MY, LIPA, CMP ####[facility] Omfdxubwgb3072 [place] [address]Dr. Flaco Lawrence ALP [Catalytic activity/Vol] 81 U/L Normal 46-116 [facility] Comment on above: Performed By: #### A MY, LIPA, CMP ####[facility] Zikmfwmkes5493 [place] [address]Dr. Flaco Lawrence ALT [Catalytic activity/Vol] 7 U/L Critically low 16-63 [facility] Comment on above: Performed By: #### A MY, LIPA, CMP ####[facility] Mptwdgvusr4978 [place] [address]Dr. Flaco Lawrence Anion gap [Moles/Vol] 10.3 mmol/L Normal [facility] Comment on above: Performed By: #### A MY, LIPA, CMP ####[facility] Uhvvxbequz4582 [place] [address]Dr. Flaco Lawrence AST [Catalytic activity/Vol] 20 U/L Normal 15-37 [facility] Comment on above: Performed By: #### A MY, LIPA, CMP ####[facility] Zhehocoali3482[address] [place], [place] [address]Dr. Flaco Lawrence Bilirubin [Mass/Vol] 3.1 mg/dL Critically high 0.2-1.0 [facility] Comment on above: Performed By: #### A MY, LIPA, CMP ####[facility] Xuxfpnbcfx416[address] [place], [place] [address]Dr. Flaco Lawrence Calcium [Mass/Vol] 8.7 mg/dL Normal 8.5-10.1 [facility] Comment on above: Performed By: #### A MY, LIPA, CMP ####[facility] Qlnogvxiku9254[address] [place], [place] [address]Dr. Flaco Lawrence Chloride [Moles/Vol] 103 mmol/L Normal 98-107 [facility] Comment on above: Performed By: #### A MY, LIPA, CMP ####[facility] Syofuyznld838[address] [place], [place] [address]Dr. Flaco Lawrence CO2 [Moles/Vol] 30.5 mmol/L Normal 21.0-32.0 [facility] Comment on above: Performed By: #### A MY, LIPA, CMP ####[facility] Mbtfbuugld9429[address] [place], [place] [address]Dr. Flaco Lawrence Creatinine [Mass/Vol] 1.81 mg/dL Critically high 0.70-1.30 [facility] Comment on above: Performed By: #### A MY, LIPA, CMP ####[facility] Rxbdxnncie546[address] [place], [place] [address]Dr. Flaco Lawrence EGFR-AF EMIRATI 45 mL/min/1.73m2 Critically low >=60 [facility] Comment on above: Performed By: #### A MY, LIPA, CMP ####[facility] Jjwokvfkru8624 [place] [address]Dr. Flaco Lawrence EGFR-NON AF EMIRATI 37 mL/min/1.73m2 Critically low >=60 [facility] Comment on above: Performed By: #### A RICCARDO LIPA, CMP ####[facility] Tomdbjtgxx6741 [place] [address]Dr. Flaco Lawrence Globulin (S) [Mass/Vol] 3.0 g/dL Normal [facility] Comment on above: Performed By: #### A RICCARDO LIPA, CMP ####[facility] Wurpothkld8254 [place] [address]Dr. Flaco Lawrence Glucose [Mass/Vol] 94 mg/dL Normal 74-106 [facility] Comment on above: Performed By: #### A RICCARDO LIPA, CMP ####[facility] Dgvjifeeic1317[address] [place], [place] [address]Dr. Flaco Lawrence Potassium [Moles/Vol] 2.5 mmol/L Critically low 3.5-5.1 [facility] Comment on above: Performed By: #### A RICCARDO LIPA, CMP ####[facility] Ixnzzuxkif0[address] [place], [place] [address]Dr. Flaco Lawrence Protein [Mass/Vol] 6.5 g/dL Normal 6.4-8.2 [facility] Comment on above: Performed By: #### A RICCARDO LIPA, CMP ####[facility] Atiqwxsfpv738[address] [place], [place] [address]Dr. Flaco Lawrence Sodium [Moles/Vol] 133 mmol/L Critically low 136-145 [facility] Comment on above: Performed By: #### A MY LIPA, CMP ####[facility] Ortcsohedt4731[address] [place], [place] [address]Dr. Flaco Lawrence Urea nitrogen [Mass/Vol] 10.0 mg/dL Normal 7.0-18.0 [facility] Comment on above: Performed By: #### A MY LIPA, CMP ####[facility] Sfexwyacur1563[address] [place], [place] [address]Dr. Flaco Lawrence Urea nitrogen/Creatinine [Mass ratio] 5.5 mg/mg Normal [facility] Comment on above: Performed By: #### A MY, DEMOND, CMP ####[facility] Erffiiuhik84[address] [place], [place] [address]Dr. Flaco Lawrence PROF CHEM 8 (BAS METB)on Anion gap [Moles/Vol] 16.8 mmol/L Normal [facility] Comment on above: Performed By: #### B MP ####[facility] Ladiqjakhf4626[address] [place], [place] [address]Dr. Flaco Lawrence Calcium [Mass/Vol] 8.5 mg/dL Normal 8.5-10.1 [facility] Comment on above: Performed By: #### B MP ####[facility] Niktxwrlpd5806[address] [place], [place] [address]Dr. Flaco Lawrence Chloride [Moles/Vol] 107 mmol/L Normal 98-107 [facility] Comment on above: Performed By: #### B MP ####[facility] Bzkdmhfbuy176[address] [place], [place] [address]Dr. Flaco Lawrence CO2 [Moles/Vol] 25.0 mmol/L Normal 21.0-32.0 [facility] Comment on above: Performed By: #### B MP ####[facility] Oibfhonshx669[address] [place], [place] [address]Dr. Flaco Lawrence Creatinine [Mass/Vol] 1.62 mg/dL Critically high 0.70-1.30 [facility] Comment on above: Performed By: #### B MP ####[facility] Nqukbkfrpe0933[address] [place], [place] [address]Dr. Flaco Lawrence EGFR-AF EMIRATI 51 mL/min/1.73m2 Critically low >=60 [facility] Comment on above: Performed By: #### B MP ####[facility] Uhbwaajflp2967[address] [place], [place] [address]Dr. Flaco Lawrence EGFR-NON AF EMIRATI 42 mL/min/1.73m2 Critically low >=60 [facility] Comment on above: Performed By: #### B MP ####[facility] Xxpnlmglcm88[address] [place], [place] [address]Dr. Flaco Lawrence Glucose [Mass/Vol] 73 mg/dL Critically low 74-106 [facility] Comment on above: Performed By: #### B MP ####[facility] Eiqnzezrvx776[address] [place], [place] [address]Dr. Flaco Lawrence Potassium [Moles/Vol] 3.8 mmol/L Normal 3.5-5.1 [facility] Comment on above: Performed By: #### B MP ####[facility] Olyrkrcjya4543[address] [place], [place] [address]Dr. Flaco Lawrence Sodium [Moles/Vol] 145 mmol/L Normal 136-145 [facility] Comment on above: Performed By: #### B MP ####[facility] Ggbgggiszq9435[address] [place], [place] [address]Dr. Flaco Lawrence Urea nitrogen [Mass/Vol] 10.0 mg/dL Normal 7.0-18.0 [facility] Comment on above: Performed By: #### B MP ####[facility] Ctpxjfpjmy8745[address] [place], [place] [address]Dr. Flaco Lawrence Urea nitrogen/Creatinine [Mass ratio] 6.2 mg/mg Normal [facility] Comment on above: Performed By: #### B MP ####[facility] Rtidjegqgy730[address] [place], [place] [address]Dr. Flaco Lawrence XR CHEST 1 Von 02-08-2023 XR CHEST 1 V Normal [facility] XR FOOT RT MIN 3 VIEWSon XR FOOT RT MIN 3 VIEWS Normal [facility] CBC AUTO DIFFon 11-18-2022 BASO # 0.1 103/ul Normal 0.0-0.1 [facility] Comment on above: Performed By: #### C BC ####[facility] Gguaphnruq8766[address] [place], [place] [address]Dr. Flaco Lawrence Basophils/100 WBC (Bld) 0.6 % Normal 0.2-2.0 [facility] Comment on above: Performed By: #### C BC ####[facility] Rtyhncdhny574[address] [place], [place] [address]Dr. Flaco Lawrence EO # 0.2 103/ul Normal 0.0-0.7 [facility] Comment on above: Performed By: #### C BC ####[facility] Rlihfiumoj7806 [place] [address]Dr. Flaco Lawrence Eosinophils/100 WBC (Bld) 1.5 % Normal 0.9-7.0 [facility] Comment on above: Performed By: #### C BC ####[facility] Sflpamvvbw9083[address] [place], [place] [address]Dr. Flaco Lawrence Erythrocyte distribution width (RBC) [Ratio] 16.2 % Critically high 11.0-15.0 [facility] Comment on above: Performed By: #### C BC ####[facility] Oslmdbpemj1439[address] [place], [place] [address]Dr. Flaco Lawrence Hematocrit (Bld) [Volume fraction] 35.1 % Critically low 42.0-54.0 [facility] Comment on above: Performed By: #### C BC ####[facility] Hpeyvuhylj[address] [place], [place] [address]Dr. Flaco Lawrence Hemoglobin (Bld) [Mass/Vol] 11.5 g/dL Critically low 14.0-18.0 [facility] Comment on above: Performed By: #### C BC ####[facility] Fpeorsbwma9639[address] [place], [place] [address]Dr. Flaco Lawrence IG # 0.05 10e3/ul Critically high 0.00-0.03 [facility] Comment on above: Performed By: #### C BC ####[facility] Susakeddol040[address] [place], [place] [address]Dr. Flaco Branden IG % 0.5 % Normal 0.0-0.5 [facility] Comment on above: Performed By: #### C BC ####[facility] Ujiayzqosg0538[address] [place], [place] [address]DrJeramie Flaco Branden LYMPH # 2.1 103/ul Normal 1.2-3.8 [facility] Comment on above: Performed By: #### C BC ####[facility] Ckzdxvyxwf0022[address] [place], [place] [address]Dr. Flaco Lawrence Lymphocytes/100 WBC (Bld) 20.5 % Normal 20.5-60.0 [facility] Comment on above: Performed By: #### C BC ####[facility] Olehmxsesz0072 [place] [address]Dr. Flaco Lawrence MANUAL DIFF REQ NO Normal [facility] Comment on above: Performed By: #### C BC ####[facility] Ruehccdana3552 [place] [address]Dr. Flaco Lawrence MCH (RBC) [Entitic mass] 28.1 pg Normal 25.9-34.0 [facility] Comment on above: Performed By: #### C BC ####[facility] Hxtenbzrhc766[address] [place], [place] [address]Dr. Flaco Lawrence MCHC (RBC) [Mass/Vol] 32.8 g/dL Normal 29.9-35.2 [facility] Comment on above: Performed By: #### C BC ####[facility] Jwxykycdwf935[address] [place], [place] [address]Dr. Flaco Lawrence MCV (RBC) [Entitic vol] 85.8 fL Normal 80.0-94.0 [facility] Comment on above: Performed By: #### C BC ####[facility] Oypxykicnn1039[address] [place], [place] [address]Dr. Flaco Lawrence MONO # 1.2 103/ul Critically high 0.3-0.[address] [facility] Comment on above: Performed By: #### C BC ####[facility] Hfwzokwucf8535[address] [place], [place] [address]Dr. Flaco Lawrence Monocytes/100 WBC (Bld) 11.5 % Normal 1.7-12.0 [facility] Comment on above: Performed By: #### C BC ####[facility] Mwachkxals4[address] [place], [place] [address]DrJeramie Lawrence NEUT # 6.5 103/ul Normal 1.4-6.5 [facility] Comment on above: Performed By: #### C BC ####[facility] Fpduoobjnn3626[address] [place], [place] [address]Dr. Flaco Lawrence Neutrophils/100 WBC (Bld) 65.4 % Normal 43.0-75.0 [facility] Comment on above: Performed By: #### C BC ####[facility] Kvgvxccaji9027 [place] [address]Dr. Flaco Branden Platelet mean volume (Bld) [Entitic vol] 10.3 fL Normal 9.5-13.5 [facility] Comment on above: Performed By: #### C BC ####[facility] Ztdnkpwfsc7632 [place] [address]DrJeramie Lawrence PLT 399 103/ul Normal 150-450 [facility] Comment on above: Performed By: #### C BC ####[facility] Tcgjhxbscz2090 [place] [address]DrJeramie Lawrence RBC 4.09 106/ul Critically low 4.70-6.10 [facility] Comment on above: Performed By: #### C BC ####[facility] Yorpexxthy3[address] [place], [place] [address]DrJeramie Lawrence WBC 10.0 103/ul Normal 4.0-11.0 [facility] Comment on above: Performed By: #### C BC ####[facility] Xusisqaakf[address] [place], [place] [address]DrJeramie Lawrence PROF 14(COMP METB)on 023 Albumin [Mass/Vol] 2.4 g/dL Critically low 3.4-5.0 [facility] Comment on above: Performed By: #### C MP ####[facility] Cqrvucvoqk9337 [place] [address]DrJeramie Lawrence Albumin/Globulin [Mass ratio] 0.6 {ratio} Normal [facility] Comment on above: Performed By: #### C MP ####[facility] Sftbaegpor1268 [place] [address]DrJeramie Lawrence ALP [Catalytic activity/Vol] 130 U/L Critically high 46-116 [facility] Comment on above: Performed By: #### C MP ####[facility] Apflvmccna1705 [place] [address]Dr. Flaco Branden ALT [Catalytic activity/Vol] 12 U/L Critically low 16-63 [facility] Comment on above: Performed By: #### C MP ####[facility] Myxrgsidik0182 [place] [address]Dr. Flaco Lawrence Anion gap [Moles/Vol] 13.6 mmol/L Normal [facility] Comment on above: Performed By: #### C MP ####[facility] Pipdyvyisc2901 [place] [address]Dr. Flaco Branden AST [Catalytic activity/Vol] 27 U/L Normal 15-37 [facility] Comment on above: Performed By: #### C MP ####[facility] Xwimuhavvd8[address] [place], [place] [address]Dr. Flaco Branden Bilirubin [Mass/Vol] 0.5 mg/dL Normal 0.2-1.0 [facility] Comment on above: Performed By: #### C MP ####[facility] Irieokredy[address] [place], [place] [address]Dr. Flaco Branden Calcium [Mass/Vol] 9.2 mg/dL Normal 8.5-10.1 [facility] Comment on above: Performed By: #### C MP ####[facility] Gzptkyrpfi4[address] [place], [place] [address]Dr. Flaco Branden Chloride [Moles/Vol] 98 mmol/L Normal 98-107 [facility] [facility] Comment on above: Performed By: #### C MP ####[facility] Utymwqfrkr[address] [place], [place] [address]Dr. Flaco Branden CO2 [Moles/Vol] 24.0 mmol/L Normal 21.0-32.0 [facility] Comment on above: Performed By: #### C MP ####[facility] Oqtbcxurvm36[address] [place], [place] [address]Dr. Flaco Branden Creatinine [Mass/Vol] 1.67 mg/dL Critically high 0.70-1.30 [facility] Comment on above: Performed By: #### C MP ####[facility] Nsihihyrnu[address] [place], [place] [address]Dr. Flaco Lawrence EGFR-AF EMIRATI 49 mL/min/1.73m2 Critically low >=60 [facility] Comment on above: Performed By: #### C MP ####[facility] Zhvcsfxktj4679 [place] [address]Dr. Flaco Branden EGFR-NON AF EMIRATI 41 mL/min/1.73m2 Critically low >=60 [facility] Comment on above: Performed By: #### C MP ####[facility] Ggnhpghgxv2727 [place] [address]Dr. Purviedith Branden Globulin (S) [Mass/Vol] 4.3 g/dL Normal [facility] Comment on above: Performed By: #### C MP ####[facility] Aytshvjioz264[address] [place], [place] [address]Dr. Flaco Lawrence Glucose [Mass/Vol] 103 mg/dL Normal 74-106 [facility] Comment on above: Performed By: #### C MP ####[facility] Khnfgnsrnn7225 [place] [address]Dr. Flaco Lawrence Potassium [Moles/Vol] 3.6 mmol/L Normal 3.5-5.1 [facility] Comment on above: Performed By: #### C MP ####[facility] Sjjurxflzb6776 [place] [address]Dr. Flaco Lawrence Protein [Mass/Vol] 6.7 g/dL Normal 6.4-8.2 [facility] Comment on above: Performed By: #### C MP ####[facility] Sftrufjqbo5109 [place] [address]Dr. Flaco Lawrence Sodium [Moles/Vol] 132 mmol/L Critically low 136-145 [facility] Comment on above: Performed By: #### C MP ####[facility] Vjtolyjmgg7[address] [place], [place] [address]Dr. Flaco Lawrence Urea nitrogen [Mass/Vol] 26.0 mg/dL Critically high 7.0-18.0 [facility] Comment on above: Performed By: #### C MP ####[facility] Jmtncgdjbk5625[address] [place], [place] [address]Dr. Flaco Lawrence Urea nitrogen/Creatinine [Mass ratio] 15.6 mg/mg Normal [facility] Comment on above: Performed By: #### C MP ####[facility] Wydjnnuypp7779 [place] [address]Dr. Flaco Lawrence CBC AUTO DIFFon 11-17-2022 BASO # 0.0 103/ul Normal 0.0-0.1 [facility] Comment on above: Performed By: #### C BC ####[facility] Mzmdgmrfcy1686[address] [place], [place] [address]Dr. Flaco Lawrence Basophils/100 WBC (Bld) 0.4 % Normal 0.2-2.0 [facility] Comment on above: Performed By: #### C BC ####[facility] Upnafgylsv5264[address] [place], [place] [address]Dr. Flaco Lawrence EO # 0.0 103/ul Normal 0.0-0.7 [facility] Comment on above: Performed By: #### C BC ####[facility] Oesxmdycka56[address] [place], [place] [address]Dr. Flaco Lawrence Eosinophils/100 WBC (Bld) 0.4 % Critically low 0.9-7.0 [facility] Comment on above: Performed By: #### C BC ####[facility] Znpeqfvfeh9348[address] [place], [place] [address]Dr. Flaco Lawrence Erythrocyte distribution width (RBC) [Ratio] 16.0 % Critically high 11.0-15.0 [facility] Comment on above: Performed By: #### C BC ####[facility] Fgakfemsrm680[address] [place], [place] [address]Dr. Flaco Lawrence Hematocrit (Bld) [Volume fraction] 36.4 % Critically low 42.0-54.0 [facility] Comment on above: Performed By: #### C BC ####[facility] Grqimqkfkh5264[address] [place], [place] [address]Dr. Flaco Lawrence Hemoglobin (Bld) [Mass/Vol] 12.0 g/dL Critically low 14.0-18.0 [facility] Comment on above: Performed By: #### C BC ####[facility] Inyefhpdkc7470 [place] [phone]. Flaco Lawrence IG # 0.03 10e3/ul Normal 0.00-0.03 [facility] Comment on above: Performed By: #### C BC ####[facility] Sibbxwehgn3572 [place] [phone]. Flaco Lawrence IG % 0.3 % Normal 0.0-0.5 [facility] Comment on above: Performed By: #### C BC ####[facility] Bkniiuoewu9584 [place] [address]Dr. Flaco Lawrence LYMPH # 1.6 103/ul Normal 1.2-3.8 [facility] Comment on above: Performed By: #### C BC ####[facility] Oemfkwhzfj5922 [place] [address]Dr. Purviedith Lawrence Lymphocytes/100 WBC (Bld) 14.7 % Critically low 20.5-60.0 [facility] Comment on above: Performed By: #### C BC ####[facility] Syxeskbnop7[address] [place], [place] [address]Dr. Flaco Branden MANUAL DIFF REQ NO Normal [facility] Comment on above: Performed By: #### C BC ####[facility] Mjcgnzxtig6809 [place] [address]Dr. Flaco Lawrence MCH (RBC) [Entitic mass] 28.2 pg Normal 25.9-34.0 [facility] Comment on above: Performed By: #### C BC ####[facility] Yzuqydaxru7755 [place] [address]Dr. Flaco Lawrence MCHC (RBC) [Mass/Vol] 33.0 g/dL Normal 29.9-35.2 [facility] Comment on above: Performed By: #### C BC ####[facility] Rdffrnsump9711[address] [place], [place] [address]Dr. Flaco Lawrence MCV (RBC) [Entitic vol] 85.4 fL Normal 80.0-94.0 [facility] Comment on above: Performed By: #### C BC ####[facility] Zhlekdzpgz1703 [place] [phone]. Flaco Lawrence MONO # 1.4 103/ul Critically high 0.3-0.[address] [facility] Comment on above: Performed By: #### C BC ####[facility] Adnzrrkmgn9954 [place] [phone]. Flaco Lawrence Monocytes/100 WBC (Bld) 12.6 % Critically high 1.7-12.0 [facility] Comment on above: Performed By: #### C BC ####[facility] Hogeeuzboe4422 [place] [phone]. Flaco Lawrence NEUT # 7.7 103/ul Critically high 1.4-6.[address] [facility] Comment on above: Performed By: #### C BC ####[facility] Ypemzixhif2140 [place] [phone]. Flaco Lawrence Neutrophils/100 WBC (Bld) 71.6 % Normal 43.0-75.0 [facility] Comment on above: Performed By: #### C BC ####[facility] Rmsndaghlj8829 [place] [phone]. Flaco Lawrence Platelet mean volume (Bld) [Entitic vol] 9.5 fL Normal 9.5-13.5 [facility] Comment on above: Performed By: #### C BC ####[facility] Yvxsdagkhh4404 [place] [phone]. Flaco Lawrence PLT 462 103/ul Critically high 150-[address] [facility] Comment on above: Performed By: #### C BC ####[facility] Couspwdvxr9657 [place] [phone]. Flaco Lawrence RBC 4.26 106/ul Critically low 4.70-6.[address] [facility] Comment on above: Performed By: #### C BC ####[facility] Ridqavvmnz1588 [place] [phone]. Flaco Lawrence WBC 10.8 103/ul Normal 4.0-11.0 [facility] Comment on above: Performed By: #### C BC ####[facility] Jtsgofchau0320 [place] [address]Dr. Flaco Lawrence MRI CSPINE WO CONon 11-17-19 23 MRI CSPINE WO CON Normal [facility] PROF 14(COMP METB)on 023 Albumin [Mass/Vol] 2.4 g/dL Critically low 3.4-5.0 [facility] Comment on above: Performed By: #### C MP ####[facility] Jlzknwxgey0108 [place] [address]Dr. Flaco Lawrence Albumin/Globulin [Mass ratio] 0.5 {ratio} Normal [facility] Comment on above: Performed By: #### C MP ####[facility] Lfurmgnprb1855 [place] [address]Dr. Flaco Lawrence ALP [Catalytic activity/Vol] 132 U/L Critically high 46-116 [facility] Comment on above: Performed By: #### C MP ####[facility] Utsxlhzsvx9213 [place] [address]Dr. Flaco Lawrence ALT [Catalytic activity/Vol] 18 U/L Normal 16-63 [facility] Comment on above: Performed By: #### C MP ####[facility] Rowewbudgh58[address] [place], [place] [address]Dr. Flaco Lawrence Anion gap [Moles/Vol] 15.7 mmol/L Normal [facility] Comment on above: Performed By: #### C MP ####[facility] Pmhwmzzxek27[address] [place], [place] [address]Dr. Flaco Lawrence AST [Catalytic activity/Vol] 26 U/L Normal 15-37 [facility] Comment on above: Performed By: #### C MP ####[facility] Fwbpcpwztm9149 [place] [address]Dr. Flaco Lawrence Bilirubin [Mass/Vol] 0.5 mg/dL Normal 0.2-1.0 [facility] Comment on above: Performed By: #### C MP ####[facility] Klmmumdsfb360[address] [place], [place] [address]Dr. Flaco Lawrence Calcium [Mass/Vol] 9.2 mg/dL Normal 8.5-10.1 [facility] Comment on above: Performed By: #### C MP ####[facility] Kddnwepmto9506 [place] [phone]. Flaco Lawrence Chloride [Moles/Vol] 99 mmol/L Normal 98-107 [facility] Comment on above: Performed By: #### C MP ####[facility] Nanqakykli2440 [place] [phone]. Flaco Lawrence CO2 [Moles/Vol] 23.9 mmol/L Normal 21.0-32.0 [facility] Comment on above: Performed By: #### C MP ####[facility] Uvzhdpooks5121 [place] [address]Dr. Flaco Branden Creatinine [Mass/Vol] 1.65 mg/dL Critically high 0.70-1.30 [facility] Comment on above: Performed By: #### C MP ####[facility] Zcboxjmvkz4831 [place] [address]Dr. Flaco Branden EGFR-AF EMIRATI 50 mL/min/1.73m2 Critically low >=60 [facility] Comment on above: Performed By: #### C MP ####[facility] Nygzlzqiun6318 [place] [address]Dr. Flaco Branden EGFR-NON AF EMIRATI 41 mL/min/1.73m2 Critically low >=60 [facility] Comment on above: Performed By: #### C MP ####[facility] Wazpnirzgk4598 [place] [address]Dr. Flaco Branden Globulin (S) [Mass/Vol] 4.5 g/dL Normal [facility] Comment on above: Performed By: #### C MP ####[facility] Huirxpyabx7442 [place] [phone]. Flaco Branden Glucose [Mass/Vol] 116 mg/dL Critically high 74-106 T [facility] Comment on above: Performed By: #### C MP ####[facility] Taurtqgump3969 [place] [address]Dr. Flaco Lawrence Potassium [Moles/Vol] 3.6 mmol/L Normal 3.5-5.1 [facility] Comment on above: Performed By: #### C MP ####[facility] Hcbbsegwzx1681 [place] [address]Dr. Flaco Lawrence Protein [Mass/Vol] 6.9 g/dL Normal 6.4-8.2 [facility] Comment on above: Performed By: #### C MP ####[facility] Krtfxyfsem8709 [place] [address]Dr. Flaco Lawrence Sodium [Moles/Vol] 135 mmol/L Critically low 136-145 [facility] Comment on above: Performed By: #### C MP ####[facility] Whbnmttmtj8090 [place] [address]Dr. Flaco Lawrence Urea nitrogen [Mass/Vol] 21.0 mg/dL Critically high 7.0-18.0 [facility] Comment on above: Performed By: #### C MP ####[facility] Atmogcqrve4[address] [place], [place] [address]Dr. Flaco Branden Urea nitrogen/Creatinine [Mass ratio] 12.7 mg/mg Normal [facility] Comment on above: Performed By: #### C MP ####[facility] Fcoabmrsrk8667[address] [place], [place] [address]Dr. Flaco Lawrence CBC W MANUAL DIFFon 11-16-19 23 ATYPICAL LYMPH # Normal [facility] Comment on above: Performed By: #### C BCMAN ####[facility] Wxbxnkallk18[address] [place], [place] [address]Dr. Flaco Branden ATYPICAL LYMPH % Normal [facility] Comment on above: Performed By: #### C BCMAN ####[facility] Iebwynhbxt3856 [place] [address]Dr. Purviedith Lawrence BAND # 0.0 103/ul Normal 0.0-0.3 [facility] Comment on above: Performed By: #### C BCMAN ####[facility] Vqtdsxrnzc[address] [place], [place] [address]Dr. Flaco Lawrence BAND % 0 % Normal 0-5 [facility] Comment on above: Performed By: #### C BCMAN ####[facility] Qvvgwghvzc3588 [place] [phone]. Flaco Lawrence BASOM # 0.00 103/ul Normal 0.00-0.10 [facility] Comment on above: Performed By: #### C BCMAN ####[facility] Mlpuwkkhwn5521 [place] [address]Dr. Flaco Lawrence BASOM % 0.0 % Critically low 0.2-2.0 [facility] Comment on above: Performed By: #### C BCMAN ####[facility] Itppfqdrax3666 [place] [address]Dr. Flaco Lawrence BLAST # Normal [facility] Comment on above: Performed By: #### C BCMAN ####[facility] Uhxnjwhblf12[address] [place], [place] [address]Dr. Flaco Lawrence BLAST % Normal [facility] Comment on above: Performed By: #### C BCGAYATHRI ####[facility] Hjqlbdrwka22[address] [place], [place] [address]Dr. Flaco Lawrence CORRECTED WBC Normal 4.0-11.0 [facility] Comment on above: Performed By: #### C BCMAN ####[facility] Pwyfmawvwy8[address] [place], [place] [address]Dr. Flaco Lawrence EOS # 0.00 103/ul Normal 0.00-0.70 [facility] Comment on above: Performed By: #### C BCMAN ####[facility] Iobcptaoih15[address] [place], [place] [address]Dr. Flaco Lawrence EOS% 0.0 % Critically low 0.9-7.0 [facility] Comment on above: Performed By: #### C BCMAN ####[facility] Iqrgtuimni6020 [place] [phone]. Flaco Lawrence HCT 35.9 % Critically low 42.0-54.0 [facility] Comment on above: Performed By: #### C BCMAN ####[facility] Huptpeuuuw33[address] [place], [place] [address]Dr. Flaco Lawrence HGB 12.0 g/dl Critically low 14.0-18.0 [facility] Comment on above: Performed By: #### Corina GUTHRIE ####[facility] Vccjxjbdux0755 [place], [place] [address]Ni. Flaco Lawrence LYMPHM # 1.42 103/ul Normal 1.20-3.80 [facility] Comment on above: Performed By: #### Corina GUTHRIE ####[facility] Dritanbvwd3537 [place], [place] [address]Hi. Flaco Lawrence LYMPHM% 11.0 % Critically low 20.5-60.0 [facility] Comment on above: Performed By: #### Corina GUTHRIE ####[facility] Fowdvsjshr5047 [place] [phone]. Flaco Lawrence MCH 28.6 pg Normal 25.9-34.0 [facility] Comment on above: Performed By: #### Corina GUTHRIE ####[facility] Uxiorfpkwa1273 [place] [phone]. Flaco Lawrence MCHC 33.4 g/dl Normal 29.9-35.2 [facility] Comment on above: Performed By: #### Corina GUTHRIE ####[facility] Rthsxyjolp8026 [place] [phone]. Flaco Lawrence MCV 85.5 fL Normal 80.0-94.0 [facility] Comment on above: Performed By: #### Corina GUTHRIE ####[facility] Dgyhoypgyc4454 [place] [phone]. Flaco Lawrence METAMYELOCYTE # Normal [facility] Comment on above: Performed By: #### Corina GUTHRIE ####[facility] Ounkvdlshw4453 [place] [phone]. Flaco Lawrence METAMYELOCYTE % Normal [facility] Comment on above: Performed By: #### Corina GUTHRIE ####[facility] Qbvpmvrnkr4650 [place] [phone]. Flaco Lawrence MONOM# 1.42 103/ul Critically high 0.30-0.80 [facility] Comment on above: Performed By: #### Corina GUTHRIE ####[facility] Usyaiiiime0894 [place] [phone]. Flaco Lawrence MONOM% 11.0 % Normal 1.7-12.0 [facility] Comment on above: Performed By: #### C C[place]AND ####[facility] Aisddvjtzv0039 [place] [phone]. Flaco Lawrence MPV 9.5 fL Normal 9.5-13.5 [facility] Comment on above: Performed By: #### C C[place]AND ####[facility] Pshmdxfdcy5553 [place] [phone]. Flaco Lawrence MYELOCYTE # Normal [facility] Comment on above: Performed By: #### C C[place] ####[facility] Qhixzxaqqz4292 [place] [phone]. lFaco Lawrence MYELOCYTE % Normal [facility] Comment on above: Performed By: #### C C[place] ####[facility] Fsgkshiirb4961 [place] [phone]. Flaco Lawrence NRBC Normal [facility] Comment on above: Performed By: #### C C[place] ####[facility] Vwglmdxqno7659 [place] [phone]. Flaco Lawrence PLT 469 103/ul Critically high 150-[address] [facility] Comment on above: Performed By: #### C C[place] ####[facility] Fyyrukiwmz4359 [place] [phone]. Flaco Lawrence RBC 4.20 106/ul Critically low 4.70-6.[address] [facility] Comment on above: Performed By: #### C C[place] ####[facility] Zypzznvvks4154 [place] [phone]. Flaco Lawrence RDW 16.3 % Critically high 11.0-15.[address] [facility] Comment on above: Performed By: #### C C[place] ####[facility] Ybziqsueuo5299 [place] [phone]. Flaco Lawrence SEG # 10.06 103/ul Critically high 1.40-6.[address] [facility] Comment on above: Performed By: #### C C[place] ####[facility] Wlpsmzdrnl3892 [place] [address]Dr. Flaco Lawrence SEG % 78.0 % Critically high 43.0-75.0 [facility] Comment on above: Performed By: #### C BCMAN ####[facility] Qbgmmhfyap0949 [place] [address]Dr. Flaco Lawrence WBC 12.9 103/ul Critically high 4.0-11.0 [facility] Comment on above: Performed By: #### C BCMAN ####[facility] Czoyufnmyr3578 [place] [address]Dr. Flaco Lawrence PROF 14(COMP METB)on 023 Albumin [Mass/Vol] 2.5 g/dL Critically low 3.4-5.0 [facility] Comment on above: Performed By: #### C MP ####[facility] Etcxhyajqh4[address] [place], [place] [address]Dr. Flaco Lawrence Albumin/Globulin [Mass ratio] 0.6 {ratio} Normal [facility] Comment on above: Performed By: #### C MP ####[facility] Nistiqoxvb6053 [place] [address]Dr. Flaco Lawrence ALP [Catalytic activity/Vol] 118 U/L Critically high 46-116 [facility] Comment on above: Performed By: #### C MP ####[facility] Jwmcwxgdbw038[address] [place], [place] [address]Dr. Flaco Lawrence ALT [Catalytic activity/Vol] 12 U/L Critically low 16-63 [facility] Comment on above: Performed By: #### C MP ####[facility] Szbsdpslzv024[address] [place], [place] [address]Dr. Flaco Lawrence Anion gap [Moles/Vol] 15.8 mmol/L Normal [facility] Comment on above: Performed By: #### C MP ####[facility] Bccckqetgy084[address] [place], [place] [address]Dr. Flaco Lawrence AST [Catalytic activity/Vol] 22 U/L Normal 15-37 [facility] Comment on above: Performed By: #### C MP ####[facility] Hoptulrejf8579[address] [place], [place] [address]Dr. Flaco Lawrence Bilirubin [Mass/Vol] 0.8 mg/dL Normal 0.2-1.0 [facility] Comment on above: Performed By: #### C MP ####[facility] Bmoyfupged0229 [place] [address]Dr. Flaco Lawrence Calcium [Mass/Vol] 8.9 mg/dL Normal 8.5-10.1 [facility] Comment on above: Performed By: #### C MP ####[facility] Pyzyuonigy5665 [place] [address]Dr. Flaco Lawrence Chloride [Moles/Vol] 97 mmol/L Critically low 98-107 [facility] Comment on above: Performed By: #### C MP ####[facility] Evqfnlabxw5163 [place] [address]Dr. Flaco Lawrence CO2 [Moles/Vol] 22.8 mmol/L Normal 21.0-32.0 [facility] Comment on above: Performed By: #### C MP ####[facility] Kxnirlexfy9837[address] [place], [place] [address]Dr. Flaco Lawrence Creatinine [Mass/Vol] 1.64 mg/dL Critically high 0.70-1.30 [facility] Comment on above: Performed By: #### C MP ####[facility] Ymdyqparzz7996[address] [place], [place] [address]Dr. Flaco Lawrence EGFR-AF EMIRATI 50 mL/min/1.73m2 Critically low >=60 [facility] Comment on above: Performed By: #### C MP ####[facility] Ineykezbix0740 [place] [address]Dr. Flaco Branden EGFR-NON AF EMIRATI 42 mL/min/1.73m2 Critically low >=60 [facility] Comment on above: Performed By: #### C MP ####[facility] Ncmassridf6018 [place] [address]Dr. Flaco Branden Globulin (S) [Mass/Vol] 4.2 g/dL Normal [facility] Comment on above: Performed By: #### C MP ####[facility] Qyscmfjbxh2271 [place] [address]Dr. Flaco Lawrence Glucose [Mass/Vol] 110 mg/dL Critically high 74-106 T [facility] Comment on above: Performed By: #### C MP ####[facility] Rdxlhetnck44[address] [place], [place] [address]Dr. Flaco Lawrence Potassium [Moles/Vol] 3.6 mmol/L Normal 3.5-5.1 [facility] Comment on above: Performed By: #### C MP ####[facility] Pgitcyjnis4552[address] [place], [place] [address]Dr. Flaco Lawrence Protein [Mass/Vol] 6.7 g/dL Normal 6.4-8.2 [facility] Comment on above: Performed By: #### C MP ####[facility] Bxzeeimztt2133[address] [place], [place] [address]Dr. Flaco Lawrence Sodium [Moles/Vol] 132 mmol/L Critically low 136-145 [facility] Comment on above: Performed By: #### C MP ####[facility] Civdmavcne30[address] [place], [place] [address]Dr. Flaco Lawrence Urea nitrogen [Mass/Vol] 20.0 mg/dL Critically high 7.0-18.0 [facility] Comment on above: Performed By: #### C MP ####[facility] Ydelxkohnq1931[address] [place], [place] [address]Dr. Flaco Lawrence Urea nitrogen/Creatinine [Mass ratio] 12.2 mg/mg Normal [facility] Comment on above: Performed By: #### C MP ####[facility] Rlyvzljgxs7[address] [place], [place] [address]Dr. Flaco Lawrence AMMONIAon 11-15-2022 Ammonia (P) [Moles/Vol] 22 umol/L Normal 11-32 [facility] Comment on above: Performed By: #### A MM ####[facility] Ovcwwtavaq24[address] [place], [place] [address]Dr. Flaco Lawrence CBC AUTO DIFFon 11-15-2022 BASO # 0.0 103/ul Normal 0.0-0.1 [facility] Comment on above: Performed By: #### C BC ####[facility] Pbpxhxkbyd8904 [place] [phone]. Flaco Lawrence Basophils/100 WBC (Bld) 0.3 % Normal 0.2-2.0 [facility] Comment on above: Performed By: #### C BC ####[facility] Hvizbpmfdt7187 [place] [phone]. Flaco Lawrence EO # 0.0 103/ul Normal 0.0-0.7 [facility] Comment on above: Performed By: #### C BC ####[facility] Hpawfexpju866[address] [place], [place] [address]Dr. Flaco Lawrence Eosinophils/100 WBC (Bld) 0.3 % Critically low 0.9-7.0 [facility] Comment on above: Performed By: #### C BC ####[facility] Yatvhedhzb35[address] [place], [place] [address]Dr. Flaco Lawrence Erythrocyte distribution width (RBC) [Ratio] 16.3 % Critically high 11.0-15.0 [facility] Comment on above: Performed By: #### C BC ####[facility] Dxeuetartg825[address] [place], [place] [address]Dr. Flaco Lawrence Hematocrit (Bld) [Volume fraction] 39.2 % Critically low 42.0-54.0 [facility] Comment on above: Performed By: #### C BC ####[facility] Wzpgklwymm25[address] [place], [place] [address]Dr. Flaco Lawrence Hemoglobin (Bld) [Mass/Vol] 12.9 g/dL Critically low 14.0-18.0 [facility] Comment on above: Performed By: #### C BC ####[facility] Xtljkdimqx1541[address] [place], [place] [address]Dr. Flaco Lawrence IG # 0.05 10e3/ul Critically high 0.00-0.03 [facility] Comment on above: Performed By: #### C BC ####[facility] Ryregidgus6876[address] [place], [place] [address]Dr. Flaco Lawrence IG % 0.4 % Normal 0.0-0.5 [facility] Comment on above: Performed By: #### C BC ####[facility] Iazaxjwteg9524 [place] [phone]. Flaco Lawrence LYMPH # 1.6 103/ul Normal 1.2-3.8 [facility] Comment on above: Performed By: #### C BC ####[facility] Wewbxstkfm8864 [place] [phone]. Flaco Lawrence Lymphocytes/100 WBC (Bld) 12.5 % Critically low 20.5-60.0 [facility] Comment on above: Performed By: #### C BC ####[facility] Camcnpytem1235 [place] [phone]. Flaco Lawrence MANUAL DIFF REQ NO Normal [facility] Comment on above: Performed By: #### C BC ####[facility] Lpyykeppvo4623 [place] [phone]. Flaco Lawrence MCH (RBC) [Entitic mass] 28.7 pg Normal 25.9-34.0 [facility] Comment on above: Performed By: #### C BC ####[facility] Fkherqztnu5367 [place] [phone]. Flaco Lawrence MCHC (RBC) [Mass/Vol] 32.9 g/dL Normal 29.9-35.2 [facility] Comment on above: Performed By: #### C BC ####[facility] Qkkunbipin6261 [place] [phone]. Flaco Lawrence MCV (RBC) [Entitic vol] 87.1 fL Normal 80.0-94.0 [facility] Comment on above: Performed By: #### C BC ####[facility] Msruerestp1816 [place] [phone]. Flaco Lawrence MONO # 1.4 103/ul Critically high 0.3-0.[address] [facility] Comment on above: Performed By: #### C BC ####[facility] Lwpepmnysz6848 [place] [phone]. Flaco Lawrence Monocytes/100 WBC (Bld) 11.2 % Normal 1.7-12.0 [facility] Comment on above: Performed By: #### C BC ####[facility] Cyiaxsdoji4803 [place] [phone] Lojaedith Lawrence NEUT # 9.4 103/ul Critically high 1.4-6.5 [facility] Comment on above: Performed By: #### C BC ####[facility] Mvnvyrbsid1925 [place] [phone] Lawrence Neutrophils/100 WBC (Bld) 75.3 % Critically high 43.0-75.0 [facility] Comment on above: Performed By: #### C BC ####[facility] Aodiwqqnab1415 [place] [phone] Lawrence Platelet mean volume (Bld) [Entitic vol] 9.3 fL Critically low 9.5-13.5 [facility] Comment on above: Performed By: #### C BC ####[facility] Ytxyzdxsiy6072 [place] [address]DrJeramie Lawrence PLT 532 103/ul Critically high 150-450 [facility] Comment on above: Performed By: #### C BC ####[facility] Rvhpmfbjmn3072 [place] [address]DrJeramie Lawrence RBC 4.50 106/ul Critically low 4.70-6.10 [facility] Comment on above: Performed By: #### C BC ####[facility] Sbpjkytfjs5460 [place] [phone] Lawrence WBC 12.5 103/ul Critically high 4.0-11.0 [facility] Comment on above: Performed By: #### C BC ####[facility] Bhdyhpgquq5802 [place] [phone]. Flaco Lawrence PROF 14(COMP METB)on 023 Albumin [Mass/Vol] 3.0 g/dL Critically low 3.4-5.0 [facility] Comment on above: Performed By: #### C MP ####[facility] Qxngcazdck6506 [place] [address]DrJeramie Lawrence Albumin/Globulin [Mass ratio] 0.5 {ratio} Normal [facility] Comment on above: Performed By: #### C MP ####[facility] Zczuycpgzd4497 [place] [address]Dr. Flaco Branden ALP [Catalytic activity/Vol] 103 U/L Normal 46-116 [facility] Comment on above: Performed By: #### C MP ####[facility] Rgsuskmsir6378 [place] [address]Dr. Purviedith Branden ALT [Catalytic activity/Vol] 12 U/L Critically low 16-63 [facility] Comment on above: Performed By: #### C MP ####[facility] Thzpfesmgm35[address] [place], [place] [address]Dr. Flaco Lawrence Anion gap [Moles/Vol] 16.8 mmol/L Normal [facility] Comment on above: Performed By: #### C MP ####[facility] Ezsazzaquz7[address] [place], [place] [address]Dr. Flaco Lawrence AST [Catalytic activity/Vol] 16 U/L Normal 15-37 [facility] Comment on above: Performed By: #### C MP ####[facility] Kyifdqamrv701[address] [place], [place] [address]Dr. Flaco Lawrence Bilirubin [Mass/Vol] 1.0 mg/dL Normal 0.2-1.0 [facility] Comment on above: Performed By: #### C MP ####[facility] Zjhhtmxqhi3257[address] [place], [place] [address]Dr. Flaco Lawrence Calcium [Mass/Vol] 9.8 mg/dL Normal 8.5-10.1 [facility] Comment on above: Performed By: #### C MP ####[facility] Acoecieugy023[address] [place], [place] [address]Dr. Flaco Lawrence Chloride [Moles/Vol] 98 mmol/L Normal 98-107 [facility] Comment on above: Performed By: #### C MP ####[facility] Zvddxneotk0090 [place] [address]Dr. Flaco Lawrence CO2 [Moles/Vol] 24.3 mmol/L Normal 21.0-32.0 [facility] Comment on above: Performed By: #### C MP ####[facility] Dordyvwgwc0396 [place] [phone]. Flaco Lawrence Creatinine [Mass/Vol] 1.86 mg/dL Critically high 0.70-1.30 [facility] Comment on above: Performed By: #### C MP ####[facility] Hmtjxefvsb2521 [place] [phone]. Flaco Lawrence EGFR-AF EMIRATI 44 mL/min/1.73m2 Critically low >=60 [facility] Comment on above: Performed By: #### C MP ####[facility] Ccvmcbwsgt0601 [place] [phone]. Flaco Branden EGFR-NON AF EMIRATI 36 mL/min/1.73m2 Critically low >=60 [facility] Comment on above: Performed By: #### C MP ####[facility] Egilfvplyi2762 [place] [phone]. Flaco Lawrence Globulin (S) [Mass/Vol] 5.6 g/dL Normal [facility] Comment on above: Performed By: #### C MP ####[facility] Ezxmmgmcgz0156 [place] [phone]. Flaco Lawrence Glucose [Mass/Vol] 108 mg/dL Critically high 74-106 [facility] Comment on above: Performed By: #### C MP ####[facility] Flprwiliij2803 [place] [phone]. Flaco Branden Potassium [Moles/Vol] 4.1 mmol/L Normal 3.5-5.1 [facility] Comment on above: Performed By: #### C MP ####[facility] Zgiglrjjhl9278 [place] [phone]. Flaco Lawrence Protein [Mass/Vol] 8.6 g/dL Critically high 6.4-8.2 [facility] Comment on above: Performed By: #### C MP ####[facility] Qhgqqoizzk3717 [place] [phone]. Flaco Lawrence Sodium [Moles/Vol] 135 mmol/L Critically low 136-145 [facility] Comment on above: Performed By: #### C MP ####[facility] Ywekannmpx7536 [place] [phone]. Flaco Lawrence Urea nitrogen [Mass/Vol] 18.0 mg/dL Normal 7.0-18.0 [facility] Comment on above: Performed By: #### C MP ####[facility] Faylitoiuo2066 [place] [phone]. Flaco Branden Urea nitrogen/Creatinine [Mass ratio] 9.7 mg/mg Normal [facility] Comment on above: Performed By: #### C MP ####[facility] Rjwtskoxux4468 [place] [phone]. Flaco Branden CT HEAD WO CONon 11-14-2022 CT HEAD WO CON Normal [facility] MRI LSPINE WO CONon 11-14-19 MRI LSPINE WO CON Normal [facility] CBC AUTO DIFFon 11-13-2022 BASO # 0.0 103/ul Normal 0.0-0.1 [facility] Comment on above: Performed By: #### C BC ####[facility] Dolmkbwvqq2648 [place] [phone]. Flaco Branden Basophils/100 WBC (Bld) 0.4 % Normal 0.2-2.0 [facility] Comment on above: Performed By: #### C BC ####[facility] Staixnulas9680 [place] [phone]. Flaco Branden EO # 0.1 103/ul Normal 0.0-0.7 [facility] Comment on above: Performed By: #### C BC ####[facility] Lojokrvhfy0798 [place] [phone]. Flaco Branden Eosinophils/100 WBC (Bld) 1.0 % Normal 0.9-7.0 [facility] Comment on above: Performed By: #### C BC ####[facility] Mrpvzgctre6528 [place] [phone]. Flaco Branden Erythrocyte distribution width (RBC) [Ratio] 15.9 % Critically high 11.0-15.0 [facility] Comment on above: Performed By: #### C BC ####[facility] Udqpuozefr2250 [place] [address]Dr. Flaco Lawrence Hematocrit (Bld) [Volume fraction] 35.9 % Critically low 42.0-54.0 [facility] Comment on above: Performed By: #### C BC ####[facility] Rjzauodcya3985 [place] [address]DrJeramie Lojaedith Branden Hemoglobin (Bld) [Mass/Vol] 11.9 g/dL Critically low 14.0-18.0 [facility] Comment on above: Performed By: #### C BC ####[facility] Knwasvwsck57[address] [place], [place] [address]DrJeramie Lawrence IG # 0.03 10e3/ul Normal 0.00-0.03 [facility] Comment on above: Performed By: #### C BC ####[facility] Bstjjaxymz5018[address] [place], [place] [address]DrJeramie Lawrence IG % 0.4 % Normal 0.0-0.5 [facility] Comment on above: Performed By: #### C BC ####[facility] Ejxxckvchf9[address] [place], [place] [address]DrJeramie Purviedith Lawrence LYMPH # 1.8 103/ul Normal 1.2-3.8 [facility] Comment on above: Performed By: #### C BC ####[facility] Qoeiclqdwe8375[address] [place], [place] [address]DrJeramie Lawrence Lymphocytes/100 WBC (Bld) 22.2 % Normal 20.5-60.0 [facility] Comment on above: Performed By: #### C BC ####[facility] Mxwudxivdv6332 [place] [address]DrJeramie Lawrence MANUAL DIFF REQ NO Normal [facility] Comment on above: Performed By: #### C BC ####[facility] Vvayuqyngh5861 [place] [address]DrJeramie Lawrence MCH (RBC) [Entitic mass] 28.8 pg Normal 25.9-34.0 [facility] Comment on above: Performed By: #### C BC ####[facility] Ofcwbzlodd1963 [place] [phone]. Flaco Branden MCHC (RBC) [Mass/Vol] 33.1 g/dL Normal 29.9-35.2 [facility] Comment on above: Performed By: #### C BC ####[facility] Rahqrnwlnb7185 [place] [phone] Lawrence MCV (RBC) [Entitic vol] 86.9 fL Normal 80.0-94.0 [facility] Comment on above: Performed By: #### C BC ####[facility] Tpbdxlmzrj2942 [place] [phone] Lawrence MONO # 1.0 103/ul Critically high 0.3-0.8 [facility] Comment on above: Performed By: #### C BC ####[facility] Geoeiuqhcm023[address] [place], [place] [address]DrJeramie Lawrence Monocytes/100 WBC (Bld) 13.0 % Critically high 1.7-12.0 [facility] Comment on above: Performed By: #### C BC ####[facility] Fhcdelmevf4[address] [place], [place] [address]DrJeramie Lawrence NEUT # 5.0 103/ul Normal 1.4-6.5 [facility] Comment on above: Performed By: #### C BC ####[facility] Gkmhnugnqh5324[address] [place], [place] [address]DrJeramie Lawrence Neutrophils/100 WBC (Bld) 63.0 % Normal 43.0-75.0 [facility] Comment on above: Performed By: #### C BC ####[facility] Zsiupztgjq537[address] [place], [place] [address]DrJeramie Lawrence Platelet mean volume (Bld) [Entitic vol] 9.5 fL Normal 9.5-13.5 [facility] Comment on above: Performed By: #### C BC ####[facility] Nhvoaiskfo1273 [place] [phone] Lawrence PLT 335 103/ul Normal 150-450 [facility] Comment on above: Performed By: #### C BC ####[facility] Hvbmdyzzoj4585 [place] [address]Dr. Flaco Lawrence RBC 4.13 106/ul Critically low 4.70-6.10 [facility] Comment on above: Performed By: #### C BC ####[facility] Oipariahhv9114[address] [place], [place] [address]Dr. Flaco Branden WBC 7.9 103/ul Normal 4.0-11.0 [facility] Comment on above: Performed By: #### C BC ####[facility] Nhslrnnpwp8287[address] [place], [place] [address]Dr. Purviedith Branden ER URINE PROFILEon 3 Bilirubin Ql (U) Negative Normal NEGATIVE [facility] Comment on above: Performed By: #### E RUR ####[facility] Ymrkjhhmhh8329[address] [place], [place] [address]Dr. Flaco Lawrenec Clarity (U) CLEAR Normal CLEAR [facility] Comment on above: Performed By: #### E RUR ####[facility] Uzvrrqjkzy3886[address] [place], [place] [address]Dr. Purviedith Branden Color (U) LT. YELLOW Normal YELLOW [facility] Comment on above: Performed By: #### E RUR ####[facility] Wtrsbyhash4473[address] [place], [place] [address]Dr. Flaco Lawrence ERUAHD A micrscopic examination will be performed if indicated. Normal [facility] Comment on above: Performed By: #### E RUR ####[facility] Omyzvukdft6843[address] [place], [place] [address]Dr. Flaco Lawrence Glucose Ql (U) Negative Normal NEGATIVE [facility] Comment on above: Performed By: #### E RUR ####[facility] Toickanygh9075[address] [place], [place] [address]Dr. Flaco Lawrence Hemoglobin Ql (U) Negative Normal NEGATIVE [facility] Comment on above: Performed By: #### E RUR ####[facility] Mswjdmxuuv044[address] [place], [place] [address]Dr. Flaco Lawrence Ketones Ql (U) Negative Normal NEGATIVE [facility] Comment on above: Performed By: #### E RUR ####[facility] Myifxgtbdq7197 [place] [address]Dr. Flaco Lawrence LEUKOCYTES Negative Normal NEGATIVE [facility] Comment on above: Performed By: #### E RUR ####[facility] Tyzxkrnxbw9057 [place] [address]Dr. Flaco Lawrence Nitrite Ql (U) Negative Normal NEGATIVE [facility] Comment on above: Performed By: #### E RUR ####[facility] Osrkbfcvtf6585[address] [place], [place] [address]Dr. Flaco Lawrence pH (U) 5.5 [pH] Normal 5-9 [facility] Comment on above: Performed By: #### E RUR ####[facility] Kzpuotfbmi0996[address] [place], [place] [address]Dr. Flaco Lawrence SPEC GRAVITY <=1.005 Abnormal 1.005-<=1.[address] [place] [address] Comment on above: Performed By: #### E RUR ####[facility] Hnotjxbxum5032[address] [place], [place] [address]Dr. Flaco Lawrence UA PROTEIN Negative Normal NEGATIVE/ TRACE [facility] Comment on above: Performed By: #### E RUR ####[facility] Wtcbtdzlcp5818[address] [place], [place] [address]Dr. Flaco Lawrence UR MICRO IND NOT INDICATED Normal [facility] Comment on above: Performed By: #### E RUR ####[facility] Hnnkkbyqob538[address] [place], [place] [address]Dr. Flaco Lawrence Urobilinogen Qn (U) 0.2 {Tuan'U}/dL Normal 0.2 - 1. 0 [facility] Comment on above: Performed By: #### E RUR ####[facility] Uojnauggvv7577[address] [place], [place] [address]Dr. Flaco Lawrence PROF CHEM 8 (BAS METB)on Anion gap [Moles/Vol] 13.6 mmol/L Normal [facility] Comment on above: Performed By: #### B MP ####[facility] Hqsnhqzotf5166 [place] [phone]. Flaco Lawrence Calcium [Mass/Vol] 9.2 mg/dL Normal 8.5-10.1 [facility] Comment on above: Performed By: #### B MP ####[facility] Xrzbuljrhf9169 [place] [phone]. Flaco Lawrence Chloride [Moles/Vol] 104 mmol/L Normal 98-107 [facility] Comment on above: Performed By: #### B MP ####[facility] Gemogdifpx9406 [place] [address]Dr. Flaco Lawrence CO2 [Moles/Vol] 24.9 mmol/L Normal 21.0-32.0 [facility] Comment on above: Performed By: #### B MP ####[facility] Nraqtywofw7[address] [place], [place] [address]Dr. Flaco Lawrence Creatinine [Mass/Vol] 1.59 mg/dL Critically high 0.70-1.30 [facility] Comment on above: Performed By: #### B MP ####[facility] Irqvucqipr7348[address] [place], [place] [address]Dr. Flaco Lawrence EGFR-AF EMIRATI 52 mL/min/1.73m2 Critically low >=60 [facility] Comment on above: Performed By: #### B MP ####[facility] Isdvjksqvn5569[address] [place], [place] [address]Dr. Flaco Lawrence EGFR-NON AF EMIRATI 43 mL/min/1.73m2 Critically low >=60 [facility] Comment on above: Performed By: #### B MP ####[facility] Vpckhpcisl0857[address] [place], [place] [address]Dr. Flaco Lawrence Glucose [Mass/Vol] 119 mg/dL Critically high 74-106 [facility] Comment on above: Performed By: #### B MP ####[facility] Vtfdwxojug3691[address] [place], [place] [address]Dr. Flaco Lawrence Potassium [Moles/Vol] 3.5 mmol/L Normal 3.5-5.1 [facility] Comment on above: Performed By: #### B MP ####[facility] Onljumemis9470 [place] [address]Dr. Flaco Lawrence Sodium [Moles/Vol] 139 mmol/L Normal 136-145 [facility] Comment on above: Performed By: #### B MP ####[facility] Jylqderfkq386[address] [place], [place] [address]Dr. Flaco Lawrence Urea nitrogen [Mass/Vol] 12.0 mg/dL Normal 7.0-18.0 [facility] Comment on above: Performed By: #### B MP ####[facility] Yjthjepnge9724[address] [place], [place] [address]Dr. Flaco Lawrence Urea nitrogen/Creatinine [Mass ratio] 7.5 mg/mg Normal [facility] Comment on above: Performed By: #### B MP ####[facility] Bqpeppiwre8987[address] [place], [place] [address]Dr. Flaco Branden CBC AUTO DIFFon 11-12-2022 BASO # 0.0 103/ul Normal 0.0-0.1 [facility] Comment on above: Performed By: #### C BC ####[facility] Jociriktgv1612[address] [place], [place] [address]Dr. Flaco Branden Basophils/100 WBC (Bld) 0.4 % Normal 0.2-2.0 [facility] Comment on above: Performed By: #### C BC ####[facility] Xqizkaxtbx1496[address] [place], [place] [address]Dr. Flaco Lawrence EO # 0.1 103/ul Normal 0.0-0.7 [facility] Comment on above: Performed By: #### C BC ####[facility] Cdmhfhaapa9996[address] [place], [place] [address]Dr. Flaco Branden Eosinophils/100 WBC (Bld) 0.6 % Critically low 0.9-7.0 [facility] Comment on above: Performed By: #### C BC ####[facility] Fqyujywujj8654[address] [place], [place] [address]Dr. Flaco Lawrence Erythrocyte distribution width (RBC) [Ratio] 15.9 % Critically high 11.0-15.0 [facility] Comment on above: Performed By: #### C BC ####[facility] Rshpvlxlai7163 [place] [address]Dr. Flaco Lawrence Hematocrit (Bld) [Volume fraction] 36.0 % Critically low 42.0-54.0 [facility] Comment on above: Performed By: #### C BC ####[facility] Ygdhxfgsuz1958 [place] [address]DrJeramie Flaco Branden Hemoglobin (Bld) [Mass/Vol] 11.9 g/dL Critically low 14.0-18.0 [facility] Comment on above: Performed By: #### C BC ####[facility] Ojsqoypzyu8436[address] [place], [place] [address]DrJeramie Flaco Branden IG # 0.03 10e3/ul Normal 0.00-0.03 [facility] Comment on above: Performed By: #### C BC ####[facility] Ssfypvfltb8219[address] [place], [place] [address]DrJeramie Lawrence IG % 0.3 % Normal 0.0-0.5 [facility] Comment on above: Performed By: #### C BC ####[facility] Joiupdmzrg8986[address] [place], [place] [address]DrJeramie Flaco Branden LYMPH # 1.9 103/ul Normal 1.2-3.8 [facility] Comment on above: Performed By: #### C BC ####[facility] Izduihojhh9[address] [place], [place] [address]DrJeramie Purviedith Lawrence Lymphocytes/100 WBC (Bld) 19.3 % Critically low 20.5-60.0 [facility] Comment on above: Performed By: #### C BC ####[facility] Rkakksxcho3933 [place] [address]DrJeramie Purviedith Lawrence MANUAL DIFF REQ NO Normal [facility] Comment on above: Performed By: #### C BC ####[facility] Thzqbcyzod5832 [place] [address]DrJeramie Lawrence MCH (RBC) [Entitic mass] 28.6 pg Normal 25.9-34.0 [facility] Comment on above: Performed By: #### C BC ####[facility] Cqtlpxkdtp8482 [place] [phone]. Flaco Lawrence MCHC (RBC) [Mass/Vol] 33.1 g/dL Normal 29.9-35.2 [facility] Comment on above: Performed By: #### C BC ####[facility] Zrvaslgpks9489 [place] [phone]. Flaco Branden MCV (RBC) [Entitic vol] 86.5 fL Normal 80.0-94.0 [facility] Comment on above: Performed By: #### C BC ####[facility] Nbpsdzlkwt1944 [place] [phone] Lawrence MONO # 1.2 103/ul Critically high 0.3-0.[address] [facility] Comment on above: Performed By: #### C BC ####[facility] Lzwqgmevaj4234 [place] [phone]. Flaco Lawrence Monocytes/100 WBC (Bld) 12.5 % Critically high 1.7-12.0 [facility] Comment on above: Performed By: #### C BC ####[facility] Qtfablrvux3614 [place] [phone]. Flaco Branden NEUT # 6.5 103/ul Normal 1.4-6.5 [facility] Comment on above: Performed By: #### C BC ####[facility] Vqihbmibkf0409 [place] [phone]. Flaco Lawrence Neutrophils/100 WBC (Bld) 66.9 % Normal 43.0-75.0 [facility] Comment on above: Performed By: #### C BC ####[facility] Yavalvmwtu4027 [place] [phone] Lojaedith Branden Platelet mean volume (Bld) [Entitic vol] 9.6 fL Normal 9.5-13.5 [facility] Comment on above: Performed By: #### C BC ####[facility] Nsnvchoofq5139 [place] [phone]. Flaco Lawrence PLT 345 103/ul Normal 150-450 [facility] Comment on above: Performed By: #### C BC ####[facility] Zutvypabws0348 [place] [phone]. Flaco Lawrence RBC 4.16 106/ul Critically low 4.70-6.[address] [facility] Comment on above: Performed By: #### C BC ####[facility] Ckmxrcimgg9001 [place] [phone]. Flaco Lawrence WBC 9.7 103/ul Normal 4.0-11.0 [facility] Comment on above: Performed By: #### C BC ####[facility] Qwvtbzwglk2972 [place] [phone]. Flaco Lawrence ECHOCARDIO M/2D COMPLETEon 0 11-12-2022 ECHOCARDIO M/2D COMPLETE Normal [facility] MRA NECK WO CONon 11-12-2022 MRA NECK WO CON Normal [facility] MRI BRAIN WO CONon MRI BRAIN WO CON Normal [facility] PROF CHEM 8 (BAS METB)on Anion gap [Moles/Vol] 12.7 mmol/L Normal [facility] Comment on above: Performed By: #### B MP ####[facility] Sqguofxshr7640 [place] [address]Dr. Flaco Lawrence Calcium [Mass/Vol] 8.8 mg/dL Normal 8.5-10.1 [facility] Comment on above: Performed By: #### B MP ####[facility] Lzzgmixows5712 [place] [address]Dr. Flaco Lawrence Chloride [Moles/Vol] 102 mmol/L Normal 98-107 [facility] Comment on above: Performed By: #### B MP ####[facility] Ggclenkpzv1736 [place] [phone]. Flaco Lawrence CO2 [Moles/Vol] 24.9 mmol/L Normal 21.0-32.0 [facility] Comment on above: Performed By: #### B MP ####[facility] Tuzbrjiqyp8273 [place] [phone]. Flaco Lawrence Creatinine [Mass/Vol] 1.58 mg/dL Critically high 0.70-1.30 [facility] Comment on above: Performed By: #### B MP ####[facility] Awbneeuxup2422 [place] [address]Dr. Flaco Lawrence EGFR-AF EMIRATI 53 mL/min/1.73m2 Critically low >=60 [facility] Comment on above: Performed By: #### B MP ####[facility] Zvfjkdbhmw5101 [place] [address]Dr. Flaco Lawrence EGFR-NON AF EMIRATI 43 mL/min/1.73m2 Critically low >=60 [facility] Comment on above: Performed By: #### B MP ####[facility] Ktqpjtybnn88[address] [place], [place] [address]Dr. Flaco Lawrence Glucose [Mass/Vol] 107 mg/dL Critically high 74-106 T [facility] Comment on above: Performed By: #### B MP ####[facility] Vbcvzhzytg6566[address] [place], [place] [address]Dr. Flaco Lawrence Potassium [Moles/Vol] 3.6 mmol/L Normal 3.5-5.1 [facility] Comment on above: Performed By: #### B MP ####[facility] Vkdebdbpje2367[address] [place], [place] [address]Dr. Flaco Lawrence Sodium [Moles/Vol] 136 mmol/L Normal 136-145 [facility] Comment on above: Performed By: #### B MP ####[facility] Mbxpbzcpko2903[address] [place], [place] [address]Dr. Flaco Lawrence Urea nitrogen [Mass/Vol] 10.0 mg/dL Normal 7.0-18.0 [facility] Comment on above: Performed By: #### B MP ####[facility] Audfhrhssd3848[address] [place], [place] [address]Dr. Flaco Lawrence Urea nitrogen/Creatinine [Mass ratio] 6.3 mg/mg Normal [facility] Comment on above: Performed By: #### B MP ####[facility] Ikgbpjhqwp0541[address] [place], [place] [address]Dr. Flaco Lawrence CBC AUTO DIFFon 11-11-2022 BASO # 0.0 103/ul Normal 0.0-0.1 [facility] Comment on above: Performed By: #### C BC ####[facility] Ozzxxrgzzs024[address] [place], [place] [address]Dr. Flaco Lawrence Basophils/100 WBC (Bld) 0.4 % Normal 0.2-2.0 [facility] Comment on above: Performed By: #### C BC ####[facility] Waaowuhtau033[address] [place], [place] [address]Dr. Flaco Lawrence EO # 0.1 103/ul Normal 0.0-0.7 [facility] Comment on above: Performed By: #### C BC ####[facility] Aicturkjju0741[address] [place], [place] [address]Dr. Flaco Lawrence Eosinophils/100 WBC (Bld) 0.7 % Critically low 0.9-7.0 [facility] Comment on above: Performed By: #### C BC ####[facility] Hhbhpmutvv399[address] [place], [place] [address]Dr. Flaco Lawrence Erythrocyte distribution width (RBC) [Ratio] 16.3 % Critically high 11.0-15.0 [facility] Comment on above: Performed By: #### C BC ####[facility] Kgfapukoqb65[address] [place], [place] [address]Dr. Flaco Lawrence Hematocrit (Bld) [Volume fraction] 37.4 % Critically low 42.0-54.0 [facility] Comment on above: Performed By: #### C BC ####[facility] Knexsggucn9[address] [place], [place] [address]Dr. Flaco Lawrence Hemoglobin (Bld) [Mass/Vol] 12.5 g/dL Critically low 14.0-18.0 [facility] Comment on above: Performed By: #### C BC ####[facility] Behuihtdxb5[address] [place], [place] [address]Dr. Flaco Lawrence IG # 0.03 10e3/ul Normal 0.00-0.03 [facility] Comment on above: Performed By: #### C BC ####[facility] Hekyqzueqv8323 [place] [address]Dr. Flaco Lawrence IG % 0.3 % Normal 0.0-0.5 [facility] Comment on above: Performed By: #### C BC ####[facility] Kygdprrqom24[address] [place], [place] [address]Dr. Flaco Lawrence LYMPH # 2.0 103/ul Normal 1.2-3.8 [facility] Comment on above: Performed By: #### C BC ####[facility] Awcttgcmsb99[address] [place], [place] [address]Dr. Flaco Lawrence Lymphocytes/100 WBC (Bld) 18.8 % Critically low 20.5-60.0 [facility] Comment on above: Performed By: #### C BC ####[facility] Gueocuczlp[address] [place], [place] [address]Dr. Flaco Lawrence MANUAL DIFF REQ NO Normal [facility] Comment on above: Performed By: #### C BC ####[facility] Kdxgbkjysw69[address] [place], [place] [address]Dr. Flaco Branden MCH (RBC) [Entitic mass] 29.1 pg Normal 25.9-34.0 [facility] Comment on above: Performed By: #### C BC ####[facility] Sgvuspgawl[address] [place], [place] [address]Dr. Flaco Lawrence MCHC (RBC) [Mass/Vol] 33.4 g/dL Normal 29.9-35.2 [facility] Comment on above: Performed By: #### C BC ####[facility] Hglzkjhhuj7[address] [place], [place] [address]Dr. Flaco Lawrence MCV (RBC) [Entitic vol] 87.2 fL Normal 80.0-94.0 [facility] Comment on above: Performed By: #### C BC ####[facility] Uuygmpvoaj[address] [place], [place] [address]DrJeramie Lawrence MONO # 1.2 103/ul Critically high 0.3-0.[address] [facility] Comment on above: Performed By: #### C BC ####[facility] Yknzyxrysm59[address] [place], [place] [address]Dr. Flaco Lawrence Monocytes/100 WBC (Bld) 11.2 % Normal 1.7-12.0 [facility] Comment on above: Performed By: #### C BC ####[facility] Eqafpthlam75[address] [place] [id number]. Flaco Lawrence NEUT # 7.1 103/ul Critically high 1.4-6.[address] [facility] Comment on above: Performed By: #### C BC ####[facility] Wvjvxgjede77[address] [place] [address]Dr. Flaco Lawrence Neutrophils/100 WBC (Bld) 68.6 % Normal 43.0-75.0 [facility] Comment on above: Performed By: #### C BC ####[facility] Dqpsvadbmt3798 [place] [address]Dr. Flaco Lawrence Platelet mean volume (Bld) [Entitic vol] 9.5 fL Normal 9.5-13.5 [facility] Comment on above: Performed By: #### C BC ####[facility] Aeeitikcrh7[address] [place] [address]Dr. Flaco Lawrence PLT 351 103/ul Normal 150-450 [facility] Comment on above: Performed By: #### C BC ####[facility] Gsebclsnbw8853 [place] [address]Dr. Flaco Lawrence RBC 4.29 106/ul Critically low 4.70-6.[address] [facility] Comment on above: Performed By: #### C BC ####[facility] Dqntroptkf4183 [place] [address]Dr. Flaco Lawrence WBC 10.4 103/ul Normal 4.0-11.0 [facility] Comment on above: Performed By: #### C BC ####[facility] Mqzhzpmlkj[address] [place] [address] HEAD WO CONon 11-11-2022 CT HEAD WO CON Normal [facility]on 10-29 SARS-CoV-2 (COVID-19) RNA MARCO ANTONIO+probe Ql (Unsp spec) Not detected Normal NOT DETECTED [facility] Comment on above: Result Comment: When [...] for this test is supported by the [employer] Engineer of Health and Human Service's declaration that [...] be used). Performed By: #### C VDTBH ####[facility] Yavqvazaim4939 [place] [id number]. Flaco Lawrence LIPID PROFILEon 11-11-2022 CHOL-HDL RATIO NORM SEE BELOW Normal [facility] Comment on above: Result Comment: 3.3 - 4.4 LOW RISK 4.4 - 7.1 AVERAGE RISK 7.1 - 11.0 MODERATE RISK >11.0 HIGH RISK Performed By: #### L IPID, TSH ####[facility] Bqvzuwbdtq0309 [place] [phone]. Flaco Lawrence Cholesterol [Mass/Vol] 176 mg/dL Normal <=200 [facility] Comment on above: Performed By: #### L IPID, TSH ####[facility] Olqjgmdshc6460 [place] [phone]. Flaco Lawrence Cholesterol in HDL [Mass/Vol] 40 mg/dL Normal 40-60 [facility] Comment on above: Performed By: #### L IPID, TSH ####[facility] Ufuovfvsze6935 [place], [place] [address]Lv. Flaco Lawrence Cholesterol in LDL [Mass/Vol] 117.6 mg/dL Normal [facility] Comment on above: Performed By: #### L IPID, TSH ####[facility] Jyaftllmpe9577 [place] [phone]. Flaco Lawrence Cholesterol.total/Chol esterol in HDL [Mass ratio] 4.4 {ratio} Normal [facility] Comment on above: Performed By: #### L IPID, TSH ####[facility] Pfkusncdpa8637 [place] [address]Dr. Flaco Lawrence HDL NORMAL > or = 60 mg/dl - LO W CARDIOVASCULAR RISK <40 mg/dl - HIGH CARDIOVASCULAR RISK Normal [facility] Comment on above: Performed By: #### L IPID, TSH ####[facility] Eofgiihhed3992 [place] [address]Dr. Flaco Lawrence LDL CALC NORMAL SEE BELOW Normal [facility] Comment on above: Result Comment: <100 mg/dl OPTIMAL 100 - 129 mg/dl NEAR OR ABOVE OPTIMAL 130 - 159 mg/dl BORDERLINE HIGH 160 - 189 mg/dl HIGH >190 mg/dl VERY HIGH Performed By: #### L IPSERGIO, TSH ####[facility] Ungzgmpyqu0774 [place] [address]Dr. Flaco Lawrence Triglyceride [Mass/Vol] 92 mg/dL Normal <=150 [facility] Comment on above: Performed By: #### L CATALINA, TSH ####[facility] Fqojjydxdw1242 [place] [address]Dr. Flaco Lawrence VLDL CALC 18.4 mg/dL Normal [facility] Comment on above: Performed By: #### L IPSERGIO, TSH ####[facility] Bfkivuesdz8205 [place] [address]Dr. Flaco Lawrence PROF CHEM 8 (BAS METB)on Anion gap [Moles/Vol] 13.0 mmol/L Normal [facility] Comment on above: Performed By: #### B JOSHUA BLACKMANTROPN ####[facility] Xvgmkelgaw9912 [place] [address]Dr. Flaco Lawrence Calcium [Mass/Vol] 9.3 mg/dL Normal 8.5-10.1 [facility] Comment on above: Performed By: #### B JOSHUA BLACKMANTROPN ####[facility] Afyknsksdh2452 [place] [address]Dr. Flaco Lawrence Chloride [Moles/Vol] 101 mmol/L Normal 98-107 [facility] Comment on above: Performed By: #### B YEHUDA, HSTROPN ####[facility] Khzgyqpokc8122 [place] [address]Dr. Flaco Lawrence CO2 [Moles/Vol] 27.7 mmol/L Normal 21.0-32.0 [facility] Comment on above: Performed By: #### B YEHUDA, HSTROPN ####[facility] Trebatjeiq3454 [place] [address]Dr. Flaco Lawrence Creatinine [Mass/Vol] 1.75 mg/dL Critically high 0.70-1.30 [facility] Comment on above: Performed By: #### B YEHUDA, HSTROPN ####[facility] Gycltszerw5140 [place] [address]Dr. Flaco Lawrence EGFR-AF EMIRATI 47 mL/min/1.73m2 Critically low >=60 [facility] Comment on above: Performed By: #### B YEHUDA, HSTROPN ####[facility] Vocbihjttr06[address] [place], [place] [address]Dr. Flaco Lawrence EGFR-NON AF EMIRATI 39 mL/min/1.73m2 Critically low >=60 [facility] Comment on above: Performed By: #### B YEHUDA, HSTROPN ####[facility] Xjrfscqled4931 [place] [address]Dr. Flaco Lawrence Glucose [Mass/Vol] 97 mg/dL Normal 74-106 [facility] Comment on above: Performed By: #### B YEHUDA, HSTROPN ####[facility] Tzqdnzwbpu75[address] [place], [place] [address]Dr. Flaco Lawrence Potassium [Moles/Vol] 3.7 mmol/L Normal 3.5-5.1 [facility] Comment on above: Performed By: #### B YEHUDA, HSTROPN ####[facility] Ykergrfabo0769 [place] [address]Dr. Flaco Lawrence Sodium [Moles/Vol] 138 mmol/L Normal 136-145 [facility] Comment on above: Performed By: #### B YEHUDA HSTROPN ####[facility] Agmgsxknsg2707 [place] [address]Dr. Flaco Lawrence Urea nitrogen [Mass/Vol] 13.0 mg/dL Normal 7.0-18.0 [facility] Comment on above: Performed By: #### B YEHUDA HSTROPN ####[facility] Hglsbrodqn0514 [place] [address]Dr. Flaco Lawrence Urea nitrogen/Creatinine [Mass ratio] 7.4 mg/mg Normal [facility] Comment on above: Performed By: #### B JOSHUA BLACKMANTRVALENTINN ####[facility] Kqemgburpo3277 [place] [address]Dr. Flaco Lawrence PROTIMEon 11-11-2022 INR Coag (PPP) [Relative time] 1.05 {INR} Normal [facility] Comment on above: Performed By: #### P T, PTT ####[facility] Nexqfekckl[address] [place], [place] [address]Dr. Flaco Lawrence INR GUIDELINES SEE BELOW Normal [facility] Comment on above: Result Comment: RON RED INR: 2.0 - 3.0 CONDITIONS NOT LISTED BELOW 2.5 - 3.5 FOR PROSTHETIC HEART VALVE REPLACEMENT 2.5 - 3.5 RECURRENT THROMBOSIS Performed By: #### P T, PTT ####[facility] Odrbdglerh6[address] [place], [place] [address]Dr. Flaco Lawrence PT Coag (PPP) [Time] 11.1 s Normal 9.0-11.6 [facility] Comment on above: Performed By: #### P T, PTT ####[facility] Haqgebulic69[address] [place], [place] [address]Dr. Flaco Lawrence PTTon 11-11-2022 aPTT Coag (Bld) [Time] 34.3 s Normal 22.3-36.2 [facility] Comment on above: Performed By: #### P T, PTT ####[facility] Lxoguowmcb6786 [place], [place] [address]Ze. Flaco Lawrence TROPONIN, HIGH SENSITIVITYon 11-11-2022 HSTROP 4.7 pg/mL Normal 4.0-76.1 [facility] Comment on above: Result Comment: CUT- OFF POINTS HAVE BEEN ESTABLISHED BASED ON THE FOURTH UNIVERSAL DEFINITIONS OF MYOCARDIALINFARCTION. THE UPPER REFERENCE LIMIT (URL) OF TROPONIN, DEFINED THE 99TH PERCENTILE OFcTnI DISTRIBUTION IN A REFERENCE POPULATION, HAS BEEN CONFIRMED THE DECISION THRESHOLDFOR AL DIAGNOSIS. Performed By: #### B MP, HSTROPN ####[facility] Fhboanzexo0706 [place], [place] [address]Pf. Flaco Lawrence TSHon 11-11-2022 TSH 0.829 uIU/mL Normal 0.358-3.[address] [facility] Comment on above: Performed By: #### L IPID, TSH ####[facility] Vvxfpstkzs7958 [place] [phone]. Flaco Lawrence XR CHEST 1 Von 11-11-2022 XR CHEST 1 V Normal [facility] XR FOOT RT MIN 3 VIEWSon XR FOOT RT MIN 3 VIEWS Normal [facility] XR FOOT RT MIN 3 VIEWSon XR FOOT RT MIN 3 VIEWS Normal [facility] POINT OF CARE GLUCOSEon 08-29 Glucose [Mass/Vol] 87 mg/dL Normal 74-106 [facility] Comment on above: Performed By: #### P OCGLUC ####[facility] Azscdtijvm9162 [place] [phone]. Flaco Lawrence Glucose [Mass/Vol] 94 mg/dL Normal 74-106 [facility] Comment on above: Performed By: #### P OCGLUC ####[facility] Iogjhfobcp1265 [place] [phone]. Flaco Lawrence XR FOOT RT 2Von 09-25-2022 XR FOOT RT 2V Normal [facility] XR FOOT RT MIN 3 VIEWSon XR FOOT RT MIN 3 VIEWS Normal [facility] XR WRIST RT MIN 3 Von 2021 XR WRIST RT MIN 3 V Normal [facility] Covid-19 PCR ([facility])on 08-29 SARS-CoV-2 (COVID-19) RNA MARCO ANTONIO+probe Ql (Unsp spec) Not detected Normal NOT DETECTED [facility] Comment on above: Result Comment: This test is not yet approved or cleared by the [place] FDA. When there are no FDA-approved or cleared tests available, and other criteria are met, FDA can make tests available under an emergency access mechanism called an Emergency Use Authorization (EUA). The EUA for this test is supported by the [place] of Health and Human Service's (HHS's) declaration [...] with SARS-CoV-2. Performed By: #### C VDTBH ####[facility] Xbhcnjxprh26[address] [place], [place] [address]Dr. Flaco Lawrence PROF CHEM 8 (BAS METB)on Anion gap [Moles/Vol] 10.4 mmol/L Normal [facility] Comment on above: Performed By: #### B MP ####[facility] Mbhswszrmk[address] [place], [place] [address]DrJeramie Lawrence Calcium [Mass/Vol] 8.7 mg/dL Normal 8.5-10.1 [facility] Comment on above: Performed By: #### B MP ####[facility] Pqigjkgiet40[address] [place], [place] [address]DrJeramie Lawrence Chloride [Moles/Vol] 104 mmol/L Normal 98-107 [facility] Comment on above: Performed By: #### B MP ####[facility] Oglmihrdsh079[address] [place], [place] [address]DrJeramie Lawrence CO2 [Moles/Vol] 27.2 mmol/L Normal 21.0-32.0 [facility] Comment on above: Performed By: #### B MP ####[facility] Dojmlepxwj5720 [place] [address]Dr. Flaco Branden Creatinine [Mass/Vol] 2.02 mg/dL Critically high 0.70-1.30 [facility] Comment on above: Performed By: #### B MP ####[facility] Dzhfcgwhaw5907 [place] [address]Dr. Flaco Branden EGFR-AF EMIRATI 40 mL/min/1.73m2 Critically low >=60 [facility] Comment on above: Performed By: #### B MP ####[facility] Auvlrqmofg5827[address] [place], [place] [address]Dr. Flaco Lawrence EGFR-NON AF EMIRATI 33 mL/min/1.73m2 Critically low >=60 [facility] Comment on above: Performed By: #### B MP ####[facility] Wkwjhewblt05[address] [place], [place] [address]Dr. Flaco Lawrence Glucose [Mass/Vol] 91 mg/dL Normal 74-106 [facility] Comment on above: Performed By: #### B MP ####[facility] Oczuxcvoks9[address] [place], [place] [address]Dr. Flaco Lawrence Potassium [Moles/Vol] 3.6 mmol/L Normal 3.5-5.1 [facility] Comment on above: Performed By: #### B MP ####[facility] Xgysvknrgt2918[address] [place], [place] [address]Dr. Flaco Lawrence Sodium [Moles/Vol] 138 mmol/L Normal 136-145 [facility] Comment on above: Performed By: #### B MP ####[facility] Hfrxtniwlt0989[address] [place], [place] [address]Dr. Flaco Lawrence Urea nitrogen [Mass/Vol] 14.0 mg/dL Normal 7.0-18.0 [facility] Comment on above: Performed By: #### B MP ####[facility] Janwrhppps4818[address] [place], [place] [address]Dr. Flaco Lawrence Urea nitrogen/Creatinine [Mass ratio] 6.9 mg/mg Normal [facility] Comment on above: Performed By: #### B MP ####[facility] Lagybsymjw9883 [place] [address]Dr. Flaco Lawrence CBC AUTO DIFFon 08-15-2022 BASO # 0.1 103/ul Normal 0.0-0.1 [facility] Comment on above: Performed By: #### C BC ####[facility] Xttcjgcqwh3442[address] [place], [place] [address]Dr. Flaco Lawrence Basophils/100 WBC (Bld) 0.8 % Normal 0.2-2.0 [facility] Comment on above: Performed By: #### C BC ####[facility] Ppxfmcntdr1156[address] [place], [place] [address]Dr. Flaco Lawrence EO # 0.1 103/ul Normal 0.0-0.7 [facility] Comment on above: Performed By: #### C BC ####[facility] Eltlvvjvvi8814[address] [place], [place] [address]Dr. Flaco Lawrence Eosinophils/100 WBC (Bld) 1.4 % Normal 0.9-7.0 [facility] Comment on above: Performed By: #### C BC ####[facility] Czdlafolzv8[address] [place], [place] [address]Dr. Flaco Lawrence Erythrocyte distribution width (RBC) [Ratio] 13.6 % Normal 11.0-15.0 [facility] Comment on above: Performed By: #### C BC ####[facility] Pqlfizvwjn04[address] [place], [place] [address]Dr. Flaco Lawrence Hematocrit (Bld) [Volume fraction] 46.2 % Normal 42.0-54.0 [facility] Comment on above: Performed By: #### C BC ####[facility] Mpkelveqdv2349[address] [place], [place] [address]Dr. Flaco Lawrence Hemoglobin (Bld) [Mass/Vol] 15.2 g/dL Normal 14.0-18.0 [facility] Comment on above: Performed By: #### C BC ####[facility] Uqnkqabllc1391 [place] [phone]. Flaco Lawrence IG # 0.02 10e3/ul Normal 0.00-0.03 [facility] Comment on above: Performed By: #### C BC ####[facility] Remtpcltre6037 [place] [address]Dr. Flaco Lawrence IG % 0.2 % Normal 0.0-0.5 [facility] Comment on above: Performed By: #### C BC ####[facility] Yrthhohysp7507 [place] [address]Dr. Flaco Branden LYMPH # 1.8 103/ul Normal 1.2-3.8 [facility] Comment on above: Performed By: #### C BC ####[facility] Frwawvzqep8916 [place] [address]Dr. Purviedith Lawrence Lymphocytes/100 WBC (Bld) 19.2 % Critically low 20.5-60.0 [facility] Comment on above: Performed By: #### C BC ####[facility] Ywknabhqeq3516 [place] [address]Dr. Purviedith Lawrence MANUAL DIFF REQ NO Normal [facility] Comment on above: Performed By: #### C BC ####[facility] Icfzndmvvv9387 [place] [address]Dr. Flaco Lawrence MCH (RBC) [Entitic mass] 28.6 pg Normal 25.9-34.0 [facility] Comment on above: Performed By: #### C BC ####[facility] Jclxykvbtu045[address] [place], [place] [address]Dr. Flaco Lawrence MCHC (RBC) [Mass/Vol] 32.9 g/dL Normal 29.9-35.2 [facility] Comment on above: Performed By: #### C BC ####[facility] Lecaoleprk5067[address] [place], [place] [address]Dr. Flaco Lawrence MCV (RBC) [Entitic vol] 86.8 fL Normal 80.0-94.0 [facility] Comment on above: Performed By: #### C BC ####[facility] Aatlqbeqac5678 [place] [phone]. Flaco Lawrence MONO # 0.8 103/ul Normal 0.3-0.8 [facility] Comment on above: Performed By: #### C BC ####[facility] Wrksemvwyt5788 [place] [phone]. Flaco Lawrence Monocytes/100 WBC (Bld) 8.7 % Normal 1.7-12.0 [facility] Comment on above: Performed By: #### C BC ####[facility] Vechmjsgzp[address] [place], [place] [address]Dr. Flaco Lawrence NEUT # 6.5 103/ul Normal 1.4-6.5 [facility] Comment on above: Performed By: #### C BC ####[facility] Rvkbcavkfn5023[address] [place], [place] [address]Dr. Flaco Lawrence Neutrophils/100 WBC (Bld) 69.7 % Normal 43.0-75.0 [facility] Comment on above: Performed By: #### C BC ####[facility] Gfkmwvvcbg5664[address] [place], [place] [address]Dr. Flaco Lawrence Platelet mean volume (Bld) [Entitic vol] 9.8 fL Normal 9.5-13.5 [facility] Comment on above: Performed By: #### C BC ####[facility] Wqxkmyykey2701 [place] [phone]. Flaco Lawrence PLT 503 103/ul Critically high 150-[address] [facility] Comment on above: Performed By: #### C BC ####[facility] Tvphnvsxaq994[address] [place], [place] [address]Dr. Flaco Lawrence RBC 5.32 106/ul Normal 4.70-6.10 [facility] Comment on above: Performed By: #### C BC ####[facility] Xldvjprxtl22[address] [place], [place] [address]Dr. Flaco Lawrence WBC 9.3 103/ul Normal 4.0-11.0 [facility] Comment on above: Performed By: #### C BC ####[facility] Vowpciniqh167[address] [place], [place] [address]DrJeramie Lawrence PROTIMEon 08-15-2022 INR Coag (PPP) [Relative time] 1.73 {INR} Normal [facility] Comment on above: Performed By: #### P TT, PT ####[facility] Monegyjxeg04[address] [place], [place] [address]DrJeramie Lawrence INR GUIDELINES SEE BELOW Normal [facility] Comment on above: Result Comment: RON RED INR: 2.0 - 3.0 CONDITIONS NOT LISTED BELOW 2.5 - 3.5 FOR PROSTHETIC HEART VALVE REPLACEMENT 2.5 - 3.5 RECURRENT THROMBOSIS Performed By: #### P TT, PT ####[facility] Tahrumwyep3724[address] [place], [place] [address]DrJeramie Lawrence PT Coag (PPP) [Time] 18.0 s Critically high 9.0-11.6 [facility] Comment on above: Performed By: #### P TT, PT ####[facility] Xhxdyrwllp[address] [place], [place] [address]DrJeramie Lawrence PTTon 08-15-2022 aPTT Coag (Bld) [Time] 34.8 s Normal 22.3-36.2 [facility] Comment on above: Performed By: #### P TT, PT ####[facility] Ryrfrdbjnl9497[address] [place], [place] [address]DrJeramie Lawrence CBC AUTO DIFFon 08-02-2022 BASO # 0.0 103/ul Normal 0.0-0.1 [facility] Comment on above: Performed By: #### C BC ####[facility] Wtdwscguys8914[address] [place], [place] [address]DrJeramie Lawrence Basophils/100 WBC (Bld) 0.2 % Normal 0.2-2.0 [facility] Comment on above: Performed By: #### C BC ####[facility] Nvqllgplgp0000[address] [place], [place] [address]DrJeramie Lawrence EO # 0.1 103/ul Normal 0.0-0.7 [facility] Comment on above: Performed By: #### C BC ####[facility] Spdljnustb2961[address] [place], [place] [address]Dr. Flaco Lawrence Eosinophils/100 WBC (Bld) 1.2 % Normal 0.9-7.0 [facility] Comment on above: Performed By: #### C BC ####[facility] Hgvbijsdji0426 [place] [address]Dr. Flaco Lawrence Erythrocyte distribution width (RBC) [Ratio] 13.2 % Normal 11.0-15.0 [facility] Comment on above: Performed By: #### C BC ####[facility] Lhwfdnmpdr3331 [place] [address]Dr. Flaco Lawrence Hematocrit (Bld) [Volume fraction] 42.6 % Normal 42.0-54.0 [facility] Comment on above: Performed By: #### C BC ####[facility] Dvixppcovi9827 [place] [address]Dr. Flaco Lawrence Hemoglobin (Bld) [Mass/Vol] 14.0 g/dL Normal 14.0-18.0 [facility] Comment on above: Performed By: #### C BC ####[facility] Unhpozblkx413[address] [place], [place] [address]Dr. Flaco Lawrence IG # 0.05 10e3/ul Critically high 0.00-0.03 [facility] Comment on above: Performed By: #### C BC ####[facility] Ysudqtpaji3[address] [place], [place] [address]Dr. Flaco Lawrence IG % 0.5 % Normal 0.0-0.5 [facility] Comment on above: Performed By: #### C BC ####[facility] Omiowggbmc204[address] [place], [place] [address]Dr. Flaco Lawrence LYMPH # 1.5 103/ul Normal 1.2-3.8 [facility] Comment on above: Performed By: #### C BC ####[facility] Ajppauvroy8533[address] [place], [place] [address]Dr. Flaco Lawrence Lymphocytes/100 WBC (Bld) 13.5 % Critically low 20.5-60.0 [facility] Comment on above: Performed By: #### C BC ####[facility] Wbvocetorp3570 [place] [address]Dr. Flaco Branden MANUAL DIFF REQ NO Normal [facility] Comment on above: Performed By: #### C BC ####[facility] Cobtwngzwe2825 [place] [address]Dr. Flaco Lawrence MCH (RBC) [Entitic mass] 29.0 pg Normal 25.9-34.0 [facility] Comment on above: Performed By: #### C BC ####[facility] Juzheqcyzc114[address] [place], [place] [address]Dr. Flaco Branden MCHC (RBC) [Mass/Vol] 32.9 g/dL Normal 29.9-35.2 [facility] Comment on above: Performed By: #### C BC ####[facility] Sjopcfieli6972[address] [place], [place] [address]Dr. Falco Branden MCV (RBC) [Entitic vol] 88.2 fL Normal 80.0-94.0 [facility] Comment on above: Performed By: #### C BC ####[facility] Ywnrnlidmb4586[address] [place], [place] [address]Dr. Flaco Branden MONO # 1.0 103/ul Critically high 0.3-0.[address] [facility] Comment on above: Performed By: #### C BC ####[facility] Pzoywfzbmp1367[address] [place], [place] [address]Dr. Purviedith Lawrence Monocytes/100 WBC (Bld) 8.8 % Normal 1.7-12.0 [facility] Comment on above: Performed By: #### C BC ####[facility] Kbjdcqvjft8371 [place] [address]Dr. Purviedith Branden NEUT # 8.4 103/ul Critically high 1.4-6.[address] [facility] Comment on above: Performed By: #### C BC ####[facility] Gsinbexvra49[address] [place], [place] [address]Dr. Flaco Lawrence Neutrophils/100 WBC (Bld) 75.8 % Critically high 43.0-75.0 [facility] Comment on above: Performed By: #### C BC ####[facility] Krbkvfrlun1036 [place] [address]Dr. Flaco Lawrence Platelet mean volume (Bld) [Entitic vol] 10.2 fL Normal 9.5-13.5 [facility] Comment on above: Performed By: #### C BC ####[facility] Vyqsyddfea8827 [place] [address]Dr. Flaco Lawrence PLT 329 103/ul Normal 150-450 [facility] Comment on above: Performed By: #### C BC ####[facility] Hsjynotshu3657 [place] [address]Dr. Flaco Lawrence RBC 4.83 106/ul Normal 4.70-6.10 [facility] Comment on above: Performed By: #### C BC ####[facility] Nzhzzbzljy28[address] [place], [place] [address]Dr. Flaco Lawrence WBC 11.0 103/ul Normal 4.0-11.0 [facility] Comment on above: Performed By: #### C BC ####[facility] Zbqhzfihnt16[address] [place], [place] [address]Dr. Flaco Lawrence PROF 14(COMP METB)on 022 Albumin [Mass/Vol] 2.6 g/dL Critically low 3.4-5.0 [facility] Comment on above: Performed By: #### C MP ####[facility] Wucnfmvoym44[address] [place], [place] [address]Dr. Flaco Lawrence Albumin/Globulin [Mass ratio] 0.6 {ratio} Normal [facility] Comment on above: Performed By: #### C MP ####[facility] Fslajzvjjs7403 [place] [address]Dr. Flaco Lawrence ALP [Catalytic activity/Vol] 58 U/L Normal 46-116 [facility] Comment on above: Performed By: #### C MP ####[facility] Argatxifox2[address] [place], [place] [address]Dr. Flaco Lawrence ALT [Catalytic activity/Vol] 23 U/L Normal 16-63 [facility] Comment on above: Performed By: #### C MP ####[facility] [address]fjtjk[address] [place], [place] [address]Dr. Flaco Lawrence Anion gap [Moles/Vol] 14.9 mmol/L Normal [facility] Comment on above: Performed By: #### C MP ####[facility] Hdsizwwgjt8258 [place] [address]Dr. Flaco Lawrence AST [Catalytic activity/Vol] 23 U/L Normal 15-37 [facility] Comment on above: Performed By: #### C MP ####[facility] [address]ybklzkd[address] [place], [place] [address]Dr. Flaco Lawrence Bilirubin [Mass/Vol] 0.6 mg/dL Normal 0.2-1.0 [facility] Comment on above: Performed By: #### C MP ####[facility] Ujdixiybop1[address] [place], [place] [address]Dr. Flaco Lawrence Calcium [Mass/Vol] 8.8 mg/dL Normal 8.5-10.1 [facility] Comment on above: Performed By: #### C MP ####[facility] Fmdoroyvrh74[address] [place], [place] [address]Dr. Flaco Branden Chloride [Moles/Vol] 104 mmol/L Normal 98-107 [facility] Comment on above: Performed By: #### C MP ####[facility] Wdzxjicaer3443[address] [place], [place] [address]Dr. Flaco Lawrence CO2 [Moles/Vol] 21.3 mmol/L Normal 21.0-32.0 [facility] Comment on above: Performed By: #### C MP ####[facility] Xtaanvqhjy[address] [place], [place] [address]Dr. Flaco Branden Creatinine [Mass/Vol] 2.08 mg/dL Critically high 0.70-1.30 [facility] Comment on above: Performed By: #### C MP ####[facility] Ztnbtjhdbt78[address] [place], [place] [address]Dr. Flaco Branden EGFR-AF EMIRATI 38 mL/min/1.73m2 Critically low >=60 [facility] Comment on above: Performed By: #### C MP ####[facility] Cpsgwvaxld22[address] [place], [place] [address]Dr. Flaco Branden EGFR-NON AF EMIRATI 32 mL/min/1.73m2 Critically low >=60 [facility] Comment on above: Performed By: #### C MP ####[facility] Zotzjtxiaf5352 [place] [address]Dr. Flaco Branden Globulin (S) [Mass/Vol] 4.1 g/dL Normal [facility] Comment on above: Performed By: #### C MP ####[facility] Mzwliczqvi3676 [place] [address]Dr. Purviedith Branden Glucose [Mass/Vol] 87 mg/dL Normal 74-106 [facility] Comment on above: Performed By: #### C MP ####[facility] Lexpwuqwyb4614 [place] [address]Dr. Flaco Lawrence Potassium [Moles/Vol] 4.2 mmol/L Normal 3.5-5.1 [facility] Comment on above: Performed By: #### C MP ####[facility] Vkwhhsjakm9346 [place] [address]Dr. Purviedith Lawrence Protein [Mass/Vol] 6.7 g/dL Normal 6.4-8.2 [facility] Comment on above: Performed By: #### C MP ####[facility] Gogfwotoyf97[address] [place], [place] [address]Dr. Flaco Lawrence Sodium [Moles/Vol] 136 mmol/L Normal 136-145 [facility] Comment on above: Performed By: #### C MP ####[facility] Jhdazxdare3635 [place] [address]Dr. Flaco Lawrence Urea nitrogen [Mass/Vol] 32.0 mg/dL Critically high 7.0-18.0 [facility] Comment on above: Performed By: #### C MP ####[facility] Lttzggbopx6568[address] [place], [place] [address]Dr. Flaco Lawrence Urea nitrogen/Creatinine [Mass ratio] 15.4 mg/mg Normal [facility] Comment on above: Performed By: #### C MP ####[facility] Wccczmtfax119[address] [place], [place] [address]Dr. Flaco Lawrence CBC AUTO DIFFon 08-01-2022 BASO # 0.0 103/ul Normal 0.0-0.1 [facility] Comment on above: Performed By: #### C BC ####[facility] Nmuczxdeic6223 [place] [id number]. Flaco Lawrence Basophils/100 WBC (Bld) 0.1 % Critically low 0.2-2.0 [facility] Comment on above: Performed By: #### C BC ####[facility] Bcvnseoomy9657 [place] [address]Dr. Flaco Lawrence EO # 0.0 103/ul Normal 0.0-0.7 [facility] Comment on above: Performed By: #### C BC ####[facility] Gcspngporq5036 [place] [address]Dr. Flaco Lawrence Eosinophils/100 WBC (Bld) 0.3 % Critically low 0.9-7.0 [facility] Comment on above: Performed By: #### C BC ####[facility] Dobqkravmg6103 [place] [address]Dr. Flaco Lawrence Erythrocyte distribution width (RBC) [Ratio] 13.5 % Normal 11.0-15.0 [facility] Comment on above: Performed By: #### C BC ####[facility] Eqojvhbqpt3405 [place] [address]Dr. Flaco Lawrence Hematocrit (Bld) [Volume fraction] 42.0 % Normal 42.0-54.0 [facility] Comment on above: Performed By: #### C BC ####[facility] Qiqqiedtln1585 [place] [address]Dr. Flaco Lawrence Hemoglobin (Bld) [Mass/Vol] 13.6 g/dL Critically low 14.0-18.0 [facility] Comment on above: Performed By: #### C BC ####[facility] Cxkzgtlnpz1079 [place] [phone]. Flaco Branden IG # 0.04 10e3/ul Critically high 0.00-0.[address] [facility] Comment on above: Performed By: #### C BC ####[facility] Pbmjslsqyy8351 [place] [phone]. Flaco Lawrence IG % 0.4 % Normal 0.0-0.5 [facility] Comment on above: Performed By: #### C BC ####[facility] Nauyqplhxp1467 [place] [phone]. Flaco Lawrence LYMPH # 1.0 103/ul Critically low 1.2-3.8 [facility] Comment on above: Performed By: #### C BC ####[facility] Cehcxfqinb8292 [place] [phone]. Flaco Lawrence Lymphocytes/100 WBC (Bld) 9.3 % Critically low 20.5-60.0 [facility] Comment on above: Performed By: #### C BC ####[facility] Trzemkdaio5455 [place] [phone]. Flaco Lawrence MANUAL DIFF REQ NO Normal [facility] Comment on above: Performed By: #### C BC ####[facility] Owodqrcplg7139 [place] [phone]. Flaco Lawrence MCH (RBC) [Entitic mass] 28.7 pg Normal 25.9-34.0 [facility] Comment on above: Performed By: #### C BC ####[facility] Igharjmaed1173 [place] [phone]. Flaco Lawrence MCHC (RBC) [Mass/Vol] 32.4 g/dL Normal 29.9-35.2 [facility] Comment on above: Performed By: #### C BC ####[facility] Jcnyakldpw7920 [place] [phone]. Flaco Lawrence MCV (RBC) [Entitic vol] 88.6 fL Normal 80.0-94.0 [facility] Comment on above: Performed By: #### C BC ####[facility] Tqfhvnsgqj7761 [place] [phone]. Flaco Lawrence MONO # 1.2 103/ul Critically high 0.3-0.[address] [facility] Comment on above: Performed By: #### C BC ####[facility] Ebgsaqnjvp7390 [place] [phone]. Flaco Lawrence Monocytes/100 WBC (Bld) 11.0 % Normal 1.7-12.0 [facility] Comment on above: Performed By: #### C BC ####[facility] Bcgdittqmq1230 [place] [phone]. Flaco Lawrence NEUT # 8.4 103/ul Critically high 1.4-6.5 [facility] Comment on above: Performed By: #### C BC ####[facility] Kszqgwpuen4804 [place] [phone]. Flaco Lawrence Neutrophils/100 WBC (Bld) 78.9 % Critically high 43.0-75.0 [facility] Comment on above: Performed By: #### C BC ####[facility] Ldakgmlnaf2786 [place] [address]Dr. Flaco Lawrence Platelet mean volume (Bld) [Entitic vol] 10.0 fL Normal 9.5-13.5 [facility] Comment on above: Performed By: #### C BC ####[facility] Dmvhbrmkqh8682 [place] [phone]. Flaco Lawrence PLT 308 103/ul Normal 150-450 [facility] Comment on above: Performed By: #### C BC ####[facility] Mxudwtkslz4005 [place] [phone]. Flaco Lawrence RBC 4.74 106/ul Normal 4.70-6.10 [facility] Comment on above: Performed By: #### C BC ####[facility] Igrdbigffx8606 [place] [phone]. Flaco Lawrence WBC 10.7 103/ul Normal 4.0-11.0 [facility] Comment on above: Performed By: #### C BC ####[facility] Xzjqojmmlj1652 [place] [address]Dr. Flaco Lawrence PROF 14(COMP METB)on 022 Albumin [Mass/Vol] 2.6 g/dL Critically low 3.4-5.0 [facility] Comment on above: Performed By: #### C MP ####[facility] Poxshzgyky4063 [place] [address]Dr. Flaco Branden Albumin/Globulin [Mass ratio] 0.6 {ratio} Normal [facility] Comment on above: Performed By: #### C MP ####[facility] Gftvmunzxz1353 [place] [phone]. Flaco Branden ALP [Catalytic activity/Vol] 58 U/L Normal 46-116 [facility] Comment on above: Performed By: #### C MP ####[facility] Mciafhcvga1003 [place] [address]Dr. Flaco Branden ALT [Catalytic activity/Vol] 24 U/L Normal 16-63 [facility] Comment on above: Performed By: #### C MP ####[facility] Rtyijofuzj7317[address] [place], [place] [address]Dr. Flaco Lawrence Anion gap [Moles/Vol] 14.8 mmol/L Normal [facility] Comment on above: Performed By: #### C MP ####[facility] Vxifeuprlj1344[address] [place], [place] [address]Dr. Flaco Branden AST [Catalytic activity/Vol] 33 U/L Normal 15-37 [facility] Comment on above: Performed By: #### C MP ####[facility] Oexsjsbtwo7227[address] [place], [place] [address]Dr. Flaco Lawrence Bilirubin [Mass/Vol] 1.0 mg/dL Normal 0.2-1.0 [facility] Comment on above: Performed By: #### C MP ####[facility] Nyzpbcrjei1819[address] [place], [place] [address]Dr. Flaco Lawrence Calcium [Mass/Vol] 8.7 mg/dL Normal 8.5-10.1 [facility] Comment on above: Performed By: #### C MP ####[facility] Ztbsojdixl3483[address] [place], [place] [address]Dr. Flaco Lawrence Chloride [Moles/Vol] 104 mmol/L Normal 98-107 [facility] Comment on above: Performed By: #### C MP ####[facility] Pfxjqcyxxh3686 [place] [phone]. Flaco Lawrence CO2 [Moles/Vol] 21.2 mmol/L Normal 21.0-32.0 [facility] Comment on above: Performed By: #### C MP ####[facility] Lllllxlrvj1984 [place] [phone]. Flaco Lawrence Creatinine [Mass/Vol] 1.90 mg/dL Critically high 0.70-1.30 [facility] Comment on above: Performed By: #### C MP ####[facility] Uvptpeszgb7914 [place] [phone]. Flaco Lawrence EGFR-AF EMIRATI 43 mL/min/1.73m2 Critically low >=60 [facility] Comment on above: Performed By: #### C MP ####[facility] Gcitsckdko2277 [place] [address]Dr. Flaco Lawrence EGFR-NON AF EMIRATI 35 mL/min/1.73m2 Critically low >=60 [facility] Comment on above: Performed By: #### C MP ####[facility] Zyzbosxods8041 [place] [phone]. Flaco Lawrence Globulin (S) [Mass/Vol] 4.0 g/dL Normal [facility] Comment on above: Performed By: #### C MP ####[facility] Kcepyqsyqt9326 [place] [address]Dr. Flaco Lawrence Glucose [Mass/Vol] 82 mg/dL Normal 74-106 [facility] Comment on above: Performed By: #### C MP ####[facility] Csftvsdkgk7251 [place] [phone]. Flaco Lawrence Potassium [Moles/Vol] 4.0 mmol/L Normal 3.5-5.1 [facility] Comment on above: Performed By: #### C MP ####[facility] Upnqqoolcj2072 [place] [address]Dr. Flaco Lawrence Protein [Mass/Vol] 6.6 g/dL Normal 6.4-8.2 [facility] Comment on above: Performed By: #### C MP ####[facility] Nhladhioyg8566 [place] [phone]. Flaco Lawrence Sodium [Moles/Vol] 136 mmol/L Normal 136-145 [facility] Comment on above: Performed By: #### C MP ####[facility] Ghhlaqcpxf7033[address] [place], [place] [address]Dr. Flaco Lawrence Urea nitrogen [Mass/Vol] 29.0 mg/dL Critically high 7.0-18.0 [facility] Comment on above: Performed By: #### C MP ####[facility] Methbdjcrt095[address] [place], [place] [address]Dr. Flaco Lawrence Urea nitrogen/Creatinine [Mass ratio] 15.3 mg/mg Normal [facility] Comment on above: Performed By: #### C MP ####[facility] Ivzgahtatm4149[address] [place], [place] [address]Dr. Flaco Lawrence CBC AUTO DIFFon 07-31-2022 BASO # 0.0 103/ul Normal 0.0-0.1 [facility] Comment on above: Performed By: #### C BC ####[facility] Wbxygulyqa0142[address] [place], [place] [address]Dr. Flaco Lawrence Basophils/100 WBC (Bld) 0.2 % Normal 0.2-2.0 [facility] Comment on above: Performed By: #### C BC ####[facility] Assdmappkw8506[address] [place], [place] [address]Dr. Flaco Lawrence EO # 0.0 103/ul Normal 0.0-0.7 [facility] Comment on above: Performed By: #### C BC ####[facility] Thunvtwsfn5078[address] [place], [place] [address]Dr. Flaco Lawrence Eosinophils/100 WBC (Bld) 0.1 % Critically low 0.9-7.0 [facility] Comment on above: Performed By: #### C BC ####[facility] Adomwrzott1595[address] [place], [place] [address]Dr. Flaco Lawrence Erythrocyte distribution width (RBC) [Ratio] 13.7 % Normal 11.0-15.0 [facility] Comment on above: Performed By: #### C BC ####[facility] Stvlpjgadl3757 [place] [address]Dr. Flaco Lawrence Hematocrit (Bld) [Volume fraction] 40.1 % Critically low 42.0-54.0 [facility] Comment on above: Performed By: #### C BC ####[facility] Wjolqbutsx7551 [place] [address]Dr. Flaco Lawrence Hemoglobin (Bld) [Mass/Vol] 13.1 g/dL Critically low 14.0-18.0 [facility] Comment on above: Performed By: #### C BC ####[facility] Llvruytcxz766[address] [place], [place] [address]Dr. Flaco Lawrence IG # 0.03 10e3/ul Normal 0.00-0.03 [facility] Comment on above: Performed By: #### C BC ####[facility] Utvuvrnusr7763[address] [place], [place] [address]Dr. Flaco Lawrence IG % 0.3 % Normal 0.0-0.5 [facility] Comment on above: Performed By: #### C BC ####[facility] Kgqlpilvvp837[address] [place], [place] [address]Dr. Purviedith Lawrence LYMPH # 1.7 103/ul Normal 1.2-3.8 [facility] Comment on above: Performed By: #### C BC ####[facility] Gavnbklxba599[address] [place], [place] [address]Dr. Flaco Lawrence Lymphocytes/100 WBC (Bld) 16.2 % Critically low 20.5-60.0 [facility] Comment on above: Performed By: #### C BC ####[facility] Ahiiclnzbr8074[address] [place], [place] [address]Dr. Flaco Lawrence MANUAL DIFF REQ NO Normal [facility] Comment on above: Performed By: #### C BC ####[facility] Elrwropiye2728[address] [place], [place] [address]Dr. Flaco Lawrence MCH (RBC) [Entitic mass] 29.2 pg Normal 25.9-34.0 [facility] Comment on above: Performed By: #### C BC ####[facility] Askvlwthow7298 [place] [phone]. Flaco Lawrence MCHC (RBC) [Mass/Vol] 32.7 g/dL Normal 29.9-35.2 [facility] Comment on above: Performed By: #### C BC ####[facility] Wmiruqqzxa6004 [place] [phone]. Purviedith Lawrence MCV (RBC) [Entitic vol] 89.3 fL Normal 80.0-94.0 [facility] Comment on above: Performed By: #### C BC ####[facility] Gmztwmwtyt2793 [place] [phone]. Flaco Lawrence MONO # 1.2 103/ul Critically high 0.3-0.[address] [facility] Comment on above: Performed By: #### C BC ####[facility] Gwkyujcoqg0949[address] [place], [place] [address]Dr. Flaco Lawrence Monocytes/100 WBC (Bld) 11.1 % Normal 1.7-12.0 [facility] Comment on above: Performed By: #### C BC ####[facility] Juerbqzirs23[address] [place], [place] [address]Dr. Flaco Lawrence NEUT # 7.7 103/ul Critically high 1.4-6.[address] [facility] Comment on above: Performed By: #### C BC ####[facility] Xykkstisje6357[address] [place], [place] [address]Dr. Flaco Lawrence Neutrophils/100 WBC (Bld) 72.1 % Normal 43.0-75.0 [facility] Comment on above: Performed By: #### C BC ####[facility] Iaplckbqcq30001[address] [place], [place] [address]Dr. Flaco Lawrence Platelet mean volume (Bld) [Entitic vol] 9.9 fL Normal 9.5-13.5 [facility] Comment on above: Performed By: #### C BC ####[facility] Upevkwbeer044[address] [place], [place] [address]Dr. Flaco Lawrence PLT 263 103/ul Normal 150-450 [facility] Comment on above: Performed By: #### C BC ####[facility] Fodwsqkzyn0456 [place] [phone]. Purviedith Branden RBC 4.49 106/ul Critically low 4.70-6.10 [facility] Comment on above: Performed By: #### C BC ####[facility] Vovdhptbvd6687 [place] [phone]. Flaco Lawrence WBC 10.7 103/ul Normal 4.0-11.0 [facility] Comment on above: Performed By: #### C BC ####[facility] Xpaeebdyep6391 [place] [address]Dr. Flaco Lawrence PROF 14(COMP METB)on 022 Albumin [Mass/Vol] 2.8 g/dL Critically low 3.4-5.0 [facility] Comment on above: Performed By: #### C MP ####[facility] Uwicgeqohn4201[address] [place], [place] [address]Dr. Flaco Lawrence Albumin/Globulin [Mass ratio] 0.8 {ratio} Normal [facility] Comment on above: Performed By: #### C MP ####[facility] Gstgvoakzm1606[address] [place], [place] [address]Dr. Flaco Lawrence ALP [Catalytic activity/Vol] 59 U/L Normal 46-116 [facility] Comment on above: Performed By: #### C MP ####[facility] Hzvaxpdgdi5427 [place] [address]Dr. Flaco Lawrence ALT [Catalytic activity/Vol] 30 U/L Normal 16-63 [facility] Comment on above: Performed By: #### C MP ####[facility] Smbhdhsiwn8262 [place] [address]Dr. Flaco Lawrence Anion gap [Moles/Vol] 14.8 mmol/L Normal [facility] Comment on above: Performed By: #### C MP ####[facility] Lagxvdajpf5119 [place] [address]Dr. Flaco Lawrence AST [Catalytic activity/Vol] 56 U/L Critically high 15-37 [facility] Comment on above: Performed By: #### C MP ####[facility] Fohsapsuxi7157 [place] [phone]. Flaco Lawrence Bilirubin [Mass/Vol] 0.8 mg/dL Normal 0.2-1.0 [facility] Comment on above: Performed By: #### C MP ####[facility] Uxagjdzpml4901 [place] [address]Dr. Flaco Lawrence Calcium [Mass/Vol] 9.0 mg/dL Normal 8.5-10.1 [facility] Comment on above: Performed By: #### C MP ####[facility] Riqcnpsckn0200[address] [place], [place] [address]Dr. Flaco Lawrence Chloride [Moles/Vol] 106 mmol/L Normal 98-107 [facility] Comment on above: Performed By: #### C MP ####[facility] Xrozotflqt3706[address] [place], [place] [address]Dr. Flaco Lawrence CO2 [Moles/Vol] 24.7 mmol/L Normal 21.0-32.0 [facility] Comment on above: Performed By: #### C MP ####[facility] Yzrmkfcaav0183[address] [place], [place] [address]Dr. Flaco Lawrence Creatinine [Mass/Vol] 2.12 mg/dL Critically high 0.70-1.30 [facility] Comment on above: Performed By: #### C MP ####[facility] Gowwshpdqe9[address] [place], [place] [address]Dr. Flaco Lawrence EGFR-AF EMIRATI 38 mL/min/1.73m2 Critically low >=60 [facility] Comment on above: Performed By: #### C MP ####[facility] Sjifkyqcec5279[address] [place], [place] [address]Dr. Flaco Lawrence EGFR-NON AF EMIRATI 31 mL/min/1.73m2 Critically low >=60 [facility] Comment on above: Performed By: #### C MP ####[facility] Pgitywljrt8489[address] [place], [place] [address]Dr. Flaco Lawrence Globulin (S) [Mass/Vol] 3.7 g/dL Normal [facility] Comment on above: Performed By: #### C MP ####[facility] Snzkzkcjke8076 [place] [address]Dr. Flaco Lawrence Glucose [Mass/Vol] 79 mg/dL Normal 74-106 [facility] Comment on above: Performed By: #### C MP ####[facility] Qvxlwwqgfs4488 [place] [address]Dr. Flaco Lawrence Potassium [Moles/Vol] 3.5 mmol/L Normal 3.5-5.1 [facility] Comment on above: Performed By: #### C MP ####[facility] Fbbpctcgka4223 [place] [address]Dr. Flaco Lawrence Protein [Mass/Vol] 6.5 g/dL Normal 6.4-8.2 [facility] Comment on above: Performed By: #### C MP ####[facility] Ogzqlvgkql838[address] [place], [place] [address]Dr. Flaco Lawrence Sodium [Moles/Vol] 142 mmol/L Normal 136-145 [facility] Comment on above: Performed By: #### C MP ####[facility] Vpncqhchvt1527[address] [place], [place] [address]Dr. Flaco Lawrence Urea nitrogen [Mass/Vol] 32.0 mg/dL Critically high 7.0-18.0 [facility] Comment on above: Performed By: #### C MP ####[facility] Qhunnxeetc9519[address] [place], [place] [address]Dr. Flaco Lawrence Urea nitrogen/Creatinine [Mass ratio] 15.1 mg/mg Normal [facility] Comment on above: Performed By: #### C MP ####[facility] Ynquarwbqz428[address] [place], [place] [address]Dr. Flaco Lawrence T4on 07-31-2022 T4 [Mass/Vol] 7.10 ug/dL Normal 4.50-12.10 [facility] Comment on above: Performed By: #### T SH, T4 ####[facility] Sujtsgynuf840[address] [place], [place] [address]Dr. Flaco Lawrence TSHon 07-31-2022 TSH 0.871 uIU/mL Normal 0.358-3.[address] [facility] Comment on above: Performed By: #### T SH, T4 ####[facility] Hxfngwxliw0656[address] [place], [place] [address]Dr. Flaco Lawrence VIT B12 AND FOLATEon 022 Cobalamin (Vitamin B12) [Mass/Vol] 130.0 pg/mL Critically low 193.0-986.0 [facility] Comment on above: Performed By: #### B 12FOL ####[facility] Hhlpthnoff638[address] [place], [place] [address]Dr. Flaco Lawrence FOLATE 6.20 ng/mL Critically low 8.60-58.90 [facility] Comment on above: Performed By: #### B 12FOL ####[facility] Krnpybdryy3153[address] [place], [place] [address]Dr. Flaco Lawrence AMMONIAon 07-30-2022 Ammonia (P) [Mass/Vol] ug/dL Critically low 11-32 [facility] Comment on above: Performed By: #### A MM ####[facility] Qwhbnbijkc6176[address] [place], [place] [address]Dr. Flaco Lawrence CBC AUTO DIFFon 07-30-2022 BASO # 0.0 103/ul Normal 0.0-0.1 [facility] Comment on above: Performed By: #### C BC ####[facility] Pqowpjoerr1676[address] [place], [place] [address]Dr. Purviedith Lawrence Basophils/100 WBC (Bld) 0.1 % Critically low 0.2-2.0 [facility] Comment on above: Performed By: #### C BC ####[facility] Cbcodmmyxt5623[address] [place], [place] [address]Dr. Flaco Lawrence EO # 0.0 103/ul Normal 0.0-0.7 [facility] Comment on above: Performed By: #### C BC ####[facility] Xnlwpprzae4963[address] [place], [place] [address]Dr. Flaco Branden Eosinophils/100 WBC (Bld) 0.1 % Critically low 0.9-7.0 [facility] Comment on above: Performed By: #### C BC ####[facility] Owxpdtrxmd6321 [place] [address]Dr. Flaco Lawrence Erythrocyte distribution width (RBC) [Ratio] 13.5 % Normal 11.0-15.0 [facility] Comment on above: Performed By: #### C BC ####[facility] Kcqqsiyqok7092 [place] [address]Dr. Flaco Lawrence Hematocrit (Bld) [Volume fraction] 37.8 % Critically low 42.0-54.0 [facility] Comment on above: Performed By: #### C BC ####[facility] Layzuitgtv0153[address] [place], [place] [address]Dr. Flaco Lawrence Hemoglobin (Bld) [Mass/Vol] 12.8 g/dL Critically low 14.0-18.0 [facility] Comment on above: Performed By: #### C BC ####[facility] Ryixohxwkr230[address] [place], [place] [address]Dr. Flaco Lawrence IG # 0.06 10e3/ul Critically high 0.00-0.03 [facility] Comment on above: Performed By: #### C BC ####[facility] Exsfqxqqbi1611[address] [place], [place] [address]Dr. Flaco Lawrence IG % 0.4 % Normal 0.0-0.5 [facility] Comment on above: Performed By: #### C BC ####[facility] Zuoekkviif8941[address] [place], [place] [address]Dr. Flaco Lawrence LYMPH # 1.0 103/ul Critically low 1.2-3.8 [facility] Comment on above: Performed By: #### C BC ####[facility] Iqpbyqbwpr8406[address] [place], [place] [address]Dr. Flaco Lawrence Lymphocytes/100 WBC (Bld) 7.0 % Critically low 20.5-60.0 [facility] Comment on above: Performed By: #### C BC ####[facility] Eihkhmipgp24[address] [place], [place] [address]Dr. Purviedith Lawrence MANUAL DIFF REQ NO Normal [facility] Comment on above: Performed By: #### C BC ####[facility] Gyqtnkaqzs5554 [place] [phone]. Flaco Lawrence MCH (RBC) [Entitic mass] 29.6 pg Normal 25.9-34.0 [facility] Comment on above: Performed By: #### C BC ####[facility] Jlfawbwdcg2375 [place] [phone]. Flaco Lawrence MCHC (RBC) [Mass/Vol] 33.9 g/dL Normal 29.9-35.2 [facility] Comment on above: Performed By: #### C BC ####[facility] Zumxybgnri1613 [place] [phone]. Flaco Branden MCV (RBC) [Entitic vol] 87.3 fL Normal 80.0-94.0 [facility] Comment on above: Performed By: #### C BC ####[facility] Aujpqlxivk109[address] [place], [place] [address]Dr. Flaco Lawrence MONO # 1.4 103/ul Critically high 0.3-0.[address] [facility] Comment on above: Performed By: #### C BC ####[facility] Mprhacnzsd9[address] [place] [address]Dr. Purviedith Lawrence Monocytes/100 WBC (Bld) 9.2 % Normal 1.7-12.0 [facility] Comment on above: Performed By: #### C BC ####[facility] Rquceskuzf[address] [place], [place] [address]Dr. Flaco Lawrence NEUT # 12.3 103/ul Critically high 1.4-6.5 [facility] Comment on above: Performed By: #### C BC ####[facility] Ucefqagtqv[address] [place], [place] [address]Dr. Flaco Lawrence Neutrophils/100 WBC (Bld) 83.2 % Critically high 43.0-75.0 [facility] Comment on above: Performed By: #### C BC ####[facility] Itjickkthf2128 [place] [phone]. Flaco Lawrence Platelet mean volume (Bld) [Entitic vol] 10.4 fL Normal 9.5-13.5 [facility] Comment on above: Performed By: #### C BC ####[facility] Nhmxdesefx9838 [place], [place] [address]Co. Flaco Lawrence PLT 266 103/ul Normal 150-450 [facility] Comment on above: Performed By: #### C BC ####[facility] Nzvoatpmld9870 [place], [place] [address]No. Flaco Lawrence RBC 4.33 106/ul Critically low 4.70-6.10 [facility] Comment on above: Performed By: #### C BC ####[facility] Rxusqmtzet4224 [place], [place] [address]Gh. Flaco Lawrence WBC 14.8 103/ul Critically high 4.0-11.0 [facility] Comment on above: Performed By: #### C BC ####[facility] Fxmasaiyhv[address] [place] [id number]. Flaco Branden CRPon 07-30-2022 CRP 12.2 mg/dL Critically high <=1.0 [facility] Comment on above: Performed By: #### C RP ####[facility] Bnjfulertf0351 [place] [phone]. Flaco Lawrence CT FOOT RT WO CONon 07-30-[address] FOOT RT WO CON Normal [facility] MRI BRAIN WO CONon 2 MRI BRAIN WO CON Normal [facility] PROF 14(COMP METB)on 022 Albumin [Mass/Vol] 2.7 g/dL Critically low 3.4-5.0 [facility] Comment on above: Performed By: #### C MP ####[facility] Sgkkyidyfe0877 [place] [phone]. Flaco Lawrence Albumin/Globulin [Mass ratio] 0.7 {ratio} Normal [facility] Comment on above: Performed By: #### C MP ####[facility] Lnpnortemr8103 [place], [place] [address]Zm. Flaco Branden ALP [Catalytic activity/Vol] 61 U/L Normal 46-116 [facility] Comment on above: Performed By: #### C MP ####[facility] Rrsmtnsqlu1366 [place] [phone]. Flaco Lawrence ALT [Catalytic activity/Vol] 27 U/L Normal 16-63 [facility] Comment on above: Performed By: #### C MP ####[facility] Znpkyuoaml1888 [place] [phone]. Flaco Lawrence Anion gap [Moles/Vol] 16.1 mmol/L Normal [facility] Comment on above: Performed By: #### C MP ####[facility] Rkycwtiirk0807 [place] [phone]. Flaco Lawrence AST [Catalytic activity/Vol] 39 U/L Critically high 15-37 [facility] Comment on above: Performed By: #### C MP ####[facility] Khavninuhw1335 [place] [phone]. Flaco Lawrence Bilirubin [Mass/Vol] 1.1 mg/dL Critically high 0.2-1.0 [facility] Comment on above: Performed By: #### C MP ####[facility] Zjtxidwuot2681 [place] [phone]. Flaco Lawrence Calcium [Mass/Vol] 9.0 mg/dL Normal 8.5-10.1 [facility] Comment on above: Performed By: #### C MP ####[facility] Nbhttsxxtd7627 [place] [phone]. Flaco Lawrence Chloride [Moles/Vol] 103 mmol/L Normal 98-107 [facility] Comment on above: Performed By: #### C MP ####[facility] Rrfagewxos1450 [place] [phone]. Flaco Lawrence CO2 [Moles/Vol] 21.8 mmol/L Normal 21.0-32.0 [facility] Comment on above: Performed By: #### C MP ####[facility] Bqdzaejqlm7552 [place] [phone]. Flaco Lawrence Creatinine [Mass/Vol] 2.03 mg/dL Critically high 0.70-1.30 [facility] Comment on above: Performed By: #### C MP ####[facility] Lwoyazavnp7681 [place] [phone]. Flaco Lawrence EGFR-AF EMIRATI 39 mL/min/1.73m2 Critically low >=60 [facility] Comment on above: Performed By: #### C MP ####[facility] Fhcaxcybto0195 [place] [phone]. Flaco Lawrence EGFR-NON AF EMIRATI 33 mL/min/1.73m2 Critically low >=60 [facility] Comment on above: Performed By: #### C MP ####[facility] Ngbddtgzbz6114 [place] [phone]. Flaco Lawrence Globulin (S) [Mass/Vol] 3.9 g/dL Normal [facility] Comment on above: Performed By: #### C MP ####[facility] Abkrgxcvsp1543 [place] [address]Dr. Flaco Lawrence Glucose [Mass/Vol] 122 mg/dL Critically high 74-106 [facility] Comment on above: Performed By: #### C MP ####[facility] Fjduaczegq5275 [place] [phone]. Flaco Lawrence Potassium [Moles/Vol] 2.9 mmol/L Critically low 3.5-5.1 [facility] Comment on above: Performed By: #### C MP ####[facility] Whlpawhfad7780 [place] [phone]. Flaco Lawrence Protein [Mass/Vol] 6.6 g/dL Normal 6.4-8.2 [facility] Comment on above: Performed By: #### C MP ####[facility] Nlpuzgvcdv3188 [place] [address]Dr. Flaco Lawrence Sodium [Moles/Vol] 139 mmol/L Normal 136-145 [facility] Comment on above: Performed By: #### C MP ####[facility] Epclsjwamy3532 [place] [address]Dr. Flaco Lawrence Urea nitrogen [Mass/Vol] 30.0 mg/dL Critically high 7.0-18.0 [facility] Comment on above: Performed By: #### C MP ####[facility] Bkcajpaztq0593 [place] [address]Dr. Flaco Lawrence Urea nitrogen/Creatinine [Mass ratio] 14.8 mg/mg Normal [facility] Comment on above: Performed By: #### C MP ####[facility] Azgbrcszgz0660 [place] [address]Dr. Flaco Lawrence URIC ACID SERUMon 07-30-2022 Urate [Mass/Vol] 8.8 mg/dL Critically high 3.5-7.2 [facility] Comment on above: Performed By: #### U DAVID ####[facility] Fohieurvbk0987[address] [place], [place] [address]Dr. Flaco Lawrence AMMONIAon 07-29-2022 Ammonia (P) [Mass/Vol] ug/dL Critically low [facility] Comment on above: Performed By: #### A MM ####[facility] Rxrorbwgvj6874[address] [place], [place] [address]Dr. Flaco Lawrence BLOOD GASES BTYon 07-29-2022 02 MODE ROOM AIR Normal [facility] Comment on above: Performed By: #### A BG ####[facility] Hbxwnwkmxc8129[address] [place], [place] [address]Dr. Flaco Lawrence ALLENS TEST Positive Normal [facility] Comment on above: Performed By: #### A BG ####[facility] Cdfdftykph7047[address] [place], [place] [address]Dr. Flaco Lawrence Base excess Calc (Bld) [Moles/Vol] -3.7000 mmol/L Critically low -2.0-2.0 [facility] Comment on above: Performed By: #### A BG ####[facility] Notfxucmpp9732[address] [place], [place] [address]Dr. Flaco Lawrence BIPAP PRESSURE Normal [facility] Comment on above: Performed By: #### A BG ####[facility] Snmbvfozcc430[address] [place], [place] [address]Dr. Flaco Lawrence CPAP Normal [facility] Comment on above: Performed By: #### A BG ####[facility] Jrsvvbxszv12[address] [place], [place] [address]Dr. Flaco Lawrence FIO2 Normal [facility] Comment on above: Performed By: #### A BG ####[facility] Rryyadukhu8638[address] [place], [place] [address]Dr. Flaco Lawrence HCO3 (Bld) [Moles/Vol] 20.4 mmol/L Critically low 22.0-26. 0 [facility] Comment on above: Performed By: #### A BG ####[facility] Gohysschbf2341[address] [place], [place] [address]Dr. Flaco Lawrence LPM Normal [facility] Comment on above: Performed By: #### A BG ####[facility] Wttckpngvd299[address] [place], [place] [address]Dr. Flaco Lawrence MINUTE VOLUME Normal [facility] Comment on above: Performed By: #### A BG ####[facility] Ozvxkwvpml3835[address] [place], [place] [address]Dr. Flaco Lawrence Oxygen (Bld) [Partial pressure] 73.0 mm[Hg] Critically low 80.0-100.0 [facility] Comment on above: Performed By: #### A BG ####[facility] Citctyhmkp020[address] [place], [place] [address]Dr. Flaco Lawrence Oxygen saturation in Blood 95.5 % Normal 95.0-100.0 [facility] Comment on above: Performed By: #### A BG ####[facility] Eonktjmoiw6074[address] [place], [place] [address]Dr. Flaco Lawrence PCO2 29.7 mmHg Critically low 35.0-45.0 [facility] Comment on above: Performed By: #### A BG ####[facility] Ttxaflkcdc9[address] [place], [place] [address]Dr. Flaco Lawrence PEEP Normal [facility] Comment on above: Performed By: #### A BG ####[facility] Pbvauczbki712[address] [place], [place] [address]Dr. Flaco Lawrence pH (Bld) 7.445 [pH] Normal 7.350-7.450 [facility] Comment on above: Performed By: #### A BG ####[facility] Optqbdsvop8916 [place] [phone]. Flaco Lawrence PIP Normal [facility] Comment on above: Performed By: #### A BG ####[facility] Pxwsxrspyn9963 [place] [address]Dr. Flaco Lawrence PS Normal [facility] Comment on above: Performed By: #### A BG ####[facility] Fuvijhcpis4650 [place] [address]Dr. Flaco Lawrence PUNCTURE SITE RR Normal [facility] Comment on above: Performed By: #### A BG ####[facility] Lxhdshhgzw6252 [place] [address]Dr. Flaco Lawrence RATE [facility] Comment on above: Performed By: #### A BG ####[facility] Edwgtxjguo7[address] [place], [place] [address]Dr. Flaco Lawrence VENT MODE [facility] Comment on above: Performed By: #### A BG ####[facility] Pjrljqbuma2814[address] [place], [place] [address]Dr. Flaco Lawrence [place] [facility] Comment on above: Performed By: #### A BG ####[facility] Npctstbotm7[address] [place], [place] [address]Dr. Flaco Lawrence CBC W MANUAL DIFFon 07-29-20 22 ATYPICAL LYMPH # Normal [facility] Comment on above: Performed By: #### C CLEVELAND ####[facility] Hmoigrnksf07[address] [place], [place] [address]Dr. Flaco Lawrence ATYPICAL LYMPH % Normal [facility] Comment on above: Performed By: #### C BCMAN ####[facility] Tdgkyelsqz7828 [place] [address]Dr. Flaco Lawrence BAND # 0.6 103/ul Critically high 0.0-0.[address] [facility] Comment on above: Performed By: #### C CLEVELAND ####[facility] Povagcqugg0[address] [place], [place] [address]Dr. Flaco Lawrence BAND % 4 % Normal 0-5 [facility] Comment on above: Performed By: #### C BCGAYATHRI ####[facility] Pivahzjpzs7453 [place] [phone]. Flaco Lawrence BASOM # 0.00 103/ul Normal 0.00-0.10 [facility] Comment on above: Performed By: #### C BCAGYATHRI ####[facility] Xvhcyagfee8483 [place] [phone]. Flaco Lawrence BASOM % 0.0 % Critically low 0.2-2.0 [facility] Comment on above: Performed By: #### C BCGAYATHRI ####[facility] Vbyehaijgk0128 [place] [phone]. Flaco Lawrence BLAST # Normal [facility] Comment on above: Performed By: #### C BCGAYATHRI ####[facility] Jgomvadmxj2924 [place] [address]Dr. Flaco Lawrence BLAST % Normal [facility] Comment on above: Performed By: #### C C[place]AND ####[facility] Iumpqeaizl22[address] [place], [place] [address]Dr. Flaco Lawrence CORRECTED WBC Normal 4.0-11.0 [facility] Comment on above: Performed By: #### C BCGAYATHRI ####[facility] Hnsibhazco8197 [place] [address]Dr. Flaco Lawrence EOS # 0.00 103/ul Normal 0.00-0.70 [facility] Comment on above: Performed By: #### C BCGAYATHRI ####[facility] Uqsohjhwsc7703 [place] [address]Dr. Flaco Lawrence EOS% 0.0 % Critically low 0.9-7.0 [facility] Comment on above: Performed By: #### C BCGAYATHRI ####[facility] Piaarddlez0242 [place] [phone]. Flaco Lawrence HCT 43.8 % Normal 42.0-54.0 [facility] Comment on above: Performed By: #### C BCGAYATHRI ####[facility] Aeieqwnmud8[address] [place], [place] [address]Dr. Flaco Lawrence HGB 14.6 g/dl Normal 14.0-18.0 [facility] Comment on above: Performed By: #### C CLEVELAND ####[facility] Hmraqwsnnp1970 [place] [phone]. Flaco Lawrence LYMPHM # 0.72 103/ul Critically low 1.20-3.[address] [facility] Comment on above: Performed By: #### C CLEVELAND ####[facility] Vknafvuoxh2078 [place] [phone]. Flaco Lawrence LYMPHM% 5.0 % Critically low 20.5-60.0 [facility] Comment on above: Performed By: #### C CLEVELAND ####[facility] Rrelbdqmya1771 [place] [phone]. Flaco Lawrence MCH 29.6 pg Normal 25.9-34.0 [facility] Comment on above: Performed By: #### Corina GUTHRIE ####[facility] Wmjalsdajc2993 [place] [phone]. Flaco Lawrence MCHC 33.3 g/dl Normal 29.9-35.2 [facility] Comment on above: Performed By: #### Corina GUTHRIE ####[facility] Isuzwiitsx9360 [place] [phone]. Flaco Lawrence MCV 88.7 fL Normal 80.0-94.0 [facility] Comment on above: Performed By: #### Corina GUTHRIE ####[facility] Alwxvvutjl1537 [place] [phone]. Flaco Lawrence METAMYELOCYTE # Normal [facility] Comment on above: Performed By: #### Corina GUTHRIE ####[facility] Frjvomaizl1565 [place] [phone]. Flaco Lawrence METAMYELOCYTE % Normal [facility] Comment on above: Performed By: #### C C[place]AND ####[facility] Gghilrbjez3506 [place] [phone]. Flaco Lawrence MONOM# 0.14 103/ul Critically low 0.30-0.[address] [facility] Comment on above: Performed By: #### Corina GUTHRIE ####[facility] Ywevvbmzhi5997 [place] [address]Dr. Flaco Lawrence MONOM% 1.0 % Critically low 1.7-12.0 [facility] Comment on above: Performed By: #### C CLEVELAND ####[facility] Qbdbneovsg0334 [place], [place] [address]Ay. Flaco Lawrence MPV 10.6 fL Normal 9.5-13.5 [facility] Comment on above: Performed By: #### C CLEVELAND ####[facility] Impqdoapyg5764 [place], [place] [address]Wb. Flaco Lawrence MYELOCYTE # Normal [facility] Comment on above: Performed By: #### C CLEVELAND ####[facility] Ljtjlzovdo6592 [place] [phone]. Flaco Lawrence MYELOCYTE % Normal [facility] Comment on above: Performed By: #### C C[place]AND ####[facility] Nxfsiteddj0104 [place] [phone]. Flaco Lawrence NRBC Normal [facility] Comment on above: Performed By: #### C CLEVELAND ####[facility] Dbinvxqtvp4193 [place] [phone]. Flaco Lawrence PLT 267 103/ul Normal 150-450 [facility] Comment on above: Performed By: #### C CLEVELAND ####[facility] Kbpwqravrw3170 [place] [phone]. Flaco Lawrence RBC 4.94 106/ul Normal 4.70-6.10 [facility] Comment on above: Performed By: #### C CLEVELAND ####[facility] Fjdhqltpxp7545 [place] [phone]. Flaco Lawrence RDW 13.6 % Normal 11.0-15.0 [facility] Comment on above: Performed By: #### C C[place]AND ####[facility] Muyjzcolyb0892 [place] [phone]. Flaco Lawrence SEG # 12.96 103/ul Critically high 1.40-6.[address] [facility] Comment on above: Performed By: #### C C[place]AND ####[facility] Gvkrgasrxb1649 [place] [phone]. Flaco Lawrence SEG % 90.0 % Critically high 43.0-75.[address] [facility] Comment on above: Performed By: #### C BCMAN ####[facility] Ajlplwteav1499 [place] [address]Dr. Flaco Lawrence TOXIC GRANULATION 2+ Normal [facility] Comment on above: Performed By: #### C C[place]AND ####[facility] Csnmqullqk8705 [place] [phone]. Flaco Lawrence WBC 14.4 103/ul Critically high 4.0-11.0 [facility] Comment on above: Performed By: #### C C[place]AND ####[facility] Llltnbktne66[address] [place], [place] [address]Dr. Flaco Lawrence CT ABD/PELVIS WO CONon 07-29 CT ABD/PELVIS WO CON Normal [facility] CT HEAD WO CONon 07-29-2022 CT HEAD WO CON Normal [facility] CULTURE URINEon 07-29-2022 CULTURE URINE Culture Observations : NO GROWTH. Normal [facility] Comment on above: Performed By: #### U RCX ####[facility] Yvxwkptaym4988[address] [place], [place] [address]Dr. Flaco Branden ER URINE PROFILEon 2 Bilirubin Ql (U) MODERATE Abnormal NEGATIVE [facility] Comment on above: Performed By: #### Riccardo SENA UMICRO ####[facility] Uylbdezppq7824[address] [place], [place] [address]Dr. Flaco Lawrence Clarity (U) CLEAR Normal CLEAR [facility] Comment on above: Performed By: #### Riccardo SENA UMICRO ####[facility] Jvpgvhhbfx3572[address] [place], [place] [address]Dr. Flaco Lawrence Color (U) YELLOW Normal YELLOW [facility] Comment on above: Performed By: #### Riccardo SENA UMICRO ####[facility] Zbqajziyuq9975 [place] [address]Dr. Flaco Lawrence ERUAHD A micrscopic examination will be performed if indicated. Normal [facility] Comment on above: Performed By: #### E RUR, UMICRO ####[facility] Lkmtpreczh0117[address] [place], [place] [address]Dr. Flaco Lawrence Glucose Ql (U) Negative Normal NEGATIVE [facility] Comment on above: Performed By: #### EVETTE RAMON ####[facility] Rphddnofat5495 [place] [address]Dr. Purviedith Lawrence Hemoglobin Ql (U) MODERATE Abnormal NEGATIVE [facility] Comment on above: Performed By: #### EVERARDO RAMONRO ####[facility] Hwrkunujrf3734[address] [place], [place] [address]Dr. Flaco Lawrence Ketones Ql (U) 40 mg/dl Abnormal NEGATIVE [facility] Comment on above: Performed By: #### EVERARDO RAMONRO ####[facility] Zmuhhegxjq5832[address] [place], [place] [address]Dr. Flaco Lawrence LEUKOCYTES Negative Normal NEGATIVE [facility] Comment on above: Performed By: #### EVETTE RAMON ####[facility] Gdxouzggvz2557[address] [place], [place] [address]Dr. Flaco Lawrence Nitrite Ql (U) Negative Normal NEGATIVE [facility] Comment on above: Performed By: #### EVETTE RAMON ####[facility] Wbxnjynjuz017[address] [place], [place] [address]Dr. Purviedith Lawrence pH (U) 5.5 [pH] Normal 5-9 [facility] Comment on above: Performed By: #### EVETTE RAMON ####[facility] Jzjhmtsxlx970[address] [place], [place] [address]Dr. Flaco Lawrence Protein (U) [Mass/Vol] 100 mg/dL Abnormal NEGAT LIANNE/ TRACE [facility] Comment on above: Performed By: #### EVETTE RAMON ####[facility] Hfxvgnugqx9132[address] [place], [place] [address]Dr. Flaco Lawrence SPEC GRAVITY >=1.030 Abnormal 1.005-<=1.02 5 [facility] Comment on above: Performed By: #### EVETTE RAMON ####[facility] Bnwwodukof5922 [place] [address]Dr. Flaco Lawrence UR MICRO IND INDICATED Normal [facility] Comment on above: Performed By: #### E EVERARDO SENARO ####[facility] Nvqmagjpsg7859 [place] [address]Dr. Flaco Lawrence Urobilinogen Qn (U) 1.0 {Tuan'U}/dL Normal 0.2 - 1. 0 [facility] Comment on above: Performed By: #### E [facility]IDA [facility] HOSPITALRO ####[facility] Iozjjziazb8574 [place] [address]Dr. Flaco Lawrence LACTATE/LACTIC ACIDon 2021 Lactate [Moles/Vol] 2.3 mmol/L Critically high 0.4-1.9 [facility] Comment on above: Performed By: #### L ACT ####[facility] Iinjvkkjwk5094[address] [place], [place] [address]Dr. Flaco Lawrence PROF 14(COMP METB)on 022 Albumin [Mass/Vol] 2.9 g/dL Critically low 3.4-5.0 [facility] Comment on above: Performed By: #### C MP ####[facility] Wynqoveffx1388[address] [place], [place] [address]Dr. Flaco Lawrence Albumin/Globulin [Mass ratio] 0.7 {ratio} Normal [facility] Comment on above: Performed By: #### C MP ####[facility] Gegxlfayll3825[address] [place], [place] [address]Dr. Flaco Lawrence ALP [Catalytic activity/Vol] 78 U/L Normal 46-116 [facility] Comment on above: Performed By: #### C MP ####[facility] Rgyxwxyhre922[address] [place], [place] [address]Dr. Flaco Lawrence ALT [Catalytic activity/Vol] 33 U/L Normal 16-63 [facility] Comment on above: Performed By: #### C MP ####[facility] Xjvqnvxxhx1387[address] [place], [place] [address]Dr. Flaco Lawrence Anion gap [Moles/Vol] 14.5 mmol/L Normal [facility] Comment on above: Performed By: #### C MP ####[facility] Jggodmcman0192 [place] [phone]. Flaco Lawrence AST [Catalytic activity/Vol] 38 U/L Critically high 15-37 [facility] Comment on above: Performed By: #### C MP ####[facility] Acgymavqgu6858 [place] [phone]. Flaco Lawrence Bilirubin [Mass/Vol] 1.6 mg/dL Critically high 0.2-1.0 [facility] Comment on above: Performed By: #### C MP ####[facility] Taorqypysd6341 [place] [address]Dr. Flaco Lawrence Calcium [Mass/Vol] 9.2 mg/dL Normal 8.5-10.1 [facility] Comment on above: Performed By: #### C MP ####[facility] Kmdhvwibga26[address] [place], [place] [address]Dr. Flaco Lawrence Chloride [Moles/Vol] 104 mmol/L Normal 98-107 [facility] Comment on above: Performed By: #### C MP ####[facility] Jdwpvqwqrk3856[address] [place], [place] [address]Dr. Flaco Lawrence CO2 [Moles/Vol] 23.5 mmol/L Normal 21.0-32.0 [facility] Comment on above: Performed By: #### C MP ####[facility] Hezjeqnojr8519[address] [place], [place] [address]Dr. Flaco Branden Creatinine [Mass/Vol] 1.95 mg/dL Critically high 0.70-1.30 [facility] Comment on above: Performed By: #### C MP ####[facility] Klvmygacxl[address] [place], [place] [address]Dr. Flaco Lawrence EGFR-AF EMIRATI 41 mL/min/1.73m2 Critically low >=60 [facility] Comment on above: Performed By: #### C MP ####[facility] Vwrnkrdqnj033[address] [place], [place] [address]Dr. Flaco Lawrence EGFR-NON AF EMIRATI 34 mL/min/1.73m2 Critically low >=60 [facility] Comment on above: Performed By: #### C MP ####[facility] Jntaqhygna6052 [place] [address]Dr. Flaco Branden Globulin (S) [Mass/Vol] 4.3 g/dL Normal [facility] Comment on above: Performed By: #### C MP ####[facility] Rwncgihdsu0808 [place] [address]Dr. Purviedith Branden Glucose [Mass/Vol] 169 mg/dL Critically high 74-106 [facility] Comment on above: Performed By: #### C MP ####[facility] Lcwoqkgiey8719 [place] [address]Dr. Flaco Lawrence Potassium [Moles/Vol] 4.0 mmol/L Normal 3.5-5.1 [facility] Comment on above: Performed By: #### C MP ####[facility] Vyyaqikhuq23[address] [place], [place] [address]Dr. Flaco Branden Protein [Mass/Vol] 7.2 g/dL Normal 6.4-8.2 [facility] Comment on above: Performed By: #### C MP ####[facility] Ztogfjomcv699[address] [place], [place] [address]Dr. Flaco Branden Sodium [Moles/Vol] 138 mmol/L Normal 136-145 [facility] Comment on above: Performed By: #### C MP ####[facility] Sdbzjdzvfp9682 [place] [address]Dr. Flaco Lawrence Urea nitrogen [Mass/Vol] 29.0 mg/dL Critically high 7.0-18.0 [facility] Comment on above: Performed By: #### C MP ####[facility] Qzhrpzgnfz95[address] [place], [place] [address]Dr. Flaco Lawrence Urea nitrogen/Creatinine [Mass ratio] 14.9 mg/mg Normal [facility] Comment on above: Performed By: #### C MP ####[facility] Ftmzxdkoin0056 [place] [address]Dr. Flaco Lawrence URINE MICROSCOPIC ONLYon AMORPHOUS CRYSTALS MODERATE Normal [facility] Comment on above: Performed By: #### Riccardo SENA UMICRO ####[facility] Vuxwtddioi1566 [place] [address]Dr. Flaco Lawrence BACTERIA MODERATE Abnormal NONE SEEN [facility] Comment on above: Performed By: #### Riccardo SENA UMICRO ####[facility] Bwiynhkfcy9796 [place] [address]Dr. Flaco Lawrence Bacteria identified Cx Nom (U) INDICATED Normal [facility] Comment on above: Performed By: #### Riccardo SENA UMICRO ####[facility] Jlsqxamkmj8109 [place] [address]Dr. Flaco Lawrence CAST SEEN Abnormal NONE SEEN [facility] Comment on above: Performed By: #### Riccardo SENA UMICRO ####[facility] Swjmsbhbsy[address] [place], [place] [address]Dr. Flaco Lawrence COARSE GRANULAR CAST RARE Normal [facility] Comment on above: Performed By: #### Riccardo SENA UMICRO ####[facility] Yyebwpyjda[address] [place], [place] [address]Dr. Flaco Lawrence Crystals LM Nom (Urine sed) SEEN Abnormal NONE SEEN [facility] Comment on above: Performed By: #### Riccardo SENA UMICRO ####[facility] Jfnewqwyvk[address] [place], [place] [address]Dr. Flaco Lawrence Epithelial cells LM Ql (Urine sed) RARE Normal NONE SEEN /RARE [facility] Comment on above: Performed By: #### Riccardo SENA UMICRO ####[facility] Eozlcvkupc[address] [place], [place] [address]Dr. Flaco Lawrence MUCOUS TRACE Abnormal NONE SEEN [facility] Comment on above: Performed By: #### Riccardo SENA UMICRO ####[facility] Ivebjfspgs9[address] [place], [place] [address]Dr. Flaco Lawrence RBC 0-2 Normal 0-2 [facility] Comment on above: Performed By: #### Riccardo SENA UMICRO ####[facility] Mrumucllng98[address] [place], [place] [address]Dr. Flaco Lawrence WBC 0-2 Abnormal NONE SEEN [facility] Comment on above: Performed By: #### E EVETTE SENA ####[facility] [address] [place] [address]Dr. Flaco Lawrence BNPon 07-28-2022 Natriuretic peptide B (Bld) [Mass/Vol] 258.0 pg/mL Normal <=900.0 [facility] Comment on above: Performed By: #### C MP, BNP, HSTROPN ####[facility] Vyxezddodd08[address] [place] [address]Dr. Flaco Lawrence CBC W MANUAL DIFFon 07-28-20 22 ATYPICAL LYMPH # 0.21 103/ul Normal [facility] Comment on above: Performed By: #### C C[place] ####[facility] Gyfwsgqmgi57[address] [place] [address]Dr. Flaco Lawrence ATYPICAL LYMPH % 1 % Normal [facility] Comment on above: Performed By: #### Corina GUTHRIE ####[facility] Dnrehxsqgc1795 [place] [address]Dr. Flaco Lawrence BAND # 0.0 103/ul Normal 0.0-0.3 [facility] Comment on above: Performed By: #### C C[place] ####[facility] Uzdtdoxeeg8[address] [place] [address]Dr. Flaco Lawrence BAND % 0 % Normal 0-5 [facility] Comment on above: Performed By: #### C C[place] ####[facility] Szywvqqcew[address] [place], [place] [address]Dr. Flaco Lawrence BASOM # 0.00 103/ul Normal 0.00-0.10 [facility] Comment on above: Performed By: #### C C[place] ####[facility] Jueldkjkga70[address] [place], [place] [address]Dr. Flaco Lawrence BASOM % 0.0 % Critically low 0.2-2.0 [facility] Comment on above: Performed By: #### C C[place] ####[facility] Ukovsjxxbl[address] [place], [place] [address]Dr. Yilan Lawrence BLAST # Normal [facility] Comment on above: Performed By: #### C BCGAYATHRI ####[facility] Hzooekzvbg1544 [place] [id number]. Flaco Lawrence BLAST % Normal [facility] Comment on above: Performed By: #### C BCGAYATHRI ####[facility] Qfiemxkhcx1349 [place] [id number]. Flaco Lawrence CORRECTED WBC Normal 4.0-11.0 [facility] Comment on above: Performed By: #### C BCGAYATHRI ####[facility] Xjoqcccrio8704 [place] [id number]. Flaco Lawrence EOS # 0.00 103/ul Normal 0.00-0.70 [facility] Comment on above: Performed By: #### C BCGAYATHRI ####[facility] Lbugyqosqq13[address] [place], [place] [address]Dr. Flaco Lawrence EOS% 0.0 % Critically low 0.9-7.0 [facility] Comment on above: Performed By: #### C BCGAYATHRI ####[facility] Jqellwajsy26[address] [place], [place] [address]Dr. Flaco Lawrence HCT 48.8 % Normal 42.0-54.0 [facility] Comment on above: Performed By: #### C BCGAYATHRI ####[facility] Jtdaohxaex[address] [place], [place] [address]Dr. Flaco Lawrence HGB 16.2 g/dl Normal 14.0-18.0 [facility] Comment on above: Performed By: #### C BCGAYATHRI ####[facility] Pssgpafgnt[address] [place], [place] [address]Dr. Flaco Lawrence LYMPHM # 0.62 103/ul Critically low 1.20-3.[address] [facility] Comment on above: Performed By: #### C BCMAN ####[facility] Nltzocapix64[address] [place], [place] [address]Dr. Flaco Lawrence LYMPHM% 3.0 % Critically low 20.5-60.0 [facility] Comment on above: Performed By: #### C BCGAYATHRI ####[facility] Pdrughbofc0259 [place] [id number]. Flaco Lawrence MCH 29.5 pg Normal 25.9-34.0 [facility] Comment on above: Performed By: #### C C[place] ####[facility] Uzvyovwajn8541 [place] [id number]. Flaco Lawrence MCHC 33.2 g/dl Normal 29.9-35.2 [facility] Comment on above: Performed By: #### C C[place]AND ####[facility] Gexvmsjegc2654 [place] [id number]. Flaco Lawrence MCV 88.7 fL Normal 80.0-94.0 [facility] Comment on above: Performed By: #### C C[place] ####[facility] Ycewfmkqrr[address] [place], [place] [address]Dr. Flaco Lawrence METAMYELOCYTE # Normal The [facility] Comment on above: Performed By: #### C C[place]AND ####[facility] Iakailnwwr[address] [place], [place] [address]Dr. Flaco Lawrence METAMYELOCYTE % Normal [facility] Comment on above: Performed By: #### C C[place]AND ####[facility] Kyymaosryd[address] [place], [place] [address]Dr. Flaco Lawrence MONOM# 2.28 103/ul Critically high 0.30-0.80 [facility] Comment on above: Performed By: #### C C[place]AND ####[facility] Swnnaapqrj[address] [place], [place] [address]Dr. Flaco Lawrence MONOM% 11.0 % Normal 1.7-12.0 [facility] Comment on above: Performed By: #### C C[place]AND ####[facility] Hygdeoylmv[address] [place], [place] [address]Dr. Flaco Lawrence MPV 10.5 fL Normal 9.5-13.5 [facility] Comment on above: Performed By: #### C CLEVELAND ####[facility] Dxcwskocfo[address] [place], [place] [address]Dr. Flaco Lawrence MYELOCYTE # Normal [facility] Comment on above: Performed By: #### C C[place]AND ####[facility] Psdlldurqk4275 [place], [place] [address]Eu. Flaco Lawrence MYELOCYTE % Normal [facility] Comment on above: Performed By: #### C BCMAN ####[facility] Rsrbzgwtbl9053 [place], [place] [address]Cy. Flaco Lawrence NRBC Normal [facility] Comment on above: Performed By: #### C BCGAYATHRI ####[facility] Dtbpzabmtt4146 [place], [place] [address]Yv. Flaco Lawrence PLT 317 103/ul Normal 150-450 [facility] Comment on above: Performed By: #### C BCGAYATHRI ####[facility] Svrfumtvyl6805 [place], [place] [address]Da. Flaco Lawrence RBC 5.50 106/ul Normal 4.70-6.10 [facility] Comment on above: Performed By: #### C C[place]AND ####[facility] Euvdizsjai9665 [place] [phone]. Flaco Lawrence RDW 13.6 % Normal 11.0-15.0 [facility] Comment on above: Performed By: #### C C[place] ####[facility] Ejfiqeesnm2330 [place] [phone]. Flaco Lawrence SEG # 17.59 103/ul Critically high 1.40-6.50 [facility] Comment on above: Performed By: #### C C[place]AND ####[facility] Xtapsnfbmj7020 [place] [phone]. Flaco Lawrence SEG % 85.0 % Critically high 43.0-75.0 [facility] Comment on above: Performed By: #### C BCGAYATHRI ####[facility] Ojvmbqwjhr7296 [place], [place] [address]Sj. Flaco Lawrence WBC 20.7 103/ul Critically high 4.0-11.0 [facility] Comment on above: Performed By: #### C BCGAYATHRI ####[facility] Uzasssvqbj1256 [place] [phone]. Flaco Lawrence CULTURE BLOODon 07-28-2022 Microscopic examination of blood, culture Culture Observations: NO GROWTH AT 5 DAYS. Normal [facility] Comment on above: Performed By: #### B LDCX2 ####[facility] Qrdmjdkbsa[address] [place], [place] [address]Dr. Flaco Lawrence Microscopic examination of blood, culture Culture Observations: NO GROWTH AT 5 DAYS. Normal [facility] Comment on above: Performed By: #### B LDCX1 ####[facility] Vasvzigumj6[address] [place], [place] [address]Dr. Flaco Lawrence Covid-19 PCR (CVDTB)on 06-30 SARS-CoV-2 (COVID-19) RNA MARCO ANTONIO+probe Ql (Unsp spec) Not detected Normal NOT DETECTED [facility] Comment on above: Result Comment: When [...] for this test is supported by the [place] of Health and Human Service's declaration that [...] be used). Performed By: #### C VDTBH ####[facility] Xnuxhnvyjs[address] [place], [place] [address]Dr. Flaco Lawrence INFLUENZA A AND B AGon 07-28 INFLUENZA A AG Negative Normal NEGATIVE SEE COMMENT [facility] Comment on above: Performed By: #### I NFLUAB ####[facility] Lasbsyklel[address] [place], [place] [address]Dr. Flaco Lawrence INFLUENZA B AG Negative Normal NEGATIVE SEE COMMENT [facility] Comment on above: Performed By: #### I NFLUAB ####[facility] Ltdfxwzllh5632 [place] [address]Dr. Flaco Lawrence INTERNAL CONTROLS Within Normal Limits Normal Wi thin Normal Limits [facility] Comment on above: Performed By: #### I NFLUAB ####[facility] Umewcvvega2699 [place] [address]Dr. Flaco Lawrence LACTATE/LACTIC ACIDon 2021 Lactate [Moles/Vol] 2.6 mmol/L Critically high 0.4-1.9 [facility] Comment on above: Performed By: #### L ACT ####[facility] Tfiptdrygl[address] [place], [place] [address]Dr. Flaco Lawrence PROF 14(COMP METB)on 022 Albumin [Mass/Vol] 3.7 g/dL Normal 3.4-5.0 [facility] Comment on above: Performed By: #### C MP, BNP, HSTROPN ####[facility] Jzufotxgej10[address] [place], [place] [address]Dr. Flaco Lawrence Albumin/Globulin [Mass ratio] 0.8 {ratio} Normal [facility] Comment on above: Performed By: #### C MP, BNP, HSTROPN ####[facility] Lgtlxzaqfd[address] [place], [place] [address]Dr. Flaco Lawrence ALP [Catalytic activity/Vol] 95 U/L Normal 46-116 [facility] Comment on above: Performed By: #### C MP, BNP, HSTROPN ####[facility] Celdtnebau88[address] [place], [place] [address]Dr. Flaco Lawrence ALT [Catalytic activity/Vol] 38 U/L Normal 16-63 [facility] Comment on above: Performed By: #### C MP, BNP, HSTROPN ####[facility] Lqmjjzyfyd4218 [place] [address]Dr. Flaco Lawrence Anion gap [Moles/Vol] 16.8 mmol/L Normal [facility] Comment on above: Performed By: #### C MP, BNP, HSTROPN ####[facility] Kpfpgivirj1291 [place] [address]Dr. Flaco Lawrence AST [Catalytic activity/Vol] 44 U/L Critically high 15-37 [facility] Comment on above: Performed By: #### C MP, BNP, HSTROPN ####[facility] Oetjkhukkn7367 [place] [address]Dr. Flaco Lawrence Bilirubin [Mass/Vol] 2.7 mg/dL Critically high 0.2-1.0 [facility] Comment on above: Performed By: #### C MP, BNP, HSTROPN ####[facility] Ftboxbhwpx[address] [place], [place] [address]Dr. Flaco Lawrence Calcium [Mass/Vol] 9.8 mg/dL Normal 8.5-10.1 [facility] Comment on above: Performed By: #### C MP, BNP, HSTROPN ####[facility] Fzwymlalyo9[address] [place], [place] [address]Dr. Flaco Lawrence Chloride [Moles/Vol] 102 mmol/L Normal 98-107 [facility] Comment on above: Performed By: #### C MP, BNP, HSTROPN ####[facility] Ceemhkfawm98[address] [place], [place] [address]Dr. Flaco Lawrence CO2 [Moles/Vol] 23.0 mmol/L Normal 21.0-32.0 [facility] Comment on above: Performed By: #### C MP, BNP, HSTROPN ####[facility] Vhwwspxbhb[address] [place], [place] [address]Dr. Flaco Lawrence Creatinine [Mass/Vol] 2.22 mg/dL Critically high 0.70-1.30 [facility] Comment on above: Performed By: #### C MP, BNP, HSTROPN ####[facility] S[address]cczbojlb[address] [place], [place] [address]Dr. Flaco Lawrence EGFR-AF EMIRATI 36 mL/min/1.73m2 Critically low >=60 [facility] Comment on above: Performed By: #### C MP, BNP, HSTROPN ####[facility] Chhiencdyu3[address] [place], [place] [address]Dr. Flaco Lawrence EGFR-NON AF EMIRATI 29 mL/min/1.73m2 Critically low >=60 [facility] Comment on above: Performed By: #### C MP, BNP, HSTROPN ####[facility] Kgaqykhujw7[address] [place] [address]Dr. Flaco Lawrence Globulin (S) [Mass/Vol] 4.7 g/dL Normal [facility] Comment on above: Performed By: #### C MP, BNP, HSTROPN ####[facility] Vsqbobodsa[address] [place], [place] [address]Dr. Flaco Lawrence Glucose [Mass/Vol] 145 mg/dL Critically high 74-106 [facility] Comment on above: Performed By: #### C MP, BNP, HSTROPN ####[facility] Srfuhjbnpa64[address] [place], [place] [address]Dr. Flaco Lawrence Potassium [Moles/Vol] 3.8 mmol/L Normal 3.5-5.1 [facility] Comment on above: Performed By: #### C MP, BNP, HSTROPN ####[facility] Ziukqhxwlo[address] [place], [place] [address]Dr. Flaco Lawrence Protein [Mass/Vol] 8.4 g/dL Critically high 6.4-8.2 [facility] Comment on above: Performed By: #### C MP, BNP, HSTROPN ####[facility] Jwmxcpfjzh5[address] [place], [place] [address]Dr. Flaco Lawrence Sodium [Moles/Vol] 138 mmol/L Normal 136-145 [facility] Comment on above: Performed By: #### C MP, BNP, HSTROPN ####[facility] Lyeoyjgabc7[address] [place], [place] [address]Dr. Flaco Lawrence Urea nitrogen [Mass/Vol] 29.0 mg/dL Critically high 7.0-18.0 [facility] Comment on above: Performed By: #### C MP, BNP, HSTROPN ####[facility] Dkhccsmrzm[address] [place], [place] [address]Dr. Flaco Lawrence Urea nitrogen/Creatinine [Mass ratio] 13.1 mg/mg Normal [facility] Comment on above: Performed By: #### C MP, BNP, HSTROPN ####[facility] Olcfgxvuwb6861 [place], [place] [address]Hk. Flaco Lawrence TROPONIN, HIGH SENSITIVITYon 07-28-2022 HSTROP 13.6 pg/mL Normal 4.0-76.1 [facility] Comment on above: Result Comment: CUT- OFF POINTS HAVE BEEN ESTABLISHED BASED ON THE FOURTH UNIVERSAL DEFINITIONS OF MYOCARDIALINFARCTION. THE UPPER REFERENCE LIMIT (URL) OF TROPONIN, DEFINED THE 99TH PERCENTILE OFcTnI DISTRIBUTION IN A REFERENCE POPULATION, HAS BEEN CONFIRMED THE DECISION THRESHOLDFOR AL DIAGNOSIS. Performed By: #### C MP, BNP, HSTROPN ####[facility] Hytopingjg8446 [place], [place] [address]Df. Flaco Lawrence XR CHEST 1 Von 07-28-2022 XR CHEST 1 V Normal [facility] Covid-19 PCR (CVDTBH)on 06-29 SARS-CoV-2 (COVID-19) RNA MARCO ANTONIO+probe Ql (Unsp spec) Not detected Normal NOT DETECTED [facility] Comment on above: Result Comment: This test is not yet approved or cleared by the [place] FDA. When there are no FDA-approved or cleared tests available, and other criteria are met, FDA can make tests available under an emergency access mechanism called an Emergency Use Authorization (EUA). The EUA for this test is supported by the [place] [employer] [place] of Health and Human Service's (HHS's) declaration [...] with SARS-CoV-2. Performed By: #### C VDTBH ####[facility] Iuqdjkchag8318 [place], [place] [address]OgJeramie Lawrence PROF CHEM 8 (BAS METB)on Anion gap [Moles/Vol] 11.2 mmol/L Normal [facility] Comment on above: Performed By: #### B MP ####[facility] Hpqgpdjith9084 [place] [address]Dr. Flaco Branden Calcium [Mass/Vol] 8.7 mg/dL Normal 8.5-10.1 [facility] Comment on above: Performed By: #### B MP ####[facility] Pzcdzpgjsm1254 [place] [address]Dr. Flaco Lawrence Chloride [Moles/Vol] 108 mmol/L Critically high 98-107 [facility] Comment on above: Performed By: #### B MP ####[facility] Ludypsjtpx[address] [place], [place] [address]Dr. Flaco Lawrence CO2 [Moles/Vol] 26.9 mmol/L Normal 21.0-32.0 [facility] Comment on above: Performed By: #### B MP ####[facility] Zstvrxpcbp10[address] [place], [place] [address]Dr. Flaco Lawrence Creatinine [Mass/Vol] 1.77 mg/dL Critically high 0.70-1.30 [facility] Comment on above: Performed By: #### B MP ####[facility] Jwdxwjwbsw[address] [place], [place] [address]Dr. Flaco Lawrence EGFR-AF EMIRATI 46 mL/min/1.73m2 Critically low >=60 [facility] Comment on above: Performed By: #### B MP ####[facility] Dfemvmyukc5594 [place] [phone]. Flaco Lawrence EGFR-NON AF EMIRATI 38 mL/min/1.73m2 Critically low >=60 [facility] Comment on above: Performed By: #### B MP ####[facility] Qcmjwioxkt40[address] [place], [place] [address]Dr. Flaco Lawrence Glucose [Mass/Vol] 89 mg/dL Normal 74-106 [facility] Comment on above: Performed By: #### B MP ####[facility] Mlkwhzbgih0119 [place] [phone]. Flaco Lawrence Potassium [Moles/Vol] 4.1 mmol/L Normal 3.5-5.1 [facility] Comment on above: Performed By: #### B MP ####[facility] Ogokvnvkri0311 [place], [place] [address]Ij. Flaco Lawrence Sodium [Moles/Vol] 142 mmol/L Normal 136-145 [facility] Comment on above: Performed By: #### B MP ####[facility] Vrhgpggzqx5131 [place], [place] [address]Eo. Flaco Lawrence Urea nitrogen [Mass/Vol] 15.0 mg/dL Normal 7.0-18.0 [facility] Comment on above: Performed By: #### B MP ####[facility] Qpznpwlopt6928 [place] [id number]. Flaco Lawrence Urea nitrogen/Creatinine [Mass ratio] 8.5 mg/mg Normal [facility] Comment on above: Performed By: #### B MP ####[facility] Gepipdooje0974 [place] [id number]. Flaco Lawrence XR FOOT RT MIN 3 VIEWSon XR FOOT RT MIN 3 VIEWS Normal [facility] Vital Signs Date Time Vital Sign Value Performing Clinician Bill woodard 02-08-2025 08:41-0400 Body height 170.18 cm [facility] 02-08-2025 08:41-0400 Body mass index (BMI) [Ratio] 23.8 kg/m2 [facility] 02-08-2025 08:41-0400 Body weight 68.94 kg [facility] 02-08-2025 08:41-0400 Diastolic blood pressure 79 mm[Hg] [facility] 02-08-2025 08:41-0400 Heart rate 64 /min [facility] 02-08-2025 08:41-0400 Respiratory rate 16 /min [facility] 02-08-2025 08:41-0400 SaO2% (BldA) [Mass fraction] 97 % [facility] 02-08-2025 08:41-0400 Systolic blood pressure 119 mm[Hg] [facility] 02-03-2025 14:18-0400 Body height 177.8 cm Joe Jang PA-C Work Phone: [facility] 02-03-2025 14:18-0400 Body mass index (BMI) [Ratio] 20.23 kg/m2 Joe Jang PA-C Work Phone: [facility] 02-03-2025 14:18-0400 Body weight 63.96 kg Joe Jang PA-C Work Phone: [facility] 02-03-2025 14:18-0400 Diastolic blood pressure 76 mm[Hg] Joe Jang PA-C Work Phone: [facility] 02-03-2025 14:18-0400 Heart rate 74 /min Joe Jang PA-C Work Phone: [facility] 02-03-2025 14:18-0400 Systolic blood pressure 117 mm[Hg] Joe Jang PA-C Work Phone: [facility] 08-05-2024 15:21-0500 Body height 177.8 cm Joe Jang PA-C Work Phone: [facility] 08-05-2024 15:21-0500 Body mass index (BMI) [Ratio] 20.81 kg/m2 Joe Jang PA-C Work Phone: [facility] 08-05-2024 15:21-0500 Body weight 65.77 kg Joe Jang PA-C Work Phone: [facility] 08-05-2024 15:21-0500 Diastolic blood pressure 107 mm[Hg] Joe Jang PA-C Work Phone: [facility] 08-05-2024 15:21-0500 Heart rate 66 /min Joe Jang PA-C Work Phone: [facility] 08-05-2024 15:21-0500 Systolic blood pressure 153 mm[Hg] Joe Jang PA-C Work Phone: [facility] 02-12-2024 13:46-0400 Body height 177.8 cm Mel Camacho MD Work Phone: [facility] 02-12-2024 13:46-0400 Body mass index (BMI) [Ratio] 20.09 kg/m2 Mel Camacho MD Work Phone: [facility] 02-12-2024 13:46-0400 Body weight 63.5 kg Mel Camacho MD Work Phone: [facility] 02-12-2024 13:46-0400 Diastolic blood pressure 76 mm[Hg] Mel Camacho MD Work Phone: [facility] 02-12-2024 13:46-0400 Heart rate 72 /min Mel Camacho MD Work Phone: [facility] 02-12-2024 13:46-0400 Systolic blood pressure 138 mm[Hg] Mel Camacho MD Work Phone: [facility] 09-18-2023 13:33-0500 Body height 170.2 cm Mel Camacho MD Work Phone: [facility] 09-18-2023 13:33-0500 Body mass index (BMI) [Ratio] 23.49 kg/m2 Mel Camacho MD Work Phone: [facility] 09-18-2023 13:33-0500 Body weight 68.04 kg Mel Camacho MD Work Phone: [facility] 09-18-2023 13:33-0500 Diastolic blood pressure 79 mm[Hg] Mel Camacho MD Work Phone: [facility] 09-18-2023 13:33-0500 Heart rate 61 /min Mel Camacho MD Work Phone: [facility] 09-18-2023 13:33-0500 Systolic blood pressure 121 mm[Hg] Mel Camacho MD Work Phone: [facility] 05-12-2023 13:51-0400 Blood Pressure Location Baljit N[facility] [place] 05-12-2023 13:51-0400 Diastolic blood pressure 74 mm[Hg] Baljit NILL [facility] [place] 05-12-2023 13:51-0400 Heart rate 70 /min Baljit NILL [facility] [place] 05-12-2023 13:51-0400 Respiratory rate 16 /min Baljit NILL [facility] [place] 05-12-2023 13:51-0400 Systolic blood pressure 120 mm[Hg] Baljit NILL [facility] [place] Encounters Encounter Date Encounter Type Care Provider Facility Start: 03-07-2025 End: 03-07-2025 ambulatory [facility] Start: 02-10-2025 ambulatory [facility] Start: 02-08-2025 End: 02-08-2025 ambulatory [facility] Work Phone: Start: 02-08-2025 End: 02-08-2025 Patient encounter procedure [facility] Work Phone: Start: 02-03-2025 End: 02-03-[address] [facility] Start: 02-03-2025 End: 02-03-2025 [facility] [place] Comment on above: Parkinsonism, unspec ified Parkinsonism type (CMS-HCC) (Primary Dx); Mild dementia with agitation, unspecified dementia type (CMS-HCC) Start: 01-25-2025 ambulatory [facility] Start: 10-25-2024 End: 10-25-2024 ambulatory [facility] Start: 09-26-2024 End: 09-26-2024 ambulatory [facility] Start: 09-16-2024 End: 09-16-2024 ambulatory [facility] Start: 09-07-2024 End: 09-07-2024 Emergency department patient visit ORLANDO LARA [facility] Start: 09-05-2024 Evaluation and manag ement of inpatient RAMESH LAWRENCE [facility] Start: 09-05-2024 Evaluation and manag ement of inpatient NORBERTO RAY [facility] Start: 09-03-2024 Evaluation and manag ement of inpatient MAXX HALE [facility] Start: 09-03-2024 End: 09-05-2024 Evaluation and management of inpatient ODELL RODRÍGUEZ [facility] Start: 08-27-2024 End: 08-28-2024 Refill Joe Jang PA-C Work Phone: [facility] Comment on above: Mild dementia with a gitation, unspecified dementia type (CMS-HCC) Start: 08-19-2024 ambulatory SPENCER WALSHUBB [facility] Start: 08-05-2024 End: 08-05-2024 Office outpatient visit 25 minutes Joe Jang PA-C Work Phone: [facility] Comment on above: Parkinsonism, unspec ified Parkinsonism type (CMS-HCC) (Primary Dx); Mild dementia with agitation, unspecified dementia type (CMS-HCC) Start: 08-05-2024 End: 08-05-2024 ambulatory LIBRADO HELM [facility] Start: 08-05-2024 ambulatory [facility] Start: 07-28-2024 ambulatory [facility] Start: 07-20-2024 ambulatory [facility] Start: 06-17-2024 ambulatory [facility] Start: 06-14-2024 End: 06-17-2024 Telephone encounter [facility] Comment on above: 08/19 Ann Start: 06-01-2024 End: 06-01-2024 ambulatory ZEV NELLY [facility] Start: 05-17-2024 End: 05-17-2024 Refill Jonathan Ridley CMA [facility] Comment on above: Parkinsonism, unspec ified Parkinsonism type (CMS-HCC) Start: 04-28-2024 ambulatory [facility] Start: 03-23-2024 ambulatory MISSAEL HOOVER [facility] Start: 03-18-2024 ambulatory [facility] Start: 02-12-2024 End: 02-12-2024 Office outpatient visit [...] region without myelopathy or radiculopathy; Prostate cancer ([facility]-HCC) Start: 02-12-2024 End: 02-12-2024 ambulatory [facility] Start: 01-20-2024 End: 01-21-2024 Refill Jonathan Ridley CMA [facility] Comment on above: Chronic bilateral lo w back pain, unspecified whether sciatica present Start: 09-18-2023 End: 09-18-2023 Office outpatient visit [...] medical condition Start: 09-18-2023 End: 09-18-2023 ambulatory [facility] Start: 05-27-2023 End: 05-28-2023 ambulatory Baljit DOSHI Facility:CD:[id number] Start: 05-12-2023 End: 05-13-2023 ambulatory Baljit DOSHI Facility: [facility] Start: 05-12-2023 End: 05-12-2023 Patient encounter procedure Baljit Dennison [facility]Said [facility] Start: 02-09-2023 End: 02-10-2023 Evaluation and management [...] Start: 09-25-2022 Encounter for preprocedural laboratory examination [facility] Start: 09-25-2022 End: 09-25-[address] FABIAN KENNEDY Facility:H1 Start: 09-22-2022 End: 09-23-2022 ambulatory KIMBERLI RAIN Facility:H1 Start: 09-22-2022 End: 09-23-2022 Encounter for preprocedural laboratory examination [facility] Facility:H1 Start: 09-15-2022 Encounter for preprocedural cardiovascular examination [facility] Start: 09-11-2022 End: 09-12-2022 ambulatory [facility] Start: 08-15-2022 End: 08-15-2022 ambulatory JOVANI UMANZOR . Facility:H1 Start: 07-30-2022 End: 08-02-2022 Evaluation and management of inpatient DR LIBRADO HELM . Facility:H1 Start: 07-24-2022 End: 07-25-2022 ambulatory [facility] Facility:H1 Start: 07-17-2022 Encounter for preprocedural cardiovascular examination [facility] Start: 07-17-2022 Encounter for preprocedural laboratory examination [facility] Start: 07-15-2022 End: 07-16-2022 ambulatory [facility] Facility:H1 Start: 07-15-2022 End: 07-16-2022 Encounter for preprocedural cardiovascular examination [facility] Facility:H1 Start: 06-18-2022 End: 06-19-[address] LIBRADO HELM . Facility: Procedures Date Procedure Procedure Detail Performing Clinician Start: 02-03-2025 Follow-up visit Follow-up JOE JANG Start: 02-03-2025 Adult depression scr eening assessment Joe Jang PA-C Work Phone: Start: 02-12-2024 Follow-up visit Follow-up EHAD AF REEN Start: 09-18-2023 Adult depression scr eening assessment Ehad Ann Work Phone: Start: 09-19-2020 Excisional biopsy Karlos luzmaria DOSHI Comment on above: mid back Start: 06-20-2020 Laparoscopic cholecystectomy Baljit DOSHI Start: 09-28-2019 Brachytherapy of [place] state using fluoroscopic guidance Baljit DOSHI Start: 07-30-2015 Excision of lumbar intervertebral disc Baljit DOSHI Comment on above: L3-L5 Start: 08-14-2014 Colonoscopy Baljit NI LL Start: 02-04-2008 Colonoscopy Baljit NI LL Bone graft Bajlit DOSHI Comment on above: right great toe Skin graft material (substance) Baljit DOSHI Comment on above: right great toe Vasectomy Baljit DOSHI Plan of Treatment Date Care Activity Detail Author Start: 02-03-2026 Adult BMI Screening Adult [facility] Screening [facility] Start: 02-03-2026 Depression Screening Depression Screening [facility] Start: 02-03-2026 Tobacco Screening Tobacco Screening [facility] Start: 08-11-2025 End: 08-11-2025 Patient encounter procedure 08/11/2025 1:30 PM EST Office Visit [facility] [place] [id number] Joe Jang PA-C [address] [place] [id number] [facility] [place] Start: 08-05-2025 Adult BMI Screening Adult BMI Screening [facility] Start: 08-05-2025 Tobacco Screening Tobacco Screening [facility] Start: 05-29-2025 Influenza vaccination Influenza Vaccine [facility] Start: 02-11-2025 Adult BMI Screening Adult BMI Screening [facility] Start: 02-11-2025 Tobacco Screening Tobacco Screening [facility] Start: 02-03-2025 End: 02-03-2025 Patient encounter procedure 02/03/2025 2:00 PM EDT Office Visit [facility] [address] [facility] [address] Joe Jang, XAVI [address] [place] [phone] [facility] Start: 09-27-2024 Tobacco Screening Tobacco Screening [facility] Start: 09-18-2024 Adult BMI Screening Adult BMI Screening [facility] Start: 09-18-2024 Depression Screening Depression Screening [facility] Start: 09-18-2024 Tobacco Screening Tobacco Screening [facility] Start: 08-19-2024 End: 08-19-2024 Patient encounter procedure 08/19/2024 2:00 PM EST Office Visit [facility] [address] [place] [address] Mel Camcaho MD [address] [place] [address], [address] [place] [address] [facility] Start: 05-29-2024 COVID-19 Vaccine ( season) COVID-19 Vaccine ( season) [facility] Start: 05-29-2024 COVID-19 Vaccine ( season) COVID-19 Vaccine ( season) [facility] Start: 05-29-2024 Influenza vaccination Influenza Vaccine [facility] Start: 02-12-2024 End: 02-12-2024 Patient encounter procedure 02/12/2024 2:00 PM EDT Office Visit [facility] [address] [facility] [place] [address] Mel Camacho MD [address] [place] [address], [address] [place] [address] [facility] Start: 05-29-2023 COVID-19 Vaccine ( season) COVID-19 Vaccine ( season) [facility] Start: 05-29-2023 Influenza vaccination Influenza Vaccine [facility] Start: 02-08-2016 Fall Risk Screening Fall Risk Screening [facility] Start: 1970 Administration of varicella zoster vaccine Zoster (Shingles) Vaccine (1 of 2) [facility] Start: 1970 DTaP,Tdap and Td Vaccines (1 - Tdap) DTaP,Tdap and Td Vaccines (1 - Tdap) [facility] Start: 1950 Medicare Annual Wellness Visit Medicare Annual Wellness Visit [facility] Renal function 2000 panel - Serum or Plasma [facility] Immunizations Immunization Date Immunization Notes Care Provider Fa cility 09-15-2021 Influenza Vaccine, Quadrivalent, Adjuvanted Mel Camacho MD Work Phone: [facility] 09-15-2021 influenza virus vaccine, unspecified formulation Mel Camacho MD Work Phone: [facility] 07-22-2021 SARS-CoV-2 (COVID-19 ) mRNA-1273 vaccine Baljit DOSHI [facility] Comment on above: Result Comment: 2022: [id number] 12-19-2020 SARS-CoV-2 (COVID-19 ) mRNA-1273 vaccine Baljti HAIRPinky [facility] 11-22-2020 SARS-CoV-2 (COVID-19 ) mRNA-1273 vaccine Baljit HAIRPinky [facility] 06-05-2020 influenza, seasonal, injectable Mel Camacho MD Work Phone: [facility] 05-28-2020 pneumococcal conjuga te vaccine, 13 valent Mel Camacho MD Work Phone: [facility] Payers Date Payer Category Payer Medicare AETNA MEDICARE A ETNA MEDICARE PLAN (HMO) [id number] 2021-Present [phone] [address] [place] [address] [id number] 2021 Medicare HMO [employer] MEDICARE [id number] 1959 Medicare [id number] 1950 Unknown [id number] [id number]3 1951 Unknown [id number] 2.16.840.1.932525.3.579.2.593 1951 Unknown [id number] 2.16.840.1.062593.3.579.2.593 1951 Unknown [id number] 2.16.840.1.785319.3.579.2.593 1951 Unknown [id number] 2.16.840.1.358294.3.579.2.593 1951 Unknown [id number] 2.16.840.1.425649.3.579.2.593 1951 Unknown [id number] 2.16.840.1.457730.3.579.2.59 1951 Unknown [id number] 2.16.840.1.225370.3.579.2.593 1951 Unknown [id number] 2.16.840.1.542893.3.579.2.593 1951 Unknown [id number] 2.16.840.1.543913.3.579.2.593 1951 Unknown [id number] 2.16.840.1.204289.3.579.2.593 1951 Unknown [id number] 2.16.840.1.594906.3.579.2.593 1951 Unknown [id number] 2.16.840.1.303563.3.579.2.593 1951 Unknown [id number] 2.16.840.1.319505.3.579.2.593 1951 Unknown [id number] 2.16.840.1.091572.3.579.2.593 1951 Unknown [id number] 2.16.840.1.532542.3.579.2.727 1951 Unknown [id number] 2.16.840.1.526590.3.579.2.727 1951 Unknown [id number] 2.16.840.1.046535.3.579.2.1286 1951 Unknown [id number] 2.16.840.1.837564.3.579.2.1286 1951 Unknown [id number] 2.16.840.1.876780.3.579.2.1286 1951 Unknown [id number] 2.16.840.1.460656.3.579.2.1286 Social History Date Type Detail Facility Start: 05-12-2023 Tobacco smoking status Ex-smoker (fi nding) [facility] Tobacco smoking status Never [facility] Start: 07-03-2020 End: 11-08-2020 Sex Assigned At Male [facility] Start: 12-17-2022 End: 02-08-2025 Tobacco smoking status NHIS Never smoked tobacco [facility] Start: 12-17-2022 Tobacco use and exposure Smokeless tobacco non-user [facility] Start: 09-27-2023 End: 02-03-2025 Alcohol intake Ex-drinker (finding) [facility] Start: 07-03-2020 End: 11-08-2020 History of Social function [facility] How often to you hav e a drink containing alcohol? Never [facility] Start: 1950 Sex Assigned At Not on file P [facility] Start: 06-22-2020 End: 02-08-2025 Sex Male (finding) [facility] Start: 1950 Sex Assigned At Male F [facility] Functional Status Date Assessment Result Facility 05-12-2023 Functional Status N/A General Maya [facility] Clinical Notes 05-12-2023 to 02-03-2025 Joe Jang PA-C - 02/03/2025 2:00 PM Oneida Jang PA-C - 08/05/2024 3:00 PM ESTTelephone Encounter - Bhakti Nielsonleonel - 06/14/2024 11:00 AM Tyson Camacho MD - 02/12/2024 2:00 PM EDT Note Date & Type Note Facility 02-03-2025 History of Present illness Narrative [facility] Neurology Office Note 02/03/2025 9:16 AM Patient info: Efraín Johnson is a 74 y.o. male Account No.: [id number] Acct: : 1950 PCP: LIBRADO HELM MD Chief Complaint: Patient, 74 year old right hand dominant male, presents for follow up Neurological evaluation regarding Parkinsonism and Dementia. Last seen in the office on 08/05/24 Efraín is present in the office today with his daughter. Interval Hx: Continues Carbidopa-Levodopa 25-100 mg, 1 tab TID (6:00, 12:00, 18:00) 30-45 minutes prior to a small meal Continues Carbidopa-Levodopa CR 25-100 mg, 1 tab TID (6:00, 12:00, 18:00) 30-45 minutes prior to a small meal Parkinson's sxs have been okay altogether. Tremor has been reasonably well controlled. Ambulating pretty well without any assistive devices. Denies feeling stiff in the extremities. Denies difficulty with swallowing. At last office visit (08/05/24) continued Donepezil 10 mg HS and started Memantine with titration to 5 mg BID. In August (2023) he had syncopal spells, resulting in hospital admission. It was then Donepezil was discontinued. He has otherwise tolerated Memantine well. Cognition is not as good/clear as it was last office visit (08/05/24). Oriented to person and knows the month is January. He cannot remember what he ate earlier today. He cannot spell the word WORLD forwards or backwards. Prior Hx: The patient is a 74 y.o. male, an established patient, and is following up for gait instability and dementia. Patient is currently accompanied to the clinic by his daughter. He was last seen in clinic on 09/18/2023. Summary of Condition: The patient was initially admitted at [facility] 2021 with complaints of subacute left lower extremity weakness and gait instability. Subsequently was seen by the tele Stroke Service and had a stroke workup which was unremarkable. Was seen subsequently seen by the tele neurology service, and then had MRI of the entire spine which showed multilevel degenerative changes, however nothing that required urgent neurosurgical intervention. Was then transferred to [facility] for further evaluation and management. Was admitted under the primary neurology service([place]), where he was identified to have signs of parkinsonism, involuntary lower facial twitching consistent with extrapyramidal symptoms(tardive dyskinesias?). On initial evaluation at [facility], was not identified to have any lower [...] disturbances since being discharged from the hospital. Follow up 08/05/24 Carbidopa-Levodopa 25-100 mg, 1 tab TID (6:00, [...] is alert and oriented to person only. Past Medical Hx: See EMR Surgical Hx: [...] Negative Hem/Onc: Negative Allergy/immunology: Negative Vitals: BP: 117/76 HR: 76 Weight: 64 kg Physical Exam: General: well groomed, pleasant, [...] 30-45 minutes prior to a small meal Titrate Memantine to 10 mg BID Supportive care Follow up in the office in 6 months Electronically Signed by: Joe Jang PA-C 02/21/25 0053 documented in this encounter [facility] 10-25-2024 Note [facility] Consult Note Reason [...] at 5am and sleeps till 10am. 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 Hoover HPI: Efraín Johnson is a 74 y.o. with a past medical history of hypertension bradycardia and CKD was previously admitted at [facility] for sinus bradycardia. At that time [...] Use: Not At Risk (07/03/2020) Received from [facility], [facility] AUDIT-C Frequency of Alcohol Consumption: Never Average [...] Depression: Not at risk (09/18/2023) Received from [facility], [facility] PHQ-2 Total Score: 0 Housing Stability: Low Risk (09/03/2024) Housing Stability (more content not included)... [facility] 09-26-2024 Note Patient is here tofredrick y for to follow-up on his pacemaker [...] sit in the past. Follow-up with Dr. Hoover in 4 weeks [facility] 09-16-2024 Note Patient is here susi y for wound check after he underwent [...] x 4 dry gauze and loose tape [facility] 09-07-2024 Note DUAL CHAMBER PACEMAK ER IMPLANT & LOOP EXPLANT PROCEDURE NOTE DATE OF PROCEDURE: 09/07/24 PERFORMING PHYSICIAN: Dr. Missael Hoover CONSENT: Patient LOCATION: EP Lab PROCEDURE PERFORMED: 1. Implantation of dual chamber Pacemaker (Biotronik) 2. Ultrasound guided venous access 3. Removal of previously implanted LOOP (SpazioDati) INDICATIONS: 1. Sinus node dysfunction. 2. Syncope [...] using modified seldinger technique using a 5 Nauruan micro-puncture needle on two occasions and 0.35 [...] for the device above the muscle. 6 Nauruan Safesheaths were placed over the wire. An active fixation Biotronik pacing lead was then delivered through the 6Fsheath tothe right ventricle. After confirmation of lead position on orthogonal views (OLIVAS and [place]) to confirm septal position, the screw was [...] lead position on orthogonal views (OLIVAS and [place]), the screw was activated. Good sensing parameters, [...] discharge or sooner for any concerns. Missael Hoover MD Cardiac Electrophysiology [facility] 09-05-2024 Note Hospital Medicine Discharge Summary Final Discharge Diagnosis: Cardiac syncope Symptomatic bradycardia Sinus pauses Parkinson's disease Dementia without behavioral disturbance CKD stage IIIB Essential hypertension Admission Diagnosis: Cardiac syncope [R55] Hospital course: Efraín Johnson is an 74 y.o. male who came from [facility] with syncopal episode and sustained bradycardia. [...] clear etiology identified. Previous notes from Dr. Hoover suggested cardiac pauses as potential etiology. He [...] Medications These medications were sent to [facility] - [place], [place] - [address] [place] [address] [facility] [place] [address], [facility] [address] hydrALAZINE 25 mg tablet Efraín is allergic [...] Pending At Discharge: (more content not included)... [facility] 09-05-2024 Note Attestation signed by Norberto Ray [...] of recurrent syncopal episodes and follows with [facility] cardiology clinic outpatient. Patient [...] Maxx Hale MD, 10 mg at 09/05/24 0955 aspirin EC tablet 81 mg, 81 mg, oral, Daily, Maxx Hale MD, 81 mg at 09/05/24 0955 atropine syringe 0.5 mg, 0.5 mg, intravenous, PRN, Maxx Hale MD baclofen (Lioresal) tablet 10 mg, 10 mg, oral, Daily PRN, Maxx Hale MD carbidopa-levodopa (Sinemet CR) 25-100 mg ER tablet 1 tablet, 1 tablet, oral, TID AC, Maxx Hale MD, 1 tablet at 09/05/24 1134 carbidopa-levodopa (Sinemet) 25-100 mg per tablet 1 tablet, 1 tablet, oral, TID, Mxax Hale MD, 1 tablet at 09/05/24 1133 [Held by provider] heparin (porcine) injection 5,000 Units, 5,000 Units, subcutaneous, q8h HENRY, Maxx Hale MD, 5,000 Units at 09/04/24 0650 hydrALAZINE (Apresoline) tablet 25 mg, 25 mg, oral, TID, Ramesh Lawrence MD, 25 mg at 12/09/24 0955 melatonin tablet 5 mg, 5 mg, oral, Nightly PRN, Maxx Hale MD, 5 mg at 09/04/242014 memantine (Namenda) tablet 5 mg, 5 mg, oral, BID, Maxx Hale MD, 5 mg at 09/05/24954 potassium chloride CR (Klor-Con M20) ER tablet 20 mEq, 20 mEq, oral, Daily, Maxx Hale MD, 20 mEq at 09/05/24954 sennosides-docusate sodium (Jaye-Colace) 8.6-50 mg per tablet [...] Rate 76 At (more content not included)... [facility] 09-04-2024 Note Hospital Medicine Daily Progress Note - 09/04/2024 12:17 PM; Room: [address] [place] [address] Admission: 09/03/2024 7:05 PM; Length of stay: 1 days THE HOSPITALIST TEAM PREFERS TO USE [employer] [facility] FOR NON-URGENT COMMUNICATION 7AM-7PM. IF I DO NOT RESPOND WITHIN 20 MINUTES OR URGENT MATTERS, PLEASE CALL THROUGH THE FIELD SALES EXECUTIVE. FROM 7PM-7AM, PLEASE PAGE [phone](COVR). Code Status: Full Code Barriers to Discharge: [...] , FREET4 , CORTISOL , FEV1 , IRJ6FHA , DLCO , RVSP , HDL , LDL No results found for: VSVKEHYJ23 , IRON , TIBC , C3 , C4 , RONI , CANCA , ASO , PSA , CEA , CA125 , CA199 , AFP , CA153 Imaging ECG 12 lead Normal sinus rhythm Left axis deviation Possible Lateral infarct , age undetermined Abnormal ECG No previous ECGs available Discharge Planning Signed Ramesh Lawrence MD [facility] (more content not included)... [facility] 09-03-2024 Note Hospital Medicine History and Physical 09/03/2024 10:10 PM THE HOSPITALIST TEAM PREFERS TO USE [employer] [facility] FOR NON-URGENT COMMUNICATION 7AM-7PM. IF I DO NOT RESPOND WITHIN 20 MINUTES OR URGENT MATTERS, PLEASE CALL THROUGH THE FIELD SALES EXECUTIVE. FROM 7PM-7AM, PLEASE PAGE [phone](COVR). Chief Complaint Syncope History of Present Illness Efraín Johnson is an 74 y.o. male who came from [facility] with syncopal episode and sustained bradycardia. [...] clear etiology identified. Previous notes from Dr. Hoover suggested cardiac pauses as potential etiology. He [...] Chronic kidney disease, stage 3b (CMS/HCC) Dementia ([facility]/HCC) Parkinson disease ([facility]/HCC) Adenocarcinoma of prostate ([facility]/HCC) Symptomatic bradycardia Sinus pause Assessment and Plan 1. Cardiac syncope 2. Symptomatic bradycardia 3. Sinus pauses 4. New onset atrial fibrillation 5. Parkinson's disease 6. Dementia 7. CKD stage IIIb 8. Essential hypertension Admit to stepdown Monitor on telemetry Cardiology consulted, may be planning for pacemaker (more content not included)... [facility] 08-05-2024 History of Present illness Narrative [facility] Neurology Office Note 08/04/2024 1:37 PM Patient info: Efraín Johnson is a 74 y.o. male Account No.: [id number] Acct: : 1950 PCP: LIBRADO HELM MD [...] Condition: The patient was initially admitted at [facility] 2021 with complaints of subacute left lower extremity weakness and gait instability. Subsequently was seen by the tele Stroke Service and had a stroke workup which was unremarkable. Was seen subsequently seen by the tele neurology service, and then had MRI of the entire spine which showed multilevel degenerative changes, however nothing that required urgent neurosurgical intervention. Was then transferred to [facility] for further evaluation and management. Was admitted under the primary neurology service([place]), where he was identified to have signs of parkinsonism, involuntary lower facial twitching consistent with extrapyramidal symptoms(tardive dyskinesias?). On initial evaluation at [facility], was not identified to have any lower [...] PA-C 08/08/24 1033 documented in this encounter [facility] 06-14-2024 Miscellaneous Notes Patient's appointment needs to be rescheduled at this time due to provider out of clinic. Called and left message Date: 08/19 Provider:Dr Camacho Rescheduling Instructions: move to same time on 08/16 DaughterMere, stated she can ONLY come on Fridays. [facility] Asking if patient can see Jake Jang in [place] so that patient can come on a THURSDAY? DX: Parkinsonism, unspecified Parkinsonism type Please call Mere bauer, to reschedule: [phone] Ok with me if patient can be seen by Joe. Okay. - [facility] 1st attempt: Track Laying Supervisor contacted patient and left a voicemail to inform them that their transfer of care request was approved. Track Laying Supervisor provided callback number to schedule with their new provider or address any questions or concerns they may have. 2nd attempt: Track Laying Supervisor contacted patient and left a voicemail to inform them that their transfer of care request was approved. Track Laying Supervisor provided callback number to schedule with their new provider or address any questions or concerns they may have. documented in this encounter [facility] 06-14-2024 Telephone encounter Note Patient's appointment needs to be rescheduled at this time due to provider out of clinic. Called and left message Date: 08/19 Provider:Dr Camacho Rescheduling Instructions: move to same time on 08/16 [facility] 06-14-2024 Telephone encounter Note DaughterMere, stated she can ONLY come on Fridays. Showing Dr. Camacho is only in [place] on Tuesdays. Asking if patient can see Jake Jang in [place] so that patient can come on a THURSDAY? DX: Parkinsonism, unspecified Parkinsonism type Please call daughterMere, to reschedule: [phone] [facility] 06-14-2024 Telephone encounter Note Ok with me if patient can be seen by Joe. [facility] 06-14-2024 Telephone encounter Note Okay. - [facility] Work Phone: 06-14-2024 Telephone encounter Note 1st attempt: Track Laying Supervisor contacted patient and left a voicemail to inform them that their transfer of care request was approved. Track Laying Supervisor provided callback number to schedule with their new provider or address any questions or concerns they may have. [facility] 06-14-2024 Telephone encounter Note 2nd attempt: Track Laying Supervisor contacted patient and left a voicemail to inform them that their transfer of care request was approved. Track Laying Supervisor provided callback number to schedule with their new provider or address any questions or concerns they may have. [facility] 06-01-2024 Note [place] [facility] - [facility] Subjective Efraín Johnson is a 74 y.o. year old male patient being seen for syncope, Hyperlipidemia and Hypertension (Pt is here for a six month follow up.) Patient Active Problem List Diagnosis Gait instability Left leg weakness Mild dementia with agitation ([facility]/HCC) Non-healing ulcer of right foot, limited to breakdown of skin ([facility]/HCC) Parkinsonism ([facility]/HCC) Prostate cancer ([facility]/HCC) Spondylosis of cervical spine Spondylosis of lumbar region without myelopathy or radiculopathy Sundowning Tardive dyskinesia Urinary retention Bradycardia Abnormal abdominal CT scan Acute biliary pancreatitis with uninfected necrosis BMI 29.0-29.9,adult Chronic cholecystitis with calculus Chronic obstructive pulmonary disease ([facility]/HCC) CKD (chronic kidney disease) Elevated PSA GERD (gastroesophageal reflux disease) HTN (hypertension) Hyperlipidemia Gout Hypokalemia Infected sebaceous cyst Lumbar disc disease with radiculopathy Metabolic encephalopathy Overweight Rectal bleeding Right foot drop Symptomatic cholelithiasis Syncope and collapse Chronic kidney disease, stage 3b ([facility]/HCC) HPI Patient states that he has been [...] Diagnosis Date Bradycardia Chronic kidney disease Dementia ([facility]/HCC) Hypokalemia Hyponatremia Parkinson disease Past Surgical History: [...] rate and bloo (more content not included)... [facility] 05-17-2024 Miscellaneous Notes Medication refill requested via fax from [facility] Medication: Carbidopa-levodopa 25-100tab Last filled: 05/13/24 Last seen: 02/12/24 Next appt: 08/19/24 documented in this encounter [facility] 05-17-2024 Telephone encounter Note Medication refill requested via fax from [facility] Medication: Carbidopa-levodopa 25-100tab Last filled: 05/13/24 Last seen: 02/12/24 Next appt: 08/19/24 [facility] 02-12-2024 History of Present illness Narrative Images from the original note were not included. [id number] [facility] [id number] Patient: Efraín Johnson Date of : 1950 [...] Condition: The patient was initially admitted at [facility] 2021 with complaints of subacute left lower extremity weakness and gait instability. Subsequently was seen by the tele Stroke Service and had a stroke workup which was unremarkable. Was seen subsequently seen by the tele neurology service, and then had MRI of the entire spine which showed multilevel degenerative changes, however nothing that required urgent neurosurgical intervention. Was then transferred to [facility] [place] for further evaluation and management. Was admitted under the primary neurology service([place]), where he was identified to have signs of parkinsonism, involuntary lower facial twitching consistent with extrapyramidal symptoms(tardive dyskinesias?). On initial evaluation at [facility], was not identified to have any lower [...] to display PTSD: No data to display [place]: No data to display NATTY-10: No data to display Past Medical, Family, Surgical, and Social History Update: The following portions of the patient's history were reviewed and updated as appropriate: allergies, current medications, past family history, past medical history, past social history, past surgical history and problem list. Past Medical History: Diagnosis Date Anxiety Chronic kidney disease Dementia ([facility]-HCC) Hypertension Family History Problem Relation Age of [...] sundowning, anxiety, who was initially admitted at [facility] in October 2021 with complaints of [...] urgent neurosurgical intervention. Was then transferred to [facility] for further evaluation and management. Was admitted under the primary neurology service([place]), where he was identified to have signs of extrapyramidal symptoms(parkinsonism with mild bradykinesia L>R, involuntary lower facial twitching consistent with tardive dyskinesias). On initial evaluation at [facility], was not identified to have any lower [...] cancer (CMS-HCC) Urinary retention Other Gait instability Sundowning Follow-up: 6 months. Mel Camacho MD Vascular Neurologist [facility] Neurology Clinic # [phone] I have personally participated in the care of this patient. I have reviewed all pertinent clinical information, including history, physical exam, investigation results and plan. 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 Important Notice: This note was created with the assistance of a speech recognition program. While intending to generate a timely document that accurately reflects the content of the encounter, no guarantee can be provided that every grammatical or spelling mistake has been or will be identified or corrected. Thank you for your understanding. documented in this encounter [facility] 01-20-2024 Miscellaneous Notes Medication Refill request received via fax from [facility]. Medication: Baclofen Last filled: 10/15/23 Last seen:09/18/23 Next appt: 02/12/24 documented in this encounter [facility] 01-20-2024 Telephone encounter Note Medication Refill request received via fax from [facility]. Medication: Baclofen Last filled: 10/15/23 Last seen:09/18/23 Next appt: 02/12/24 [facility] 09-18-2023 History of Present illness Narrative Images from the original note were not included. [id number] [facility] [address] [facility] [id number] Patient: Efraín Johnson Date of : 1950 [...] Condition: The patient was initially admitted at [facility] 2021 with complaints of subacute left lower extremity weakness and gait instability. Subsequently was seen by the tele Stroke Service and had a stroke workup which was unremarkable. Was seen subsequently seen by the tele neurology service, and then had MRI of the entire spine which showed multilevel degenerative changes, however nothing that required urgent neurosurgical intervention. Was then transferred to [facility] for further evaluation and management. Was admitted under the primary neurology service([place]), where he was identified to have signs of parkinsonism, involuntary lower facial twitching consistent with extrapyramidal symptoms(tardive dyskinesias?). On initial evaluation at [facility], was not identified to have any lower [...] to display PTSD: No data to display [place]: No data to display NATTY-10: No data to display Past Medical, Family, Surgical, and Social History Update: The following portions of the patient's history were reviewed and updated as appropriate: allergies, current medications, past family history, past medical history, past social history, past surgical history and problem list. Past Medical History: Diagnosis Date Anxiety Chronic kidney disease Dementia ([facility]) Hypertension Family History Problem Relation Age of [...] sundowning, anxiety, who was initially admitted at [facility] in October 2021 with complaints of [...] urgent neurosurgical intervention. Was then transferred to [facility] for further evaluation and management. Was admitted under the primary neurology service([place]), where he was identified to have signs of extrapyramidal symptoms(parkinsonism with mild bradykinesia L>R, involuntary lower facial twitching consistent with tardive dyskinesias). On initial evaluation at [facility], was not identified to have any lower [...] 6 months. Mel Camacho MD Vascular Neurologist [facility] Neurology Clinic # [phone] I have personally participated in the care of this patient. I have reviewed all pertinent clinical information, including history, physical exam, investigation results and plan. 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 Important Notice: This note was created with the assistance of a speech recognition program. While intending to generate a timely document that accurately reflects the content of the encounter, no guarantee can be provided that every grammatical or spelling mistake has been or will be identified or corrected. Thank you for your understanding. documented in this encounter [facility] 05-12-2023 Note Chief Complaint consultation for diverticulitis HPI Staff 73 year old male presents on consultation from Dr. Helm for diverticulitis. Presented to [facility] ED 04/04 with complaint of rectal bleeding. [...] Lumbar discectomy ( (more content not included)... [facility] Comment on above: Result Comment: Elec tronically Signed By: GLENDA ARVIZU, Baljit Estrada\Date and Time Signed: 05/12/23 17:27 EDT Evaluation + Plan note No data available for this section General Surgery [facility] Evaluation note Diagnosis Parkinsonism, unspecified Parkinsonism type- [...] whether sciatica present [facility] Parkinsonism, unspecified Parkinsonism [...] neoplasm of prostate [facility] Diagnosis Parkinsonism, unspecified Parkinsonism type (CMS-HCC) [facility] Diagnosis Parkinsonism, unspecified Parkinsonism type (CMS-HCC)- Primary Mild dementia with agitation, unspecified dementia type (CMS-HCC) [facility] Diagnosis Mild dementia with agitation, unspecified dementia type (CMS-HCC) [facility] Diagnosis Onset Date Resolution Status Admit Date Chronic kidney disease, stag e IV (severe) acute February 08, 2025 8 :35am Hypertensive nephropathy acute February 08, 2025 8:35am Hypokalemia acute February 08 8:35am [facility] Work Phone: Evaluation note* Diagnosis Parkinsonism, unspecified Parkinsonism type (CMS-HCC)- Primary Mild dementia with agitation, unspecified dementia type (CMS-HCC) [facility] No data available for this section General Surgery [place] InstructionsNot on filedocumented in this encounter [facility] filedocumented in this encounter [facility] filedocumented in this encounter [facility] filedocumented in this encounter [facility] on filedocumented in this encounter [facility] on filedocumented in this encounter [facility] on filedocumented in this encounter [facility] filedocumented in this encounter [facility] No data available for this section General Surgery [place] Summary Purpose Family History No Family History Records Found Relationship Condition Age at Onset Recorded Date/T tom father Unknown mother Unknown Advance Directives No Advanced Directives Records FoundDocuments on File Type Date Recorded 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 Living Will 09/18/2023 1:20 PM POA/Livin g Will 12/26/22 Advance Directive Response Recorded Date/ Time Advance Directives No January 10 025 4:32pm Chief Complaint and Reason for Visit Chief Complaint Admit Date CKD 4 February 08, 2025 8:35a m Reason for Visit Admit Date Chronic kidney disease, stage IV (severe ) February 08, 2025 8:35am Hypertensive nephropathy February 08, 2025 8:35am Hypokalemia February 08, 2025 8:35a m Additional Source Comments (unrecognized sect ion and content) No Status Records FoundNo Status Records FoundNo Status Records FoundNo Status Records FoundNo Status Records Found INFORMATION SOURCE (unrecogn ized section and content) DATE CREATED AUTHOR 02/11/2023 [facility] DATE CREATED AUTHOR AUTHOR'S ORGANIZ ATION 06/02/2023 [facility] DATE CREATED AUTHOR AUTHOR'S ORGANIZ ATION 08/07/2024 [facility] DATE CREATED AUTHOR AUTHOR'S ORGANIZ ATION 02/05/2025 [facility] DATE CREATED AUTHOR AUTHOR'S ORGANIZ ATION 03/08/2025 [facility] Patient Care team informatio n (unrecognized section and content) Digital Project Manager Relationship Specialty Start Date End Date Librado Helm MD [address] [phone] PCP - General Family Medicine 07/03/20 Digital Project Manager Relationship Specialty Start Date End Date Librado Helm MD [address] [phone] PCP - [facility] Medicine 07/03/20 Digital Project Manager Relationship Specialty Start Date End Date Librado Helm MD [address] [phone] PCP - [facility] Medicine 07/03/20 Digital Project Manager Relationship Specialty Start Date End Date Librado Helm MD PCP - [facility] Medicine 07/03/20 Digital Project Manager Relationship Specialty Start Date End Date Librado Helm MD PCP - [facility] Medicine 07/03/20 Digital Project Manager Relationship Specialty Start Date End Date Librado Helm MD PCP - [facility] Family Medicine 07/03/20 Team Status: Active Member Role Status Dates Librado Helm MD Primary Care Provider Active Team Status: Inactive Member Role Status Dates Librado Helm MD Primary Care Provider Active Start: February 08, 2025 End: February 08, 2025 Kim Molina MD Attending Provider Active Star t: February 08, 2025 End: February 08, 2025 Digital Project Manager Relationship Specialty Start Date End Date Librado [...] on 02/11 Reason Comments Med Change Request Reason Comments Follow-up Patient is here toda y for a follow up apt for dx: Parkinsonism, unspecified Parkinsonism type Goals (unrecognized section and content) Goals may be documented in a n alternate section FOR RECORDS PERTAINING TO PATIENTS WHO ARE [...] BE BASED ON THE PRIMARY CLINICAL RECORDS. [facility] [employer] [facility] provides no warranty or guarantee of the accuracy or completeness of information in this document.
[2025-04-29 11:28] LABS: Hematocrit 46.0 % (42.0-54.0); Hemoglobin 14.8 g/dL (14.0-18.0); Mean Corpuscular HGB Conc 32.2 g/dL (29.9-35.2); Mean Corpuscular Hemoglobin 27.8 pg (25.9-34.0); Mean Corpuscular Volume 86.5 fL (80.0-94.0); Platelet Count 260 10^3/uL (150-450); Red Blood Count 5.32 10^6/uL (4.70-6.10); White Blood Count 7.4 10^3/uL (4.0-11.0)
[2025-04-29 11:34] LABS: Glucose Urine UA NEGATIVE (NEGATIVE)
[2025-04-29 11:50] LABS: Microalbum Creatinine Ratio Ur 20.3 mg/g (0.0-29.9); Protein Creatinine Ratio Urine 0.09; Total Protein Urine Random <6.0 mg/dL (<=11.9)
[2025-04-29 12:04] LABS: Albumin Level 3.9 g/dL (3.4-5.0); Anion Gap 13.0; Blood Urea Nitrogen 23.0 mg/dL (7.0-18.0); Calcium 8.9 mg/dL (8.5-10.1); Carbon Dioxide 25.0 mmol/L (21.0-32.0); Chloride 101 mmol/L (98-107); Estimated GFR (African America 44 (>=60 mL/min/1.73m^2); Estimated GFR (Non-African Ame 36 (>=60 mL/min/1.73m^2); Glucose 96 mg/dL (74-106); Magnesium 1.8 mg/dL (1.8-2.4); Potassium 4.0 mmol/L (3.5-5.1); Sodium 135 mmol/L (136-145); Uric Acid 6.9 mg/dL (3.5-7.2)
== END 2025-04-29 10:53 | disposition home or self-care (01) ==
LOC: US 10:52
PROVIDERS: PCP Family Medicine; Visit Provider Internal Medicine Nephrology
DX: E87.6 Hypokalemia (principal); I12.9 Hypertensive chronic kidney disease with stage 1 through stage 4 chronic kidney disease, or unspecified chronic kidney disease; N18.4 Chronic kidney disease, stage 4 (severe); N28.1 Cyst of kidney, acquired
CPT/HCPCS: 36415; 76775; 80069; 81003; 82043; 82306; 82570; 83735; 83970; 84156; 84550; 85027